=== PATIENT | female | born 1935 | race Caucasian/White ===

== ENCOUNTER 2019-03-27 15:37 | Emergency (ER) | payer MEDICARE, SELFPAY ==
[2019-03-27] VITALS (8 sets, daily range): BP systolic 116–141; BP diastolic 61–73; PULSE 96–127; RESP 20–22; TEMP 37.1; O2SAT 86–100
--- NOTE | ~2019-03-27 | CT_ITS ---
EXAMINATION: CTA chest PE protocol DATE: 03/27/2019 18:28 INDICATION: Shortness of breath and hypoxia TECHNIQUE: Computed tomography angiography (CTA) of the chest was performed with 100 mL Omnipaque-350 intravenous contrast timed to evaluate the pulmonary arteries. Coronal maximum intensity projection 3D-reconstructions were created by the technologist. The dose-length product (DLP) was 275.55 mGy-cm. Automated exposure control and iterative reconstruction technique were employed. COMPARISON: None. FINDINGS: The pulmonary arteries are well-opacified. There is a saddle pulmonary embolism as well as multiple emboli in the proximal pulmonary arterial branches of all lobes of the lungs. There is strai ghtening of the interventricular septum. There is mild atelectasis. No focal airspace opacity is iden tified. There is no pleural effusion or pneumothorax. Cardiomegaly is noted. There are surgical linder es of the left upper quadrant. There are healing bilateral rib fractures. There is moderate thoracic spondylosis. A triple lead cardiac pacemaker of the left chest wall ends with leads in expected loca tions. There are no pathologically enlarged thoracic lymph nodes. IMPRESSION: 1. Saddle embolism and bilateral central pulmonary emboli involving all lobes of the lungs. Associate d straightening of the interventricular septum could reflect right heart strain. These findings were discussed with Dr. Riley Lilly MD in the Emergency Department at 1840 hours on 03/27/2019. Reviewed, dictated and finalized at location A. [employer] IMPRESSION: 1. Saddle embolism and bilateral central pulmonary emboli involving all lobes o f the lungs. Associated straightening of the interventricular septum could refl ect right heart strain. These findings were discussed with Dr. Riley escoto MD in the Emergency Department at 1840 hours on 03/27/2019.
--- NOTE | ~2019-03-27 | XR_ITS ---
EXAMINATION: XR chest 2V DATE: 03/27/2019 16:49 INDICATION: Shortness of breath TECHNIQUE: AP and lateral views of the chest are obtained. COMPARISON: 12/25/2013 FINDINGS: The lungs are free of acute opacities. There is no pleural effusion or pneumothorax. The he art size is normal. A triple lead cardiac pacemaker of the left chest wall ends with leads in expecte d locations. Surgical changes are noted in the left upper quadrant. There is moderate thoracic spondy losis. IMPRESSION: 1. No acute cardiopulmonary abnormality. Reviewed, dictated and finalized at location A. [employer]
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
--- NOTE | 2019-03-27 16:27 | ECG_ITS ---
Measurements Intervals [place] Rate: 0 P: OR: 0 QRS: QRSD: 0 T: QT: 0 QTc: 0 Interpretive Statements ELECTRONIC VENTRICULAR PACEMAKER FUSION COMPLEX BASELINE ARTIFACT- I, II, III, AVR, AVL, AVF, V1-V6 NO FURTHER INTERPRETATION IS POSSIBLE ATYPICAL ECG Electronically Signed On 03-28-2019 8:25:30 [employer] by Ernie Albrecht D.O.
--- NOTE | 2019-03-27 16:41 | PC.NURSE ---
PT TO XRAY PER WHEELCHAIR.
[2019-03-27 17:15] LABS: Base Excess ABG -2.3 mmol/L (0-2); HCO3 ABG 20.5 mmol/L (23-29); Oxygen Content ABG 15.3 %vol (16.0-22.0); Oxygen Saturation ABG 90.8 % (95-97); Oxyhemoglobin 90.8 % (94-100); PCO2 ABG 29.4 mmHg (35-45); PO2 ABG 58.9 mmHg (75-85); pH ABG 7.46 (7.35-7.45)
[2019-03-27 17:19] LABS: Device NASAL CANNULA; Modified Allen's Test Pass; Site Drawn LEFT RADIAL
[2019-03-27 17:19] LABS: Basophils Absolute Auto 0.02 K/mm3 (0.00-0.10); Basophils Percent Auto 0.3 % (0.0-1.0); Eosinophils Absolute Auto 0.04 K/mm3 (0.02-0.50); Eosinophils Percent Auto 0.5 % (1.0-6.0); Hematocrit 34.5 % (35.0-42.0); Hemoglobin 11.4 g/dL (11.7-13.8); Immature Granulocyte Absolute 0.03 K/mm3 (0.00-0.00); Immature Granulocyte Percent A 0.4 % (0.0-0.0); Lymphocytes Absolute Auto 0.91 K/mm3 (1.10-4.50); Mean Corpuscular Hemoglobin 31.7 pg (27.0-31.0); Mean Corpuscular Volume 95.8 fL (78.0-102.0); Mean Platelet Volume 8.9 fl (9.2-11.8); Monocytes Absolute Auto 0.45 K/mm3 (0.10-0.90); Monocytes Percent Auto 5.9 % (2.0-11.0); Neutrophils Absolute Auto 6.1 K/mm3 (1.7-7.2); Neutrophils Percent Auto 80.9 % (50.0-70.0); Platelet Count Result 239 K/mm3 (150-420); Red Cell Distribution Width 13.2 % (11.6-14.4); White Blood Count 7.6 K/mm3 (4.8-10.8)
[2019-03-27 17:37] LABS: Alanine Aminotransferase 17 U/L (14-59); Albumin Level 3.3 g/dL (3.4-5.0); Alkaline Phosphatase 87 U/L (46-116); Anion Gap 14.3 mmol/L (7-16); Aspartate Amino Transferase 21 U/L (15-37); Bilirubin,Total 0.4 mg/dL (0.00-1.00); Blood Urea Nitrogen 31 mg/dL (7-18); Calcium 8.8 mg/dL (8.5-10.1); Carbon Dioxide 26 mmol/L (21-32); Chloride 104 mmol/L (98-108); Estimated CRCL calculation 31 ml/min; Estimated Glomerular Filt Rate 43; Glucose 119 mg/dL (70-99); Osmolality Calculated 299 mOsm/kg (285-295); Potassium 3.3 mmol/L (3.5-5.1); Sodium 141 mmol/L (136-145); Total Protein 7.8 g/dL (6.4-8.2)
[2019-03-27 17:40] LABS: Troponin I 0.12 ng/mL (0.00-0.056)
[2019-03-27] MEDS: IPRATROPIUM 0.5 MG/ALBUTEROL SULFATE 2.5 MG AMPUL.NEB 3 ML INHALATION (17:40)
[2019-03-27 17:41] LABS: Influenza Control Valid (Valid)
[2019-03-27 17:42] LABS: BNP 209 pg/mL (0-100); Partial Thromboplastin Time 26.8 SEC (22.3-31.6); Prothrombin Time 10.7 Seconds (9.64-11.0)
[2019-03-27 17:57] LABS: D Dimer 25.37 mg/L (0.19-0.50)
--- NOTE | 2019-03-27 18:15 | PC.NURSE ---
PT TO XRAY FOR CT
--- NOTE | 2019-03-27 18:24 | PC.NURSE ---
PT RETURNED TO ROOM
[2019-03-27 18:36] LABS: Appearance Urine Clear (Clear); Bilirubin Urine Negative (Negative); Color Urine Yellow (Yellow); Glucose Urine UA Negative (Negative); Ketones Urine Negative (Negative); Leukocyte Esterase Ur Trace LEU/UL (Negative); Nitrate Urine Negative (Negative); Protein Urine Negative (Negative); Urobilinogen Urine 0.2 mg/dL (0.2-1.0)
--- NOTE | 2019-03-27 18:38 | PC.NURSE ---
1810 INCREASED SHORTNESS OF BREATH WITH GETTING UP TO COMMODE. 1820 IMPROVED BREATHING PER PT. DRINK OF WATER GIVEN PER REQUEST.
[2019-03-27 18:41] LABS: Add Urine Microscopic? YES; Bacteria Urine 1+ /hpf; Blood Urine Trace-Intact (Negative); RBC Urine 0-2 /hpf (0-2); Squamous Epithelial Cell Urine Few /hpf (Few); WBC Urine 0-3 /hpf (0-3)
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
--- NOTE | 2019-03-27 18:48 | PC.NURSE ---
CALL TO [facility], SPOKE WITH TYLER. WILL CALL BACK.
[2019-03-27] MEDS: ENOXAPARIN 1 MG/KG 75 MG SUB-Q (20:00)
[2019-03-27 20:21] LABS: Troponin I 0.29 ng/mL (0.00-0.056)
--- NOTE | 2019-03-27 20:26 | PC.NURSE ---
PT TO TRANSFER TO [facility] ,
--- NOTE | 2019-03-27 20:42 | PC.NURSE ---
[facility] CALLED FOR TRANSFER, DAUGHTER NOTIFIED OF ROOM LOCATION AT [facility]. PT REQUEST TO GO TO [facility].
--- NOTE | 2019-03-27 21:03 | PC.NURSE ---
[facility] HERE REPORT TO MARTINE, PT LOADED TO COT. ALERT AND STABLE.
== END 2019-03-27 21:03 | disposition short-term general hospital (02) ==
PROVIDERS: Emergency Provider Emergency Medicine; PCP Family Medicine
DX: I26.99 Other pulmonary embolism without acute cor pulmonale (principal); R09.02 Hypoxemia; R79.9 Abnormal finding of blood chemistry, unspecified; I48.91 Unspecified atrial fibrillation; K21.9 Gastro-esophageal reflux disease without esophagitis; E78.5 Hyperlipidemia, unspecified; I10 Essential (primary) hypertension; E03.9 Hypothyroidism, unspecified; Z87.891 Personal history of nicotine dependence
CPT/HCPCS: 36415; 36600; 71046; 71275; 80053; 81001; 82805; 83880; 84484; 85025; 85380; 85610; 85730; 87040; 87804; 93005; 94640; 96372; 99285; J1650; Q9965

== ENCOUNTER 2019-04-18 09:55 | Outpatient (RCR) | payer MEDICARE, SELFPAY ==
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
--- NOTE | 2019-05-10 16:55 | PCPTNOTE ---
05/10/19-pt cancelled apt, stating she has to have surgery on her ankle.-HM
--- NOTE | 2019-06-21 10:33 | PCPTNOTE ---
patient had surgery on the ankle in May. she has been at the [facility] in [place], [place] since. she just got cast removed yesterday and is 50% wb. she sees her md on the and is hoping to get home. She will call us if she gets orders for therapy. JUVENAL
== END 2019-05-04 08:14 | disposition home or self-care (01) ==
LOC: CHSPT 09:55
DX: S82.841A Displaced bimalleolar fracture of right lower leg, initial encounter for closed fracture (principal); M19.071 Primary osteoarthritis, right ankle and foot; S92.521A Displaced fracture of middle phalanx of right lesser toe(s), initial encounter for closed fracture
CPT/HCPCS: 97016; 97110; 97161

== ENCOUNTER 2019-07-13 13:07 | Outpatient (RCR) | payer MEDICARE, SELFPAY ==
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
== END 2019-09-15 10:30 | disposition home or self-care (01) ==
LOC: CHSPT 13:07
DX: S82.51XD Displaced fracture of medial malleolus of right tibia, subsequent encounter for closed fracture with routine healing (principal)
CPT/HCPCS: 97110; 97112; 97140; 97161; 97530

== ENCOUNTER 2019-08-19 11:14 | Outpatient (CLI) | payer MEDICARE, SELFPAY ==
[2019-08-19 12:59] LABS: Thyroid Stimulating Hormone Reflex 4.04 u/IU/mL (0.36-3.74)
[2019-08-19 13:14] LABS: Free T4 Free Thyroxine Reflex 1.04 ng/dL (0.76-1.46)
== END 2019-08-19 11:15 | disposition home or self-care (01) ==
LOC: CHSLAB 11:16
PROVIDERS: PCP Family Medicine; Visit Provider Family Medicine
DX: I48.91 Unspecified atrial fibrillation (principal)
CPT/HCPCS: 36415; 84439; 84443

== ENCOUNTER 2019-11-14 01:15 | Outpatient (CLI) | payer MEDICARE, SELFPAY ==
[2019-11-14 18:12] LABS: SARS-CoV-2 RNA PCR Negative
== END 2019-11-14 01:16 | disposition home or self-care (01) ==
LOC: ANHCOVIDDT 01:15
PROVIDERS: PCP Family Medicine; Visit Provider Internal Medicine Gastroenterology
DX: Z20.828 Contact with and (suspected) exposure to other viral communicable diseases (principal)
CPT/HCPCS: 87635; C9803; U0003

== ENCOUNTER 2019-11-16 02:32 | Day surgery (SDC) | payer MEDICARE, SELFPAY ==
[2019-11-09 14:28] VITALS: BMI 29.6
--- NOTE | 2019-11-16 07:21 | WPDANESEPPF ---
Anes - Initial Pre Proc Eval Procedure: Operation Date: 11/16/19 10:15 Proposed Procedures p Esophagogastroduodenoscopy - Fredy Aamya MD Date/Time: 11/16/19 07:21 Surgeon: Fredy Amaya MD Pre Op Diagnosis: GERD, Nausea, Vomiting Patient Data Age: 84 Gender: F Height: 1.63 m Weight: 78.3 kg Allergies Allergy/AdvReac Type Severity Reaction Status Date / Time acetaminophen [Vicodin] Allergy Intermediate Unknown Verified 11/16/19 09:26 levofloxacin Allergy Intermediate Unknown Verified 11/16/19 09:26 oxycodone Allergy Intermediate Unknown Verified 11/16/19 09:26 Penicillins Allergy Intermediate Unknown Verified 11/16/19 09:26 hydrocodone AdvReac Severe NAUSEA AND Verified 11/16/19 09:26 VOMITING Home Medications Medication Instructions Recorded Confirmed Type Centrum Silver Women 1 cap PO DAILY 03/27/19 11/09/19 History aspirin [Aspirin Low Dose] 81 mg PO DAILY 03/27/19 11/09/19 History metoprolol succinate 50 mg PO DAILY 03/27/19 11/16/19 History rosuvastatin 40 mg PO DAILY 03/27/19 11/09/19 History triamterene-hydrochlorothiazid 1 cap PO DAILY 03/27/19 11/16/19 History apixaban 5 mg tablet 5 mg PO BID 08/19/19 11/16/19 History pantoprazole 40 mg tablet,delayed 40 mg PO QAM 42 Days #42 tablet 10/31/19 11/09/19 Rx release levothyroxine 100 mcg tablet See Rx Instructions .ROUTE 11/07/19 11/16/19 Rx .COMPLEX #90 tablet Patient hx anesthesia problems: none Family hx anesthesia problems: none PMFSH Social History Social History Smoking status: Former smoker Tobacco type: cigarettes Smoking end date: 02/10/72 Substance use: former Substance use type: does not use Other substance usage details: QUIT SMOKING IN 1972. Living arrangements: with family Gender identity (if verbalized by the patient): Female Sexual Orientation (if Verbalized by the Patient): Straight or Heterosexual Spiritual care concerns: No Anes - Eval Final PreProcedure Day of Procedure 11/16/19 07:21 Patient weight: overweight Heart: regular rate and rhythm Lungs: clear to auscultation and normal air movement Airway: Mallampati scale class III Neurological: alert and oriented Last oral intake: >/= 8 hours ASA classification: IV Emergent: no Anesthetic plan: proceed Anesthesia type and monitoring: general GIVS and standard monitoring Informed Consent: The patient's anesthetic plan and its attendant risks and benefits were discussed with the patient/family/POA. Questions were solicited and answers provided to the satisfaction of the patient/family/POA.
[2019-11-16 09:27] VITALS: BP 146/90; PULSE 72; RESP 16; TEMP 36.6; O2SAT 99; BMI 29.5
[2019-11-16] MEDS: LACTATED RINGERS 1,000 ML 150 ML IV CONT (09:44)
--- NOTE | 2019-11-16 10:44 | WPDHPUPDATE1 ---
History and Physical Update Update Date/Time: 11/16/19 10:44 History and Physical has been reviewed, including an updated exam of the patient. There are NO changes in the patient's condition. Risks, benefits, and alternatives have been discussed and questions answered. Patient agrees to proceed with procedure.
[2019-11-16 10:46] VITALS: BP 139/71; PULSE 69; RESP 27; O2SAT 99
[2019-11-16 10:56] VITALS: BP 130/76; PULSE 63; RESP 24; O2SAT 99
[2019-11-16 11:06] VITALS: BP 154/83; PULSE 64; RESP 20; O2SAT 99
== END 2019-11-16 11:20 | disposition home or self-care (01) ==
PROVIDERS: PCP Family Medicine; Visit Provider Internal Medicine Gastroenterology
PROC: 0DJ08ZZ Inspection of Upper Intestinal Tract, Via Natural or Artificial Opening Endoscopic (ICD-10-PCS; CPT 43235; principal; 2019-11-16 10:15)
DX: K21.00 Gastro-esophageal reflux disease with esophagitis, without bleeding (principal); K44.9 Diaphragmatic hernia without obstruction or gangrene; K29.50 Unspecified chronic gastritis without bleeding; K31.2 Hourglass stricture and stenosis of stomach; Z98.84 Bariatric surgery status; I48.91 Unspecified atrial fibrillation; I10 Essential (primary) hypertension; E78.5 Hyperlipidemia, unspecified; E03.9 Hypothyroidism, unspecified; Z86.73 Personal history of transient ischemic attack (TIA), and cerebral infarction without residual deficits; Z79.01 Long term (current) use of anticoagulants; Z79.82 Long term (current) use of aspirin; Z86.711 Personal history of pulmonary embolism; Z87.891 Personal history of nicotine dependence
CPT/HCPCS: 43245; 43239; 88305; C1726; J2704; J7120

== ENCOUNTER 2020-01-16 13:49 | Outpatient (CLI) | payer MEDICARE, SELFPAY ==
--- NOTE | ~2020-01-16 | XR_ITS ---
EXAMINATION: XR knee LT 3V DATE: 01/16/2020 14:05 INDICATION: Left knee pain. TECHNIQUE: 3 views of left knee were obtained. COMPARISON: Left knee radiograph 07/13/18 FINDINGS: There is a total left knee arthroplasty without patellar resurfacing in near-anatomic align ment. No fracture. No periprosthetic lucency to suggest loosening or infection. There is a small knee joint effusion. IMPRESSION: 1. Total left knee arthroplasty in near-anatomic alignment. 2. Small left knee joint effusion. Reviewed, dictated and finalized at location B. [employer]
== END 2020-01-16 13:50 | disposition home or self-care (01) ==
PROVIDERS: PCP Family Medicine; Visit Provider Family Medicine
DX: M25.562 Pain in left knee (principal)
CPT/HCPCS: 73562

== ENCOUNTER 2020-01-23 07:48 | Outpatient (RCR) | payer MEDICARE, SELFPAY ==
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
== END 2020-03-06 09:43 | disposition home or self-care (01) ==
LOC: CHSPT 07:48
PROVIDERS: PCP Family Medicine; Visit Provider Family Medicine
DX: M54.5 Low back pain (principal); G89.29 Other chronic pain; M79.671 Pain in right foot
CPT/HCPCS: 97110; 97112; 97140; 97162; 97530

== ENCOUNTER 2020-06-14 10:21 | Outpatient (NON) | payer MEDICARE, SELFPAY | END 2020-06-14 10:22 | disposition home or self-care (01) | PROVIDERS: PCP Family Medicine; Visit Provider Family Medicine | DX: N39.0 Urinary tract infection, site not specified (principal) | CPT/HCPCS: 87086; 87088; 87147; 87186 ==

== ENCOUNTER 2020-06-26 15:51 | Outpatient (CLI) | payer MEDICARE, SELFPAY ==
[2020-06-26 16:09] LABS: Hematocrit 39.3 % (35.0-42.0); Hemoglobin 12.3 g/dL (11.7-13.8); Mean Corpuscular HGB Conc 31.3 g/dL (32.0-36.0); Mean Corpuscular Volume 89.3 fL (78.0-102.0); Mean Platelet Volume 8.6 fl (9.2-11.8); Platelet Count Result 210 K/mm3 (150-420); Red Cell Distribution Width 16.7 % (11.6-14.4); White Blood Count 4.8 K/mm3 (4.8-10.8)
[2020-06-26 16:34] LABS: Hemoglobin A1C 5.9 % (<5.7)
[2020-06-26 17:22] LABS: Alanine Aminotransferase 19 U/L (14-59); Albumin Level 3.3 g/dL (3.4-5.0); Alkaline Phosphatase 95 U/L (46-116); Anion Gap 9 mmol/L (8-16); Aspartate Amino Transferase 21 U/L (15-37); Bilirubin,Total 0.4 mg/dL (0.00-1.00); Blood Urea Nitrogen 31 mg/dL (7-18); Carbon Dioxide 28 mmol/L (21-32); Chloride 103 mmol/L (98-108); Estimated Glomerular Filt Rate 45; Ferritin 24 ng/mL (8-252); Glucose 89 mg/dL (70-99); Osmolality Calculated 295 mOsm/kg (285-295); Potassium 4.2 mmol/L (3.5-5.1); Sodium 140 mmol/L (136-145); Total Protein 7.3 g/dL (6.4-8.2); Vitamin B12 708 pg/mL (193-986)
[2020-06-26 17:23] LABS: Folic Acid > 20.0 ng/mL (8.6->20); Thyroid Stimulating Hormone Reflex 0.88 u/IU/mL (0.36-3.74)
== END 2020-06-26 15:52 | disposition home or self-care (01) ==
LOC: CHSLAB 15:53
PROVIDERS: PCP Family Medicine; Visit Provider Family Medicine
DX: E53.8 Deficiency of other specified B group vitamins (principal); G62.9 Polyneuropathy, unspecified; E11.9 Type 2 diabetes mellitus without complications
CPT/HCPCS: 36415; 80053; 82607; 82728; 82746; 83036; 84207; 84443; 85027

== ENCOUNTER → 2020-11-26 11:40 | Outpatient (CLI) | payer MEDICARE, SELFPAY ==
--- NOTE | ~2020-11-26 | CT_ITS ---
EXAMINATION: CT lumbar spine wo con DATE: 11/26/2020 12:12 INDICATION: Lumbar radiculopathy. TECHNIQUE: Computed tomography (CT) of the lumbar spine was performed without intravenous contrast. A utomated exposure control and iterative reconstruction technique were employed. The dose-length produ ct was 751.09 mGy-cm. COMPARISON: CT lumbar spine 10/29/2018 FINDINGS: There is 5 degrees dextrocurvature of lumbar spine. There is 3 mm retrolisthesis of L1 on L 2 and L2 on L3 and 3 mm anterolisthesis of L4 on L5. Vertebral body heights are normal. There is mode rately decreased disc height at L1-L2 and mildly decreased disc height from L2-L3 through L5-S1. The following disc levels are specifically discussed: L1-L2: The disc is bulging. There is moderate bilateral facet joint osteoarthritis. There is mild rig ht and moderate left neural foraminal stenosis. There is mild central canal stenosis. L2-L3: The disc is bulging. There is mild bilateral facet joint osteoarthritis. There is mild bilater al neural foraminal stenosis. There is mild central canal stenosis. L3-L4: The disc is bulging. There is moderate bilateral facet joint osteoarthritis. There is mild rig ht and moderate left neural foraminal stenosis. There is mild central canal stenosis. L4-L5: The disc is bulging. There is severe bilateral facet joint osteoarthritis. There is mild bilat eral neural foraminal stenosis. There is moderate central canal stenosis. L5-S1: The disc is bulging. There is severe bilateral facet joint osteoarthritis. There is mild bilat eral neural foraminal stenosis. There is mild central canal stenosis. IMPRESSION: 1. Moderate lumbar spondylosis, stable from 10/29/2018. Reviewed, dictated and finalized at location A.
== END ==
PROVIDERS: PCP Family Medicine; Visit Provider Nurse Practitioner Adult Health
DX: M47.26 Other spondylosis with radiculopathy, lumbar region (principal)
CPT/HCPCS: 72131

== ENCOUNTER 2020-11-26 12:43 | Emergency (ER) | payer MEDICARE, SELFPAY ==
--- NOTE | ~2020-11-26 | CT_ITS ---
EXAMINATION: CT abdomen pelvis w con DATE: 11/26/2020 14:54 INDICATION: Abdominal pain, nausea, vomiting and reflux. TECHNIQUE: Computed tomography (CT) of the abdomen and pelvis was performed with 100 mL Omnipaque-350 intravenous contrast. Automated exposure control and iterative reconstruction technique were employe d. The dose-length product was 686.85 mGy-cm. COMPARISON: None FINDINGS: Mild dependent atelectasis in the posteromedial right lower lobe. Additional mild reticular opacities at the left lung base and favor atelectasis over pulmonary edema or pneumonia. Mild cardiomegaly. Th ree lead pacemaker/AICD seen with lead tips at the right atrial appendage, apex of the right ventricl e and in a coronary vein along the lateral wall of the left ventricle having traversed the coronary s inus. Aortic valve calcification. No pericardial or pleural effusion. Small sliding-type hiatal herni a with wall thickening in the fluid-filled distal esophagus consistent with reflux. Multiple surgical clips in the left upper quadrant surrounding the stomach calcified hepatic nodule consistent with ol d granulomatous disease. Multiple calcified gallstones at the neck of the normal-appearing gallbladde r. Spleen, pancreas and bilateral adrenal glands are normal. There are multiple small bilateral low-a ttenuation renal cysts. There is a larger 1.8 cm intermediate attenuation lesion in the left kidney e quivocal for resolution/hemorrhagic cyst versus solid neoplasm. There is mild to moderate colonic div erticulosis with a sigmoid predominance. There is no adjacent inflammatory change to suggest diverti culitis. No bowel obstruction. The appendix is not visualized. No pericecal inflammatory change to hartmann ggest acute appendicitis. Bladder is normal. The uterus is not identified and has likely been surgica lly resected. No free intraperitoneal gas or fluid. No pathologically enlarged abdominal or pelvic ly mphadenopathy. Moderate to severe thoracolumbar spondylosis. Chronic mild anterior wedging at T11 and T12. IMPRESSION: 1. Small sliding-type hiatal hernia with wall thickening and fluid in the distal esophagus consistent with provided history of reflux and likely secondary esophagitis. 2. 1.8 cm indeterminate left renal lesion which could represent a proteinaceous/hemorrhagic cyst or s olid enhancing renal cell carcinoma. If patient would be a [facility] would recommend further evaluation with pre and postcontrast MRI or CT . 3. Diverticulosis.. Reviewed, dictated and finalized at location A. IMPRESSION: 1. Small sliding-type hiatal hernia with wall thickening and fluid in the dista l esophagus consistent with provided history of reflux and likely secondary eso phagitis. 2. 1.8 cm indeterminate left renal lesion which could represent a proteinaceous /hemorrhagic cyst or solid enhancing renal cell carcinoma. If patient would be a surgical candidate in the setting of malignancy would recommend further evalu ation with pre and postcontrast MRI or CT . 3. Diverticulosis..
--- NOTE | 2020-11-26 13:18 | ECG_ITS ---
Measurements Intervals [place] Rate: 84 P: 47 HI: 177 QRS: 123 QRSD: 132 T: 77 QT: 422 QTc: 501 Interpretive Statements ATRIAL SENSE- ELECTRONIC VENTRICULAR PACEMAKER BASELINE ARTIFACT- I, II, AVR NO FURTHER INTERPRETATION IS POSSIBLE ATYPICAL ECG Electronically Signed On 11-26-2020 14:36:43 CDT by Ernie Albrecht D.O.
[2020-11-26 13:40] LABS: Basophils Absolute Auto 0.02 K/mm3 (0.00-0.10); Basophils Percent Auto 0.3 % (0.0-1.0); Hematocrit 37.6 % (35.0-42.0); Hemoglobin 12.1 g/dL (11.7-13.8); Immature Granulocyte Absolute 0.04 K/mm3 (0.00-0.00); Immature Granulocyte Percent A 0.5 % (0.0-0.0); Lymphocytes Absolute Auto 0.65 K/mm3 (1.10-4.50); Lymphocytes Percent Auto 8.1 % (18.0-42.0); Mean Corpuscular HGB Conc 32.2 g/dL (32.0-36.0); Mean Corpuscular Hemoglobin 30.6 pg (27.0-31.0); Mean Corpuscular Volume 95.2 fL (78.0-102.0); Mean Platelet Volume 8.3 fl (9.2-11.8); Monocytes Absolute Auto 0.35 K/mm3 (0.10-0.90); Monocytes Percent Auto 4.4 % (2.0-11.0); Neutrophils Absolute Auto 6.9 K/mm3 (1.7-7.2); Neutrophils Percent Auto 86.7 % (50.0-70.0); Platelet Count Result 183 K/mm3 (150-420); Red Blood Count 3.95 M/mm3 (4.20-5.40); Red Cell Distribution Width 14.2 % (11.6-14.4)
[2020-11-26 13:53] LABS: INR 1.1; Partial Thromboplastin Time 29.4 SEC (23.90-30.70); Prothrombin Time 11.8 Seconds (9.50-12.10)
[2020-11-26 13:57] LABS: Alanine Aminotransferase 21 U/L (14-59); Albumin Level 3.3 g/dL (3.4-5.0); Alkaline Phosphatase 101 U/L (46-116); Anion Gap 12 mmol/L (8-16); Aspartate Amino Transferase 18 U/L (15-37); Bilirubin,Total 0.7 mg/dL (0.00-1.00); Blood Urea Nitrogen 24 mg/dL (7-18); Carbon Dioxide 27 mmol/L (21-32); Chloride 102 mmol/L (98-108); Estimated Glomerular Filt Rate 46; Glucose 99 mg/dL (70-99); Lipase 71 U/L (73-393); Osmolality Calculated 296 mOsm/kg (285-295); Potassium 3.7 mmol/L (3.5-5.1); Sodium 141 mmol/L (136-145); Total Protein 7.6 g/dL (6.4-8.2); Troponin I 9.1 ng/L (0.00-60.4)
[2020-11-26 14:00] LABS: Lactic Acid Reflex 1.1 mmol/L (0.4-2.0)
[2020-11-26] MEDS: SODIUM CHLORIDE 0.9% IV 1,000 ML 999 ML IV CONT (14:08)
[2020-11-26] MEDS: PANTOPRAZOLE SODIUM IV 40 MG VIAL IV PUSH (14:08)
[2020-11-26 14:30] VITALS: BP 132/78; PULSE 77; RESP 17; O2SAT 93
[2020-11-26 14:48] VITALS: BP 122/82; PULSE 95; RESP 14; TEMP 36.4; O2SAT 97
--- NOTE | 2020-11-26 15:35 | ED.NAVMDI ---
HPI - Nausea/Vomiting/Diarrhea General Chief complaint: Nausea/Vomiting/Diarrhea Stated complaint: Stomach issues/Vomiting Source: patient Mode of arrival: ambulatory Limitations: no limitations History of Present Illness HPI Narrative: patient presents today with some history of nausea with episodes of vomiting last night, with some some epigastric pain currently the patient is asymptomatic no nausea vomiting has not been nauseated or had any episodes of vomiting since last night called her GI doctor that told her to come to the emergency department. The patient is afebrile with no shortness of breath no chest pain from currently no abdominal pain no diarrhea constipation no fever chills. MD elicited complaint: nausea, vomiting and abdominal pain Onset (ago): day(s) Description of diarrhea: semi-solid Related Data Home Medications Medication Instructions Recorded Confirmed aspirin [Aspirin Low Dose] 81 mg PO DAILY 03/27/19 11/09/19 metoprolol succinate 50 mg PO DAILY 03/27/19 11/16/19 rosuvastatin 40 mg PO DAILY 03/27/19 11/09/19 apixaban 2.5 mg tablet 2.5 mg PO BID 06/25/20 furosemide 20 mg tablet 20 mg PO QAM 06/25/20 spironolactone 25 mg tablet 12.5 mg PO DAILY tablet 06/25/20 amiodarone 200 mg PO DAILY 11/26/20 11/26/20 loteprednol etabonate 1 drp RIGHT EYE QID 11/26/20 11/26/20 sacubitril-valsartan [Entresto] 1 tablet PO BID 11/26/20 11/26/20 Allergies Allergy/AdvReac Type Severity Reaction Status Date / Time acetaminophen [Vicodin] Allergy Intermediate Unknown Verified 11/14/20 07:54 oxycodone Allergy Intermediate Unknown Verified 11/14/20 07:54 Penicillins Allergy Intermediate Unknown Verified 11/14/20 07:54 hydrocodone AdvReac Severe NAUSEA AND Verified 11/14/20 07:54 VOMITING Review of Systems Review of Systems: All systems reviewed & are unremarkable except as noted in HPI and below PMFSH Past Medical History Medical History Acute intra-cranial hemorrhage Atrial fibrillation Complications of gastric bypass surgery GERD (gastroesophageal reflux disease) History of pulmonary embolism Hyperlipidemia Hypertension Hypothyroidism TIA (transient ischemic attack) Surgical History Surgical History AICD present, double chamber H/O craniotomy History of left knee replacement S/P left atrial appendage ligation Status post biventricular pacemaker Family History Family History Father Acute myocardial infarction Mother Acute myocardial infarction Other Cerebrovascular accident Diabetes mellitus Family history of arthritis Family history of heart disease in male family member before age 55 Social History Social History Smoking status: Former smoker Tobacco type: cigarettes Smoking end date: 02/10/72 Substance use: never Other substance usage details: QUIT SMOKING IN 1972. Gender identity (if verbalized by the patient): Female Sexual Orientation (if Verbalized by the Patient): Straight or Heterosexual Spiritual care concerns: No Exam Const: General: no acute distress Orientation/consciousness: patient oriented x3 HENMT: Head: normal to inspection Eyes: Pupils: Equal, round and reactive pupils present EOM: EOMs intact bilaterally Neck: Neck: normal visual inspection, no lymphadenopathy and no meningeal signs Chest: Chest palpation & inspection: normal inspection of the chest Resp: Effort & Inspection: normal respiratory effort Cardio: Rate: regular rate Rhythm: regular rhythm : General: Yes no CVA tenderness Urinary Catheter: Urinary Catheter: patent and draining Skin: General skin exam: normal color Rashes: no rashes Neuro: General: patient oriented x3 and moves all extremities Extrem: General: normal to inspection and no pedal cyrus
[2020-11-26 16:04] VITALS: BP 142/80; PULSE 83; RESP 17; O2SAT 96
== END 2020-11-26 16:07 | disposition home or self-care (01) ==
PROVIDERS: Emergency Provider Emergency Medicine; PCP Family Medicine
DX: K21.00 Gastro-esophageal reflux disease with esophagitis, without bleeding (principal); I48.91 Unspecified atrial fibrillation; E78.5 Hyperlipidemia, unspecified; I10 Essential (primary) hypertension; E03.9 Hypothyroidism, unspecified; Z87.891 Personal history of nicotine dependence
CPT/HCPCS: 36415; 74177; 80053; 83605; 83690; 84484; 85025; 85610; 85730; 93005; 96361; 96374; 99283; 99284; C9113; J7030; Q9967

== ENCOUNTER 2020-11-27 14:00 | Outpatient (CLI) | payer MEDICARE, SELFPAY ==
--- NOTE | ~2020-11-27 | CT_ITS ---
EXAMINATION: CT thoracic spine wo con DATE: 11/27/2020 14:29 INDICATION: Chronic back pain. TECHNIQUE: Computed tomography (CT) of the thoracic spine was performed without intravenous contrast. Automated exposure control and iterative reconstruction technique were employed. The dose-length pro duct was 714.89 mGy-cm. COMPARISON: Chest CT 03/27/2019 FINDINGS: There is an 8 mm cyst in left kidney. There are surgical clips in left upper quadrant of th e abdomen. There is 4 degrees dextrocurvature of thoracic spine. There is mild chronic anterior wedgi ng of T7, T8, T9, T10, T11, and T12 vertebral bodies. There is severely decreased disc height at T7-T 8, T8-T9, T10-T11, and T11-T12. There is mildly decreased disc height at other levels. There is multi level facet joint osteoarthritis, severe at many levels. There is mild neural foraminal stenosis at m ultiple levels bilaterally. There is moderate neural foraminal stenosis bilaterally at T9-T10. At T7- T8, there is a large central extrusion with mild central canal stenosis. IMPRESSION: 1. Severe thoracic spondylosis. Reviewed, dictated and finalized at location A.
== END 2020-11-27 14:01 | disposition home or self-care (01) ==
LOC: CHSIMG 14:01
PROVIDERS: PCP Family Medicine; Visit Provider Nurse Practitioner Adult Health
DX: M54.6 Pain in thoracic spine (principal)
CPT/HCPCS: 72128

== ENCOUNTER 2021-01-30 08:22 | Outpatient (CLI) | payer MEDICARE, SELFPAY ==
--- NOTE | ~2021-01-30 | CT_ITS ---
EXAMINATION: CT abdomen pelvis wo/w con DATE: 01/30/2021 09:22 INDICATION: 1.8 cm indeterminate left renal lesion reported on 11/26/2020 CT abdomen pelvis examinati on TECHNIQUE: Computed tomography (CT) of the abdomen and pelvis was performed without and subsequently with 100 cc Omnipaque 350 intravenous contrast. Automated exposure control and iterative reconstructi on technique were employed. Exam dose: 1509.03 mGy-cm total exam DLP. COMPARISON: 11/26/2020 CT abdomen pelvis noncontrast examination 06/24/2014 CT abdomen pelvis with IV contrast material FINDINGS: Cardiomegaly. Right atrial and right ventricular and coronary sinus pacemaker leads. No per icardial or pleural effusion. There is patchy infiltrate and some scattered focal areas of consolidation in the left lung base and minimally at the right lung base. Status post cholecystectomy. No hepatic, splenic, pancreatic, and adrenal space-occupying mass lesion . No bile duct or pancreatic duct dilatation. There is atherosclerotic calcification but normal caliber of the abdominal aorta. There is calcificat ion at the origins of both renal arteries. No intraperitoneal or retroperitoneal or pelvic mass lesio n or adenopathy or ascites is noted. There is an approximately 1.6 x 1.7 cm partially exophytic mass at the posterolateral lower pole of t he left kidney, with attenuation of approximately 44 Hounsfield units on noncontrast examination and 47 Hounsfield units on the post 7 contrast examination. Hemorrhagic or proteinaceous cyst is suspecte d. Consider [address] follow-up examination without and with IV contrast material. There are multiple scattered bilateral renal probable cysts, more numerous on the left. No urinary tract calculus or hydroureteronephrosis. There is mild diffuse thickening of the urinary b ladder wall. No intraluminal bladder lesion is noted. Status post hysterectomy. Fluid containing hiatal hernia. There is fluid in the distal esophagus. Diverticulosis of left and ri ght colon; no CT evidence of diverticulitis. The appendix is not visualized and is likely resected. N o bowel obstruction, bowel wall thickening, pneumatosis or intraperitoneal free air is detected. Diffuse osteopenia. Degenerative changes of the thoracic and lumbar spine. IMPRESSION: Probable 1.7 cm hemorrhagic or proteinaceous cysts of the lower pole of the left kidney; consider [address] examination Multiple bilateral renal cysts Fluid in distal esophagus and hiatal hernia Status post cholecystectomy and appendectomy Diverticulosis of left and right colon; no CT evidence of diverticulitis Status post hysterectomy Cardiomegaly Patchy infiltrate and small focal areas of consolidation at the lung bases, left greater than right Reviewed, dictated and finalized at [facility]. Reviewed, dictated and finalized at location B. FINISHER IMPRESSION: Probable 1.7 cm hemorrhagic or proteinaceous cysts of the lower po le of the left kidney; consider [address] examination Multiple bilateral renal cysts Fluid in distal esophagus and hiatal hernia Status post cholecystectomy and appendectomy Diverticulosis of left and right colon; no CT evidence of diverticulitis Status post hysterectomy Cardiomegaly Patchy infiltrate and small focal areas of consolidation at the lung bases, lef t greater than right
[2021-01-30 08:45] LABS: Estimated Glomerular Filt Rate 42
== END 2021-01-30 08:23 | disposition home or self-care (01) ==
LOC: CHSIMG 08:24
PROVIDERS: PCP Family Medicine; Visit Provider Family Medicine
DX: R93.429 Abnormal radiologic findings on diagnostic imaging of unspecified kidney (principal)
CPT/HCPCS: 74178; Q9967

== ENCOUNTER 2021-05-03 00:26 | Day surgery (SDC) | payer MEDICARE, SELFPAY ==
[2021-04-23 13:49] VITALS: BMI 31.5
[2021-05-03 09:53] VITALS: BP 118/80; PULSE 74; RESP 16; TEMP 35.8; O2SAT 97; BMI 32.1
--- NOTE | 2021-05-03 10:09 | WPDANESEPPF ---
Anes - Initial Pre Proc Eval Procedure: Operation Date: 05/03/21 11:00 Proposed Procedures p Esophagogastroduodenoscopy - Fredy Amaya MD Date/Time: 05/03/21 10:09 Surgeon: Fredy Amaya MD Pre Op Diagnosis: vomiting Patient Data Age: 86 Gender: F Height: 1.61 m Weight: 82 kg Allergies Allergy/AdvReac Type Severity Reaction Status Date / Time oxycodone Allergy Severe Gastrointestinal Verified 05/03/21 10:06 Upset Penicillins Allergy Severe Anaphylactic Verified 05/03/21 10:06 Shock acetaminophen [Vicodin] AdvReac Severe Gastrointestinal Verified 05/03/21 10:06 Upset hydrocodone AdvReac Severe NAUSEA AND Verified 05/03/21 10:06 VOMITING Home Medications Medication Instructions Recorded Confirmed Type aspirin [Aspirin Low Dose] 81 mg PO DAILY 03/27/19 05/03/21 History metoprolol succinate 50 mg PO DAILY 03/27/19 05/03/21 History rosuvastatin 40 mg PO DAILY 03/27/19 05/03/21 History furosemide 20 mg tablet 20 mg PO QAM 06/25/20 05/03/21 History spironolactone 25 mg tablet 12.5 mg PO DAILY tablet 06/25/20 05/03/21 History pantoprazole 40 mg tablet,delayed 40 mg PO QAM #30 tablet 06/26/20 05/03/21 Rx release sacubitril-valsartan [Entresto] 1 tablet PO BID 11/26/20 05/03/21 History apixaban [Eliquis] 5 mg PO BID 04/23/21 05/03/21 History pregabalin 25 mg PO TID 04/23/21 05/03/21 History levothyroxine 100 mcg tablet See Rx Instructions .ROUTE 04/25/21 05/03/21 Rx .COMPLEX #90 tablet Patient hx anesthesia problems: none Family hx anesthesia problems: none Results Review: All pre-operative results and documents have been reviewed as part of the pre-operative evaluation. [facility] Past Medical History Medical History (Updated 05/03/21 @ 10:09 by Maco Oh DO) Acute intra-cranial hemorrhage Atrial fibrillation CHF (congestive heart failure) Complications of gastric bypass surgery DVT (deep venous thrombosis) GERD (gastroesophageal reflux disease) History of pulmonary embolism Hyperlipidemia Hypertension Hypothyroidism Pacemaker TIA (transient ischemic attack) Surgical History Surgical History AICD present, double chamber H/O craniotomy History of left knee replacement S/P left atrial appendage ligation Status post biventricular pacemaker Family History Family History Father Acute myocardial infarction Mother Acute myocardial infarction Other Cerebrovascular accident Diabetes mellitus Family history of arthritis Family history of heart disease in male family member before age 55 Social History Social History Smoking packs per day: 1 Smoking cigarettes per day: 20.0 Years smoked: 10 Smoking pack-years: 10.00 Smoking status: Former smoker Tobacco type: cigarettes Smoking end date: 02/10/72 Alcohol intake: former Substance use: never Substance use type: does not use Other substance usage details: QUIT SMOKING IN 1972. Living arrangements: alone Gender identity (if verbalized by the patient): Female Sexual Orientation (if Verbalized by the Patient): Straight or Heterosexual Spiritual care concerns: No Anes - Eval Final PreProcedure Day of Procedure 05/03/21 10:09 Patient weight: obese Heart: regular rate and rhythm Lungs: clear to auscultation and normal air movement Airway: Mallampati scale class II Neurological: alert and oriented Last oral intake: >/= 8 hours ASA classification: IV Emergent: no Anesthetic plan: proceed Anesthesia type and monitoring: general GIVS and standard monitoring Results Review: All pre-operative results and documents have been reviewed as part of the pre-operative evaluation. Informed Consent: The patient's anesthetic plan and its attendant risks and benefits were discussed with maryse
[2021-05-03] MEDS: LACTATED RINGERS 1,000 ML 150 ML IV CONT (10:20)
--- NOTE | 2021-05-03 10:43 | PM.HPGS ---
History of Present Illness History of Present Illness Consent: Risks, benefits, and alternatives have been discussed and questions answered. Patient agrees to proceed with procedure. Chief complaint: vomiting Narrative: Sera Shaffer is a 86 year old female with bariatric surgery, last EGD 2019 noted non-obstructive narrowing in proximal stomach with some retained food that was dilated up to 20 mm balloon, she says that helped some. Now again with fullness after eating, sometimes vomiting food that ate hours or even days prior. Still using pantoprazole. Review of Systems Constitutional: Constitutional: Denies headache(s) and Denies weakness Eyes: Eyes: Denies blurry vision ENT: Reports Normal hearing present, Denies headache(s) and Denies neck pain Cardiovascular: Cardiovascular: Denies chest pain and Denies dyspnea Respiratory: Respiratory: Denies dyspnea Gastrointestinal: Gastrointestinal: Reports no additional gastrointestinal complaints Genitourinary: Genitourinary: Denies dysuria Musculoskeletal: Musculoskeletal: Denies neck pain Integumentary/Breasts: Skin/Breast: Denies dry skin Neurologic: Reports Normal hearing present, Denies headache(s) and Denies weakness Psychiatric: Psychiatric: Denies anxiety Endocrine: Endocrine: Denies change in body appearance Hematologic/Lymphatic: Hematologic/Lymphatic: Denies easy bleeding Allergic/Immunologic: Allergic/Immunologic: Denies urticaria PMFSH Past Medical History Medical History (Updated 05/03/21 @ 10:45 by Fredy Amaya MD) Acute intra-cranial hemorrhage Anastomotic stricture of stomach Atrial fibrillation CHF (congestive heart failure) Complications of gastric bypass surgery DVT (deep venous thrombosis) GERD (gastroesophageal reflux disease) History of pulmonary embolism Hyperlipidemia Hypertension Hypothyroidism Pacemaker TIA (transient ischemic attack) Surgical History Surgical History AICD present, double chamber H/O craniotomy History of left knee replacement S/P left atrial appendage ligation Status post biventricular pacemaker Family History Family History Father Acute myocardial infarction Mother Acute myocardial infarction Other Cerebrovascular accident Diabetes mellitus Family history of arthritis Family history of heart disease in male family member before age 55 Social History Social History Smoking packs per day: 1 Smoking cigarettes per day: 20.0 Years smoked: 10 Smoking pack-years: 10.00 Smoking status: Former smoker Tobacco type: cigarettes Smoking end date: 02/10/72 Alcohol intake: former Substance use: never Substance use type: does not use Other substance usage details: QUIT SMOKING IN 1972. Living arrangements: alone Gender identity (if verbalized by the patient): Female Sexual Orientation (if Verbalized by the Patient): Straight or Heterosexual Spiritual care concerns: No Meds Home Medications and Allergies Home Medications Medication Instructions Recorded Confirmed Type aspirin [Aspirin Low Dose] 81 mg PO DAILY 03/27/19 05/03/21 History metoprolol succinate 50 mg PO DAILY 03/27/19 05/03/21 History rosuvastatin 40 mg PO DAILY 03/27/19 05/03/21 History furosemide 20 mg tablet 20 mg PO QAM 06/25/20 05/03/21 History spironolactone 25 mg tablet 12.5 mg PO DAILY tablet 06/25/20 05/03/21 History pantoprazole 40 mg tablet,delayed 40 mg PO QAM #30 tablet 06/26/20 05/03/21 Rx release sacubitril-valsartan [Entresto] 1 tablet PO BID 11/26/20 05/03/21 History apixaban [Eliquis] 5 mg PO BID 04/23/21 05/03/21 History pregabalin 25 mg PO TID 04/23/21 05/03/21 History levothyroxine 100 mcg tablet See Rx Instructions .ROUTE 04/25/21 05/03/21 Rx .COMPLEX #90 tablet Allergies Allerg
[2021-05-03 11:07] VITALS: BP 103/58; PULSE 69; RESP 16; O2SAT 99
[2021-05-03 11:17] VITALS: BP 108/64; PULSE 69; RESP 15; O2SAT 100
[2021-05-03 11:27] VITALS: BP 123/74; PULSE 69; RESP 23; O2SAT 100
== END 2021-05-03 11:37 | disposition home or self-care (01) ==
PROVIDERS: PCP Family Medicine; Visit Provider Internal Medicine Gastroenterology
PROC: 0DJ08ZZ Inspection of Upper Intestinal Tract, Via Natural or Artificial Opening Endoscopic (ICD-10-PCS; CPT 43235; principal; 2021-05-03 11:00)
DX: R11.2 Nausea with vomiting, unspecified (principal); K31.84 Gastroparesis; Z98.84 Bariatric surgery status; I11.0 Hypertensive heart disease with heart failure; I50.9 Heart failure, unspecified; I48.91 Unspecified atrial fibrillation; K21.9 Gastro-esophageal reflux disease without esophagitis; E78.5 Hyperlipidemia, unspecified; E03.9 Hypothyroidism, unspecified; Z86.73 Personal history of transient ischemic attack (TIA), and cerebral infarction without residual deficits; Z86.718 Personal history of other venous thrombosis and embolism; Z86.711 Personal history of pulmonary embolism; Z95.810 Presence of automatic (implantable) cardiac defibrillator; Z87.891 Personal history of nicotine dependence; E66.9 Obesity, unspecified; Z68.32 Body mass index [BMI] 32.0-32.9, adult; Z79.01 Long term (current) use of anticoagulants; Z79.82 Long term (current) use of aspirin
CPT/HCPCS: 43245; C1726; J2704; J7120

== ENCOUNTER 2021-07-29 13:31 | Emergency (ER) | payer MEDICARE, SELFPAY ==
[2021-07-29] VITALS (19 sets, daily range): BP systolic 117–129; BP diastolic 69–86; PULSE 60–70; RESP 18; TEMP 36.1–36.2; O2SAT 92–100
--- NOTE | 2021-07-29 14:41 | ED.GENADULT ---
HPI - General Adult General Chief complaint: Nausea/Vomiting/Diarrhea Stated complaint: Stomach pain/ cant eat or drink Time Seen by Provider: 07/29/21 14:42 Source: patient and RN notes reviewed Mode of arrival: ambulatory Limitations: no limitations History of Present Illness HPI narrative: Patient states that when she tries to eat or drink things get stuck in her lower esophagus behind her sternum. She says that she has had 1 boost sometimes take her all day just to drink the 1. She has been drinking water. She has a history of esophageal strictures and has not been dilated in a while. She has been trying to contact her auger machine offbearer but they have not returned her call. She was feeling weak and when this happened in the past she had an episode of atrial fibrillation. Subsequently she went to see her user experience developer this morning who said everything was normal and recommended that she go to emergency room to get blood work completed be sure there is no evidence of dehydration or electrolyte abnormality. She also states that she has been losing about a lb a day and is down 8 lb in last week. Onset (ago): week(s) (1) Severity: moderate Related Data Home Medications Medication Instructions Recorded Confirmed aspirin 81 mg tablet,delayed 81 mg PO DAILY 03/27/19 07/29/21 release (Mahnaz Low Dose Aspirin) metoprolol succinate 50 mg 50 mg PO DAILY 03/27/19 07/29/21 tablet,extended release 24 hr rosuvastatin 40 mg tablet 40 mg PO DAILY 03/27/19 07/29/21 furosemide 20 mg tablet 20 mg PO QAM 06/25/20 07/29/21 spironolactone 25 mg tablet 12.5 mg PO DAILY 06/25/20 07/29/21 sacubitril 24 mg-valsartan 26 mg 1 tablet PO BID 11/26/20 07/29/21 tablet (Entresto) apixaban 5 mg tablet (Eliquis) 5 mg PO BID 04/23/21 07/29/21 pregabalin 25 mg capsule 25 mg PO BID 04/23/21 07/29/21 amiodarone 200 mg tablet 100 mg DAILY 07/29/21 07/29/21 Allergies Allergy/AdvReac Type Severity Reaction Status Date / Time oxycodone Allergy Severe Gastrointestinal Verified 07/29/21 13:57 Upset Penicillins Allergy Severe Anaphylactic Verified 07/29/21 13:57 Shock hydrocodone AdvReac Severe NAUSEA AND Verified 07/29/21 13:57 VOMITING Review of Systems Review of Systems: All systems reviewed & are unremarkable except as noted in HPI and below PMFSH Past Medical History Medical History (Updated 07/29/21 @ 16:00 by Ehsan Torres MD) Acute intra-cranial hemorrhage Anastomotic stricture of stomach Atrial fibrillation CHF (congestive heart failure) Complications of gastric bypass surgery DVT (deep venous thrombosis) GERD (gastroesophageal reflux disease) History of pulmonary embolism Hyperlipidemia Hypertension Hypothyroidism Nondiabetic gastroparesis Pacemaker TIA (transient ischemic attack) Surgical History Surgical History AICD present, double chamber H/O craniotomy History of left knee replacement S/P left atrial appendage ligation Status post biventricular pacemaker Family History Family History Father Acute myocardial infarction Mother Acute myocardial infarction Other Cerebrovascular accident Diabetes mellitus Family history of arthritis Family history of heart disease in male family member before age 55 Social History Social History Smoking packs per day: 1 Smoking cigarettes per day: 20.0 Years smoked: 10 Smoking pack-years: 10.00 Smoking status: Former smoker Tobacco type: cigarettes Smoking end date: 02/10/72 Alcohol intake: former Substance use: never Substance use type: does not use Other substance usage details: QUIT SMOKING IN 1972. Gender identity (if verbalized by the patient): Female Sexual Orientation (if Verbalized by the Patient): Straight or Heterosexual Spiritual care concerns: No Exam Const: G
--- NOTE | 2021-07-29 15:11 | PC.NURSE ---
Lab at bedside.
[2021-07-29 15:16] LABS: Basophils Absolute Auto 0.02 K/mm3 (0.00-0.10); Basophils Percent Auto 0.4 % (0.0-1.0); Eosinophils Absolute Auto 0.06 K/mm3 (0.02-0.50); Eosinophils Percent Auto 1.3 % (1.0-6.0); Hematocrit 31.7 % (35.0-42.0); Hemoglobin 9.8 g/dL (11.7-13.8); Immature Granulocyte Absolute 0.01 K/mm3 (0.00-0.00); Immature Granulocyte Percent A 0.2 % (0.0-0.0); Lymphocytes Absolute Auto 1.17 K/mm3 (1.10-4.50); Lymphocytes Percent Auto 25.8 % (18.0-42.0); Mean Corpuscular HGB Conc 30.9 g/dL (32.0-36.0); Mean Corpuscular Hemoglobin 27.1 pg (27.0-31.0); Mean Corpuscular Volume 87.6 fL (78.0-102.0); Mean Platelet Volume 8.5 fl (9.2-11.8); Monocytes Absolute Auto 0.33 K/mm3 (0.10-0.90); Monocytes Percent Auto 7.3 % (2.0-11.0); Neutrophils Absolute Auto 2.9 K/mm3 (1.7-7.2); Platelet Count Result 173 K/mm3 (150-420); Red Blood Count 3.62 M/mm3 (4.20-5.40); Red Cell Distribution Width 16.4 % (11.6-14.4); White Blood Count 4.5 K/mm3 (4.8-10.8)
[2021-07-29 15:30] LABS: Alanine Aminotransferase 14 U/L (14-59); Alkaline Phosphatase 88 U/L (46-116); Anion Gap 9 mmol/L (8-16); Aspartate Amino Transferase 15 U/L (15-37); Bilirubin,Total 0.5 mg/dL (0.00-1.00); Blood Urea Nitrogen 23 mg/dL (7-18); CRP 2.3 mg/dL (0.0-0.9); Calcium 9.2 mg/dL (8.5-10.1); Carbon Dioxide 29 mmol/L (21-32); Chloride 100 mmol/L (98-108); Estimated CRCL calculation 31 ml/min; Estimated Glomerular Filt Rate 44; Glucose 78 mg/dL (70-99); Magnesium 1.9 mg/dL (1.8-2.4); Osmolality Calculated 288 mOsm/kg (285-295); Potassium 3.6 mmol/L (3.5-5.1); Sodium 138 mmol/L (136-145); Total Protein 7.1 g/dL (6.4-8.2)
--- NOTE | 2021-07-29 15:42 | PC.NURSE ---
Call out to the office of KANA Benton, left message requesting call back. [phone] -- nadir
--- NOTE | 2021-07-29 15:50 | PC.NURSE ---
Dr Torres in contact with Dr Amaya () via phone.
== END 2021-07-29 16:11 | disposition home or self-care (01) ==
PROVIDERS: Emergency Provider Emergency Medicine; PCP Family Medicine
DX: K22.2 Esophageal obstruction (principal); I48.91 Unspecified atrial fibrillation; I50.9 Heart failure, unspecified; Z86.718 Personal history of other venous thrombosis and embolism; K21.9 Gastro-esophageal reflux disease without esophagitis; E78.5 Hyperlipidemia, unspecified; I10 Essential (primary) hypertension; E03.9 Hypothyroidism, unspecified
CPT/HCPCS: 36415; 80053; 83735; 85025; 86140; 99283

== ENCOUNTER 2021-08-06 02:30 | Day surgery (SDC) | payer MEDICARE, SELFPAY ==
[2021-07-31 11:44] VITALS: BMI 30.4
[2021-08-06 07:25] VITALS: BP 97/63; PULSE 70; RESP 16; TEMP 36.3; O2SAT 98
[2021-08-06] MEDS: LACTATED RINGERS 1,000 ML 150 ML IV CONT (07:37)
--- NOTE | 2021-08-06 07:58 | WPDANESEPPF ---
Anes - Initial Pre Proc Eval Procedure: Operation Date: 08/06/21 08:30 Proposed Procedures p Esophagogastroduodenoscopy - Fredy Amaya MD Date/Time: 08/06/21 07:58 Surgeon: Fredy Amaya MD Pre Op Diagnosis: dysphagia Patient Data Age: 86 Gender: F Height: 1.63 m Weight: 78.8 kg Last Vital Signs Temp 97.4 F L 08/06/21 07:25 Pulse 70 08/06/21 07:25 Resp 16 08/06/21 07:25 BP 97/63 L 08/06/21 07:25 Pulse Ox 98 08/06/21 07:25 O2 Del Method Room Air 08/06/21 07:25 Allergies Allergy/AdvReac Type Severity Reaction Status Date / Time Penicillins Allergy Severe Anaphylactic Verified 08/06/21 07:23 Shock hydrocodone AdvReac Severe NAUSEA AND Verified 08/06/21 07:23 VOMITING oxycodone AdvReac Severe Gastrointestinal Verified 08/06/21 07:23 Upset Home Medications Medication Instructions Recorded Confirmed Type aspirin 81 mg tablet,delayed 81 mg PO DAILY 03/27/19 07/31/21 History release (Mahnaz Low Dose Aspirin) metoprolol succinate 50 mg 50 mg PO DAILY 03/27/19 07/31/21 History tablet,extended release 24 hr rosuvastatin 40 mg tablet 40 mg PO DAILY 03/27/19 07/31/21 History furosemide 20 mg tablet 20 mg PO QAM 06/25/20 07/31/21 History spironolactone 25 mg tablet 12.5 mg PO DAILY 06/25/20 07/31/21 History sacubitril 24 mg-valsartan 26 mg 1 tablet PO BID 11/26/20 07/31/21 History tablet (Entresto) apixaban 5 mg tablet (Eliquis) 5 mg PO BID 04/23/21 08/06/21 History pregabalin 25 mg capsule 25 mg PO BID 04/23/21 07/31/21 History levothyroxine 100 mcg tablet See Rx Instructions .Route 04/25/21 07/31/21 Rx .COMPLEX #90 tabs metoclopramide HCl 5 mg tablet 5 mg PO TIDWMEAL 1 month #90 tabs 05/03/21 07/31/21 Rx (Reglan) amiodarone 200 mg tablet 100 mg DAILY 07/29/21 07/31/21 History pantoprazole 40 mg tablet,delayed See Rx Instructions .Route 07/29/21 07/31/21 Rx release .COMPLEX #90 tabs Patient hx anesthesia problems: none Family hx anesthesia problems: none Results Review: All pre-operative results and documents have been reviewed as part of the pre-operative evaluation. [facility] Past Medical History Medical History (Updated 07/30/21 @ 00:00 by Navi Sanders) Acute intra-cranial hemorrhage Anastomotic stricture of stomach Atrial fibrillation CHF (congestive heart failure) Complications of gastric bypass surgery DVT (deep venous thrombosis) GERD (gastroesophageal reflux disease) History of pulmonary embolism Hyperlipidemia Hypertension Hypothyroidism Nondiabetic gastroparesis Pacemaker TIA (transient ischemic attack) Surgical History Surgical History AICD present, double chamber H/O craniotomy History of left knee replacement S/P left atrial appendage ligation Status post biventricular pacemaker Family History Family History Father Acute myocardial infarction Mother Acute myocardial infarction Other Cerebrovascular accident Diabetes mellitus Family history of arthritis Family history of heart disease in male family member before age 55 Social History Social History Smoking packs per day: 1 Smoking cigarettes per day: 20.0 Years smoked: 10 Smoking pack-years: 10.00 Smoking status: Former smoker Tobacco type: cigarettes Smoking end date: 02/10/72 Alcohol intake: never Substance use: never Substance use type: does not use Other substance usage details: QUIT SMOKING IN 1972. Living arrangements: alone Gender identity (if verbalized by the patient): Female Sexual Orientation (if Verbalized by the Patient): Straight or Heterosexual Spiritual care concerns: No Anes - Eval Final PreProcedure Day of Procedure 08/06/21 07:58 Patient weight: overweight Heart: irregular rhythm Lungs: clear to auscultation Air
--- NOTE | 2021-08-06 08:11 | PM.HPGS ---
History of Present Illness History of Present Illness Consent: Risks, benefits, and alternatives have been discussed and questions answered. Patient agrees to proceed with procedure. Chief complaint: dysphagia Narrative: Sera Shaffer is a 86 year old female here for another EGD because sensation of more difficulty swallowing. She had bariatric surgery in s and previous EGD 2019 and then 2021 noted non-obstructive narrowing in proximal stomach with some retained food that was dilated up to 20 mm balloon. This helped both times, last time prescribed reglan but unfortunately did not tolerate (started dropping things) but lately again symptomatic Review of Systems Constitutional: Constitutional: Denies headache(s) and Denies weakness Eyes: Eyes: Denies blurry vision ENT: Reports Normal hearing present, Denies headache(s) and Denies neck pain Cardiovascular: Cardiovascular: Denies chest pain and Denies dyspnea Respiratory: Respiratory: Denies dyspnea Gastrointestinal: Gastrointestinal: Reports no additional gastrointestinal complaints Genitourinary: Genitourinary: Denies dysuria Musculoskeletal: Musculoskeletal: Denies neck pain Integumentary/Breasts: Skin/Breast: Denies dry skin Neurologic: Reports Normal hearing present, Denies headache(s) and Denies weakness Psychiatric: Psychiatric: Denies anxiety Endocrine: Endocrine: Denies change in body appearance Hematologic/Lymphatic: Hematologic/Lymphatic: Denies easy bleeding Allergic/Immunologic: Allergic/Immunologic: Denies urticaria PMFSH Past Medical History Medical History (Updated 08/06/21 @ 08:12 by Fredy Amaya MD) Acute intra-cranial hemorrhage Anastomotic stricture of stomach Atrial fibrillation CHF (congestive heart failure) Complications of gastric bypass surgery DVT (deep venous thrombosis) Dysphagia GERD (gastroesophageal reflux disease) History of pulmonary embolism Hyperlipidemia Hypertension Hypothyroidism Nondiabetic gastroparesis Pacemaker TIA (transient ischemic attack) Surgical History Surgical History AICD present, double chamber H/O craniotomy History of left knee replacement S/P left atrial appendage ligation Status post biventricular pacemaker Family History Family History Father Acute myocardial infarction Mother Acute myocardial infarction Other Cerebrovascular accident Diabetes mellitus Family history of arthritis Family history of heart disease in male family member before age 55 Social History Social History Smoking packs per day: 1 Smoking cigarettes per day: 20.0 Years smoked: 10 Smoking pack-years: 10.00 Smoking status: Former smoker Tobacco type: cigarettes Smoking end date: 02/10/72 Alcohol intake: never Substance use: never Substance use type: does not use Other substance usage details: QUIT SMOKING IN 1972. Living arrangements: alone Gender identity (if verbalized by the patient): Female Sexual Orientation (if Verbalized by the Patient): Straight or Heterosexual Spiritual care concerns: No Meds Home Medications and Allergies Home Medications Medication Instructions Recorded Confirmed Type aspirin 81 mg tablet,delayed 81 mg PO DAILY 03/27/19 07/31/21 History release (Mahnaz Low Dose Aspirin) metoprolol succinate 50 mg 50 mg PO DAILY 03/27/19 07/31/21 History tablet,extended release 24 hr rosuvastatin 40 mg tablet 40 mg PO DAILY 03/27/19 07/31/21 History furosemide 20 mg tablet 20 mg PO QAM 06/25/20 07/31/21 History spironolactone 25 mg tablet 12.5 mg PO DAILY 06/25/20 07/31/21 History sacubitril 24 mg-valsartan 26 mg 1 tablet PO BID 11/26/20 07/31/21 History tablet (Entresto) apixaban 5 mg tablet (Eliquis) 5 mg PO BID 04/23/21 08/06/21 History pregabalin 25 mg capsule 25 mg PO
[2021-08-06 08:28] VITALS: BP 92/58; PULSE 60; RESP 20; O2SAT 100
[2021-08-06 08:38] VITALS: BP 114/67; PULSE 66; RESP 27; O2SAT 99
[2021-08-06 08:48] VITALS: BP 121/73; PULSE 60; RESP 16; O2SAT 99
== END 2021-08-06 09:00 | disposition home or self-care (01) ==
PROVIDERS: PCP Family Medicine; Visit Provider Internal Medicine Gastroenterology
PROC: 0DJ08ZZ Inspection of Upper Intestinal Tract, Via Natural or Artificial Opening Endoscopic (ICD-10-PCS; CPT 43235; principal; 2021-08-06 08:30)
DX: K31.2 Hourglass stricture and stenosis of stomach (principal); K31.84 Gastroparesis; K29.70 Gastritis, unspecified, without bleeding; I11.0 Hypertensive heart disease with heart failure; I50.9 Heart failure, unspecified; I48.91 Unspecified atrial fibrillation; E78.5 Hyperlipidemia, unspecified; E03.9 Hypothyroidism, unspecified; K21.9 Gastro-esophageal reflux disease without esophagitis; Z86.73 Personal history of transient ischemic attack (TIA), and cerebral infarction without residual deficits; Z86.718 Personal history of other venous thrombosis and embolism; Z79.82 Long term (current) use of aspirin; Z79.01 Long term (current) use of anticoagulants; Z86.711 Personal history of pulmonary embolism; Z95.810 Presence of automatic (implantable) cardiac defibrillator; Z87.891 Personal history of nicotine dependence
CPT/HCPCS: 43245; C1726; J2704; J7120

== ENCOUNTER 2021-08-22 10:38 | Outpatient (CLI) | payer MEDICARE, SELFPAY ==
[2021-08-22 10:50] LABS: Hemoglobin 10.3 g/dL (11.7-13.8); Mean Corpuscular HGB Conc 30.3 g/dL (32.0-36.0); Mean Corpuscular Hemoglobin 26.7 pg (27.0-31.0); Mean Corpuscular Volume 88.1 fL (78.0-102.0); Mean Platelet Volume 8.6 fl (9.2-11.8); Platelet Count Result 208 K/mm3 (150-420); Red Blood Count 3.86 M/mm3 (4.20-5.40); Red Cell Distribution Width 17.3 % (11.6-14.4); White Blood Count 5.7 K/mm3 (4.8-10.8)
[2021-08-22 11:44] LABS: Ferritin 18 ng/mL (8-252); Iron 35 ug/dL (50-170); Percent Iron Saturation 8 % (12-57)
== END 2021-08-22 10:39 | disposition home or self-care (01) ==
LOC: CHSLAB 10:39
PROVIDERS: PCP Family Medicine; Visit Provider Family Medicine
DX: D64.9 Anemia, unspecified (principal)
CPT/HCPCS: 36415; 82728; 83540; 83550; 85027

== ENCOUNTER 2021-08-30 08:03 | Outpatient (CLI) | payer MEDICARE, SELFPAY ==
--- NOTE | ~2021-08-30 | CT_ITS ---
EXAMINATION: CT abdomen pelvis wo/w con DATE: 08/30/2021 09:15 INDICATION: Kidney mass TECHNIQUE: Computed tomography (CT) of the abdomen and pelvis was performed without and subsequently with 100 CC Omnipaque 350 intravenous contrast. Automated exposure control and iterative reconstructi on technique were employed. Exam dose: 1142.44 mGy-cm total exam DLP. COMPARISON: 01/30/2021 CT abdomen pelvis 11/26/2020 CT abdomen pelvis FINDINGS: Chronic focal areas of discoid scarring and reticular change in the lung bases. No pulmonar y consolidation or pleural effusion. Cardiomegaly with triple lead pacemaker. Multiple stones are noted in the dependent aspect of the gallbladder. No gallbladder wall thickening or pericholecystic fluid or fat stranding. No bile duct dilatation. No hepatic space-occupying mass l esion. Normal splenic size. No pancreatic mass lesion, calcification or ductal dilatation. Normal morphology of the adrenal glands. Multiple bilateral renal cysts, stable since 11/26/2020. No urinary tract calculus or hydroureteronephrosis. There is extensive atherosclerotic calcification of the abdominal aorta and at the origin of the alicia ac and superior mesenteric and renal arteries. No abdominal aortic aneurysm. No intraperitoneal or re troperitoneal or pelvic mass lesion or adenopathy or ascites. Status post hysterectomy. The urinary bladder is unremarkable. No bowel obstruction, bowel wall thickening, pneumatosis or intraperitoneal free air. Small fat-containing umbilical hernia. No suspicious osteolytic or osteoblastic lesions. IMPRESSION: Bilateral renal cysts, stable since 11/26/2020 Cardiomegaly, triple lead pacemaker Cholelithiasis Status post hysterectomy Reviewed, dictated and finalized at [facility]. Reviewed, dictated and finalized at [facility].
[2021-08-30 08:36] LABS: Estimated Glomerular Filt Rate 45
== END 2021-08-30 08:04 | disposition home or self-care (01) ==
LOC: CHSIMG 08:04
PROVIDERS: PCP Family Medicine; Visit Provider Family Medicine
DX: N28.89 Other specified disorders of kidney and ureter (principal); R93.429 Abnormal radiologic findings on diagnostic imaging of unspecified kidney
CPT/HCPCS: 74178; Q9967

== ENCOUNTER 2021-11-29 09:23 | Outpatient (CLI) | payer MEDICARE, SELFPAY ==
[2021-11-29 09:33] LABS: Hematocrit 38.3 % (35.0-42.0); Hemoglobin 12.2 g/dL (11.7-13.8); Mean Corpuscular HGB Conc 31.9 g/dL (32.0-36.0); Mean Corpuscular Hemoglobin 31.5 pg (27.0-31.0); Mean Platelet Volume 8.2 fl (9.2-11.8); Platelet Count Result 160 K/mm3 (150-420); Red Blood Count 3.87 M/mm3 (4.20-5.40); Red Cell Distribution Width 16.3 % (11.6-14.4)
[2021-11-29 11:00] LABS: Ferritin 44 ng/mL (8-252); Iron 62 ug/dL (50-170)
== END 2021-11-29 09:24 | disposition home or self-care (01) ==
LOC: CHSLAB 09:24
PROVIDERS: PCP Family Medicine; Visit Provider Family Medicine
DX: D64.9 Anemia, unspecified (principal)
CPT/HCPCS: 36415; 82728; 83540; 85027

== ENCOUNTER 2022-01-06 09:56 | Emergency (ER) | payer MEDICARE, SELFPAY ==
--- NOTE | ~2022-01-06 | XR_ITS ---
XR foot RT min 3V 01/06/2022 10:51 Indication: Right ankle pain and swelling Procedure: 4 views right foot Comparison: 09/03/2006 Findings: There is a side plate and screws transfixing the distal tibia. There is moderate polyarticu lar osteoarthritis. There is an osteotomy of the medial margin of the distal aspect of the first meta tarsal consistent with hallux valgus repair. Osteopenia. Lisfranc joint intact. There is atherosclero sis. Impression: 1: No acute fracture. 2: Moderate polyarticular osteoarthritis. Reviewed, dictated and finalized at location [facility]. 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 2: Moderate polyarticular osteoarthritis.
--- NOTE | ~2022-01-06 | US_ITS ---
EXAMINATION:US venous doppler LE RT INDICATION:Right lower extremity swelling TECHNIQUE: Multiple grayscale, color flow and Doppler images of the right lower extremity deep venous systems were obtained and reviewed. COMPARISON:11/12/2006 FINDINGS: The common femoral, superficial femoral and popliteal veins demonstrate normal respiratory variation, augmentation and compressibility. Color flow is also seen within the posterior tibial, pe roneal, greater saphenous and profunda veins. IMPRESSION: 1: No lower extremity deep venous thrombosis. Reviewed, dictated and finalized at location [facility]. [employer]
--- NOTE | ~2022-01-06 | XR_ITS ---
XR ankle RT 2V 01/06/2022 10:50 Indication: Lateral ankle pain and swelling Procedure: 2 views right ankle Comparison: 01/06/2022 Findings: There is a minimally displaced distal fibular fracture at the level of the talar dome. Ther e is a side plate and 2 screws transfixing the distal tibia. Osteopenia. Talar dome is unremarkable. There is polyarticular osteoarthritis of the right ankle and foot. There are loose bodies distal to t he fibula. There is a small degenerative calcaneal enthesophyte. Impression: 1: Minimally displaced distal fibular fracture. Reviewed, dictated and finalized at location [facility]. REPAIRER Impression: 1: Minimally displaced distal fibular fracture.
[2022-01-06 10:05] VITALS: BP 133/87; PULSE 73; RESP 16; TEMP 36.3; O2SAT 97
[2022-01-06 10:54] LABS: Hemoglobin 11.8 g/dL (11.7-13.8); Mean Corpuscular HGB Conc 31.9 g/dL (32.0-36.0); Mean Corpuscular Hemoglobin 32.2 pg (27.0-31.0); Mean Corpuscular Volume 101.1 fL (78.0-102.0); Mean Platelet Volume 8.3 fl (9.2-11.8); Platelet Count Result 171 K/mm3 (150-420); Red Blood Count 3.66 M/mm3 (4.20-5.40); Red Cell Distribution Width 14.6 % (11.6-14.4); White Blood Count 3.2 K/mm3 (4.8-10.8)
[2022-01-06 11:23] LABS: Alanine Aminotransferase 20 U/L (14-59); Albumin Level 3.2 g/dL (3.4-5.0); Alkaline Phosphatase 81 U/L (46-116); Anion Gap 9 mmol/L (8-16); Aspartate Amino Transferase 23 U/L (15-37); Bilirubin,Total 0.4 mg/dL (0.00-1.00); Blood Urea Nitrogen 24 mg/dL (7-18); Calcium 8.9 mg/dL (8.5-10.1); Carbon Dioxide 28 mmol/L (21-32); Chloride 110 mmol/L (98-108); Estimated CRCL calculation 35 ml/min; Estimated Glomerular Filt Rate 49; Glucose 94 mg/dL (70-99); Osmolality Calculated 308 mOsm/kg (285-295); Sodium 147 mmol/L (136-145)
[2022-01-06 11:31] LABS: Band Neutrophils Percent 0 % (0-6); Basophils Absolute Manual 0.03 K/mm3 (0-0.1); Basophils Percent Manual 1 % (0-1); Eosinophils Absolute Manual 0.03 K/mm3 (0.02-0.5); Eosinophils Percent Manual 1 % (1-6); Lymphocytes Absolute Manual 1.15 K/mm3 (1.1-4.5); Lymphocytes Percent Manual 36 % (18-44); Monocytes Absolute Manual 0.28 K/mm3 (0.1-0.90); Monocytes Percent Manual 9 % (3-9); Neutrophils Absolute Manual 1.69 K/mm3 (1.7-7.2); Neutrophils Percent Manual 53 % (46-73); Platelet Estimate Adequate (Adequate); Total Cells Counted 100
[2022-01-06 11:55] VITALS: BP 136/74; PULSE 64; RESP 16; TEMP 36.5; O2SAT 98
--- NOTE | 2022-01-06 12:30 | ED.LOWEXIN ---
HPI - Extremity Injury (Lower) General Chief Complaint: Extremity Injury, Lower Stated Complaint: Right ankle and foot swelling and red starte 01/01 Time Seen by Provider: 01/06/22 09:58 Source: patient, family and RN notes reviewed Mode of arrival: wheelchair Limitations: no limitations History of Present Illness MD complaint: ankle injury Onset (ago): day(s) (5) Injury: Right: ankle Type of Injury: inversion Place: home Severity: moderate Severity scale (1-10): 5 Relieving factors: immobilization and rest Exacerbating factors: weight bearing and movement Associated symptoms: snap/pop sensation, swelling and tingling Related Data Home Medications Medication Instructions Recorded Confirmed aspirin 81 mg tablet,delayed 81 mg PO DAILY 03/27/19 01/06/22 release (Mahnaz Low Dose Aspirin) metoprolol succinate 50 mg 50 mg PO DAILY 03/27/19 01/06/22 tablet,extended release 24 hr rosuvastatin 40 mg tablet 40 mg PO DAILY 03/27/19 01/06/22 furosemide 20 mg tablet 20 mg PO QAM 06/25/20 01/06/22 spironolactone 25 mg tablet 12.5 mg PO DAILY 06/25/20 01/06/22 sacubitril 24 mg-valsartan 26 mg 1 tablet PO BID 11/26/20 01/06/22 tablet (Entresto) apixaban 5 mg tablet (Eliquis) 5 mg PO BID 04/23/21 01/06/22 amiodarone 200 mg tablet 100 mg DAILY 07/29/21 01/06/22 Allergies Allergy/AdvReac Type Severity Reaction Status Date / Time Penicillins Allergy Severe Anaphylactic Verified 01/07/22 07:01 Shock hydrocodone AdvReac Severe NAUSEA AND Verified 01/07/22 07:01 VOMITING oxycodone AdvReac Severe Gastrointestinal Verified 01/07/22 07:01 Upset Review of Systems Review of Systems: All systems reviewed & are unremarkable except as noted in HPI and below Constitutional: Constitutional: Reports no additional constitutional complaints Eyes: Eyes: Reports no additional eye complaints ENT: Reports system reviewed and no additional complaints, except as documented Cardiovascular: Cardiovascular: Reports no additional cardiovascular complaints Respiratory: Respiratory: Reports no additional respiratory complaints Gastrointestinal: Gastrointestinal: Reports no additional gastrointestinal complaints Genitourinary: Genitourinary: Reports no additional female genitourinary complaints Musculoskeletal: Musculoskeletal: Reports no additional musculoskeletal complaints Integumentary/Breasts: Skin/Breast: Reports system reviewed and no additional complaints, except as docu Neurologic: Reports system reviewed and no additional complaints, except as documented Psychiatric: Psychiatric: Reports no additional psychiatric complaints Endocrine: Endocrine: Reports no additional endocrine complaints Hematologic/Lymphatic: Hematologic/Lymphatic: Reports no additional hematologic/lymphatic complaints Allergic/Immunologic: Allergic/Immunologic: Reports no additional allergic/immunologic complaints PMFSH Past Medical History Medical History Acute intra-cranial hemorrhage Anastomotic stricture of stomach Atrial fibrillation CHF (congestive heart failure) Complications of gastric bypass surgery DVT (deep venous thrombosis) Dysphagia GERD (gastroesophageal reflux disease) History of pulmonary embolism Hyperlipidemia Hypertension Hypothyroidism Nondiabetic gastroparesis Pacemaker TIA (transient ischemic attack) Surgical History Surgical History AICD present, double chamber H/O craniotomy History of left knee replacement S/P left atrial appendage ligation Status post biventricular pacemaker Family History Family History Father Acute myocardial infarction Mother Acute myocardial infarction Other Cerebrovascular accident Diabetes mellitus Family history of arthritis Family history of heart disease in male family member before age 55 Social Hist
== END 2022-01-06 12:39 | disposition home or self-care (01) ==
PROVIDERS: Emergency Provider Emergency Medicine; PCP Family Medicine
DX: S82.401A Unspecified fracture of shaft of right fibula, initial encounter for closed fracture (principal); M79.89 Other specified soft tissue disorders; I50.9 Heart failure, unspecified; K21.9 Gastro-esophageal reflux disease without esophagitis; E78.5 Hyperlipidemia, unspecified; I10 Essential (primary) hypertension; E03.9 Hypothyroidism, unspecified; Z87.891 Personal history of nicotine dependence
CPT/HCPCS: 36415; 73600; 73630; 80053; 85025; 93971; 99284; L2112

== ENCOUNTER 2022-02-24 09:08 | Outpatient (CLI) | payer MEDICARE, SELFPAY ==
--- NOTE | ~2022-02-24 | XR_ITS ---
XR chest 2V 02/24/2022 09:50 Indication: Long-term use of antiarrhythmic. Procedure: PA and lateral views of the chest Comparison: Comparison to multiple prior studies sequentially, with oldest reviewed study dated 11/02. Findings: Cardiomegaly. No focal air space disease, pulmonary edema, pleural effusion or suspected pn eumothorax. Pacemaker leads in stable position. Impression: 1: No acute cardiopulmonary disease. Reviewed, dictated and finalized at location [facility]. 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
[2022-02-24 10:21] LABS: Alanine Aminotransferase 18 U/L (14-59); Albumin Level 3.1 g/dL (3.4-5.0); Alkaline Phosphatase 81 U/L (46-116); Aspartate Amino Transferase 19 U/L (15-37); Bilirubin Direct 0.1 mg/dL (0-0.2); Bilirubin,Total 0.5 mg/dL (0.00-1.00); Thyroid Stimulating Hormone 1.14 uIU/mL (0.36-3.74); Total Protein 6.6 g/dL (6.4-8.2)
== END 2022-02-24 09:09 | disposition home or self-care (01) ==
PROVIDERS: PCP Family Medicine
DX: I48.0 Paroxysmal atrial fibrillation (principal); Z79.899 Other long term (current) drug therapy
CPT/HCPCS: 36415; 71046; 80076; 84443

== ENCOUNTER 2022-04-04 11:09 | Outpatient (CLI) | payer MEDICARE, SELFPAY ==
[2022-04-04 11:22] LABS: Hematocrit 39.6 % (35.0-42.0); Hemoglobin 12.8 g/dL (11.7-13.8); Mean Corpuscular HGB Conc 32.3 g/dL (32.0-36.0); Mean Corpuscular Hemoglobin 32.9 pg (27.0-31.0); Mean Corpuscular Volume 101.8 fL (78.0-102.0); Mean Platelet Volume 8.7 fl (9.2-11.8); Platelet Count Result 174 K/mm3 (150-420); Red Blood Count 3.89 M/mm3 (4.20-5.40); Red Cell Distribution Width 13.4 % (11.6-14.4); White Blood Count 4.9 K/mm3 (4.8-10.8)
[2022-04-04 11:58] LABS: Thyroid Stimulating Hormone Reflex 1.87 u/IU/mL (0.36-3.74)
== END 2022-04-04 11:10 | disposition home or self-care (01) ==
LOC: CHSLAB 11:10
PROVIDERS: PCP Family Medicine; Visit Provider Family Medicine
DX: E11.9 Type 2 diabetes mellitus without complications (principal); E03.9 Hypothyroidism, unspecified; D64.9 Anemia, unspecified
CPT/HCPCS: 36415; 84443; 85027

== ENCOUNTER 2022-06-26 10:58 | Outpatient (CLI) | payer MEDICARE, SELFPAY ==
[2022-06-26 11:10] LABS: Occult Blood Negative (Negative)
== END 2022-06-26 10:59 | disposition home or self-care (01) ==
LOC: CHSLAB 10:59
PROVIDERS: PCP Family Medicine; Visit Provider Family Medicine
DX: K92.1 Melena (principal)
CPT/HCPCS: 82272

== ENCOUNTER 2022-07-13 12:27 | Emergency (ER) | payer MEDICARE, SELFPAY ==
[2022-07-13] VITALS (44 sets, daily range): BP systolic 76–106; BP diastolic 49–75; PULSE 60–81; RESP 13–20; TEMP 36.3–36.9; O2SAT 91–99
--- NOTE | ~2022-07-13 | XR_ITS ---
XR chest 1V portable DATE: 07/13/2022 13:33 INDICATION: Shortness of breath. Reflux and vomiting for 2 weeks. TECHNIQUE: Portable AP chest on 07/2022 at 1324 hours COMPARISON: 02/24/2022. Lateral chest FINDINGS: Left triple lead pacemaker device. Cardiomegaly. Aortic calcification. Surgical clips, left upper quadrant of abdomen. No pulmonary infiltrate or consolidation, pleural effusion or pulmonary vascular congestion or pneumo thorax. IMPRESSION: Cardiomegaly No active pulmonary disease Reviewed, dictated and finalized at location A.
--- NOTE | 2022-07-13 12:48 | ED.GENADULT ---
HPI - General Adult General Chief complaint: Nausea/Vomiting/Diarrhea Stated complaint: vomiting for 2 weeks Time Seen by Provider: 07/13/22 12:48 Source: patient Mode of arrival: ambulatory Limitations: no limitations History of Present Illness HPI narrative: 87-year-old complains of weakness and feeling exhausted. Had history of esophageal stenosis and had 4 other dilations. She feels like she needs to have another dilation. She has had reflux a hiatal herniaand she thhrew up 2 days ago hard for her to keep any food down. She is able to keep liquids down but when she leans over she get nauseated and tends to throw up. She gets lightheaded sitting but then it goes away quickly. Denies any diarrhea bleeding or bruising lumps or bumps she has had a cough with a little yellow sputum she had a little dyspnea on exertion. She thinks she is dehydrated and for the last 2 weeks she knows that she needs another esophageal dilatation. She called her GI doctor but does have appointment for several weeks. She says she came in to get hydrated so she could call her primary care provider Dr. Garcia. So he could get her in to see the GI doctor sooner for treatment. She denies any focal weakness chest pain. She has got chronic back pain from spinal stenosis allergies: Penicillin she can not take opiates past medical history she has had a hemorrhagic stroke that is on Eliquis for AFib Related Data Home Medications Medication Instructions Recorded Confirmed aspirin 81 mg tablet,delayed 81 mg PO DAILY 03/27/19 07/13/22 release (Mahnaz Low Dose Aspirin) metoprolol succinate 50 mg 50 mg PO DAILY 03/27/19 07/13/22 tablet,extended release 24 hr rosuvastatin 40 mg tablet 40 mg PO DAILY 03/27/19 07/13/22 spironolactone 25 mg tablet 12.5 mg PO DAILY 06/25/20 07/13/22 sacubitril 24 mg-valsartan 26 mg 1 tablet PO BID 11/26/20 07/13/22 tablet (Entresto) apixaban 5 mg tablet (Eliquis) 5 mg PO BID 04/23/21 07/13/22 amiodarone 200 mg tablet 100 mg DAILY 07/29/21 07/13/22 Allergies Allergy/AdvReac Type Severity Reaction Status Date / Time Penicillins Allergy Severe Anaphylactic Verified 06/24/22 07:48 Shock hydrocodone AdvReac Severe NAUSEA AND Verified 06/24/22 07:48 VOMITING oxycodone AdvReac Severe Gastrointestinal Verified 06/24/22 07:48 Upset PMFSH Past Medical History Medical History Acute intra-cranial hemorrhage Anastomotic stricture of stomach Atrial fibrillation CHF (congestive heart failure) Complications of gastric bypass surgery DVT (deep venous thrombosis) Dysphagia GERD (gastroesophageal reflux disease) History of pulmonary embolism Hyperlipidemia Hypertension Hypothyroidism Nondiabetic gastroparesis Pacemaker TIA (transient ischemic attack) Surgical History Surgical History AICD present, double chamber H/O craniotomy History of left knee replacement S/P left atrial appendage ligation Status post biventricular pacemaker Family History Family History Father Acute myocardial infarction Mother Acute myocardial infarction Other Cerebrovascular accident Diabetes mellitus Family history of arthritis Family history of heart disease in male family member before age 55 Social History Social History Smoking packs per day: 1 Smoking cigarettes per day: 20.0 Years smoked: 10 Smoking pack-years: 10.00 Smoking status: Former smoker Tobacco type: cigarettes Smoking end date: 02/10/72 Alcohol intake: never Substance use: never Substance use type: does not use Other substance usage details: QUIT SMOKING IN 1972. Lack of Transportation: No Lack of Food: Never True Current Housing: I Have Housing Concerned About Future Housing: No Difficul
--- NOTE | 2022-07-13 13:03 | ECG_ITS ---
Measurements Intervals [place] Rate: 70 P: 46 ND: 140 QRS: 127 QRSD: 143 T: -10 QT: 463 QTc: 501 Interpretive Statements SINUS RHYTHM WITH ELECTRONIC VENTRICULAR PACEMAKER ATYPICAL ECG COMPARED TO ECG 11/26/2020 13:45:31 NO SIGNIFICANT CHANGES Electronically Signed On 07-14-2022 9:29:16 CDT by Cuco Viera M.D.
[2022-07-13] MEDS: SODIUM CHLORIDE 0.9% IV 1,000 ML 100 ML IV CONT (13:33)
[2022-07-13 13:57] LABS: Hematocrit 39.8 % (35.0-42.0); Hemoglobin 12.8 g/dL (11.7-13.8); Mean Corpuscular HGB Conc 32.2 g/dL (32.0-36.0); Mean Corpuscular Hemoglobin 32.2 pg (27.0-31.0); Mean Corpuscular Volume 100.3 fL (78.0-102.0); Mean Platelet Volume 8.9 fl (9.2-11.8); Platelet Count Result 148 K/mm3 (150-420); Red Blood Count 3.97 M/mm3 (4.20-5.40); Red Cell Distribution Width 13.3 % (11.6-14.4); White Blood Count 5.6 K/mm3 (4.8-10.8)
[2022-07-13 14:09] LABS: Partial Thromboplastin Time 32.7 SEC (23.90-30.70); Prothrombin Time 11.3 Seconds (9.50-12.10)
[2022-07-13 14:12] LABS: Alanine Aminotransferase 28 U/L (14-59); Albumin Level 3.3 g/dL (3.4-5.0); Alkaline Phosphatase 87 U/L (46-116); Anion Gap 8 mmol/L (8-16); Aspartate Amino Transferase 27 U/L (15-37); Bilirubin,Total 0.5 mg/dL (0.00-1.00); Blood Urea Nitrogen 30 mg/dL (7-18); Calcium 9.1 mg/dL (8.5-10.1); Carbon Dioxide 28 mmol/L (21-32); Chloride 105 mmol/L (98-108); Estimated Glomerular Filt Rate 45; Glucose 93 mg/dL (70-99); Osmolality Calculated 298 mOsm/kg (285-295); Potassium 4.1 mmol/L (3.5-5.1); Sodium 141 mmol/L (136-145); Total Protein 7.4 g/dL (6.4-8.2)
[2022-07-13 15:00] LABS: NT Pro B Type Natriuretic Pept 309 pg/mL (0-450)
[2022-07-13 15:01] LABS: Lipase 28 U/L (16-77); Troponin I 8.1 ng/L (0.00-60.4)
--- NOTE | 2022-07-13 16:05 | PC.NURSE ---
pt drank half ensure bottle with no vomiting.
--- NOTE | 2022-07-13 16:18 | PC.NURSE ---
pt able to ambulate with personal cane with no assistance 100ft. denies dizziness or lightheadedness
== END 2022-07-13 19:20 | disposition short-term general hospital (02) ==
PROVIDERS: Emergency Provider Emergency Medicine; PCP Family Medicine
DX: E86.9 Volume depletion, unspecified (principal); E86.0 Dehydration; K22.2 Esophageal obstruction; I48.91 Unspecified atrial fibrillation; I11.0 Hypertensive heart disease with heart failure; I50.9 Heart failure, unspecified; Z86.73 Personal history of transient ischemic attack (TIA), and cerebral infarction without residual deficits; E78.5 Hyperlipidemia, unspecified; E03.9 Hypothyroidism, unspecified; Z79.82 Long term (current) use of aspirin; Z79.01 Long term (current) use of anticoagulants
CPT/HCPCS: 36415; 71045; 80053; 83605; 83690; 83880; 84484; 85027; 85610; 85730; 93005; 96360; 96361; 99285; J7030

== ENCOUNTER 2022-07-13 22:54 | Observation (INO) | payer MEDICARE, SELFPAY ==
--- NOTE | 2022-07-13 20:30 | ADMGEN ---
This patient, Sera Shaffer, was admitted to Medical Room 349-01. Patient/family oriented to hospital policies and general routines including ID bracelet, bed and alarms, visiting hours, pain management, procedures, bathroom and other care routines, personal items, smoking policy, room service/diet, and visiting hours. Information on how to activate the Rapid Response Team has been discussed. Patient/Family are encouraged to report perceived risks to care and to ask questions if they do not understand what they are told or what they should do.
[2022-07-13 20:40] VITALS: BMI 30.4
[2022-07-13 21:25] VITALS: BP 128/99; PULSE 65; RESP 16; TEMP 36.9; O2SAT 100
[2022-07-14] VITALS (14 sets, daily range): BP systolic 79–120; BP diastolic 57–69; PULSE 58–78; RESP 16–18; TEMP 36.2–36.7; O2SAT 96–97
[2022-07-14] MEDS: SODIUM CHLORIDE 0.9% IV 1,000 ML 100 ML IV CONT (00:08)
--- NOTE | 2022-07-14 01:12 | PM.IMHP ---
H&P: HPI History of Present Illness Date/Time: 07/13/22 23:45 Chief Complaint: Nausea, vomiting, and dysphagia. Narrative: This is an 87-year-old female with history of GERD, citric surgery in the 1980s with previous history of nonobstructive narrowing in the proximal stomach, hypertension, hyperlipidemia, hypothyroidism, history of DVT and PE, and other comorbidities who presented to the emergency department the [facility] earlier today with complaints of nausea, vomiting, and dysphagia for couple of weeks. It is not necessarily unusual for her to take several drinks of water while eating order to help food pass however over the past couple of weeks it has gotten much worse. It is now to the point where she is having nausea and occasional episodes of vomiting when trying to eat. She has been avoiding more solid foods and has been trying to drink protein shakes instead which she seems to tolerate. She has been feeling a bit lightheaded and dizzy with standing and she had positive orthostatic vital signs in the emergency department at [place]. Due to her history she is being transferred to [place] for GI consultation and probable EGD given her symptoms. At the time my evaluation she has no current complaints and she specifically denies epigastric and abdominal pain, current nausea, fever, chills, sweats, chest pain, shortness a breath, syncope, and near syncope. Review of Systems Review of Systems: Twelve systems were reviewed and are negative except for as per HPI. [facility] Past Medical History Medical History (Updated 07/14/22 @ 01:18 by Carla Rousseau PA-C) Acute intra-cranial hemorrhage Anastomotic stricture of stomach Atrial fibrillation CHF (congestive heart failure) Chronic kidney disease, stage 3 Complications of gastric bypass surgery DVT (deep venous thrombosis) Dysphagia GERD (gastroesophageal reflux disease) Heart failure with reduced ejection fraction Echocardiogram in February 2021 showed mild to moderately dilated left ventricle with mild concentric hypertrophy and moderately depressed global systolic function with an LVEF of 40 to 45% with a mild to moderately dilated right ventricle. History of pulmonary embolism Hyperlipidemia Hypertension Hypothyroidism Nondiabetic gastroparesis Pacemaker TIA (transient ischemic attack) Surgical History Surgical History (Updated 07/14/22 @ 01:14 by Carla Rousseau PA-C) AICD present, double chamber H/O craniotomy History of gastric bypass History of left knee replacement S/P left atrial appendage ligation Status post biventricular pacemaker Family History Family History Father Acute myocardial infarction Mother Acute myocardial infarction Other Cerebrovascular accident Diabetes mellitus Family history of arthritis Family history of heart disease in male family member before age 55 Social History Social History (Updated 07/14/22 @ 01:49 by Carla Rousseau PA-C) Social History: Surrogate medical decision maker: Erika Irby, daughter. Code status: Full code. Smoking packs per day: 1 Smoking cigarettes per day: 20.0 Years smoked: 10 Smoking pack-years: 10.00 Smoking status: Former smoker Tobacco type: cigarettes Smoking end date: 02/10/72 Alcohol intake: never Substance use: never Substance use type: does not use Lack of Transportation: No Lack of Food: Never True Current Housing: I Have Housing Concerned About Future Housing: No Difficulty Paying Gas/Electric Bills: No Difficulty Paying for Meds: No Currently Unemployed: No Education: High School Diploma/GED Difficulty w/ Childcare or Family Care: No Living arrangements: alone Additional living arrangements comments: . Spiritual care concerns: No Meds Home Medications and Allergies Home Medications Medication Instructions Recorded Confirmed
[2022-07-14] MEDS: LEVOTHYROXINE SODIUM 100 MCG TABLET PO (05:26)
[2022-07-14 06:00] LABS: Anion Gap 9 mmol/L (8-16); Blood Urea Nitrogen 24 mg/dL (7-17); Calcium 8.4 mg/dL (8.4-10.2); Carbon Dioxide 25 mmol/L (22-30); Chloride 107 mmol/L (98-107); Estimated CRCL calculation 48 ml/min; Estimated Glomerular Filt Rate > 60; Glucose 81 mg/dL (65-110); Magnesium 1.7 mg/dL (1.6-2.3); Potassium 3.7 mmol/L (3.4-5.0); Sodium 141 mmol/L (137-145)
[2022-07-14 09:18] LABS: Hematocrit 38.1 % (37.0-47.0); Hemoglobin 12.2 g/dL (12.0-15.0); Immature Granulocyte Percent A 0.2 % (0-0.5); Mean Corpuscular Hemoglobin 32.5 pg (26-34); Mean Corpuscular Volume 101.6 fl (80-100); Platelet Count Result 136 k/mm3 (150-375); Red Blood Count 3.75 M/mm3 (4.2-5.4); Red Cell Distribution Width 13.8 % (11.5-14.5); White Blood Count 4.4 K/mm3 (4.5-10.0)
[2022-07-14 09:19] LABS: Basophils Percent Auto 0.2 % (0.2-1.2); Eosinophils Absolute Auto 0.2 K/mm3 (0-0.3); Eosinophils Percent Auto 3.9 % (0-4.4); Immature Granulocyte Absolute 0.01 K/mm3 (0.00-0.031); Lymphocytes Absolute Auto 1.15 K/mm3 (0.9-3.2); Lymphocytes Percent Auto 26.2 % (18.3-44.2); Monocytes Absolute Auto 0.4 K/mm3 (0.1-0.6); Monocytes Percent Auto 8.7 % (2.6-8.5); Neutrophils Absolute Auto 2.7 K/mm3 (1.3-6.7); Neutrophils Percent Auto 60.8 % (45.5-73.1)
[2022-07-14] MEDS: METOPROLOL SUCCINATE EXT REL 50 MG TABCR PO (09:28)
[2022-07-14] MEDS: PANTOPRAZOLE 40 MG TABLET PO (09:28)
[2022-07-14] MEDS: AMIODARONE HCL 100 MG TABLET PO (12:47)
[2022-07-14] MEDS: SACUBITRIL/VALSARTAN 24-26 MG TABLET 1 TAB PO ×2 (12:48→19:56)
--- NOTE | 2022-07-14 16:22 | PM.IMPN ---
Progress Note: A&P Assessment and Plan (1) Dysphagia: Code(s): R13.10 - Dysphagia, unspecified Status: Acute Assessment and Plan: The patient presented to the emergency department at the outside facility for evaluation of nausea, vomiting, and dysphagia for the last couple of weeks. Transfer was initiated to [place] for consultation with Dr. Amaya for EGD GI consulted EGD scheduled for 07/15/2022 NPO after midnight Patient has long history of esophageal strictures and believes that this is her 3rd to 4th episode. (2) Orthostatic hypotension: Code(s): I95.1 - Orthostatic hypotension Status: Resolved Assessment and Plan: Blood pressures were soft and she had positive orthostatic vital signs at the outside facility. She was hydrated with crystalloid and her blood pressures have remained stable. 07/13 Continue with cautious IV fluid rehydration overnight given her history of heart failure IV fluids discontinued Orthostatic hypotension resolved. (3) Dehydration: Code(s): E86.0 - Dehydration Status: Resolved Assessment and Plan: Resolved These fluids discontinue (4) Chronic kidney disease, stage 3: Code(s): N18.30 - Chronic kidney disease, stage 3 unspecified Status: Chronic Assessment and Plan: Chronic Monitor BUN creatinine. (5) Heart failure with reduced ejection fraction: Code(s): I50.20 - Unspecified systolic (congestive) heart failure Status: Chronic Assessment and Plan: History of reduced ejection fraction. At this time she is clinically compensated. Her volume status will be monitored closely. Subjective Date/time seen: 07/14/22 16:22 Objective Data Vital Signs Vital Signs: Vital Signs - 24 hr 07/13/22 20:43 07/13/22 21:25 07/14/22 00:00 Temperature 98.4 F Pulse Rate 65 63 Respiratory Rate 16 Blood Pressure 128/99 H Pulse Oximetry 100 Oxygen Delivery Room Air 07/14/22 04:00 07/14/22 06:00 07/14/22 09:28 Temperature 97.1 F L Pulse Rate 60 64 68 Respiratory Rate 16 Blood Pressure 107/57 L Pulse Oximetry 97 Oxygen Delivery 07/14/22 10:35 07/14/22 10:36 07/14/22 10:36 Temperature Pulse Rate Respiratory Rate Blood Pressure 105/69 120/69 101/62 Pulse Oximetry Oxygen Delivery 07/14/22 12:47 07/14/22 14:00 Temperature 97.8 F Pulse Rate 62 58 L Respiratory Rate 18 Blood Pressure 104/68 Pulse Oximetry 96 Oxygen Delivery Intake/Output Intake/Output: Intake & Output 07/11/22 07/12/22 07/13/22 07/14/22 23:59 23:59 23:59 23:59 Intake Total 120 Balance 120 Meds/Results Medications: Active Medications Generic Name Dose Route Start Last Admin Trade Name Freq PRN Reason Stop Dose Admin Amiodarone HCl 100 mg 07/14/22 08:00 07/14/22 12:47 Amiodarone Hcl 100 Mg Tablet PO 100 mg DAILY@0800 [facility] Administration Levothyroxine Sodium 100 mcg 07/14/22 06:30 07/14/22 05:26 Levothyroxine Sodium 100 Mcg Tablet PO 100 mcg DAILY@0630 JUDITH Administration Metoprolol Succinate 50 mg 07/14/22 09:00 07/14/22 09:28 Metoprolol Succinate Ext Rel 50 Mg Tabcr PO 50 mg DAILY JUDITH Administration Ondansetron HCl 4 mg 07/14/22 01:52 Ondansetron Inj 4 Mg/2 Ml Vial IV PUSH Q6H PRN Nausea And Vomiting Pantoprazole Sodium 40 mg 07/14/22 09:00 07/14/22 09:28 Pantoprazole 40 Mg Tablet PO 40 mg DAILY JUDITH Administration Pregabalin 50 mg 07/14/22 21:00 Pregabalin (*Crx) 50 Mg Capsule PO Q12HR [facility] Sacubitril/Valsartan 1 tab 07/14/22 12:00 07/14/22 12:48 Sacubitril/Valsartan 24-26 Mg Tablet PO 1 tab Q12HR [facility] Administration Spironolactone 12.5 mg 07/15/22 09:00 Spironolactone 12.5 Mg Tablet PO DAILY [facility] Labs Labs: Laboratory Results - last 24 hr 07/14/22 05:38 WBC 4.4 L RBC 3.75 L Hgb 12.2 Hct 38.1 MCV 101.6 H MCH
--- NOTE | 2022-07-14 16:39 | WPDGICN ---
Assessment and Plan Assessment and plan (1) Nondiabetic gastroparesis: Code(s): K31.84 - Gastroparesis Status: Acute Assessment and Plan: this is related to remote gastric surgery, retained food and will have regurgitation and feeling sick she modified her diet but sometimes gets symptomatic will assess again tomorrow with another egd and consider dilation she did not tolerate reglan in the past (2) Anastomotic stricture of stomach: Code(s): K92.9 - Disease of digestive system, unspecified; K31.89 - Other diseases of stomach and duodenum Status: Acute (3) Orthostatic hypotension: Code(s): I95.1 - Orthostatic hypotension Status: Resolved Assessment and Plan: resolved (4) Dysphagia: Code(s): R13.10 - Dysphagia, unspecified Status: Acute GI Consult Note Consult date/time: 07/14/22 16:39 Reason for consult: dysphagia, regurgitation HPI: Sera Shaffer is a 87 year old female ?who is known to me from previous office visit and EGD. She had bariatric surgery in with previous EGD 2019, then 04/2021, repeat 07/2021 noted non-obstructive narrowing in proximal stomach with some retained food that was dilated up to 20 mm balloon. This helped both times, last time prescribed reglan but unfortunately did not tolerate (started dropping things). She is here with recurrent symptom of fullness after eating and sensation of food staying in upper chest then will cough up food, denies nausea. She has modified her diet but sometimes gets symptomatic, avoiding more solid foods and has been trying to drink protein shakes instead. Lately has been feeling lightheaded and dizzy with standing and she had positive orthostatic vital signs in the emergency department at [place].? Review of Systems Constitutional: Constitutional: Denies chills Eyes: Eyes: Denies blurry vision ENT: Reports Normal hearing present Cardiovascular: Cardiovascular: Denies chest pain Respiratory: Respiratory: Denies dyspnea Gastrointestinal: Gastrointestinal: Reports bloating Genitourinary: Genitourinary: Denies hematuria Musculoskeletal: Musculoskeletal: Denies arthralgias Integumentary/Breasts: Skin/Breast: Denies rash Neurologic: Denies Abnormal speech present Psychiatric: Psychiatric: Denies confusion [facility] Past Medical History Medical History (Updated 07/14/22 @ 16:31 by Angelica Bae PA-C) Acute intra-cranial hemorrhage Anastomotic stricture of stomach Atrial fibrillation CHF (congestive heart failure) Chronic kidney disease, stage 3 Complications of gastric bypass surgery DVT (deep venous thrombosis) Dysphagia GERD (gastroesophageal reflux disease) Heart failure with reduced ejection fraction Echocardiogram in February 2021 showed mild to moderately dilated left ventricle with mild concentric hypertrophy and moderately depressed global systolic function with an LVEF of 40 to 45% with a mild to moderately dilated right ventricle. History of pulmonary embolism Hyperlipidemia Hypertension Hypothyroidism Nondiabetic gastroparesis Pacemaker TIA (transient ischemic attack) Surgical History Surgical History (Updated 07/14/22 @ 01:14 by Carla Rousseau PA-C) AICD present, double chamber H/O craniotomy History of gastric bypass History of left knee replacement S/P left atrial appendage ligation Status post biventricular pacemaker Family History Family History Father Acute myocardial infarction Mother Acute myocardial infarction Other Cerebrovascular accident Diabetes mellitus Family history of arthritis Family history of heart disease in male family member before age 55 Social History Social History (Updated 07/14/22 @ 01:49 by Carla Rousseau PA-C) Social History: Surrogate medical decision maker: Erika Irby, daughter. Code status: Full code. Smoking packs per day: 1 Smoking c
[2022-07-14] MEDS: PREGABALIN (*CRX) 50 MG CAPSULE PO (19:56)
[2022-07-15] VITALS (10 sets, daily range): BP systolic 74–110; BP diastolic 36–69; PULSE 56–69; RESP 16–18; TEMP 36.6–37.3; O2SAT 94–97
[2022-07-15] MEDS: LEVOTHYROXINE SODIUM 100 MCG TABLET PO (05:17)
[2022-07-15 06:43] LABS: Basophils Percent Auto 0.6 % (0.2-1.2); Eosinophils Absolute Auto 0.3 K/mm3 (0-0.3); Eosinophils Percent Auto 4.8 % (0-4.4); Hematocrit 40.7 % (37.0-47.0); Immature Granulocyte Absolute 0.01 K/mm3 (0.00-0.031); Immature Granulocyte Percent A 0.2 % (0-0.5); Lymphocytes Absolute Auto 1.45 K/mm3 (0.9-3.2); Lymphocytes Percent Auto 27.9 % (18.3-44.2); Mean Corpuscular HGB Conc 31.9 g/dl (32-36); Mean Corpuscular Volume 100.2 fl (80-100); Mean Platelet Volume 9.6 fl (7.4-10.4); Monocytes Absolute Auto 0.4 K/mm3 (0.1-0.6); Monocytes Percent Auto 8.3 % (2.6-8.5); Neutrophils Percent Auto 58.2 % (45.5-73.1); Platelet Count Result 163 k/mm3 (150-375); Red Blood Count 4.06 M/mm3 (4.2-5.4); Red Cell Distribution Width 13.6 % (11.5-14.5); White Blood Count 5.2 K/mm3 (4.5-10.0)
[2022-07-15 06:59] LABS: Alanine Aminotransferase 25 U/L (6-35); Alkaline Phosphatase 75 U/L (38-126); Anion Gap 6 mmol/L (8-16); Aspartate Amino Transferase 35 U/L (14-36); Bilirubin,Total 0.6 mg/dL (0.2-1.3); Blood Urea Nitrogen 17 mg/dL (7-17); Calcium 9.3 mg/dL (8.4-10.2); Carbon Dioxide 32 mmol/L (22-30); Chloride 105 mmol/L (98-107); Estimated CRCL calculation 38 ml/min; Estimated Glomerular Filt Rate 59; Glucose 89 mg/dL (65-110); Potassium 3.7 mmol/L (3.4-5.0); Sodium 143 mmol/L (137-145)
[2022-07-15] MEDS: AMIODARONE HCL 100 MG TABLET PO (08:48)
[2022-07-15] MEDS: METOPROLOL SUCCINATE EXT REL 50 MG TABCR PO (08:49)
[2022-07-15] MEDS: SPIRONOLACTONE 12.5 MG TABLET PO (08:49)
[2022-07-15] MEDS: SACUBITRIL/VALSARTAN 24-26 MG TABLET 1 TAB PO (08:50)
[2022-07-15] MEDS: PANTOPRAZOLE 40 MG TABLET PO (08:50)
[2022-07-15] MEDS: PREGABALIN (*CRX) 50 MG CAPSULE PO (08:51)
--- NOTE | 2022-07-15 11:03 | WPDANESEPPF ---
Anes - Initial Pre Proc Eval Procedure: Operation Date: 07/15/22 15:45 Proposed Procedures p Esophagogastroduodenoscopy - Fredy Amaya MD Date/Time: 07/15/22 11:03 Surgeon: Barron Loving MD Pre Op Diagnosis: Orthostatic Hypotension,Dehydration,Dysphagia Patient Data Age: 87 Gender: F Height: 1.6 m Weight: 78.1 kg Last Vital Signs Temp 37.3 C 07/15/22 06:00 Pulse 56 L 07/15/22 08:49 Resp 16 07/15/22 06:00 BP 107/65 07/15/22 06:00 Pulse Ox 97 07/15/22 06:00 O2 Del Method Room Air 07/14/22 20:00 Allergies Allergy/AdvReac Type Severity Reaction Status Date / Time Penicillins Allergy Severe Anaphylactic Verified 07/15/22 13:25 Shock hydrocodone AdvReac Severe NAUSEA AND Verified 07/15/22 13:25 VOMITING oxycodone AdvReac Severe Gastrointestinal Verified 07/15/22 13:25 Upset Home Medications Medication Instructions Recorded Confirmed Type aspirin 81 mg tablet,delayed 81 mg PO DAILY 03/27/19 07/13/22 History release (Mahnaz Low Dose Aspirin) metoprolol succinate 50 mg 50 mg PO DAILY 03/27/19 07/13/22 History tablet,extended release 24 hr rosuvastatin 40 mg tablet 40 mg PO DAILY 03/27/19 07/13/22 History spironolactone 25 mg tablet 12.5 mg PO DAILY 06/25/20 07/13/22 History sacubitril 24 mg-valsartan 26 mg 1 tablet PO BID 11/26/20 07/13/22 History tablet (Entresto) apixaban 5 mg tablet (Eliquis) 5 mg PO BID 04/23/21 07/13/22 History amiodarone 200 mg tablet 100 mg PO DAILY 07/29/21 07/13/22 History acetaminophen 325 mg capsule 650 mg PO Q8H PRN pain #20 caps 01/06/22 07/13/22 Rx (Tylenol) pregabalin 50 mg capsule (Lyrica) 50 mg PO BID #60 caps 04/09/22 07/13/22 Rx levothyroxine 100 mcg tablet 100 mcg PO DAILY 07/13/22 07/13/22 History pantoprazole 40 mg tablet,delayed 40 mg PO DAILY 07/13/22 07/13/22 History release Laboratory Tests 07/15/22 06:29 WBC 5.2 K/mm3 (4.5-10.0) RBC 4.06 L M/mm3 (4.2-5.4) Hgb 13.0 g/dL (12.0-15.0) Hct 40.7 % (37.0-47.0) MCV 100.2 H fl (80-100) MCH 32.0 pg (26-34) MCHC 31.9 L g/dl (32-36) RDW 13.6 % (11.5-14.5) Plt Count 163 k/mm3 (150-375) MPV 9.6 fl (7.4-10.4) Immature Gran % (Auto) 0.2 % (0-0.5) Neut % (Auto) 58.2 % (45.5-73.1) Lymph % (Auto) 27.9 % (18.3-44.2) [place] % (Auto) 8.3 % (2.6-8.5) Eos % (Auto) 4.8 H % (0-4.4) Baso % (Auto) 0.6 % (0.2-1.2) Lymph # (Auto) 1.45 K/mm3 (0.9-3.2) [place] # (Auto) 0.4 K/mm3 (0.1-0.6) Eos # (Auto) 0.3 K/mm3 (0-0.3) Baso # (Auto) 0.0 K/mm3 (0.0-0.1) Abs Immat Gran (auto) 0.01 K/mm3 (0.00-0.031) Absolute Neuts (auto) 3.0 K/mm3 (1.3-6.7) Absolute Nucleated RBC 0.0 K/mm3 (0.0-0.012) Nucleated RBC % 0.0 % (0.0-0.2) Sodium 143 mmol/L (137-145) Potassium 3.7 mmol/L (3.4-5.0) Chloride 105 mmol/L (98-107) Carbon Dioxide 32 H mmol/L (22-30) Anion Gap 6 L mmol/L (8-16) BUN 17 mg/dL (7-17) Creatinine 0.90 mg/dL (0.7-1.0) Estim Creat Clear Calc 38 ml/min Estimated GFR 59 (59 - ) Glucose 89 mg/dL (65-110) Calcium 9.3 mg/dL (8.4-10.2) Total Bilirubin 0.6 mg/dL (0.2-1.3) AST 35 U/L (14-36) ALT 25 U/L (6-35) Alkaline Phosphatase 75 U/L (38-126) Total Protein 8.0 g/dL (6.3-8.2) Albumin 4.0 g/dL (3.5-5.1) Patient hx anesthesia problems: none Family hx anesthesia problems: none Results Review: All pre-operative results and documents have been reviewed as part of the pre-operative evaluation. [facility] Past Medical History Medical History (Updated 07/14/22 @ 16:31 by Angelica Bae PA-C) Acute intra-cranial hemorrhage Anastomotic stricture of stomach Atrial fibrillation CHF (congestive heart failure) Chronic kidney disease, stage 3 Complications of gastric bypass surgery DVT (deep venous thrombosis) Dysphagia GERD (gastroes
--- NOTE | 2022-07-15 13:06 | PM.IMPN ---
Progress Note: A&P Assessment and Plan (1) Dysphagia: Code(s): R13.10 - Dysphagia, unspecified Status: Acute Assessment and Plan: The patient presented to the emergency department at the outside facility for evaluation of nausea, vomiting, and dysphagia for the last couple of weeks. Transfer was initiated to [place] for consultation with Dr. Amaya for EGD GI consulted EGD scheduled for 07/15/2022 NPO after midnight Patient has long history of esophageal strictures and believes that this is her 3rd to 4th episode. (2) Orthostatic hypotension: Code(s): I95.1 - Orthostatic hypotension Status: Resolved Assessment and Plan: Blood pressures were soft and she had positive orthostatic vital signs at the outside facility. She was hydrated with crystalloid and her blood pressures have remained stable. 07/13 Continue with cautious IV fluid rehydration overnight given her history of heart failure IV fluids discontinued Orthostatic hypotension resolved. (3) Dehydration: Code(s): E86.0 - Dehydration Status: Resolved Assessment and Plan: Resolved These fluids discontinue (4) Chronic kidney disease, stage 3: Code(s): N18.30 - Chronic kidney disease, stage 3 unspecified Status: Chronic Assessment and Plan: Chronic Monitor BUN creatinine. (5) Heart failure with reduced ejection fraction: Code(s): I50.20 - Unspecified systolic (congestive) heart failure Status: Chronic Assessment and Plan: History of reduced ejection fraction. At this time she is clinically compensated. Her volume status will be monitored closely. Subjective Date/time seen: 07/15/22 13:06 Interval history: Patient doing well today with no new complaints at this time. She is scheduled for EGD later today. Patient will likely be able to discharge after procedure if she can tolerate diet. Will need clearance from GI before discharge. She has no new complaints at this time. Review of Systems Review of Systems: All systems reviewed & are unremarkable except as noted in HPI and below Exam Narrative: GENERAL: Comfortable, no acute distress HENMT: moist mucous membranes EYES: EOM intact b/l NECK: no lymphadenopathy RESPIRATORY: clear to auscultation CARDIO: RRR GI: soft, nontender, bowel sounds present SKIN: no rashes EXTREMITIES: no edema, redness or tenderness Objective Data Vital Signs Vital Signs: Vital Signs - 24 hr 07/14/22 14:00 07/14/22 20:00 07/14/22 20:00 Temperature 97.8 F Pulse Rate 58 L 73 Respiratory Rate 18 Blood Pressure 104/68 Pulse Oximetry 96 Oxygen Delivery Room Air 07/14/22 21:00 07/14/22 21:04 07/14/22 21:07 Temperature 98.1 F Pulse Rate 67 69 73 Respiratory Rate 18 Blood Pressure 99/64 L 83/58 L 79/64 L Pulse Oximetry 96 97 96 Oxygen Delivery 07/14/22 23:43 07/15/22 04:00 07/15/22 06:00 Temperature 99.2 F Pulse Rate 78 61 68 Respiratory Rate 16 Blood Pressure 107/65 Pulse Oximetry 97 Oxygen Delivery 07/15/22 08:48 07/15/22 08:49 07/15/22 11:12 Temperature Pulse Rate 56 L 56 L Respiratory Rate Blood Pressure 102/69 Pulse Oximetry Oxygen Delivery 07/15/22 11:12 07/15/22 11:12 Temperature Pulse Rate Respiratory Rate Blood Pressure 97/62 L 94/63 L Pulse Oximetry Oxygen Delivery Intake/Output Intake/Output: Intake & Output 07/12/22 07/13/22 07/14/22 07/15/22 23:59 23:59 23:59 23:59 Intake Total 600 50 Balance 600 50 Meds/Results Medications: Active Medications Generic Name Dose Route Start Last Admin Trade Name Janiya PRN Reason Stop Dose Admin Amiodarone HCl 100 mg 07/14/22 08:00 07/15/22 08:48 Amiodarone Hcl 100 Mg Tablet PO 100 mg DAILY@0800 JUDITH Administration Levothyroxine Sodium 100 mcg 07/14/22 06:30 07/15/22 05:17 Levothyroxine Sodium 100 Mcg Tablet PO 100 mcg
[2022-07-15] MEDS: LACTATED RINGERS 1,000 ML 150 ML IV CONT (13:35)
--- NOTE | 2022-07-15 15:53 | PM.DS ---
DS: Admitting Diagnosis Discharge Date 07/15/22 Admitting Diagnosis Esophageal stricture DS: Discharge Diagnosis Discharge Diagnosis (1) Dysphagia: Code(s): R13.10 - Dysphagia, unspecified Status: Acute Assessment and Plan: The patient presented to the emergency department at the outside facility for evaluation of nausea, vomiting, and dysphagia for the last couple of weeks. Transfer was initiated to [place] for consultation with Dr. Amaya for EGD GI consulted EGD scheduled for 07/15/2022 and esophageal dilation performed. Patient has long history of esophageal strictures and believes that this is her 3rd to 4th episode. Post EGD patient okay to discharge per GI. (2) Orthostatic hypotension: Code(s): I95.1 - Orthostatic hypotension Status: Resolved Assessment and Plan: Blood pressures were soft and she had positive orthostatic vital signs at the outside facility. She was hydrated with crystalloid and her blood pressures have remained stable. 07/13 Continue with cautious IV fluid rehydration overnight given her history of heart failure IV fluids discontinued Orthostatic hypotension resolved. (3) Dehydration: Code(s): E86.0 - Dehydration Status: Resolved Assessment and Plan: Resolved These fluids discontinue (4) Chronic kidney disease, stage 3: Code(s): N18.30 - Chronic kidney disease, stage 3 unspecified Status: Chronic Assessment and Plan: Chronic Monitor BUN creatinine. (5) Heart failure with reduced ejection fraction: Code(s): I50.20 - Unspecified systolic (congestive) heart failure Status: Chronic Assessment and Plan: History of reduced ejection fraction. At this time she is clinically compensated. Her volume status will be monitored closely. DS: Summary Hospital Course Hospital Course: This is a 87-year-old female with a history of GERD, nonobstructive narrowing of the proximal stomach, hypertension, hyperlipidemia, hypothyroidism, history UT and P presents to the ED on 07/14/2022 with complaints of nausea, vomiting and dysphagia for a couple weeks. Patient typically have 6 several drops of water to help food pass but is increased in intensity several weeks prior to presentation. GI was consulted and patient underwent EGD on 07/15/2022. Findings included gastric stricture and unspecified esophagitis. Patient underwent balloon dilation of the esophagus. After EGD patient was cleared for discharge and okay to resume home medications. Patient very eager for discharge to return home. Patient is stable and medically cleared for discharge. Time Spent with Patient Time attestation: Total time spent providing and/or coordinating discharge services: Exam Narrative: GENERAL: Comfortable, no acute distress HENMT: moist mucous membranes EYES: EOM intact b/l NECK: no lymphadenopathy RESPIRATORY: clear to auscultation CARDIO: RRR GI: soft, nontender, bowel sounds present SKIN: no rashes EXTREMITIES: no edema, redness or tenderness DS: Data Data Completed and Pending Labs on day of discharge: Labs from last 24 hours 07/15/22 06:29 WBC 5.2 RBC 4.06 L Hgb 13.0 Hct 40.7 MCV 100.2 H MCH 32.0 MCHC 31.9 L RDW 13.6 Plt Count 163 MPV 9.6 Immature Gran % (Auto) 0.2 Neut % (Auto) 58.2 Lymph % (Auto) 27.9 [place] % (Auto) 8.3 Eos % (Auto) 4.8 H Baso % (Auto) 0.6 Lymph # (Auto) 1.45 [place] # (Auto) 0.4 Eos # (Auto) 0.3 Baso # (Auto) 0.0 Abs Immat Gran (auto) 0.01 Absolute Neuts (auto) 3.0 Absolute Nucleated RBC 0.0 Nucleated RBC % 0.0 Sodium 143 Potassium 3.7 Chloride 105 Carbon Dioxide 32 H Anion Gap 6 L BUN 17 Creatinine 0.90 Estim Creat Clear Calc 38 Estimated GFR 59 Glucose 89 Calcium 9.3 Total Bilirubin 0.6 AST 35 ALT 25 Alkaline Phosphatase 75 Total Protein 8.0 Albumin 4.0 Discharge Plan Discharge Attending physic
== END 2022-07-15 16:50 | disposition home or self-care (01) ==
PROVIDERS: Internal Medicine Critical Care Medicine; Internal Medicine Gastroenterology; Physician Assistant; Admitting Provider Internal Medicine; PCP Family Medicine; Visit Provider Internal Medicine
PROC: 0DJ08ZZ Inspection of Upper Intestinal Tract, Via Natural or Artificial Opening Endoscopic (ICD-10-PCS; CPT 43235; principal; 2022-07-15 15:45)
DX: K20.90 Esophagitis, unspecified without bleeding (principal); K31.2 Hourglass stricture and stenosis of stomach; R13.10 Dysphagia, unspecified; I95.1 Orthostatic hypotension; E86.0 Dehydration; K31.84 Gastroparesis; I13.0 Hypertensive heart and chronic kidney disease with heart failure and stage 1 through stage 4 chronic kidney disease, or unspecified chronic kidney disease; N18.30 Chronic kidney disease, stage 3 unspecified; I50.20 Unspecified systolic (congestive) heart failure; K21.9 Gastro-esophageal reflux disease without esophagitis; Z98.84 Bariatric surgery status; E78.5 Hyperlipidemia, unspecified; E03.9 Hypothyroidism, unspecified; E66.9 Obesity, unspecified; Z68.30 Body mass index [BMI] 30.0-30.9, adult; Z95.810 Presence of automatic (implantable) cardiac defibrillator; Z86.711 Personal history of pulmonary embolism; Z86.73 Personal history of transient ischemic attack (TIA), and cerebral infarction without residual deficits; Z87.891 Personal history of nicotine dependence; Z79.82 Long term (current) use of aspirin; Z79.01 Long term (current) use of anticoagulants; Z79.1 Long term (current) use of non-steroidal anti-inflammatories (NSAID); Z79.899 Other long term (current) drug therapy
CPT/HCPCS: 43245; 36415; 80048; 80053; 83735; 85025; A9270; C1726; G0378; J2704; J7030; J7120

== ENCOUNTER 2022-07-18 12:17 | Outpatient (CLI) | payer MEDICARE, SELFPAY ==
[2022-07-18 12:31] LABS: Hematocrit 39.3 % (35.0-42.0); Hemoglobin 12.4 g/dL (11.7-13.8); Mean Corpuscular HGB Conc 31.6 g/dL (32.0-36.0); Mean Corpuscular Hemoglobin 32.4 pg (27.0-31.0); Mean Corpuscular Volume 102.6 fL (78.0-102.0); Mean Platelet Volume 9.2 fl (9.2-11.8); Platelet Count Result 169 K/mm3 (150-420); Red Blood Count 3.83 M/mm3 (4.20-5.40); Red Cell Distribution Width 13.6 % (11.6-14.4); White Blood Count 4.4 K/mm3 (4.8-10.8)
[2022-07-18 12:56] LABS: Alanine Aminotransferase 25 U/L (14-59); Albumin Level 3.3 g/dL (3.4-5.0); Alkaline Phosphatase 91 U/L (46-116); Anion Gap 10 mmol/L (8-16); Aspartate Amino Transferase 20 U/L (15-37); Bilirubin,Total 0.3 mg/dL (0.00-1.00); Blood Urea Nitrogen 35 mg/dL (7-18); Calcium 8.9 mg/dL (8.5-10.1); Carbon Dioxide 27 mmol/L (21-32); Chloride 106 mmol/L (98-108); Estimated Glomerular Filt Rate 50; Glucose 91 mg/dL (70-99); Osmolality Calculated 304 mOsm/kg (285-295); Potassium 4.1 mmol/L (3.5-5.1); Sodium 143 mmol/L (136-145); Total Protein 6.7 g/dL (6.4-8.2)
== END 2022-07-18 12:18 | disposition home or self-care (01) ==
LOC: CHSLAB 12:19
PROVIDERS: PCP Family Medicine; Visit Provider Family Medicine
DX: I50.20 Unspecified systolic (congestive) heart failure (principal)
CPT/HCPCS: 36415; 80053; 85027

== ENCOUNTER 2022-07-21 10:51 | Outpatient (CLI) | payer MEDICARE, SELFPAY ==
--- NOTE | ~2022-07-21 | XR_ITS ---
EXAMINATION: XR chest 2V 07/21/2022 11:21 INDICATION: Long-term use of antirhythmic product PROCEDURE: 2 view chest COMPARISON: Comparison to multiple prior studies sequentially, with oldest reviewed study dated 09/28 13. FINDINGS: The lungs are clear. The cardiomediastinal silhouette is within normal limits. There are no pleural effusions. There is no pneumothorax suspected. Pacemaker leads are stable. There is acce ntuated thoracic kyphosis. There is atherosclerosis of the aorta. IMPRESSION: 1: NO ACUTE CARDIOPULMONARY DISEASE. Reviewed, dictated and finalized at location []
[2022-07-21 11:53] LABS: Alanine Aminotransferase 24 U/L (14-59); Albumin Level 3.2 g/dL (3.4-5.0); Alkaline Phosphatase 83 U/L (46-116); Aspartate Amino Transferase 26 U/L (15-37); Bilirubin Direct 0.1 mg/dL (0-0.2); Bilirubin,Total 0.3 mg/dL (0.00-1.00); Thyroid Stimulating Hormone 1.55 uIU/mL (0.36-3.74); Total Protein 6.7 g/dL (6.4-8.2)
== END 2022-07-21 10:52 | disposition home or self-care (01) ==
LOC: CHSLAB 10:54
PROVIDERS: PCP Family Medicine
DX: I48.0 Paroxysmal atrial fibrillation (principal); Z79.899 Other long term (current) drug therapy
CPT/HCPCS: 36415; 71046; 80076; 84443

== ENCOUNTER 2022-10-01 08:45 | Outpatient (CLI) | payer MEDICARE, SELFPAY ==
--- NOTE | ~2022-10-01 | XR_ITS ---
XR chest 2V 10/01/2022 09:30 Indication: Long-term use of antirhythmic Procedure: 2 view chest Comparison: Comparison to multiple prior studies sequentially, with oldest reviewed study dated 03/27. Findings: Cardiomegaly. Pacemaker leads are stable. No focal air space disease, pulmonary edema, pleu ral effusion or suspected pneumothorax. Accentuated thoracic kyphosis. Stable surgical changes left u pper abdomen. Impression: 1: No acute cardiopulmonary disease. Reviewed, dictated and finalized at location B. Impression: 1: No acute cardiopulmonary disease.
[2022-10-01 09:48] LABS: Alanine Aminotransferase 26 U/L (14-59); Albumin Level 3.4 g/dL (3.4-5.0); Alkaline Phosphatase 76 U/L (46-116); Aspartate Amino Transferase 28 U/L (15-37); Bilirubin Direct 0.2 mg/dL (0-0.2); Bilirubin,Total 0.5 mg/dL (0.00-1.00); Thyroid Stimulating Hormone 4.82 uIU/mL (0.36-3.74)
== END 2022-10-01 08:46 | disposition home or self-care (01) ==
PROVIDERS: PCP Family Medicine
DX: I48.0 Paroxysmal atrial fibrillation (principal); Z79.899 Other long term (current) drug therapy
CPT/HCPCS: 36415; 71046; 80076; 84443

== ENCOUNTER 2022-12-23 12:28 | Emergency (ER) | payer MEDICARE, SELFPAY ==
--- NOTE | ~2022-12-23 | CT_ITS ---
EXAMINATION: CT brain wo con DATE: 12/23/2022 13:04 INDICATION: Head injury. Fall. TECHNIQUE: Computed tomography (CT) of the head was performed without intravenous contrast. The mA wa s adjusted according to patient size. Iterative reconstruction technique was employed. The dose-lengt h product was 302.38 mGy-cm. COMPARISON: Head CT 12/25/2013 FINDINGS: There is no intracranial hemorrhage, acute infarction, or abnormal intracranial mass lesion . There are scattered areas of low attenuation in the cerebral white matter, which is within normal l imits for the patient's age. The ventricles are normal in size. There is mucosal thickening in the p aranasal sinuses. There is sclerosis of the tomlin of the sphenoid sinuses, consistent with chronic si nusitis. There is a trace left mastoid effusion. There are old left-sided rodríguez holes. IMPRESSION: 1. Normal aging brain. Reviewed, dictated and finalized at location A. [employer]ATION TE[employer]NOLOGY ACCOUNT MANAGER IMPRESSION: 1. Normal aging brain.
--- NOTE | ~2022-12-23 | CT_ITS ---
EXAMINATION: CT facial bones wo con DATE: 12/23/2022 13:04 INDICATION: Head injury. TECHNIQUE: Computed tomography (CT) of the facial bones and maxillofacial region was performed withou t intravenous contrast. Automated exposure control and iterative reconstruction technique were employ ed. The dose-length product was 302.38 mGy-cm. COMPARISON: None. FINDINGS: There are likely changes of ocular lens replacement surgeries. There is left lateral face s oft tissue swelling. There is rightward deviation of the nasal septum. There is mucosal thickening in the paranasal sinuses. There is sclerosis of the tomlin of the sphenoid sinus, consistent with chroni c sinusitis. There is severe cervical spondylosis. IMPRESSION: 1. No fracture. 2. Chronic sinusitis. Reviewed, dictated and finalized at location A. EWATER PROJECT ENGINEER
[2022-12-23 12:29] VITALS: BP 129/81; PULSE 77; RESP 18; TEMP 36.8; O2SAT 94
[2022-12-23 12:36] VITALS: BP 129/81; PULSE 77; RESP 18; TEMP 36.8; O2SAT 94
--- NOTE | 2022-12-23 12:40 | ED.FALL ---
HPI - Fall General Chief Complaint: Fall Stated Complaint: Fall/face injury Time Seen by Provider: 12/23/22 12:39 History of Present Illness HPI Narrative: This is an 87-year-old female, with history heart disease and A-fib on Eliquis, who presents to the emergency department after a fall. The patient states she was stooped, pushing floor, when she lost her balance, striking the left side of her face for she denies loss of consciousness. She complains of 2/10 pain to the left face and swelling. She denies chest pain, shortness of breath, palpitations or lightheadedness. She has no other complaints at this time. She states her last tetanus vaccination was within the past 5 years. Related Data Home Medications Medication Instructions Recorded Confirmed aspirin 81 mg tablet,delayed 81 mg PO DAILY 03/27/19 12/23/22 release (Mahnaz Low Dose Aspirin) rosuvastatin 40 mg tablet 40 mg PO DAILY 03/27/19 12/23/22 spironolactone 25 mg tablet 12.5 mg PO DAILY 06/25/20 12/23/22 sacubitril 24 mg-valsartan 26 mg 1 tablet PO BID 11/26/20 12/23/22 tablet (Entresto) apixaban 5 mg tablet (Eliquis) 5 mg PO BID 04/23/21 12/23/22 amiodarone 200 mg tablet 100 mg PO DAILY 07/29/21 12/23/22 metoprolol succinate 50 mg See Rx Instructions PO DAILY 08/05/22 12/23/22 tablet,extended release 24 hr Allergies Allergy/AdvReac Type Severity Reaction Status Date / Time Penicillins Allergy Severe Anaphylactic Verified 12/23/22 12:32 Shock hydrocodone AdvReac Severe NAUSEA AND Verified 12/23/22 12:32 VOMITING oxycodone AdvReac Severe Gastrointestinal Verified 12/23/22 12:32 Upset Review of Systems Review of Systems: CONSTITUTIONAL: Denies fever, chills, or sweats. EYES: Denies visual changes, redness, or discharge. CARDIOVASCULAR: Denies chest pain, palpitations, or edema. RESPIRATORY: Denies cough or dyspnea. GASTROINTESTINAL: Denies abdominal pain, nausea, vomiting, or diarrhea. SKIN: Denies rash or itching. MUSCULOSKELETAL: Denies back pain, joint pain, or myalgia. NEUROLOGIC: Denies headache, numbness, dizziness, or weakness. PSYCHIATRIC: Denies anxiety or depression. [facility] [place] Past Medical History Medical History Acute intra-cranial hemorrhage Anastomotic stricture of stomach Atrial fibrillation CHF (congestive heart failure) Chronic kidney disease, stage 3 Complications of gastric bypass surgery DVT (deep venous thrombosis) Dysphagia GERD (gastroesophageal reflux disease) Heart failure with reduced ejection fraction Echocardiogram in February 2021 showed mild to moderately dilated left ventricle with mild concentric hypertrophy and moderately depressed global systolic function with an LVEF of 40 to 45% with a mild to moderately dilated right ventricle. History of pulmonary embolism Hyperlipidemia Hypertension Hypothyroidism Nondiabetic gastroparesis Pacemaker TIA (transient ischemic attack) Surgical History Surgical History AICD present, double chamber H/O craniotomy History of gastric bypass History of left knee replacement S/P left atrial appendage ligation Status post biventricular pacemaker Family History Family History Father Acute myocardial infarction Mother Acute myocardial infarction Other Cerebrovascular accident Diabetes mellitus Family history of arthritis Family history of heart disease in male family member before age 55 Social History Social History Social History: Surrogate medical decision maker: Erika Irby, daughter. Code status: Full code. Smoking packs per day: 1 Smoking cigarettes per day: 20.0 Years smoked: 10 Smoking pack-years: 10.00 Smoking status: Former smoker Tobacco type: cigarettes Smoking end date: 02/10/72 Alcohol intake:
== END 2022-12-23 13:25 | disposition home or self-care (01) ==
PROVIDERS: Emergency Provider Preventive Medicine Aerospace Medicine; PCP Family Medicine
DX: S01.81XA Laceration without foreign body of other part of head, initial encounter (principal); I48.91 Unspecified atrial fibrillation; I13.0 Hypertensive heart and chronic kidney disease with heart failure and stage 1 through stage 4 chronic kidney disease, or unspecified chronic kidney disease; I50.9 Heart failure, unspecified; N18.30 Chronic kidney disease, stage 3 unspecified; Z79.82 Long term (current) use of aspirin; Z79.01 Long term (current) use of anticoagulants; Z79.899 Other long term (current) drug therapy; Z86.718 Personal history of other venous thrombosis and embolism; Z87.891 Personal history of nicotine dependence; W19.XXXA Unspecified fall, initial encounter
CPT/HCPCS: 70450; 70486; 99284

== ENCOUNTER 2023-06-05 11:21 | Outpatient (CLI) | payer MEDICARE, SELFPAY ==
[2023-06-05 12:11] LABS: Troponin I 8.5 ng/L (0.00-60.4)
== END 2023-06-05 11:22 | disposition home or self-care (01) ==
LOC: CHSLAB 11:22
PROVIDERS: PCP Family Medicine; Visit Provider Family Medicine
DX: R07.9 Chest pain, unspecified (principal)
CPT/HCPCS: 36415; 84484

== ENCOUNTER 2023-07-03 11:52 | Outpatient (NON) | payer MEDICARE, SELFPAY | END 2023-07-03 11:53 | disposition home or self-care (01) | LOC: CHSLAB 11:53 | PROVIDERS: Visit Provider Family Medicine | DX: R39.9 Unspecified symptoms and signs involving the genitourinary system (principal) | CPT/HCPCS: 87077; 87086; 87088; 87181 ==

== ENCOUNTER 2023-07-27 02:06 | Day surgery (SDC) | payer MEDICARE, SELFPAY ==
[2023-07-13 15:20] VITALS: BMI 27.9
--- NOTE | 2023-07-23 11:03 | PC.NURSE ---
Spoke with _PATIENT regarding medication ELIQUIS. Pt. verbalizes understanding that the last dose of ELIQUIS is to be taken on 07/24/2023 and the Endoscopist will instruct them when to restart after the procedure.
--- NOTE | 2023-07-24 10:57 | PC.NURSE ---
Received CRMD form from device clinic for Dr. Barber. EP recommendation to have the rep. reprogram device prior to procedure and after. Rep. with [employer] called and I spoke with Kayden Montes- he states that reprogramming the device or magnet use is not necessary for the short burst cautery used for EGD/COLON'S. I spoke with Dr. Garcia and he is in agreement with the rep. and we will not need them to come out prior to the procedure, we will call the rep. on Thursday if they are needed after the procedure.
--- NOTE | 2023-07-27 12:27 | WPDANESEPPF ---
Anes - Initial Pre Proc Eval Procedure: Operation Date: 07/27/23 15:00 Proposed Procedures p Esophagogastroduodenoscopy - Fredy Amaya MD Date/Time: 07/27/23 12:27 Surgeon: Fredy Amaya MD Pre Op Diagnosis: Melena Patient Data Age: 88 Gender: F Height: 1.6 m Weight: 71.5 kg Allergies Allergy/AdvReac Type Severity Reaction Status Date / Time Penicillins Allergy Severe Anaphylactic Verified 07/27/23 13:54 Shock hydrocodone AdvReac Severe NAUSEA AND Verified 07/27/23 13:54 VOMITING oxycodone AdvReac Severe Gastrointestinal Verified 07/27/23 13:54 Upset opiods AdvReac Severe Gastrointestinal Uncoded 07/17/23 09:12 Upset Home Medications Medication Instructions Recorded Confirmed Type aspirin 81 mg tablet,delayed 81 mg PO DAILY 03/27/19 07/13/23 History release (Mahnaz Low Dose Aspirin) rosuvastatin 40 mg tablet 40 mg PO HS 03/27/19 07/13/23 History sacubitril 24 mg-valsartan 26 mg 1 tablet PO BID 11/26/20 07/13/23 History tablet (Entresto) apixaban 5 mg tablet (Eliquis) 5 mg PO BID 04/23/21 07/13/23 History acetaminophen 325 mg capsule 650 mg PO Q8H PRN pain #20 caps 01/06/22 07/13/23 Rx (Tylenol) levothyroxine 100 mcg tablet See Rx Instructions .Route 06/15/23 07/13/23 Rx .COMPLEX #90 tabs cyclosporine 0.05 % eye drops in a 1 drp EACH EYE BID 07/13/23 07/13/23 History dropperette (Restasis) [id number] 8 mg-folic 400 1 tablet PO DAILY 07/13/23 07/13/23 History mcg-K 50 mcg-lutein 300 mcg tablet (Centrum Silver Women) Patient hx anesthesia problems: none Family hx anesthesia problems: none Results Review: All pre-operative results and documents have been reviewed as part of the pre-operative evaluation. [facility] Past Medical History Medical History (Updated 06/05/23 @ 11:18 by Qasim Garrett DO) Acute intra-cranial hemorrhage Anastomotic stricture of stomach Atrial fibrillation CHF (congestive heart failure) Chronic kidney disease, stage 3 Complications of gastric bypass surgery DVT (deep venous thrombosis) Dysphagia GERD (gastroesophageal reflux disease) Heart failure with reduced ejection fraction Echocardiogram in February 2021 showed mild to moderately dilated left ventricle with mild concentric hypertrophy and moderately depressed global systolic function with an LVEF of 40 to 45% with a mild to moderately dilated right ventricle. History of pulmonary embolism Hyperlipidemia Hypertension Hypothyroidism Nondiabetic gastroparesis Pacemaker TIA (transient ischemic attack) Surgical History Surgical History (Updated 07/06/23 @ 14:56 by Fredy Amaya MD) AICD present, double chamber H/O craniotomy History of gastric bypass History of left knee replacement S/P left atrial appendage ligation Status post biventricular pacemaker Family History Family History Father Acute myocardial infarction Mother Acute myocardial infarction Other Cerebrovascular accident Diabetes mellitus Family history of arthritis Family history of heart disease in male family member before age 55 Social History Social History Social History: Surrogate medical decision maker: Erika Irby, daughter. Code status: Full code. Smoking packs per day: 1 Smoking cigarettes per day: 20.0 Years smoked: 10 Smoking pack-years: 10.00 Smoking status: Former smoker Tobacco type: cigarettes Smoking end date: 02/10/72 Alcohol intake: never Substance use: never Substance use type: does not use Lack of Transportation: No Lack of Food: Never True Current Housing: I Have Housing Concerned About Future Housing: No Difficulty Paying Gas/Electric Bills: No Difficulty Paying for Meds: No Currently Unemployed: No Education: High School Diploma/GED Difficulty w/ Childcare
[2023-07-27 13:55] VITALS: BP 140/96; PULSE 78; RESP 18; TEMP 36.2; O2SAT 99
[2023-07-27] MEDS: LACTATED RINGERS 1,000 ML 150 ML IV CONT (14:07)
--- NOTE | 2023-07-27 15:24 | PM.HPGS ---
History of Present Illness History of Present Illness Consent: Risks, benefits, and alternatives have been discussed and questions answered. Patient agrees to proceed with procedure. Chief complaint: gastroparesis, n/v Narrative: Sera Shaffer is a 88 year old female here for egd, had bariatric surgery in with multiple EGDs noted non-obstructive narrowing in proximal stomach with some retained food that was dilated up to 20 mm balloon as complication from surgery, here again with similar symptom Review of Systems Review of Systems: All systems reviewed & are unremarkable except as noted in HPI and below [facility] Past Medical History Medical History (Updated 06/05/23 @ 11:18 by Qasim Garrett DO) Acute intra-cranial hemorrhage Anastomotic stricture of stomach Atrial fibrillation CHF (congestive heart failure) Chronic kidney disease, stage 3 Complications of gastric bypass surgery DVT (deep venous thrombosis) Dysphagia GERD (gastroesophageal reflux disease) Heart failure with reduced ejection fraction Echocardiogram in February 2021 showed mild to moderately dilated left ventricle with mild concentric hypertrophy and moderately depressed global systolic function with an LVEF of 40 to 45% with a mild to moderately dilated right ventricle. History of pulmonary embolism Hyperlipidemia Hypertension Hypothyroidism Nondiabetic gastroparesis Pacemaker TIA (transient ischemic attack) Surgical History Surgical History (Updated 07/27/23 @ 15:26 by Fredy Amaya MD) AICD present, double chamber H/O craniotomy History of gastric bypass History of gastric surgery History of left knee replacement S/P left atrial appendage ligation Status post biventricular pacemaker Family History Family History Father Acute myocardial infarction Mother Acute myocardial infarction Other Cerebrovascular accident Diabetes mellitus Family history of arthritis Family history of heart disease in male family member before age 55 Social History Social History Social History: Surrogate medical decision maker: Erika Irby, daughter. Code status: Full code. Smoking packs per day: 1 Smoking cigarettes per day: 20.0 Years smoked: 10 Smoking pack-years: 10.00 Smoking status: Former smoker Tobacco type: cigarettes Smoking end date: 02/10/72 Alcohol intake: never Substance use: never Substance use type: does not use Lack of Transportation: No Lack of Food: Never True Current Housing: I Have Housing Concerned About Future Housing: No Difficulty Paying Gas/Electric Bills: No Difficulty Paying for Meds: No Currently Unemployed: No Education: High School Diploma/GED Difficulty w/ Childcare or Family Care: No Living arrangements: with family Additional living arrangements comments: . Spiritual care concerns: No Meds Home Medications and Allergies Home Medications Medication Instructions Recorded Confirmed Type aspirin 81 mg tablet,delayed 81 mg PO DAILY 03/27/19 07/13/23 History release (Mahnaz Low Dose Aspirin) rosuvastatin 40 mg tablet 40 mg PO HS 03/27/19 07/13/23 History sacubitril 24 mg-valsartan 26 mg 1 tablet PO BID 11/26/20 07/13/23 History tablet (Entresto) apixaban 5 mg tablet (Eliquis) 5 mg PO BID 04/23/21 07/13/23 History acetaminophen 325 mg capsule 650 mg PO Q8H PRN pain #20 caps 01/06/22 07/13/23 Rx (Tylenol) levothyroxine 100 mcg tablet See Rx Instructions .Route 06/15/23 07/13/23 Rx .COMPLEX #90 tabs cyclosporine 0.05 % eye drops in a 1 drp EACH EYE BID 07/13/23 07/13/23 History dropperette (Restasis) mrbtgmfl-[id number] 8 mg-folic 400 1 tablet PO DAILY 07/13/23 07/13/23 History mcg-K 50 mcg-lutein 300 mcg tablet (Centrum Silver Women) Allergies Allergy/AdvReac Type Severity Reaction Status Date /
[2023-07-27 15:31] VITALS: BP 124/67; PULSE 81; RESP 23; O2SAT 99
[2023-07-27 15:41] VITALS: BP 134/83; PULSE 82; RESP 24; O2SAT 99
[2023-07-27 15:51] VITALS: BP 138/79; PULSE 89; RESP 25; O2SAT 98
== END 2023-07-27 16:01 | disposition home or self-care (01) ==
PROVIDERS: Absent Provider Family Medicine; PCP Family Medicine; Visit Provider Internal Medicine Gastroenterology
PROC: 0DJ08ZZ Inspection of Upper Intestinal Tract, Via Natural or Artificial Opening Endoscopic (ICD-10-PCS; CPT 43235; principal; 2023-07-27 15:00)
DX: K21.00 Gastro-esophageal reflux disease with esophagitis, without bleeding (principal); K44.9 Diaphragmatic hernia without obstruction or gangrene; K31.2 Hourglass stricture and stenosis of stomach; K31.84 Gastroparesis; K95.89 Other complications of other bariatric procedure; Y83.8 Other surgical procedures as the cause of abnormal reaction of the patient, or of later complication, without mention of misadventure at the time of the procedure; I13.0 Hypertensive heart and chronic kidney disease with heart failure and stage 1 through stage 4 chronic kidney disease, or unspecified chronic kidney disease; I50.9 Heart failure, unspecified; N18.30 Chronic kidney disease, stage 3 unspecified; I48.91 Unspecified atrial fibrillation; E78.5 Hyperlipidemia, unspecified; Z95.0 Presence of cardiac pacemaker; Z86.73 Personal history of transient ischemic attack (TIA), and cerebral infarction without residual deficits; Z86.711 Personal history of pulmonary embolism; Z86.718 Personal history of other venous thrombosis and embolism; Z87.891 Personal history of nicotine dependence; Z79.82 Long term (current) use of aspirin
CPT/HCPCS: 43245; J2704; J7120

== ENCOUNTER 2023-08-04 13:17 | Outpatient (NON) | payer MEDICARE, SELFPAY ==
[2023-08-04 13:25] LABS: Appearance Urine Clear (Clear); Bilirubin Urine Negative (Negative); Blood Urine Negative (Negative); Color Urine Light Yellow (Yellow); Glucose Urine UA Negative (Negative); Ketones Urine Negative (Negative); Leukocyte Esterase Ur Negative LEU/UL (Negative); Nitrate Urine Negative (Negative); Protein Urine Trace (Negative); Urobilinogen Urine 0.2 mg/dL (0.2-1.0); pH Urine 5.5 (5.0-8.0)
[2023-08-04 13:34] LABS: Add Urine Microscopic? YES; Bacteria Urine None seen /hpf; RBC Urine None seen /hpf (0-2); Squamous Epithelial Cell Urine Few /hpf (Few); WBC Urine Rare /hpf (0-3)
[2023-08-04 13:35] LABS: Mucus Urine Moderate /lpf
== END 2023-08-04 13:18 | disposition home or self-care (01) ==
LOC: CHSLAB 13:19
PROVIDERS: Visit Provider Nurse Practitioner Family
DX: R39.15 Urgency of urination (principal)
CPT/HCPCS: 81001

== ENCOUNTER 2023-08-19 12:12 | Outpatient (CLI) | payer MEDICARE, SELFPAY ==
[2023-08-19 12:45] LABS: Basophils Absolute Auto 0.02 K/mm3 (0.00-0.10); Basophils Percent Auto 0.4 % (0.0-1.0); Eosinophils Absolute Auto 0.16 K/mm3 (0.02-0.50); Eosinophils Percent Auto 3.2 % (1.0-6.0); Hematocrit 39.1 % (35.0-42.0); Hemoglobin 12.4 g/dL (11.7-13.8); Immature Granulocyte Absolute 0.01 K/mm3 (0.00-0.00); Immature Granulocyte Percent A 0.2 % (0.0-0.0); Lymphocytes Absolute Auto 1.23 K/mm3 (1.10-4.50); Lymphocytes Percent Auto 24.6 % (18.0-42.0); Mean Corpuscular HGB Conc 31.7 g/dL (32-36); Mean Corpuscular Hemoglobin 30.8 pg (27.0-31.0); Mean Corpuscular Volume 97.3 fL (78.0-102.0); Mean Platelet Volume 8.5 fl (9.2-11.8); Monocytes Absolute Auto 0.41 K/mm3 (0.10-0.90); Monocytes Percent Auto 8.2 % (2.0-11.0); Neutrophils Absolute Auto 3.18 K/mm3 (1.70-7.20); Neutrophils Percent Auto 63.4 % (50.0-70.0); Platelet Count Result 161 K/mm3 (150-420); Red Blood Count 4.02 M/mm3 (4.20-5.40); Red Cell Distribution Width 18.1 % (11.6-14.4)
[2023-08-19 12:46] LABS: Appearance Urine Clear (Clear); Bilirubin Urine Negative (Negative); Blood Urine Trace-intact (Negative); Color Urine Light Yellow (Yellow); Glucose Urine UA Negative (Negative); Ketones Urine Negative (Negative); Leukocyte Esterase Ur Negative (Negative); Nitrate Urine Negative (Negative); Protein Urine Negative (Negative); Specific Grav Ur <= 1.005 (1.010-1.020); Urobilinogen Urine 0.2 mg/dL (0.2-1.0); pH Urine 5.5 (5.0-8.0)
[2023-08-19 12:52] LABS: Add Urine Microscopic? YES; RBC Urine None seen /hpf (0-2); Squamous Epithelial Cell Urine Rare /hpf (Few); WBC Urine None seen /hpf (0-3)
[2023-08-19 12:53] LABS: Bacteria Urine Rare /hpf
[2023-08-19 13:35] LABS: Alanine Aminotransferase 32 U/L (14-59); Albumin Level 3.4 g/dL (3.4-5.0); Alkaline Phosphatase 60 U/L (46-116); Anion Gap 8 mmol/L (4-12); Aspartate Amino Transferase 29 U/L (15-37); Bilirubin,Total 0.5 mg/dL (0.00-1.00); Blood Urea Nitrogen 26 mg/dL (7-18); Calcium 8.7 mg/dL (8.5-10.1); Carbon Dioxide 31 mmol/L (21-32); Chloride 104 mmol/L (98-108); Estimated Glomerular Filt Rate > 60; Ferritin 26 ng/mL (8-252); Glucose 89 mg/dL (70-99); Magnesium 1.8 mg/dL (1.8-2.4); Osmolality Calculated 299 mOsm/kg (285-295); Potassium 3.8 mmol/L (3.5-5.1); Sodium 143 mmol/L (136-145); Vitamin B12 619 pg/mL (193-986)
[2023-08-19 13:36] LABS: Folic Acid > 20.0 ng/mL (8.6->20)
[2023-08-19 13:37] LABS: Thyroid Stimulating Hormone Reflex 1.33 u/IU/mL (0.36-3.74)
== END 2023-08-19 12:13 | disposition home or self-care (01) ==
LOC: CHSLAB 12:15
PROVIDERS: Nurse Practitioner Family; PCP Family Medicine; Visit Provider Family Medicine
DX: R32 Unspecified urinary incontinence (principal); D50.9 Iron deficiency anemia, unspecified; E53.8 Deficiency of other specified B group vitamins; E03.9 Hypothyroidism, unspecified; R53.83 Other fatigue
CPT/HCPCS: 36415; 80053; 81001; 82607; 82728; 82746; 83735; 84443; 85025

== ENCOUNTER 2023-08-21 11:41 | Outpatient (CLI) | payer MEDICARE, SELFPAY ==
--- NOTE | ~2023-08-21 | US_ITS ---
EXAMINATION: US arterial ankle brachial ind DATE: 08/21/2023 12:24 INDICATION: Peripheral arterial disease. TECHNIQUE: Segmental pressures and plethysmographic and Doppler waveforms of the brachial and lower e xtremity arteries were obtained. COMPARISON: None. FINDINGS: Right and left brachial artery pressures of 121 mm Hg and 125 mm Hg, respectively, are concordant (no rmal difference <= 30 mmHg). The right ankle-brachial index (KAMLESH) could not be measured due to inability to cuff occlude the arter ies (normal >= 0.9-1.0). The right great toe-brachial index (TBI) is 1.10 (normal >= 0.65). Arterial Doppler waveforms are monophasic in dorsalis pedis and biphasic in posterior tibial artery. The left KAMLESH could not be measured due to inability to cuff occlude the arteries. The left TBI is 0.8 8. Arterial Doppler waveforms are biphasic in dorsalis pedis and triphasic in posterior tibial artery . IMPRESSION: 1. No significant arterial occlusive disease. Reviewed, dictated and finalized at location E.
== END 2023-08-21 11:42 | disposition home or self-care (01) ==
LOC: CHSIMG 11:44
PROVIDERS: PCP Family Medicine; Visit Provider Family Medicine
DX: I73.9 Peripheral vascular disease, unspecified (principal)
CPT/HCPCS: 93922

== ENCOUNTER 2023-08-26 15:12 | Outpatient (CLI) | payer MEDICARE, SELFPAY ==
[2023-08-26 16:07] LABS: SARS-CoV-2 RNA PCR Negative (Negative)
[2023-08-26 16:09] LABS: Influenza B QL RT-PCR Negative (Negative)
[2023-08-26 16:10] LABS: Influenza A QL RT-PCR Negative (Negative)
== END 2023-08-26 15:13 | disposition home or self-care (01) ==
PROVIDERS: PCP Family Medicine; Visit Provider Nurse Practitioner Family
DX: R06.02 Shortness of breath (principal)
CPT/HCPCS: 87636

== ENCOUNTER 2023-08-28 07:25 | Outpatient (CLI) | payer MEDICARE, SELFPAY ==
[2023-08-28 08:14] LABS: Cholesterol 103 mg/dL (0-200); HDL Direct 37 mg/dL (40-60); LDL Cholesterol Calculated 58 mg/dL (<130); Triglycerides 42 mg/dL (0-150)
== END 2023-08-28 07:26 | disposition home or self-care (01) ==
LOC: CHSLAB 07:30
PROVIDERS: PCP Family Medicine
DX: E78.00 Pure hypercholesterolemia, unspecified (principal)
CPT/HCPCS: 36415; 80061

== ENCOUNTER 2023-10-28 15:41 | Outpatient (CLI) | payer MEDICARE, SELFPAY ==
--- NOTE | ~2023-10-28 | CT_ITS ---
CT lumbar spine wo con Ordering provider: Qasim Garrett DO History: 88 years Female with . M54.9 - Dorsalgia, unspecified . Comparison: November 26, 2020 Technique: CT lumbar spine without contrast. Automated exposure control and iterative reconstruction technique were employed. The dose-length product was 1394.38 mGy-cm. FINDINGS: VERTEBRAE: Minimal anterolisthesis at the level of L4-L5. Minimal retrolisthesis at the level of L1-L 2. Mild dextroscoliosis. Otherwise, Normal height and alignment. No subluxation or visible acute frac ture. DISC SPACES: Narrowing of the disc L1-L2. Facet joint disease at the level of L4-L5 and L5-S1. T12-L1: No stenosis. L1-L2: No stenosis. Diffuse disc bulge with osteophyte slight narrowing of the left intervertebral f oramen. L2-L3: No stenosis. Diffuse disc bulge with osteophytes. L3-L4: No stenosis. Is diffuse disc bulge with osteophyte formation. L4-L5: Mild spinal canal stenosis secondary to broad based disc bulge, facet arthropathy, and ligame ntum flavum hypertrophy. Slight narrowing of the foramina with no definite root compression. L5-S1: Mild spinal canal stenosis secondary to broad based disc bulge, facet arthropathy, and ligame ntum flavum hypertrophy. osteophyte formation. Slight narrowing of the foramina with mild root compre ssion bilaterally. PARASPINOUS SOFT TISSUES: Mild atheromatous disease of the abdominal aorta. Postoperative changes in the left paraspinal area. Bilateral sacroiliitis. Soft tissue density in the left kidney most likely a cyst. Ultrasound evaluat ion advised. IMPRESSION: Multilevel degenerative disc disease, mild stenoses and neural impingement. No significant change from previous examination. Reviewed, dictated and finalized at location A.
== END 2023-10-28 15:42 | disposition home or self-care (01) ==
PROVIDERS: PCP Family Medicine; Visit Provider Family Medicine
DX: G89.29 Other chronic pain (principal); M54.9 Dorsalgia, unspecified; M51.36 Other intervertebral disc degeneration, lumbar region; M48.061 Spinal stenosis, lumbar region without neurogenic claudication
CPT/HCPCS: 72131

== ENCOUNTER 2023-12-27 08:30 | Emergency (ER) | payer MEDICARE, SELFPAY ==
[2023-12-27] VITALS (10 sets, daily range): BP systolic 159–171; BP diastolic 80–99; PULSE 62–75; RESP 16–18; TEMP 36.3; O2SAT 90–99
--- NOTE | ~2023-12-27 | XR_ITS ---
Right Shoulder Technique: AP and scapular Y views were obtained. Clinical History: Pain Findings: No fracture or dislocation is seen. Osseous alignment is anatomic. The glenohumeral and acr omioclavicular joint spaces are preserved. There is amorphous calcification over the topography of th e rotator cuff.. Impression: Amorphous calcification involving the rotator cuff region. Correlate for calcific tendinitis or other dystrophic change. No acute fracture or dislocation. Reviewed, dictated and finalized at location M. [employer]DW[employer]OR[employer] TECHNICIAN Impression: Amorphous calcification involving the rotator cuff region. Correlate for calcif ic tendinitis or other dystrophic change. No acute fracture or dislocation.
--- NOTE | 2023-12-27 08:43 | ED.GENADULT ---
HPI - General Adult General Chief complaint: Extremity Injury, Upper Stated complaint: right shoulder pain Time Seen by Provider: 12/27/23 08:34 Source: patient Mode of arrival: ambulatory Limitations: no limitations History of Present Illness HPI narrative: patient woke up 2 days ago with right shoulder pain after hanging drapes for several hours the day before. Hurts to move it. Took a Tylenol No. 3 this morning. she says it really did not help much. Ice and heat tried he helped a little bit. Patient has a chronic history of lower back pain and spinal stenosis she just saw a neurosurgeon last week and there is nothing they can do about it pus was not that significant according to the neurosurgeon. She is voiding and stooling fine without fever cough runny nose sore throat dizziness or lightheadedness chest palpitation chest pain shortness of breath cough rash or itching dizziness or lightheadedness or any other complaints MD complaint: Right shoulder pain Related Data Home Medications Medication Instructions Recorded Confirmed aspirin 81 mg tablet,delayed 81 mg PO DAILY 03/27/19 12/27/23 release (Mahnaz Low Dose Aspirin) rosuvastatin 40 mg tablet 40 mg PO HS 03/27/19 12/27/23 sacubitril 24 mg-valsartan 26 mg 1 tablet PO BID 11/26/20 12/27/23 tablet (Entresto) apixaban 5 mg tablet (Eliquis) 5 mg PO BID 04/23/21 12/27/23 cyclosporine 0.05 % eye drops in a 1 drp EACH EYE BID 07/13/23 12/27/23 dropperette (Restasis) greaxnhz-rjca-samx 8 mg-folic 400 1 tablet PO DAILY 07/13/23 12/27/23 mcg-K 50 mcg-lutein 300 mcg tablet (Centrum Silver Women) pantoprazole 40 mg tablet,delayed 40 mg PO Q12H PRN Acid Reflux 12/27/23 12/27/23 release vibegron 75 mg tablet (Gemtesa) 75 mg PO DAILY 12/27/23 12/27/23 Allergies Allergy/AdvReac Type Severity Reaction Status Date / Time Penicillins Allergy Severe Anaphylactic Verified 12/11/23 10:39 Shock hydrocodone AdvReac Severe NAUSEA AND Verified 12/11/23 10:39 VOMITING oxycodone AdvReac Severe Gastrointestinal Verified 12/11/23 10:39 Upset opiods AdvReac Severe Gastrointestinal Uncoded 12/11/23 10:39 Upset Review of Systems Review of Systems: All systems reviewed & are unremarkable except as noted in HPI and below [facility] Past Medical History Medical History Acute intra-cranial hemorrhage Anastomotic stricture of stomach Atrial fibrillation CHF (congestive heart failure) Chronic kidney disease, stage 3 Complications of gastric bypass surgery DVT (deep venous thrombosis) Dysphagia GERD (gastroesophageal reflux disease) Heart failure with reduced ejection fraction Echocardiogram in February 2021 showed mild to moderately dilated left ventricle with mild concentric hypertrophy and moderately depressed global systolic function with an LVEF of 40 to 45% with a mild to moderately dilated right ventricle. History of pulmonary embolism Hyperlipidemia Hypertension Hypothyroidism Nondiabetic gastroparesis Pacemaker TIA (transient ischemic attack) Surgical History Surgical History AICD present, double chamber H/O craniotomy History of gastric bypass History of gastric surgery History of left knee replacement S/P left atrial appendage ligation Status post biventricular pacemaker Family History Family History Father Acute myocardial infarction Mother Acute myocardial infarction Other Cerebrovascular accident Diabetes mellitus Family history of arthritis Family history of heart disease in male family member before age 55 Social History Social History Social History: Surrogate medical decision maker: Erika Irby, daughter. Code status: Full code. Smoking packs per day: 1 Smoking cigarettes per day: 20.0 Years smoked: 10 Smoking pack-years: 10.00 Smoking status: Former smoker Tobacco type: cigarettes Smoking end date: 02/10/72 Alcohol intake: never Substance use: never Substance use type: does not use Do You Feel Safe in your Home?: Yes Lack of Transportation: No Lack of Food: Never True Current Housing: I Have Housing Concerned About Future Housing: No Difficulty Paying Gas/Electric Bills: No Difficulty Paying for Meds: No Currently Unemployed: No Education: High School Diploma/GED Difficulty w/ Childcare or Family Care: No Living arrangements: with family Additional living arrangements comments: . Spiritual care concerns: No Exam Narrative: White female patient with moderate distress.? Head normocephalic, atraumatic.? Eyes conjunctiva pink sclera nonicteric.? Extraocular movements are intact.? Ears externally normal.? Oropharynx is clear with moist mucous membranes without exudates.? Neck is supple nontender no lymphadenopathy.? Back is nontender.? Lungs are clear.? Heart is regular rate and irregularly irregular rhythm without murmurs gallops or rubs.? Chest wall nontender. ? Extremities no cyanosis clubbing or edema. right shoulder slight decreased range of motion tenderness diffusely. Deltoid nerve testing normal. Right elbow full range of motion nontender. Right upper extremity neurovascular intact.? Skin is warm and dry without rashes or lesions.? Neurological patient is alert and oriented x4.? Motor and sensory grossly intact.? Gait is normal. Course Vital Signs Vital signs: Vital Signs Temperature 36.3 C L 12/27/23 08:30 Pulse Rate 71 12/27/23 08:30 Respiratory Rate 18 12/27/23 08:30 Blood Pressure 162/88 H 12/27/23 08:30 Pulse Oximetry 99 12/27/23 08:30 Oxygen Delivery Room Air 12/27/23 08:30 Temperature 36.3 C L 12/27/23 08:30 Pulse Rate 71 12/27/23 08:30 Respiratory Rate 18 12/27/23 08:30 Blood Pressure 162/88 H 12/27/23 08:30 Pulse Oximetry 99 12/27/23 08:30 Oxygen Delivery Room Air 12/27/23 08:30 Medical Decision Making MDM Narrative Medical decision making narrative: Impression: Amorphous calcification involving the rotator cuff region. Correlate for calcific tendinitis or other dystrophic change. No acute fracture or dislocation. ? Patient placed in room: One ? History and physical was performed. Novelty 5 given right shoulder x-ray per radiologist: Impression: Amorphous calcification involving the rotator cuff region. Correlate for calcific tendinitis or other dystrophic change. No acute fracture or dislocation. Independent Historian:Patient External Source Review: Differential Dx includes but not limited to: rotator cuff injury arthritis fracture Medications were Reviewed: home meds reviewed patient is on Eliquis for AFib Medications given: Novelty 5 patient says this usually makes her nauseated but she is willing to take it because of her pain is 10/10 Independently Interpreted by me: Shared decision Making: evaluation was discussed all questions were asked and answered patient agreed with plan. Social Situation Impacting Patients Care: Patient lives by herself she says her daughter from [place] coming to see her today. Discussed with Dr. VERDIN DIAGNOSIS: Acute right shoulder pain DISPOSITION : discharge home CONDITION AT DISCHARGE: stable Vital Signs Vital Signs: Vital Signs Temperature 36.3 C L 12/27/23 08:30 Pulse Rate 71 12/27/23 08:30 Respiratory Rate 18 12/27/23 08:30 Blood Pressure 162/88 H 12/27/23 08:30 Pulse Oximetry 99 12/27/23 08:30 Oxygen Delivery Room Air 12/27/23 08:30 Temperature 36.3 C L 12/27/23 08:30 Pulse Rate 71 12/27/23 08:30 Respiratory Rate 18 12/27/23 08:30 Blood Pressure 162/88 H 12/27/23 08:30 Pulse Oximetry 99 12/27/23 08:30 Oxygen Delivery Room Air 12/27/23 08:30 Discharge Plan Discharge Clinical Impression: Acute shoulder pain Qualifiers: Laterality: right Qualified Code(s): M25.511 - Pain in right shoulder Patient Disposition: Home, Self-Care Condition: Stable Instructions: Shoulder Pain (ED) Additional Instructions: Ice packs and or low heating pad for 20 minutes as needed for pain. He follow-up with your primary care provider or your orthopedist tomorrow further evaluation and treatment. Novelty 5 4 times a day as needed for pain. Zofran 4 mg oral dissolvable tablet every 4 hours as needed for nausea vomiting. Return if you get worse or develops any new symptoms. Prescriptions: New ondansetron 4 mg tablet,disintegrating 4 mg PO Q6H PRN (Reason: nausea and vomiting) Qty: 15 0RF hydrocodone-acetaminophen 5-325 mg tablet 1 tablet PO QID PRN (Reason: pain) Qty: 20 0RF No Action Entresto 24-26 mg Tablet 1 tablet PO BID acetaminophen [Tylenol] 325 mg capsule 650 mg PO Q8H PRN (Reason: pain) Qty: 20 0RF pantoprazole 40 mg tablet,delayed release (DR/EC) 40 mg PO Q12H PRN (Reason: Acid Reflux) Gemtesa 75 mg tablet 75 mg PO DAILY aspirin [Mahnaz Low Dose Aspirin] 81 mg tablet,delayed release (DR/EC) 81 mg PO DAILY rosuvastatin 40 mg tablet 40 mg PO HS Eliquis 5 mg tablet 5 mg PO BID cyclosporine [Restasis] 0.05 % dropperette 1 drp EACH EYE BID Centrum Silver Women 8 mg iron-400 mcg-50 mcg Tablet 1 tablet PO DAILY levothyroxine 100 mcg tablet See Rx Instructions .ROUTE .COMPLEX Qty: 90 2RF Dose Instruction: TAKE 1 TABLET BY MOUTH EVERY DAY Rx Instructions: TAKE 1 TABLET BY MOUTH EVERY DAY Follow-up/Referrals: Qasim Garrett DO [Primary Care Provider] - Time of Disposition: 09:32
--- NOTE | 2023-12-27 08:52 | PC.NURSE ---
0845 pt to xray via wheelchair. 0853 pt return to room . call del real in reach, family member in room with patient.
--- NOTE | 2023-12-27 08:58 | PC.NURSE ---
pt standing in room, uncomfortable to sit or lay down on cot. dr bedoya in with pt at this time
[2023-12-27] MEDS: HYDROcodone/acetaminophen (*CRX) 5-325 MG TABLET 1 TAB PO (09:22)
[2023-12-27] MEDS: ONDANSETRON HCL ODT 4 MG TABLET PO (09:24)
--- NOTE | 2023-12-27 09:50 | PC.NURSE ---
dr bedoya in room with pt and daughter . requesting more pain medications. explained allergies to dr bedoya regarding both norco and opiods.
[2023-12-27] MEDS: fentaNYL CITRATE INJ (*CRX) 100 MCG/2 ML VIAL 30 MCG IV PUSH ×2 (10:05→10:42)
--- NOTE | 2023-12-27 10:26 | PC.NURSE ---
no complaint of nausea or vomiting after norco/fentanyl given.
--- NOTE | 2023-12-27 11:00 | PC.NURSE ---
dr bedoya in room with pt and daughter. discussing discharge plan.
--- NOTE | 2023-12-27 11:19 | PC.NURSE ---
1112 pt ambulated steadily from cot to hallway into wheelchair, pt able to lower self with both arms on hand rail of wheelchair with no complaint of pain or facial grimacing noted. daughter states im just going to take her to [facility], i dont know why she cant be admitted for iv pain medications for pain management over night explained again with discharge instruction spoke with hospitalist regarding admission and felt admission was not needed at this time. discharge instructions reviewed with pt and daughter who is the POA. reviewed shoulder pain education, rx sent electronically to [facility] and they are open today 11-4pm. sent disk of xray with pt per dr bedoya request.
== END 2023-12-27 11:12 | disposition home or self-care (01) ==
PROVIDERS: Emergency Provider Emergency Medicine; PCP Family Medicine
DX: M25.511 Pain in right shoulder (principal); I13.0 Hypertensive heart and chronic kidney disease with heart failure and stage 1 through stage 4 chronic kidney disease, or unspecified chronic kidney disease; I50.9 Heart failure, unspecified; N18.30 Chronic kidney disease, stage 3 unspecified; E03.9 Hypothyroidism, unspecified; I48.91 Unspecified atrial fibrillation; Z79.01 Long term (current) use of anticoagulants; Z79.82 Long term (current) use of aspirin; Z79.899 Other long term (current) drug therapy; Z87.891 Personal history of nicotine dependence
CPT/HCPCS: 73030; 96374; 96376; 99284; A4565; A9270; J3010

== ENCOUNTER 2024-01-05 13:03 | Outpatient (CLI) | payer MEDICARE, SELFPAY ==
[2024-01-05 13:28] LABS: Add Urine Microscopic? YES; Bilirubin Urine Negative (Negative); Blood Urine Negative (Negative); Glucose Urine UA Negative (Negative); Ketones Urine Negative (Negative); Leukocyte Esterase Ur 1+ (Negative); Nitrate Urine Positive (Negative); Protein Urine 3+ (Negative); Specific Grav Ur <= 1.005 (1.010-1.020); Urobilinogen Urine 0.2 mg/dL (0.2-1.0); pH Urine 8.5 (5.0-8.0)
[2024-01-05 13:46] LABS: Appearance Urine Cloudy (Clear); Bacteria Urine 2+ /hpf; Color Urine Yellow (Yellow); RBC Urine None seen /hpf (0-2); Squamous Epithelial Cell Urine Few /hpf (Few); Triple Phosphate Crystal Urine Present /hpf
== END 2024-01-05 13:04 | disposition home or self-care (01) ==
PROVIDERS: PCP Family Medicine; Visit Provider Family Medicine
DX: R32 Unspecified urinary incontinence (principal)
CPT/HCPCS: 81001

== ENCOUNTER 2024-01-15 14:32 | Emergency (ER) | payer MEDICARE, SELFPAY ==
[2024-01-15 14:40] VITALS: BP 113/90; PULSE 71; RESP 18; TEMP 36.6; O2SAT 98
--- NOTE | 2024-01-15 14:44 | ED.GIBLEED ---
HPI - GI Bleed General Chief complaint: GI Bleed Stated complaint: vomiting blood Source: patient Mode of arrival: ambulatory Limitations: no limitations History of Present Illness HPI Narrative: Patient is an 88-year-old female with recent prednisone use and 1 time small to medium amount of hematemesis. She had a UTI and is on Cipro. She also has cervical neck problems and was on prednisone. patient takes Eliquis. complaint: blood streaked emesis and gross hematemesis Onset (ago): day(s) (1) Pain Consistency: intermittent and now resolved Severity: mild Relieving factors: none Exacerbating factors: none Context: other ( Patient had an event of hematemesis today x1 and was concerned and came to the ER) Associated symptoms: denies other symptoms Treatments Prior to Arrival: none Related Data Home Medications Medication Instructions Recorded Confirmed aspirin 81 mg tablet,delayed 81 mg PO DAILY 03/27/19 12/27/23 release (Mahnaz Low Dose Aspirin) rosuvastatin 40 mg tablet 40 mg PO HS 03/27/19 12/27/23 sacubitril 24 mg-valsartan 26 mg 1 tablet PO BID 11/26/20 12/27/23 tablet (Entresto) apixaban 5 mg tablet (Eliquis) 5 mg PO BID 04/23/21 12/27/23 cyclosporine 0.05 % eye drops in a 1 drp EACH EYE BID 07/13/23 12/27/23 dropperette (Restasis) yvoruzti-vlxb-eacc 8 mg-folic 400 1 tablet PO DAILY 07/13/23 12/27/23 mcg-K 50 mcg-lutein 300 mcg tablet (Centrum Silver Women) pantoprazole 40 mg tablet,delayed 40 mg PO Q12H PRN Acid Reflux 12/27/23 12/27/23 release vibegron 75 mg tablet (Gemtesa) 75 mg PO DAILY 12/27/23 12/27/23 Allergies Allergy/AdvReac Type Severity Reaction Status Date / Time Penicillins Allergy Severe Anaphylactic Verified 12/11/23 10:39 Shock hydrocodone AdvReac Severe NAUSEA AND Verified 12/11/23 10:39 VOMITING oxycodone AdvReac Severe Gastrointestinal Verified 12/11/23 10:39 Upset opiods AdvReac Severe Gastrointestinal Uncoded 12/11/23 10:39 Upset Review of Systems Review of Systems: All systems reviewed & are unremarkable except as noted in HPI and below Constitutional: Constitutional: Reports no additional constitutional complaints Eyes: Eyes: Reports no additional eye complaints ENT: Reports system reviewed and no additional complaints, except as documented Cardiovascular: Cardiovascular: Reports no additional cardiovascular complaints Respiratory: Respiratory: Reports no additional respiratory complaints Gastrointestinal: Gastrointestinal: Reports no additional gastrointestinal complaints Genitourinary: Genitourinary: Reports no additional female genitourinary complaints Musculoskeletal: Musculoskeletal: Reports no additional musculoskeletal complaints Integumentary/Breasts: Skin/Breast: Reports system reviewed and no additional complaints, except as docu Neurologic: Reports system reviewed and no additional complaints, except as documented Psychiatric: Psychiatric: Reports no additional psychiatric complaints Endocrine: Endocrine: Reports no additional endocrine complaints Hematologic/Lymphatic: Hematologic/Lymphatic: Reports no additional hematologic/lymphatic complaints Allergic/Immunologic: Allergic/Immunologic: Reports no additional allergic/immunologic complaints PMFSH Past Medical History Medical History Acute intra-cranial hemorrhage Anastomotic stricture of stomach Atrial fibrillation CHF (congestive heart failure) Chronic kidney disease, stage 3 Complications of gastric bypass surgery DVT (deep venous thrombosis) Dysphagia GERD (gastroesophageal reflux disease) Heart failure with reduced ejection fraction Echocardiogram in February 2021 showed mild to moderately dilated left ventricle with mild concentric hypertrophy and moderately depressed global systolic function with an LVEF of 40 to 45% with a mild to moderately dilated right ventricle. History of pulmonary embolism Hyperlipidemia Hypertension Hypothyroidism Nondiabetic gastroparesis Pacemaker TIA (transient ischemic attack) Surgical History Surgical History AICD present, double chamber H/O craniotomy History of gastric bypass History of gastric surgery History of left knee replacement S/P left atrial appendage ligation Status post biventricular pacemaker Family History Family History Father Acute myocardial infarction Mother Acute myocardial infarction Other Cerebrovascular accident Diabetes mellitus Family history of arthritis Family history of heart disease in male family member before age 55 Social History Social History Social History: Surrogate medical decision maker: Erika Irby, daughter. Code status: Full code. Smoking packs per day: 1 Smoking cigarettes per day: 20.0 Years smoked: 10 Smoking pack-years: 10.00 Smoking status: Former smoker Tobacco type: cigarettes Smoking end date: 02/10/72 Alcohol intake: never Substance use: never Substance use type: does not use Do You Feel Safe in your Home?: Yes Lack of Transportation: No Lack of Food: Never True Current Housing: I Have Housing Concerned About Future Housing: No Difficulty Paying Gas/Electric Bills: No Difficulty Paying for Meds: No Currently Unemployed: No Education: High School Diploma/GED Difficulty w/ Childcare or Family Care: No Living arrangements: with family Additional living arrangements comments: . Spiritual care concerns: No Exam Const: General: healthy appearing Nutritional Appearance: well nourished Orientation/consciousness: patient oriented x3 Limitations: no limitations Other: Patient is very anxious which appears to be chronic and she worries about all aspects of discussion and related topics HENMT: Head: normal to inspection Ears: external ears normal Face/Nose/Sinus: Normal external nose present Eyes: Conjunctivae: conjunctivae normal Pupils: Equal, round and reactive pupils present EOM: EOMs intact bilaterally Neck: Neck: normal visual inspection Chest: Chest palpation & inspection: normal inspection of the chest Resp: Effort & Inspection: normal respiratory effort and not labored Auscultation: clear to auscultation bilaterally and no crackles Cardio: Rate: regular rate Rhythm: regular rhythm Heart sounds: no murmurs GI: Inspection: non-distended GI Palp: Yes Soft to palpation and No Tenderness to palpation present (GI) Auscultation: normal bowel sounds : General: Yes bladder normal to palpation Back/Spine/Pelvis: Back: no CVA tenderness Neuro: General: patient oriented x3, moves all extremities, no meningeal signs, no focal motor deficits and CN's II-XI intact bilaterally Cranial nerves: Yes Nystagmus not present Speech: normal speech Gait exam (Neuro): Normal gait present Extrem: General: normal to inspection Psych: Mental Status: mental status grossly normal Affect: normal affect Attitude: cooperative Course Vital Signs Vital signs: Vital Signs Temperature 36.6 C 01/15/24 14:40 Pulse Rate 71 01/15/24 14:40 Respiratory Rate 18 01/15/24 14:40 Blood Pressure 113/90 01/15/24 14:40 Pulse Oximetry 98 01/15/24 14:40 Oxygen Delivery Room Air 01/15/24 14:40 Temperature 36.6 C 01/15/24 16:10 Pulse Rate 74 01/15/24 16:10 Respiratory Rate 18 01/15/24 16:10 Blood Pressure 116/77 01/15/24 16:10 Pulse Oximetry 98 01/15/24 16:10 Oxygen Delivery Room Air 01/15/24 16:10 MDM - GI Bleed MDM Narrative Medical decision making narrative: patient is an 88-year-old female with hematemesis x1 today. We will do a GI workup at this time. She will need upper endoscopy in the near future. No further GI bleeding or complaints. No nausea vomiting or diarrhea. Lab Data 01/15/24 15:55 01/15/24 15:55 Labs: Lab Results 01/15/24 Range/Units 15:55 WBC 7.0 (4.8-10.8) K/mm3 RBC 4.00 L (4.20-5.40) M/mm3 Hgb 13.0 (11.7-13.8) g/dL Hct 39.1 (35.0-42.0) % MCV 97.8 (78.0-102.0) fL MCH 32.5 H (27.0-31.0) pg MCHC 33.2 (32-36) g/dL RDW 15.0 H (11.6-14.4) % Plt Count 135 L (150-420) K/mm3 MPV 8.6 L (9.2-11.8) fl Immature Gran % (Auto) 0.4 H (0.0-0.0) % Neut % (Auto) 80.2 H (50.0-70.0) % Lymph % (Auto) 12.2 L (18.0-42.0) % [place] % (Auto) 6.2 (2.0-11.0) % Eos % (Auto) 0.9 L (1.0-6.0) % Baso % (Auto) 0.1 (0.0-1.0) % Lymph # (Auto) 0.85 L (1.10-4.50) K/mm3 [place] # (Auto) 0.43 (0.10-0.90) K/mm3 Eos # (Auto) 0.06 (0.02-0.50) K/mm3 Baso # (Auto) 0.01 (0.00-0.10) K/mm3 Abs Immat Gran (auto) 0.03 H (0.00-0.00) K/mm3 Absolute Neuts (auto) 5.57 (1.70-7.20) K/mm3 Absolute Nucleated RBC 0.00 (0.00-0.00) K/mm3 Nucleated RBC % 0.0 (0-0.0) % PT 11.7 (9.50-12.1) Seconds INR 1.1 APTT 31.3 H (23.9-30.70) Sec Sodium 140 (136-145) mmol/L Potassium 3.8 (3.5-5.1) mmol/L Chloride 103 (98-108) mmol/L Carbon Dioxide 28 (21-32) mmol/L Anion Gap 9 (4-12) mmol/L BUN 34 H (7-18) mg/dL Creatinine 1.22 H (0.55-1.02) mg/dL Estim Creat Clear Calc 27 ml/min Estimated GFR 42 L (59 - ) Glucose 108 H (70-99) mg/dL Calculated Osmolality 298 H (285-295) mOsm/kg Calcium 9.4 (8.5-10.1) mg/dL Total Bilirubin 0.8 (0.00-1.00) mg/dL AST 27 (15-37) U/L ALT 29 (14-59) U/L Alkaline Phosphatase 71 (46-116) U/L Total Protein 7.0 (6.4-8.2) g/dL Albumin 3.3 L (3.4-5.0) g/dL Discharge Plan Discharge Clinical Impression: Hematemesis of unknown cause Patient Disposition: Home, Self-Care Condition: Stable Instructions: Hematemesis (ED) Additional Instructions: Please follow-up with the primary doctor in the next week. I suggest seeing a armhole feller handstitching machine to using get upper endoscopy done as soon as possible. Come back to the emergency room with any further bleeding. Continue taking Protonix as prescribed daily. Do not take Protonix as needed but do take it daily. Prescriptions: No Action Entresto 24-26 mg Tablet 1 tablet PO BID acetaminophen [Tylenol] 325 mg capsule 650 mg PO Q8H PRN (Reason: pain) Qty: 20 0RF pantoprazole 40 mg tablet,delayed release (DR/EC) 40 mg PO Q12H PRN (Reason: Acid Reflux) Gemtesa 75 mg tablet 75 mg PO DAILY ondansetron 4 mg tablet,disintegrating 4 mg PO Q6H PRN (Reason: nausea and vomiting) Qty: 15 0RF hydrocodone-acetaminophen 5-325 mg tablet 1 tablet PO QID PRN (Reason: pain) Qty: 20 0RF aspirin [Mahnaz Low Dose Aspirin] 81 mg tablet,delayed release (DR/EC) 81 mg PO DAILY rosuvastatin 40 mg tablet 40 mg PO HS Eliquis 5 mg tablet 5 mg PO BID cyclosporine [Restasis] 0.05 % dropperette 1 drp EACH EYE BID Centrum Silver Women 8 mg iron-400 mcg-50 mcg Tablet 1 tablet PO DAILY levothyroxine 100 mcg tablet See Rx Instructions .ROUTE .COMPLEX Qty: 90 2RF Dose Instruction: TAKE 1 TABLET BY MOUTH EVERY DAY Rx Instructions: TAKE 1 TABLET BY MOUTH EVERY DAY ciprofloxacin HCl 250 mg tablet 250 mg PO Q12H Qty: 14 0RF Follow-up/Referrals: Qasim Garrett DO [Primary Care Provider] - Time of Disposition: 17:30
[2024-01-15 15:59] LABS: Basophils Absolute Auto 0.01 K/mm3 (0.00-0.10); Basophils Percent Auto 0.1 % (0.0-1.0); Eosinophils Absolute Auto 0.06 K/mm3 (0.02-0.50); Eosinophils Percent Auto 0.9 % (1.0-6.0); Hematocrit 39.1 % (35.0-42.0); Immature Granulocyte Absolute 0.03 K/mm3 (0.00-0.00); Immature Granulocyte Percent A 0.4 % (0.0-0.0); Lymphocytes Absolute Auto 0.85 K/mm3 (1.10-4.50); Lymphocytes Percent Auto 12.2 % (18.0-42.0); Mean Corpuscular HGB Conc 33.2 g/dL (32-36); Mean Corpuscular Hemoglobin 32.5 pg (27.0-31.0); Mean Corpuscular Volume 97.8 fL (78.0-102.0); Mean Platelet Volume 8.6 fl (9.2-11.8); Monocytes Absolute Auto 0.43 K/mm3 (0.10-0.90); Monocytes Percent Auto 6.2 % (2.0-11.0); Neutrophils Absolute Auto 5.57 K/mm3 (1.70-7.20); Neutrophils Percent Auto 80.2 % (50.0-70.0); Platelet Count Result 135 K/mm3 (150-420)
[2024-01-15 16:10] VITALS: BP 116/77; PULSE 74; RESP 18; TEMP 36.6; O2SAT 98
[2024-01-15 16:14] LABS: INR 1.1; Partial Thromboplastin Time 31.3 Sec (23.9-30.70); Prothrombin Time 11.7 Seconds (9.50-12.1)
[2024-01-15 16:24] LABS: Alanine Aminotransferase 29 U/L (14-59); Albumin Level 3.3 g/dL (3.4-5.0); Alkaline Phosphatase 71 U/L (46-116); Anion Gap 9 mmol/L (4-12); Aspartate Amino Transferase 27 U/L (15-37); Bilirubin,Total 0.8 mg/dL (0.00-1.00); Blood Urea Nitrogen 34 mg/dL (7-18); Calcium 9.4 mg/dL (8.5-10.1); Carbon Dioxide 28 mmol/L (21-32); Chloride 103 mmol/L (98-108); Estimated CRCL calculation 27 ml/min; Estimated Glomerular Filt Rate 42; Glucose 108 mg/dL (70-99); Osmolality Calculated 298 mOsm/kg (285-295); Potassium 3.8 mmol/L (3.5-5.1); Sodium 140 mmol/L (136-145)
[2024-01-15 17:31] VITALS: BP 124/74; PULSE 78; RESP 18; TEMP 36.7; O2SAT 98
== END 2024-01-15 17:32 | disposition home or self-care (01) ==
PROVIDERS: Emergency Provider Emergency Medicine; PCP Family Medicine
DX: K92.0 Hematemesis (principal); I13.0 Hypertensive heart and chronic kidney disease with heart failure and stage 1 through stage 4 chronic kidney disease, or unspecified chronic kidney disease; I50.9 Heart failure, unspecified; N18.30 Chronic kidney disease, stage 3 unspecified; I48.91 Unspecified atrial fibrillation; Z79.01 Long term (current) use of anticoagulants; Z87.891 Personal history of nicotine dependence
CPT/HCPCS: 36415; 80053; 85025; 85610; 85730; 99283

== ENCOUNTER 2024-01-22 10:15 | Outpatient (CLI) | payer MEDICARE, SELFPAY ==
--- NOTE | ~2024-01-22 | CT_ITS ---
Non-contrast CT scan of the Abdomen and Pelvis Clinical indication: Microhematuria Technique: 2.5 mm axial scans were obtained through the abdomen and pelvis without intravenous or or al contrast. Dose reduction technique was used on this scan by utilizing automated exposure control a nd iterative reconstruction technique. The dose-length product (DLP) was 234.13 mGy-cm. COMPARISON: 08/30/2021 Findings: Images through the lung bases reveal stable mild chronic interstitial changes at the left lung base.. There is no evidence of renal or ureteral calculi. The kidneys and the ureters are nondilated. Stable indeterminant density probable 2.2 cm left renal mass, likely hyperdense cyst. The liver, spleen, pancreas, and adrenals appear normal. Calcified gallstones are present. There are atherosclerotic calcifications of the aorta. . There is no evidence of bowel obstruction. Images through the pelvis were performed. There is no evidence of ascites or lymphadenopathy. Urinary bladder unremarkable. No pelvic mass seen. No ascites. Impression: 2.2 cm probable hyperdense left renal cysts given minimal change since 2021. Cholelithiasis. Reviewed, dictated and finalized at location . DRATOR TENDER Impression: 2.2 cm probable hyperdense left renal cysts given minimal change since 2021. Cholelithiasis.
== END 2024-01-22 10:16 | disposition home or self-care (01) ==
LOC: CHSIMG 10:17
PROVIDERS: PCP Family Medicine; Visit Provider Family Medicine
DX: R31.9 Hematuria, unspecified (principal); K80.20 Calculus of gallbladder without cholecystitis without obstruction
CPT/HCPCS: 74176

== ENCOUNTER 2024-01-23 11:04 | Outpatient (CLI) | payer MEDICARE, SELFPAY ==
[2024-01-23 11:10] VITALS: BP 128/77; PULSE 69; RESP 18; TEMP 36.1; O2SAT 99; BMI 27.8
[2024-01-23] MEDS: cefTRIAXone 1 GM, LIDOCAINE 1% LOCAL INJ 2.1 ML IM (11:24)
--- NOTE | 2024-01-23 11:30 | PC.NURSE ---
Patient tolerated IM antibiotic injection well. Denies any questions. Left floor ambulatory.
--- OUTSIDE RECORDS SUMMARY | 2024-01-27 07:11 | XMS_ITS | Encounter Summary ---
Author Organization [facility] Address [address] [place] [address] [place] [address] Care Team Providers Care Nurse Transitional Name Role Phone Mary Barber MD Unavailable Qasim Rolon DO Primary Care Provider [phone] Tiffany Badillo MD Unavailable [phone] Erick Abdi MD Unavailable [phone] Jim Tamez MD Unavailable Reason for Visit * Reason Comments Follow Up 2 month follow up - leg edema Encounter Details Date Type Department Care Team (Late st Contact Info) Description 11/17/2023 10:00 AM CDT Office Visit [facility] [address] [place] [phone] Jim Tamez MD [address] [place] [address] Follow Up (2 month follow up - leg edema) Social History Tobacco Use Types Packs/Day Years Used Date Smoking Tobacco: Former Cigarettes Q uit: 1972 Passive Smoke Exposure: Past Smokeless Tobacco: Never Tobacco Cessation:Counseling Given: Not Answered Alcohol Use Standard Drinks/Week Comments No 0 (1 standard drink = 0.6 oz pur e alcohol) Humiliation, Afraid, Rape, and Kick questionnair e Answer Date Recorded Fear of Current or Ex-Partner No Emotionally Abused No 03/27/2019 Physically Abused No 03/27/2019 Sexually Abused No 03/27/2019 Social Connection and Isolat ion Panel [NHANES] Answer Date Recorded Frequency of Communication w ith Friends and Family More than three times a week 03/27/2019 Frequency of Social Gatherin gs with Friends and Family More than three times a week 03/27/2019 Attends [facility] Not on file 03/27 Active Member of Clubs or Organizations Not on f ile 03/27/2019 Attends Club or Organization Meetings Never 03/27/2019 Marital Status 03/27/2019 [facility] - Occupational Stress Questionnaire Answer Date Recorded Feeling of Stress Rather much 03/27/2019 Exercise Vital Sign Answer Date Recorde d Days of Exercise per Week 2 days 2019 Minutes of Exercise per Session 20 min 03/27/2019 Hunger Vital Sign Answer Date Recorded Worried About Running Out of Food in the Last Ye ar Never true 03/27/2019 Ran Out of Food in the Last Year Never true 03/27/2019 PRAPARE - Transportation Answer Date Re corded Lack of Transportation (Medical) No 03/27/2019 Lack of Transportation (Non-Medical) No 03/27/2019 Comments No Sex and Gender Information Value Date Recorded Sex Assigned at Not on file Legal Sex Female 10:54 PM CDT Gender Identity Not on file Sexual Orientation Not on file Occupation Industry Job Start Date Job End Date Retired Not on file Not on file Not on file Not on file Not on file Not on file Not on file documented as of this encounter Last Filed Vital Signs Vital Sign Reading Time Taken Comments Blood Pressure 120/62 11/17/2023 10:25 AM CDT Pulse 72 11/17/2023 10:25 AM CDT Temperature - - Respiratory Rate 16 11/17/2023 10:25 AM CDT Oxygen Saturation 96% 11/17/2023 10:25 AM CDT Inhaled Oxygen Concentration - - Weight 75 kg (165 lb 6.4 oz) 11/17/2023 10:25 AM CDT Height 160 cm (5' 3 ) 11/17/2023 10:25 AM CDT Body Mass Index 29.3 11/17/2023 10:25 AM CDT documented in this encounter Functional Status * RETIRED Are you deaf or do you have serious difficulty hearing Answer Date of Assessment Author Status No 11/06/2020 3:38 PM CDT Activ e * RETIRED Are you blind or do you have serious difficulty seeing, even when wearing glasses? Answer Date of Assessment Author Status No 11/06/2020 3:38 PM CDT Activ e * Do you have serious difficulty walking or climbing stairs? Answer Date of Assessment Author Status No 11/06/2020 3:38 PM CDT Ericka Pop RN Active * Do you have difficulty dressing or bathing? Answer Date of Assessment Author Status No 11/06/2020 3:38 PM CDT Ericka Pop R N Active * Because of a physical, mental, or emotional condition, do you have difficulty doing errands alone such as visiting a doctor's office or shopping? Answer Date of Assessment Author Status No 11/06/2020 3:38 PM CDT Ericka Pop RN Active documented as of this encounter Mental Status * Because of a physical, mental, or emotional condition, do you have serious difficulty concentrating, remembering, or making decisions? Answer Entry Date Author Status No 11/06/2020 3:38 PM CDT Ericka Pop RN Active documented in this encounter Patient Instructions * Patient Instructions* Pamela Ram RN - 11/17/2023 10:00 AM CDT Please follow up with this office in 4 months. Thank you!! documented in this encounter Progress Notes * Jim Tamez MD - 11/17/2023 10:00 AM CDT Reason for Visit: Follow Up (2 month follow up - leg edema) History of Present Illness: 88-year-old female whose cardiovascular history consists of: 1. Bilateral lower extremity edema. 2. Chronic systolic congestive heart failure. 3. Atrial fibrillation - ICD. 4. History of provoked DVT and saddle PE in 2019. 5. Subdural hemorrhage. 6. Hypertension. 7. Hyperlipidemia. Patient is doing same but has not been wearing compression. She did get some 8- 15 mmHg compression but she does not like wearing them. The patient tells me that she has had swelling in both legs for some time with right more than left. She had ankle surgery and had right ankle many years ago, and subsequently had a DVT and saddle PE. She was on Coumadin and subsequently on Eliquis. After her subdural hematoma, she has chronic AFiband is managed through cardiology with Dr. Badillo and Dr. Villa. She tells me that she sleeps in a recliner. Has not been sleeping in a bed for some time. Her walking is limited. She walks with a cane. She has bought some compression stockings that have been very tight on her, so she subsequently bought something from [employer]. ASSESSMENT AND PLAN: 1. Bilateral lower extremity edema. I suspect this is multifactorial with calf pump issues being the main primary problem along with AFib and heart failure contributing. She had ankle surgery also, which also contributes. Continue toe pump and calf pump exercises, leg elevation and use of compression stockings. Recommended she continue with 10-15 mmHg compression stocking and if she does not recommend Tubigrip. ABIs noted noncompressible and arterial duplex did not notice any stenosis. I do notthink patient had accurate testing prior. 2. Provoked DVT and saddle PE after ankle surgery 2019, the patient is on chronic anticoagulation with Eliquis right now given her AFib 3. AFib - ICD, the patient is on chronic Eliquis. 4. Chronic systolic congestive heart failure. Deferred to cardiology. 5. Subdural hematoma. The patient developed a subdural hematoma at some point, she was switched from Coumadin to Eliquis at that point. 6. Hypertension and hyperlipidemia. Defer to you. Follow-up in 4 months. Medications: Current Outpatient Medications: amiodarone (PACERONE) 100 MG tablet, Take 1 tablet (100 mg total) by mouth daily., Disp: , Rfl: aspirin 81 MG tablet, Take 1 tablet (81 mg total) by mouth daily., Disp: , Rfl: Ciclopirox 0.77 % gel, APPLY 1 APPLICATION EXTERNALLY EVERY DAY FOR 90 DAYS, Disp: , Rfl: COMPRESSION STOCKINGS, DME,, Knee high compression stockings, 10-15 mmHg, open or closed toe, to beworn during waking hours, Disp: 1 Package, Rfl: 2 ELIQUIS 5 MG tablet, take 1 tablet by mouth twice a day, Disp: 60 tablet, Rfl: 5 hydrocortisone 2.5 % cream, Apply twice daily to rash under breasts x2 weeks on; 1 week off, Disp: , Rfl: ketoconazole (NIZORAL) 2 % cream, Apply twice daily under breasts x 2 weeks on; 1 week off, Disp: ,Rfl: levothyroxine 100 MCG tablet, Take 1 tablet (100 mcg total) by mouth daily., Disp: , Rfl: metoprolol succinate ER (TOPROL-XL) 25 MG 24 hr tablet, Take 1 tablet (25 mg total) by mouth daily.(Patient not taking: Reported on 11/17/2023), Disp: , Rfl: nitrofurantoin, macrocrystal-monohydrate, (MACROBID) 100 MG capsule, 100 MG ORALLY EVERY 12 HOURS FOR 5 DAYS MUST ADMINISTER WITH A MEAL/FOOD (Patient not taking: Reported on 11/17/2023), Disp: , Rfl: pantoprazole EC 40 MG tablet, Take 1 tablet (40 mg total) by mouth daily., Disp: , Rfl: pregabalin (LYRICA) 50 MG capsule, Take 1 capsule (50 mg total) by mouth 2 (two) times daily., Disp: , Rfl: RESTASIS 0.05 % ophthalmic emulsion, , Disp: , Rfl: rosuvastatin (CRESTOR) 40 MG tablet, take 1 tablet by mouth everyday at bedtime, Disp: 90 tablet, Rfl: 2 sacubitril-valsartan (ENTRESTO) 24-26 MG tablet, take 1 tablet by mouth twice a day, Disp: 180 tablet, Rfl: 3 spironolactone (ALDACTONE) 25 MG tablet, Take 0.5 tablets (12.5 mg total) by mouth daily. (Patient not taking: Reported on 11/17/2023), Disp: , Rfl: Review of patient's allergies indicates: Allergen Reactions Penicillins Anaphylaxis Oxycodone GI Upset Vicodin [Hydrocodone-Acetaminophen] GI Upset Past Medical History: Diagnosis Date Acute pulmonary embolism ([facility]) 03/27/2019 Arthritis Atrial fibrillation ([facility]) CAD (coronary artery disease) Hyperlipidemia Hypertension Hypothyroidism ICB (intracranial bleed) ([facility]) Non-ischemic cardiomyopathy ([facility]) TIA (transient ischemic attack) Came in for possible TIA today VT (ventricular tachycardia) ([facility]) Past Surgical History: Procedure Laterality Date ABDOMINAL SURGERY 1980 stomach staple ANKLE SURGERY Right 06/2019 APPENDECTOMY BRAIN SURGERY 2008 brain bleed, rodríguez hole EYE SURGERY cataract HC ICD BI VENTRICULAR GENERATOR 04/04/2013 s-p VT ablation HYSTERECTOMY JOINT REPLACEMENT PACEMAKER 04/28/2006 DDD s-p AVJ ablation XA LEFT ATRIAL APPENDAGE CLOSURE 10/19/2013 H/O ICB Social History Tobacco Use Smoking status: Former Current packs/day: 0.00 Types: Cigarettes Quit date: 1971 Years since quittin.8 Passive exposure: Past Smokeless tobacco: Never Vaping Use Vaping status: Never Used Substance Use Topics Alcohol use: No Drug use: No Family History Problem Relation Name Age of Onset [place] Mother [place] Father CABG Brother Stent Cardiac Brother Stroke Paternal Grandfather Heart Disease Other premature coronary heart disease Family Status Relation Name Status Mother at age 71 Father at age 55 Brother (Not Specified) MGM at age 60 MGF PGF at age 70 Other Other Family history is positive for premature coronary heart disease No partnership data on file Review of Systems Constitutional: Positive for fatigue and weakness. Negative for recent unintentional weight gain and recent unintentional weight loss. HENT: Negative for new or significant hearing loss and headaches. Eyes: Negative for blurred vision and double vision. Respiratory: Negative for cough and wheezing. Cardiovascular: Positive for leg swelling. Negative for chest pain and palpitations. Gastrointestinal: Negative for heartburn and nausea. Genitourinary: Negative for dysuria and hematuria. Musculoskeletal: Positive for myalgias and joint stiffness/pain. Skin: Negative for rash. Neurological: Positive for tingling/numbness. Negative for dizziness. Endo/Heme/Allergies: Negative for new or significant bruising/bleeding. Psychiatric/Behavioral: Negative for depression. Vitals: 11/17/23 1025 BP: 120/62 Patient Position: Sitting BP Location: Right arm Pulse: 72 Weight: 75 kg (165 lb 6.4 oz) Height: 1.6 m (5' 3 ) Body mass index is 29.3 kg/m??. Cardiac Exam Rate/Rhythm: Normal rate and regular rhythm. PMI: PMI is not displaced. Pulses: Normal pulses. Femoral pulses are 2+ on the right side and 2+ on the left side. Heart Sounds: Normal heart sounds. Normal S1 sounds. Normal S2 sounds. No gallop present. No S3. NoS4. Murmurs: Edema left: 1+. Edema Right: 1+. Physical Exam Constitutional: No distress. Healthy Appearance. HENT: Oropharynx clear. Eyes: Pupils equal, round, and reactive to light. Conjunctivae normal. Neck: Neck supple. No JVD. Abdomen: Abdomen soft. Bowel sounds normal. No tenderness. No mass. No hepatomegaly. No splenomegaly. Abdominal aorta not palpably enlarged. No abdominal bruit present. Pulmonary: Effort normal. Breath sounds normal. Skin: No rash. No cyanosis. No clubbing. No xanthoma. Musculoskeletal: No kyphosis. Normal ROM. Neurological: Alert. Oriented x 3. Appropriate mood and affect. Normal motor skills. Normal gait. Comments: Bilateral lower extremity pitting and nonpitting edema with no edema extended feet with negative Stemmer sign. Scar noted to right ankle from previous surgery. Diagnoses/Impression: 1. Leg edema Referring Provider: Jim Tamez MD PCP: QASIM ROLON DO documented in this encounter Plan of Treatment Upcoming Encounters Date Type Department Care Team (Late st Contact Info) Description 02/15/2024 1:30 PM ASSISTANT CASE MANAGER Office Visit [facility] [address] [place] [address] Tyrell Leiva PA-C [address] [place] [address] [phone] 02/15/2024 1:30 PM ASSISTANT CASE MANAGER Allied Health/Nurse Visit [facility] [address] [place] [address] Mary Barber MD [address] [place] [address] 03/15/2024 11:15 AM ASSISTANT CASE MANAGER Office Visit [facility] [place] [phone] Jim Tamez MD [address] [place], [place] [phone] 05/16/2024 1:15 AM CDT [facility] [address] [place] [phone] Mary Barber MD [address] [place] [phone] 09/07/2024 9:00 AM CDT [facility] [address] [place] [phone] Tiffany Badillo MD [address] [place], [place] [phone] documented as of this encounter Visit Diagnoses Diagnosis Leg edema- Primary Edema documented in this encounter Care Teams Nurse Transitional Relationship Specialty Start Date End Date Qasim Rolon DO [address] [place] [address] PCP - General FAMILY PRACTICE 04/13/19 Mary Barber MD [address] [place] [phone] EP Line Construction Superintendent CLINICAL CARDIAC ELECTROPHYSIOLOGY 09/15/16 Tiffany Badillo MD [address] [place] [id number] Consulting Physician INTERVENTIONAL CARDIOLOGY 12/23/19 Erick Abdi MD [address] [place] [address] Consulting Physician PAIN MANAGEMENT 09/06/20 Jim Tamez MD [address] [place] [address] Consulting Physician INTERNAL MEDICINE 09/10/23 documented as of this encounter
--- OUTSIDE RECORDS SUMMARY | 2024-01-27 07:11 | XMS_ITS | Encounter Summary ---
Author Organization [facility] Address [address] [place] [address] [place] [address] Care Team Providers Care Outpatient Phlebotomist Name Role Phone Mary Barber MD Unavailable Qasim Garrett DO Primary Care Provider [phone] Tiffany Badillo MD Unavailable [phone] Erick Abdi MD Unavailable [phone] Jim Tamez MD Unavailable Reason for Visit * Reason Onset Date Comments Information 12/29/2023 Encounter Details Date Type Department Care Team ([facility] st Contact Info) Description 12/29/2023 Telephone [facility] [address] [place] [address] Mary Barber MD [address] [place] [address] Information Social History Tobacco Use Types Packs/Day Years Used Date Smoking Tobacco: Former Cigarettes Q uit: 1972 Passive Smoke Exposure: Past Smokeless Tobacco: Never Alcohol Use Standard Drinks/Week Comments No 0 [...] than three times a week 03/27/2019 Attends [employer] Services Not on file 03/27 Active Member of Clubs or Organizations Not on f ile 03/27/2019 Attends Club or Organization Meetings Never 03/27/2019 Marital Status 03/27/2019 [facility] Occupat ional Health - Occupational [...] on file documented as of this encounter Functional Status * RETIRED Are [...] PM CDT Ericka Pop RN Active * Because of a physical, mental, [...] Pop RN Active documented in this encounter Progress Notes * Larissa Parekh - 12/29/2023 4:26 PM CST Angie, with Dr Heath's office, is calling in regards to having an MRI assessment ran on the pt'spacemaker. I gave Angie Barber's fax number and informed her to send a request asking to have an MRI assessment ran on the pt, with the pt's name, , and MRI appt or tentative appt, if scheduled.Angie v/u and stated that she would be send the fax over to the office. Nothing further needed at this time. OMER SERVICE ENGINEER documented in this encounter Plan of Treatment Upcoming Encounters Date Type Department Care Team (Late st Contact Info) Description 02/15/2024 1:30 PM CUSTOMER SERVICE ENGINEER Office Visit [facility] [address] [place] [phone] Tyrell Leiva PAHaylieC [address] [place] [phone] 02/15/2024 1:30 PM CUSTOMER SERVICE ENGINEER Allied Health/Nurse Visit [facility] [address] [place] [address] Mary Barber MD [address] [place] [phone] 03/15/2024 11:15 AM CUSTOMER SERVICE ENGINEER Office Visit [facility] [place] [phone] Jim Tamez MD [address] [place] [address] 05/16/2024 1:15 AM CDT [facility] [address] [place] [phone] Mary Barber MD [address] [place] [address] 09/07/2024 9:00 AM CDT Office Visit [facility] [place] [address] Tiffany Badillo MD [address] [place], [place] [phone] documented as of this encounter Visit Diagnoses Not on filedocumented in this encounter Care Teams Outpatient Phlebotomist Relationship Specialty Start Date End Date Qasim Garrett DO [address] [place] [address] PCP - General FAMILY PRACTICE 04/13/19 Mary Barber MD [address] [place] [phone] EP [employer] CLINICAL CARDIAC ELECTROPHYSIOLOGY 09/15/16 Tiffany Badillo MD [address] [place] [phone] Consulting Physician INTERVENTIONAL CARDIOLOGY 12/23/19 Erick Abdi MD [address] [place] [address] Consulting Physician PAIN MANAGEMENT 09/06/20 Jim Tamez MD [address] [place] [address] Consulting Physician INTERNAL MEDICINE 09/10/23 documented as of this encounter
--- OUTSIDE RECORDS SUMMARY | 2024-01-27 07:11 | XMS_ITS | Encounter Summary ---
Author Organization [facility] Address [facility] [place] [address] [place] [address] Care Team Providers Care Proofsheet Corrector Name Role Phone Mary Barber MD Unavailable Hi Rolon DO Primary Care Provider [phone] Tiffany Badillo MD Unavailable [phone] Erick Abdi MD Unavailable [phone] Jim Tamez MD Unavailable Reason for Referral * Imaging (Routine) - Closed Specialty Diagnoses / Procedures Referred By Contac t Referred To Contact RADIOLOGY Diagnoses Leg edema Hypercholesterolemia Essential hypertension Primary hypertension manager long term care current use of antiarrhythmic drug Pain and swelling of left lower leg Procedures USV ART DUPLEX LOW JASPAL Jim Tamez MD [address] [place] [address] Phone: tel: fax: Referral ID Status Reason Start Date Expiration Date Visits Re quested Visits Authorized [id number] Closed 09/16/2023 09/14/2024 1 1 Reason for Visit * Reason Onset Date Comments Schedule Test 09/15/2023 Testing and foll ow up appointments. Encounter Details Date Type Department Care Team (Late st Contact Info) Description 09/15/2023 Telephone [facility] [address] [place] [address] Jim Tamez MD [address] [place] [address] Schedule Test (Testing and follow up appointments.) Social History Tobacco Use Types Packs/Day Years Used Date Smoking Tobacco: Former Cigarettes Q uit: 1972 Smokeless Tobacco: Never Alcohol Use Standard Drinks/Week [...] than three times a week 03/27/2019 Attends [employer] Not on file 03/27 Active Member of Clubs or Organizations Not on f ile 03/27/2019 Attends Club or Organization Meetings Never 03/27/2019 Marital Status 03/27/2019 [facility] [place] of Occupat ional Health - Occupational Stress [...] documented in this encounter Progress Notes * Gracy Levi - 09/16/2023 5:09 PM CDT CALLER: pt REASON FOR CALL: I saw the doctor the other day and need to have some testing done and a follow up appointment REQUEST HANDLED AND HOW: REFERRAL/PCP: HI ROLON DO INS: medicare/medicare part a&b/[place] insurance medicare supp APPT PROV/DATE/TIME: TESTING NEEDED/SCHEDULED: Date: 11/17/2023 Time: 9:00 am - Arterial Duplex Time: 10:00 am - Dr. Tamez Location: [address], 5[address] Floor, [place], [place], Please check in at the [facility] registration desk on the 5th Floor. STAFF MSG SENT: yes COVID+TEST/EXPOSURE IN LAST 14 DAYS: n/a RECORDS NEEDED: no MYCHART OFFERED: active LETTER SENT: no CARE TEAM: notified Patient expresses understanding, questions answered. * Pamela Ram RN - 09/15/2023 4:17 PM CDT ASSESSMENT AND PLAN: 1. Bilateral lower extremity edema. I suspect this is multifactorial with calf pump issues being the main primary problem along with AFib and heart failure contributing. She had ankle surgery also, which also contributes, so I spoke to patient and her daughter at length. Strongly recommend sleepingin a bed rather than recliner, discussed with them regarding toe pump and calf pump exercises, leg elevation and use of compression stockings. We will try 10-15 mmHg compression stocking and see how patient does. 2. Concern for PAD. The patient ABIs done outside in [place], which noted noncompressible ABIs bilaterally with TBI of 1.1 on right and 0.88 on left, but comments made about monophasic waveforms in the right leg. We will get bilateral lower extremity arterial duplex. 3. 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 AFib - ICD, the patient is on chronic Eliquis. 5. Chronic systolic congestive heart failure. Deferred to cardiology. 6. Subdural hematoma. The patient developed a subdural hematoma at some point, she was switched from Coumadin to Eliquis at that point. 7. Hypertension, hyperlipidemia, defer to you. Thank you very much. Follow up in 2 months, see how patient does with 10-15 mmHg compression stocking. We will get bilateral lower extremity arterial duplex prior to next visit. Order for arterial duplex in pt will need to have this done either at [facility] or [facility]. Please follow up with stockings.order has been mailed to her home via address from her chart. Sent to scheduling to get on the calendar. documented in this encounter Plan of Treatment Upcoming Encounters Date Type Department Care Team (Late st Contact Info) Description 02/15/2024 1:30 PM AUTOMOTIVE SERVICE CASHIER Office Visit [facility] [address] [place] [phone] Tyrell Leiva PA-C [address] [place] [phone] 02/15/2024 1:30 PM AUTOMOTIVE SERVICE CASHIER Allied Health/Nurse Visit [facility] [address] [place] [phone] Mary Barber MD [address] [place] [phone] 03/15/2024 11:15 AM AUTOMOTIVE SERVICE CASHIER Office Visit [facility] [address] [place] [address] Jim Tamez MD [address], [place] [phone] 05/16/2024 1:15 AM CDT Allied Health/Nurse Visit [facility] [address] [place] [phone] Mary Barber MD [address] [place] [phone] 09/07/2024 9:00 AM CDT Office Visit [facility] [place] [address] [facility] [place] [address] Tiffany Badillo MD [address] [place], [place] [phone] documented as of this encounter Results * USV ART DUPLEX LOW JASPAL (11/17/2023 10:01 AM CDT) Anatomical Region Laterality Modality Extremity Ultrasound 11/17/2023 8:55 AM CDT Narrative 11/17/2023 11:31 AM CDT ?Vascular Report Pat.Name: ??RAKAN SHAW ?? Pat.ID: ?[id number] ? St.Date: ?? 11/17/2023 ? Refer.MD: ??JIM TAMEZ ? Exam Time: 8:55:00 AM ? Study Type:PVI ART DUPLEX SCAN BILATERAL LEG Height: ?160 cm ?Age: ??1935,88Y ? Sex: ? F ? Sonogrphr: Sarbjit Wesley, RVT ? Pat. Stat.:Outpatient ? ICD - 9: ?? I73.9 PVD (peripheral arterial/vascular disease) CPT - 4: ?91014 Arterial Duplex LE Reason for Study:PVD ? Race: ?W ? ++++++++++++++++++++++++++++++++++++ FINDINGS: ++++++++++++++++++++++++++++++++++++ Bilat: ?0-19% stenosis noted in all segments, normal bilateral lower ?extremities. KAMLESH Rt: ?? Unable to assess the KAMLESH due to circumferentially calcified ?blood vessels at the ankle. KAMLESH Lt: ?? Unable to assess the KAMLESH due to circumferentially calcified ?blood vessels at the ankle. ++++++++++++++++++++++++++++++++++++ MEASUREMENTS: ++++++++++++++++++++++++++++++++++++ ?DOPPLER Left DRYING TUMBLER OPERATOR ?? DRYING TUMBLER OPERATOR PSV ? 88 cm/s ? Left Prox Profunda ?? Prox Profunda P ??45.5 cm/s ? Left SFA Prox ?? Prox SFA PSV ?54.6 cm/s ? Left SFA Mid ?? Mid SFA PSV ? 56.2 cm/s ? Left SFA Dist ?? Dist SFA PSV ?49.9 cm/s ? Left Prox Pop A ?? Prox Pop A PSV ?54 cm/s ? Left Mid Pop A ?? Mid Pop A PSV ? 35 cm/s ? Left Dist Pop A ?? Dist Pop A PSV ?38 cm/s ? Left Prox MANAGER OPERATIONAL ?? Prox MANAGER OPERATIONAL PSV ?34.5 cm/s ? Left Mid MANAGER OPERATIONAL ?? Mid MANAGER OPERATIONAL PSV ? 33.9 cm/s ? Left Dist MANAGER OPERATIONAL ?? Dist MANAGER OPERATIONAL PSV ?49.5 cm/s ? Left Prox Darby A ?? Prox Darby A PSV ??74.6 cm/s ? Left Mid Darby A ?? Mid Darby A PSV ??61.1 cm/s ? Left Dist Darby A ?? Dist Darby A PSV ??78.2 cm/s ? Left Prox LUZ ELENA ?? Prox LUZ ELENA PSV ?47.9 cm/s ? Left Mid LUZ ELENA ?? Mid LUZ ELENA PSV ? 53.4 cm/s ? Left Dist LUZ ELENA ?? Dist LUZ ELENA PSV ?57 cm/s ? Left DPA ?? DPA PSV ? 36.9 cm/s ? Right DRYING TUMBLER OPERATOR ?? DRYING TUMBLER OPERATOR PSV ? 66.4 cm/s ? Right Prox Profunda ?? Prox Profunda P ??46.8 cm/s ? Right SFA Prox ?? Prox SFA PSV ?53 cm/s ? Right SFA Mid ?? Mid SFA PSV ? 50.7 cm/s ? Right SFA Dist ?? Dist SFA PSV ?47.1 cm/s ? Right Prox Pop A ?? Prox Pop A PSV ?41 cm/s ? Right Mid Pop A ?? Mid Pop A PSV ? 41 cm/s ? Right Dist Pop A ?? Dist Pop A PSV ?42 cm/s ? Right Prox MANAGER OPERATIONAL ?? Prox MANAGER OPERATIONAL PSV ?59.7 cm/s ? Right Mid MANAGER OPERATIONAL ?? Mid MANAGER OPERATIONAL PSV ? 56.2 cm/s ? Right Dist MANAGER OPERATIONAL ?? Dist MANAGER OPERATIONAL PSV ?56.6 cm/s ? Right Peroneal Prox ?? Prox Darby A PSV ?57 cm/s ? Right Mid Darby A ?? Mid Darby A PSV ??35.2 cm/s ? Right Peroneal Dist ?? Dist Darby A PSV ?43 cm/s ? Right Prox LUZ ELENA ?? Prox LUZ ELENA PSV ?83.8 cm/s ? Right Mid LUZ ELENA ?? Mid ULZ ELENA PSV ? 44.6 cm/s ? Right Dist LUZ ELENA ?? Dist LUZ ELENA PSV ?38.1 cm/s ? Right DPA ?? DPA PSV ? 55.1 cm/s ? AK Pop ?? Left AK Pop PSV ??53.8 cm/s ? Right AK Pop PS ??41.3 cm/s BK Pop ?? Left BK Pop PSV ??38.1 cm/s ? Right BK Pop PS ??42.4 cm/s ?PRESSURES Right Brachial ?? Brach P ?147 mmHg ? Right Ankle DP ?? AnkleDP P ?0 mmHg ? Right Ankle PT ?? AnklePT P ?0 mmHg ? Right KAMLESH PT ?? KAMLESH PT ? 0 ? Right KAMLESH DP ?? KAMLESH DP ? 0 ? Left Brachial ?? Brach P ?143 mmHg ? Left Ankle DP ?? AnkleDP P ?0 mmHg ? Left Ankle PT ?? AnklePT P ?0 mmHg ? Left KAMLESH PT ?? KAMLESH PT ? 0 ? Left KAMLESH DP ?? KAMLESH DP ? 0 ? <Electronic Signature> 11/17/2023 11:31 AM Jim Tamez M.D. Procedure Note Jim Tamez MD - 11/17/2023 Vascular Report Pat.Name: RAKAN SHAW LUIS EDUARDO Pat.ID: [id number] St.Date: 11/17/2023 Refer.MD: JIM ATMEZ Exam Time: 8:55:00 AM Study Type:PVI ART DUPLEX SCAN BILATERAL LEG Height: 160 cm Age: 1 1935,88Y Sex: F Sonogrphr: Sarbjit Wesley RVT Pat. Stat.:Outpatient ICD - 9: I73.9 PVD (peripheral arterial/vascular disease) CPT - 4: 44789 Arterial Duplex LE Reason for Study:PVD Race: W ++++++++++++++++++++++++++++++++++++ FINDINGS: ++++++++++++++++++++++++++++++++++++ Bilat: 0-19% stenosis noted in all segments, normal bilateral lower extremities. KAMLESH Rt: Unable to assess the KAMLESH due to circumferentially calcified blood vessels at the ankle. KAMLESH Lt: Unable to assess the KAMLESH due to circumferentially calcified blood vessels at the ankle. ++++++++++++++++++++++++++++++++++++ MEASUREMENTS: ++++++++++++++++++++++++++++++++++++ DOPPLER Left DRYING TUMBLER OPERATOR DRYING TUMBLER OPERATOR PSV 88 cm/s Left Prox Profunda Prox Profunda P 45.5 cm/s Left SFA Prox Prox SFA PSV 54.6 cm/s Left SFA Mid Mid SFA PSV 56.2 cm/s Left SFA Dist Dist SFA PSV 49.9 cm/s Left Prox Pop A Prox Pop A PSV 54 cm/s Left Mid Pop A Mid Pop A PSV 35 cm/s Left Dist Pop A Dist Pop A PSV 38 cm/s Left Prox MANAGER OPERATIONAL Prox MANAGER OPERATIONAL PSV 34.5 cm/s Left Mid MANAGER OPERATIONAL Mid MANAGER OPERATIONAL PSV 33.9 cm/s Left Dist MANAGER OPERATIONAL Dist MANAGER OPERATIONAL PSV 49.5 cm/s Left Prox Darby A Prox Darby A PSV 74.6 cm/s Left Mid Darby A Mid Darby A PSV 61.1 cm/s Left Dist Darby A Dist Darby A PSV 78.2 cm/s Left Prox LUZ ELENA Prox LUZ ELENA PSV 47.9 cm/s Left Mid LUZ ELENA Mid LUZ ELENA PSV 53.4 cm/s Left Dist LUZ ELENA Dist LUZ ELENA PSV 57 cm/s Left DPA DPA PSV 36.9 cm/s Right DRYING TUMBLER OPERATOR DRYING TUMBLER OPERATOR PSV 66.4 cm/s Right Prox Profunda Prox Profunda P 46.8 cm/s Right SFA Prox Prox SFA PSV 53 cm/s Right SFA Mid Mid SFA PSV 50.7 cm/s Right SFA Dist Dist SFA PSV 47.1 cm/s Right Prox Pop A Prox Pop A PSV 41 cm/s Right Mid Pop A Mid Pop A PSV 41 cm/s Right Dist Pop A Dist Pop A PSV 42 cm/s Right Prox MANAGER OPERATIONAL Prox MANAGER OPERATIONAL PSV 59.7 cm/s Right Mid MANAGER OPERATIONAL Mid MANAGER OPERATIONAL PSV 56.2 cm/s Right Dist MANAGER OPERATIONAL Dist MANAGER OPERATIONAL PSV 56.6 cm/s Right Peroneal Prox Prox Darby A PSV 57 cm/s Right Mid Darby A Mid Darby A PSV 35.2 cm/s Right Peroneal Dist Dist Darby A PSV 43 cm/s Right Prox LUZ ELENA Prox LUZ ELENA PSV 83.8 cm/s Right Mid LUZ ELENA Mid LUZ ELENA PSV 44.6 cm/s Right Dist LUZ ELENA Dist LUZ ELENA PSV 38.1 cm/s Right DPA DPA PSV 55.1 cm/s AK Pop Left AK Pop PSV 53.8 cm/s Right AK Pop PS 41.3 cm/s BK Pop Left BK Pop PSV 38.1 cm/s Right BK Pop PS 42.4 cm/s PRESSURES Right Brachial Brach P 147 mmHg Right Ankle DP AnkleDP P 0 mmHg Right Ankle PT AnklePT P 0 mmHg Right KAMLESH PT KAMLESH PT 0 Right KAMLESH DP KAMLESH DP 0 Left Brachial Brach P 143 mmHg Left Ankle DP AnkleDP P 0 mmHg Left Ankle PT AnklePT P 0 mmHg Left KAMLESH PT KAMLESH PT 0 Left KAMLESH DP KAMLESH DP 0 <Electronic Signature> 11/17/2023 11:31 LISA Tamez M.D. Jim Tamez MD VASC Final Result documented in this encounter Visit Diagnoses Diagnosis Leg edema- Primary Edema Hypercholesterolemia Pure hypercholesterolemia Essential hypertension Unspecified essential hypertension Primary hypertension Unspecified essential hypertension manager long term care current use of antiarrhythmic drug Pain and swelling of left lower leg Leg edema Edema Hypercholesterolemia Pure hypercholesterolemia Essential hypertension Unspecified essential hypertension Primary hypertension Unspecified essential hypertension [facility] current use of antiarrhythmic drug Pain and swelling of left lower leg documented in this encounter Care Teams Proofsheet Corrector Relationship Specialty Start Date End Date Hi Rolon DO [address] [place] [address] PCP - General FAMILY PRACTICE 04/13/19 Mary Barber MD [address] [place] [phone] EP Assembler For Puller Over Hand CLINICAL CARDIAC ELECTROPHYSIOLOGY 09/15/16 Tiffany Badillo MD [address] [place] [address] Consulting Physician INTERVENTIONAL CARDIOLOGY 12/23/19 Erick Abdi MD [address] [phone] Consulting Physician PAIN MANAGEMENT 09/06/20 Jim Tamez MD [address] [place] [address] Consulting Physician INTERNAL MEDICINE 09/10/23 documented as of this encounter
--- OUTSIDE RECORDS SUMMARY | 2024-01-27 07:11 | XMS_ITS | Encounter Summary ---
Author Organization [facility] Address [address] [facility] 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 current use of antiarrhythmic drug Pain and swelling of left lower leg Procedures USV ART DUPLEX LOW JASPAL Jim Tamez MD [address] [place] [address] Phone: tel: fax: Referral ID Status Reason Start Date Expiration Date Visits Re quested Visits Authorized [id number] Closed 09/16/2023 09/14/2024 1 1 Reason for Visit * Imaging (Routine) - Closed Specialty Diagnoses / Procedures Referred By Patrizia serra Referred To Contact RADIOLOGY Diagnoses Leg edema Hypercholesterolemia Essential hypertension Primary hypertension group home current use of antiarrhythmic drug Pain and swelling of left lower leg Procedures USV ART DUPLEX LOW JASPAL Jim Tamez MD [address] [place] [address] Phone: tel: fax: Referral ID Status Reason Start Date Expiration Date Visits Re quested Visits Authorized [id number] Closed 09/16/2023 09/14/2024 1 1 Encounter Details Date Type Department Care Team (Latest Contact Info) Description 11/17/2023 8:51 AM CDT - 11/17/2023 11:59 PM CDT Hospital Encounter [facility] Vascular Ultrasound - [facility] [address] [place] [address] Jim Tamez MD [address] [place] [address] Discharge Disposition: Home or Self Care (Routine Discharge) Social History Tobacco Use Types Packs/Day Years [...] than three times a week 03/27/2019 Attends [employer] Services Not on file 03/27 Active Member of Clubs or Organizations Not on f ile 03/27/2019 Attends Club or Organization Meetings Never 03/27/2019 Marital Status 03/27/2019 [facility] [place] [facility] Occupat ional Health - Occupational Stress [...] Assessment Author Status No 11/06/2020 3:38 PM SAMIRAT Ericka Pop RN Active * Do you have difficulty dressing or bathing? Answer Date of Assessment Author Status No 11/06/2020 3:38 PM CDT Ericka Pop RN Active * Because of a physical, mental, or emotional condition, do you have difficulty doing errands alone such as visiting a doctor's office or shopping? Answer Date of Assessment Author Status No 11/06/2020 3:38 PM Ericka Hayes RN Active documented as of this encounter Mental Status * Because of a physical, mental, or emotional condition, do you have serious difficulty concentrating, remembering, or making decisions? Answer Entry Date Author Status No 11/06/2020 3:38 PM Ericka Hayes RN Active documented in this encounter Medications at Time of Discharge amiodarone (PACERONE) 100 MG tablet Take 1 tablet (100 mg total) by mouth daily. aspirin 81 MG tablet Take 1 tablet (81 mg total) by mouth daily. 04/29/2006 Ciclopirox 0.77 % gel APPLY 1 APPLICATION EXTERNALLY EVERY DAY FOR 90 DAYS COMPRESSION STOCKINGS, DME,Indications:Leg edema,Hypercholeste rolemia,Essential hypertension,Primar y hypertension,termite control 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 current use of antiarrhythmic drug,Pain and swelling of left lower leg Knee high compression stockings, 10-15 mmHg, open or closed toe, to be worn during waking hours 1 Package 2 09/16/2023 ELIQUIS 5 MG tabletIndications:P aroxysmal atrial fibrillation (CMS/HCC HHS/HCC) take 1 tablet by mouth twice a day 60 tablet 5 10/22/2023 hydrocortisone 2.5 % cream Apply twice daily to rash under breasts x2 weeks on; 1 week off 07/08/2023 ketoconazole (NIZORAL) 2 % cream Apply twice daily under breasts x 2 weeks on; 1 week off 07/08/2023 levothyroxine 100 MCG tablet Take 1 tablet (100 mcg total) by mouth daily. 11/07/2019 metoprolol succinate ER (TOPROL-XL) 25 MG 24 hr tablet Take 1 tablet (25 mg total) by mouth daily. pantoprazole EC 40 MG tablet Take 1 tablet (40 mg total) by mouth daily. 12/13/2019 RESTASIS 0.05 % ophthalmic emulsion 10/03/2022 rosuvastatin (CRESTOR) 40 MG tablet take 1 tablet by mouth everyday at bedtime 90 tablet 2 10/07/2023 sacubitril-valsarta n (ENTRESTO) 24-26 MG tablet take 1 tablet by mouth twice a day 180 tablet 3 09/11/2023 spironolactone (ALDACTONE) 25 MG tablet Take 0.5 tablets (12.5 mg total) by mouth daily. documented as of this encounter Plan of Treatment Upcoming Encounters Date Type Department Care Team (Late st Contact Info) Description 02/15/2024 1:30 PM MORNING SHOW NEWSCAST PRODUCER [facility] [address] [place] [phone] Tyrell Leiva PA-C [address] [place] [phone] 02/15/2024 1:30 PM MORNING SHOW NEWSCAST PRODUCER [facility] [address] [place] [phone] Mary Barber MD [address] [place] [phone] 03/15/2024 11:15 AM MORNING SHOW NEWSCAST PRODUCER Office Visit [facility] [address] [place] [phone] Jim Tamez MD [address] [place], [place] [phone] 05/16/2024 1:15 AM CDT Allied Health/Nurse Visit [facility] [address] [place] [phone] Mary Barber MD [address] [place] [phone] 09/07/2024 9:00 AM CDT Office Visit [address] [place] [phone] Tiffany Badillo MD [address] [place], [place] [address] documented as of this encounter Procedures Procedure Name Priority Date/Time Associated Diagnosis Comments USV ART DUPLEX LOW JASPAL Routine 11/17/2023 10:01 AM CDT Leg edema Hypercholesterolemia Essential hypertension Primary hypertension group home current use of antiarrhythmic drug Pain and swelling of left lower leg documented in this encounter Results * USV ART DUPLEX LOW JASPAL (11/17/2023 10:01 AM CDT) Anatomical Region Laterality Modality Extremity Ultrasound 11/17/2023 8:55 AM CDT Narrative 11/17/2023 11:31 AM CDT ?Vascular Report Pat.Name: ??RAKAN SHAW ?? Pat.ID: ?[id number] ? St.Date: ?? 11/17/2023 ? Refer.MD: ??JIM TAMEZ ? Exam Time: 8:55:00 AM ? Study Type:PVI ART DUPLEX SCAN BILATERAL LEG Height: ?160 cm ?Age: ??1935,88Y ? Sex: ? F ? Sonogrphr: Sarbjit Wesley, RVT ? Pat. Stat.:Outpatient ? ICD - 9: ?? I73.9 PVD (peripheral arterial/vascular disease) CPT - 4: ?80154 Arterial Duplex LE Reason for Study:PVD ? Race: ?W ? ++++++++++++++++++++++++++++++++++++ FINDINGS: ++++++++++++++++++++++++++++++++++++ Bilat: ?0-19% stenosis noted in all segments, normal bilateral lower ?extremities. KAMLESH Rt: ?? Unable to assess the KAMLESH due to circumferentially calcified ?blood vessels at the ankle. KAMLESH Lt: ?? Unable to assess the KAMLESH due to circumferentially calcified ?blood vessels at the ankle. ++++++++++++++++++++++++++++++++++++ MEASUREMENTS: ++++++++++++++++++++++++++++++++++++ ?DOPPLER Left SENIOR CORPORATE RECRUITER ?? SENIOR CORPORATE RECRUITER PSV ? 88 cm/s ? Left Prox [...] A PSV ?38 cm/s ? Left Prox PROOF PLATE MAKER ?? Prox PROOF PLATE MAKER PSV ?34.5 cm/s ? Left Mid PROOF PLATE MAKER ?? Mid PROOF PLATE MAKER PSV ? 33.9 cm/s ? Left Dist PROOF PLATE MAKER ?? Dist PROOF PLATE MAKER PSV ?49.5 cm/s ? Left Prox Darby [...] DPA PSV ? 36.9 cm/s ? Right SENIOR CORPORATE RECRUITER ?? SENIOR CORPORATE RECRUITER PSV ? 66.4 cm/s ? Right Prox [...] A PSV ?42 cm/s ? Right Prox PROOF PLATE MAKER ?? Prox PROOF PLATE MAKER PSV ?59.7 cm/s ? Right Mid PROOF PLATE MAKER ?? Mid PROOF PLATE MAKER PSV ? 56.2 cm/s ? Right Dist PROOF PLATE MAKER ?? Dist PROOF PLATE MAKER PSV ?56.6 cm/s ? Right Peroneal Prox ?? Prox Darby A PSV ?57 cm/s ? Right Mid Darby A ?? Mid Darby A PSV ??35.2 cm/s ? Right Peroneal Dist ?? Dist Darby A PSV ?43 cm/s ? Right Prox LUZ ELENA ?? Prox LUZ ELENA PSV ?83.8 cm/s ? Right Mid LUZ ELENA ?? Mid LUZ ELENA PSV ? 44.6 cm/s ? Right [...] - 11/17/2023 Vascular Report Pat.Name: RAKAN SHAW Pat.ID: [id number] .Date: 11/17/2023 Refer.MD: JIM TAMEZ Exam Time: 8:55:00 AM Study Type:PVI ART DUPLEX SCAN BILATERAL LEG Height: 160 cm Age: 1 1935,88Y Sex: F Sonogrphr: Sarbjit Wesley RVT Pat. Stat.:Outpatient ICD - 9: I73.9 PVD (peripheral arterial/vascular disease) CPT - 4: 63521 Arterial Duplex LE Reason for Study:PVD Race: W ++++++++++++++++++++++++++++++++++++ FINDINGS: ++++++++++++++++++++++++++++++++++++ Bilat: 0-19% stenosis noted in all segments, normal bilateral lower extremities. KAMLESH Rt: Unable to assess the KAMLESH due to circumferentially calcified blood vessels at the ankle. KAMLESH Lt: Unable to assess the KAMLESH due to circumferentially calcified blood vessels at the ankle. ++++++++++++++++++++++++++++++++++++ MEASUREMENTS: ++++++++++++++++++++++++++++++++++++ DOPPLER Left SENIOR CORPORATE RECRUITER SENIOR CORPORATE RECRUITER PSV 88 cm/s Left Prox Profunda Prox [...] Pop A PSV 38 cm/s Left Prox PROOF PLATE MAKER Prox PROOF PLATE MAKER PSV 34.5 cm/s Left Mid PROOF PLATE MAKER Mid PROOF PLATE MAKER PSV 33.9 cm/s Left Dist PROOF PLATE MAKER Dist PROOF PLATE MAKER PSV 49.5 cm/s Left Prox Darby A [...] Left DPA DPA PSV 36.9 cm/s Right SENIOR CORPORATE RECRUITER SENIOR CORPORATE RECRUITER PSV 66.4 cm/s Right Prox Profunda Prox [...] Pop A PSV 42 cm/s Right Prox PROOF PLATE MAKER Prox PROOF PLATE MAKER PSV 59.7 cm/s Right Mid PROOF PLATE MAKER Mid PROOF PLATE MAKER PSV 56.2 cm/s Right Dist PROOF PLATE MAKER Dist PROOF PLATE MAKER PSV 56.6 cm/s Right Peroneal Prox Prox [...] in this encounter Visit Diagnoses Diagnosis Leg edema Edema Hypercholesterolemia Pure hypercholesterolemia Essential hypertension Unspecified essential hypertension Primary hypertension Unspecified essential hypertension termite control 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 current use of antiarrhythmic drug Pain and swelling of left lower leg documented in this encounter Care Teams Manager Programming Relationship Specialty Start Date End Date Qasim Garrett DO [address] [place] [address] PCP - General FAMILY PRACTICE 04/13/19 Mary Barber MD [address] [place] [phone] EP Milk Tester CLINICAL CARDIAC ELECTROPHYSIOLOGY 09/15/16 Tiffany Badillo MD [address] [place] [phone] Consulting Physician INTERVENTIONAL CARDIOLOGY 12/23/19 Erick Abdi MD [address] [place] [address] [phone] Consulting Physician PAIN MANAGEMENT 09/06/20 Jim Tamez MD [address] [place] [phone] Consulting Physician INTERNAL MEDICINE 09/10/23 documented as of this encounter
--- OUTSIDE RECORDS SUMMARY | 2024-01-27 07:11 | XMS_ITS | Encounter Summary ---
Author Organization [facility] Address [address] [facility] [place] [address] [place] [address] Care Team Providers Care Inventory Checker Name Role Phone Mary Barber MD Unavailable Qasim Garrett DO Primary Care Provider [phone] Tiffany Badillo MD Unavailable [phone] Erick Abdi MD Unavailable [phone] Jim Tamez MD Unavailable Encounter Details Date Type Department Care Team (Latest Contact Info) Description 09/15/2023 Travel Social History Tobacco Use Types Packs/Day Years [...] than three times a week 03/27/2019 Attends [employer] Services Not on file 03/27 Active Member of Clubs or Organizations Not on f ile 03/27/2019 Attends Club or Organization Meetings Never 03/27/2019 Marital Status 03/27/2019 [employer] [facility] Occupat ional Health - Occupational Stress [...] PM SAMIRAT Ericka Pop RN Active * Because of [...] Hayes RN Active documented in this encounter Plan of Treatment Upcoming Encounters Date Type Department Care Team (Late st Contact Info) Description 02/15/2024 1:30 PM FOREIGN TRADE TEACHER Office Visit [facility] [address] [place] [address] Tyrell Leiva PAHaylieC [address] [place] [address] 02/15/2024 1:30 PM FOREIGN TRADE TEACHER Allied Health/Nurse Visit [facility] [address] [place] [address] Mary Barber MD [address] [place] [address] 03/15/2024 11:15 AM FOREIGN TRADE TEACHER Office Visit [facility] [address] [place] [address] Jim Tamez MD [address], [place] [address] 05/16/2024 1:15 AM CDT Allied Health/Nurse Visit [facility] [address] [place] [address] Mary Barber MD [address] [place] [address] 09/07/2024 9:00 AM CDT Office Visit [facility] [place] [address] [place] [address] Tiffany Badillo MD [address] [place], [place] [address] documented as of this encounter Visit Diagnoses Not on filedocumented in this encounter Care Teams Inventory Checker Relationship Specialty Start Date End Date Qasim Garrett DO [address] [phone] PCP - General FAMILY PRACTICE 04/13/19 Mary Barber MD [address] [place] [phone] EP Motor Vehicle Assembler CLINICAL CARDIAC ELECTROPHYSIOLOGY 09/15/16 Tiffany Badillo MD [address] [place] [address] Consulting Physician INTERVENTIONAL CARDIOLOGY 12/23/19 Erick Abdi MD [address] [place] [address] Consulting Physician PAIN MANAGEMENT 09/06/20 Jim Tamez MD [address] [place] [address] Consulting Physician INTERNAL MEDICINE 09/10/23 documented as of this encounter
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
--- OUTSIDE RECORDS SUMMARY | 2024-01-27 07:11 | XMS_ITS | Encounter Summary ---
Author Organization [facility] Address [address] [facility] [place] [address] [place] [address] Care Team Providers Care Health And Wellness Coordinator Name Role Phone Mary Barber MD Unavailable Qasim Garrett DO Primary Care Provider [phone] Tiffany Badillo MD Unavailable [phone] Erick Abdi MD Unavailable [phone] Jim Tamez MD Unavailable Encounter Details Date Type Department Care Team (Latest Contact Info) Description 11/17/2023 Travel Social History Tobacco Use Types Packs/Day [...] than three times a week 03/27/2019 Attends Latter Day Services Not on file 03/27 Active Member of Clubs or Organizations Not on f ile 03/27/2019 Attends Club or Organization Meetings Never 03/27/2019 Marital Status 03/27/2019 [employer] [place] of Occupat ional Health - Occupational Stress [...] st Contact Info) Description 02/15/2024 1:30 PM EARRINGS FABRICATOR Office Visit [facility] [address] [place] [address] Tyrell Leiva, PAHaylieC [address] [place] [address] 02/15/2024 1:30 PM EARRINGS FABRICATOR Allied Health/Nurse Visit [facility] [address] [place] [address] Mary Barber MD [address] [place] [address] 03/15/2024 11:15 AM EARRINGS FABRICATOR Office Visit [facility] [address] [place] [address] Jim Tamez MD [address] [place], [place] [address] 05/16/2024 1:15 AM CDT Allied Health/Nurse Visit [facility] [address] [place] [address] [phone] Mary Barber MD [address] [place] [address] 09/07/2024 9:00 AM CDT Office Visit [facility] [address] [place] [address] Tiffany Badillo MD [address] [place], [place] [address] documented as of this encounter Visit Diagnoses Not on filedocumented in this encounter Care Teams Health And Wellness Coordinator Relationship Specialty Start Date End Date Qasim Garrett DO [address] [place] [address] PCP - General FAMILY PRACTICE 04/13/19 Mary Barber MD [address] [place] [phone] EP Indirect Fire Infantryman CLINICAL CARDIAC ELECTROPHYSIOLOGY 09/15/16 Tiffany Badillo MD [address] [place] [address] Consulting Physician INTERVENTIONAL CARDIOLOGY 12/23/19 Erick Abdi MD [address] [place] [address] [phone] Consulting Physician PAIN MANAGEMENT 09/06/20 Jim Tamez MD [address] [place] [phone] Consulting Physician INTERNAL MEDICINE 09/10/23 documented as of this encounter
--- OUTSIDE RECORDS SUMMARY | 2024-01-27 07:11 | XMS_ITS | Encounter Summary ---
Author Organization [facility] Address [address] [place] [address] [place] [address] Care Team Providers Care Supervisor Smoke Control Name Role Phone Mary Barber MD Unavailable Qasim Garrett DO Primary Care Provider [phone] Tiffany Badillo MD Unavailable [phone] Erick Abdi MD Unavailable [phone] Jim Tamez MD Unavailable Reason for Visit * Reason Onset Date Comments Cardiac Device Management 12/31/2023 Encounter Details Date Type Department Care Team (Late st Contact Info) Description 12/31/2023 [facility]phone [facility] [address] [place] [address] Mary Barber MD [address] [place] [address] Cardiac Device Management Social History Tobacco Use Types Packs/Day Years [...] Organization Meetings Never 03/27/2019 Marital Status 03/27/2019 [facility] - Occupational Stress [...] documented in this encounter Progress Notes * Triny Rader - 01/04/2024 9:25 AM CST Faxed the MRI signed worksheet to Angie with Dr Heath's office at [phone] today. TRONIC TEST TECHNICIAN * Coy Diop RN - 12/31/2023 4:00 PM CST Images from the original note were not included. MRI in Patients With Pacemakers/Defibrillators Patient Name: Sera Shaffer Date of : 1935 Device Specifications: Device: [] Pacemaker [] Single Chamber [] Dual Chamber [x] ICD [x] Biventricular Generator: Auto Body Mechanic Apprentice: VMob Model #: [id number] MRI conditional? [x] Yes [] No RA Lead: Auto Body Mechanic Apprentice: Chapin/St Lamin Model #: 1888tc MRI conditional? [] Yes [x] No [] RA Lead absent? RV Lead: Auto Body Mechanic Apprentice: Vantage [employer] Model #: 0295 MRI conditional? [x] Yes [] No [] RV Lead absent? LV Lead: Auto Body Mechanic Apprentice: [employer] Model #: 4592 MRI conditional? [x] Yes (1.5T only) [] No [] LV Lead absent? Fractured leads present? [] Yes [x] No [] MD to review CXR Abandoned/Fractured leads present? [] Yes [x] No [] MD to review CXR Epicardial leads present? [] Yes [x] No [] MD to review CXR EP Recommendations [] Fractured/abandoned/epicardial leads present [] MRI Not Allowed [] MRI conditional system: Every single component of the PPM/ICD system is MRI conditional. The combination of device and leads has been specifically approved. No fractured/abandoned/epicardial leads. [] MRI allowed if an institutional protocol in place. [x] MRI non-conditional system: One or more component of the PPM/ICD system is MRI non-conditional The combination of MRI conditional CIED and leads has not been specifically approved No fractured/abandoned/epicardial leads [x] MRI allowed if deemed to be the test for the patients without acceptable alternate modality and an institutional protocol in place. Comments: Mixed vendor system - MRI not allowed. Atrial lead is Chapin lead - not MRI compatible. LV lead only compatible for 1.5 T MRI only. Vb Net Programmer: Dr. Mary Barber Signature: MARY BARBER MD Date: 01/04/2024 TRONIC TEST TECHNICIAN TRONIC TEST TECHNICIAN * Coy Diop RN - 12/31/2023 11:27 AM CST MRI request received from Dr Kumar alvarez/[facility] Please fax MRI worksheet to [phone] Phone number is [phone] TRONIC TEST TECHNICIAN documented in this encounter Plan of Treatment Upcoming Encounters Date Type Department Care Team (Late st Contact Info) Description 02/15/2024 1:30 PM ELECTRONIC TEST TECHNICIAN Office [facility] ld [address] [place] [address] Tyrell Leiva PA-C [address] [place] [address] 02/15/2024 1:30 PM ELECTRONIC TEST TECHNICIAN Allied Health/Nurse Visit [facility] ld [address] [place] [address] Mary Barber MD [address] [place] [address] 03/15/2024 11:15 AM ELECTRONIC TEST TECHNICIAN [facility] [place] [address] Jim Tamez MD [address] [place], [place] [address] 05/16/2024 1:15 AM CDT [facility] [address] [place] [address] Mary Barber MD [address] [place] [address] 09/07/2024 9:00 AM CDT [facility] [address] [facility] [place] [address] Tiffany Badillo MD [address] [place], [place] [address] documented as of this encounter Visit Diagnoses Not on filedocumented in this encounter Care Teams Supervisor Smoke Control Relationship Specialty Start Date End Date Qasim Garrett DO [address] [place] [address] PCP - General FAMILY PRACTICE 04/13/19 Mary Barber MD [address] [place] [phone] EP Vb Net Programmer CLINICAL CARDIAC ELECTROPHYSIOLOGY 09/15/16 Tiffany Badillo MD [address] [place] [id number] Consulting Physician INTERVENTIONAL CARDIOLOGY 12/23/19 Erick Abdi MD [address] [place] [id number] Consulting Physician PAIN MANAGEMENT 09/06/20 Jim Tamez MD [address] [place] [address] Consulting Physician INTERNAL MEDICINE 09/10/23 documented as of this encounter
--- OUTSIDE RECORDS SUMMARY | 2024-01-27 07:11 | XMS_ITS | Encounter Summary ---
Author Organization [facility] Address [address] [place] [address] [place] [address] Care Team Providers Care Lime Plant Operator Name Role Phone Mary Barber MD Unavailable Qasim Garrett DO Primary Care Provider [phone] Tiffany Badillo MD Unavailable [phone] Erick Abdi MD Unavailable [phone] Jim Tamez MD Unavailable Encounter Details Date Type Department Care Team (Late st Contact Info) Description 11/30/2023 12:45 PM CDT Allied Health/Nurse Visit [facility] [address] [place] [address] Mary Barber MD [address] [place] [address] Social History Tobacco Use Types Packs/Day Years [...] than three times a week 03/27/2019 Attends Mandaen Services Not on file 03/27 Active Member of Clubs or Organizations Not on f ile 03/27/2019 Attends Club or Organization Meetings Never 03/27/2019 Marital Status 03/27/2019 [facility] - [...] 11/06/2020 3:38 PM Ericka Hayes RN Active * Because of a physical, [...] documented in this encounter Progress Notes * Tyra Enciso RN - 11/30/2023 12:45 PM CDT Images from the original note were not included. ICD REMOTE INTERROGATION NAME: Sera Shaffer : 1935 CSN: [id number] DATE OF INTERROGATION: 11/30/2023 DEVICE SPECIFICATIONS DEVICE GAS BOOSTER ENGINEER [place] [employer] DEVICE TYPE BIV ICD EST. BATTERY LIFE OR CURRENT VOLTAGE/ROSALIND VOLTAGE 9 years LEAD IMPEDENCE TRENDS STABLE ATRIAL PACING % 1 RV PACING % 92 LV PACING % 90 COMMENTS ATRIAL ARRHYTHMIAS AF BURDEN 75 % LONGEST EPISODE >48 hours ORAL ANTICOAGULATION Eliquis/Apixaban and ASA COMMENTS VENTRICULAR ARRHYTHMIAS NSVT EPISODE(S) 1 VT EPISODE(S) 1 - other untreated FVT EPISODE(S) 0 VF EPISODE(S) 0 COMMENTS ALERTS / NURSE COMMENTS Normal device function Presenting rhythm is AF/BP 1 NSVT - 13 beat run noted 1 other untreated VT1 - 27 seconds VT noted PHYSICIAN COMMENTS (IF ANY) Cosigned by Mary Barber MD at 12/01/2023 4:54 PM CDT documented in this encounter Plan of Treatment Upcoming Encounters Date Type Department Care Team (Late st Contact Info) Description 02/15/2024 1:30 PM SNOUT PULLER [facility] [address] [place] [phone] Tyrell Leiva PA-C [address] [place] [address] 02/15/2024 1:30 PM SNOUT PULLER Allied Health/Nurse Visit [facility] ld [address] [place] [address] Mary Barber MD [address] [place] [address] 03/15/2024 11:15 AM SNOUT PULLER Office Visit [facility] [place] [address] Jim Tamez MD [address] [place] [address] 05/16/2024 1:15 AM CDT Allied Health/Nurse Visit [facility] ld [address] [place] [address] Mary Barber MD [address] [place] [address] 09/07/2024 9:00 AM CDT Office Visit [address] [place] [address] Tiffany Badillo MD [address] [place] [address] documented as of this encounter Visit Diagnoses Diagnosis VT (ventricular tachycardia) ([facility])- Primary Paroxysmal ventricular tachycardia documented in this encounter Care Teams Lime Plant Operator Relationship Specialty Start Date End Date Qasim Garrett DO [address] [place] [address] PCP - General FAMILY PRACTICE 04/13/19 Mary Barber MD [address] [place] [address] EP Manager Front CLINICAL CARDIAC ELECTROPHYSIOLOGY 09/15/16 Tiffany Badillo MD [address] [place], [place] [phone] Consulting Physician INTERVENTIONAL CARDIOLOGY 12/23/19 Erick Abdi MD [address] [place] [address] Consulting Physician PAIN MANAGEMENT 09/06/20 Jim Tamez MD [address] [place], [place] [phone] Consulting Physician INTERNAL MEDICINE 09/10/23 documented as of this encounter
--- OUTSIDE RECORDS SUMMARY | 2024-01-27 07:11 | XMS_ITS | Encounter Summary ---
Author Organization [facility] Address [address] [facility] [place] [address] [place] [address] Care Team Providers Care New Car Sales Manager Name Role Phone Mary Barber MD Unavailable Qasim Rolon DO Primary Care Provider [phone] Tiffany Badillo MD Unavailable [phone] Erick Abdi MD Unavailable [phone] Jim Tamez MD Unavailable Reason for Visit * Reason Comments Edema Encounter Details Date Type Department Care Team (Late st Contact Info) Description 09/15/2023 9:30 AM CDT Office Visit [facility] [place] [address] Jim Tamez MD [address] [place] [address] Edema Social History Tobacco Use Types Packs/Day Years [...] than three times a week 03/27/2019 Attends Orthodoxy Services Not on file 03/27 Active Member of Clubs or Organizations Not on f ile 03/27/2019 Attends Club or Organization Meetings Never 03/27/2019 Marital Status 03/27/2019 [facility] Occupat ional Health - Occupational [...] Sign Reading Time Taken Comments Blood Pressure 124/62 09/15/2023 9:31 AM CDT recheck manual Pulse 76 09/15/2023 9:30 AM CDT Temperature - - Respiratory Rate 16 09/15/2023 9:30 AM CDT Oxygen Saturation 97% 09/15/2023 9:3 0 AM CDT Inhaled Oxygen Concentration - - Weight 75.1 kg (165 lb 8 oz) 09/15/2023 9:30 AM CDT Height 160 cm (5' 3 ) 09/15/2023 9:30 AM CDT Body Mass Index 29.32 09/15/2023 9:30 AM CDT documented in this encounter Functional [...] CDT Ericka Pop R N Active * Do you have difficulty dressing or bathing? Answer Date of Assessment Author Status No 11/06/2020 3:38 PM CDT Ericka Pop RN Active * Because of a physical, mental, or emotional condition, do you have difficulty doing errands alone such as visiting a doctor's office or shopping? Answer Date of Assessment Author Status No 11/06/2020 3:38 PM SAMIRAT Ericka Pop RN Active documented as of this encounter Mental Status * Because of a physical, mental, or emotional condition, do you have serious difficulty concentrating, remembering, or making decisions? Answer Entry Date Author Status No 11/06/2020 3:38 PM Ericka Hayes RN Active documented in this encounter Progress Notes * Jim Tamez MD - 09/15/2023 9:30 AM CDT Reason for Visit: No chief complaint on file. History of Present Illness: Patient Name: RAKAN SHAW Date of : 1935 Account: [id number] Facility: [facility] Location: [facility] Date of Service: 09/15/2023 Visit HISTORY OF PRESENT ILLNESS: This is an 88-year-old female who has been referred to me forlower extremity edema. Patient's cardiovascular history consists of: 1. Bilateral lower extremity edema with right more than left. 2. Chronic systolic congestive heart failure. 3. Atrial fibrillation - ICD. 4. History of provoked DVT and saddle PE in 2019. 5. Subdural hemorrhage. 6. Hypertension. 7. Hyperlipidemia. The patient tells me that she has [...] her, so she subsequently bought something from [employer]. ASSESSMENT AND PLAN: 1. Bilateral lower extremity [...] PAD. The patient ABIs done outside in [place], which noted noncompressible ABIs bilaterally with TBI [...] extremity arterial duplex prior to next visit. Signature/Date: JIM TAMEZ #[id number] /NIT Medications: Current Outpatient Medications: amiodarone (PACERONE) 100 MG tablet, Take 1 tablet (100 mg total) by mouth daily., Disp: , Rfl: aspirin 81 MG tablet, Take 1 tablet (81 mg total) by mouth daily., Disp: , Rfl: Ciclopirox 0.77 % gel, APPLY 1 APPLICATION EXTERNALLY EVERY DAY FOR 90 DAYS, Disp: , Rfl: ELIQUIS 5 MG tablet, take 1 tablet [...] 1 tablet (25 mg total) by mouth daily., Disp: , Rfl: nitrofurantoin, macrocrystal-monohydrate, (MACROBID) 100 MG capsule, 100 MG ORALLY EVERY 12 HOURS FOR 5 DAYS MUST ADMINISTER WITH A MEAL/FOOD, Disp: , Rfl: pantoprazole EC 40 MG [...] everyday at bedtime, Disp: 90 tablet, Rfl: 1 sacubitril-valsartan (ENTRESTO) 24-26 MG tablet, take 1 tablet by mouth twice a day, Disp: 180 tablet, Rfl: 3 spironolactone (ALDACTONE) 25 MG tablet, Take 0.5 tablets (12.5 mg total) by mouth daily., Disp: , Rfl: Review of patient's allergies indicates: Allergen Reactions Penicillins Anaphylaxis Oxycodone GI Upset Vicodin [Hydrocodone-Acetaminophen] GI Upset Past Medical History: Diagnosis Date Acute pulmonary embolism ([facility]) 03/27/2019 Arthritis Atrial fibrillation ([facility]) CAD (coronary artery disease) Hyperlipidemia Hypertension Hypothyroidism ICB (intracranial bleed) ([facility]) Non-ischemic cardiomyopathy ([facility]) TIA (transient ischemic attack) Came in for possible TIA today VT (ventricular tachycardia) ([facility]) Past Surgical History: Procedure Laterality Date ABDOMINAL [...] Current packs/day: 0.00 Types: Cigarettes Quit date: 1972 Years since quittin.6 Smokeless tobacco: Never Vaping Use Vaping status: Never Used Substance Use Topics Alcohol use: No Drug use: No Family History Problem Relation Name Age of Onset NC Mother NC Father CABG Brother Stent Brother Stroke Paternal Grandfather Heart Disease Other [...] significant bruising/bleeding. Psychiatric/Behavioral: Negative for depression. Vitals: 09/15/23 0930 09/15/23 0931 BP: 134/83 124/62 Patient Position: Sitting BP Location: Left arm Pulse: 76 Weight: 75.1 kg (165 lb 8 oz) Height: 1.6 m (5' 3 ) Body mass index is 29.32 kg/m??. Cardiac Exam Rate/Rhythm: Normal rate and [...] from previous surgery. Diagnoses/Impression: 1. Leg edema 2. Chronic systolic congestive heart failure (CMS/HCC HHS/HCC) Chronic 3. Paroxysmal atrial fibrillation ([facility] HHS/HCC) Chronic Referring Provider: Qasim Rooln DO PCP: QASIM ROLON DO documented in this encounter Plan of Treatment Upcoming Encounters Date Type Department Care Team (Late st Contact Info) Description 02/15/2024 1:30 PM CERTIFIED ENERGY MANAGER Office Visit [facility] ld [address] [place] [address] [phone] Tyrell Leiva PA-C [address] [place] [address] 02/15/2024 1:30 PM CERTIFIED ENERGY MANAGER [facility] [address] [place] [address] [phone] Mary Barber MD [address] [place] [address] 03/15/2024 11:15 AM CERTIFIED ENERGY MANAGER Office Visit [facility] [address] [place] [address] Jim Tamez MD [address] [place], [place] [address] 05/16/2024 1:15 AM CDT Allied Health/Nurse Visit [facility] [address] [place] [address] Mary Barber MD [address] [place] [address] 09/07/2024 9:00 AM CDT Office Visit [facility] [address] [place] [address] Tiffany Badillo MD [address] [place], [place] [address] documented as of this encounter Visit Diagnoses Diagnosis Leg edema- Primary Edema Chronic systolic congestive heart failure (CMS/HCC HHS/HCC) Chronic systolic heart failure Paroxysmal atrial fibrillation ([facility] HHS/HCC) Atrial fibrillation documented in this encounter Care Teams New Car Sales Manager Relationship Specialty Start Date End Date Qasim Rolon DO [address] [place] [address] PCP - General FAMILY PRACTICE 04/13/19 Mary Barber MD [address] [place] [phone] EP Production Boring Machine Operator CLINICAL CARDIAC ELECTROPHYSIOLOGY 09/15/16 Tiffany Badillo MD [address] [place], [place] [address] Consulting Physician INTERVENTIONAL CARDIOLOGY 12/23/19 Erick Abdi MD [address] [phone] Consulting Physician PAIN MANAGEMENT 09/06/20 Jim Tamez MD [address] [place] [address] Consulting Physician INTERNAL MEDICINE 09/10/23 documented as of this encounter
--- OUTSIDE RECORDS SUMMARY | 2024-01-27 07:12 | XMS_ITS | Encounter Summary ---
Author Organization [facility] Address [address] [facility] [place] [address] [place] [address] Care Team Providers Care Model Maker Plaster Name Role Phone Mary Barber MD Unavailable Qasim Garrett DO Primary Care Provider [phone] Tiffany Badillo MD Unavailable [phone] Erick Abdi MD Unavailable [phone] Reason for Visit * Reason Onset Date Comments Question 08/31/2023 Encounter Details Date Type Department Care Team (Late st Contact Info) Description 08/31/2023 Telephone [facility] [address] [place] [address] Tiffany Badillo MD [address] [place] [address] Question Social History Tobacco Use Types Packs/Day Years [...] than three times a week 03/27/2019 Attends Quaker Services Not on file 03/27 Active Member of Clubs or Organizations Not on f ile 03/27/2019 Attends Club or Organization Meetings Never 03/27/2019 Marital Status 03/27/2019 [facility]at ional [facility] [...] documented in this encounter Progress Notes * Diane Dawn - 08/31/2023 4:02 PM CDT Patient called and said she missed a call from this office? documented in this encounter Plan of Treatment Upcoming Encounters Date Type Department Care Team (Late st Contact Info) Description 02/15/2024 1:30 PM TERRITORY SALES PROFESSIONAL Office Visit [facility] ld [address] [place] [address] [phone] Tyrell Leiva PA-C [address] [place] [address] 02/15/2024 1:30 PM TERRITORY SALES PROFESSIONAL Allied Health/Nurse Visit [facility] ld [address] [place] [address] Mary Barbre MD [address] [place] [address] [phone] 03/15/2024 11:15 AM TERRITORY SALES PROFESSIONAL [facility] [place] [address] Jim Tamez MD [address] [place] [address] 05/16/2024 1:15 AM CDT Allied Health/Nurse Visit [facility] ld [address] [place] [address] Mary Barber MD [address] [place] [address] 09/07/2024 9:00 AM CDT Office Visit [facility] [place] [address] Tiffany Badillo MD [address] [place], [place] [address] documented as of this encounter Visit Diagnoses Not on filedocumented in this encounter Care Teams Model Maker Plaster Relationship Specialty Start Date End Date Qasim Garrett DO [address] [place] [address] PCP - General FAMILY PRACTICE 04/13/19 Mary Barber MD [address] [place] [phone] EP Rental Clerk Tool And Equipment CLINICAL CARDIAC ELECTROPHYSIOLOGY 09/15/16 Tiffany Badillo MD [address] [place], [place] [address] Consulting Physician INTERVENTIONAL CARDIOLOGY 12/23/19 Erick Abdi MD [address] [place] [address] Consulting Physician PAIN MANAGEMENT 09/06/20 documented as of this encounter
--- OUTSIDE RECORDS SUMMARY | 2024-01-27 07:12 | XMS_ITS | Encounter Summary ---
Author Organization [facility] Address [address] [facility]. [place], [place] [address] [place] [address] Care Team Providers Care Underwriting Internship Name Role Phone Mary Barber MD Unavailable Qasim Garrett DO Primary Care Provider [phone] Tiffany Badillo MD Unavailable [phone] Erick Abdi MD Unavailable [phone] Encounter Details Date Type Department Care Team (Late st Contact Info) Description 09/04/2023 Orders Only [facility] [address] [place] [address] Tiffany Badillo MD [address] [place] [address] Social History Tobacco Use Types Packs/Day Years [...] than three times a week 03/27/2019 Attends Mormon Services Not on file 03/27 Active Member of Clubs or Organizations Not on f ile 03/27/2019 Attends Club or Organization Meetings Never 03/27/2019 Marital Status 03/27/2019 [facility] Occupat ional Health - Occupational Stress [...] Pop RN Active documented in this encounter Plan of Treatment Upcoming Encounters Date Type Department Care Team (Late st Contact Info) Description 02/15/2024 1:30 PM CATTLE PRODUCERS Office Visit [facility] [address] [place] [address] Tyrell Leiva, PA-C [address] [place] [address] 02/15/2024 1:30 PM CATTLE PRODUCERS Allied Health/Nurse Visit [facility] [address] [place] [address] Mary Barber MD [address] [place] [address] 03/15/2024 11:15 AM CATTLE PRODUCERS Office Visit [facility] [place] [address] [place] [address] Jim Tamez MD [address] [place] [address] 05/16/2024 1:15 AM CDT Allied Health/Nurse Visit [facility] [address] [place] [address] Mary Barber MD [address] [place] [address] 09/07/2024 9:00 AM CDT Office Visit [facility] [place] [address] [place] [address] Tiffany Badillo MD [address] [place] [address] documented as of this encounter Procedures Procedure Name Priority Date/Time Associated Diagnosis Comments LIPID PANEL Routine 08/28/2023 Hypercholesterolemia documented in this encounter Results * LIPID PANEL (08/28/2023) CHOLESTEROL 103 HDL 37 TRIGLYCERIDES 42 NON HDL CHOLESTEROL na CHOL/HDL RATIO na LDL (CALCULATED) 37 VLDL CALCULATION na 08/28/2023 us Tiffany Badillo MD LABORATORY Final Result documented in this encounter Visit Diagnoses Diagnosis Hypercholesterolemia Pure hypercholesterolemia documented in this encounter Care Teams Underwriting Internship Relationship Specialty Start Date End Date Qasim Garrett DO [address] [place] [address] PCP - General FAMILY PRACTICE 04/13/19 Mary Barber MD [address] [place] [phone] EP Clothing Worker CLINICAL CARDIAC ELECTROPHYSIOLOGY 09/15/16 Tiffany Badillo MD [address] [place] [address] Consulting Physician INTERVENTIONAL CARDIOLOGY 12/23/19 Erick Abdi MD [address] [place] [address] Consulting Physician PAIN MANAGEMENT 09/06/20 documented as of this encounter
--- OUTSIDE RECORDS SUMMARY | 2024-01-27 07:12 | XMS_ITS | Encounter Summary ---
Author Organization [facility] Address [address] [place] [place] [address] [place] [address] Care Team Providers Care Machine Stitcher Name Role Phone Mary Barber MD Unavailable Qasim Garrett DO Primary Care Provider [phone] Tiffany Badillo MD Unavailable [phone] Erick Abdi MD Unavailable [phone] Reason for Visit * Imaging (Routine) - Closed Specialty Diagnoses / Procedures Referred By Patrizia serra Referred To Contact RADIOLOGY Diagnoses Essential hypertension Procedures USE ECHOCARDIOGRAM W CON USE ECHOCARDIOGRAM Tiffany Badillo MD [address] [place] [address] Phone: tel: fax: Referral ID Status Reason Start Date Expiration Date Visits Re quested Visits Authorized [id number] Closed 08/26/2023 09/25/2024 1 1 Encounter Details Date Type Department Care Team (Latest Contact Info) Description 09/09/2023 9:10 AM CDT - 09/09/2023 11:59 PM CDT Hospital Encounter [facility] [address] [place] [address] Tiffany Badillo MD [address] [place] [address] Discharge Disposition: Home or Self Care (Routine [...] than three times a week 03/27/2019 Attends [employer] Services Not on file 03/27 Active Member of Clubs or Organizations Not on f ile 03/27/2019 Attends Club or Organization Meetings Never 03/27/2019 Marital Status 03/27/2019 [facility] - Occupational [...] 3:38 PM Ericka Hayes RN Active * Do you have difficulty [...] APPLICATION EXTERNALLY EVERY DAY FOR 90 DAYS hydrocortisone 2.5 % cream Apply twice daily [...] 12/13/2019 RESTASIS 0.05 % ophthalmic emulsion 10/03/2022 spironolactone (ALDACTONE) 25 MG tablet Take 0.5 tablets (12.5 mg total) by mouth daily. ELIQUIS 5 MG tabletIndications: Paroxysmal atrial fibrillation (CMS/HCC [facility]/HCC) take 1 tablet by mouth twice a day 60 tablet 5 05/04/2023 4 nitrofurantoin, macrocrystal-monoh ydrate, (MACROBID) 100 MG capsule 100 MG ORALLY EVERY 12 HOURS FOR 5 DAYS MUST ADMINISTER WITH A MEAL/FOOD 4 pregabalin (LYRICA) 50 MG capsule Take 1 capsule (50 mg total) by mouth 2 (two) times daily. 02/11/2022 4 rosuvastatin (CRESTOR) 40 MG tablet take 1 tablet by mouth everyday at bedtime 90 tablet 1 2023 4 sacubitril-valsart an (ENTRESTO) 24-26 MG tablet Take 1 tablet by mouth 2 (two) times daily. 60 tablet 9 10/21/2022 4 documented as of this encounter Plan of Treatment Upcoming Encounters Date Type Department Care Team (Late st Contact Info) Description 02/15/2024 1:30 PM ENTERER Office Visit [facility] ld [address] [place] [address] Tyrell Leiva PA-C [address] [place] [address] 02/15/2024 1:30 PM ENTERER Allied Health/Nurse Visit [facility] [address] [place] [address] Mary Barber MD [address] [place] [address] 03/15/2024 11:15 AM ENTERER Office Visit [facility] [place] [address] Jim Tamez MD [address] [place] [address] 05/16/2024 1:15 AM CDT Allied Health/Nurse Visit [facility] ld [address] [place] [address] Mary Barber MD [address] [place] [address] 09/07/2024 9:00 AM CDT Office Visit [facility] [place] [address] Tiffany Badillo MD [address] [place], [place] [address] documented as of this encounter Procedures Procedure Name Priority Date/Time Associated Diagnosis Comments USE ECHOCARDIOGRAM W CON Routine 09/09/2023 10:40 AM CDT Essential hypertension documented in this encounter Results * USE ECHOCARDIOGRAM W CON (09/09/2023 10:40 AM CDT) Anatomical Region Laterality Modality NA Ultrasound 09/09/2023 9:31 AM CDT Narrative 09/09/2023 7:54 PM CDT ?Echocardiography Report Pat.Name: ??Sera Shaffer ?? Pat.ID: ?[id number] ? St.Date: ?? 09/09/2023 ? Refer.: ??Outreach, [facility] Exam Time: 9:31:00 AM ?Study Type:OUTREACH ? Height: ?63 in ? Weight: ?162 lb ? BSA: ? 1.77 m2 ?Age: ??1935,88Y ? Sex: ? F ? Sonogrphr: Sf ? Pat. Stat.:Outpatient ? Reason for Study:Essential hypertension Procedures: Study performed at [place], [place] and interpreted by [facility]. 2D, M-mode, Doppler, Color Flow ++++++++++++++++++++++++++++++++++++ SUMMARY: ++++++++++++++++++++++++++++++++++++ The left ventricular systolic function is moderately to severely depressed. Estimated left ventricular ejection fraction is 35-40%. A pacemaker wire is visualized in the right atrium and ventricle. Abnormal septal motion is noted. The left atrial size is severely enlarged. Right atrial size is moderately enlarged. Trace aortic regurgitation. Mild mitral regurgitation. ++++++++++++++++++++++++++++++++++++ FINDINGS: ++++++++++++++++++++++++++++++++++++ LV: ? The left ventricular size is normal. The left ventricular ?systolic function is moderately to severely depressed. ?Estimated left ventricular ejection fraction is 35-40%. RV: ? The right ventricular size is normal. A pacemaker wire is ?visualized in the right ventricle. IVS: ?Abnormal septal motion is noted. LA: ? The left atrial size is severely enlarged. RA: ? Right atrial size is moderately enlarged. A pacemaker wire ?is visualized in the right atrium. SHAGGY: ? No evidence of pericardial effusion. AO: ? Normal aortic root. Ascending aorta is mildly dilated. PA: ? The peak pulmonary artery systolic pressure is estimated to ?be approximately 34 mmHg. SVn: ?Inferior vena cava is not assessable. AV: ? The aortic valve is trileaflet. No evidence of aortic valve ?stenosis. Trace aortic regurgitation. MV: ? Structurally normal mitral valve. Mild mitral regurgitation. PV: ? Structurally normal pulmonic valve. TV: ? Structurally normal tricuspid valve. Doppler assessment ?inadequate to accurately assess the degree of tricuspid ?regurgitation. <Electronic Signature> 09/09/2023 07:54 PM Tiffany Badillo M.D. Procedure Note Tiffany Badillo MD - 09/09/2023 Echocardiography Report Pat.Name: Sera Shaffer ayo Pat.ID: [id number] .Date: 09/09/2023 Refer.MD: Milana, [facility] Exam Time: 9:31:00 AM Study Type:[place] Height: 63 in Weight: 162 lb BSA: 1.77 m2 Age: 1 1935,88Y Sex: F Sonogrphr: Gallo Pat. Stat.:Outpatient Reason for Study:Essential hypertension Procedures: Study performed at [facility], [place], [place] and interpreted by [facility]. 2D, M-mode, Doppler, Color Flow ++++++++++++++++++++++++++++++++++++ SUMMARY: ++++++++++++++++++++++++++++++++++++ The left ventricular systolic function is moderately to severely depressed. Estimated left ventricular ejection fraction is 35-40%. A pacemaker wire is visualized in the right atrium and ventricle. Abnormal septal motion is noted. The left atrial size is severely enlarged. Right atrial size is moderately enlarged. Trace aortic regurgitation. Mild mitral regurgitation. ++++++++++++++++++++++++++++++++++++ FINDINGS: ++++++++++++++++++++++++++++++++++++ LV: The left ventricular size is normal. The left ventricular systolic function is moderately to severely depressed. Estimated left ventricular ejection fraction is 35-40%. RV: The right ventricular size is normal. A pacemaker wire is visualized in the right ventricle. IVS: Abnormal septal motion is noted. LA: The left atrial size is severely enlarged. RA: Right atrial size is moderately enlarged. A pacemaker wire is visualized in the right atrium. SHAGGY: No evidence of pericardial effusion. AO: Normal aortic root. Ascending aorta is mildly dilated. PA: The peak pulmonary artery systolic pressure is estimated to be approximately 34 mmHg. SVn: Inferior vena cava is not assessable. AV: The aortic valve is trileaflet. No evidence of aortic valve stenosis. Trace aortic regurgitation. MV: Structurally normal mitral valve. Mild mitral regurgitation. PV: Structurally normal pulmonic valve. TV: Structurally normal tricuspid valve. Doppler assessment inadequate to accurately assess the degree of tricuspid regurgitation. <Electronic Signature> 09/09/2023 07:54 PM Tiffany Badillo M.D. Tiffany Badillo MD ECHO Final Result documented in this encounter Visit Diagnoses Diagnosis Essential hypertension Unspecified essential hypertension documented in this encounter Administered Medications Inactive Administered Medications - up to 3 most recent administrations Medication Order MAR Action Action Date Dose Rate Site perflutren lipid microsphere (DEFINITY) injection 2 mL 2 mL, Intravenous, IMG once as needed, Contrast, lot 1356 exsp 08/03, 1 dose, Starting on Thu09/09/23 at 1020, Until Thu09/09/23 at 1020, Administer over 30-60 seconds. Follow with 10 mL saline flush. Given 09/09/2023 10:20 AM CDT 2 mLs documented in this encounter Care Teams Machine Stitcher Relationship Specialty Start Date End Date Qasim Garrett DO [address] [place] [address] PCP - General FAMILY PRACTICE 04/13/19 Mary Barber MD [address] [place] [phone] EP Can Labeler CLINICAL CARDIAC ELECTROPHYSIOLOGY 09/15/16 Tiffany Badillo MD [address] [place] [phone] Consulting Physician INTERVENTIONAL CARDIOLOGY 12/23/19 Erick Abdi MD [address] [phone] Consulting Physician PAIN MANAGEMENT 09/06/20 documented as of this encounter
--- OUTSIDE RECORDS SUMMARY | 2024-01-27 07:12 | XMS_ITS | Encounter Summary ---
Author Organization [facility] Address [address] [facility] [place] [address] [place] [address] Care Team Providers Care Bun Machine Operator Name Role Phone Mary Barber MD Unavailable Qasim Garrett DO Primary Care Provider [phone] Tiffany Badillo MD Unavailable [phone] Erick Abdi MD Unavailable [phone] Jim Tamez MD Unavailable Reason for Visit * Reason Onset Date Comments Results 09/11/2023 Encounter Details Date Type Department Care Team (Late st Contact Info) Description 09/11/2023 Telephone [facility] [address] [place] [address] Tiffany Badillo MD [address] [place] [address] Results Social History Tobacco Use Types Packs/Day Years [...] than three times a week 03/27/2019 Attends [employer] Services Not on file 03/27 Active Member of Clubs or Organizations Not on f ile 03/27/2019 Attends Club or Organization Meetings Never 03/27/2019 Marital Status 03/27/2019 [facility] Occupat [facility] - Occupational [...] documented in this encounter Progress Notes * Elroy Hoffman RN - 09/11/2023 2:27 PM CDT Called and spoke with daughter. Went over results which remained the same as last time. * Elroy Hoffman RN - 09/11/2023 2:27 PM CDT ----- Message from Dr. Tiffany Badillo sent at 09/11/2023 12:34 PM CDT ----- Echocardiogram is unchanged compared to February 2021. Continue current medications, follow-up as scheduled. Follow-up with EP as scheduled. documented in this encounter Plan of Treatment Upcoming Encounters Date Type Department Care Team (Late st Contact Info) Description 02/15/2024 1:30 PM INFORMATION TECHNOLOGY ADVISOR Office Visit [facility] ld [address] [place] [address] Tyrell Leiva PA-C [address] [place] [address] 02/15/2024 1:30 PM INFORMATION TECHNOLOGY ADVISOR Allied Health/Nurse Visit [facility] ld [address] [place] [address] Mary Barber MD [address] [place] [address] 03/15/2024 11:15 AM INFORMATION TECHNOLOGY ADVISOR Office Visit [facility] [place] [address] Jim Tamez MD [address] [place], [place] [address] 05/16/2024 1:15 AM CDT [facility] [address] [place] [address] Mary Barber MD [address] [place] [address] 09/07/2024 9:00 AM CDT Office Visit [facility] [place] [address] Tiffany Badillo MD [address] [place], [place] [address] documented as of this encounter Visit Diagnoses Not on filedocumented in this encounter Care Teams Bun Machine Operator Relationship Specialty Start Date End Date Qasim Garrett DO [address] [place] [address] PCP - General FAMILY PRACTICE 04/13/19 Mary Barber MD [address] [place] [phone] EP Business Specialist CLINICAL CARDIAC ELECTROPHYSIOLOGY 09/15/16 Tiffany Badillo MD [address] [place], [place] [address] Consulting Physician INTERVENTIONAL CARDIOLOGY 12/23/19 Erick Abdi MD [address] [place] [phone] Consulting Physician PAIN MANAGEMENT 09/06/20 Jim Tamez MD [address] [place] [address] Consulting Physician INTERNAL MEDICINE 09/10/23 documented as of this encounter
--- OUTSIDE RECORDS SUMMARY | 2024-01-27 07:12 | XMS_ITS | Encounter Summary ---
Author Organization [facility] Address [address] [place] [address] [place] [address] Care Team Providers Care Battery Service Technician Name Role Phone Mary Barber MD Unavailable Qasim Garrett DO Primary Care Provider [phone] Tiffany Badillo MD Unavailable [phone] Erick Abdi MD Unavailable [phone] Encounter Details Date Type Department Care Team (Latest Contact Info) Description 09/09/2023 Travel Social History Tobacco Use Types Packs/Day [...] than three times a week 03/27/2019 Attends Church Services Not on file 03/27 Active Member of Clubs or Organizations Not on f ile 03/27/2019 Attends Club or Organization Meetings Never 03/27/2019 Marital Status 03/27/2019 [facility] Occupat ional Health - Occupational Stress [...] st Contact Info) Description 02/15/2024 1:30 PM SAGGER SOAK Office Visit [facility] ld [address] [place] [address] Tyrell Leiva, PAHaylieC [address] [place] [address] 02/15/2024 1:30 PM SAGGER SOAK Allied Health/Nurse Visit [facility] ld [address] [place] [address] Mary Barber MD [address] [place] [address] 03/15/2024 11:15 AM SAGGER SOAK Office Visit [facility] [address] [place] [address] Jim Tamez MD [address] [place], [place] [address] 05/16/2024 1:15 AM CDT Allied Health/Nurse Visit [facility] ld [address] [place] [address] Mary Barber MD [address] [place] [address] 09/07/2024 9:00 AM CDT Office Visit [facility] [address] [place] [address] Tiffany Badillo MD [address] [place] [address] documented as of this encounter Visit Diagnoses Not on filedocumented in this encounter Care Teams Battery Service Technician Relationship Specialty Start Date End Date Qasim Garrett DO [address] [place] [address] PCP - General FAMILY PRACTICE 04/13/19 Mary Barber MD [address] [place] [phone] EP Senior Front End Developer CLINICAL CARDIAC ELECTROPHYSIOLOGY 09/15/16 Tiffany Badillo MD [address] [place] [phone] Consulting Physician INTERVENTIONAL CARDIOLOGY 12/23/19 Erick Abdi MD [address] [place] [address] Consulting Physician PAIN MANAGEMENT 09/06/20 documented as of this encounter
--- OUTSIDE RECORDS SUMMARY | 2024-01-27 07:12 | XMS_ITS | Encounter Summary ---
Author Organization [facility] Address [address] [place] [address] [place] [address] Care Team Providers Care Industrial Hygienist Name Role Phone Mary Barber MD Unavailable Qasim Garrett DO Primary Care Provider [phone] Tiffany Badillo MD Unavailable [phone] Erick Abdi MD Unavailable [phone] Jim Tamez MD Unavailable Encounter Details Date Type Department Care Team (Late st Contact Info) Description 09/11/2023 Abstract [facility] [address] [place] [phone] Abstract, Doc Pccl Social History Tobacco Use Types Packs/Day Years [...] than three times a week 03/27/2019 Attends Taoism Services Not on file 03/27 Active Member of Clubs or Organizations Not on f ile 03/27/2019 Attends Club or Organization Meetings Never 03/27/2019 Marital Status 03/27/2019 [facility] [place] of Occupat ional Health - Occupational Stress [...] Status No 11/06/2020 3:38 PM CDT Ericka Pop, RN Active documented in this encounter Plan of Treatment Upcoming Encounters Date Type Department Care Team (Late st Contact Info) Description 02/15/2024 1:30 PM HEARING AID FITTER Office Visit [facility] ld [address] [place] [address] Tyrell Leiva PA-C [address] [place] [address] 02/15/2024 1:30 PM HEARING AID FITTER Allied Health/Nurse Visit [facility] [address] [place] [address] Mary Barber MD [address] [place] [address] 03/15/2024 11:15 AM HEARING AID FITTER Office Visit [facility] [place] [address] [address] [address] Jim Tamez MD [address] [place] [address] 05/16/2024 1:15 AM CDT Allied Health/Nurse Visit [facility] [address] [place] [address] Mary Barber MD [address] [place] [address] 09/07/2024 9:00 AM CDT Office Visit [facility] [place] [address] [place] [address] Tfifany Badillo MD [address] [place] [address] documented as of this encounter Procedures Procedure Name Priority Date/Time Associated Diagnosis Comments COMPREHENSIVE METABOLIC PANEL Routine 08/19/2023 CBC, MANUAL DIFF Routine 08/19/2023 THYROID STIM HORMONE TSH Routine 08/19/2023 MAGNESIUM Routine 08/19/2023 documented in this encounter Results * COMPREHENSIVE METABOLIC PANEL (08/19/2023) SODIUM S/P/B 143 GLUCOSE 89 mg/dL AST 29 BUN 26 CREATININE S/P/B 0.72 0.5 - 1.0 CALCIUM S/P/B 8.7 POTASSIUM S/P/B 3.8 CHLORIDE S/P/B 104 ALT 32 GFR ESTIMATE >60 Narrative Resulting Agency Comment [facility] Final Result * CBC, MANUAL DIFF (08/19/2023) Pathologist [facility] WBC 5.0 HGB 12.4 HCT 39.1 PLT 161 Narrative Resulting Agency Comment [facility] Qasim Buschling DO LABORATORY Final Result * THYROID STIM HORMONE TSH (08/19/2023) Pathologist [facility] TSH 1.33 Narrative Resulting Agency Comment [facility] LABORATORY Final Result * MAGNESIUM (08/19/2023) MAGNESIUM 1.8 Narrative Resulting Agency Comment [facility] Qasim Buschling DO LABORATORY Final Result documented in this encounter Visit Diagnoses Not on filedocumented in this encounter Care Teams Industrial Hygienist Relationship Specialty Start Date End Date Qasim Garrett DO [address] [place] [address] PCP - General FAMILY PRACTICE 04/13/19 Mary Barber MD [address] [place] [address] EP Bowling Ball Engraver CLINICAL CARDIAC ELECTROPHYSIOLOGY 09/15/16 Tiffany Badillo MD [address] [place] [phone] Consulting Physician INTERVENTIONAL CARDIOLOGY 12/23/19 Erick Abdi MD [address] [place] [address] Consulting Physician PAIN MANAGEMENT 09/06/20 Jim Tamez MD [address] [place] [address] Consulting Physician INTERNAL MEDICINE 09/10/23 documented as of this encounter
--- OUTSIDE RECORDS SUMMARY | 2024-01-27 07:13 | XMS_ITS | Encounter Summary ---
Author Organization [facility] Address [address] [facility] [place] [address] [place] [address] Care Team Providers Care Director Property Name Role Phone Mary Barber MD Unavailable Qasim Garrett DO Primary Care Provider [phone] Tiffany Badillo MD Unavailable [phone] Erick Abdi MD Unavailable [phone] Reason for Visit * Reason Onset Date Comments Lab Results 08/26/2023 Encounter Details Date Type Department Care Team (Late st Contact Info) Description 08/26/2023 Telephone [facility] [address] [place] [address] Tiffany Badillo MD [address] [place] [address] Lab Results Social History Tobacco Use Types Packs/Day [...] than three times a week 03/27/2019 Attends Muslim Services Not on file 03/27 Active Member of Clubs or Organizations Not on f ile 03/27/2019 Attends Club or Organization Meetings Never 03/27/2019 Marital Status 03/27/2019 [facility] of Occupat ional Health - Occupational [...] documented in this encounter Progress Notes * Donaldo Tovar RN - 09/02/2023 10:21 AM CDT Called patient with results, lipids are in goal range. Patient v/u no questions * Sowmya Alvarez - 08/28/2023 2:02 PM CDT Lab results received this date. Given to the nurse. * Diane Dawn - 08/26/2023 3:45 PM CDT Called [facility] and faxed the order to [phone]. He also gave me an alternative fax [phone]. I faxed to the 1st one and it went through. She plans to go Thursday to have done. Will send a staff msg reminder. * Donaldo Tovar RN - 08/26/2023 10:51 AM CDTAddended by: DONALDO TOVAR on: 08/26/2023 10:51 AM Modules accepted: Orders * Diane Dawn - 08/26/2023 10:48 AM CDT Called the patient. Put orders for lipid in and I will fax them to [facility]. She will go over this Thursday to have it drawn. Sent this back when orders are in please. * Sowmya Alvarez - 08/26/2023 9:29 AM CDT Malia from PCPs office called back stating pt has not had a recent lipid. * Sowmya Alvarez - 08/26/2023 9:13 AM CDT Left message with the medical records to request the lipid panel. Left the [facility] fax number. * Donaldo Tovar RN - 08/26/2023 9:04 AM CDT Can you get most recent lipid profile for this patient from PCP documented in this encounter Plan of Treatment Upcoming Encounters Date Type Department Care Team (Late st Contact Info) Description 02/15/2024 1:30 PM ZIPPER TRIMMER HAND Office Visit [facility] [address] [place] [address] Tyrell Leiva, PAHaylieC [address] [place] [address] 02/15/2024 1:30 PM ZIPPER TRIMMER HAND Allied Health/Nurse Visit [facility] [address] [place] [address] Mary Barber MD [address] [place] [address] 03/15/2024 11:15 AM ZIPPER TRIMMER HAND Office Visit [facility] [place] [address] Jim Tamez MD [address] [place] [address] 05/16/2024 1:15 AM CDT Allied [facility] [address] [place] [address] Mary Barber MD [address] [place] [address] 09/07/2024 9:00 AM CDT Office Visit [facility] [place] [address] Tiffany Badillo MD [address] [place] [address] documented as of this encounter Results * LIPID PANEL (08/28/2023) CHOLESTEROL 103 HDL 37 TRIGLYCERIDES 42 NON HDL CHOLESTEROL na CHOL/HDL RATIO na LDL (CALCULATED) 37 VLDL CALCULATION na 08/28/2023 Tiffany Badillo MD LABORATORY Final Result documented in this encounter Visit Diagnoses Diagnosis Hypercholesterolemia- Primary Pure hypercholesterolemia documented in this encounter Care Teams Director Property Relationship Specialty Start Date End Date Qasim Garrett DO [address] [place] [address] PCP - General FAMILY PRACTICE 04/13/19 Mary Barber MD [address] [place] [phone] EP Supervisor Kosher Dietary Service CLINICAL CARDIAC ELECTROPHYSIOLOGY 09/15/16 Tiffany Badillo MD [address] [place], [place] [address] Consulting Physician INTERVENTIONAL CARDIOLOGY 12/23/19 Erick Abdi MD [address] [address] Consulting Physician PAIN MANAGEMENT 09/06/20 documented as of this encounter
--- OUTSIDE RECORDS SUMMARY | 2024-01-27 07:13 | XMS_ITS | Encounter Summary ---
Author Organization [facility] Address [address] [place] [address] [place] [address] Care Team Providers Care Seaman Name Role Phone Mary Barber MD Unavailable Qasim Rolon DO Primary Care Provider [phone] Tiffany Badillo MD Unavailable [phone] Erick Abdi MD Unavailable [phone] Reason for Visit * Reason Comments Follow Up Encounter Details Date Type Department Care Team (Late st Contact Info) Description 08/26/2023 8:30 AM CDT Office Visit [facility] [place] [phone] Tiffany Badillo MD [address] [place] [address] Follow Up Social History Tobacco Use Types Packs/Day Years Used Date Smoking Tobacco: Former Cigarettes Q uit: 1972 Smokeless Tobacco: Never Tobacco Cessation:Counseling Given: Not [...] than three times a week 03/27/2019 Attends Bahai Services Not on file 03/27 Active Member of Clubs or Organizations Not on f ile 03/27/2019 Attends Club or Organization Meetings Never 03/27/2019 Marital Status 03/27/2019 [facility] - Occupational [...] Sign Reading Time Taken Comments Blood Pressure 122/69 08/26/2023 9:00 AM CDT Pulse 70 08/26/2023 9:00 AM CDT Temperature - - Respiratory Rate 12 08/26/2023 9:00 AM CDT Oxygen Saturation - - Inhaled Oxygen Concentration - - Weight 73.7 kg (162 lb 8 oz) 08/26/2023 9:00 AM CDT Height 157.5 cm (5' 2 ) 08/26/2023 9:00 AM CDT Body Mass Index 29.72 08/26/2023 9:00 AM CDT documented in this encounter Functional [...] documented in this encounter Progress Notes * Tiffany Badillo MD - 08/26/2023 8:30 AM CDT Chief Complaint: Follow Up HISTORY: Sera Shaffer is a 88-year-old female with past medical history of hypertension, hypercholesterolemia, atrial fibrillation post ablation and Lariat procedure, hemorrhagic stroke and hypothyroidism here for follow-up. There is no history of exertional chest pain, paroxysmal nocturnal dyspnea or orthopnea. She is able to take care of all her activities of daily living but as she is unable toexercise because of chronic back problems (she ambulates with a cane). Following her office visit in 2021, she underwent an upgrade of her pacemaker to a biventricular ICD. She also require one more cardioversion following the implant; she is chronically anticoagulated and has not experienced any bleeding complications other than the skin bruises. She is unable to tell when she is in atrial fibrillation. There is no history of new neurologic events. In relation to his chronic back pain, she hasalready been told that she cannot undergo any form of surgical procedure or epidural injections as they have not worked in the past. Her most significant complaint during this visit was the presence of swelling of her ankles, primarily the right one (previous ankle fracture). In the past she tried compression stockings but she had a hard time getting them on and off. She also feels her legs are weak, she attributes this to lack of activity/exercise. Blood pressure is well-controlled with her current medications. Patient is in the process of being evaluated for urinary incontinence and was wondering if surgery could be an option. Results of all available testing were reviewed. No problem with her current medications, and Entresto refill might be required in the following weeks. RECOMMENDATIONS AND PLAN: Continue current medications. Advised to start a chair exercise program to improve the strength of her lower extremities. Wear supportive stockings, knee-high. Will update her echocardiogram. Will obtain copies of most recent lipid profile from her primary care provider. Follow-up with the EP service as scheduled. Follow up in 1 year or sooner if any problems arise. PAST MEDICAL HISTORY: Past Medical History: Diagnosis Date Acute pulmonary embolism ([facility]) 03/27/2019 Arthritis Atrial fibrillation ([facility]) CAD (coronary artery disease) Hyperlipidemia Hypertension Hypothyroidism ICB (intracranial bleed) ([facility]) Non-ischemic cardiomyopathy ([facility]) TIA (transient ischemic attack) Came in for possible TIA today VT (ventricular tachycardia) ([facility]) Past Surgical History: Procedure Laterality Date ABDOMINAL SURGERY 1980 stomach staple ANKLE SURGERY Right 06/2019 APPENDECTOMY BRAIN SURGERY 2007 brain bleed, rodríguez hole EYE SURGERY cataract HC ICD BI VENTRICULAR GENERATOR 04/04/2013 s-p VT ablation HYSTERECTOMY JOINT REPLACEMENT PACEMAKER 04/28/2006 DDD s-p AVJ ablation XA LEFT ATRIAL APPENDAGE CLOSURE 10/19/2013 H/O ICB Allergies: Review of patient's allergies indicates: Allergen Reactions Penicillins Anaphylaxis Oxycodone GI Upset Vicodin [Hydrocodone-Acetaminophen] GI Upset MEDICATIONS: Prior to Admission medications Medication Sig Start Date End Date Taking? Authorizing Provider amiodarone (PACERONE) 100 MG tablet Take 1 tablet (100 mg total) by mouth daily. Yes Default History Genericprovider aspirin 81 MG tablet Take 1 tablet (81 mg total) by mouth daily. 04/29/06 Yes Doc [facility] Ciclopirox 0.77 % gel APPLY 1 APPLICATION EXTERNALLY EVERY DAY FOR 90 DAYS Yes Default History Genericprovider ELIQUIS 5 MG tablet take 1 tablet by mouth twice a day 05/04/23 Yes Mary Barber MD hydrocortisone 2.5 % cream Apply twice daily to rash under breasts x2 weeks on; 1 week off 07/08/23 Yes Default History Genericprovider ketoconazole (NIZORAL) 2 % cream Apply twice daily under breasts x 2 weeks on; 1 week off 07/08/23 Yes Default History Genericprovider levothyroxine 100 MCG tablet Take 1 tablet (100 mcg total) by mouth daily. 11/07/19 Yes Doc [facility] metoprolol succinate ER (TOPROL-XL) 25 MG 24 hr tablet Take 1 tablet (25 mg total) by mouth daily. Yes Default History Genericprovider nitrofurantoin, macrocrystal-monohydrate, (MACROBID) 100 MG capsule 100 MG ORALLY EVERY 12 HOURS FOR 5 DAYS MUST ADMINISTER WITH A MEAL/FOOD Yes Default History Genericprovider pantoprazole EC 40 MG tablet Take 1 tablet (40 mg total) by mouth daily. 12/13/19 Yes Doc [facility] pregabalin (LYRICA) 50 MG capsule Take 1 capsule (50 mg total) by mouth 2 (two) times daily. 02/11/22Yes Default History Genericprovider RESTASIS 0.05 % ophthalmic emulsion 10/03/22 Yes Default History Genericprovider rosuvastatin (CRESTOR) 40 MG tablet take 1 tablet by mouth everyday at bedtime 02/16/23 Yes Tiffany Badillo MD sacubitril-valsartan (ENTRESTO) 24-26 MG tablet Take 1 tablet by mouth 2 (two) times daily. 10/21/22Yes Tiffany Badillo MD spironolactone (ALDACTONE) 25 MG tablet Take 0.5 tablets (12.5 mg total) by mouth daily. Yes Default History Genericprovider SOCIAL HISTORY: Social History Tobacco Use Smoking status: Former Current packs/day: 0.00 Types: Cigarettes Quit date: 1971 Years since quittin.5 Smokeless tobacco: Never Vaping Use Vaping status: Never Used Substance Use Topics Alcohol use: No Drug use: No FAMILY HISTORY: Family History Problem Relation Name Age of Onset IA Mother IA Father CABG Brother Stent Brother Stroke Paternal Grandfather Heart Disease Other premature coronary heart disease REVIEW OF ORGANS AND SYSTEMS: Review of Systems Constitutional: Positive for weakness (lower extremities). Negative for recent unintentional weightgain, recent unintentional weight loss and new or significant fatigue. HENT: Negative for new or significant hearing loss. Eyes: Negative for blurred vision and double vision. Respiratory: Negative for cough, new or significant shortness of breath and snoring. Cardiovascular: See HPI. Positive for leg swelling. Gastrointestinal: Negative for blood in stool and melena. Genitourinary: Negative for dysuria. Musculoskeletal: Positive for joint stiffness/pain (low back). Negative for myalgias. Skin: Negative for rash. Neurological: Positive for imbalance (ambulates with a cane). Negative for tingling/numbness and focal weakness. Endo/Heme/Allergies: Negative for new or significant bruising/bleeding and polydipsia. Psychiatric/Behavioral: Negative for depression and new or significant memory loss. PHYSICAL EXAM: Filed Vitals: 08/26/23 0900 BP: 122/69 Pulse: 70 Resp: 12 Weight: 73.7 kg (162 lb 8 oz) Height: 1.575 m (5' 2 ) Body mass index is 29.72 kg/m??. Physical Exam Constitutional: No distress. HENT: Dentition normal. Eyes: Pupils equal, round, and reactive to light. Conjunctivae normal. Neck: Normal range of motion. Neck supple. Thyroid normal. No JVD. Pulmonary: Effort normal. Breath sounds normal. Abdomen: Abdomen soft. Bowel sounds normal. No tenderness. No mass. No hepatomegaly. No splenomegaly. Abdominal aorta not palpably enlarged. Neurological: Alert. Oriented x 3. Appropriate mood and affect. Normal motor skills. Normal gait. Skin: Dry. Warm. No cyanosis. No clubbing. Musculoskeletal: No kyphosis. Normal ROM. Cardiovascular: Rate: Regular rhythm and Normal rate. PMI: PMI not displaced Pulses: Right Carotid pulses 2+, Left Carotid pulses 2+, Right Radial pulses 2+, Left Radial pulses2+, Right Femoral pulses 2+, Left Femoral pulses 2+, Right Popliteal pulses 2+, Left Popliteal pulses 2+, Right DP pulses 2+, Left DP pulses 2+, Right PT pulses 2+, Left PT Pulses 2+, Edema left: 1+., Edema Right: 1+. Normal pulses. Heart Sounds: Normal heart sounds. Normal S1 and Normal S2. No gallop. No S3 sound. No S4 sound andNo murmur. Cardiovascular Comments: LABORATORY DATA: Lab Results Component Value Date NA 145 02/05/2023 K 3.6 02/05/2023 CL 112 (H) 02/05/2023 CO2 29.9 02/05/2023 AGAP 3.1 (L) 02/05/2023 BUN 26 (H) 02/05/2023 CR 0.98 02/05/2023 GFRNON 50 (L) 11/07/2020 GFR 57 (L) 11/07/2020 GLU 94 02/05/2023 CA 8.8 02/05/2023 Lab Results Component Value Date WBC 6.04 10/31/2022 HGB 12.2 10/31/2022 PLT 182 10/31/2022 Lab Results Component Value Date CHOL 120 02/07/2014 TRI 54 02/07/2014 HDL 51 02/07/2014 LDL 58 02/07/2014 AGAP 3.1 (L) 02/05/2023 TP 7.8 10/31/2020 ALB 3.2 (L) 10/31/2020 ALT 21 10/31/2020 TSH 1.66 10/13/2014 No results for input(s): TROP , TROPIWB in the last 168 hours. Lab Results Component Value Date CPK 43 03/29/2019 CPK 55 03/28/2019 CPK 56 03/28/2019 MB <1.0 03/29/2019 MB 1.1 03/28/2019 MB 1.3 03/28/2019 Lab Results Component Value Date PROTIME 16.3 (H) 11/07/2020 PROTIME 17.3 (H) 03/31/2019 PROTIME 13.9 03/30/2019 INR 1.4 (H) 11/07/2020 INR 1.5 (H) 03/31/2019 INR 1.1 03/30/2019 Duplex venous ultrasound March 2019 Rt Lower Ext: Partial occlusion of the proximal popliteal and peroneal veins suggestive of acute deep venous thrombosis. Total occlusion of the distal popliteal and posterior tibial veins suggestive of acute deep venous thrombosis. Lt Lower Ext: No evidence of acute or chronic thrombosis noted in the deep or superficial veins in the left lower extremity. Electrocardiogram March 2019: Ventricular pacemaker Echocardiogram March 2019 The left ventricular size is normal. The left ventricular systolic function is mildly depressed. Estimated left ventricular ejection fraction is 45%. Left ventricular relaxation is impaired. The right ventricular size is moderately enlarged. Right ventricular systolic function is moderately depressed. The left atrial volume is moderately increased (42-48 ml/M2). The peak pulmonary artery systolic pressure is estimated to be 36 mmHg. Trace aortic regurgitation. Trace mitral regurgitation. Calcified posterior mitral annulus. Mild tricuspid regurgitation. Nuclear stress test May 2019 Negative electrocardiographic portion of regadenoson stress test. Abnormal Perfusion Study. There is evidence of a small to medium area of moderate intensity fixed defect consistent with infarction in the apex and apical inferior wall. No myocardial ischemia. Left ventricular EF is 46 %. Echocardiogram August 11, 2019 The left ventricular systolic function is mildly depressed. Estimated left ventricular ejection fraction is 45-50%. Mild concentric left ventricular hypertrophy. Wall motion is difficult to assess. The right ventricular size is mildly enlarged. A pacemaker wire is visualized in the right ventricle. The left atrial size is severely enlarged. Right atrial size is mildly enlarged. A pacemaker wire is visualized in the right atrium. Trace aortic regurgitation. Mild aortic valve sclerosis. Trace to mild mitral regurgitation. Heavily calcified posterior mitral annulus. Trace pulmonic regurgitation. Mild tricuspid regurgitation. LE Venous August 11, 2019 Rt Lower Ext: The external iliac, common femoral, sapheno-femoral junction, superficial epigastric,femoral, and popliteal veins show no evidence of venous thrombosis. Lt Lower Ext: The external iliac, common femoral, sapheno-femoral junction, superficial epigastric,femoral, and popliteal veins show no evidence of venous thrombosis. Echocardiogram May 22, 2020 The left ventricular size is mildly enlarged. The left ventricular systolic function is moderately depressed. Estimated left ventricular ejection fraction is 35-40%. Left ventricular diastolic function is abnormal (grade 3 - restrictive filling). The right ventricular size is moderately enlarged. Right ventricular systolic function is at the lower limit of normal. A pacemaker wire is visualized. The left atrial size is severely enlarged. Right atrial size is severely enlarged. The pulmonary vein doppler wave form is blunted suggestive of elevated left atrial pressures. The aortic valve is trileaflet does appear to be functionally bicuspid. Mild aortic regurgitation. Mild mitral regurgitation. Myxomatous degeneration of mitral valve. Mild pulmonic regurgitation. Mild tricuspid regurgitation. VQ scan May 2020 Perfusion only study reveals near uniform distribution of activity bilaterally with no segmental defects. This is consistent with low probability for acute pulmonary embolism. Venous duplex ultrasound May 2020 Normal right lower extremity venous Doppler study. No DVT seen. Echocardiogram September 03, 2020 The left ventricular size is mildly enlarged. The left ventricular systolic function is depressed. The calculated ejection fraction is 35%. Mild concentric left ventricular hypertrophy. Left ventricular diastolic function is abnormal. ??Severe global hypokinesis is noted. Right ventricular systolic function is depressed. A pacemaker wire is visualized in the right and ventricle. The left atrial volume is severely increased (>48 ml/M2). Right atrial size is mildly enlarged. Ascending aorta is mildly dilated. The proximal ascending aorta measures 3.8cm. Trace aortic regurgitation. Trace mitral regurgitation. Mild to moderately calcified anterior and posterior mitral annulus. Myxomatous degeneration of mitral valve. Trace pulmonic regurgitation. Mild tricuspid regurgitation. Atrial fibrillation October 2020 Echocardiogram February 2021 -Technically difficult exam; suboptimal imaging quality. -The left ventricle is not adequately visualized. -Wall motion is difficult to assess. Suggest repeat study with myocardial contrast agent (Definity or Optison) -LV size is mild to moderately dilated with mild concentric hypertrophy and moderately depressed global systolic function. LVEF 40-45%. -indeterminate diastolic filling pressure. -Poor image quality limits wall motion assessment. -RV size is mild to moderately dilated with normal systolic function. -No significant valve lesions. Electrocardiogram February 2021 ELECTRONIC VENTRICULAR PACEMAKER ABNORMAL RHYTHM ECG ICD generator exchange October 2022 Cardioversion January 2023 Electrocardiogram May 2023 ELECTRONIC VENTRICULAR PACEMAKER ABNORMAL RHYTHM ECG DIAGNOSIS: 1. Essential hypertension USE ECHOCARDIOGRAM CANCELED: USE ECHOCARDIOGRAM 2. Hypercholesterolemia 3. Nonischemic cardiomyopathy (CMS/HCC HHS/HCC) 4. Biventricular cardiac pacemaker in situ 5. Paroxysmal atrial fibrillation (CMS/HCC HHS/HCC) 6. S/P ablation of atrial fibrillation 7. Cerebrovascular disease 8. Personal history of thromboembolic disease Tiffany Badillo MD, [facility], [facility] 49:44 AM Referring Provider: No ref. provider found PCP: QASIM ROLON DO documented in this encounter Plan of Treatment Upcoming Encounters Date Type Department Care Team (Late st Contact Info) Description 02/15/2024 1:30 PM SITE INSPECTOR [facility] [address] [place] [address] Tyrell Leiva, PA-C [address] [place] [address] 02/15/2024 1:30 PM SITE INSPECTOR Allied Health/Nurse Visit [facility] [address] [place] [address] Mary Barber MD [address] [place] [address] 03/15/2024 11:15 AM SITE INSPECTOR Office Visit [facility] [address] [place] [address] Jim Tamez MD [address] [place] [address] 05/16/2024 1:15 AM CDT Allied Health/Nurse Visit [facility] [address] [place] [address] Mary Barber MD [address] [place] [address] 09/07/2024 9:00 AM CDT Office Visit [address] [place] [address] Tiffany Badillo MD [address] [place] [address] documented as of this encounter Visit Diagnoses Diagnosis Essential hypertension- Primary Unspecified essential hypertension Hypercholesterolemia Pure hypercholesterolemia Nonischemic cardiomyopathy (CMS/HCC HHS/HCC) Other primary cardiomyopathies Biventricular cardiac pacemaker in situ Cardiac pacemaker in situ Paroxysmal atrial fibrillation (CMS/HCC HHS/HCC) Atrial fibrillation S/P ablation of atrial fibrillation Other postprocedural status Cerebrovascular disease Cerebrovascular disease, unspecified Personal history of thromboembolic disease Personal history of venous thrombosis and embolism documented in this encounter Care Teams Seaman Relationship Specialty Start Date End Date Qasim Rolon DO [address] [place] [address] PCP - General FAMILY PRACTICE 04/13/19 Mary Barber MD [address] [place] [phone] EP Air Defense Specialist CLINICAL CARDIAC ELECTROPHYSIOLOGY 09/15/16 Tiffany Badillo MD [address] [place] [address] Consulting Physician INTERVENTIONAL CARDIOLOGY 12/23/19 Erick Abdi MD [address] [id number] Consulting Physician PAIN MANAGEMENT 09/06/20 documented as of this encounter
--- OUTSIDE RECORDS SUMMARY | 2024-01-27 07:13 | XMS_ITS | Encounter Summary ---
Author Organization [facility] Address [facility] [facility] 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 Dashawn Landeros - 09/15/2023 at 0830 TESTING NEEDED/SCHEDULED: na STAFF MSG SENT: no COVID+TEST/EXPOSURE IN LAST 14 DAYS: n/a RECORDS NEEDED: no MYCHART OFFERED: active LETTER SENT: no CARE TEAM: notified Patient expresses understanding, questions answered. * Robles Ram RN - 08/31/2023 3:57 PM CDT Placed call to pt to schedule consult. There was no answer. Left VM with request to return call to this office and ask for robles. documented in this encounter Plan of Treatment Upcoming Encounters Date Type Department Care Team (Late st Contact Info) Description 02/15/2024 1:30 PM TRANSPORTATION MAINTENANCE WORKER [facility] [address] [place] [phone] Tyrell Leiva, PA-C [address] [place] [address] 02/15/2024 1:30 PM TRANSPORTATION MAINTENANCE WORKER Allied Health/Nurse Visit [facility] [address] [place] [phone] Mary Barber MD [address] [place] [address] 03/15/2024 11:15 AM TRANSPORTATION MAINTENANCE WORKER Office Visit [facility] [address] [place] [address] Jim Tamez MD [address] [place] [address] 05/16/2024 1:15 AM CDT Allied Health/Nurse Visit [facility] [address] [place] [address] Mary Barber MD [address] [place] [address] 09/07/2024 9:00 AM CDT Office Visit [facility] [address] [place] [address] Tiffany Badillo MD [address] [place] [address] documented as of this encounter Visit Diagnoses Not on filedocumented in this encounter Care Teams Cemetery Keeper Relationship Specialty Start Date End Date Qasim Rolon DO [address] [place] [address] PCP - General FAMILY PRACTICE 04/13/19 Mary Barber MD [address] [place] [address] EP Mis Director CLINICAL CARDIAC ELECTROPHYSIOLOGY 09/15/16 Tiffany Badillo MD [address] [place] [address] Consulting Physician INTERVENTIONAL CARDIOLOGY 12/23/19 Erick Abdi MD [address] [address] Consulting Physician PAIN MANAGEMENT 09/06/20 documented as of this encounter
--- OUTSIDE RECORDS SUMMARY | 2024-01-27 07:13 | XMS_ITS | Encounter Summary ---
Author Organization [facility] Address [address] [facility] [place] [address] [place] [address] Care Team Providers Care Mattress Filling Machine Tender Name Role Phone Mary Barber MD Unavailable Qasim Garrett DO Primary Care Provider [phone] Tiffany Badillo MD Unavailable [phone] Erick Abdi MD Unavailable [phone] Encounter Details Date Type Department Care Team (Late st Contact Info) Description 08/31/2023 9:45 AM CDT Allied Health/Nurse Visit [facility] [address] [place] [address] Mary Barber MD [address] [place] [address] Social History Tobacco Use Types Packs/Day Years [...] than three times a week 03/27/2019 Attends Confucianist Services Not on file 03/27 Active Member of Clubs or Organizations Not on f ile 03/27/2019 Attends Club or Organization Meetings Never 03/27/2019 Marital Status 03/27/2019 [facility] - Occupational Stress Questionnaire Answer [...] documented in this encounter Progress Notes * Coy Diop RN - 08/31/2023 9:45 AM CDT Images from the original note were not included. 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 BATTERY LIFE OR CURRENT VOLTAGE/ROSALIND VOLTAGE 10 y LEAD IMPEDENCE TRENDS STABLE ATRIAL PACING % 1 RV PACING % 94 BIV/LVP PACING % 93 COMMENTS ATRIAL ARRHYTHMIAS AF BURDEN 68 % LONGEST EPISODE 100% since 08/26/23 ORAL ANTICOAGULATION Eliquis/Apixaban COMMENTS VENTRICULAR ARRHYTHMIAS NSVT EPISODE(S) 0 VT EPISODE(S) 0 FVT EPISODE(S) 0 VF EPISODE(S) 0 COMMENTS ALERTS / NURSE COMMENTS Normal device function PHYSICIAN COMMENTS (IF ANY) Cosigned by Mary Barber MD at 09/02/2023 10:48 AM CDT documented in this encounter Plan of Treatment Upcoming Encounters Date Type Department Care Team (Late st Contact Info) Description 02/15/2024 1:30 PM LEAD CASE MANAGER [facility] [address] [place] [address] Tyrell Leiva PA-C [address] [place] [address] 02/15/2024 1:30 PM LEAD CASE MANAGER Allied Health/Nurse Visit [facility] [address] [place] [address] Mary Barber MD [address] [place] [address] 03/15/2024 11:15 AM LEAD CASE MANAGER Office Visit [facility] [address] [place] [address] Jim Tamez MD [address] [place], [place] [address] 05/16/2024 1:15 AM CDT Allied Health/Nurse Visit [facility] [address] [place] [address] Mary Barber MD [address] [place] [address] 09/07/2024 9:00 AM CDT Office Visit [address] [place] [address] Tiffany Badillo MD [address] [place], [place] [address] documented as of this encounter Visit Diagnoses Diagnosis VT (ventricular tachycardia) ([facility])- Primary Paroxysmal ventricular tachycardia documented in this encounter Care Teams Mattress Filling Machine Tender Relationship Specialty Start Date End Date Qasim Garrett DO [address] [place] [address] PCP - General FAMILY PRACTICE 04/13/19 Mary Barebr MD [address] [place] [phone] EP Aerospace Project Manager CLINICAL CARDIAC ELECTROPHYSIOLOGY 09/15/16 Tiffany Badillo MD [address] [place], [place] [address] Consulting Physician INTERVENTIONAL CARDIOLOGY 12/23/19 Erick Abdi MD [address] [address] Consulting Physician PAIN MANAGEMENT 09/06/20 documented as of this encounter
--- OUTSIDE RECORDS SUMMARY | 2024-01-27 07:13 | XMS_ITS | Encounter Summary ---
Author Organization [facility] Address [address] [facility] [place] [address] [place] [address] Care Team Providers Care Mainspring Barrel Assembly Cleaner Name Role Phone Mary Barber MD Unavailable Qasim Garrett DO Primary Care Provider [phone] Tiffany Badillo MD Unavailable [phone] Erick Abdi MD Unavailable [phone] Encounter Details Date Type Department Care Team (Latest Contact Info) Description 08/26/2023 Travel Social History Tobacco Use Types Packs/Day [...] than three times a week 03/27/2019 Attends Christian Services Not on file 03/27 Active Member of Clubs or Organizations Not on f ile 03/27/2019 Attends Club or Organization Meetings Never 03/27/2019 Marital Status 03/27/2019 [facility] Occupat ional Health - Occupational Stress [...] st Contact Info) Description 02/15/2024 1:30 PM TITLE INSURANCE SALES REPRESENTATIVE Office Visit [facility] [address] [place] [address] Tyrell Leiva, PAHaylieC [address] [place] [address] 02/15/2024 1:30 PM TITLE INSURANCE SALES REPRESENTATIVE Allied Health/Nurse Visit [facility] [address] [place] [address] Mary Barber MD [address] [place] [address] 03/15/2024 11:15 AM TITLE INSURANCE SALES REPRESENTATIVE Office Visit [facility] [address] [place] [address] Jim Tamez MD [address] [place], [place] [address] 05/16/2024 1:15 AM CDT Allied Health/Nurse Visit [facility] [address] [place] [address] Mary Barber MD [address] [place] [address] 09/07/2024 9:00 AM CDT Office Visit [facility] [address] [place] [address] Tiffany Badillo MD [address] [place] [address] documented as of this encounter Visit Diagnoses Not on filedocumented in this encounter Care Teams Mainspring Barrel Assembly Cleaner Relationship Specialty Start Date End Date Qasim Garrett DO [address] [place] [address] PCP - General FAMILY PRACTICE 04/13/19 Mary Barber MD [address] [place] [phone] EP Neurological Physiotherapist CLINICAL CARDIAC ELECTROPHYSIOLOGY 09/15/16 Tiffany Badillo MD [address] [place] [phone] Consulting Physician INTERVENTIONAL CARDIOLOGY 12/23/19 Erick Abdi MD [address] [place] [address] Consulting Physician PAIN MANAGEMENT 09/06/20 documented as of this encounter
--- OUTSIDE RECORDS SUMMARY | 2024-01-27 07:14 | XMS_ITS | Encounter Summary ---
Author Organization [facility] Address [address] [facility] [place] [address] [place] [address] Care Team Providers Care Solids Control Technician Name Role Phone Mary Barber MD Unavailable Qasim Garrett DO Primary Care Provider [phone] Tiffany Badillo MD Unavailable [phone] Erick Abdi MD Unavailable [phone] Reason for Visit * Reason Onset Date Comments Concerns 08/24/2023 Encounter Details Date Type Department Care Team (Late st Contact Info) Description 08/24/2023 Telephone [facility] [address] [place] [address] Radha Hamilton, [facility]- [address] [place] [address] Concerns Social History Tobacco Use Types Packs/Day Years [...] Organization Meetings Never 03/27/2019 Marital Status 03/27/2019 [facility] - Occupational [...] documented in this encounter Progress Notes * ROSEMARIE Campos - 08/25/2023 1:32 PM CDT Called patient to discuss swelling symptoms. She reports that she has had swelling for approximately 1-1/2 months in both ankles. She typically has some swelling in the ankle with all the hardware but this was new. She denies any shortness of breath orthopnea. She reports that her legs will not carry denies any pain. Swelling does go to just above the ankle and is concerned. She does not currently take any diuretics. She also discussed that she wants to be a DNR. She was encouraged to discuss this with Dr. Barber andhis staff to disable the defibrillator mode on her ICD. Patient then states that she has an appointment with Dr. Badillo tomorrow morning at 8:30 AM. Will defer to Dr. Badillo's judgment tomorrow.. * Johnna Ambrocio RN - 08/25/2023 1:08 PM CDT [place] 0830 [place] and placed this pt in that place to be seen. Called thept to inform her of this, she agreed with U/V. Called and left message at pt's pcp office requesting recent labs and testing (KAMLESH) to be faxed to [phone] in lieu of apt tomorrow. * Johnna Ambrocio RN - 08/24/2023 4:20 PM CDT Returned call to pt and informed her I dont see where I can get her scheduled at this time but willhope for a cancellation for wed apts in [place] - either way I will call her regarding whether or not she will have an apt and if anything, [place] will get her scheduled when he returns 08/25. Pt v/u and had no further questions at this time - * Johnna Ambrocio RN - 08/24/2023 4:05 PM CDT Returned call to pt and she states she has never had swelling in her ankles until recently. She states her PCP did a workup including a normal KAMLESH on Thursday. She then states she wants to know what isgoing on with her heart rather than just get a diuretic. I informed the pt she will most likely receive a diuretic and an apt for an echo so there is an updated one. She v/u - told pt I will have to return call regarding her being scheduled. She v/u - * Diane Dawn - 08/24/2023 9:26 AM CDT Patient called, she is having swelling in her ankles. She went to her primary and has had testing. Her PCP told her to reach out to her heart doctor? documented in this encounter Plan of Treatment Upcoming Encounters Date Type Department Care Team (Late st Contact Info) Description 02/15/2024 1:30 PM MEDICAL PHYSICS PROFESSOR [facility] [address] [place] [address] Tyrell Leiva PA-C [address] [place] [address] 02/15/2024 1:30 PM MEDICAL PHYSICS PROFESSOR Allied Health[facility] [address] [place] [address] Mary Barber MD [address] [place] [address] 03/15/2024 11:15 AM MEDICAL PHYSICS PROFESSOR Office Visit [facility] [address] [place] [address] Jim Tamez MD [address] [place], [place] [address] 05/16/2024 1:15 AM CDT Allied Health/Nurse Visit [facility] [address] [place] [address] Mary Barber MD [address] [place] [address] 09/07/2024 9:00 AM CDT Office Visit [facility] [address] [place] [address] Tiffany Badillo MD [address] [place], [place] [address] documented as of this encounter Visit Diagnoses Not on filedocumented in this encounter Care Teams Solids Control Technician Relationship Specialty Start Date End Date Qasim Garrett DO [address] [place] [address] PCP - General FAMILY PRACTICE 04/13/19 Mary Barber MD [address] [place] [phone] EP Entertainment Usher CLINICAL CARDIAC ELECTROPHYSIOLOGY 09/15/16 Tiffany Badillo MD [address] [place], [place] [address] Consulting Physician INTERVENTIONAL CARDIOLOGY 12/23/19 Erick Abdi MD [address] [place] [address] Consulting Physician PAIN MANAGEMENT 09/06/20 documented as of this encounter
--- OUTSIDE RECORDS SUMMARY | 2024-01-27 07:14 | XMS_ITS | Encounter Summary ---
Author Organization [facility] Address [address] [facility] [place] [address] [place] [address] Care Team Providers Care [employer]ancials Name Role Phone Mary Barber MD Unavailable Qasim Garrett DO Primary Care Provider [phone] Tiffany Badillo MD Unavailable [phone] Erick Abdi MD Unavailable [phone] Encounter Details Date Type Department Care Team (Late st Contact Info) Description 02/05/2023 [facility] [address] [place] [address] Scanned, Doc Pccl Social History Tobacco Use Types [...] Organization Meetings Never 03/27/2019 Marital Status 03/27/2019 [facility] ional Health - Occupational [...] Author Status No 11/06/2020 3:38 PM CDT Kiesha, Ericka E, RN Active documented in this encounter Plan of Treatment Upcoming Encounters Date Type Department Care Team (Late st Contact Info) Description 02/15/2024 1:30 PM HEATER ENGINEER HELPER [facility] [address] [place] [address] Tyrell Leiva PA-C [address] [place] [address] 02/15/2024 1:30 PM HEATER ENGINEER HELPER Allied Health/Nurse Visit [facility] [address] [place] [address] Mary Barber MD [address] [place] [address] 03/15/2024 11:15 AM HEATER ENGINEER HELPER Office Visit [facility] [place] [address] [place] [address] Jim Tamez MD [address] [place], [place] [address] [phone] 05/16/2024 1:15 AM CDT Allied Health/Nurse Visit [facility] [address] [place] [address] Mary Barber MD [address] [place] [address] 09/07/2024 9:00 AM CDT Office Visit [facility] [place] [address] [place] [address] Tiffany Badillo MD [address] [place], [place] [address] [phone] documented as of this encounter Visit Diagnoses Not on filedocumented in this encounter Care Teams Peoples[employer] Financials Relationship Specialty Start Date End Date Qasim Garrett DO [address] [place] [address] PCP - General FAMILY PRACTICE 04/13/19 Mary Barber MD [address] [place] [phone] EP Perforating Machine Operator CLINICAL CARDIAC ELECTROPHYSIOLOGY 09/15/16 Tiffany Badillo MD [address] [place], [place] [address] Consulting Physician INTERVENTIONAL CARDIOLOGY 12/23/19 Erick Abdi MD [address] [place] [address] Consulting Physician PAIN MANAGEMENT 09/06/20 documented as of this encounter
--- OUTSIDE RECORDS SUMMARY | 2024-01-27 07:14 | XMS_ITS | Encounter Summary ---
Author Organization [facility] Address [address] [facility] [place] [address] [place] [address] Care Team Providers Care Chief Librarian Music Department Name Role Phone Mary Barber MD Unavailable Qasim Garrett DO Primary Care Provider [phone] Tiffany Badillo MD Unavailable [phone] Erick Abdi MD Unavailable [phone] Encounter Details Date Type Department Care Team (Late st Contact Info) Description 05/19/2023 9:00 AM CDT Allied Health/Nurse Visit [facility] [address] [place] [address] Tyrell Leiva, PA-C [address] [place] [address] Social History Tobacco Use Types Packs/Day Years [...] Organization Meetings Never 03/27/2019 Marital Status 03/27/2019 [facility]at ional Health - Occupational [...] encounter Progress Notes * Triny Rader - 05/19/2023 9:00 AM CDT In office device check performed by [employer] on 05/19/2023 See media for pdf Cosigned by Mary Barber MD at 05/20/2023 5:28 PM CDT documented in this encounter Plan of Treatment Upcoming Encounters Date Type Department Care Team (Late st Contact Info) Description 02/15/2024 1:30 PM VICE PRESIDENT INVESTOR RELATIONS Office Visit [facility] [address] [place] [address] [phone] Tyrell Leiva, PA-C [address] [place] [address] 02/15/2024 1:30 PM VICE PRESIDENT INVESTOR RELATIONS Allied Health/Nurse Visit [facility] [address] [place] [address] Mary Barber MD [address] [place] [address] [phone] 03/15/2024 11:15 AM VICE PRESIDENT INVESTOR RELATIONS Office Visit [facility] [place] [address] Jim Tamez MD [address] [place] [address] 05/16/2024 1:15 AM CDT Allied Health/Nurse Visit [facility] [address] [place] [address] Mary Barber MD [address] [place] [address] 09/07/2024 9:00 AM CDT Office Visit [facility] [place] [address] Tiffany Badillo MD [address] [place], [place] [address] documented as of this encounter Visit Diagnoses Diagnosis Biventricular ICD (implantable cardioverter-defibrillator) in place- Primary VT (ventricular tachycardia) ([facility]) Paroxysmal ventricular tachycardia documented in this encounter Care Teams Chief Librarian Music Department Relationship Specialty Start Date End Date Qasim Garrett DO [address] [place] [address] PCP - General FAMILY PRACTICE 04/13/19 Mary Barber MD [address] [place] [address] EP Supervisor Laundry CLINICAL CARDIAC ELECTROPHYSIOLOGY 09/15/16 Tiffany Badillo MD [address] [place], [place] [address] Consulting Physician INTERVENTIONAL CARDIOLOGY 12/23/19 Erick Abdi MD [address] [place] [phone] Consulting Physician PAIN MANAGEMENT 09/06/20 documented as of this encounter
--- OUTSIDE RECORDS SUMMARY | 2024-01-27 07:14 | XMS_ITS | Encounter Summary ---
Author Organization [facility] Address [facility] [place] [address] [place] [address] Care Team Providers Care Staff Physician Name Role Phone Mary Barber MD Unavailable Qasim Rolon DO Primary Care Provider [phone] Tiffany Badillo MD Unavailable [phone] Erick Abdi MD Unavailable [phone] Reason for Visit * Reason Comments Follow Up htn Encounter Details Date Type Department Care Team (Late st Contact Info) Description 03/23/2023 10:00 AM PAPERBOARD BOXES ESTIMATOR Office Visit [facility] [place] [address] Radha Hamilton, ANP- [address] [place] [address] Follow Up (htn) Social History Tobacco Use Types Packs/Day Years [...] Organization Meetings Never 03/27/2019 Marital Status 03/27/2019 [facility] of Occupat ional Health - Occupational Stress [...] Sign Reading Time Taken Comments Blood Pressure 139/79 03/23/2023 10:48 AM PAPERBOARD BOXES ESTIMATOR Pulse 70 03/23/2023 10:04 AM PAPERBOARD BOXES ESTIMATOR Temperature - - Respiratory Rate 12 03/23/2023 10:04 AM PAPERBOARD BOXES ESTIMATOR Oxygen Saturation 97% 03/23/2023 10:04 AM PAPERBOARD BOXES ESTIMATOR Inhaled Oxygen Concentration - - Weight - - Height 157.5 cm (5' 2 ) 03/23/2023 10:04 AM PAPERBOARD BOXES ESTIMATOR Body Mass Index - - documented in this encounter Functional Status * [...] documented in this encounter Progress Notes * Radha Hamilton, ANP-BC - 03/23/2023 10:00 AM CST Chief Complaint: Follow Up (htn) HISTORY: Sera Shaffer is a 88-year-old female with past medical history of hypertension, hypercholesterolemia, atrial fibrillation post ablation and Lariat procedure, hemorrhagic stroke, saddle 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 She is accompanied by her daughter today. She tells me she is apparently doing awful and is back in atrial fibrillation. She is not having any symptoms of palpitations, dizziness, lightheadedness, shortness of breath, or any chest pain. She wanted to discuss the benefit of having another cardioversion versus remaining in atrial fibrillation use rate control. She continues to be focused on her weight and refused to have her weight done today at the office because she was embarrassed of the number. She had her generator replaced in November [address] Barber. RECOMMENDATIONS AND PLAN: Blood pressure and heart rate are controlled today but on the lower end of normal. She is not currently taking any diuretics and her blood pressure has been stable. Her last echocardiogram was in February 2021 with a EF of 40-45%. Do not see any reason to repeat this today. Continue Entresto Will defer amiodarone to EP. She continues to follow-up with her annual chest x- rays, eye exams, and semiannual TSH and liver enzymes. She has a concern if the amiodarone is stopped that she will have more PVCs. Last labs on file from October 2020. Defer to PCP for lipids I encouraged her to remain active not focused on her weight and to continue to have an emphasis on remaining healthy and taking in good nutrients. Follow up in 6 month(s) or sooner if any problems arise. PAST MEDICAL HISTORY: Past Medical History: Diagnosis Date Acute pulmonary embolism (HHS/HCC) ([facility]) 03/27/2019 Arthritis Atrial fibrillation (HHS/HCC) ([facility]) CAD (coronary artery disease) Hyperlipidemia Hypertension Hypothyroidism ICB (intracranial bleed) ([facility]/HCC) ([facility]) Non-ischemic cardiomyopathy (HHS/HCC) ([facility]) TIA (transient ischemic attack) Came in for possible TIA today VT (ventricular tachycardia) ([facility]) ([facility]) Past Surgical History: Procedure Laterality Date ABDOMINAL [...] tablet (100 mg total) by mouth daily. 10/31/22 Monique Iverson NP apixaban (ELIQUIS) 5 MG tablet TAKE 1 TABLET BY MOUTH TWICE A DAY 11/07/22 Mary Barber MD aspirin 81 MG tablet Take 1 tablet (81 mg total) by mouth daily. 04/29/06 [facility] levothyroxine 100 MCG tablet Take 1 tablet (100 mcg total) by mouth daily. 11/07/19 [facility] pantoprazole EC 40 MG tablet Take 1 tablet (40 mg total) by mouth daily. 12/13/19 [facility] pregabalin (LYRICA) 50 MG capsule Take 1 capsule (50 mg total) by mouth 2 (two) times daily. 02/11/22Default History Genericprovider RESTASIS 0.05 % ophthalmic emulsion 10/03/22 Default History Genericprovider rosuvastatin (CRESTOR) 40 MG tablet take 1 tablet by mouth everyday at bedtime 02/16/23 Tiffany Badillo MD sacubitril-valsartan (ENTRESTO) 24-26 MG tablet Take 1 tablet by mouth 2 (two) times daily. 10/21/22Tiffany Badillo MD SOCIAL HISTORY: Social History Tobacco Use Smoking status: Former Types: Cigarettes Quit date: 1971 Years since quittin.1 Smokeless tobacco: Never Vaping Use Vaping Use: Never used Substance Use Topics Alcohol use: No Drug use: No FAMILY HISTORY: Family History Problem Relation Name Age of Onset ME Mother ME Father CABG Brother Stent Brother Stroke Paternal Grandfather Heart Disease Other premature coronary heart disease REVIEW OF ORGANS AND SYSTEMS: Review of Systems Constitutional: Positive for fatigue and weakness. Negative for recent unintentional weight gain and recent unintentional weight loss. HENT: Negative for new or significant hearing loss. Eyes: Negative for blurred vision and double vision. Respiratory: Negative for cough, new or significant shortness of breath and snoring. Cardiovascular: See HPI. Gastrointestinal: Positive for heartburn and nausea. Negative for blood in stool and melena. Genitourinary: Negative for dysuria. Musculoskeletal: Positive for myalgias. Skin: Negative for rash. Neurological: Negative for tingling/numbness and focal weakness. Endo/Heme/Allergies: Positive for easy bruising/bleeding. Negative for polydipsia. Psychiatric/Behavioral: Negative for depression and new or significant memory loss. PHYSICAL EXAM: Filed Vitals: 03/23/23 1004 03/23/23 1005 03/23/23 1048 BP: (!) 149/74 (!) 142/80 139/79 Pulse: 70 Resp: 12 SpO2: 97% Height: 1.575 m (5' 2 ) Body mass index is 31.28 kg/m??. Physical Exam Constitutional: No distress. HENT: [...] PT pulses 2+, Left PT Pulses 2+, Negative for edema. Normal pulses. Heart Sounds: Normal heart sounds. [...] 10/31/2020 ALT 21 10/31/2020 TSH 1.66 10/13/2014 Duplex venous ultrasound March 2019 Rt Lower [...] 2021 ELECTRONIC VENTRICULAR PACEMAKER ABNORMAL RHYTHM ECG Device replacement 11/03/2022 - Successful generator replacement of a [place] biventricular ICD. DIAGNOSIS: 1. Primary hypertension Chronic 2. Mixed hyperlipidemia Chronic 3. NICM (nonischemic cardiomyopathy) (HHS/HCC) (CMS/HCC) Chronic ROSEMARIE ARECHIGA 0:51 AM Referring Provider: No ref. provider found PCP: QASIM ROLON DO RBOARD BOXES ESTIMATOR documented in this encounter Plan of Treatment Upcoming Encounters Date Type Department Care Team (Late st Contact Info) Description 02/15/2024 1:30 PM PAPERBOARD BOXES ESTIMATOR Office Visit [facility] [address] [place] [address] Tyrell Leiva, PAHaylieC [address] [place] [address] 02/15/2024 1:30 PM PAPERBOARD BOXES ESTIMATOR Allied Health/Nurse Visit [facility] [address] [place] [address] Mary Barber MD [address] [place] [address] 03/15/2024 11:15 AM PAPERBOARD BOXES ESTIMATOR Office Visit [facility] [address] [place] [address] Jim Tamez MD [address] [place], [place] [address] 05/16/2024 1:15 AM CDT Allied Health/Nurse Visit [facility] [address] [place] [address] Mary Barber MD [address] [place] [address] 09/07/2024 9:00 AM CDT Office Visit [address] [place] [address] Tiffany Badillo MD [address] [place], [place] [address] documented as of this encounter Visit Diagnoses Diagnosis Primary hypertension- Primary Unspecified essential hypertension Mixed hyperlipidemia NICM (nonischemic cardiomyopathy) (CMS/HCC HHS/HCC) Other primary cardiomyopathies documented in this encounter Care Teams Staff Physician Relationship Specialty Start Date End Date Qasim Rolon DO [address] [place] [address] PCP - General FAMILY PRACTICE 04/13/19 Mary Barber MD [address] [place] [address] EP Green Jobs Trainer CLINICAL CARDIAC ELECTROPHYSIOLOGY 09/15/16 Tiffany Badillo MD [address] [place] [address] Consulting Physician INTERVENTIONAL CARDIOLOGY 12/23/19 Erick Abdi MD [address] [place] [id number] Consulting Physician PAIN MANAGEMENT 09/06/20 documented as of this encounter
--- OUTSIDE RECORDS SUMMARY | 2024-01-27 07:14 | XMS_ITS | Encounter Summary ---
Author Organization [facility] Address [address] [facility] [place] [address] [place] [address] Care Team Providers Care Retail Operations Specialist Name Role Phone Mary Barber MD Unavailable Qasim Garrett DO Primary Care Provider Tiffany Badillo MD Unavailable [phone] Erick Abdi MD Unavailable [phone] Reason for Visit * Reason Onset Date Comments Problem 03/20/2023 Encounter Details Date Type Department Care Team (Late st Contact Info) Description 03/20/2023 [facility] [address] [place] [address] Mary Barber MD [address] [place] [address] Problem Social History Tobacco Use Types Packs/Day Years [...] Organization Meetings Never 03/27/2019 Marital Status 03/27/2019 [facility] of Occupat ional Health - [...] documented in this encounter Progress Notes * Tyrell Leiva PA-C - 03/20/2023 2:30 PM CST I had a detailed conversation regarding atrial fibrillation over the phone with patient. I would not recommend DCCV (recent recurrence of persistent atrial fibrillation after recent cardioversion). Her rates have not been fast. She has history of AV node ablation. With her age, I would not recommend catheter ablation of atrial fibrillation. I would recommend continue rate control strategy with her. I would recommend continuing amiodarone for PVCs and, in the event patient does request to restore sinus rhythm, possible cardioversion. She may have her daughter contact me via [employer] / [employer]. I will reiterate recommendations to patient's daughter. STRIAL TECHNOLOGY TEACHER * Claudia Cobb RN - 03/20/2023 9:17 AM CST Spoke with Sera regarding remote transmission received. She states that she does not feel any symptoms when she is in afib, states she's tired sometimes but she just keeps going . She states she will call back if she has any symptoms or problems. She would like someone to call her back if they have any recommendations or suggestions on what is next. I confirmed we would call back STRIAL TECHNOLOGY TEACHER * Coy Diop RN - 03/20/2023 8:46 AM CST Remote alert transmission received for return of AF after DCCV on 02/05/23 100% AF since 03/17/23 Per device clinic protocol, AT/AF alerts will be turned off in website until otherwise notified. Please notify device clinic if patient has an afib ablation or cardioversion in the future, so we can turn alerts back on. STRIAL TECHNOLOGY TEACHER documented in this encounter Plan of Treatment Upcoming Encounters Date Type Department Care Team (Late st Contact Info) Description 02/15/2024 1:30 PM INDUSTRIAL TECHNOLOGY TEACHER Office Visit [facility] ld [address] [place] [address] Tyrell Leiva, PA-C [address] [place] [address] 02/15/2024 1:30 PM INDUSTRIAL TECHNOLOGY TEACHER Allied Health/Nurse Visit [facility] [address] [place] [address] Mary Barber MD [address] [place] [address] 03/15/2024 11:15 AM INDUSTRIAL TECHNOLOGY TEACHER Office Visit [facility] [place] [address] [place] [address] Jim Tamez MD [address] [place], [place] [address] [phone] 05/16/2024 1:15 AM CDT Allied Health/Nurse Visit [facility] ld [address] [place] [address] [phone] Mary Barber MD [address] [place] [address] 09/07/2024 9:00 AM CDT Office Visit [facility] [place] [address] [place] [address] Tiffany Badillo MD [address] [place] [address] documented as of this encounter Visit Diagnoses Not on filedocumented in this encounter Care Teams Retail Operations Specialist Relationship Specialty Start Date End Date Qasim Garrett DO [address] [place] [address] PCP - General FAMILY PRACTICE 04/13/19 Mary Barber MD [address] [place] [address] EP Fibreglass Laminator CLINICAL CARDIAC ELECTROPHYSIOLOGY 09/15/16 Tiffany Badillo MD [address] [place], [place] [address] Consulting Physician INTERVENTIONAL CARDIOLOGY 12/23/19 Eirck Abdi MD [address] [phone] Consulting Physician PAIN MANAGEMENT 09/06/20 documented as of this encounter
--- OUTSIDE RECORDS SUMMARY | 2024-01-27 07:14 | XMS_ITS | Encounter Summary ---
Author Organization [facility] Address [address] [facility] [place] [address] [place] [address] Care Team Providers Care Housekeeper Nanny Name Role Phone Mary Barber MD Unavailable Qasim Garrett DO Primary Care Provider [phone] Tiffany Badillo MD Unavailable [phone] Erick Abdi MD Unavailable [phone] Jim Tamez MD Unavailable Reason for Visit * Reason Comments Vascular Lab Study (SCAN) Encounter Details Date Type Department Care Team (Late st Contact Info) Description 08/21/2023 Scan [facility] ld [address] [place] [address] Scanned, Doc Pccl Vascular Lab Study (SCAN) Social History Tobacco Use Types Packs/Day Years [...] Organization Meetings Never 03/27/2019 Marital Status 03/27/2019 [facility] [place] of Occupat ional Health - Occupational Stress [...] Author Status No 11/06/2020 3:38 PM CDT Erikca Pop RN Active documented in this encounter Plan of Treatment Upcoming Encounters Date Type Department Care Team (Late st Contact Info) Description 02/15/2024 1:30 PM SHANK FAKER Office Visit [facility] [address] [place] [address] Tyrell Leiva PAHaylieC [address] [place] [address] 02/15/2024 1:30 PM SHANK FAKER Allied Health/Nurse Visit [facility] [address] [place] [address] Mary Barber MD [address] [place] [address] 03/15/2024 11:15 AM SHANK FAKER Office Visit [facility] [place] [address] [place] [address] Jim Tamez MD [address] [place] [address] 05/16/2024 1:15 AM CDT Allied Health/Nurse Visit [facility] [address] [place] [address] Mary Barber MD [address] [place] [address] [phone] 09/07/2024 9:00 AM CDT Office Visit [facility] [place] [address] [place] [address] Tiffany Badillo MD [address] [place] [address] documented as of this encounter Procedures Procedure Name Priority Date/Time Associated Diagnosis Comments VASCULAR LAB GENERIC (SCAN ORDER) Routine 08/21/2023 documented in this encounter Results * VASCULAR LAB (08/21/2023) us Doc Pccl Scanned SCANNING Final Result [facility] ONBASE documented in this encounter Visit Diagnoses Not on filedocumented in this encounter Care Teams Housekeeper Nanny Relationship Specialty Start Date End Date Qasim Garrett DO [address] [place] [address] PCP - General FAMILY PRACTICE 04/13/19 Mary Barber MD [address] [place] [address] EP Band Shover CLINICAL CARDIAC ELECTROPHYSIOLOGY 09/15/16 Tiffany Badillo MD [address] [place], [place] [address] Consulting Physician INTERVENTIONAL CARDIOLOGY 12/23/19 Erick Abdi MD [address] [place] [address] Consulting Physician PAIN MANAGEMENT 09/06/20 Jim Tamez MD [address] [place] [address] Consulting Physician INTERNAL MEDICINE 09/10/23 documented as of this encounter
--- OUTSIDE RECORDS SUMMARY | 2024-01-27 07:14 | XMS_ITS | Encounter Summary ---
Author Organization [facility] Address [address] [place] [address] [place] [address] Care Team Providers Care Oracle Analyst Name Role Phone Mary Barber MD Unavailable Qasim Garrett DO Primary Care Provider [phone] Tiffany Badillo MD Unavailable [phone] Erick Abdi MD Unavailable [phone] Encounter Details Date Type Department Care Team (Late st Contact Info) Description 05/18/2023 Orders Only [facility] [address] [place] [address] Mary Barber MD [address] [place] [address] Social History Tobacco Use Types Packs/Day Years [...] than three times a week 03/27/2019 Attends Mormonism Services Not on file 03/27 Active Member of Clubs or Organizations Not on f ile 03/27/2019 Attends Club or Organization Meetings Never 03/27/2019 Marital Status 03/27/2019 [facility] of Occupat ional Health - Occupational [...] Date Type Department Care Team (Late st [facility] Info) Description 02/15/2024 1:30 PM RIVET TESTER Office Visit [facility] [address] [place] [address] Tyrell Leiva PAHaylieC [address] [place] [address] 02/15/2024 1:30 PM RIVET TESTER Allied Health/Nurse Visit [facility] [address] [place] [address] Mary Barber MD [address] [place] [address] 03/15/2024 11:15 AM RIVET TESTER Office Visit [facility] [place] [address] [place] [address] Jim Tamez MD [address] [place] [address] 05/16/2024 1:15 AM CDT Allied Health/Nurse Visit [facility] [address] [place] [address] Mary Barber MD [address] [place] [address] 09/07/2024 9:00 AM CDT Office Visit [facility] [place] [address] [place] [address] Tiffany Badillo MD [address] [place] [address] documented as of this encounter Results * ELECTROCARDIOGRAM (05/19/2023 9:05 AM CDT) 05/19/2023 9:05 AM CDT Narrative [facility] - 05/25/2023 4:53 PM CDT ? [facility], [facility] ?[address] [place], [place] ??[address] ? Test Date: ?2023-05-19 Pat Name: ? RAKAN SHAW ?Department: ?? 105 ? Room: ? Gender: ? Female ? Terrazzo Tile Maker: ?? ssb : ?1935 ? Requested By: MARY BARBER Order Number: [id number] ?Reading MD: ?? Maldonado Mcgee ? Measurements Intervals ?[place] ? Rate: ? 71 ? P: ? TN: ? 0 ?QRS: ?119 QRSD: ? 127 ?T: ?19 QT: ? 438 ? QTc: ?479 ? Interpretive Statements ELECTRONIC VENTRICULAR PACEMAKER ABNORMAL RHYTHM ECG Procedure Note Maldonado Mcgee MD - 05/25/2023 [facility], [facility] [address] [place] [address] Test Date: 2023-05-19 Pat Name: RAKAN SHAW Department: 105 Room: Gender: Female Terrazzo Tile Maker: everardo : 1935 Requested By: MARY BARBER Order Number: [id number] Reading MD: Maldonado Mcgee Measurements Intervals [place] Rate: 71 P: TN: 0 QRS: 119 QRSD: 127 T: 19 QT: 438 QTc: 479 Interpretive Statements ELECTRONIC VENTRICULAR PACEMAKER ABNORMAL RHYTHM ECG us Mary Braber MD PROCEDURES-ORDERABLE NO CHARGE F inal Result [facility] documented in this encounter Visit Diagnoses Diagnosis Paroxysmal atrial fibrillation (CMS/HCC HHS/HCC)- Primary Atrial fibrillation Paroxysmal atrial fibrillation (CMS/HCC HHS/HCC) Atrial fibrillation documented in this encounter Care Teams Oracle Analyst Relationship Specialty Start Date End Date Qasim Garrett DO [address] [place] [address] PCP - General FAMILY PRACTICE 04/13/19 Mary Barber MD [address] [place] [address] EP Prototype Deicer Assembler CLINICAL CARDIAC ELECTROPHYSIOLOGY 09/15/16 Tiffany Badillo MD [address] [place], [place] [address] Consulting Physician INTERVENTIONAL CARDIOLOGY 12/23/19 Erick Abdi MD [address] [address] Consulting Physician PAIN MANAGEMENT 09/06/20 documented as of this encounter
--- OUTSIDE RECORDS SUMMARY | 2024-01-27 07:14 | XMS_ITS | Encounter Summary ---
Author Organization [facility] Address [address] [facility] [place] [address] [place] [address] Care Team Providers Care Skin Specialist Name Role Phone Mary Barber MD Unavailable Qasim Garrett DO Primary Care Provider [phone] Tiffany Badillo MD Unavailable [phone] Erick Abdi MD Unavailable [phone] Reason for Visit * Reason Onset Date Comments Appointment Reminder 03/19/2023 Encounter Details Date Type Department Care Team (Late st Contact Info) Description 03/19/2023 Telephone [facility] [address] [place] [address] Radha Hamilton, ANP- [address] [place] [address] Appointment Reminder Social History Tobacco Use Types Packs/Day Years [...] than three times a week 03/27/2019 Attends Sikhism Services Not on file 03/27 Active Member of Clubs or Organizations Not on f ile 03/27/2019 Attends Club or Organization Meetings Never 03/27/2019 Marital Status 03/27/2019 [facility] of Occupat ional Health - [...] encounter Progress Notes * Diane Dawn - 03/19/2023 3:24 PM CST Patient called and confirmed her appointment on 03/23/23 at 10:00 am with Radha in [place]. END CAREGIVER documented in this encounter Plan of Treatment Upcoming Encounters Date Type Department Care Team (Late st Contact Info) Description 02/15/2024 1:30 PM WEEKEND CAREGIVER Office Visit [facility] ld [address] [place] [address] Tyrell Leiva PA-C [address] [place] [address] 02/15/2024 1:30 PM WEEKEND CAREGIVER Allied Health/Nurse Visit [facility] [address] [place] [address] Mary Barber MD [address] [place] [address] 03/15/2024 11:15 AM WEEKEND CAREGIVER Office Visit [facility] [place] [address] Jim Tamez MD [address] [place] [address] 05/16/2024 1:15 AM CDT Allied Health/Nurse Visit [facility] [address] [place] [address] Mary Barber MD [address] [place] [address] 09/07/2024 9:00 AM CDT Office Visit [facility] [place] [address] Tiffany Badillo MD [address] [place], [place] [address] documented as of this encounter Visit Diagnoses Not on filedocumented in this encounter Care Teams Skin Specialist Relationship Specialty Start Date End Date Qasim Garrett DO [address] [place] [address] PCP - General FAMILY PRACTICE 04/13/19 Mary Barber MD [address] [place] [address] EP Air Pollution Compliance Inspector CLINICAL CARDIAC ELECTROPHYSIOLOGY 09/15/16 Tiffany Badillo MD [address] [place], [place] [address] Consulting Physician INTERVENTIONAL CARDIOLOGY 12/23/19 Erick Abdi MD [address] [place] [address] Consulting Physician PAIN MANAGEMENT 09/06/20 documented as of this encounter
--- OUTSIDE RECORDS SUMMARY | 2024-01-27 07:14 | XMS_ITS | Encounter Summary ---
Author Organization [facility] Address [address] [facility] [place] [address] [place] [address] Care Team Providers Care Civil Engineer In Training Name Role Phone Mary Barber MD Unavailable Hi Rolon DO Primary Care Provider [phone] Tiffany Badillo MD Unavailable [phone] Erick Abdi MD Unavailable [phone] Reason for Visit * Reason Comments Atrial Fibrillation Bradycardia Cardiomyopathy Follow Up Other ICD management Encounter Details Date Type Department Care Team (Late st Contact Info) Description 05/19/2023 9:00 AM CDT Office Visit [facility] [address] [place] [address] Tyrell Leiva, PA-C [address] [place] [address] Atrial Fibrillation; Bradycardia; Cardiomyopathy; Follow Up; Other (ICD management) Social History Tobacco Use Types Packs/Day Years [...] than three times a week 03/27/2019 Attends Buddhist Services Not on file 03/27 Active Member of Clubs or Organizations Not on f ile 03/27/2019 Attends Club or Organization Meetings Never 03/27/2019 Marital Status 03/27/2019 [facility] Occupat ional [facility] - [...] Sign Reading Time Taken Comments Blood Pressure 122/80 05/19/2023 8:55 AM CDT Pulse 65 05/19/2023 8:55 AM CDT Temperature - - Respiratory Rate 16 05/19/2023 8:55 AM CDT Oxygen Saturation 99% 05/19/2023 8:55 AM CDT Inhaled Oxygen Concentration - - Weight 79.8 kg (176 lb) 05/19/2023 8:55 AM CDT Height 157.5 cm (5' 2 ) 05/19/2023 8:55 AM CDT Body Mass Index 32.19 05/19/2023 8:55 AM CDT documented in this encounter Functional [...] Progress Notes * Tyrell Leiva PA-C - 05/19/2023 9:00 AM CDTAddended by: TYRELL LEIVA on: 05/21/2023 03:07 PM Modules accepted: Level of Service * Tyrell Leiva PA-C - 05/19/2023 9:00 AM CDT Images from the original note were not included. Cardiac Electrophysiology Clinic Note PATIENT NAME: Rakan Shaw : 1935 REFERRING PROVIDER: No ref. provider found PCP: HI ROLON DO Reason for Visit AF, PPM History of Present Illness Mrs. Shaw is a very pleasant 88-year-old female with past medical history of atrial fibrillationrefractory to amiodarone post catheter ablation in of atrial fibrillation in 2020, history of AV node ablation and dual-chamber pacemaker implantation 2006 with upgrade to [employer] biventricular ICD 2013. 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 She presents clinic today for follow-up. She is not symptomatic with her atrial fibrillation. No chest pain, palpitations, shortness of breath, dizziness, lightheadedness, presyncope or syncope. No heart failure symptoms of lower extremity edema, weight gain or cough. She has a very good functionalstatus for 88 years old. She remains on amiodarone and Eliquis with no bleeding issues. ECG Sinus rhythm with atrial tracking ventricular pacing rate 71 bpm. Device Interrogation We interrogated the device today and that showed a [employer] biventricular ICD with good battery voltage and satisfactory pacing and sensing thresholds. Underlying rhythm was atrial fibrillation. [place] of atrial fibrillation around 60% of the time. Atrial paced 3% of the time biventricular paced 1%. Around 9.5 years remaining on estimated battery status. Diagnosis Persistent now permanent atrial fibrillation refractory to amiodarone post catheter ablation in 2020 and amiodarone continued. She had recurrence and has burden around 60% on device interrogation today. AV node ablation and pacemaker dependence 7. History of [employer] dual-chamber pacemaker 2006 with upgrade to [employer] biventricular ICD in 2013. 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 Intolerant to Coumadin due to subdural hematomarequiring evacuation in 2007. History of percutaneous ligation of left atrial appendage using a lariat device in 2013. Severe nonischemic cardiomyopathy with chronic systolic dysfunction LVEF 30% in 2012 and LVEF most recently 40-45% in 2021 with NYHA class II symptoms. PVCs with low burden on device interrogation today. 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 Family history of coronary artery disease, stroke, diabetes. Recommendations Medication list reviewed with patient. As rates are controlled with AV node ablation and patient is not symptomatic with atrial fibrillation, discontinue amiodarone and pursue rate control strategy. Continue chronic oral anticoagulation on Eliquis 5 mg p.o. twice daily for DVT/PE. Continue remote device interrogations as scheduled. No device programming changes made in clinic today. Follow-up in clinic with device interrogation in 8 months or sooner if needed. Management of hyperlipidemia and hypertension as per Dr. Eleanor Badillo. I personally spent a total of 40 minutes on the day of the encounter. This includes fwnw-tx-ripa and irb-lqua-eg-face time I provided on the day of the encounter & excludes time spent performing separately reportable services. Medications Current Outpatient Medications: aspirin 81 MG tablet, Take 1 tablet (81 mg total) by mouth daily., Disp: , Rfl: ELIQUIS 5 MG tablet, take 1 tablet by mouth twice a day, Disp: 60 tablet, Rfl: 5 levothyroxine 100 MCG tablet, Take 1 tablet (100 mcg total) by mouth daily., Disp: , Rfl: pantoprazole EC 40 MG [...] Rfl: 1 sacubitril-valsartan (ENTRESTO) 24-26 MG tablet, Take 1 tablet by mouth 2 (two) times daily., Disp:60 tablet, Rfl: 9 Allergies Allergies Allergen Reactions Penicillins Anaphylaxis Oxycodone GI Upset Vicodin [Hydrocodone-Acetaminophen] GI Upset Past History Past Medical History: Diagnosis Date Acute pulmonary embolism ([facility]) 03/27/2019 Arthritis Atrial fibrillation ([facility]) CAD (coronary artery disease) Hyperlipidemia Hypertension Hypothyroidism ICB (intracranial bleed) ([facility]) Non-ischemic cardiomyopathy ([facility]) TIA (transient ischemic attack) Came in for possible TIA today VT (ventricular tachycardia) ([facility]) Past Surgical History: Procedure Laterality Date ABDOMINAL [...] Types: Cigarettes Quit date: 1971 Years since quittin.3 Smokeless tobacco: Never Vaping Use Vaping status: Never Used Substance Use Topics Alcohol use: No Drug use: No Family History Problem Relation Name Age of Onset SC Mother SC Father CABG Brother Stent Brother Stroke Paternal Grandfather Heart Disease Other premature coronary heart disease Review of Systems Review of Systems Constitutional: Negative for chills, fever and malaise/fatigue. HENT: Negative for hearing loss and nosebleeds. Eyes: Negative for blurred vision and double vision. Respiratory: Negative for cough, hemoptysis and shortness of breath. Cardiovascular: Negative for chest pain, palpitations and leg swelling. Gastrointestinal: Negative for blood in stool, heartburn, melena and nausea. Genitourinary: Negative for dysuria and hematuria. Musculoskeletal: Negative for falls and myalgias. Skin: Negative for itching and rash. Neurological: Negative for dizziness, focal weakness and loss of consciousness. Endo/Heme/Allergies: Does not bruise/bleed easily. Psychiatric/Behavioral: Negative for depression. The patient is not nervous/anxious. Physical Examination Vitals: 05/19/23 0855 BP: 122/80 Pulse: 65 Resp: 16 SpO2: 99% Physical Exam Constitutional: General: She is not in acute distress. Appearance: She is well-developed. HENT: Nose: No mucosal edema. Mouth/Throat: Pharynx: No oropharyngeal exudate. Neck: Vascular: No carotid bruit or JVD. Cardiovascular: Rate and Rhythm: Normal rate and regular rhythm. No extrasystoles are present. Heart sounds: S1 normal and S2 normal. No murmur heard. No gallop. Pulmonary: Effort: Pulmonary effort is normal. No respiratory distress. Breath sounds: Normal breath sounds. Abdominal: Palpations: There is no mass. Tenderness: There is no abdominal tenderness. Musculoskeletal: General: No deformity. Cervical back: Neck supple. Skin: General: Skin is warm and dry. Findings: No erythema. Neurological: Mental Status: She is alert and oriented to person, place, and time. Psychiatric: Behavior: Behavior normal. Thought Content: Thought content normal. Signed TYRELL LEIVA PA-C 05/19/2023 documented in this encounter Plan of Treatment Upcoming Encounters Date Type Department Care Team (Late st Contact Info) Description 02/15/2024 1:30 PM MEDICAL NUMERICAL CONTROL OPERATOR Office Visit [facility] [address] [place] [address] Tyrell Leiva PA-C [address] [place] [address] 02/15/2024 1:30 PM MEDICAL NUMERICAL CONTROL OPERATOR Allied Health/Nurse Visit [facility] [address] [place] [address] Mary Barber MD [address] [place] [address] 03/15/2024 11:15 AM MEDICAL NUMERICAL CONTROL OPERATOR Office Visit [facility] [address] [place] [address] Jim Tamez MD [address] [place], [place] [phone]- 05/16/2024 1:15 AM CDT Allied Health/Nurse Visit [facility] [address] [place] [address] Mary Barber MD [address] [place] [address] 676- 09/07/2024 9:00 AM CDT Office Visit [place] [address] [place] [address] [phone] Tiffany Badillo MD [address] [place], [place] [phone] documented as of this encounter Procedures Procedure Name Priority Date/Time Associated Diagnosis Comments ELECTROCARDIOGRAM (NON MIDMARK ACQUIRED) Routine 05/19/2023 9:05 AM CDT Paroxysmal atrial fibrillation ([facility]) documented in this encounter Results * ELECTROCARDIOGRAM (05/19/2023 9:05 AM CDT) 05/19/2023 9:05 AM CDT Narrative [facility] - 05/25/2023 4:53 PM CDT ? [facility] ?[address], [place] ??[address] ? Test Date: ?2023-05-19 Pat Name: ? RAKAN SHAW ?Department: ?? 105 ? Room: ? Gender: ? Female ? Medicaid Collection Specialist: ?? ssb : ?1935 ? Requested By: ZIAD BANG Order Number: [id number] ?Reading MD: ?? Maldonado Mcgee ? Measurements Intervals ?[place] ? Rate: ? 71 ? P: ? MS: ? 0 ?QRS: ?119 QRSD: ? 127 ?T: ?19 QT: ? 438 ? QTc: ?479 ? Interpretive Statements ELECTRONIC VENTRICULAR PACEMAKER ABNORMAL RHYTHM ECG Procedure Note Maldonado Mcgee MD - 05/25/2023 [facility], [place] [address] [place] [address] Test Date: 2023-05-19 Pat Name: RAKAN SHAW Department: 105 Room: Gender: Female Medicaid Collection Specialist: everardo : 1935 Requested By: MARY BARBER Order Number: [id number] Reading MD: Maldonado Mcgee Measurements Intervals [place] Rate: 71 P: MS: 0 QRS: 119 QRSD: 127 T: 19 QT: 438 QTc: 479 Interpretive Statements ELECTRONIC VENTRICULAR PACEMAKER ABNORMAL RHYTHM ECG us Mary Barber MD PROCEDURES-ORDERABLE NO CHARGE F inal Result [facility] documented in this encounter Visit Diagnoses Diagnosis Paroxysmal atrial fibrillation ([facility]) Atrial fibrillation documented in this encounter Care Teams Civil Engineer In Training Relationship Specialty Start Date End Date Hi Rolon DO [address] [place] [address] PCP - General FAMILY PRACTICE 04/13/19 Mary Barber MD [address] [place] [address] EP Advanced Manufacturing Technician CLINICAL CARDIAC ELECTROPHYSIOLOGY 09/15/16 Tiffany Badillo MD [address] [place] [address] Consulting Physician INTERVENTIONAL CARDIOLOGY 12/23/19 Erick Abdi MD [address] [place] [phone] Consulting Physician PAIN MANAGEMENT 09/06/20 documented as of this encounter
--- OUTSIDE RECORDS SUMMARY | 2024-01-27 07:14 | XMS_ITS | Encounter Summary ---
Author Organization [facility] Address [address] [facility] [place] [address] [place] [address] Care Team Providers Care Magnetic Doctor Name Role Phone Mary Barber MD Unavailable Qasim Garrett DO Primary Care Provider [phone] Tiffany Badillo MD Unavailable [phone] Erick Abdi MD Unavailable [phone] Reason for Visit * Reason Onset Date Comments Medication Problem 03/03/2023 Encounter Details Date Type Department Care Team (Late st Contact Info) Description 03/03/2023 Telephone [facility] [address] [place] [address] Tiffany Badillo MD [address] [place] [address] Medication Problem Social History Tobacco Use Types Packs/Day [...] Organization Meetings Never 03/27/2019 Marital Status 03/27/2019 [facility] Occupat ional Health - Occupational [...] documented in this encounter Progress Notes * Melia Robbins RN - 03/03/2023 2:22 PM CST Spoke with pt. She thinks she may have accidentally taken her Eliquis and Entresto twice. She is not sure. I suggested that we should error on the side of caution and just skip dose tonight and restart tomorrow morning. She v/u. IT INTERVIEWER * Lynne Brewster - 03/03/2023 2:16 PM CST Patient thinks she took her Eliquis and Entresto twice today. Transferred call to Melia STOVALL. IT INTERVIEWER documented in this encounter Plan of Treatment Upcoming Encounters Date Type Department Care Team (Late st Contact Info) Description 02/15/2024 1:30 PM CREDIT INTERVIEWER Office Visit [facility] [address] [place] [address] Tyrell Leiva, PA-C [address] [place] [address] 02/15/2024 1:30 PM CREDIT INTERVIEWER Allied Health/Nurse Visit [facility] [address] [place] [address] Mary Barber MD [address] [place] [address] 03/15/2024 11:15 AM CREDIT INTERVIEWER Office Visit [facility] [place] [address] Jim Tamez MD [address] [place] [address] 05/16/2024 1:15 AM CDT [facility] [address] [place] [address] Mary Barber MD [address] [place] [address] 09/07/2024 9:00 AM CDT Office Visit [facility] [place] [address] Tiffany Badillo MD [address] [place] [address] documented as of this encounter Visit Diagnoses Not on filedocumented in this encounter Care Teams Magnetic Doctor Relationship Specialty Start Date End Date Qasim Garrett DO [address] [place] [address] PCP - General FAMILY PRACTICE 04/13/19 Mary Barber MD [address] [place] [address] EP Assistant Drafter CLINICAL CARDIAC ELECTROPHYSIOLOGY 09/15/16 Tiffany Badillo MD [address] [place], [place] [address] Consulting Physician INTERVENTIONAL CARDIOLOGY 12/23/19 Erick Abdi MD [address] [address] Consulting Physician PAIN MANAGEMENT 09/06/20 documented as of this encounter
--- OUTSIDE RECORDS SUMMARY | 2024-01-27 07:14 | XMS_ITS | Encounter Summary ---
Author Organization [facility] Address [address] [place] [address] [place] [address] Care Team Providers Care Helper Driver Name Role Phone Mary Barber MD Unavailable Qasim Garrett DO Primary Care Provider [phone] Tiffany Badillo MD Unavailable [phone] Erick Abdi MD Unavailable [phone] Encounter Details Date Type Department Care Team (Latest Contact Info) Description 05/19/2023 Travel Social History Tobacco Use Types Packs/Day [...] than three times a week 03/27/2019 Attends Hindu Services Not on file 03/27 Active Member of Clubs or Organizations Not on f ile 03/27/2019 Attends Club or Organization Meetings Never 03/27/2019 Marital Status 03/27/2019 [facility] of Occupat ional Health - Occupational Stress [...] st Contact Info) Description 02/15/2024 1:30 PM WIRER HELPER Office Visit [facility] [address] [place] [address] Tyrell Leiva, PAHaylieC [address] [place] [address] 02/15/2024 1:30 PM WIRER HELPER Allied Health/Nurse Visit [facility] [address] [place] [address] Mary Barber MD [address] [place] [address] 03/15/2024 11:15 AM WIRER HELPER Office Visit [facility] [address] [place] [address] Jim Tamez MD [address] [place], [place] [address] 05/16/2024 1:15 AM CDT Allied Health/Nurse Visit [facility] [address] [place] [address] Mary Barber MD [address] [place] [address] 09/07/2024 9:00 AM CDT Office Visit [facility] [address] [place] [address] Tiffany Badillo MD [address] [place] [address] documented as of this encounter Visit Diagnoses Not on filedocumented in this encounter Care Teams Helper Driver Relationship Specialty Start Date End Date Qasim Garrett DO [address] [place] [address] PCP - General FAMILY PRACTICE 04/13/19 Mary Barber MD [address] [place] [address] EP It Systems Analyst Consultant CLINICAL CARDIAC ELECTROPHYSIOLOGY 09/15/16 Tiffany Badillo MD [address] [place] [phone] Consulting Physician INTERVENTIONAL CARDIOLOGY 12/23/19 Erick Abdi MD [address] [place] [address] Consulting Physician PAIN MANAGEMENT 09/06/20 documented as of this encounter
--- OUTSIDE RECORDS SUMMARY | 2024-01-27 07:14 | XMS_ITS | Encounter Summary ---
Author Organization [facility] Address [address] [facility] [place] [address] [place] [address] Care Team Providers Care Tumbler Dyeing Machine Operator Name Role Phone Mary Barber MD Unavailable Qasim Garrett DO Primary Care Provider [phone] Tiffany Badillo MD Unavailable [phone] Erick Abdi MD Unavailable [phone] Reason for Visit * Reason Onset Date Comments Cardiac Device Management 07/22/2023 Encounter Details Date Type Department Care Team (Late st Contact Info) Description 07/22/2023 Telephone [facility] [address] [place] [address] Mary Barber MD [address] [place] [address] Cardiac Device Management Social History [...] than three times a week 03/27/2019 Attends Anabaptism Services Not on file 03/27 Active Member of Clubs or Organizations Not on f ile 03/27/2019 Attends Club or Organization Meetings Never 03/27/2019 Marital Status 03/27/2019 [facility] of Occupat ional Health - [...] Progress Notes * Coy Diop RN - 07/23/2023 2:10 PM CDT Worksheet faxed to number provided * Coy Diop RN - 07/22/2023 2:34 PM CDT Images from the original note were not included. Perioperative Management of Pacemakers/Defibrillators Patient Name: Sera Shaffer Date of : 1935 Surgery Specifications: Type of Surgery: E.G.D Location of Surgery: [facility] (Electrocautery, Lithotripsy) expected? [x] Yes (possible) [] No Device Specifications: Device Type: [] Pacemaker [] Single Chamber [] Medtronic [] Dual Chamber [x] [employer] [x] ICD [x] Biventricular [] [place]in/[employer] Lamin [] Biotronik [] Usman Device Programming: Pacing Mode: DDDR -BIV Minimum pacing rate: 60 Maximum pacing rate: 120 ICD VT therapy: 180 / 210 bpm Effect of magnet on device: Effect on pacing function: None Effect on ICD VT therapy: Temporarily suspends tachy therapies until magnet removed Device function normal? [x] Yes [] No [] Unknown Is patient pacing-dependent? [x] Yes [] No [] Unknown EP Recommendations Pre-operative device management: [] No action required [] Device interrogation at [facility] before surgery [] Device interrogation on the day of surgery (Call device company to schedule) [x] Reprogram device before surgery as follows: [x] Program pacing to asynchronous pacing mode [x] Turn off ICD arrhythmia detection Intra-operative device management: [x] No action required [] Apply magnet over the device [] Cardiac monitoring [] Have defibrillator pads immediately available [] Apply defibrillator pads on patient [] Use arterial line so pulse wave and blood pressure can be monitored during short applications of electrocautery. 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 Mary Barber Signature: MARY BARBER MD Date: 07/23/2023 * Coy Diop RN - 07/22/2023 2:31 PM CDT Device clinic received fax request for periop worksheet. Pt to have EGD on 07/27/23 Please fax worksheet to [facility] - Endoscopy Pre Admission testing [phone] documented in this encounter Plan of Treatment Upcoming Encounters Date Type Department Care Team (Late st Contact Info) Description 02/15/2024 1:30 PM MOBILE APPLICATION ENGINEER Office Visit [facility] [address] [place] [phone] Tyrell Leiva PA-C [address] [place] [address] 02/15/2024 1:30 PM MOBILE APPLICATION ENGINEER Allied Health/Nurse Visit [facility] [address] [place] [address] Mary Barber MD [address] [place] [address] [phone] 03/15/2024 11:15 AM MOBILE APPLICATION ENGINEER Office Visit [facility] [place] [address] Jim Tamez MD [address] [place] [address] 05/16/2024 1:15 AM CDT [facility] [address] [place] [address] Mary Barber MD [address] [place] [address] 09/07/2024 9:00 AM CDT Office Visit [facility] [place] [address] Tiffany Badillo MD [address] [place], [place] [address] documented as of this encounter Visit Diagnoses Not on filedocumented in this encounter Care Teams Tumbler Dyeing Machine Operator Relationship Specialty Start Date End Date Qasim Garrett DO [address] [place] [address] PCP - General FAMILY PRACTICE 04/13/19 Mary Barber MD [address] [place] [address] EP Pretzel Cooker CLINICAL CARDIAC ELECTROPHYSIOLOGY 09/15/16 Tiffany Badillo MD [address] [place] [address] Consulting Physician INTERVENTIONAL CARDIOLOGY 12/23/19 Erick Abdi MD [address] [place] [address] Consulting Physician PAIN MANAGEMENT 09/06/20 documented as of this encounter
--- OUTSIDE RECORDS SUMMARY | 2024-01-27 07:14 | XMS_ITS | Encounter Summary ---
Author Organization [facility] Address [address] [place] [address] [place] [address] Care Team Providers Care Breakfast Hostess Name Role Phone Mary Barber MD Unavailable Qasim Garrett DO Primary Care Provider [phone] Tiffany Badillo MD Unavailable [phone] Erick Abdi MD Unavailable [phone] Encounter Details Date Type Department Care Team (Latest Contact Info) Description 03/23/2023 Travel Social History Tobacco Use Types Packs/Day [...] than three times a week 03/27/2019 Attends Rastafari Services Not on file 03/27 Active Member of Clubs or Organizations Not on f ile 03/27/2019 Attends Club or Organization Meetings Never 03/27/2019 Marital Status 03/27/2019 [facility] of Occupat ional Health - Occupational Stress [...] st Contact Info) Description 02/15/2024 1:30 PM TECHNICAL ASSOCIATE Office Visit [facility] [address] [place] [phone] Tyrell Leiva, PAHaylieC [address] [place] [address] 02/15/2024 1:30 PM TECHNICAL ASSOCIATE Allied Health/Nurse Visit [facility] [address] [place] [phone] Mary Barber MD [address] [place] [address] 03/15/2024 11:15 AM TECHNICAL ASSOCIATE Office Visit [facility] [address] [place] [address] Jim Tamez MD [address] [place], [place] [address] 05/16/2024 1:15 AM CDT Allied Health/Nurse Visit [facility] [address] [place] [phone] Mary Barber MD [address] [place] [address] 09/07/2024 9:00 AM CDT Office Visit [facility] [address] [place] [address] Tiffany Badillo MD [address] [place] [address] documented as of this encounter Visit Diagnoses Not on filedocumented in this encounter Care Teams Breakfast Hostess Relationship Specialty Start Date End Date Qasim Garrett DO [address] [place] [address] PCP - General FAMILY PRACTICE 04/13/19 Mary Barber MD [address] [place] [phone] EP Shovel Operator CLINICAL CARDIAC ELECTROPHYSIOLOGY 09/15/16 Tiffany Badillo MD [address] [place] [phone] Consulting Physician INTERVENTIONAL CARDIOLOGY 12/23/19 Erick Abdi MD [address] [place] [phone] Consulting Physician PAIN MANAGEMENT 09/06/20 documented as of this encounter
--- OUTSIDE RECORDS SUMMARY | 2024-01-27 07:15 | XMS_ITS | Encounter Summary ---
Author Organization [facility] Address [address] [facility] [place] [address] [place] [address] Care Team Providers Care Inside Sales Director Name Role Phone Mary Barber MD Unavailable Qasim Garrett DO Primary Care Provider [phone] Tiffany Badillo MD Unavailable [phone] Erick Abdi MD Unavailable [phone] Encounter Details Date Type Department Care Team (Latest Contact Info) Description 02/05/2023 Travel Social History Tobacco Use Types Packs/Day [...] than three times a week 03/27/2019 Attends Gnosticist Services Not on file 03/27 Active Member of Clubs or Organizations Not on f ile 03/27/2019 Attends Club or Organization Meetings Never 03/27/2019 Marital Status 03/27/2019 [facility] of Occupat ional Health - Occupational Stress [...] st Contact Info) Description 02/15/2024 1:30 PM GRINDING ROOM INSPECTOR [facility] [address] [place] [phone] Tyrell Leiva, PAHaylieC [address] [place] [address] 02/15/2024 1:30 PM GRINDING ROOM INSPECTOR Allied Health[facility] [address] [place] [address] Mary Barber MD [address] [place] [address] 03/15/2024 11:15 AM GRINDING ROOM INSPECTOR Office Visit [facility] [address] [place] [address] Jim Tamez MD [address] [place], [place] [phone] 05/16/2024 1:15 AM CDT Allied [facility] [address] [place] [phone] Mary Barber MD [address] [place] [address] 09/07/2024 9:00 AM CDT Office Visit [facility] [address] [place] [phone] Tiffany Badillo MD [address] [place] [address] documented as of this encounter Visit Diagnoses Not on filedocumented in this encounter Care Teams Inside Sales Director Relationship Specialty Start Date End Date Qasim Garrett DO [address] [place] [address] PCP - General FAMILY PRACTICE 04/13/19 Mary Barber MD [address] [place] [phone] EP Professor Of Chemical Engineering CLINICAL CARDIAC ELECTROPHYSIOLOGY 09/15/16 Tiffany Badillo MD [address] [place] [phone] Consulting Physician INTERVENTIONAL CARDIOLOGY 12/23/19 Erick Abdi MD [address] [place] [phone] Consulting Physician PAIN MANAGEMENT 09/06/20 documented as of this encounter
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
--- OUTSIDE RECORDS SUMMARY | 2024-01-27 07:16 | XMS_ITS | Encounter Summary ---
Author Organization [facility] Address [address] [facility] [address] [place] [address] Care Team Providers Care Grazing Aide Name Role Phone Mary Barber MD Unavailable Qasim Garrett DO Primary Care Provider [phone] Tiffany Badillo MD Unavailable [phone] Erick Abdi MD Unavailable [phone] Reason for Referral * Procedure (Routine) - Authorized Specialty Diagnoses / Procedures Referred By Contac t Referred To Contact Diagnoses Paroxysmal atrial fibrillation ([facility]) Procedures Cardioversion external Mary Barber MD [address] [place] [address] Phone: tel: fax: Referral ID Status Reason Start Date Expiration Date V isits Requested Visits Authorized [id number] Authorized 02/03/2023 02/04/2024 1 99 EGE DIRECTOR Reason for Visit * Reason Onset Date Comments Information 02/03/2023 AF alerts Encounter Details Date Type Department Care Team ([facility] st Contact Info) Description 02/03/2023 Telephone [facility] [address] [place] [address] Mary Barber MD [address] [place] [address] Information (AF alerts) Social History Tobacco Use Types Packs/Day Years [...] than three times a week 03/27/2019 Attends [employer] Services Not on file 03/27 Active Member of Clubs or Organizations Not on f ile 03/27/2019 Attends Club or Organization Meetings Never 03/27/2019 Marital Status 03/27/2019 [facility] - Occupational [...] documented in this encounter Progress Notes * Claudia Cobb RN - 02/03/2023 2:42 PM CSTAddended by: Claudia COBB on: 02/03/2023 02:42 PM Modules accepted: Orders EGE DIRECTOR * Claudia Cobb RN - 02/03/2023 2:41 PM CST Spoke with Erika and reviewed following details for cardioversion. She vu and had no further questions. Pre Procedure Appt Date: in procedure Procedure Date: February 05 at 1200 pm Arrival: 1030 am NPO: 8am Meds: take all medications prior to procedure Labs: in procedure EGE DIRECTOR * Claudia Cobb RN - 02/03/2023 2:14 PM CST Spoke with Erika regarding Sera, informed her that Monique Iverson NP recommended a cardioversion. She said that her and her mother were agreeable to that and would like it luís. I told her I would call back as soon as I got it scheduled EGE DIRECTOR * Kerry Bravo - 02/03/2023 2:08 PM CST Erika calling to follow up. [phone] or [phone] EGE DIRECTOR * Monique Iverson NP - 02/03/2023 11:40 AM CST Please schedule cardioversion. EGE DIRECTOR * Claudia Cobb RN - 02/03/2023 10:31 AM CST Spoke with Sera, she states she can definitely feel that she has been in afib all weekend. She states that she is short of breath and very weak, doesn't feel like she can get anything done at all . Advised her that I would speak with Monique Iverson NP and let her know any updates that I get. She vu and had no further questions. EGE DIRECTOR * Dianna Marshall RN - 02/03/2023 10:06 AM CST Remote transmission received 02/01/23 shows afib event in progress for > 24 hours. Known afib onEliquis Per device clinic protocol, AT/AF alerts will be turned off in website until otherwise notified. Please notify device clinic if patient has an afib ablation or cardioversion in the future, so we can turn alerts back on. Transmission scanned into media EGE DIRECTOR documented in this encounter Plan of Treatment Upcoming Encounters Date Type Department Care Team (Late st Contact Info) Description 02/15/2024 1:30 PM COLLEGE DIRECTOR [facility] [address] [place] [address] Tyrlel Leiva PA-C [address] [place] [address] 02/15/2024 1:30 PM COLLEGE DIRECTOR Allied Health/Nurse Visit [facility] [address] [place] [address] Mary Barber MD [address] [place] [address] 03/15/2024 11:15 AM COLLEGE DIRECTOR Office Visit [facility] [address] [place] [address] Jim Tamez MD [address] [place] [address] 05/16/2024 1:15 AM CDT Allied Health/Nurse Visit [facility] [address] [place] [address] Mary Barber MD [address] [place] [address] 09/07/2024 9:00 AM CDT Office Visit [facility] [address] [place] [address] Tiffany Badillo MD [address] [place] [address] documented as of this encounter Visit Diagnoses Diagnosis Paroxysmal atrial fibrillation (CMS/HCC HHS/HCC)- Primary Atrial fibrillation documented in this encounter Care Teams Grazing Aide Relationship Specialty Start Date End Date Qasim Garrett DO [address] [place] [address] PCP - General FAMILY PRACTICE 04/13/19 Mary Barber MD [address] [place] [address] EP Perforator Typist CLINICAL CARDIAC ELECTROPHYSIOLOGY 09/15/16 Tiffany Badillo MD [address] [place] [address] Consulting Physician INTERVENTIONAL CARDIOLOGY 12/23/19 Erick Abdi MD [address] [place] [address] Consulting Physician PAIN MANAGEMENT 09/06/20 documented as of this encounter
--- OUTSIDE RECORDS SUMMARY | 2024-01-27 07:16 | XMS_ITS | Encounter Summary ---
Author Organization [facility] Address [address] [facility] [place] [address] [place] [address] Care Team Providers Care Meat Grinder Name Role Phone Mary Barber MD Unavailable Qasim Garrett DO Primary Care Provider [phone] Tiffany Badillo MD Unavailable [phone] Erick Abdi MD Unavailable [phone] Encounter Details Date Type Department Care Team (Latest Contact Info) Description 11/26/2022 Travel Social History Tobacco Use Types Packs/Day [...] Organization Meetings Never 03/27/2019 Marital Status 03/27/2019 [facility] [place] of Occupat ional Health - Occupational Stress [...] st Contact Info) Description 02/15/2024 1:30 PM RESTAURANT MAINTENANCE TECHNICIAN Office Visit [facility] [address] [place] [address] Tyrell Leiva, PAHaylieC [address] [place] [address] 02/15/2024 1:30 PM RESTAURANT MAINTENANCE TECHNICIAN Allied Health/Nurse Visit [facility] [address] [place] [address] Mary Barber MD [address] [place] [address] 03/15/2024 11:15 AM RESTAURANT MAINTENANCE TECHNICIAN Office Visit [facility] [address] [place] [address] Jim Tamez MD [address] [place], [place] [address] 05/16/2024 1:15 AM CDT Allied Health/Nurse Visit [facility] [address] [place] [address] aMry Barber MD [address] [place] [address] 09/07/2024 9:00 AM CDT Office Visit [facility] [address] [place] [address] Tiffany Badillo MD [address] [place] [address] documented as of this encounter Visit Diagnoses Not on filedocumented in this encounter Care Teams Meat Grinder Relationship Specialty Start Date End Date Qasim Garrett DO [address] [place] [address] PCP - General FAMILY PRACTICE 04/13/19 Mary Barber MD [address] [place] [address] EP Charge Loader CLINICAL CARDIAC ELECTROPHYSIOLOGY 09/15/16 Tiffany Badillo MD [address] [place] [phone] Consulting Physician INTERVENTIONAL CARDIOLOGY 12/23/19 Erick Abdi MD [address] [place] [address] Consulting Physician PAIN MANAGEMENT 09/06/20 documented as of this encounter
--- OUTSIDE RECORDS SUMMARY | 2024-01-27 07:16 | XMS_ITS | Encounter Summary ---
Author Organization [facility] Address [address] [facility] [place] [address] [place] [address] Care Team Providers Care Second Time Worker Name Role Phone Mary Barber MD Unavailable Qasim Garrett DO Primary Care Provider [phone] Tiffany Badillo MD Unavailable [phone] Erick Abdi MD Unavailable [phone] Encounter Details Date Type Department Care Team (Late st Contact Info) Description 11/26/2022 10:30 AM CDT Allied Health/Nurse Visit [facility] [address] [place] [address] Mary Barber MD [address] [place] [address] Social History Tobacco Use Types Packs/Day Years [...] than three times a week 03/27/2019 Attends [employer] Not on file 03/27 Active Member of Clubs or Organizations Not on f ile 03/27/2019 Attends Club or Organization Meetings Never 03/27/2019 Marital Status 03/27/2019 [facility] - Occupational Stress Questionnaire [...] Progress Notes * Coy Diop RN - 11/26/2022 10:30 AM CDT In office device check. See media 11/26/2022 Performed by Hansel Diop RN Cosigned by Mary Barber MD at 11/28/2022 8:55 AM CDT documented in this encounter Plan of Treatment Upcoming Encounters Date Type Department Care Team (Late st Contact Info) Description 02/15/2024 1:30 PM TOLL TEST WORKER [facility] [address] [place] [address] Tyrell Leiva PA-C [address] [place] [address] 02/15/2024 1:30 PM TOLL TEST WORKER [facility] [address] [place] [address] Mary Barber MD [address] [place] [address] 03/15/2024 11:15 AM TOLL TEST WORKER Office Visit [facility] [place] [address] Jim Tamez MD [address] [place] [address] 05/16/2024 1:15 AM CDT [facility] [address] [place] [address] Mary Barber MD [address] [place] [address] 09/07/2024 9:00 AM CDT Office Visit [facility] [place] [address] Tiffany Badillo MD [address] [place] [address] documented as of this encounter Visit Diagnoses Diagnosis NICM (nonischemic cardiomyopathy) (CMS/HCC [facility]/HCC)- Primary Other primary cardiomyopathies documented in this encounter Care Teams Second Time Worker Relationship Specialty Start Date End Date Qasim Garrett DO [address] [place] [address] PCP - General FAMILY PRACTICE 04/13/19 Mary Barber MD [address] [place] [address] EP Latex Caster CLINICAL CARDIAC ELECTROPHYSIOLOGY 09/15/16 Tiffany Badillo MD [address] [place] [address] Consulting Physician INTERVENTIONAL CARDIOLOGY 12/23/19 Erick Abdi MD [address] [place] [phone] Consulting Physician PAIN MANAGEMENT 09/06/20 documented as of this encounter
--- OUTSIDE RECORDS SUMMARY | 2024-01-27 07:17 | XMS_ITS | Encounter Summary ---
Author Organization [facility] Address [address] [facility] [place] [address] [place] [address] Care Team Providers Care Float Tender Name Role Phone Mary Barber MD Unavailable Qasim Garrett DO Primary Care Provider [phone] Tiffany Badillo MD Unavailable [phone] Erick Abdi MD Unavailable [phone] Encounter Details Date Type Department Care Team (Latest Contact Info) Description 11/03/2022 Travel Social History Tobacco Use Types Packs/Day [...] than three times a week 03/27/2019 Attends [employer]ondenominational Services Not on file 03/27 Active Member of Clubs or Organizations Not on f ile 03/27/2019 Attends Club or Organization Meetings Never 03/27/2019 Marital Status 03/27/2019 [facility] of Occupat ional Health - Occupational [...] st Contact Info) Description 02/15/2024 1:30 PM NAPPER TENDER Office Visit [facility] [address] [place] [address] Tyrell Leiva, PAHaylieC [address] [place] [address] 02/15/2024 1:30 PM NAPPER TENDER Allied Health/Nurse Visit [facility] [address] [place] [address] Mary Barber MD [address] [place] [address] 03/15/2024 11:15 AM NAPPER TENDER Office Visit [facility] [address] [place] [address] Jim Tamez MD [address] [place], [place] [address] 05/16/2024 1:15 AM CDT Allied Health/Nurse Visit [facility] [address] [place] [address] Mary Barber MD [address] [place] [address] 09/07/2024 9:00 AM CDT Office Visit [facility] [address] [place] [address] Tiffany Badillo MD [address] [place] [address] documented as of this encounter Visit Diagnoses Not on filedocumented in this encounter Care Teams Float Tender Relationship Specialty Start Date End Date Qasim Garrett DO [address] [place] [address] PCP - General FAMILY PRACTICE 04/13/19 Mary Barber MD [address] [place] [address] EP Early Learning Teacher CLINICAL CARDIAC ELECTROPHYSIOLOGY 09/15/16 Tiffany Badillo MD [address] [place] [phone] Consulting Physician INTERVENTIONAL CARDIOLOGY 12/23/19 Erick Abdi MD [address] [place] [address] Consulting Physician PAIN MANAGEMENT 09/06/20 documented as of this encounter
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
--- OUTSIDE RECORDS SUMMARY | 2024-01-27 07:23 | XMS_ITS | Encounter Summary ---
Author Organization [facility] Address [address] [place] [address] [place] [address] Care Team Providers Care Bushel Girl Name Role Phone Mary Barber MD Unavailable Qasim Rolon DO Primary Care Provider [phone] Tiffany Badillo MD Unavailable [phone] Erick Abdi MD Unavailable [phone] Reason for Visit * Reason Comments Pre-Op Exam Cardiac Device Management Atrial Fibrillation Encounter Details Date Type Department Care Team (Late st Contact Info) Description 10/31/2022 11:00 AM CDT Office Visit [facility] [address] [place] [address] Jerry Iverson NP [address] [facility]. [address] [place] [address] Pre-Op Exam; Cardiac Device Management; Atrial Fibrillation Social History Tobacco Use Types Packs/Day Years [...] than three times a week 03/27/2019 Attends Mandaeism Services Not on file 03/27 Active Member of Clubs or Organizations Not on f ile 03/27/2019 Attends Club or Organization Meetings Never 03/27/2019 Marital Status 03/27/2019 [facility] of Occupat ional Health - [...] Sign Reading Time Taken Comments Blood Pressure 116/72 10/31/2022 10:59 AM CDT Pulse 60 10/31/2022 10:59 AM CDT ekg Temperature - - Respiratory Rate 18 10/31/2022 10:59 AM CDT Oxygen Saturation - - Inhaled Oxygen Concentration - - Weight 77.3 kg (170 lb 6.4 oz) 10/31/2022 10:59 AM CDT Height 160 cm (5' 3 ) 10/31/2022 10:59 AM CDT Body Mass Index 30.19 10/31/2022 10:59 AM CDT documented in this encounter Functional [...] documented in this encounter Progress Notes * Jerry Iverson NP - 10/31/2022 11:00 AM CDT Images from the original note were not included. Cardiac Electrophysiology Clinic Note PATIENT NAME: Sera Shaw : 1935 REFERRING PROVIDER: No ref. provider found PCP: QASIM ROLON DO Reason for Visit Atrial fibrillation and pacemaker History of Present Illness Ms. Shaw is a very pleasant, 87-year-old female with a history of recurrent persistent atrial fibrillation-refractory to amiodarone-status post catheter ablation 11/06/20, status post ablation of AV node, status post implantation of [employer] dual-chamber pacemaker April 2006-status post upgrade to [employer] biventricular ICD March 2013, status post [...] the device today and that showed a [employer] biventricular ICD with satisfactory pacing and sensing thresholds. Underlying rhythm was NSR/CHB. No sustained atrial or ventricular arrhythmias have been observed. AP 32%. LVP 99%. RVP 99%. DEVICE IS ROSALIND. Diagnosis Recurrent persistent atrial fibrillation. Refractory to Amiodarone. S/P Catheter ablation 11/06/20. On amiodarone. Minimal recurrence. S/P Ablation of the AV node. The patient is pacemaker dependent. S/P implantation of a [employer] dual-chamber pacemaker April 2006. S/P upgrade to a [employer] biventricular ICD March 2013. Chronic anticoagulation [...] disease, diabetes, or stroke. Recommendations Proceed with [employer] biventricular ICD generator change. We have [...] by mouth daily., Disp: 90 tablet,Rfl: 3 mufjtwit-mawmnuaqo-ldqcgjqtlfyxt (MAXITROL) 3.5-09439-7.1 Suspension, INSTILL 1 DROP INTO EACH EYE [...] History: Diagnosis Date Acute pulmonary embolism (HHS/HCC) ([facility]) 03/27/2019 Arthritis Atrial fibrillation (HHS/HCC) ([facility]) CAD (coronary artery disease) Hyperlipidemia Hypertension Hypothyroidism ICB (intracranial bleed) ([facility]/HCC) ([facility]) Non-ischemic cardiomyopathy (HHS/HCC) ([facility]) TIA (transient ischemic attack) Came in for possible TIA today VT (ventricular tachycardia) ([facility]) ([facility]) Past Surgical History: Procedure Laterality [...] History Problem Relation Name Age of Onset FL Mother FL Father CABG Brother Stent Brother Stroke Paternal [...] Thought Content: Thought content normal. Signed JERRY IVERSON NP 10/31/2022 documented in this encounter Plan of Treatment Upcoming Encounters Date Type Department Care Team (Late st Contact Info) Description 02/15/2024 1:30 PM GRIEVANCE AND APPEALS SPECIALIST [facility] [address] [place] [address] Tyrell Leiva PA-C [address] [place] [address] 02/15/2024 1:30 PM GRIEVANCE AND APPEALS SPECIALIST Allied Health/Nurse Visit [facility] ld [address] [place] [address] Mary Barber MD [address] [place] [address] 490- 03/15/2024 11:15 AM GRIEVANCE AND APPEALS SPECIALIST Office Visit [facility] [address] [place] [address] Jim Tamez MD [address] [place] [address] 05/16/2024 1:15 AM CDT Allied Health/Nurse Visit [facility] ld [address] [place] [address] Mary Barber MD [address] [place] [address] 474- 09/07/2024 9:00 AM CDT Office Visit [place] [address] [address] Tiffany Badillo MD [address] [place], [place] [address] documented as of this encounter Procedures Procedure Name Priority Date/Time Associated Diagnosis Comments ELECTROCARDIOGRAM (NON MIDMARK ACQUIRED) Routine 10/31/2022 11:09 AM CDT Paroxysmal atrial fibrillation ([facility]/HCC [facility]) documented in this encounter Results * ELECTROCARDIOGRAM (NON MIDMARK ACQUIRED) (10/31/2022 11:09 AM CDT) 10/31/2022 11:0 9 AM CDT Narrative [facility] - 11/03/2022 11:55 AM CDT ? [facility] ?[address] [place], [place] ??[address] ? Test Date: ?2022-10-31 Pat Name: ? SERA SHAW ?Department: ?? 105 ? Room: ? Gender: ? Female ? Teacher'S Aide: ?? : ?1935 ? Requested By: ZIAD SUNIL Order Number: [id number] ?Reading MD: ?? Ziad Sunil ? Measurements Intervals ?[place] ? Rate: ? 60 ? P: ?139 [place]: ? 173 ?QRS: ?125 QRSD: ? 139 ?T: ?-12 QT: ? 478 ? QTc: ?478 ? Interpretive Statements ELECTRONIC ATRIAL PACEMAKER ELECTRONIC VENTRICULAR PACEMAKER ABNORMAL RHYTHM ECG Procedure Note Mary Barber MD - 11/03/2022 [facility], [facility] [address] [place] [address] Test Date: 2022-10-31 Pat Name: SERA SHAW Department: 105 Room: Gender: Female Teacher'S Aide: : 1935 Requested By: MARY BARBER Order Number: [id number] Cee MD: Mary Barber Measurements Intervals [place] Rate: 60 P: 139 [place]: 173 QRS: 125 QRSD: 139 T: -12 QT: 478 QTc: 478 Interpretive Statements ELECTRONIC ATRIAL PACEMAKER ELECTRONIC VENTRICULAR PACEMAKER ABNORMAL RHYTHM ECG us Mary Barber MD PROCEDURES-ORDERABLE NO CHARGE F inal Result [facility] documented in this encounter Visit Diagnoses Diagnosis Pacemaker at end of battery life- Primary Fitting and adjustment of cardiac pacemaker Paroxysmal atrial fibrillation (CMS/HCC HHS/HCC) Atrial fibrillation documented in this encounter Care Teams Bushel Girl Relationship Specialty Start Date End Date Qasim Rolon DO [address] [place] [address] PCP - General FAMILY PRACTICE 04/13/19 Mary Barber MD [address] [place] [phone] EP Seater Assembler CLINICAL CARDIAC ELECTROPHYSIOLOGY 09/15/16 Tiffany Badillo MD [address] [place] [address] [phone] Consulting Physician INTERVENTIONAL CARDIOLOGY 12/23/19 Erick Abdi MD [address] [place] [address] Consulting Physician PAIN MANAGEMENT 09/06/20 documented as of this encounter
--- OUTSIDE RECORDS SUMMARY | 2024-01-27 07:23 | XMS_ITS | Encounter Summary ---
Author Organization [facility] Address [address] [facility] [place] [address] [place] [address] Care Team Providers Care Early Childhood Specialist Name Role Phone Mary Barber MD Unavailable Qasim Garrett DO Primary Care Provider [phone] Tiffany Badillo MD Unavailable [phone] Erick Abdi MD Unavailable [phone] Encounter Details Date Type Department Care Team (Late st Contact Info) Description 10/30/2022 Orders Only [facility] [address] [place] [address] Mary Barber MD [address] [place] [address] Social History Tobacco Use Types Packs/Day Years [...] than three times a week 03/27/2019 Attends Religion Services Not on file 03/27 Active Member of Clubs or Organizations Not on f ile 03/27/2019 Attends Club or Organization Meetings Never 03/27/2019 Marital Status 03/27/2019 [facility] of Occupat ional Health - Occupational Stress [...] st Contact Info) Description 02/15/2024 1:30 PM IRONER MACHINE [facility] Visit [facility] [address] [place] [address] Tyrell Leiva PAHaylieC [address] [place] [address] 02/15/2024 1:30 PM IRONER MACHINE Allied Health/Nurse [facility] [address] [place] [address] Mary Barber MD [address] [place] [address] 03/15/2024 11:15 AM IRONER MACHINE Office Visit [facility] [place] [address] [place] [address] Jim Tamez MD [address] [place] [address] 05/16/2024 1:15 AM CDT Allied Health/N[facility] Visit [facility] [address] [place] [address] Mary Barber MD [address] [place] [address] 09/07/2024 9:00 AM CDT Office Visit [facility] [place] [address] [place] [address] Tiffany Badillo MD [address] [place] [address] documented as of this encounter Results * ELECTROCARDIOGRAM (NON MIDMARK ACQUIRED) (10/31/2022 11:09 AM CDT) 10/31/2022 11:0 9 AM CDT Narrative [facility] - 11/03/2022 11:55 AM CDT ? [facility] ?[address] [place], [place] ??[address] ? Test Date: ?2022-10-31 Pat Name: ? RAKAN SHAW ?Department: ?? 105 ? Room: ? Gender: ? Female ? Pain Management Nurse: ?? : ?1935 ? Requested By: MRAY AMAYAA Order Number: [id number] ?Reading MD: ?? Ziad Bang ? Measurements Intervals ?[place] ? Rate: ? 60 ? P: ?139 CT: ? 173 ?QRS: ?125 QRSD: ? 139 ?T: ?-12 QT: ? 478 ? QTc: ?478 ? Interpretive Statements ELECTRONIC ATRIAL PACEMAKER ELECTRONIC VENTRICULAR PACEMAKER ABNORMAL RHYTHM ECG Procedure Note Mary Barber MD - 11/03/2022 [facility] [place] [address] [place] [address] Test Date: 2022-10-31 Pat Name: RAKAN SHAW Department: 105 Room: Gender: Female Pain Management Nurse: : 1935 Requested By: MARY BARBER Order Number: [id number] Reading MD: Mary Barber Measurements Intervals [place] Rate: 60 P: 139 CT: 173 QRS: 125 QRSD: 139 T: -12 QT: 478 QTc: 478 Interpretive Statements ELECTRONIC ATRIAL PACEMAKER ELECTRONIC VENTRICULAR PACEMAKER ABNORMAL RHYTHM ECG us Mary Barber MD PROCEDURES-ORDERABLE NO CHARGE F inal Result [facility] documented in this encounter Visit Diagnoses Diagnosis Paroxysmal atrial fibrillation (CMS/HCC HHS/HCC)- Primary Atrial fibrillation Pacemaker at end of battery life- Primary Fitting and adjustment of cardiac pacemaker Paroxysmal atrial fibrillation (CMS/HCC [facility]) Atrial fibrillation documented in this encounter Care Teams Early Childhood Specialist Relationship Specialty Start Date End Date Qasim Garrett DO [address] [place] [address] PCP - General FAMILY PRACTICE 04/13/19 Mary Barber MD [address] [place] [address] EP Validation Technician CLINICAL CARDIAC ELECTROPHYSIOLOGY 09/15/16 Tiffany Badillo MD [address] [place] [address] Consulting Physician INTERVENTIONAL CARDIOLOGY 12/23/19 Erick Abdi MD [address] [place] [address] Consulting Physician PAIN MANAGEMENT 09/06/20 documented as of this encounter
--- OUTSIDE RECORDS SUMMARY | 2024-01-27 07:25 | XMS_ITS | Encounter Summary ---
Author Organization [facility] Address [address] [facility] [place] [address] [place] [address] Care Team Providers Care Operations Dispatcher Name Role Phone Mary Barber MD Unavailable Qasim Garrett DO Primary Care Provider [phone] Tiffany Badillo MD Unavailable [phone] Erick Abdi MD Unavailable [phone] Reason for Visit * Reason Onset Date Comments Medication Request 10/09/2022 DOWNTIME PHON E ENCOUNTER Encounter Details Date Type Department Care Team ([facility] st Contact Info) Description 10/09/2022 Telephone [facility] [address] [place] [address] Mary Barber MD [address] [place] [address] Medication Request (DOWNTIME PHONE ENCOUNTER) Social History Tobacco Use Types Packs/Day Years [...] Organization Meetings Never 03/27/2019 Marital Status 03/27/2019 [facility] - Occupational Stress Questionnaire Answer [...] documented in this encounter Progress Notes * Love Luque - 12/16/2022 2:32 PM CST PLEASE SEE SCANNED DOCUMENT(S) FOR ENCOUNTER INFORMATION AGE MAKER documented in this encounter Plan of Treatment Upcoming Encounters Date Type Department Care Team (Late st Contact Info) Description 02/15/2024 1:30 PM SAUSAGE MAKER Office Visit [facility] [address] [place] [address] Tyrell Leiva, PAHaylieC [address] [place] [address] 02/15/2024 1:30 PM SAUSAGE MAKER Allied Health/Nurse Visit [facility] [address] [place] [address] Mary Barber MD [address] [place] [address] 03/15/2024 11:15 AM SAUSAGE MAKER Office Visit [facility] [place] [address] Jim Tamez MD [address] [place] [address] 05/16/2024 1:15 AM CDT Allied Health/Nurse Visit [facility] [address] [place] [address] Mary Barber MD [address] [place] [address] 09/07/2024 9:00 AM CDT Office Visit [facility] [place] [address] Tiffany Badillo MD [address] [place] [address] documented as of this encounter Visit Diagnoses Not on filedocumented in this encounter Care Teams Operations Dispatcher Relationship Specialty Start Date End Date Qasim Garrett DO [address] [place] [address] PCP - General FAMILY PRACTICE 04/13/19 Mary Barber MD [address] [place] [address] EP Baseball Inspector CLINICAL CARDIAC ELECTROPHYSIOLOGY 09/15/16 Tiffany Badillo MD [address] [place], [place] [address] Consulting Physician INTERVENTIONAL CARDIOLOGY 12/23/19 Erick Abdi MD [address] [place] [address] Consulting Physician PAIN MANAGEMENT 09/06/20 documented as of this encounter
--- OUTSIDE RECORDS SUMMARY | 2024-01-27 07:26 | XMS_ITS | Encounter Summary ---
Author Organization [facility] Address [address] [facility] [place] [address] [place] [address] Care Team Providers Care Family Services Manager Name Role Phone Mary Barber MD Unavailable Qasim Garrett DO Primary Care Provider [phone] Tiffany Badillo MD Unavailable [phone] Erick Abdi MD Unavailable [phone] Encounter Details Date Type Department Care Team (Latest Contact Info) Description 08/27/2022 Travel Social History Tobacco Use Types Packs/Day [...] than three times a week 03/27/2019 Attends Scientology Services Not on file 03/27 Active Member of Clubs or Organizations Not on f ile 03/27/2019 Attends Club or Organization Meetings Never 03/27/2019 Marital Status 03/27/2019 [facility] [place] of Occupat ional Health - Occupational Stress [...] st Contact Info) Description 02/15/2024 1:30 PM DISTRICT GAUGER Office Visit [facility] ld [address] [place] [address] Tyrell Leiva, PAHaylieC [address] [place] [address] 02/15/2024 1:30 PM DISTRICT GAUGER Allied Health/Nurse Visit [facility] [address] [place] [address] Mary Barber MD [address] [place] [address] 03/15/2024 11:15 AM DISTRICT GAUGER Office Visit [facility] [address] [place] [address] Jim Tamez MD [address] [place], [place] [address] 05/16/2024 1:15 AM CDT Allied Health/Nurse Visit [facility] [address] [place] [address] Mary Barber MD [address] [place] [address] 09/07/2024 9:00 AM CDT Office Visit [facility] [address] [place] [address] Tiffany Badillo MD [address] [place] [address] documented as of this encounter Visit Diagnoses Not on filedocumented in this encounter Care Teams Family Services Manager Relationship Specialty Start Date End Date Qasim Garrett DO [address] [place] [address] PCP - General FAMILY PRACTICE 04/13/19 Mary Barber MD [address] [place] [phone] EP Clinical Practice Consultant CLINICAL CARDIAC ELECTROPHYSIOLOGY 09/15/16 Tiffany Badillo MD [address] [place] [address] [phone] Consulting Physician INTERVENTIONAL CARDIOLOGY 12/23/19 Erick Abdi MD [address] [place] [address] Consulting Physician PAIN MANAGEMENT 09/06/20 documented as of this encounter
--- OUTSIDE RECORDS SUMMARY | 2024-01-27 07:26 | XMS_ITS | Encounter Summary ---
Author Organization [facility] Address [address] [facility] [place] [address] [place] [address] Care Team Providers Care Airset Molder Name Role Phone Mary Barber MD Unavailable Qasim Garrett DO Primary Care Provider [phone] Tiffany Badillo MD Unavailable [phone] Erick Abdi MD Unavailable [phone] Encounter Details Date Type Department Care Team (Late st Contact Info) Description 09/01/2022 1:30 PM CDT Allied Health/Nurse Visit [facility] [address] [place] [address] Mary Barber MD [address] [place] [address] Social History Tobacco Use Types Packs/Day Years [...] than three times a week 03/27/2019 Attends Jain Services Not on file 03/27 Active Member of Clubs or Organizations Not on f ile 03/27/2019 Attends Club or Organization Meetings Never 03/27/2019 Marital Status 03/27/2019 [facility] - Occupational Stress Questionnaire [...] documented in this encounter Progress Notes * Dianna Marshall RN - 09/01/2022 1:30 PM CDT Images from the original note were not included. ICD REMOTE INTERROGATION NAME: Sera Shaffer : 1935 CSN: [id number] DATE OF INTERROGATION: 09/01/2022 DEVICE SPECIFICATIONS DEVICE ONLINE MARKETING MANAGER [place] [employer] DEVICE TYPE BIV ICD EST. BATTERY LIFE OR CURRENT VOLTAGE/ROSALIND VOLTAGE 11 months LEAD IMPEDENCE TRENDS OK ATRIAL PACING % 33% RV PACING % 99% BIV/LVP PACING % 99% COMMENTS ATRIAL ARRHYTHMIAS AF BURDEN 40 min/ yr LONGEST EPISODE 1 min - 1 hr ORAL ANTICOAGULATION Eliquis/Apixaban and ASA COMMENTS No new events this transmission VENTRICULAR ARRHYTHMIAS NSVT EPISODE(S) 0 VT EPISODE(S) 0 FVT EPISODE(S) 0 VF EPISODE(S) 0 COMMENTS ALERTS / NURSE COMMENTS Normal device function PHYSICIAN COMMENTS (IF ANY) Cosigned by Mary Barber MD at 09/05/2022 7:36 AM CDT documented in this encounter Plan of Treatment Upcoming Encounters Date Type Department Care Team (Late st Contact Info) Description 02/15/2024 1:30 PM ASH KIER BOILER [facility] [address] [place] [address] Tyrell Leiva PA-C [address] [place] [address] 02/15/2024 1:30 PM ASH KIER BOILER Allied Health/Nurse Visit [facility] [address] [place] [address] Mary Barber MD [address] [place] [address] 03/15/2024 11:15 AM ASH KIER BOILER [facility] Visit [facility] [address] [place] [address] Jim Tamez MD [address] [place] [address] 05/16/2024 1:15 AM CDT Allied Health/Nurse Visit [facility] [address] [place] [address] Mary Barber MD [address] [place] [address] 09/07/2024 9:00 AM CDT Office Visit [address] [place] [address] Tiffany Badillo MD [address] [place] [address] documented as of this encounter Visit Diagnoses Diagnosis NICM (nonischemic cardiomyopathy) (CMS/HCC HHS/HCC)- Primary Other primary cardiomyopathies documented in this encounter Care Teams Airset Molder Relationship Specialty Start Date End Date Qasim Garrett DO [address] [place] [address] PCP - General FAMILY PRACTICE 04/13/19 Mary Barber MD [address] [place] [address] EP Printing Estimator CLINICAL CARDIAC ELECTROPHYSIOLOGY 09/15/16 Tiffany Badillo MD [address] [place] [address] Consulting Physician INTERVENTIONAL CARDIOLOGY 12/23/19 Erick Abdi MD [address] [phone] Consulting Physician PAIN MANAGEMENT 09/06/20 documented as of this encounter
--- OUTSIDE RECORDS SUMMARY | 2024-01-27 07:27 | XMS_ITS | Encounter Summary ---
Author Organization [facility] Address [address] [facility] [place] [address] [place] [address] Care Team Providers Care Inspector Motor Vehicles Name Role Phone Mary Barber MD Unavailable Qasim Garrett DO Primary Care Provider [phone] Tiffany Badillo MD Unavailable Erick Abdi MD Unavailable [phone] Encounter Details Date Type Department Care Team (Late st Contact Info) Description 07/21/2022 Orders Only [facility] [address] [place] [address] Ericka Pop, RN Social History Tobacco Use Types Packs/Day Years [...] Organization Meetings Never 03/27/2019 Marital Status 03/27/2019 [facility] of Occupat ional Health [...] st Contact Info) Description 02/15/2024 1:30 PM DIGITAL STRATEGY DIRECTOR [facility] [address] [place] [address] Tyrell Leiva PAHaylieC [address] [place] [address] 02/15/2024 1:30 PM DIGITAL STRATEGY DIRECTOR [facility] [address] [place] [address] Mary Barber MD [address] [place] [address] 03/15/2024 11:15 AM DIGITAL STRATEGY DIRECTOR [facility] Visit [facility] [place] [address] [place] [address] Jim Tamez MD [address] [place], [place] [address] 05/16/2024 1:15 AM CDT [facility] [address] [place] [address] Mary Barber MD [address] [place] [address] 09/07/2024 9:00 AM CDT Office Visit [facility] [place] [address] [place] [address] Tiffany Badillo MD [address] [place] [address] documented as of this encounter Visit Diagnoses Not on filedocumented in this encounter Care Teams Inspector Motor Vehicles Relationship Specialty Start Date End Date Qasim Garrett DO [address] [place] [address] PCP - General FAMILY PRACTICE 04/13/19 Mary Barber MD [address] [place] [address] EP Lpn Rn Hospice CLINICAL CARDIAC ELECTROPHYSIOLOGY 09/15/16 Tiffany Badillo MD [address] [place], [place] [address] Consulting Physician INTERVENTIONAL CARDIOLOGY 12/23/19 Erick Abdi MD [address] [address] Consulting Physician PAIN MANAGEMENT 09/06/20 documented as of this encounter
--- OUTSIDE RECORDS SUMMARY | 2024-01-27 07:27 | XMS_ITS | Encounter Summary ---
Author Organization [facility] - [facility] Address [address] [facility] [place] [address] [place] [address] Care Team Providers Care Insulation And Flooring Assembler Name Role Phone Mary Barber MD Unavailable Qasim Garrett DO Primary Care Provider [phone] Tiffany Badillo MD Unavailable [phone] Erick Abdi MD Unavailable [phone] Encounter Details Date Type Department Care Team (Late st Contact Info) Description 08/04/2022 Orders Only [facility] [address] [place] [address] Ericka Pop, RN Social History [...] than three times a week 03/27/2019 Attends Ten[employer] Services Not on file 03/27 Active Member of Clubs or Organizations Not on f ile 03/27/2019 Attends Club or Organization Meetings Never 03/27/2019 Marital Status 03/27/2019 [facility] of Occupat ional Health - [...] st Contact Info) Description 02/15/2024 1:30 PM REGISTERED NURSE TEACHER [facility] [address] [place] [address] Tyrell Leiva PAHaylieC [address] [place] [address] 02/15/2024 1:30 PM REGISTERED NURSE TEACHER Allied Health/Nurse Visit [facility] [address] [place] [address] Mary Barber MD [address] [place] [address] 03/15/2024 11:15 AM REGISTERED NURSE TEACHER Office Visit [facility] [place] [address] [place] [address] Jim Tamez MD [address] [place], [place] [address] 05/16/2024 1:15 AM CDT Allied Health/Nurse Visit [facility] [address] [place] [address] Mary Barber MD [address] [place] [address] 09/07/2024 9:00 AM CDT Office Visit [facility] [place] [address] [place] [address] Tiffany Badillo MD [address] [place] [address] documented as of this encounter Visit Diagnoses Not on filedocumented in this encounter Care Teams Insulation And Flooring Assembler Relationship Specialty Start Date End Date Qasim Garrett DO [address] [place] [address] PCP - General FAMILY PRACTICE 04/13/19 Mary Barber MD [address] [place] [address] EP Catia Designer CLINICAL CARDIAC ELECTROPHYSIOLOGY 09/15/16 Tiffany Badillo MD [address] [place], [place] [address] Consulting Physician INTERVENTIONAL CARDIOLOGY 12/23/19 Erick Abdi MD [address] [address] Consulting Physician PAIN MANAGEMENT 09/06/20 documented as of this encounter
--- OUTSIDE RECORDS SUMMARY | 2024-01-27 07:28 | XMS_ITS | Encounter Summary ---
Author Organization [facility] Address [address] [place] [address] [place] [address] Care Team Providers Care Surveyor Helper Rod Name Role Phone Mary Barber MD Unavailable Qasim Garrett DO Primary Care Provider [phone] Tiffany Badillo MD Unavailable [phone] Erick Abdi MD Unavailable [phone] Reason for Visit * Reason Onset Date Comments Medication Problem 07/21/2022 Blood Pressure 07/21/2022 Encounter Details Date Type Department Care Team (Late st Contact Info) Description 07/21/2022 Telephone [facility] [address] [place] [address] Tiffany Badillo MD [address] [place] [address] Medication Problem; Blood Pressure Social History Tobacco Use Types Packs/Day Years [...] Organization Meetings Never 03/27/2019 Marital Status 03/27/2019 [facility] of Occupat ional Health - Occupational Stress [...] documented in this encounter Progress Notes * Ericka Pop RN - 08/04/2022 12:12 PM CDT Called Sera and let her know Radha Alfonso would like to decrease her metoprolol to 12.5 mg daily. Aware she can just cut the tablets in half since she just filled her prescription for 25 mg tablets. She v/u and had no further questions. * ROSEMARIE aCmpos - 08/01/2022 3:28 PM CDT Please have patient decrease metoprolol to 12.5mg daily. They should be able to cut the tablet in half based the prescription sent in prior. * Ericka Pop RN - 08/01/2022 10:39 AM CDT Called Sera to see how her BP is doing. She said it has come up. 103/56 and 102/?. She said she still feels weak and does not have energy. Informed her I will send a message to Radha Hamilton and if she has further recommendations I will call her back to discuss. If she does not hear from me Charles will discuss further with her during her f/u appt on 08/27. She v/u and had no further questions. * ROSEMARIE Campos - 07/24/2022 12:59 PM CDT Called Leo with Dr. Garrett's office. She reported that SIA Barnett had returned call to patientand decrease metoprolol 25mg daily as instructed by provider (me). Will follow up this week to assess BP * Ericka Pop RN - 07/21/2022 12:58 PM CDT Called Sera and let her know Dr. Garrett's office contacted us saying she has been having low BP's and has been feeling fatigued. I reviewed with Radha Hamilton and she would like to reduce her metoprolol to 25 mg daily. Med escribed to her pharmacy. She is aware to call our office in 1 week with her BP log. She v/u and had no further questions. * Ericka Pop RN - 07/21/2022 11:19 AM CDT Called Leo back. She said Dr. Garrett would like Radha to be aware that Sera's BP has been in the low 90's and she has been feeling more fatigued lately. Wanted to see if we could lower one ofher BP medications. Informed Leo I will review with Radha Hamilton and then call patient to discuss. She v/u. * Diane Dawn - 07/21/2022 10:58 AM CDT Leo called nurse back. Please give her a call. [phone] * Ericka Pop RN - 07/21/2022 10:54 AM CDT Left VM for Leo to call our office back. * Lynne Brewster - 07/21/2022 8:18 AM CDT PCP wants to know if he can decrease one of her blood pressure medications, blood pressure has beenrunning in the 90s/60s and she has been very tired. Call Leo with Dr. Garrett back at [phone]. documented in this encounter Plan of Treatment Upcoming Encounters Date Type Department Care Team (Late st Contact Info) Description 02/15/2024 1:30 PM PAPER MAKING MACHINE OPERATOR Office Visit [facility] ld [address] [place] [address] Tyrell Leiva, PA-C [address] [place] [address] 02/15/2024 1:30 PM PAPER MAKING MACHINE OPERATOR Allied Health/Nurse Visit [facility] [address] [place] [address] Mary Barber MD [address] [place] [address] 03/15/2024 11:15 AM PAPER MAKING MACHINE OPERATOR Office Visit [facility] [place] [address] Jim Tamez MD [address] [place] [address] 05/16/2024 1:15 AM CDT Allied Health/Nurse Visit [facility] [address] [place] [address] Mary Barebr MD [address] [place] [address] 09/07/2024 9:00 AM CDT Office Visit [facility] [place] [address] Tiffany Badillo MD [address] [place] [address] documented as of this encounter Visit Diagnoses Not on filedocumented in this encounter Care Teams Surveyor Helper Rod Relationship Specialty Start Date End Date Qasim Garrett DO [address] [place] [address] PCP - General FAMILY PRACTICE 04/13/19 Mary Barber MD [address] [place] [phone] EP Lockstitch Binder CLINICAL CARDIAC ELECTROPHYSIOLOGY 09/15/16 Tiffany Badillo MD [address] [place] [address] Consulting Physician INTERVENTIONAL CARDIOLOGY 12/23/19 Erick Abdi MD [address] [address] Consulting Physician PAIN MANAGEMENT 09/06/20 documented as of this encounter
--- OUTSIDE RECORDS SUMMARY | 2024-01-27 07:29 | XMS_ITS | Encounter Summary ---
Author Organization [facility] - [facility] Address [address] [facility] [address] [place] [address] Care Team Providers Care Repairer Helper Name Role Phone Mary Barber MD Unavailable Qasim Garrett DO Primary Care Provider [phone] Tiffany Badillo MD Unavailable [phone] Erick Abdi MD Unavailable [phone] Encounter Details Date Type Department Care Team (Late st Contact Info) Description 03/10/2022 Orders Only [facility] [address] [place] [address] Ericka Pop, RN Social History [...] than three times a week 03/27/2019 Attends Islam Services Not on file 03/27 Active Member of Clubs or Organizations Not on f ile 03/27/2019 Attends Club or Organization Meetings Never 03/27/2019 Marital Status 03/27/2019 [facility] [place] of Occupat ional Health - Occupational Stress [...] file Not on file Not on file COVID-19 Exposure Response Date Recorded In the last 10 days, have andreina u been in contact with someone who was confirmed or suspected to have Coronavirus/COVID-19? No / Unsure 02/26/2022 9:25 AM COMMISSION BROKER documented as of this encounter Functional Status [...] st Contact Info) Description 02/15/2024 1:30 PM COMMISSION BROKER Office Visit [facility] [address] [place] [address] Tyrell Leiva, PAHaylieC [address] [place] [address] 02/15/2024 1:30 PM COMMISSION BROKER Allied Health/Nurse Visit [facility] [address] [place] [address] Mary Barber MD [address] [place] [address] 03/15/2024 11:15 AM COMMISSION BROKER Office Visit [facility] [place] [address] [place] [address] Jim Tamez MD [address] [place] [address] 05/16/2024 1:15 AM CDT Allied Health/Nurse Visit [facility] ld [address] [place] [address] Mary Barber MD [address] [place] [address] 09/07/2024 9:00 AM CDT Office Visit [facility] [place] [address] [place] [address] Tiffany Badillo MD [address] [place] [address] documented as of this encounter Visit Diagnoses Not on filedocumented in this encounter Care Teams Repairer Helper Relationship Specialty Start Date End Date Qasim Garrett DO [address] [place] [address] PCP - General FAMILY PRACTICE 04/13/19 Mary Barber MD [address] [place] [address] EP Stitch Bonding Machine Tender CLINICAL CARDIAC ELECTROPHYSIOLOGY 09/15/16 Tiffany Badillo MD [address] [place] [address] Consulting Physician INTERVENTIONAL CARDIOLOGY 12/23/19 Erick Abdi MD [address] [place] [address] Consulting Physician PAIN MANAGEMENT 09/06/20 documented as of this encounter
--- OUTSIDE RECORDS SUMMARY | 2024-01-27 07:30 | XMS_ITS | Encounter Summary ---
Author Organization [facility] Address [address] [facility] [place] [address] [place] [address] Care Team Providers Care Filter Plant Operator Name Role Phone Mary Barber MD Unavailable Qasim Garrett DO Primary Care Provider [phone] Tiffany Badillo MD Unavailable [phone] Erick Abdi MD Unavailable [phone] Encounter Details Date Type Department Care Team (Latest Contact Info) Description 02/26/2022 Travel Social History Tobacco Use Types Packs/Day [...] Organization Meetings Never 03/27/2019 Marital Status 03/27/2019 [facility] of Occupat ional Health - Occupational Stress [...] Recorded In the last 10 days, have yo u been in contact with someone who was confirmed or suspected to have Coronavirus/COVID-19? No / Unsure 02/26/2022 9:25 AM LAB DIRECTOR documented as of this encounter Functional Status [...] Date Type Department Care Team (Late st [facility]) Description 02/15/2024 1:30 PM LAB DIRECTOR Office Visit [facility] ld [address] [place] [address] Tyrell Leiva PA-C [address] [place] [address] 02/15/2024 1:30 PM LAB DIRECTOR Allied Health/Nurse Visit [facility] [address] [place] [address] Mary Barber MD [address] [place] [address] 03/15/2024 11:15 AM LAB DIRECTOR Office Visit [facility] [place] [address] [place] [address] Jim Tamez MD [address] [place] [address] 05/16/2024 1:15 AM CDT Allied Health/Nurse Visit [facility] [address] [place] [address] Mary Barber MD [address] [place] [address] [phone] 09/07/2024 9:00 AM CDT Office Visit [facility] [place] [address] [place] [address] Tiffany Badillo MD [address] [place] [address] documented as of this encounter Visit Diagnoses Not on filedocumented in this encounter Care Teams Filter Plant Operator Relationship Specialty Start Date End Date Qasim Garrett DO [address] [place] [address] PCP - General FAMILY PRACTICE 04/13/19 Mary Barber MD [address] [place] [address] EP Engagement Engineer CLINICAL CARDIAC ELECTROPHYSIOLOGY 09/15/16 Tiffany Badillo MD [address] [place], [place] [address] Consulting Physician INTERVENTIONAL CARDIOLOGY 12/23/19 Erick Abdi MD [address] [place] [phone] Consulting Physician PAIN MANAGEMENT 09/06/20 documented as of this encounter
--- OUTSIDE RECORDS SUMMARY | 2024-01-27 07:30 | XMS_ITS | Encounter Summary ---
Author Organization [facility] Address [address] [facility] [place] [address] [place] [address] Care Team Providers Care Furnace Setter Name Role Phone Mary Barber MD Unavailable Qasim Garrett DO Primary Care Provider [phone] Tiffany Badillo MD Unavailable [phone] Erick Abdi MD Unavailable [phone] Encounter Details Date Type Department Care Team (Latest Contact Info) Description 02/20/2022 Travel Social History Tobacco Use Types Packs/Day [...] Organization Meetings Never 03/27/2019 Marital Status 03/27/2019 [facility] of Occupat ional Health - Occupational Stress [...] suspected to have Coronavirus/COVID-19? No / Unsure 02/20/2022 1:47 PM GAMING TABLE OPERATOR documented as of this encounter Functional Status [...] Date Type Department Care Team (Late st [facility]) Description 02/15/2024 1:30 PM GAMING TABLE OPERATOR Office Visit [facility] [address] [place] [address] Tyrell Leiva PA-C [address] [place] [address] 02/15/2024 1:30 PM GAMING TABLE OPERATOR Allied Health/Nurse Visit [facility] [address] [place] [address] Mary Barber MD [address] [place] [address] 03/15/2024 11:15 AM GAMING TABLE OPERATOR Office Visit [facility] [place] [address] [place] [address] Jim Tamez MD [address] [place] [address] 05/16/2024 1:15 AM CDT Allied Health/Nurse Visit [facility] [address] [place] [address] Mary Barber MD [address] [place] [address] [phone] 09/07/2024 9:00 AM CDT Office Visit [facility] [place] [address] [place] [address] Tiffany Badillo MD [address] [place] [address] documented as of this encounter Visit Diagnoses Not on filedocumented in this encounter Care Teams Furnace Setter Relationship Specialty Start Date End Date Qasim Garrett DO [address] [place] [address] PCP - General FAMILY PRACTICE 04/13/19 Mary Barber MD [address] [place] [address] EP Inspector Timers CLINICAL CARDIAC ELECTROPHYSIOLOGY 09/15/16 Tiffany Badillo MD [address] [place], [place] [address] Consulting Physician INTERVENTIONAL CARDIOLOGY 12/23/19 Erick Abdi MD [address] [place] [phone] Consulting Physician PAIN MANAGEMENT 09/06/20 documented as of this encounter
--- OUTSIDE RECORDS SUMMARY | 2024-01-27 07:30 | XMS_ITS | Encounter Summary ---
Author Organization [facility] Address [facility] [place] [address] [place] [address] Care Team Providers Care Digital Printer Operator Name Role Phone Mary Barber MD Unavailable Qasim Rolon DO Primary Care Provider [phone] Tiffany Badillo MD Unavailable [phone] Erick Abdi MD Unavailable [phone] Reason for Visit * Reason Comments Follow Up hypertension Encounter Details Date Type Department Care Team (Late st Contact Info) Description 02/26/2022 9:30 AM STAND GRINDER Office Visit [facility] [place] [id number] Radha [place], [facility]- [address] [place] [address] Follow Up (hypertension) Social History Tobacco Use Types Packs/Day Years [...] than three times a week 03/27/2019 Attends [employer] Services Not on file 03/27 Active Member of Clubs or Organizations Not on f ile 03/27/2019 Attends Club or Organization Meetings Never 03/27/2019 Marital Status 03/27/2019 [facility] Occupat ional Health - Occupational Stress [...] Coronavirus/COVID-19? No / Unsure 02/26/2022 9:25 AM STAND GRINDER documented as of this encounter Last Filed Vital Signs Vital Sign Reading Time Taken Comments Blood Pressure 119/68 02/26/2022 9:40 AM STAND GRINDER Pulse - - Temperature - - Respiratory Rate - - Oxygen Saturation - - Inhaled Oxygen Concentration - - Weight 82.2 kg (181 lb 3.2 oz) 02/26/2022 9:40 A M STAND GRINDER Height 160 cm (5' 3 ) 02/26/2022 9:40 AM STAND GRINDER Body Mass Index 32.1 02/26/2022 9:40 AM STAND GRINDER documented in this encounter Functional Status * [...] this encounter Progress Notes * Radha [place], ELISHA-BC - 02/26/2022 9:30 AM CST Chief Complaint: Follow Up (hypertension) HISTORY: Sera Shaffer is a 87-year-old female with past medical history of hypertension, hypercholesterolemia, atrial fibrillation post ablation and??Lariat??procedure, hemorrhagic stroke, saddle 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 She denies any new chest pain or shortness of breath issues. She does admit after mopping floors all day long in her home she did have some increased fatigue and was very tired the next day but again no shortness of breath or chest pain. Continuesto follow with Dr. Barber and recently underwent a device interrogation that showed she was sinus rhythm and no sustained atrial or ventricular arrhythmias and atrial paced 19% with BiV pacing at 99% of time. No further bleeding issues. RECOMMENDATIONS AND PLAN: Blood pressure and heart rate are controlled today Last labs on file from October 2020. Defer to PCP for lipids As previously stated follows Dr. Barber for atrial fibrillation and no atrial fibrillation noted on most recent device interrogation. On Eliquis per Dr. Barber's recommendations Follow up in 6 month(s) or sooner if any problems arise. PAST MEDICAL HISTORY: Past Medical History: Diagnosis Date ??? Arthritis ??? Atrial fibrillation (CMS/HCC) ??? CAD (coronary artery disease) ??? Hyperlipidemia ??? Hypertension ??? Hypothyroidism ??? ICB (intracranial bleed) (CMS/HCC) ??? Non-ischemic cardiomyopathy (CMS/HCC) ??? TIA (transient ischemic attack) Came in for possible TIA today ??? VT (ventricular tachycardia) Past Surgical History: Procedure Laterality Date ??? ABDOMINAL SURGERY 1981 stomach staple ??? ANKLE SURGERY Right 06/2019 ??? APPENDECTOMY ??? BRAIN SURGERY 2007 brain bleed, rodríguez hole ??? EYE SURGERY cataract ??? HC ICD BI VENTRICULAR GENERATOR 04/04/2013 s-p VT ablation ??? HYSTERECTOMY ??? JOINT REPLACEMENT ??? PACEMAKER 04/28/2006 DDD s-p AVJ ablation ??? XA LEFT ATRIAL APPENDAGE CLOSURE 10/19/2013 H/O ICB Allergies: Allergies Allergen Reactions ??? Penicillins Anaphylaxis ??? Oxycodone GI Upset ??? Vicodin [Hydrocodone-Acetaminophen] GI Upset MEDICATIONS: Prior to Admission medications Medication Sig Start Date End Date Taking? Authorizing Provider amiodarone 200 MG tablet Take 0.5 tablets (100 mg total) by mouth daily. 07/29/21 Mary Barber MD aspirin 81 MG tablet Take 81 mg by mouth daily. 04/29/06 [facility] ELIQUIS 5 MG tablet TAKE 1 TABLET BY MOUTH TWICE A DAY 01/27/22 Mary Barber MD ENTRESTO 24-26 MG tablet TAKE 1 TABLET BY MOUTH TWICE A DAY 10/23/21 Tiffany Badillo MD ferrous sulfate, 65 mg elemental, 325 (65 FE) MG tablet Take 325 mg by mouth daily with breakfast. [facility] furosemide (LASIX) 20 MG tablet Take 1 tablet (20 mg total) by mouth daily. 09/02/21 Tiffany Badillo MD levothyroxine 100 MCG tablet Take 100 mcg by mouth daily. 11/07/19 [facility] METOPROLOL SUCCINATE ER 50 MG 24 hr tablet TAKE 1 TABLET BY MOUTH EVERY DAY 06/03/21 Tiffany Badillo MD pantoprazole EC 40 MG tablet Take 40 mg by mouth daily. 12/13/19 [facility] pregabalin (LYRICA) 50 MG capsule Take 50 mg by mouth 2 (two) times daily. 02/11/22 GENERICPROVIDER, DEFAULT HISTORY probiotic Cap capsule Take 1 capsule by mouth daily. [facility] rosuvastatin (CRESTOR) 40 MG tablet Take 1 tablet (40 mg total) by mouth nightly at bedtime. 09/19/21 Tiffany Badillo MD spironolactone (ALDACTONE) 25 MG tablet TAKE 1/2 TABLET BY MOUTH EVERY DAY 01/10/22 Tiffany Badilol MD SOCIAL HISTORY: Social History Tobacco Use ??? Smoking status: Former Types: Cigarettes Quit date: 1972 Years since quittin.0 ??? Smokeless tobacco: Never Vaping Use ??? Vaping Use: Never used Substance Use Topics ??? Alcohol use: No ??? Drug use: No FAMILY HISTORY: Family History Problem Relation Name Age of Onset ??? NH Mother ??? NH Father ??? CABG Brother ??? Stent Brother ??? Stroke Paternal Grandfather ??? Heart Disease Other premature coronary heart disease [...] breath and snoring. Cardiovascular: See HPI. Gastrointestinal: Negative for blood in stool and melena. Genitourinary: Negative for dysuria. Musculoskeletal: Negative for myalgias and new or worsening joint stiffness/pain. Skin: Negative for rash. Neurological: Negative for tingling/numbness and focal weakness. Endo/Heme/Allergies: Negative for new or significant bruising/bleeding and polydipsia. Psychiatric/Behavioral: Negative for depression and new or significant memory loss. PHYSICAL EXAM: Filed Vitals: 02/26/22 0940 BP: 119/68 Weight: 82.2 kg (181 lb 3.2 oz) Height: 5' 3 (1.6 m) Body mass index is 32.1 kg/m??. Physical Exam Constitutional: No distress. HENT: [...] DATA: Lab Results Component Value Date NA 140 11/07/2020 K 3.9 11/07/2020 CL 108 (H) 11/07/2020 CO2 30.1 11/07/2020 AGAP 1.9 (L) 11/07/2020 BUN 20 (H) 11/07/2020 CR 1.03 (H) 11/07/2020 GFRNON 50 (L) 11/07/2020 GFR 57 (L) 11/07/2020 GLU 96 11/07/2020 CA 8.4 (L) 11/07/2020 Lab Results Component Value Date WBC 4.2 11/07/2020 HGB 10.0 (L) 11/07/2020 PLT 146 (L) 11/07/2020 Lab Results Component Value Date CHOL 120 02/07/2014 TRI 54 02/07/2014 HDL 51 02/07/2014 LDL 58 02/07/2014 TP 7.8 10/31/2020 ALB 3.2 (L) 10/31/2020 ALT 21 10/31/2020 TSH 1.66 10/13/2014 ?? Duplex venous ultrasound March 2019 Rt Lower Ext: Partial occlusion of the proximal popliteal and peroneal ?veins ??suggestive of acute deep venous thrombosis. Total ?occlusion ??of the distal popliteal and posterior tibial ?veins ??suggestive of acute deep venous thrombosis. Lt Lower Ext: No evidence of acute or chronic thrombosis noted in the ?deep ??or superficial veins in the left lower extremity. ?? Electrocardiogram March 2019: Ventricular pacemaker ?? Echocardiogram March 2019 The left ventricular size is normal. The left ventricular systolic function is mildly depressed. ??Estimated left ventricular ejection fraction is 45%. Left ventricular relaxation is impaired. The right ventricular size is moderately enlarged. ??Right ventricular systolic function is moderately depressed. The left atrial volume is moderately increased (42-48 ml/M2). The peak pulmonary artery systolic pressure is estimated to be 36 mmHg. Trace aortic regurgitation. Trace mitral regurgitation. ??Calcified posterior mitral annulus. Mild tricuspid regurgitation. ?? Nuclear stress test May 2019 Negative electrocardiographic portion of regadenoson stress test. Abnormal Perfusion Study. There is evidence of a small to medium area of moderate intensity fixed defect consistent with infarction in the apex and apical inferior wall. No myocardial ischemia. Left ventricular EF is 46 %. ?? Echocardiogram August 11, 2019 The left ventricular [...] annulus. Trace pulmonic regurgitation. Mild tricuspid regurgitation. ?? LE Venous??August 11, 2019 Rt Lower Ext: The external iliac, common femoral, sapheno-femoral junction, superficial epigastric,femoral, and popliteal veins show no evidence of venous thrombosis. Lt Lower Ext: The external iliac, common femoral, sapheno-femoral junction, superficial epigastric,femoral, and popliteal veins show no evidence of venous thrombosis. ?? Echocardiogram May 22, 2020 The left ventricular [...] valve. Mild pulmonic regurgitation. Mild tricuspid regurgitation. ?? VQ scan May 2020 Perfusion only study reveals near uniform distribution of activity bilaterally with no segmental defects. ??This is consistent with low probability for acute pulmonary embolism. Venous duplex ultrasound May 2020 Normal right lower extremity venous Doppler study. No DVT seen. ?? Echocardiogram September 03, 2020 The left ventricular [...] valve. Trace pulmonic regurgitation. Mild tricuspid regurgitation. ?? Atrial fibrillation October 2020 Echocardiogram February 2021 [...] 2021 ELECTRONIC VENTRICULAR PACEMAKER ABNORMAL RHYTHM ECG ?? DIAGNOSIS: 1. Primary hypertension Chronic 2. Paroxysmal atrial fibrillation (CMS/HCC) Chronic 3. Biventricular ICD (implantable cardioverter-defibrillator) in place Chronic 4. NICM (nonischemic cardiomyopathy) (CMS/HCC) Chronic ROSEMARIE ARECHIGA 34:27 PM Referring Provider: Qasim Rolon DO PCP: QASIM ROLON DO D GRINDER documented in this encounter Plan of Treatment Upcoming Encounters Date Type Department Care Team (Late st Contact Info) Description 02/15/2024 1:30 PM STAND GRINDER Office Visit [facility] [address] [place] [address] Tyrell Leiva PAHaylieC [address] [place] [phone] 02/15/2024 1:30 PM STAND GRINDER Allied Health/Nurse Visit [facility] [address] [place] [address] Mary Barber MD [address] [place] [address] 03/15/2024 11:15 AM STAND GRINDER Office Visit [facility] [address] [place] [address] Jim Tamez MD [address] [place] [address] 05/16/2024 1:15 AM CDT Allied Health/Nurse Visit [facility] [address] [place] [address] Mary Barber MD [address] [place] [address] 09/07/2024 9:00 AM CDT Office Visit [facility] [address] [place] [phone] Tiffany Badillo MD [address] [place] [address] documented as of this encounter Visit Diagnoses Diagnosis Primary hypertension- Primary Unspecified essential hypertension Paroxysmal atrial fibrillation (CMS/HCC HHS/HCC) Atrial fibrillation Biventricular ICD (implantable cardioverter-defibrillator) in place NICM (nonischemic cardiomyopathy) (CMS/HCC HHS/HCC) Other primary cardiomyopathies documented in this encounter Care Teams Digital Printer Operator Relationship Specialty Start Date End Date Qasim Rolon DO [address] [place] [address] PCP - General FAMILY PRACTICE 04/13/19 Mary Barber MD [address] [place] [address] EP Or Assistant CLINICAL CARDIAC ELECTROPHYSIOLOGY 09/15/16 Tiffany Badillo MD [address] [place] [address] Consulting Physician INTERVENTIONAL CARDIOLOGY 12/23/19 Erick Abdi MD [address] [address] Consulting Physician PAIN MANAGEMENT 09/06/20 documented as of this encounter
--- OUTSIDE RECORDS SUMMARY | 2024-01-27 07:31 | XMS_ITS | Encounter Summary ---
Author Organization [facility] Address [address] [facility] [place] [address] [place] [address] Care Team Providers Care Psych Nurse Name Role Phone Mary Barber MD Unavailable Hi Rolon DO Primary Care Provider Tiffany Badillo MD Unavailable [phone] Erick Abdi MD Unavailable [phone] Reason for Visit * Reason Comments Arrhythmia Atrial Flutter Encounter Details Date Type Department Care Team (Late st Contact Info) Description 02/20/2022 2:00 PM INDUSTRIAL MECHANIC Office Visit [facility] [address] [place] [address] Tyrell Leiva, PA-C [address] [place] [address] Arrhythmia; Atrial Flutter Social History Tobacco Use Types Packs/Day Years [...] Organization Meetings Never 03/27/2019 Marital Status 03/27/2019 [facility] - Occupational [...] Coronavirus/COVID-19? No / Unsure 02/20/2022 1:47 PM INDUSTRIAL MECHANIC documented as of this encounter Last Filed Vital Signs Vital Sign Reading Time Taken Comments Blood Pressure 90/70 02/20/2022 2:25 PM INDUSTRIAL MECHANIC Pulse 61 02/20/2022 2:25 PM INDUSTRIAL MECHANIC Temperature - - Respiratory Rate 18 02/20/2022 2:25 PM INDUSTRIAL MECHANIC Oxygen Saturation - - Inhaled Oxygen Concentration - - Weight 79.4 kg (175 lb) 02/20/2022 2:25 PM INDUSTRIAL MECHANIC Height 162.6 cm (5' 4 ) 02/20/2022 2:25 PM INDUSTRIAL MECHANIC Body Mass Index 30.04 02/20/2022 2:25 PM INDUSTRIAL MECHANIC documented in this encounter Functional Status * [...] Hayes RN Active documented in this encounter Patient Instructions * Patient Instructions* Tyrell Leiva PA-C - 02/20/2022 2:00 PM INDUSTRIAL MECHANIC Continue amiodarone. Check your labs and x-ray. I will let you know these results. Continue your blood thinner. Call me if you have any questions. We will give you a call to see us again in 1 year. STRIAL MECHANIC documented in this encounter Progress Notes * Tyrell Leiva PA-C - 02/20/2022 2:00 PM CST Images from the original note were not included. Cardiac Electrophysiology Clinic Note PATIENT NAME: Rakan Shaw : 1935 REFERRING PROVIDER: No ref. provider found PCP: HI ROLON DO Reason for Visit A. fib History of Present Illness Ms. Shaw is a very pleasant,??87-year-old??female??with a history of paroxysmal atrial fibrillation with rapid ventricular response, refractory??to??medical therapy.??She??underwent ablation of the AV node and implantation of a dual-chamber [employer] pacemaker in April 2006. She used to be on Coumadin for stroke prevention; however, this was stopped in 2007 due to a subdural hematoma requiring evacuation. The patient developed severe nonischemic cardiomyopathy, likely induced by right ventricular pacing, prompting upgrade of the pacemaker to a biventricular [employer] ICD in March 2013. ?? Due to??intolerance to Coumadin therapy secondary to??intracranial bleeding, the patient underwent percutaneous ligation of the left atrial appendage using a Lariat device on 10/19/2013.? In January 2019, she fell and injured her ankle requiring surgery. Several days after surgery, shedeveloped DVT and saddle pulmonary embolism. She was started on Eliquis. Dose of Eliquis was later reduced to 2.5 mg PO BID. ?? Atrial fibrillation recurred in Aprilnd became persistent and symptomatic despite adequate rate control. Electrical cardioversion was??performed and the patient was started on Amiodarone therapy. ??However,??atrial fibrillation recurred??and persisted. Therefore, on 11/06/2020, the patient underwent catheter??ablation of atrial fibrillation.??The patient remained free of atrial arrhythmias since then, and Amiodarone was stopped in February 2021. However, infrequent episodes of atrial fibrillation were recently observed, prompting reinitiation of Amiodarone. She presents clinic today for follow-up. Her daughter is present with her. She has been doing well since we saw her last. She remains active and independent for an 87-year-old. No complaints of chestpain, palpitations, shortness of breath, dizziness, lightheadedness, presyncope or syncope. She is very compliant with all of her medicines including her amiodarone 100 mg p.o. daily and Eliquis 5 mgp.o. twice daily. ECG Sinus rhythm biventricular pacing rate 62 bpm. Device Interrogation We interrogated the device today and that showed a [employer] biventricular ICD with good battery voltage and satisfactory pacing and sensing thresholds. Underlying rhythm was sinus rhythm. No sustained atrial or ventricular arrhythmias have been observed. Atrial paced 19% of the time biventricular paced 99% of the time. Diagnosis 1.??Recurrent??persistent,??atrial fibrillation, refractory to Amiodarone. S/P Catheter ablation on11/06/2020. Infrequent short episodes of paroxysmal atrial fibrillation have been observed, and the patient is currently on Amiodarone 100 mg daily. 2. S/P Ablation of the AV node and implantation of a dual-chamber [employer] pacemaker in April 2006.??S/P Upgrade to a [employer] biventricular ICD in March 2013. Normal device function in clinic today. 3. Chronic anticoagulation with Eliquis for DVT/PE. Intolerance to Coumadin due to subdural hematoma, requiring evacuation in June 2007. 4. S/P Percutaneous ligation of left atrial appendage using LARIAT device on 10/19/2013. 5. Severe nonischemic cardiomyopathy with ejection fraction of 34%??in the past, likely induced by right ventricular pacing.?Ejection fraction was??35%??with repeat LVEF 40-45% February 2021. 6. Premature ventricular contractions.?Holter monitor in the past revealed rare PVCs. 7. 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 8. Hypothyroidism. 9. Hypertension.?? 10. No known history of coronary artery disease, diabetes, or stroke. Recommendations 1. Continue remote device interrogations as scheduled. 2. Continue amiodarone 100 mg p.o. daily for suppression of atrial fibrillation. The patient wishesto continue amiodarone for suppression of atrial tachycardia. 3. Continue Eliquis 5 mg p.o. twice daily for stroke prevention. 4. Follow-up in clinic with device interrogation with amiodarone surveillance in 1 year or sooner if needed. I spent 35 minutes today reviewing the patient's medical record, obtaining history, performing an exam, documenting in the medical record, referring and/or communicating with other health care providers, counseling and educating the patient and family , reviewing and communicating test results and coordinating care. Medications Current Outpatient Medications: ??? amiodarone 200 MG tablet, Take 0.5 tablets (100 mg total) by mouth daily., Disp: 45 tablet, Rfl: 1 ??? aspirin 81 MG tablet, Take 81 mg by mouth daily. , Disp: , Rfl: ??? ELIQUIS 5 MG tablet, TAKE 1 TABLET BY MOUTH TWICE A DAY, Disp: 60 tablet, Rfl: 3 ??? ENTRESTO 24-26 MG tablet, TAKE 1 TABLET BY MOUTH TWICE A DAY, Disp: 60 tablet, Rfl: 9 ??? ferrous sulfate, 65 mg elemental, 325 (65 FE) MG tablet, Take 325 mg by mouth daily with breakfast., Disp: , Rfl: ??? furosemide (LASIX) 20 MG tablet, Take 1 tablet (20 mg total) by mouth daily., Disp: 90 tablet, Rfl: 2 ??? levothyroxine 100 MCG tablet, Take 100 mcg by mouth daily., Disp: , Rfl: ??? METOPROLOL SUCCINATE ER 50 MG 24 hr tablet, TAKE 1 TABLET BY MOUTH EVERY DAY, Disp: 90 tablet, Rfl: 3 ??? pantoprazole EC 40 MG tablet, Take 40 mg by mouth daily. , Disp: , Rfl: ??? pregabalin 25 MG capsule, Take 1 capsule by mouth 2 (two) times a day., Disp: , Rfl: ??? probiotic Cap capsule, Take 1 capsule by mouth daily., Disp: , Rfl: ??? rosuvastatin (CRESTOR) 40 MG tablet, Take 1 tablet (40 mg total) by mouth nightly at bedtime., Disp: 90 tablet, Rfl: 1 ??? spironolactone (ALDACTONE) 25 MG tablet, TAKE 1/2 TABLET BY MOUTH EVERY DAY, Disp: 45 tablet, Rfl: 1 Allergies Allergies Allergen Reactions ??? Penicillins Anaphylaxis ??? Oxycodone GI Upset ??? Vicodin [Hydrocodone-Acetaminophen] GI Upset Past History Past Medical History: Diagnosis Date ??? Arthritis ??? Atrial fibrillation (CMS/HCC) ??? CAD (coronary artery disease) ??? Hyperlipidemia ??? Hypertension ??? Hypothyroidism ??? ICB (intracranial bleed) (CMS/HCC) ??? Non-ischemic cardiomyopathy (CMS/HCC) ??? TIA (transient ischemic attack) Came in for possible TIA today ??? VT (ventricular tachycardia) (CMS/HCC) Past Surgical History: Procedure Laterality Date ??? [...] 10/19/2013 H/O ICB Social History Tobacco Use ??? Smoking status: Former Types: Cigarettes Quit date: 1972 Years since quittin.0 ??? Smokeless tobacco: Never Vaping Use ??? Vaping Use: Never used Substance Use Topics ??? Alcohol use: No ??? Drug use: No Family History Problem Relation Name Age of Onset ??? [place] Mother ??? [place] Father ??? CABG Brother ??? Stent Brother [...] The patient is not nervous/anxious. Physical Examination There were no vitals filed for this visit. Physical Exam Constitutional: General: She is not [...] Behavior normal. Thought Content: Thought content normal. IMARY MD, performed a Consultation and History & Physical examination of the patient and discussed the management with the Advanced Practice Provider (BONNIE). I reviewed the BONNIE's note and agree with the findings and plan of care, except as I have documented. Plan of care developed under my direct supervision. Signed TYRELL LEIVA PA-C 02/20/2022 STRIAL MECHANIC documented in this encounter Plan of Treatment Upcoming Encounters Date Type Department Care Team (Late st Contact Info) Description 02/15/2024 1:30 PM INDUSTRIAL MECHANIC Office Visit [facility] [address] [place] [address] Tyrell Leiva PA-C [address] [place] [address] 02/15/2024 1:30 PM INDUSTRIAL MECHANIC Allied Health/Nurse Visit [facility] [address] [place] [address] Mary Barber MD [address] [place] [address] 03/15/2024 11:15 AM INDUSTRIAL MECHANIC Office Visit [facility] [place] [address] Jim Tamez MD [address] [place] [address] 05/16/2024 1:15 AM CDT Allied Health/Nurse Visit [facility] [address] [place] [address] Mary Barber MD [address] [place] [address] 09/07/2024 9:00 AM CDT Office Visit [facility] [place] [address] Tiffany Badillo MD [address] [place] [address] documented as of this encounter Procedures Procedure Name Priority Date/Time Associated Diagnosis Comments ELECTROCARDIOGRAM (NON MIDMARK ACQUIRED) Routine 02/20/2022 2:30 PM INDUSTRIAL MECHANIC Paroxysmal atrial fibrillation (CMS/HCC HHS/HCC) documented in this encounter Results * ELECTROCARDIOGRAM (02/20/2022 2:30 PM INDUSTRIAL MECHANIC) 02/20/2022 2:30 PM INDUSTRIAL MECHANIC Narrative [facility] - 02/26/2022 1:31 PM INDUSTRIAL MECHANIC ? [facility] ?[address] [place], [place] ??[address] ? Test Date: ?2022-02-20 Pat Name: ? RAKAN SHAW ?Department: ?? 105 ? Room: ? Gender: ? Female ? Licensed Marine Engineer: ?? avril BAUTISTAB: ?1935 ? Requested By: TYRELL LEIVA Order Number: [id number] ?Cee CORDERO: ?? Micheal Carrera ? Measurements Intervals ?[place] ? Rate: ? 62 ? P: ?78 AL: ? 163 ?QRS: ?124 QRSD: ? 133 ?T: ?9 QT: ? 466 ? QTc: ?474 ? Interpretive Statements ELECTRONIC VENTRICULAR PACEMAKER ABNORMAL RHYTHM ECG STRIAL MECHANIC Procedure Note Micheal Carrera MD - 02/26/2022 [facility] [address] [place] [address] Test Date: 2022-02-20 Pat Name: RAKAN SHAW Department: 105 Room: Gender: Female Licensed Marine Engineer: avril : 1935 Requested By: TYRELL LEIVA Order Number: [id number] Reading MD: Micheal Carrera Measurements Intervals [place] Rate: 62 P: 78 AL: 163 QRS: 124 QRSD: 133 T: 9 QT: 466 QTc: 474 Interpretive Statements ELECTRONIC VENTRICULAR PACEMAKER ABNORMAL RHYTHM ECG STRIAL MECHANIC Tyrell Leiva PA-C PROCEDURES-ORDERABLE NO CH ARGE Final Result [facility] documented in this encounter Visit Diagnoses Diagnosis Paroxysmal atrial fibrillation (CMS/HCC HHS/HCC)- 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
--- OUTSIDE RECORDS SUMMARY | 2024-01-27 07:32 | XMS_ITS | Encounter Summary ---
Author Organization [facility] Address [address] [facility] [place] [address] [place] [address] Care Team Providers Care Restoration Officer Name Role Phone Mary Barber MD Unavailable Qasim Garrett DO Primary Care Provider [phone] Tiffany Badillo MD Unavailable [phone] Erick Abdi MD Unavailable [phone] Reason for Visit * Reason Onset Date Comments Anticoagulation 12/04/2021 Encounter Details Date Type Department Care Team (Late st Contact Info) Description 12/04/2021 Telephone [facility] [address] [place] [address] Mary Barber MD [address] [place] [address] Anticoagulation Social History Tobacco Use Types Packs/Day Years [...] than three times a week 03/27/2019 Attends [employer] Services Not on file 03/27 Active Member of Clubs or Organizations Not on f ile 03/27/2019 Attends Club or Organization Meetings Never 03/27/2019 Marital Status 03/27/2019 [facility] [...] documented in this encounter Progress Notes * Rosa Medel LPN - 12/04/2021 6:56 AM CDT Fax received from [facility] (Ralph Zepeda DDS) asking if patient is needing to hold Eliquis prior to a mini denture implant. OAC holding guideline letter faxed to [phone]. documented in this encounter Plan of Treatment Upcoming Encounters Date Type Department Care Team (Late st Contact Info) Description 02/15/2024 1:30 PM MUD PLANT OPERATOR Office Visit [facility] [address] [place] [address] Tyrell Leiva, PA-C [address] [place] [address] 02/15/2024 1:30 PM MUD PLANT OPERATOR Allied Health/Nurse Visit [facility] [address] [place] [address] [phone] Mary Barber MD [address] [place] [address] [phone] 03/15/2024 11:15 AM MUD PLANT OPERATOR Office Visit [facility] [place] [address] Jim Tamez MD [address] [place] [address] 05/16/2024 1:15 AM CDT Allied Health/Nurse Visit [facility] [address] [place] [address] Mary Barber MD [address] [place] [address] 09/07/2024 9:00 AM CDT Office Visit [facility] [place] [address] Tiffany Badillo MD [address] [place] [address] documented as of this encounter Visit Diagnoses Not on filedocumented in this encounter Care Teams Restoration Officer Relationship Specialty Start Date End Date Qasim Garrett DO [address] [place] [address] PCP - General FAMILY PRACTICE 04/13/19 Mary Barber MD [address] [place] [address] EP Turret Lathe Set Up Operator CLINICAL CARDIAC ELECTROPHYSIOLOGY 09/15/16 Tiffany Badillo MD [address] [place] [address] Consulting Physician INTERVENTIONAL CARDIOLOGY 12/23/19 Erick Abdi MD [address] [place] [address] Consulting Physician PAIN MANAGEMENT 09/06/20 documented as of this encounter
--- OUTSIDE RECORDS SUMMARY | 2024-01-27 07:32 | XMS_ITS | Encounter Summary ---
Author Organization [facility] Address [address] [facility] [place] [address] [place] [address] Care Team Providers Care Farm Machine Operator Name Role Phone Mary Barber MD Unavailable Qasim Garrett DO Primary Care Provider [phone] Tiffany Badillo MD Unavailable [phone] Erick Abdi MD Unavailable [phone] Encounter Details Date Type Department Care Team (Latest Contact Info) Description 08/28/2021 Travel Social History Tobacco Use Types Packs/Day [...] Organization Meetings Never 03/27/2019 Marital Status 03/27/2019 [facility] Occup[facility] ional Health - Occupational Stress [...] suspected to have Coronavirus/COVID-19? No / Unsure 08/28/2021 8:21 AM CDT documented as of this encounter Functional Status [...] Upcoming Encounters Date Type Department Care Team ([facility]) Description 02/15/2024 1:30 PM ASSOCIATE BROKER Office Visit [facility] [address] [place] [address] Tyrell Leiva PAHaylieC [address] [place] [address] 02/15/2024 1:30 PM ASSOCIATE BROKER Allied Health/Nurse Visit [facility] [address] [place] [address] Mary Barber MD [address] [place] [address] 03/15/2024 11:15 AM ASSOCIATE BROKER Office Visit [facility] [place] [address] [place] [address] Jim Tamez MD [address] [place] [address] 05/16/2024 1:15 AM CDT Allied Health/Nurse Visit [facility] [address] [place] [address] Mary Barber MD [address] [place] [address] 09/07/2024 9:00 AM CDT Office Visit [facility] [place] [address] [place] [address] Tiffany Badillo MD [address] [place] [address] documented as of this encounter Visit Diagnoses Not on filedocumented in this encounter Care Teams Farm Machine Operator Relationship Specialty Start Date End Date Qasim Garrett DO [address] [place] [address] PCP - General FAMILY PRACTICE 04/13/19 Mary Barber MD [address] [place] [phone] EP Shuttle Fixer CLINICAL CARDIAC ELECTROPHYSIOLOGY 09/15/16 Tiffany Badillo MD [address] [place], [place] [address] Consulting Physician INTERVENTIONAL CARDIOLOGY 12/23/19 Erick Abdi MD [address] [place] [phone] Consulting Physician PAIN MANAGEMENT 09/06/20 documented as of this encounter
--- OUTSIDE RECORDS SUMMARY | 2024-01-27 07:32 | XMS_ITS | Encounter Summary ---
Author Organization [facility] Address Pending sale to [facility] [place] [address] [place] [address] Care Team Providers Care Conveyor Monitor Name Role Phone Mary Barber MD Unavailable Qasim Rolon DO Primary Care Provider [phone] Tiffany Badillo MD Unavailable [phone] Erick Abdi MD Unavailable [phone] Reason for Visit * Reason Comments Follow Up cardiomyopathy Encounter Details Date Type Department Care Team (Late st Contact Info) Description 08/28/2021 8:30 AM CDT Office Visit [facility] [place] [phone] Radha Hamilton, [facility] [address] [employer] [place] [address] Follow Up (cardiomyopathy) Social History Tobacco Use Types Packs/Day Years [...] Organization Meetings Never 03/27/2019 Marital Status 03/27/2019 [facility] [place] of Occupat ional Health - Occupational Stress [...] AM CDT documented as of this encounter Last Filed Vital Signs Vital Sign Reading Time Taken Comments Blood Pressure 104/75 08/28/2021 8:39 AM CDT Pulse 73 08/28/2021 8:39 AM CDT Temperature - - Respiratory Rate 20 08/28/2021 8:39 AM CDT Oxygen Saturation 97% 08/28/2021 8:39 AM CDT room air Inhaled Oxygen Concentration - - Weight 80.6 kg (177 lb 9.6 oz) 08/28/2021 8:39 A M CDT Height 160 cm (5' 3 ) 08/28/2021 8:39 AM CDT Body Mass Index 31.46 08/28/2021 8:39 AM CDT documented in this encounter Functional [...] Progress Notes * Radha Hamilton, ANP-BC - 08/28/2021 8:30 AM CDT Chief Complaint: Follow Up (cardiomyopathy) HISTORY: Sera Shaffer is a 86-year-old female with past medical history of hypertension, hypercholesterolemia, atrial fibrillation post ablation and??Lariat??procedure, hemorrhagic stroke, saddle 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 She is accompanied by her daughter today. She reports not feeling well and losing approximately 1 pound per day. She follows Dr. Barber for her atrial fibrillation and device. Underlying rhythm was NSR with AV block. AFL and AF were observed, with max duration of 49 minutes and total burden of <1%. No sustained ventricular arrhythmias have beenobserved from Dr. Villa last month. She did go to the ER in [place] and was told her hemoglobin was 9. Has any obvious bleeding. She followed up with Dr. Cort[facility] who did an esophageal dilation on her and then saw her PCP. She had a repeat hemoglobin and stated was 10.3 mg/dL and was placed on iron supplementation. She continues to be quite fatigued easily and had to stop 3 times while walking in from the parking lot here at the hospital. She denies any associated shortness of breath or chest pain, swelling or weight gain, or any palpitations. She remains on Eliquis per Dr. Barber's recommendations. RECOMMENDATIONS AND PLAN: Would continue with current medications. Per EP recommendations she is to remain on Eliquis. She isnot had any further GI bleeding since this was resumed. Her weight has been stable. Would continue to follow-up with her PCP regarding anemia. Blood pressure and heart rate are controlled today Weight is stable Follow up in 6 month(s) or sooner [...] (100 mg total) by mouth daily. 07/29/21 Yes Mary Barber MD aspirin 81 MG tablet Take 81 mg by mouth daily. 04/29/06 Yes Doc Abstract ELIQUIS 5 MG tablet TAKE 1 TABLET BY MOUTH TWICE A DAY 05/07/21 Yes Mary Barber MD ferrous sulfate, 65 mg elemental, 325 (65 FE) MG tablet Take 325 mg by mouth daily with breakfast. Yes Doc Abstract FUROSEMIDE 20 MG tablet TAKE 1 TABLET BY MOUTH EVERY DAY Patient taking differently: Take 20 mg by mouth daily. 08/14/20 Yes Tiffany Badillo MD levothyroxine 100 MCG tablet Take 100 mcg by mouth daily. 11/07/19 Yes Doc Abstract METOPROLOL SUCCINATE ER 50 MG 24 hr tablet TAKE 1 TABLET BY MOUTH EVERY DAY 06/03/21 Yes Tiffany Badillo MD pantoprazole EC 40 MG tablet Take 40 mg by mouth daily. 12/13/19 Yes Doc Abstract pregabalin 25 MG capsule Take 1 capsule by mouth 2 (two) times a day. 07/03/21 Yes Doc Abstract probiotic Cap capsule Take 1 capsule by mouth daily. Yes Doc Abstract ROSUVASTATIN 40 MG tablet TAKE 1 TABLET AT BEDTIME Patient taking differently: Take 40 mg by mouth nightly at bedtime. 10/01/20 Yes Tiffany Badillo MD sacubitril-valsartan (ENTRESTO) 24-26 MG tablet Take 1 tablet by mouth 2 (two) times daily. 11/20/20 Yes Tiffany Badillo MD spironolactone 25 MG tablet Take 0.5 tablets (12.5 mg total) by mouth daily. 07/29/21 Yes Tiffany Badillo MD SOCIAL HISTORY: Social History Tobacco Use ??? Smoking status: Former Smoker Types: Cigarettes Quit date: 1972 Years since quittin.5 ??? Smokeless tobacco: Never Used Vaping Use ??? Vaping Use: Never used Substance Use Topics ??? Alcohol use: No ??? Drug use: No FAMILY HISTORY: Family History Problem Relation Name Age of Onset ??? AL Mother ??? AL Father ??? CABG Brother ??? Stent Brother [...] significant memory loss. PHYSICAL EXAM: Filed Vitals: 08/28/21 0839 BP: 104/75 Pulse: 73 Resp: 20 SpO2: 97% Weight: 80.6 kg (177 lb 9.6 oz) Height: 5' 3 (1.6 m) Body mass index is 31.46 kg/m??. Physical Exam Constitutional: No distress. HENT: [...] Oriented x 3. Appropriate mood and affect. Intact cranial nerves. Normal motorskills. Normal gait. Skin: Dry. Warm. No cyanosis. [...] Normal heart sounds. Normal S1 and Normal S2 No gallop. No S3 sound. No S4 sound and No murmur. Cardiovascular Comments: LABORATORY DATA: Lab Results [...] ?? DIAGNOSIS: 1. Primary hypertension Chronic 2. Mixed hyperlipidemia Chronic 3. Paroxysmal atrial fibrillation (CMS/HCC) Chronic 4. NICM (nonischemic cardiomyopathy) (CMS/HCC) Chronic 5. Chronic right-sided congestive heart failure (CMS/HCC) Chronic ROSEMARIE ARECHIGA 2:25 PM Referring Provider: Qasim Rolon DO PCP: QASIM ROLON DO documented in this encounter Plan of Treatment Upcoming Encounters Date Type Department Care Team (Late st Contact Info) Description 02/15/2024 1:30 PM LOCK MAINTENANCE SUPERVISOR Office Visit [facility] [address] [place] [address] Tyrell Leiva PA-C [address] [place] [address] 02/15/2024 1:30 PM LOCK MAINTENANCE SUPERVISOR Allied Health/Nurse Visit [facility] [address] [place] [address] Mary Barber MD [address] [place] [address] 03/15/2024 11:15 AM LOCK MAINTENANCE SUPERVISOR Office Visit [facility] [place] [address] Jim Tamez MD [address] [place], [place] [address] 05/16/2024 1:15 AM CDT [facility] [address] [place] [address] Mary Barber MD [address] [place] [address] 09/07/2024 9:00 AM CDT Office Visit [facility] [place] [address] Tiffany Badillo MD [address] [place], [place] [address] documented as of this encounter Visit Diagnoses Diagnosis Primary hypertension- Primary Unspecified essential hypertension Mixed hyperlipidemia Paroxysmal atrial fibrillation (CMS/HCC HHS/HCC) Atrial fibrillation NICM (nonischemic cardiomyopathy) ([facility] HHS/HCC) Other primary cardiomyopathies Chronic right-sided congestive heart failure ([facility] HHS/HCC) Congestive heart failure, unspecified documented in this encounter Care Teams Conveyor Monitor Relationship Specialty Start Date End Date Qasim Rolon DO [address] [place] [address] PCP - General FAMILY PRACTICE 04/13/19 Mary Barber MD [address] [place] [address] EP Drone Software Development Engineer CLINICAL CARDIAC ELECTROPHYSIOLOGY 09/15/16 Tiffany Badillo MD [address] [place], [place] [address] Consulting Physician INTERVENTIONAL CARDIOLOGY 12/23/19 Erick Abdi MD [address] [address] Consulting Physician PAIN MANAGEMENT 09/06/20 documented as of this encounter
--- OUTSIDE RECORDS SUMMARY | 2024-01-27 07:32 | XMS_ITS | Encounter Summary ---
Author Organization [facility] Address [address] [place] [address] [place] [address] Care Team Providers Care Acute Care Registered Nurse Name Role Phone Mary Barber MD Unavailable Qasim Garrett DO Primary Care Provider [phone] Tiffany Badillo MD Unavailable [phone] Erick Abdi MD Unavailable [phone] Encounter Details Date Type Department Care Team (Late st Contact Info) Description 11/04/2021 8:30 AM CDT Allied Health/Nurse Visit [facility] [address] [place] [address] Mary Barber MD [address] [place] [address] Social History Tobacco Use Types Packs/Day Years [...] than three times a week 03/27/2019 Attends Sabianist Services Not on file 03/27 Active Member of Clubs or Organizations Not on f ile 03/27/2019 Attends Club or Organization Meetings Never 03/27/2019 Marital Status 03/27/2019 [facility] - Occupational Stress Questionnaire [...] Progress Notes * Dianna Marshall RN - 11/04/2021 8:30 AM CDT Images from the original note were not included. ICD REMOTE INTERROGATION NAME: Sera Shaffer : 1935 CSN: [id number] DATE OF INTERROGATION: 11/04/2021 FOLLOW UP E.P PHYSICIAN: Dr Mary Barber DEVICE SPECIFICATIONS DEVICE SENIOR C SOFTWARE ENGINEER [place] DEVICE TYPE BIV ICD EST. BATTERY LIFE OR CURRENT VOLTAGE/ROSALIND VOLTAGE 1.5 y LEAD IMPEDENCE TRENDS OK ATRIAL PACING % 17% RV PACING % 99% BIV/LVP PACING % 99% COMMENTS ATRIAL ARRHYTHMIAS AF BURDEN <0.1 % LONGEST EPISODE < 1 min ORAL ANTICOAGULATION Eliquis/Apixaban and ASA COMMENTS VENTRICULAR ARRHYTHMIAS NSVT EPISODE(S) 1 VT EPISODE(S) 0 FVT EPISODE(S) 0 VF EPISODE(S) 0 COMMENTS ALERTS / NURSE COMMENTS ??? SEE ATTACHED PDF FOR VENDOR PRINTOUTS (PRESENTING, HISTOGRAMS, EGM???S) ??? Normal device function ??? PHYSICIAN COMMENTS (IF ANY) ??? Cosigned by Mary Barber MD at 11/13/2021 9:18 AM CDT documented in this encounter Plan of Treatment Upcoming Encounters Date Type Department Care Team (Late st Contact Info) Description 02/15/2024 1:30 PM GAME ENGINEER Office Visit [facility] [address] [place] [phone] Tyrell Leiva PA-C [address] [place] [address] 02/15/2024 1:30 PM GAME ENGINEER Allied Health/Nurse Visit [facility] [address] [place] [address] Mary Barber MD [address] [place] [address] 03/15/2024 11:15 AM GAME ENGINEER Office Visit [facility] [address] [place] [address] Jim Tamez MD [address] [place] [address] 05/16/2024 1:15 AM CDT Allied Health/Nurse Visit [facility] [address] [place] [address] Mary Barber MD [address] [place] [address] [phone] 09/07/2024 9:00 AM CDT Office Visit [address] [place] [address] Tiffany Badillo MD [address] [place] [address] documented as of this encounter Visit Diagnoses Diagnosis VT (ventricular tachycardia) Paroxysmal ventricular tachycardia documented in this encounter Care Teams Acute Care Registered Nurse Relationship Specialty Start Date End Date Qasim Garrett DO [address] [place] [address] PCP - General FAMILY PRACTICE 04/13/19 Mary Barber MD [address] [place] [address] EP Supervisor Blood CLINICAL CARDIAC ELECTROPHYSIOLOGY 09/15/16 Tiffany Badillo MD [address] [place] [address] Consulting Physician INTERVENTIONAL CARDIOLOGY 12/23/19 Erick Abdi MD [address] [phone] Consulting Physician PAIN MANAGEMENT 09/06/20 documented as of this encounter
--- OUTSIDE RECORDS SUMMARY | 2024-01-27 07:32 | XMS_ITS | Encounter Summary ---
Author Organization [facility] Address [address] [place] [address] [place] [address] Care Team Providers Care Joinery Setter Out Name Role Phone Mary Barber MD Unavailable Qasim Garrett DO Primary Care Provider [phone] Tiffany Badillo MD Unavailable [phone] Erick Abdi MD Unavailable [phone] Reason for Visit * Reason Onset Date Comments Appointment Reminder 02/18/2022 Encounter Details Date Type Department Care Team ([facility] st Contact Info) Description 02/18/2022 [facility] [address] [place] [address] Mary Barber MD [address] [place] [address] Appointment Reminder Social History Tobacco Use Types [...] Organization Meetings Never 03/27/2019 Marital Status 03/27/2019 [facility] of Occupat ional Health - Occupational [...] Pop, RN Active documented in this encounter Progress Notes * Ez Roe MA - 02/18/2022 10:20 AM CST Pt called in due to confusion on arrival time for 02/20/22 appt with Edgardo Leiva PA-C and [facility] Device. Appt notes state scheduled 1:30 PM [facility] but was in [facility] for this time. Appt changed to 2:00 PM in [facility] to correspond appropriately. Pt instructed to arrive at 1:45 PM on 02/20/22 at [facility] 5th floor. Notes for both appts updated. Pt v/u and had no further questions. RIALS MGMT TECH documented in this encounter Plan of Treatment Upcoming Encounters Date Type Department Care Team (Late st Contact Info) Description 02/15/2024 1:30 PM MATERIALS MGMT TECH Office Visit [facility] ld [address] [place] [address] Tyrell Leiav PA-C [address] [place] [address] 02/15/2024 1:30 PM MATERIALS MGMT TECH Allied Health/Nurse Visit [facility] ld [address] [place] [address] Mary Barber MD [address] [place] [address] 03/15/2024 11:15 AM MATERIALS MGMT TECH Office Visit [facility] [place] [address] Jim Tamez MD [address] [place], [place] [address] 05/16/2024 1:15 AM CDT [facility] [address] [place] [address] Mary Barber MD [address] [place] [address] 09/07/2024 9:00 AM CDT Office Visit [facility] [place] [address] Tiffany Badillo MD [address] [place], [place] [phone] documented as of this encounter Visit Diagnoses Not on filedocumented in this encounter Care Teams Joinery Setter Out Relationship Specialty Start Date End Date Qasim Garrett DO [address] [place] [address] PCP - General FAMILY PRACTICE 04/13/19 Mary Barber MD [address] [place] [phone] EP Manager Packaging CLINICAL CARDIAC ELECTROPHYSIOLOGY 09/15/16 Tiffany Badillo MD [address] [place] [address] Consulting Physician INTERVENTIONAL CARDIOLOGY 12/23/19 Erick Abdi MD [address] [place] [address] Consulting Physician PAIN MANAGEMENT 09/06/20 documented as of this encounter
--- OUTSIDE RECORDS SUMMARY | 2024-01-27 07:33 | XMS_ITS | Encounter Summary ---
Author Organization [facility] Address [address] [facility] [place] [address] [place] [address] Care Team Providers Care Membership Coordinator Name Role Phone Mary Barber MD Unavailable Qasim Garrett DO Primary Care Provider [phone] Tiffany Badillo MD Unavailable [phone] Erick Abdi MD Unavailable [phone] Reason for Visit * Reason Onset Date Comments Anticoagulation 07/31/2021 EGD scheduled fo r 08/06/2021 Encounter Details Date Type Department Care Team (Late st Contact Info) Description 07/31/2021 Telephone [facility] [address] [place] [address] Mary Barber MD [address] [place] [address] Anticoagulation (EGD scheduled for 08/06/2021) Social History Tobacco Use Types Packs/Day Years [...] than three times a week 03/27/2019 Attends Adventism Services Not on file 03/27 Active Member [...] suspected to have Coronavirus/COVID-19? No / Unsure 07/29/2021 9:34 AM CDT documented as of this encounter [...] encounter Progress Notes * Triny Rader - 08/01/2021 11:23 AM CDT Perioperative Management worksheet signed by Dr Barber and scanned into the patients chart. Perioperative Management worksheet faxed to [facility] at #[phone]. * Dianna Marshall RN - 08/01/2021 8:57 AM CDT periop worksheet initiated by device clinic and taken to Dr Barber's office for completion Fax completed worksheet to * Rosa Medel LPN - 07/31/2021 3:31 PM CDT Fax received from [facility] requested holding guideline for Eliquis prior to urgent EGD that is scheduled for 08/06/2021. Letter with OAC guideline faxed with last office note, EKG and echo. documented in this encounter Plan of Treatment Upcoming Encounters Date Type Department Care Team (Late st Contact Info) Description 02/15/2024 1:30 PM ADVANCED MANAGER [facility] [address] [place] [address] Tyrell Leiva PA-C [address] [place] [address] 02/15/2024 1:30 PM ADVANCED MANAGER Allied Health/Nurse Visit [facility] ld [address] [place] [address] [phone] Mary Barber MD [address] [place] [address] 03/15/2024 11:15 AM ADVANCED MANAGER [facility] [place] [address] [place] [address] Jim Tamez MD [address] [place] [address] 05/16/2024 1:15 AM CDT Allied Health/Nurse Visit [facility] ld [address] [place] [address] Mary Barber MD [address] [place] [address] 09/07/2024 9:00 AM CDT [facility] [place] [address] [place] [address] Tiffany Badillo MD [address] [place] [address] documented as of this encounter Visit Diagnoses Not on filedocumented in this encounter Care Teams Membership Coordinator Relationship Specialty Start Date End Date Qasim Garrett DO [address] [place] [address] PCP - General FAMILY PRACTICE 04/13/19 Mayr Barber MD [address] [place] [address] EP Lube Technician CLINICAL CARDIAC ELECTROPHYSIOLOGY 09/15/16 Tiffany Badillo MD [address] [place] [address] Consulting Physician INTERVENTIONAL CARDIOLOGY 12/23/19 Erick Abdi MD [address] [place] [address] Consulting Physician PAIN MANAGEMENT 09/06/20 documented as of this encounter
--- OUTSIDE RECORDS SUMMARY | 2024-01-27 07:33 | XMS_ITS | Encounter Summary ---
Author Organization [facility] Address [address] [facility] [place] [address] [place] [address] Care Team Providers Care Director Of Integrated Marketing Name Role Phone Mary Christianson MD Unavailable Qasim Garrett DO Primary Care Provider [phone] Tiffany Badillo MD Unavailable [phone] Erick Abdi MD Unavailable [phone] Reason for Visit * Reason Onset Date Comments Atrial Fibrillation 07/23/2021 Encounter Details Date Type Department Care Team (Late st Contact Info) Description 07/23/2021 Telephone [facility] [address] [place] [address] Tyrell Leiva, PA-C [address] [place] [address] Atrial Fibrillation Social History Tobacco Use Types [...] than three times a week 03/27/2019 Attends Shinto Services Not on file 03/27 Active Member of Clubs or Organizations Not on f ile 03/27/2019 Attends Club or Organization Meetings Never 03/27/2019 Marital Status 03/27/2019 [facility] [place] of Occupat ional Health - Occupational Stress [...] in this encounter Progress Notes * Rosa Balderas LPN - 07/24/2021 3:35 PM CDTAddended by: ROSA BALDERAS on: 07/24/2021 03:35 PM Modules accepted: Orders * Rosa Balderas LPN - 07/24/2021 3:18 PM CDT Returned call to patient. Informed patient that the prescription was sent to the pharmacy. Asked patient if she would contact her daughter to provide update. V/u and had no further questions. * Smita Weiss - 07/24/2021 3:03 PM CDT Pt daughter called to check on the status of the refill she thought Edgardo wanted it sooner than later. She can be reached at [phone] * Smita Weiss - 07/24/2021 2:04 PM CDT [facility] dated 07/[address] christianson office was supposed to call in a script for albuterol to [facility] in [facility] as of now it has not been sent yet. Please call it in. My call back number is [phone] * Tyrell Leiva PA-C - 07/23/2021 11:20 AM CDT I called to discuss her symptoms with her. I spoke with him and she said she has been feeling dizzyand weak. She has fatigue throughout the day. No chest pain, palpitations, lightheadedness. Recommend restarting amiodarone 200 mg p.o. daily. Schedule appointment for 07/29/2021. 9:45 AM. She is aware. She had no further questions . documented in this encounter Plan of Treatment Upcoming Encounters Date Type Department Care Team (Late st Contact Info) Description 02/15/2024 1:30 PM COMPANY DOCTOR Office Visit [facility] [address] [place] [address] Tyrell Leiva PA-C [address] [place] [address] 02/15/2024 1:30 PM COMPANY DOCTOR Allied Health/Nurse Visit [facility] [address] [place] [address] Mary Christianson MD [address] [place] [address] 03/15/2024 11:15 AM COMPANY DOCTOR [facility] Visit [facility] [place] [address] [place] [address] Jim Tamez MD [address] [place] [address] 05/16/2024 1:15 AM CDT Allied Health/Nurse Visit [facility] [address] [place] [address] Mary Christianson MD [address] [place] [address] 09/07/2024 9:00 AM CDT Office Visit [facility] [place] [address] [place] [address] Tiffany Badillo MD [address] [place], [place] [address] documented as of this encounter Visit Diagnoses Not on filedocumented in this encounter Care Teams Director Of Integrated Marketing Relationship Specialty Start Date End Date Qasim Garrett DO [address] [place] [address] PCP - General FAMILY PRACTICE 04/13/19 Mary Christianson MD [address] [place] [phone] EP Dry Cure Worker CLINICAL CARDIAC ELECTROPHYSIOLOGY 09/15/16 Tiffany Badillo MD [address] [place] [address] Consulting Physician INTERVENTIONAL CARDIOLOGY 12/23/19 Erick Abdi MD [address] [place] [address] Consulting Physician PAIN MANAGEMENT 09/06/20 documented as of this encounter
--- OUTSIDE RECORDS SUMMARY | 2024-01-27 07:33 | XMS_ITS | Encounter Summary ---
Author Organization [facility] Address [address] [place] [address] [place] [address] Care Team Providers Care Logistics Center Manager Name Role Phone Mary Barber MD Unavailable Qasim Garrett DO Primary Care Provider [phone] Tiffany Badillo MD Unavailable [phone] Erick Abdi MD Unavailable [phone] Encounter Details Date Type Department Care Team (Latest Contact Info) Description 07/29/2021 Travel Social History Tobacco Use Types Packs/Day [...] than three times a week 03/27/2019 Attends Mosque Services Not on file 03/27 Active Member of Clubs or Organizations Not on f ile 03/27/2019 Attends Club or Organization Meetings Never 03/27/2019 Marital Status 03/27/2019 [facility] [place] of Occupat ional Health - Occupational Stress [...] Upcoming Encounters Date Type Department Care Team ([facility]) Description 02/15/2024 1:30 PM CLINICAL LABORATORY SCIENCE PROFESSOR Office Visit [facility] ld [address] [place] [address] Tyrell Leiva PAHaylieC [address] [place] [address] 02/15/2024 1:30 PM CLINICAL LABORATORY SCIENCE PROFESSOR Allied Health/Nurse Visit [facility] [address] [place] [address] Mary Barber MD [address] [place] [address] 03/15/2024 11:15 AM CLINICAL LABORATORY SCIENCE PROFESSOR Office Visit [facility] [place] [address] [place] [address] Jim Tamez MD [address] [place] [address] 05/16/2024 1:15 AM CDT Allied Health/Nurse Visit [facility] [address] [place] [address] Mary Barber MD [address] [place] [address] 09/07/2024 9:00 AM CDT Office Visit [facility] [place] [address] [place] [address] Tiffany Badillo MD [address] [place] [address] documented as of this encounter Visit Diagnoses Not on filedocumented in this encounter Care Teams Logistics Center Manager Relationship Specialty Start Date End Date Qasim Garrett DO [address] [place] [address] PCP - General FAMILY PRACTICE 04/13/19 Mary Barber MD [address] [place] [phone] EP Manager Event CLINICAL CARDIAC ELECTROPHYSIOLOGY 09/15/16 Tiffany Badillo MD [address] [place], [place] [address] Consulting Physician INTERVENTIONAL CARDIOLOGY 12/23/19 Erick Abdi MD [address] [place] [address] [phone] Consulting Physician PAIN MANAGEMENT 09/06/20 documented as of this encounter
--- OUTSIDE RECORDS SUMMARY | 2024-01-27 07:33 | XMS_ITS | Encounter Summary ---
Author Organization [facility] Address [address] [facility] [place] [address] [place] [address] Care Team Providers Care Hardware Developer Name Role Phone Mary Barber MD Unavailable Hi Rolon DO Primary Care Provider [phone] Tiffany Badillo MD Unavailable [phone] Erick Abdi MD Unavailable [phone] Reason for Visit * Reason Comments Follow Up Encounter Details Date Type Department Care Team (Late st Contact Info) Description 07/29/2021 9:45 AM CDT [facility] [address] [place] [address] Mary Barber MD [address] [place] [address] Follow Up Social History Tobacco Use Types [...] than three times a week 03/27/2019 Attends Yarsanism Services Not on file 03/27 Active Member of Clubs or Organizations Not on f ile 03/27/2019 Attends Club or Organization Meetings Never 03/27/2019 Marital Status 03/27/2019 [facility] [place] of Occupat ional Health - Occupational Stress [...] Sign Reading Time Taken Comments Blood Pressure 108/70 07/29/2021 9:35 AM CDT Pulse 67 07/29/2021 9:35 AM CDT Temperature - - Respiratory Rate 12 07/29/2021 9:35 AM CDT Oxygen Saturation - - Inhaled Oxygen Concentration - - Weight 80.4 kg (177 lb 3.2 oz) 07/29/2021 9:35 A M CDT Height 160 cm (5' 3 ) 07/29/2021 9:35 AM CDT Body Mass Index 31.39 07/29/2021 9:35 AM CDT documented in this encounter Functional [...] documented in this encounter Progress Notes * Mary Barber MD - 07/29/2021 9:45 AM CDT Images from the original note were not included. Cardiac Electrophysiology Clinic Note PATIENT NAME: Rakan Shaw : 1935 REFERRING PROVIDER: Hi Rolon DO PCP: HI ROLON DO Reason for Visit Atrial fibrillation. History of Present Illness Ms. Shaw is a very pleasant,??86-year-old??female??with a history of paroxysmal atrial fibrillation with rapid ventricular response, refractory??to??medical therapy.??She??underwent ablation of the AV node and implantation of a dual-chamber [employer] pacemaker in April 2006. She used to be on Coumadin for stroke prevention; however, this was stopped in 2007 due to a subdural hematoma requiring evacuation. The patient developed severe nonischemic cardiomyopathy, likely induced by right ventricular pacing, prompting upgrade of the pacemaker to a biventricular [employer] ICD in March 2013. LVEF improved from 35% to 40-45% more recently. Due to??intolerance to Coumadin therapy secondary to??intracranial [...] and the patient was started on Amiodarone thearpy. ??However,??atrial fibrillation recurred??and persisted. Therefore, on 11/06/2020, the patient underwent catheter??ablation of atrial fibrillation.??The patient remained free of atrial arrhythmias since then, and Amiodarone was stopped in February 2021. However, infrequent episodes of atrial fibrillation were recently observed, prompting reinitiation of Amiodarone. ?? About 1-2 weeks ago, the patient felt tired, dizzy, and more dyspneic on minimal activity. She denies syncope, palpitations, and chest pain. She also having been having problems with swallowing, causing decrease in oral intake. No symptoms of GI bleeding. ECG NSR with biventricular pacing. ?? Device Interrogation ?? We interrogated the device today and that showeda [employer] biventricular ICD with good battery voltage and satisfactory pacing and sensing thresholds. ?? Underlying rhythm was NSR with AV block. AFL and AF were observed, with max duration of 49 minutes and total burden of <1%. No sustained ventricular arrhythmias have been observed. Diagnosis 1.??Recurrent??persistent,??atrial fibrillation, refractory to Amiodarone. S/P Catheter ablation on11/06/2020.?Infrequent short episodes of paroxysmal atrial fibrillation have been observed, andthe patient is currently on Amiodarone 200 mg daily. 2. S/P Ablation of the AV node and implantation of a dual-chamber [employer] pacemaker in April 2006.??S/P Upgrade to a [employer] biventricular ICD in March 2013. 3. Chronic anticoagulation with Eliquis for DVT/PE.??H/O??Intolerance to Coumadin due to subdural hematoma, requiring evacuation in June 2007. 4. S/P Percutaneous ligation of left atrial appendage using LARIAT device on 10/19/2013. 5. Severe nonischemic cardiomyopathy with ejection fraction of 34%??in the past, likely induced by right ventricular pacing.?Ejection fraction was??35% with repeat LVEF 40-45% more recently. 6. Premature ventricular contractions.?Holter monitor in the past revealed rare PVCs. 7. 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 8. Hypothyroidism. 9. Hypertension.?? 10.??Esophageal stenosis, requiring multiple dilatation in the past. 11. No known history of coronary artery disease, diabetes, or stroke. Recommendations 1. Reassured the patient that there is no evidence of arrhythmic causes of her symptoms. Poor oral intake related to dysphagia. 2. Will reduce Amiodarone dose to 100 mg daily. 3. Instructed the patient to see her GI physician, and if that is not feasible, to go to ED. 4. May stop Eliquis for 2-3 days prior to EGD if needed. 5. Will follow in clinic in 6 months and earlier as needed. Medications Current Outpatient Medications: ??? amiodarone 200 MG tablet, Take 1 tablet (200 mg total) by mouth daily., Disp: 60 tablet, Rfl: 5 ??? aspirin 81 MG tablet, Take 81 mg by mouth daily. , Disp: , Rfl: ??? ELIQUIS 5 MG tablet, TAKE 1 TABLET BY MOUTH TWICE A DAY, Disp: 60 tablet, Rfl: 3 ??? FUROSEMIDE 20 MG tablet, TAKE 1 TABLET BY MOUTH EVERY DAY (Patient taking differently: Take 20 mg by mouth daily.), Disp: 90 tablet, Rfl: 3 ??? levothyroxine 100 MCG tablet, Take 100 [...] by mouth daily., Disp: , Rfl: ??? ROSUVASTATIN 40 MG tablet, TAKE 1 TABLET AT BEDTIME (Patient taking differently: Take 40 mg by mouth nightly at bedtime.), Disp: 90 tablet, Rfl: 3 ??? sacubitril-valsartan (ENTRESTO) 24-26 MG tablet, Take 1 tablet by mouth 2 (two) times daily., Disp: 60 tablet, Rfl: 11 ??? spironolactone 25 MG tablet, Take 0.5 tablets (12.5 mg total) by mouth daily., Disp: 30 tablet,Rfl: 3 Allergies Allergies Allergen Reactions ??? Penicillins Anaphylaxis [...] Problem Relation Name Age of Onset ??? CO Mother ??? CO Father ??? CABG Brother ??? Stent Brother ??? Stroke Paternal Grandfather ??? Heart Disease Other premature coronary heart disease Review of Systems Review of Systems Constitutional: Negative for chills and fever. Respiratory: Negative for cough, hemoptysis and wheezing. Cardiovascular: Negative for orthopnea, claudication and PND. Gastrointestinal: Negative for blood in stool and melena. Genitourinary: Negative for hematuria. Skin: Negative for rash. Neurological: Negative for focal weakness. Physical Examination Vitals: 07/29/21 0935 BP: 108/70 Pulse: 67 Resp: 12 Physical Exam Vitals reviewed. Constitutional: General: She is not in acute distress. Appearance: Normal appearance. She is well-developed. She is not diaphoretic. HENT: Nose: No mucosal edema. Neck: Vascular: Normal [...] sounds, S1 normal and S2 normal. No murmur heard. No friction rub. No gallop. Pulmonary: Effort: Pulmonary effort is normal. No respiratory distress. Breath sounds: Normal breath sounds. No wheezing or rales. Abdominal: General: There is no abdominal bruit. Musculoskeletal: General: No swelling. Skin: Nails: There is no clubbing. Neurological: Mental Status: She is alert and oriented to person, place, and time. Coordination: Coordination normal. Signed MARY BARBER MD 07/29/2021 documented in this encounter Plan of Treatment Upcoming Encounters Date Type Department Care Team (Late st Contact Info) Description 02/15/2024 1:30 PM PROVIDER RELATIONS ADVOCATE [facility] [address] [place] [phone] Tyrell Leiva PA-C [address] [place] [address] 02/15/2024 1:30 PM PROVIDER RELATIONS ADVOCATE Allied Health/N[facility] [address] [place] [address] Mary Barber MD [address] [place] [address] 03/15/2024 11:15 AM PROVIDER RELATIONS ADVOCATE Office Visit [facility] [place] [address] Jim Tamez MD [address] [place], [place] [address] 05/16/2024 1:15 AM CDT Allied Health/Nurse Visit [facility] [address] [place] [address] Mary Barber MD [address] [place] [address] 09/07/2024 9:00 AM CDT Office Visit [facility] [place] [address] Tiffany Badillo MD [address] [place], [place] [address] documented as of this encounter Procedures Procedure Name Priority Date/Time Associated Diagnosis Comments ELECTROCARDIOGRAM (NON MIDMARK ACQUIRED) Routine 07/29/2021 9:45 AM CDT Paroxysmal atrial fibrillation ([facility]) documented in this encounter Results * ELECTROCARDIOGRAM (07/29/2021 9:45 AM CDT) 07/29/2021 9:45 AM CDT Narrative [facility] - 08/05/2021 6:09 PM CDT ? [facility], [facility] ?[address] [place], [place] ??[address] ? Test Date: ?2021-07-29 Pat Name: ? RAKAN SHAW ?Department: ?? 105 ? Room: ? Gender: ? Female ? Tube Draw Helper: ?? krj : ?1935 ? Requested By: MARY BANG Order Number: [id number] ?Reading MD: ?? Micheal Carrera ? Measurements Intervals ?Wrens ? Rate: ? 67 ? P: ?40 SC: ? 152 ?QRS: ?118 QRSD: ? 137 ?T: ?21 QT: ? 434 ? QTc: ?461 ? Interpretive Statements ELECTRONIC VENTRICULAR PACEMAKER ABNORMAL RHYTHM ECG Procedure Note Micheal Carrera MD - 08/05/2021 [facility], [facility] [address] [place] [address] Test Date: 2021-07-29 Pat Name: RAKAN SHAW Department: [facility] Room: Gender: Female Tube Draw Helper: prasanth : 1935 Requested By: MARY BARBER Order Number: [id number] Reading MD: Micheal Carrera Measurements Intervals Wrens Rate: 67 P: 40 SC: 152 QRS: 118 QRSD: 137 T: 21 QT: 434 QTc: 461 Interpretive Statements ELECTRONIC VENTRICULAR PACEMAKER ABNORMAL RHYTHM ECG us Mary Barber MD PROCEDURES-ORDERABLE NO CHARGE F inal Result [facility] documented in this encounter Visit Diagnoses Diagnosis Paroxysmal atrial fibrillation ([facility] H[facility]/HCC)- Primary Atrial fibrillation documented in this encounter Care Teams Hardware Developer Relationship Specialty Start Date End Date Hi Rolon DO [address] [place] [address] PCP - General FAMILY PRACTICE 04/13/19 Mary Barber MD [address] [place] [phone] EP Cavalry Officer CLINICAL CARDIAC ELECTROPHYSIOLOGY 09/15/16 Tiffany Badillo MD [address] [place] [address] Consulting Physician INTERVENTIONAL CARDIOLOGY 12/23/19 Erick Abdi MD [address] [place] [address] Consulting Physician PAIN MANAGEMENT 09/06/20 documented as of this encounter
--- OUTSIDE RECORDS SUMMARY | 2024-01-27 07:34 | XMS_ITS | Encounter Summary ---
Author Organization [facility] Address [address] [place] [address] [place] [address] Care Team Providers Care Green Chainer Name Role Phone Mary Barber MD Unavailable Qasim Garrett DO Primary Care Provider Tiffany Badillo MD Unavailable [phone] Erick Abdi MD Unavailable [phone] Reason for Visit * Reason Onset Date Comments Anticoagulation 06/10/2021 Hold Eliquis-spi nal procedure Encounter Details Date Type Department Care Team (Late st Contact Info) Description 06/10/2021 Telephone [facility] [address] [place] [address] Mary Barber MD [address] [place] [address] Anticoagulation (Hold Eliquis-spinal procedure) Social History Tobacco Use Types Packs/Day Years [...] Status No 11/06/2020 3:38 PM Ericka Hayes E, RN Active documented as of this encounter Mental Status * Because of a physical, mental, or emotional condition, do you have serious difficulty concentrating, remembering, or making decisions? Answer Entry Date Author Status No 11/06/2020 3:38 PM CDT Ericka Pop RN Active documented in this encounter Progress Notes * Rosa Medel LPN - 06/10/2021 3:46 PM CDT Fax received from [facility] requesting patient hold Eliquis for 3 days for anupcoming procedure: Rightward L4-5 ILESI. Faxed [facility] letter approving three days to [phone]. documented in this encounter Plan of Treatment Upcoming Encounters Date Type Department Care Team (Late st Contact Info) Description 02/15/2024 1:30 PM SOLAR SALES REPRESENTATIVE Office Visit [facility] ld [address] [place] [address] Tyrell Leiva, PA-C [address] [place] [address] 02/15/2024 1:30 PM SOLAR SALES REPRESENTATIVE Allied Health/Nurse Visit [facility] ld [address] [place] [address] Mary Barber MD [address] [place] [address] 03/15/2024 11:15 AM SOLAR SALES REPRESENTATIVE [facility] [place] [address] Jim Tamez MD [address] [place] [address] 05/16/2024 1:15 AM CDT Allied Health/Nurse Visit [facility] ld [address] [place] [address] Mary Barber MD [address] [place] [address] 09/07/2024 9:00 AM CDT [facility] [place] [address] Tiffany Badillo MD [address] [place] [address] documented as of this encounter Visit Diagnoses Not on filedocumented in this encounter Care Teams Green Chainer Relationship Specialty Start Date End Date Qasim Garrett DO [address] [place] [address] PCP - General FAMILY PRACTICE 04/13/19 Mary Barber MD [address] [place] [phone] EP Bull Rider CLINICAL CARDIAC ELECTROPHYSIOLOGY 09/15/16 Tiffany Badillo MD [address] [place], [place] [address] Consulting Physician INTERVENTIONAL CARDIOLOGY 12/23/19 Erick Abdi MD [address] [place] [address] Consulting Physician PAIN MANAGEMENT 09/06/20 documented as of this encounter
--- OUTSIDE RECORDS SUMMARY | 2024-01-27 07:34 | XMS_ITS | Encounter Summary ---
Author Organization [facility] Address [facility] [facility] [place] [address] [place] [address] Care Team Providers Care Machine Greaser Name Role Phone Mary Barber MD Unavailable Qasim Garrett DO Primary Care Provider [phone] Tiffany Badillo MD Unavailable [phone] Erick Abdi MD Unavailable [phone] Reason for Visit * Reason Onset Date Comments Concerns 07/22/2021 Rhythm Strips (SCAN) 07/22/2021 Encounter Details Date Type Department Care Team ([facility] st Contact Info) Description 07/22/2021 [facility] [address] [place] [address] Mary Barber MD [address] [place] [address] Concerns; Rhythm Strips (SCAN) Social History Tobacco Use Types Packs/Day [...] Progress Notes * Rosa Medel LPN - 07/23/2021 3:23 PM CDT See phone note dated 07/23/2021 with Edgardo Smyth. * Dianna Marshall RN - 07/22/2021 9:23 AM CDT Transmission received 07/22/21 shows PMT marked events which show AT 120. No significant afib eventsover 1 min Full transmission scanned into media * Kj Solis RN - 07/22/2021 8:48 AM CDT Patient called and states she would like to speak with Edgardo because she is not feeling well. She says she is light headed and weak. She further says I can't hardly walk a half a block without feelingextremely weak and tired. The patient is wondering if she is back in Afib? I informed the patient we would like her to send a transmission at this time so we can review it. Her device is a [employer] and she has a bedside monitor. I gave the patient the number to [employer] so they could assist her with sending a manual transmission. I informed the patient she should seek care in the nearest ER for persistent or worsening symptoms including CP, SOB, feeling light headed or dizzy,feeling that her heart is continuously racing, or feeling that she might pass out or does pass out.I told the patient I would send a message to Dr. Barber's office regarding this. Someone would then reach back out to her with further recommendations after the transmission had been reviewed. She would like a return call on her land line at [phone]. Patient v/u and had no further questions. documented in this encounter Plan of Treatment Upcoming Encounters Date Type Department Care Team (Late st Contact Info) Description 02/15/2024 1:30 PM TRAFFIC CONTROL OPERATOR Office Visit [facility] [address] [place] [address] Tyrell Leiva PAHaylieC [address] [place] [address] 02/15/2024 1:30 PM TRAFFIC CONTROL OPERATOR Allied Health/Nurse Visit [facility] [address] [place] [address] Mary Barber MD [address] [place] [address] 03/15/2024 11:15 AM TRAFFIC CONTROL OPERATOR Office Visit [facility] [place] [address] [place] [address] Jim Tamez MD [address] [place] [address] 05/16/2024 1:15 AM CDT Allied Health/Nurse Visit [facility] [address] [place] [address] Mary Barber MD [address] [place] [address] 09/07/2024 9:00 AM CDT Office Visit [facility] [place] [address] [place] [address] Tiffany Badillo MD [address] [place] [address] documented as of this encounter Visit Diagnoses Not on filedocumented in this encounter Care Teams Machine Greaser Relationship Specialty Start Date End Date Qasim Garrett DO [address] [place] [address] PCP - General FAMILY PRACTICE 04/13/19 Mary Barber MD [address] [place] [phone] EP Computer Hardware Technician CLINICAL CARDIAC ELECTROPHYSIOLOGY 09/15/16 Tiffany Badillo MD [address] [place] [phone] Consulting Physician INTERVENTIONAL CARDIOLOGY 12/23/19 Erick Abdi MD [address] [place] [address] Consulting Physician PAIN MANAGEMENT 09/06/20 documented as of this encounter
--- OUTSIDE RECORDS SUMMARY | 2024-01-27 07:35 | XMS_ITS | Encounter Summary ---
Author Organization [facility] Address [address] [place] [address] [place] [address] Care Team Providers Care Tack Cleaner Name Role Phone Mary Barber MD Unavailable Qasim Rolon DO Primary Care Provider [phone] Tiffany Badillo MD Unavailable [phone] Erick Abdi MD Unavailable [phone] Reason for Visit * Reason Comments Follow Up Encounter Details Date Type Department Care Team (Late st Contact Info) Description 03/20/2021 11:30 AM ICING MACHINE OPERATOR Office Visit [facility] [place] [address] Tiffany Badillo MD [address] [place] [address] Follow Up Social History Tobacco [...] than three times a week 03/27/2019 Attends Je[employer]'S Witness Services Not on file 03/27 Active Member of Clubs or Organizations Not on f ile 03/27/2019 Attends Club or Organization Meetings Never 03/27/2019 Marital Status 03/27/2019 [facility] [place] of Occupat ional Health - Occupational Stress [...] suspected to have Coronavirus/COVID-19? No / Unsure 03/20/2021 11:22 AM ICING MACHINE OPERATOR documented as of this encounter Last Filed Vital Signs Vital Sign Reading Time Taken Comments Blood Pressure 95/67 03/20/2021 11:41 AM ICING MACHINE OPERATOR Pulse 82 03/20/2021 11:40 AM ICING MACHINE OPERATOR Temperature - - Respiratory Rate 20 03/20/2021 11:40 AM ICING MACHINE OPERATOR Oxygen Saturation 97% 03/20/2021 11:40 AM ICING MACHINE OPERATOR Inhaled Oxygen Concentration - - Weight 84.4 kg (186 lb) 03/20/2021 11:40 AM ICING MACHINE OPERATOR Height 160 cm (5' 3 ) 03/20/2021 11:40 AM ICING MACHINE OPERATOR Body Mass Index 32.95 03/20/2021 11:40 AM ICING MACHINE OPERATOR documented in this encounter Functional [...] Progress Notes * Tiffany Badillo MD - 03/20/2021 11:30 AM CST Chief Complaint: Follow Up HISTORY: Sera Shaffer is a 86-year-old female with past medical history of hypertension, hypercholesterolemia, atrial fibrillation post ablation and??Lariat??procedure, hemorrhagic stroke and hypothyroidism here for follow- up. She is doing well from the cardiac point of view, there is no reported his tory of exertional chest pain, paroxysmal nocturnal dyspnea or orthopnea. Following her most recentoffice visit, she underwent an atrial fibrillation ablation after she was found to be in atrial fibrillation all the time when her device was interrogated. According to her, her most recent EP visit showed that she was not in atrial fibrillation since the procedure. Her major complaints are relatedto her chronic back pain; she has been told by pain management that they could not offer her any procedures (injections or surgery) to relieve her symptoms because of her age. 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 She has not experienced any recent neurologic event (she has a known history of a hemorrhagic stroke). Results of available cardiovascular tests were reviewed with patient, all questions were answered to her satisfaction. No problems with her medications, no refills are required. RECOMMENDATIONS AND PLAN: Continue current medications. Patient was advised to follow with the EP service in relation to her underlying atrial fibrillation. Patient is currently on anticoagulation after she developed a saddle pulmonary embolism in 2019 in the setting of an ankle fracture (provoked pulmonary embolism). She has been on chronic anticoagulation since then. The possibility of stopping all anticoagulation, based on her history of a previous hemorrhagic stroke and a Lariat procedure was discussed with the patient. She was advised to double check with the EP service before any changes are made on her medications. Follow up in 6 month(s) or sooner [...] Start Date End Date Taking? Authorizing Provider apixaban 5 MG tablet Take 1 tablet (5 mg total) by mouth 2 (two) times daily. 01/09/21 Yes Mary Barber MD aspirin 81 MG tablet Take 81 mg by mouth daily. 04/29/06 Yes Doc Abstract FUROSEMIDE 20 MG tablet TAKE 1 TABLET BY MOUTH EVERY DAY Patient taking differently: Take 20 mg by mouth daily. 08/14/20 Yes Tiffany Badillo MD levothyroxine 100 MCG tablet Take 100 mcg by mouth daily. 11/07/19 Yes Doc Abstract metoprolol succinate ER 50 MG 24 hr tablet Take 1 tablet (50 mg total) by mouth daily. 02/23/20 Yes Tiffany Badillo MD pantoprazole EC 40 MG tablet Take 40 mg by mouth daily. 12/13/19 Yes Doc Abstract probiotic Cap capsule Take 1 capsule by mouth daily. Yes Doc Abstract ROSUVASTATIN 40 MG tablet TAKE 1 TABLET AT BEDTIME Patient taking differently: Take 40 mg by mouth nightly at bedtime. 10/01/20 Yes Tiffany Badillo MD sacubitril-valsartan (ENTRESTO) 24-26 MG tablet Take 1 tablet by mouth 2 (two) times daily. 11/20/20 Yes Tiffany Badillo MD SPIRONOLACTONE 25 MG tablet TAKE 1/2 TABLET BY MOUTH EVERY DAY Patient taking differently: Take 12.5 mg by mouth daily. 08/06/20 Yes Tiffany Badillo MD SOCIAL HISTORY: Social History Tobacco Use ??? Smoking status: Former Smoker Types: Cigarettes Quit date: 1972 Years since quittin.1 ??? Smokeless tobacco: Never Used Vaping Use ??? Vaping Use: Never used Substance Use Topics ??? Alcohol use: No ??? Drug use: No FAMILY HISTORY: Family History Problem Relation Name Age of Onset ??? VA Mother ??? VA Father ??? CABG Brother ??? Stent Brother ??? Stroke Paternal Grandfather ??? Heart Disease Other premature coronary heart disease REVIEW OF ORGANS AND SYSTEMS: Review of Systems Constitutional: Negative for recent unintentional weight gain, recent unintentional weight loss andnew or significant fatigue. HENT: Negative for new or significant hearing loss. Eyes: Negative for blurred vision and double vision. Respiratory: Negative for cough, new or significant shortness of breath (low back) and snoring. Cardiovascular: See HPI. Gastrointestinal: Negative for blood in stool and melena. Genitourinary: Negative for dysuria. Musculoskeletal: Positive for joint stiffness/pain. Negative for myalgias. Skin: Negative for rash. Neurological: Positive for tingling/numbness (both feet). Negative for focal weakness. Endo/Heme/Allergies: Negative for new or significant bruising/bleeding and polydipsia. Psychiatric/Behavioral: Negative for depression and new or significant memory loss. PHYSICAL EXAM: Filed Vitals: 03/20/21 1140 03/20/21 1141 BP: 104/67 95/67 Pulse: 82 Resp: 20 SpO2: 97% Weight: 84.4 kg (186 lb) Height: 5' 3 (1.6 m) Body mass index is 32.95 kg/m??. Physical Exam Constitutional: No distress. HENT: [...] PACEMAKER ABNORMAL RHYTHM ECG ?? DIAGNOSIS: 1. Essential hypertension 2. Hypercholesterolemia 3. Biventricular cardiac pacemaker in situ 4. Paroxysmal atrial fibrillation (CMS/HCC) 5. Status post ablation of atrial fibrillation 6. History of hemorrhagic cerebrovascular accident (CVA) with residual deficit 7. Personal history of thromboembolic disease Tiffany Badillo MD, [facility], RPVI 2:50 PM Referring Provider: Qasim Rolon DO PCP: QASIM ROLON DO G MACHINE OPERATOR documented in this encounter Plan of Treatment Upcoming Encounters Date Type Department Care Team (Late st Contact Info) Description 02/15/2024 1:30 PM ICING MACHINE OPERATOR Office Visit [facility] [address] [place] [address] Tyrell Leiva PAHaylieC [address] [place] [address] 02/15/2024 1:30 PM ICING MACHINE OPERATOR Allied Health/Nurse Visit [facility] [address] [place] [address] Mary Barber MD [address] [place] [address] 03/15/2024 11:15 AM ICING MACHINE OPERATOR Office Visit [facility] [place] [address] Jim Tamez MD [address] [place] [address] 05/16/2024 1:15 AM CDT Allied Health/Nurse Visit [facility] [address] [place] [address] Mary Barber MD [address] [place] [address] 09/07/2024 9:00 AM CDT Office Visit [facility] [place] [address] Tiffany Badillo MD [address] [place], [place] [address] documented as of this encounter Visit Diagnoses Diagnosis Essential hypertension- Primary Unspecified essential hypertension Hypercholesterolemia Pure hypercholesterolemia Biventricular cardiac pacemaker in situ Cardiac pacemaker in situ Paroxysmal atrial fibrillation ([facility]/HCC HHS/HCC) Atrial fibrillation Status post ablation of atrial fibrillation Other postprocedural status History of hemorrhagic cerebrovascular accident (CVA) with residual deficit Personal history of thromboembolic disease Personal history of venous thrombosis and embolism documented in this encounter Care Teams Tack Cleaner Relationship Specialty Start Date End Date Qasim Rolon DO [address] [place] [address] PCP - General FAMILY PRACTICE 04/13/19 Mary Barber MD [address] [place] [address] EP Gate Keeper CLINICAL CARDIAC ELECTROPHYSIOLOGY 09/15/16 Tiffany Badillo MD [address] [place] [address] [id number] Consulting Physician INTERVENTIONAL CARDIOLOGY 12/23/19 Erick Abdi MD [address] [place] [address] [id number] Consulting Physician PAIN MANAGEMENT 09/06/20 documented as of this encounter
--- OUTSIDE RECORDS SUMMARY | 2024-01-27 07:35 | XMS_ITS | Encounter Summary ---
Author Organization [facility] Address [address] [facility] [place] [address] [place] [address] Care Team Providers Care Racebook Writer Name Role Phone Mary Barber MD Unavailable Qasim Garrett DO Primary Care Provider [phone] Tiffany Badillo MD Unavailable [phone] Erick Abdi MD Unavailable [phone] Encounter Details Date Type Department Care Team (Latest Contact Info) Description 02/20/2021 Travel Social History Tobacco Use Types Packs/Day [...] Organization Meetings Never 03/27/2019 Marital Status 03/27/2019 [facility] [place] of Occupat ional Health - Occupational Stress [...] Exposure Response Date Recorded In the last month, have you been in contact with someone who was confirmed or suspected to have Coronavirus / COVID-19? No / Unsure 02/20/2021 8:41 AM RECYCLER FORKLIFT DRIVER TRUCK DRIVER documented as of this encounter Functional Status [...] st Contact Info) Description 02/15/2024 1:30 PM RECYCLER FORKLIFT DRIVER TRUCK DRIVER Office Visit [facility] [address] [place] [address] Tyrell Leiva, PA-C [address] [place] [address] 02/15/2024 1:30 PM RECYCLER FORKLIFT DRIVER TRUCK DRIVER Allied Health/Nurse Visit [facility] [address] [place] [address] Mary Barber MD [address] [place] [address] 03/15/2024 11:15 AM RECYCLER FORKLIFT DRIVER TRUCK DRIVER Office Visit [facility] [place] [address] [place] [address] Jim Tamez MD [address] [place] [address] 05/16/2024 1:15 AM CDT Allied Health/Nurse Visit [facility] [address] [place] [address] Mary Barber MD [address] [place] [address] 09/07/2024 9:00 AM CDT Office Visit [facility] [place] [address] [place] [address] Tiffany Badillo MD [address] [place] [address] documented as of this encounter Visit Diagnoses Not on filedocumented in this encounter Care Teams Racebook Writer Relationship Specialty Start Date End Date Qasim Garrett DO [address] [place] [address] PCP - General FAMILY PRACTICE 04/13/19 Mary Barber MD [address] [place] [address] EP Management Accounts Manager CLINICAL CARDIAC ELECTROPHYSIOLOGY 09/15/16 Tiffany Badillo MD [address] [place], [place] [address] Consulting Physician INTERVENTIONAL CARDIOLOGY 12/23/19 Erick Abdi MD [address] [phone] Consulting Physician PAIN MANAGEMENT 09/06/20 documented as of this encounter
--- OUTSIDE RECORDS SUMMARY | 2024-01-27 07:35 | XMS_ITS | Encounter Summary ---
Author Organization [facility] Address [address] [facility] [place] [address] [place] [address] Care Team Providers Care Recruiting Team Lead Name Role Phone Mary Barber MD Unavailable Qasim Garrett DO Primary Care Provider [phone] Tiffany Badillo MD Unavailable [phone] Erick Abdi MD Unavailable [phone] Reason for Visit * Reason Onset Date Comments Information 04/29/2021 Perioperative wo rksheet Encounter Details Date Type Department Care Team (Late st Contact Info) Description 04/29/2021 Telephone [facility] [address] [place] [address] Mary Barber MD [address] [place] [address] Information (Perioperative worksheet) Social History Tobacco Use Types Packs/Day Years [...] than three times a week 03/27/2019 Attends [employer] Services Not on file 03/27 Active Member of Clubs or Organizations Not on f ile 03/27/2019 Attends Club or Organization Meetings Never 03/27/2019 Marital Status 03/27/2019 [employer] of Occupat ional Health - Occupational Stress [...] encounter Progress Notes * Triny Rader - 05/02/2021 10:45 AM CDT Refaxed Perioperative Management worksheet to [facility] at #[phone] * Triny Rader - 04/29/2021 1:12 PM CDT Perioperative Worksheet signed by Dr Barber and scanned into the patients chart. Faxed Perioperative Worksheet to [facility] at #[phone]. * Coy Diop RN - 04/29/2021 1:00 PM CDT Received perioperative worksheet from [facility]. Taken to Dr Barber office for review. Fax back to [phone] documented in this encounter Plan of Treatment Upcoming Encounters Date Type Department Care Team (Late st Contact Info) Description 02/15/2024 1:30 PM JEWELRY REPAIRER Office Visit [facility] [address] [place] [address] Tyrell Leiva PAHaylieC [address] [place] [address] 02/15/2024 1:30 PM JEWELRY REPAIRER Allied Health/Nurse Visit [facility] [address] [place] [address] Mary Barber MD [address] [place] [address] 03/15/2024 11:15 AM JEWELRY REPAIRER Office Visit [facility] [address] [place] [address] Jim Tamez MD [address] [place], [place] [address] 05/16/2024 1:15 AM CDT Allied Health/Nurse Visit [facility] [address] [place] [address] Mary Barber MD [address] [place] [address] 09/07/2024 9:00 AM CDT Office Visit [address] [place] [address] Tiffany Badillo MD [address] [place], [place] [address] documented as of this encounter Visit Diagnoses Not on filedocumented in this encounter Care Teams Recruiting Team Lead Relationship Specialty Start Date End Date Qasim Garrett DO [address] [place] [address] PCP - General FAMILY PRACTICE 04/13/19 Mary Barber MD [address] [place] [address] EP Burring Wheel Operator CLINICAL CARDIAC ELECTROPHYSIOLOGY 09/15/16 Tiffany Badillo MD [address] [place], [place] [address] Consulting Physician INTERVENTIONAL CARDIOLOGY 12/23/19 Erick Abdi MD [address] [address] Consulting Physician PAIN MANAGEMENT 09/06/20 documented as of this encounter
--- OUTSIDE RECORDS SUMMARY | 2024-01-27 07:35 | XMS_ITS | Encounter Summary ---
Author Organization [facility] Address [address] [place] [address] [place] [address] Care Team Providers Care Fiber Optics Technician Name Role Phone Mary Barber MD Unavailable Qasim Garrett DO Primary Care Provider [phone] Tiffany Badillo MD Unavailable [phone] Erick Abdi MD Unavailable [phone] Encounter Details Date Type Department Care Team (Latest Contact Info) Description 03/20/2021 Travel Social History Tobacco Use Types Packs/Day [...] than three times a week 03/27/2019 Attends Orthodox Services Not on file 03/27 Active Member of Clubs or Organizations Not on f ile 03/27/2019 Attends Club or Organization Meetings Never 03/27/2019 Marital Status 03/27/2019 [facility] [place] of Occupat ional Health - Occupational [...] Coronavirus/COVID-19? No / Unsure 03/20/2021 11:22 AM COMMERCIAL INSTALLER documented as of this encounter Functional Status [...] Care Team (Late st [facility]) Description 02/15/2024 1:30 PM COMMERCIAL INSTALLER Office Visit [facility] [address] [place] [address] Tyrell Leiva PA-C [address] [place] [address] 02/15/2024 1:30 PM COMMERCIAL INSTALLER Allied Health/Nurse Visit [facility] [address] [place] [address] Mary Barber MD [address] [place] [address] 03/15/2024 11:15 AM COMMERCIAL INSTALLER Office Visit [facility] [place] [address] [place] [address] Jim Tamez MD [address] [place] [address] 05/16/2024 1:15 AM CDT Allied Health/Nurse Visit [facility] [address] [place] [address] Mary Barber MD [address] [place] [address] [phone] 09/07/2024 9:00 AM CDT Office Visit [facility] [place] [address] [place] [address] Tiffany Badillo MD [address] [place] [address] documented as of this encounter Visit Diagnoses Not on filedocumented in this encounter Care Teams Fiber Optics Technician Relationship Specialty Start Date End Date Qasim Garrett DO [address] [place] [address] PCP - General FAMILY PRACTICE 04/13/19 Mary Barber MD [address] [place] [address] EP Asbestos Siding Mechanic CLINICAL CARDIAC ELECTROPHYSIOLOGY 09/15/16 Tiffany Badillo MD [address] [place], [place] [address] Consulting Physician INTERVENTIONAL CARDIOLOGY 12/23/19 Erick Abdi MD [address] [place] [address] [phone] Consulting Physician PAIN MANAGEMENT 09/06/20 documented as of this encounter
--- OUTSIDE RECORDS SUMMARY | 2024-01-27 07:35 | XMS_ITS | Encounter Summary ---
Author Organization [facility] Address [address] [facility] [place] [address] [place] [address] Care Team Providers Care Wheel Of Fortune Dealer Name Role Phone Mary Barber MD Unavailable Qasim Garrett DO Primary Care Provider [phone] Tiffany Badillo MD Unavailable [phone] Erick Abdi MD Unavailable [phone] Reason for Visit * Reason Onset Date Comments Surgical Clearance 04/29/2021 Encounter Details Date Type Department Care Team (Late st Contact Info) Description 04/29/2021 Telephone [facility] [address] [place] [address] Tiffany Badillo MD [address] [place] [address] Surgical Clearance Social History Tobacco Use Types Packs/Day Years [...] PM CDT Ericka Pop R N Active documented in this encounter Progress Notes * Ericka Sharma RN - 04/29/2021 1:07 PM CDT Received form in fax about holding Eliquis for a colonoscopy on 05/03. Dr. Badillo reviewed and saidjarrett can hold it two days before procedure. Faxed form and last clinic note to [phone]. * Ericka Sharma RN - 04/29/2021 11:25 AM CDT Left VM for Chanell to call back to figure out what the procedure is that they are doing. * Lynne Brewster - 04/29/2021 11:19 AM CDT Chanell with [facility] in [place] is faxing request to Dr. Tiffany Badillo' office asking OKfor patient to hold Eliquis starting tomorrow for upcoming procedure. Her call back # is [phone]. documented in this encounter Plan of Treatment Upcoming Encounters Date Type Department Care Team (Late st Contact Info) Description 02/15/2024 1:30 PM SINGLE END SEWER [facility] [address] [place] [address] Tyrell Leiva PA-C [address] [place] [address] 02/15/2024 1:30 PM SINGLE END SEWER Allied Health/Nurse Visit [facility] [address] [place] [address] Mary Barber MD [address] [place] [address] 03/15/2024 11:15 AM SINGLE END SEWER Office Visit [address] [place] [address] Jim Tamez MD [address] [place] [address] 05/16/2024 1:15 AM CDT Allied Health/Nurse Visit [facility] ld [address] [place] [address] [phone] Mary Barber MD [address] [place] [address] 09/07/2024 9:00 AM CDT Office Visit [address] [place] [address] Tiffany Badillo MD [address] [place] [address] documented as of this encounter Visit Diagnoses Not on filedocumented in this encounter Care Teams Wheel Of Fortune Dealer Relationship Specialty Start Date End Date Qasim Garrett DO [address] [place] [address] PCP - General FAMILY PRACTICE 04/13/19 Mary Barber MD [address] [place] [address] EP Functional Consultant CLINICAL CARDIAC ELECTROPHYSIOLOGY 09/15/16 Tiffany Badillo MD [address] [place] [address] Consulting Physician INTERVENTIONAL CARDIOLOGY 12/23/19 Erick Abdi MD [address] [address] Consulting Physician PAIN MANAGEMENT 09/06/20 documented as of this encounter
--- OUTSIDE RECORDS SUMMARY | 2024-01-27 07:35 | XMS_ITS | Encounter Summary ---
Author Organization [facility] Address [address] [facility] [place] [address] [place] [address] Care Team Providers Care Bait Maker Name Role Phone Mary Barber MD Unavailable Qasim Garrett DO Primary Care Provider [phone] Tiffany Badillo MD Unavailable [phone] Erick Abdi MD Unavailable [phone] Reason for Visit * Reason Onset Date Comments Information 04/24/2021 Periop worksheet Encounter Details Date Type Department Care Team ([facility] st Contact Info) Description 04/24/2021 Telephone [facility] [address] [place] [address] Mary Barber MD [address] [place] [address] Information (Periop worksheet) Social History Tobacco Use Types Packs/Day [...] documented in this encounter Progress Notes * Chanell Johnson - 04/30/2021 10:28 AM CDT See 04/29/21 Sunil phone encounter. Periop worksheet scanned and faxed as requested on 04/29/21. * Rosa Medel LPN - 04/25/2021 12:12 PM CDT Fax received from [facility] for clearance for upcoming colonoscopy. Dr. Cortez request this patient to hold his/her Eliquis for 2 days rior to procedure. OAC letter faxed to [phone]. * Dianna Marshall RN - 04/24/2021 12:43 PM CDT Fax requested from [facility]. Patient having an EGD 05/03/21. Periop worksheet initiated by device clinic and taken to Dr Mcgee's office for completion Fax completed worksheet to documented in this encounter Plan of Treatment Upcoming Encounters Date Type Department Care Team (Late st Contact Info) Description 02/15/2024 1:30 PM ATHLETIC GEAR CUSTODIAN [facility] Visit [facility] [address] [place] [address] Tyrell Leiva, ABDI [address] [place] [address] 02/15/2024 1:30 PM ATHLETIC GEAR CUSTODIAN Allied Health/Nurse Visit [facility] ld [address] [place] [address] Mary Barber MD [address] [place] [address] 03/15/2024 11:15 AM ATHLETIC GEAR CUSTODIAN Office Visit [facility] [address] [place] [address] Jim Tamez MD [address] [place] [address] 05/16/2024 1:15 AM CDT Allied Health/Nurse Visit [facility] [address] [place] [address] Mary Barber MD [address] [place] [address] 09/07/2024 9:00 AM CDT Office Visit [address] [place] [address] Tiffany Badillo MD [address] [place] [address] documented as of this encounter Visit Diagnoses Not on filedocumented in this encounter Care Teams Bait Maker Relationship Specialty Start Date End Date Qasim Garrett DO [address] [place] [address] PCP - General FAMILY PRACTICE 04/13/19 Mary Barber MD [address] [place] [address] EP Cyber Intelligence Analyst CLINICAL CARDIAC ELECTROPHYSIOLOGY 09/15/16 Tiffany Badillo MD [address] [place] [address] Consulting Physician INTERVENTIONAL CARDIOLOGY 12/23/19 Erick Abdi MD [address] [phone] Consulting Physician PAIN MANAGEMENT 09/06/20 documented as of this encounter
--- OUTSIDE RECORDS SUMMARY | 2024-01-27 07:35 | XMS_ITS | Encounter Summary ---
Author Organization [facility] Address [address] [facility] [place] [address] [place] [address] Care Team Providers Care Station Chief Name Role Phone Mary Barber MD Unavailable Qasim Garrett DO Primary Care Provider [phone] Tiffany Badillo MD Unavailable [phone] Erick Abdi MD Unavailable [phone] Reason for Visit * Reason Onset Date Comments Appointment Reminder 03/19/2021 Encounter Details Date Type Department Care Team (Late st Contact Info) Description 03/19/2021 [facility]phone [facility] [address] [place] [address] Tiffany Badillo MD [address] [place] [address] Appointment Reminder Social History Tobacco Use Types [...] Organization Meetings Never 03/27/2019 Marital Status 03/27/2019 [facility] ional [facility] - [...] COVID-19? No / Unsure 02/20/2021 8:41 AM TOLL MECHANIC documented as of this encounter Functional Status [...] Progress Notes * Ericka Sharma RN - 03/19/2021 3:24 PM CST Confirmed appt with Sera to see Dr. Badillo 03/20 in [place] at 11:30 am. MECHANIC documented in this encounter Plan of Treatment Upcoming Encounters Date Type Department Care Team (Late st Contact Info) Description 02/15/2024 1:30 PM TOLL MECHANIC Office Visit [facility] [address] [place] [address] Tyrell Leiva, PA-C [address] [place] [address] 02/15/2024 1:30 PM TOLL MECHANIC Allied Health/Nurse Visit [facility] [address] [place] [address] Mary Barber MD [address] [place] [address] 03/15/2024 11:15 AM TOLL MECHANIC Office Visit [facility] [place] [address] Jim Tamez MD [address] [place] [address] 05/16/2024 1:15 AM CDT Allied Health/Nurse Visit [facility] [address] [place] [address] Mary Barber MD [address] [place] [address] 09/07/2024 9:00 AM CDT Office [facility] [place] [address] Tiffany Badillo MD [address] [place] [address] documented as of this encounter Visit Diagnoses Not on filedocumented in this encounter Care Teams Station Chief Relationship Specialty Start Date End Date Qasim Garrett DO [address] [place] [address] PCP - General FAMILY PRACTICE 04/13/19 Mary Barber MD [address] [place] [address] EP Tmh Teacher CLINICAL CARDIAC ELECTROPHYSIOLOGY 09/15/16 Tiffany Badillo MD [address] [place] [address] Consulting Physician INTERVENTIONAL CARDIOLOGY 12/23/19 Erick Abdi MD [address] [place] [id number] Consulting Physician PAIN MANAGEMENT 09/06/20 documented as of this encounter
--- OUTSIDE RECORDS SUMMARY | 2024-01-27 07:35 | XMS_ITS | Encounter Summary ---
Author Organization [facility] Address [address] [facility] [place] [address] [place] [address] Care Team Providers Care Inside Sales Assistant Name Role Phone Mary Barber MD Unavailable Qasim Garrett DO Primary Care Provider [phone] Tiffany Badillo MD Unavailable [phone] Erick Abdi MD Unavailable [phone] Encounter Details Date Type Department Care Team (Late st Contact Info) Description 05/28/2021 8:45 AM CDT Allied Health/Nurse [facility] [address] [place] [address] Mary Barber MD [address] [place] [address] Social History Tobacco Use Types Packs/Day Years [...] 03/27/2019 Marital Status 03/27/2019 [facility] - Occupational [...] Progress Notes * Coy Diop RN - 05/28/2021 8:45 AM CDT Images from the original note were not included. ICD REMOTE INTERROGATION NAME: Sera Shaffer : 1935 CSN: [id number] DATE OF INTERROGATION: 05/28/2021 FOLLOW UP E.P PHYSICIAN: Dr Mary Barber DEVICE SPECIFICATIONS DEVICE ARTIST CONSULTANT [employer] SCIENTIFIC DEVICE TYPE BIV ICD EST. BATTERY LIFE OR CURRENT VOLTAGE/ROSALIND VOLTAGE 2 y LEAD IMPEDENCE TRENDS OK ATRIAL PACING % 4 RV PACING % 99 BIV/LVP PACING % 99 COMMENTS ATRIAL ARRHYTHMIAS AF BURDEN <0.1 % LONGEST EPISODE 3 events all less than 1 minute ORAL ANTICOAGULATION Eliquis/Apixaban and ASA COMMENTS VENTRICULAR ARRHYTHMIAS NSVT EPISODE(S) 0 VT EPISODE(S) 0 FVT EPISODE(S) 0 VF EPISODE(S) 0 COMMENTS ALERTS / NURSE COMMENTS ??? SEE ATTACHED PDF FOR VENDOR PRINTOUTS (PRESENTING, HISTOGRAMS, EGM???S) ??? Normal device function. PHYSICIAN COMMENTS (IF ANY) ??? Cosigned by Mary Barber MD at 06/11/2021 3:39 PM CDT * Coy Diop RN - 05/28/2021 8:45 AM CDT error documented in this encounter Plan of Treatment Upcoming Encounters Date Type Department Care Team (Late st Contact Info) Description 02/15/2024 1:30 PM BUSINESS ASSOCIATE Office Visit [facility] [address] [place] [address] Tyrell Leiva PA-C [address] [place] [address] 02/15/2024 1:30 PM BUSINESS ASSOCIATE Allied Health/Nurse Visit [facility] ld [address] [place] [address] [phone] Mary Barber MD [address] [place] [address] 03/15/2024 11:15 AM BUSINESS ASSOCIATE [facility] Visit [facility] [address] [place] [address] Jim Tamez MD [address] [place], [place] [address] [phone] 05/16/2024 1:15 AM CDT Allied Health/Nurse Visit [facility] ld [address] [place] [address] Mary Barber MD [address] [place] [address] 09/07/2024 9:00 AM CDT Office Visit [place] [address] [place] [address] Tiffany Badillo MD [address] [place] [address] documented as of this encounter Visit Diagnoses Diagnosis VT (ventricular tachycardia) ([facility]) Paroxysmal ventricular tachycardia documented in this encounter Care Teams Inside Sales Assistant Relationship Specialty Start Date End Date Qasim Garrett DO [address] [place] [address] PCP - General FAMILY PRACTICE 04/13/19 Mary Barber MD [address] [place] [address] EP Business Machines Teacher CLINICAL CARDIAC ELECTROPHYSIOLOGY 09/15/16 Tiffany Badillo MD [address] [place], [place] [address] Consulting Physician INTERVENTIONAL CARDIOLOGY 12/23/19 Erick Abdi MD [address] [place] [address] Consulting Physician PAIN MANAGEMENT 09/06/20 documented as of this encounter
--- OUTSIDE RECORDS SUMMARY | 2024-01-27 07:36 | XMS_ITS | Encounter Summary ---
Author Organization [facility] Address [address] [facility] [place] [address] [place] [address] Care Team Providers Care Artificial Flowers Starcher Name Role Phone Mary Barber MD Unavailable Qasim Garrett DO Primary Care Provider [phone] Tiffany Badillo MD Unavailable [phone] Erick Abdi MD Unavailable [phone] Reason for Visit * Reason Onset Date Comments Echo 02/15/2021 Encounter Details Date Type Department Care Team (Late st Contact Info) Description 02/15/2021 [facility]phone [facility] [address] [place] [address] Tyrell Leiva, PA-C [address] [place] [address] Echo Social History Tobacco Use Types Packs/Day Years [...] than three times a week 03/27/2019 Attends [employer] Services Not on file 03/27 Active Member of Clubs or Organizations Not on f ile 03/27/2019 Attends Club or Organization Meetings Never 03/27/2019 Marital Status 03/27/2019 [facility] [place] of Occupat ional Health - Occupational Stress [...] have Coronavirus / COVID-19? No / Unsure 02/13/2021 1:13 PM FLIGHT FOLLOWER documented as of this encounter Functional Status [...] Progress Notes * Tyrell Leiva PA-C - 02/15/2021 4:36 PM CST I called to give patient the results of her echocardiogram. There has been a great improvement in her LVEF 40-45% compared to 35% in August 2020. She is happy about these results. We will see her in clinic in follow-up next week. She had no further questions. HT FOLLOWER documented in this encounter Plan of Treatment Upcoming Encounters Date Type Department Care Team (Late st Contact Info) Description 02/15/2024 1:30 PM FLIGHT FOLLOWER Office Visit [facility] ld [address] [place] [address] Tyrell Leiva PA-C [address] [place] [address] 02/15/2024 1:30 PM FLIGHT FOLLOWER Allied Health/Nurse Visit [facility] [address] [place] [address] Mary Barber MD [address] [place] [address] 03/15/2024 11:15 AM FLIGHT FOLLOWER Office Visit [facility] [place] [address] Jim Tamez MD [address] [place] [address] 05/16/2024 1:15 AM CDT Allied Health/Nurse Visit [facility] [address] [place] [address] Mary Barber MD [address] [place] [address] 09/07/2024 9:00 AM CDT [facility] [place] [address] Tiffany Badillo MD [address] [place] [address] documented as of this encounter Visit Diagnoses Not on filedocumented in this encounter Care Teams Artificial Flowers Starcher Relationship Specialty Start Date End Date Qasim Garrett DO [address] [place] [address] PCP - General FAMILY PRACTICE 04/13/19 Mary Barber MD [address] [place] [address] EP Prune Washer CLINICAL CARDIAC ELECTROPHYSIOLOGY 09/15/16 Tiffany Badillo MD [address] [place] [address] Consulting Physician INTERVENTIONAL CARDIOLOGY 12/23/19 Erick Abdi MD [address] [place] [address] Consulting Physician PAIN MANAGEMENT 09/06/20 documented as of this encounter
--- OUTSIDE RECORDS SUMMARY | 2024-01-27 07:36 | XMS_ITS | Encounter Summary ---
Author Organization [facility] Address [address] [place] [address] [place] [address] Care Team Providers Care Sheet Rock Applier Name Role Phone Mary Barber MD Unavailable Qasim Rolon DO Primary Care Provider [phone] Tiffany Badillo MD Unavailable [phone] Erick Abdi MD Unavailable [phone] Reason for Visit * Reason Comments Follow Up Arrhythmia Atrial Fibrillation CHF Encounter Details Date Type Department Care Team (Late st Contact Info) Description 02/20/2021 9:00 AM INDUSTRIAL CHEMIST Office Visit [facility] [address] [place] [address] Shae Leiva, PA-C [address] [place] [address] Follow Up; Arrhythmia; Atrial Fibrillation; CHF Social History Tobacco Use Types Packs/Day Years [...] than three times a week 03/27/2019 Attends [employer] Services Not on file 03/27 Active Member [...] Coronavirus/COVID-19? No / Unsure 03/20/2021 11:22 AM INDUSTRIAL CHEMIST documented as of this encounter Last Filed Vital Signs Vital Sign Reading Time Taken Comments Blood Pressure 110/58 02/20/2021 8:57 AM INDUSTRIAL CHEMIST Pulse 79 02/20/2021 8:57 AM INDUSTRIAL CHEMIST EKG Temperature - - Respiratory Rate 20 02/20/2021 8:57 AM INDUSTRIAL CHEMIST Oxygen Saturation - - Inhaled Oxygen Concentration - - Weight 82.6 kg (182 lb) 02/20/2021 8:57 AM INDUSTRIAL CHEMIST Height 162.6 cm (5' 4 ) 02/20/2021 8:57 AM INDUSTRIAL CHEMIST Body Mass Index 31.24 02/20/2021 8:57 AM INDUSTRIAL CHEMIST documented in this encounter Functional Status * [...] this encounter Patient Instructions * Patient Instructions* Shae Leiva PA-C - 02/20/2021 9:00 AM INDUSTRIAL CHEMIST No changes in medications. Stop amiodarone. Continue Eliquis. Follow up next with Dr. Barber. STRIAL CHEMIST STRIAL CHEMIST documented in this encounter Progress Notes * Shae Leiva PA-C - 02/20/2021 9:00 AM CST Images from the original note were not included. Cardiac Electrophysiology Clinic Note PATIENT NAME: Rakan Shaw : 1935 REFERRING PROVIDER: No ref. provider found PCP: QASIM ROLNO, Reason for Visit Atrial fibrillation, post catheter ablation of atrial fibrillation History of Present Illness Ms. Shaw is a very pleasant,??86-year-old??female??with a history of paroxysmal atrial fibrillation with rapid ventricular response, refractory??to??medical therapy.??She??underwent ablation of the AV node and implantation of a dual-chamber [employer] pacemaker in April 2006. She used to be on Coumadin for stroke prevention; however, this was stopped in 2007 due to a subdural hematoma requiring evacuation. The patient developed severe nonischemic cardiomyopathy, likely induced by right ventricular pacing, prompting upgrade of the pacemaker to a biventricular [employer] ICD in March 2013. Due to??intolerance to Coumadin therapy secondary to??intracranial [...] patient underwent catheter??ablation of atrial fibrillation.??The patient tolerated the procedure well without complications. Last clinic visit 12/13/2020. She was doing well. We ordered an echo to evaluate ventricular function as she had systolic dysfunction in the past and she was RV pacing 100% of the time. LVEF improved from 35% to 40-45% more recently. She presents to clinic today for follow-up. She has been feeling well. No chest pain, shortness of breath, palpitations, fatigue, presyncope, dizziness. ECG SR With Vpacing 79BPM. Device Interrogation We interrogated the device today and that showed a [employer] biventricular ICD with good battery voltage and satisfactory pacing and sensing thresholds. Underlying rhythm was SR, CHB. No sustained atrial or ventricular arrhythmias have been observed. Apacing 7%of the time, BiV pacing 100% of the time. Diagnosis 1.??Recurrent??persistent,??atrial fibrillation, refractory to Amiodarone. S/P Catheter ablation on11/06/2020.?? No evidence of recurrence since that time. 2. S/P Ablation of the AV node and implantation of a dual-chamber [employer] pacemaker in April 2006.??S/P Upgrade to a [employer] biventricular ICD in March 2013. 3. Chronic anticoagulation with Eliquis for DVT/PE.??H/O??Intolerance to Coumadin due to subdural hematoma, requiring evacuation in June 2007. 4. S/P Percutaneous ligation of left atrial appendage using LARIAT device on 10/19/2013. 5. Severe nonischemic cardiomyopathy with ejection fraction of 34%??in the past, likely induced by right ventricular pacing.?Ejection fraction was 35% with repeat LVEF 40-45% more recently. 6. Premature ventricular contractions.?Holter monitor in the past revealed rare PVCs. 7. 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 8. Hypothyroidism. 9. Hypertension.?? 10.??No known history of coronary artery disease, diabetes, or stroke. Recommendations 1. Stop amiodarone today. No atrial fibrillation on today's ICD interrogation. 2. Continue Eliquis for DVT/PE. 3. Continue remote device interrogations as scheduled. 4. Follow up in clinic with device check with Dr. Barber in 09/2021. Medications Current Outpatient Medications: ??? amiodarone 200 MG tablet, Take 1 tablet (200 mg total) by mouth daily., Disp: 90 tablet, Rfl: 3 ??? apixaban 5 MG tablet, Take 1 tablet (5 mg total) by mouth 2 (two) times daily., Disp: 60 tablet, Rfl: 3 ??? aspirin 81 MG tablet, Take 81 mg by mouth daily. , Disp: , Rfl: ??? FUROSEMIDE 20 MG tablet, TAKE 1 TABLET BY MOUTH EVERY DAY (Patient taking differently: Take 20 mg by mouth daily. ), Disp: 90 tablet, Rfl: 3 ??? levothyroxine 100 MCG tablet, Take 100 mcg by mouth daily., Disp: , Rfl: ??? loteprednol 0.5 % ophthalmic suspension, Place 1 drop into the right eye 4 (four) times daily. , Disp: , Rfl: ??? metoprolol succinate ER 50 MG 24 hr tablet, Take 1 tablet (50 mg total) by mouth daily., Disp: 90 tablet, Rfl: 3 ??? pantoprazole EC 40 MG tablet, Take 40 mg by mouth daily. , Disp: , Rfl: ??? ROSUVASTATIN 40 MG tablet, TAKE 1 TABLET AT BEDTIME (Patient taking differently: Take 40 mg by mouth nightly at bedtime. ), Disp: 90 tablet, Rfl: 3 ??? sacubitril-valsartan (ENTRESTO) 24-26 MG tablet, Take 1 tablet by mouth 2 (two) times daily., Disp: 60 tablet, Rfl: 11 ??? SPIRONOLACTONE 25 MG tablet, TAKE 1/2 TABLET BY MOUTH EVERY DAY (Patient taking differently: Take 12.5 mg by mouth daily. ), Disp: 45 tablet, Rfl: 3 Allergies Allergies Allergen Reactions ??? Penicillins Anaphylaxis ??? Levofloxacin Other (see comment) Loss of appetite ??? Oxycodone GI Upset ??? Vicodin [Hydrocodone-Acetaminophen] [...] Right 06/2019 ??? APPENDECTOMY ??? BRAIN SURGERY 2008 brain bleed, rodríguez hole ??? EYE SURGERY cataract ??? HC ICD BI VENTRICULAR GENERATOR 04/04/2013 s-p VT ablation ??? HYSTERECTOMY ??? JOINT REPLACEMENT ??? PACEMAKER 04/28/2006 DDD s-p AVJ ablation ??? XA LEFT ATRIAL APPENDAGE CLOSURE 10/19/2013 H/O ICB Social History Tobacco Use ??? Smoking status: Former Smoker Types: Cigarettes Quit date: 1972 Years since quittin.0 ??? Smokeless tobacco: Never Used Vaping Use ??? Vaping Use: Never used Substance Use Topics ??? Alcohol use: No ??? Drug use: No Family History Problem Relation Name Age of Onset ??? MO Mother ??? MO Father ??? CABG Brother ??? Stent Brother ??? Stroke Paternal Grandfather ??? Heart Disease Other premature coronary heart disease Review of Systems Review of Systems Constitutional: Negative for fever and malaise/fatigue. HENT: Negative for hearing [...] normal. Thought Content: Thought content normal. Signed SHAE LEIVA PA-C 02/20/2021 STRIAL CHEMIST documented in this encounter Plan of Treatment Upcoming Encounters Date Type Department Care Team (Late st Contact Info) Description 02/15/2024 1:30 PM INDUSTRIAL CHEMIST Office Visit [facility] [address] [place] [address] Shae Leiva PA-C [address] [place] [address] 02/15/2024 1:30 PM INDUSTRIAL CHEMIST Allied Health/Nurse Visit [facility] [address] [place] [address] Mary Barber MD [address] [place] [address] 03/15/2024 11:15 AM INDUSTRIAL CHEMIST Office Visit [facility] [address] [place] [address] Jim Tamez MD [address] [place], [place] [address] 05/16/2024 1:15 AM CDT Allied Health/Nurse Visit [facility] [address] [place] [address] Mary Barber MD [address] [place] [address] 09/07/2024 9:00 AM CDT Office Visit [facility] [address] [place] [address] Tiffany Badillo MD [address] [place], [place] [address] documented as of this encounter Procedures Procedure Name Priority Date/Time Associated Diagnosis Comments ELECTROCARDIOGRAM (NON MIDMARK ACQUIRED) Routine 02/20/2021 8:54 AM INDUSTRIAL CHEMIST Paroxysmal atrial fibrillation ([facility]/HCC) documented in this encounter Results * ELECTROCARDIOGRAM (02/20/2021 8:54 AM INDUSTRIAL CHEMIST) 02/20/2021 8:54 AM INDUSTRIAL CHEMIST Narrative [facility] - 02/25/2021 4:25 PM INDUSTRIAL CHEMIST ? [facility] ?[address] [place], [place] ??[address] ? Test Date: ?2021-02-20 Pat Name: ? RAKAN SHAW ?Department: ? Room: ? Gender: ? Female ? Transit Coach Operator: ?? : ?1935 ? Requested By: SHAE LEIVA Order Number: [id number] ?Reading MD: ?? Micheal Carrera ? Measurements Intervals ?[place] ? Rate: ? 79 ? P: ?65 SC: ? 168 ?QRS: ?120 QRSD: ? 135 ?T: ?64 QT: ? 455 ? QTc: ?523 ? Interpretive Statements ELECTRONIC VENTRICULAR PACEMAKER ABNORMAL RHYTHM ECG STRIAL CHEMIST Procedure Note Micheal Carrera MD - 02/25/2021 [facility], [facility] [address] [place] [address] Test Date: 2021-02-20 Pat Name: RAKAN SHAW Department: Room: Gender: Female Transit Coach Operator: : 1935 Requested By: SHAE LEIVA Order Number: [id number] Cee MD: Micheal Carrera Measurements Intervals [place] Rate: 79 P: 65 SC: 168 QRS: 120 QRSD: 135 T: 64 QT: 455 QTc: 523 Interpretive Statements ELECTRONIC VENTRICULAR PACEMAKER ABNORMAL RHYTHM ECG STRIAL CHEMIST us Shae Leiva PA-C PROCEDURES-ORDERABLE NO CH ARGE Final Result [facility] documented in this encounter Visit Diagnoses Diagnosis Paroxysmal atrial fibrillation ([facility]CC [facility]/HCC)- Primary Atrial fibrillation documented in this encounter Care Teams Sheet Rock Applier Relationship Specialty Start Date End Date Qasim Rolon DO [address] [place] [address] PCP - General FAMILY PRACTICE 3/4/20 Mary Barber MD [address] [place] [address] EP Sharepoint Architect CLINICAL CARDIAC ELECTROPHYSIOLOGY 09/15/16 Tiffany Badillo MD [address] [place] [address] Consulting Physician INTERVENTIONAL CARDIOLOGY 12/23/19 Erick Abdi MD [address] [address] Consulting Physician PAIN MANAGEMENT 09/06/20 documented as of this encounter
--- OUTSIDE RECORDS SUMMARY | 2024-01-27 07:36 | XMS_ITS | Encounter Summary ---
Author Organization [facility] Address [address] [facility] [place] [address] [place] [address] Care Team Providers Care Water Plant Operator Name Role Phone Mary Barber MD Unavailable Qasim Garrett DO Primary Care Provider [phone] Tiffany Badillo MD Unavailable [phone] Erick Abdi MD Unavailable [phone] Encounter Details Date Type Department Care Team (Latest Contact Info) Description 02/13/2021 Travel Social History Tobacco Use Types Packs/Day [...] than three times a week 03/27/2019 Attends [employer] Services Not on file 03/27 Active Member of Clubs or Organizations Not on f ile 03/27/2019 Attends Club or Organization Meetings Never 03/27/2019 Marital Status 03/27/2019 [facility] [place] of Occupat ional Health - Occupational Stress [...] COVID-19? No / Unsure 02/13/2021 1:13 PM THEOLOGY PROFESSOR documented as of this encounter Functional Status [...] st Contact Info) Description 02/15/2024 1:30 PM THEOLOGY PROFESSOR Office Visit [facility] [address] [place] [address] Tyrell Leiva, PA-C [address] [place] [address] 02/15/2024 1:30 PM THEOLOGY PROFESSOR Allied Health/Nurse Visit [facility] [address] [place] [address] Mary Barber MD [address] [place] [address] 03/15/2024 11:15 AM THEOLOGY PROFESSOR [facility] Visit [facility] [place] [address] [place] [address] Jim Tamez MD [address] [place] [address] 05/16/2024 1:15 AM CDT Allied Health/Nurse Visit [facility] [address] [place] [address] Mary Barber MD [address] [place] [address] 09/07/2024 9:00 AM CDT Office Visit [facility] [place] [address] [place] [address] Tiffany Badillo MD [address] [place] [address] documented as of this encounter Visit Diagnoses Not on filedocumented in this encounter Care Teams Water Plant Operator Relationship Specialty Start Date End Date Qasim Garrett DO [address] [place] [address] PCP - General FAMILY PRACTICE 04/13/19 Mary Barber MD [address] [place] [address] EP Pocketed Spring Assembler CLINICAL CARDIAC ELECTROPHYSIOLOGY 09/15/16 Tiffany Badillo MD [address] [place], [place] [address] Consulting Physician INTERVENTIONAL CARDIOLOGY 12/23/19 Erick Abdi MD [address] [id number] Consulting Physician PAIN MANAGEMENT 09/06/20 documented as of this encounter
--- OUTSIDE RECORDS SUMMARY | 2024-01-27 07:37 | XMS_ITS | Encounter Summary ---
Author Organization [facility] Address [address] [place] [address] [place] [address] Care Team Providers Care Funeral Arrangement Director Name Role Phone Mary Barber MD Unavailable Qasim Garrett DO Primary Care Provider [phone] Tiffany Badillo MD Unavailable [phone] Erick Abdi MD Unavailable [phone] Reason for Visit * Reason Onset Date Comments Echo 12/19/2020 echo scheduled a t [facility] Encounter Details Date Type Department Care Team (Late st Contact Info) Description 12/19/2020 Telephone [facility] ield [address] [place] [address] Mary Barber MD [address] [place] [address] Echo (echo scheduled at [facility] ) Social History Tobacco Use Types Packs/Day [...] than three times a week 03/27/2019 Attends Denominational Services Not on file 03/27 Active Member of Clubs or Organizations Not on f ile 03/27/2019 Attends Club or Organization Meetings Never 03/27/2019 Marital Status 03/27/2019 [facility] of Occupat ional Health - Occupational Stress [...] have Coronavirus / COVID-19? No / Unsure 12/13/2020 2:19 PM CDT documented as of this encounter Functional [...] documented in this encounter Progress Notes * Catalina Magaña - 12/19/2020 1:40 PM CST Called pts daughter/RENZO Erika Juan scheduled on 02/13/21 at 1:30 at [facility] She v/u and no letter is needed She is aware to arrive 15 mins prior EXECUTIVE documented in this encounter Plan of Treatment Upcoming Encounters Date Type Department Care Team (Late st Contact Info) Description 02/15/2024 1:30 PM SEO EXECUTIVE Office Visit [facility] ld [address] [place] [address] Tyrell Leiva, PA-C [address] [place] [address] 02/15/2024 1:30 PM SEO EXECUTIVE Allied Health/Nurse Visit [facility] ld [address] [place] [address] Mary Barber MD [address] [place] [address] 03/15/2024 11:15 AM SEO EXECUTIVE Office Visit [facility] [place] [address] Jim Tamez MD [address] [place] [address] 05/16/2024 1:15 AM CDT Allied Health/Nurse Visit [facility] [address] [place] [address] Mary Barber MD [address] [place] [address] 09/07/2024 9:00 AM CDT Office Visit [facility] [place] [address] Tiffany Badillo MD [address] [place], [place] [address] documented as of this encounter Visit Diagnoses Not on filedocumented in this encounter Care Teams Funeral Arrangement Director Relationship Specialty Start Date End Date Qasim Garrett DO [address] [place] [address] PCP - General FAMILY PRACTICE 04/13/19 Mary Barber MD [address] [place] [address] EP Braddisher CLINICAL CARDIAC ELECTROPHYSIOLOGY 09/15/16 Tiffany Badillo MD [address] [place], [place] [address] Consulting Physician INTERVENTIONAL CARDIOLOGY 12/23/19 Erick Abdi MD [address] [place] [address] Consulting Physician PAIN MANAGEMENT 09/06/20 documented as of this encounter
--- OUTSIDE RECORDS SUMMARY | 2024-01-27 07:37 | XMS_ITS | Encounter Summary ---
Author Organization [facility] Address [address] [facility]. [place], [place] [address] [place] [address] Care Team Providers Care Pharmacy Aide Name Role Phone Mary Barber MD Unavailable Qasim Garrett DO Primary Care Provider [phone] Tiffany Badillo MD Unavailable [phone] Erick Abdi MD Unavailable [phone] Reason for Referral * Imaging (Routine) - Closed Specialty Diagnoses / Procedures Referred By Contac t Referred To Contact RADIOLOGY Diagnoses Paroxysmal atrial fibrillation ([facility] HHS/HCC) Procedures USE ECHOCARDIOGRAM Tyrell Leiva PA-C [address] [place] [address] Phone: tel: fax: Referral ID Status Reason Start Date Expiration Date Visits Re quested Visits Authorized [id number] Closed 12/13/2020 01/13/2022 1 1 MECHANICS TEACHER Reason for Visit * Imaging (Routine) - Closed Specialty Diagnoses / Procedures Referred By Contac t Referred To Contact RADIOLOGY Diagnoses Paroxysmal atrial fibrillation ([facility] HHS/HCC) Procedures USE ECHOCARDIOGRAM Tyrell Leiva PA-C [address] [place] [address] Phone: tel: fax: Referral ID Status Reason Start Date Expiration Date Visits Re quested Visits Authorized [id number] Closed 12/13/2020 01/13/2022 1 1 Encounter Details Date Type Department Care Team (Latest Contact Info) Description 02/13/2021 1:14 PM AUTO MECHANICS TEACHER - 02/13/2021 11:59 PM AUTO MECHANICS TEACHER Hospital Encounter [facility] [address] [place] [address] Tyrell Leiva, GREYC [address] [place] [address] Discharge Disposition: Home or Self Care (Routine [...] Organization Meetings Never 03/27/2019 Marital Status 03/27/2019 [facility] of Occupat ional Health - Occupational Stress [...] COVID-19? No / Unsure 02/13/2021 1:13 PM AUTO MECHANICS TEACHER documented as of this encounter Functional Status [...] Pop RN Active documented in this encounter Medications at Time of Discharge aspirin 81 MG tablet Take 1 tablet (81 mg total) by mouth daily. 04/29/2006 levothyroxine 100 MCG tablet Take 1 tablet (100 mcg total) by mouth daily. 11/07/2019 pantoprazole EC 40 MG tablet Take 1 tablet (40 mg total) by mouth daily. 12/13/2019 amiodarone 200 MG tablet Take 1 tablet (200 mg total) by mouth daily. 90 tablet 3 10/01/2020 03/20/2021 apixaban 5 MG tablet Take 1 tablet (5 mg total) by mouth 2 (two) times daily. 60 tablet 3 01/09/2021 05/07/2021 FUROSEMIDE 20 MG tablet TAKE 1 TABLET BY MOUTH EVERY DAY 90 tablet 3 08/14/2020 09/02/2021 gabapentin 300 MG capsule 01/08/2021 03/20/2021 loteprednol 0.5 % ophthalmic suspension Place 1 drop into the right eye 4 (four) times daily. 10/10/2020 03/20/2021 metoprolol succinate ER 50 MG 24 hr tablet Take 1 tablet (50 mg total) by mouth daily. 90 tablet 3 02/23/2020 06/03/2021 ROSUVASTATIN 40 MG tablet TAKE 1 TABLET AT BEDTIME 90 tablet 3 10/01/2020 09/19/2021 sacubitril-valsar lundberg (ENTRESTO) 24-26 MG tablet Take 1 tablet by mouth 2 (two) times daily. 60 tablet 11 11/20/2020 10/23/2021 SPIRONOLACTONE 25 MG tablet TAKE 1/2 TABLET BY MOUTH EVERY DAY 45 tablet 3 08/06/2020 07/29/2021 documented as of this encounter Plan of Treatment Upcoming Encounters Date Type Department Care Team (Late st Contact Info) Description 02/15/2024 1:30 PM AUTO MECHANICS TEACHER Office Visit [facility] ld [address] [place] [address] Tyrell Leiva, PA-C [address] [place] [address] 02/15/2024 1:30 PM AUTO MECHANICS TEACHER Allied Health/Nurse Visit [facility] ld [address] [place] [address] Mary Barber MD [address] [place] [address] 03/15/2024 11:15 AM AUTO MECHANICS TEACHER Office Visit [facility] [place] [address] Jim Tamez MD [address] [place], [place] [address] 05/16/2024 1:15 AM CDT Allied Health/Nurse Visit [facility] [address] [place] [address] Mary Barber MD [address] [place] [address] 09/07/2024 9:00 AM CDT Office Visit [facility] [place] [address] Tiffany Badillo MD [address] [place], [place] [address] documented as of this encounter Procedures Procedure Name Priority Date/Time Associated Diagnosis Comments USE ECHOCARDIOGRAM Routine 02/13/2021 2:19 PM AUTO MECHANICS TEACHER Paroxysmal atrial fibrillation ([facility]/HCC HHS/HCC) documented in this encounter Results * USE ECHOCARDIOGRAM (02/13/2021 2:19 PM AUTO MECHANICS TEACHER) Anatomical Region Laterality Modality Cardiac Ultrasound us Tyrell Leiva PA-C ECHO Final Resu lt documented in this encounter Visit Diagnoses Diagnosis Paroxysmal atrial fibrillation (CMS/HCC HHS/HCC) Atrial fibrillation documented in this encounter Care Teams Pharmacy Aide Relationship Specialty Start Date End Date Qasim Garrett DO [address] [place] [address] PCP - General FAMILY PRACTICE 04/13/19 Mary Barber MD [address] [place] [address] EP Plant Attendant CLINICAL CARDIAC ELECTROPHYSIOLOGY 09/15/16 Tiffany Badillo MD [address] [place], [place] [address] Consulting Physician INTERVENTIONAL CARDIOLOGY 12/23/19 Erick Abdi MD [address] [place] [address] Consulting Physician PAIN MANAGEMENT 09/06/20 documented as of this encounter
--- OUTSIDE RECORDS SUMMARY | 2024-01-27 07:37 | XMS_ITS | Encounter Summary ---
Author Organization [facility] Address [address] [place] [address] [place] [address] Care Team Providers Care Hand Baseball Sewer Name Role Phone Mary Barber MD Unavailable Qasim Garrett DO Primary Care Provider Tiffany Badillo MD Unavailable [phone] Erick Abdi MD Unavailable [phone] Reason for Visit * Reason Onset Date Comments Medication Request 01/09/2021 Eliquis Encounter Details Date Type Department Care Team ([facility] Contact Info) Description 01/09[facility]2021 [facility] [address] [place] [address] Mary Barber MD [address] [place] [address] Medication Request (Eliquis) Social History Tobacco Use Types Packs/Day Years [...] encounter Progress Notes * Chanell Johnson - 01/09/2021 4:24 PM CST Called Sera at [phone]. EP HERMAN Pat sent Rx in as requested for 30-day supply w/ 3 refills since [place] [facility]. E RIGGER * Chanell Johnson - 01/09/2021 4:18 PM CST Voicemail Received Sera called from [phone] to [facility] E RIGGER documented in this encounter Plan of Treatment Upcoming Encounters Date Type Department Care Team (Late st Contact Info) Description 02/15/2024 1:30 PM STONE RIGGER Office Visit [facility] ld [address] [place] [address] Tyrell Leiva, PAHaylieC [address] [place] [address] 02/15/2024 1:30 PM STONE RIGGER Allied Health/Nurse Visit [facility] [address] [place] [address] Mary Barber MD [address] [place] [address] 03/15/2024 11:15 AM STONE RIGGER Office Visit [facility] [address] [place] [address] Jim Tamez MD [address] [place], [place] [address] 05/16/2024 1:15 AM CDT Allied Health/Nurse Visit [facility] [address] [place] [address] Mary Barber MD [address] [place] [address] 09/07/2024 9:00 AM CDT Office Visit [facility] [address] [place] [address] Tiffany Badillo MD [address] [place], [place] [address] documented as of this encounter Visit Diagnoses Not on filedocumented in this encounter Care Teams Hand Baseball Sewer Relationship Specialty Start Date End Date Qasim Garrett DO [address] [place] [address] PCP - General FAMILY PRACTICE 04/13/19 Mary Barber MD [address] [place] [address] EP Stain Wiper CLINICAL CARDIAC ELECTROPHYSIOLOGY 09/15/16 Tiffany Badillo MD [address] [place] [address] Consulting Physician INTERVENTIONAL CARDIOLOGY 12/23/19 Erick Abdi MD [address] [place] [address] Consulting Physician PAIN MANAGEMENT 09/06/20 documented as of this encounter
--- OUTSIDE RECORDS SUMMARY | 2024-01-27 07:37 | XMS_ITS | Encounter Summary ---
Author Organization [facility] Address [address] [facility] [place] [address] [place] [address] Care Team Providers Care Needle Maker Name Role Phone Mary Barber MD Unavailable Qasim Garrett DO Primary Care Provider [phone] Tiffany Badillo MD Unavailable [phone] Erick Abdi MD Unavailable [phone] Encounter Details Date Type Department Care Team (Latest Contact Info) Description 12/13/2020 Travel Social History Tobacco Use Types Packs/Day [...] than three times a week 03/27/2019 Attends [employer] Not on file 03/27 Active Member of Clubs or Organizations Not on f ile 03/27/2019 Attends Club or Organization Meetings Never 03/27/2019 Marital Status 03/27/2019 [facility] of Occupat ional Health - Occupational Stress [...] st Contact Info) Description 02/15/2024 1:30 PM ANALYTICS ARCHITECT Office Visit [facility] ld [address] [place] [address] Tyrell Leiva PAHaylieC [address] [place] [address] 02/15/2024 1:30 PM ANALYTICS ARCHITECT Allied Health/Nurse Visit [facility] [address] [place] [address] Mary Barber MD [address] [place] [address] 03/15/2024 11:15 AM ANALYTICS ARCHITECT Office Visit [facility] [place] [address] [place] [address] Jim Tamez MD [address] [place] [address] 05/16/2024 1:15 AM CDT Allied Health/Nurse Visit [facility] ld [address] [place] [address] Mary Barber MD [address] [place] [address] 09/07/2024 9:00 AM CDT Office Visit [facility] [place] [address] [place] [address] Tiffany Badillo MD [address] [place] [address] documented as of this encounter Visit Diagnoses Not on filedocumented in this encounter Care Teams Needle Maker Relationship Specialty Start Date End Date Qasim Garrett DO [address] [place] [address] PCP - General FAMILY PRACTICE 04/13/19 Mary Barber MD [address] [place] [address] EP Fruit Ii Farmworker CLINICAL CARDIAC ELECTROPHYSIOLOGY 09/15/16 Tiffany Badillo MD [address] [place], [place] [address] Consulting Physician INTERVENTIONAL CARDIOLOGY 12/23/19 Erick Abdi MD [address] [place] [address] Consulting Physician PAIN MANAGEMENT 09/06/20 documented as of this encounter
--- OUTSIDE RECORDS SUMMARY | 2024-01-27 07:38 | XMS_ITS | Encounter Summary ---
Author Organization [facility] Address [address] [facility] [place] [address] [place] [address] Care Team Providers Care Cellar Pumper Name Role Phone Mary Barber MD Unavailable Hi Rolon DO Primary Care Provider [phone] Tiffany Badillo MD Unavailable [phone] Erick Abdi MD Unavailable [phone] Reason for Referral * Imaging (Routine) - Closed Specialty Diagnoses / Procedures Referred By Contac t Referred To Contact RADIOLOGY Diagnoses Paroxysmal atrial fibrillation ([facility]/HCC [facility]) Procedures USE ECHOCARDIOGRAM Tyrell Leiva PA-C [address] [place] [address] Phone: tel: fax: Referral ID Status Reason Start Date Expiration Date Visits Re quested Visits Authorized [id number] Closed 12/13/2020 01/13/2022 1 1 Reason for Visit * Reason Comments Follow Up Encounter Details Date Type Department Care Team (Late st Contact Info) Description 12/13/2020 2:30 PM CDT Office Visit [facility] [address] [place] [address] Tyrell Leiva PA-C [address] [place] [address] Follow Up Social History Tobacco Use Types [...] Marital Status 03/27/2019 [facility] of Occupat ional Health - Occupational [...] PM CDT documented as of this encounter Last Filed Vital Signs Vital Sign Reading Time Taken Comments Blood Pressure 108/68 12/13/2020 2:21 PM CDT Pulse 79 12/13/2020 2:21 PM CDT ekg Temperature - - Respiratory Rate 17 12/13/2020 2:21 PM CDT Oxygen Saturation - - Inhaled Oxygen Concentration - - Weight 82.6 kg (182 lb) 12/13/2020 2:21 PM CDT Height 162.6 cm (5' 4 ) 12/13/2020 2:21 PM CDT Body Mass Index 31.24 12/13/2020 2:21 PM CDT documented in this encounter Functional Status [...] Status No 11/06/2020 3:38 PM CDT Ericka Ppo RN Active documented in this encounter Patient Instructions * Patient Instructions* Tyrell Leiva PA-C - 12/13/2020 2:30 PM CDT We will order an echo before next visit in [place] the day I see you or in [place] in the previous weeks. Continue all medications. documented in this encounter Progress Notes * Tyrell Leiva PA-C - 12/13/2020 2:30 PM CDT Images from the original note were not included. Cardiac Electrophysiology Clinic Note PATIENT NAME: Rakan Shaw : 1935 REFERRING PROVIDER: Hi Rolon DO PCP: HI ROLON DO Reason for Visit Atrial fibrillation, post catheter ablation of atrial fibrillation History of Present Illness Ms. Shaw is a very pleasant,??85-year-old??female??with a history of paroxysmal atrial fibrillation with rapid ventricular response, refractory??to??medical therapy.??She??underwent ablation of the AV node and implantation of a dual-chamber [employer] pacemaker in April 2006. She used to be on Coumadin for stroke prevention; however, this was stopped in 2007 due to a subdural hematoma requiring evacuation. The patient developed severe nonischemic cardiomyopathy, likely induced by right ventricular pacing, prompting upgrade of the pacemaker to a biventricular [employer] ICD in March 2013. Due to??intolerance [...] symptomatic despite adequate rate control. Electrical cardioversion was performed and the patient was started on Amiodarone thearpy. ??However,??atrial fibrillation recurred and persisted. Therefore, on 11/06/2020, the patient underwent catheter ablation of atrial fibrillation. The patient tolerated the procedure well without complications. Recommendations after ablation were for 1 month follow-up and, if remains free of atrial fibrillation, discontinue amiodarone. She presents to clinic today with her daughter. She has not had any palpitations, chest pain, dizziness or lightheadedness, presyncope or syncope. She has been compliant with all of her medications and has no bleeding issues. No heart failure symptoms of lower extremity edema, orthopnea, weight gain or cough. ECG Sinus rhythm, V pacing, 79 bpm. Device Interrogation We interrogated the device today and that showed a [employer] biventricular ICD with good battery voltage and satisfactory pacing and sensing thresholds. Underlying rhythm was sinus rhythm complete heart block. No sustained atrial or ventricular arrhythmias have been observed. A paced 3% of the time and biventricular paced 100% of the time. Last episode of atrial fibrillation 11/06/2020. Diagnosis 1. Recurrent persistent,??atrial fibrillation, refractory to Amiodarone. S/P Catheter ablation on 11/06/2020. No evidence of recurrence since that time. 2. S/P Ablation of the AV node and implantation of a dual-chamber [employer] pacemaker in April 2006. S/P Upgrade to a [employer] biventricular ICD in March 2013. 3. Chronic anticoagulation with Eliquis for DVT/PE. H/O Intolerance to Coumadin due to subdural hematoma, requiring evacuation in June 2007. 4. S/P Percutaneous ligation of left atrial appendage using LARIAT device on 10/19/2013. 5. Severe nonischemic cardiomyopathy with ejection fraction of 34%??in the past, likely induced by right ventricular pacing.?Ejection fraction was 35% on most recent echocardiogram. 6. Premature ventricular contractions.?Holter monitor in the past revealed rare PVCs. ??Device interrogation today??suggest??<1% burden. 7. 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 8. Hypothyroidism. 9. Hypertension.?? 10. No known history of coronary artery disease, diabetes, or stroke. Recommendations 1. No medications changed in clinic today. 2. Echo in [place] late February. 3. Continue remote device interrogations as scheduled. As discussed with the patient and her daughter, if she is feeling fatigued over the course of hours and atrial fibrillation is suspected, we canarrange a remote device interrogation to ensure no recurrence of atrial fibrillation as source of her fatigue. 4. Follow up in March or sooner if needed. If no atrial fibrillation is found on device interrogation, consider stopping amiodarone at that time. Medications Current Outpatient Medications: ??? amiodarone 200 [...] Types: Cigarettes Quit date: 1972 Years since quittin.8 ??? Smokeless tobacco: Never Used Substance Use Topics ??? Alcohol use: No ??? Drug use: No Family History Problem Relation Name Age of Onset ??? MT Mother ??? MT Father ??? CABG Brother ??? Stent Brother [...] Neurological: Negative for dizziness, focal weakness and weakness. Endo/Heme/Allergies: Negative for polydipsia. Does not bruise/bleed easily. Psychiatric/Behavioral: Negative for depression. The patient is not nervous/anxious. Physical Examination Vitals: 12/13/20 1421 BP: 108/68 Pulse: 79 Resp: 17 Physical Exam Constitutional: She is oriented to person, place, and time. She appears well- developed and well-nourished. No distress. HENT: Nose: No mucosal edema. Mouth/Throat: Oropharynx is clear and moist and mucous membranes are normal. No oropharyngeal exudate. Neck: No JVD present. Carotid bruit is not present. Cardiovascular: Normal rate, regular rhythm, S1 normal, S2 normal and intact distal pulses. No extrasystoles are present. Exam reveals no gallop. No murmur heard. Pulmonary/Chest: Effort normal and breath sounds normal. No respiratory distress. Abdominal: She exhibits no mass. There is no hepatosplenomegaly. There is no abdominal tenderness. Musculoskeletal: General: No deformity. Cervical back: Neck supple. Neurological: She is alert and oriented to person, place, and time. Skin: Skin is warm and dry. No erythema. Psychiatric: She has a normal mood and affect. Her behavior is normal. Thought content normal. Signed TYRELL LEIVA PA-C 12/13/2020 * Catalina Magaña - 12/13/2020 2:30 PM CDT Echo scheduled on 02/13/21 at [facility] at 1:30 TECHNOLOGY INSTRUCTOR documented in this encounter Plan of Treatment Upcoming Encounters Date Type Department Care Team (Late st Contact Info) Description 02/15/2024 1:30 PM FIRE TECHNOLOGY INSTRUCTOR Office Visit [facility] [address] [place] [address] Tyrell Leiva PA-C [address] [place] [address] 02/15/2024 1:30 PM FIRE TECHNOLOGY INSTRUCTOR Allied Health/Nurse Visit [facility] [address] [place] [address] Mary Barber MD [address] [place] [address] 03/15/2024 11:15 AM FIRE TECHNOLOGY INSTRUCTOR Office Visit [facility] [place] [address] Jim Tamez MD [address] [place] [address] 05/16/2024 1:15 AM CDT Allied Health/Nurse Visit [facility] [address] [place] [address] Mary Barber MD [address] [place] [address] 09/07/2024 9:00 AM CDT Office Visit [facility] [place] [address] Tiffany Badillo MD [address] [place], [place] [phone] documented as of this encounter Procedures Procedure Name Priority Date/Time Associated Diagnosis Comments ELECTROCARDIOGRAM (NON MIDMARK ACQUIRED) Routine 12/13/2020 2:29 PM CDT Paroxysmal atrial fibrillation ([facility]) documented in this encounter Results * USE ECHOCARDIOGRAM (02/13/2021 2:19 PM FIRE TECHNOLOGY INSTRUCTOR) Anatomical Region Laterality Modality Cardiac Ultrasound us Tyrell Leiva PA-C ECHO Final Resu lt * ELECTROCARDIOGRAM (12/13/2020 2:29 PM CDT) 12/13/2020 2:29 PM CDT Narrative [facility] - 12/19/2020 8:20 AM FIRE TECHNOLOGY INSTRUCTOR ? [facility] ?[address], [place] ??[address] ? Test Date: ?2020-12-13 Pat Name: ? RAKAN SHAW ?Department: ? Room: ? Gender: ? Female ? Sports Manager: ?? JLB/ : ?1935 ? Requested By: TYRELL LEIVA Order Number: [id number] ?Reading MD: ?? Maldonado Mcgee ? Measurements Intervals ?Sigurd ? Rate: ? 79 ? P: ?70 IL: ? 165 ?QRS: ?128 QRSD: ? 140 ?T: ?52 QT: ? 458 ? QTc: ?526 ? Interpretive Statements ELECTRONIC PACEMAKER with nsr, atrial tracking and vent pacing ABNORMAL RHYTHM ECG TECHNOLOGY INSTRUCTOR Procedure Note Maldonado Mcgee MD - 12/19/2020 [facility] [address] [place] [address] Test Date: 2020-12-13 Pat Name: RAKAN SHAW Department: Room: Gender: Female Sports Manager: HOLLY/ : 1935 Requested By: TYRELL LEIVA Order Number: [id number] Reading MD: Maldonado Mcgee Measurements Intervals Sigurd Rate: 79 P: 70 [place]: 165 QRS: 128 QRSD: 140 T: 52 QT: 458 QTc: 526 Interpretive Statements ELECTRONIC PACEMAKER with nsr, atrial tracking and vent pacing ABNORMAL RHYTHM ECG TECHNOLOGY INSTRUCTOR us Tyrell Leiva PA-C PROCEDURES-ORDERABLE NO CH ARGE Final Result Performing Organization Address City/State/[facility] Co de Phone Number [facility] documented in this encounter Visit Diagnoses Diagnosis Paroxysmal atrial fibrillation (CMS/HCC HHS/HCC)- Primary Atrial fibrillation documented in this encounter Care Teams Cellar Pumper Relationship Specialty Start Date End Date Hi Rolon DO [address] [place] [address] PCP - General FAMILY PRACTICE 04/13/19 Mary Barber MD [address] [place] [phone] EP Erp Developer CLINICAL CARDIAC ELECTROPHYSIOLOGY 09/15/16 Tiffany Badillo MD [address] [place] [address] 959781 Consulting Physician INTERVENTIONAL CARDIOLOGY 12/23/19 Erick Abdi MD [address] [place] [address] [id number] Consulting Physician PAIN MANAGEMENT 09/06/20 documented as of this encounter
--- OUTSIDE RECORDS SUMMARY | 2024-01-27 07:38 | XMS_ITS | Encounter Summary ---
Author Organization [facility] Address [address] [place] [address] [place] [address] Care Team Providers Care Cigar Tobacco Rehandler Name Role Phone Mary Barber MD Unavailable Qasim Garrett DO Primary Care Provider [phone] Tiffany Badillo MD Unavailable [phone] Erick Abdi MD Unavailable [phone] Encounter Details Date Type Department Care Team (Late st Contact Info) Description 11/20/2020 Orders Only [facility] [address] [place] [address] Cony Wolf, RN Social History Tobacco Use Types Packs/Day [...] than three times a week 03/27/2019 Attends Yazidism Services Not on file 03/27 Active Member of Clubs or Organizations Not on f ile 03/27/2019 Attends Club or Organization Meetings Never 03/27/2019 Marital Status 03/27/2019 [facility] of Occupat ional Health - Occupational Stress [...] have Coronavirus / COVID-19? No / Unsure 11/06/2020 8:04 AM CDT documented as of this encounter [...] st Contact Info) Description 02/15/2024 1:30 PM TORCH SHEARER Office Visit [facility] [address] [place] [address] Tyrell Leiva, PAHaylieC [address] [place] [address] 02/15/2024 1:30 PM TORCH SHEARER Allied Health/Nurse Visit [facility] [address] [place] [address] Mary Barber MD [address] [place] [address] 03/15/2024 11:15 AM TORCH SHEARER Office Visit [facility] [place] [address] [place] [address] Jim Tamez MD [address] [place] [address] 05/16/2024 1:15 AM CDT Allied Health/Nurse Visit [facility] [address] [place] [address] Mary Barber MD [address] [place] [address] 09/07/2024 9:00 AM CDT Office Visit [facility] [place] [address] [place] [address] Tiffany Badillo MD [address] [place] [address] documented as of this encounter Visit Diagnoses Not on filedocumented in this encounter Care Teams Cigar Tobacco Rehandler Relationship Specialty Start Date End Date Qasim Garrett DO [address] [place] [address] PCP - General FAMILY PRACTICE 04/13/19 Mary Barber MD [address] [place] [address] EP Funeral Assistant CLINICAL CARDIAC ELECTROPHYSIOLOGY 09/15/16 Tiffany Badillo MD [address] [place] [address] Consulting Physician INTERVENTIONAL CARDIOLOGY 12/23/19 Erick Abdi MD [address] [address] Consulting Physician PAIN MANAGEMENT 09/06/20 documented as of this encounter
--- OUTSIDE RECORDS SUMMARY | 2024-01-27 07:39 | XMS_ITS | Encounter Summary ---
Author Organization [facility] Address [address] [facility] [place] [address] [place] [address] Care Team Providers Care Staffing Program Manager Name Role Phone Mary Barber MD Unavailable Qasim Garrett DO Primary Care Provider [phone] Tiffany Badillo MD Unavailable [phone] Erick Abdi MD Unavailable [phone] Reason for Visit * Reason Onset Date Comments Problem 11/20/2020 Encounter Details Date Type Department Care Team (Late st Contact Info) Description 11/20/2020 Telephone [facility] [address] [place] [address] Tiffany Badillo MD [address] [place] [address] Problem Social History Tobacco Use Types Packs/Day [...] Organization Meetings Never 03/27/2019 Marital Status 03/27/2019 [facility] of Occupat ional Health - Occupational [...] documented in this encounter Progress Notes * Cony Claudia Wolf - 11/20/2020 1:45 PM CDT Sera aware Entresto is to be continued and I escribed it to [facility]. * Gmóez Guevara RN - 11/20/2020 1:29 PM CDT Pt called, sts she tried to get Entresto refill and pharmacy told her it was cancelled. Reviewed EMR. Pt was discharged from [facility] on 11/07, had afib ablation by Dr. Barber. Discharge summary does not list Entresto as a medication to continue. Should pt still be on Entresto? If so, she needs new script sent to [facility] in [place]. Please call her to let her know documented in this encounter Plan of Treatment Upcoming Encounters Date Type Department Care Team (Late st Contact Info) Description 02/15/2024 1:30 PM EXTRAS CASTING DIRECTOR Office Visit [facility] [address] [place] [address] Tyrell Leiva PA-C [address] [place] [address] 02/15/2024 1:30 PM EXTRAS CASTING DIRECTOR Allied Health[facility]Nurse [facility] [address] [place] [address] Mary Barber MD [address] [place] [address] 03/15/2024 11:15 AM EXTRAS CASTING DIRECTOR Office Visit [facility] [address] [place] [address] Jim Tamez MD [address] [place], [place] [address] 05/16/2024 1:15 AM CDT Allied Health/Nurse Visit [facility] [address] [place] [address] Mary Barber MD [address] [place] [address] 09/07/2024 9:00 AM CDT Office Visit [address] [place] [address] Tiffany Badillo MD [address] [place], [place] [address] documented as of this encounter Visit Diagnoses Not on filedocumented in this encounter Care Teams Staffing Program Manager Relationship Specialty Start Date End Date Qasim Garrett DO [address] [place] [address] PCP - General FAMILY PRACTICE 04/13/19 Mary Barber MD [address] [place] [phone] EP Data Specialist CLINICAL CARDIAC ELECTROPHYSIOLOGY 09/15/16 Tiffany Badillo MD [address] [place], [place] [address] Consulting Physician INTERVENTIONAL CARDIOLOGY 12/23/19 Erick Abdi MD [address] [address] Consulting Physician PAIN MANAGEMENT 09/06/20 documented as of this encounter
--- OUTSIDE RECORDS SUMMARY | 2024-01-27 07:40 | XMS_ITS | Encounter Summary ---
Author Organization [facility] Address [address] [facility] [place] [address] [place] [address] Care Team Providers Care Manager Consumer Name Role Phone Mary Barber MD Unavailable Qasim Garrett DO Primary Care Provider [phone] Tiffany Badillo MD Unavailable [phone] Erick Abdi MD Unavailable [phone] Reason for Visit * Reason Onset Date Comments Reschedule 11/15/2020 due to change in provider schedule Encounter Details Date Type Department Care Team (Late st Contact Info) Description 11/15/2020 [facility] [address] [place] [address] Mary Barber MD [address] [place] [address] Reschedule (due to change in provider schedule) Social History Tobacco Use Types Packs/Day Years [...] encounter Progress Notes * Catalina Magaña - 11/15/2020 1:57 PM CDT Called pt, pt rescheduled to 12/13/20 with Edgardo Leiva at 2:30 Pt v/u and no letter is needed BS reps notified documented in this encounter Plan of Treatment Upcoming Encounters Date Type Department Care Team (Late st Contact Info) Description 02/15/2024 1:30 PM BATCH ANALYST Office Visit [facility] [address] [place] [address] Tyrell Leiva, PA-C [address] [place] [address] 02/15/2024 1:30 PM BATCH ANALYST Allied Health/Nurse Visit [facility] [address] [place] [address] Mary Barber MD [address] [place] [address] 03/15/2024 11:15 AM BATCH ANALYST Office Visit [facility] [place] [address] Jim Tamez MD [address] [place] [address] 05/16/2024 1:15 AM CDT Allied Health/Nurse Visit [facility] [address] [place] [phone] Mary Barber MD [address] [place] [address] 09/07/2024 9:00 AM CDT Office Visit [facility] [place] [address] Tiffany Badillo MD [address] [place], [place] [address] documented as of this encounter Visit Diagnoses Not on filedocumented in this encounter Care Teams Manager Consumer Relationship Specialty Start Date End Date Qasim Garrett DO [address] [place] [address] PCP - General FAMILY PRACTICE 04/13/19 Mary Barber MD [address] [place] [phone] EP Turret Punch Press Operator CLINICAL CARDIAC ELECTROPHYSIOLOGY 09/15/16 Tiffany Badillo MD [address] [place] [address] Consulting Physician INTERVENTIONAL CARDIOLOGY 12/23/19 Erick Abdi MD [address] [place] [address] Consulting Physician PAIN MANAGEMENT 09/06/20 documented as of this encounter
--- OUTSIDE RECORDS SUMMARY | 2024-01-27 07:41 | XMS_ITS | Encounter Summary ---
Author Organization [facility] Address [address] [place] [address] [place] [address] Care Team Providers Care Director Global Intelligence Name Role Phone Mary Barber MD Unavailable Hi Rolon DO Primary Care Provider [phone] Tiffany Badillo MD Unavailable [phone] Erick Abdi MD Unavailable [phone] Reason for Referral * Imaging (Routine) - Closed Specialty Diagnoses / Procedures Referred By Patrizia serra Referred To Contact RADIOLOGY Diagnoses Paroxysmal atrial fibrillation (CMS/HCC HHS/HCC) Procedures XA A-FIB ABLATION Mary Barber MD [address] [place] [address] Phone: tel: fax: Referral ID Status Reason Start Date Expiration Date Visits Re quested Visits Authorized [id number] Closed 10/16/2020 11/16/2021 1 1 Reason for Visit * Auth/Cert Specialty Diagnoses / Procedures Referred By Patrizia serra Referred To Contact Diagnoses Paroxysmal atrial fibrillation (CMS/HCC HHS/HCC) A-fib Procedures XA A-FIB ABLATION Referral ID Status Reason Start Date Expiration Date Visits Re quested Visits Authorized [id number] 1 1 Encounter Details Date Type Department Care Team (Latest Contact Info) Description 11/06/2020 8:06 AM CDT - 11/07/2020 12:15 PM CDT Hospital Encounter [facility] [address] [place] [address] Mary Barber MD [address] [place] [address] Dahiana Mary MD,PHD [address] [facility] [address] [place] [address] Discharge Disposition: Home or Self Care (Routine [...] than three times a week 03/27/2019 Attends [employer] Services Not on file 03/27 Active Member of Clubs or Organizations Not on f ile 03/27/2019 Attends Club or Organization Meetings Never 03/27/2019 Marital Status 03/27/2019 [facility] - Occupational Stress [...] Sign Reading Time Taken Comments Blood Pressure 103/64 11/07/2020 7:48 AM CDT Pulse 77 11/07/2020 7:48 AM CDT Temperature 37 ??C (98.6 ??F) 11/07/2020 7:48 AM CDT Respiratory Rate 20 11/07/2020 7:48 AM CDT Oxygen Saturation 92% 11/07/2020 7:48 AM CDT Inhaled Oxygen Concentration - - Weight 85.3 kg (188 lb 0.8 oz) 11/07/2020 7:48 A M CDT Height 162.6 cm (5' 4 ) 11/06/2020 8:51 AM CDT Body Mass Index 32.28 11/06/2020 8:51 AM CDT documented in this encounter Functional Status * Question Answer Date of Assessment Author Status Do you have serious difficulty walking or climbing stairs? No 11/06/2020 3:38 PM CDT Ericka Pop, RN Activ e * Question Answer Date of Assessment Author Status Do you have difficulty dressing or bathing? No 11/06/2020 3:38 PM CDT Ericka Pop RN A ctive Because of a physical, mental, or emotional condition, do you have difficulty doing errands alone such as visiting a doctor's office or shopping? No 11/06/2020 3:38 PM CDT Ericka Pop RN Active * RETIRED Are you deaf or do [...] as of this encounter Mental Status * Question Answer Entry Date Author Status Because of a physical, mental, or emotional condition, do you have serious difficulty concentrating, remembering, or making decisions? No 11/06/2020 3:38 PM Ericka Hayes RN A ctive * Because of a physical, mental, or emotional condition, do you have serious difficulty concentrating, remembering, or making decisions? Answer Entry Date Author Status No 11/06/2020 3:38 PM Ericka Hayes RN Active documented in this encounter Discharge Summaries * Mary Barber MD - 11/07/2020 7:10 AM CDT Images from the original note were not included. Discharge Summary PATIENT NAME: Sera Shaffer : 1935 REFERRING PROVIDER: Mary Barber MD PCP: HI ROLON DO Admit Date: 11/06/2020 8:06 AM Discharge Date: 11/07/2020 Discharge Physician: MARY BARBER MD Discharge Diagnosis 1. Recurrent persistent,??atrial fibrillation, refractory to Amiodarone. S/P Catheter ablation on 11/06/2020. 2. S/P Ablation of the AV node and implantation of a dual-chamber [employer] pacemaker in April 2006. S/P Upgrade to a [employer] biventricular ICD in March 2013. 3. Chronic anticoagulation with Eliquis for DVT/PE. H/O Intolerance to Coumadin due to subdural hematoma, requiring evacuation in June 2007. 4. S/P Percutaneous ligation of left atrial appendage using LARIAT device on 10/19/2013. 5. Severe nonischemic cardiomyopathy with ejection fraction of 34%??in the past, likely induced by right ventricular pacing.?Ejection fraction was 45% on most recent echocardiogram. 6. Premature ventricular contractions.?Holter monitor in the past revealed rare PVCs. ??Device interrogation today??suggest??8%??burden of PVCs. 7. 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 8. Hypothyroidism 9. Hypertension.?? 10. No known history of coronary artery disease, diabetes, or stroke. Hospital Course Ms. Shaffer is a very pleasant,??85-year-old??female??with a history of paroxysmal atrial fibrillation with rapid ventricular response, refractory??to??medical therapy.??She??underwent ablation of the AV node and implantation of a dual-chamber [employer] pacemaker in April 2006. She used to be on Coumadin for stroke prevention; however, this was stopped in 2007 due to a subdural hematoma requiring evacuation. The patient developed severe nonischemic cardiomyopathy, likely induced by right ventricular pacing, prompting upgrade of the pacemaker to a biventricular [employer] ICD in March 2013. Due to??intolerance [...] patient tolerated the procedure well without complications. The patient is being discharged today on her same home medications, and will be followed in clinic in 1 month and earlier as needed. If the patient remains free of atrial arrhythmias over the next 3 months, then will stop Amiodarone. Discharge Medications Medication List ASK your doctor about these medications amiodarone 200 MG tablet Commonly known as: PACERONE Take 1 tablet (200 mg total) by mouth daily. apixaban 5 MG tablet Commonly known as: ELIQUIS Take 1 tablet (5 mg total) by mouth 2 (two) times daily. aspirin 81 MG tablet furosemide 20 MG tablet Commonly known as: LASIX TAKE 1 TABLET BY MOUTH EVERY DAY levothyroxine 100 MCG tablet Commonly known as: SYNTHROID loteprednol 0.5 % ophthalmic suspension Commonly known as: LOTEMAX metoprolol succinate ER 50 MG 24 hr tablet Commonly known as: TOPROL-XL Take 1 tablet (50 mg total) by mouth daily. pantoprazole EC 40 MG tablet Commonly known as: PROTONIX rosuvastatin 40 MG tablet Commonly known as: CRESTOR TAKE 1 TABLET AT BEDTIME spironolactone 25 MG tablet Commonly known as: ALDACTONE TAKE 1/2 TABLET BY MOUTH EVERY DAY Signed MARY BARBER MD documented in this encounter Discharge Instructions * Discharge Instructions* Azeb Hines RN - 11/07/2020 8:31 AM CDT POST ABLATION DISCHARGE INSTRUCTIONS What to Expect After the Procedure? You may feel tired, slightly uncoordinated, and need additional sleep as a result of the medications you received during the procedure. ??? It???s common to have soreness, mild swelling, and bruising at the puncture sites in the groins. You may use cold packs and may take Tylenol if needed for discomfort. However, persistent pain (for more than a few days) or increasing swelling or bleeding are causes for concern, and if they do occur please your EP physician. ??? Some people experience palpitations while the heart is healing from ablation. This may feel like the heart is racing or skipping beats. If these symptoms do not resolve after a few days or if they become intolerable or persistent call your EP physician. ??? You may have some mild chest discomfort for the next few days. Most often, it hurts to take a deep breath or cough. This is due to inflammation from your ablation and will generally resolve within 48 hours. You may take Tylenol if needed for discomfort. If the pain persists beyond the first couple of days or becomes severe, please call your EP physician. ??? Fluid retention can occur due to the fluids you were given during your ablation. Symptoms of fluid retention would be swelling of the lower legs and feet, trouble breathing when walking or layingdown, or weight gain over 3 pounds in a day. If you develop these symptoms, please call your EP physician. Your physician may choose to prescribe a water pill for a few days if needed. Activity Restrictions ??? You may resume non-strenuous activities including work as soon as you feel completely alert, usually by the next day or so. ??? Take it easy for a few days after your procedure. 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 ??? You should be able to resume all normal activities (gradually, as tolerated) and exercise afterthe first week. ??? Avoid heavy lifting (greater than 15-20 pounds), straining, heavy housework, strenuous activity, and exercise for 7 days after the procedure. ??? You may shower the following day after your procedure. Wash groin puncture sites daily with soap and water then tap dry. Do not soak in a bathtub, hot tub or swim for 7 days. ??? If you were driving prior to your procedure, you can usually resume driving in 1 to 2 days or once you feel back to normal. If you have a history of passing out, there may be restrictions unrelated to your procedure. ??? You may participate in sexual activity unless otherwise instructed. ??? Ask your physician when you can return to work. Groin Wound Care ??? You will have puncture sites in one or both of your groins. During the procedure, thin flexibletubes (called catheters ) were inserted into blood vessels in one or both of your groins and threaded through the vein into the heart. ??? Some soreness and slight swelling are expected. You may use cold packs and may take Tylenol if needed for discomfort. Severe pain is not expected and if it occurs, please call your EP physician. ??? Puncture sites in the groins will heal naturally within a week. You may also notice a small knot at the site, which is a normal part of the healing process. ??? No stitches are used. A small sterile dressing (bandage) will cover the insertion site. You canremove the bandage after you go home. ??? You may shower the day after the procedure. Wash gently with soap and water each day. Do not scrub the area. Pat dry with a clean towel to prevent infection. Do not take a tub bath, swim or use ahot tub for at least 1 week or until the groin site is completely healed. ??? Do not apply lotions or powders to the incision area until the groin site is completely healed. ??? Check your incision for signs of bleeding or infection every day for a week. ??? Check for Bleeding: o Bruising is also common, and bruising will follow gravity, so it???s common for [id number] alvares to move down the leg. It is not uncommon for an occasional small bump or knot to develop in the groin area. You can experience some soreness in the groin area for several days. o Active bleeding or worsening swelling in the groin region is not expected and if it occurs, please call your EP physician. o Small amounts of oozing may be controlled by applying direct pressure to the site for 5-10 minutes with a piece of gauze or Band-Aid. o If any bleeding at the insertion site occurs, immediately lie down and apply continuous pressure over the insertion site for at least 10 minutes. If bleeding cannot be controlled, call 911 or your local emergency number for assistance. ??? Check for Infection: o Increased pain, swelling, redness, drainage, or fever can be a sign of infection. If you develop any of these problems, call your EP physician or seek immediate medical attention. Call Immediately for the Following ??? Increasing pain, bleeding, or swelling at the groin wound area. ??? Increasing chest pain or shortness of breath. ??? Dizziness or fainting. ??? Fever above 100.4??F (38??C). Medications ??? There may be changes to your medications as a result of the ablation procedure, so be sure to go over the medication instructions before you are discharged. ??? Take your medications exactly as directed. Don't skip doses (unless instructed by your physician to do so). ??? If you take blood thinning medicines (Coumadin/Warfarin, Eliquis, Pradaxa, Xarelto, Aspirin, Plavix), it is important to continue taking the medicines as scheduled, unless instructed otherwise. ??? If you take blood thinning medicines, do NOT take ibuprofen (brand name Motrin or Advil) or NSAID medicines, such as Aleve, unless instructed otherwise. Future Appointments Your EP doctor's office will mail a letter for any future follow up appointments. It is important that we see you in follow up. If you have any questions, please call our office. documented in this encounter Medications at Time [...] 2 (two) times daily. 60 tablet 3 09/03/2020 01/09/2021 FUROSEMIDE 20 MG tablet TAKE 1 TABLET BY MOUTH EVERY DAY 90 tablet 3 08/14/2020 09/02/2021 loteprednol 0.5 % ophthalmic suspension Place 1 drop into the right eye 4 (four) times daily. 10/10/2020 03/20/2021 metoprolol succinate ER 50 MG 24 hr tablet Take 1 tablet (50 mg total) by mouth daily. 90 tablet 3 02/23/2020 06/03/2021 ROSUVASTATIN 40 MG tablet TAKE 1 TABLET AT BEDTIME 90 tablet 3 10/01/2020 09/19/2021 SPIRONOLACTONE 25 MG tablet TAKE 1/2 TABLET BY MOUTH EVERY DAY 45 tablet 3 08/06/2020 07/29/2021 documented as of this encounter H&P Notes * Mary Barber MD - 11/06/2020 10:35 AM CDT HISTORY AND PHYSICAL INTERVAL NOTE: [...] during recuperation were discussed with the patient/family/personal shared services 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. Reasonable alternatives to the patient's proposed procedure/surgery including benefits, risks, and side effects related to the alternatives and the risks related to not receiving the proposed care were also discussed with the patient/family/personal shared services 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. Questions were answered and the patient /family/personal shared services 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 verbalized understanding and desires to proceed. Source Note - Tyrell Leiva PA-C - 10/31/2020 9:00 AM CDT Images from the original note were not included. Cardiac Electrophysiology Clinic Note PATIENT NAME: Sera Shaffer : 1935 REFERRING PROVIDER: Hi Rolon DO PCP: HI ROLON DO Reason for Visit Atrial fibrillation with failed cardioversion, pre-catheter ablation of atrial fibrillation History of Present Illness Ms. Shaffer is a very pleasant,??85-year-old female with a history of paroxysmal atrial fibrillation with rapid ventricular response, refractory??to??medical therapy.??She??underwent ablation of the AV node and implantation of a dual- chamber [employer] pacemaker in April 2006. She used to beon Coumadin for stroke prevention; however, this was stopped in 2007 due to a subdural hematoma requiring evacuation. The patient developed severe nonischemic cardiomyopathy, likely induced by right ventricular pacing, prompting upgrade of the pacemaker to a biventricular [employer] ICD in March 2013. ?? Due to intolerance to Coumadin therapy secondary to intracranial bleeding, the patient underwent percutaneous ligation of the left atrial appendage using a Lariat device on 10/19/2013.??She??tolerated the procedure well without complications. ?? In January 2019, she fell and injured her ankle requiring surgery. Several days after surgery, shedeveloped DVT and saddle pulmonary embolism. She was started on Eliquis. Dose of Eliquis was later reduced to 2.5 mg PO BID. ?? On 10/04/20, electrical cardioversion was attempted. A 200 J biphasic synchronized shock was delivered and successfully restored normal sinus rhythm at 80 bpm. However, atrial fibrillation recurred within a few seconds. A second similar shock was followed by the same outcome. The patient tolerated the procedure well without complications. Catheter ablation of atrial fibrillation was recommended. ECG Atrial fibrillation with Vpacing 72 BPM. Diagnosis 1. Paroxysmal, and now persistent, atrial fibrillation with rapid ventricular response, refractory to medical therapy. Status post ablation of the AV node and implantation of a dual-chamber [employer] pacemaker in April 2006. Atrial fibrillation has been persistent since April 2020. 2. Status post upgrade of pacemaker to a [employer] biventricular ICD in March 2013. Device is of normal function in clinic today. 3. Intolerance to Coumadin due to subdural hematoma, requiring evacuation in June 2007. 4. Status post percutaneous ligation of left atrial appendage using LARIAT device on 10/19/2013. 5. Severe nonischemic cardiomyopathy with ejection fraction of 34%??in the past, likely induced by right ventricular pacing.?Ejection fraction was 45% on most recent echocardiogram. 6. Premature ventricular contractions.?Holter monitor in the past revealed rare PVCs. ??Device interrogation today??suggest 8% burden of PVCs. 7. 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 8. Chronic anticoagulation with Eliquis for DVT/PE. 9. Hypertension. 10??Hypothyroidism. 11. No known history of coronary artery disease, diabetes, or stroke. Recommendations 1. Continue Eliquis for stroke prevention. 2. Continue amiodarone and consider discontiuing amiodarone at follow-up post catheter ablation. 3. Proceed with catheter ablation of atrial fibrillation. Rationale for procedure, risks and benefits described to the patient. She wishes to proceed. Medications Current Outpatient Medications: ??? amiodarone 200 MG tablet, Take 1 tablet (200 mg total) by mouth daily., Disp: 90 tablet, Rfl: 3 ??? apixaban 5 MG tablet, Take 1 tablet (5 mg total) by mouth 2 (two) times daily., Disp: 60 tablet, Rfl: 3 ??? aspirin 81 MG tablet, Take by mouth daily., Disp: , Rfl: ??? FUROSEMIDE 20 MG tablet, TAKE 1 TABLET BY MOUTH EVERY DAY, Disp: 90 tablet, Rfl: 3 ??? levothyroxine 100 MCG tablet, Take 100 mcg by mouth daily., Disp: , Rfl: ??? metoprolol succinate ER 50 MG 24 hr tablet, Take 1 tablet (50 mg total) by mouth daily., Disp: 90 tablet, Rfl: 3 ??? Multiple Vitamins-Minerals (CENTRUM ADULTS OR), Take 1 tablet by mouth daily., Disp: , Rfl: ??? pantoprazole EC 40 MG tablet, Take 1 tablet by mouth daily., Disp: , Rfl: ??? ROSUVASTATIN 40 MG tablet, TAKE 1 TABLET AT BEDTIME, Disp: 90 tablet, Rfl: 3 ??? sacubitril-valsartan (ENTRESTO) 24-26 MG tablet, Take 1 tablet by mouth 2 (two) times daily., Disp: 60 tablet, Rfl: 11 ??? SPIRONOLACTONE 25 MG tablet, TAKE 1/2 TABLET BY MOUTH EVERY DAY, Disp: 45 tablet, Rfl: 3 Allergies Allergies [...] Cigarettes Quit date: 1972 Years since quittin.7 ??? Smokeless tobacco: Never Used Substance Use Topics ??? Alcohol use: No ??? Drug use: No Family History Problem Relation Name Age of Onset ??? VT Mother ??? VT Father ??? CABG Brother ??? Stent Brother ??? Stroke Paternal Grandfather ??? Heart Disease Other premature coronary heart disease Review of Systems Review of Systems Constitutional: Positive for malaise/fatigue. Negative for fever. HENT: Negative for hearing loss and nosebleeds. Eyes: Negative for blurred vision and double vision. Respiratory: Negative for hemoptysis and shortness of breath. Cardiovascular: Negative for chest pain, palpitations and leg swelling. Gastrointestinal: Negative for blood in stool, heartburn, melena and nausea. Genitourinary: Negative for dysuria and hematuria. Musculoskeletal: Negative for falls and myalgias. Neurological: Negative for dizziness and loss of consciousness. Endo/Heme/Allergies: Does not bruise/bleed easily. Psychiatric/Behavioral: Negative for depression. The patient is not nervous/anxious. Physical Examination There were no vitals filed for this visit. Physical Exam Constitutional: She is oriented to person, place, and time. She appears well- developed and well-nourished. HENT: Head: Normocephalic and atraumatic. Eyes: Pupils are equal, round, and reactive to light. EOM are normal. Neck: No JVD present. Cardiovascular: Normal rate, normal heart sounds and intact distal pulses. No murmur heard. Pulmonary/Chest: Effort normal and breath sounds normal. No respiratory distress. She exhibits no tenderness. Abdominal: Soft. Bowel sounds are normal. She exhibits no distension. There is no abdominal tenderness. Musculoskeletal: General: No tenderness or edema. Normal range of motion. Cervical back: Normal range of motion and neck supple. Neurological: She is alert and oriented to person, place, and time. Skin: Skin is warm and dry. Psychiatric: She has a normal mood and affect. Her behavior is normal. Judgment and thought contentnormal. Signed TYRELL LEIVA PA-C 10/31/2020 documented in this encounter Procedure Notes * Mary Barber MD - 11/06/2020 2:47 PM CDT Images from the original note were not included. Cardiac Electrophysiology Procedure Note Date of Procedure: 11/06/2020 Admissions Consultant: Mary Barber MD Pre-Procedure Diagnosis: 1. Atrial fibrillation. Procedures performed: ??? Comprehensive electrophysiologic evaluation including transseptal catheterizations, insertion and repositioning of multiple electrode catheters with induction or attempted induction of an arrhythmia including left or right atrial pacing/recording when necessary, right ventricular pacing/recording when necessary, and His bundle recording when necessary with intracardiac catheter ablation of atrial fibrillation by pulmonary vein isolation [[id number]] ??? Additional linear or focal intracardiac catheter ablation of the left or right atrium for treatment of atrial fibrillation remaining after completion of pulmonary vein isolation [+ [id number]] ??? Intracardiac echocardiography during therapeutic/diagnostic intervention, including imaging supervision and interpretation [+ [id number]] ??? Left atrial pacing and recording from coronary sinus or left atrium [+ [id number]] ??? Programmed stimulation and pacing after intravenous drug infusion [+ [id number]] Post-Procedure Diagnosis: 1. Atrial fibrillation. 2. S/P catheter ablation for atrial fibrillation. Catheters/Sheaths Used: 1. Decapolar 6-Fr decapolar catheter was introduced through a 7.5-Fr sheath under fluoroscopic guidance via the left femoral vein into the coronary sinus. 2. AcuNav ICE catheter was introduced through a 9-Fr sheath under fluoroscopic guidance via the left femoral vein into the right atrium. 3. Mini-basket catheter was introduced through a long deflectable sheath from right femoral vein into the left atrium through a transseptal puncture. 4. A 3.5-mm irrigated-tip mapping/ablation catheter was introduced through a long deflectable sheath from the right femoral vein into the left atrium through a transseptal puncture. Medications Administered: Epinephrine 2 mcg/min IV infusion. Heparin IV to maintain ACT >300seconds. Protamine IV. Baseline Intervals: Rhythm: Atrial fibrillation with ventricular pacing. A-A: 202 ms. V-V: 1000 ms. Arrhythmias Induced: Atrial fibrillation was present at baseline, and was electrically cardioverted at the conclusion ofthe procedure. Mapping: Prior to the procedure, the presence of intra-atrial clots was excluded by transesophageal echo and/or cardiac CT angiogram. The sheaths were introduced in the right and left femoral veins. Catheters were introduced to record the right atrium, coronary sinus, HIS bundle, and pulmonary veins, in addition to the mapping/ablation catheter. Left atrial access was achieved via two transseptal punctures using a Brockenbrough needle and longdeflectable sheath under ICE and fluoroscopy guidance and continuous pressure monitoring. Subsequently, mapping catheters were introduced into the left atrium. Anticoagulation was started with IV-hepa rin bolus before transseptal puncture and ACT was monitored throughout the procedure. Atrial fibrillation was present at baseline, and was electrically cardioverted at the conclusion ofthe procedure. A deflectable-tip mapping/ablation catheter was maneuvered into position along the perimeter of each of the pulmonary vein after accessing the left atrium (see above). 3-D electroanatomic mapping wasperformed using [employer] electroanatomical mapping system to build a 3-D model of the left atrium, and used to facilitate mapping, and guide RF ablation and repositioning of catheters. Pulmonary veinpotentials were mapped using a mini-basket catheter. Radiofrequency Catheter Ablation: RF lesions were delivered circumferentially around the antrum of each of the 4 pulmonary veins. Complete electrical isolation was achieved in all of the pulmonary veins, as confirmed by absence/dissociation of pulmonary vein potentials during atrial fibrillation using a circular catheter. Atrial fibrillation persisted even after electrical isolation of all PVs. Therefore, additional linear ablation was performed across the left atrial roof and posteroinferior wall (left atrial posterior wall isolation/box lesion). Bidirectional conduction block across the ablation lines was verifiedwith activation mapping. Each application was set to power of 30-50 W, targeting 40-45 ??C, was continued for 3-10 sec. Remapping after 20 minutes reconfirmed electrical isolation of all PVs. Intracardiac Echo (ICE) Interpretation Report: 1. Transseptal atrial puncture was performed under ICE guidance. 2. Two transseptal sheaths/catheters were visualized in the left atrium and monitored during the ablation procedure with ICE. 3. No pericardial effusion was observed before or after the procedure. Post -operative Diagnosis Summary: 1. Atrial fibrillation was present at baseline, and was electrically cardioverted at the conclusionof the procedure. 2. Catheter ablation of atrial fibrillation was performed with circumferential antral pulmonary vein electrical isolation. Additionally, linear ablation was performed across the left atrial roof and posteroinferior wall (left atrial posterior wall isolation/box lesion). Estimated Blood Loss: Minimal. Specimens Removed: None. Complications: None. Mary Barber M.D. 11/06/2020 documented in this encounter Nursing Notes * Valeria Kolb RN - 11/06/2020 2:40 PM CDT Report called to [facility]iey[facility]. * Valeria Kolb RN - 11/06/2020 2:25 PM CDT Gag reflex intact. documented in this encounter Plan of Treatment Upcoming Encounters Date Type Department Care Team (Late st Contact Info) Description 02/15/2024 1:30 PM DIRECT CARE STAFFER Office Visit [facility] [address] [place] [address] Tyrell Leiva, PAHaylieC [address] [place] [address] 02/15/2024 1:30 PM DIRECT CARE STAFFER Allied Health/Nurse Visit [facility] [address] [place] [address] Mary Barber MD [address] [place] [address] 03/15/2024 11:15 AM DIRECT CARE STAFFER Office Visit [facility] [place] [address] Jim Tamez MD [address] [place] [address] 05/16/2024 1:15 AM CDT [facility] [address] [place] [address] Mary Barber MD [address] [place] [address] 09/07/2024 9:00 AM CDT Office Visit [facility] [place] [address] Tiffany Badillo MD [address] [place] [address] Pending Results Name Type Priority Associated Diagnoses Date /Time XA A-FIB ABLATION Cardiac Cath Routine Paroxysmal atrial fibrillation ([facility]) 11/06/2020 1:25 PM CDT Scheduled Orders Name Type Priority Associated Diagnoses Orde r Schedule XA A-FIB ABLATION Cardiac Cath Routine Paroxysmal atrial fibrillation ([facility]) Once for 1 Occurrences starting 11/06/2020 until 11/06/2020 documented as of this encounter Procedures Procedure Name Priority Date/Time Associated Diagnosis Comments XR CHEST PA+LAT Routine 11/07/2020 8:56 AM CDT ECG 12-LEAD Routine 11/07/2020 6:23 AM CDT PROTHROMBIN TIME, VENOUS Routine 11/07/2020 3:34 AM CDT BASIC METABOLIC PANEL Routine 11/07/2020 3:34 AM CDT CBC W/DIFF AUTOMATED Routine 11/07/2020 3:34 AM CDT MAGNESIUM Routine 11/07/2020 3:34 AM CDT ECG 12-LEAD Routine 11/06/2020 2:21 PM CDT HC ACTIVATED CLOTTING TIME Routine 11/06/2020 12:48 PM CDT HC ACTIVATED CLOTTING TIME Routine 11/06/2020 12:20 PM CDT HC ACTIVATED CLOTTING TIME Routine 11/06/2020 11:51 AM CDT HC ACTIVATED CLOTTING TIME Routine 11/06/2020 11:24 AM CDT ECG 12-LEAD STAT 11/06/2020 9:54 AM CDT ORDER FRESH FROZEN PLASMA Routine 11/06/2020 8:20 AM CDT documented in this encounter Results * XR CHEST PA+LAT (11/07/2020 8:56 AM CDT) Anatomical Region Laterality Modality Chest Radiographic Angelina ging 11/07/2020 8:58 AM CDT Impressions 11/07/2020 12:56 PM CDT IMPRESSION: Small bilateral pleural effusions (left greater than right) with associated atelectasis. Cannot rule out component of left lower lung pneumonia. The attending radiologist has reviewed the image(s) and agrees with the content of this report. Referred By: MARY BARBER Interpreted By: Drew Tim MD, 11/07/2020 8:58 AM Narrative 11/07/2020 12:56 PM CDT EXAMINATION: XR CHEST PA+LAT EXAM TIME: 11/07/2020 8:48 AM CLINICAL HISTORY: 85 years of age Female ??who is status post cardiac ablation. COMPARISON: Chest x-rays on 05/28/2020, 03/28/2019, and 01/31/2019. TECHNIQUE: PA and lateral views of the chest. FINDINGS: A left sided multilead ICD device is in place. Leads are intact without significant kinking, and are in appropriate position. Abdominal surgical clips are redemonstrated. Stable mild enlargement of the cardiomediastinal silhouette. The pulmonary vasculature is within normal limits. Atherosclerosis and tortuosity of the thoracic aorta. There is no pulmonary consolidation. Small bilateral pleural effusions (left greater than right) with associated atelectasis. Left lower lung opacification may represents atelectasis versus pneumonia. No pneumothorax. No acute osseous findings. Subtle old fracture deformities redemonstrated. Mild thoracic spondylosis. Procedure Note Norman Roche MD - 11/07/2020 EXAMINATION: XR CHEST PA+LAT EXAM TIME: 11/07/2020 8:48 AM CLINICAL HISTORY: 85 years of age Female who is status post cardiacablation. COMPARISON: Chest x-rays on 05/28/2020, 03/28/2019, and 01/31/2019. TECHNIQUE: PA and lateral views of the chest. FINDINGS: A left sided multilead ICD device is in place. Leads are intact withoutsignificant kinking, and are in appropriate position. Abdominal surgicalclips are redemonstrated. Stable mild enlargement of the cardiomediastinalsilhouette. The pulmonary vasculature is within normal limits.Atherosclerosis and tortuosity of the thoracic aorta. There is nopulmonary consolidation. Small bilateral pleural effusions (left greaterthan right) with associated atelectasis. Left lower lung opacification mayrepresents atelectasis versus pneumonia. No pneumothorax. No acute osseousfindings. Subtle old fracture deformities redemonstrated. Mild thoracicspondylosis. IMPRESSION: Small bilateral pleural effusions (left greater than right) withassociated atelectasis. Cannot rule out component of left lower lungpneumonia. The attending radiologist has reviewed the image(s) and agrees with thecontent of this report. Referred By: MARY BARBER Interpreted By: Drew Tim MD, 11/07/2020 8:58 AM Stone Odell NP GENERAL IMAGING Final Result * ECG 12 lead - in AM (11/07/2020 6:23 AM CDT) 11/07/2020 6:23 AM CDT Narrative [facility] - 11/07/2020 12:43 PM CDT ? [facility] ?[address] [place], [place] ??[address] ? Test Date: ?2020-11-07 Pat Name: ? SERA LYNDSEYDLER ?Department: ? Room: ? 506AA Gender: ? Female ? Wire Bound Box Machine Operator: ?? Bh : ?1935 ? Requested By: STONE ODELL Order Number: [id number] ? Reading MD: ?? Magdi John ? Measurements Intervals ?[place] ? Rate: ? 71 ? P: ? AR: ? 0 ?QRS: ?123 QRSD: ? 135 ?T: ?91 QT: ? 467 ? QTc: ?509 ? Interpretive Statements ELECTRONIC VENTRICULAR PACEMAKER ABNORMAL RHYTHM ECG Procedure Note Magdi John MD - 11/07/2020 [place] [address] [place] [address] Test Date: 2020-11-07 Pat Name: SERA SHAFFER Department: Room: [facility] Gender: Female Wire Bound Box Machine Operator: : 1935 Requested By: STONE ODELL Order Number: [id number] Reading MD: Magdi John Measurements Intervals [place] Rate: 71 P: AR: 0 QRS: 123 QRSD: 135 T: 91 QT: 467 QTc: 509 Interpretive Statements ELECTRONIC VENTRICULAR PACEMAKER ABNORMAL RHYTHM ECG us Stone Odell COURT CLERK ECG ORDERABLES Final Result Performing Organization Address [facility] Co de Phone Number [facility] * MAGNESIUM (11/07/2020 3:34 AM CDT) MAGNESIUM 1.9 1.6 - 2.6 MG/DL 11/07/2020 4:[address] [facility] 11/07/2020 3:34 AM CDT us Stone Odell NP LABORATORY Final Result Performing Organization Address [facility] Co de Phone Number [facility] [address] [place] [address], [phone] * (ABNORMAL) BASIC METABOLIC PANEL (11/07/2020 3:34 AM CDT) SODIUM S/P/B 140 136 - 145 MMOL/L 11/07/2020 4:[address] [facility] POTASSIUM S/P/B 3.9 3.5 - 5.1 MMOL/L 11/07/2020 4:[address] [facility] CHLORIDE S/P/B 108(H) 98 - 107 MMOL/L 11/07/2020 4:[address] [facility] CO2 30.1 21.0 - 32.0 MMOL/L 11/07/2020 4:[address] [facility] GLUCOSE 96 74 - 106 MG/DL 11/07/2020 4:[address] [facility] BUN 20(H) 7 - 18 MG/DL 11/07/2020 4:[address] [facility] CREATININE S/P/B 1.03(H) 0.55 - 1.02 MG/DL 11/07/2020 4:[address] [facility] CALCIUM S/P/B 8.4(L) 8.5 - 10.1 MG/DL 11/07/2020 4:[address] [facility] ANION GAP 1.9(L) 5.0 - 15.0 MMOL/L 11/07/2020 4:[address] [facility] OSMOLALITY (CALC) 292 MOSM/KG 021 4:[address] [facility] Comment:REFERENCE RANGE NOT ESTABLISHED EGFR NON-AFR. AMER. 50(L) >90 ML/MIN/1. 73 M2 11/07/2020 4:[address] [facility] EGFR AFR. AMER. 57(L) >90 ML/MIN/1. 73 M2 11/07/2020 4:[address] [facility] GFR NOTES GFR REFERENCE S: 11/07/2020 4:[address] [facility] Comment: THE ESTIMATED GFR IS CALCULATED USING THE 2009 CKD-EPI EQUATION. THE FOLLOWING CATEGORIES FOR GRADING RENAL FUNCTION ARE RECOMMENDED BY THE INTERNATIONAL SOCIETY OF NEPHROLOGY (KDIGO 2012 CLINICAL PRACTICE GUIDELINE). G1,NORMAL OR HIGH: >89 ml/min/1.73 m2 G2,MILDLY DECREASED: 60-89 ml/min/1.73 m2 G3A,MILDLY TO MODERATELY DECREASED: 45-59 ml/min/1.73 m2 G3B,MODERATELY TO SEVERELY DECREASED: 30-44 ml/min/1.73 m2 G4,SEVERELY DECREASED: 15-29 ml/min/1.73 m2 G5,KIDNEY FAILURE: <15 ml/min/1.73 m2 11/07/2020 3:34 AM CDT us Stone Odell NP LABORATORY Final Result Performing Organization Address [facility] Co de Phone Number [facility] [address] [place] [address], [place] [phone] * (ABNORMAL) PROTIME/INR, VENOUS (11/07/2020 3:34 AM CDT) PROTIME 16.3(H) 10.2 - 12.9 SEC 11/07/2020 4:[address] [facility] INR 1.4(H) 0.9 - 1.1 11/07/2020 4:[address] [facility] 11/07/2020 3:34 AM CDT us Stone Odell NP LABORATORY Final Result Performing Organization Address [facility] Co de Phone Number [facility] [address] [place] [address], [place] [phone] * (ABNORMAL) CBC W/DIFF AUTOMATED (11/07/2020 3:34 AM CDT) [facility] WBC 4.2 4.0 - 10.8 x10'3/uL 11/07/2020 3:[address] [facility] RBC 3.32(L) 4.10 - 5.40 x10'6/uL 11/07/2020 3:[address] [facility] HGB 10.0(L) 12.0 - 16.0 G/DL 11/07/2020 3:[address] [facility] HCT 31.7(L) 36.0 - 47.0 % 11/07/2020 3:[address] [facility] MCV 95.5 78.0 - 100.0 FL 11/07/2020 3:[address] [facility] MCH 30.1 27.0 - 31.0 PG 11/07/2020 3:[address] [facility] MCHC 31.5(L) 33.0 - 36.0 G/DL 11/07/2020 3:[address] [facility] RDW 14.6(H) 11.5 - 14.5 % 11/07/2020 3:[address] [facility] PLT 146(L) 150 - 350 x10'3/uL 11/07/2020 3:[address] [facility] MPV 8.9 7.4 - 10.4 FL 11/07/2020 3:[address] [facility] ABS. NEUTROPHILS 2.77 1.60 - 8.30 x10'3/uL 11/07/2020 3:[address] [facility] ABS. LYMPHOCYTES 0.90 0.80 - 4.70 x10'3/uL 11/07/2020 3:[address] [facility] ABS. MONOCYTES 0.37 0.00 - 1.50 x10'3/uL 11/07/2020 3:53 AM CDT [facility] ABS. EOSINOPHILS 0.15 0.00 - 0.40 x10'3/uL 11/07/2020 3:[address] [facility] ABS. BASOPHILS 0.01 0.00 - 0.20 x10'3/uL 11/07/2020 3:[address] [facility] ABS. IMMATURE GRANULOCYTES 0.01 0.00 - 0.03 x10'3/uL 11/07/2020 3:[address] [facility] ABS. NUCLEATED RBC'S 0.00 0.0 x10'3/uL 11/07/2020 3:[address] [facility] 11/07/2020 3:34 AM CDT Stone Odell NP LABORATORY Final Result [facility] [address] [place] [address], [phone] * ECG 12 lead - Today (11/06/2020 2:21 PM CDT) 11/06/2020 2:21 PM CDT Narrative [facility] - 11/06/2020 5:28 PM CDT ? [facility] ?[address] [place], [place] ??[address] ? Test Date: ?2020-11-06 Pat Name: ? SERA SHAFFER ?Department: ? Room: ? 506 Gender: ? Female ? Wire Bound Box Machine Operator: ?? SB : ?1935 ? Requested By: STONE ODELL Order Number: [id number] ? Reading : ?? Magdi John ? Measurements Intervals ?[place] ? Rate: ? 80 ? P: ?67 AR: ? 159 ?QRS: ?121 QRSD: ? 146 ?T: ?79 QT: ? 475 ? QTc: ?550 ? Interpretive Statements ELECTRONIC VENTRICULAR PACEMAKER ABNORMAL RHYTHM ECG Procedure Note Magdi John MD - 11/06/2020 [facility] [address] [place] [address] Test Date: 2020-11-06 Pat Name: SERA SHAFFER Department: Room: 506 Gender: Female Wire Bound Box Machine Operator: PREETHI : 1935 Requested By: STONE ODELL Order Number: [id number] Reading MD: Magdi John Measurements Intervals [place] Rate: 80 P: 67 AR: 159 QRS: 121 QRSD: 146 T: 79 QT: 475 QTc: 550 Interpretive Statements ELECTRONIC VENTRICULAR PACEMAKER ABNORMAL RHYTHM ECG us Stone Odell COURT CLERK ECG ORDERABLES Final Result Performing Organization Address [facility] Co de Phone Number [facility] * (ABNORMAL) ACT (HMT OR LHMT) (11/06/2020 12:48 PM CDT) ACTIVATED CLOTTING TIME (ACT HMT OR LMT) 290(H) 74 - 137 SEC 11/06/2020 12:[address] [facility] 11/06/2020 12:4 8 PM CDT Mary Barber MD LAB BLOOD ORDERABLES Final Resul t Performing Organization Address [facility] de Phone Number [facility] [address] [place] [address], [place] [phone] * (ABNORMAL) ACT (HMT OR LHMT) (11/06/2020 12:20 PM CDT) ACTIVATED CLOTTING TIME (ACT HMT OR LMT) 318(H) 74 - 137 SEC 11/06/2020 12:[address] [facility] 11/06/2020 12:2 0 PM CDT us Mary Barber MD LAB BLOOD ORDERABLES Final Resul t Performing Organization Address [facility] de Phone Number [facility] [address] [place] [address], [phone] * (ABNORMAL) ACT (HMT OR LHMT) (11/06/2020 11:51 AM CDT) ACTIVATED CLOTTING TIME (ACT HMT OR LMT) 340(H) 74 - 137 SEC 11/06/2020 11:[address] [facility] 11/06/2020 11:5 1 AM CDT us Mary Barber MD LAB BLOOD ORDERABLES Final Resul t Performing Organization Address [facility] de Phone Number [facility] [address] [place] [address], [place] [phone] * (ABNORMAL) ACT (HMT OR LHMT) (11/06/2020 11:24 AM CDT) ACTIVATED CLOTTING TIME (ACT HMT OR LMT) 307(H) 74 - 137 SEC 11/06/2020 11:[address] [facility] 11/06/2020 11:2 4 AM CDT us Mary Barber MD LAB BLOOD ORDERABLES Final Resul t Performing Organization Address [facility] de Phone Number [facility] [address] [place] [address], [place] [phone] * ECG 12 lead (11/06/2020 9:54 AM CDT) 11/06/2020 9:54 AM CDT Narrative [facility] - 11/06/2020 5:20 PM CDT ? [facility] ?[address] [place], [place] ??[address] ? Test Date: ?2020-11-06 Pat Name: ? SERA WEIDLER ?Department: ? Room: ? 506 Gender: ? Female ? Wire Bound Box Machine Operator: ?? BH : ?1935 ? Requested By: ZIAD BANG Order Number: [id number] ? Reading MD: ?? Magdi John ? Measurements Intervals ?[place] ? Rate: ? 70 ? P: ? AR: ? 0 ?QRS: ?128 QRSD: ? 137 ?T: ?36 QT: ? 448 ? QTc: ?484 ? Interpretive Statements ELECTRONIC VENTRICULAR PACEMAKER ABNORMAL RHYTHM ECG Procedure Note Magdi John MD - 11/06/[address] [address] Test Date: 2020-11-06 Pat Name: SERA SHAFFER Department: Room: [facility] Gender: Female Wire Bound Box Machine Operator: : 1935 Requested By: MARY BARBER Order Number: [id number] Cee MD: Magdi John Measurements Intervals [place] Rate: 70 P: AR: 0 QRS: 128 QRSD: 137 T: 36 QT: 448 QTc: 484 Interpretive Statements ELECTRONIC VENTRICULAR PACEMAKER ABNORMAL RHYTHM ECG Mary Barber MD ECG ORDERABLES Final Result Performing Organization Address [facility] de Phone Number [facility] * ORDER FRESH FROZEN PLASMA, 4 Units (11/06/2020 8:20 AM CDT) UNITS ORDERED 4 11/06/2020 8:[address] [facility] 11/06/2020 8:20 AM CDT Mary Barber MD BLOOD BANK PRODUCT ORDERABLES Fi nal Result Performing Organization Address [facility] de Phone Number [facility] [address] [place] [address], [phone] documented in this encounter Visit Diagnoses Diagnosis Paroxysmal atrial fibrillation ([facility]) Atrial fibrillation documented in this encounter Administered Medications Inactive Administered Medications - up to 3 most recent administrations Medication Order MAR Action Action Date Dose Rate Site acetaminophen (TYLENOL) tablet 650 mg 650 mg, Oral, Every 6 hours PRN, Mild pain (Scale 1 - 3), Starting on Thu11/06/20 at 1412, Until Thu11/07/20 at 1507, Maximum dose of acetaminophen is 4000 mg from all sources in 24 hours., Post-Op Given 11/07/2020 2:07 AM CDT 650 mg Given 11/06/2020 2:25 PM CDT 650 mg amiodarone (PACERONE) tablet 200 mg 200 mg, Oral, Daily, First dose on Thu11/07/20 at 0900, Until Discontinued Given 11/07/2020 8:16 AM CDT 200 mg apixaban (ELIQUIS) tablet 5 mg 5 mg, Oral, 2 times daily, First dose on Thu11/06/20 at 2100, Until Discontinued Given 11/07/2020 8:16 AM CDT 5 mg Given 11/06/2020 9:11 PM CDT 5 mg aspirin EC (ECOTRIN) tablet 81 mg 81 mg, Oral, Daily, First dose on Thu11/07/20 at 0900, Until Discontinued, Do not break, chew, or crush. Given 11/07/2020 8:16 AM CDT 81 mg atorvastatin (LIPITOR) tablet 80 mg 80 mg, Oral, Nightly at bedtime, First dose on Thu11/06/20 at 2100, Until Discontinued, Therapeutic interchange for rosuvastatin 40 mg Given 11/06/2020 9:11 PM CDT 80 mg chlorhexidine (PERIDEX) 0.12 % solution 15 mL 15 mL, Mouth/Throat, PRN, Prior to surgery, 1 dose, Starting on Thu11/06/20 at 0819, Until Thu11/07/20 at 1507, Patient to perform oral care first. Swish/Gargle in mouth for 30 seconds, and then discard, prior to going to surgery/ If ventilated use saturated swab to clean oral cavity., Pre-Op furosemide (LASIX) injection 40 mg 40 mg, Intravenous, Once, 1 dose, On Thu11/06/20 at 1700, Administer IV push 20-40mg/min. Given 11/06/2020 5:30 PM CDT 40 mg furosemide (LASIX) tablet 20 mg 20 mg, Oral, Daily, First dose on Thu11/07/20 at 0900, Until Discontinued Given 11/07/2020 8:16 AM CDT 20 mg levothyroxine (SYNTHROID) tablet 100 mcg 100 mcg, Oral, Every morning, First dose on Thu11/07/20 at 0700, Until Discontinued, Avoid iron, calcium, and antacids within 4 hours of administration. Given 11/07/2020 6:09 AM CDT 100 mcg metoprolol succinate ER (TOPROL-XL) 24 hr tablet 50 mg 50 mg, Oral, Daily, First dose on Thu11/07/20 at 0900, Until Discontinued, May be split in half along the tablet score line; do not chew or crush. Given 11/07/2020 8:16 AM CDT 50 mg ondansetron (ZOFRAN) injection 4 mg 4 mg, Intravenous, Every 8 hours PRN, Nausea, Vomiting, Starting on Thu11/06/20 at 1412, Until Thu11/07/20 at 1507, IV push over 2-5 minutes., Post-Op pantoprazole EC (PROTONIX) tablet 40 mg 40 mg, Oral, Daily, First dose on Thu11/07/20 at 0900, Until Discontinued, Do not break, chew, or crush. Given 11/07/2020 8:16 AM CDT 40 mg potassium chloride CR (KLOR-CON M) tablet 40 mEq 40 mEq, Oral, Once, 1 dose, On Thu11/06/20 at 1700, Do not chew, crush, or suck on tablet. May break in half. May dissolve whole tablet in 120 mL of water and drink immediately. Given 11/06/2020 5:30 PM CDT 40 mEq spironolactone (ALDACTONE) Split tab 12.5 mg 12.5 mg, Oral, Daily, First dose on Thu11/07/20 at 0900, Until Discontinued Given 11/07/2020 8:16 AM CDT 12.5 mg traMADol (ULTRAM) tablet 50 mg 50 mg, Oral, Every 6 hours PRN, Moderate pain (Scale 4 - 7), Starting on Thu11/06/20 at 1412, Until Thu11/07/20 at 1507, Post-Op Given 11/06/2020 3:53 PM CDT 50 mg documented in this encounter Active and Recently Administered Medications Times are shown in CDT. Scheduled Medication Order 11/05/2020 11/06/2020 11/07/2020 amiodarone (PACERONE) tablet 200 mg 200 mg, Oral, Daily, First dose on Thu11/07/20 at 0900, Until Discontinued 815 (Given - Provid er: Ericka Sharma RN) apixaban (ELIQUIS) tablet 5 mg 5 mg, Oral, 2 times daily, First dose on Thu11/06/20 at 2100, Until Discontinued 2110 (Given - Provider: Diana Joyner RN) 815 (Given - Provider: Ericka Sharma RN) aspirin EC (ECOTRIN) tablet 81 mg 81 mg, Oral, Daily, First dose on Thu11/07/20 at 0900, Until Discontinued, Do not break, chew, or crush. 815 (Given - Provid er: Ericka Sharma RN) atorvastatin (LIPITOR) tablet 80 mg 80 mg, Oral, Nightly at bedtime, First dose on Thu11/06/20 at 2100, Until Discontinued, Therapeutic interchange for rosuvastatin 40 mg 2110 (Given - Provider: Diana Joyner RN) furosemide (LASIX) injection 40 mg (COMPLETED) 40 mg, Intravenous, Once, 1 dose, On Thu11/06/20 at 1700, Administer IV push 20-40mg/min. 1730 (Given - Provider: Ericka Sharma RN) furosemide (LASIX) tablet 20 mg 20 mg, Oral, Daily, First dose on Thu11/07/20 at 0900, Until Discontinued 815 (Given - Provid er: Ericka Sharma RN) levothyroxine (SYNTHROID) tablet 100 mcg 100 mcg, Oral, Every morning, First dose on Thu11/07/20 at 0700, Until Discontinued, Avoid iron, calcium, and antacids within 4 hours of administration. 608 (Given - Provid er: Diana Joyner RN) metoprolol succinate ER (TOPROL-XL) 24 hr tablet 50 mg 50 mg, Oral, Daily, First dose on Thu11/07/20 at 0900, Until Discontinued, May be split in half along the tablet score line; do not chew or crush. 0816 (Given - Provid er: Ericka Sharma RN) pantoprazole EC (PROTONIX) tablet 40 mg 40 mg, Oral, Daily, First dose on Thu11/07/20 at 0900, Until Discontinued, Do not break, chew, or crush. 0816 (Given - Provid er: Ericka Sharma RN) potassium chloride CR (KLOR-CON M) tablet 40 mEq (COMPLETED) 40 mEq, Oral, Once, 1 dose, On Thu11/06/20 at 1700, Do not chew, crush, or suck on tablet. May break in half. May dissolve whole tablet in 120 mL of water and drink immediately. 1730 (Given - Provider: Ericka Sharma RN) prednisoLONE acetate (PRED FORTE) 1 % ophthalmic suspension 1 drop 1 drop, Right Eye, 4 times daily, First dose on Thu11/06/20 at 1700, Until Discontinued, Shake Well Therapeutic interchange for LOTEPREDNOL ETABONATE 0.5 % OP SUSP 1733 (Not Given - Provider: Ericka Sharma RN - Reason: Patient/family declined)1735 (Not Given - Provider: Ericka Sharma RN - Reason: Patient/family declined) 0754 (Not Given - Provider: Ericka Sharma RN - Reason: Patient/family declined)1300 (Canceled Entry - Provider: Automatic Discharge Provider - Comment: Automatically canceled at discontinue of medication order) spironolactone (ALDACTONE) Split tab 12.5 mg 12.5 mg, Oral, Daily, First dose on Thu11/07/20 at 0900, Until Discontinued 0816 (Given - Provid er: Ericka Sharma RN) PRN Medication Order 11/05/2020 11/06/2020 11/07/2020 acetaminophen (TYLENOL) tablet 650 mg 650 mg, Oral, Every 6 hours PRN, Mild pain (Scale 1 - 3), Starting on Thu11/06/20 at 1412, Until Thu11/07/20 at 1507, Maximum dose of acetaminophen is 4000 mg from all sources in 24 hours., Post-Op 1425 (Given - Provider: Valeria Kolb, SIA) 0207 (Given - Provider: Diana Joyner, SIA) chlorhexidine (PERIDEX) 0.12 % solution 15 mL 15 mL, Mouth/Throat, PRN, Prior to surgery, 1 dose, Starting on Thu11/06/20 at 0819, Until Thu11/07/20 at 1507, Patient to perform oral care first. Swish/Gargle in mouth for 30 seconds, and then discard, prior to going to surgery/ If ventilated use saturated swab to clean oral cavity., Pre-Op ondansetron (ZOFRAN) injection 4 mg 4 mg, Intravenous, Every 8 hours PRN, Nausea, Vomiting, Starting on Thu11/06/20 at 1412, Until Thu11/07/20 at 1507, IV push over 2-5 minutes., Post-Op traMADol (ULTRAM) tablet 50 mg 50 mg, Oral, Every 6 hours PRN, Moderate pain (Scale 4 - 7), Starting on Thu11/06/20 at 1412, Until Thu11/07/20 at 1507, Post-Op 1553 (Given - Provider: Ericka Sharma, SIA) documented in this encounter Care Teams Director Global Intelligence Relationship Specialty Start Date End Date Hi Rolon DO [address] [place] [address] PCP - General FAMILY PRACTICE 04/13/19 Mary Barber MD [address] [place] [phone] EP Lead Portfolio Manager CLINICAL CARDIAC ELECTROPHYSIOLOGY 09/15/16 Tiffany Badillo MD [address] [place] [address] [phone] Consulting Physician INTERVENTIONAL CARDIOLOGY 12/23/19 Erick Abdi MD [address] [place] [phone] Consulting Physician PAIN MANAGEMENT 09/06/20 documented as of this encounter
--- OUTSIDE RECORDS SUMMARY | 2024-01-27 07:41 | XMS_ITS | Encounter Summary ---
Author Organization [facility] Address [address] [place] [address] [place] [address] Care Team Providers Care Maintenance Engineer Name Role Phone Mary Barber MD Unavailable Qasim Garrett DO Primary Care Provider [phone] Tiffany Badillo MD Unavailable [phone] Erick Abdi MD Unavailable [phone] Reason for Visit * Auth/Cert Specialty Diagnoses / Procedures Referred By Contac t Referred To Contact Diagnoses Paroxysmal atrial fibrillation ([facility]) A-fib Procedures XA A-FIB ABLATION Referral ID Status Reason Start Date Expiration Date Visits Re quested Visits Authorized [id number] 1 1 Encounter Details Date Type Department Care Team (Late st Contact Info) Description 11/06/2020 10:18 AM CDT Anesthesia Event [facility] Managed Care Manager Pre/Post [address] [place] [address] Dahiana Lagunas MD,PHD [address] [place] [address] Anesthesia Record Procedure Summary Procedure Name Responsible Anesthesiologist Anesthesia Start Time Anesthesia Stop Time XA A-FIB ABLATION Dahiana Lagunas MD,PHD 11/06/20 1018 10/11 09/29 1329 Events Date Time Event Comment 11/06/2020 0930 0930 AN Anesthesia Prepped 1018 An Start Patient ID and consent checked and patient reassessed. 1022 An Start Data 1024 Preoxygenation 1029 An Induction The patient was reevaluated immediately before moderate or deep sedation use and before anesthesia induction. 1033 An Intubation 1041 Anesthesia Ready 1110 Quick Note start 1128 Quick Note ACT 307 1156 Quick Note ACT 340 1224 Quick Note ACT 318 1252 Quick Note ACT = 290 1315 An Extubation 1326 an stop data 1329 Post Anesthetic Care Handoff I completed my handoff to the receiving nurse during which we: 1. Identified the patient 2. Identified the responsible provider 3. Reviewed the pertinent medical history 4. Discussed the surgical course 5. Reviewed intra-op anesthesia management and issues during anesthesia 6. Set expectations for post-procedure period 7. Allowed opportunity for questions and acknowledgement of understanding. 1329 An Stop Meds Name Total fentaNYL (SUBLIMAZE) 100 mcg/2 mL inject ion 50 mcg lidocaine (PF) (XYLOCAINE) 1% injection 100 mg propofol (DIPRIVAN) 200 mg/20 mL injecti on 150 mg rocuronium (ZEMURON) 50 mg/5 mL injectio n 70 mg phenylephrine (ELVIRA-SYNEPHRINE) 1 mg/10 m L IV premix syringe 80 mcg phenylephrine (ELVIRA-SYNEPHRIN E) 10 mg in sodium chloride 0.9 % 250 mL infusion 3,040 mcg ondansetron (ZOFRAN) injection 4 mg sugammadex (BRIDION) 200 mg/2 mL injecti on 200 mg clindamycin (CLEOCIN) 900 mg in D5W 50 m L IVPB 900 mg heparin 5,000 units/mL injection 16,000 Units protamine 10 mg/mL injection 50 mg lactated ringers infusion 500 mL sodium chloride 0.9% infusion 600 mL * Agents Name O2 Air Inspired Sevoflurane Inspired Isoflurane Sevoflurane Isoflurane * Blood No blood administrations on file. Lines, Drains, and Airways Type Details Placement Removal Wound 03/28/19; 0030; Heel ; Right; Pressure ulcer/injury 03/28/19 0030 by Jonas Garcia RN Supraglottic Airway Placement Date: 08/26; Placement Time: 1346; Airway Device: Nasal prong; Removal Date: 11/06/20; Removal Time: 1310 (removed prior to this hospital admission) 01/15/18 1346 by Ruth Myers, PHONE BANKER 11/06/20 1310 by Ericka Pop RN ETT Placement Date: 10/11 09/29; Placement Time: 1033; Placed Outside of This Facility?:No; Mask Ventilate: Prior to intubation; Size (mm) : 7 (secured at 21cm at front gum line); Endotracheal: Oral; Blade Type: MAC 3; Placement Method: Direct Laryngoscopy (blade type in comment); View Grade: 1; Viewable Anatomy: Epiglottis, Arytenoid, Vocal cords; Insertion Attempts: 1; Placement Verified By: Capnography, Auscultation, Chest Rise; Placed By: PERFECTO; Removal Date: 11/06/20; Removal Time: 13111/06/20 1033 by Elissa Beckham CRNA 11/06/20 1315 by Elissa Beckham CRNA Peripheral IV Placement Date: 10/11 09/29; Placement Time: 1033; Placed Outside of This Facility?: No; Size: 18 G; Orientation: Right; Location: Forearm; Site Prep: Chlorhexidine; Local Anesthetic: None; Inserted By: DR. LAGUNAS; Insertion attempts: 1; Ultrasound-guided Placement?: No; Patient Tolerance: Other (Comment); Removal Date: 11/07/20; Removal Time: 93411/06/20 1033 by Elissa Beckham CRNA 11/07/20 0935 by Ericka Pop RN Arterial Line Placement Date: 10/11 09/29; Placement Time: 104 (created via procedure documentation); Placed Outside of This Facility?: No; Size: 20; Orientation: Right; Location: Radial; Site Prep: Chlorhexidine; Local Anesthetic: None; Insertion Attempts: 1; Patient Tolerance: Other (Comment) (GENERAL ANESTHESIA); Removal Date: 11/06/20; Removal Time: 145; Removal Reason: Therapy Completed 11/06/20 1041 by Elissa Beckham CRNA 11/06/20 145 by Valeria Kolb RN documented in this encounter Social History Tobacco Use Types Packs/Day Years [...] Never 03/27/2019 Marital Status 03/27/2019 [facility] Occupat ional Health - Occupational [...] Answer Date of Assessment Author Status No 03/28/2019 12:00 AM INSURANCE DEFENSE ATTORNEY 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 Answer Date of Assessment Author Status No 03/28/2019 12:00 AM INSURANCE DEFENSE ATTORNEY Acti ve * Do you have serious difficulty walking or climbing stairs? Answer Date of Assessment Author Status Yes 03/28/2019 12:00 AM INSURANCE DEFENSE ATTORNEY Jonas Garcia RN Active * Do you have difficulty dressing or bathing? Answer Date of Assessment Author Status No 03/28/2019 12:00 AM Jonas Collins RN Active * Because of a physical, mental, or emotional condition, do you have difficulty doing errands alone such as visiting a doctor's office or shopping? Answer Date of Assessment Author Status No 03/28/2019 12:00 AM Jonas Collins RN Active documented as of this encounter Mental Status * Because of a physical, mental, or emotional condition, do you have serious difficulty concentrating, remembering, or making decisions? Answer Entry Date Author Status No 11/06/2020 3:38 PM CDT Ericka Pop RN Active documented in this encounter OR Notes * Anesthesia Postprocedure Evaluation - Dahiana Lagunas MD,PHD - 11/06/2020 2:42 PM CDT Anesthesia Post-op Note Sera Shaffer Procedure(s): XA A-FIB ABLATION Anesthesia type: general Vitals: 11/06/20 1432 BP: 109/58 Vitals: 11/06/20 1432 Pulse: 81 Vitals: 11/06/20 1432 Resp: 15 Vitals: 11/06/20 1332 Temp: 36.2 ??C Vitals: 11/06/20 1432 SpO2: 96% Patient Location: PACU Level of Consciousness: awake, alert and oriented Pain Management: adequate analgesia Airway Patency: patent Respiratory Status: acceptable Cardiovascular Status: acceptable Post-Op Nausea: none Postoperative Hydration: euvolemic Comments: Pt evaluated, denies pain/n/v/recall, breathing comfortable, continue to lie flat for recovery Pt's dentures, which were removed for the procedure, have been placed back in, pt reports adequate fitting There were no known complications for this encounter. * Anesthesia Procedure Notes - Elissa Beckham CRNA - 11/06/2020 11:31 AM CDT Associated Order(s): Art Line Art Line Placement: Date/Time: 11/06/2020 10:41 AM Patient Location: Managed Care Manager Placed Outside of This Facility?: No Size: 20 Orientation: Right Location: Radial Site Prep: Chlorhexadine Local Anesthetic: None Insertion Attempts: 1 Ultrasound-guided Placement: Yes Secure Method: Taped Patient Tolerance: Other (comment) (GENERAL ANESTHESIA) Additional Notes: Placed by Dr. Lagunas * Anesthesia Preprocedure Evaluation - Dahiana Lagunas MD,PHD - 11/02/2020 11:15 AM CDT Anesthesia ROS/MED History Reviewed: Patient summary , Nursing notes , ECG, Family history anesthesia, Anesthesia history , Medications , Labs , Images/Studies Pre-Anesthetic State: alert, awake and responds appropriately no history of anesthetic complications Pulmonary (+) smoker (quit 1971) Cardiovascular Exercise tolerance:poor (frail) (+) pacemaker (2013), hypertension, CAD, CHF (Non-ischemic cardiomyopathy ), arrhythmia (s/p ablation of the AV node and implantation of a dual-chamber [employer] pacemaker in April 2006), (A-fib), (PVC's), Peripheral vascular disease (DVT PE), hyperlipidemia ROS comment: 09/03/20 ECHO::: The left ventricular size is mildly enlarged. The left ventricular systolic function is depressed. The calculated ejection fraction is 35%. Mild concentric left ventricular hypertrophy. Left ventricular diastolic function is abnormal. ??Severe global hypokinesis is noted. Right ventricular systolic function is depressed. A pacemakerwire is visualized in the right and ventricle. The left atrial volume is severely increased (>48ml/M2). Right atrial size is mildly enlarged. Ascending aorta is mildly dilated. The proximal ascending aorta measures 3.8cm. Trace aortic regurgitation. Trace mitral regurgitation. Mild to moderately calcified anterior and posterior mitral annulus. Myxomatous degeneration of mitral valve. Trace pulmonic regurgitation. Mild tricuspid regurgitation Neuro/Psych (+) TIA Comments: 2007 due to a subdural hematoma requiring evacuation-- GI/Hepatic/Renal neg GI/hepatic/renal ROS Endo/Other (+) hypothyroidism, arthritis, blood dyscrasia (eliquis), (Anticoagulation) GENERAL COMMENTS H&P NOTED ON -10/31/20 85F here for A fib ablation COVID vaccinated Physical Evaluation Airway Mallampati: III TM Distance: >3 FB Neck ROM: normal Dental (lower dentures), (upper dentures), (edentulous) Pulmonary Pulmonary exam normal Breath sounds clear to auscultation (-) wheezing Cardiovascular Rhythm: regular Rate: normal Cardiovascular exam normal (-) murmur Other findings: PM in L upper chest Anesthesia Plan ASA 4 Intravenous Induction Anesthesia type: general Plan for Airway: ETT and mask management Plan for Vascular: arterial line and second IV Plan for Monitors: arterial blood pressure Plan for Post-op Pain Plan: oral pain medication, IV analgesics and as per surgeon Informed Consent Anesthetic plan and risks discussed with patient of whom consent was obtained. Use of blood products discussed with patient of whom consent was obtained. . documented in this encounter Plan of Treatment Upcoming Encounters Date Type Department Care Team (Late st Contact Info) Description 02/15/2024 1:30 PM INSURANCE DEFENSE ATTORNEY Office Visit [facility] [address] [place] [address] Tyrell Leiva, PA-C [address] [place] [address] [phone] 02/15/2024 1:30 PM INSURANCE DEFENSE ATTORNEY Allied Health/Nurse Visit [facility] [address] [place] [address] Mary Barber MD [address] [place] [address] 03/15/2024 11:15 AM INSURANCE DEFENSE ATTORNEY Office Visit [facility] [place] [address] Jim Taemz MD [address] [place] [address] 05/16/2024 1:15 AM CDT Allied Health/Nurse Visit [facility] ld [address] [place] [address] Mary Barber MD [address] [place] [address] 09/07/2024 9:00 AM CDT Office Visit [facility] [place] [address] Tiffany Badillo MD [address] [place] [address] documented as of this encounter Procedures Procedure Name Priority Date/Time Associated Diagnosis Comments ART LINE PLACEMENT Routine 11/06/2020 11 :31 AM CDT documented in this encounter Results * ART LINE PLACEMENT (11/06/2020 11:31 AM CDT) Elissa Mcqueen CRNA - 11/06/2020 11:31 AM CDT Elissa Beckham CRNA ? 11/06/2020 11:32 AM Art Line Placement: Date/Time: ??11/06/2020 10:41 AM Patient Location: ??Managed Care Manager Placed Outside of This Facility?: ??No Size: ??20 Orientation: ??Right Location: ??Radial Site Prep: ??Chlorhexadine Local Anesthetic: ??None Insertion Attempts: ??1 Ultrasound-guided Placement: ??Yes Secure Method: ??Taped Patient Tolerance: ??Other (comment) (GENERAL ANESTHESIA) Additional Notes: ??Placed by Dr. Lagunas us Dahiana Lagunas MD,PHD [place] ANESTHESIA Final Result documented in this encounter Visit Diagnoses Not on filedocumented in this encounter Administered Medications Inactive Administered Medications - up to 3 most recent administrations Medication Order MAR Action Action Date Dose Rate Site clindamycin (CLEOCIN) IVPB Intravenous, Administer over 30 Minutes, PRN, Starting on Thu11/06/20 at 1053, Until Thu11/06/20 at 1335, Anesthesia Intra-Op Given 11/06/2020 10:53 AM CDT 900 mg fentaNYL (SUBLIMAZE) injection Intravenous, PRN, Starting on Thu11/06/20 at 1029, Until Thu11/06/20 at 1335, Anesthesia Intra-Op Given 11/06/2020 10:29 AM CDT 50 mcg heparin (porcine) injection Intravenous, PRN, Starting on Thu11/06/20 at 1111, Until Thu11/06/20 at 1335, Anesthesia Intra-Op Given 11/06/2020 11:29 AM CDT 3,000 Units Given 11/06/2020 11:11 AM CDT 13,000 Units lactated ringers infusion Intravenous, Continuous PRN, Starting on Thu11/06/20 at 1024, Until Thu11/06/20 at 1335, Anesthesia Intra-Op New Bag 11/06/2020 10:24 AM CDT lidocaine (PF) (XYLOCAINE) 1 % injection Intravenous, PRN, Starting on Thu11/06/20 at 1029, Until Thu11/06/20 at 1335, Anesthesia Intra-Op Given 11/06/2020 10:29 AM CDT 100 mg ondansetron (ZOFRAN) injection Intravenous, PRN, Starting on Thu11/06/20 at 1311, Until Thu11/06/20 at 1335, Anesthesia Intra-Op Given 11/06/2020 1:11 PM CDT 4 mg phenylephrine (ELVIRA-SYNEPHRINE) 10 mg in sodium chloride 0.9 % 250 mL infusion Intravenous, Continuous PRN, Starting on Thu11/06/20 at 1057, Until Thu11/06/20 at 1335, Anesthesia Intra-Op New Bag 11/06/2020 10:57 AM CDT 20 mcg/min 30 m L/hr phenylephrine (ELVIRA-SYNEPHRINE) injection Intravenous, PRN, Starting on Thu11/06/20 at 1029, Until Thu11/06/20 at 1335, Anesthesia Intra-Op Given 11/06/2020 10:29 AM CDT 80 mcg propofol (DIPRIVAN) IV bolus Intravenous, PRN, Starting on Thu11/06/20 at 1029, Until Thu11/06/20 at 1335, Anesthesia Intra-Op Given 11/06/2020 10:29 AM CDT 150 mg protamine injection Intravenous, PRN, Starting on Thu11/06/20 at 1308, Until Thu11/06/20 at 1335, Anesthesia Intra-Op Given 11/06/2020 1:08 PM CDT 50 mg rocuronium (ZEMURON) injection Intravenous, PRN, Starting on Thu11/06/20 at 1029, Until Thu11/06/20 at 1335, Anesthesia Intra-Op Given 11/06/2020 11:22 AM CDT 20 mg Given 11/06/2020 10:29 AM CDT 50 mg sodium chloride 0.9% infusion Intravenous, Continuous PRN, Starting on Thu11/06/20 at 1033, Until Thu11/06/20 at 1335, Anesthesia Intra-Op New Bag 11/06/2020 10:33 AM CDT sugammadex (BRIDION) injection Intravenous, PRN, Starting on Thu11/06/20 at 1311, Until Thu11/06/20 at 1335, Anesthesia Intra-Op Given 11/06/2020 1:11 PM CDT 200 mg documented in this encounter Care Teams Maintenance Engineer Relationship Specialty Start Date End Date Qasim Garrett DO [address] [place] [address] PCP - General FAMILY PRACTICE 04/13/19 Mary Barber MD [address] [place] [phone] EP Slotter Operator Helper CLINICAL CARDIAC ELECTROPHYSIOLOGY 09/15/16 Tiffany Badillo MD [address] [place] [address] [phone] Consulting Physician INTERVENTIONAL CARDIOLOGY 12/23/19 Erick Abdi MD [address] [place] [address] [phone] Consulting Physician PAIN MANAGEMENT 09/06/20 documented as of this encounter
--- OUTSIDE RECORDS SUMMARY | 2024-01-27 07:41 | XMS_ITS | Encounter Summary ---
Author Organization [facility] Address [address] [facility] [place] [address] [place] [address] Care Team Providers Care Regional Intermodal Truck Driver Name Role Phone Mary Barber MD Unavailable Qasim Garrett DO Primary Care Provider [phone] Tiffany Badillo MD Unavailable [phone] Erick Abdi MD Unavailable [phone] Jim Tamez MD Unavailable Encounter Details Date Type Department Care Team (Late st Contact Info) Description 11/02/2020 Hospital Orders Only [facility] Anesthesia [address] [place] [address] Melia Buenrostro Anesthesia Record Procedure Summary Procedure Name Responsible Anesthesiologist Anesthesia Start Time Anesthesia Stop Time XA A-FIB ABLATION Dahiana Mary MD,PHD 11/06/20 1018 10/11 09/29 1329 Events [...] acknowledgement of understanding. 1329 An Stop Meds * Agents No agents on file. * Blood No blood administrations on file. Lines, Drains, and Airways Type Details Placement Removal Wound 03/28/19; 0030; Heel ; Right; Pressure ulcer/injury 03/28/19 0030 by Jonas Garcia RN Supraglottic Airway Placement Date: 08/26; Placement Time: 1346; Airway Device: Nasal prong; Removal Date: 11/06/20; Removal Time: 1310 (removed prior to this hospital admission) 01/15/18 1346 by Ruth Myers CRNA 11/06/20 1310 by Ericka Pop RN ETT [...] By: PERFECTO; Removal Date: 11/06/20; Removal Time: 1315 11/06/20 1033 by Elissa Beckham CRNA 11/06/20 1315 by Elissa Beckham CRNA Peripheral IV Placement Date: 10/11 09/29; Placement Time: 1033; Placed Outside of This Facility?: No; Size: 18 G; Orientation: Right; Location: Forearm; Site Prep: Chlorhexidine; Local Anesthetic: None; Inserted By: DR. MARY; Insertion attempts: 1; Ultrasound-guided Placement?: No; Patient Tolerance: Other (Comment); Removal Date: 11/07/20; Removal Time: 0935 11/06/20 1033 by Elissa Beckham CRNA 11/07/20 0935 by Ericka Pop RN Arterial Line Placement Date: 10/11 09/29; Placement Time: 1041 (created via procedure documentation); Placed Outside of This Facility?: No; Size: 20; Orientation: Right; Location: Radial; Site Prep: Chlorhexidine; Local Anesthetic: None; Insertion Attempts: 1; Patient Tolerance: Other (Comment) (GENERAL ANESTHESIA); Removal Date: 11/06/20; Removal Time: 1456; Removal Reason: Therapy Completed 11/06/20 1041 by Elissa Beckham CRNA 11/06/20 1457 by Valeria Kolb RN documented in this encounter Social History Tobacco Use Types Packs/Day Years Used Date Smoking Tobacco: Former Cigarettes Q uit: 1971 Smokeless Tobacco: Never Alcohol Use Standard Drinks/Week [...] Organization Meetings Never 03/27/2019 Marital Status 03/27/2019 [facility] of Occupat ional Health - Occupational Stress [...] have Coronavirus / COVID-19? No / Unsure 10/31/2020 8:37 AM CDT documented as of this encounter Functional Status * RETIRED Are you deaf or do you have serious difficulty hearing Answer Date of Assessment Author Status No 03/28/2019 12:00 AM BELLHOP SERVICE CAPTAIN 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 Answer Date of Assessment Author Status No 03/28/2019 12:00 AM BELLHOP SERVICE CAPTAIN Acti ve * Do you have serious difficulty walking or climbing stairs? Answer Date of Assessment Author Status Yes 03/28/2019 12:00 AM Jonas Collins RN Active * Do you have difficulty [...] decisions? Answer Entry Date Author Status No 03/28/2019 12:00 AM Jonas Collins RN Active documented in this encounter Plan of Treatment Upcoming Encounters Date Type Department Care Team (Late st Contact Info) Description 02/15/2024 1:30 PM BELLHOP SERVICE CAPTAIN [facility] [address] [place] [phone] Tyrell Leiva PA-C [address] [place] [address] 02/15/2024 1:30 PM BELLHOP SERVICE CAPTAIN [facility] [address] [place] [phone] Mary Barber MD [address] [place] [phone] 03/15/2024 11:15 AM BELLHOP SERVICE CAPTAIN Office Visit [facility] [address] [facility] [place] [address] Jim Tamez MD [address] [place], [place] [phone] 05/16/2024 1:15 AM CDT Allied Health/Nurse Visit [facility] [address] [place] [phone] Mary Barber MD [address] [place] [address] 09/07/2024 9:00 AM CDT Office Visit [facility] [address] [facility] [place] [phone] Tiffany Badillo MD [address] [place], [place] [phone] documented as of this encounter Visit Diagnoses Not on filedocumented in this encounter Care Teams Regional Intermodal Truck Driver Relationship Specialty Start Date End Date Qasim Garrett DO [address] [place] [address] PCP - General FAMILY PRACTICE 04/13/19 Mary Barber MD [address] [place] [phone] EP Food Porter CLINICAL CARDIAC ELECTROPHYSIOLOGY 09/15/16 Tiffany Badillo MD [address] [place] [address] Consulting Physician INTERVENTIONAL CARDIOLOGY 12/23/19 Erick Abdi MD [address] [place] [phone] Consulting Physician PAIN MANAGEMENT 09/06/20 Jim Tamez MD [address] [place] [address] Consulting Physician INTERNAL MEDICINE 09/10/23 documented as of this encounter
--- OUTSIDE RECORDS SUMMARY | 2024-01-27 07:41 | XMS_ITS | Encounter Summary ---
Author Organization [facility] Address [address] [facility] [place] [address] [place] [address] Care Team Providers Care Medical Office Clerk Name Role Phone Mary Barber MD Unavailable Qasim Garrett DO Primary Care Provider [phone] Tiffany Badillo MD Unavailable [phone] Erick Abdi MD Unavailable [phone] Encounter Details Date Type Department Care Team (Latest Contact Info) Description 10/31/2020 9:25 AM CDT - 10/31/2020 10:00 AM T Hospital Encounter [facility] [address] [place] [address] Mary Barber MD [address] [place] [address] Discharge Disposition: Home or Self [...] Organization Meetings Never 03/27/2019 Marital Status 03/27/2019 [facility] of Occupat ional Health - [...] Assessment Author Status No 03/28/2019 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 Answer Date of Assessment Author Status No 03/28/2019 12:00 AM RACK PRODUCTION WORKER Acti ve * Do you have serious [...] Collins RN Active documented in this encounter Medications [...] mouth daily. 90 tablet 3 02/23/2020 06/03/2021 Multiple Vitamins-Minerals (CENTRUM ADULTS OR) Take 1 tablet by mouth daily. 11/06/2020 ROSUVASTATIN 40 MG tablet TAKE 1 TABLET AT BEDTIME 90 tablet 3 10/01/2020 09/19/2021 sacubitril-valsar lundberg (ENTRESTO) 24-26 MG tablet Take 1 tablet by mouth 2 (two) times daily. 60 tablet 11 05/22/2020 11/06/2020 SPIRONOLACTONE 25 MG tablet TAKE 1/2 TABLET BY MOUTH EVERY DAY 45 tablet 3 08/06/2020 07/29/2021 documented as of this encounter Plan of Treatment Upcoming Encounters Date Type Department Care Team (Late st Contact Info) Description 02/15/2024 1:30 PM RACK PRODUCTION WORKER [facility] [address] [place] [phone] Tyrell Leiva PA-C [address] [place] [address] 02/15/2024 1:30 PM RACK PRODUCTION WORKER Allied Health/Nurse Visit [facility] [address] [place] [phone] Mary Barber MD [address] [place] [phone] 03/15/2024 11:15 AM RACK PRODUCTION WORKER [facility] [place] [address] [place] [address] Jim Tamez MD [address], [place] [phone] 05/16/2024 1:15 AM CDT Allied Health/Nurse Visit [facility] [address] [place] [address] Mary Barber MD [address] [place] [phone] 09/07/2024 9:00 AM CDT Office [facility] [place] [address] [place] [address] Tiffany Badillo MD [address] [place] [address] documented as of this encounter Procedures Procedure Name Priority Date/Time Associated Diagnosis Comments TYPE & SCREEN Routine 10/31/2020 9:39 AM CDT Current use of terminal manager anticoagulation Pre-op testing COMPREHENSIVE METABOLIC PANEL Routine 10/31/2020 9:39 AM CDT Current use of care home anticoagulation Pre-op testing CBC W/DIFF AUTOMATED Routine 10/31/2020 9:30 AM CDT Current use of terminal manager anticoagulation Pre-op testing documented in this encounter Results * (ABNORMAL) COMPREHENSIVE METABOLIC PANEL (10/31/2020 9:39 AM CDT) [facility] SODIUM S/P/B 137 136 - 145 MMOL/L 10/31/2020 10:44 AM CDT [facility] POTASSIUM S/P/B 3.9 3.5 - 5.1 MMOL/L 10/31/2020 10:44 AM CDT [facility] CHLORIDE S/P/B 107 98 - 107 MMOL/L 10/31/2020 10:44 AM CDT [facility] CO2 28.5 21.0 - 32.0 MMOL/L 10/31/2020 10:44 AM CDT [facility] GLUCOSE 98 74 - 106 MG/DL 10/31/2020 10:44 AM CDT [facility] BUN 31(H) 7 - 18 MG/DL 10/31/2020 10:44 AM CDT [facility] CREATININE S/P/B 1.06(H) 0.55 - 1.02 MG/DL 10/31/2020 10:44 AM CDT [facility] CALCIUM S/P/B 8.9 8.5 - 10.1 MG/DL 10/31/2020 10:44 AM CDT [facility] BILIRUBIN TOTAL S/P/B 0.4 0.2 - 1.0 MG/DL 10/31/2020 10:44 AM CDT [facility] ALKALINE PHOSPHATASE S/P/B 101 55 - 142 U/L 10/31/2020 10:44 AM CDT [facility] AST 21 15 - 37 U/L 10/31/2020 10:44 AM CDT [facility] ALT 21 13 - 56 U/L 10/31/2020 10:44 AM CDT [facility] TOTAL PROTEIN S/P/B 7.8 6.4 - 8.2 G/DL 10/31/2020 10:44 AM CDT [facility] ALBUMIN S/P/B 3.2(L) 3.4 - 5.0 G/DL 10/31/2020 10:44 AM CDT [facility] ANION GAP 1.5(L) 5.0 - 15.0 MMOL/L 10/31/2020 10:44 AM T [facility] OSMOLALITY (CALC) 291 MOSM/KG 021 10:44 AM T [facility] Comment:REFERENCE RANGE NOT ESTABLISHED EGFR NON-AFR. AMER. 48(L) >90 ML/MIN/1. 73 M2 10/31/2020 10:44 AM CDT [facility] EGFR AFR. AMER. 55(L) >90 ML/MIN/1. 73 M2 10/31/2020 10:44 AM T [facility] GFR NOTES GFR REFERENCE S: 10/31/2020 10:44 AM T [facility] Comment: THE ESTIMATED GFR IS CALCULATED [...] ml/min/1.73 m2 G5,KIDNEY FAILURE: <15 ml/min/1.73 m2 10/31/2020 9:39 AM CDT us Mary Barber MD LABORATORY Final Result Performing Organization Address [facility] Co de Phone Number [facility] [address] [place] [address], [phone] * Type & Screen ([facility] Epic Use Only) (10/31/2020 9:39 AM CDT) ABO/RH O POSITIVE 10/31/2020 11:05 AM CDT [facility] ANTIBODY SCREEN NEGATIVE 10/31/2020 11:05 AM CDT [facility] SAMPLE EXPIRATION 11/09/2020,2 359 10/31/2020 10:16 AM CDT [facility] 10/31/2020 9:39 AM CDT us Mary Barber MD BLOOD BANK TEST ORDERABLES Final Result Performing Organization Address [facility] de Phone Number [facility] [address] [place] [address], [phone] * (ABNORMAL) CBC W/DIFF AUTOMATED (10/31/2020 9:30 AM CDT) WBC 6.6 4.0 - 10.8 x10'3/uL 10/31/2020 9:55 AM CDT [facility] RBC 4.06(L) 4.10 - 5.40 x10'6/uL 10/31/2020 9:55 AM CDT [facility] HGB 12.2 12.0 - 16.0 G/DL 10/31/2020 9:55 AM CDT [facility] HCT 38.5 36.0 - 47.0 % 10/31/2020 9:55 AM CDT [facility] MCV 94.8 78.0 - 100.0 FL 10/31/2020 9:55 AM CDT [facility] MCH 30.0 27.0 - 31.0 PG 10/31/2020 9:55 AM CDT [facility] MCHC 31.7(L) 33.0 - 36.0 G/DL 10/31/2020 9:55 AM CDT [facility] RDW 14.6(H) 11.5 - 14.5 % 10/31/2020 9:55 AM CDT [facility] PLT 193 150 - 350 x10'3/uL 10/31/2020 9:55 AM CDT [facility] MPV 8.7 7.4 - 10.4 FL 10/31/2020 9:55 AM CDT [facility] ABS. NEUTROPHILS 4.73 1.60 - 8.30 x10'3/uL 10/31/2020 9:55 AM CDT [facility] ABS. LYMPHOCYTES 1.10 0.80 - 4.70 x10'3/uL 10/31/2020 9:55 AM CDT [facility] ABS. MONOCYTES 0.50 0.00 - 1.50 x10'3/uL 10/31/2020 9:55 AM CDT [facility] ABS. EOSINOPHILS 0.19 0.00 - 0.40 x10'3/uL 10/31/2020 9:55 AM CDT [facility] ABS. BASOPHILS 0.02 0.00 - 0.20 x10'3/uL 10/31/2020 9:55 AM CDT [facility] ABS. IMMATURE GRANULOCYTES 0.01 0.00 - 0.03 x10'3/uL 10/31/2020 9:55 AM CDT [facility] ABS. NUCLEATED RBC'S 0.00 0.0 x10'3/uL 10/31/2020 9:55 AM CDT [facility] 10/31/2020 9:30 AM CDT us Mary Barber MD LABORATORY Final Result [facility] [address] [place] [address], [phone] documented in this encounter Visit Diagnoses Diagnosis Current use of terminal manager anticoagulation Encounter for long-term (current) use of anticoagulants Pre-op testing Preoperative examination, unspecified documented in this encounter Care Teams Medical Office Clerk Relationship Specialty Start Date End Date Qasim Garrett DO [address] [place] [address] PCP - General FAMILY PRACTICE 04/13/19 Mary Barber MD [address] [place] [phone] EP Neon Pumper CLINICAL CARDIAC ELECTROPHYSIOLOGY 09/15/16 Tiffany Badillo MD [address] [place] [phone] Consulting Physician INTERVENTIONAL CARDIOLOGY 12/23/19 Erick Abdi MD [address] [place] [address] Consulting Physician PAIN MANAGEMENT 09/06/20 documented as of this encounter
--- OUTSIDE RECORDS SUMMARY | 2024-01-27 07:41 | XMS_ITS | Encounter Summary ---
Author Organization [facility] Address [address] [facility] [place] [address] [place] [address] Care Team Providers Care Civil Preparedness Training Officer Name Role Phone Mary Barber MD Unavailable Qasim Garrett DO Primary Care Provider [phone] Tiffany Badillo MD Unavailable [phone] Erick Abdi MD Unavailable [phone] Encounter Details Date Type Department Care Team (Latest Contact Info) Description 11/06/2020 Travel Social History Tobacco Use Types Packs/Day [...] Organization Meetings Never 03/27/2019 Marital Status 03/27/2019 [facility] [place] of Occupat ional Health - Occupational Stress [...] as of this encounter Functional Status * Question Answer Date of Assessment Author Status Do you have serious difficulty walking or climbing stairs? No 11/06/2020 3:38 PM CDT Ericka Pop RN Activ e * Question Answer Date of Assessment Author Status Do you have difficulty dressing or bathing? No 11/06/2020 3:38 PM Ericka Hayes RN A ctive Because of a physical, mental, or emotional condition, do you have difficulty doing errands alone such as visiting a doctor's office or shopping? No 11/06/2020 3:38 PM Ericka Hayes RN Active * RETIRED Are you deaf [...] Date Type Department Care Team (Late st [facility]) Description 02/15/2024 1:30 PM ROD WELDER Office Visit [facility] ld [address] [place] [address] Tyrell Leiva, PA-C [address] [place] [address] 02/15/2024 1:30 PM ROD WELDER Allied Health/Nurse Visit [facility] ld [address] [place] [address] Mary Barber MD [address] [place] [address] 03/15/2024 11:15 AM ROD WELDER Office Visit [facility] [place] [address] Jim Tamez MD [address] [place] [address] 05/16/2024 1:15 AM CDT Allied Health/Nurse Visit [facility] [address] [place] [address] Mary Barber MD [address] [place] [address] 09/07/2024 9:00 AM CDT Office Visit [facility] [place] [address] Tiffany Badillo MD [address] [place], [place] [address] documented as of this encounter Visit Diagnoses Not on filedocumented in this encounter Care Teams Civil Preparedness Training Officer Relationship Specialty Start Date End Date Qasim Garrett DO [address] [place] [address] PCP - General FAMILY PRACTICE 04/13/19 Mary Barber MD [address] [place] [phone] Interpreter CLINICAL CARDIAC ELECTROPHYSIOLOGY 09/15/16 Tiffany Badillo MD [address] [place] [phone] Consulting Physician INTERVENTIONAL CARDIOLOGY 12/23/19 Erick Abdi MD [address] [place] [phone] Consulting Physician PAIN MANAGEMENT 09/06/20 documented as of this encounter
--- OUTSIDE RECORDS SUMMARY | 2024-01-27 07:41 | XMS_ITS | Encounter Summary ---
Author Organization [facility] Address [address] [facility] [place] [address] [place] [address] Care Team Providers Care Director Of Early Childhood Name Role Phone Mary Barber MD Unavailable Qasim Garrett DO Primary Care Provider [phone] Tiffany Badillo MD Unavailable [phone] Erick Abdi MD Unavailable [phone] Encounter Details Date Type Department Care Team (Latest Contact Info) Description 10/31/2020 Travel Social History Tobacco Use Types Packs/Day [...] than three times a week 03/27/2019 Attends Congregation Services Not on file 03/27 Active Member of Clubs or Organizations Not on f ile 03/27/2019 Attends Club or Organization Meetings Never 03/27/2019 Marital Status 03/27/2019 [facility] [place] of Occupat ional Health - Occupational Stress [...] Assessment Author Status No 03/28/2019 12:00 AM PRODUCTION 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 Answer Date of Assessment Author Status No 03/28/2019 12:00 AM PRODUCTION SUPPLY EQUIPMENT TENDER Acti ve * Do you have serious [...] Contact Info) Description 02/15/2024 1:30 PM PRODUCTION SUPPLY EQUIPMENT TENDER [facility] [address] [place] [address] Tyrell Leiva, PA-C [address] [place] [address] 02/15/2024 1:30 PM PRODUCTION SUPPLY EQUIPMENT TENDER Allied Health/Nurse Visit [facility] [address] [place] [address] Mary Barber MD [address] [place] [address] 03/15/2024 11:15 AM PRODUCTION SUPPLY EQUIPMENT TENDER Office Visit [facility] [place] [address] [place] [address] Jim Tamez MD [address] [place] [address] 05/16/2024 1:15 AM CDT Allied Health/Nurse Visit [facility] ld [address] [place] [address] Mary Barber MD [address] [place] [address] 09/07/2024 9:00 AM CDT Office Visit [facility] [place] [address] [place] [address] Tiffany Badillo MD [address] [place] [address] documented as of this encounter Visit Diagnoses Not on filedocumented in this encounter Care Teams Director Of Early Childhood Relationship Specialty Start Date End Date Qasim Garrett DO [address] [place] [address] PCP - General FAMILY PRACTICE 04/13/19 Mary Barber MD [address] [place] [phone] EP Beamster CLINICAL CARDIAC ELECTROPHYSIOLOGY 09/15/16 Tiffany Badillo MD [address] [place], [place] [address] Consulting Physician INTERVENTIONAL CARDIOLOGY 12/23/19 Erick Abdi MD [address] [address] Consulting Physician PAIN MANAGEMENT 09/06/20 documented as of this encounter
--- OUTSIDE RECORDS SUMMARY | 2024-01-27 07:42 | XMS_ITS | Encounter Summary ---
Author Organization [facility] Address [address] [facility] [place] [address] [place] [address] Care Team Providers Care Oriental Rug Repairer Name Role Phone Mary Barber MD Unavailable Qasim Garrett DO Primary Care Provider [phone] Tiffany Badillo MD Unavailable [phone] Erick Abdi MD Unavailable [phone] Reason for Referral * Imaging (Routine) - Closed Specialty Diagnoses / Procedures Referred By Contac t Referred To Contact RADIOLOGY Diagnoses Paroxysmal atrial fibrillation ([facility]/HCC HHS/HCC) Procedures CTA HEART W 3D IMAGING Mary Barber MD [address] [place] [address] Phone: tel: fax: Referral ID Status Reason Start Date Expiration Date Visits Re quested Visits Authorized [id number] Closed 10/12/2020 11/12/2021 1 1 Reason for Visit * Imaging (Routine) - Closed Specialty Diagnoses / Procedures Referred By Contac t Referred To Contact RADIOLOGY Diagnoses Paroxysmal atrial fibrillation ([facility]/HCC HHS/HCC) Procedures CTA HEART W 3D IMAGING Mary Barber MD [address] [place] [address] Phone: tel: fax: Referral ID Status Reason Start Date Expiration Date Visits Re quested Visits Authorized [id number] Closed 10/12/2020 11/12/2021 1 1 Encounter Details Date Type Department Care Team (Latest Contact Info) Description 10/31/2020 10:01 AM CDT - 10/31/2020 11:59 PM CDT Hospital Encounter 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 Answer Date of Assessment Author Status No 03/28/2019 12:00 AM VAMP MAKER Acti ve * Do you have serious [...] st Contact Info) Description 02/15/2024 1:30 PM VAMP MAKER [facility] [address] [place] [address] Tyrell Leiva, PA-C [address] [place] [address] 02/15/2024 1:30 PM VAMP MAKER Allied Health/Nurse Visit [facility] [address] [place] [phone] Mary Barber MD [address] [place] [address] 03/15/2024 11:15 AM VAMP MAKER Office Visit [facility] [address] [place] [address] Jim Tamez MD [address] [place], [place] [address] 05/16/2024 1:15 AM CDT Allied Health/Nurse Visit [facility] [address] [place] [address] Mary Barber MD [address] [place] [address] 09/07/2024 9:00 AM CDT Office Visit [address] [place] [address] Tiffany Badillo MD [address] [place], [place] [address] documented as of this encounter Procedures Procedure Name Priority Date/Time Associated Diagnosis Comments CTA HEART W 3D IMAGING Routine 10/31/2020 10:36 AM CDT Paroxysmal atrial fibrillation ([facility]) documented in this encounter Results * CTA HEART W 3D IMAGING (10/31/2020 10:36 AM CDT) Anatomical Region Laterality Modality Cardiac Computed Tomogra phy 10/31/2020 11:5 8 AM CDT Impressions 10/31/2020 12:12 PM CDT IMPRESSION: 1. Normal pulmonary venous anatomy. 2. No evidence for pulmonary vein stenosis. 3. No left atrial or appendageal thrombus. 4. Severe left atrial chamber enlargement. 5. Coronary artery calcifications. 6. Diffuse esophageal wall thickening. Indeterminate etiology. Referred By: MARY BARBER Interpreted By: Goyo Veronica MD, 10/31/2020 11:58 AM Narrative 10/31/2020 12:12 PM CDT EXAMINATION: CARDIAC COMPUTED TOMOGRAPHY ANGIOGRAM, CTA PULMONARY VEINS DATE: 10/31/2020 HISTORY: ??85 years-year old Female for pre-radiofrequency ablation of pulmonary vein ostia assessment. Atrial fibrillation. COMPARISON: None. TECHNIQUE: Multidetector computerized tomography coronary angiogram was obtained using no ECG gating after the administration of 80 mL of Isovue-370 intravenous contrast at 5 mL/sec with 50 mL saline push according to CTA pulmonary vein ablation protocol. In order to provide better evaluation of the anatomy and disease process, advanced off-line 3-D post processing techniques, including 3-D volume rendered images were performed at separate dedicated independent 3-D workstation. A dose lowering technique was used for this procedure, which may include, but is not limited to, dose reduction technique, automated exposure control, the use of iterative reconstruction, and ALARA (As Low As Reasonably Achievable) / Image Gently techniques. Procedure Complications/Allergic Reactions: None. Examination Quality: The overall quality of the examination is fair, limited by cardiac motion. FINDINGS: PULMONARY VEINS: Pulmonary vein anatomy: A total of 4 pulmonary veins entering the left atrium; 2 right pulmonary veins and 2 left pulmonary veins. No evidence for pulmonary vein stenosis. Bidirectional measurements of the pulmonary veins are as follows: 1. ??Right superior: 23 x 18 mm 2. ??Right inferior: 20 x 19 mm 3. ??Left superior: 22 x 12 mm 4. ??Left inferior: 18 x 16 mm ESOPHAGUS: Abuts ostia of left inferior pulmonary vein. LEFT ATRIUM: The left atrium is severely enlarged and is normally opacified. The left atrial appendage is normally opacified. OTHER CARDIAC FINDINGS: Coronary origins are normal. Coronary artery calcifications. Beyond this, coronary assessment was not possible. No large defect in the septum of atrium or ventricle. Normal pericardium. No significant pericardial effusion. Implantable cardiac device. EXTRACARDIAC FINDINGS: The visible lungs contain no suspicious lung nodule, mass, consolidation. Approximately 8 mm lobular nodule, lingula, unchanged. Sub-6 mm lung nodule, left lower lobe, unchanged. The visualized thoracic aorta is normal. Visualized pulmonary artery appears normal. Elevation of left hemidiaphragm with concomitant atelectasis. Diffuse esophageal wall thickening especially in the visualized lower aspect. Clips in the stomach. Old rib fracture. Procedure Note Goyo Veronica MD - 10/31/2020 EXAMINATION: CARDIAC COMPUTED TOMOGRAPHY ANGIOGRAM, CTA PULMONARY VEINS DATE: 10/31/2020 HISTORY: 85 years-year old Female for pre-radiofrequency ablation ofpulmonary vein ostia assessment. Atrial fibrillation. COMPARISON: None. TECHNIQUE: Multidetector computerized tomography coronary angiogram wasobtained using no ECG gating after the administration of 80 mL ofIsovue-370 intravenous contrast at 5 mL/sec with 50 mL saline pushaccording to CTA pulmonary vein ablation protocol. In order to providebetter evaluation of the anatomy and disease process, advanced off-line3-D post processing techniques, including 3-D volume rendered images wereperformed at separate dedicated independent 3-D workstation. A doselowering technique was used for this procedure, which may include, but isnot limited to, dose reduction technique, automated exposure control, theuse of iterative reconstruction, and ALARA (As Low As ReasonablyAchievable) / Image Gently techniques. Procedure Complications/Allergic Reactions: None. Examination Quality: The overall quality of the examination is fair,limited by cardiac motion. FINDINGS: PULMONARY VEINS: Pulmonary vein anatomy: A total of 4 pulmonary veins entering the leftatrium; 2 right pulmonary veins and 2 left pulmonary veins. No evidence for pulmonary vein stenosis. Bidirectional measurements of the pulmonary veins are as follows: 1. Right superior: 23 x 18 mm 2. Right inferior: 20 x 19 mm 3. Left superior: 22 x 12 mm 4. Left inferior: 18 x 16 mm ESOPHAGUS: Abuts ostia of left inferior pulmonary vein. LEFT ATRIUM: The left atrium is severely enlarged and is normally opacified. The leftatrial appendage is normally opacified. OTHER CARDIAC FINDINGS: Coronary origins are normal. Coronary arterycalcifications. Beyond this, coronary assessment was not possible. Nolarge defect in the septum of atrium or ventricle. Normal pericardium. Nosignificant pericardial effusion. Implantable cardiac device. EXTRACARDIAC FINDINGS: The visible lungs contain no suspicious lungnodule, mass, consolidation. Approximately 8 mm lobular nodule, lingula,unchanged. Sub-6 mm lung nodule, left lower lobe, unchanged. Thevisualized thoracic aorta is normal. Visualized pulmonary artery appearsnormal. Elevation of left hemidiaphragm with concomitant atelectasis.Diffuse esophageal wall thickening especially in the visualized loweraspect. Clips in the stomach. Old rib fracture. IMPRESSION: 1. Normal pulmonary venous anatomy. 2. No evidence for pulmonary vein stenosis. 3. No left atrial or appendageal thrombus. 4. Severe left atrial chamber enlargement. 5. Coronary artery calcifications. 6. Diffuse esophageal wall thickening. Indeterminate etiology. Referred By: MARY BARBER Interpreted By: Goyo Veronica MD, 10/31/2020 11:58 AM Mary Barber MD CT Final Result documented in this encounter Visit Diagnoses Diagnosis Paroxysmal atrial fibrillation ([facility] HHS/HCC) Atrial fibrillation documented in this encounter Administered Medications Inactive Administered Medications - up to 3 most recent administrations Medication Order MAR Action Action Date Dose Rate Site iopamidol (ISOVUE-370) 76 % injection 80 mL 80 mL, Intravenous, IMG once as needed, Contrast, 1 dose, Starting on Thu10/31/20 at 1036, Until Thu10/31/20 at 1036 Given 10/31/2020 10:36 AM CDT 80 mLs documented in this encounter Care Teams Oriental Rug Repairer Relationship Specialty Start Date End Date Qasim Garrett DO [address] [place] [address] PCP - General FAMILY PRACTICE 04/13/19 Mary Barber MD [address] [place] [phone] EP Progress Man CLINICAL CARDIAC ELECTROPHYSIOLOGY 09/15/16 Tiffany Badillo MD [address] [place] [address] Consulting Physician INTERVENTIONAL CARDIOLOGY 12/23/19 Erick Abdi MD [address] [place] [address] Consulting Physician PAIN MANAGEMENT 09/06/20 documented as of this encounter
--- OUTSIDE RECORDS SUMMARY | 2024-01-27 07:42 | XMS_ITS | Encounter Summary ---
Author Organization [facility] Address [address] [place] [address] [place] [address] Care Team Providers Care Project Administrative Assistant Name Role Phone Mary Barber MD Unavailable Qasim Rolon DO Primary Care Provider [phone] Tiffany Badillo MD Unavailable [phone] Erick Abdi MD Unavailable [phone] Reason for Visit * Reason Comments Atrial Fibrillation Encounter Details Date Type Department Care Team (Late st Contact Info) Description 10/31/2020 9:00 AM CDT Office Visit [facility] [address] [place] [phone] Shae Leiva, PA-C [address] [place] [address] Atrial Fibrillation Social History Tobacco Use Types [...] Organization Meetings Never 03/27/2019 Marital Status 03/27/2019 [facility] [place] of Occupat ional Health - Occupational Stress [...] Reading Time Taken Comments Blood Pressure 120/62 10/31/2020 8:49 AM CDT Pulse 72 10/31/2020 8:49 AM CDT EKG Temperature - - Respiratory Rate 18 10/31/2020 8:49 AM CDT Oxygen Saturation - - Inhaled Oxygen Concentration - - Weight 85.4 kg (188 lb 3.2 oz) 10/31/2020 8:49 A M CDT Height 160 cm (5' 3 ) 10/31/2020 8:49 AM CDT Body Mass Index 33.34 10/31/2020 8:49 AM CDT documented in this encounter Functional Status * RETIRED Are you deaf or do you have serious difficulty hearing Answer Date of Assessment Author Status No 03/28/2019 12:00 AM SIZE MIXER 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 Answer Date of Assessment Author Status No 03/28/2019 12:00 AM SIZE MIXER Acti ve * Do you have serious [...] Collins RN Active documented in this encounter Patient Instructions * Patient Instructions* Shae Leiva PA-C - 10/31/2020 9:00 AM CDT Proceed with catheter ablation of atrial fibrillation. documented in this encounter Progress Notes * Shae Leiva PA-C - 10/31/2020 9:00 AM CDT Images from the original note were not included. Cardiac Electrophysiology Clinic Note PATIENT NAME: Rakan Shaw : 1935 REFERRING PROVIDER: Qasim Rolon DO PCP: QASIM ROLON DO Reason for Visit Atrial fibrillation with failed cardioversion, pre-catheter ablation of atrial fibrillation History of Present Illness Ms. Shaw is a very pleasant,??85-year-old female with a history of paroxysmal atrial fibrillation with rapid ventricular response, refractory??to??medical therapy.??She??underwent ablation of the AV node and implantation of a dual- chamber [employer] pacemaker in April 2006. She used to beon Coumadin for stroke prevention; however, this was stopped in 2007 due to a subdural hematoma requiring evacuation. The patient developed severe nonischemic cardiomyopathy, likely induced by right ventricular pacing, prompting upgrade of the pacemaker to a biventricular [employer] ICD in March 2013. ?? Due [...] AV node and implantation of a dual-chamber [employer] pacemaker in April 2006. Atrial fibrillation has been persistent since April 2020. 2. Status post upgrade of pacemaker to a [employer] biventricular ICD in March 2013. Device [...] Problem Relation Name Age of Onset ??? HI Mother ??? HI Father ??? CABG Brother ??? Stent Brother [...] is normal. Judgment and thought contentnormal. Signed SHAE LEIVA PA-C 10/31/2020 documented in this encounter Plan of Treatment Upcoming Encounters Date Type Department Care Team (Late st Contact Info) Description 02/15/2024 1:30 PM SIZE MIXER Office Visit [facility] [address] [place] [address] Shae Leiva PA-C [address] [place] [address] 02/15/2024 1:30 PM SIZE MIXER Allied Health/Nurse Visit [facility] [address] [place] [address] Mary Barber MD [address] [place] [address] 03/15/2024 11:15 AM SIZE MIXER Office Visit [facility] [place] [address] Jim Tamez MD [address] [place] [address] 05/16/2024 1:15 AM CDT Allied Health/Nurse Visit [facility] [address] [place] [address] Mary Barber MD [address] [place] [address] 09/07/2024 9:00 AM CDT Office Visit [facility] [place] [address] Tiffany Badillo MD [address] [place], [place] [address] documented as of this encounter Procedures Procedure Name Priority Date/Time Associated Diagnosis Comments ELECTROCARDIOGRAM (NON MIDMARK ACQUIRED) Routine 10/31/2020 8:46 AM CDT Paroxysmal atrial fibrillation ([facility]/HCC [facility]) documented in this encounter Results * ELECTROCARDIOGRAM (10/31/2020 8:46 AM CDT) 10/31/2020 8:46 AM CDT Narrative [facility] - 11/06/2020 8:57 AM CDT ? [facility] ?[address] [place], [place] ??[address] ? Test Date: ?2020-10-31 Pat Name: ? RAKAN SHAW ?Department: ? Room: ? Gender: ? Female ? Hiv Prevention Specialist: ?? : ?1935 ? Requested By: MARY BARBER Order Number: [id number] ?Reading : ?? Magid John ? Measurements Intervals ?[place] ? Rate: ? 72 ? P: ? [place]: ? 0 ?QRS: ?116 QRSD: ? 129 ?T: ?79 QT: ? 454 ? QTc: ?498 ? Interpretive Statements ELECTRONIC VENTRICULAR PACEMAKER ABNORMAL RHYTHM ECG Procedure Note Magdi John MD - 11/06/2020 [facility] [address] [place] [address] Test Date: 2020-10-31 Pat Name: RAKAN SHAW Department: Room: Gender: Female Hiv Prevention Specialist: : 1935 Requested By: MARY BARBER Order Number: [id number] Reading MD: Magdi John Measurements Intervals [place] Rate: 72 P: [place]: 0 QRS: 116 QRSD: 129 T: 79 QT: 454 QTc: 498 Interpretive Statements ELECTRONIC VENTRICULAR PACEMAKER ABNORMAL RHYTHM ECG Mary Barber MD PROCEDURES-ORDERABLE NO CHARGE F inal Result [facility] documented in this encounter Visit Diagnoses Diagnosis Paroxysmal atrial fibrillation ([facility]/HCC HHS/HCC)- Primary Atrial fibrillation documented in this encounter Care Teams Project Administrative Assistant Relationship Specialty Start Date End Date Qasim Rolon DO [address] [place] [address] PCP - General FAMILY PRACTICE 04/13/19 Mary Barber MD [address] [place] [phone] EP Cupola Operator Insulation CLINICAL CARDIAC ELECTROPHYSIOLOGY 09/15/16 Tiffany Badillo MD [address] [place] [address] Consulting Physician INTERVENTIONAL CARDIOLOGY 12/23/19 Erick Abdi MD [address] [place] [address] Consulting Physician PAIN MANAGEMENT 09/06/20 documented as of this encounter
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
--- OUTSIDE RECORDS SUMMARY | 2024-01-27 07:43 | XMS_ITS | Encounter Summary ---
Author Organization [facility] Address [address] [place] [address] [place] [address] Care Team Providers Care Invasive Physician Name Role Phone Mary Barber MD Unavailable Qasim Garrett DO Primary Care Provider [phone] Tiffany Badillo MD Unavailable [phone] Erick Abdi MD Unavailable [phone] Encounter Details Date Type Department Care Team (Latest Contact Info) Description 10/04/2020 Travel Social History Tobacco Use Types Packs/Day [...] than three times a week 03/27/2019 Attends Sabianism Services Not on file 03/27 Active Member of Clubs or Organizations Not on f ile 03/27/2019 Attends Club or Organization Meetings Never 03/27/2019 Marital Status 03/27/2019 [facility] [place] of Occupat ional Health - Occupational Stress [...] Assessment Author Status No 03/28/2019 12:00 AM CARPENTER SHIP 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 Answer Date of Assessment Author Status No 03/28/2019 12:00 AM CARPENTER SHIP Acti ve * Do you have serious [...] st Contact Info) Description 02/15/2024 1:30 PM CARPENTER SHIP [facility] [address] [place] [address] Tyrell Leiva, PA-C [address] [place] [address] 02/15/2024 1:30 PM CARPENTER SHIP Allied Health/Nurse Visit [facility] [address] [place] [address] Mary Barber MD [address] [place] [address] 03/15/2024 11:15 AM CARPENTER SHIP Office Visit [facility] [place] [address] [place] [address] Jim Tamez MD [address] [place] [address] 05/16/2024 1:15 AM CDT Allied Health/Nurse Visit [facility] ld [address] [place] [phone] Mary Barber MD [address] [place] [address] 09/07/2024 9:00 AM CDT Office Visit [facility] [place] [address] [place] [address] Tiffany Badillo MD [address] [place] [address] documented as of this encounter Visit Diagnoses Not on filedocumented in this encounter Care Teams Invasive Physician Relationship Specialty Start Date End Date Qasim Garrett DO [address] [place] [address] PCP - General FAMILY PRACTICE 04/13/19 Mary Barber MD [address] [place] [phone] EP Financial Aid Administrator CLINICAL CARDIAC ELECTROPHYSIOLOGY 09/15/16 Tiffany Badillo MD [address] [place], [place] [address] Consulting Physician INTERVENTIONAL CARDIOLOGY 12/23/19 Erick Abdi MD [address] [address] Consulting Physician PAIN MANAGEMENT 09/06/20 documented as of this encounter
--- OUTSIDE RECORDS SUMMARY | 2024-01-27 07:43 | XMS_ITS | Encounter Summary ---
Author Organization [facility] Address [address] [facility]. [place], [place] [address] [place] [address] Care Team Providers Care Captain Room Service Name Role Phone Mary Barber MD Unavailable Qasim Garrett DO Primary Care Provider [phone] Tiffany Badillo MD Unavailable [phone] Erick Abdi MD Unavailable [phone] Reason for Referral * Imaging (Routine) - Closed Specialty Diagnoses / Procedures Referred By Contac t Referred To Contact RADIOLOGY Diagnoses Paroxysmal atrial fibrillation ([facility] HHS/HCC) Procedures XA A-FIB ABLATION Mary Barber MD [address] [place] [address] Phone: tel: fax: Referral ID Status Reason Start Date Expiration Date Visits Re quested Visits Authorized [id number] Closed 10/16/2020 11/16/2021 1 1 * Imaging (Routine) - Closed Specialty Diagnoses / Procedures Referred By Contac t Referred To Contact RADIOLOGY Diagnoses Paroxysmal atrial fibrillation ([facility] HHS/HCC) Procedures CTA HEART W 3D IMAGING Mary Barber MD [address] [place] [address] Phone: tel: fax: Referral ID Status Reason Start Date Expiration Date Visits Re quested Visits Authorized [id number] Closed 10/12/2020 11/12/2021 1 1 Reason for Visit * Reason Onset Date Comments Schedule Procedure 10/09/2020 Encounter Details Date Type Department Care Team ([facility] st Contact Info) Description 10/09/2020 Telephone [place] [facility] [address] [place] [address] Mary Barber MD [address] [place] [address] Schedule Procedure Social History Tobacco Use Types Packs/Day Years [...] than three times a week 03/27/2019 Attends [employer]oration Services Not on file 03/27 Active Member of Clubs or Organizations Not on f ile 03/27/2019 Attends Club or Organization Meetings Never 03/27/2019 Marital Status 03/27/2019 [facility] of Occupat ional Health - Occupational Stress [...] Assessment Author Status No 03/28/2019 12:00 AM FITTING ROOM ATTENDANT 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 Answer Date of Assessment Author Status No 03/28/2019 12:00 AM FITTING ROOM ATTENDANT Acti ve * Do you have serious [...] Collins RN Active documented in this encounter Progress Notes * Niharika Kelly RN - 10/16/2020 11:02 AM CDTAddended by: NIHARIKA KELLY on: 10/16/2020 11:02 AM Modules accepted: Orders * Niharika Kelly RN - 10/12/2020 9:51 AM CDTAddended by: NIHARIKA KELLY on: 10/12/2020 09:51 AM Modules accepted: Orders * Niharika Kelly RN - 10/12/2020 9:46 AM CDT Called Erika in regards Afib ablation being scheduled for patient. Procedure will be 11/06, start at 1030am, arrive at 730am. H&P scheduled with Edgardo on 10/31 at 9am, followed by labs and CTA. Erika verbalized understanding. Will mail letters with this information. * April Astudillo RN - 10/10/2020 12:28 PM CDT Patient's daughter called. She was following up to see when patient's procedure is scheduled. She thought it was to be GWENDOLYN per Dr. Barber in clinic. Informed her that the procedure nurse was made aware of the procedure needing scheduled. Dr. Barber'sschedule would probably be November. Daughter stated that was unacceptable and requested sign writer letterer or painter to speak with Dr. Barber. Spoke with Dr. Barber and Ananya Odell ROLLOFF TRUCK DRIVER. They are aware of situation. Informed daughter that they were aware that procedure would most likely be in November. Informed her that the procedure nurse will be calling her, Erika, at [phone]. She v/u and hadno further questions. * Ananya Guzman - 10/09/2020 10:47 AM CDT Patient's RENZO Erika called to get ablation scheduled for patient. Patient had a failed cardioversion last week 10/04. They would like to get this scheduled as soon as possible. Please call Erika at [phone] documented in this encounter Plan of Treatment Upcoming Encounters Date Type Department Care Team (Late st Contact Info) Description 02/15/2024 1:30 PM FITTING ROOM ATTENDANT Office Visit [facility] ld [address] [place] [address] Tyrell Leiva PA-C [address] [place] [address] 02/15/2024 1:30 PM FITTING ROOM ATTENDANT Allied Health/Nurse Visit [facility] [address] [place] [address] Mary Barber MD [address] [place] [address] 03/15/2024 11:15 AM FITTING ROOM ATTENDANT Office Visit [address] [place] [address] Jim Tamez MD [address] [place] [address] 05/16/2024 1:15 AM CDT Allied Health/Nurse Visit [facility] [address] [place] [address] Mary Barber MD [address] [place] [address] 09/07/2024 9:00 AM CDT Office Visit [address] [place] [address] Tiffany Badillo MD [address] [place] [address] Pending Results Name Type Priority Associated Diagnoses Date /Time XA A-FIB ABLATION Cardiac Cath Routine Paroxysmal atrial fibrillation ([facility]) 11/06/2020 1:25 PM CDT Scheduled Orders Name Type Priority Associated Diagnoses Orde r Schedule XA A-FIB ABLATION Cardiac Cath Routine Paroxysmal atrial fibrillation ([facility]) Expected: 11/06/2020, Expires: 10/16/2021 documented as of this encounter Results * CTA HEART W [...] AM Mary Barber MD CT Final Result * Type & Screen ([facility] Epic Use Only) (10/31/2020 9:39 AM CDT) ABO/RH O POSITIVE 10/31/2020 11:05 AM CDT [facility] ANTIBODY SCREEN NEGATIVE 10/31/2020 11:05 AM CDT [facility] SAMPLE EXPIRATION 11/09/2020,2 359 10/31/2020 10:16 AM CDT [facility] 10/31/2020 9:39 AM CDT Mary Barber MD BLOOD BANK TEST ORDERABLES Final Result [facility] [address] [place] [address], [id number] * (ABNORMAL) COMPREHENSIVE METABOLIC PANEL (10/31/2020 9:39 AM CDT) SODIUM S/P/B 137 136 - 145 MMOL/L 10/31/2020 10:44 AM CDT [facility] POTASSIUM S/P/B 3.9 3.5 - 5.1 MMOL/L 10/31/2020 10:44 AM CDT [facility] CHLORIDE S/P/B 107 98 - 107 MMOL/L 10/31/2020 10:44 AM CDT [facility] CO2 28.5 21.0 - 32.0 MMOL/L 10/31/2020 10:44 AM CDT [facility] GLUCOSE 98 74 - 106 MG/DL 10/31/2020 10:44 AM CDT [facility] BUN 31(H) 7 - 18 MG/DL 10/31/2020 10:44 AM CDT [facility] CREATININE S/P/B 1.06(H) 0.55 - 1.02 MG/DL 10/31/2020 10:44 AM CDT [facility] CALCIUM S/P/B 8.9 8.5 - 10.1 MG/DL 10/31/2020 10:44 AM CDT [facility] BILIRUBIN TOTAL S/P/B 0.4 0.2 - 1.0 MG/DL 10/31/2020 10:44 AM CDT [facility] ALKALINE PHOSPHATASE S/P/B 101 55 - 142 U/L 10/31/2020 10:44 AM CDT [facility] AST 21 15 - 37 U/L 10/31/2020 10:44 AM CDT [facility] ALT 21 13 - 56 U/L 10/31/2020 10:44 AM CDT [facility] TOTAL PROTEIN S/P/B 7.8 6.4 - 8.2 G/DL 10/31/2020 10:44 AM CDT [facility] ALBUMIN S/P/B 3.2(L) 3.4 - 5.0 G/DL 10/31/2020 10:44 AM CDT [facility] ANION GAP 1.5(L) 5.0 - 15.0 MMOL/L 10/31/2020 10:44 AM CDT [facility] OSMOLALITY (CALC) 291 MOSM/KG 021 10:44 AM CDT [facility] Comment:REFERENCE RANGE NOT ESTABLISHED EGFR NON-AFR. AMER. 48(L) >90 ML/MIN/1. 73 M2 10/31/2020 10:44 AM CDT [facility] EGFR AFR. AMER. 55(L) >90 ML/MIN/1. 73 M2 10/31/2020 10:44 AM CDT [facility] GFR NOTES GFR REFERENCE S: 10/31/2020 10:44 AM T [facility] Comment: THE ESTIMATED GFR IS CALCULATED [...] us Mary Barber MD LABORATORY Final Result [facility] [address] [place] [address], [id number] * (ABNORMAL) CBC W/DIFF AUTOMATED (10/31/2020 9:30 AM CDT) [facility] WBC 6.6 4.0 - 10.8 x10'3/uL 10/31/2020 9:55 AM CDT [facility] RBC 4.06(L) 4.10 - 5.40 x10'6/uL 10/31/2020 9:55 AM CDT [facility] HGB 12.2 12.0 - 16.0 G/DL 10/31/2020 9:55 AM CDT [facility] HCT 38.5 36.0 - 47.0 % 10/31/2020 9:55 AM CDT [facility] MCV 94.8 78.0 - 100.0 FL 10/31/2020 9:55 AM CDT [facility] MCH 30.0 27.0 - 31.0 PG 10/31/2020 9:55 AM CDT [facility] MCHC 31.7(L) 33.0 - 36.0 G/DL 10/31/2020 9:55 AM CDT [facility] RDW 14.6(H) 11.5 - 14.5 % 10/31/2020 9:55 AM CDT [facility] PLT 193 150 - 350 x10'3/uL 10/31/2020 9:55 AM CDT [facility] MPV 8.7 7.4 - 10.4 FL 10/31/2020 9:55 AM CDT [facility] ABS. NEUTROPHILS 4.73 1.60 - 8.30 x10'3/uL 10/31/2020 9:55 AM CDT [facility] ABS. LYMPHOCYTES 1.10 0.80 - 4.70 x10'3/uL 10/31/2020 9:55 AM CDT [facility] ABS. MONOCYTES 0.50 0.00 - 1.50 x10'3/uL 10/31/2020 9:55 AM CDT [facility] ABS. EOSINOPHILS 0.19 0.00 - 0.40 x10'3/uL 10/31/2020 9:55 AM CDT [facility] ABS. BASOPHILS 0.02 0.00 - 0.20 x10'3/uL 10/31/2020 9:55 AM CDT [facility] ABS. IMMATURE GRANULOCYTES 0.01 0.00 - 0.03 x10'3/uL 10/31/2020 9:55 AM CDT [facility] ABS. NUCLEATED RBC'S 0.00 0.0 x10'3/uL 10/31/2020 9:55 AM CDT [facility] 10/31/2020 9:30 AM CDT Mary Barber MD LABORATORY Final Result [facility] [address] [place] [address], [id number] documented in this encounter Visit Diagnoses Diagnosis Paroxysmal atrial fibrillation (CMS/HCC HHS/HCC)- Primary Atrial fibrillation Current use of exterminator helper anticoagulation Encounter for long-term (current) use of anticoagulants Pre-op testing Preoperative examination, unspecified Paroxysmal atrial fibrillation (CMS/HCC HHS/HCC) Atrial fibrillation documented in this encounter Care Teams Captain Room Service Relationship Specialty Start Date End Date Qasim Garrett DO [address] [place] [address] PCP - General FAMILY PRACTICE 04/13/19 Mary Barber MD [address] [place] [phone] EP Herb Counselor CLINICAL CARDIAC ELECTROPHYSIOLOGY 09/15/16 Tiffany Badillo MD [address] [place] [address] Consulting Physician INTERVENTIONAL CARDIOLOGY 12/23/19 Erick Abdi MD [address] [address] Consulting Physician PAIN MANAGEMENT 09/06/20 documented as of this encounter
--- OUTSIDE RECORDS SUMMARY | 2024-01-27 07:43 | XMS_ITS | Encounter Summary ---
Author Organization [facility] Address [address] [facility] [place] [address] [place] [address] Care Team Providers Care Mirror Installer Name Role Phone Mary Barber MD Unavailable Qasim Garrett DO Primary Care Provider [phone] Tiffany Badillo MD Unavailable [phone] Erick Abdi MD Unavailable [phone] Reason for Visit * Reason Onset Date Comments Information 10/08/2020 AT/AF alerts Encounter Details Date Type Department Care Team ([facility] st Contact Info) Description 10/08/2020 [facility] [address] [place] [address] Mary Barber MD [address] [place] [address] Information (AT/AF alerts) Social History Tobacco Use Types Packs/Day [...] than three times a week 03/27/2019 Attends [employer] Services Not on file 03/27 Active Member [...] Assessment Author Status No 03/28/2019 12:00 AM HARBOR ENGINEER 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 Answer Date of Assessment Author Status No 03/28/2019 12:00 AM HARBOR ENGINEER Acti ve * Do you have serious [...] Progress Notes * Dianna Marshall RN - 10/08/2020 8:51 AM CDT Remote transmission shows > 24 hrs afib. Unsuccessful DCCV 10/04/20. Known afib on Eliquis Per device clinic protocol, AT/AF alerts will be turned off in website until otherwise notified. Please notify device clinic if patient has an afib ablation or cardioversion in the future, so we can turn alerts back on. See allied health nurse visit for transmission documented in this encounter Plan of Treatment Upcoming Encounters Date Type Department Care Team (Late st Contact Info) Description 02/15/2024 1:30 PM HARBOR ENGINEER Office Visit [facility] ld [address] [place] [address] Tyrell Leiva PA-C [address] [place] [address] 02/15/2024 1:30 PM HARBOR ENGINEER Allied Health/Nurse Visit [facility] ld [address] [place] [address] [phone] Mary Barber MD [address] [place] [address] 03/15/2024 11:15 AM HARBOR ENGINEER Office Visit [facility] [place] [address] Jim Tamez MD [address] [place], [place] [address] 05/16/2024 1:15 AM CDT [facility] [address] [place] [address] Mary Barber MD [address] [place] [address] 09/07/2024 9:00 AM CDT Office Visit [facility] [place] [address] Tiffany Badillo MD [address] [place], [place] [address] documented as of this encounter Visit Diagnoses Not on filedocumented in this encounter Care Teams Mirror Installer Relationship Specialty Start Date End Date Qasim Garrett DO [address] [place] [address] PCP - General FAMILY PRACTICE 04/13/19 Mary Barber MD [address] [place] [address] EP Help Desk Operator CLINICAL CARDIAC ELECTROPHYSIOLOGY 09/15/16 Tiffany Badillo MD [address] [place], [place] [address] Consulting Physician INTERVENTIONAL CARDIOLOGY 12/23/19 Erick Abdi MD [address] [place] [phone] Consulting Physician PAIN MANAGEMENT 09/06/20 documented as of this encounter
--- OUTSIDE RECORDS SUMMARY | 2024-01-27 07:43 | XMS_ITS | Encounter Summary ---
Author Organization [facility] Address [address] [facility] [address] [place] [address] Care Team Providers Care Route Rider Supervisor Name Role Phone Mary Barber MD Unavailable Qasim Garrett DO Primary Care Provider [phone] Tiffany Badillo MD Unavailable [phone] Erick Abdi MD Unavailable [phone] Encounter Details Date Type Department Care Team (Late st Contact Info) Description 10/08/2020 10:15 AM CDT Allied Health/Nurse Visit [place] [facility] [address] [place] [address] Mary Barber MD [address] [place] [address] Social History Tobacco Use Types Packs/Day Years [...] Never 03/27/2019 Marital Status 03/27/2019 [facility] of Occupat ional Health - Occupational [...] Assessment Author Status No 03/28/2019 12:00 AM CAR RUNNER 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 Answer Date of Assessment Author Status No 03/28/2019 12:00 AM CAR RUNNER Acti ve * Do you have serious [...] Assessment Author Status No 03/28/2019 12:00 AM CAR RUNNER Jonas Garcia RN Active documented as of this encounter Mental Status * Because of a physical, mental, or emotional condition, do you have serious difficulty concentrating, remembering, or making decisions? Answer Entry Date Author Status No 03/28/2019 12:00 AM CAR RUNNER Jonas Garcia RN Active documented in this encounter Progress Notes * Dianna Marshall RN - 10/08/2020 10:15 AM CDT Images from the original note were not included. ICD REMOTE INTERROGATION NAME: Sera Shaffer : 1935 CSN: [id number] DATE OF INTERROGATION: 10/08/2020 FOLLOW UP E.P PHYSICIAN: Dr Mary Barber DEVICE SPECIFICATIONS DEVICE COURT USHER [place] SCIENTIFIC DEVICE TYPE BIV ICD EST. BATTERY LIFE OR CURRENT VOLTAGE/ROSALIND VOLTAGE 1.5 y LEAD IMPEDENCE TRENDS OK ATRIAL PACING % 0% RV PACING % 99% BIV/LVP PACING % 99% COMMENTS ATRIAL ARRHYTHMIAS AF BURDEN 100 % LONGEST EPISODE ORAL ANTICOAGULATION Eliquis/Apixaban and ASA COMMENTS VENTRICULAR ARRHYTHMIAS NSVT EPISODE(S) 0 VT EPISODE(S) 0 FVT EPISODE(S) 0 VF EPISODE(S) 0 COMMENTS ALERTS / NURSE COMMENTS ??? SEE ATTACHED PDF FOR VENDOR PRINTOUTS (PRESENTING, HISTOGRAMS, EGM???S) Per device clinic protocol, AT/AF alerts will be turned off in website until otherwise notified. Please notify device clinic if patient has an afib ablation or cardioversion in the future, so we can turn alerts back on. ??? Patient had an unsuccessful cardioversion 10/04/20 PHYSICIAN COMMENTS (IF ANY) ??? Cosigned by Mary Barber MD at 10/16/2020 9:26 AM CDT documented in this encounter Plan of Treatment Upcoming Encounters Date Type Department Care Team (Late st Contact Info) Description 02/15/2024 1:30 PM CAR RUNNER Office Visit [facility] ld [address] [place] [address] Tyrell Leiva PA-C [address] [place] [address] 02/15/2024 1:30 PM CAR RUNNER Allied Health/Nurse Visit [facility] ld [address] [place] [address] Mary Barber MD [address] [place] [address] 03/15/2024 11:15 AM CAR RUNNER Office Visit [place] [facility] [address] [place] [address] Jim Tamez MD [address] [place] [address] 05/16/2024 1:15 AM CDT Allied Health/Nurse Visit [facility] [address] [place] [address] Mary Barber MD [address] [place] [address] 09/07/2024 9:00 AM CDT Office Visit [place] [facility] [address] [place] [address] Tiffany Badillo MD [address] [place] [address] documented as of this encounter Visit Diagnoses Diagnosis VT (ventricular tachycardia) ([facility]/HCC HHS/HCC) Paroxysmal ventricular tachycardia documented in this encounter Care Teams Route Rider Supervisor Relationship Specialty Start Date End Date Qasim Garrett DO [address] [place] [address] PCP - General FAMILY PRACTICE 04/13/19 Mary Barber MD [address] [place] [phone] EP Production Superintendent Hydro CLINICAL CARDIAC ELECTROPHYSIOLOGY 09/15/16 Tiffany Badillo MD [address] [place] [address] Consulting Physician INTERVENTIONAL CARDIOLOGY 12/23/19 Erick Abdi MD [address] [place] [phone] Consulting Physician PAIN MANAGEMENT 09/06/20 documented as of this encounter
--- OUTSIDE RECORDS SUMMARY | 2024-01-27 07:43 | XMS_ITS | Encounter Summary ---
Author Organization [facility] Address [address] [facility] [place] [address] [place] [address] Care Team Providers Care Interior Design Principal Name Role Phone Mary Barber MD Unavailable Qasim Garrett DO Primary Care Provider [phone] Tiffany Badillo MD Unavailable [phone] Erick Abdi MD Unavailable [phone] Encounter Details Date Type Department Care Team (Late st Contact Info) Description 10/16/[address] [facility] [address] [place] [address] Mary Barber MD [address] [place] [address] Social History Tobacco Use Types Packs/Day Years [...] than three times a week 03/27/2019 Attends Jewish Services Not on file 03/27 Active Member [...] Assessment Author Status No 03/28/2019 12:00 AM TARGET DEVELOPER 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 Answer Date of Assessment Author Status No 03/28/2019 12:00 AM TARGET DEVELOPER Acti ve * Do you have serious [...] Assessment Author Status No 03/28/2019 12:00 AM TARGET DEVELOPER Jonas Garcia , RN Active documented as of this encounter Mental Status * Because of a physical, mental, or emotional condition, do you have serious difficulty concentrating, remembering, or making decisions? Answer Entry Date Author Status No 03/28/2019 12:00 AM TARGET DEVELOPER Jonas Garcia RN Active documented in this encounter Plan of Treatment Upcoming Encounters Date Type Department Care Team (Late st Contact Info) Description 02/15/2024 1:30 PM TARGET DEVELOPER Office Visit [facility] [address] [place] [address] Tyrell Leiva, PA-C [address] [place] [address] 02/15/2024 1:30 PM TARGET DEVELOPER Allied Health/Nurse Visit [facility] [address] [place] [address] Mary Barber MD [address] [place] [address] 03/15/2024 11:15 AM TARGET DEVELOPER Office Visit [facility] [place] [address] [place] [address] Jim Tamez MD [address] [place] [address] 05/16/2024 1:15 AM CDT Allied Health/Nurse Visit [facility] ld [address] [place] [address] Mary Barber MD [address] [place] [address] 09/07/2024 9:00 AM CDT Office Visit [facility] [place] [address] [place] [address] Tiffany Badillo MD [address] [place], [place] [address] documented as of this encounter Visit Diagnoses Not on filedocumented in this encounter Care Teams Interior Design Principal Relationship Specialty Start Date End Date Qasim Garrett DO [address] [place] [address] PCP - General FAMILY PRACTICE 04/13/19 Mary Barber MD [address] [place] [phone] EP Community Organizer CLINICAL CARDIAC ELECTROPHYSIOLOGY 09/15/16 Tiffany Badillo MD [address] [place] [phone] Consulting Physician INTERVENTIONAL CARDIOLOGY 12/23/19 Erick Abdi MD [address] [place] [phone] Consulting Physician PAIN MANAGEMENT 09/06/20 documented as of this encounter
--- OUTSIDE RECORDS SUMMARY | 2024-01-27 07:43 | XMS_ITS | Encounter Summary ---
Author Organization [facility] Address [address] [facility] [place] [address] [place] [address] Care Team Providers Care Tire Fabric Inspector Name Role Phone Mary Barber MD Unavailable Qasim Garrett DO Primary Care Provider [phone] Tiffany Badillo MD Unavailable [phone] Erick Abdi MD Unavailable [phone] Reason for Visit * Reason Onset Date Comments Information 10/29/2020 Encounter Details Date Type Department Care Team (Late st Contact Info) Description 10/29/2020 [facility]phone [facility] [address] [place] [address] Mary Barber MD [address] [place] [address] Information Social History Tobacco Use [...] Organization Meetings Never 03/27/2019 Marital Status 03/27/2019 [facility] - [...] Assessment Author Status No 03/28/2019 12:00 AM FRUIT OR NUT FARMER 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 Answer Date of Assessment Author Status No 03/28/2019 12:00 AM FRUIT OR NUT FARMER Acti ve * Do you have serious [...] Assessment Author Status No 03/28/2019 12:00 AM FRUIT OR NUT FARMER Jonas Garcia RN Active documented as of this encounter Mental Status * Because of a physical, mental, or emotional condition, do you have serious difficulty concentrating, remembering, or making decisions? Answer Entry Date Author Status No 03/28/2019 12:00 AM Jonas Collins RN Active documented in this encounter Progress Notes * Juany Mcdonald RN - 10/29/2020 11:03 AM CDT Pt called for Voucher for [employer], she is having ablation on 11-06 Pt aware hTuy is no longer doing vouchers for [employer], she v/u documented in this encounter Plan of Treatment Upcoming Encounters Date Type Department Care Team (Late st Contact Info) Description 02/15/2024 1:30 PM FRUIT OR NUT FARMER Office Visit [facility] ld [address] [place] [address] Tyrell Leiva, PA-C [address] [place] [address] 02/15/2024 1:30 PM FRUIT OR NUT FARMER Allied Health/Nurse Visit [facility] ld [address] [place] [address] Mary Barber MD [address] [place] [address] 03/15/2024 11:15 AM FRUIT OR NUT FARMER Office Visit [facility] [place] [address] Jim Tamez MD [address] [place] [address] 05/16/2024 1:15 AM CDT Allied Health/Nurse Visit [facility] [address] [place] [address] Mary Braber MD [address] [place] [address] 09/07/2024 9:00 AM CDT Office Visit [facility] [place] [address] Tiffany Badillo MD [address] [place], [place] [address] documented as of this encounter Visit Diagnoses Not on filedocumented in this encounter Care Teams Tire Fabric Inspector Relationship Specialty Start Date End Date Qasim Garrett DO [address] [place] [address] PCP - General FAMILY PRACTICE 04/13/19 Mary Barber MD [address] [place] [address] EP Inspector Precision CLINICAL CARDIAC ELECTROPHYSIOLOGY 09/15/16 Tiffany Badillo MD [address] [place] [address] [phone] Consulting Physician INTERVENTIONAL CARDIOLOGY 12/23/19 Erick Abdi MD [address] [place] [address] Consulting Physician PAIN MANAGEMENT 09/06/20 documented as of this encounter
--- OUTSIDE RECORDS SUMMARY | 2024-01-27 07:44 | XMS_ITS | Encounter Summary ---
Author Organization [facility] Address [address] [facility] [place] [address] [place] [address] Care Team Providers Care Gravel Inspector Name Role Phone Mary Barber MD Unavailable Qasim Garrett DO Primary Care Provider [phone] Tiffany Badillo MD Unavailable [phone] Erick Abdi MD Unavailable [phone] Encounter Details Date Type Department Care Team (Late st Contact Info) Description 09/11/2020 Orders Only [facility] [address] [place] [address] Ananya Odell, MECHANICAL PROJECT MANAGER [address] [place] [address] Social History Tobacco Use Types Packs/Day Years [...] than three times a week 03/27/2019 Attends Synagogue Services Not on file 03/27 Active Member of Clubs or Organizations Not on f ile 03/27/2019 Attends Club or Organization Meetings Never 03/27/2019 Marital Status 03/27/2019 [facility] - Occupational [...] have Coronavirus / COVID-19? No / Unsure 09/03/2020 1:19 PM CDT documented as of this encounter Functional Status * RETIRED Are you deaf or do you have serious difficulty hearing Answer Date of Assessment Author Status No 03/28/2019 12:00 AM WARP TESTER 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 Answer Date of Assessment Author Status No 03/28/2019 12:00 AM WARP TESTER Acti ve * Do you have serious [...] Assessment Author Status No 03/28/2019 12:00 AM WARP TESTER Jonas Garcia , RN Active documented as of this encounter Mental Status * Because of a physical, mental, or emotional condition, do you have serious difficulty concentrating, remembering, or making decisions? Answer Entry Date Author Status No 03/28/2019 12:00 AM WARP TESTER Jonas Garcia RN Active documented in this encounter Plan of Treatment Upcoming Encounters Date Type Department Care Team (Late st Contact Info) Description 02/15/2024 1:30 PM WARP TESTER Office Visit [facility] ld [address] [place] [address] Tyrell Leiva, PA-C [address] [place] [address] 02/15/2024 1:30 PM WARP TESTER Allied Health/Nurse Visit [facility] ld [address] [place] [address] Mary Barber MD [address] [place] [address] 03/15/2024 11:15 AM WARP TESTER [facility] Visit [facility] [place] [address] [place] [address] Jim Tamez MD [address] [place] [address] 05/16/2024 1:15 AM CDT Allied Health/Nurse Visit [facility] ld [address] [place] [address] Mary Barber MD [address] [place] [address] 09/07/2024 9:00 AM CDT Office Visit [facility] [place] [address] [address] Tiffany Badillo MD [address] [place], [place] [address] documented as of this encounter Visit Diagnoses Not on filedocumented in this encounter Care Teams Gravel Inspector Relationship Specialty Start Date End Date Qasim Garrett DO [address] [place] [address] PCP - General FAMILY PRACTICE 04/13/19 Mary Barber MD [address] [place] [phone] EP Hydrological Technical Officer CLINICAL CARDIAC ELECTROPHYSIOLOGY 09/15/16 Tiffany Badillo MD [address] [place] [address] [phone] Consulting Physician INTERVENTIONAL CARDIOLOGY 12/23/19 Erick Abdi MD [address] [place] [address] Consulting Physician PAIN MANAGEMENT 09/06/20 documented as of this encounter
--- OUTSIDE RECORDS SUMMARY | 2024-01-27 07:44 | XMS_ITS | Encounter Summary ---
Author Organization [facility] Address [address] [place] [place] [address] [place] [address] Care Team Providers Care Insulation Nozzleman Name Role Phone Mary Barber MD Unavailable Qasim Garrett DO Primary Care Provider [phone] Tiffany Badillo MD Unavailable [phone] Erick Abdi MD Unavailable [phone] Reason for Referral * Procedure (Routine) - Closed Specialty Diagnoses / Procedures Referred By Contac t Referred To Contact [facility] Cardiology Diagnoses Paroxysmal atrial fibrillation ([facility]) Procedures Cardioversion external Mary Barber MD [address] [place] [address] Phone: tel: fax: [facility] [address] [place] [address] Phone: tel: Referral ID Status Reason Start Date Expiration Date Visits Re quested Visits Authorized [id number] Closed 09/12/2020 10/13/2021 1 1 Reason for Visit * Reason Onset Date Comments Question 09/11/2020 Wanting to know next step for AFib Schedule Procedure 09/12/2020 Encounter Details Date Type Department Care Team (Late st Contact Info) Description 09/11/2020 Telephone [facility] [address] [place] [address] Mary Barber MD [address] [place] [address] Question (Wanting to know next step for AFib); Schedule Procedure Social History Tobacco Use Types [...] Status 03/27/2019 [facility] of Occupat ional Health - Occupational Stress [...] Assessment Author Status No 03/28/2019 12:00 AM COMPENSATION AND BENEFITS ANALYST 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 Answer Date of Assessment Author Status No 03/28/2019 12:00 AM COMPENSATION AND BENEFITS ANALYST Acti ve * Do you have serious [...] documented in this encounter Progress Notes * Mercedes Bansal RN - 09/12/2020 8:59 AM CDT Called pt's daughter Erika to schedule DCCV as follows: 10/04 arrive 10:30 for 12:00 procedure Instructions reviewed, letter mailed, patient voiced understanding and had no questions. * Ananya Odell NP - 09/11/2020 4:15 PM CDT Spoke with Erika. Dr. Barber recommends DCCV in 4-5 weeks. Start amio 1 week prior. She v/u and had no further questions. * Kelsey Evans - 09/11/2020 10:51 AM CDT Pt daughter, RENZO James, called to follow up on Pt next step, as she saw NONI Hare, last week for Dr. Barber and was to discuss w/him upon his return this week. Erika calling to follow up, please call her back at [phone]. documented in this encounter Plan of Treatment Upcoming Encounters Date Type Department Care Team (Late st Contact Info) Description 02/15/2024 1:30 PM COMPENSATION AND BENEFITS ANALYST Office Visit [facility] [address] [place] [address] Tyrell Leiva PA-C [address] [place] [address] 02/15/2024 1:30 PM COMPENSATION AND BENEFITS ANALYST Allied Health/Nurse Visit [facility] [address] [place] [address] Mary Barber MD [address] [place] [address] 03/15/2024 11:15 AM COMPENSATION AND BENEFITS ANALYST Office Visit [facility] [place] [address] Jim Tamez MD [address] [place] [address] 05/16/2024 1:15 AM CDT Allied Health/Nurse Visit [facility] [address] [place] [address] Mary Barber MD [address] [place] [address] 09/07/2024 9:00 AM CDT Office Visit [facility] [place] [address] Tiffany Badillo MD [address] [place] [address] documented as of this encounter Visit Diagnoses Diagnosis Paroxysmal atrial fibrillation (CMS/HCC HHS/HCC)- Primary Atrial fibrillation documented in this encounter Care Teams Insulation Nozzleman Relationship Specialty Start Date End Date Qasim Garrett DO [address] [place] [address] PCP - General FAMILY PRACTICE 04/13/19 Mary Barber MD [address] [place] [phone] EP Ops Manager CLINICAL CARDIAC ELECTROPHYSIOLOGY 09/15/16 Tiffany Badillo MD [address] [place] [phone] Consulting Physician INTERVENTIONAL CARDIOLOGY 12/23/19 Erick Abdi MD [address] [place] [address] [phone] Consulting Physician PAIN MANAGEMENT 09/06/20 documented as of this encounter
--- OUTSIDE RECORDS SUMMARY | 2024-01-27 07:44 | XMS_ITS | Encounter Summary ---
Author Organization [facility] Address [address] [facility] [place] [address] [place] [address] Care Team Providers Care Supervisor Brine Name Role Phone Mary Barber MD Unavailable Qasim Garrett DO Primary Care Provider [phone] Tiffany Badillo MD Unavailable [phone] Erick Abdi MD Unavailable [phone] Reason for Visit * Reason Onset Date Comments Surgical Clearance 09/06/2020 Encounter Details Date Type Department Care Team (Late st Contact Info) Description 09/06/2020 Telephone [facility] ld [address] [place] [address] Tiffany Badillo MD [address] [place] [address] Surgical Clearance Social History Tobacco [...] than three times a week 03/27/2019 Attends [employer]ish Services Not on file 03/27 Active Member of Clubs or Organizations Not on f ile 03/27/2019 Attends Club or Organization Meetings Never 03/27/2019 Marital Status 03/27/2019 [facility]at ional Health - [...] Assessment Author Status No 03/28/2019 12:00 AM ELEMENT BURNER 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 Answer Date of Assessment Author Status No 03/28/2019 12:00 AM ELEMENT BURNER Acti ve * Do you have serious [...] in this encounter Progress Notes * Cony Wolf - 09/13/2020 2:17 PM CDT Letter faxed to . * Cony Wolf - 09/07/2020 11:08 AM CDT Please advise. * Cony Wolf - 09/06/2020 2:14 PM CDT called for preop risk assessment for Sera to have lumbar medial branch block and RF ablation on her AC. She is aware I will discuss with and call her back. documented in this encounter Plan of Treatment Upcoming Encounters Date Type Department Care Team (Late st Contact Info) Description 02/15/2024 1:30 PM ELEMENT BURNER [facility] [address] [place] [address] Tyrell Leiva PAHaylieC [address] [place] [address] 02/15/2024 1:30 PM ELEMENT BURNER Allied Health/Nurse Visit [facility] [address] [place] [address] Mary Barber MD [address] [place] [address] 03/15/2024 11:15 AM ELEMENT BURNER Office Visit [facility] [address] [place] [address] Jim Tamez MD [address] [place], [place] [address] 05/16/2024 1:15 AM CDT Allied Health/Nurse Visit [facility] [address] [place] [address] Mary Barber MD [address] [place] [address] 09/07/2024 9:00 AM CDT Office Visit [address] [place] [address] Tiffany Badillo MD [address] [place], [place] [address] documented as of this encounter Visit Diagnoses Not on filedocumented in this encounter Care Teams Supervisor Brine Relationship Specialty Start Date End Date Qasim Garrett DO [address] [place] [address] PCP - General FAMILY PRACTICE 04/13/19 Mary Barber MD [address] [place] [address] EP Folded Towel Machine Operator CLINICAL CARDIAC ELECTROPHYSIOLOGY 09/15/16 Tiffany Badillo MD [address] [place], [place] [address] Consulting Physician INTERVENTIONAL CARDIOLOGY 12/23/19 Erick Abdi MD [address] [place] [address] Consulting Physician PAIN MANAGEMENT 09/06/20 documented as of this encounter
--- OUTSIDE RECORDS SUMMARY | 2024-01-27 07:44 | XMS_ITS | Encounter Summary ---
Author Organization [facility] Address [address] [facility] [place] [address] [place] [address] Care Team Providers Care Plate Developer Name Role Phone Mary Barber MD Unavailable Qasim Garrett DO Primary Care Provider [phone] Tiffany Badillo MD Unavailable [phone] Erick Abdi MD Unavailable [phone] Reason for Visit * Reason Onset Date Comments Medication Question 09/17/2020 Encounter Details Date Type Department Care Team (Late st Contact Info) Description 09/17/2020 [facility] [address] [place] [address] Mary Barber MD [address] [place] [address] Medication Question Social History Tobacco Use Types Packs/Day [...] than three times a week 03/27/2019 Attends Christianity Services Not on file 03/27 Active Member of Clubs or Organizations Not on f ile 03/27/2019 Attends Club or Organization Meetings Never 03/27/2019 Marital Status 03/27/2019 [facility] ional Health - Occupational Stress [...] Coronavirus/COVID-19? No / Unsure 03/20/2021 11:22 AM AUTO TECH documented as of this encounter Functional Status * Question Answer Date of Assessment Author Status Do you have serious difficulty walking or climbing stairs? No 11/06/2020 3:38 PM SAMIRAT Ericka Pop RN Activ e * Question Answer Date of Assessment Author Status Do you have difficulty dressing or bathing? No 11/06/2020 3:38 PM Ericka Hayes RN A ctive Because of a physical, mental, or emotional condition, do you have difficulty doing errands alone such as visiting a doctor's office or shopping? No 11/06/2020 3:38 PM SAMIRAT Ericka Pop RN Active * RETIRED Are you deaf or do you have serious difficulty hearing Answer Date of Assessment Author Status No 03/28/2019 12:00 AM AUTO TECH 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 Answer Date of Assessment Author Status No 03/28/2019 12:00 AM AUTO TECH Acti ve * Do you have serious [...] or making decisions? No 11/06/2020 3:38 PM CDT Ericka Pop RN A ctive * Because of a physical, mental, or emotional condition, do you have serious difficulty concentrating, remembering, or making decisions? Answer Entry Date Author Status No 03/28/2019 12:00 AM Jonas Collins RN Active documented in this encounter Progress Notes * Adenike Mcgrath RN - 09/17/2020 11:16 AM CDT Called Sera and instructed her to skip her Entresto the morning of procedure. Sera v/u and had no further questions. * Ananya Guzman - 09/17/2020 9:38 AM CDT Patient called to ask whether she should take her Entestro prior to her procedure - patient has several appointments today and will be in and out - can leave her a message should she take or not take the medication documented in this encounter Plan of Treatment Upcoming Encounters Date Type Department Care Team (Late st Contact Info) Description 02/15/2024 1:30 PM AUTO TECH Office Visit [facility] ld [address] [place] [address] Tyrell Leiva, PAHaylieC [address] [place] [address] 02/15/2024 1:30 PM AUTO TECH Allied Health/Nurse Visit [facility] ld [address] [place] [address] Mary Barber MD [address] [place] [address] 03/15/2024 11:15 AM AUTO TECH [facility] Visit [facility] [place] [address] [place] [address] Jim Tamez MD [address] [place], [place] [address] 05/16/2024 1:15 AM CDT Allied Health/Nurse Visit [facility] ld [address] [place] [address] [phone] Mary Barber MD [address] [place] [address] 09/07/2024 9:00 AM CDT Office Visit [facility] [place] [address] [place] [address] Tiffany Badillo MD [address] [place], [place] [address] documented as of this encounter Visit Diagnoses Not on filedocumented in this encounter Care Teams Plate Developer Relationship Specialty Start Date End Date Qasim Garrett DO [address] [place] [address] PCP - General FAMILY PRACTICE 04/13/19 Mary Barber MD [address] [place] [phone] EP It Web Development Consultant CLINICAL CARDIAC ELECTROPHYSIOLOGY 09/15/16 Tiffany Badillo MD [address] [place] [address] [phone] Consulting Physician INTERVENTIONAL CARDIOLOGY 12/23/19 Erick Abdi MD [address] [place] [address] [phone] Consulting Physician PAIN MANAGEMENT 09/06/20 documented as of this encounter
--- OUTSIDE RECORDS SUMMARY | 2024-01-27 07:45 | XMS_ITS | Encounter Summary ---
Author Organization [facility] Address [facility] [place] [address] [place] [address] Care Team Providers Care Proc Tech Name Role Phone Mary Barber MD Unavailable Hi Rolon DO Primary Care Provider [phone] Tiffany Badillo MD Unavailable [phone] Erick Abdi MD Unavailable [phone] Reason for Visit * Reason Comments Follow Up Encounter Details Date Type Department Care Team (Late st Contact Info) Description 09/03/2020 1:30 PM CDT Office Visit [facility] eld [address] [place] [phone] Stone Odell, TUBER MACHINE OPERATOR [address] [place] [address] Follow Up Social History Tobacco Use Types [...] Organization Meetings Never 03/27/2019 Marital Status 03/27/2019 [facility] [place] of Occupat ional Health - Occupational Stress [...] Sign Reading Time Taken Comments Blood Pressure 104/72 09/03/2020 1:36 PM CDT Pulse 75 09/03/2020 1:36 PM CDT EKG Temperature - - Respiratory Rate 14 09/03/2020 1:36 PM CDT Oxygen Saturation - - Inhaled Oxygen Concentration - - Weight 83.3 kg (183 lb 9.6 oz) 09/03/2020 1:36 P M CDT Height 160 cm (5' 3 ) 09/03/2020 1:36 PM CDT Body Mass Index 32.52 09/03/2020 1:36 PM CDT documented in this encounter Functional Status * RETIRED Are you deaf or do you have serious difficulty hearing Answer Date of Assessment Author Status No 03/28/2019 12:00 AM ASSEMBLY ROOM SUPERVISOR 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 Answer Date of Assessment Author Status No 03/28/2019 12:00 AM ASSEMBLY ROOM SUPERVISOR Acti ve * Do you have serious [...] documented in this encounter Progress Notes * Stone Odell NP - 09/03/2020 1:30 PM CDT Images from the original note were not included. Cardiac Electrophysiology Clinic Note PATIENT NAME: Rakan Shaw : 1935 REFERRING PROVIDER: Hi Rolon DO PCP: HI ROLON DO Reason for Visit Atrial fibrillation, PVCs, and pacemaker History of Present Illness Ms. Shaw is a very pleasant,??85-year-old female with a history of paroxysmal atrial fibrillation with rapid ventricular response, refractory??to??medical therapy.??She??underwent ablation of the AV node and implantation of a dual- chamber [employer] pacemaker in April 2006. She used to beon Coumadin for stroke prevention; however, this was stopped in 2007 due to a subdural hematoma requiring evacuation. The patient developed severe nonischemic cardiomyopathy, likely induced by right ventricular pacing, prompting upgrade of the pacemaker to a biventricular [employer] ICD in March 2013. ?? Due to intolerance to Coumadin therapy secondary to intracranial bleeding, the patient underwent percutaneous ligation of the left atrial appendage using a Lariat device on 10/19/2013.??She??tolerated the procedure well without complications. In January 2019, she fell and injured her ankle requiring surgery. Several days after surgery, shedeveloped DVT and saddle pulmonary embolism. She was started on Eliquis. Dose of Eliquis was later reduced to 2.5 mg PO BID. Ms. Shaw is seen in clinic for follow-up today and reports she has been feeling fair. She remains active around her home and denies anginal chest pain. She reports dyspnea with moderate exertion as well as easy fatigability. Her activity is limited by her back pain. She denies palpitations, dizziness, syncope, orthopnea, and leg edema. She continues on low-dose Eliquis without bleeding issues. ECG EKG today showed atrial fibrillation with v-pacing. ?? Device Interrogation ?? We interrogated the device today and that showed a [employer] biventricular ICD with good battery voltage and satisfactory pacing and sensing thresholds. ?? Underlying rhythm was atrial fibrillation with complete AV block. There is a 51% burden of atrial fibrillation (appears to be 100% since April 09, 2020). No sustained ventricular arrhythmias have been observed. Diagnosis 1. Paroxysmal, and now persistent, atrial fibrillation with rapid ventricular response, refractory to medical therapy. Status post ablation of the AV node and implantation of a dual-chamber [employer] pacemaker in April 2006. Atrial fibrillation has been persistent since April 2020. 2. Status post upgrade of pacemaker to a [employer] biventricular ICD in March 2013. Device is of normal function in clinic today. 3. Intolerance to Coumadin due to subdural hematoma, requiring evacuation in June 2007. 4. Status post percutaneous ligation of left atrial appendage using LARIAT device on 10/19/2013. 5. Severe nonischemic cardiomyopathy with ejection fraction of 34%??in the past, likely induced by right ventricular pacing. Ejection fraction was 45% on most recent echocardiogram. 6. Premature ventricular contractions. Holter monitor in the past revealed rare PVCs. Device interrogation today suggest 8% burden of PVCs. 7. 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 8. Chronic anticoagulation with Eliquis for DVT/PE. 9. Hypertension. 10??Hypothyroidism. 11. No known history of coronary artery disease, diabetes, or stroke. Recommendations 1. I will increase Eliquis to 5 mg PO BID in preparation for catheter ablation vs electrical cardioversion of atrial fibrillation. She will need to be on full- dose Eliquis for at least 1 month prior to latter day of sinus rhythm despite history of Lariat. 2. Will discuss electrical cardioversion and antiarrhythmic medications vs catheter ablation with Dr. Barber upon his return next week. ADDENDUM: Dr. Barber recommends electrical cardioversion in 4-5 weeks, and starting amiodarone 200 mg PO daily 1 week prior. Medications Current Outpatient Medications: ??? apixaban 5 MG tablet, Take 1 tablet (5 mg total) by mouth 2 (two) times daily., Disp: 60 tablet, Rfl: 3 ??? [START ON 10/01/2020] amiodarone 200 MG tablet, Take 1 tablet (200 mg total) by mouth daily., Disp: 90 tablet, Rfl: 3 ??? aspirin 81 MG [...] mouth daily., Disp: , Rfl: ??? rosuvastatin 40 MG tablet, Take 1 tablet (40 mg total) by mouth nightly at bedtime., Disp: 90 tablet, Rfl: 3 ??? sacubitril-valsartan [...] quittin.6 ??? Smokeless tobacco: Never Used Substance Use Topics ??? Alcohol use: No ??? Drug use: No Family History Problem Relation Name Age of Onset ??? [place] Mother ??? [place] Father ??? CABG Brother ??? Stent Brother ??? Stroke Paternal Grandfather ??? Heart Disease Other premature coronary heart disease Review of Systems Review of Systems Constitutional: Positive for malaise/fatigue. Negative for chills and fever. HENT: Negative for nosebleeds. Eyes: Negative for blurred vision and double vision. Respiratory: Positive for shortness of breath. Negative for cough. Cardiovascular: Negative for chest pain, palpitations, orthopnea and leg swelling. Gastrointestinal: Negative for blood in stool, melena, nausea and vomiting. Genitourinary: Negative for hematuria. Musculoskeletal: Negative for falls. Skin: Negative for rash. Neurological: Negative for dizziness, focal weakness, loss of consciousness and weakness. Endo/Heme/Allergies: Does not bruise/bleed easily. Psychiatric/Behavioral: Negative for depression. Physical Examination Vitals: 09/03/20 1336 BP: 104/72 Pulse: 75 Resp: 14 Physical Exam Constitutional: She is oriented to person, place, and time. She appears well- developed and well-nourished. No distress. HENT: Nose: No mucosal edema. Mouth/Throat: Mucous membranes are normal. Cardiovascular: Normal rate, S1 normal and S2 normal. An irregular rhythm present. PMI is not displaced. Exam reveals no gallop and no friction rub. Pulses: Radial pulses are 2+ on the right side and 2+ on the left side. Pulmonary/Chest: Effort normal and breath sounds normal. No respiratory distress. She has no wheezes. She has no rales. Abdominal: Normal appearance. She exhibits no abdominal bruit. There is no hepatosplenomegaly. Musculoskeletal: General: No deformity or edema. Normal range of motion. Neurological: She is alert and oriented to person, place, and time. Skin: Skin is warm and dry. No erythema. Psychiatric: She has a normal mood and affect. Her behavior is normal. Thought content normal. Signed STONE ODELL NP 09/13/2020 documented in this encounter Plan of Treatment Upcoming Encounters Date Type Department Care Team (Late st Contact Info) Description 02/15/2024 1:30 PM ASSEMBLY ROOM SUPERVISOR [facility] [address] [place] [address] Tyrell Leiva PA-C [address] [place] [address] 02/15/2024 1:30 PM ASSEMBLY ROOM SUPERVISOR [facility] [address] [place] [address] Mary Barber MD [address] [place] [address] 03/15/2024 11:15 AM ASSEMBLY ROOM SUPERVISOR [facility] [place] [address] Jim Tamez MD [address] [place] [address] 05/16/2024 1:15 AM CDT [facility] [address] [place] [address] Mary Barber MD [address] [place] [address] 09/07/2024 9:00 AM CDT Office Visit [facility] [place] [address] Tiffany Badillo MD [address] [place] [address] documented as of this encounter Procedures Procedure Name Priority Date/Time Associated Diagnosis Comments ELECTROCARDIOGRAM (NON MIDMARK ACQUIRED) Routine 09/03/2020 1:32 PM CDT Paroxysmal atrial fibrillation ([facility]/HCC [facility]) Biventricular ICD (implantable cardioverter-defibr illator) in place documented in this encounter Results * ELECTROCARDIOGRAM (09/03/2020 1:32 PM CDT) 09/03/2020 1:32 PM CDT Narrative [facility] - 09/12/2020 9:59 PM CDT ? [facility] ?[address] [place], [place] ??[address] ? Test Date: ?2020-09-03 Pat Name: ? RAKAN SAHW ?Department: ? Room: ? Gender: ? Female ? Corn Sheller: ?? : ?1935 ? Requested By: STONE ODELL Order Number: [id number] ?Reading : ?? Pema Granger ? Measurements Intervals ?[place] ? Rate: ? 75 ? P: ? NH: ? 0 ?QRS: ?109 QRSD: ? 123 ?T: ?7 QT: ? 428 ? QTc: ?481 ? Interpretive Statements ELECTRONIC VENTRICULAR PACEMAKER ABNORMAL RHYTHM ECG Procedure Note Pema Granger MD - 09/12/2020 [facility] [address] [place] [address] Test Date: 2020-09-03 Pat Name: RAKAN SHAW Department: Room: Gender: Female Corn Sheller: : 1935 Requested By: STONE ODELL Order Number: [id number] Reading MD: Catarino Measurements Intervals [place] Rate: 75 P: NH: 0 QRS: 109 QRSD: 123 T: 7 QT: 428 QTc: 481 Interpretive Statements ELECTRONIC VENTRICULAR PACEMAKER ABNORMAL RHYTHM ECG us Stone Odell TUBER MACHINE OPERATOR PROCEDURES-ORDERABLE NO CHARGE Final Result [facility] documented in this encounter Visit Diagnoses Diagnosis Paroxysmal atrial fibrillation ([facility])- Primary Atrial fibrillation Biventricular ICD (implantable cardioverter-defibrillator) in place documented in this encounter Care Teams Proc Tech Relationship Specialty Start Date End Date Hi Rolon DO [address] [place] [address] PCP - General FAMILY PRACTICE 04/13/19 Mary Barber MD [address] [place] [phone] EP Gas Appliance Installer CLINICAL CARDIAC ELECTROPHYSIOLOGY 09/15/16 Tiffany Badillo MD [address] [place] [address] Consulting Physician INTERVENTIONAL CARDIOLOGY 12/23/19 Erick Abdi MD [address] [place] [id number] Consulting Physician PAIN MANAGEMENT 09/06/20 documented as of this encounter
--- OUTSIDE RECORDS SUMMARY | 2024-01-27 07:45 | XMS_ITS | Encounter Summary ---
Author Organization [facility] Address [address] [facility] [place] [address] [place] [address] Care Team Providers Care Circulating Process Inspector Name Role Phone Mary Barber MD Unavailable Qasim Garrett DO Primary Care Provider [phone] Tiffany Badillo MD Unavailable [phone] Encounter Details Date Type Department Care Team (Latest Contact Info) Description 09/03/2020 Travel Social History Tobacco Use Types Packs/Day [...] than three times a week 03/27/2019 Attends Buddhism Services Not on file 03/27 Active Member of Clubs or Organizations Not on f ile 03/27/2019 Attends Club or Organization Meetings Never 03/27/2019 Marital Status 03/27/2019 [facility] of Occupat ional Health - Occupational Stress [...] Assessment Author Status No 03/28/2019 12:00 AM BEAM RACKER 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 Answer Date of Assessment Author Status No 03/28/2019 12:00 AM BEAM RACKER Acti ve * Do you have serious [...] st Contact Info) Description 02/15/2024 1:30 PM BEAM RACKER [facility] [address] [place] [phone] Tyrell Leiva, PAHaylieC [address] [place] [address] 02/15/2024 1:30 PM BEAM RACKER Allied Health/Nurse Visit [facility] ld [address] [place] [address] Mary Barber MD [address] [place] [address] 03/15/2024 11:15 AM BEAM RACKER Office Visit [facility] [place] [address] [address] Jim Tamez MD [address] [place] [place], [place] [address] [phone] 05/16/2024 1:15 AM CDT Allied Health/Nurse Visit [facility] ld [address] [place] [address] Mary Barber MD [address] [place] [address] 09/07/2024 9:00 AM CDT Office Visit [facility] [place] [address] [place] [address] Tiffany Badillo MD [address] [place] [address] documented as of this encounter Visit Diagnoses Not on filedocumented in this encounter Care Teams Circulating Process Inspector Relationship Specialty Start Date End Date Qasim Garrett DO [address] [place] [address] PCP - General FAMILY PRACTICE 04/13/19 Mary Barber MD [address] [place] [address] EP Race Board Attendant CLINICAL CARDIAC ELECTROPHYSIOLOGY 09/15/16 Tiffany Badillo MD [address] [place] [address] Consulting Physician INTERVENTIONAL CARDIOLOGY 12/23/19 documented as of this encounter
--- OUTSIDE RECORDS SUMMARY | 2024-01-27 07:45 | XMS_ITS | Encounter Summary ---
Author Organization [facility] Address [address] [facility]. [place], [place] [address] [place] [address] Care Team Providers Care Associate Partner Name Role Phone Mary Barber MD Unavailable Qasim Rolon DO Primary Care Provider [phone] Tiffany Badillo MD Unavailable [phone] Reason for Visit * Reason Comments Follow Up Encounter Details Date Type Department Care Team (Late st Contact Info) Description 09/03/2020 2:30 PM CDT [facility] [address] [place] [address] Tiffany Badillo MD [address] [place] [address] Follow Up Social History Tobacco [...] than three times a week 03/27/2019 Attends Zoroastrianism Services Not on file 03/27 Active Member of Clubs or Organizations Not on f ile 03/27/2019 Attends Club or Organization Meetings Never 03/27/2019 Marital Status 03/27/2019 [facility] of Occupat ional Health - Occupational Stress [...] Time Taken Comments Blood Pressure 104/72 09/03/2020 2:51 PM CDT Pulse 75 09/03/2020 2:51 PM CDT Temperature - - Respiratory Rate - - Oxygen Saturation 98% 09/03/2020 2:51 PM CDT Inhaled Oxygen Concentration - - Weight 83 kg (183 lb) 09/03/2020 2:51 PM CDT Height 160 cm (5' 3 ) 09/03/2020 2:51 PM CDT Body Mass Index 32.42 09/03/2020 2:51 PM CDT documented in this encounter Functional Status * RETIRED Are you deaf or do you have serious difficulty hearing Answer Date of Assessment Author Status No 03/28/2019 12:00 AM PREPPER 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 Answer Date of Assessment Author Status No 03/28/2019 12:00 AM MIGUE Acti ve * Do you have serious [...] Progress Notes * Tiffany Badillo MD - 09/03/2020 2:30 PM CDT Chief Complaint: Follow Up HISTORY: Sera Shaffer is a 85-year-old female with past medical history of hypertension, hypercholesterolemia, atrial fibrillation post ablation and??Lariat??procedure, hemorrhagic stroke and hypothyroidism here for follow- up. Since the last time she was seen, she underwent a venous duplex ultrasound of her lower extremities that showed no evidence of residual thrombus, a decision was made to reduce her dose of Eliquis to 2.5 mg twice a day based on her known history of cerebral bleed and the fact that she had a LARIAT procedure done to avoid anticoagulation. After her last visit, she was started on Aldactone, Entresto and furosemide, she feels her shortness of breath had improved. A recent EP visit showed that she was 100% in atrial fibrillation since April 2020, her dose of Eliquis was increased again to 5 mg. Her shortness of breath is still present but is slightly improved, most of her complaints are related to her chronic back pain and numbness of her lower extremities most likelyrelated to her spinal stenosis. Patient stated the physician taking care of her spinal stenosis would not like to perform any injections in her back based on the fact that she is anticoagulated.. There is no history of exertional chest pain, paroxysmal nocturnal dyspnea or orthopnea; patient still sleeps with 2 pillows primarily to relieve the pain in her back. Results of available cardiovasculartests were reviewed. No problems with her medications, no refills are required. RECOMMENDATIONS AND PLAN: Continue current medications. Follow-up with Dr. Barber as a scheduled. We will let the EP service handle anticoagulation for now to avoid conflicts in dosing anticoagulation. From the cardiology point of view patient can undergo epidural injections if required. Anticoagulation could be stopped 3 days before the procedure and resume the day after. Follow up in 6 months or sooner if any problems arise. PAST [...] GI Upset ??? Vicodin [Hydrocodone-Acetaminophen] GI Upset I MEDICATIONS: Prior to Admission medications Medication Sig Start Date End Date Taking? Authorizing Provider apixaban 5 MG tablet Take 1 tablet (5 mg total) by mouth 2 (two) times daily. 09/03/20 Yes Ananya Odell NP aspirin 81 MG tablet Take by mouth daily. 04/29/06 Yes Doc Abstract FUROSEMIDE 20 MG tablet TAKE 1 TABLET BY MOUTH EVERY DAY 08/14/20 Yes Tiffany Badillo MD levothyroxine 100 MCG tablet Take 100 mcg by mouth daily. 9/28/20 Yes Doc Abstract metoprolol succinate ER 50 MG 24 hr tablet Take 1 tablet (50 mg total) by mouth daily. 02/23/20 Yes Tiffany Badillo MD Multiple Vitamins-Minerals (CENTRUM ADULTS OR) Take 1 tablet by mouth daily. Yes Doc Abstract pantoprazole EC 40 MG tablet Take 1 tablet by mouth daily. 12/13/19 Yes Doc Abstract rosuvastatin 40 MG tablet Take 1 tablet (40 mg total) by mouth nightly at bedtime. 09/23/19 Yes Tiffany Badillo MD sacubitril-valsartan (ENTRESTO) 24-26 MG tablet Take 1 tablet by mouth 2 (two) times daily. 05/22/20Yes Tiffany Badillo MD SPIRONOLACTONE 25 MG tablet TAKE 1/2 TABLET BY MOUTH EVERY DAY 08/06/20 Yes Tiffany Badillo MD SOCIAL HISTORY: Social History Tobacco Use ??? Smoking status: Former Smoker Types: Cigarettes Quit date: 1972 Years since quittin.6 ??? Smokeless tobacco: Never Used Substance Use Topics ??? Alcohol use: No ??? Drug use: No FAMILY HISTORY: Family History Problem Relation Name Age of Onset ??? ID Mother ??? ID Father ??? CABG Brother ??? Stent Brother [...] Positive for shortness of breath. Negative for cough and snoring. Cardiovascular: See HPI. Gastrointestinal: Negative for blood in stool and melena. Genitourinary: Negative for dysuria. Musculoskeletal: Positive for joint stiffness/pain. Negative for myalgias. Skin: Negative for rash. Neurological: Positive for tingling/numbness. Negative for focal weakness. Endo/Heme/Allergies: Negative for new or significant bruising/bleeding and polydipsia. Psychiatric/Behavioral: Negative for depression and new or significant memory loss. PHYSICAL EXAM: Filed Vitals: 09/03/20 1451 BP: 104/72 Pulse: 75 SpO2: 98% Weight: 83 kg (183 lb) Height: 5' 3 (1.6 m) Body mass index is 32.42 kg/m??. Physical Exam Constitutional: No distress. HENT: [...] Lab Results Component Value Date NA 145 05/28/2020 K 3.9 05/28/2020 CL 106 05/28/2020 CO2 31.7 05/28/2020 AGAP 7.3 05/28/2020 BUN 27 (H) 05/28/2020 CR 0.98 05/28/2020 GFRNON 53 (L) 05/28/2020 GFR 61 (L) 05/28/2020 GLU 100 (H) 05/28/2020 CA 8.7 05/28/2020 Lab Results Component Value Date WBC 5.7 04/02/2019 HGB 10.3 (L) 04/02/2019 PLT 222 04/02/2019 Lab Results Component Value Date CHOL 120 02/07/2014 TRI 54 02/07/2014 HDL 51 02/07/2014 LDL 58 02/07/2014 TP 7.5 05/28/2020 ALB 3.1 (L) 05/28/2020 ALT 17 05/28/2020 TSH 1.66 10/13/2014 Duplex venous ultrasound March [...] valve. Trace pulmonic regurgitation. Mild tricuspid regurgitation. DIAGNOSIS: 1. Personal history of thromboembolic disease 2. Essential hypertension 3. Hypercholesterolemia 4. Paroxysmal atrial fibrillation (CMS/HCC) 5. Biventricular ICD (implantable cardioverter-defibrillator) in place 6. History of hemorrhagic stroke with residual hemiparesis (CMS/HCC) Tiffany Badillo MD, [facility] 13:59 PM Referring Provider: Qasim Rolon DO PCP: QASIM ROLON DO documented in this encounter Plan of Treatment Upcoming Encounters Date Type Department Care Team (Late st Contact Info) Description 02/15/2024 1:30 PM PREPPER Office Visit [facility] ld [address] [place] [address] Tyrell Leiva PA-C [address] [place] [address] 02/15/2024 1:30 PM PREPPER Allied Health/Nurse Visit [facility] ld [address] [place] [address] Mary Barber MD [address] [place] [address] 03/15/2024 11:15 AM PREPPER Office Visit [facility] [place] [address] [place] [address] Jim Tamez MD [address] [place], [place] [address] 05/16/2024 1:15 AM CDT Allied Health/Nurse Visit [facility] ld [address] [place] [address] Mary Barber MD [address] [place] [address] 09/07/2024 9:00 AM CDT Office Visit [facility] [place] [address] [place] [address] Tiffany Badillo MD [address] [place] [address] documented as of this encounter Visit Diagnoses Diagnosis Personal history of thromboembolic disease- Primary Personal history of venous thrombosis and embolism Essential hypertension Unspecified essential hypertension Hypercholesterolemia Pure hypercholesterolemia Paroxysmal atrial fibrillation (CMS/HCC HHS/HCC) Atrial fibrillation 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 (CMS/HCC HHS/HCC) Transient ischemic attack (TIA), and cerebral infarction without residual deficits documented in this encounter Care Teams Associate Partner Relationship Specialty Start Date End Date Qasim Rolon DO [address] [place] [address] PCP - General FAMILY PRACTICE 04/13/19 Mary Barber MD [address] [place] [address] EP Adult Basic Education Instructor CLINICAL CARDIAC ELECTROPHYSIOLOGY 09/15/16 Tiffany Badillo MD [address] [place], [place] [address] Consulting Physician INTERVENTIONAL CARDIOLOGY 12/23/19 documented as of this encounter
--- OUTSIDE RECORDS SUMMARY | 2024-01-27 07:45 | XMS_ITS | Encounter Summary ---
Author Organization [facility] Address [address] [place] [address] [place] [address] Care Team Providers Care Manager Urgent Care Name Role Phone Mary Barber MD Unavailable Qasim Garrett DO Primary Care Provider [phone] Tiffany Badillo MD Unavailable [phone] Erick Abdi MD Unavailable [phone] Reason for Visit * Reason Onset Date Comments Results 09/04/2020 Encounter Details Date Type Department Care Team (Late st Contact Info) Description 09/04/2020 Telephone [facility] [address] [place] [address] Tiffany Badillo MD [address] [place] [address] Results Social History Tobacco Use [...] Organization Meetings Never 03/27/2019 Marital Status 03/27/2019 [facility] Occupat ional [facility] - Occupational [...] Assessment Author Status No 03/28/2019 12:00 AM CORRECTIONAL TREATMENT SPECIALIST 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 Answer Date of Assessment Author Status No 03/28/2019 12:00 AM CORRECTIONAL TREATMENT SPECIALIST Acti ve * Do you have serious [...] Cony Wolf - 09/13/2020 2:17 PM CDT She is aware we will wait for 's input before making any medication changes. * Cony Wolf - 09/04/2020 3:02 PM CDT Sera called back to ask if echo will be repeated in 90 days or not. She also wants to know if medications will be changed since EF is the same. Please advise. * Cony Wolf - 09/04/2020 10:12 AM CDT Erika notified echo unchanged from last with EF at 35%. She is aware 's office will be calling when he returns to address A FIb. documented in this encounter Plan of Treatment Upcoming Encounters Date Type Department Care Team (Late st Contact Info) Description 02/15/2024 1:30 PM CORRECTIONAL TREATMENT SPECIALIST Office Visit [facility] [address] [place] [address] Tyrell Leiva PA-C [address] [place] [address] 02/15/2024 1:30 PM CORRECTIONAL TREATMENT SPECIALIST [facility] Health[facility] [address] [place] [address] Mary Barber MD [address] [place] [address] 03/15/2024 11:15 AM CORRECTIONAL TREATMENT SPECIALIST Office Visit [facility] [address] [place] [address] Jim Tamez MD [address] [place], [place] [address] 05/16/2024 1:15 AM CDT Allied Health/Nurse Visit [facility] [address] [place] [address] Mary Barber MD [address] [place] [address] 09/07/2024 9:00 AM CDT Office Visit [facility] [address] [place] [address] Tiffany Badillo MD [address] [place], [place] [address] documented as of this encounter Visit Diagnoses Not on filedocumented in this encounter Care Teams Manager Urgent Care Relationship Specialty Start Date End Date Qasim Garrett DO [address] [place] [address] PCP - General FAMILY PRACTICE 04/13/19 Mary Barber MD [address] [place] [address] EP Amortization Clerk CLINICAL CARDIAC ELECTROPHYSIOLOGY 09/15/16 Tiffany Badillo MD [address] [place] [address] Consulting Physician INTERVENTIONAL CARDIOLOGY 12/23/19 Erick Abdi MD [address] [address] Consulting Physician PAIN MANAGEMENT 09/06/20 documented as of this encounter
--- OUTSIDE RECORDS SUMMARY | 2024-01-27 07:45 | XMS_ITS | Encounter Summary ---
Author Organization [facility] Address [address] [place] [address] [place] [address] Care Team Providers Care Dairy Manufacturing Technologist Name Role Phone Mary Barber MD Unavailable Qasim Garrett DO Primary Care Provider [phone] Ez Badillo MD Unavailable [phone] Reason for Referral * Imaging (Routine) - Closed Specialty Diagnoses / Procedures Referred By Contac t Referred To Contact RADIOLOGY Diagnoses NICM (nonischemic cardiomyopathy) ([facility]) Procedures USE ECHOCARDIOGRAM [facility] [address] [place] [address] Phone: tel: fax: Referral ID Status Reason Start Date Expiration Date Visits Re quested Visits Authorized [id number] Closed 05/31/2020 07/01/2021 1 1 Reason for Visit * Imaging (Routine) - Closed Specialty Diagnoses / Procedures Referred By Contac t Referred To Contact RADIOLOGY Diagnoses NICM (nonischemic cardiomyopathy) ([facility]) Procedures USE ECHOCARDIOGRAM [facility] [address] [place] [address] Phone: tel: fax: Referral ID Status Reason Start Date Expiration Date Visits Re quested Visits Authorized [id number] Closed 05/31/2020 07/01/2021 1 1 Encounter Details Date Type Department Care Team (Latest Contact Info) Description 09/03/2020 2:00 PM CDT - 09/03/2020 11:59 PM CDT Hospital Encounter [facility] Non Invasive Cardiology - [facility] [address] [place] [address] Ez Badillo MD [address] [place] [address] Discharge Disposition: Home or Self Care (Routine [...] than three times a week 03/27/2019 Attends Taoist Services Not on file 03/27 Active Member of Clubs or Organizations Not on f ile 03/27/2019 Attends Club or Organization Meetings Never 03/27/2019 Marital Status 03/27/2019 [facility] of Occupat ional Health - Occupational Stress [...] Assessment Author Status No 03/28/2019 12:00 AM FRONT END DRIVER 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 Answer Date of Assessment Author Status No 03/28/2019 12:00 AM FRONT END DRIVER Acti ve * Do you have serious difficulty walking or climbing stairs? Answer Date of Assessment Author Status Yes 03/28/2019 12:00 AM Jonas Collins RN Active * Do you have difficulty dressing or bathing? Answer Date of Assessment Author Status No 03/28/2019 12:00 AM Joans Collisn RN Active * Because of a physical, [...] (40 mg total) by mouth daily. 12/13/2019 apixaban 5 MG tablet Take 1 tablet [...] Take 1 tablet by mouth daily. 11/06/2020 rosuvastatin 40 MG tablet Take 1 tablet (40 mg total) by mouth nightly at bedtime. 90 tablet 3 09/23/2019 10/01/2020 sacubitril-valsar lundberg (ENTRESTO) 24-26 MG tablet Take 1 tablet by mouth 2 (two) times daily. 60 tablet 11 05/22/2020 11/06/2020 SPIRONOLACTONE 25 MG tablet TAKE 1/2 TABLET BY MOUTH EVERY DAY 45 tablet 3 08/06/2020 07/29/2021 documented as of this encounter Plan of Treatment Upcoming Encounters Date Type Department Care Team (Late st Contact Info) Description 02/15/2024 1:30 PM FRONT END DRIVER Office Visit [facility] [address] [place] [address] Tyrell Leiva, PA-C [address] [place] [address] 02/15/2024 1:30 PM FRONT END DRIVER Allied Health/Nurse Visit [facility] [address] [place] [address] Mary Barber MD [address] [place] [address] 03/15/2024 11:15 AM FRONT END DRIVER Office Visit [facility] [place] [address] Jim Tamez MD [address] [place] [address] 05/16/2024 1:15 AM CDT [facility] [address] [place] [address] Mary Barber MD [address] [place] [address] 09/07/2024 9:00 AM CDT Office Visit [facility] [place] [address] Ez Badillo MD [address] [place], [place] [address] documented as of this encounter Procedures Procedure Name Priority Date/Time Associated Diagnosis Comments USE ECHOCARDIOGRAM Routine 09/03/2020 3: 07 PM CDT NICM (nonischemic cardiomyopathy) ([facility]) documented in this encounter Results * USE ECHOCARDIOGRAM (09/03/2020 3:07 PM CDT) Anatomical Region Laterality Modality Cardiac Echocardiogram 09/03/2020 2:09 PM CDT Narrative 09/03/2020 3:55 PM CDT ?Echocardiography Report Pat.Name: ??RAKAN SHAW ?? Pat.ID: ?[id number] ? St.Date: ?? 09/03/2020 ? Refer.MD: ??EZ BADILLO ? Exam Time: 2:09:00 PM ? Study Type:ECHO WITH CARDIAC DOPPLER COMP Height: ?160.02cm ?Weight: ?83.01kg ? BSA: ? 1.86 m2 ?Age: ??1935,85Y ? Sex: ? FEMALE ?Sonogrphr: Dago Rutledge RD ? Pat. Stat.:Outpatient ?CPT - 4: ?37200 ? Reason for Study:Non-Ischemic Cardiomyopathy Procedures: 2D, M-mode, Doppler, Color Flow Race: ?W ? ++++++++++++++++++++++++++++++++++++ SUMMARY: ++++++++++++++++++++++++++++++++++++ The left ventricular size is mildly enlarged. The left ventricular systolic function is depressed. The calculated ejection fraction is 35%. Mild concentric left ventricular hypertrophy. Left ventricular diastolic function is abnormal. ? ? ?Severe global hypokinesis is noted. Right ventricular systolic [...] valve. Trace pulmonic regurgitation. Mild tricuspid regurgitation. ++++++++++++++++++++++++++++++++++++ FINDINGS: ++++++++++++++++++++++++++++++++++++ LV: ? The left ventricular size is mildly enlarged. The left ?ventricular systolic function is depressed. The calculated ?ejection fraction is 35%. Mild concentric left ventricular ?hypertrophy. The septal E/e' is elevated at >15. The lateral ?E/e' is indeterminate at 9-11. The average E/e' is ?indeterminate at 8-15 and EF < 50. Left ventricular ?diastolic function is abnormal. Left ventricular filling ?pressure is indeterminate. WM: ? Severe global hypokinesis is noted. LVOT: ? The left ventricular outflow tract size is normal. RV: ? The right ventricular size is normal. Right ventricular ?systolic function is depressed. Right ventricular systolic ?pressure is 21 mmHg. A pacemaker wire is visualized in the ?right ventricle. TAPSE = 11mm (<16 mm indicates systolic RV ?dysfunction). LA: ? The left atrial volume is severely increased (>48 ml/M2). RA: ? Right atrial size is mildly enlarged. A pacemaker wire is ?visualized in the right atrium. SHAGGY: ? No evidence of pericardial effusion. Prominent pericardial ?fat pad visualized. AO: ? Aortic root is not dilated. Ascending aorta is mildly ?dilated. The aortic root measures 3.5 cm. The proximal ?ascending aorta measures 3.8cm. PA: ? Estimated right atrial pressure of 3 mmHg. PVn: ?Pulmonary veins are not assessable. SVn: ?Inferior vena cava is normal. Inferior vena cava shows >50% ?collapse with respiration consistent with normal right ?atrial pressure. AV: ? The aortic valve is trileaflet. No evidence of aortic valve ?stenosis. Trace aortic regurgitation. Dimensionless index of ?0.4. The LVOT stroke volume index is 22ml/m2. This patient ?has a low stroke volume and thus the severity of aortic ?stenosis maybe underestimated. MV: ? Trace mitral regurgitation. No evidence of mitral stenosis. ?Mild to moderately calcified anterior and posterior mitral ?annulus. Moderate thickening of mitral valve leaflets. ?Myxomatous degeneration of mitral valve. The mean gradient ?across the mitral valve is 1mmHg. PV: ? Trace pulmonic regurgitation. No evidence of pulmonic valve ?stenosis. TV: ? Mild tricuspid regurgitation. No evidence of tricuspid valve ?stenosis. ++++++++++++++++++++++++++++++++++++ MEASUREMENTS: ++++++++++++++++++++++++++++++++++++ ?DOPPLER LVOT ?? LVOTpkPG ? 1 mmHg ?LVOTmnPG ? 1 mmHg LVOTpkVel ? 50.4 cm/s (70-110)+* LVOT SV ? 41 ml ?? LVOT TVI ?9.87 cm ?LVOT CO ? 98.3 ml/s AV Forward Flow AV TVI ?23.4 cm ?AV pkPG ?5 mmHg AV pkVel ? 117 cm/s (100-170) Area (TVI) ?1.75 cm2 ??(3-5)* AV mnVel ?79.4 cm/s ?Area (Rufino) ?1.79 cm2 ??(3-5)* AV mnPG ?3 mmHg ? MV Forward Flow MV DeTm ?264 ms ?MV E/A ?3.45 ? MV mnPG ?1 mmHg ?MV pkE ?67.2 cm/s (60-130) MV pkPG ?2 mmHg ?MV pkA ?19.5 cm/s TV Regurg Flow TV pkPG ? 18 mmHg ? TV pkVel ? 214 cm/s (30-70)+* Lat E' ?? Lat e ? 7.02 cm/s ? Med Em ?? Med Em ?4.68 cm/s ? Lat E/E' ?? Lat E/e ?5.1 ? AV DI ?? Value ?0.4 ? ALISE (VTI) Index ?? Value ? 0.94 ? LV Mass 2D ?? Value ?229 g ? LV Mass Index 2D ?? Value ?123 g/m2 ? SVI ?? Value ? 14 ml/m2 ?2D Left Ventricle ?? LVIDd ? 5.34 cm ?? (3.6-5.2)* LV EF(Bi-Plane) ?35 % ?(55-75)* LVIDs ? 4.43 cm ?? (2.3-3.9)* LVPW ?? LVPWd ?0.972 cm ? Ventricular Septum ?? IVSd ?1.22 cm ? Aorta ?? Ao Rtd ? 3.5 cm ?? (zsc 2.3)* Ao Asc ? 3.8 cm ?? (zsc 4.8)* LVOT ?? LVOT ? 2.3 cm ? Ratios ?? IVS LA Biplane LAVol I BP ?68.8 ml/m2 ? Signed 09/03/2020 3:56:54 PM Ez Badillo M.D. Revised Procedure Note Ez Badillo MD - 09/03/2020 Echocardiography Report Pat.Name: RAKAN SHAW Pat.ID: [id number] St.Date: 09/03/2020 Refer.MD: EZ BADILLO Exam Time: 2:09:00 PM Study Type:ECHO WITH CARDIAC DOPPLER COMP Height: 160.02cm Weight: 83.01kg BSA: 1.86 m2 Age: 1 1935,85Y Sex: FEMALE Sonogrphr: Dago Rutledge RUST Pat. Stat.:Outpatient CPT - 4: 66908 Reason for Study:Non-Ischemic Cardiomyopathy Procedures: 2D, M-mode, Doppler, Color Flow Race: W ++++++++++++++++++++++++++++++++++++ SUMMARY: ++++++++++++++++++++++++++++++++++++ The left ventricular size is mildly enlarged. The left ventricular systolic function is depressed. The calculated ejection fraction is 35%. Mild concentric left ventricular hypertrophy. Left ventricular diastolic function is abnormal. ? ? ?Severe global hypokinesis is noted. Right ventricular systolic [...] valve. Trace pulmonic regurgitation. Mild tricuspid regurgitation. ++++++++++++++++++++++++++++++++++++ FINDINGS: ++++++++++++++++++++++++++++++++++++ LV: The left ventricular size is mildly enlarged. The left ventricular systolic function is depressed. The calculated ejection fraction is 35%. Mild concentric left ventricular hypertrophy. The septal E/e' is elevated at >15. The lateral E/e' is indeterminate at 9-11. The average E/e' is indeterminate at 8-15 and EF < 50. Left ventricular diastolic function is abnormal. Left ventricular filling pressure is indeterminate. WM: Severe global hypokinesis is noted. LVOT: The left ventricular outflow tract size is normal. RV: The right ventricular size is normal. Right ventricular systolic function is depressed. Right ventricular systolic pressure is 21 mmHg. A pacemaker wire is visualized in the right ventricle. TAPSE = 11mm (<16 mm indicates systolic RV dysfunction). LA: The left atrial volume is severely increased (>48 ml/M2). RA: Right atrial size is mildly enlarged. A pacemaker wire is visualized in the right atrium. SHAGGY: No evidence of pericardial effusion. Prominent pericardial fat pad visualized. AO: Aortic root is not dilated. Ascending aorta is mildly dilated. The aortic root measures 3.5 cm. The proximal ascending aorta measures 3.8cm. PA: Estimated right atrial pressure of 3 mmHg. PVn: Pulmonary veins are not assessable. SVn: Inferior vena cava is normal. Inferior vena cava shows >50% collapse with respiration consistent with normal right atrial pressure. AV: The aortic valve is trileaflet. No evidence of aortic valve stenosis. Trace aortic regurgitation. Dimensionless index of 0.4. The LVOT stroke volume index is 22ml/m2. This patient has a low stroke volume and thus the severity of aortic stenosis maybe underestimated. MV: Trace mitral regurgitation. No evidence of mitral stenosis. Mild to moderately calcified anterior and posterior mitral annulus. Moderate thickening of mitral valve leaflets. Myxomatous degeneration of mitral valve. The mean gradient across the mitral valve is 1mmHg. PV: Trace pulmonic regurgitation. No evidence of pulmonic valve stenosis. TV: Mild tricuspid regurgitation. No evidence of tricuspid valve stenosis. ++++++++++++++++++++++++++++++++++++ MEASUREMENTS: ++++++++++++++++++++++++++++++++++++ DOPPLER LVOT LVOTpkPG 1 mmHg LVOTmnPG 1 mmHg LVOTpkVel 50.4 cm/s (70-110)+* LVOT SV 41 ml LVOT TVI 9.87 cm LVOT CO 98.3 ml/s AV Forward Flow AV TVI 23.4 cm AV pkPG 5 mmHg AV pkVel 117 cm/s (100-170) Area (TVI) 1.75 cm2 (3-5)* AV mnVel 79.4 cm/s Area (Rufino) 1.79 cm2 (3-5)* AV mnPG 3 mmHg MV Forward Flow MV DeTm 264 ms MV E/A 3.45 MV mnPG 1 mmHg MV pkE 67.2 cm/s (60-130) MV pkPG 2 mmHg MV pkA 19.5 cm/s TV Regurg Flow TV pkPG 18 mmHg TV pkVel 214 cm/s (30-70)+* Lat E' Lat e 7.02 cm/s Med Em Med Em 4.68 cm/s Lat E/E' Lat E/e 5.1 AV DI Value 0.4 ALISE (VTI) Index Value 0.94 LV Mass 2D Value 229 g LV Mass Index 2D Value 123 g/m2 SVI Value 14 ml/m2 2D Left Ventricle LVIDd 5.34 cm (3.6-5.2)* LV EF(Bi-Plane) 35 % (55-75)* LVIDs 4.43 cm (2.3-3.9)* LVPW LVPWd 0.972 cm Ventricular Septum IVSd 1.22 cm Aorta Ao Rtd 3.5 cm (zsc 2.3)* Ao Asc 3.8 cm (zsc 4.8)* LVOT LVOT 2.3 cm Ratios IVS LA Biplane LAVol I BP 68.8 ml/m2 Signed 09/03/2020 3:56:54 PM Ez Badillo M.D. Revised Ez Badillo MD ECHO Edited Result - Final documented in this encounter Visit Diagnoses Diagnosis NICM (nonischemic cardiomyopathy) (CMS/HCC HHS/HCC) Other primary cardiomyopathies documented in this encounter Care Teams Dairy Manufacturing Technologist Relationship Specialty Start Date End Date Qasim Garrett DO [address] [place] [address] PCP - General FAMILY PRACTICE 04/13/19 Mary Barber MD [address] [place] [address] EP Audit Practice Intern CLINICAL CARDIAC ELECTROPHYSIOLOGY 09/15/16 Ez Badillo MD [address] [place], [place] [address] Consulting Physician INTERVENTIONAL CARDIOLOGY 12/23/19 documented as of this encounter
--- OUTSIDE RECORDS SUMMARY | 2024-01-27 07:46 | XMS_ITS | Encounter Summary ---
Author Organization [facility] Address [facility] [facility] [place] [address] [place] [address] Care Team Providers Care Program Officer Name Role Phone Mary Barber MD Unavailable Qasim Garrett DO Primary Care Provider Tiffany Badillo MD Unavailable [phone] Reason for Visit * Reason Onset Date Comments Surgery Questions 08/29/2020 Encounter Details Date Type Department Care Team (Late st Contact Info) Description 08/29/2020 Telephone [facility] [address] [place] [address] Mary Barber MD [address] [place] [address] Surgery Questions Social History Tobacco Use Types Packs/Day Years [...] Assessment Author Status No 03/28/2019 12:00 AM MULTIPLE KNIFE EDGE TRIMMER OPERATOR 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 Answer Date of Assessment Author Status No 03/28/2019 12:00 AM MULTIPLE KNIFE EDGE TRIMMER OPERATOR Acti ve * Do you have serious [...] Date Author Status No 03/28/2019 12:00 AM MULTIPLE KNIFE EDGE TRIMMER OPERATOR Jonas Garcia RN Active documented in this encounter Progress Notes * Rosa Monsivais RN - 08/29/2020 1:15 PM CDT LVM with Dr. Erick Abdi office re: what kind of radiofrequency ablation is she having with them? Dr. Barber needs this info to determine perioperative management of her ICD. Office called back- this will be a lumbar spine RF ablation. Will update Dr. Barber. documented in this encounter Plan of Treatment Upcoming Encounters Date Type Department Care Team (Late st Contact Info) Description 02/15/2024 1:30 PM MULTIPLE KNIFE EDGE TRIMMER OPERATOR Office Visit [facility] [address] [place] [address] Tyrell Leiva, PA-C [address] [place] [address] 02/15/2024 1:30 PM MULTIPLE KNIFE EDGE TRIMMER OPERATOR Allied Health/Nurse Visit [facility] [address] [place] [address] Mary Barber MD [address] [place] [address] 03/15/2024 11:15 AM MULTIPLE KNIFE EDGE TRIMMER OPERATOR Office Visit [facility] [place] [address] Jim Tamez MD [address] [place] [address] 05/16/2024 1:15 AM CDT Allied Health/Nurse Visit [facility] [address] [place] [address] Mary Barber MD [address] [place] [address] 09/07/2024 9:00 AM CDT Office Visit [facility] [place] [address] Tiffany Badillo MD [address] [place], [place] [address] documented as of this encounter Visit Diagnoses Not on filedocumented in this encounter Care Teams Program Officer Relationship Specialty Start Date End Date Qasim Garrett DO [address] [place] [address] PCP - General FAMILY PRACTICE 04/13/19 Mary Barber MD [address] [place] [address] EP Program Therapist CLINICAL CARDIAC ELECTROPHYSIOLOGY 09/15/16 Tifafny Badillo MD [address] [place], [place] [address] Consulting Physician INTERVENTIONAL CARDIOLOGY 12/23/19 documented as of this encounter
--- OUTSIDE RECORDS SUMMARY | 2024-01-27 07:47 | XMS_ITS | Encounter Summary ---
Author Organization [facility] Address [address] [facility] [place] [address] [place] [address] Care Team Providers Care Compliance Mgr Name Role Phone Mary Barber MD Unavailable Qasim Garrett DO Primary Care Provider [phone] Tiffany Badillo MD Unavailable [phone] Reason for Visit * Reason Onset Date Comments Information 08/29/2020 Periop worksheet Encounter Details Date Type Department Care Team ([facility] st Contact Info) Description 08/29/2020 Telephone [facility] [address] [place] [address] Mary Barber MD [address] [place] [address] Information (Periop worksheet) Social History [...] than three times a week 03/27/2019 Attends Faith Services Not on file 03/27 Active Member of Clubs or Organizations Not on f ile 03/27/2019 Attends Club or Organization Meetings Never 03/27/2019 Marital Status 03/27/2019 [facility] of Occupat ional Health - Occupational [...] Assessment Author Status No 03/28/2019 12:00 AM INSTITUTIONAL COOK 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 Answer Date of Assessment Author Status No 03/28/2019 12:00 AM INSTITUTIONAL COOK Acti ve * Do you have serious [...] Date Author Status No 03/28/2019 12:00 AM INSTITUTIONAL COOK Jonas Garcia RN Active documented in this encounter Progress Notes * Triny Rader - 08/29/2020 1:36 PM CDT Perioperative Management worksheet scanned into the patients chart. Faxed Perioperative Management worksheet to Dr Erick Abdi with [facility] @ #[phone].. * Dianna Marshall RN - 08/29/2020 11:02 AM CDT Faxed request received from Dr Erick Abdi with [facility]. Patient scheduled for a radiofrequency ablation. Periop worksheet initiated by device clinic and taken to Dr Barber's office for completion Please fax completed form to documented in this encounter Plan of Treatment Upcoming Encounters Date Type Department Care Team (Late st Contact Info) Description 02/15/2024 1:30 PM INSTITUTIONAL COOK Office Visit [facility] [address] [place] [address] Tyrell Leiva PA-C [address] [place] [address] 02/15/2024 1:30 PM INSTITUTIONAL COOK Allied Health/Nurse Visit [facility] [address] [place] [address] Mary Barber MD [address] [place] [address] 03/15/2024 11:15 AM INSTITUTIONAL COOK Office Visit [facility] [place] [address] Jim Tamez MD [address] [place], [place] [address] 05/16/2024 1:15 AM CDT [facility] [address] [place] [address] Mary Barber MD [address] [place] [address] 09/07/2024 9:00 AM CDT Office Visit [facility] [place] [address] Tiffany Badillo MD [address] [place], [place] [phone] documented as of this encounter Visit Diagnoses Not on filedocumented in this encounter Care Teams Compliance Mgr Relationship Specialty Start Date End Date Qasim Garrett DO [address] [place] [address] PCP - General FAMILY PRACTICE 04/13/19 Mary Barber MD [address] [place] [address] EP Director Education CLINICAL CARDIAC ELECTROPHYSIOLOGY 09/15/16 Tiffany Badillo MD [address] [place], [place] [address] Consulting Physician INTERVENTIONAL CARDIOLOGY 12/23/19 documented as of this encounter
--- OUTSIDE RECORDS SUMMARY | 2024-01-27 07:48 | XMS_ITS | Encounter Summary ---
Author Organization [facility] Address [address] [facility] [address] [place] [address] [place] [address] Care Team Providers Care Usability Strategist Name Role Phone Mary Barber MD Unavailable Qasim Garrett DO Primary Care Provider [phone] Tiffany Badillo MD Unavailable Encounter Details Date Type Department Care Team (Latest Contact Info) Description 05/28/2020 Travel Social History Tobacco Use Types Packs/Day [...] Meetings Never 03/27/2019 Marital Status 03/27/2019 [facility] of Occupat ional Health - Occupational Stress [...] have Coronavirus / COVID-19? No / Unsure 05/28/2020 8:19 AM CDT documented as of this encounter Functional Status * RETIRED Are you deaf or do you have serious difficulty hearing Answer Date of Assessment Author Status No 03/28/2019 12:00 AM DENTAL COORDINATOR 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 Answer Date of Assessment Author Status No 03/28/2019 12:00 AM DENTAL COORDINATOR Acti ve * Do you have serious [...] st Contact Info) Description 02/15/2024 1:30 PM DENTAL COORDINATOR [facility] [address] [place] [address] Tyrell Leiva, PAHaylieC [address] [place] [address] 02/15/2024 1:30 PM DENTAL COORDINATOR [facility] [address] [place] [address] Mary Barber MD [address] [place] [address] 03/15/2024 11:15 AM DENTAL COORDINATOR [facility] Visit [facility] [place] [address] [place] [address] Jim Tamez MD [address] [place], [place] [address] [phone] 05/16/2024 1:15 AM CDT [facility] [address] [place] [address] Mary Barber MD [address] [place] [address] 09/07/2024 9:00 AM CDT Office Visit [facility] [place] [address] [place] [address] Tiffany Badillo MD [address] [place] [address] documented as of this encounter Visit Diagnoses Not on filedocumented in this encounter Care Teams Usability Strategist Relationship Specialty Start Date End Date Qasim Garrett DO [address] [place] [address] PCP - General FAMILY PRACTICE 04/13/19 Mary Barber MD [address] [place] [address] EP Head Of Loss Prevention CLINICAL CARDIAC ELECTROPHYSIOLOGY 09/15/16 Tiffany Badillo MD [address] [place] [address] Consulting Physician INTERVENTIONAL CARDIOLOGY 12/23/19 documented as of this encounter
--- OUTSIDE RECORDS SUMMARY | 2024-01-27 07:48 | XMS_ITS | Encounter Summary ---
Author Organization [facility] Address [address] [place] [address] [place] [address] Care Team Providers Care Radiology Clerk Name Role Phone Mary Barber MD Unavailable Qasim Garrett DO Primary Care Provider [phone] Ez Badillo MD Unavailable [phone] Encounter Details Date Type Department Care Team (Latest Contact Info) Description 05/28/2020 8:23 AM CDT - 05/28/2020 11:59 PM CDT Hospital Encounter [facility] [address] [place] [address] Ez Badillo MD [address] [place] [address] Discharge Disposition: Home or Self Care [...] Assessment Author Status No 03/28/2019 12:00 AM SUPPLIER RELATIONSHIP DIRECTOR 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 Answer Date of Assessment Author Status No 03/28/2019 12:00 AM SUPPLIER RELATIONSHIP DIRECTOR Acti ve * Do you have serious [...] Assessment Author Status No 03/28/2019 12:00 AM SUPPLIER RELATIONSHIP DIRECTOR Jonas Garcia RN Active documented as of [...] (40 mg total) by mouth daily. 12/13/2019 ELIQUIS 5 MG tablet TAKE 1 TABLET BY MOUTH TWICE A DAY 180 tablet 3 03/28/2020 05/31/2020 furosemide 20 MG tablet Take 1 tablet (20 mg total) by mouth daily. 30 tablet 2 05/22/2020 08/14/2020 metoprolol succinate ER 50 MG 24 hr [...] times daily. 60 tablet 11 05/22/2020 11/06/2020 spironolactone 25 MG tablet Take 0.5 tablets (12.5 mg total) by mouth daily. 15 tablet 2 05/22/2020 08/06/2020 documented as of this encounter Plan of Treatment Upcoming Encounters Date Type Department Care Team (Late st Contact Info) Description 02/15/2024 1:30 PM SUPPLIER RELATIONSHIP DIRECTOR Office Visit [facility] [address] [place] [address] Tyrell Leiva, PA-C [address] [place] [address] 02/15/2024 1:30 PM SUPPLIER RELATIONSHIP DIRECTOR Allied Health/Nurse Visit [facility] ld [address] [place] [address] Mary Barber MD [address] [place] [address] 03/15/2024 11:15 AM SUPPLIER RELATIONSHIP DIRECTOR Office Visit [address] [place] [address] Jim Tamez MD [address] [place], [place] [address] 766- 05/16/2024 1:15 AM CDT Allied Health/Nurse Visit [facility] ld [address] [place] [address] Mary Barber MD [address] [place] [address] 09/07/2024 9:00 AM CDT Office Visit [address] [place] [address] Ez Badillo MD [address] [place] [address] documented as of this encounter Procedures Procedure Name Priority Date/Time Associated Diagnosis Comments XR CHEST PA+LAT Routine 05/28/2020 8:52 AM CDT Personal history of PE (pulmonary embolism) SOB (shortness of breath) documented in this encounter Results * XR CHEST PA+LAT (05/28/2020 8:52 AM CDT) Anatomical Region Laterality Modality Chest Radiographic Angelina ging 05/28/2020 8:51 AM CDT Impressions 05/28/2020 8:51 AM CDT IMPRESSION: No acute findings Referred By: EZ BADILLO Interpreted By: Clive Holland MD, 05/28/2020 8:51 AM Narrative 05/28/2020 8:51 AM CDT 2 VIEWS OF THE CHEST Clinical history: Shortness of breath Comparison: None 2 views of the chest demonstrate the cardiac silhouette to be within normal limits for size. A multilead ICD is evident from a left-sided approach. The pulmonary vessels are normally distributed. The Lungs are clear. No consolidations or effusions are seen. Procedure Note Clive Holland MD - 05/28/2020 2 VIEWS OF THE CHEST Clinical history: Shortness of breath Comparison: None 2 views of the chest demonstrate the cardiac silhouette to be withinnormal limits for size. A multilead ICD is evident from a left-sided approach.The pulmonary vessels are normally distributed. The Lungs are clear. No consolidations or effusions are seen. IMPRESSION: No acute findings Referred By: EZ BADILLO Interpreted By: Clive Holland MD, 05/28/2020 8:51 AM Ez Badillo MD GENERAL IMAGING Final Result documented in this encounter Visit Diagnoses Diagnosis Personal history of PE (pulmonary embolism) Personal history of pulmonary embolism SOB (shortness of breath) Shortness of breath documented in this encounter Care Teams Radiology Clerk Relationship Specialty Start Date End Date Qasim Garrett DO [address] [place] [address] PCP - General FAMILY PRACTICE 04/13/19 Mary Barber MD [address] [place] [address] EP Making Department Preparer CLINICAL CARDIAC ELECTROPHYSIOLOGY 09/15/16 Ez Badillo MD [address] [place] [address] Consulting Physician INTERVENTIONAL CARDIOLOGY 12/23/19 documented as of this encounter
--- OUTSIDE RECORDS SUMMARY | 2024-01-27 07:48 | XMS_ITS | Encounter Summary ---
Author Organization [facility] Address [address] [facility] [place] [address] [place] [address] Care Team Providers Care Braille Teacher Name Role Phone Mary Barber MD Unavailable Qasim Garrett DO Primary Care Provider [phone] Tiffany Badillo MD Unavailable [phone] Encounter Details Date Type Department Care Team (Late st Contact Info) Description 07/02/2020 1:00 PM CDT Allied Health/Nurse Visit [facility] [address] [place] [address] Mary Barber MD [address] [place] [address] Social History Tobacco Use Types Packs/Day Years [...] Organization Meetings Never 03/27/2019 Marital Status 03/27/2019 [facility] of Occupat ional Health - [...] Assessment Author Status No 03/28/2019 12:00 AM GORING CUTTER 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 Answer Date of Assessment Author Status No 03/28/2019 12:00 AM GORING CUTTER Acti ve * Do you have serious [...] Date Author Status No 03/28/2019 12:00 AM GORING CUTTER Jonas Garcia RN Active documented in this encounter Progress Notes * Dianna Marshall RN - 07/02/2020 1:00 PM CDT Images from the original note were not included. ICD REMOTE INTERROGATION NAME: Sera Shaffer : 1935 CSN: [id number] DATE OF INTERROGATION: 07/02/2020 FOLLOW UP E.P PHYSICIAN: Dr Mary Barber DEVICE SPECIFICATIONS DEVICE BOOKY [employer] SCIENTIFIC DEVICE TYPE BIV ICD EST. BATTERY LIFE OR CURRENT VOLTAGE/ROSALIND VOLTAGE 2 y LEAD IMPEDENCE TRENDS OK ATRIAL PACING % 10% RV PACING % 92% BIV/LVP PACING % 96% COMMENTS ATRIAL ARRHYTHMIAS AF BURDEN 128.7 days LONGEST EPISODE > 48 hrs ORAL ANTICOAGULATION Eliquis/Apixaban and ASA COMMENTS VENTRICULAR ARRHYTHMIAS NSVT EPISODE(S) 45 VT EPISODE(S) 0 FVT EPISODE(S) 0 VF EPISODE(S) 0 COMMENTS ALERTS / NURSE COMMENTS ??? SEE ATTACHED PDF FOR VENDOR PRINTOUTS (PRESENTING, HISTOGRAMS, EGM???S) ??? Normal device function ??? PHYSICIAN COMMENTS (IF ANY) ??? Cosigned by Mary Barber MD at 07/11/2020 4:26 PM CDT documented in this encounter Plan of Treatment Upcoming Encounters Date Type Department Care Team (Late st Contact Info) Description 02/15/2024 1:30 PM GORING CUTTER [facility] [address] [place] [address] Tyrell Leiva PA-C [address] [place] [address] 02/15/2024 1:30 PM GORING CUTTER Allied Health/Nurse Visit [facility] ld [address] [place] [address] Mary Barber MD [address] [place] [address] 03/15/2024 11:15 AM GORING CUTTER Office Visit [facility] [address] [facility] [place] [address] Jim Tamez MD [address] [place], [place] [address] 05/16/2024 1:15 AM CDT Allied Health/Nurse Visit [facility] [address] [place] [address] Mary Barber MD [address] [place] [address] 09/07/2024 9:00 AM CDT Office Visit [facility] [address] [facility] [place] [address] Tiffany Badillo MD [address] [place], [place] [address] documented as of this encounter Visit Diagnoses Not on filedocumented in this encounter Care Teams Braille Teacher Relationship Specialty Start Date End Date Qasim Garrett DO [address] [place] [address] PCP - General FAMILY PRACTICE 04/13/19 Mary Barber MD [address] [place] [address] EP Finish Filer CLINICAL CARDIAC ELECTROPHYSIOLOGY 09/15/16 Tiffany Badillo MD [address] [place] [address] Consulting Physician INTERVENTIONAL CARDIOLOGY 12/23/19 documented as of this encounter
--- OUTSIDE RECORDS SUMMARY | 2024-01-27 07:48 | XMS_ITS | Encounter Summary ---
Author Organization [facility] Address [address] [facility] [place] [address] [place] [address] Care Team Providers Care Resident Care Associate Name Role Phone Mary Barber MD Unavailable Qasim Garrett DO Primary Care Provider [phone] Tiffany Badillo MD Unavailable [phone] Reason for Visit * Reason Onset Date Comments Appointment Request 07/31/2020 pt due for mariana gutierrezmonica Encounter Details Date Type Department Care Team (Late st Contact Info) Description 07/31/2020 [facility]phone [facility] [address] [place] [address] Mary Barber MD [address] [place] [address] Appointment Request (pt due for recall ) Social History Tobacco Use Types Packs/Day [...] Assessment Author Status No 03/28/2019 12:00 AM SMOKING TOBACCO CUTTER OPERATOR 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 Answer Date of Assessment Author Status No 03/28/2019 12:00 AM SMOKING TOBACCO CUTTER OPERATOR Acti ve * Do you have [...] Date Author Status No 03/28/2019 12:00 AM SMOKING TOBACCO CUTTER OPERATOR Jonas Garcia RN Active documented in this encounter Progress Notes * Catalina Magaña - 07/31/2020 8:14 AM CDT Called pt, pt scheduled with Ananya Odell on 09/03/20 at 1:30, pt already scheduled for echo & Dr Badillo appt at 2:00 & 2:30 Pt states this will work great Pt v/u and letter is mailed BS rep notified documented in this encounter Plan of Treatment Upcoming Encounters Date Type Department Care Team (Late st Contact Info) Description 02/15/2024 1:30 PM SMOKING TOBACCO CUTTER OPERATOR Office Visit [facility] ld [address] [place] [address] Tyrell Leiva, PA-C [address] [place] [address] [phone] 02/15/2024 1:30 PM SMOKING TOBACCO CUTTER OPERATOR Allied Health/Nurse Visit [facility] ld [address] [place] [address] [phone] Mary Barber MD [address] [place] [address] [phone] 03/15/2024 11:15 AM SMOKING TOBACCO CUTTER OPERATOR [facility] [place] [address] Jim Tamez MD [address] [place] [address] 05/16/2024 1:15 AM CDT Allied Health/Nurse Visit [facility] ld [address] [place] [address] Mary Barber MD [address] [place] [address] 09/07/2024 9:00 AM CDT [facility] Visit [facility] [place] [address] Tiffany Badillo MD [address] [place], [place] [address] documented as of this encounter Visit Diagnoses Not on filedocumented in this encounter Care Teams Resident Care Associate Relationship Specialty Start Date End Date Qasim Garrett DO [address] [place] [address] PCP - General FAMILY PRACTICE 04/13/19 Mary Barber MD [address] [place] [address] EP Director Of Research CLINICAL CARDIAC ELECTROPHYSIOLOGY 09/15/16 Tiffany Badillo MD [address] [place] [address] Consulting Physician INTERVENTIONAL CARDIOLOGY 12/23/19 documented as of this encounter
--- OUTSIDE RECORDS SUMMARY | 2024-01-27 07:48 | XMS_ITS | Encounter Summary ---
Author Organization [facility] Address [address] [facility] [place] [address] [place] [address] Care Team Providers Care Cloth Stock Sorter Name Role Phone Mary Barber MD Unavailable Qasim Garrett DO Primary Care Provider Tiffany Badillo MD Unavailable [phone] Reason for Visit * Reason Onset Date Comments Clarification 05/23/2020 imaging Encounter Details Date Type Department Care Team (Late st Contact Info) Description 05/23/2020 Telephone [facility] [address] [place] [address] Tiffany Badillo MD [address] [place] [address] Clarification (imaging) Social History Tobacco Use Types Packs/Day Years [...] Assessment Author Status No 03/28/2019 12:00 AM FUEL BUYER 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 Answer Date of Assessment Author Status No 03/28/2019 12:00 AM FUEL BUYER Acti ve * Do you have serious [...] encounter Progress Notes * Cony Wolf - 05/31/2020 11:30 AM CDT Sera notified of test results. She is aware to decrease Eliquis to 2.5mg BID, follow Up 08/27/20 2pm for echo and see after at [facility]. Reminder mailed. She reports she is less SOB since starting the Entresto. She will call back with BP readings. * Cony Wolf - 05/31/2020 10:39 AM CDT Additional VM left for Sera to call me back. * Cony Wolf - 05/30/2020 10:36 AM CDT VM left for Sera to call back for stable CT and CXR results. * Cony Wolf - 05/24/2020 8:54 AM CDT Sera will have CXR on 05/28 at [facility], VQ scan and venous duplex are on 05/29 at 12:30pm and 1:30pm SFL. She is aware and apologizes for the confusion by scheduling the tests herself. * Julisa Carr - 05/23/2020 5:02 PM CDT TELENURSE VOICE MAIL DATE/TIME: 05/23/2020 at 9:20 AM CALLER: pt PT NAME/: Sera Shaffer 1935 PH #: [phone] (home) PROVIDER/NEW PT: Dr. Badillo REASON FOR CALL: Pt called. She is completely confused regarding her imaging. ENCOUNTER NOTE SENT TO: Aby pod documented in this encounter Plan of Treatment Upcoming Encounters Date Type Department Care Team (Late st Contact Info) Description 02/15/2024 1:30 PM FUEL BUYER [facility] [address] [place] [address] Tyrell Leiva, PA-C [address] [place] [address] 02/15/2024 1:30 PM FUEL BUYER Allied Health/Nurse Visit [facility] ld [address] [place] [address] Mary Barber MD [address] [place] [address] 03/15/2024 11:15 AM FUEL BUYER Office Visit [facility] [place] [address] [place] [address] Jim Tamez MD [address] [place] [address] 05/16/2024 1:15 AM CDT Allied Health/Nurse Visit [facility] ld [address] [place] [address] Mary Barber MD [address] [place] [address] 09/07/2024 9:00 AM CDT Office Visit [facility] [place] [address] [place] [address] Tiffany Badillo MD [address] [place] [address] documented as of this encounter Visit Diagnoses Not on filedocumented in this encounter Care Teams Cloth Stock Sorter Relationship Specialty Start Date End Date Qasim Garrett DO [address] [place] [address] PCP - General FAMILY PRACTICE 04/13/19 Mary Barber MD [address] [place] [address] EP Net Software Architect CLINICAL CARDIAC ELECTROPHYSIOLOGY 09/15/16 Tiffany Badillo MD [address] [place] [address] Consulting Physician INTERVENTIONAL CARDIOLOGY 12/23/19 documented as of this encounter
--- OUTSIDE RECORDS SUMMARY | 2024-01-27 07:48 | XMS_ITS | Encounter Summary ---
Author Organization [facility] Address Critical access hospital[address] [place] [address] [place] [address] Care Team Providers Care Bakery Deliverer Name Role Phone Mary Barber MD Unavailable Qasim Garrett DO Primary Care Provider [phone] Ez Badillo MD Unavailable [phone] Reason for Referral * Imaging (Routine) - Closed Specialty Diagnoses / Procedures Referred By Contac t Referred To Contact RADIOLOGY Diagnoses NICM (nonischemic cardiomyopathy) ([facility]) Procedures USE ECHOCARDIOGRAM [facility] ld [address] [place] [address] Phone: tel: fax: Referral ID Status Reason Start Date Expiration Date Visits Re quested Visits Authorized [id number] Closed 05/31/2020 07/01/2021 1 1 Encounter Details Date Type Department Care Team (Late st Contact Info) Description 05/31/2020 Orders Only [facility] [address] [place] [address] Cony Wolf, RN Social History [...] Organization Meetings Never 03/27/2019 Marital Status 03/27/2019 [facility] [place] of Occupat ional Health - Occupational Stress [...] have Coronavirus / COVID-19? No / Unsure 05/29/2020 12:04 PM CDT documented as of this encounter Functional Status * RETIRED Are you deaf or do you have serious difficulty hearing Answer Date of Assessment Author Status No 03/28/2019 12:00 AM WINDSHIELD REPAIR TECHNICIAN 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 Answer Date of Assessment Author Status No 03/28/2019 12:00 AM WINDSHIELD REPAIR TECHNICIAN Acti ve * Do you have serious [...] st Contact Info) Description 02/15/2024 1:30 PM WINDSHIELD REPAIR TECHNICIAN Office Visit [facility] ld [address] [place] [address] Tyrell Leiva PAHaylieC [address] [place] [address] 02/15/2024 1:30 PM WINDSHIELD REPAIR TECHNICIAN Allied Health/Nurse Visit [facility] ld [address] [place] [address] Mary Barber MD [address] [place] [address] 03/15/2024 11:15 AM WINDSHIELD REPAIR TECHNICIAN [facility] [place] [address] Jim Tamez MD [address] [place] [address] 05/16/2024 1:15 AM CDT Allied Health/Nurse Visit [facility] ld [address] [place] [address] Mary Barber MD [address] [place] [address] 09/07/2024 9:00 AM CDT Office Visit [facility] [address] [place] [address] Ez Badillo MD [address] [place] [address] documented as of this encounter Results * USE ECHOCARDIOGRAM (09/03/2020 3:07 PM CDT) Anatomical Region Laterality Modality Cardiac Echocardiogram 09/03/2020 2:09 PM CDT Narrative 09/03/2020 3:55 PM CDT ?Echocardiography Report Pat.Name: ??RAKAN SHAW ?? Pat.ID: ?[id number] ? St.Date: ?? 09/03/2020 ? Refer.: ??EZ BADILLO ? Exam Time: 2:09:00 PM ? Study Type:ECHO WITH CARDIAC DOPPLER COMP Height: ?160.02cm ?Weight: ?83.01kg ? BSA: ? 1.86 m2 ?Age: ??1935,85Y ? Sex: ? FEMALE ?Sonogrphr: Dago Rutledge RDCS ? Pat. Stat.:Outpatient ?CPT - 4: ?14943 ? Reason for Study:Non-Ischemic Cardiomyopathy Procedures: 2D, [...] 09/03/2020 Echocardiography Report Pat.Name: RAKAN SHAW Pat.ID: [id number] .Date: 09/03/2020 Refer.MD: EZ BADILLO Exam Time: 2:09:00 PM Study Type:ECHO WITH CARDIAC DOPPLER COMP Height: 160.02cm Weight: 83.01kg BSA: 1.86 m2 Age: 1 1935,85Y Sex: FEMALE Sonogrphr: Dago Rutledge [facility] Pat. Stat.:Outpatient CPT - 4: 83359 Reason for Study:Non-Ischemic Cardiomyopathy Procedures: 2D, M-mode, [...] 09/03/2020 3:56:54 PM Ez Badillo M.D. Revised us Ez Badillo MD ECHO Edited Result - Final documented in this encounter Visit Diagnoses Diagnosis NICM (nonischemic cardiomyopathy) (CMS/HCC HHS/HCC)- Primary Other primary cardiomyopathies NICM (nonischemic cardiomyopathy) (CMS/HCC HHS/HCC) Other primary cardiomyopathies documented in this encounter Care Teams Bakery Deliverer Relationship Specialty Start Date End Date Qasim Garrett DO [address] [place] [address] PCP - General FAMILY PRACTICE 04/13/19 Mary Barber MD [address] [place] [phone] EP Power Lineworker CLINICAL CARDIAC ELECTROPHYSIOLOGY 09/15/16 Ez Badillo MD [address] [place], [place] [address] Consulting Physician INTERVENTIONAL CARDIOLOGY 12/23/19 documented as of this encounter
--- OUTSIDE RECORDS SUMMARY | 2024-01-27 07:48 | XMS_ITS | Encounter Summary ---
Author Organization [facility] Address [address] [facility]. [place], [place] [address] [place] [address] Care Team Providers Care Flash Designer Name Role Phone Mary Barber MD Unavailable Qasim Garrett DO Primary Care Provider [phone] Ez Badillo MD Unavailable [phone] Reason for Referral * Imaging (Routine) - Closed Specialty Diagnoses / Procedures Referred By Contac t Referred To Contact RADIOLOGY Diagnoses Personal history of PE (pulmonary embolism) Procedures USV JUANJOSE DUPLEX LOW EXT RT Ez Badillo MD [address] [place] [address] Phone: tel: fax: Referral ID Status Reason Start Date Expiration Date Visits Re quested Visits Authorized [id number] Closed 05/22/2020 06/22/2021 1 1 * Imaging (Routine) - Closed Specialty Diagnoses / Procedures Referred By Contac t Referred To Contact RADIOLOGY Diagnoses Personal history of PE (pulmonary embolism) SOB (shortness of breath) Procedures NM LUNG PERFUSION NM LUNG SCAN VENT+PERF Ez Badillo MD [address] [place] [address] Phone: tel: fax: Referral ID Status Reason Start Date Expiration Date Visits Re quested Visits Authorized [id number] Closed 05/22/2020 06/22/2021 1 1 Reason for Visit * Imaging (Routine) - Closed Specialty Diagnoses / Procedures Referred By Contac t Referred To Contact RADIOLOGY Diagnoses Personal history of PE (pulmonary embolism) SOB (shortness of breath) Procedures NM LUNG PERFUSION NM LUNG SCAN VENT+PERF Ez Badillo MD [address] [place] [address] Phone: tel: fax: Referral ID Status Reason Start Date Expiration Date Visits Re quested Visits Authorized [id number] Closed 05/22/2020 06/22/2021 1 1 Encounter Details Date Type Department Care Team (Latest Contact Info) Description 05/29/2020 12:06 PM CDT - 05/29/2020 11:59 PM CDT Hospital Encounter [facility] [address] [place] [address] [place] [address] Ez Badillo MD [address] [place] [address] Discharge Disposition: Home or Self [...] Marital Status 03/27/2019 [facility] [place] of Occupat ional Health - Occupational Stress [...] Assessment Author Status No 03/28/2019 12:00 AM ELECTRONICS ENGINEER 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 Answer Date of Assessment Author Status No 03/28/2019 12:00 AM ELECTRONICS ENGINEER Acti ve * Do you have [...] Date Author Status No 03/28/2019 12:00 AM ELECTRONICS ENGINEER Jonas Garcia RN Active documented in this encounter Medications [...] st Contact Info) Description 02/15/2024 1:30 PM ELECTRONICS ENGINEER [facility] [address] [place] [address] Tyrell Leiva, PA-C [address] [place] [address] 02/15/2024 1:30 PM ELECTRONICS ENGINEER Allied Health[facility] [address] [place] [address] Mary Barber MD [address] [place] [address] 03/15/2024 11:15 AM ELECTRONICS ENGINEER Office Visit [address] [place] [address] Jim Tamez MD [address] [place], [place] [address] 05/16/2024 1:15 AM CDT Allied Health/Nurse Visit [facility] [address] [place] [address] Mary Barber MD [address] [place] [address] 403- 09/07/2024 9:00 AM CDT Office Visit [address] [place] [address] Ez Badillo MD [address] [place], [place] [address] documented as of this encounter Procedures Procedure Name Priority Date/Time Associated Diagnosis Comments NM LUNG PERFUSION Routine 05/29/2020 1:0 1 PM CDT Personal history of PE (pulmonary embolism) SOB (shortness of breath) USV JUANJOSE DUPLEX LOW EXT RT Routine 05/29/2020 12:15 PM CDT Personal history of PE (pulmonary embolism) documented in this encounter Results * NM LUNG PERFUSION (05/29/2020 1:01 PM CDT) Anatomical Region Laterality Modality Chest Nuclear Medicine 05/29/2020 1:37 PM CDT Impressions 05/29/2020 1:40 PM CDT IMPRESSION: Perfusion only study reveals near uniform distribution of activity bilaterally with no segmental defects. ??This is consistent with low probability for acute pulmonary embolism. Referred By: EZ BADILLO Interpreted By: David Ortiz MD, 05/29/2020 1:37 PM Narrative 05/29/2020 1:40 PM CDT Perfusion Scintigraphy (Perfusion Only Study due to the current Covid-19 Pandemic.) Exam date: 05/29/2020. Indications: 85-year-old female with elevated d-dimer. ??Evaluate for evidence of acute pulmonary embolism. Radiopharmaceutical: 4.1 mCi Tc-99m MAA IV. Comparison: -PA and lateral chest films dated 05/28/2020 at 0845 hours. Findings: The perfusion images demonstrate near uniform distribution of activity bilaterally with no segmental defects. Procedure Note David Ortiz MD - 05/29/2020 Perfusion Scintigraphy (Perfusion Only Study due to the current Covid-19 Pandemic.) Exam date: 05/29/2020. Indications: 85-year-old female with elevated d-dimer. Evaluate for evidence of acutepulmonary embolism. Radiopharmaceutical: 4.1 mCi Tc-99m MAA IV. Comparison: -PA and lateral chest films dated 05/28/2020 at 0845 hours. Findings: The perfusion images demonstrate near uniform distribution of activitybilaterally with no segmental defects. IMPRESSION: Perfusion only study reveals near uniform distribution of activitybilaterally with no segmental defects. This is consistent with lowprobability for acute pulmonary embolism. Referred By: EZ BADILLO Interpreted By: David Ortiz MD, 05/29/2020 1:37 PM us Ez Badillo MD NUC MED Final Result * USV JUANJOSE DUPLEX LOW EXT RT (05/29/2020 12:15 PM CDT) Anatomical Region Laterality Modality Extremity Ultrasound 05/29/2020 1:34 PM CDT Impressions 05/29/2020 1:37 PM CDT IMPRESSION: Normal right lower extremity venous Doppler study. No DVT seen. Referred By: EZ BADILLO Interpreted By: Broderick Andrea MD, 05/29/2020 1:34 PM Narrative 05/29/2020 1:37 PM CDT RIGHT LOWER EXTREMITY VENOUS DOPPLER STUDY Indication: Right lower extremity swelling. History of PE. Comparison study: 08/11/2019. Technique: Right lower extremity venous Doppler study was performed with gamino scale, duplex and color-flow images obtained. Findings: The common femoral, superficial femoral, popliteal, peroneal and posterior tibial veins were all visualized to be patent and compressible with normal flow augmentation. No evidence of DVT. Contralateral left common femoral vein was interrogated by the technologist. Procedure Note Broderick Andrea MD - 05/29/2020 RIGHT LOWER EXTREMITY VENOUS DOPPLER STUDY Indication: Right lower extremity swelling. History of PE. Comparison study: 08/11/2019. Technique: Right lower extremity venous Doppler study was performed with gamino scale, duplex and color-flow images obtained. Findings: The common femoral, superficial femoral, popliteal, peroneal andposterior tibial veins were all visualized to be patent and compressible withnormal flow augmentation. No evidence of DVT. Contralateral left common femoral vein was interrogated by the technologist. IMPRESSION: Normal right lower extremity venous Doppler study. No DVT seen. Referred By: EZ BADILLO Interpreted By: Broderick Andrea MD, 05/29/2020 1:34 PM Ez Badillo MD VAS Final Result documented in this encounter Visit Diagnoses Diagnosis Personal history of PE (pulmonary embolism) Personal history of pulmonary embolism SOB (shortness of breath) Shortness of breath documented in this encounter Administered Medications Inactive Administered Medications - up to 3 most recent administrations Medication Order MAR Action Action Date Dose Rate Site Generic Radiopharmaceutical 4.2 millicurie 4.2 millicurie, Intravenous, Once, 1 dose, On 05/29/20 at 1245 Given 05/29/2020 12:45 PM CDT 4.2 millicuries documented in this encounter Care Teams Flash Designer Relationship Specialty Start Date End Date Qasim Garrett DO [address] [place] [address] PCP - General FAMILY PRACTICE 04/13/19 Mary Barber MD [address] [place] [address] EP Head Of Acquisitions CLINICAL CARDIAC ELECTROPHYSIOLOGY 09/15/16 Ez Badillo MD [address] [place], [place] [address] Consulting Physician INTERVENTIONAL CARDIOLOGY 12/23/19 documented as of this encounter
--- OUTSIDE RECORDS SUMMARY | 2024-01-27 07:48 | XMS_ITS | Encounter Summary ---
Author Organization [facility] Address [address] [facility]. [place], [place] [address] [place] [address] Care Team Providers Care Histology Teacher Name Role Phone Mary Barber MD Unavailable Qasim Garrett DO Primary Care Provider [phone] Tiffany Badillo MD Unavailable [phone] Reason for Visit * Reason Onset Date Comments Reschedule 05/31/2020 Encounter Details Date Type Department Care Team (Late st Contact Info) Description 05/31/2020 Telephone [facility] [address] [place] [address] Tiffany Badillo MD [address] [place] [address] Reschedule Social History Tobacco Use Types Packs/Day Years [...] Organization Meetings Never 03/27/2019 Marital Status 03/27/2019 [facility] [place] of Occupat ional Health - Occupational Stress [...] Assessment Author Status No 03/28/2019 12:00 AM OIL LEASE BROKER 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 Answer Date of Assessment Author Status No 03/28/2019 12:00 AM OIL LEASE BROKER Acti ve * Do you have serious [...] Assessment Author Status No 03/28/2019 12:00 AM OIL LEASE BROKER Jonas Garcia , RN Active documented as of this encounter Mental Status * Because of a physical, mental, or emotional condition, do you have serious difficulty concentrating, remembering, or making decisions? Answer Entry Date Author Status No 03/28/2019 12:00 AM Jonas Collins RN Active documented in this encounter Progress Notes * Cony Wolf - 06/01/2020 3:54 PM CDT Erika requests appt with echo be moved to following week. Confirmed for 09/03 2pm echo and see after. Reminder mailed. * Julisa Carr - 05/31/2020 11:21 AM CDT TELENURSE VOICE MAIL VM DATE/TIME: 05/30/2020 at 3:20 CALLER: pt PT NAME/: Sera Clive Antonymacho 1935 PH #: [phone] (home) PROVIDER/NEW PT: Dr. Badillo REASON FOR CALL: Pt called for testing results. ENCOUNTER NOTE SENT TO: Aby steen documented in this encounter Plan of Treatment Upcoming Encounters Date Type Department Care Team (Late st Contact Info) Description 02/15/2024 1:30 PM OIL LEASE BROKER Office Visit [facility] [address] [place] [address] Tyrell Leiva PA-C [address] [place] [address] 02/15/2024 1:30 PM OIL LEASE BROKER Allied Health/Nurse Visit [facility] [address] [place] [address] Mary Barber MD [address] [place] [address] 03/15/2024 11:15 AM OIL LEASE BROKER Office Visit [facility] [address] [place] [address] Jim Tamez MD [address] [place], [place] [address] 05/16/2024 1:15 AM CDT Allied Health/Nurse Visit [facility] [address] [place] [address] Mary Barber MD [address] [place] [address] 09/07/2024 9:00 AM CDT Office Visit [facility] [address] [place] [address] Tiffany Badillo MD [address] [place], [place] [address] documented as of this encounter Visit Diagnoses Not on filedocumented in this encounter Care Teams Histology Teacher Relationship Specialty Start Date End Date Qasim Garrett DO [address] [place] [address] PCP - General FAMILY PRACTICE 04/13/19 Mary Barber MD [address] [place] [address] EP Panel Cutter CLINICAL CARDIAC ELECTROPHYSIOLOGY 09/15/16 Tiffany Badillo MD [address] [place], [place] [address] Consulting Physician INTERVENTIONAL CARDIOLOGY 12/23/19 documented as of this encounter
--- OUTSIDE RECORDS SUMMARY | 2024-01-27 07:48 | XMS_ITS | Encounter Summary ---
Author Organization [facility] Address [address] [facility] [place] [address] [place] [address] Care Team Providers Care Business Consult Name Role Phone Mary Barber MD Unavailable Qasim Garrett DO Primary Care Provider [phone] Tiffany Badillo MD Unavailable [phone] Encounter Details Date Type Department Care Team (Latest Contact Info) Description 05/28/2020 8:19 AM CDT - 05/28/2020 8:22 AM CDT Hospital Encounter [facility] [address] [place] [address] Tiffany Badillo MD [address] [place] [address] Discharge Disposition: Home or Self Care [...] Organization Meetings Never 03/27/2019 Marital Status 03/27/2019 [facility] of Occupat ional Health - [...] Assessment Author Status No 03/28/2019 12:00 AM HUMAN RESOURCE INTERN 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 Answer Date of Assessment Author Status No 03/28/2019 12:00 AM HUMAN RESOURCE INTERN Acti ve * Do you have serious [...] Assessment Author Status No 03/28/2019 12:00 AM HUMAN RESOURCE INTERN Jonas Garcia RN Active documented as of this encounter Mental Status * Because of a physical, mental, or emotional condition, do you have serious difficulty concentrating, remembering, or making decisions? Answer Entry Date Author Status No 03/28/2019 12:00 AM Jnoas Collins RN Active documented in this encounter [...] st Contact Info) Description 02/15/2024 1:30 PM HUMAN RESOURCE INTERN Office Visit [facility] [address] [place] [address] Tyrell Leiva, PA-C [address] [place] [address] 02/15/2024 1:30 PM HUMAN RESOURCE INTERN Allied Health/Nurse Visit [facility] [address] [place] [address] Mary Barber MD [address] [place] [address] 03/15/2024 11:15 AM HUMAN RESOURCE INTERN Office Visit [facility] [address] [place] [address] Jim Tamez MD [address] [place] [address] 05/16/2024 1:15 AM CDT Allied Health/Nurse Visit [facility] [address] [place] [address] Mary Barber MD [address] [place] [address] 09/07/2024 9:00 AM CDT Office Visit [address] [place] [address] Tiffany Badillo MD [address] [place] [address] documented as of this encounter Procedures Procedure Name Priority Date/Time Associated Diagnosis Comments COMPREHENSIVE METABOLIC PANEL Routine 05/28/2020 8:40 AM CDT Essential hypertension documented in this encounter Results * (ABNORMAL) COMPREHENSIVE METABOLIC PANEL (05/28/2020 8:40 AM CDT) SODIUM S/P/B 145 136 - 145 MMOL/L 05/28/2020 9:24 AM CDT [facility] POTASSIUM S/P/B 3.9 3.5 - 5.1 MMOL/L 05/28/2020 9:24 AM CDT [facility] CHLORIDE S/P/B 106 98 - 107 MMOL/L 05/28/2020 9:24 AM T [facility] CO2 31.7 21.0 - 32.0 MMOL/L 05/28/2020 9:24 AM T [facility] GLUCOSE 100(H) 70 - 99 MG/DL 05/28/2020 9:24 AM T [facility] Comment: FASTING GLUCOSE 100 TO 125 MG/DL IS CONSISTENT WITH IMPAIRED FASTING GLUCOSE. FASTING GLUCOSE >125 MG/DL IS CONSISTENT WITH DIABETES. RANDOM GLUCOSE >200 MG/DL WITH HYPERGLYCEMIC SYMPTOMS IS CONSISTENT WITH DIABETES. PER ADA GUIDELINES BUN 27(H) 6 - 24 MG/DL 05/28/2020 9:24 AM T [facility] CREATININE S/P/B 0.98 0.55 - 1.02 MG/DL 05/28/2020 9:24 AM CDT [facility] CALCIUM S/P/B 8.7 8.4 - 10.5 MG/DL 05/28/2020 9:24 AM [facility] BILIRUBIN TOTAL S/P/B 0.5 0.2 - 1.0 MG/DL 05/28/2020 9:24 AM [facility] Comment: THIS ASSAY IS NOT RECOMMENDED FOR PATIENTS UNDERGOING TREATMENT WITH ELTROMBOPAG DUE TO THE POTENTIAL FOR FALSELY ELEVATED RESULTS. ALKALINE PHOSPHATASE S/P/B 83 55 - 142 U/L 05/28/2020 9:24 AM CDT [facility] AST 24 15 - 37 U/L 05/28/2020 9:24 AM T [facility] ALT 17 14 - 59 U/L 05/28/2020 9:24 AM T [facility] TOTAL PROTEIN S/P/B 7.5 6.4 - 8.2 G/DL 05/28/2020 9:24 AM T [facility] ALBUMIN S/P/B 3.1(L) 3.4 - 5.0 G/DL 05/28/2020 9:24 AM CDT [facility] ANION GAP 7.3 5.0 - 15.0 MMOL/L 05/28/2020 9:24 AM CDT [facility] OSMOLALITY (CALC) 305 MOSM/KG 021 9:24 AM CDT [facility] Comment:REFERENCE RANGE NOT ESTABLISHED EGFR NON-AFR. AMER. 53(L) >89 ML/MIN/1. 73 M2 05/28/2020 9:24 AM CDT [facility] EGFR AFR. AMER. 61(L) >89 ML/MIN/1. 73 M2 05/28/2020 9:24 AM CDT [facility] GFR NOTES GFR REFERENCE S: 05/28/2020 9:24 AM CDT [facility] Comment: THE ESTIMATED GFR IS [...] ml/min/1.73 m2 G5,KIDNEY FAILURE: <15 ml/min/1.73 m2 05/28/2020 8:40 AM CDT us Tiffany Badillo MD LABORATORY Final Result [facility] [address] [place] [address], documented in this encounter Visit Diagnoses Diagnosis Essential hypertension Unspecified essential hypertension documented in this encounter Care Teams Business Consult Relationship Specialty Start Date End Date Qasim Garrett DO [address] [place] [address] PCP - General FAMILY PRACTICE 04/13/19 Mary Barber MD [address] [place] [address] EP Plumbing Assembler Installer CLINICAL CARDIAC ELECTROPHYSIOLOGY 09/15/16 Tiffany Badillo MD [address] [place] [address] Consulting Physician INTERVENTIONAL CARDIOLOGY 12/23/19 documented as of this encounter
--- OUTSIDE RECORDS SUMMARY | 2024-01-27 07:48 | XMS_ITS | Encounter Summary ---
Author Organization [facility] Address [address] [facility] [place] [address] [place] [address] Care Team Providers Care Mannequin Wig Maker Name Role Phone Mary Barber MD Unavailable Qasim Garrett DO Primary Care Provider [phone] Tiffany Badillo MD Unavailable [phone] Encounter Details Date Type Department Care Team (Latest Contact Info) Description 05/29/2020 Travel Social History Tobacco Use Types Packs/Day [...] Organization Meetings Never 03/27/2019 Marital Status 03/27/2019 [facility] of Occupat ional Health - Occupational Stress [...] Assessment Author Status No 03/28/2019 12:00 AM ART HANDLER 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 Answer Date of Assessment Author Status No 03/28/2019 12:00 AM ART HANDLER Acti ve * Do you have serious [...] st Contact Info) Description 02/15/2024 1:30 PM ART HANDLER [facility] [address] [place] [address] Tyrell Leiva, PAHaylieC [address] [place] [address] 02/15/2024 1:30 PM ART HANDLER Allied Health/Nurse Visit [facility] [address] [place] [address] Mary Barber MD [address] [place] [address] 03/15/2024 11:15 AM ART HANDLER Office Visit [facility] [place] [address] [place] [address] Jim Tamez MD [address] [place], [place] [address] [phone] 05/16/2024 1:15 AM CDT Allied Health/Nurse Visit [facility] [address] [place] [address] Mary Barber MD [address] [place] [address] 09/07/2024 9:00 AM CDT Office Visit [facility] [place] [address] [place] [address] Tiffany Badillo MD [address] [place] [address] documented as of this encounter Visit Diagnoses Not on filedocumented in this encounter Care Teams Mannequin Wig Maker Relationship Specialty Start Date End Date Qasim Garrett DO [address] [place] [address] PCP - General FAMILY PRACTICE 04/13/19 Mary Barber MD [address] [place] [address] EP Extension Associate CLINICAL CARDIAC ELECTROPHYSIOLOGY 09/15/16 Tiffany Badillo MD [address] [place] [address] Consulting Physician INTERVENTIONAL CARDIOLOGY 12/23/19 documented as of this encounter
--- OUTSIDE RECORDS SUMMARY | 2024-01-27 07:49 | XMS_ITS | Encounter Summary ---
Author Organization [facility] Address [address] [facility] [place] [address] [place] [address] Care Team Providers Care Camera Supervisor Name Role Phone Mary Barber MD Unavailable Qasim Garrett DO Primary Care Provider [phone] Tiffany Badillo MD Unavailable Encounter Details Date Type Department Care Team (Latest Contact Info) Description 05/22/2020 Travel Social History Tobacco Use Types Packs/Day [...] Organization Meetings Never 03/27/2019 Marital Status 03/27/2019 [facility] [place] of Occupat ional Health - Occupational Stress [...] have Coronavirus / COVID-19? No / Unsure 05/22/2020 12:53 PM CDT documented as of this encounter Functional Status * RETIRED Are you deaf or do you have serious difficulty hearing Answer Date of Assessment Author Status No 03/28/2019 12:00 AM RIGGING WORKER 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 Answer Date of Assessment Author Status No 03/28/2019 12:00 AM RIGGING WORKER Acti ve * Do you have [...] st Contact Info) Description 02/15/2024 1:30 PM RIGGING WORKER [facility] [address] [place] [address] Tyrell Leiva, PAHaylieC [address] [place] [address] 02/15/2024 1:30 PM RIGGING WORKER Allied Health/Nurse Visit [facility] [address] [place] [address] Mary Barber MD [address] [place] [address] 03/15/2024 11:15 AM RIGGING WORKER Office Visit [facility] [place] [address] [place] [address] Jim Tamez MD [address] [place], [place] [address] [phone] 05/16/2024 1:15 AM CDT Allied Health/Nurse Visit [facility] [address] [place] [address] Mary Barber MD [address] [place] [address] 09/07/2024 9:00 AM CDT Office Visit [facility] [place] [address] [place] [address] Tiffany Badillo MD [address] [place] [address] documented as of this encounter Visit Diagnoses Not on filedocumented in this encounter Care Teams Camera Supervisor Relationship Specialty Start Date End Date Qasim Garrett DO [address] [place] [address] PCP - General FAMILY PRACTICE 04/13/19 Mary Barber MD [address] [place] [address] EP Chair Inspector And Leveler CLINICAL CARDIAC ELECTROPHYSIOLOGY 09/15/16 Tiffany Badillo MD [address] [place] [address] Consulting Physician INTERVENTIONAL CARDIOLOGY 12/23/19 documented as of this encounter
--- OUTSIDE RECORDS SUMMARY | 2024-01-27 07:49 | XMS_ITS | Encounter Summary ---
Author Organization [facility] Address [address] [facility]. [place], [place] [address] [place] [address] Care Team Providers Care Towel Distributor Name Role Phone Mary Barber MD Unavailable Qasim Garrett DO Primary Care Provider [phone] Ez Badillo MD Unavailable [phone] Reason for Referral * Imaging (Routine) - Closed Specialty Diagnoses / Procedures Referred By Contac t Referred To Contact RADIOLOGY Diagnoses SOB (shortness of breath) Procedures USE ECHOCARDIOGRAM Ez Badillo MD [address] [place] [address] Phone: tel: fax: Referral ID Status Reason Start Date Expiration Date Visits Re quested Visits Authorized [id number] Closed 05/16/2020 06/16/2021 1 1 Reason for Visit * Imaging (Routine) - Closed Specialty Diagnoses / Procedures Referred By Contevangelina serra Referred To Contact RADIOLOGY Diagnoses SOB (shortness of breath) Procedures USE ECHOCARDIOGRAM Ez Badillo MD [address] [place] [address] Phone: tel: fax: Referral ID Status Reason Start Date Expiration Date Visits Re quested Visits Authorized [id number] Closed 05/16/2020 06/16/2021 1 1 Encounter Details Date Type Department Care Team (Latest Contact Info) Description 05/22/2020 12:56 PM CDT - 05/22/2020 11:59 PM CDT Hospital Encounter [facility] Non Invasive Cardiology - [facility] [address] [place] [address] Ez Badillo MD [address] [place] [address] Discharge Disposition: Home or Self Care (Routine [...] Organization Meetings Never 03/27/2019 Marital Status 03/27/2019 [facility] of Occupat ional Health - Occupational Stress [...] Assessment Author Status No 03/28/2019 12:00 AM LEGAL MEDIATOR 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 Answer Date of Assessment Author Status No 03/28/2019 12:00 AM LEGAL MEDIATOR Acti ve * Do you have serious [...] st Contact Info) Description 02/15/2024 1:30 PM LEGAL MEDIATOR Office Visit [facility] [address] [place] [address] Tyrell Leiva PAHaylieC [address] [place] [address] 02/15/2024 1:30 PM LEGAL MEDIATOR Allied Health/Nurse Visit [facility] [address] [place] [address] Mary Barber MD [address] [place] [address] 03/15/2024 11:15 AM LEGAL MEDIATOR Office Visit [facility] [place] [address] Jim Tamez MD [address] [place] [address] 05/16/2024 1:15 AM CDT Allied Health/Nurse Visit [facility] [address] [place] [address] Mary Barber MD [address] [place] [address] 09/07/2024 9:00 AM CDT Office Visit [facility] [address] [place] [address] Ez Badillo MD [address] [place] [address] documented as of this encounter Procedures Procedure Name Priority Date/Time Associated Diagnosis Comments USE ECHOCARDIOGRAM Routine 05/22/2020 1: 37 PM CDT SOB (shortness of breath) documented in this encounter Results * USE ECHOCARDIOGRAM (05/22/2020 1:37 PM CDT) Anatomical Region Laterality Modality Cardiac Echocardiogram 05/22/2020 1:04 PM CDT Narrative 05/22/2020 1:56 PM CDT ?Echocardiography Report Pat.Name: ??RAKAN SHAW ?? Pat.ID: ?[id number] ? St.Date: ?? 05/22/2020 ? Refer.: ??[id number], EZ BADILLO Exam Time: 1:04:00 PM ?Study Type:ECHO W/CONTRAST COMPLETE Height: ?62.99in ? Weight: ?171.73lb ? BSA: ? 1.81 m2 ?Age: ??1935,85Y ? Sex: ? FEMALE ?BP: ?136/80 ? HR: ?70 bpm ? Sonogrphr: Jonas Moore [facility], [place] Pat. Stat.:Outpatient ?CPT - 4: ?C8929 ? Reason for Study:Dyspnea/shortness of breath Procedures: 2D, M-mode, Doppler, Color Flow, Definity was used to enhance endocardial definition., The study quality is technically difficult. Race: ?W ? ++++++++++++++++++++++++++++++++++++ SUMMARY: ++++++++++++++++++++++++++++++++++++ The [...] valve. Mild pulmonic regurgitation. Mild tricuspid regurgitation. ++++++++++++++++++++++++++++++++++++ FINDINGS: ++++++++++++++++++++++++++++++++++++ LV: ? The left ventricular size is mildly enlarged. The left ?ventricular systolic function is moderately depressed. ?Estimated left ventricular ejection fraction is 35-40%. The ?septal E/e' is indeterminate at 8-15. The lateral E/e' is ?elevated at >11. Left ventricular diastolic function is ?abnormal (grade 3 - restrictive filling). RV: ? The right ventricular size is moderately enlarged. Right ?ventricular systolic function is at the lower limit of ?normal. A pacemaker wire is visualized in the right ?ventricle. LA: ? The left atrial size is severely enlarged. The left atrial ?volume is severely increased (>48 ml/M2). RA: ? Right atrial size is severely enlarged. SHAGGY: ? No evidence of pericardial effusion. AO: ? Normal aortic root. The proximal ascending aorta measures ?3.7cm. PA: ? Unable to reliably quantitate pulmonary systolic pressure. PVn: ?The pulmonary vein doppler wave form is blunted suggestive ?of elevated left atrial pressures. SVn: ?Systemic veins not well visualized. AV: ? 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 No evidence of aortic valve stenosis. ?Mild aortic regurgitation. Moderate aortic valve sclerosis. MV: ? Mild mitral regurgitation. 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 PV: ? Structurally normal pulmonic valve. Mild pulmonic ?regurgitation. TV: ? Structurally normal tricuspid valve. Mild tricuspid ?regurgitation. ++++++++++++++++++++++++++++++++++++ MEASUREMENTS: ++++++++++++++++++++++++++++++++++++ ?DOPPLER LVOT ?? LVOTpkPG ? 1 mmHg ?LVOTmnPG ? 1 mmHg LVOTpkVel ? 55.9 cm/s (70-110)* LVOT SV ? 60 ml ?? LVOT TVI ?13.3 cm ? AV Forward Flow AV TVI ?25.9 cm ?AV pkPG ?5 mmHg AV pkVel ? 117 cm/s (100-170) Area (TVI) ?2.32 cm2 ??(3-5)* AV mnVel ?83.7 cm/s ?Area (Rufino) ?2.16 cm2 ??(3-5)* AV mnPG ?3 mmHg ? MV Forward Flow MV DeTm ?165 ms ?MV pkE ?97.7 cm/s (60-130) MV E/A ? 3.5 ? MV pkA ?27.6 cm/s PV Forward Flow PV pkVel ?86.9 cm/s (60-90) ??PV pkPG ?3 mmHg TV Regurg Flow TV pkPG ? 22 mmHg ? TV pkVel ? 236 cm/s (30-70)+* Lat E' ?? Lat e ?7.7 cm/s ? Lat E/E' ?? Lat E/e ? 12.7 ? Med E' ?? Med e ? 6.73 cm/s ? Med E/E' ?? Med E/e ? 14.5 ? AV DI ?? Value ?0.5 ? ALISE (VTI) Index ?? Value ? 1.28 ? LV Mass 2D ?? Value ?234 g ? LV Mass Index 2D ?? Value ?129 g/m2 ?2D Left Ventricle ?? LVIDd ?5 cm ?? (3.6-5.2) LV CI ? 2.17 l/min/m2 LVIDs ?3.8 cm ?? (2.3-3.9) LVPW ?? LVPWd ?1 cm ?LVPWth ?30 % ?? LVPWs ?1.3 cm ? Ventricular Septum ?? IVSd ? 1.4 cm ?IVSs ? 1.8 cm ?? Left Atrium ?? LA a-p ? 4.6 cm ?? (2.8-3.4)+* Aorta ?? Ao Asc ? 3.7 cm ?? (zsc 4.7)* LVOT ?? LVOT ? 2.4 cm ? Ratios ?? IVS LA Biplane LAVol I BP ?53.6 ml/m2 ?MMODE Left Atrium ?? LAID ? 5.7 cm ?? (1.9-4)* Ratios ?? LA/Ao ? 1.78 ?(0.87-1.1)* Aorta ?? Ao Rt ?3.2 cm ?? (2-3.7) ?? Signed 05/22/2020 01:56 PM Ez Badillo M.D. Procedure Note Ez Badillo MD - 05/22/2020 Echocardiography Report Pat.Name: RAKAN SHAW Pat.ID: [id number] .Date: 05/22/2020 Refer.: [id number], EZ BADILLO Exam Time: 1:04:00 PM Study Type:ECHO W/CONTRAST COMPLETE Height: 62.99in Weight: 171.73lb BSA: 1.81 m2 Age: 1 1935,85Y Sex: FEMALE BP: 136/80 HR: 70 bpm Sonogrphr: Jonas Moore RDCS, FASE Pat. Stat.:Outpatient CPT - 4: C8929 Reason for Study:Dyspnea/shortness of breath Procedures: 2D, M-mode, Doppler, Color Flow, Definity was used to enhance endocardial definition., The study quality is technically difficult. Race: W ++++++++++++++++++++++++++++++++++++ SUMMARY: ++++++++++++++++++++++++++++++++++++ The left [...] valve. Mild pulmonic regurgitation. Mild tricuspid regurgitation. ++++++++++++++++++++++++++++++++++++ FINDINGS: ++++++++++++++++++++++++++++++++++++ LV: The left ventricular size is mildly enlarged. The left ventricular systolic function is moderately depressed. Estimated left ventricular ejection fraction is 35-40%. The septal E/e' is indeterminate at 8-15. The lateral E/e' is elevated at >11. Left ventricular diastolic function is abnormal (grade 3 - restrictive filling). RV: The right ventricular size is moderately enlarged. Right ventricular systolic function is at the lower limit of normal. A pacemaker wire is visualized in the right ventricle. LA: The left atrial size is severely enlarged. The left atrial volume is severely increased (>48 ml/M2). RA: Right atrial size is severely enlarged. SHAGGY: No evidence of pericardial effusion. AO: Normal aortic root. The proximal ascending aorta measures 3.7cm. PA: Unable to reliably quantitate pulmonary systolic pressure. PVn: The pulmonary vein doppler wave form is blunted suggestive of elevated left atrial pressures. SVn: Systemic veins not well visualized. AV: The aortic valve is trileaflet does appear to be functionally bicuspid. No evidence of aortic valve stenosis. Mild aortic regurgitation. Moderate aortic valve sclerosis. MV: Mild mitral regurgitation. Myxomatous degeneration of mitral valve. PV: Structurally normal pulmonic valve. Mild pulmonic regurgitation. TV: Structurally normal tricuspid valve. Mild tricuspid regurgitation. ++++++++++++++++++++++++++++++++++++ MEASUREMENTS: ++++++++++++++++++++++++++++++++++++ DOPPLER LVOT LVOTpkPG 1 mmHg LVOTmnPG 1 mmHg LVOTpkVel 55.9 cm/s (70-110)* LVOT SV 60 ml LVOT TVI 13.3 cm AV Forward Flow AV TVI 25.9 cm AV pkPG 5 mmHg AV pkVel 117 cm/s (100-170) Area (TVI) 2.32 cm2 (3-5)* AV mnVel 83.7 cm/s Area (Rufino) 2.16 cm2 (3-5)* AV mnPG 3 mmHg MV Forward Flow MV DeTm 165 ms MV pkE 97.7 cm/s (60-130) MV E/A 3.5 MV pkA 27.6 cm/s PV Forward Flow PV pkVel 86.9 cm/s (60-90) PV pkPG 3 mmHg TV Regurg Flow TV pkPG 22 mmHg TV pkVel 236 cm/s (30-70)+* Lat E' Lat e 7.7 cm/s Lat E/E' Lat E/e 12.7 Med E' Med e 6.73 cm/s Med E/E' Med E/e 14.5 AV DI Value 0.5 ALISE (VTI) Index Value 1.28 LV Mass 2D Value 234 g LV Mass Index 2D Value 129 g/m2 2D Left Ventricle LVIDd 5 cm (3.6-5.2) LV CI 2.17 l/min/m2 LVIDs 3.8 cm (2.3-3.9) LVPW LVPWd 1 cm LVPWth 30 % LVPWs 1.3 cm Ventricular Septum IVSd 1.4 cm IVSs 1.8 cm Left Atrium LA a-p 4.6 cm (2.8-3.4)+* Aorta Ao Asc 3.7 cm (zsc 4.7)* LVOT LVOT 2.4 cm Ratios IVS LA Biplane LAVol I BP 53.6 ml/m2 MMODE Left Atrium LAID 5.7 cm (1.9-4)* Ratios LA/Ao 1.78 (0.87-1.1)* Aorta Ao Rt 3.2 cm (2-3.7) Signed 05/22/2020 01:56 PM Ez Badillo M.D. Ez Badillo MD ECHO Final Result documented in this encounter Visit Diagnoses Diagnosis SOB (shortness of breath) Shortness of breath documented in this encounter Administered Medications Inactive Administered Medications - up to 3 most recent administrations Medication Order MAR Action Action Date Dose Rate Site perflutren lipid microsphere (DEFINITY) injection 1 mL 1 mL, Intravenous, IMG once as needed, Contrast, 1 dose, Starting on Thu05/22/20 at 1338, Until Thu05/22/20 at 1338, Administer over 30-60 seconds. Follow with 10 mL saline flush. Given 05/22/2020 1:38 PM CDT 1 mL documented in this encounter Care Teams Towel Distributor Relationship Specialty Start Date End Date Qasim Garrett DO [address] [place] [address] PCP - General FAMILY PRACTICE 04/13/19 Mary Barber MD [address] [place] [phone] EP Hairspring I Inspector CLINICAL CARDIAC ELECTROPHYSIOLOGY 09/15/16 Ez Badillo MD [address] [place] [address] Consulting Physician INTERVENTIONAL CARDIOLOGY 12/23/19 documented as of this encounter
--- OUTSIDE RECORDS SUMMARY | 2024-01-27 07:49 | XMS_ITS | Encounter Summary ---
Author Organization [facility] Address [address] [facility] [place] [address] [place] [address] Care Team Providers Care Check Out Clerk Name Role Phone Mary Barber MD Unavailable Qasim Garrett DO Primary Care Provider [phone] Tiffany Badillo MD Unavailable [phone] Reason for Visit * Reason Onset Date Comments Appointment Request 05/15/2020 Encounter Details Date Type Department Care Team (Late st Contact Info) Description 05/15/2020 Telephone [facility] [address] [place] [address] Tiffany Badillo MD [address] [place] [address] Appointment Request Social History Tobacco Use Types Packs/Day Years [...] Meetings Never 03/27/2019 Marital Status 03/27/2019 [facility] of Occupat ional [...] Assessment Author Status No 03/28/2019 12:00 AM MAP COMPILER 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 Answer Date of Assessment Author Status No 03/28/2019 12:00 AM MAP COMPILER Acti ve * Do you have serious [...] Date Author Status No 03/28/2019 12:00 AM MAP COMPILER Jonas Garcia RN Active documented in this encounter Progress Notes * Cony Taylor Luciano - 05/17/2020 9:06 AM CDT Appt with echo confirmed for 05/22 1pm echo and see afterwards. * Yadira Chung Shaq - 05/15/2020 9:47 AM CDT Patient called requesting an appt for shortness of breath with walking, such as going to [employer], and generally not feeling well. Her daughter is pushing her to see her shirt trimmer. Patient is willing to come to [place] to be seen. Advised her I will need to check with Dr. Badillo' nurse, and we will get back to her later today. Patient may be reached at [phone], may leave voice mail. documented in this encounter Plan of Treatment Upcoming Encounters Date Type Department Care Team (Late st Contact Info) Description 02/15/2024 1:30 PM MAP COMPILER Office Visit [facility] [address] [place] [address] Tyrell Leiva PA-C [address] [place] [address] 02/15/2024 1:30 PM MAP COMPILER Allied Health/Nurse Visit [facility] [address] [place] [address] Mary Barber MD [address] [place] [address] 03/15/2024 11:15 AM MAP COMPILER Office Visit [facility] [place] [address] Jim Tamez MD [address] [place] [place], [place] [address] 05/16/2024 1:15 AM CDT [facility] [address] [place] [address] Mary Barber MD [address] [place] [address] 09/07/2024 9:00 AM CDT Office Visit [facility] [place] [address] Tiffany Badillo MD [address], [place] [address] documented as of this encounter Visit Diagnoses Not on filedocumented in this encounter Care Teams Check Out Clerk Relationship Specialty Start Date End Date Qasim Garrett DO [address] [place] [address] PCP - General FAMILY PRACTICE 04/13/19 Mary Barber MD [address] [place] [address] EP [place] CLINICAL CARDIAC ELECTROPHYSIOLOGY 09/15/16 Tiffany Badillo MD [address] [place], [place] [address] Consulting Physician INTERVENTIONAL CARDIOLOGY 12/23/19 documented as of this encounter
--- OUTSIDE RECORDS SUMMARY | 2024-01-27 07:49 | XMS_ITS | Encounter Summary ---
Author Organization [facility] Address [facility] [facility] [place] [address] [place] [address] Care Team Providers Care Concrete Pourer Name Role Phone Mary Barber MD Unavailable Qasim Garrett DO Primary Care Provider [phone] Ez Badillo MD Unavailable [phone] Reason for Referral * Imaging (Routine) - Closed Specialty Diagnoses / Procedures Referred By Contac t Referred To Contact RADIOLOGY Diagnoses SOB (shortness of breath) Procedures USE ECHOCARDIOGRAM Ez Badillo MD [address] [place] [address] Phone: tel: fax: Referral ID Status Reason Start Date Expiration Date Visits Re quested Visits Authorized [id number] Closed 05/16/2020 06/16/2021 1 1 Encounter Details Date Type Department Care Team (Late st Contact Info) Description 05/16/2020 Orders Only [facility] [address] [place] [address] Ez Badillo MD [address] [place] [address] Social History Tobacco Use Types [...] than three times a week 03/27/2019 Attends [employer] Not on file 03/27 Active Member [...] Assessment Author Status No 03/28/2019 12:00 AM CASINO SHIFT MANAGER 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 Answer Date of Assessment Author Status No 03/28/2019 12:00 AM CASINO SHIFT MANAGER Acti ve * Do you have serious difficulty walking or climbing stairs? Answer Date of Assessment Author Status Yes 03/28/2019 12:00 AM CASINO SHIFT MANAGER Jonas Garcia RN Active * Do you [...] st Contact Info) Description 02/15/2024 1:30 PM CASINO SHIFT MANAGER Office Visit [facility] [address] [place] [address] Tyrell Leiva, PA-C [address] [place] [address] 02/15/2024 1:30 PM CASINO SHIFT MANAGER Allied Health/Nurse Visit [facility] [address] [place] [address] Mayr Barber MD [address] [place] [address] 03/15/2024 11:15 AM CASINO SHIFT MANAGER Office Visit [facility] [place] [address] Jim Tamez MD [address] [place] [address] 05/16/2024 1:15 AM CDT Allied Health/Nurse Visit [facility] [address] [place] [address] Mary Barber MD [address] [place] [address] 09/07/2024 9:00 AM CDT Office Visit [facility] [address] [place] [address] Ez Badillo MD [address] [place] [address] documented as of this encounter Results * USE ECHOCARDIOGRAM (05/22/2020 1:37 PM CDT) Anatomical Region Laterality Modality Cardiac Echocardiogram 05/22/2020 1:04 PM CDT Narrative 05/22/2020 1:56 PM CDT ?Echocardiography Report Pat.Name: ??RAKAN SHAW ?? Pat.ID: ?[id number] ? St.Date: ?? 05/22/2020 ? Refer.: ??[id number] ERBERT Exam Time: 1:04:00 PM ?Study Type:ECHO W/CONTRAST COMPLETE Height: ?62.99in ? Weight: ?171.73lb ? BSA: ? 1.81 m2 ?Age: ??1935,85Y ? Sex: ? FEMALE ?BP: ?136/80 ? HR: ?70 bpm ? Sonogrphr: Jonas Moore [facility], [place] Pat. Stat.:Outpatient ?CPT - 4: ?C8929 [...] MD - 05/22/2020 Echocardiography Report Pat.Name: RAKAN SHAWN Pat.ID: [id number] .Date: 05/22/2020 Refer.: [id number], EZ BADILLO Exam Time: 1:04:00 PM Study Type:ECHO W/CONTRAST COMPLETE Height: 62.99in Weight: 171.73lb BSA: 1.81 m2 Age: 1 1935,85Y Sex: FEMALE BP: 136/80 HR: 70 bpm Sonogrphr: Jonas Moore RDCS, [place] Pat. Stat.:Outpatient CPT - 4: C8929 Reason [...] encounter Visit Diagnoses Diagnosis SOB (shortness of breath)- Primary Shortness of breath SOB (shortness of breath) Shortness of breath documented in this encounter Care Teams Concrete Pourer Relationship Specialty Start Date End Date Qasim Garrett DO [address] [place] [address] PCP - General FAMILY PRACTICE 04/13/19 Mary Barber MD [address] [place] [address] EP Network Support Technician CLINICAL CARDIAC ELECTROPHYSIOLOGY 09/15/16 Ez Badillo MD [address] [place] [address] Consulting Physician INTERVENTIONAL CARDIOLOGY 12/23/19 documented as of this encounter
--- OUTSIDE RECORDS SUMMARY | 2024-01-27 07:49 | XMS_ITS | Encounter Summary ---
Author Organization [facility] Address [address] [place] [address] [place] [address] Care Team Providers Care Auto Design Checker Name Role Phone Mary Barber MD Unavailable Qasim Rolon DO Primary Care Provider [phone] Ez Badillo MD Unavailable [phone] Erick Abdi MD Unavailable [phone] Reason for Referral * Imaging (Routine) - Closed Specialty Diagnoses / Procedures Referred By Patrizia serra Referred To Contact RADIOLOGY Diagnoses Personal history of PE (pulmonary embolism) SOB (shortness of breath) Procedures NM LUNG PERFUSION NM LUNG SCAN VENT+PERF Ez Badillo MD [address] [place] [address] Phone: tel: fax: Referral ID Status Reason Start Date Expiration Date Visits Re quested Visits Authorized [id number] Closed 05/22/2020 06/22/2021 1 1 * Imaging (Routine) - Closed Specialty Diagnoses / Procedures Referred By Patrizia serra Referred To Contact RADIOLOGY Diagnoses Personal history of PE (pulmonary embolism) Procedures USV JUANJOSE DUPLEX LOW EXT RT Ez Badillo MD [address] [place] [address] Phone: tel: fax: Referral ID Status Reason Start Date Expiration Date Visits Re quested Visits Authorized [id number] Closed 05/22/2020 06/22/2021 1 1 Reason for Visit * Reason Comments Follow Up Encounter Details Date Type Department Care Team (Late st Contact Info) Description 05/22/2020 2:00 PM CDT Office Visit [facility] [address] [place] [address] Ez Badillo MD [address] [place] [address] Follow Up Social History Tobacco Use Types [...] Organization Meetings Never 03/27/2019 Marital Status 03/27/2019 [facility] [place] of Occupat ional Health - Occupational Stress [...] Sign Reading Time Taken Comments Blood Pressure 126/78 05/22/2020 1:46 PM CDT Pulse 70 05/22/2020 1:46 PM CDT Temperature - - Respiratory Rate 20 05/22/2020 1:46 PM CDT Oxygen Saturation 98% 05/22/2020 1:46 PM CDT Inhaled Oxygen Concentration - - Weight 82.1 kg (181 lb) 05/22/2020 1:46 PM CDT Height 160 cm (5' 3 ) 05/22/2020 1:46 PM CDT Body Mass Index 32.06 05/22/2020 1:46 PM CDT documented in this encounter Functional Status * RETIRED Are you deaf or do you have serious difficulty hearing Answer Date of Assessment Author Status No 03/28/2019 12:00 AM CHURCH COMMUNICATIONS ADMINISTRATOR 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 Answer Date of Assessment Author Status No 03/28/2019 12:00 AM CHURCH COMMUNICATIONS ADMINISTRATOR Acti ve * Do you have serious [...] in this encounter Progress Notes * Ez Badillo MD - 05/22/2020 2:00 PM CDT Chief Complaint: Follow Up HISTORY: Sera Shaffer is a 85-year-old female with past medical history of hypertension, hypercholesterolemia, atrial fibrillation post ablation and Lariat procedure, hemorrhagic stroke and hypothyroidism here for follow-up. Her major complaint is increasing shortness of breath with activity, even walking to the mailbox will make her feel short of breath. She is tired all the time. She has describes some intermittent left arm pain which is completely unrelated to her level of activity. There is no history of paroxysmal nocturnal dyspnea or orthopnea; she is sleeps with 2 pillows primarily to relieve the pain in her lower back. There is no history of swelling or any recent neurologic event. Re sults of the echocardiogram obtained today were reviewed with the patient including primarily a subtle drop in her ejection fraction. No recent bleeding complications related to the use of anticoagulation. RECOMMENDATIONS AND PLAN: Continue current medications. We will discontinue Dyazide We will start furosemide 20 mg a day and Aldactone 12.5 mg a day. Patient will be started on Entresto 24/26 mg twice a day, the dose of this medication will be titrated based on her response. CMP in 7 to 10 days Because of her history of a previous saddle embolism and the presence of increasing shortness of breath, patient will be scheduled to undergo a VQ scan A venous duplex ultrasound will also be obtained. If the VQ scan and the venous ultrasound are negative/normal the possibility of discontinuing Eliquis or reducing the dose to long-term maintenance dose will be considered. Patient underwent replacement of the LARIAT device in the past to prevent her from having anticoagulation because of her history of a previous cerebral bleed. Advised to start a regular walking exercise program. Follow up in 3 months or sooner if any problems arise. [...] Start Date End Date Taking? Authorizing Provider aspirin 81 MG tablet Take by mouth daily. 04/29/06 Yes Doc Abstract ELIQUIS 5 MG tablet TAKE 1 TABLET BY MOUTH TWICE A DAY 03/28/20 Yes Ez Badillo MD furosemide 20 MG tablet Take 1 tablet (20 mg total) by mouth daily. 05/22/20 Yes Ez Badillo MD levothyroxine 100 MCG tablet Take 100 mcg by mouth daily. 11/07/19 Yes Doc Abstract metoprolol succinate ER 50 MG 24 hr tablet Take 1 tablet (50 mg total) by mouth daily. 02/23/20 Yes Ez Badillo MD Multiple Vitamins-Minerals (CENTRUM ADULTS OR) Take 1 tablet by mouth daily. Yes Doc Abstract pantoprazole EC 40 MG tablet Take 1 tablet by mouth daily. 12/13/19 Yes Doc Abstract rosuvastatin 40 MG tablet Take 1 tablet (40 mg total) by mouth nightly at bedtime. 09/23/19 Yes Ez Badillo MD sacubitril-valsartan (ENTRESTO) 24-26 MG tablet Take 1 tablet by mouth 2 (two) times daily. 05/22/20Yes Ez Badillo MD spironolactone 25 MG tablet Take 0.5 tablets (12.5 mg total) by mouth daily. 05/22/20 Yes Ez Badillo MD SOCIAL HISTORY: Social History Tobacco Use ??? Smoking status: Former Smoker Types: Cigarettes Quit date: 1972 Years since quittin.3 ??? Smokeless tobacco: Never Used Substance Use Topics ??? Alcohol use: No ??? Drug use: No FAMILY HISTORY: Family History Problem Relation Name Age of Onset ??? DC Mother ??? DC Father ??? CABG Brother ??? Stent Brother ??? Stroke Paternal Grandfather ??? Heart Disease Other premature coronary heart disease REVIEW OF ORGANS AND SYSTEMS: Review of Systems Constitutional: Positive for fatigue. Negative for recent unintentional weight gain and [...] significant memory loss. PHYSICAL EXAM: Filed Vitals: 05/22/20 1346 BP: 126/78 Pulse: 70 Resp: 20 SpO2: 98% Weight: 82.1 kg (181 lb) Height: 5' 3 (1.6 m) Body mass index is 32.06 kg/m??. Physical Exam Constitutional: No distress. HENT: [...] Musculoskeletal: No kyphosis. Normal ROM. Cardiovascular: Rate: Normal rate. Irregularly irregular rhythm. PMI: PMI not displaced Pulses: Right Carotid [...] DATA: Lab Results Component Value Date NA 137 03/31/2019 K 3.6 03/31/2019 CL 106 03/31/2019 CO2 23.1 03/31/2019 AGAP 7.9 03/31/2019 BUN 16 03/31/2019 CR 0.94 03/31/2019 GFRNON 56 (L) 03/31/2019 GFR 65 (L) 03/31/2019 GLU 113 (H) 03/31/2019 CA 8.9 03/31/2019 Lab Results Component Value Date WBC 5.7 04/02/2019 HGB 10.3 (L) 04/02/2019 PLT 222 04/02/2019 Lab Results Component Value Date CHOL 120 02/07/2014 TRI 54 02/07/2014 HDL 51 02/07/2014 LDL 58 02/07/2014 TP 6.7 03/30/2019 ALB 2.5 (L) 03/30/2019 ALT 15 03/30/2019 TSH 1.66 10/13/2014 Duplex venous ultrasound March [...] Mild pulmonic regurgitation. Mild tricuspid regurgitation. ?? DIAGNOSIS: 1. Personal history of PE (pulmonary embolism) USV JUANJOSE DUPLEX LOW EXT RT XR CHEST PA+LAT NM LUNG PERFUSION CANCELED: NM LUNG SCAN VENT+PERF 2. Essential hypertension COMPREHENSIVE METABOLIC PANEL 3. Hypercholesterolemia 4. Paroxysmal atrial fibrillation (CMS/HCC) 5. Biventricular ICD (implantable cardioverter-defibrillator) in place 6. History of hemorrhagic stroke with residual hemiparesis (CMS/HCC) 7. SOB (shortness of breath) XR CHEST PA+LAT NM LUNG PERFUSION CANCELED: NM LUNG SCAN VENT+PERF PINNACLE Documentation Completed: Atrial Fibrillation Ez Badillo MD, [facility] 112:20 PM Referring Provider: Qasim Rolon DO PCP: QASIM ROLON DO documented in this encounter Plan of Treatment Upcoming Encounters Date Type Department Care Team (Late st Contact Info) Description 02/15/2024 1:30 PM CHURCH COMMUNICATIONS ADMINISTRATOR Office Visit [facility] ld [address] [place] [address] [phone] Tyrell Leiva, PA-C [address] [place] [address] 02/15/2024 1:30 PM CHURCH COMMUNICATIONS ADMINISTRATOR Allied Health/Nurse Visit [facility] [address] [place] [address] [phone] Mary Barber MD [address] [place] [address] 03/15/2024 11:15 AM CHURCH COMMUNICATIONS ADMINISTRATOR Office Visit [facility] [place] [address] Jim Tamez MD [address] [place] [address] 05/16/2024 1:15 AM CDT Allied Health/Nurse Visit [facility] [address] [place] [phone] Mary Barber MD [address] [place] [address] 09/07/2024 9:00 AM CDT Office Visit [facility] [address] [place] [phone] Ez Badillo MD [address] [place] [address] documented as of this encounter Results * NM LUNG PERFUSION [...] By: Broderick Andrea MD, 05/29/2020 1:34 PM us Ez Badillo MD US VASC Final Result * XR CHEST PA+LAT (05/28/2020 8:52 AM [...] By: Clive [place] MD, 05/28/2020 8:51 AM us Ez Badillo MD GENERAL IMAGING Final Result * (ABNORMAL) COMPREHENSIVE METABOLIC PANEL (05/28/2020 8:40 AM CDT) SODIUM S/P/B 145 136 - 145 MMOL/L 05/28/2020 9:24 AM CDT [facility] POTASSIUM S/P/B 3.9 3.5 - 5.1 MMOL/L 05/28/2020 9:24 AM CDT [facility] CHLORIDE S/P/B 106 98 - 107 MMOL/L 05/28/2020 9:24 AM CDT [facility] CO2 31.7 21.0 - 32.0 MMOL/L 05/28/2020 9:24 AM CDT [facility] GLUCOSE 100(H) 70 - 99 MG/DL 05/28/2020 9:24 AM CDT [facility] Comment: FASTING GLUCOSE 100 TO 125 MG/DL IS CONSISTENT WITH IMPAIRED FASTING GLUCOSE. FASTING GLUCOSE >125 MG/DL IS CONSISTENT WITH DIABETES. RANDOM GLUCOSE >200 MG/DL WITH HYPERGLYCEMIC SYMPTOMS IS CONSISTENT WITH DIABETES. PER ADA GUIDELINES BUN 27(H) 6 - 24 MG/DL 05/28/2020 9:24 AM CDT [facility] CREATININE S/P/B 0.98 0.55 - 1.02 MG/DL 05/28/2020 9:24 AM CDT [facility] CALCIUM S/P/B 8.7 8.4 - 10.5 MG/DL 05/28/2020 9:24 AM CDT [facility] BILIRUBIN TOTAL S/P/B 0.5 0.2 - 1.0 MG/DL 05/28/2020 9:24 AM CDT [facility] Comment: THIS ASSAY IS NOT RECOMMENDED FOR PATIENTS UNDERGOING TREATMENT WITH ELTROMBOPAG DUE TO THE POTENTIAL FOR FALSELY ELEVATED RESULTS. ALKALINE PHOSPHATASE S/P/B 83 55 - 142 U/L 05/28/2020 9:24 AM CDT [facility] AST 24 15 - 37 U/L 05/28/2020 9:24 AM CDT [facility] ALT 17 14 - 59 U/L 05/28/2020 9:24 AM CDT [facility] TOTAL PROTEIN S/P/B 7.5 6.4 - 8.2 G/DL 05/28/2020 9:24 AM CDT [facility] ALBUMIN S/P/B 3.1(L) 3.4 - 5.0 G/DL 05/28/2020 9:24 AM CDT [facility] ANION GAP 7.3 5.0 - 15.0 MMOL/L 05/28/2020 9:24 AM CDT [facility] OSMOLALITY (CALC) 305 MOSM/KG 021 9:24 AM CDT [facility] Comment:REFERENCE RANGE NOT ESTABLISHED EGFR NON-AFR. AMER. 53(L) >89 ML/MIN/1. 73 M2 05/28/2020 9:24 AM CDT [facility] EGFR AFR. AMER. 61(L) >89 ML/MIN/1. 73 M2 05/28/2020 9:24 AM CDT [facility] GFR NOTES GFR REFERENCE S: 05/28/2020 9:24 AM CDT [facility] Comment: THE ESTIMATED GFR IS [...] <15 ml/min/1.73 m2 05/28/2020 8:40 AM CDT Ez Badillo MD LABORATORY Final Result [facility] [address] [place] [address], documented in this encounter Visit Diagnoses Diagnosis Personal history of PE (pulmonary embolism)- Primary Personal history of pulmonary embolism Essential hypertension Unspecified essential hypertension Hypercholesterolemia Pure hypercholesterolemia Paroxysmal atrial fibrillation ([facility]/HCC) Atrial fibrillation 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 ([facility] HHS/HCC) Transient ischemic attack (TIA), and cerebral infarction without residual deficits SOB (shortness of breath) Shortness of breath Personal history of PE (pulmonary embolism) Personal history of pulmonary embolism SOB (shortness of breath) Shortness of breath Personal history of PE (pulmonary embolism) Personal history of pulmonary embolism SOB (shortness of breath) Shortness of breath documented in this encounter Care Teams Auto Design Checker Relationship Specialty Start Date End Date Qasim Rolon DO [address] [place] [address] PCP - General FAMILY PRACTICE 04/13/19 Mary Barber MD [address] [place] [phone] EP Industrial Locomotive Operator CLINICAL CARDIAC ELECTROPHYSIOLOGY 09/15/16 Ez Badillo MD [address] [place] [phone] Consulting Physician INTERVENTIONAL CARDIOLOGY 12/23/19 Erick Abdi MD [address] [place] [phone] Consulting Physician PAIN MANAGEMENT 09/06/20 documented as of this encounter
--- OUTSIDE RECORDS SUMMARY | 2024-01-27 07:50 | XMS_ITS | Encounter Summary ---
Author Organization [facility] Address [address] [place] [address] [place] [address] Care Team Providers Care Mortgage Broker Name Role Phone Mary Barber MD Unavailable Qasim Garrett DO Primary Care Provider [phone] Tiffany Badillo MD Unavailable [phone] Encounter Details Date Type Department Care Team (Late st Contact Info) Description 02/23/2020 Orders Only [facility] [address] [place] [address] Cony Wolf RN Social History Tobacco Use Types Packs/Day [...] Organization Meetings Never 03/27/2019 Marital Status 03/27/2019 [place] of Occupat ional Health - Occupational Stress [...] Assessment Author Status No 03/28/2019 12:00 AM URBAN REDEVELOPMENT SPECIALIST 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 Answer Date of Assessment Author Status No 03/28/2019 12:00 AM URBAN REDEVELOPMENT SPECIALIST Acti ve * Do you have [...] st Contact Info) Description 02/15/2024 1:30 PM URBAN REDEVELOPMENT SPECIALIST Office Visit [facility] ld [address] [place] [phone] Tyrell Leiva PA-C [address] [place] [address] 02/15/2024 1:30 PM URBAN REDEVELOPMENT SPECIALIST Allied Health/Nurse Visit [facility] ld [address] [place] [phone] Mary Barber MD [address] [place] [address] 03/15/2024 11:15 AM URBAN REDEVELOPMENT SPECIALIST Office Visit [facility] [address] [place] [address] Jim Tamez MD [address] [place], [place] [address] 05/16/2024 1:15 AM CDT Allied Health/Nurse Visit [facility] ld [address] [place] [address] Mary Barber MD [address] [place] [phone] 09/07/2024 9:00 AM CDT Office Visit [facility] [address] [place] [address] Tiffany Badillo MD [address] [place], [place] [address] documented as of this encounter Visit Diagnoses Not on filedocumented in this encounter Care Teams Mortgage Broker Relationship Specialty Start Date End Date Qasim Garrett DO [address] [place] [address] PCP - General FAMILY PRACTICE 04/13/19 Mary Barber MD [address] [place] [phone] EP Environmental Science Technician CLINICAL CARDIAC ELECTROPHYSIOLOGY 09/15/16 Tiffany Badillo MD [address] [place] [address] Consulting Physician INTERVENTIONAL CARDIOLOGY 12/23/19 documented as of this encounter
--- OUTSIDE RECORDS SUMMARY | 2024-01-27 07:50 | XMS_ITS | Encounter Summary ---
Author Organization [facility] Address [address] [place] [address] [place] [address] Care Team Providers Care Roadside Mechanic Name Role Phone Mary Barber MD Unavailable Qasim Garrett DO Primary Care Provider [phone] Tiffany Badillo MD Unavailable [phone] Encounter Details Date Type Department Care Team (Late st Contact Info) Description 03/19/2020 11:15 AM SET UP OPERATOR TOOL Allied Health/Nurse Visit [facility] [address] [place] [address] Mary Barber MD [address] [place] [address] Social History Tobacco Use Types [...] Organization Meetings Never 03/27/2019 Marital Status 03/27/2019 [facility] of Occupat ional Health - Occupational Stress [...] Assessment Author Status No 03/28/2019 12:00 AM SET UP OPERATOR TOOL 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 Answer Date of Assessment Author Status No 03/28/2019 12:00 AM SET UP OPERATOR TOOL Acti ve * Do you have serious [...] Date Author Status No 03/28/2019 12:00 AM SET UP OPERATOR TOOL Jonas Garcia RN Active documented in this encounter Progress Notes * Dianna Marshall RN - 03/19/2020 11:15 AM CST Images from the original note were not included. ICD REMOTE INTERROGATION NAME: Sera Shaffer : 1935 CSN: [id number] DATE OF INTERROGATION: 03/19/2020 FOLLOW UP E.P PHYSICIAN: Dr Mary Barber DEVICE SPECIFICATIONS DEVICE HEALTH/SAFETY JOB TITLES Proximiant DEVICE TYPE BIV ICD EST. BATTERY LIFE OR CURRENT VOLTAGE/ROSALIND VOLTAGE 2.5 y LEAD IMPEDENCE TRENDS OK ATRIAL PACING % 15% RV PACING % 91% BIV/LVP PACING % 96% COMMENTS ATRIAL ARRHYTHMIAS AF BURDEN 40.5 days LONGEST EPISODE > 48 hrs ORAL ANTICOAGULATION Eliquis/Apixaban and ASA COMMENTS VENTRICULAR ARRHYTHMIAS NSVT EPISODE(S) 31 VT EPISODE(S) 0 FVT EPISODE(S) 0 VF EPISODE(S) 0 COMMENTS ALERTS / NURSE COMMENTS ??? SEE ATTACHED PDF FOR VENDOR PRINTOUTS (PRESENTING, HISTOGRAMS, EGM???S) ??? Normal device function PHYSICIAN COMMENTS (IF ANY) ??? Cosigned by Mary Barber MD at 03/28/2020 11:18 AM SET UP OPERATOR TOOL UP OPERATOR TOOL UP OPERATOR TOOL documented in this encounter Plan of Treatment Upcoming Encounters Date Type Department Care Team (Late st Contact Info) Description 02/15/2024 1:30 PM SET UP OPERATOR TOOL [facility] [address] [place] [phone] Tyrell Leiva, PAHaylieC [address] [place] [address] 02/15/2024 1:30 PM SET UP OPERATOR TOOL [facility] [address] [place] [phone] Mary Barber MD [address] [place] [address] 03/15/2024 11:15 AM SET UP OPERATOR TOOL Office Visit [facility] [address] [place] [address] Jim Tamez MD [address] [place] [address] 05/16/2024 1:15 AM CDT Allied Health/Nurse Visit [facility] [address] [place] [address] Mary Barber MD [address] [place] [address] 09/07/2024 9:00 AM CDT Office Visit [facility] [address] [place] [phone] Tiffany Badillo MD [address] [place] [address] documented as of this encounter Visit Diagnoses Not on filedocumented in this encounter Care Teams Roadside Mechanic Relationship Specialty Start Date End Date Qasim Garrett DO [address] [place] [address] PCP - General FAMILY PRACTICE 04/13/19 Mary Barber MD [address] [place] [phone] EP Life Enrichment Specialist CLINICAL CARDIAC ELECTROPHYSIOLOGY 09/15/16 Tiffany Badillo MD [address] [place] [address] Consulting Physician INTERVENTIONAL CARDIOLOGY 12/23/19 documented as of this encounter
--- OUTSIDE RECORDS SUMMARY | 2024-01-27 07:50 | XMS_ITS | Encounter Summary ---
Author Organization [facility] Address [address] [place] [address] [place] [address] Care Team Providers Care Lamination Assembler Name Role Phone Mary Barber MD Unavailable Qasim Garrett DO Primary Care Provider [phone] Tiffany Badillo MD Unavailable [phone] Encounter Details Date Type Department Care Team (Late st Contact Info) Description 02/23/2020 Orders Only [facility] [address] [place] [address] Cony Wolf RN Social History [...] than three times a week 03/27/2019 Attends Hoahaoism Services Not on file 03/27 Active Member of Clubs or Organizations Not on f ile 03/27/2019 Attends Club or Organization Meetings Never 03/27/2019 Marital Status 03/27/2019 [place] of Occupat ional Health - Occupational [...] Assessment Author Status No 03/28/2019 12:00 AM CHANNEL ROUGHER 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 Answer Date of Assessment Author Status No 03/28/2019 12:00 AM CHANNEL ROUGHER Acti ve * Do you have serious [...] st Contact Info) Description 02/15/2024 1:30 PM CHANNEL ROUGHER Office Visit [facility] ld [address] [place] [phone] Tyrell Leiva PA-C [address] [place] [address] 02/15/2024 1:30 PM CHANNEL ROUGHER Allied Health/Nurse Visit [facility] ld [address] [place] [phone] Mary Barber MD [address] [place] [address] 03/15/2024 11:15 AM CHANNEL ROUGHER Office Visit [facility] [address] [place] [address] Jim Tamez MD [address] [place], [place] [address] 05/16/2024 1:15 AM CDT Allied Health/Nurse Visit [facility] ld [address] [place] [address] Mary Barber MD [address] [place] [phone] 09/07/2024 9:00 AM CDT Office Visit [facility] [address] [place] [phone] Tiffany Badillo MD [address] [place], [place] [address] documented as of this encounter Visit Diagnoses Not on filedocumented in this encounter Care Teams Lamination Assembler Relationship Specialty Start Date End Date Qasim Garrett DO [address] [place] [address] PCP - General FAMILY PRACTICE 04/13/19 Mary Barber MD [address] [place] [phone] EP Fitness Trainer CLINICAL CARDIAC ELECTROPHYSIOLOGY 09/15/16 Tiffany Badillo MD [address] [place] [address] Consulting Physician INTERVENTIONAL CARDIOLOGY 12/23/19 documented as of this encounter
--- OUTSIDE RECORDS SUMMARY | 2024-01-27 07:50 | XMS_ITS | Encounter Summary ---
Author Organization [facility] Address [address] [facility]. [place], [place] [address] [place] [address] Care Team Providers Care Poleyard Supervisor Name Role Phone Mary Barber MD Unavailable Qasim Garrett DO Primary Care Provider [phone] Tiffany Badillo MD Unavailable [phone] Reason for Visit * Reason Onset Date Comments Refill Request 02/23/2020 Encounter Details Date Type Department Care Team (Late st Contact Info) Description 02/23/2020 Telephone [facility] [address] [place] [address] Tiffany Badillo MD [address] [place] [address] Refill Request Social History Tobacco Use Types Packs/Day [...] than three times a week 03/27/2019 Attends Jew Services Not on file 03/27 Active Member of Clubs or Organizations Not on f ile 03/27/2019 Attends Club or Organization Meetings Never 03/27/2019 Marital Status 03/27/2019 [facility] of Occupat ional Health - Occupational [...] Assessment Author Status No 03/28/2019 12:00 AM DAYCARE MANAGER 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 Answer Date of Assessment Author Status No 03/28/2019 12:00 AM DAYCARE MANAGER Acti ve * Do you have [...] Date Author Status No 03/28/2019 12:00 AM DAYCARE MANAGER Jonas Garcia RN Active documented in this encounter Progress Notes * Mercedes Fonseca RN - 02/23/2020 11:52 AM CST Called pharmacy to discuss metoprolol dose. Pharmacy states they already spoke with nurse Cony and have no further questions. No action needed. ARE MANAGER * Kelly Coker - 02/23/2020 11:10 AM CST TELE-NURSE VOICEMAIL 02/22/20 at 11:41 [facility] pharmacy called re: patient's Metoprolol script. It has 2 sets of directions and they need to know which one they should use. [phone] ARE MANAGER documented in this encounter Plan of Treatment Upcoming Encounters Date Type Department Care Team (Late st Contact Info) Description 02/15/2024 1:30 PM DAYCARE MANAGER Office Visit [facility] [address] [place] [address] Tyrell Leiva, PA-C [address] [place] [address] 02/15/2024 1:30 PM DAYCARE MANAGER Allied Health/Nurse Visit [facility] [address] [place] [address] Mary Barber MD [address] [place] [address] 03/15/2024 11:15 AM DAYCARE MANAGER Office Visit [facility] [place] [address] Jim Tamez MD [address] [place], [place] [address] 05/16/2024 1:15 AM CDT [facility] [address] [place] [address] Mary Barber MD [address] [place] [address] 09/07/2024 9:00 AM CDT Office Visit [facility] [place] [address] Tiffany Badillo MD [address] [place], [place] [phone] documented as of this encounter Visit Diagnoses Not on filedocumented in this encounter Care Teams Poleyard Supervisor Relationship Specialty Start Date End Date Qasim Garrett DO [address] [place] [address] PCP - General FAMILY PRACTICE 04/13/19 Mary Barber MD [address] [place] [address] EP Brim Molder CLINICAL CARDIAC ELECTROPHYSIOLOGY 09/15/16 Tiffany Badillo MD [address] [place], [place] [address] Consulting Physician INTERVENTIONAL CARDIOLOGY 12/23/19 documented as of this encounter
--- OUTSIDE RECORDS SUMMARY | 2024-01-27 07:51 | XMS_ITS | Encounter Summary ---
Author Organization [facility] Address [facility]. [place], [place] [address] [place] [address] Care Team Providers Care Squeegeer And Former Name Role Phone Mary Barber MD Unavailable Josey Schwartz AGACNP- Unavailable [phone] Qasim Garrett DO Primary Care Provider [phone] Reason for Visit * Reason Onset Date Comments Refill Request 09/23/2019 Encounter Details Date Type Department Care Team (Late st Contact Info) Description 09/23/2019 Telephone [facility] [address] [place] [address] Tiffany Badillo MD [address] [place] [address] Refill Request Social History Tobacco [...] Organization Meetings Never 03/27/2019 Marital Status 03/27/2019 [facility] of Occupat ional Health - Occupational Stress [...] Assessment Author Status No 03/28/2019 12:00 AM WIRER PASSENGER CAR 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 Answer Date of Assessment Author Status No 03/28/2019 12:00 AM WIRER PASSENGER CAR Acti ve * Do you have serious [...] Date Author Status No 03/28/2019 12:00 AM WIRER PASSENGER CAR Jonas Garcia RN Active documented in this encounter Progress Notes * Nina Harmon LPN - 09/23/2019 3:38 PM CDT Refill Rosuvastatin Ordered under new provider. Was Dr. Brian. documented in this encounter Plan of Treatment Upcoming Encounters Date Type Department Care Team (Late st Contact Info) Description 02/15/2024 1:30 PM WIRER PASSENGER CAR Office Visit [facility] [address] [place] [address] Tyrell Leiva, PA-C [address] [place] [address] 02/15/2024 1:30 PM WIRER PASSENGER CAR Allied Health/Nurse Visit [facility] ld [address] [place] [address] Mary Barber MD [address] [place] [address] 03/15/2024 11:15 AM WIRER PASSENGER CAR Office Visit [facility] [place] [address] Jim Tamez MD [address] [place] [address] 05/16/2024 1:15 AM CDT Allied Health/Nurse Visit [facility] [address] [place] [address] Mary Barber MD [address] [place] [address] 09/07/2024 9:00 AM CDT Office Visit [facility] [place] [address] Tiffany Badillo MD [address] [place] [address] documented as of this encounter Visit Diagnoses Not on filedocumented in this encounter Care Teams Squeegeer And Former Relationship Specialty Start Date End Date Qasim Garrett DO [address] [place] [address] PCP - General FAMILY PRACTICE 04/13/19 Mary Barber MD [address] [place] [address] EP Acid Condenser CLINICAL CARDIAC ELECTROPHYSIOLOGY 09/15/16 Josey Schwartz [facility] [address] [employer] [address] [place] [id number] Nurse Practitioner Electrophysiology 09/18/16 12/22/19 documented as of this encounter
--- OUTSIDE RECORDS SUMMARY | 2024-01-27 07:51 | XMS_ITS | Encounter Summary ---
Author Organization [facility] Address [address] [facility]. [place], [place] [address] [place] [address] Care Team Providers Care Quality Assurance Test Program Manager Name Role Phone Mary Barber MD Unavailable Qasim Garrett DO Primary Care Provider [phone] Tiffany Badillo MD Unavailable [phone] Reason for Visit * Reason Onset Date Comments Refill Request 02/22/2020 metoprolol Encounter Details Date Type Department Care Team (Late st Contact Info) Description 02/22/2020 Telephone [facility] [address] [place] [address] Tiffany Badillo MD [address] [place] [address] Refill Request (metoprolol) Social History Tobacco Use Types Packs/Day Years [...] Assessment Author Status No 03/28/2019 12:00 AM MASK INSPECTOR 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 Answer Date of Assessment Author Status No 03/28/2019 12:00 AM MASK INSPECTOR Acti ve * Do you have serious [...] Date Author Status No 03/28/2019 12:00 AM MASK INSPECTOR Jonas Garcia RN Active documented in this encounter Progress Notes * Juany Kincaid RN - 02/22/2020 3:53 PM CST I called pt to make her aware refills had been sent per Cony Wolf RN INSPECTOR * Misty Esquivel - 02/22/2020 1:25 PM CST VM DATE/TIME:02/21/20 at 1:33 pm CALLER: pt PT NAME/:pt #: [phone] PROVIDER/NEW PT: Aby REASON FOR CALL: VM Left: Patient was told by pharmacy that her metoprolol was discontinued by Dr. Badillo in Dec 2019. She is upset and would like a phone call back but more importantly, she needs metoprolol script sent to [facility] in [place]. ENCOUNTER NOTE SENT TO: [facility] INSPECTOR documented in this encounter Plan of Treatment Upcoming Encounters Date Type Department Care Team (Late st Contact Info) Description 02/15/2024 1:30 PM MASK INSPECTOR [facility] [address] [place] [address] [phone] Tyrell Leiva PA-C [address] [place] [address] 02/15/2024 1:30 PM MASK INSPECTOR Allied Health/Nurse Visit [facility] [address] [place] [address] Mary Barber MD [address] [place] [address] 03/15/2024 11:15 AM MASK INSPECTOR Office Visit [facility] [address] [place] [address] Jim Tamez MD [address] [place], [place] [address] 05/16/2024 1:15 AM CDT Allied Health/Nurse Visit [facility] [address] [place] [address] Mary Barber MD [address] [place] [address] 09/07/2024 9:00 AM CDT Office Visit [facility] [address] [place] [address] Tiffany Badillo MD [address] [place], [place] [address] documented as of this encounter Visit Diagnoses Not on filedocumented in this encounter Care Teams Quality Assurance Test Program Manager Relationship Specialty Start Date End Date Qasim Garrett DO [address] [place] [address] PCP - General FAMILY PRACTICE 04/13/19 Mary Barbre MD [address] [place] [address] EP Animal Control Officer CLINICAL CARDIAC ELECTROPHYSIOLOGY 09/15/16 Tiffany Badillo MD [address] [place], [place] [address] Consulting Physician INTERVENTIONAL CARDIOLOGY 12/23/19 documented as of this encounter
--- OUTSIDE RECORDS SUMMARY | 2024-01-27 07:51 | XMS_ITS | Encounter Summary ---
Author Organization [facility] Address [address] [facility] [place] [address] [place] [address] Care Team Providers Care Clinical Cytogeneticist Name Role Phone Mary Barber MD Unavailable [facility] Unavailable [phone] Qasim Garrett DO Primary Care Provider [phone] Encounter Details Date Type Department Care Team (Late st Contact Info) Description 11/28/2019 9:30 AM CDT [facility] [address] [place] [address] Mary Barber MD [address] [place] [address] Social History Tobacco Use Types [...] 03/27/2019 Marital Status 03/27/2019 [facility] of Occupat ional Health - Occupational [...] Assessment Author Status No 03/28/2019 12:00 AM RECORDS ASSOCIATE 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 Answer Date of Assessment Author Status No 03/28/2019 12:00 AM RECORDS ASSOCIATE Acti ve * Do you have serious [...] Date Author Status No 03/28/2019 12:00 AM RECORDS ASSOCIATE Jonas Garcia RN Active documented in this encounter Progress Notes * Dianna Marshall RN - 11/28/2019 9:30 AM CDT Images from the original note were not included. ICD REMOTE INTERROGATION NAME: Sera Shaffer : 1935 CSN: [id number] DATE OF INTERROGATION: 11/21/19 FOLLOW UP E.P PHYSICIAN: Dr Mary Barber DEVICE SPECIFICATIONS DEVICE FOOD SAFETY FIELD SPECIALIST Nevigo SCIENTIFIC DEVICE TYPE BIV ICD EST. BATTERY LIFE OR CURRENT VOLTAGE/ROSALIND VOLTAGE 3.5 y LEAD IMPEDENCE TRENDS OK ATRIAL PACING % 17% RV PACING % 93% BIV/LVP PACING % 96% COMMENTS ATRIAL ARRHYTHMIAS AF BURDEN 34.2 days LONGEST EPISODE > 48 hrs ORAL ANTICOAGULATION Eliquis/Apixaban and ASA COMMENTS VENTRICULAR ARRHYTHMIAS NSVT EPISODE(S) 19 VT EPISODE(S) 0 FVT EPISODE(S) 0 VF EPISODE(S) 0 COMMENTS ALERTS / NURSE COMMENTS ??? SEE ATTACHED PDF FOR VENDOR PRINTOUTS (PRESENTING, HISTOGRAMS, EGM???S) ??? Normal device function PHYSICIAN COMMENTS (IF ANY) ??? Cosigned by Mary Barber MD at 11/30/2019 4:11 PM CDT documented in this encounter Plan of Treatment Upcoming Encounters Date Type Department Care Team (Late st Contact Info) Description 02/15/2024 1:30 PM RECORDS ASSOCIATE [facility] [address] [place] [address] Tyrell Leiva PA-C [address] [place] [address] 02/15/2024 1:30 PM RECORDS ASSOCIATE Allied Health/Nurse Visit [facility] [address] [place] [address] aMry Barber MD [address] [place] [address] 03/15/2024 11:15 AM RECORDS ASSOCIATE Office Visit [facility] [address] [facility] [place] [address] Jim Tamez MD [address] [place], [place] [address] 05/16/2024 1:15 AM CDT Allied Health/Nurse Visit [facility] [address] [place] [address] Mary Barber MD [address] [place] [address] 09/07/2024 9:00 AM CDT Office Visit [facility] [address] [facility] [place] [address] Tiffany Badillo MD [address] [place], [place] [address] documented as of this encounter Visit Diagnoses Not on filedocumented in this encounter Care Teams Clinical Cytogeneticist Relationship Specialty Start Date End Date Qasim Garrett DO [address] [place] [address] PCP - General FAMILY PRACTICE 04/13/19 Mary Barber MD [address] [place] [address] EP Hemp Fiber Taker Off CLINICAL CARDIAC ELECTROPHYSIOLOGY 09/15/16 Josey Schwartz AGACNP- [address] [place] [address] [place] [id number] Nurse Practitioner Electrophysiology 09/18/16 12/22/19 documented as of this encounter
--- OUTSIDE RECORDS SUMMARY | 2024-01-27 07:51 | XMS_ITS | Encounter Summary ---
Author Organization [facility] Address [address] [place] [address] [place] [address] Care Team Providers Care Food Taster Name Role Phone Mary Barber MD Unavailable Qasim Garrett DO Primary Care Provider [phone] Tiffany Badillo MD Unavailable [phone] Encounter Details Date Type Department Care Team (Late st Contact Info) Description 02/21/2020 Orders Only [facility] [address] [place] [address] Cony Wolf RN Social History [...] Organization Meetings Never 03/27/2019 Marital Status 03/27/2019 [facility] of Occupat ional Health - Occupational Stress [...] Assessment Author Status No 03/28/2019 12:00 AM LASTING MACHINE OPERATOR 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 Answer Date of Assessment Author Status No 03/28/2019 12:00 AM LASTING MACHINE OPERATOR Acti ve * Do you have [...] st Contact Info) Description 02/15/2024 1:30 PM LASTING MACHINE OPERATOR Office Visit [facility] ld [address] [place] [address] Tyrell Leiva PA-C [address] [place] [address] 02/15/2024 1:30 PM LASTING MACHINE OPERATOR Allied Health/Nurse Visit [facility] ld [address] [place] [address] Mary Barber MD [address] [place] [address] 03/15/2024 11:15 AM LASTING MACHINE OPERATOR Office Visit [facility] [address] [place] [address] Jim Tamez MD [address] [place], [place] [address] 05/16/2024 1:15 AM CDT Allied Health/Nurse Visit [facility] ld [address] [place] [address] Mary Barber MD [address] [place] [address] 09/07/2024 9:00 AM CDT Office Visit [facility] [address] [place] [address] Tiffany Badillo MD [address] [place], [place] [address] documented as of this encounter Visit Diagnoses Not on filedocumented in this encounter Care Teams Food Taster Relationship Specialty Start Date End Date Qasim Garrett DO [address] [place] [address] PCP - General FAMILY PRACTICE 04/13/19 Mary Barber MD [address] [place] [address] EP Caseworker Intake CLINICAL CARDIAC ELECTROPHYSIOLOGY 09/15/16 Tiffany Badillo MD [address] [place] [address] Consulting Physician INTERVENTIONAL CARDIOLOGY 12/23/19 documented as of this encounter
--- OUTSIDE RECORDS SUMMARY | 2024-01-27 07:51 | XMS_ITS | Encounter Summary ---
Author Organization [facility] Address [address] [facility] [place] [address] [place] [address] Care Team Providers Care Gravity Prospecting Supervisor Name Role Phone Mary Barber MD Unavailable Qasim Garrett DO Primary Care Provider [phone] Tiffany Badillo MD Unavailable [phone] Encounter Details Date Type Department Care Team (Late st Contact Info) Description 12/23/2019 Orders Only [facility] [address] [place] [address] Cony Wolf RN Social History [...] Organization Meetings Never 03/27/2019 Marital Status 03/27/2019 [place] of Occupat ional Health - Occupational Stress [...] have Coronavirus / COVID-19? No / Unsure 12/28/2019 8:01 AM BEEF CATTLE FARMER documented as of this encounter Functional Status * RETIRED Are you deaf or do you have serious difficulty hearing Answer Date of Assessment Author Status No 03/28/2019 12:00 AM BEEF CATTLE FARMER 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 Answer Date of Assessment Author Status No 03/28/2019 12:00 AM BEEF CATTLE FARMER Acti ve * Do you have serious difficulty walking or climbing stairs? Answer Date of Assessment Author Status Yes 03/28/2019 12:00 AM BEEF CATTLE FARMER Jonas Garcia RN Active * Do you [...] Date Author Status No 03/28/2019 12:00 AM BEEF CATTLE FARMER Jonas Garcia RN Active documented in this encounter Plan of Treatment Upcoming Encounters Date Type Department Care Team (Late st Contact Info) Description 02/15/2024 1:30 PM BEEF CATTLE FARMER Office Visit [facility] ld [address] [place] [address] [phone] Tyrell Leiva, PA-C [address] [place] [address] 02/15/2024 1:30 PM BEEF CATTLE FARMER Allied Health/Nurse Visit [facility] [address] [place] [address] Mary Barber MD [address] [place] [address] 03/15/2024 11:15 AM BEEF CATTLE FARMER Office Visit [facility] [place] [address] [place] [address] Jim Tamez MD [address] [place], [place] [address] [phone] 05/16/2024 1:15 AM CDT Allied Health/Nurse Visit [facility] [address] [place] [address] [phone] Mary Barber MD [address] [place] [address] 09/07/2024 9:00 AM CDT Office Visit [facility] [place] [address] [place] [address] Tiffany Badillo MD [address] [place] [address] documented as of this encounter Visit Diagnoses Not on filedocumented in this encounter Care Teams Gravity Prospecting Supervisor Relationship Specialty Start Date End Date Qasim Garrett DO [address] [place] [address] PCP - General FAMILY PRACTICE 04/13/19 Mary Barber MD [address] [place] [address] EP Ham Clerk CLINICAL CARDIAC ELECTROPHYSIOLOGY 09/15/16 Tiffany Badillo MD [address] [place], [place] [address] Consulting Physician INTERVENTIONAL CARDIOLOGY 12/23/19 documented as of this encounter
--- OUTSIDE RECORDS SUMMARY | 2024-01-27 07:51 | XMS_ITS | Encounter Summary ---
Author Organization [facility] Address [facility] [place] [address] [place] [address] Care Team Providers Care Surgical Product Sales Consultant Name Role Phone Mary Barber MD Unavailable Josey Schwartz AGACNP- Unavailable [phone] Qasim Garrett DO Primary Care Provider [phone] Reason for Visit * Reason Onset Date Comments Appointment Request 11/11/2019 Encounter Details Date Type Department Care Team (Late st Contact Info) Description 11/11/2019 Telephone [facility] [address] [place] [address] Tiffany Badillo MD [address] [place] [address] Appointment Request Social History Tobacco [...] than three times a week 03/27/2019 Attends Worship Services Not on file 03/27 Active Member of Clubs or Organizations Not on f ile 03/27/2019 Attends Club or Organization Meetings Never 03/27/2019 Marital Status 03/27/2019 [facility] of Occupat ional Health - Occupational [...] Assessment Author Status No 03/28/2019 12:00 AM WATER POLLUTION CONTROL INSPECTOR 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 Answer Date of Assessment Author Status No 03/28/2019 12:00 AM WATER POLLUTION CONTROL INSPECTOR Acti ve * Do you have [...] Date Author Status No 03/28/2019 12:00 AM WATER POLLUTION CONTROL INSPECTOR Jonas Garcia RN Active documented in this encounter Progress Notes * Sheila Montaño Maricruz - 11/11/2019 10:09 AM CDT Pt called to schedule a f/u appt with Dr. Badillo in [place]. Pt states she is having issues withher blood pressure. appt scheduled for 12/27. Letter mailed. I asked if pt would like to have b/p addressed with a phone call, pt denied. Advised to call back if she feels b/p issues are getting worse. Pt vu . documented in this encounter Plan of Treatment Upcoming Encounters Date Type Department Care Team (Late st Contact Info) Description 02/15/2024 1:30 PM WATER POLLUTION CONTROL INSPECTOR Office Visit [facility] [address] [place] [address] Tyrell Leiva, PA-C [address] [place] [address] 02/15/2024 1:30 PM WATER POLLUTION CONTROL INSPECTOR Allied Health/Nurse Visit [facility] [address] [place] [address] Mary Barber MD [address] [place] [address] [phone] 03/15/2024 11:15 AM WATER POLLUTION CONTROL INSPECTOR Office Visit [facility] [place] [address] Jim Tamez MD [address] [place] [address] 05/16/2024 1:15 AM CDT Allied Health/Nurse Visit [facility] [address] [place] [address] Mary Barber MD [address] [place] [address] 09/07/2024 9:00 AM CDT Office [facility] [place] [address] Tiffany Badillo MD [address] [place] [address] documented as of this encounter Visit Diagnoses Not on filedocumented in this encounter Care Teams Surgical Product Sales Consultant Relationship Specialty Start Date End Date Qasim Garrett DO [address] [place] [address] PCP - General FAMILY PRACTICE 04/13/19 Mary Barber MD [address] [place] [address] EP Respiratory Medicine Physician CLINICAL CARDIAC ELECTROPHYSIOLOGY 09/15/16 Josey Schwartz [facility] [address] [facility] [address] [place] [address] Nurse Practitioner Electrophysiology 09/18/16 12/22/19 documented as of this encounter
--- OUTSIDE RECORDS SUMMARY | 2024-01-27 07:51 | XMS_ITS | Encounter Summary ---
Author Organization [facility] Address [facility] [place] [address] [place] [address] Care Team Providers Care Certified Coder Name Role Phone Mary Barber MD Unavailable Josey Schwartz AGACNP- Unavailable [phone] Qasim Garrett DO Primary Care Provider [phone] Reason for Visit * Reason Onset Date Comments Information 11/16/2019 perioperative wo rksheet Encounter Details Date Type Department Care Team ([facility] st Contact Info) Description 11/16/2019 Telephone [facility] [address] [place] [address] Mary Barber MD [address] [place] [address] Information (perioperative worksheet) Social History Tobacco Use Types Packs/Day [...] Organization Meetings Never 03/27/2019 Marital Status 03/27/2019 [facility] of Occupat ional Health - [...] Assessment Author Status No 03/28/2019 12:00 AM DESK TOP PUBLISHER 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 Answer Date of Assessment Author Status No 03/28/2019 12:00 AM DESK TOP PUBLISHER Acti ve * Do you have serious [...] Date Author Status No 03/28/2019 12:00 AM DESK TOP PUBLISHER Jonas Garcia RN Active documented in this encounter Progress Notes * Coy Diop RN - 11/16/2019 10:49 AM CDT Perioperative worksheet signed, scanned, and faxed * Erika Meeks RN - 11/16/2019 10:02 AM CDT Thank you for faxing for me. * Coy Diop RN - 11/16/2019 9:52 AM CDT Received call from [facility]. He is requesting perioperative worksheet. Pt is to have an EGD today. Perioperative worksheet initiated and taken to Dr Barber office for review and signing. Please fax back to [facility] after signing and scan into EMR documented in this encounter Plan of Treatment Upcoming Encounters Date Type Department Care Team (Late st Contact Info) Description 02/15/2024 1:30 PM DESK TOP PUBLISHER [facility] [address] [place] [address] Tyrell Leiva PAHaylieC [address] [place] [address] 02/15/2024 1:30 PM DESK TOP PUBLISHER Allied Health/Nurse Visit [facility] [address] [place] [address] Mary Barber MD [address] [place] [address] 03/15/2024 11:15 AM DESK TOP PUBLISHER Office Visit [facility] [address] [place] [address] Jim Tamez MD [address] [place], [place] [address] 05/16/2024 1:15 AM CDT Allied Health/Nurse Visit [facility] [address] [place] [address] Mary Barber MD [address] [place] [address] 09/07/2024 9:00 AM CDT Office Visit [address] [place] [address] Tiffany Badillo MD [address] [place], [place] [address] documented as of this encounter Visit Diagnoses Not on filedocumented in this encounter Care Teams Certified Coder Relationship Specialty Start Date End Date Qasim Garrett DO [address] [place] [address] PCP - General FAMILY PRACTICE 04/13/19 Mary Barber MD [address] [place] [address] EP Cotton Farmworker CLINICAL CARDIAC ELECTROPHYSIOLOGY 09/15/16 Josey Schwartz [facility] [address] [facility] [address] [address] Nurse Practitioner Electrophysiology 09/18/16 12/22/19 documented as of this encounter
--- OUTSIDE RECORDS SUMMARY | 2024-01-27 07:51 | XMS_ITS | Encounter Summary ---
Author Organization [facility] Address [address] [place] [address] [place] [address] Care Team Providers Care Milking Machine Mechanic Name Role Phone Mary Barber MD Unavailable Qasim Garrett DO Primary Care Provider [phone] Tiffany Badillo MD Unavailable [phone] Encounter Details Date Type Department Care Team (Latest Contact Info) Description 12/28/2019 Travel Social History Tobacco Use Types Packs/Day [...] Organization Meetings Never 03/27/2019 Marital Status 03/27/2019 [facility] of Occupat ional Health - Occupational Stress [...] COVID-19? No / Unsure 12/28/2019 8:01 AM BARREL ASSEMBLER documented as of this encounter Functional Status * RETIRED Are you deaf or do you have serious difficulty hearing Answer Date of Assessment Author Status No 03/28/2019 12:00 AM BARREL ASSEMBLER 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 Answer Date of Assessment Author Status No 03/28/2019 12:00 AM BARREL ASSEMBLER Acti ve * Do you have serious [...] st Contact Info) Description 02/15/2024 1:30 PM BARREL ASSEMBLER [facility] [address] [place] [address] Tyrell Leiva, PAHaylieC [address] [place] [address] 02/15/2024 1:30 PM BARREL ASSEMBLER Allied Health/Nurse Visit [facility] [address] [place] [address] Mary Barber MD [address] [place] [address] 03/15/2024 11:15 AM BARREL ASSEMBLER Office Visit [facility] [place] [address] [place] [address] Jim Tamez MD [address] [place], [place] [address] 05/16/2024 1:15 AM CDT Allied Health/Nurse Visit [facility] [address] [place] [address] Mary Barber MD [address] [place] [address] 09/07/2024 9:00 AM CDT Office Visit [facility] [place] [address] [place] [address] Tiffany Badillo MD [address] [place] [address] documented as of this encounter Visit Diagnoses Not on filedocumented in this encounter Care Teams Milking Machine Mechanic Relationship Specialty Start Date End Date Qasim Garrett DO [address] [place] [address] PCP - General FAMILY PRACTICE 04/13/19 Mary Barber MD [address] [place] [address] EP Credit Control Assistant CLINICAL CARDIAC ELECTROPHYSIOLOGY 09/15/16 Tiffany Badillo MD [address] [place] [address] Consulting Physician INTERVENTIONAL CARDIOLOGY 12/23/19 documented as of this encounter
--- OUTSIDE RECORDS SUMMARY | 2024-01-27 07:51 | XMS_ITS | Encounter Summary ---
Author Organization [facility] Address [address] [facility]. [place], [place] [address] [place] [address] Care Team Providers Care Musical String Maker Name Role Phone Mary Barber MD Unavailable Qasim Rolon DO Primary Care Provider [phone] Tiffany Badillo MD Unavailable [phone] Reason for Visit * Reason Comments Follow Up Encounter Details Date Type Department Care Team (Late st Contact Info) Description 12/28/2019 10:00 AM DIRECTOR PAID MEDIA Office Visit [facility] [place] [address] [place] [address] Tiffany Badillo MD [address] [place] [address] Follow Up Social History Tobacco [...] 03/27/2019 Marital Status 03/27/2019 [facility] [place] of Occupat ional Health - Occupational Stress [...] COVID-19? No / Unsure 12/28/2019 8:01 AM DIRECTOR PAID MEDIA documented as of this encounter Last Filed Vital Signs Vital Sign Reading Time Taken Comments Blood Pressure 132/78 12/28/2019 10:39 AM DIRECTOR PAID MEDIA Pulse 59 12/28/2019 10:39 AM DIRECTOR PAID MEDIA Temperature - - Respiratory Rate 20 12/28/2019 10:39 AM DIRECTOR PAID MEDIA Oxygen Saturation 97% 12/28/2019 10:39 AM DIRECTOR PAID MEDIA Inhaled Oxygen Concentration - - Weight 78.6 kg (173 lb 3.2 oz) 12/28/2019 10:39 AM DIRECTOR PAID MEDIA Height 160 cm (5' 3 ) 12/28/2019 10:39 AM DIRECTOR PAID MEDIA Body Mass Index 30.68 12/28/2019 10:39 AM DIRECTOR PAID MEDIA documented in this encounter Functional Status * RETIRED Are you deaf or do you have serious difficulty hearing Answer Date of Assessment Author Status No 03/28/2019 12:00 AM DIRECTOR PAID MEDIA 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 Answer Date of Assessment Author Status No 03/28/2019 12:00 AM DIRECTOR PAID MEDIA Acti ve * Do you have serious [...] Progress Notes * Tiffany Badillo MD - 12/28/2019 10:00 AM CST Chief Complaint: Follow Up HISTORY: Sera Shaffer is a 84-year-old female with past medical history of hypertension, hypercholesterolemia, atrial fibrillation post ablation and Lariat procedure, hemorrhagic stroke and hypothyroidism here for follow-up. She does not have any problems from the cardiovascular point of view, thereis no history of exertional chest pain, paroxysmal nocturnal dyspnea or orthopnea. Her blood pressure at home is running in the 120-130 range consistently. Results of most recent echocardiogram were reviewed with the patient. The swelling of her lower extremities is pretty much resolved. Her most important complaints are related to orthopedic problems including her history of chronic back pain secondary to spinal stenosis, knee pain and right ankle pain. She tried to wear compression stockings but she advanced on their use because they were hard to get on or off. She is not very active but hestill takes care of her who has advanced dementia. Results of available tests were reviewed. She has not experienced any bleeding complications related to the use of anticoagulants. No problems with her medications no refills are required. RECOMMENDATIONS AND PLAN: Continue current medications. Depending on how she is doing clinically, we might update her echocardiogram in 2020 Follow up in 12 months or sooner if any problems arise. [...] 1 TABLET BY MOUTH TWICE A DAY 09/12/19 Yes Tiffany Badillo MD furosemide 20 MG tablet Take 20 mg by mouth 4 (four) times daily. 08/10/19 Yes Doc Abstract levothyroxine 100 MCG tablet Take 100 mcg by mouth daily. 11/07/19 Yes Doc Abstract LISINOPRIL 5 MG tablet TAKE ONE TABLET BY MOUTH ONCE DAILY 09/28/17 Yes Thomas Brian MD metoprolol succinate ER 50 MG 24 hr tablet Take 1 tablet (50 mg total) by mouth daily. Take 1 and 1/2 tabs daily (150mg total) 08/19/19 Yes Tiffany Badillo MD Multiple Vitamins-Minerals (CENTRUM ADULTS OR) Take 1 tablet by mouth daily. Yes Doc Abstract omeprazole 20 MG capsule Take 20 mg by mouth daily as needed. 04/14/18 Yes Doc Abstract pantoprazole EC 40 MG tablet Take 1 tablet by mouth daily. 12/13/19 Yes Doc Abstract rosuvastatin 40 MG tablet Take 1 tablet (40 mg total) by mouth nightly at bedtime. 09/23/19 Yes Tiffany Badillo MD TRIAMTERENE-HYDROCHLOROTHIAZIDE 37.5-25 MG tablet TAKE 1 TABLET BY MOUTH EVERY DAY 11/07/19 Yes Tiffany Badillo MD SOCIAL HISTORY: Social History Tobacco Use ??? Smoking status: Former Smoker Types: Cigarettes Quit date: 1972 Years since quittin.9 ??? Smokeless tobacco: Never Used Substance Use [...] Negative for rash. Neurological: Positive for tingling/numbness (toes). Negative for focal weakness. Endo/Heme/Allergies: Negative for new or significant bruising/bleeding and polydipsia. Psychiatric/Behavioral: Negative for depression and new or significant memory loss. PHYSICAL EXAM: Filed Vitals: 12/28/19 1039 BP: 132/78 Pulse: 59 Resp: 20 SpO2: 97% Weight: 78.6 kg (173 lb 3.2 oz) Height: 5' 3 (1.6 m) Body mass index is 30.68 kg/m??. Physical Exam Constitutional: No distress. HENT: [...] pulmonic regurgitation. Mild tricuspid regurgitation. ?? LE Venous August 11, 2019 Rt Lower Ext: The external iliac, common femoral, sapheno-femoral junction, superficial epigastric,femoral, and popliteal veins show no evidence of venous thrombosis. Lt Lower Ext: The external iliac, common femoral, sapheno-femoral junction, superficial epigastric,femoral, and popliteal veins show no evidence of venous thrombosis. ?? DIAGNOSIS: 1. History of pulmonary embolism 2. Essential hypertension 3. Hypercholesterolemia 4. Paroxysmal atrial fibrillation (CMS/HCC) 5. Biventricular ICD (implantable cardioverter-defibrillator) in place 6. Hemorrhagic stroke (CMS/HCC) PINNACLE Documentation Completed: Atrial Fibrillation Tiffany Badillo MD, [facility], [facility] 12/28/201912:27 PM Referring Provider: Qasim Rolon DO PCP: QASIM ROLON DO CTOR PAID MEDIA documented in this encounter Plan of Treatment Upcoming Encounters Date Type Department Care Team (Late st Contact Info) Description 02/15/2024 1:30 PM DIRECTOR PAID MEDIA Office Visit [facility] [address] [place] [address] yTrell Leiva PA-C [address] [place] [address] 02/15/2024 1:30 PM DIRECTOR PAID MEDIA Allied Health/Nurse Visit [facility] [address] [place] [address] Mary Barber MD [address] [place] [address] 03/15/2024 11:15 AM DIRECTOR PAID MEDIA Office Visit [facility] [place] [address] [place] [address] Jim Tamez MD [address] [place] [address] 05/16/2024 1:15 AM CDT Allied Health/Nurse Visit [facility] [address] [place] [address] Mary Barber MD [address] [place] [address] 09/07/2024 9:00 AM CDT Office Visit [facility] [place] [address] [place] [address] Tiffany Badillo MD [address] [place] [address] documented as of this encounter Visit Diagnoses Diagnosis History of pulmonary embolism- Primary Personal history of pulmonary embolism Essential hypertension Unspecified essential hypertension Hypercholesterolemia Pure hypercholesterolemia Paroxysmal atrial fibrillation ([facility]) Atrial fibrillation Biventricular ICD (implantable cardioverter-defibrillator) in place Hemorrhagic stroke ([facility]) Intracerebral hemorrhage documented in this encounter Care Teams Musical String Maker Relationship Specialty Start Date End Date Qasim Rolon DO [address] [place] [address] PCP - General FAMILY PRACTICE 04/13/19 Mary Barber MD [address] [place] [address] EP Peer Health Promoter CLINICAL CARDIAC ELECTROPHYSIOLOGY 09/15/16 Tiffany Badillo MD [address] [place] [address] Consulting Physician INTERVENTIONAL CARDIOLOGY 12/23/19 documented as of this encounter
--- OUTSIDE RECORDS SUMMARY | 2024-01-27 07:52 | XMS_ITS | Encounter Summary ---
Author Organization [facility] Address [facility] [facility] [place]. [place], [place] [address] [place] [address] Care Team Providers Care Counter Waitress/Waiter Name Role Phone Mary Barber MD Unavailable Josey Schwartz AGACNP- Unavailable [phone] Qasim Garrett DO Primary Care Provider [phone] Reason for Visit * Reason Onset Date Comments Medication 08/19/2019 Encounter Details Date Type Department Care Team (Late st Contact Info) Description 08/19/2019 Telephone [facility] [address] [place] [address] Tiffany Badillo MD [address] [place] [address] Medication Social History Tobacco Use Types Packs/Day Years [...] 03/27/2019 Marital Status 03/27/2019 [facility] of Occupat ional Health - Occupational Stress [...] have Coronavirus / COVID-19? No / Unsure 08/16/2019 11:23 AM CDT documented as of this encounter Functional Status * RETIRED Are you deaf or do you have serious difficulty hearing Answer Date of Assessment Author Status No 03/28/2019 12:00 AM FRONT END ALIGNMENT SPECIALIST 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 Answer Date of Assessment Author Status No 03/28/2019 12:00 AM FRONT END ALIGNMENT SPECIALIST Acti ve * Do you have [...] Status No 03/28/2019 12:00 AM FRONT END ALIGNMENT SPECIALIST Jonas Garcia RN Active documented as of this encounter Mental Status * Because of a physical, mental, or emotional condition, do you have serious difficulty concentrating, remembering, or making decisions? Answer Entry Date Author Status No 03/28/2019 12:00 AM Jonas Collins RN Active documented in this encounter Progress Notes * Nina Harmon LPN - 08/19/2019 11:57 AM CDT Refill request. Metoprolol Succ. ER 50. 1 1.5 tabs qd. Completed. documented in this encounter Plan of Treatment Upcoming Encounters Date Type Department Care Team (Late st Contact Info) Description 02/15/2024 1:30 PM FRONT END ALIGNMENT SPECIALIST Office Visit [facility] [address] [place] [address] Tyrell Leiva, PA-C [address] [place] [address] [phone] 02/15/2024 1:30 PM FRONT END ALIGNMENT SPECIALIST Allied Health/Nurse Visit [facility] ld [address] [place] [address] Mary Barber MD [address] [place] [address] [phone] 03/15/2024 11:15 AM FRONT END ALIGNMENT SPECIALIST Office Visit [facility] [place] [address] Jim Tamez MD [address] [place] [address] 05/16/2024 1:15 AM CDT Allied Health/Nurse Visit [facility] [address] [place] [address] Mary Barber MD [address] [place] [address] 09/07/2024 9:00 AM CDT Office Visit [facility] [place] [address] Tiffany Badillo MD [address] [place] [address] documented as of this encounter Visit Diagnoses Not on filedocumented in this encounter Care Teams Counter Waitress/Waiter Relationship Specialty Start Date End Date Qasim Garrett DO [address] [place] [address] PCP - General FAMILY PRACTICE 04/13/19 Mary Barber MD [address] [place] [address] EP Dedicated Local Truck Driver CLINICAL CARDIAC ELECTROPHYSIOLOGY 09/15/16 Josey [facility] [address] [facility] [address] [place] [address] Nurse Practitioner Electrophysiology 09/18/16 12/22/19 documented as of this encounter
--- OUTSIDE RECORDS SUMMARY | 2024-01-27 07:52 | XMS_ITS | Encounter Summary ---
Author Organization [facility] Address [address] [facility] [place] [address] [place] [address] Care Team Providers Care Miniature Train Driver Name Role Phone Mary Barber MD Unavailable Josey Schwartz AGACNP- Unavailable [phone] Qasim Garrett DO Primary Care Provider [phone] Encounter Details Date Type Department Care Team (Late st Contact Info) Description 08/19/2019 Orders Only [facility] [address] [place] [address] Tiffany Badillo MD [address] [place] [address] Social History Tobacco Use Types Packs/Day [...] Organization Meetings Never 03/27/2019 Marital Status 03/27/2019 [facility] [place] of Occupat ional Health - Occupational Stress [...] Assessment Author Status No 03/28/2019 12:00 AM CREDENTIALING ANALYST 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 Answer Date of Assessment Author Status No 03/28/2019 12:00 AM CREDENTIALING ANALYST Acti ve * Do you have [...] Assessment Author Status No 03/28/2019 12:00 AM CREDENTIALING ANALYST Kinyua, Jonas M , RN Active documented as of this encounter Mental Status * Because of a physical, mental, or emotional condition, do you have serious difficulty concentrating, remembering, or making decisions? Answer Entry Date Author Status No 03/28/2019 12:00 AM CREDENTIALING ANALYST Jonas Garcia RN Active documented in this encounter Plan of Treatment Upcoming Encounters Date Type Department Care Team (Late st Contact Info) Description 02/15/2024 1:30 PM CREDENTIALING ANALYST Office Visit [facility] ld [address] [place] [address] Tyrell Leiva, PA-C [address] [place] [address] 02/15/2024 1:30 PM CREDENTIALING ANALYST Allied Health/Nurse Visit [facility] [address] [place] [address] Mary Barber MD [address] [place] [address] 03/15/2024 11:15 AM CREDENTIALING ANALYST Office Visit [facility] [place] [address] [place] [address] Jim Tamez MD [address] [place] [address] 05/16/2024 1:15 AM CDT Allied Health/Nurse Visit [facility] [address] [place] [address] Mary Barber MD [address] [place] [address] 09/07/2024 9:00 AM CDT Office Visit [facility] [place] [address] [place] [address] Tiffany Badillo MD [address] [place] [address] documented as of this encounter Visit Diagnoses Not on filedocumented in this encounter Care Teams Miniature Train Driver Relationship Specialty Start Date End Date Qasim Garrett DO [address] [place] [address] PCP - General FAMILY PRACTICE 04/13/19 Mary Barber MD [address] [place] [address] EP Roofing Technician CLINICAL CARDIAC ELECTROPHYSIOLOGY 09/15/16 Josey [facility] [address] [address] Nurse Practitioner Electrophysiology 09/18/16 12/22/19 documented as of this encounter
--- OUTSIDE RECORDS SUMMARY | 2024-01-27 07:52 | XMS_ITS | Encounter Summary ---
Author Organization [facility] Address [address] [facility] [place] [address] [place] [address] Care Team Providers Care Field Staff Manager Name Role Phone Mary Barber MD Unavailable Josey Schwartz AGACNP- Unavailable [phone] Qasim Garrett DO Primary Care Provider [phone] Encounter Details Date Type Department Care Team (Latest Contact Info) Description 08/16/2019 Travel Social History Tobacco Use Types Packs/Day [...] Organization Meetings Never 03/27/2019 Marital Status 03/27/2019 [facility] [place] of Occupat ional Health - Occupational Stress [...] Assessment Author Status No 03/28/2019 12:00 AM ROCK BREAKER 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 Answer Date of Assessment Author Status No 03/28/2019 12:00 AM ROCK BREAKER Acti ve * Do you have serious [...] st Contact Info) Description 02/15/2024 1:30 PM ROCK BREAKER Office Visit [facility] [address] [place] [address] Tyrell Leiva PA-C [address] [place] [address] 02/15/2024 1:30 PM ROCK BREAKER Allied Health/Nurse Visit [facility] [address] [place] [address] Mary Barber MD [address] [place] [address] 03/15/2024 11:15 AM ROCK BREAKER Office Visit [facility] [place] [address] [address] [address] Jim Tamez MD [address] [place], [place] [phone] 05/16/2024 1:15 AM CDT Allied Health/Nurse Visit [facility] [address] [place] [address] Mary Barber MD [address] [place] [address] 09/07/2024 9:00 AM CDT Office Visit [facility] [place] [address] [place] [address] Tiffany Badillo MD [address] [place] [address] documented as of this encounter Visit Diagnoses Not on filedocumented in this encounter Care Teams Field Staff Manager Relationship Specialty Start Date End Date Qasim Garrett DO [address] [place] [address] PCP - General FAMILY PRACTICE 04/13/19 Mary Barber MD [address] [place] [address] EP Cafe Helper CLINICAL CARDIAC ELECTROPHYSIOLOGY 09/15/16 Josey Schwartz [facility] [address] [address] Nurse Practitioner Electrophysiology 09/18/16 12/22/19 documented as of this encounter
--- OUTSIDE RECORDS SUMMARY | 2024-01-27 07:53 | XMS_ITS | Encounter Summary ---
Author Organization [facility] Address [address] [facility] [place] [address] [place] [address] Care Team Providers Care Group Cio Name Role Phone Mary Barber MD Unavailable Josey Schwartz AGACN- Unavailable [phone] Qasim Garrett DO Primary Care Provider [phone] Encounter Details Date Type Department Care Team (Late st Contact Info) Description 08/16/2019 Orders Only [facility] [address] [place] [address] Cony Wolf RN Social History [...] than three times a week 03/27/2019 Attends Gnosticism Services Not on file 03/27 Active Member of Clubs or Organizations Not on f ile 03/27/2019 Attends Club or Organization Meetings Never 03/27/2019 Marital Status 03/27/2019 [facility] of Occupat ional Health - [...] Assessment Author Status No 03/28/2019 12:00 AM SNOWMOBILE MECHANIC 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 Answer Date of Assessment Author Status No 03/28/2019 12:00 AM SNOWMOBILE MECHANIC Acti ve * Do you have serious [...] Date Author Status No 03/28/2019 12:00 AM SNOWMOBILE MECHANIC Jonas Garcia RN Active documented in this encounter Plan of Treatment Upcoming Encounters Date Type Department Care Team (Late st Contact Info) Description 02/15/2024 1:30 PM SNOWMOBILE MECHANIC Office Visit [facility] [address] [place] [address] Tyrell Leiva, PA-C [address] [place] [address] 02/15/2024 1:30 PM SNOWMOBILE MECHANIC Allied Health/Nurse Visit [facility] [address] [place] [address] Mary Barber MD [address] [place] [address] 03/15/2024 11:15 AM SNOWMOBILE MECHANIC Office Visit [facility] [place] [address] [place] [address] Jim Tamez MD [address] [place] [address] 05/16/2024 1:15 AM CDT Allied Health/Nurse Visit [facility] [address] [place] [address] Mary Barber MD [address] [place] [address] 09/07/2024 9:00 AM CDT Office Visit [facility] [place] [address] [place] [address] Tiffany Badillo MD [address] [place] [address] documented as of this encounter Visit Diagnoses Not on filedocumented in this encounter Care Teams Group Cio Relationship Specialty Start Date End Date Qasim Garrett DO [address] [place] [address] PCP - General FAMILY PRACTICE 04/13/19 Mary Barber MD [address] [place] [address] EP Insurance Claims Representative CLINICAL CARDIAC ELECTROPHYSIOLOGY 09/15/16 [facility] [address] [address] Nurse Practitioner Electrophysiology 09/18/16 12/22/19 documented as of this encounter
--- OUTSIDE RECORDS SUMMARY | 2024-01-27 07:53 | XMS_ITS | Encounter Summary ---
Author Organization [facility] Address [address] [facility] [place] [address] [place] [address] Care Team Providers Care Turret Lathe Set Up Operator Name Role Phone Mary Barber MD Unavailable Josey Schwartz AGACNP- Unavailable [phone] Qasim Garrett DO Primary Care Provider [phone] Encounter Details Date Type Department Care Team (Late st Contact Info) Description 08/15/2019 8:45 AM CDT Allied Health/Nurse Visit [facility] [address] [place] [address] Mary Barber MD [address] [place] [address] Social History Tobacco Use Types [...] Organization Meetings Never 03/27/2019 Marital Status 03/27/2019 [facility] [place] of Occupat ional Health - Occupational Stress [...] Assessment Author Status No 03/28/2019 12:00 AM MOUSE BREEDER 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 Answer Date of Assessment Author Status No 03/28/2019 12:00 AM MOUSE BREEDER Acti ve * Do you have serious [...] Progress Notes * Coy Diop RN - 08/15/2019 8:45 AM CDT Images from the original note were not included. ICD REMOTE INTERROGATION NAME: Sera Shaffer : 1935 CSN: [id number] DATE OF INTERROGATION: 08/15/19 FOLLOW UP E.P PHYSICIAN: Dr Mary Barber DEVICE SPECIFICATIONS DEVICE COLLECTIONS OFFICER NiteTables DEVICE TYPE BIV ICD EST. BATTERY LIFE OR CURRENT VOLTAGE/ROSALIND VOLTAGE 3.5 yrs LEAD IMPEDENCE TRENDS OK ATRIAL PACING % 18 RV PACING % 94 BIV/LVP PACING % 96 COMMENTS ATRIAL ARRHYTHMIAS AF BURDEN 34.1 total days LONGEST EPISODE >48 hours ORAL ANTICOAGULATION Eliquis/Apixaban COMMENTS VENTRICULAR ARRHYTHMIAS NSVT EPISODE(S) 15 VT EPISODE(S) 0 FVT EPISODE(S) 0 VF EPISODE(S) 0 COMMENTS ALERTS / NURSE COMMENTS ??? SEE ATTACHED PDF FOR VENDOR PRINTOUTS (PRESENTING, HISTOGRAMS, EGM???S) ??? Normal device function PHYSICIAN COMMENTS (IF ANY) ??? Cosigned by Mary Barber MD at 08/19/2019 11:32 AM CDT documented in this encounter Plan of Treatment Upcoming Encounters Date Type Department Care Team (Late st Contact Info) Description 02/15/2024 1:30 PM MOUSE BREEDER [facility] [address] [place] [address] Tyrell Leiva, PAHaylieC [address] [place] [address] 02/15/2024 1:30 PM MOUSE BREEDER Allied Health/Nurse Visit [facility] ld [address] [place] [address] Mary Barber MD [address] [place] [address] 03/15/2024 11:15 AM MOUSE BREEDER Office Visit [facility] [address] [place] [address] Jim Tamez MD [address] [place], [place] [phone] 05/16/2024 1:15 AM CDT Allied Health/Nurse Visit [facility] [address] [place] [address] Mary Barber MD [address] [place] [address] 09/07/2024 9:00 AM CDT Office Visit [address] [place] [address] Tiffany Badillo MD [address] [place], [place] [address] documented as of this encounter Visit Diagnoses Not on filedocumented in this encounter Care Teams Turret Lathe Set Up Operator Relationship Specialty Start Date End Date Qasim Garrett DO [address] [place] [address] PCP - General FAMILY PRACTICE 04/13/19 Mary Barber MD [address] [place] [phone] EP Sugarcane Planter CLINICAL CARDIAC ELECTROPHYSIOLOGY 09/15/16 Josey Schwartz AGACNP-BC [address] [facility] [address] [place] [address] Nurse Practitioner Electrophysiology 09/18/16 12/22/19 documented as of this encounter
--- OUTSIDE RECORDS SUMMARY | 2024-01-27 07:53 | XMS_ITS | Encounter Summary ---
Author Organization [facility] Address [address] [facility]. [place], [place] [address] [place] [address] Care Team Providers Care Assistant Oceanographer Name Role Phone Mary Barber MD Unavailable Josey Schwartz AGACNP- Unavailable [phone] Qasim Garrett DO Primary Care Provider [phone] Reason for Visit * Reason Onset Date Comments Medication Information 08/11/2019 lasix Encounter Details Date Type Department Care Team (Late st Contact Info) Description 08/11/2019 Telephone [facility] [address] [place] [address] Tiffany Badillo MD [address] [place] [address] Medication Information (lasix) Social History Tobacco Use Types Packs/Day Years [...] Organization Meetings Never 03/27/2019 Marital Status 03/27/2019 [facility] of Occupat ional Health - Occupational Stress [...] have Coronavirus / COVID-19? No / Unsure 08/11/2019 10:45 AM CDT documented as of this encounter Functional Status * RETIRED Are you deaf or do you have serious difficulty hearing Answer Date of Assessment Author Status No 03/28/2019 12:00 AM HANDY MAN 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 Answer Date of Assessment Author Status No 03/28/2019 12:00 AM HANDY MAN Acti ve * Do you have serious [...] Progress Notes * Cony Claudia Wolf - 08/11/2019 1:36 PM CDT Sera aware to take Lasix as prescribed. Verbal report called to me from [facility] that venous duplex is negative for DVT. I let them know she is free to go and we will see her as planned next week. * Kelsey Evans - 08/11/2019 8:10 AM CDT Pt called to report her Ortho surgeon put her on lasix for horribly swollen legs as she is being weaned off of the boot post ankle fracture. Pt is concerned about taking the lasix without speaking to Dr. Badillo office. Please call her back at [phone] and if cannot reach her [phone]. Ptreports she has testing @ 11am this morning and probably won't be back until 2:30pm, so as not to call during that time frame. documented in this encounter Plan of Treatment Upcoming Encounters Date Type Department Care Team (Late st Contact Info) Description 02/15/2024 1:30 PM HANDY MAN [facility] [address] [place] [address] Tyrell Leiva PA-C [address] [place] [address] 02/15/2024 1:30 PM HANDY MAN Allied Health/Nurse Visit [facility] [address] [place] [address] Mary Barber MD [address] [place] [address] 03/15/2024 11:15 AM HANDY MAN Office Visit [facility] [address] [place] [address] Jim Tamez MD [address] [place], [place] [address] 05/16/2024 1:15 AM CDT Allied Health/Nurse Visit [facility] [address] [place] [address] Mary Barber MD [address] [place] [address] 09/07/2024 9:00 AM CDT Office Visit [facility] [address] [place] [address] Tiffany Badillo MD [address] [place], [place] [phone] documented as of this encounter Visit Diagnoses Not on filedocumented in this encounter Care Teams Assistant Oceanographer Relationship Specialty Start Date End Date Qasim Garrett DO [address] [place] [address] PCP - General FAMILY PRACTICE 04/13/19 Mary Barber MD [address] [place] [address] EP Refinery Operator Alkylation CLINICAL CARDIAC ELECTROPHYSIOLOGY 09/15/16 Josey Schwartz AGACNP- [address] [place] [address] [place] [id number] Nurse Practitioner Electrophysiology 09/18/16 12/22/19 documented as of this encounter
--- OUTSIDE RECORDS SUMMARY | 2024-01-27 07:53 | XMS_ITS | Encounter Summary ---
Author Organization [facility] Address [address] [facility] [place] [address] [place] [address] Care Team Providers Care Activity Therapist Name Role Phone Mary Barber MD Unavailable Josey Schwartz AGACNP- Unavailable [phone] Qasim Garrett DO Primary Care Provider [phone] Encounter Details Date Type Department Care Team (Latest Contact Info) Description 08/11/2019 Travel Social History Tobacco Use Types Packs/Day [...] Organization Meetings Never 03/27/2019 Marital Status 03/27/2019 [facility] [place] of Occupat ional Health - Occupational Stress [...] Assessment Author Status No 03/28/2019 12:00 AM BILLING AND ACCOUNTING STAFF ASSISTANT 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 Answer Date of Assessment Author Status No 03/28/2019 12:00 AM BILLING AND ACCOUNTING STAFF ASSISTANT Acti ve * Do you have serious [...] st Contact Info) Description 02/15/2024 1:30 PM BILLING AND ACCOUNTING STAFF ASSISTANT Office Visit [facility] [address] [place] [address] Tyrell Leiva PA-C [address] [place] [address] 02/15/2024 1:30 PM BILLING AND ACCOUNTING STAFF ASSISTANT Allied Health/Nurse Visit [facility] [address] [place] [address] Mary Barber MD [address] [place] [address] 03/15/2024 11:15 AM BILLING AND ACCOUNTING STAFF ASSISTANT Office Visit [facility] [place] [address] [place] [address] Jim Tamez MD [address] [place] [phone] 05/16/2024 1:15 AM CDT Allied Health/Nurse Visit [facility] [address] [place] [address] Mary Barber MD [address] [place] [address] 09/07/2024 9:00 AM CDT Office Visit [facility] [place] [address] [place] [address] Tiffany Badillo MD [address] [place] [address] documented as of this encounter Visit Diagnoses Not on filedocumented in this encounter Care Teams Activity Therapist Relationship Specialty Start Date End Date Qasim Garrett DO [address] [place] [address] PCP - General FAMILY PRACTICE 04/13/19 Mary Barber MD [address] [place] [address] EP Mastic Sprayer CLINICAL CARDIAC ELECTROPHYSIOLOGY 09/15/16 [facility] [address] [address] Nurse Practitioner Electrophysiology 09/18/16 12/22/19 documented as of this encounter
--- OUTSIDE RECORDS SUMMARY | 2024-01-27 07:53 | XMS_ITS | Encounter Summary ---
Author Organization [facility] Address Critical access hospital[address] [facility]. [place], [place] [address] [place] [address] Care Team Providers Care Commercial Artist Name Role Phone Mary Barber MD Unavailable Josey Schwartz AGACNP- Unavailable [phone] Qaism Rolon DO Primary Care Provider [phone] Reason for Visit * Reason Comments Follow Up Encounter Details Date Type Department Care Team (Late st Contact Info) Description 08/16/2019 11:30 AM CDT Office Visit [facility] [address] [place] [address] Ez Badillo MD [address] [place] [address] Follow Up Social History Tobacco [...] Organization Meetings Never 03/27/2019 Marital Status 03/27/2019 [facility] of Occupat ional Health - Occupational Stress [...] Sign Reading Time Taken Comments Blood Pressure 136/80 08/16/2019 11:42 AM CDT Pulse 56 08/16/2019 11:42 AM CDT Temperature - - Respiratory Rate 16 08/16/2019 11:42 AM CDT Oxygen Saturation 97% 08/16/2019 11:42 AM CDT Inhaled Oxygen Concentration - - Weight 85.4 kg (188 lb 3.2 oz) 08/16/2019 11:42 AM CDT Height 160 cm (5' 3 ) 08/16/2019 11:42 AM CDT Body Mass Index 33.34 08/16/2019 11:42 AM CDT documented in this encounter Functional Status * RETIRED Are you deaf or do you have serious difficulty hearing Answer Date of Assessment Author Status No 03/28/2019 12:00 AM MANAGER BUSINESS INTELLIGENCE 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 Answer Date of Assessment Author Status No 03/28/2019 12:00 AM MANAGER BUSINESS INTELLIGENCE Acti ve * Do you have serious [...] Progress Notes * Ez Badillo MD - 08/16/2019 11:30 AM CDTAddended by: EZ BADILLO on: 08/16/2019 12:15 PM Modules accepted: Level of Service * Ez Badillo MD - 08/16/2019 11:30 AM CDT Chief Complaint: Follow Up HISTORY: Sera Shaffer is a 84-year-old female with past medical history of hypertension, hypercholesterolemia, atrial fibrillation status post ablation and Lariat procedure implant, hemorrhagic strokeand hypothyroidism here for follow- up. Overall, she is doing well and does not have any ongoing cardiovascular complaints. Patient denies exertional chest pain, paroxysmal nocturnal dyspnea or orthopnea. Her most significant complaint is related to swelling of her lower extremities. Multiple changes were made on her medications after her most recent surgery. Her blood pressure at home has been running in the 130-140 range consistently; HR is well controlled. Results of most recent venous US and echocardiogram were reviewed with patient. No problems with her medications, no refills are required. RECOMMENDATIONS AND PLAN: Continue current medications. Will resume Dyazide 37.5/25 one tablet daily Call us in 10 days with BP readings. If needed, will add furosemide to reduce swelling of lower extremities Follow up in 6 months or sooner [...] History: Procedure Laterality Date ??? ABDOMINAL SURGERY 1980 stomach staple ??? ANKLE SURGERY Right 06/2019 ??? APPENDECTOMY ??? BRAIN SURGERY 2007 brain bleed, rodríguez hole ??? EYE SURGERY cataract ??? FRACTURE SURGERY ??? HC ICD BI VENTRICULAR GENERATOR 04/04/2013 [...] total) by mouth 2 (two) times daily. 05/03/19 Yes Ez Badillo MD aspirin 81 MG tablet Take by mouth daily. 04/29/06 Yes Doc Abstract furosemide 20 MG tablet Take 20 mg by mouth 4 (four) times daily. 08/10/19 Yes Doc Abstract levothyroxine 75 MCG tablet Take 75 mcg by mouth daily. Yes Doc Abstract LISINOPRIL 5 MG tablet TAKE ONE TABLET BY MOUTH ONCE DAILY 09/28/17 Yes Thomas Brian MD methocarbamol 750 MG Tab Take 1 tablet (750 mg total) by mouth 4 (four) times daily as needed (muscle pain and/or spasms). 02/04/19 Yes JAS Pereira METOPROLOL SUCCINATE ER 50 MG 24 hr tablet TAKE 1 AND 1/2 TABLETS BY MOUTH DAILY Patient taking differently: Take 50 mg by mouth daily. 11/05/18 Yes Thomas Brian MD Multiple Vitamins-Minerals (CENTRUM ADULTS OR) Take 1 tablet by mouth daily. Yes Doc Abstract omeprazole 20 MG capsule Take 20 mg by mouth daily as needed. 04/14/18 Yes Doc Abstract ROSUVASTATIN 40 MG tablet TAKE 1 TABLET BY MOUTH EVERY DAY 08/13/18 Yes Thomas Brian MD triamterene-hydroCHLOROthiazide 37.5-25 MG tablet Take 1 tablet by mouth daily. 08/16/19 Yes Ez Badillo MD SOCIAL HISTORY: Social History Tobacco Use ??? Smoking status: Former Smoker Types: Cigarettes Last attempt to quit: 1972 Years since quittin.5 ??? Smokeless tobacco: Never Used Substance Use Topics ??? Alcohol use: No ??? Drug use: No FAMILY HISTORY: Family History Problem Relation Name Age of Onset ??? NV Mother ??? NV Father ??? CABG Brother ??? Stent Brother [...] shortness of breath and snoring. Cardiovascular: See HPI Positive for leg swelling. Gastrointestinal: Negative for blood in stool and melena. Genitourinary: Negative for dysuria. Musculoskeletal: Negative for myalgias and new or worsening joint stiffness/pain. Skin: Negative for rash. Neurological: Negative for tingling/numbness and focal weakness. Endo/Heme/Allergies: Negative for new or significant bruising/bleeding and polydipsia. Psychiatric/Behavioral: Negative for depression and new or significant memory loss. PHYSICAL EXAM: Filed Vitals: 08/16/19 1142 BP: 136/80 Pulse: 56 Resp: 16 SpO2: 97% Weight: 85.4 kg (188 lb 3.2 oz) Height: 5' 3 (1.6 m) Body mass index is 33.34 kg/m??. Physical Exam Rate/Rhythm: normal rate irregularly irregular rhythm. . Heart Sounds: normal heart sounds, normal S1 and normal S2 no gallop, no S3 sound, no S4 sound and no murmur. . PMI: PMI not displaced. Pulses: normal pulses Right Carotid pulses 2+, Left Carotid pulses 2+, Right Radial pulses 2+, LeftRadial pulses 2+, Right Femoral pulses 2+, Left Femoral pulses 2+, Right Popliteal pulses 2+, Left Popliteal pulses 2+, Right DP pulses 2+, Left DP pulses 2+, Right PT pulses 2+Left PT Pulses 2+, Edema left: 2+. , Edema Right: 2+. , negative for edema Constitutional: healthy appearance not distressed. . Neck: normal range of motion, neck supple and thyroid normal no JVD. . Pulmonary/Chest Wall: effort normal and breath sounds normal . HEENT: teeth/gums normal and oropharynx clear and moist. . Abdomen: abdomen soft and bowel sounds normal No tenderness. no mass. no hepatomegaly. No splenomegaly. Abdominal aorta not palpably enlarged. No abdominal aortic bruit. . Eyes: pupils equal, round, and reactive to light and conjunctivae normal. Neurological: alert, oriented x 3, appropriate for situation, intact cranial nerves and normal motor skillsnormal gait, . Skin: dry and warm no cyanosis and no clubbing. Musculoskeletal: no kyphosis normal ROM Cardiovascular Comments: LABORATORY DATA: Lab Results Component [...] veins show no evidence of venous thrombosis. DIAGNOSIS: 1. History of pulmonary embolism Right DVT 2. Essential hypertension 3. Hypercholesterolemia 4. Paroxysmal atrial fibrillation (CMS/HCC) 5. Cardiac pacemaker in situ 6. Hemorrhagic stroke (CMS/HCC) [place] Documentation Completed: Atrial Fibrillation Ez Badillo MD, [facility] 08/16/201912:08 PM Referring Provider: Qasim Rolon PCP: QASIM ROLON DO documented in this encounter Plan of Treatment Upcoming Encounters Date Type Department Care Team (Late st Contact Info) Description 02/15/2024 1:30 PM MANAGER BUSINESS INTELLIGENCE Office Visit [facility] ld [address] [place] [address] Tyrell Leiva PA-C [address] [place] [address] 02/15/2024 1:30 PM MANAGER BUSINESS INTELLIGENCE Allied Health/Nurse Visit [facility] [address] [place] [address] Mary Barber MD [address] [place] [address] 03/15/2024 11:15 AM MANAGER BUSINESS INTELLIGENCE Office Visit [facility] [place] [address] Jim Tamez MD [address] [place] [address] 05/16/2024 1:15 AM CDT Allied Health/Nurse Visit [facility] [address] [place] [address] Mary Barber MD [address] [place] [address] 09/07/2024 9:00 AM CDT Office Visit [facility] [place] [address] Ez Badillo MD [address] [place] [address] documented as of this encounter Visit Diagnoses Diagnosis History of pulmonary embolism- Primary Personal history of pulmonary embolism Essential hypertension Unspecified essential hypertension Hypercholesterolemia Pure hypercholesterolemia Paroxysmal atrial fibrillation ([facility]/HCC) Atrial fibrillation Cardiac pacemaker in situ Hemorrhagic stroke ([facility]) Intracerebral hemorrhage documented in this encounter Care Teams Commercial Artist Relationship Specialty Start Date End Date Qasim Rolon DO [address] [place] [address] PCP - General FAMILY PRACTICE 04/13/19 Mary Barber MD [address] [place] [address] EP Materials Management Clerk CLINICAL CARDIAC ELECTROPHYSIOLOGY 09/15/16 Josey Schwartz [facility] [address] [facility] [address] [place] [address] Nurse Practitioner Electrophysiology 09/18/16 12/22/19 documented as of this encounter
--- OUTSIDE RECORDS SUMMARY | 2024-01-27 07:54 | XMS_ITS | Encounter Summary ---
Author Organization [facility] Address [facility]. [place], [place] [address] [place] [address] Care Team Providers Care Military Technology Specialist Name Role Phone Mary Barber MD Unavailable Josey Schwartz AGACNP- Unavailable [phone] Qasim Garrett DO Primary Care Provider [phone] Reason for Visit * Reason Onset Date Comments Results 05/13/2019 Encounter Details Date Type Department Care Team (Late st Contact Info) Description 05/13/2019 Telephone [employer] [facility] [address] [place] [address] Tiffany Badillo MD [address] [place] [address] Results Social History Tobacco Use [...] Organization Meetings Never 03/27/2019 Marital Status 03/27/2019 [facility] [place] of Occupat ional Health - Occupational Stress [...] have Coronavirus / COVID-19? No / Unsure 05/11/2019 7:06 AM CDT documented as of this encounter Functional Status * RETIRED Are you deaf or do you have serious difficulty hearing Answer Date of Assessment Author Status No 03/28/2019 12:00 AM WEB PRESS ROLL TENDER 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 Answer Date of Assessment Author Status No 03/28/2019 12:00 AM WEB PRESS ROLL TENDER Acti ve * Do you have [...] Assessment Author Status No 03/28/2019 12:00 AM WEB PRESS ROLL TENDER Jonas Garcia RN Active documented as of this encounter Mental Status * Because of a physical, mental, or emotional condition, do you have serious difficulty concentrating, remembering, or making decisions? Answer Entry Date Author Status No 03/28/2019 12:00 AM Jonas Collins RN Active documented in this encounter Progress Notes * Cony Wolf - 05/13/2019 10:14 AM CDT Sera notified Nuc ok may proceed with ankle surgery. She is to hold her Eliquis for 2 days priorto surgery. documented in this encounter Plan of Treatment Upcoming Encounters Date Type Department Care Team (Late st Contact Info) Description 02/15/2024 1:30 PM WEB PRESS ROLL TENDER Office Visit [facility] [address] [place] [address] Tyrell Leiva, PA-C [address] [place] [address] 02/15/2024 1:30 PM WEB PRESS ROLL TENDER Allied Health/Nurse Visit [facility] ld [address] [place] [address] Mary Barber MD [address] [place] [address] 03/15/2024 11:15 AM WEB PRESS ROLL TENDER Office Visit [facility] [place] [address] Jim Tamez MD [address] [place] [address] 05/16/2024 1:15 AM CDT Allied Health/Nurse Visit [facility] [address] [place] [address] Mary Barber MD [address] [place] [address] 09/07/2024 9:00 AM CDT Office Visit [facility] [place] [address] Tiffany Badillo MD [address] [place] [address] documented as of this encounter Visit Diagnoses Not on filedocumented in this encounter Care Teams Military Technology Specialist Relationship Specialty Start Date End Date Qasim Garrett DO [address] [place] [address] PCP - General FAMILY PRACTICE 04/13/19 Mary Barber MD [address] [place] [address] EP Nanotechnology Engineering Technologist CLINICAL CARDIAC ELECTROPHYSIOLOGY 09/15/16 [facility] [address] [facility] [address] [place] [address] Nurse Practitioner Electrophysiology 09/18/16 12/22/19 documented as of this encounter
--- OUTSIDE RECORDS SUMMARY | 2024-01-27 07:54 | XMS_ITS | Encounter Summary ---
Author Organization [facility] Address [address] [facility] [place] [address] [place] [address] Care Team Providers Care Video Software Engineer Name Role Phone Mary Barber MD Unavailable Josey Schwartz AGACNP- Unavailable [phone] Qasim Garrett DO Primary Care Provider [phone] Encounter Details Date Type Department Care Team (Latest Contact Info) Description 05/11/2019 Travel Social History Tobacco Use Types Packs/Day [...] Meetings Never 03/27/2019 Marital Status 03/27/2019 [facility] [place] of Occupat ional Health - Occupational Stress [...] Assessment Author Status No 03/28/2019 12:00 AM SERVICES ENGINEER 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 Answer Date of Assessment Author Status No 03/28/2019 12:00 AM SERVICES ENGINEER Acti ve * Do you have [...] st Contact Info) Description 02/15/2024 1:30 PM SERVICES ENGINEER Office Visit [facility] [address] [place] [address] Tyrell Leiva PA-C [address] [place] [address] 02/15/2024 1:30 PM SERVICES ENGINEER Allied Health/Nurse Visit [facility] [address] [place] [address] Mary Barber MD [address] [place] [address] 03/15/2024 11:15 AM SERVICES ENGINEER Office Visit [facility] [place] [address] [place] [address] Jim Tamez MD [address] [place] [phone] 05/16/2024 1:15 AM CDT Allied Health/Nurse Visit [facility] [address] [place] [address] Mary Barber MD [address] [place] [address] 09/07/2024 9:00 AM CDT Office Visit [facility] [place] [address] [place] [address] Tiffany Badillo MD [address] [place] [address] documented as of this encounter Visit Diagnoses Not on filedocumented in this encounter Care Teams Video Software Engineer Relationship Specialty Start Date End Date Qasim Garrett DO [address] [place] [address] PCP - General FAMILY PRACTICE 04/13/19 Mary Barber MD [address] [place] [address] EP Reproduction Technician CLINICAL CARDIAC ELECTROPHYSIOLOGY 09/15/16 [facility]sey [facility] [address] [address] Nurse Practitioner Electrophysiology 09/18/16 12/22/19 documented as of this encounter
--- OUTSIDE RECORDS SUMMARY | 2024-01-27 07:54 | XMS_ITS | Encounter Summary ---
Author Organization [facility] Address [address] [facility] [place] [address] [place] [address] Care Team Providers Care Commercial Lawn Specialist Name Role Phone Mary Barber MD Unavailable Josey Schwartz AGACNP- Unavailable [phone] Qasim Garrett DO Primary Care Provider [phone] Reason for Referral * Imaging (Routine) - Closed Specialty Diagnoses / Procedures Referred By Contac t Referred To Contact RADIOLOGY Diagnoses Acute deep vein thrombosis (DVT) of popliteal vein of right lower extremity (CMS/HCC HHS/HCC) Procedures USV JUANJOSE DUPLEX LOW EXT JASPAL Tiffany Badillo MD [address] [place] [address] Phone: tel: fax: Referral ID Status Reason Start Date Expiration Date Visits Re quested Visits Authorized [id number] Closed 04/27/2019 05/27/2020 1 1 * Imaging (Routine) - Closed Specialty Diagnoses / Procedures Referred By Contac t Referred To Contact RADIOLOGY Diagnoses 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/HCC HHS/HCC) Procedures USE ECHOCARDIOGRAM Tiffany Badillo MD [address] [place] [address] Phone: tel: fax: Referral ID Status Reason Start Date Expiration Date Visits Re quested Visits Authorized [id number] Closed 04/27/2019 05/27/2020 1 1 Reason for Visit * Imaging (Routine) - Closed Specialty Diagnoses / Procedures Referred By Patrizia t Referred To Contact RADIOLOGY Diagnoses Acute saddle pulmonary embolism without acute cor pulmonale (CMS/HCC HHS/HCC) Procedures USE ECHOCARDIOGRAM Tiffany Badillo MD [address] [place] [address] Phone: tel: fax: Referral ID Status Reason Start Date Expiration Date Visits Re quested Visits Authorized [id number] Closed 04/27/2019 05/27/2020 1 1 Encounter Details Date Type Department Care Team (Latest Contact Info) Description 08/11/2019 10:48 AM CDT - 08/11/2019 11:59 PM CDT Hospital Encounter [facility] [address] [place] [address] Tiffany Badillo MD [address] [place] [address] Discharge Disposition: Home or Self [...] Meetings Never 03/27/2019 Marital Status 03/27/2019 [facility] [place] of Occupat ional Health - Occupational Stress [...] Assessment Author Status No 03/28/2019 12:00 AM CENTRAL PROCESSING TECHNICIAN 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 Answer Date of Assessment Author Status No 03/28/2019 12:00 AM CENTRAL PROCESSING TECHNICIAN Acti ve * Do you have [...] Date Author Status No 03/28/2019 12:00 AM CENTRAL PROCESSING TECHNICIAN Jonas Garcia RN Active documented in this encounter Medications at Time of Discharge aspirin 81 MG tablet Take 1 tablet (81 mg total) by mouth daily. 04/29/2006 apixaban 5 MG tablet Take 1 tablet (5 mg total) by mouth 2 (two) times daily. 60 tablet 1 05/03/2019 09/12/2019 furosemide 20 MG tablet Take 20 mg by mouth 4 (four) times daily. 08/10/2019 05/22/2020 levothyroxine 75 MCG tablet Take 75 mcg by mouth daily. 12/23/2019 LISINOPRIL 5 MG tablet TAKE ONE TABLET BY MOUTH ONCE DAILY 90 tablet 3 09/28/2017 05/22/2020 methocarbamol 750 MG Tab Take 1 tablet (750 mg total) by mouth 4 (four) times daily as needed (muscle pain and/or spasms). 30 tablet 02/04/2019 12/28/2019 METOPROLOL SUCCINATE ER 50 MG 24 hr tablet TAKE 1 AND 1/2 TABLETS BY MOUTH DAILY 135 tablet 3 11/05/2018 08/19/2019 Multiple Vitamins-Minerals ([facility]ENTRUM ADULTS OR) Take 1 tablet by mouth daily. 11/06/2020 omeprazole 20 MG capsule Take 20 mg by mouth daily as needed. 2 04/14/2018 05/22/2020 ROSUVASTATIN 40 MG tablet TAKE 1 TABLET BY MOUTH EVERY DAY 90 tablet 3 08/13/2018 09/23/2019 triamterene-hydro chlorothiazide 37.5-25 MG tablet Take 1 tablet by mouth daily. 12/22/2013 08/16/2019 documented as of this encounter Plan of Treatment Upcoming Encounters Date Type Department Care Team (Late st Contact Info) Description 02/15/2024 1:30 PM CENTRAL PROCESSING TECHNICIAN [facility] [address] [place] [address] Tyrell Leiva PAHaylieC [address] [place] [address] 02/15/2024 1:30 PM CENTRAL PROCESSING TECHNICIAN Allied Health/Nurse [facility] [address] [place] [address] Mary Barber MD [address] [place] [address] 03/15/2024 11:15 AM CENTRAL PROCESSING TECHNICIAN Office Visit [address] [place] [address] Jim Tamez MD [address] [place] [address]41- 05/16/2024 1:15 AM CDT Allied Health/Nurse Visit [facility] [address] [place] [address] Mary Barber MD [address] [place] [address] 902- 09/07/2024 9:00 AM CDT Office Visit [address] [place] [address] Tiffany Badillo MD [address] [place] [address] documented as of this encounter Procedures Procedure Name Priority Date/Time Associated Diagnosis Comments USE ECHOCARDIOGRAM Routine 08/11/2019 12 :04 PM CDT 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) USV JUANJOSE DUPLEX LOW EXT JASPAL Routine 08/11/2019 11:31 AM CDT Acute deep vein thrombosis (DVT) of popliteal vein of right lower extremity (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 HHS/HCC) Acute deep vein thrombosis (DVT) of popliteal vein of right lower extremity ([facility] HHS/[facility]) documented in this encounter Care Teams Commercial Lawn Specialist Relationship Specialty Start Date End Date Qasim Garrett DO [address] [place] [address] PCP - General FAMILY PRACTICE 04/13/19 Mary Barber MD [address] [place] [address] EP Barrel Rifler Broach CLINICAL CARDIAC ELECTROPHYSIOLOGY 09/15/16 Josey Schwartz AGACNPW. [facility]. [facility] [address] [place] [id number] Nurse Practitioner Electrophysiology 09/18/16 12/22/19 documented as of this encounter
--- OUTSIDE RECORDS SUMMARY | 2024-01-27 07:54 | XMS_ITS | Encounter Summary ---
Author Organization [facility] Address [address] [place] [address] [place] [address] Care Team Providers Care Supervisor Fish Bait Processing Name Role Phone Mary Barber MD Unavailable Josey Schwartz AGACNP- Unavailable [phone] Qasim Garrett DO Primary Care Provider [phone] Encounter Details Date Type Department Care Team (Late st Contact Info) Description 05/24/2019 [facility] [address] [place] [address] Scanned, Documents Social History Tobacco Use Types Packs/Day Years [...] Organization Meetings Never 03/27/2019 Marital Status 03/27/2019 [employer] [place] of Occupat ional Health - Occupational Stress [...] Assessment Author Status No 03/28/2019 12:00 AM AVIATION ENGINEER 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 Answer Date of Assessment Author Status No 03/28/2019 12:00 AM AVIATION ENGINEER Acti ve * Do you have [...] Date Author Status No 03/28/2019 12:00 AM AVIATION ENGINEER Jonas Garcia RN Active documented in this encounter Plan of Treatment Upcoming Encounters Date Type Department Care Team (Late st Contact Info) Description 02/15/2024 1:30 PM AVIATION ENGINEER Office Visit [facility] [address] [place] [address] Tyrell Leiva, PA-C [address] [place] [address] 02/15/2024 1:30 PM AVIATION ENGINEER Allied Health/N[facility] [address] [place] [address] Mary Barber MD [address] [place] [address] 03/15/2024 11:15 AM AVIATION ENGINEER Office Visit [facility] [place] [address] [place] [address] Jim Tamez MD [address] [place] [address] 05/16/2024 1:15 AM CDT Allied Health/Nurse Visit [facility] [address] [place] [address] Mary Barber MD [address] [place] [address] 09/07/2024 9:00 AM CDT Office Visit [facility] [place] [address] [place] [address] Tiffany Badillo MD [address] [place] [address] documented as of this encounter Visit Diagnoses Not on filedocumented in this encounter Care Teams Supervisor Fish Bait Processing Relationship Specialty Start Date End Date Qasim Garrett DO [address] [place] [address] PCP - General FAMILY PRACTICE 04/13/19 Mary Barber MD [address] [place] [address] EP Cleaning Porter CLINICAL CARDIAC ELECTROPHYSIOLOGY 09/15/16 Josey Schwartz [facility] [address] [place] [address]327[address] Nurse Practitioner Electrophysiology 09/18/16 12/22/19 documented as of this encounter
--- OUTSIDE RECORDS SUMMARY | 2024-01-27 07:54 | XMS_ITS | Encounter Summary ---
Author Organization [facility] Address [address] [facility]. [place], [place] [address] [place] [address] Care Team Providers Care Cutter V Groove Name Role Phone Mary Barber MD Unavailable Josey Schwartz AGACNP- Unavailable [phone] Qasim Garrett DO Primary Care Provider [phone] Reason for Visit * Reason Onset Date Comments Other 05/25/2019 Encounter Details Date Type Department Care Team (Late st Contact Info) Description 05/25/2019 Telephone [employer] [facility] [address] [place] [address] Tiffany Badillo MD [address] [place] [address] Other Social History Tobacco Use Types Packs/Day Years [...] 03/27/2019 Marital Status 03/27/2019 [facility] [place] of Occupat ional Health - Occupational [...] Assessment Author Status No 03/28/2019 12:00 AM SMOKEHOUSE OPERATOR 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 Answer Date of Assessment Author Status No 03/28/2019 12:00 AM SMOKEHOUSE OPERATOR Acti ve * Do you have [...] Progress Notes * Cony Claudia Wolf - 05/27/2019 9:37 AM CDT Ronna at [facility], [phone], reports Sera's BP 108/70 HR 82 this morning. She is on Toprol 50mg daily. Ronna will let us know if BP starts going up. Erika notified of communication with Ronna. * Ramona Deal - 05/26/2019 2:50 PM CDT Discharge summary received and given to nurse for review * Ramona Deal - 05/26/2019 8:19 AM CDT Return fax indicated d/c summary not yet in patient's chart. * Ramona Deal - 05/25/2019 3:56 PM CDT Discharge summary requested * Melia Robbins RN - 05/25/2019 3:52 PM CDT Please request d/c summary from [facility]. Called and left message for daughter that we will request records and call back tomorrow once reviewed. * Ramona Deal - 05/25/2019 12:30 PM CDT Patient at [facility] recovering from ankle surgery. Daughter states patient was taken off all her BP medications after the surgery that was performed on her ankle at [facility] in the last couple week. She states that is what her mother is telling her as she is not allowed to go int facility and has not seen her discharge papers. She stated her mom's BP yesterday was 145/110 and in the 130s this morning. Her mother further stated that the discharge papers said to follow up with cardiology because they had discontinued her BP medication. She asked how that was going to happen. I offered her a video visit but daughter states although mom has smart phone, she has no e-mail.She then asked if nurse could review patient's discharge instructions from [facility] I let her know I would forward her message to the nurse and someone would get back to her. She left call back number of documented in this encounter Plan of Treatment Upcoming Encounters Date Type Department Care Team (Late st Contact Info) Description 02/15/2024 1:30 PM SMOKEHOUSE OPERATOR [facility] [address] [place] [address] Tyrell Leiva PAHaylieC [address] [place] [address] 02/15/2024 1:30 PM SMOKEHOUSE OPERATOR Allied Health/Nurse Visit [facility] [address] [place] [address] Mary Barber MD [address] [place] [address] 03/15/2024 11:15 AM SMOKEHOUSE OPERATOR Office Visit [facility] [place] [address] Jim Tamez MD [address] [place] [address] 05/16/2024 1:15 AM CDT Allied Health/Nurse Visit [facility] [address] [place] [address] Mary Barber MD [address] [place] [address] 09/07/2024 9:00 AM CDT Office Visit [facility] [place] [address] Tiffany Badillo MD [address] [place], [place] [address] documented as of this encounter Visit Diagnoses Not on filedocumented in this encounter Care Teams Cutter V Groove Relationship Specialty Start Date End Date Qasim Garrett DO [address] [place] [address] PCP - General FAMILY PRACTICE 04/13/19 Mary Barber MD [address] [place] [address] EP Blocker And Cutter Contact Lens CLINICAL CARDIAC ELECTROPHYSIOLOGY 09/15/16 Josey Schwartz AGACNP- [address] [place] [address] [place] [address] Nurse Practitioner Electrophysiology 09/18/16 12/22/19 documented as of this encounter
--- OUTSIDE RECORDS SUMMARY | 2024-01-27 07:54 | XMS_ITS | Encounter Summary ---
Author Organization [facility] Address [address] [facility] [place] [address] [place] [address] Care Team Providers Care Dietitian Therapeutic Name Role Phone Mary Barber MD Unavailable Josey Schwartz AGACN- Unavailable [phone] Qasim Garrett DO Primary Care Provider [phone] Reason for Referral * (Routine) - Closed Specialty Diagnoses / Procedures Referred By Contac t Referred To Contact Diagnoses Abnormal ECG Procedures Stress Test (Nuclear) [facility] [address] [place] [address] Phone: tel: Referral ID Status Reason Start Date Expiration Date Visits Re quested Visits Authorized [id number] Closed 05/11/2019 06/09/2020 1 1 Encounter Details Date Type Department Care Team (Latest Contact Info) Description 05/11/2019 7:09 AM CDT - 05/11/2019 11:59 PM CDT Hospital Encounter [facility] [address] [place] [address] Tiffany Badillo MD [address] [place], [place] [address] [place] [address] [place], [place] [address] Discharge Disposition: Home or Self Care (Routine [...] Never 03/27/2019 Marital Status 03/27/2019 [facility] of Occupat ional Health - Occupational [...] Assessment Author Status No 03/28/2019 12:00 AM BATCH TESTER 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 Answer Date of Assessment Author Status No 03/28/2019 12:00 AM BATCH TESTER Acti ve * Do you have [...] times daily. 60 tablet 1 05/03/2019 09/12/2019 levothyroxine 75 MCG tablet Take 75 mcg [...] Contact Info) Description 02/15/2024 1:30 PM BATCH TESTER Office Visit [facility] [address] [place] [address] Tyrell Leiva PAHaylieC [address] [place] [address] 02/15/2024 1:30 PM BATCH TESTER Allied Health/Nurse Visit [facility] [address] [place] [address] Mary Barber MD [address] [place] [address] 03/15/2024 11:15 AM BATCH TESTER Office Visit [facility] [place] [address] [place] [address] Jim Tamez MD [address] [place] [address] 05/16/2024 1:15 AM CDT Allied Health/Nurse Visit [facility] [address] [place] [address] Mray Barber MD [address] [place] [address] 09/07/2024 9:00 AM CDT Office Visit [facility] [place] [address] [place] [address] Tiffany Badillo MD [address] [place] [address] documented as of this encounter Procedures Procedure Name Priority Date/Time Associated Diagnosis Comments CARDIOLOGY STRESS TEST ONLY, EXERCISE Routine 05/11/2019 10:53 AM CDT Abnormal ECG documented in this encounter Visit Diagnoses Diagnosis Abnormal ECG- Primary Nonspecific abnormal electrocardiogram (ECG) (EKG) documented in this encounter Administered Medications Inactive Administered Medications - up to 3 most recent administrations Medication Order MAR Action Action Date Dose Rate Site regadenoson (LEXISCAN) injection 0.4 mg 0.4 mg, Intravenous, Once, 1 dose, On Thu05/11/19 at 0815, Administer over 10 seconds Given 05/11/2019 9:24 AM CDT 0.4 mg documented in this encounter Care Teams Dietitian Therapeutic Relationship Specialty Start Date End Date Qasim Garrett DO [address] [place] [address] PCP - General FAMILY PRACTICE 04/13/19 Mary Barber MD [address] [place] [address] EP Rn Emergency CLINICAL CARDIAC ELECTROPHYSIOLOGY 09/15/16 Josey Schwartz [facility] [address] [facility] [address] [place] [address] Nurse Practitioner Electrophysiology 09/18/16 12/22/19 documented as of this encounter
--- OUTSIDE RECORDS SUMMARY | 2024-01-27 07:54 | XMS_ITS | Encounter Summary ---
Author Organization [facility] Address [facility] [place] [address] [place] [address] Care Team Providers Care Stave Jointer Name Role Phone Mary Barber MD Unavailable Josey Schwartz AGACNP- Unavailable [phone] Qasim Garrett DO Primary Care Provider [phone] Reason for Visit * Reason Onset Date Comments Medication Information 07/29/2019 hydrochlo rothiazide Appointment Request 07/29/2019 f/u appt Encounter Details Date Type Department Care Team (Late st Contact Info) Description 07/29/2019 Telephone [facility] [address] [place] [address] Tiffany Badillo MD [address] [place] [address] Medication Information (hydrochlorothiazide) ; Appointment Request (f/u appt) Social History Tobacco Use Types Packs/Day Years [...] Marital Status 03/27/2019 [facility] - Occupational Stress [...] Assessment Author Status No 03/28/2019 12:00 AM LEAD ADVISOR 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 Answer Date of Assessment Author Status No 03/28/2019 12:00 AM LEAD ADVISOR Acti ve * Do you have serious [...] Assessment Author Status No 03/28/2019 12:00 AM LEAD ADVISOR Kinyua, Jonas M , RN Active documented as of this encounter Mental Status * Because of a physical, mental, or emotional condition, do you have serious difficulty concentrating, remembering, or making decisions? Answer Entry Date Author Status No 03/28/2019 12:00 AM LEAD ADVISOR Jonas Garcia RN Active documented in this encounter Progress Notes * Kelsey Evans - 07/29/2019 12:57 PM CDT Pt called to schedule her f/u appt. Pt reports she is having testing on 08/11/19 in [place] and iswilling to come to [place] to be seen sooner than 08/30 in [place]. Schedule Pt for f/u on 08/16/19 @ 11:30am. Letter mailed. Pt also needs refill of her hydrochlorothiazide; she reports it was changed at her last hospitlization when she was at [facility]. She reports she is now on 12.5 mg once a day and takes it in the morning. Pt reports she needs a new script sent into [facility] in [place] and would like the nurse to returnher call at [phone]. documented in this encounter Plan of Treatment Upcoming Encounters Date Type Department Care Team (Late st Contact Info) Description 02/15/2024 1:30 PM LEAD ADVISOR [facility] [address] [place] [address] Tyrell Leiva PA-C [address] [place] [address] 02/15/2024 1:30 PM LEAD ADVISOR Allied Health/Nurse Visit [facility] [address] [place] [address] Mary Barber MD [address] [place] [address] 03/15/2024 11:15 AM LEAD ADVISOR Office Visit [facility] [address] [place] [address] Jim Tamez MD [address] [place], [place] [address] 05/16/2024 1:15 AM CDT Allied Health/Nurse Visit [facility] [address] [place] [address] Mary Barber MD [address] [place] [address] 09/07/2024 9:00 AM CDT Office Visit [facility] [address] [place] [address] Tiffany Badillo MD [address] [place], [place] [address] documented as of this encounter Visit Diagnoses Not on filedocumented in this encounter Care Teams Stave Jointer Relationship Specialty Start Date End Date Qasim Garrett DO [address] [place] [address] PCP - General FAMILY PRACTICE 04/13/19 Mary Barber MD [address] [place] [address] EP Shingle Bolt Cutter CLINICAL CARDIAC ELECTROPHYSIOLOGY 09/15/16 Josey Schwartz AGACNP- [address] [place] [address] [place] [address] [id number] Nurse Practitioner Electrophysiology 09/18/16 12/22/19 documented as of this encounter
--- OUTSIDE RECORDS SUMMARY | 2024-01-27 07:54 | XMS_ITS | Encounter Summary ---
Author Organization [facility] Address [address] [place], [place] [address] [place] [address] Care Team Providers Care Golf Ball Inspector Name Role Phone Mary Barber MD Unavailable Josey Schwartz AGACNP- Unavailable [phone] Qasim Garrett DO Primary Care Provider [phone] Reason for Visit * Reason Onset Date Comments Question 05/11/2019 Encounter Details Date Type Department Care Team (Late st Contact Info) Description 05/11/2019 Telephone [email or web address] [address] [place] [address] Tiffany Badillo MD [address] [place] [address] Question Social History Tobacco Use [...] 03/27/2019 [facility] [place] of Occupat ional Health - Occupational Stress [...] Assessment Author Status No 03/28/2019 12:00 AM COAL WEIGHER 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 Answer Date of Assessment Author Status No 03/28/2019 12:00 AM COAL WEIGHER Acti ve * Do you have serious [...] Assessment Author Status No 03/28/2019 12:00 AM COAL WEIGHER Jonas Garcia , RN Active documented as of this encounter Mental Status * Because of a physical, mental, or emotional condition, do you have serious difficulty concentrating, remembering, or making decisions? Answer Entry Date Author Status No 03/28/2019 12:00 AM Jonas Collins RN Active documented in this encounter Progress Notes * Ramona J Say - 05/11/2019 3:57 PM CDT Patient's daughter Erika has a couple non-urgent questions for the nurse. Erika can be reached [phone] (home) or [phone] (cell). documented in this encounter Plan of Treatment Upcoming Encounters Date Type Department Care Team (Late st Contact Info) Description 02/15/2024 1:30 PM COAL WEIGHER Office Visit [facility] ld [address] [place] [address] Tyrell Leiva PAHaylieC [address] [place] [address] 02/15/2024 1:30 PM COAL WEIGHER Allied Health/Nurse Visit [facility] ld [address] [place] [address] Mary Barber MD [address] [place] [address] 03/15/2024 11:15 AM COAL WEIGHER Office Visit [facility] [place] [address] Jim Tamez MD [address] [place] [address] 05/16/2024 1:15 AM CDT Allied Health/Nurse Visit [facility] ld [address] [place] [address] Mary Barber MD [address] [place] [address] 09/07/2024 9:00 AM CDT Office Visit [facility] [address] [place] [address] Tiffany Badillo MD [address] [place] [address] documented as of this encounter Visit Diagnoses Not on filedocumented in this encounter Care Teams Golf Ball Inspector Relationship Specialty Start Date End Date Qasim Garrett DO [address] [place] [address] PCP - General FAMILY PRACTICE 04/13/19 Mary Barber MD [address] [place] [address] EP Market Research Interviewer CLINICAL CARDIAC ELECTROPHYSIOLOGY 09/15/16 Josey Schwartz AGACNP[facility] [address] [facility] [address] [place] [address] Nurse Practitioner Electrophysiology 09/18/16 12/22/19 documented as of this encounter
--- OUTSIDE RECORDS SUMMARY | 2024-01-27 07:55 | XMS_ITS | Encounter Summary ---
Author Organization [facility] Address [address] [facility] [place] [address] [place] [address] Care Team Providers Care Crime Scene Specialist Name Role Phone Mary Barber MD Unavailable Josey Schwartz [facility] Unavailable Qasim Garrett DO Primary Care Provider [phone] Reason for Referral * Imaging (Routine) - Closed Specialty Diagnoses / Procedures Referred By Contac t Referred To Contact RADIOLOGY Diagnoses Preop cardiovascular exam Procedures NM PHARM NUC STRESS TEST 1DAY Tiffany Badillo MD [address] [place] [address] Phone: tel: fax: [facility] [address] [place] [address] Phone: tel: fax: Referral ID Status Reason Start Date Expiration Date Visits Re quested Visits Authorized [id number] Closed 05/10/2019 06/09/2020 1 1 Reason for Visit * Imaging (Routine) - Closed Specialty Diagnoses / Procedures Referred By Patrizia serra Referred To Contact RADIOLOGY Diagnoses Preop cardiovascular exam Procedures NM PHARM NUC STRESS TEST Tiffany Vaughn MD [address] [place] [address] Phone: tel: fax: [facility] [address] [place] [address] Phone: tel: fax: Referral ID Status Reason Start Date Expiration Date Visits Re quested Visits Authorized [id number] Closed 05/10/2019 06/09/2020 1 1 Encounter Details Date Type Department Care Team (Latest Contact Info) Description 05/11/2019 7:08 AM CDT Hospital Encounter [facility] [address] [facility] [place] [place] [address] Tiffany Badillo MD [address] [place], [place] [address] Discharge Disposition: Home or Self Care (Routine [...] than three times a week 03/27/2019 Attends [employer] Services Not on file 03/27 Active Member of Clubs or Organizations Not on f ile 03/27/2019 Attends Club or Organization Meetings Never 03/27/2019 Marital Status 03/27/2019 [facility] of Occupat ional Health - Occupational Stress [...] Assessment Author Status No 03/28/2019 12:00 AM COVERING MACHINE OPERATOR HELPER 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 Answer Date of Assessment Author Status No 03/28/2019 12:00 AM COVERING MACHINE OPERATOR HELPER Acti ve * Do you have serious [...] st Contact Info) Description 02/15/2024 1:30 PM COVERING MACHINE OPERATOR HELPER Office Visit [facility] ld [address] [place] [address] Tyrell Leiva, PAHaylieC [address] [place] [address] [phone] 02/15/2024 1:30 PM COVERING MACHINE OPERATOR HELPER Allied Health/Nurse Visit [facility] ld [address] [place] [address] [phone] Mary Barber MD [address] [place] [address] 03/15/2024 11:15 AM COVERING MACHINE OPERATOR HELPER Office Visit [facility] [place] [address] Jim Tamez MD [address] [place] [address] 05/16/2024 1:15 AM CDT [facility] [address] [place] [address] Mary Barber MD [address] [place] [address] 09/07/2024 9:00 AM CDT Office Visit [facility] [place] [address] Tiffany Badillo MD [address] [place], [place] [address] documented as of this encounter Procedures Procedure Name Priority Date/Time Associated Diagnosis Comments NM PHARM NUC STRESS TEST 1DAY Routine 05/11/2019 10:53 AM CDT Preop cardiovascular exam documented in this encounter Results * NM PHARM NUC STRESS TEST 1DAY (05/11/2019 10:53 AM CDT) Anatomical Region Laterality Modality Cardiac Nuclear Medicine Tiffany Badillo MD NUC MED Final Result documented in this encounter Visit Diagnoses Diagnosis Preop cardiovascular exam Pre-operative cardiovascular examination documented in this encounter Administered Medications Inactive Administered Medications - up to 3 most recent administrations Medication Order MAR Action Action Date Dose Rate Site Generic Radiopharmaceutical 26.8 millicurie 26.8 millicurie, Intravenous, Bolus (Once), 1 dose, On Thu05/11/19 at 0915 Given 05/11/2019 9:13 AM CDT 26.8 millicuries Generic Radiopharmaceutical 8.7 millicurie 8.7 millicurie, Intravenous, Bolus (Once), 1 dose, On Thu05/11/19 at 0715 Given 05/11/2019 7:11 AM CDT 8.7 millicuries documented in this encounter Care Teams Crime Scene Specialist Relationship Specialty Start Date End Date Qasim Garrett DO [address] [place] [address] PCP - General FAMILY PRACTICE 04/13/19 Mary Barber MD [address] [place] [address] EP Certified Driver Examiner CLINICAL CARDIAC ELECTROPHYSIOLOGY 09/15/16 Josey Schwartz AGACNP- [address] [address] Nurse Practitioner Electrophysiology 09/18/16 12/22/19 documented as of this encounter
--- OUTSIDE RECORDS SUMMARY | 2024-01-27 07:55 | XMS_ITS | Encounter Summary ---
Author Organization [facility] Address [address] [facility] [address] [place] [address] Care Team Providers Care Training Lead Name Role Phone Mary Barber MD Unavailable [facility] Unavailable [phone] Qasim Garrett DO Primary Care Provider [phone] Reason for Referral * Imaging (Routine) - Closed Specialty Diagnoses / Procedures Referred By Contac t Referred To Contact RADIOLOGY Diagnoses Preop cardiovascular exam Procedures NM PHARM NUC STRESS TEST 1DAY Tiffany Badillo MD [address] [place] [address] Phone: tel: fax: [facility] [address] [place] [address] Phone: tel: fax: Referral ID Status Reason Start Date Expiration Date Visits Re quested Visits Authorized [id number] Closed 05/10/2019 06/09/2020 1 1 Encounter Details Date Type Department Care Team (Late st Contact Info) Description 05/10/2019 Orders Only [facility] [address] [place] [address] Tiffany Badillo MD [address] [place] [address] Social History Tobacco Use Types [...] Never 03/27/2019 Marital Status 03/27/2019 [facility] of Occupat ional Health - Occupational [...] Assessment Author Status No 03/28/2019 12:00 AM PHOTOGRAPH ENLARGER 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 Answer Date of Assessment Author Status No 03/28/2019 12:00 AM PHOTOGRAPH ENLARGER Acti ve * Do you have serious [...] Date Type Department Care Team (Late st [facility]) Description 02/15/2024 1:30 PM PHOTOGRAPH ENLARGER Office Visit [facility] ld [address] [place] [address] Tyrell Leiva, PA-C [address] [place] [address] 02/15/2024 1:30 PM PHOTOGRAPH ENLARGER Allied Health/Nurse Visit [facility] [address] [place] [address] Mary Barber MD [address] [place] [address] 03/15/2024 11:15 AM PHOTOGRAPH ENLARGER Office Visit [facility] [place] [address] Jim Tamez MD [address] [place] [address] 05/16/2024 1:15 AM CDT Allied Health/Nurse Visit [facility] [address] [place] [address] Mary Barber MD [address] [place] [address] 09/07/2024 9:00 AM CDT Office Visit [facility] [place] [address] Tiffany Badillo MD [address] [place], [place] [address] documented as of this encounter Results * NM PHARM NUC STRESS TEST 1DAY (05/11/2019 10:53 AM CDT) Anatomical Region Laterality Modality Cardiac Nuclear Medicine us Tiffany Badillo MD NUC MED Final Result documented in this encounter Visit Diagnoses Diagnosis Preop cardiovascular exam- Primary Pre-operative cardiovascular examination documented in this encounter Care Teams Training Lead Relationship Specialty Start Date End Date Qasim Garrett DO [address] [place] [address] PCP - General FAMILY PRACTICE 04/13/19 Mary Barber MD [address] [place] [address] EP Underwater Roboticist CLINICAL CARDIAC ELECTROPHYSIOLOGY 09/15/16 Josey Schwartz [facility] [address] [facility] [address] [place] [id number] Nurse Practitioner Electrophysiology 09/18/16 12/22/19 documented as of this encounter
--- OUTSIDE RECORDS SUMMARY | 2024-01-27 07:55 | XMS_ITS | Encounter Summary ---
Author Organization [facility] Address [facility] [place] [address] [place] [address] Care Team Providers Care Java Front End Web Developer Name Role Phone Mary Barber MD Unavailable Josey Schwartz AGACNP- Unavailable [phone] Qasim Garrett DO Primary Care Provider [phone] Reason for Visit * Reason Onset Date Comments Appointment Request 05/03/2019 Encounter Details Date Type Department Care Team ([facility] st Contact Info) Description 05/03/2019 Telephone [employer] [facility] [address] [place] [address] Mary Barber MD [address] [place] [address] Appointment Request Social History Tobacco Use Types [...] Meetings Never 03/27/2019 Marital Status 03/27/2019 [facility] [place] of Occupat ional Health - Occupational Stress [...] Assessment Author Status No 03/28/2019 12:00 AM BUSINESS SYSTEMS DEVELOPER 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 Answer Date of Assessment Author Status No 03/28/2019 12:00 AM BUSINESS SYSTEMS DEVELOPER Acti ve * Do you have [...] Date Author Status No 03/28/2019 12:00 AM BUSINESS SYSTEMS DEVELOPER Jonas Garcia RN Active documented in this encounter Progress Notes * Catalina Magaña - 05/17/2019 2:31 PM CDT LVM for pt to return my call to schedule appt * Erika Meeks RN - 05/03/2019 9:13 AM CDT Pt will be due f/u appt when available. * Julienne Mcnair RN - 05/03/2019 9:04 AM CDT Patient calling for appt with Dr. Barber, per instruction of Dr. Holguin. Phone: [phone]. documented in this encounter Plan of Treatment Upcoming Encounters Date Type Department Care Team (Late st Contact Info) Description 02/15/2024 1:30 PM BUSINESS SYSTEMS DEVELOPER Office Visit [facility] ld [address] [place] [address] Tyrell Leiva PA-C [address] [place] [address] 02/15/2024 1:30 PM BUSINESS SYSTEMS DEVELOPER Allied Health/Nurse Visit [facility] ld [address] [place] [address] Mary Barber MD [address] [place] [address] 03/15/2024 11:15 AM BUSINESS SYSTEMS DEVELOPER Office Visit [facility] [place] [address] Jim Tamez MD [address] [place], [place] [address] 05/16/2024 1:15 AM CDT Allied Health/Nurse Visit [facility] [address] [place] [address] Mary Barber MD [address] [place] [address] 09/07/2024 9:00 AM CDT Office Visit [facility] [place] [address] Tiffany Badillo MD [address] [place], [place] [address] documented as of this encounter Visit Diagnoses Not on filedocumented in this encounter Care Teams Java Front End Web Developer Relationship Specialty Start Date End Date Qasim Garrett DO [address] [place] [address] PCP - General FAMILY PRACTICE 04/13/19 Mary Barber MD [address] [place] [address] EP Mortgage Advisor CLINICAL CARDIAC ELECTROPHYSIOLOGY 09/15/16 Josey [facility] [address] [facility] [address] [place] [address] Nurse Practitioner Electrophysiology 09/18/16 12/22/19 documented as of this encounter
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
--- OUTSIDE RECORDS SUMMARY | 2024-01-27 07:55 | XMS_ITS | Encounter Summary ---
Author Organization [facility] Address [facility] [facility] [place] [address] [place] [address] Care Team Providers Care Pheresis Specialist Name Role Phone Mary Barber MD Unavailable Thomas Brian MD Unavailable Unavailable [facility] Unavailable [phone] Reason for Visit * Reason Onset Date Comments Information 04/08/2019 remote transmiss ion question Encounter Details Date Type Department Care Team ([facility] st Contact Info) Description 04/08/2019 Telephone [facility] [address] [place] [address] Mary Barber MD [address] [place] [address] Information (remote transmission question) Social History Tobacco Use Types Packs/Day Years Used Date Smoking Tobacco: Former Cigarettes Q uit: 09/23/1971 Smokeless Tobacco: Never Alcohol Use Standard Drinks/Week [...] than three times a week 03/27/2019 Attends Sikh Services Not on file 03/27 Active Member of Clubs or Organizations Not on f ile 03/27/2019 Attends Club or Organization Meetings Never 03/27/2019 Marital Status 03/27/2019 [facility] [place] of Occupat ional Health - Occupational Stress [...] Assessment Author Status No 03/28/2019 12:00 AM OPTICIAN APPRENTICE DISPENSING 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 Answer Date of Assessment Author Status No 03/28/2019 12:00 AM OPTICIAN APPRENTICE DISPENSING Acti ve * Do you have serious [...] Date Author Status No 03/28/2019 12:00 AM OPTICIAN APPRENTICE DISPENSING Jnoas Garcia RN Active documented in this encounter Progress Notes * Coy Diop RN - 04/08/2019 8:45 AM CST Pt daughter called to inquire about the remote monitor. Pt is in rehab right now but should be homeby 04/22/19 remote appt. Daughter will call us if pt will not be out of rehab by then. We can reschedule the remote if that is the case. Daughter verbalized understanding and had no questions CIAN APPRENTICE DISPENSING documented in this encounter Plan of Treatment Upcoming Encounters Date Type Department Care Team (Late st Contact Info) Description 02/15/2024 1:30 PM OPTICIAN APPRENTICE DISPENSING Office Visit [facility] [address] [place] [address] Tyrell Leiva, PA-C [address] [place] [address] 02/15/2024 1:30 PM OPTICIAN APPRENTICE DISPENSING Allied Health/Nurse Visit [facility] [address] [place] [address] Mary Barber MD [address] [place] [address] 03/15/2024 11:15 AM OPTICIAN APPRENTICE DISPENSING Office Visit [facility] [place] [address] Jim Tamez MD [address] [place] [address] 05/16/2024 1:15 AM CDT Allied Health/Nurse Visit [facility] [address] [place] [address] Mary Barber MD [address] [place] [address] 09/07/2024 9:00 AM CDT Office Visit [facility] [place] [address] Tiffany Badillo MD [address] [place] [address] documented as of this encounter Visit Diagnoses Not on filedocumented in this encounter Care Teams Pheresis Specialist Relationship Specialty Start Date End Date Mary Barber MD [address] [place] [address] EP Fig Washer CLINICAL CARDIAC ELECTROPHYSIOLOGY 09/15/16 Thomas Brian MD [address] [place] [address] CARDIOVASCULAR DISEASE 09/16/16 04/12/19 Josey Schwartz [facility] [address] [place] [address] [place] [address] [phone] Nurse Practitioner Electrophysiology 09/18/16 12/22/19 documented as of this encounter
--- OUTSIDE RECORDS SUMMARY | 2024-01-27 07:55 | XMS_ITS | Encounter Summary ---
Author Organization [facility] Address [address] [facility] [address] [place] [address] Care Team Providers Care Pediatric Nurse Practitioner Name Role Phone Mary Barber MD Unavailable Josey Schwartz AGACNP- Unavailable [phone] Qasim Garrett DO Primary Care Provider [phone] Encounter Details Date Type Department Care Team (Latest Contact Info) Description 04/27/2019 Travel Social History Tobacco Use Types Packs/Day [...] Organization Meetings Never 03/27/2019 Marital Status 03/27/2019 [facility] [place] of Occupat ional Health - Occupational Stress [...] Assessment Author Status No 03/28/2019 12:00 AM LAW PROFESSOR 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 Answer Date of Assessment Author Status No 03/28/2019 12:00 AM LAW PROFESSOR Acti ve * Do you have serious [...] st Contact Info) Description 02/15/2024 1:30 PM LAW PROFESSOR Office Visit [facility] [address] [place] [address] Tyrell Leiva PAHaylieC [address] [place] [address] 02/15/2024 1:30 PM LAW PROFESSOR Allied Health/Nurse Visit [facility] [address] [place] [address] [phone] Mary Barber MD [address] [place] [address] [phone] 03/15/2024 11:15 AM LAW PROFESSOR Office Visit [facility] [address] [place] [address] Jim Tamez MD [address] [place], [place] [address] 05/16/2024 1:15 AM CDT Allied Health/Nurse Visit [facility] [address] [place] [address] Mary Barber MD [address] [place] [address] 09/07/2024 9:00 AM CDT Office Visit [facility] [address] [place] [address] Tiffany Badillo MD [address] [place] [address] documented as of this encounter Visit Diagnoses Not on filedocumented in this encounter Care Teams Pediatric Nurse Practitioner Relationship Specialty Start Date End Date Qasim Garrett DO [address] [place] [address] PCP - General FAMILY PRACTICE 04/13/19 Mary Barber MD [address] [place] [address] EP Display Specialist CLINICAL CARDIAC ELECTROPHYSIOLOGY 09/15/16 Josey Schwartz AGACNP-BC [address] [place] [address] [phone] Nurse Practitioner Electrophysiology 09/18/16 12/22/19 documented as of this encounter
--- OUTSIDE RECORDS SUMMARY | 2024-01-27 07:55 | XMS_ITS | Encounter Summary ---
Author Organization [facility] Address [facility] [facility] [place] [address] [place] [address] Care Team Providers Care Health Promotion Specialist Name Role Phone Mary Barber MD Unavailable Thomas Brian MD Unavailable Unavailable Efren Jose[facility] Unavailable [phone] Reason for Visit * Reason Onset Date Comments Post-hospital Follow-up 04/04/2019 Encounter Details Date Type Department Care Team (Late st Contact Info) Description 04/04/2019 Telephone [facility] [address] [place] [address] Ottoniel Chauhan MD [address] [place] [address] Post-hospital Follow-up Social History Tobacco Use Types Packs/Day Years [...] Organization Meetings Never 03/27/2019 Marital Status 03/27/2019 [facility] of Occupat ional Health - Occupational [...] Assessment Author Status No 03/28/2019 12:00 AM MEDICAL SERVICE REPRESENTATIVE 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 Answer Date of Assessment Author Status No 03/28/2019 12:00 AM MEDICAL SERVICE REPRESENTATIVE Acti ve * Do you have serious [...] Date Author Status No 03/28/2019 12:00 AM MEDICAL SERVICE REPRESENTATIVE Jonas Garcia RN Active documented in this encounter Progress Notes * Cony Taylor Luciano - 04/13/2019 12:16 PM CST Appt confirmed with Sera for 04/27/19 12:30pm PDC. Reminder mailed. She reports Dr.Joshua Garrett is her new PCP since left. CAL SERVICE REPRESENTATIVE * Leo Wells RN - 04/04/2019 4:[address] Chauhan consulted on pt during recent admission at [facility], pt was discharged on 04/02/2019. Pt will need follow up with primary hospice superintendent, Dr Badillo, message to Dr. Badillo office. Pt is a former [facility] pt, at last clinic visit on 11/17/2018 Dr. Brian indicated care reassignment to Dr. Badilol, which pt wants to proceed with as she wants follow [facility] whereshe had previously followed with Dr. Brian. CAL SERVICE REPRESENTATIVE documented in this encounter Plan of Treatment Upcoming Encounters Date Type Department Care Team (Late st Contact Info) Description 02/15/2024 1:30 PM MEDICAL SERVICE REPRESENTATIVE [facility] [address] [place] [address] Tyrell Leiva, PAHaylieC [address] [place] [address] 02/15/2024 1:30 PM MEDICAL SERVICE REPRESENTATIVE Allied Health/Nurse Visit [facility] ld [address] [place] [address] Mary Barber MD [address] [place] [address] 03/15/2024 11:15 AM MEDICAL SERVICE REPRESENTATIVE Office Visit [facility] [address] [place] [address] Jim Tamez MD [address] [place] [address] 05/16/2024 1:15 AM CDT Allied Health/Nurse Visit [facility] [address] [place] [address] Mary Barber MD [address] [place] [address] 09/07/2024 9:00 AM CDT Office Visit [facility] [address] [place] [address] Tiffany Badillo MD [address] [place] [address] documented as of this encounter Visit Diagnoses Not on filedocumented in this encounter Care Teams Health Promotion Specialist Relationship Specialty Start Date End Date Mary Barber MD [address] [place] [address] EP Visual Merchandiser CLINICAL CARDIAC ELECTROPHYSIOLOGY 09/15/16 Thomas Brian MD [address] [place] [address] CARDIOVASCULAR DISEASE 09/16/16 04/12/19 [facility] [address] [place] [phone] Nurse Practitioner Electrophysiology 09/18/16 12/22/19 documented as of this encounter
--- OUTSIDE RECORDS SUMMARY | 2024-01-27 07:55 | XMS_ITS | Encounter Summary ---
Author Organization [facility] Address [address] [facility] [place] [address] [place] [address] Care Team Providers Care Raw Mill Operator Name Role Phone Mary Barber MD Unavailable Josey Schwartz AGACN- Unavailable [phone] Qasim Garrett DO Primary Care Provider [phone] Encounter Details Date Type Department Care Team (Late st Contact Info) Description 05/03/2019 Orders Only [facility] [address] [place] [address] Cony Wolf RN Social History [...] Organization Meetings Never 03/27/2019 Marital Status 03/27/2019 [facility] [place] of Occupat ional Health [...] Assessment Author Status No 03/28/2019 12:00 AM WELDER APPRENTICE 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 Answer Date of Assessment Author Status No 03/28/2019 12:00 AM WELDER APPRENTICE Acti ve * Do you have serious [...] st Contact Info) Description 02/15/2024 1:30 PM WELDER APPRENTICE [facility] [address] [place] [address] Tyrell Leiva PAHaylieC [address] [place] [address] 02/15/2024 1:30 PM WELDER APPRENTICE [facility] [address] [place] [address] Mary Barber MD [address] [place] [address] 03/15/2024 11:15 AM WELDER APPRENTICE Office Visit [facility] [address] [place] [address] Jim Tamez MD [address] [place] [address] [phone] 05/16/2024 1:15 AM CDT [facility] [address] [place] [address] Mary Barber MD [address] [place] [address] 09/07/2024 9:00 AM CDT Office Visit [facility] [place] [address] [place] [address] Tiffany Badillo MD [address] [place], [place] [address] [phone] documented as of this encounter Visit Diagnoses Not on filedocumented in this encounter Care Teams Raw Mill Operator Relationship Specialty Start Date End Date Qasim Garrett DO [address] [place] [address] PCP - General FAMILY PRACTICE 04/13/19 Mary Barber MD [address] [place] [address] EP Foundation Drill Operator Helper CLINICAL CARDIAC ELECTROPHYSIOLOGY 09/15/16 Josey Schwartz [facility] [address] [place] [address] [place] [phone] Nurse Practitioner Electrophysiology 09/18/16 12/22/19 documented as of this encounter
--- OUTSIDE RECORDS SUMMARY | 2024-01-27 07:55 | XMS_ITS | Encounter Summary ---
Author Organization [facility] Address [facility]. [place], [place] [address] [place] [address] Care Team Providers Care Pump Oiler Name Role Phone Mary Barber MD Unavailable Josey Schwartz AGACNP- Unavailable [phone] Qasim Garrett DO Primary Care Provider [phone] Reason for Visit * Reason Onset Date Comments Surgical Clearance 05/09/2019 Encounter Details Date Type Department Care Team (Late st Contact Info) Description 05/09/2019 Telephone [facility] [address] [place] [address] Tiffany Badillo MD [address] [place] [address] Surgical Clearance Social History Tobacco [...] Meetings Never 03/27/2019 Marital Status 03/27/2019 [facility] - Occupational [...] Assessment Author Status No 03/28/2019 12:00 AM ICING MIXER 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 Answer Date of Assessment Author Status No 03/28/2019 12:00 AM ICING MIXER Acti ve * Do you have [...] Progress Notes * Tiffany Badillo MD - 05/16/2019 12:19 PM CDT Did we took care of this? * Cony Wolf - 05/10/2019 12:56 PM CDT Sera notified she will need Nuc prior to ORIF of her ankle. Confirmed for tomorrow 7;15am SFL. Instructions given, questions answered. * Cony Wolf - 05/10/2019 12:32 PM CDT VM left for Sven to call me back. * Cony Wolf - 05/10/2019 12:22 PM CDT Please advise * Juany Mcdonald RN - 05/09/2019 2:00 PM CDT Sven with Dr Juarez at [facility] calling for surgical clearance, pt was to have Right foot surgery with bone graft on May 09 but now has been cancelled Please call Sven back at [phone] documented in this encounter Plan of Treatment Upcoming Encounters Date Type Department Care Team (Late st Contact Info) Description 02/15/2024 1:30 PM ICING MIXER Office Visit [facility] [address] [place] [address] Tyrell Leiva PA-C [address] [place] [address] 02/15/2024 1:30 PM ICING MIXER Allied Health/Nurse Visit [facility] [address] [place] [address] Mary Barber MD [address] [place] [address] 03/15/2024 11:15 AM ICING MIXER Office Visit [facility] [address] [place] [address] Jim Tamez MD [address] [place], [place] [address] 05/16/2024 1:15 AM CDT Allied Health/Nurse Visit [facility] [address] [place] [address] Mary Barber MD [address] [place] [address] 09/07/2024 9:00 AM CDT Office Visit [facility] [address] [place] [address] Tiffany Badillo MD [address] [place], [place] [address] documented as of this encounter Visit Diagnoses Not on filedocumented in this encounter Care Teams Pump Oiler Relationship Specialty Start Date End Date Qasim Garrett DO [address] [place] [address] PCP - General FAMILY PRACTICE 04/13/19 Mary Barber MD [address] [place] [address] EP Double Spindle Shaper Operator CLINICAL CARDIAC ELECTROPHYSIOLOGY 09/15/16 [facility] [address] [place] [address] Nurse Practitioner Electrophysiology 09/18/16 12/22/19 documented as of this encounter
--- OUTSIDE RECORDS SUMMARY | 2024-01-27 07:56 | XMS_ITS | Encounter Summary ---
Author Organization [facility] Address [address] [facility] [place] [address] [place] [address] Care Team Providers Care Computer Graphics Illustrator Name Role Phone Mary Barber MD Unavailable Thomas Brian MD Unavailable Unavailable [facility] Jose[facility] Unavailable [phone] Encounter Details Date Type Department Care Team (Latest Contact Info) Description 03/27/2019 Travel Social History Tobacco Use Types Packs/Day [...] Organization Meetings Never 03/27/2019 Marital Status 03/27/2019 [facility] [place] of Occupat ional Health - Occupational Stress [...] Answer Date of Assessment Author Status No 01/29/2019 6:02 AM BUSINESS ANALYST Activ e * RETIRED Are you blind or do you have serious difficulty seeing, even when wearing glasses? Answer Date of Assessment Author Status No 01/29/2019 6:02 AM BUSINESS ANALYST Activ e * Do you have serious difficulty walking or climbing stairs? Answer Date of Assessment Author Status No 01/29/2019 6:02 AM Brook Schultz RN Active * Do you have difficulty dressing or bathing? Answer Date of Assessment Author Status No 01/29/2019 6:02 AM Brook Schultz RN Active * Because of a physical, mental, or emotional condition, do you have difficulty doing errands alone such as visiting a doctor's office or shopping? Answer Date of Assessment Author Status No 01/29/2019 6:02 AM Brook Schultz RN Active documented as of this encounter Mental Status * Because of a physical, mental, or emotional condition, do you have serious difficulty concentrating, remembering, or making decisions? Answer Entry Date Author Status No 01/29/2019 6:02 AM Brook Schultz RN Active documented in this encounter Plan of Treatment Upcoming Encounters Date Type Department Care Team (Late st Contact Info) Description 02/15/2024 1:30 PM BUSINESS ANALYST Office Visit [facility] [address] [place] [address] Tyrell Leiva PA-C [address] [place] [address] 02/15/2024 1:30 PM BUSINESS ANALYST Allied Health/Nurse Visit [facility] ld [address] [place] [address] Mary Barber MD [address] [place] [address] 03/15/2024 11:15 AM BUSINESS ANALYST Office Visit [facility] [address] [place] [address] Jim Tamez MD [address] [place] [address] 05/16/2024 1:15 AM CDT Allied Health/Nurse Visit [facility] ld [address] [place] [address] Mary Barber MD [address] [place] [address] 09/07/2024 9:00 AM CDT Office Visit [facility] [address] [place] [address] Tiffany Badillo MD [address] [place] [address] documented as of this encounter Visit Diagnoses Not on filedocumented in this encounter Care Teams Computer Graphics Illustrator Relationship Specialty Start Date End Date Mary Barber MD [address] [place] [address] EP Tool Engineer CLINICAL CARDIAC ELECTROPHYSIOLOGY 09/15/16 Thomas Brian MD [address] [place] [address] CARDIOVASCULAR DISEASE 09/16/16 04/12/19 Josey Schwartz [facility] [address] [facility] [address] [place] [phone] Nurse Practitioner Electrophysiology 09/18/16 12/22/19 documented as of this encounter
--- OUTSIDE RECORDS SUMMARY | 2024-01-27 07:56 | XMS_ITS | Encounter Summary ---
Author Organization [facility] Address Counts include 234 beds at the [facility] [facility] [place] [address] [place] [address] Care Team Providers Care Surgical Endoscopist Name Role Phone Mary Barber MD Unavailable Thomas Brian MD Unavailable Unavailable Efren Josey AGACN- Unavailable Reason for Visit * Reason Comments ECG (SCAN) Encounter Details Date Type Department Care Team (Late st Contact Info) Description 03/27/2019 Scan [facility] [address] [place] [address] Scanned, Documents ECG (SCAN) Social History Tobacco Use Types Packs/Day [...] than three times a week 03/27/2019 Attends Spiritism Services Not on file 03/27 Active Member of Clubs or Organizations Not on f ile 03/27/2019 Attends Club or Organization Meetings Never 03/27/2019 Marital Status 03/27/2019 [facility] - Occupational Stress [...] have serious difficulty walking or climbing stairs? Yes 03/28/2019 12:00 AM Jonas Collins RN A ctive * Question Answer Date of Assessment Author Status Do you have difficulty dressing or bathing? No 03/28/2019 12:00 AM Jonas Collins RN Active Because of a physical, mental, or emotional condition, do you have difficulty doing errands alone such as visiting a doctor's office or shopping? No 03/28/2019 12:00 AM Jonas Collins RN Ac tive * RETIRED Are you deaf or do you have serious difficulty hearing Answer Date of Assessment Author Status No 01/29/2019 6:02 AM RACK CARRIER Activ e * RETIRED Are you blind or do you have serious difficulty seeing, even when wearing glasses? Answer Date of Assessment Author Status No 01/29/2019 6:02 AM RACK CARRIER Activ e * Do you have serious [...] difficulty concentrating, remembering, or making decisions? No 03/28/2019 12:00 AM Jonas Collins RN Active * Because of a physical, mental, or emotional condition, do you have serious difficulty concentrating, remembering, or making decisions? Answer Entry Date Author Status No 01/29/2019 6:02 AM Brook Schultz RN Active documented in this encounter Plan of Treatment Upcoming Encounters Date Type Department Care Team (Late st Contact Info) Description 02/15/2024 1:30 PM RACK CARRIER Office Visit [facility] [address] [place] [address] Tyrlel Leiva, PA-C [address] [place] [address] 02/15/2024 1:30 PM RACK CARRIER Allied Health/Nurse Visit [facility] [address] [place] [address] Mary Barber MD [address] [place] [address] 03/15/2024 11:15 AM RACK CARRIER Office Visit [facility] [place] [address] Jim Tamez MD [address] [place] [address] 05/16/2024 1:15 AM CDT Allied Health/Nurse Visit [facility] [address] [place] [address] Mary Barber MD [address] [place] [address] 09/07/2024 9:00 AM CDT Office Visit [facility] [address] [place] [address] Tiffany Badillo MD [address] [place] [address] documented as of this encounter Procedures Procedure Name Priority Date/Time Associated Diagnosis Comments CT GENERIC Routine 03/27/2019 ECG GENERIC (SCAN ORDER) Routine 03/27/2019 OUTSIDE LAB (SCAN ORDER) Routine 03/27/2019 documented in this encounter Results * OUTSIDE LAB (03/27/2019) 03/27/2019 us Documents Scanned SCANNING Final Result Performing Organization Address [facility] de Phone Number [facility] * CT (03/27/2019) Anatomical Region Laterality Modality Other us Documents Scanned SCANNING Final Result * ECG (03/27/2019) us Documents Scanned SCANNING Final Result Performing Organization Address [facility] Co de Phone Number [facility] documented in this encounter Visit Diagnoses Not on filedocumented in this encounter Care Teams Surgical Endoscopist Relationship Specialty Start Date End Date Mary Barber MD [address] [place] [address] EP Senior Trainer CLINICAL CARDIAC ELECTROPHYSIOLOGY 09/15/16 Thomas Brian MD [address] [place] [address] CARDIOVASCULAR DISEASE 09/16/16 04/12/19 Josey Schwartz [facility] [address] [facility] [address] [place] [phone] Nurse Practitioner Electrophysiology 09/18/16 12/22/19 documented as of this encounter
--- OUTSIDE RECORDS SUMMARY | 2024-01-27 07:56 | XMS_ITS | Encounter Summary ---
Author Organization [facility] Address [facility] [place] [address] [place] [address] Care Team Providers Care Full Stack Engineer Name Role Phone Mary Barber MD Unavailable Thomas Brian MD Unavailable Unavailable [facility] Unavailable [phone] Reason for Visit * Reason Comments Hospital H&P (SCAN) Encounter Details Date Type Department Care Team (Late st Contact Info) Description 03/22/2019 Scan [facility] [address] [place] [address] Scanned, Documents Hospital H&P (SCAN) Social History Tobacco Use Types Packs/Day [...] 03/27/2019 Marital Status 03/27/2019 [facility] Occupat ional Health - Occupational Stress [...] Assessment Author Status No 01/29/2019 6:02 AM MANPOWER DEVELOPMENT ADVISOR Activ e * RETIRED Are you blind or do you have serious difficulty seeing, even when wearing glasses? Answer Date of Assessment Author Status No 01/29/2019 6:02 AM MANPOWER DEVELOPMENT ADVISOR Activ e * Do you have serious [...] Author Status No 01/29/2019 6:02 AM Brook Schlutz RN Active documented in this encounter Plan of Treatment Upcoming Encounters Date Type Department Care Team (Late st Contact Info) Description 02/15/2024 1:30 PM MANPOWER DEVELOPMENT ADVISOR Office Visit [facility] ld [address] [place] [address] Tyrell Leiva PAHaylieC [address] [place] [address] 02/15/2024 1:30 PM MANPOWER DEVELOPMENT ADVISOR Allied Health/Nurse Visit [facility] ld [address] [place] [address] Mary Barber MD [address] [place] [address] 03/15/2024 11:15 AM MANPOWER DEVELOPMENT ADVISOR Office Visit [facility] [place] [address] Jim Tamez MD [address] [place] [address] 05/16/2024 1:15 AM CDT Allied Health/Nurse Visit [facility] ld [address] [place] [address] Mary Barber MD [address] [place] [address] 09/07/2024 9:00 AM CDT Office Visit [facility] [place] [address] Tiffany Badillo MD [address] [place] [address] documented as of this encounter Visit Diagnoses Not on filedocumented in this encounter Care Teams Full Stack Engineer Relationship Specialty Start Date End Date Mary Barber MD [address] [place] [address] EP Turret Lathe Operator CLINICAL CARDIAC ELECTROPHYSIOLOGY 09/15/16 Thomas Brian MD [address] [place] [address] CARDIOVASCULAR DISEASE 09/16/16 04/12/19 Josey Schwartz [facility] [address] [place] [address] [place] [phone] Nurse Practitioner Electrophysiology 09/18/16 12/22/19 documented as of this encounter
--- OUTSIDE RECORDS SUMMARY | 2024-01-27 07:56 | XMS_ITS | Encounter Summary ---
Author Organization [facility] Address [address] [place] [address] [place] [address] Care Team Providers Care [employer] Name Role Phone Mary Barber MD Unavailable Thomas Brian MD Unavailable Unavailable Nkechi Schwartz [facility] Unavailable [phone] Reason for Visit * Reason Comments Follow Up AFib, CMP, PVC's & B S Bi-V ICD Encounter Details Date Type Department Care Team (Latest Contact Info) Description 05/21/2018 11:30 AM CDT Office Visit [facility] [address] [place] [address] Nkechi Schwartz [facility] [address] [facility] [address] [place] [address] Follow Up (AFib, CMP, PVC's & BS Bi-V ICD) Social History Tobacco Use Types Packs/Day Years Used Date Smoking Tobacco: Former Cigarettes Q uit: 09/23/1971 Smokeless Tobacco: Never Alcohol Use Standard Drinks/Week Comments No 0 (1 standard drink = 0.6 oz pur e alcohol) Comments Unknown Sex and Gender Information Value Date Recorded [...] Sign Reading Time Taken Comments Blood Pressure 126/70 05/21/2018 11:26 AM CDT Pulse 101 05/21/2018 11:26 AM CDT EKG Temperature - - Respiratory Rate 17 05/21/2018 11:26 AM CDT Oxygen Saturation - - Inhaled Oxygen Concentration - - Weight 81.2 kg (179 lb) 05/21/2018 11:26 AM CDT Height 162.6 cm (5' 4 ) 05/21/2018 11:26 AM CDT Body Mass Index 30.73 05/21/2018 11:26 AM CDT documented in this encounter Progress Notes * Nkechi Schwartz, EMERGENCY MEDICAL TECH - 05/21/2018 11:30 AM CDT Cardiac Electrophysiology Clinic Note PATIENT NAME: Sera Shaffer : 1935 REFERRING PROVIDER: Donita Mack PCP: BEE BEVERLY MD Reason for Visit ?? Atrial fibrillation, ICD History of Present Illness ?? Ms. Shaffer is a very pleasant, 83-year-old lady with a history of paroxysmal atrial fibrillation with rapid ventricular response, refractory to medical therapy. She underwent ablation of the AV nodeand implantation of a dual-chamber [employer] pacemaker in April 2006. She used to be on Coumadin for stroke prevention; however, this was stopped in 2007 due to a subdural hematoma requiring evacuation. The patient developed severe nonischemic cardiomyopathy, likely induced by right ventricular pacing, prompting upgrade of the pacemaker to a biventricular [employer] ICD in March 2013. ?? Because of intolerance to Coumadin therapy due to intracranial bleeding, the patient underwent percutaneous ligation of the left atrial appendage using a Lariat device on 10/19/2013. She tolerated the procedure well without complications. ?? Ms. Shaffer returns to clinic for followup today and reports she has been feeling fairly well over the last several months. She had quite a bit of difficulty after a knee replacement surgery in February. She is able to walk short distances and denies exertional chest pain or shortness of breath. Shealso denies any palpitations, dizziness, syncope, orthopnea or leg edema. Her primary complaint isthat she has no energy and gets tired easily. She has no pain or swelling at the ICD pocket and hashad no ICD shock. ECG ?? EKG done today was reviewed that showed atrial fibrillation with ventricular pacing. ?? Device Interrogation ?? We interrogated the device today and that showed a [employer] biventricular ICD with good battery voltage and satisfactory pacing and sensing thresholds. ?? Underlying rhythm was atrial fibrillation with complete AV block. There is a 7% burden of atrial fibrillation. No sustained ventricular arrhythmias are noted. Diagnosis ?? 1. Paroxysmal atrial fibrillation with rapid ventricular response, refractory to medical therapy. Status post ablation of the AV node and implantation of a dual- chamber [employer] pacemaker inApril 2006. The patient continues to have low burden of paroxysmal atrial fibrillation which has not been symptomatic. [place] of atrial arrhythmias with 7% over the last 1.5 years. 2. Status post upgrade of pacemaker to a [employer] biventricular ICD in March 2013. Device is of normal function in clinic today. 3. Intolerance to Coumadin due to subdural hematoma, requiring evacuation in June 2007. 4. Status post percutaneous ligation of left atrial appendage using LARIAT device on 10/19/2013. 5. Severe nonischemic cardiomyopathy with ejection fraction of 34% in the past, likely induced by right ventricular pacing. Ejection fraction improved later on, and was 40-45% on most recent echocardiogram from 2018. 6. Premature ventricular contractions. Holter monitor in the past revealed rare PVCs. Device interrogation today suggest low burden of PVCs. 7. Hypertension. Blood pressure is well controlled in clinic today. 8 Hypothyroidism. 9. No known history of coronary artery disease, diabetes, or stroke. ?? Recommendations ?? 1. We will make no changes to the patient's medications at this time. 2. If atrial fibrillation recurs more frequently or becomes persistent and symptomatic in the future, would consider antiarrhythmic medications. 3. We will plan to follow patient our clinic in 1 year, earlier as needed. She is to continue with remote device interrogations as scheduled. Medications ?? Current Outpatient Medications: ??? aspirin 81 MG tablet, Take by mouth daily., Disp: , Rfl: ??? levothyroxine 75 MCG tablet, Take 75 mcg by mouth daily., Disp: , Rfl: ??? LISINOPRIL 5 MG tablet, TAKE ONE TABLET BY MOUTH ONCE DAILY, Disp: 90 tablet, Rfl: 3 ??? METOPROLOL SUCCINATE 50 MG 24 hr tablet, TAKE 1 AND 1/2 TABLETS (75 MG TOTAL) BY MOUTH DAILY., Disp: 135 tablet, Rfl: 3 ??? Multiple Vitamins-Minerals (CENTRUM ADULTS OR), Take 1 tablet by mouth daily., Disp: , Rfl: ??? omeprazole 20 MG capsule, Take 20 mg by mouth daily as needed., Disp: , Rfl: 2 ??? ROSUVASTATIN 40 MG tablet, TAKE 1 TABLET BY MOUTH EVERY DAY, Disp: 90 tablet, Rfl: 0 ??? triamterene-hydrochlorothiazide 37.5-25 MG tablet, Take 1 tablet by mouth daily., Disp: , Rfl: Allergies Allergies Allergen Reactions ??? Hydrocodone-Acetaminophen Unknown ??? Levofloxacin Unknown ??? Oxycodone Unknown ??? Penicillins Unknown Past History ?? Past Medical History: Diagnosis Date ??? Atrial fibrillation (HCC) ??? Hyperlipidemia ??? Hypertension ??? Hypothyroidism ??? TIA (transient ischemic attack) Came in for possible TIA today Past Surgical History: Procedure Laterality Date ??? ELECTROPHYSIOLOGY EVALUATION 10/19/2013 left atrial appendage percutaneous ligation ??? HC ICD BI VENTRICULAR GENERATOR 04/04/2013 ??? OTHER PROCEDURE AVJ ablation dc ppm Social History Tobacco Use ??? Smoking status: Former Smoker Types: Cigarettes Last attempt to quit: 09/23/1971 Years since quittin.6 ??? Smokeless tobacco: Never Used Substance Use Topics ??? Alcohol use: No ??? Drug use: No Family History Problem Relation Name Age of Onset ??? [place] Mother ??? [place] Father ??? CABG Brother ??? Stent Brother ??? Stroke Paternal Grandfather ??? Heart Disease Other premature coronary heart disease Review of Systems Review of Systems Constitutional: Positive for malaise/fatigue. Negative for diaphoresis and weight loss. HENT: Negative for hearing loss and nosebleeds. Eyes: Negative for blurred vision and double vision. Respiratory: Negative for cough, shortness of breath and wheezing. Cardiovascular: See HPI Gastrointestinal: Negative for abdominal pain, blood in stool, constipation, heartburn, melena, nausea and vomiting. Genitourinary: Negative for dysuria and hematuria. Musculoskeletal: Positive for joint pain. Negative for myalgias. Skin: Negative for rash. Neurological: Negative for dizziness, tingling, focal weakness, loss of consciousness, weakness andheadaches. Endo/Heme/Allergies: Negative for polydipsia. Does not bruise/bleed easily. Psychiatric/Behavioral: Negative for depression and memory loss. The patient is not nervous/anxious. Physical Examination Vitals: 05/21/18 1126 BP: 126/70 Pulse: 101 Resp: 17 Physical Exam Constitutional: She is oriented to person, place, and time. She appears well- developed and well-nourished. No distress. HENT: Mouth/Throat: Oropharynx is clear and moist. Eyes: Conjunctivae are normal. Neck: Neck supple. Normal carotid pulses and no JVD present. Carotid bruit is not present. Cardiovascular: Normal rate, regular rhythm, normal heart sounds and normal pulses. PMI is not displaced. No murmur heard. Pulses: Dorsalis pedis pulses are 2+ on the right side, and 2+ on the left side. Pulmonary/Chest: Effort normal and breath sounds normal. Abdominal: Soft. Normal aorta and bowel sounds are normal. She exhibits no abdominal bruit and no mass. There is no hepatosplenomegaly. There is no tenderness. Musculoskeletal: She exhibits no edema. Neurological: She is alert and oriented to person, place, and time. Neuro exam grossly normal. Skin: Skin is warm and dry. No rash noted. No cyanosis. Nails show no clubbing. Psychiatric: She has a normal mood and affect. Vitals reviewed. PINNACLE Documentation Completed: Atrial Fibrillation and Atrial Flutter Assessment ??? The patient has paroxysmal atrial fibrillation ??? The patient's CHADS2-VASc score is 5 ??? A [id number] score of 2 or more is considered a high risk for a thromboembolic event ??? S/p CHANNING closure with Lariat Plan ??? Continue in atrial fibrillation with rate control ??? Continue beta rodolfo for rate control Signed NKECHI SCHWARTZ APRN 05/21/2018 documented in this encounter Plan of Treatment Upcoming Encounters Date Type Department Care Team (Late st Contact Info) Description 02/15/2024 1:30 PM NUDE MODEL Office Visit [facility] [address] [place] [address] Tyrell Leiva, [facility] [address] [place] [phone] 02/15/2024 1:30 PM NUDE MODEL Allied Health/Nurse Visit [facility] [address] [place] [phone] Mary Barber MD [address] [place] [phone] 03/15/2024 11:15 AM NUDE MODEL Office Visit [facility] [address] [place] [address] Jim Tamez MD [address] [place], [place] [address] 05/16/2024 1:15 AM CDT Allied Health/Nurse Visit [facility] [address] [place] [address] [phone] Mary Barber MD [address] [place] [phone] 09/07/2024 9:00 AM CDT Office Visit [address] [place] [phone] Tiffany Badillo MD [address] [place] [address] documented as of this encounter Visit Diagnoses Diagnosis Paroxysmal atrial fibrillation (CMS/HCC HHS/HCC)- Primary Atrial fibrillation NICM (nonischemic cardiomyopathy) (CMS/HCC HHS/HCC) Other primary cardiomyopathies Premature ventricular contractions Other premature beats Biventricular ICD (implantable cardioverter-defibrillator) in place documented in this encounter Care Teams [employer] Relationship Specialty Start Date End Date Mary Barber MD [address] [place] [phone] EP [employer] CLINICAL CARDIAC ELECTROPHYSIOLOGY 09/15/16 Thomas Brian MD [address] [place] [address] CARDIOVASCULAR DISEASE 09/16/16 04/12/19 [facility] [address] [place] [id number] Nurse Practitioner Electrophysiology 09/18/16 12/22/19 documented as of this encounter
--- OUTSIDE RECORDS SUMMARY | 2024-01-27 07:56 | XMS_ITS | Encounter Summary ---
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 Phone Number [facility] [address] [place] [address], [place] [phone] * PHOSPHORUS, INORGANIC PHOSPHATE (03/31/2019 4:46 AM [facility]) PHOSPHORUS 3.3 2.5 - 4.9 MG/DL 03/31/2019 5:32 AM [facility] 03/31/2019 4:46 AM [facility] Manoj Moore MD LABORATORY Gale l Result Performing Organization Address [facility]/ZIP Co de Phone Number [facility] [address] [place] [address], [place] [phone] * MAGNESIUM (03/31/2019 4:46 AM [facility]) MAGNESIUM 1.9 1.6 - 2.6 MG/DL 03/31/2019 5:32 AM [facility] 03/31/2019 4:46 AM [facility] Manoj Moore MD LABORATORY Gale l Result Performing Organization Address [facility]/ZIP Co de Phone Number [facility] [address] [place] [address], [place] [phone] * (ABNORMAL) BASIC METABOLIC PANEL (03/31/2019 4:46 AM [facility]) SODIUM S/P/B 137 136 - 145 MMOL/L 03/31/2019 5:32 AM [facility] POTASSIUM S/P/B 3.6 3.5 - 5.1 MMOL/L 03/31/2019 5:32 AM [facility] CHLORIDE S/P/B 106 98 - 107 MMOL/L 03/31/2019 5:32 AM [facility] CO2 23.1 21.0 - 32.0 MMOL/L 03/31/2019 5:32 AM [facility] GLUCOSE 113(H) 74 - 106 MG/DL 03/31/2019 5:32 AM [facility] BUN 16 7 - 18 MG/DL 03/31/2019 5:32 AM [facility] CREATININE S/P/B 0.94 0.55 - 1.02 MG/DL 03/31/2019 5:32 AM [facility] CALCIUM S/P/B 8.9 8.5 - 10.1 MG/DL 03/31/2019 5:32 AM [facility] ANION GAP 7.9 5.0 - 15.0 MMOL/L 03/31/2019 5:32 AM [facility] Comment:REFERENCE RANGE NOT ESTABLISHED OSMOLALITY (CALC) 286 MOSM/KG 020 5:32 AM [facility] Comment:REFERENCE RANGE NOT ESTABLISHED EGFR NON-AFR. AMER. 56(L) >90 ML/MIN/1. 73 M2 03/31/2019 5:32 AM [facility] EGFR AFR. AMER. 65(L) >90 ML/MIN/1. 73 M2 03/31/2019 5:32 AM [facility] GFR NOTES GFR REFERENCE S: 03/31/2019 5:32 AM [facility] Comment: THE ESTIMATED GFR IS CALCULATED [...] ml/min/1.73 m2 G5,KIDNEY FAILURE: <15 ml/min/1.73 m2 03/31/2019 4:46 AM [facility] us Manoj Moore MD LABORATORY Gale l Result [facility] [address] [place] [address], [phone] * (ABNORMAL) CBC W/DIFF AUTOMATED (03/31/2019 4:46 AM [facility]) WBC 9.1 4.0 - 10.8 x10'3/uL 03/31/2019 5:02 AM [facility] RBC 3.34(L) 4.10 - 5.40 x10'6/uL 03/31/2019 5:02 AM [facility] HGB 10.4(L) 12.0 - 16.0 G/DL 03/31/2019 5:02 AM [facility] HCT 31.9(L) 36.0 - 47.0 % 03/31/2019 5:02 AM [facility] MCV 95.5 78.0 - 100.0 FL 03/31/2019 5:02 AM [facility] MCH 31.1(H) 27.0 - 31.0 PG 03/31/2019 5:02 AM [facility] MCHC 32.6(L) 33.0 - 36.0 G/DL 03/31/2019 5:02 AM [facility] RDW 13.7 11.5 - 14.5 % 03/31/2019 5:02 AM [facility] PLT 199 150 - 350 x10'3/uL 03/31/2019 5:02 AM [facility] MPV 8.9 7.4 - 10.4 FL 03/31/2019 5:02 AM [facility] ABS. NEUTROPHILS TOTAL 7.15 1.60 - 8.30 x10'3/uL 03/31/2019 5:02 AM [facility] ABS. LYMPHOCYTES 1.08 0.80 - 4.70 x10'3/uL 03/31/2019 5:02 AM [facility] ABS. MONOCYTES 0.70 0.00 - 1.50 x10'3/uL 03/31/2019 5:02 AM [facility] ABS. EOSINOPHILS 0.06 0.00 - 0.40 x10'3/uL 03/31/2019 5:02 AM [facility] ABS. BASOPHILS 0.02 0.00 - 0.20 x10'3/uL 03/31/2019 5:02 AM [facility] ABS. IMMATURE GRANULOCYTES 0.05(H) 0.00 - 0.03 x10'3/uL 03/31/2019 5:02 AM [facility] ABS. NUCLEATED RBC'S 0.00 0.0 x10'3/uL 03/31/2019 5:02 AM [facility] 03/31/2019 4:46 AM [facility] Manoj Moore MD LABORATORY Gale l Result Performing Organization Address City/[facility]/ZIP Co de Phone Number [facility] [address] [place] [address], [phone] * PROTIME/INR, VENOUS (03/30/2019 4:25 AM [facility]) PROTIME 13.9 11.6 - 14.3 SEC 03/30/2019 4:54 AM [facility] INR 1.1 0.9 - 1.1 03/30/2019 4:54 AM [facility] 03/30/2019 4:25 AM [facility] Manoj Moore MD LABORATORY Gale l Result Performing Organization Address [facility]/ZIP Co de Phone Number [facility] [address] [place] [address], [place] [phone] * PHOSPHORUS, INORGANIC PHOSPHATE (03/30/2019 4:25 AM [facility]) PHOSPHORUS 3.0 2.5 - 4.9 MG/DL 03/30/2019 5:12 AM [facility] 03/30/2019 4:25 AM [facility] Manoj Moore MD LABORATORY Gale l Result Performing Organization Address [facility] Co de Phone Number [facility] [address] [place] [address], [place] [phone] * (ABNORMAL) PARTIAL THROMBOPLASTIN TIME,PTT (03/30/2019 4:25 AM [facility]) PTT 78.5(H) 22.0 - 35.0 SEC 03/30/2019 4:56 AM [facility] 03/30/2019 4:25 AM [facility] Manoj Moore MD LABORATORY Gale l Result Performing Organization Address [facility] Co de Phone Number [facility] [address] [place] [address], [place] [phone] * MAGNESIUM (03/30/2019 4:25 AM [facility]) MAGNESIUM 1.9 1.6 - 2.6 MG/DL 03/30/2019 5:12 AM [facility] Comment:RESULT QUESTIONABLE DUE TO HEMOLYSIS, RECOMMEND RECOLLECTION. 03/30/2019 4:25 AM [facility] Manoj Moore MD LABORATORY Gale l Result Performing Organization Address [facility] Co de Phone Number [facility] [address] [place] [address], [place] [phone] * (ABNORMAL) COMPREHENSIVE METABOLIC PANEL (03/30/2019 4:25 AM [facility]) SODIUM S/P/B 139 136 - 145 MMOL/L 03/30/2019 5:12 AM [facility] POTASSIUM S/P/B 4.3 3.5 - 5.1 MMOL/L 03/30/2019 5:12 AM [facility] Comment:MILD HEMOLYSIS, RESU LT MAY BE AFFECTED. CHLORIDE S/P/B 108(H) 98 - 107 MMOL/L 03/30/2019 5:12 AM [facility] CO2 25.1 21.0 - 32.0 MMOL/L 03/30/2019 5:12 AM [facility] GLUCOSE 110(H) 74 - 106 MG/DL 03/30/2019 5:12 AM [facility] BUN 15 7 - 18 MG/DL 03/30/2019 5:12 AM [facility] CREATININE S/P/B 0.90 0.55 - 1.02 MG/DL 03/30/2019 5:12 AM [facility] CALCIUM S/P/B 8.3(L) 8.5 - 10.1 MG/DL 03/30/2019 5:12 AM [facility] BILIRUBIN TOTAL S/P/B 1.1(H) 0.2 - 1.0 MG/DL 03/30/2019 5:12 AM [facility] ALKALINE PHOSPHATASE S/P/B 76 55 - 142 U/L 03/30/2019 5:12 AM [facility] AST 33 15 - 37 U/L 03/30/2019 5:12 AM [facility] Comment:RESULT QUESTIONABLE DUE TO HEMOLYSIS, CONSIDER RECOLLECTION. ALT 15 13 - 56 U/L 03/30/2019 5:12 AM [facility] TOTAL PROTEIN S/P/B 6.7 6.4 - 8.2 G/DL 03/30/2019 5:12 AM [facility] ALBUMIN S/P/B 2.5(L) 3.4 - 5.0 G/DL 03/30/2019 5:12 AM [facility] ANION GAP 5.9 5.0 - 15.0 MMOL/L 03/30/2019 5:12 AM [facility] Comment:REFERENCE RANGE NOT ESTABLISHED OSMOLALITY (CALC) 289 MOSM/KG 020 5:12 AM [facility] Comment:REFERENCE RANGE NOT ESTABLISHED EGFR NON-AFR. AMER. 59(L) >90 ML/MIN/1. 73 M2 03/30/2019 5:12 AM [facility] EGFR AFR. AMER. 68(L) >90 ML/MIN/1. 73 M2 03/30/2019 5:12 AM [facility] GFR NOTES GFR REFERENCE S: 03/30/2019 5:12 AM [facility] Comment: THE ESTIMATED GFR IS CALCULATED [...] ml/min/1.73 m2 G5,KIDNEY FAILURE: <15 ml/min/1.73 m2 03/30/2019 4:25 AM [facility] us Manoj Moore MD LABORATORY Gale das Result [facility] [address] [place] [address], [phone] * (ABNORMAL) CBC W/DIFF AUTOMATED (03/30/2019 4:25 AM [facility]) WBC 8.9 4.0 - 10.8 x10'3/uL 03/30/2019 4:41 AM [facility] RBC 3.47(L) 4.10 - 5.40 x10'6/uL 03/30/2019 4:41 AM [facility] HGB 10.9(L) 12.0 - 16.0 G/DL 03/30/2019 4:41 AM [facility] HCT 33.4(L) 36.0 - 47.0 % 03/30/2019 4:41 AM [facility] MCV 96.3 78.0 - 100.0 FL 03/30/2019 4:41 AM [facility] MCH 31.4(H) 27.0 - 31.0 PG 03/30/2019 4:41 AM [facility] MCHC 32.6(L) 33.0 - 36.0 G/DL 03/30/2019 4:41 AM [facility] RDW 13.7 11.5 - 14.5 % 03/30/2019 4:41 AM [facility] PLT 227 150 - 350 x10'3/uL 03/30/2019 4:41 AM [facility] MPV 9.3 7.4 - 10.4 FL 03/30/2019 4:41 AM [facility] ABS. NEUTROPHILS TOTAL 7.31 1.60 - 8.30 x10'3/uL 03/30/2019 4:41 AM [facility] ABS. LYMPHOCYTES 0.88 0.80 - 4.70 x10'3/uL 03/30/2019 4:41 AM [facility] ABS. MONOCYTES 0.55 0.00 - 1.50 x10'3/uL 03/30/2019 4:41 AM [facility] ABS. EOSINOPHILS 0.10 0.00 - 0.40 x10'3/uL 03/30/2019 4:41 AM [facility] ABS. BASOPHILS 0.03 0.00 - 0.20 x10'3/uL 03/30/2019 4:41 AM [facility] ABS. IMMATURE GRANULOCYTES 0.03 0.00 - 0.03 x10'3/uL 03/30/2019 4:41 AM [facility] ABS. NUCLEATED RBC'S 0.00 0.0 x10'3/uL 03/30/2019 4:41 AM [facility] 03/30/2019 4:25 AM [facility] Manoj Moore MD LABORATORY Gale l Result [facility] [address] [place] [address], [phone] * ECG 12 lead (03/29/2019 5:34 AM [facility]) 03/29/2019 5:34 AM [facility] Narrative [facility] - 03/29/2019 6:37 AM GR[facility]LINEMAN ? [facility] ?[address] [place], [place] ??[address] ? Test Date: ?2019-03-29 Pat Name: ? RAKAN SHAFFER ?Department: ? Room: ? [id number] Gender: ? Female ? Information Systems Auditor: ?? [place] : ?[id number] ? Requested By: MANOJ MOORE Order Number: [id number] ? Reading MD: ?? Nolan Ortez ? Measurements Intervals ?[place] ? Rate: ? 79 ? P: ? UT: ? 0 ?QRS: ?134 QRSD: ? 139 ?T: ?3 QT: ? 452 ? QTc: ?521 ? Interpretive Statements ELECTRONIC VENTRICULAR PACEMAKER NDMAN/LINEMAN Procedure Note Nolan Ortez MD - 03/29/2019 [place] [address] [place] [address] Test Date: 2019-03-29 Pat Name: RAKAN SHAFFER Department: Room: [place] [address] Gender: Female Information Systems Auditor: ELISSA : [id number] Requested By: ELIJAH Order Number: [id number] Reading MD: Nolan Ortez Measurements Intervals [place] Rate: 79 P: UT: 0 QRS: 134 QRSD: 139 T: 3 QT: 452 QTc: 521 Interpretive Statements ELECTRONIC VENTRICULAR PACEMAKER NDMAN/LINEMAN us Manoj Moore MD ECG ORDERABLES Gale l Result Performing Organization Address City/[facility] Co de Phone Number [facility] * PROTIME/INR, VENOUS (03/29/2019 3:23 AM [facility]) PROTIME 13.9 11.6 - 14.3 SEC 03/29/2019 4:01 AM [facility] INR 1.1 0.9 - 1.1 03/29/2019 4:01 AM [facility] 03/29/2019 3:23 AM [facility] us Manoj Moore MD LABORATORY Gale l Result Performing Organization Address [facility] Co de Phone Number [facility] [address] [place] [address], [phone] * PHOSPHORUS, INORGANIC PHOSPHATE (03/29/2019 3:23 AM [facility]) PHOSPHORUS 3.3 2.5 - 4.9 MG/DL 03/29/2019 4:17 AM [facility] 03/29/2019 3:23 AM [facility] us Manoj Moore MD LABORATORY Gale l Result Performing Organization Address [facility] Co de Phone Number [facility] [address] [place] [address], [phone] * (ABNORMAL) PARTIAL THROMBOPLASTIN TIME,PTT (03/29/2019 3:23 AM [facility]) PTT 86.4(H) 22.0 - 35.0 SEC 03/29/2019 4:03 AM [facility] 03/29/2019 3:23 AM [facility] Manoj Moore MD LABORATORY Gael l Result Performing Organization Address City/[facility]/ZIP Co de Phone Number [facility] [address] [place] [address], [phone] * MAGNESIUM (03/29/2019 3:23 AM GR[facility]EMAN) Pathologist [facility] MAGNESIUM 2.1 1.6 - 2.6 MG/DL 03/29/2019 4:17 AM [facility] 03/29/2019 3:23 AM [facility] Manoj Moore MD LABORATORY Gale l Result Performing Organization Address [facility] Co de Phone Number [facility] [address] [place] [address], [place] [phone] * LACTIC ACID (03/29/2019 3:23 AM [facility]) LACTIC ACID VENOUS 1.1 0.4 - 2.0 MMOL/L 03/29/2019 4:29 AM [facility] 03/29/2019 3:23 AM [facility] us Manoj Moore MD LABORATORY Gale l Result Performing Organization Address City/[facility]/ZIP Co de Phone Number [facility] [address] [place] [address], [place] [phone] * (ABNORMAL) COMPREHENSIVE METABOLIC PANEL (03/29/2019 3:23 AM [facility]) SODIUM S/P/B 142 136 - 145 MMOL/L 03/29/2019 4:17 AM [facility] POTASSIUM S/P/B 4.0 3.5 - 5.1 MMOL/L 03/29/2019 4:17 AM [facility] CHLORIDE S/P/B 111(H) 98 - 107 MMOL/L 03/29/2019 4:17 AM [facility] CO2 24.5 21.0 - 32.0 MMOL/L 03/29/2019 4:17 AM [facility] GLUCOSE 95 74 - 106 MG/DL 03/29/2019 4:17 AM [facility] BUN 17 7 - 18 MG/DL 03/29/2019 4:17 AM [facility] CREATININE S/P/B 0.97 0.55 - 1.02 MG/DL 03/29/2019 4:17 AM [facility] CALCIUM S/P/B 8.3(L) 8.5 - 10.1 MG/DL 03/29/2019 4:17 AM [facility] BILIRUBIN TOTAL S/P/B 0.5 0.2 - 1.0 MG/DL 03/29/2019 4:17 AM [facility] ALKALINE PHOSPHATASE S/P/B 74 55 - 142 U/L 03/29/2019 4:17 AM [facility] AST 20 15 - 37 U/L 03/29/2019 4:17 AM [facility] ALT 14 13 - 56 U/L 03/29/2019 4:17 AM [facility] TOTAL PROTEIN S/P/B 6.4 6.4 - 8.2 G/DL 03/29/2019 4:17 AM [facility] ALBUMIN S/P/B 2.5(L) 3.4 - 5.0 G/DL 03/29/2019 4:17 AM [facility] ANION GAP 6.5 5.0 - 15.0 MMOL/L 03/29/2019 4:17 AM [facility] Comment:REFERENCE RANGE NOT ESTABLISHED OSMOLALITY (CALC) 295 MOSM/KG 020 4:17 AM [facility] Comment:REFERENCE RANGE NOT ESTABLISHED EGFR NON-AFR. AMER. 54(L) >90 ML/MIN/1. 73 M2 03/29/2019 4:17 AM [facility] EGFR AFR. AMER. 62(L) >90 ML/MIN/1. 73 M2 03/29/2019 4:17 AM [facility] GFR NOTES GFR REFERENCE S: 03/29/2019 4:17 AM [facility] Comment: THE ESTIMATED GFR IS CALCULATED [...] ml/min/1.73 m2 G5,KIDNEY FAILURE: <15 ml/min/1.73 m2 03/29/2019 3:23 AM [facility] Manoj Moore MD LABORATORY Gale l Result [facility] [address] [place] [address], [place] [phone] * (ABNORMAL) CBC W/DIFF AUTOMATED (03/29/2019 3:23 AM [facility]) WBC 7.0 4.0 - 10.8 x10'3/uL 03/29/2019 3:39 AM [facility] RBC 3.37(L) 4.10 - 5.40 x10'6/uL 03/29/2019 3:39 AM [facility] HGB 10.7(L) 12.0 - 16.0 G/DL 03/29/2019 3:39 AM [facility] HCT 32.5(L) 36.0 - 47.0 % 03/29/2019 3:39 AM [facility] MCV 96.4 78.0 - 100.0 FL 03/29/2019 3:39 AM [facility] MCH 31.8(H) 27.0 - 31.0 PG 03/29/2019 3:39 AM [facility] MCHC 32.9(L) 33.0 - 36.0 G/DL 03/29/2019 3:39 AM [facility] RDW 13.5 11.5 - 14.5 % 03/29/2019 3:39 AM [facility] PLT 203 150 - 350 x10'3/uL 03/29/2019 3:39 AM [facility] MPV 8.8 7.4 - 10.4 FL 03/29/2019 3:39 AM [facility] ABS. NEUTROPHILS TOTAL 4.90 1.60 - 8.30 x10'3/uL 03/29/2019 3:39 AM [facility] ABS. LYMPHOCYTES 1.36 0.80 - 4.70 x10'3/uL 03/29/2019 3:39 AM [facility] ABS. MONOCYTES 0.49 0.00 - 1.50 x10'3/uL 03/29/2019 3:39 AM [facility] ABS. EOSINOPHILS 0.17 0.00 - 0.40 x10'3/uL 03/29/2019 3:39 AM [facility] ABS. BASOPHILS 0.02 0.00 - 0.20 x10'3/uL 03/29/2019 3:39 AM [facility] ABS. IMMATURE GRANULOCYTES 0.02 0.00 - 0.03 x10'3/uL 03/29/2019 3:39 AM [facility] ABS. NUCLEATED RBC'S 0.00 0.0 x10'3/uL 03/29/2019 3:39 AM [facility] 03/29/2019 3:2 3 AM [facility] Manoj Moore MD LABORATORY Gale l Result Performing Organization Address [facility] de Phone Number [facility] [address] [place] [address], [phone] * (ABNORMAL) CARDIAC PROFILE (CK,CKMB,TROP) (03/29/2019 3:23 AM [facility]) CPK 43 26 - 192 U/L 03/29/2019 4:17 AM [facility] CK-MB <1.0 0.5 - 3.6 NG/ML 03/29/2019 4:17 AM [facility] TROPONIN I 0.071(H) <0.045 ng/mL. 03/29/2019 4:17 AM [facility] 03/29/2019 3:23 AM [facility] Manoj Moore MD LABORATORY Gale l Result Performing Organization Address [facility] Co de Phone Number [facility] [address] [place] [address], [place] [phone] * (ABNORMAL) PARTIAL THROMBOPLASTIN TIME,PTT (03/28/2019 10:15 PM [facility]) PTT 75.1(H) 22.0 - 35.0 SEC 03/28/2019 11:33 PM [facility] 03/28/2019 10:1 5 PM [facility] Manoj Moore MD LABORATORY Gale l Result Performing Organization Address [facility]/ZIP Co de Phone Number [facility] [address] [place] [address], [place] [phone] * (ABNORMAL) PARTIAL THROMBOPLASTIN TIME,PTT (03/28/2019 3:15 PM GR[facility]LINEM[facility]) PTT 126.7(HH) 22.0 - 35.0 SEC 03/28/2019 3:48 PM [facility] Comment: CRITICAL RESULT, SPECIMEN DATE, TIME WERE READ BACK BY MISAEL/RN @1548 03/28/2019 TO TGY 03/28/2019 3:15 PM [facility] Manoj Moore MD LABORATORY Gale l Result Performing Organization Address [facility] Co de Phone Number [facility] [address] [place] [address], [place] [phone] * (ABNORMAL) CARDIAC PROFILE (CK,CKMB,TROP) (03/28/2019 3:15 PM [facility]EM[facility]) CPK 55 26 - 192 U/L 03/28/2019 3:55 PM [facility] CK-MB 1.1 0.5 - 3.6 NG/ML 03/28/2019 3:55 PM [facility] TROPONIN I 0.132(H) <0.045 ng/mL. 03/28/2019 3:55 PM [facility] 03/28/2019 3:15 PM [facility] Manoj Moore MD LABORATORY Gale l Result Performing Organization Address [facility]/ZIP Co de Phone Number [facility] [address] [place] [address], [phone] * POCT glucose (03/28/2019 11:37 AM [facility]EM[facility]) GLUCOSE POC 97 70 - 109 03/28/2019 11:55 AM [facility] ORDERS INTERFACE 03/28/2019 11:3 7 AM [facility] Monty Ram MD POCT ORDERABLES - DEVICE Gale l Result [facility] ORDERS INTERFACE US * USV JUANJOSE DUPLEX LOW EXT JASPAL (03/28/2019 10:48 AM [facility]EM[facility]) Anatomical Region Laterality Modality Extremity Ultrasound 03/28/2019 10:5 1 AM [facility] Narrative 03/29/2019 3:32 PM [facility]AN ?Vascular Report Pat.Name: ??RAKAN SHAFFER ?? Pat.ID: ?[id number] ? St.Date: ?? 03/28/2019 ? Refer.: ??FLORIAN SINGER ? Exam Time: 10:51:00 AM ? Study Type:PVI VENOUS DUPLEX SCAN-LEGS BILAT Height: ?64in ?Age: ??1935,84Y ? Sex: ? FEMALE ?Sonogrphr: Toro Sood, RVT ? Pat. Stat.:Inpatient ? Room: ?ICUA03 ? ICD - 9: ?? 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 ++++++++++++++++++++++++++++++++++++ FINDINGS: ++++++++++++++++++++++++++++++++++++ Rt Lower Ext: Partial occlusion of the proximal popliteal and peroneal ?veins ??suggestive of acute deep venous thrombosis. Total ?occlusion ??of the distal popliteal and posterior tibial ?veins ??suggestive of acute deep venous thrombosis. Lt Lower Ext: No evidence of acute or chronic thrombosis noted in the ?deep ??or superficial veins in the left lower extremity. Comments: Results were given to Teresa at 10:45 hrs. Signed 03/29/2019 03:32 PM Zoë Schultz M.D. Procedure Note Zoë Schultz MD - 03/29/2019 Vascular Report Pat.Name: RAKAN SHAFFER LUIS EDUARDO Pat.ID: [id number] St.Date: 03/28/2019 Refer.MD: FLORIAN SINGER Exam Time: 10:51:00 AM Study Type:PVI VENOUS DUPLEX SCAN-LEGS BILAT Height: 64in Age: 1 1935,84Y Sex: FEMALE Sonogrphr: Toro Sood RVT Pat. Stat.:Inpatient Room: ICUA03 ICD - 9: I26.99 PE (pulmonary embolism) w/o acute cor pulmonale CPT - 4: 02929 Venous Duplex LE/UE Race: W ++++++++++++++++++++++++++++++++++++ FINDINGS: ++++++++++++++++++++++++++++++++++++ Rt Lower Ext: Partial occlusion of the proximal popliteal and peroneal veins suggestive of acute deep venous thrombosis. Total occlusion of the distal popliteal and posterior tibial veins suggestive of acute deep venous thrombosis. Lt Lower Ext: No evidence of acute or chronic thrombosis noted in the deep or superficial veins in the left lower extremity. Comments: Results were given to Teresa at 10:45 hrs. Signed 03/29/2019 03:32 PM Zoë Schultz M.D. Florian Singer MD VAS Final Result * USE ECHOCARDIOGRAM (03/28/2019 10:23 AM GROUNDMAN/LINEMAN) Anatomical Region Laterality Modality Cardiac Echocardiogram 03/28/2019 8:21 AM GROUNDMAN/LINEMAN Narrative 03/28/2019 5:09 PM GROUNDMAN/LINEMAN ?Echocardiography Report Pat.Name: ??RAKAN SHAFFER ?? Pat.ID: ?[id number] ? St.Date: ?? 03/28/2019 ? Refer.MD: ??FLORIAN SINGER ? Exam Time: 8:21:00 AM ? Study Type:ECHO WITH CARDIAC DOPPLER COMP Height: ?64in ?Weight: ?177.63lb ? BSA: ? 1.86 m2 ?Age: ??1935,84Y ? Sex: ? FEMALE ?BP: ?98/53 ? HR: ?66 bpm ?Sonogrphr: Renee Rueda RDCS, RVT Pat. Stat.:Inpatient ? Room: ?ICUA-3 ? CPT - 4: ?45534 ? Reason for Study: Post saddle PE ?? Procedures: ??2D, M-mode, Doppler, Color Flow, Portable Race: ?W ? ++++++++++++++++++++++++++++++++++++ SUMMARY: ++++++++++++++++++++++++++++++++++++ The left ventricular size is normal. The [...] ??Calcified posterior mitral annulus. Mild tricuspid regurgitation. ++++++++++++++++++++++++++++++++++++ FINDINGS: ++++++++++++++++++++++++++++++++++++ LV: ? The left ventricular size is normal. The left ventricular ?systolic ??function is mildly depressed. Estimated left ?ventricular ??ejection fraction is 45%. The septal E/e' is ?normal ??at < 8. The lateral E/e' is normal at <8. Left ?ventricular ??relaxation is impaired. LVOT: ? The left ventricular outflow tract size is normal. RV: ? The right ventricular size is moderately enlarged. Right ?ventricular ??systolic function is moderately depressed. A ?pacemaker ??wire is visualized in the right ventricle. TAPSE ?= ??16mm (<16 mm indicates systolic RV dysfunction). LA: ? The left atrial volume is moderately increased (42-48 ?ml/M2). RA: ? Right atrial size is moderately enlarged. IAS: ?Atrial septum appears intact. SHAGGY: ? No evidence of pericardial effusion. AO: ? Normal aortic root caliber. ??Calcified aortic root. PA: ? The peak pulmonary artery systolic pressure is estimated to ?be ??approximately 36 mmHg. Estimated right atrial pressure ?of ??3 mmHg. SVn: ?Inferior vena cava is normal. Inferior vena cava shows >50% ?collapse ??with respiration consistent with normal right ?atrial ??pressure. AV: ? The aortic valve is trileaflet. No evidence of aortic valve ?stenosis. ??Trace aortic regurgitation. Mild aortic valve ?sclerosis. MV: ? Trace mitral regurgitation. No evidence of mitral stenosis. ?Calcified ??posterior mitral annulus. 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 PV: ? The pulmonic valve is normal There is trace pulmonic ?regurgitation TV: ? Structurally normal tricuspid valve. Mild tricuspid ?regurgitation. ++++++++++++++++++++++++++++++++++++ MEASUREMENTS: ++++++++++++++++++++++++++++++++++++ ?DOPPLER LVOT ?? LVOTpkPG ? 1 mmHg ?LVOTmnPG ? 1 mmHg LVOTpkVel ? 56.1 cm/s (70-110) LVOT SV ? 40 ml ?? Index ?21.5 ml/m2 LVOT TVI ?11.6 cm ? AV Forward Flow AV TVI ?34.1 cm ?AV pkPG ?9 mmHg AV pkVel ? 151 cm/s (100-170) Area (TVI) ?1.18 cm2 ??(3-5) Index ?0.634 cm2/m2 AV mnVel ? 101 cm/s ?Area (Rufino) ?1.29 cm2 ??(3-5) AV mnPG ?5 mmHg ? AV Regurg Flow AV pkVel ? 285 cm/s ?AV P1/2t ? 536 ms ?? AV pkPG ? 32 mmHg ? MV Forward Flow MV DeTm ?246 ms ?MV E/A ? 0.5 ? MV mnPG ?1 mmHg ?MV pkE ?37.2 cm/s (60-130) MV pkPG ?2 mmHg ?MV pkA ?69.4 cm/s PV Forward Flow PV pkVel ?56.9 cm/s (60-90) ??PV pkPG ?1 mmHg TV Regurg Flow TV pkPG ? 30 mmHg ?TV pkVel ? 276 cm/s (30- 70) Lat E' ?? Lat e ? 6.75 cm/s ? Lat E/E' ?? Lat E/e ?5.5 ? Med E' ?? Med e ? 4.91 cm/s ? Med E/E' ?? Med E/e ?7.6 ? Aortic Valve ?? Aortic Valve Ar ??0.63 ?Aortic Valve Ve ??0.37 ? AV DI ?? Value ?0.3 ? ALISE (VTI) Index ?? Value ? 0.63 ? LV Mass 2D ?? Value ?178 g ? LV Mass [id number] ?? Value ? 95.7 g/m2 ? RA Volume ?? Atrial Hawkins ?? 5.27 cm ? Atrial Hawkins ?? 20.6 cm2 Atrial Hawkins ?? 69.4 ml ? Right Ventricle ?? Right Ventricle ??10.2 cm/s ?2D Left Ventricle ?? LVIDd ? 4.56 cm ?? (3.6-5.2) LV EF(Bi-Plane) ??41.1 % ?(55-75) LVIDs ? 3.72 cm ?? (2.3-3.9) LVPW ?? LVPWd ?0.936 cm ? Ventricular Septum ?? IVSd ?1.26 cm ? Left Atrium ?? LA a-p ? 4.7 cm ?? (2.8-3.4) Aorta ?? Ao Rtd ? 3.2 cm ?? (zsc 1.4) Ao Asc ? 3.8 cm ?? (zsc 4.8) Index ?2.04 cm/m2 LVOT ?? LVOT ? 2.1 cm ? Ratios ?? IVS LA Biplane LAVol I BP ?44.4 ml/m2 ? Right Ventricle ?? Right Ventricle ??5.44 cm ? Right Ventricle ??4.54 cm ?? Major [place] ?7.52 cm ?MMODE TA ?? Tricuspid Annul ??1.66 cm ? Signed 03/28/2019 05:09 PM Berto Valencia M.D. Procedure Note Milagro Guan MD - 03/28/2019 Echocardiography Report Pat.Name: RAKAN SHAFFER Pat.ID: [id number] .Date: 03/28/2019 Refer.MD: FLORIAN SINGER Exam Time: 8:21:00 AM Study Type:ECHO WITH CARDIAC DOPPLER COMP Height: 64in Weight: 177.63lb BSA: 1.86 m2 Age: 1 1935,84Y Sex: FEMALE BP: 98/53 HR: 66 bpm Sonogrphr: Renee Rueda RDCS, RVT Pat. Stat.:Inpatient Room: [facility] CPT - 4: 07876 Reason for Study: Post saddle PE Procedures: 2D, M-mode, Doppler, Color Flow, Portable Race: W ++++++++++++++++++++++++++++++++++++ SUMMARY: ++++++++++++++++++++++++++++++++++++ The left ventricular size is normal. The [...] Calcified posterior mitral annulus. Mild tricuspid regurgitation. ++++++++++++++++++++++++++++++++++++ FINDINGS: ++++++++++++++++++++++++++++++++++++ LV: The left ventricular size is normal. The left ventricular systolic function is mildly depressed. Estimated left ventricular ejection fraction is 45%. The septal E/e' is normal at < 8. The lateral E/e' is normal at <8. Left ventricular relaxation is impaired. LVOT: The left ventricular outflow tract size is normal. RV: The right ventricular size is moderately enlarged. Right ventricular systolic function is moderately depressed. A pacemaker wire is visualized in the right ventricle. TAPSE = 16mm (<16 mm indicates systolic RV dysfunction). LA: The left atrial volume is moderately increased (42-48 ml/M2). RA: Right atrial size is moderately enlarged. IAS: Atrial septum appears intact. SHAGGY: No evidence of pericardial effusion. AO: Normal aortic root caliber. Calcified aortic root. PA: The peak pulmonary artery systolic pressure is estimated to be approximately 36 mmHg. Estimated right atrial pressure of 3 mmHg. SVn: Inferior vena cava is normal. Inferior vena cava shows >50% collapse with respiration consistent with normal right atrial pressure. AV: The aortic valve is trileaflet. No evidence of aortic valve stenosis. Trace aortic regurgitation. Mild aortic valve sclerosis. MV: Trace mitral regurgitation. No evidence of mitral stenosis. Calcified posterior mitral annulus. Myxomatous degeneration of mitral valve. PV: The pulmonic valve is normal There is trace pulmonic regurgitation TV: Structurally normal tricuspid valve. Mild tricuspid regurgitation. ++++++++++++++++++++++++++++++++++++ MEASUREMENTS: ++++++++++++++++++++++++++++++++++++ DOPPLER LVOT LVOTpkPG 1 mmHg LVOTmnPG 1 mmHg LVOTpkVel 56.1 cm/s (70-110) LVOT SV 40 ml Index 21.5 ml/m2 LVOT TVI 11.6 cm AV Forward Flow AV TVI 34.1 cm AV pkPG 9 mmHg AV pkVel 151 cm/s (100-170) Area (TVI) 1.18 cm2 (3-5) Index 0.634 cm2/m2 AV mnVel 101 cm/s Area (Rufino) 1.29 cm2 (3-5) AV mnPG 5 mmHg AV Regurg Flow AV pkVel 285 cm/s AV P1/2t 536 ms AV pkPG 32 mmHg MV Forward Flow MV DeTm 246 ms MV E/A 0.5 MV mnPG 1 mmHg MV pkE 37.2 cm/s (60-130) MV pkPG 2 mmHg MV pkA 69.4 cm/s PV Forward Flow PV pkVel 56.9 cm/s (60-90) PV pkPG 1 mmHg TV Regurg Flow TV pkPG 30 mmHg TV pkVel 276 cm/s (30-70) Lat E' Lat e 6.75 cm/s Lat E/E' Lat E/e 5.5 Med E' Med e 4.91 cm/s Med E/E' Med E/e 7.6 Aortic Valve Aortic Valve Ar 0.63 Aortic Valve Ve 0.37 AV DI Value 0.3 ALISE (VTI) Index Value 0.63 LV Mass 2D Value 178 g LV Mass [id number] Value 95.7 g/m2 RA Volume Atrial Hawkins 5.27 cm Atrial Hawkins 20.6 cm2 Atrial Hawkins 69.4 ml Right Ventricle Right Ventricle 10.2 cm/s 2D Left Ventricle LVIDd 4.56 cm (3.6-5.2) LV EF(Bi-Plane) 41.1 % (55-75) LVIDs 3.72 cm (2.3-3.9) LVPW LVPWd 0.936 cm Ventricular Septum IVSd 1.26 cm Left Atrium LA a-p 4.7 cm (2.8-3.4) Aorta Ao Rtd 3.2 cm (zsc 1.4) Ao Asc 3.8 cm (zsc 4.8) Index 2.04 cm/m2 LVOT LVOT 2.1 cm Ratios IVS LA Biplane LAVol I BP 44.4 ml/m2 Right Ventricle Right Ventricle 5.44 cm Right Ventricle 4.54 cm Major [place] 7.52 cm MMODE TA Tricuspid Annul 1.66 cm Signed 03/28/2019 05:09 PM Berto Valencia M.D. Florian Singer MD ECHO Final Result * ECG 12 lead (03/28/2019 9:43 AM GROUNDMAN/LINEMAN) 03/28/2019 9:43 AM GROUNDMAN/LINEMAN Narrative [facility] - 03/28/2019 12:35 PM GROUNDMAN/LINEMAN ? [facility] ?[address] [place], [place] ??[address] ? Test Date: ?2019-03-28 Pat Name: ? RAKAN SHAFFER ?Department: ? Room: ? [id number] Gender: ? Female ? Information Systems Auditor: ?? Psp : ?[id number] ? Requested By: MANOJ MOORE Order Number: [id number] ? Reading MD: ?? Nolan Ortez ? Measurements Intervals ?[place] ? Rate: ? 82 ? P: ?63 UT: ? 152 ?QRS: ?125 QRSD: ? 153 ?T: ?3 QT: ? 464 ? QTc: ?543 ? Interpretive Statements ELECTRONIC VENTRICULAR PACEMAKER WITH OCCASIONAL FUSION COMPLEXES NDMAN/LINEMAN Procedure Note Nolan Ortez MD - 03/28/2019 [facility] [address] [place] [address] Test Date: 2019-03-28 Pat Name: RAKAN SHAFFER Department: Room: [id number] Gender: Female Information Systems Auditor: Alexander : 1935 Requested By: ELIJAH Order Number: [id number] Reading MD: Nolan Ortez Measurements Intervals [place] Rate: 82 P: 63 UT: 152 QRS: 125 QRSD: 153 T: 3 QT: 464 QTc: 543 Interpretive Statements ELECTRONIC VENTRICULAR PACEMAKER WITH OCCASIONAL FUSION COMPLEXES NDMAN/LINEMAN us Manoj Moore MD ECG ORDERABLES Gale l Result Performing Organization Address [facility] Co de Phone Number [phone] * (ABNORMAL) CARDIAC PROFILE (CK,CKMB,TROP) (03/28/2019 8:25 AM GROUNDMAN/LINEMAN) CPK 56 26 - 192 U/L 03/28/2019 9:09 AM GROUNDMAN/LINEMAN [facility] CK-MB 1.3 0.5 - 3.6 NG/ML 03/28/2019 9:09 AM GROUNDMAN/LINEMAN [facility] TROPONIN I 0.170(H) <0.045 ng/mL. 03/28/2019 9:09 AM GROUNDMAN/LINEMAN [facility] 03/28/2019 8:25 AM GROUNDMAN/LINEMAN us Manoj Moore MD LABORATORY Gale l Result Performing Organization Address City/[facility]/ZIP Co de Phone Number [facility] [address] [place] [address], [place] [phone] * (ABNORMAL) PARTIAL THROMBOPLASTIN TIME,PTT (03/28/2019 8:10 AM GROUNDMAN/LINEMAN) PTT 134.2(HH) 22.0 - 35.0 SEC 03/28/2019 8:52 AM GROUNDMAN/LINEMAN [facility] Comment: CRITICAL RESULT, SPECIMEN DATE, TIME WERE READ BACK BY VICTOR M/SIA 03/28/19 @ 0850 TO AFSANEHP. 03/28/2019 8:10 AM GROUNDMAN/LINEMAN Florian Singer MD LABORATORY Final Result Performing Organization Address [facility] de Phone Number [facility] [address] [place] [address], [phone] * POCT glucose (03/28/2019 6:16 AM GROUNDMAN/LINEMAN) GLUCOSE POC 101 70 - 109 03/28/2019 6:20 AM GROUNDMAN/LINEMAN [facility] ORDERS INTERFACE 03/28/2019 6:16 AM GROUNDMAN/LINEMAN Monty Ram MD POCT ORDERABLES - DEVICE Gale l Result Performing Organization Address [facility] de Phone Number [facility] ORDERS INTERFACE US * (ABNORMAL) PRO-BRAIN NATRIURETIC PEPTIDE (03/28/2019 6:09 AM GROUNDMAN/LINEMAN) PRO-B TYPE NATRIURETIC PEPTIDE 7,058(H) <450 PG/ML 03/28/2019 7:02 AM GROUNDMAN/LINEMAN [facility] Comment: AGE INDEPENDENT: <300 PG/ML HAS A 99% NEGATIVE PREDICTIVE VALUE FOR EXCLUDING ACUTE CHF <50 YEARS: >450 PG/ML IS CONSISTENT WITH ACUTE CHF 50-75 YEARS: >900 PG/ML IS CONSISTENT WITH ACUTE CHF >75 YEARS: >1800 PG/ML IS CONSISTENT WITH ACUTE CHF IN PATIENTS WITH RENAL INSUFFICIENCY (GFR <60), >1200 PG/ML YIELDS A DIAGNOSTIC SENSITIVITY AND SPECIFICITY OF 89% AND 72% FOR ACUTE CHF. 03/28/2019 6:09 AM GROUNDMAN/LINEMAN Florian Singer MD LABORATORY Final Result Performing Organization Address [facility] Co de Phone Number [facility] [address] [place] [address], [phone] * PHOSPHORUS, INORGANIC PHOSPHATE (03/28/2019 6:09 AM GROUNDMAN/LINEMAN) PHOSPHORUS 3.1 2.5 - 4.9 MG/DL 03/28/2019 7:02 AM [facility] 03/28/2019 6:09 AM GROUNDMAN/LINEMAN us Florian Singer MD LABORATORY Final Result Performing Organization Address [facility] Co de Phone Number [facility] [address] [place] [address], [place] [phone] * MAGNESIUM (03/28/2019 6:09 AM GROUNDMAN/LINEMAN) Pathologist [facility] MAGNESIUM 1.9 1.6 - 2.6 MG/DL 03/28/2019 7:02 AM [facility] 03/28/2019 6:09 AM GROUNDMAN/LINEMAN us Florian Singer MD LABORATORY Final Result Performing Organization Address [facility] de Phone Number [facility] [address] [place] [address], [phone] * (ABNORMAL) BASIC METABOLIC PANEL (03/28/2019 6:09 AM GROUNDMAN/LINEMAN) Pathologist [facility] SODIUM S/P/B 140 136 - 145 MMOL/L 03/28/2019 7:02 AM [facility] POTASSIUM S/P/B 3.3(L) 3.5 - 5.1 MMOL/L 03/28/2019 7:02 AM [facility] CHLORIDE S/P/B 109(H) 98 - 107 MMOL/L 03/28/2019 7:02 AM [facility] CO2 24.6 21.0 - 32.0 MMOL/L 03/28/2019 7:02 AM [facility] GLUCOSE 93 74 - 106 MG/DL 03/28/2019 7:02 AM [facility] BUN 22(H) 7 - 18 MG/DL 03/28/2019 7:02 AM [facility] CREATININE S/P/B 0.93 0.55 - 1.02 MG/DL 03/28/2019 7:02 AM [facility] CALCIUM S/P/B 8.5 8.5 - 10.1 MG/DL 03/28/2019 7:02 AM [facility] ANION GAP 6.4 5.0 - 15.0 MMOL/L 03/28/2019 7:02 AM [facility] Comment:REFERENCE RANGE NOT ESTABLISHED OSMOLALITY (CALC) 293 MOSM/KG 020 7:02 AM [facility] Comment:REFERENCE RANGE NOT ESTABLISHED EGFR NON-AFR. AMER. 56(L) >90 ML/MIN/1. 73 M2 03/28/2019 7:02 AM [facility] EGFR AFR. AMER. 65(L) >90 ML/MIN/1. 73 M2 03/28/2019 7:02 AM [facility] GFR NOTES GFR REFERENCE S: 03/28/2019 7:02 AM [facility] Comment: THE ESTIMATED GFR IS CALCULATED [...] ml/min/1.73 m2 G5,KIDNEY FAILURE: <15 ml/min/1.73 m2 03/28/2019 6:09 AM GROUNDMAN/LINEMAN us Florian Singer MD LABORATORY Final Result [facility] [address] [place] [address], [place] [phone] * (ABNORMAL) CBC W/DIFF AUTOMATED (03/28/2019 6:09 AM GROUNDMAN/LINEMAN) WBC 5.8 4.0 - 10.8 x10'3/uL 03/28/2019 6:23 AM [facility] RBC 3.24(L) 4.10 - 5.40 x10'6/uL 03/28/2019 6:23 AM [facility] HGB 10.2(L) 12.0 - 16.0 G/DL 03/28/2019 6:23 AM [facility] HCT 30.9(L) 36.0 - 47.0 % 03/28/2019 6:23 AM [facility] MCV 95.4 78.0 - 100.0 FL 03/28/2019 6:23 AM [facility] MCH 31.5(H) 27.0 - 31.0 PG 03/28/2019 6:23 AM [facility] MCHC 33.0 33.0 - 36.0 G/DL 03/28/2019 6:23 AM [facility] RDW 13.3 11.5 - 14.5 % 03/28/2019 6:23 AM [facility] PLT 206 150 - 350 x10'3/uL 03/28/2019 6:23 AM [facility] MPV 8.9 7.4 - 10.4 FL 03/28/2019 6:23 AM [facility] ABS. NEUTROPHILS TOTAL 3.89 1.60 - 8.30 x10'3/uL 03/28/2019 6:23 AM [facility] ABS. LYMPHOCYTES 1.30 0.80 - 4.70 x10'3/uL 03/28/2019 6:23 AM [facility] ABS. MONOCYTES 0.45 0.00 - 1.50 x10'3/uL 03/28/2019 6:23 AM [facility] ABS. EOSINOPHILS 0.09 0.00 - 0.40 x10'3/uL 03/28/2019 6:23 AM GROUNDMAN/LINEMAN [facility] ABS. BASOPHILS 0.02 0.00 - 0.20 x10'3/uL 03/28/2019 6:23 AM GROUNDMAN/LINEMAN [facility] ABS. IMMATURE GRANULOCYTES 0.03 0.00 - 0.03 x10'3/uL 03/28/2019 6:23 AM GROUNDMAN/LINEMAN [facility] ABS. NUCLEATED RBC'S 0.00 0.0 x10'3/uL 03/28/2019 6:23 AM GROUNDMAN/LINEMAN [facility] 03/28/2019 6:09 AM GROUNDMAN/LINEMAN us Florian Singer MD LABORATORY Final Result Performing Organization Address [facility] Co de Phone Number [facility] [address] [place] [address], [phone] * (ABNORMAL) PARTIAL THROMBOPLASTIN TIME,PTT (03/28/2019 1:00 AM GROUNDMAN/LINEMAN) PTT 37.1(H) 22.0 - 35.0 SEC 03/28/2019 1:59 AM GROUNDMAN/LINEMAN [facility] 03/28/2019 1:00 AM GROUNDMAN/LINEMAN us Florian Singer MD LABORATORY Final Result Performing Organization Address [facility] Co de Phone Number [facility] [address] [place] [phone], [phone] * PROTHROMBIN TIME, VENOUS (03/28/2019 1:00 AM GROUNDMAN/LINEMAN) PROTIME 14.1 11.6 - 14.3 SEC 03/28/2019 2:03 AM GR[facility]LINEMAN [facility] INR 1.1 0.9 - 1.1 03/28/2019 2:03 AM GR[facility]LINEMAN [facility] 03/28/2019 1:00 AM GROUNDMAN/LINEMAN Florian Singer MD LABORATORY Final Result [facility] [address] [place] [address], [phone] * (ABNORMAL) CBC W/DIFF AUTOMATED (03/28/2019 1:00 AM GROUNDMAN/LINEMAN) WBC 6.8 4.0 - 10.8 x10'3/uL 03/28/2019 1:36 AM [facility] RBC 3.40(L) 4.10 - 5.40 x10'6/uL 03/28/2019 1:36 AM [facility] HGB 10.6(L) 12.0 - 16.0 G/DL 03/28/2019 1:36 AM [facility] HCT 32.1(L) 36.0 - 47.0 % 03/28/2019 1:36 AM [facility] MCV 94.4 78.0 - 100.0 FL 03/28/2019 1:36 AM [facility] MCH 31.2(H) 27.0 - 31.0 PG 03/28/2019 1:36 AM [facility] MCHC 33.0 33.0 - 36.0 G/DL 03/28/2019 1:36 AM [facility] RDW 13.4 11.5 - 14.5 % 03/28/2019 1:36 AM [facility] PLT 211 150 - 350 x10'3/uL 03/28/2019 1:36 AM [facility] MPV 9.1 7.4 - 10.4 FL 03/28/2019 1:36 AM [facility] ABS. NEUTROPHILS TOTAL 4.89 1.60 - 8.30 x10'3/uL 03/28/2019 1:36 AM GR[facility]LINEMAN [facility] ABS. LYMPHOCYTES 1.38 0.80 - 4.70 x10'3/uL 03/28/2019 1:36 AM GR[facility]MAN[facility]LINEMAN [facility] ABS. MONOCYTES 0.50 0.00 - 1.50 x10'3/uL 03/28/2019 1:36 AM GR[facility]MAN/LINEMAN [facility] ABS. EOSINOPHILS 0.03 0.00 - 0.40 x10'3/uL 03/28/2019 1:36 AM GR[facility]MAN/LINEMAN [facility] ABS. BASOPHILS 0.02 0.00 - 0.20 x10'3/uL 03/28/2019 1:36 AM GR[facility]MAN/LINEMAN [facility] ABS. IMMATURE GRANULOCYTES 0.02 0.00 - 0.03 x10'3/uL 03/28/2019 1:36 AM GR[facility]MAN/LINEMAN [facility] ABS. NUCLEATED RBC'S 0.00 0.0 x10'3/uL 03/28/2019 1:36 AM GR[facility]MAN[facility]LINEMAN [facility] 03/28/2019 1:00 AM GROUNDMAN/LINEMAN us Florian Singer MD LABORATORY Final Result Performing Organization Address [facility]/ZIP Co de Phone Number [facility] [address] [place] [address], [phone] * CALCIUM, IONIZED (03/28/2019 1:00 AM GROUNDMAN/LINEMAN) CALCIUM IONIZED 1.19 1.15 - 1.33 MMOL/L 03/28/2019 1:20 AM GR[facility]MAN/LINEMAN [facility] 03/28/2019 1:00 AM GROUNDMAN/LINEMAN us Florian Singer MD LABORATORY Final Result Performing Organization Address City/[facility]/ZIP Co de Phone Number [facility] [address] [place] [address], [phone] * PHOSPHORUS, INORGANIC PHOSPHATE (03/28/2019 1:00 AM GROUNDMAN/LINEMAN) PHOSPHORUS 3.0 2.5 - 4.9 MG/DL 03/28/2019 1:50 AM GR[facility]MAN/LINEMAN [facility] 03/28/2019 1:00 AM GROUNDMAN/LINEMAN us Florian Singer MD LABORATORY Final Result Performing Organization Address [facility] Co de Phone Number [facility] [address] [place] [address], [phone] * LACTIC ACID (03/28/2019 1:00 AM GROUNDMAN/LINEMAN) LACTIC ACID VENOUS 1.6 0.4 - 2.0 MMOL/L 03/28/2019 1:48 AM GR[facility]LINEMAN [facility] 03/28/2019 1:00 AM GROUNDMAN/LINEMAN us Florian Singer MD LABORATORY Final Result Performing Organization Address [facility] de Phone Number [facility] [address] [place] [address], [phone] * (ABNORMAL) TROPONIN, QUANT (03/28/2019 1:00 AM GROUNDMAN/LINEMAN) TROPONIN I 0.334(H) <0.045 ng/mL. 03/28/2019 1:50 AM GR[facility]MAN/LINEMAN [facility] 03/28/2019 1:00 AM GROUNDMAN/LINEMAN us Florian Singer MD LABORATORY Final Result Performing Organization Address [facility] Co de Phone Number [facility] [address] [place] [address], [phone] * MAGNESIUM (03/28/2019 1:00 AM GROUNDMAN/LINEMAN) MAGNESIUM 1.8 1.6 - 2.6 MG/DL 03/28/2019 1:50 AM GR[facility]LINEMAN [facility] 03/28/2019 1:00 AM GROUNDMAN/LINEMAN Florian Singer MD LABORATORY Final Result [facility] [address] [place] [address], [phone] * (ABNORMAL) COMPREHENSIVE METABOLIC PANEL (03/28/2019 1:00 AM GROUNDMAN/LINEMAN) SODIUM S/P/B 139 136 - 145 MMOL/L 03/28/2019 1:50 AM [facility] POTASSIUM S/P/B 3.4(L) 3.5 - 5.1 MMOL/L 03/28/2019 1:50 AM [facility] CHLORIDE S/P/B 108(H) 98 - 107 MMOL/L 03/28/2019 1:50 AM [facility] CO2 22.8 21.0 - 32.0 MMOL/L 03/28/2019 1:50 AM [facility] GLUCOSE 102 74 - 106 MG/DL 03/28/2019 1:50 AM [facility] BUN 24(H) 7 - 18 MG/DL 03/28/2019 1:50 AM [facility] CREATININE S/P/B 1.01 0.55 - 1.02 MG/DL 03/28/2019 1:50 AM [facility] CALCIUM S/P/B 8.5 8.5 - 10.1 MG/DL 03/28/2019 1:50 AM [facility] BILIRUBIN TOTAL S/P/B 0.5 0.2 - 1.0 MG/DL 03/28/2019 1:50 AM [facility] ALKALINE PHOSPHATASE S/P/B 77 55 - 142 U/L 03/28/2019 1:50 AM [facility] AST 20 15 - 37 U/L 03/28/2019 1:50 AM [facility] ALT 15 13 - 56 U/L 03/28/2019 1:50 AM [facility] TOTAL PROTEIN S/P/B 6.7 6.4 - 8.2 G/DL 03/28/2019 1:50 AM [facility] ALBUMIN S/P/B 2.7(L) 3.4 - 5.0 G/DL 03/28/2019 1:50 AM [facility] ANION GAP 8.2 5.0 - 15.0 MMOL/L 03/28/2019 1:50 AM [facility] Comment:REFERENCE RANGE NOT ESTABLISHED OSMOLALITY (CALC) 292 MOSM/KG 020 1:50 AM [facility] Comment:REFERENCE RANGE NOT ESTABLISHED EGFR NON-AFR. AMER. 51(L) >90 ML/MIN/1. 73 M2 03/28/2019 1:50 AM [facility] EGFR AFR. AMER. 59(L) >90 ML/MIN/1. 73 M2 03/28/2019 1:50 AM [facility] GFR NOTES GFR REFERENCE S: 03/28/2019 1:50 AM [facility] Comment: THE ESTIMATED GFR IS CALCULATED [...] ml/min/1.73 m2 G5,KIDNEY FAILURE: <15 ml/min/1.73 m2 03/28/2019 1:00 AM [facility] Florian Singer MD LABORATORY Final Result [facility] [address] [place] [address], [id number] * (ABNORMAL) POCT ARTERIAL BLOOD GAS (03/28/2019 12:55 AM [facility]) POC PH ARTERIAL 7.464(H) 7.35 - 7.45 03/28/2019 12:58 AM [facility] POC PCO2 ARTERIAL 33.7(L) 35.0 - 45.0 MMHG 03/28/2019 12:58 AM [facility] POC PO2 ARTERIAL 82 80 - 105 MMHG 03/28/2019 12:58 AM [facility] POC HCO3 ARTERIAL 24.2 22 - 26 MMOL/L 03/28/2019 12:58 AM [facility] POC TCO2 ARTERIAL 25 23 - 27 MMOL/L 03/28/2019 12:58 AM [facility] POC BASE EXCESS ARTERIAL 0 0 - 3 MMOL/L 03/28/2019 12:58 AM [facility] TIME TEST WAS PERFORMED: 55 03/28/2019 12:58 AM [facility] 03/28/2019 12:5 5 AM [facility] Monty Ram MD POINT OF CARE TEST ORDERABLES Final Result Performing Organization Address City/State/[facility] Co de Phone Number [facility] [address] [place] [address], [id number] * XR CHEST PORTABLE (03/28/2019 12:54 AM [facility]) Anatomical Region Laterality Modality Chest Radiographic Angelina ging 03/28/2019 12:5 7 AM [facility] Impressions 03/28/2019 12:58 AM [facility] IMPRESSION: ======== ?? 1. ??No acute cardiopulmonary abnormalities. Interpreted By: Mikel White MD, 03/28/2019 12:57 AM Narrative 03/28/2019 12:58 AM [facility] Examination: Chest Radiograph, 1 view Exam Date/Time: 03/28/2019 12:45 AM Reason For Exam: ??hypoxia ?? Hypoxia, pulmonary embolus Comparison: 01/31/2019 chest radiographs Technique: Single AP view of the chest. Findings: ??Left-sided generator with multiple cardiac leads for AICD device again seen. ??Multiple surgical clips project over the left upper abdomen. ??Heart size prominent but stable from the prior study. ??No large pleural effusion or pneumothorax. ??No consolidations. ??Pulmonary vasculature upper limits normal. ======== Procedure Note Mikel White MD - 03/28/2019 Examination: Chest Radiograph, 1 view Exam Date/Time: 03/28/2019 12:45 AM Reason For Exam: hypoxia Hypoxia, pulmonary embolus Comparison: 01/31/2019 chest radiographs Technique: Single AP view of the chest. Findings: Left-sided generator with multiple cardiac leads for AICDdevice again seen. Multiple surgical clips project over the left upperabdomen. Heart size prominent but stable from the prior study. No largepleural effusion or pneumothorax. No consolidations. Pulmonaryvasculature upper limits normal. ======== IMPRESSION: ======== 1. No acute cardiopulmonary abnormalities. Interpreted By: Mikel White MD, 03/28/2019 12:57 AM Florian Singer MD GENERAL IMAGING Final Result * MRSA PCR nares Screening (03/27/2019 10:45 PM [facility]) SPECIMEN SOURCE RESPIRATORY, NOSE 03/27/2019 11:21 PM [facility] MRSA BY PCR NASAL METHICILLIN RESISTANT STAPH AUREUS NOT DETECTED 03/28/2019 2:33 PM [facility] NASAL STRUCTURE / Unknown 03/27/2019 10:45 PM [facility] us Florian Singer MD MICROBIOLOGY - GENERAL ORDERABLE S Final Result [facility] [address] [place] [address], [id number] * POCT glucose (03/27/2019 10:21 PM [facility]) GLUCOSE POC 108 70 - 109 03/27/2019 10:22 PM [facility] ORDERS INTERFACE 03/27/2019 10:2 1 PM [facility] Monty Ram MD POCT ORDERABLES - DEVICE Gale l Result [facility] ORDERS INTERFACE US documented in this encounter Visit Diagnoses Diagnosis Acute pulmonary embolism ([facility])- Primary Other pulmonary embolism and infarction Acute saddle pulmonary embolism, unspecified whether acute cor pulmonale present ([facility]) documented in this encounter Administered Medications Inactive Administered Medications - up to 3 most recent administrations Medication Order MAR Action Action Date Dose Rate Site acetaminophen (TYLENOL) tablet 650 mg 650 mg, Oral, Every 4 hours PRN, Mild pain (Scale 1 - 3), Moderate pain (Scale 4 - 7), Starting on Thu03/30/19 at 0339, Until 04/02/19 at 1359, Maximum dose of acetaminophen is 4000 mg from all sources in 24 hours. Given 03/31/2019 9:19 PM [facility] 650 mg Given 03/30/2019 5:59 PM [facility] 650 mg Given 03/30/2019 9:04 AM [facility] 650 mg acetaminophen-codeine (TYLENOL #3) 300-30 MG tablet 1 tablet 1 tablet, Oral, DAILY PRN, Moderate pain (Scale 4 - 7), Starting on Thu03/30/19 at 1808, Until 04/02/19 at 1359, Maximum dose of acetaminophen is 4000 mg from all sources in 24 hours. apixaban (ELIQUIS) tablet 10 mg 10 mg, Oral, 2 times daily, 14 doses, First dose on Thu03/30/19 at 1000, Last dose on Thu04/05/19 at 2100 Given 04/02/2019 8:27 AM [facility] 10 mg Given 04/01/2019 9:15 PM [facility] 10 mg Given 04/01/2019 7:56 AM [facility] 10 mg aspirin chewable tablet 81 mg 81 mg, Oral, Daily, First dose (after last modification) on Thu03/28/19 at 0945, Until Discontinued Given 04/02/2019 8:27 AM [facility] 81 mg Given 04/01/2019 7:56 AM [facility] 81 mg Given 03/31/2019 8:59 AM [facility] 81 mg atorvastatin (LIPITOR) tablet 80 mg 80 mg, Oral, Nightly at bedtime, First dose on Thu03/28/19 at 2100, Until Discontinued Given 04/01/2019 9:15 PM [facility] 80 m g Given 03/31/2019 9:20 PM [facility] 80 mg Given 03/30/2019 9:11 PM [facility] 80 mg chlorhexidine (PERIDEX) 0.12 % solution 15 mL 15 mL, Mouth/Throat, Once, 1 dose, On Tu03/29/19 at 0600, Patient to perform oral care first. Swish/gargle in mouth for 30 seconds, and then discard prior to going to surgery. If ventilated use saturated swab to clean oral cavity., Pre-Op Given 03/29/2019 6:33 AM [facility] 15 mLs heparin 25,000 units/250 mL infusion 0-20 Units/kg/hr ? 80.9 kg (0-16.18 mL/hr, rounded to 0-16.2 mL/hr), Intravenous, Continuous, Starting on Thu03/28/19 at 0045, Until Thu03/30/19 at 0741, Medical Heparin Management for PTT Nomogram (Calculator). MAX Initial Infusion 2,000 units/hr. Use the Protocol button Yes to calculate initial infusion rate of 18 units/kg/hr. New Bag 03/30/2019 4:25 AM [facility] 12 Units/kg/hr 9.7 mL/hr Rate/Dose Verify 03/29/2019 7:42 AM [facility] 12 Units/kg/hr 9.7 mL/hr Rate/Dose Verify 03/29/2019 6:21 AM [facility] 12 Units/kg/hr 9.7 mL/hr levothyroxine (SYNTHROID) tablet 75 mcg 75 mcg, Oral, Daily (levothyroxine), First dose on Thu03/28/19 at 0945, Until Discontinued, Avoid iron, calcium, and antacids within 4 hours of administration. Given 04/02/2019 6:48 AM [facility] 7 5 mcg Given 04/01/2019 6:21 AM [facility] 75 mcg Given 03/31/2019 5:55 AM [facility] 75 mcg magnesium sulfate IVPB 2 g 2 g, Intravenous, at 25 mL/hr, Once, 1 dose, On Thu03/28/19 at 0930 New Bag 03/28/2019 9:48 AM [facility] 2 g 25 mL/hr methocarbamol (ROBAXIN) tablet 500 mg 500 mg, Oral, 4 times daily PRN, Muscle Spasms, Starting on Thu03/30/19 at 0736, Until 04/02/19 at 1359 metoprolol succinate ER (TOPROL-XL) 24 hr tablet 25 mg 25 mg, Oral, Daily, First dose on Thu03/30/19 at 0900, Until Discontinued, May be split in half along the tablet score line; do not chew or crush. Given 04/01/2019 7:56 AM [facility] 25 mg Given 03/31/2019 8:59 AM [facility] 25 mg Given 03/30/2019 9:02 AM [facility] 25 mg metoprolol succinate ER (TOPROL-XL) 24 hr tablet 50 mg 50 mg, Oral, Daily, First dose (after last modification) on 04/02/19 at 0900, Until Discontinued, May be split in half along the tablet score line; do not chew or crush. Given 04/02/2019 8:27 AM [facility] 50 mg pantoprazole EC (PROTONIX) tablet 40 mg 40 mg, Oral, Daily, First dose on Thu03/28/19 at 0945, Until Discontinued, Do not break, chew, or crush. Given 04/02/2019 8:27 AM [facility] 40 mg Given 04/01/2019 7:56 AM [facility] 40 mg Given 03/31/2019 8:59 AM [facility] 40 mg potassium chloride CR (KLOR-CON M) tablet 40 mEq 40 mEq, Oral, Once, 1 dose, On Thu03/28/19 at 0930, Do not chew, crush, or suck on tablet. May break in half. May dissolve whole tablet in 120 mL of water and drink immediately. Given 03/28/2019 9:48 AM [facility] 40 mEq documented in this encounter Active and Recently Administered Medications Times are shown in [facility]. Scheduled Medication Order 03/31/2019 04/01/2019 04/02/2019 apixaban (ELIQUIS) tablet 10 mg 10 mg, Oral, 2 times daily, 14 doses, First dose on Thu03/30/19 at 1000, Last dose on Thu04/05/19 at 2100 0859 (Given - Provider: Carmen Rodney RN)2119 (Given - Provider: Colleen Abarca RN-BAR) 075 (Given - Provider: Carmen Rodney RN)2114 (Given - Provider: Angie Lr RN) 826 (Given - Provider: KAVYA Ulloa) aspirin chewable tablet 81 mg 81 mg, Oral, Daily, First dose (after last modification) on Thu03/28/19 at 0945, Until Discontinued 858 (Given - Provider: Carmen Rodney RN) 075 (Given - Provider: Carmen Rodney RN) 826 (Given - Provider: KAVYA Ulloa) atorvastatin (LIPITOR) tablet 80 mg 80 mg, Oral, Nightly at bedtime, First dose on Thu03/28/19 at 2100, Until Discontinued 2119 (Given - Provider: KAVYA Trujillo) 2114 (Given - Provider: Angie Lr RN) levothyroxine (SYNTHROID) tablet 75 mcg 75 mcg, Oral, Daily (levothyroxine), First dose on Thu03/28/19 at 0945, Until Discontinued, Avoid iron, calcium, and antacids within 4 hours of administration. 0555 (Given - Provider: KAVYA Trujillo) 0621 (Given - Provider: Colleen Abarca RN-BAR) 0648 (Given - Provider: Amirah Nunez RN) metoprolol succinate ER (TOPROL-XL) 24 hr tablet 25 mg (CANCELED) 25 mg, Oral, Daily, First dose on Thu03/30/19 at 0900, Until Discontinued, May be split in half along the tablet score line; do not chew or crush. 0859 (Given - Provider: Carmen Rodney RN) 075 (Given - Provider: Carmen Rodney RN) metoprolol succinate ER (TOPROL-XL) 24 hr tablet 50 mg 50 mg, Oral, Daily, First dose (after last modification) on 04/02/19 at 0900, Until Discontinued, May be split in half along the tablet score line; do not chew or crush. 0827 (Given - Provider: Rakel Lopez RN-LP) pantoprazole EC (PROTONIX) tablet 40 mg 40 mg, Oral, Daily, First dose on 03/28/19 at 0945, Until Discontinued, Do not break, chew, or crush. 0859 (Given - Provider: Carmen Rodney RN) 0756 (Given - Provider: Carmen Rodney RN) 0827 (Given - Provider: Rakel Lopez RN-LP) PRN Medication Order 03/31/2019 04/01/2019 04/02/2019 acetaminophen (TYLENOL) tablet 650 mg 650 mg, Oral, Every 4 hours PRN, Mild pain (Scale 1 - 3), Moderate pain (Scale 4 - 7), Starting on Thu03/30/19 at 0339, Until 04/02/19 at 1359, Maximum dose of acetaminophen is 4000 mg from all sources in 24 hours. 2118 (Given - Provider: Colleen Abarca RN-LP) acetaminophen-codeine (TYLENOL #3) 300-30 MG tablet 1 tablet 1 tablet, Oral, DAILY PRN, Moderate pain (Scale 4 - 7), Starting on Thu03/30/19 at 1808, Until 04/02/19 at 1359, Maximum dose of acetaminophen is 4000 mg from all sources in 24 hours. methocarbamol (ROBAXIN) tablet 500 mg 500 mg, Oral, 4 times daily PRN, Muscle Spasms, Starting on Thu03/30/19 at 0736, Until 04/02/19 at 1359 documented in this encounter Care Teams Mechanical Systems Engineer Relationship Specialty Start Date End Date Mary Barber MD [address] [place] [id number] EP Die Maker CLINICAL CARDIAC ELECTROPHYSIOLOGY 09/15/16 Thomas Brian MD [address] [place] [address] CARDIOVASCULAR DISEASE 09/16/16 04/12/19 Josey Schwartz, AGACNP-BC [address] [facility] [address] [place] [id number] Nurse Practitioner Electrophysiology 09/18/16 12/22/19 documented as of this encounter
--- OUTSIDE RECORDS SUMMARY | 2024-01-27 07:56 | XMS_ITS | Encounter Summary ---
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 Oral, Daily, First dose on 01/29/19 at 0900, Until Discontinued, Do not break, chew, or crush. Given 02/04/2019 8:56 AM [employer] SUPERVISOR 81 mg Given 02/03/2019 8:55 AM [employer] SUPERVISOR 81 mg Given 02/02/2019 10:28 AM [employer] SUPERVISOR 81 mg atorvastatin (LIPITOR) tablet 80 mg 80 mg, Oral, Daily, First dose on 01/29/19 at 0900, Until Discontinued Given 02/04/2019 8:56 AM [employer] SUPERVISOR 80 mg Given 02/03/2019 8:56 AM [employer] SUPERVISOR 80 mg Given 02/02/2019 10:27 AM [employer] SUPERVISOR 80 mg docusate sodium (COLACE) capsule 100 mg 100 mg, Oral, 2 times daily, First dose on Thu01/28/19 at 2330, Until Discontinued Given 02/04/2019 8:56 AM [employer] SUPERVISOR 100 mg Given 02/03/2019 7:57 PM [employer] SUPERVISOR 100 mg Given 02/03/2019 8:56 AM GR[employer] SUPERVISOR 100 mg fentaNYL (SUBLIMAZE) injection 25 mcg 25 mcg, Intravenous, Every 2 hours PRN, Severe pain (Scale 8 - 10), Starting on Thu01/28/19 at 2256, Until 01/30/19 at 1412, If intravenous (IV) route has been ordered, give over 1-2 minutes. Given 01/29/2019 4:26 PM [employer] SUPERVISOR 25 mcg Given 01/29/2019 8:48 AM [employer] SUPERVISOR 25 mcg Given 01/29/2019 12:04 AM [employer] SUPERVISOR 25 mcg heparin (porcine) injection 5,000 Units 5,000 Units, Subcutaneous, Every 12 hours scheduled (2 times per day), First dose on 01/29/19 at 0900, Until Discontinued Given 02/04/2019 8:56 AM GR[employer] SUPERVISOR 5,000 Units Left Lower Abdomen Given 02/03/2019 7:58 PM [employer] SUPERVISOR 5,000 Units R ight Lower Abdomen Given 02/03/2019 8:55 AM GR[employer] SUPERVISOR 5,000 Units R ight Lower Abdomen hydrALAZINE (APRESOLINE) injection 5 mg 5 mg, Intravenous, Every 6 hours PRN, Other, for systolic > 160, Starting on Thu01/29/19 at 0036, Until Thu02/04/19 at 1449, Monitor HR and BP before dose and 15 min after IV dose. For IV push give over 1-2 minutes=5mg/min. hydrocodone-acetaminophen (NORCO) 5-325 MG tablet 1 tablet 1 tablet, Oral, Every 6 hours PRN, Moderate pain (Scale 4 - 7), Starting on Thu01/29/19 at 0852, Until Thu01/31/19 at 1842, Do not give on an empty stomach. Maximum dose of acetaminophen is 4000 mg from all sources in 24 hours. Given 01/31/2019 10:48 AM [employer] SUPERVISOR 1 tablet Given 01/31/2019 5:17 AM [employer] SUPERVISOR 1 tablet Given 01/30/2019 11:24 PM [employer] SUPERVISOR 1 tablet hydrocodone-acetaminophen (NORCO) 5-325 MG tablet 1 tablet 1 tablet, Oral, Every 4 hours PRN, Moderate pain (Scale 4 - 7), Starting on Thu01/31/19 at 1845, Until Thu02/04/19 at 1449, Do not give on an empty stomach. Maximum dose of acetaminophen is 4000 mg from all sources in 24 hours. ibuprofen (MOTRIN) tablet 400 mg 400 mg, Oral, Every 6 hours, First dose on Thu01/31/19 at 1900, Until Discontinued Given 02/04/2019 10:03 AM [employer] SUPERVISOR 40 0 mg Given 02/04/2019 3:41 AM GR[employer] SUPERVISOR 400 mg Given 02/03/2019 10:28 PM [employer] SUPERVISOR 400 mg ipratropium-albuterol (DUONEB) 0.5-2.5 (3) MG/3ML nebulizer solution 3 mL 3 mL, Nebulization, Every 6 hours, First dose on Thu01/29/19 at 0100, Until Discontinued Given 02/02/2019 6:44 AM [employer] SUPERVISOR 3 mLs Given 02/02/2019 12:21 AM [employer] SUPERVISOR 3 mLs Given 02/01/2019 7:57 PM [employer] SUPERVISOR 3 mLs ipratropium-albuterol (DUONEB) 0.5-2.5 (3) MG/3ML nebulizer solution 3 mL 3 mL, Nebulization, 2 times daily, First dose (after last modification) on Thu02/02/19 at 1900, Until Discontinued Given 02/04/2019 7:05 AM [employer] SUPERVISOR 3 mLs Given 02/03/2019 6:55 PM [employer] SUPERVISOR 3 mLs Given 02/03/2019 7:12 AM [employer] SUPERVISOR 3 mLs ipratropium-albuterol (DUONEB) 0.5-2.5 (3) MG/3ML nebulizer solution 3 mL 3 mL, Nebulization, Every 4 hours PRN, Wheezing, Starting on Thu02/02/19 at 0651, Until Thu02/04/19 at 1449 levothyroxine (SYNTHROID) tablet 75 mcg 75 mcg, Oral, Daily (levothyroxine), First dose on Thu01/29/19 at 0600, Until Discontinued, Avoid iron, calcium, and antacids within 4 hours of administration. Given 02/04/2019 5:30 AM [employer] SUPERVISOR 7 5 mcg Given 02/03/2019 6:25 AM [employer] SUPERVISOR 75 mcg Given 02/02/2019 6:15 AM [employer] SUPERVISOR 75 mcg lidocaine 4 % patch 1 patch 1 patch, Transdermal, Administer over 12 Hours, Every 24 hours, First dose on Thu01/28/19 at 2315, Until Discontinued Patch Applied 01/30/2019 11:24 PM [employer] SUPERVISOR 1 patch Other Patch Applied 01/30/2019 12:06 AM [employer] SUPERVISOR 1 patch Other Patch Applied 01/29/2019 12:05 AM GR[employer] SUPERVISOR 1 patch Other lidocaine 4 % patch 2 patch 2 patch, Transdermal, Administer over 12 Hours, Every 24 hours, First dose (after last modification) on Thu01/31/19 at 2315, Until Discontinued Patch Applied 02/03/2019 10:29 PM [employer] SUPERVISOR 2 patches Chest Patch Applied 02/02/2019 11:55 PM GR[employer] SUPERVISOR 2 patches Chest Patch Applied 02/01/2019 11:03 PM GR[employer] SUPERVISOR 2 patches Chest magnesium hydroxide (MILK OF MAGNESIA) 400 MG/5ML suspension 30 mL 30 mL, Oral, Daily as needed, Constipation, Starting on Thu02/02/19 at 1531, Until Thu02/04/19 at 1449, Shake Well magnesium sulfate 4 GM/100ML infusion 4 g 4 g, Intravenous, Once, 1 dose, On 01/30/19 at 0945 New Bag 01/30/2019 10:43 AM [employer] SUPERVISOR 4 g 25 mL/hr methocarbamol (ROBAXIN) tablet 500 mg 500 mg, Oral, 2 times daily, First dose on 01/29/19 at 0000, Until Discontinued Given 01/29/2019 8:48 AM [employer] SUPERVISOR 500 mg Given 01/29/2019 12:46 AM GR[employer] SUPERVISOR 500 mg methocarbamol (ROBAXIN) tablet 500 mg 500 mg, Oral, Every 6 hours, First dose (after last modification) on 01/29/19 at 1500, Until Discontinued Given 01/31/2019 3:48 PM GR[employer] SUPERVISOR 500 mg Given 01/31/2019 10:47 AM GR[employer] SUPERVISOR 500 mg Given 01/31/2019 3:24 AM GR[employer] SUPERVISOR 500 mg methocarbamol (ROBAXIN) tablet 750 mg 750 mg, Oral, Every 6 hours, First dose (after last modification) on 01/31/19 at 2100, Until Discontinued Given 02/04/2019 8:56 AM GR[employer] SUPERVISOR 750 mg Given 02/04/2019 3:40 AM GROUN[employer] SUPERVISOR 750 mg Given 02/03/2019 10:28 PM GR[employer] SUPERVISOR 750 mg metoprolol succinate ER (TOPROL-XL) 24 hr tablet 75 mg 75 mg, Oral, Daily, First dose on 01/29/19 at 0900, Until Discontinued, May be split in half along the tablet score line; do not chew or crush. Given 02/04/2019 8:56 AM GR[employer] SUPERVISOR 75 mg Given 02/03/2019 8:55 AM GROUN[employer] SUPERVISOR 75 mg Given 02/02/2019 10:28 AM GROUN[employer] SUPERVISOR 75 mg ondansetron (ZOFRAN-ODT) disintegrating tablet 4 mg 4 mg, Oral, Every 6 hours PRN, Nausea, Vomiting, Starting on 01/30/19 at 1132, Until Thu02/04/19 at 1449 Given 02/03/2019 11:55 PM [employer] SUPERVISOR 4 mg Given 02/01/2019 6:04 PM GR[employer] SUPERVISOR 4 mg Given 02/01/2019 10:05 AM GR[employer] SUPERVISOR 4 mg pantoprazole EC (PROTONIX) tablet 40 mg 40 mg, Oral, Daily, First dose on 01/29/19 at 0900, Until Discontinued, Do not break, chew, or crush. Given 02/04/2019 8:56 AM GR[employer] SUPERVISOR 40 mg Given 02/03/2019 8:56 AM GR[employer] SUPERVISOR 40 mg Given 02/02/2019 10:28 AM GROUN[employer] SUPERVISOR 40 mg potassium chloride CR (KLOR-CON M) tablet 40 mEq 40 mEq, Oral, Once, 1 dose, On 01/30/19 at 0945, Do not chew, crush, or suck on tablet. May break in half. May dissolve whole tablet in 120 mL of water and drink immediately. Given 01/30/2019 10:22 AM [employer] SUPERVISOR 40 mEq Senna (SENOKOT) 8.6 MG tablet 8.6 mg 8.6 mg, Oral, Nightly at bedtime, First dose on Thu01/31/19 at 2100, Until Discontinued Given 02/01/2019 11:02 PM GR[employer] SUPERVISOR 8.6 mg Given 01/31/2019 9:55 PM GR[employer] SUPERVISOR 8.6 mg Senna (SENOKOT) 8.6 MG tablet 8.6 mg 8.6 mg, Oral, 2 times daily, First dose (after last modification) on Thu02/02/19 at 2100, Until Discontinued Given 02/04/2019 8:56 AM GROUN[employer] SUPERVISOR 8.6 mg Given 02/03/2019 7:57 PM GROUN[employer] SUPERVISOR 8.6 mg Given 02/03/2019 8:56 AM GR[employer] SUPERVISOR 8.6 mg senna-docusate (SENOKOT-S) 8.6-50 MG tablet 1 tablet 1 tablet, Oral, Nightly at bedtime, First dose on Thu01/28/19 at 2330, Until Discontinued Given 01/30/2019 8:19 PM [employer] SUPERVISOR 1 tablet Given 01/29/2019 8:41 PM GR[employer] SUPERVISOR 1 tablet Given 01/29/2019 12:46 AM GROUN[employer] SUPERVISOR 1 tablet documented in this encounter Active and Recently Administered Medications Times are shown in GR[employer] SUPERVISOR. Scheduled Medication Order 02/02/2019 02/03/2019 02/04/2019 aspirin EC (ECOTRIN) tablet 81 mg 81 mg, Oral, Daily, First dose on 01/29/19 at 0900, Until Discontinued, Do not break, chew, or crush. 1028 (Given - Provider: Melia Santana RN) 0855 (Given - Provider: Cynthia Joseph RN) 0856 (Given - Provider: Rosa Puente RN) atorvastatin (LIPITOR) tablet 80 mg 80 mg, Oral, Daily, First dose on 01/29/19 at 0900, Until Discontinued 1027 (Given - Provider: Melia Santana RN) 0856 (Given - Provider: Cynthia Joseph RN) 0856 (Given - Provider: Rosa Puente RN) docusate sodium (COLACE) capsule 100 mg 100 mg, Oral, 2 times daily, First dose on Thu01/28/19 at 2330, Until Discontinued 1000 (Given - Provider: Melia Santana RN)2134 (Given - Provider: Ivette Johnson RN) 0856 (Given - Provider: Cynthia Joseph RN)195 (Given - Provider: Ivette Johnson RN) 0856 (Given - Provider: Rosa Puente RN) heparin (porcine) injection 5,000 Units 5,000 Units, Subcutaneous, Every 12 hours scheduled (2 times per day), First dose on Thu01/29/19 at 0900, Until Discontinued 1029 (Given - Provider: Melia Santana RN)2134 (Given - Provider: Ivette Johnson RN) 0855 (Given - Provider: Cynthia Joseph RN)195 (Given - Provider: Ivette Johnson RN) 0856 (Given - Provider: Rosa Puente RN) ibuprofen (MOTRIN) tablet 400 mg 400 mg, Oral, Every 6 hours, First dose on Thu01/31/19 at 1900, Until Discontinued 0432 (Given - Provider: Abdoulaye De La Cruz RN)1027 (Given - Provider: Melia Santana RN)1908 (Given - Provider: Melia Santana RN) 0148 (Given - Provider: Ivette Johnson RN)0855 (Given - Provider: Cynthia Joseph RN)0856 (Canceled Entry - Provider: Cynthia Joseph RN)1614 (Given - Provider: Cynthia Joseph RN)2228 (Given - Provider: Ivette Johnson RN) 0341 (Given - Provider: Ivette Johnson RN)1003 (Given - Provider: Rosa Puente RN) ipratropium-albuterol (DUONEB) 0.5-2.5 (3) MG/3ML nebulizer solution 3 mL (CANCELED) 3 mL, Nebulization, Every 6 hours, First dose on Thu01/29/19 at 0100, Until Discontinued 002 (Given - Provider: Shari Allred, TON)0644 (Given - Provider: Chance Geronimo, TON) ipratropium-albuterol (DUONEB) 0.5-2.5 (3) MG/3ML nebulizer solution 3 mL 3 mL, Nebulization, 2 times daily, First dose (after last modification) on Thu02/02/19 at 1900, Until Discontinued 2014 (Given - Provider: Vasu Bernabe, UNIX ENGINEER) 07 (Given - Provider: Kathryn Smallwood, TON)185 (Given - Provider: Vasu Bernabe, TON) 07 (Given - Provider: Ralph Patterson, TON) levothyroxine (SYNTHROID) tablet 75 mcg 75 mcg, Oral, Daily (levothyroxine), First dose on Thu01/29/19 at 0600, Until Discontinued, Avoid iron, calcium, and antacids within 4 hours of administration. 0615 (Given - Provider: Abdoulaye De La Cruz RN) 0625 (Given - Provider: Ivette Johnson, SIA) 0530 (Given - Provider: Ivette Johnson RN) lidocaine 4 % patch 2 patch 2 patch, Transdermal, Administer over 12 Hours, Every 24 hours, First dose (after last modification) on Thu01/31/19 at 2315, Until Discontinued 1524 (Patch Removed - Provider: Melia Santana RN)2355 (Patch Applied - Provider: Ivette Johnson RN) 1155 (Patch Removed - Provider: Cynthia Joseph RN)2229 (Patch Applied - Provider: Ivette Johnson RN) 1003 (Patch Removed - Provider: Rosa Puente RN) methocarbamol (ROBAXIN) tablet 750 mg 750 mg, Oral, Every 6 hours, First dose (after last modification) on Thu01/31/19 at 2100, Until Discontinued 0432 (Given - Provider: Abdoulaye De La Cruz RN)1028 (Given - Provider: Melia Santana RN)1524 (Given - Provider: Melia Santana RN)2134 (Given - Provider: Ivette Johnson RN) 0351 (Given - Provider: Ivette Johnson RN)0856 (Given - Provider: Cynthia Joseph, SIA)1614 (Given - Provider: Cynthia Joseph RN)1957 (Not Given - Provider: Ivette Johnson RN - Reason: Patient already took)8 (Given - Provider: Ivette Johnson RN) 0340 (Given - Provider: Ivette Johnson RN)0856 (Given - Provider: Rosa Puente RN) metoprolol succinate ER (TOPROL-XL) 24 hr tablet 75 mg 75 mg, Oral, Daily, First dose on 01/29/19 at 0900, Until Discontinued, May be split in half along the tablet score line; do not chew or crush. 1028 (Given - Provider: Melia Santana RN) 0855 (Given - Provider: Cynthia Joseph RN) 0856 (Given - Provider: Rosa Puente RN) pantoprazole EC (PROTONIX) tablet 40 mg 40 mg, Oral, Daily, First dose on 01/29/19 at 0900, Until Discontinued, Do not break, chew, or crush. 1028 (Given - Provider: Melia Santana RN) 0856 (Given - Provider: Cynthia Joseph RN) 0856 (Given - Provider: Rosa Puente RN) Senna (SENOKOT) 8.6 MG tablet 8.6 mg 8.6 mg, Oral, 2 times daily, First dose (after last modification) on Thu02/02/19 at 2100, Until Discontinued 2133 (Given - Provider: Ivette Johnson RN) 0856 (Given - Provider: Cynthia Joseph, SIA)195 (Given - Provider: Ivette Johnson RN) 0856 (Given - Provider: Rosa Puente RN) PRN Medication Order 02/02/2019 02/03/2019 02/04/2019 hydrALAZINE (APRESOLINE) injection 5 mg 5 mg, Intravenous, Every 6 hours PRN, Other, for systolic > 160, Starting on 01/29/19 at 0036, Until Thu02/04/19 at 1449, Monitor HR and BP before dose and 15 min after IV dose. For IV push give over 1-2 minutes=5mg/min. hydrocodone-acetaminophen (NORCO) 5-325 MG tablet 1 tablet 1 tablet, Oral, Every 4 hours PRN, Moderate pain (Scale 4 - 7), Starting on 01/31/19 at 1845, Until Thu02/04/19 at 1449, Do not give on an empty stomach. Maximum dose of acetaminophen is 4000 mg from all sources in 24 hours. ipratropium-albuterol (DUONEB) 0.5-2.5 (3) MG/3ML nebulizer solution 3 mL 3 mL, Nebulization, Every 4 hours PRN, Wheezing, Starting on Thu02/02/19 at 0651, Until Thu02/04/19 at 1449 magnesium hydroxide (MILK OF MAGNESIA) 400 MG/5ML suspension 30 mL 30 mL, Oral, Daily as needed, Constipation, Starting on Thu02/02/19 at 1531, Until Thu02/04/19 at 1449, Shake Well ondansetron (ZOFRAN-ODT) disintegrating tablet 4 mg 4 mg, Oral, Every 6 hours PRN, Nausea, Vomiting, Starting on 01/30/19 at 1132, Until 02/04/19 at 1449 2355 (Given - Provider: Ivette Johnson RN) documented in this encounter Care Teams Evening Sitter Relationship Specialty Start Date End Date Mary Barber MD [address] [place] [phone] EP Sex Offender Treatment Professional CLINICAL CARDIAC ELECTROPHYSIOLOGY 09/15/16 Thomas Brian MD [address] [place] [phone] CARDIOVASCULAR DISEASE 09/16/16 04/12/19 Jose[facility] [address] [place] [address] [place] [phone] Nurse Practitioner Electrophysiology 09/18/16 12/22/19 documented as of this encounter
--- OUTSIDE RECORDS SUMMARY | 2024-01-27 07:56 | XMS_ITS | Encounter Summary ---
Author Organization [facility] Address [address] [place] [address] [place] [address] Care Team Providers Care Grassland Conservationist Name Role Phone Mary Barber MD Unavailable Thomas Brian MD Unavailable Unavailable Josey Schwartz [facility] Unavailable [phone] Encounter Details Date Type Department Care Team (Late Contact Info) Description 05/21/2018 Orders Only [facility] [address] [place] [address] Mary Barber MD [address] [place] [address] Social History Tobacco Use Types [...] on file documented as of this encounter Plan of Treatment Upcoming Encounters Date Type Department Care Team (Late Contact Info) Description 02/15/2024 1:30 PM MIDDLE SCHOOL PROFESSIONAL Office Visit [facility] [address] [place] [phone] Tyrell Leiva PA-C [address] [place] [phone] 02/15/2024 1:30 PM MIDDLE SCHOOL PROFESSIONAL Allied Health/Nurse Visit [facility] [address] [place] [phone] Mary Barber MD [address] [place] [phone] 03/15/2024 11:15 AM MIDDLE SCHOOL PROFESSIONAL Office Visit [facility] [address] [place] [phone] Jim Tamez MD [address] [place], [place] [phone] 05/16/2024 1:15 AM CDT Allied Health/Nurse Visit [facility] [address] [place] [phone] Mary Barber MD [address] [place] [phone] 09/07/2024 9:00 AM CDT Office Visit [address] [place] [phone] Tiffany Badillo MD [address] [place], [place] [phone] documented as of this encounter Procedures Procedure Name Priority Date/Time Associated Diagnosis Comments ELECTROCARDIOGRAM (NON MIDMARK ACQUIRED) Routine 05/21/2018 11:33 AM CDT Paroxysmal atrial fibrillation (CMS/HCC HHS/HCC) NICM (nonischemic cardiomyopathy) (CMS/HCC HHS/HCC) Biventricular ICD (implantable cardioverter-defibr illator) in place Premature ventricular contractions documented in this encounter Results * ELECTROCARDIOGRAM (05/21/2018 11:33 AM CDT) 05/21/2018 11:3 3 AM CDT Narrative [facility] - 05/24/2018 7:20 AM CDT ? [facility], [facility] ?[address], [place] ??[address] ? Test Date: ?2018-05-21 Pat Name: ? RAKAN SHAW ?Department: ? Room: ? Gender: ? Female ? Shift Manager: ?? JBri : ?1935 ? Requested By: ZIAD BANG Order Number: [id number] ?Reading MD: ?? Ziad Bang ? Measurements Intervals ?Altha ? Rate: ? 101 ?P: ? IA: ? 0 ?QRS: ?107 QRSD: ? 125 ?T: ?26 QT: ? 378 ? QTc: ?490 ? Interpretive Statements NORMAL SINUS RHYTHM WITH ATRIAL-TRACKING VENTRICULAR PACING ABNORMAL RHYTHM ECG Procedure Note Mary Barber MD - 05/24/2018 [facility] [address] [place] [address] Test Date: 2018-05-21 Pat Name: RAKAN SHAW Department: Room: Gender: Female Shift Manager: Comfort : 1935 Requested By: MARY BARBER Order Number: [id number] Reading MD: Mayr Barber Measurements Intervals Altha Rate: 101 P: IA: 0 QRS: 107 QRSD: 125 T: 26 QT: 378 QTc: 490 Interpretive Statements NORMAL SINUS RHYTHM WITH ATRIAL-TRACKING VENTRICULAR PACING ABNORMAL RHYTHM ECG us Mary Barber MD PROCEDURES-ORDERABLE NO CHARGE F inal Result [facility] [address] [place] [address] documented in this encounter Visit Diagnoses Diagnosis Paroxysmal atrial fibrillation (CMS/HCC HHS/HCC)- Primary Atrial fibrillation NICM (nonischemic cardiomyopathy) (CMS/HCC HHS/HCC) Other primary cardiomyopathies Biventricular ICD (implantable cardioverter-defibrillator) in place Premature ventricular contractions Other premature beats documented in this encounter Care Teams Grassland Conservationist Relationship Specialty Start Date End Date Mary Barber MD [address] [place] [phone] EP Manager Traffic CLINICAL CARDIAC ELECTROPHYSIOLOGY 09/15/16 Thomas Brian MD [address] [place] [phone] CARDIOVASCULAR DISEASE 09/16/16 04/12/19 Jose[facility] Schwartz [facility] [address] [place] [address] [place] [phone] Nurse Practitioner Electrophysiology 09/18/16 12/22/19 documented as of this encounter
--- OUTSIDE RECORDS SUMMARY | 2024-01-27 07:56 | XMS_ITS | Encounter Summary ---
Author Organization [facility] Address [address] [place] [address] [place] [address] Care Team Providers Care Civil Engineering Intern Name Role Phone Mary Barber MD Unavailable Thomas Brian MD Unavailable Unavailable Josey Schwartz [facility] Unavailable [phone] Reason for Visit * Reason Comments Follow Up Encounter Details Date Type Department Care Team (Late st Contact Info) Description 11/17/2018 9:30 AM CDT Office Visit [facility] AT [address] [phone] Thomas Brian MD Follow Up Social History Tobacco Use Types [...] Sign Reading Time Taken Comments Blood Pressure 122/76 11/18/2018 8:44 AM CDT Pulse 60 11/18/2018 8:44 AM CDT Temperature - - Respiratory Rate 16 11/18/2018 8:44 AM CDT Oxygen Saturation - - Inhaled Oxygen Concentration - - Weight - - Height - - Body Mass Index - - documented in this encounter Progress Notes * Thomas Brian MD - 11/17/2018 9:30 AM CDT Reason for Visit: Follow Up History of Present Illness: Recommendations and Plan: Medications: Current Outpatient Medications: ??? aspirin 81 MG tablet, Take by mouth daily., Disp: , Rfl: ??? levothyroxine 75 MCG tablet, Take 75 mcg by mouth daily., Disp: , Rfl: ??? LISINOPRIL 5 MG tablet, TAKE ONE TABLET BY MOUTH ONCE DAILY, Disp: 90 tablet, Rfl: 3 ??? METOPROLOL SUCCINATE ER 50 MG 24 hr tablet, TAKE 1 AND 1/2 TABLETS BY MOUTH DAILY, Disp: 135 tablet, Rfl: 3 ??? Multiple Vitamins-Minerals (CENTRUM ADULTS OR), Take 1 tablet by mouth daily., Disp: , Rfl: ??? omeprazole 20 MG capsule, Take 20 mg by mouth daily as needed., Disp: , Rfl: 2 ??? ROSUVASTATIN 40 MG tablet, TAKE 1 TABLET BY MOUTH EVERY DAY, Disp: 90 tablet, Rfl: 3 ??? triamterene-hydrochlorothiazide 37.5-25 MG tablet, Take 1 tablet by mouth daily., Disp: , Rfl: Allergies Allergen Reactions ??? Hydrocodone-Acetaminophen Unknown ??? Levofloxacin Unknown ??? Oxycodone Unknown ??? Penicillins Unknown Past Medical History: Diagnosis Date ??? Atrial [...] Last attempt to quit: 09/23/1971 Years since quittin.1 ??? Smokeless tobacco: Never Used Substance Use Topics ??? Alcohol use: No ??? Drug use: No Family History Problem Relation Name Age of Onset ??? NV Mother ??? NV Father ??? CABG Brother ??? Stent Brother ??? Stroke Paternal Grandfather ??? Heart Disease Other premature coronary heart disease Family Status Relation Name Status ??? Mother at age 71 ??? Father at age 55 ??? Brother (Not Specified) ??? MGM at age 60 ??? MGF ??? PGF at age 70 ??? Other Other Family history is positive for premature coronary heart disease Review of Systems Constitutional: Negative for recent [...] depression and new or significant memory loss. Vitals: 11/18/18 0844 BP: 122/76 Pulse: 60 There is no height or weight on file to calculate BMI. Physical Exam Rate/Rhythm: regular rhythm and normal rate . Heart Sounds: normal heart sounds, normal S1 and normal S2 no gallop, no S3 sound, no S4 sound and no murmur. . PMI: PMI not displaced. Pulses: normal pulses Right Carotid pulses 2+, Left Carotid pulses 2+, Right Femoral pulses 2+, Left Femoral pulses 2+, Right DP pulses 2+, Left DP pulses 2+, negative for edema Constitutional: healthy appearance not distressed. . Neck: neck supple no JVD. . Pulmonary/Chest Wall: effort normal and breath sounds normal . HEENT: teeth/gums normal and oropharynx clear and moist. . Abdomen: no tenderness, no mass, no hepatomegaly, no splenomegaly, abdominal aorta not palpably enlarged and no abdominal aortic bruit. . Eyes: conjunctivae normal. Neurological: alert, oriented x 3 and appropriate for situation, . Skin: dry and warm no cyanosis and no clubbing. Musculoskeletal: no kyphosis Cardiovascular Comments: Diagnoses/Impression: No diagnosis found. [place] Documentation Completed: Atrial Fibrillation Referring Provider: No ref. provider found PCP: BEE EVANGELISTA MD T LICENSING CLERK * Thomas Brian MD - 11/17/2018 9:[address] Evangelista: I saw Ms. Shaffer for followup. This is a very pleasant 83-year-old lady with history of paroxysmalatrial fibrillation, refractory to medical therapy in the past for which she had AV trell ablation and implantation of dual-chamber pacemaker in 2006, followed by upgrade to a biventricular ICD in 2014 due to development of severe nonischemic cardiomyopathy, possibly related from right ventricular pacing. She developed intracranial hemorrhage on Warfarin therapy and underwent ligation of the leftatrial appendage using Lariat procedure by Dr. Barber, and has not been on anticoagulation since. Patient has been doing reasonably okay from heart failure standpoint. She has had no heart failure hospitalizations since I last saw her. Her last echo about a year ago showed stable mild LV dysfunction with EF of 40% to 45% with mild ascending aortic dilatation and mild aortic regurgitation. She denies any chest pain or chest tightness. She denies shortness of breath, orthopnea, PND, dizziness, or syncope. She has had some fatigue. She was seen by Dr. Barber's nurse practitioner this spring and continued medical management was recommended. Patient has had some spine problems for which she is undergoing therapy. IMPRESSION AND RECOMMENDATIONS: 1. History of nonischemic cardiomyopathy, LVEF 40% to 45%. She is on beta- rodolfo and MAXINE inhibitortherapy. I recommend continuing medical management. 2. History of paroxysmal AFib, status post AV trell ablation and pacemaker, which was eventually upgraded to an ICD for nonischemic cardiomyopathy. Patient is doing well from heart failure standpoint. She appears euvolemic on examination today. 3. Paroxysmal AFib. She is not on Coumadin due to history of intracranial bleeding for which she subsequently had a Lariat procedure. She is only on Aspirin. Overall, Ms. Shaffer is doing well. I would recommend followup in [address] Badillo with an echocardiogram to monitor her LV function and aortic valve. Thank you very much for allowing me to participate in her care. T LICENSING CLERK documented in this encounter Plan of Treatment Upcoming Encounters Date Type Department Care Team (Late st Contact Info) Description 02/15/2024 1:30 PM AGENT LICENSING CLERK Office Visit [facility] [address] [place] [phone] Tyrell Leiva, PA-C [address] [place] [phone] 02/15/2024 1:30 PM AGENT LICENSING CLERK Allied Health/Nurse Visit [facility] [address] [place] [phone] Mary Barber MD [address] [place] [phone] 03/15/2024 11:15 AM AGENT LICENSING CLERK Office Visit [facility] [address] [place] [phone] Jim Tamez MD [address] [place], [place] [phone] 05/16/2024 1:15 AM CDT Allied Health/Nurse Visit [facility] [address] [place] [phone] Mary Barber MD [address] [place] [address] 09/07/2024 9:00 AM CDT Office Visit [facility] [address] [place] [phone] Tiffany Badillo MD [address] [place] [address] documented as of this encounter Visit Diagnoses Diagnosis Paroxysmal atrial fibrillation ([facility]/HCC)- Primary Atrial fibrillation NICM (nonischemic cardiomyopathy) (CMS/HCC HHS/HCC) Other primary cardiomyopathies documented in this encounter Care Teams Civil Engineering Intern Relationship Specialty Start Date End Date Mary Barber MD [address] [place] [phone] EP Balance Engineer CLINICAL CARDIAC ELECTROPHYSIOLOGY 09/15/16 Thomas Brian MD [address] [place] [phone] CARDIOVASCULAR DISEASE 09/16/16 04/12/19 [facility] [address] [place] [phone] Nurse Practitioner Electrophysiology 09/18/16 12/22/19 documented as of this encounter
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
--- OUTSIDE RECORDS SUMMARY | 2024-01-27 07:57 | XMS_ITS | Encounter Summary ---
Author Organization [facility] Address [facility] [place] [address] [place] [address] Care Team Providers Care Medical Claims Processor Name Role Phone Mary Barber MD Unavailable Thomas Brian MD Unavailable Unavailable Josey Schwartz [facility] Unavailable [phone] Reason for Visit * Auth/Cert Specialty Diagnoses / Procedures Referred By Patrizia serra Referred To Contact Diagnoses Weight loss Dysphagia Weight loss [R63.4] Dysphagia [R13.10] Procedures EGD WITH BIOPSY Referral ID Status Reason Start Date Expiration Date Visits Re quested Visits Authorized [id number] 1 1 Encounter Details Date Type Department Care Team (Late st Contact Info) Description 01/15/2018 1:45 PM KENO ATTENDANT Anesthesia Event [facility] Endo/GI [address] [place] [address] Marquise Quijano MD [address] [place] [address] Carmen Mendoza, RN Anesthesia Record Procedure Summary Procedure Name Responsible Anesthesiologist Anesthesia Start Time Anesthesia Stop Time EGD WITH BIOPSY Marquise Quijano MD 01/15/18 1345 01/15 1413 Events Date Time Event Comment 01/15/2018 1256 1256 AN Anesthesia Prepped 1345 An Start Patient ID and consent checked and patient reassessed. 1345 An Start Data 1346 Face Mask Applied 1349 Anesthesia Ready 1410 an stop data 1413 Post Anesthetic Care Handoff I completed my handoff to the receiving nurse during which we: 1. Identified the patient 2. Identified the responsible provider 3. Reviewed the pertinent medical history 4. Discussed the surgical course 5. Reviewed intra-op anesthesia management and issues during anesthesia 6. Set expectations for post-procedure period 7. Allowed opportunity for questions and acknowledgement of understanding. 1413 An Stop 01/22/2018 1217 PB Charge This event is f or Chart Correction to drop the Anesthesia Placeholder [[id number]] Charge on anesthesia records per Incident #[id number]. Meds Name Total lidocaine (PF) (XYLOCAINE) 1% injection 100 mg propofol (DIPRIVAN) 500 mg/50 mL injecti on 259.84 mg propofol (DIPRIVAN) 500 mg/50 mL IV bolu s from infusion 60 mg lactated ringers infusion 500 mL * Agents Name O2 N2O Air Ancillary O2 * Blood No blood administrations on file. Lines, Drains, and Airways Type Details Placement Removal Peripheral IV Placement Date: 01/15/18; Placement Time: 1238; Size: 20 G; Orientation: Right; Location: Forearm; Site Prep: Chlorhexidine; Inserted By: Darrin STOVALL; Insertion attempts: 1; Patient Tolerance: Tolerated well; Removal Date: 01/15/18; Removal Time: 1445 01/15/18 1238 by Candace Clifford RN 01/15/18 1445 by Esther Nelson RN Supraglottic Airway Placement Date: 01/15/18; Placement Time: 1346; Airway Device: Nasal prong; Removal Date: 11/06/20; Removal Time: 1310 (removed prior to this hospital admission) 01/15/18 1346 by Ruth Myers CRNA 11/06/20 1310 by Ericka Pop RN documented in this encounter Social History [...] on file documented as of this encounter Progress Notes * Traci Gan - 01/22/2018 12:17 PM CST Addendum created 01/22/18 1217 by Traci Gan Intraprocedure Event edited ATTENDANT documented in this encounter OR Notes * Anesthesia Postprocedure Evaluation - Marquise Quijano MD - 01/15/2018 2:33 PM CST Anesthesia Post-op Note Sera Shaffer Procedure(s): EGD WITH BIOPSY (N/A ) Anesthesia type: MAC Vitals: 01/15/18 1228 BP: 137/74 Vitals: 01/15/18 1228 Pulse: 71 Vitals: 01/15/18 1228 Resp: 12 Vitals: 01/15/18 1228 Temp: 37.1 ??C Vitals: 01/15/18 1228 SpO2: 97% Patient Location: PACU Level of Consciousness: awake Pain Management: adequate analgesia Airway Patency: patent Respiratory Status: acceptable and spontaneous ventilation Cardiovascular Status: acceptable and hemodynamically stable Post-Op Nausea: none Postoperative Hydration: euvolemic Complications: no anesthesia complication ATTENDANT * Anesthesia Preprocedure Evaluation - Marquise Quijano MD - 01/14/2018 12:18 PM CST Anesthesia ROS/MED History Reviewed: Patient summary , Nursing notes , ECG, Family history anesthesia, Anesthesia history , Medications , Labs , Images/Studies Pre-Anesthetic State: alert, awake and responds appropriately Pulmonary Cardiovascular (+) pacemaker, hypertension, CAD, CHF, (Chronic), arrhythmia, (A-fib) ROS comment: ECHO 10/29/2017 EF 40-45% Neuro/Psych (+) TIA, depression, psychiatric problem, (anxiety) GI/Hepatic/Renal Comments: Dysphagia Nausea S/p gastric bypass in 1979' Endo/Other (+) obese (BMI 30), hypothyroidism GENERAL COMMENTS Procedure: EGD WITH BIOPSY (N/A ) Diagnosis: ?Weight loss (R63.4) ?Dysphagia (R13.10) EKG to be ordered on admission due to pacemaker placement Physical Evaluation Airway Mallampati: I TM Distance: >3 FB Neck ROM: normal Dental (upper dentures) Pulmonary Pulmonary exam normal Cardiovascular Cardiovascular exam normal Anesthesia Plan ASA 4 Intravenous Induction Anesthesia type: MAC Informed Consent Anesthetic plan and risks discussed with patient of whom consent was obtained. . ATTENDANT ATTENDANT ATTENDANT documented in this encounter Plan of Treatment Upcoming Encounters Date Type Department Care Team (Late st Contact Info) Description 02/15/2024 1:30 PM KENO ATTENDANT Office Visit [facility] ld [address] [place] [address] Tyrell Leiva PAHaylieC [address] [place] [address] 02/15/2024 1:30 PM KENO ATTENDANT Allied Health/Nurse Visit [facility] ld [address] [place] [address] Mary Barber MD [address] [place] [address] 03/15/2024 11:15 AM KENO ATTENDANT Office Visit [facility] [place] [address] Jim Tamez MD [address] [place] [address] 05/16/2024 1:15 AM CDT Allied Health/Nurse Visit [facility] [address] [place] [address] Mary Barber MD [address] [place] [address] 09/07/2024 9:00 AM CDT Office Visit [facility] [place] [address] Tiffany Badillo MD [address] [place] [address] documented as of this encounter Visit Diagnoses Not on filedocumented in this encounter Administered Medications Inactive Administered Medications - up to 3 most recent administrations Medication Order MAR Action Action Date Dose Rate Site lidocaine (PF) (XYLOCAINE) 1 % injection Intravenous, PRN, Starting on Thu01/15/18 at 1347, Until Thu01/15/18 at 1413, Anesthesia Intra-Op Given 01/15/2018 1:47 PM KENO ATTENDANT 100 mg propofol (DIPRIVAN) 500 mg/50 mL bolus PRN, Starting on Thu01/15/18 at 1348, Until 01/15/18 at 1413, Anesthesia Intra-Op Given 01/15/2018 1:48 PM KENO ATTENDANT 60 mg propofol (DIPRIVAN) IV bolus Intravenous, Continuous PRN, Starting on Thu01/15/18 at 1349, Until Thu01/15/18 at 1413, Anesthesia Intra-Op New Bag 01/15/2018 1:49 PM KENO ATTENDANT 200 mcg/kg/min 97.4 mL/hr documented in this encounter Care Teams Medical Claims Processor Relationship Specialty Start Date End Date Mary Barber MD [address] [place] [address] EP Management Manager CLINICAL CARDIAC ELECTROPHYSIOLOGY 09/15/16 Thomas Brian MD [address] [place] [address] CARDIOVASCULAR DISEASE 09/16/16 04/12/19 Josey Schwartz [facility] [address] [facility] [address] [place] [id number] Nurse Practitioner Electrophysiology 09/18/16 12/22/19 documented as of this encounter
--- OUTSIDE RECORDS SUMMARY | 2024-01-27 07:57 | XMS_ITS | Encounter Summary ---
Author Organization [facility] Address [facility] [place] [address] [place] [address] Care Team Providers Care Pipe Organ Technician Name Role Phone Mary Barber MD Unavailable Thomas Brian MD Unavailable Unavailable Josey Schwartz [facility] Unavailable [phone] Reason for Visit * Reason Onset Date Comments Results 11/09/2017 Encounter Details Date Type Department Care Team (Late st Contact Info) Description 11/09/2017 Telephone [employer] CARDIOVASCULAR [place] [employer] [address] [place] [address] Thomas Brian MD Results Social History Tobacco Use Types Packs/Day [...] as of this encounter Progress Notes * Gladis Grady, RN - 11/09/2017 1:02 PM CDT Spoke with pt on phone and informed of echo results and per Dr Brian to continue meds as prescribed and verified metop succinate dose.Stressed good BP control with aneurysm. Attempted to call pt -- left message to call office * Mercedes Fonseca RN - 11/09/2017 12:13 PM CDT Pt called for Gladis with Dr. Brian. Chart reviewed. Asked pt is she is taking metoprolol succ. Pt states she is taking metoprolol ER 50mg, taking 1.5 tabs for dose of 75mg daily. Pt requesting call back to [phone] * Gladis Grady RN - 11/09/2017 11:55 AM CDT Attempted to call pt -- left message to call office RE: Echo shows a better EF - per Dr Brian to continue meds as prescribed. Office received refill request For metop succ 50mg and office did not have on list. Needs verified documented in this encounter Plan of Treatment Upcoming Encounters Date Type Department Care Team (Late st Contact Info) Description 02/15/2024 1:30 PM LINE CLEANER Office Visit [facility] ld [address] [place] [phone] Tyrell Leiva, PAHaylieC [address] [place] [phone] 02/15/2024 1:30 PM LINE CLEANER Allied Health/Nurse Visit [facility] [address] [place] [phone] Mary Barber MD [address] [place] [phone] 03/15/2024 11:15 AM LINE CLEANER Office Visit [facility] [address] [place] [phone] Jim Tamez MD [address] [place] [address] 05/16/2024 1:15 AM CDT Allied Health/Nurse Visit [facility] [address] [place] [address] Mary Barber MD [address] [place] [phone] 09/07/2024 9:00 AM CDT Office Visit [facility] [address] [place] [phone] Tiffany Badillo MD [address] [place] [address] documented as of this encounter Visit Diagnoses Not on filedocumented in this encounter Care Teams Pipe Organ Technician Relationship Specialty Start Date End Date Mary Barber MD [address] [place] [phone] EP Community Health Specialist CLINICAL CARDIAC ELECTROPHYSIOLOGY 09/15/16 Thomas Brian MD [address] [place] [address] CARDIOVASCULAR DISEASE 09/16/16 04/12/19 Josey Schwartz [facility] [address] [facility] MAILBOX [address] [place] [address] Nurse Practitioner Electrophysiology 09/18/16 12/22/19 documented as of this encounter
--- OUTSIDE RECORDS SUMMARY | 2024-01-27 07:57 | XMS_ITS | Encounter Summary ---
Author Organization [facility] Address [address] [facility] [place] [address] [place] [address] Care Team Providers Care Industrial Gas Production Operator Name Role Phone Mary Barber MD Unavailable Thomas Brian MD Unavailable Unavailable Efren Josey [facility] Unavailable [phone] Encounter Details Date Type Department Care Team (Late Contact Info) Description 10/29/2017 Scan [facility] [address] [place] [phone] Scanned, Documents Social History Tobacco Use Types [...] (Late Contact Info) Description 02/15/2024 1:30 PM PROGRAM TECHNICIAN Office Visit [facility] ld [address] [place] [address] Tyrell Leiva, PA-C [address] [place] [phone] 02/15/2024 1:30 PM PROGRAM TECHNICIAN Allied Health/Nurse Visit [facility] [address] [place] [address] Mary Barber MD [address] [place] [address] 03/15/2024 11:15 AM PROGRAM TECHNICIAN Office Visit [facility] [address] [place] [address] Jim Tamez MD [address] [place] [address] 05/16/2024 1:15 AM CDT Allied Health/Nurse Visit [facility] [address] [place] [address] Mary Barber MD [address] [place] [address] 09/07/2024 9:00 AM CDT Office Visit [address] [place] [address] Tiffany Badillo MD [address] [place] [address] documented as of this encounter Procedures Procedure Name Priority Date/Time Associated Diagnosis Comments USE ECHOCARDIOGRAM Routine 10/29/2017 NICM (nonischemic cardiomyopathy) ([facility]) documented in this encounter Results * USE ECHOCARDIOGRAM (10/29/2017) Anatomical Region Laterality Modality Cardiac Echocardiogram us Thomas Brian MD ECHO Final Result documented in this encounter Visit Diagnoses Diagnosis NICM (nonischemic cardiomyopathy) ([facility]) Other primary cardiomyopathies documented in this encounter Care Teams Industrial Gas Production Operator Relationship Specialty Start Date End Date Mary Barber MD [address] [place] [address] EP Hospice Registered Nurse CLINICAL CARDIAC ELECTROPHYSIOLOGY 09/15/16 Thomas Brian MD [address] [place] [address] CARDIOVASCULAR DISEASE 09/16/16 04/12/[address] [facility] [address] [place] [address] [place] [address] Nurse Practitioner Electrophysiology 09/18/16 12/22/19 documented as of this encounter
--- OUTSIDE RECORDS SUMMARY | 2024-01-27 07:57 | XMS_ITS | Encounter Summary ---
Author Organization [facility] Address [facility] [place] [address] [place] [address] Care Team Providers Care Motion Picture Set Worker Name Role Phone Mary Barber MD Unavailable Thomas Brian MD Unavailable Unavailable Josey Schwartz [facility] Unavailable [phone] Reason for Visit * Auth/Cert Specialty Diagnoses / Procedures Referred By Patrizia serra Referred To Contact Diagnoses Weight loss Dysphagia Weight loss [R63.4] Dysphagia [R13.10] Procedures EGD WITH BIOPSY Referral ID Status Reason Start Date Expiration Date Visits Re quested Visits Authorized [id number] 1 1 Encounter Details Date Type Department Care Team (Late st Contact Info) Description 01/15/2018 1:30 PM BASKET HAND BRAIDER - 01/15/2018 2:03 PM BASKET HAND BRAIDER Surgery [facility] Endo/GI [address] [place] [address] Meena Erickson MD EGD WITH BIOPSY Surgery Details Date/Time Status Location OR Service Patient Class Case Class Case Type Trauma Case? 01/15/2018 1:30 PM Posted [facility] Endo 3 General Short Stay/Outpat ient Surgery E - Elective No Panel 1 Procedure LRB Anes Op Region Wound Class Comments EGD WITH BIOPSY N/A Monitor Anesthesia Care N/A Surgeon Surgeon Role Service Panel Fabio Chatterjee MD Resident - Assisting Plastics 1 Meena Erickson MD Primary General 1 Case Notes EKG before procedure documented in this encounter Social History Tobacco [...] Sign Reading Time Taken Comments Blood Pressure 137/74 01/15/2018 12:28 PM BASKET HAND BRAIDER Pulse 71 01/15/2018 12:28 PM BASKET HAND BRAIDER Temperature 37.1 ??C (98.8 ??F) 01/15/2018 12:[address] Respiratory Rate 12 01/15/2018 12:28 PM BASKET HAND BRAIDER Oxygen Saturation 97% 01/15/2018 12:28 PM BASKET HAND BRAIDER Inhaled Oxygen Concentration - - Weight 81.2 kg (179 lb) 01/15/2018 12:28 PM BASKET HAND BRAIDER Height 162.6 cm (5' 4 ) 01/15/2018 12:28 PM BASKET HAND BRAIDER Body Mass Index 30.73 01/15/2018 12:28 PM BASKET HAND BRAIDER documented in this encounter Discharge Instructions * Discharge Instructions* Fabio Chatterjee MD - 01/15/2018 2:45 PM BASKET HAND BRAIDER You may feel some bloating and discomfort after your procedure, this is normal. If you experience increasing abdominal pain or fevers >101.5 please call clinic at the number below. You are being prescribed esomeprazole (Nexium). Please take it as prescribed. You will take 40mg (TTabs) daily for two weeks, and then continue to take 20mg (1 Tab) every day afterwards. Please follow up with your primary care physician to continue this prescription. Please follow up with your Primary care physician within 2 weeks to discuss your recent procedure. Please follow up with Dr. Erickson at the [facility] in 4 weeks. You must call [phone] to schedule this appointment. ET HAND BRAIDER documented in this encounter Medications at Time of Discharge aspirin 81 MG tablet Take 1 tablet (81 mg total) by mouth daily. 04/29/2006 esomeprazole (NEXIUM) 20 MG capsule Take 2 capsules (40 mg total) by mouth daily for 14 days, THEN 1 capsule (20 mg total) daily for 30 days. 58 capsule 01/15/2018 02/28/2018 levothyroxine 75 MCG tablet Take 75 mcg by mouth daily. 12/23/2019 LISINOPRIL 5 MG tablet TAKE ONE TABLET BY MOUTH ONCE DAILY 90 tablet 3 09/28/2017 05/22/2020 METOPROLOL SUCCINATE 50 MG 24 hr tablet TAKE 1 AND 1/2 TABLETS (75 MG TOTAL) BY MOUTH DAILY. 135 tablet 3 11/09/2017 11/05/2018 Multiple Vitamins-Mineral s (CENTRUM ADULTS OR) Take 1 tablet by mouth daily. 11/06/2020 ROSUVASTATIN 40 MG tablet TAKE ONE TABLET BY MOUTH DAILY 90 tablet 3 05/12/2017 05/17/2018 triamterene-hydr ochlorothiazide 37.5-25 MG tablet Take 1 tablet by mouth daily. 12/22/2013 08/16/2019 documented as of this encounter H&P Notes * Fabio Chatterjee MD - 01/15/2018 1:37 PM CST HISTORY AND PHYSICAL INTERVAL NOTE: I have reviewed Rakan Shaffer History & Physical which was performed within the past 30 days. After examining Rakan Shaffer, no change has occurred in the patient's condition since the H&P was completed. Informed Consent Discussion: Risks, benefits, alternatives as well as the consequences of not performing the surgery/procedure were discussed with the patient and/or family/personal outbound call center 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. Questions were answered and the patient/family/personal outbound call center 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 verbalized understanding and desires to proceed. Cosigned by Meena Erickson MD at 01/15/2018 3:12 PM BASKET HAND BRAIDER ET HAND BRAIDER ET HAND BRAIDER documented in this encounter Plan of Treatment Upcoming Encounters Date Type Department Care Team (Late st Contact Info) Description 02/15/2024 1:30 PM BASKET HAND BRAIDER Office Visit [facility] [address] [place] [address] Tyrell Leiva, PA-C [address] [place] [address] 02/15/2024 1:30 PM BASKET HAND BRAIDER Allied Health/Nurse Visit [facility] ld [address] [place] [address] Mary Barber MD [address] [place] [phone] 147- 03/15/2024 11:15 AM BASKET HAND BRAIDER Office Visit [facility] [address] [address] Jim Tamez MD [address] [place], [place] [address] 612- 05/16/2024 1:15 AM CDT Allied Health/Nurse Visit [facility] [address] [place] [address] Mary Barber MD [address] [place] [address] 672- 09/07/2024 9:00 AM CDT Office Visit [facility] [address] [address] Tiffany Badillo MD [address] [place], [place] [address] [phone] documented as of this encounter Procedures Procedure Name Priority Date/Time Associated Diagnosis Comments PROCEDURE GENERIC 01/15/2018 2:0 8 PM BASKET HAND BRAIDER EGD WITH BIOPSY 01/15/2018 1:36 PM BASKET HAND BRAIDER Weight loss Dysphagia Case Notes EKG before procedure ECG 12-LEAD STAT 01/15/2018 12:17 PM BASKET HAND BRAIDER PATHOLOGY Routine 01/15/2018 12:00 AM BASKET HAND BRAIDER documented in this encounter Results * PROCEDURE GENERIC (01/15/2018 2:08 PM BASKET HAND BRAIDER) us Meena Erickson MD [facility] Final Resu lt * ECG 12 lead (01/15/2018 12:17 PM BASKET HAND BRAIDER) 01/15/2018 12:1 7 PM BASKET HAND BRAIDER Narrative [facility] - 01/15/2018 12:19 PM BASKET HAND BRAIDER ? [facility] ?[address] [place], [place] ??[address] ? Test Date: ?2018-01-15 Pat Name: ? RAKAN SHAFFER ?Department: ?? 1 ? Room: ? ENDOPOOL Gender: ? Female ? Director Craft Center: ?? : ?1935 ? Requested By: MEENA ERICKSON Order Number: [id number] ? Cee CORDERO: ?? Ramón Chilel ? Measurements Intervals ?[place] ? Rate: ? 71 ? P: ?8 WI: ? 117 ?QRS: ?114 QRSD: ? 134 ?T: ?19 QT: ? 466 ? QTc: ?508 ? Interpretive Statements ELECTRONIC ATRIAL PACEMAKER ELECTRONIC VENTRICULAR PACEMAKER ABNORMAL RHYTHM ECG ET HAND BRAIDER Procedure Note Ramón Chilel MD - 01/15/[address] [address] Test Date: 2018-01-15 Pat Name: [facility] Department: 1 Room: [facility] Gender: Female Director Craft Center: : 1935 Requested By: MEENA ERICKSON Order Number: [id number] Cee CORDERO: Ramón Chilel Measurements Intervals [place] Rate: 71 P: 8 WI: 117 QRS: 114 QRSD: 134 T: 19 QT: 466 QTc: 508 Interpretive Statements ELECTRONIC ATRIAL PACEMAKER ELECTRONIC VENTRICULAR PACEMAKER ABNORMAL RHYTHM ECG ET HAND BRAIDER Meena Erickson MD ECG ORDERABLES Final Result [facility] * Pathology (01/15/2018 12:00 AM BASKET HAND BRAIDER) PATHOLOGY [facility] ? Department of Laboratory Medicine ?[address] [facility] ?[place] [address] ? , extension [phone] ? Pathology Report ? Surgical Pathology Report Name: RAKAN SHAFFER LUIS EDUARDO ? Specimen #: [id number] Age: 1 1935 (Age: 82) ? Location: [facility] Sex: F ?Procedure Date: 01/15/2018 Hospital #: [id number] ?Date Received: 01/15/2018 Date Reported: 01/18/2018 Provider: MEENA ERICKSON ?FABIO CHATTERJEE Source: Esophagus, fistula, biopsy Preoperative Diagnosis: Weight loss, dysphagia. Gross Description: Received in formalin, labeled with a patient label and as fistula esophageal biopsies are four pieces of lundberg tissue ranging from 0.2 to 0.5 cm. ??The specimen is entirely submitted in one cassette. FINAL DIAGNOSIS: ESOPHAGUS, BIOPSY: ? - TISSUE FROM ESOPHAGUS AND GASTROESOPHAGEAL JUNCTION WITHOUT HISTOLOGIC ?ABNORMALITY. Electronically Signed Out ? Maco Slade M.D. [facility] Tissue specimen (specimen) ESOPHAGEAL STRUCTURE / Unknown 01/15/2018 2:03 PM BASKET HAND BRAIDER Meena Erickson MD PATHOLOGY/CYTOLOGY ORDERABLE S Final Result [facility] [address] [place] [address], [phone] documented in this encounter Visit Diagnoses Diagnosis Weight loss Loss of weight Dysphagia Dysphagia, unspecified documented in this encounter Administered Medications Inactive Administered Medications - up to 3 most recent administrations Medication Order MAR Action Action Date Dose Rate Site albuterol (PROVENTIL) (2.5 MG/3ML) 0.083% nebulizer solution 2.5 mg 2.5 mg, Nebulization, Once as needed, Wheezing, Shortness of breath, 1 dose, Starting on Thu01/15/18 at 1446, Until Thu01/19/18 at 1609, PACU labetalol (TRANDATE) injection 5 mg 5 mg, Intravenous, Every 5 min PRN, High blood pressure, 4 doses, Starting on Thu01/15/18 at 1446, Until Thu01/19/18 at 1609, For SBP greater than 170 mmHg. HOLD for HR less than 70 bpm., PACU lactated ringers bolus infusion 500 mL 500 mL, Intravenous, Administer over 15 Minutes, Once as needed, SBP less than 90 mmHg or DBP less than 40 mmHg, 1 dose, Starting on Thu01/15/18 at 1446, Until Thu01/19/18 at 1609, PACU lactated ringers infusion at 10 mL/hr, Intravenous, Continuous, Starting on Thu01/15/18 at 1300, Until Thu01/19/18 at 1609, Pre-Op New Bag 01/15/2018 12:39 PM BASKET HAND BRAIDER 1,000 mLs 10 mL/hr lactated ringers infusion at 10 mL/hr, Intravenous, Continuous, Starting on Thu01/15/18 at 1515, Until Thu01/19/18 at 1609, Infuse at TKO rate, Pre-Op morphine (PF) injection 2 mg 2 mg, Intravenous, Every 5 min PRN, Moderate pain (Scale 4 - 7), 5 doses, Starting on Thu01/15/18 at 1446, Until Thu01/19/18 at 1609, Maximum cumulative dose 10 mg. Do not administer if patient is overly sedated, SpO2 less than 90%, or Respiratory Rate less than 12. If more than one IV analgesic is ordered per pain level, use in this order: fentaNYL, morphine, HYDROmorphone. If desired pain control is not reached, move to next ordered medication at next dosing interval., PACU ondansetron (ZOFRAN) injection 4 mg 4 mg, Intravenous, Once as needed, Nausea, Vomiting, 1 dose, Starting on Thu01/15/18 at 1446, Until Thu01/19/18 at 1609, Administer slowly over 3-4 minutes. If more than one antiemetic is ordered, use in this order: ondansetron, diphenhydramine, metoclopramide, haloperidol, promethazine. If nausea / vomiting still not controlled, move to next ordered medication., PACU documented in this encounter Active and Recently Administered Medications Times are shown in BASKET HAND BRAIDER. Continuous Medication Order 01/13/2018 01/14/2018 01/15/2018 lactated ringers infusion at 10 mL/hr, Intravenous, Continuous, Starting on Thu01/15/18 at 1300, Until Thu01/19/18 at 1609, Pre-Op 1239 (New Bag - Prov ider: Candace Clifford RN)1409 (Anesthesia Volume Adjustment - Provider: Ruth Myers CRNA) lactated ringers infusion at 10 mL/hr, Intravenous, Continuous, Starting on Thu01/15/18 at 1515, Until Thu01/19/18 at 1609, Infuse at TKO rate, Pre-Op 1515 (Canceled Entry - Provider: Automatic Discharge Provider - Comment: Automatically canceled at discontinue of medication order) PRN Medication Order 01/13/2018 01/14/2018 01/15/2018 albuterol (PROVENTIL) (2.5 MG/3ML) 0.083% nebulizer solution 2.5 mg 2.5 mg, Nebulization, Once as needed, Wheezing, Shortness of breath, 1 dose, Starting on Thu01/15/18 at 1446, Until Thu01/19/18 at 1609, PACU labetalol (TRANDATE) injection 5 mg 5 mg, Intravenous, Every 5 min PRN, High blood pressure, 4 doses, Starting on Thu01/15/18 at 1446, Until Thu01/19/18 at 1609, For SBP greater than 170 mmHg. HOLD for HR less than 70 bpm., PACU lactated ringers bolus infusion 500 mL 500 mL, Intravenous, Administer over 15 Minutes, Once as needed, SBP less than 90 mmHg or DBP less than 40 mmHg, 1 dose, Starting on Thu01/15/18 at 1446, Until Thu01/19/18 at 1609, PACU morphine (PF) injection 2 mg 2 mg, Intravenous, Every 5 min PRN, Moderate pain (Scale 4 - 7), 5 doses, Starting on Thu01/15/18 at 1446, Until Thu01/19/18 at 1609, Maximum cumulative dose 10 mg. Do not administer if patient is overly sedated, SpO2 less than 90%, or Respiratory Rate less than 12. If more than one IV analgesic is ordered per pain level, use in this order: fentaNYL, morphine, HYDROmorphone. If desired pain control is not reached, move to next ordered medication at next dosing interval., PACU ondansetron (ZOFRAN) injection 4 mg 4 mg, Intravenous, Once as needed, Nausea, Vomiting, 1 dose, Starting on Thu01/15/18 at 1446, Until Thu01/19/18 at 1609, Administer slowly over 3-4 minutes. If more than one antiemetic is ordered, use in this order: ondansetron, diphenhydramine, metoclopramide, haloperidol, promethazine. If nausea / vomiting still not controlled, move to next ordered medication., PACU documented in this encounter Care Teams Motion Picture Set Worker Relationship Specialty Start Date End Date Mary Barber MD [address] [place] [address] EP [employer] CLINICAL CARDIAC ELECTROPHYSIOLOGY 09/15/16 Thomas Brian MD [address] [place] [phone] CARDIOVASCULAR DISEASE 09/16/16 04/12/19 [facility] [address] [place] [address] [place] [id number] Nurse Practitioner Electrophysiology 09/18/16 12/22/19 documented as of this encounter
--- OUTSIDE RECORDS SUMMARY | 2024-01-27 07:57 | XMS_ITS | Encounter Summary ---
Author Organization [facility] Address [facility] [place] [address] [place] [address] Care Team Providers Care Acds Block 1 Operator Name Role Phone Mary Barber MD Unavailable Thomas Brian MD Unavailable Unavailable Josey Schwartz [facility] Unavailable [phone] Reason for Visit * Reason Onset Date Comments Appointment Request 04/29/2018 Due for reca ll, appt scheduled, letter sent Encounter Details Date Type Department Care Team ([facility] st Contact Info) Description 04/29/2018 Telephone [employer] [facility] [address] [place] [address] Mary Barber MD [address] [place] [address] Appointment Request (Due for recall, appt scheduled, letter sent ) Social History Tobacco Use Types Packs/Day [...] as of this encounter Progress Notes * Chanell Johnson - 04/29/2018 4:24 PM CDT Due for recall, appt scheduled, letter sent for 05/21/18 at 11:00am with device/Josey Schwartz NP. documented in this encounter Plan of Treatment Upcoming Encounters Date Type Department Care Team (Late st Contact Info) Description 02/15/2024 1:30 PM CREDIT CHARGE AUTHORIZER Office Visit [facility] ld [address] [place] [address] Tyrell Leiva PA-C [address] [place] [address] 02/15/2024 1:30 PM CREDIT CHARGE AUTHORIZER Allied Health/Nurse Visit [facility] [address] [place] [address] Mary Barber MD [address] [place] [address] 03/15/2024 11:15 AM CREDIT CHARGE AUTHORIZER Office Visit [facility] [address] [place] [address] Jim Tamez MD [address] [place] [address] 05/16/2024 1:15 AM CDT Allied Health/Nurse Visit [facility] [address] [place] [address] Mary Barber MD [address] [place] [address] 09/07/2024 9:00 AM CDT Office Visit [facility] [place] [address] [place] [address] Tiffany Badillo MD [address] [place] [address] documented as of this encounter Visit Diagnoses Not on filedocumented in this encounter Care Teams Acds Block 1 Operator Relationship Specialty Start Date End Date Mary Barber MD [address] [place] [phone] EP [employer] CLINICAL CARDIAC ELECTROPHYSIOLOGY 09/15/16 Thomas Brian MD [address] [place] [phone] CARDIOVASCULAR DISEASE 09/16/16 04/12/19 [facility] [address] [facility] [address] [place] [phone] Nurse Practitioner Electrophysiology 09/18/16 12/22/19 documented as of this encounter
--- OUTSIDE RECORDS SUMMARY | 2024-01-27 07:57 | XMS_ITS | Encounter Summary ---
Author Organization [facility] Address [address] [facility] [place] [address] [place] [address] Care Team Providers Care Shaper Hand Name Role Phone Mary Barber MD Unavailable Thomas Brian MD Unavailable Unavailable Josey Schwartz [facility] Unavailable [phone] Encounter Details Date Type Department Care Team (Late Contact Info) Description 10/29/2017 Abstract [facility] [address] [place] [address] Thomas Brian MD Social History Tobacco Use Types Packs/Day Years [...] (Late Contact Info) Description 02/15/2024 1:30 PM SIX SIGMA BLACK BELT ENGINEER Office Visit [facility] [address] [place] [address] [phone] Tyrell Leiva, PA-C [address] [place] [address] 02/15/2024 1:30 PM SIX SIGMA BLACK BELT ENGINEER Allied Health/Nurse Visit [facility] [address] [place] [address] Mary Barber MD [address] [place] [address] 03/15/2024 11:15 AM SIX SIGMA BLACK BELT ENGINEER Office Visit [facility] [address] [place] [address] Jim Tamez MD [address] [place], [place] [address] 05/16/2024 1:15 AM CDT Allied Health/Nurse Visit [facility] [address] [place] [address] Mary Barber MD [address] [place] [address] 09/07/2024 9:00 AM CDT Office Visit [address] [place] [address] Tiffany Badillo MD [address] [place] [address] documented as of this encounter Visit Diagnoses Diagnosis Chronic atrial fibrillation ([facility]/HCC [facility]/HCC) Atrial fibrillation documented in this encounter Care Teams Shaper Hand Relationship Specialty Start Date End Date Mary Barber MD [address] [place] [phone] Log Preparer CLINICAL CARDIAC ELECTROPHYSIOLOGY 09/15/16 Thomas Brian MD [address] [place] [phone] CARDIOVASCULAR DISEASE 09/16/16 04/12/19 Josey Schwartz, AGACNP-BC [address] [facility] [address] [place], [place] [address] Nurse Practitioner Electrophysiology 09/18/16 12/22/19 documented as of this encounter
--- OUTSIDE RECORDS SUMMARY | 2024-01-27 07:57 | XMS_ITS | Encounter Summary ---
Author Organization [facility] Address [address] [place] [address] [place] [address] Care Team Providers Care Electronic Warfare Officer Name Role Phone Mary Barber MD Unavailable Thomas Brian MD Unavailable Unavailable Efren Josey [facility] Unavailable [phone] Encounter Details Date Type Department Care Team (Late Contact Info) Description 10/30/2017 Scan [employer] [facility] [address] [place] [address] Scanned, Documents Social History Tobacco Use Types [...] (Late Contact Info) Description 02/15/2024 1:30 PM IOS DEVELOPER Office Visit [facility] ld [address] [place] [address] Tyrell Leiva, PA-C [address] [place] [address] 02/15/2024 1:30 PM IOS DEVELOPER Allied Health/Nurse Visit [facility] [address] [place] [address] Mary Barber MD [address] [place] [address] 03/15/2024 11:15 AM IOS DEVELOPER Office Visit [facility] [address] [place] [address] Jim Tamez MD [address] [place], [place] [address] 05/16/2024 1:15 AM CDT Allied Health/Nurse Visit [facility] ld [address] [place] [address] [phone] Mary Barber MD [address] [place] [address] 09/07/2024 9:00 AM CDT Office Visit [facility] [address] [place] [address] Tiffany Badillo MD [address] [place] [address] documented as of this encounter Visit Diagnoses Not on filedocumented in this encounter Care Teams Electronic Warfare Officer Relationship Specialty Start Date End Date Mary Barber MD [address] [place] [address] EP Bridge Instructor CLINICAL CARDIAC ELECTROPHYSIOLOGY 09/15/16 Thomas Brian MD [address] [place] [address] CARDIOVASCULAR DISEASE 09/16/16 04/12/19 Josey Schwartz, AGACNP-BC [address] [facility] [address] [place] [address] Nurse Practitioner Electrophysiology 09/18/16 12/22/19 documented as of this encounter
--- OUTSIDE RECORDS SUMMARY | 2024-01-27 07:57 | XMS_ITS | Encounter Summary ---
Author Organization [facility] Address [address] [facility] [place] [address] [place] [address] Care Team Providers Care Plumbing Drafter Name Role Phone Mary Barber MD Unavailable Thomas Brian MD Unavailable Unavailable Efren Josey [facility] Unavailable [phone] Encounter Details Date Type Department Care Team (Late Contact Info) Description 12/23/2017 Abstract [facility] [address] [facility] [place] [address] , Milagro Gage MD Social History Tobacco Use Types Packs/Day [...] (Late Contact Info) Description 02/15/2024 1:30 PM BLACK OFF WORKER Office Visit [facility] [address] [place] [address] Tyrell Leiva PA-C [address] [place] [address] 02/15/2024 1:30 PM BLACK OFF WORKER Allied Health/Nurse Visit [facility] [address] [place] [address] Mary Barber MD [address] [place] [address] 03/15/2024 11:15 AM BLACK OFF WORKER Office Visit [facility] [address] [place] [address] Jim Tamez MD [address] [place] [address] 05/16/2024 1:15 AM CDT Allied Health/Nurse Visit [facility] [address] [place] [address] Mary Barber MD [address] [place] [address] 09/07/2024 9:00 AM CDT Office Visit [facility] [address] [place] [address] Tiffany Badillo MD [address] [place] [address] documented as of this encounter Visit Diagnoses Diagnosis Gastro-esophageal reflux disease without esophagitis Esophageal reflux documented in this encounter Care Teams Plumbing Drafter Relationship Specialty Start Date End Date Mary Barber MD [address] [place] [phone] EP Beauty Sales Consultant CLINICAL CARDIAC ELECTROPHYSIOLOGY 09/15/16 Thomas Brian MD [address] [place] [address] CARDIOVASCULAR DISEASE 09/16/16 04/12/19 Josey Schwartz, AGACNP-BC [address] [facility] [address] [place] [address] Nurse Practitioner Electrophysiology 09/18/16 12/22/19 documented as of this encounter
--- OUTSIDE RECORDS SUMMARY | 2024-01-27 07:57 | XMS_ITS | Encounter Summary ---
Author Organization [facility] Address On license of [facility] [facility] [address] [place] [address] Care Team Providers Care Circus Laborer Name Role Phone Mary Barber MD Unavailable hTomas Brian MD Unavailable Unavailable Josey Schwartz [facility] Unavailable [phone] Reason for Visit * Auth/Cert Specialty Diagnoses / Procedures Referred By Patrizia serra Referred To Contact Diagnoses Weight loss Dysphagia Weight loss [R63.4] Dysphagia [R13.10] Procedures EGD WITH BIOPSY Referral ID Status Reason Start Date Expiration Date Visits Re quested Visits Authorized [id number] 1 1 Encounter Details Date Type Department Care Team (Latest Contact Info) Description 01/15/2018 11:58 AM SOA ENGINEER - 01/15/2018 5:00 PM [facility] Hospital Encounter [facility] Endo/GI [address] [place] [address] Meena Erickson MD Discharge Disposition: Home or Self Care [...] Sign Reading Time Taken Comments Blood Pressure 142/74 01/15/2018 2:45 PM SOA ENGINEER Pulse 69 01/15/2018 2:45 PM SOA ENGINEER Temperature 37.1 ??C (98.8 ??F) 01/15/2018 12:[address] Respiratory Rate 18 01/15/2018 2:45 PM SOA ENGINEER Oxygen Saturation 99% 01/15/2018 2:45 PM SOA ENGINEER Inhaled Oxygen Concentration - - Weight 81.2 kg (179 lb) 01/15/2018 12:28 PM SOA ENGINEER Height 162.6 cm (5' 4 ) 01/15/2018 12:28 PM SOA ENGINEER Body Mass Index 30.73 01/15/2018 12:28 PM SOA ENGINEER documented in this encounter Discharge Instructions * Discharge Instructions* Fabio Chatterjee MD - 01/15/2018 2:45 PM SOA ENGINEER You may feel some bloating and discomfort [...] follow up with Dr. Erickson at the [facility] in 4 weeks. You must call [phone] to schedule this appointment. ENGINEER documented in this encounter Medications at Time [...] were discussed with the patient and/or family/personal rental 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. Questions were answered and the patient/family/personal rental 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 verbalized understanding and desires to proceed. Cosigned by Meena Erickson MD at 01/15/2018 3:12 PM SOA ENGINEER ENGINEER ENGINEER documented in this encounter Plan of Treatment Upcoming Encounters Date Type Department Care Team (Late st Contact Info) Description 02/15/2024 1:30 PM SOA ENGINEER Office Visit [facility] ld [address] [place] [address] Tyrell Leiva PA-C [address] [place] [address] 02/15/2024 1:30 PM SOA ENGINEER Allied Health/Nurse Visit [facility] ld [address] [place] [address] Mary Barber MD [address] [place] [address] 03/15/2024 11:15 AM SOA ENGINEER Office Visit [address] [place] [address] Jim Tamez MD [address] [place] [address] 05/16/2024 1:15 AM CDT Allied Health/Nurse Visit [facility] [address] [place] [address] Mary Barber MD [address] [place] [address] 09/07/2024 9:00 AM CDT Office Visit [address] [place] [address] Tiffany Badillo MD [address] [place] [address] documented as of this encounter Procedures Procedure Name Priority Date/Time Associated Diagnosis Comments PROCEDURE GENERIC 01/15/2018 2:0 8 PM SOA ENGINEER EGD WITH BIOPSY 01/15/2018 1:36 PM SOA ENGINEER Weight loss Dysphagia Case Notes EKG before procedure ECG 12-LEAD STAT 01/15/2018 12:17 PM SOA ENGINEER PATHOLOGY Routine 01/15/2018 12:00 AM SOA ENGINEER documented in this encounter Results * PROCEDURE GENERIC (01/15/2018 2:08 PM SOA ENGINEER) us Meena Erickson MD [facility] Final Resu lt * ECG 12 lead (01/15/2018 12:17 PM SOA ENGINEER) 01/15/2018 12:1 7 PM SOA ENGINEER Narrative [facility] - 01/15/2018 12:19 PM SOA ENGINEER ? [facility] ?[address] [place], [place] ??[address] ? Test Date: ?2018-01-15 Pat Name: ? RAKAN SHAFFER ?Department: ?? 1 ? Room: ? ENDOPOOL Gender: ? Female ? Senior System Operator: ?? : ?1935 ? Requested By: MEENA ERICKSON Order Number: [id number] ? Reading MD: ?? Ramón Chilel ? Measurements Intervals ?[place] ? Rate: ? 71 ? P: ?8 MA: ? 117 ?QRS: ?114 QRSD: ? 134 ?T: ?19 QT: ? 466 ? QTc: ?508 ? Interpretive Statements ELECTRONIC ATRIAL PACEMAKER ELECTRONIC VENTRICULAR PACEMAKER ABNORMAL RHYTHM ECG ENGINEER Procedure Note Ramón Chilel MD - 01/15/[address] [address] Test Date: 2018-01-15 Pat Name: RAKAN SHAFFER Department: 1 Room: [facility] Gender: Female Senior System Operator: : 1935 Requested By: MEENA ERICKSON Order Number: [id number] Cee MD: Ramón Chilel Measurements Intervals [place] Rate: 71 P: 8 MA: 117 QRS: 114 QRSD: 134 T: 19 QT: 466 QTc: 508 Interpretive Statements ELECTRONIC ATRIAL PACEMAKER ELECTRONIC VENTRICULAR PACEMAKER ABNORMAL RHYTHM ECG ENGINEER us Meena Erickson MD ECG ORDERABLES Final Result [facility] * Pathology (01/15/2018 12:00 AM SOA ENGINEER) PATHOLOGY [facility] ? Department of Laboratory Medicine ?[address] [facility] ?[place] [address] ? , extension [phone] ? Pathology Report ? Surgical Pathology Report Name: RAKAN SHAFFER ? Specimen #: [id number] Age: 1 1935 (Age: 82) ? Location: [facility] Sex: F ?Procedure Date: 01/15/2018 Hospital #: [id number] ?Date Received: 01/15/2018 Date Reported: 01/18/2018 Provider: [...] Electronically Signed Out ? Maco Slade M.D. [facility] Tissue specimen (specimen) ESOPHAGEAL STRUCTURE / Unknown 01/15/2018 2:03 PM SOA ENGINEER Meena Erickson MD PATHOLOGY/CYTOLOGY ORDERABLE S Final Result [facility] [address] [place] [address], [id number] documented in this encounter Visit Diagnoses Not [...] 1609, Pre-Op New Bag 01/15/2018 12:39 PM SOA ENGINEER 1,000 mLs 10 mL/hr lactated ringers infusion [...] Recently Administered Medications Times are shown in SOA ENGINEER. Continuous Medication Order 01/13/2018 01/14/2018 01/15/2018 lactated [...] PACU documented in this encounter Care Teams Circus Laborer Relationship Specialty Start Date End Date Mary Barber MD [address] [place] [address] EP Floor Supervisor CLINICAL CARDIAC ELECTROPHYSIOLOGY 09/15/16 Thomas Brian MD [address] [place] [address] CARDIOVASCULAR DISEASE 09/16/16 04/12/19 Josey Schwartz, AGACNP-BC [address] [facility] [address] [place], [place] [address] Nurse Practitioner Electrophysiology 09/18/16 12/22/19 documented as of this encounter
--- OUTSIDE RECORDS SUMMARY | 2024-01-27 07:57 | XMS_ITS | Encounter Summary ---
Author Organization [facility] Address [facility] [place] [address] [place] [address] Care Team Providers Care Coil Winder Strap Name Role Phone Mray Barber MD Unavailable Thomas Brian MD Unavailable Unavailable Efren Josey [facility] Unavailable [phone] Reason for Visit * Reason Comments Lab (SCAN) Encounter Details Date Type Department Care Team (Late Contact Info) Description 11/02/2017 Scan [facility] [address] [place] [address] Scanned, Documents Lab (SCAN) Social History Tobacco Use Types Packs/Day [...] (Late Contact Info) Description 02/15/2024 1:30 PM BUSH HOG OPERATOR Office Visit [facility] ld [address] [place] [address] Tyrell Leiva, GREYC [address] [place] [address] 02/15/2024 1:30 PM BUSH HOG OPERATOR Allied Health/Nurse Visit [facility] ld [address] [place] [address] Mary Barber MD [address] [place] [address] 03/15/2024 11:15 AM BUSH HOG OPERATOR Office Visit [facility] [address] [place] [address] Jim Tamez MD [address] [place] [address] 05/16/2024 1:15 AM CDT Allied Health/Nurse Visit [facility] [address] [place] [address] Mary Barber MD [address] [place] [address] 09/07/2024 9:00 AM CDT Office Visit [address] [place] [address] Tiffany Badillo MD [address] [place] [address] Scheduled Orders Name Type Priority Associated Diagnoses Orde r Schedule OUTSIDE LAB Lab Routine Ordered: 10/11 documented as of this encounter Visit Diagnoses Not on filedocumented in this encounter Care Teams Coil Winder Strap Relationship Specialty Start Date End Date Mary Barber MD [address] [place] [address] EP Assembly Line Machine Operator CLINICAL CARDIAC ELECTROPHYSIOLOGY 09/15/16 Thomas Brian MD [address] [place] [address] CARDIOVASCULAR DISEASE 09/16/16 04/12/19 Josey Schwartz, [facility] [address] [address] Nurse Practitioner Electrophysiology 09/18/16 12/22/19 documented as of this encounter
--- OUTSIDE RECORDS SUMMARY | 2024-01-27 07:58 | XMS_ITS | Encounter Summary ---
Author Organization [facility] Address [address] [facility] [place] [address] [place] [address] Care Team Providers Care Green Chainer Name Role Phone Mary Barber MD Unavailable Thomas Brian MD Unavailable Unavailable Efren Josey [facility] Unavailable [phone] Qasim Garrett DO Primary Care Provider [phone] Tiffany Badillo MD Unavailable [phone] Erick Abdi MD Unavailable [phone] Jim Tamez MD Unavailable Encounter Details Date Type Department Care Team (Late st Contact Info) Description 04/25/2017 Abstract [facility] [address] [place], [place] [id number] , Generic Conversion, Social History Tobacco Use Types Packs/Day Years [...] st Contact Info) Description 02/15/2024 1:30 PM EXAMINATION GRADER Office Visit [facility] [address] [place] [address] Tyrell Leiva PA-C [address] [place] [address] 02/15/2024 1:30 PM EXAMINATION GRADER Allied Health/Nurse Visit [facility] ld [address] [place] [address] Mary Barber MD [address] [place] [address] 03/15/2024 11:15 AM EXAMINATION GRADER Office Visit [facility] [address] [place] [address] Jim Tamez MD [address] [place] [address] 05/16/2024 1:15 AM CDT Allied Health/Nurse Visit [facility] ld [address] [place] [address] Mary Barber MD [address] [place] [address] 09/07/2024 9:00 AM CDT Office Visit [facility] [address] [place] [address] Tiffany Badillo MD [address] [place] [address] documented as of this encounter Visit Diagnoses Not on filedocumented in this encounter Care Teams Green Chainer Relationship Specialty Start Date End Date Qasim Garrett DO [address] [place] [address] PCP - General FAMILY PRACTICE 04/13/19 Mary Barber MD [address] [place] [phone] EP Chore Worker CLINICAL CARDIAC ELECTROPHYSIOLOGY 09/15/16 Thomas Brian MD [address] [place] [address] CARDIOVASCULAR DISEASE 09/16/16 04/12/19 Josey Schwartz [facility] [address] [place] [address] Nurse Practitioner Electrophysiology 09/18/16 12/22/19 Tiffany Badillo MD [address] [place] [address] Consulting Physician INTERVENTIONAL CARDIOLOGY 12/23/19 Erick Abdi MD [address] [place] [address] Consulting Physician PAIN MANAGEMENT 09/06/20 Jim Tamez MD [address] [place] [address] Consulting Physician INTERNAL MEDICINE 09/10/23 documented as of this encounter
--- OUTSIDE RECORDS SUMMARY | 2024-01-27 07:58 | XMS_ITS | Encounter Summary ---
Author Organization [facility] Address [address] [facility] [place] [address] [place] [address] Care Team Providers Care Manager Of Compensation Name Role Phone Mary Barber MD Unavailable Thomas Brian MD Unavailable Unavailable Josey Schwartz [facility] Unavailable [phone] Reason for Visit * Reason Onset Date Comments Blood Pressure 12/29/2016 Encounter Details Date Type Department Care Team (Late st Contact Info) Description 12/29/2016 Telephone [employer] [facility] [address] [place] [address] Thomas Brian MD Blood Pressure Social History Tobacco Use Types [...] Progress Notes * Gladis Grady, RN - 12/29/2016 8:56 AM CST Daughter called and states pt had knee replacement surgery 12/17 and is getting PT and home health and pt was cocnerenc BP are too low Pt had one BP 80/52 but have been 102-120-/60. Daughter denies that pt is dizzy or light headed. Informed daughter that BP are wnl and office will speak with Dr Brian and call her if any changes need to be made. Advised daughter to call office if pt gets dizzy or light headed. Pt verbalizes understanding and has no further questions. IC DESIGNER documented in this encounter Plan of Treatment Upcoming Encounters Date Type Department Care Team (Late st Contact Info) Description 02/15/2024 1:30 PM SCENIC DESIGNER Office Visit [facility] ld [address] [place] [address] Tyrell Leiva PA-C [address] [place] [address] 02/15/2024 1:30 PM SCENIC DESIGNER Allied Health/Nurse Visit [facility] ld [address] [place] [address] Mary Barber MD [address] [place] [address] 03/15/2024 11:15 AM SCENIC DESIGNER Office Visit [facility] [place] [address] Jim Tamez MD [address] [place] [address] 05/16/2024 1:15 AM CDT Allied Health/Nurse Visit [facility] ld [address] [place] [address] Mary Barber MD [address] [place] [address] 09/07/2024 9:00 AM CDT Office Visit [facility] [place] [address] Tiffany Badillo MD [address] [place] [address] documented as of this encounter Visit Diagnoses Not on filedocumented in this encounter Care Teams Manager Of Compensation Relationship Specialty Start Date End Date Mary Barber MD [address] [place] [phone] EP Dynamite Packing Machine Operator CLINICAL CARDIAC ELECTROPHYSIOLOGY 09/15/16 Thomas Brian MD [address] [place] [phone] CARDIOVASCULAR DISEASE 09/16/16 04/12/19 Josey Schwartz [facility] [address] [place] [address] [place] [address] Nurse Practitioner Electrophysiology 09/18/16 12/22/19 documented as of this encounter
--- OUTSIDE RECORDS SUMMARY | 2024-01-27 07:58 | XMS_ITS | Encounter Summary ---
Author Organization [facility] Address [address] [facility]. [place], [place] [address] [place] [address] Care Team Providers Care Fraud Prevention Analyst Name Role Phone Mary Barber MD Unavailable Thomas Brian MD Unavailable Unavailable Efren Josey [facility] Unavailable [phone] Reason for Referral * Imaging (Routine) - Closed Specialty Diagnoses / Procedures Referred By Contac t Referred To Contact CARDIOLOGY Diagnoses NICM (nonischemic cardiomyopathy) ([facility]/HCC [facility]) Procedures USE ECHOCARDIOGRAM Thomas Brian MD [address] [place] [address] [facility] [address] [place] [address] [place] [address] Phone: tel: Referral ID Status Reason Start Date Expiration Date Visits Re quested Visits Authorized [id number] Closed 10/22/2017 11/22/2018 1 1 Reason for Visit * Reason Comments Follow Up NICM Encounter Details Date Type Department Care Team (Late Contact Info) Description 10/21/2017 11:45 AM CDT Office Visit [facility] AT [address] [phone] Thomas Brian MD Follow Up (NICM) Social History Tobacco Use Types Packs/Day Years [...] Sign Reading Time Taken Comments Blood Pressure 131/83 10/21/2017 3:35 PM CDT Pulse 58 10/21/2017 3:35 PM CDT Temperature - - Respiratory Rate - - Oxygen Saturation - - Inhaled Oxygen Concentration - - Weight 81.6 kg (180 lb) 10/21/2017 3:35 PM CDT Height 157.5 cm (5' 2 ) 10/21/2017 3:35 PM CDT Body Mass Index 32.92 10/21/2017 3:35 PM CDT documented in this encounter Progress Notes * Thomas Brian MD - 10/21/2017 11:[address] Mack: I saw Ms. Shaffer for a followup. This is a very pleasant 82-year-old lady with a history of paroxysmal atrial fibrillation, refractory to medical therapy in the past, for which she initially underwent AV trell ablation and implantation of dual-chamber pacemaker in 2006, followed by upgrade to a biventricular ICD in March 2014 due to development of severe nonischemic cardiomyopathy, probably from right ventricular pacing. She then developed intracranial bleeding on Coumadin and underwent ligation of the left atrial appendage using LARIAT device by Dr. Barber. She has not been on anticoagulation since then. Patient has been doing reasonably well from heart failure standpoint. She has not had any heart failure hospitalizations or ER visits for the same in the last 1 year. She had knee replacement surgery in December. She now needs the left knee done since it is extremely painful. She had a cortisone shot a couple of weeks ago, which has not helped. Patient is stable from a heart failure standpoint. She does get tired with exertion, but does not have much in the way of edema. She denies any orthopnea, PND, chest pain, palpitations or dizziness. Her blood pressure and heart rate arewell controlled. Her ejection fraction last year was around 30- 35%. She also has some PVCs, although she is not complaining of much in the way of palpitations. IMPRESSION AND RECOMMENDATIONS: 1. Preop clearance for left knee surgery. This letter can serve as preop clearance for left knee surgery. She is not in heart failure. She does not have angina. We will just check an echocardiogram. Assuming the EF is about the same and no worse, I think her risk of having cardiac decompensation would be low to moderate. 2. Nonischemic cardiomyopathy. Her EF is around 30-35% last year. She is on appropriate medicationsat this point. She appears euvolemic clinically. 3. Paroxysmal AFib, status post AV junction ablation followed by biventricular device. She is not on Coumadin due to history of intracranial bleeding. She has had a LARIAT procedure in the past by Dr. Barber. She is on Aspirin alone. 4. We will check an echocardiogram to ensure her EF is stable. If her EF is stable, then I will be happy to see her for a followup in 1 year. Thank you very much for allowing me to participate in her care. CC: Orthopedic surgeon, Dr. Zuniga. * Thomas Brian MD - 10/21/2017 11:45 AM CDT Reason for Visit: Follow Up (NICM) History of Present Illness: Recommendations and Plan: Medications: Current Outpatient Prescriptions: ??? aspirin 81 MG tablet, Take by mouth daily., Disp: , Rfl: ??? doxycycline monohydrate 50 MG capsule, Take 50 mg by mouth daily. , Disp: , Rfl: ??? esomeprazole (NEXIUM) 20 MG capsule, Take 1 tablet by mouth daily., Disp: , Rfl: ??? levothyroxine 75 MCG tablet, Take 75 mcg by mouth daily., Disp: , Rfl: ??? LISINOPRIL 5 MG tablet, TAKE ONE TABLET BY MOUTH ONCE DAILY, Disp: 90 tablet, Rfl: 3 ??? LYRICA 50 MG capsule, , Disp: , Rfl: 0 ??? Multiple Vitamins-Minerals (CENTRUM ADULTS OR), Take 1 tablet by mouth daily., Disp: , Rfl: ??? multivitamin tablet, Take 1 tablet by mouth daily., Disp: , Rfl: ??? ROSUVASTATIN 40 MG tablet, TAKE ONE TABLET BY MOUTH DAILY, Disp: 90 tablet, Rfl: 3 ??? triamterene-hydrochlorothiazide 37.5-25 MG tablet, Take 1 tablet by mouth daily., Disp: , Rfl: Allergies Allergen Reactions ??? Hydrocodone-Acetaminophen Unknown ??? Levofloxacin Unknown ??? Oxycodone Unknown ??? Penicillins Unknown Past Medical History: Diagnosis Date ??? Atrial fibrillation ??? Hyperlipidemia ??? Hypertension ??? Hypothyroidism ??? TIA (transient ischemic attack) Came in for possible TIA today Past Surgical History: Procedure Laterality Date ??? ELECTROPHYSIOLOGY EVALUATION 10/19/2013 left atrial appendage percutaneous ligation ??? HC ICD BI VENTRICULAR GENERATOR 04/04/2013 ??? OTHER PROCEDURE AVJ ablation dc ppm Social History Social History ??? Marital status: Spouse name: N/A ??? Number of children: 1 ??? Years of education: N/A Occupational History ??? Retired ??? Retired Social History Main Topics ??? Smoking status: Former Smoker Types: Cigarettes Quit date: 09/23/1971 ??? Smokeless tobacco: Never Used ??? Alcohol use No ??? Drug use: No ??? Sexual activity: Not Asked Other Topics Concern ??? Exercise Yes Active ??? Special Diet No ??? Caffeine Concern No Social History Narrative Family History Problem Relation Age of Onset ??? ME Mother ??? ME Father ??? CABG Brother ??? Stent Brother ??? Stroke Paternal Grandfather ??? Heart Disease Other premature coronary heart disease Family Status Relation Status ??? Mother at age 71 ??? Father at age 55 ??? Brother ??? Maternal Grandmother at age 60 ??? Maternal Grandfather ??? Paternal Grandfather at age 70 ??? Other Other Family [...] depression and new or significant memory loss. Filed Vitals: 10/21/17 1535 BP: 131/83 Pulse: 58 Weight: 81.6 kg (180 lb) Height: 5' 2 (1.575 m) Body mass index is 32.92 kg/(m^2). Physical Exam Constitutional: She is oriented to [...] Her behavior is normal. Thought content normal. Diagnoses/Impression: 1. Paroxysmal atrial fibrillation 2. H/O intracranial hemorrhage 3. NICM (nonischemic cardiomyopathy) 4. Chronic congestive heart failure, unspecified congestive heart failure type 5. Pre-op examination 6. Premature ventricular contractions PINNACLE Documentation Completed: Atrial Fibrillation Referring Provider: Otf Mack PCP: OTF MACK MD documented in this encounter Plan of Treatment Upcoming Encounters Date Type Department Care Team (Late st Contact Info) Description 02/15/2024 1:30 PM CORN CUTTER [facility] [address] [place] [address] Tyrell Leiva PA-C [address] [place] [address] 02/15/2024 1:30 PM CORN CUTTER Allied Health/Nurse Visit [facility] [address] [place] [address] Mary Barber MD [address] [place] [address] 03/15/2024 11:15 AM CORN CUTTER [facility] Visit [facility] [address] [place] [address] Jim Tamez MD [address] [place], [place] [address] 05/16/2024 1:15 AM CDT Allied Health/Nurse Visit [facility] [address] [place] [address] Mary Barber MD [address] [place] [address] 09/07/2024 9:00 AM CDT Office Visit [facility] [address] [place] [address] Tiffany Badillo MD [address] [place], [place] [address] documented as of this encounter Results * USE ECHOCARDIOGRAM (10/29/2017) Anatomical Region Laterality Modality Cardiac Echocardiogram us Thomas Brian MD ECHO Final Result documented in this encounter Visit Diagnoses Diagnosis Paroxysmal atrial fibrillation ([facility]/HCC HHS/HCC)- Primary Atrial fibrillation H/O intracranial hemorrhage Personal history of other diseases of circulatory system NICM (nonischemic cardiomyopathy) (CMS/HCC HHS/HCC) Other primary cardiomyopathies Chronic congestive heart failure, unspecified congestive heart failure type (CMS/HCC HHS/HCC) Pre-op examination Preoperative examination, unspecified Premature ventricular contractions Other premature beats documented in this encounter Care Teams Fraud Prevention Analyst Relationship Specialty Start Date End Date Mary Barber MD [address] [place] [address] EP News Commentator CLINICAL CARDIAC ELECTROPHYSIOLOGY 09/15/16 Thomas Brian MD [address] [place] [address] CARDIOVASCULAR DISEASE 09/16/16 04/12/19 Josey Schwartz [facility] [address] [place] [address] [place] [address] Nurse Practitioner Electrophysiology 09/18/16 12/22/19 documented as of this encounter
--- OUTSIDE RECORDS SUMMARY | 2024-01-27 07:58 | XMS_ITS | Encounter Summary ---
Author Organization [facility] Address [address] [facility] [place] [address] [place] [address] Care Team Providers Care Wraparound Facilitator Name Role Phone Mary Barber MD Unavailable Thomas Brian MD Unavailable Unavailable Efren Josey [facility] Unavailable Encounter Details Date Type Department Care Team (Late Contact Info) Description 01/08/2017 Scan [facility] [address] [place] [address] Scanned, Documents Social History Tobacco Use Types [...] (Late Contact Info) Description 02/15/2024 1:30 PM GOLF COURSE MANAGER Office Visit [facility] [address] [place] [address] Tyrell Leiva, PA-C [address] [place] [address] 02/15/2024 1:30 PM GOLF COURSE MANAGER Allied Health/Nurse Visit [facility] [address] [place] [address] Mary Barber MD [address] [place] [address] 03/15/2024 11:15 AM GOLF COURSE MANAGER [facility] [address] [place] [address] Jim Tamez MD [address] [place] [address] 05/16/2024 1:15 AM CDT Allied Health/Nurse Visit [facility] ld [address] [place] [address] [phone] Mary Barber MD [address] [place] [address] 09/07/2024 9:00 AM CDT [facility] Visit [facility] [address] [place] [address] Tiffany Badillo MD [address] [place] [address] documented as of this encounter Visit Diagnoses Not on filedocumented in this encounter Care Teams Wraparound Facilitator Relationship Specialty Start Date End Date Mary Barber MD [address] [place] [address] EP Autistic Teacher CLINICAL CARDIAC ELECTROPHYSIOLOGY 09/15/16 Thomas Brian MD [address] [place] [address] CARDIOVASCULAR DISEASE 09/16/16 04/12/19 Josey Schwartz, AGACNP-BC [address] [facility] [address] [place] [address] Nurse Practitioner Electrophysiology 09/18/16 12/22/19 documented as of this encounter
--- OUTSIDE RECORDS SUMMARY | 2024-01-27 07:58 | XMS_ITS | Encounter Summary ---
Author Organization [facility] Address [address] [facility] [place] [address] [place] [address] Care Team Providers Care Score Caller Name Role Phone Mary Barber MD Unavailable Thomas Brian MD Unavailable Unavailable Josey Schwartz [facility] Unavailable [phone] Encounter Details Date Type Department Care Team (Late Contact Info) Description 12/11/2016 Orders Only [facility] [address] [place] [address] Mary Barber MD [address] [place] [address] Social History Tobacco Use Types [...] (Late Contact Info) Description 02/15/2024 1:30 PM LABOR AND EMPLOYMENT PARALEGAL Office Visit [facility] [address] [place] [address] Tyrell Leiva PA-C [address] [place] [address] 02/15/2024 1:30 PM LABOR AND EMPLOYMENT PARALEGAL [facility] [address] [place] [address] Mary Barber MD [address] [place] [address] 03/15/2024 11:15 AM LABOR AND EMPLOYMENT PARALEGAL [facility] Visit [facility] [address] [place] [address] Jim Tamez MD [address] [place] [address] 05/16/2024 1:15 AM CDT Allied Health[facility] [address] [place] [address] Mary Barber MD [address] [place] [phone] 09/07/2024 9:00 AM CDT Office Visit [address] [place] [address] Tiffany Badillo MD [address] [place] [address] documented as of this encounter Visit Diagnoses Not on filedocumented in this encounter Care Teams Score Caller Relationship Specialty Start Date End Date Mary Barber MD [address] [place] [address] EP Solderer Assembler CLINICAL CARDIAC ELECTROPHYSIOLOGY 8/7/17 Thomas Brian MD [address] [place] [address] CARDIOVASCULAR DISEASE 09/16/16 04/12/19 Jose[facility] [address] [phone] Nurse Practitioner Electrophysiology 09/18/16 12/22/19 documented as of this encounter
--- OUTSIDE RECORDS SUMMARY | 2024-01-27 07:58 | XMS_ITS | Encounter Summary ---
Author Organization [facility] Address [address] [facility] [place] [address] [place] [address] Care Team Providers Care Terminal Makeup Operator Name Role Phone Mary Barber MD Unavailable Thomas Brian MD Unavailable Unavailable Efren Josey [facility] Unavailable [phone] Encounter Details Date Type Department Care Team (Late Contact Info) Description 12/30/2016 Scan [facility] [address] [place] [address] Scanned, Documents Social History Tobacco Use Types [...] (Late Contact Info) Description 02/15/2024 1:30 PM RIVET FLUNKY Office Visit [facility] [address] [place] [address] Tyrell Leiva, PA-C [address] [place] [address] 02/15/2024 1:30 PM RIVET FLUNKY Allied Health/Nurse Visit [facility] [address] [place] [address] Mary Barber MD [address] [place] [address] 03/15/2024 11:15 AM RIVET FLUNKY Office Visit [facility] [address] [place] [address] Jim Tamez MD [address] [place], [place] [address] 05/16/2024 1:15 AM CDT Allied Health/Nurse Visit [facility] [address] [place] [address] [phone] Mary Barber MD [address] [place] [address] 09/07/2024 9:00 AM CDT Office Visit [facility] [address] [place] [address] Tiffany Badillo MD [address] [place] [address] documented as of this encounter Visit Diagnoses Not on filedocumented in this encounter Care Teams Terminal Makeup Operator Relationship Specialty Start Date End Date Mary Barber MD [address] [place] [address] EP Internet Sourcer CLINICAL CARDIAC ELECTROPHYSIOLOGY 09/15/16 Thomas Brian MD [address] [place] [address] CARDIOVASCULAR DISEASE 09/16/16 04/12/19 Josey Schwartz, AGACNP-BC [address] [facility] [address] [place] [address] Nurse Practitioner Electrophysiology 09/18/16 12/22/19 documented as of this encounter
--- OUTSIDE RECORDS SUMMARY | 2024-01-27 07:58 | XMS_ITS | Encounter Summary ---
Author Organization [facility] Address [address] [facility] [place] [address] [place] [address] Care Team Providers Care Procurement Manager Name Role Phone Mary Barber MD Unavailable Thomas Brian MD Unavailable Unavailable Efren Josey [facility] Unavailable [phone] Encounter Details Date Type Department Care Team (Late Contact Info) Description 04/20/2017 Scan [facility] [address] [place] [address] Scanned, Documents Social History Tobacco Use Types [...] (Late Contact Info) Description 02/15/2024 1:30 PM MAT WORKER Office Visit [facility] [address] [place] [address] Tyrell Leiva, PA-C [address] [place] [address] 02/15/2024 1:30 PM MAT WORKER Allied Health/Nurse Visit [facility] [address] [place] [address] Mary Barber MD [address] [place] [address] 03/15/2024 11:15 AM MAT WORKER Office Visit [facility] [address] [place] [address] Jim Tamez MD [address] [place], [place] [address] 05/16/2024 1:15 AM CDT Allied Health/Nurse Visit [facility] [address] [place] [address] [phone] Mary Barber MD [address] [place] [address] 09/07/2024 9:00 AM CDT Office Visit [facility] [address] [place] [address] Tiffany Badillo MD [address] [place] [address] documented as of this encounter Visit Diagnoses Not on filedocumented in this encounter Care Teams Procurement Manager Relationship Specialty Start Date End Date Mary Barber MD [address] [place] [address] EP Cook Roast CLINICAL CARDIAC ELECTROPHYSIOLOGY 09/15/16 Thomas Brian MD [address] [place] [address] CARDIOVASCULAR DISEASE 09/16/16 04/12/19 Josey Schwartz, AGACNP-BC [address] [facility] [address] [place] [address] Nurse Practitioner Electrophysiology 09/18/16 12/22/19 documented as of this encounter
--- OUTSIDE RECORDS SUMMARY | 2024-01-27 07:59 | XMS_ITS | Encounter Summary ---
Author Organization [facility] Address [address] [facility] [place] [address] [place] [address] Care Team Providers Care Clothes Drier Repairer Name Role Phone Unavailable Primary Care Provider Unavailabl e Encounter Details Date Type Department Care Team (Late Contact Info) Description 09/08/2016 Orders Only [facility] [address] [place] [address] Gladis Grady RN Social History Tobacco Use Types Packs/Day Years Used Date Smoking Tobacco: Never Smokeless Tobacco: Never Alcohol Use Standard Drinks/Week [...] (Late Contact Info) Description 02/15/2024 1:30 PM ENTERTAINMENT PRODUCTION PROFESSIONAL Office Visit [facility] [address] [place] [address] Tyrell Leiva, PAHaylieC [address] [place] [address] 02/15/2024 1:30 PM ENTERTAINMENT PRODUCTION PROFESSIONAL Allied Health/Nurse Visit [facility] [address] [place] [address] Mary Barber MD [address] [place] [address] 03/15/2024 11:15 AM ENTERTAINMENT PRODUCTION PROFESSIONAL [facility] Visit [facility] [place] [address] [facility] [place] [address] Jim Tamez MD [address] [place] [address] 05/16/2024 1:15 AM CDT Allied Health/Nurse Visit [facility] [address] [place] [address] Mary Barber MD [address] [place] [address] 09/07/2024 9:00 AM CDT Office Visit [facility] [address] [place] [address] [place] [address] Tiffany Badillo MD [address] [place] [address] documented as of this encounter Visit Diagnoses Not on filedocumented in this encounter
--- OUTSIDE RECORDS SUMMARY | 2024-01-27 07:59 | XMS_ITS | Encounter Summary ---
Author Organization [facility] Address [address] [facility] [place] [address] [place] [address] Care Team Providers Care Parachute Panel Joiner Name Role Phone Unavailable Primary Care Provider Unavailabl e Reason for Visit * Reason Comments Follow Up NICM Encounter Details Date Type Department Care Team (Late st Contact Info) Description 12/19/2015 1:15 PM BINDERY TECHNICIAN Office Visit [facility] AT [address] [place] [address] Thomas Brian MD Follow Up (NICM) Social History Tobacco Use Types Packs/Day Years Used Date Smoking Tobacco: Never Alcohol Use Standard Drinks/Week Comments [...] Sign Reading Time Taken Comments Blood Pressure 123/73 12/19/2015 1:55 PM BINDERY TECHNICIAN Pulse 59 12/19/2015 1:54 PM BINDERY TECHNICIAN Temperature - - Respiratory Rate 20 12/19/2015 1:54 PM BINDERY TECHNICIAN Oxygen Saturation 97% 12/19/2015 1:54 PM BINDERY TECHNICIAN Inhaled Oxygen Concentration - - Weight 85.3 kg (188 lb) 12/19/2015 1:54 PM BINDERY TECHNICIAN Height 162.6 cm (5' 4 ) 12/19/2015 1:54 PM BINDERY TECHNICIAN Body Mass Index 32.27 12/19/2015 1:54 PM BINDERY TECHNICIAN documented in this encounter Progress Notes * Thomas Brian MD - 12/19/2015 1:[address] Mack: I saw Mrs. Shaffer today for followup. As you know, this is a very pleasant 80-year-old lady with history of paroxysmal AFib, which was refractory to medical therapy, for which she initially underwent AVJ ablation and implantation of dual-chamber device in 2006 followed by upgrade to biventricular device in March 2013 since she developed severe nonischemic cardiomyopathy. She underwent ligation of the left atrial appendage using lariat device. Given history of intracranial bleeding, she is not on Coumadin. Her EF subsequently improved to 50%. She feels well from cardiac standpoint. She does not have any chest pain or chest tightness. She has some shortness of breath with more than moderate activity. Her main problems sound orthopedic in nature with spine problems and also knee pain and leg pain. This does not sound like claudication as these occur even at rest and also when lying inbed. She sees an orthopedic surgeon. She does not have any ulceration in the feet. She does not smoke and there is no history of former smoking. Her blood pressure and heart rate is well controlled. Overall, she feels okay from a cardiac standpoint. IMPRESSION AND RECOMMENDATIONS: 1. Nonischemic cardiomyopathy. Her cardiomyopathy seems to have improved based on last echocardiogram; her EF was 50%. She appears euvolemic on exam today. She is on Metoprolol but not on MAXINE inhibitor. 2. AFib, history of AVJ ablation and pacemaker. She is not on Coumadin. She has had left atrial appendage ligation using lariat device in the past. She is on Baby Aspirin 81 mg daily. 3. Hypertension. Blood pressure appears to be well controlled. Overall, from a cardiac standpoint, she appears to be stable. We will see her for followup in a year. ERY TECHNICIAN * Thomas Brian MD - 12/19/2015 1:15 PM CST Chief Complaint: Follow Up (NICM) Recommendations/Plan: History of Present Illness: Medications: Current Outpatient Prescriptions: ??? levothyroxine 75 MCG tablet, Take 75 mcg by mouth daily., Disp: , Rfl: ??? multivitamin tablet, Take 1 tablet by mouth daily., Disp: , Rfl: ??? traMADol 50 MG tablet, Take 50 mg by mouth every 6 (six) hours as needed for Pain., Disp: , Rfl: ??? aspirin 81 MG tablet, Take by mouth daily., Disp: , Rfl: ??? CRESTOR 40 MG tablet, Take 1 tablet (40 mg total) by mouth daily., Disp: 30 tablet, Rfl: 3 ??? esomeprazole (NEXIUM) 20 MG capsule, Take 1 tablet by mouth daily., Disp: , Rfl: ??? metoprolol tartrate 25 MG tablet, Take 1 tablet by mouth 2 (two) times daily., Disp: , Rfl: ??? triamterene-hydrochlorothiazide 37.5-25 MG tablet, Take 1 tablet by mouth daily., Disp: , Rfl: Allergies Allergen Reactions ??? Hydrocodone-Acetaminophen Unknown ??? Levofloxacin Unknown ??? Oxycodone Unknown ??? Penicillins Unknown Past Medical History Diagnosis Date ??? Atrial fibrillation ??? Hyperlipidemia ??? Hypertension ??? Hypothyroidism ??? TIA (transient ischemic attack) Came in for possible TIA today Past Surgical History Procedure Laterality Date ??? Electrophysiology evaluation 10/19/2013 left atrial appendage percutaneous ligation ??? icd bi ventricular generator 04/04/2013 ??? Other procedure AVJ ablation dc ppm Social History Social History ??? Marital status: Spouse name: N/A ??? Number of children: 1 ??? Years of education: N/A Occupational History ??? Retired Social History Main Topics ??? Smoking status: Never Smoker ??? Smokeless tobacco: None ??? Alcohol use No ??? Drug use: No ??? Sexual activity: Not Asked Other Topics Concern ??? None Social History Narrative Family History Problem Relation Age of Onset ??? ND Mother ??? ND Father ??? CABG Brother ??? Stent Brother [...] coronary heart disease Review of Systems Constitutional: Positive for malaise/fatigue. Negative for weight loss. HENT: Negative for hearing loss. Eyes: Negative for blurred vision and double vision. Respiratory: Negative for cough, hemoptysis and wheezing. Cardiovascular: Negative for chest pain and palpitations. Gastrointestinal: Positive for heartburn. Negative for blood in stool and melena. Genitourinary: Negative for dysuria. Musculoskeletal: Positive for joint pain. Negative for myalgias. Skin: Negative for rash. Neurological: Negative for tingling, sensory change, focal weakness and headaches. Endo/Heme/Allergies: Negative for polydipsia. Bruises/bleeds easily. Filed Vitals: 12/19/15 1354 12/19/15 1355 BP: 125/70 123/73 Pulse: 59 Resp: 20 SpO2: 97% Weight: 85.3 kg (188 lb) Height: 5' 4 (1.626 m) Physical Exam Constitutional: She is oriented to [...] Her behavior is normal. Thought content normal. No results found for this visit on 12/19/15. Diagnoses/Impression: 1. NICM (nonischemic cardiomyopathy) 2. Atrial fibrillation, unspecified type 3. Essential hypertension 4. Mixed hyperlipidemia ERY TECHNICIAN documented in this encounter Plan of Treatment Upcoming Encounters Date Type Department Care Team (Late st Contact Info) Description 02/15/2024 1:30 PM BINDERY TECHNICIAN Office Visit [facility] ld [address] [place] [phone] Tyrell Leiva PAHaylieC [address] [place] [address] 02/15/2024 1:30 PM BINDERY TECHNICIAN Allied Health/Nurse Visit [facility] ld [address] [place] [address] [phone] Mary Barber MD [address] [place] [address] 03/15/2024 11:15 AM BINDERY TECHNICIAN Office Visit [facility] [place] [address] [place] [address] Jim Tamez MD [address] [place], [place] [address] [phone] 05/16/2024 1:15 AM CDT Allied Health/Nurse Visit [facility] ld [address] [place] [address] Mary Barber MD [address] [place] [address] 09/07/2024 9:00 AM CDT Office Visit [facility] [address] [place] [address] Tiffany Badillo MD [address] [place] [address] documented as of this encounter Visit Diagnoses Diagnosis NICM (nonischemic cardiomyopathy) (CMS/HCC HHS/HCC)- Primary Other primary cardiomyopathies Atrial fibrillation, unspecified type (CMS/HCC HHS/HCC) Essential hypertension Unspecified essential hypertension Mixed hyperlipidemia documented in this encounter
--- OUTSIDE RECORDS SUMMARY | 2024-01-27 07:59 | XMS_ITS | Encounter Summary ---
Author Organization [facility] Address [address] [facility] [place] [address] [place] [address] Care Team Providers Care Cheese Tester Name Role Phone Mary Barber MD Unavailable Thomas Brian MD Unavailable Unavailable Josey Schwartz [facility] Unavailable [phone] Encounter Details Date Type Department Care Team (Late Contact Info) Description 09/15/2016 Orders Only [facility] [address] [place] [address] Thomas Brian MD Social History Tobacco Use [...] st Contact Info) Description 02/15/2024 1:30 PM MAIL PROCESSING ASSOCIATE Office Visit [facility] [address] [place] [phone] Tyrell Leiva, PA-C [address] [place] [address] 02/15/2024 1:30 PM MAIL PROCESSING ASSOCIATE Allied Health/Nurse Visit [facility] ld [address] [place] [address] Mary Barber MD [address] [place] [address] 03/15/2024 11:15 AM MAIL PROCESSING ASSOCIATE Office Visit [facility] [address] [place] [address] Jim Tamez MD [address] [place], [place] [phone] 05/16/2024 1:15 AM CDT Allied Health/Nurse Visit [facility] ld [address] [place] [address] Mary Barber MD [address] [place] [address] 09/07/2024 9:00 AM CDT Office Visit [address] [place] [address] Tiffany Badillo MD [address] [place], [place] [address] [phone] documented as of this encounter Procedures Procedure Name Priority Date/Time Associated Diagnosis Comments BASIC METABOLIC PANEL Routine 09/18/2016 Essential hypertension documented in this encounter Results * (ABNORMAL) BASIC METABOLIC PANEL (09/18/2016) SODIUM S/P/B 143 POTASSIUM S/P/B 4.0 BUN 24 CREATININE S/P/B 1.09(A) 0.5 - 1.0 09/18/2016 us Thomas Brian MD LABORATORY Final Result documented in this encounter Visit Diagnoses Diagnosis Essential hypertension- Primary Unspecified essential hypertension documented in this encounter Care Teams Cheese Tester Relationship Specialty Start Date End Date Mary Barber MD [address] [place] [phone] EP Electronic Warfare Officer CLINICAL CARDIAC ELECTROPHYSIOLOGY 09/15/16 Thomas Brian MD [address] [place] [phone] CARDIOVASCULAR DISEASE 09/16/16 04/12/19 Jose[facility] [address] [place] [address] [place] [address] Nurse Practitioner Electrophysiology 09/18/16 12/22/19 documented as of this encounter
--- OUTSIDE RECORDS SUMMARY | 2024-01-27 07:59 | XMS_ITS | Encounter Summary ---
Author Organization [facility] Address [address] [facility] [place] [address] [place] [address] Care Team Providers Care Director Of Sports Performance Name Role Phone Mary Barber MD Unavailable Thomas Brian MD Unavailable Unavailable Josey Schwartz [facility] Unavailable [phone] Reason for Referral * Imaging (Routine) - Closed Specialty Diagnoses / Procedures Referred By Contac t Referred To Contact CARDIOLOGY Diagnoses Atrial fibrillation, unspecified type ([facility]/HCC [facility]) Procedures USE ECHOCARDIOGRAM (47152) Thomas Brian MD [address] [place] [phone] [facility] [address] [place] [address] [place] [address] Phone: tel: Referral ID Status Reason Start Date Expiration Date Visits Re quested Visits Authorized [id number] Closed 09/08/2016 10/09/2017 1 1 Reason for Visit * Reason Comments Follow Up Encounter Details Date Type Department Care Team (Late Contact Info) Description 09/08/2016 10:45 AM CDT [facility] [address] [place] [address] Thomas Brian MD Follow Up Social History [...] Sign Reading Time Taken Comments Blood Pressure 148/80 09/08/2016 10:45 AM CDT Pulse 66 09/08/2016 10:45 AM CDT Temperature - - Respiratory Rate 16 09/08/2016 10:45 AM CDT Oxygen Saturation - - Inhaled Oxygen Concentration - - Weight 84.4 kg (186 lb) 09/08/2016 10:45 AM CDT Height 157.5 cm (5' 2 ) 09/08/2016 10:45 AM CDT Body Mass Index 34.02 09/08/2016 10:45 AM CDT documented in this encounter Progress Notes * Thomas Brian MD - 09/08/2016 11:[address] Otf Mack: I saw Ms. Shaffer today for cardiovascular followup. As you know, this is a very pleasant 81-year-old lady with history of paroxysmal atrial fibrillation which was refractory to medical therapy, for which she initially underwent AV trell ablation and implantation of dual-chamber pacemaker in 2006, followed by upgrade to biventricular device in March 2014 due to development of severe nonischemic cardiomyopathy, presumably from right ventricular pacing. She then had intracranial bleeding on Coumadin and underwent ligation of the left atrial appendage using LARIAT device by Dr. Mary Barber. Shehas not been on anticoagulation since. She was recently seen by you and it was felt that she had anirregular heartbeat. The patient does not have any symptoms of palpitations, skipping heart, or dizziness or syncope. She has no chest pain with exertion. Her main problems now appear to stem from right knee osteoarthritis with severe pain even at rest. She is contemplating right knee replacement surgery. She has also had a history of gastric bypass surgery in the remote past and has had some heartburn issues and also some vomiting. She is also planning a followup visit with Dr. Elam who is her retail office manager. Her EKG in the office shows atrial and ventricular paced rhythm with some premature atrial and ventricular complexes. IMPRESSION AND RECOMMENDATIONS: 1. Irregular heartbeat. Irregular heartbeat was noticed in your office. She likely has some premature atrial and ventricular complexes. I will interrogate her pacemaker defibrillator today to ensure normal functioning device. 2. Nonischemic cardiomyopathy. Her cardiomyopathy improved from the past to an ejection fraction ofabout 50%. This was likely related to right ventricular pacing from her dual-chamber device which was subsequently successfully upgraded to a biventricular device by Dr. Barber. Her most recent echocardiogram was back in 2014. I will check an echocardiogram now to ensure that she has preserved ejection fraction. 3. Paroxysmal atrial fibrillation status post AV junction ablation and pacemaker followed biventricular device as above. She is also not on Coumadin because of history of intracranial bleed. She has had a LARIAT procedure in the past. She is on Aspirin alone. She also has a followup with Dr. Barber, her functional support analyst. If the echocardiogram is stable, I will plan to see her for followup in 1 year. Thank you very much for allowing me to participate in her care. cc: Mary Barber * Thomas Brian MD - 09/08/2016 10:45 AM CDT Reason for Visit: Follow Up History of Present Illness: Recommendations and Plan: Medications: Current Outpatient Prescriptions: ??? doxycycline monohydrate 50 MG capsule, Take 50 mg by mouth 2 (two) times daily., Disp: , Rfl: ??? aspirin 81 MG tablet, Take by mouth daily., Disp: , Rfl: ??? CRESTOR 40 MG tablet, Take 1 tablet (40 mg total) by mouth daily., Disp: 90 tablet, Rfl: 3 ??? esomeprazole (NEXIUM) 20 MG capsule, Take 1 tablet by mouth daily., Disp: , Rfl: ??? levothyroxine 75 MCG tablet, Take 75 mcg by mouth daily., Disp: , Rfl: ??? metoprolol tartrate 25 MG tablet, Take 1 tablet by mouth 2 (two) times daily., Disp: , Rfl: ??? multivitamin tablet, Take 1 tablet by mouth daily., Disp: , Rfl: ??? triamterene-hydrochlorothiazide 37.5-25 [...] Smoking status: Never Smoker ??? Smokeless tobacco: Never Used ??? Alcohol use No ??? Drug use: No ??? Sexual activity: Not Asked Other Topics Concern ??? None Social History Narrative Family History Problem Relation Age of Onset ??? DE Mother ??? DE Father ??? CABG Brother ??? Stent Brother [...] disease Review of Systems Constitutional: Positive for fatigue and weakness. Negative for recent unintentional weight gain and recent unintentional weight loss. HENT: Negative for new or significant hearing loss. Eyes: Negative for blurred vision and double vision. Respiratory: Negative for cough, new or significant shortness of breath and snoring. Cardiovascular: See HPI Gastrointestinal: Positive for heartburn and vomiting. Negative for blood in stool and melena. Genitourinary: Negative for dysuria. Musculoskeletal: Positive for myalgias and joint stiffness/pain. Skin: Negative for rash. Neurological: Negative for tingling/numbness and focal weakness. Endo/Heme/Allergies: Positive for easy bruising/bleeding. Negative for polydipsia. Psychiatric/Behavioral: Negative for depression and new or significant memory loss. Filed Vitals: 09/08/16 1045 BP: 148/80 Pulse: 66 Resp: 16 Weight: 84.4 kg (186 lb) Height: 5' 2 (1.575 m) Physical Exam Constitutional: She is oriented [...] behavior is normal. Thought content normal. Diagnoses/Impression: No diagnosis found. [place] Documentation Completed: Atrial Fibrillation Referring Provider: No ref. provider found PCP: OTF MACK documented in this encounter Plan of Treatment Upcoming Encounters Date Type Department Care Team (Late st Contact Info) Description 02/15/2024 1:30 PM ABSTRACT WRITER Office Visit [facility] ld [address] [place] [address] Tyrell Leiva PAHaylieC [address] [place] [address] 02/15/2024 1:30 PM ABSTRACT WRITER Allied Health/Nurse Visit [facility] ld [address] [place] [address] Mary Barber MD [address] [place] [address] 03/15/2024 11:15 AM ABSTRACT WRITER Office Visit [address] [place] [address] Jim Tamez MD [address] [place], [place] [address] 05/16/2024 1:15 AM CDT Allied Health/Nurse Visit [facility] [address] [place] [address] Mary Barber MD [address] [place] [address] 09/07/2024 9:00 AM CDT Office Visit [address] [place] [address] Tiffany Badillo MD [address] [place], [place] [address] documented as of this encounter Procedures Procedure Name Priority Date/Time Associated Diagnosis Comments USE ECHOCARDIOGRAM Routine 09/11/2016 Atrial fibrillation, unspecified type ([facility]) documented in this encounter Results * USE ECHOCARDIOGRAM (35759) (09/11/2016) Anatomical Region Laterality Modality Cardiac Echocardiogram Thomas Brian MD ECHO Final Result documented in this encounter Visit Diagnoses Diagnosis NICM (nonischemic cardiomyopathy) ([facility] HHS/HCC)- Primary Other primary cardiomyopathies Atrial fibrillation, unspecified type ([facility]/HCC) S/P AV trell ablation Other postprocedural status S/P biventricular cardiac pacemaker procedure Cardiac pacemaker in situ H/O intracranial hemorrhage Personal history of other diseases of circulatory system Essential hypertension Unspecified essential hypertension documented in this encounter Care Teams Director Of Sports Performance Relationship Specialty Start Date End Date Mary Barber MD [address] [place] [address] EP Varnish Maker Helper CLINICAL CARDIAC ELECTROPHYSIOLOGY 09/15/16 Thomas Brian MD [address] [place] [address] CARDIOVASCULAR DISEASE 09/16/16 04/12/19 Josey Schwartz [facility] [address] [place] [address] [place] [phone] Nurse Practitioner Electrophysiology 09/18/16 12/22/19 documented as of this encounter
--- OUTSIDE RECORDS SUMMARY | 2024-01-27 07:59 | XMS_ITS | Encounter Summary ---
Author Organization [facility] Address [address] [facility] [address] [place] [address] Care Team Providers Care Registration Representative Name Role Phone Mary Barber MD [facility] Encounter Details Date Type Department Care Team ([facility] Contact Info) Description 09/09/2016 Orders Only [facility] [address] [place] [address] Gladis Grady RN Social History Tobacco Use [...] Upcoming Encounters Date Type Department Care Team ([facility] Contact Info) Description 02/15/2024 1:30 PM WATER PURIFICATION CHEMIST Office Visit [facility] [address] [place] [address] Tyrell Leiva PAHaylieC [address] [place] [address] 02/15/2024 1:30 PM WATER PURIFICATION CHEMIST Allied Health/Nurse Visit [facility] [address] [place] [address] Mary Barber MD [address] [place] [address] 03/15/2024 11:15 AM WATER PURIFICATION CHEMIST Office Visit [facility] [address] [place] [address] Jim Tamez MD [address] [place] [address] 05/16/2024 1:15 AM CDT Allied Health/Nurse Visit [facility] ld [address] [place] [address] Mary Barber MD [address] [place] [address] 09/07/2024 9:00 AM CDT Office Visit [facility] [address] [place] [address] Tiffany Badillo MD [address] [place] [address] documented as of this encounter Visit Diagnoses Not on filedocumented in this encounter Care Teams Registration Representative Relationship Specialty Start Date End Date Mary Barber MD [address] [place] [address] [phone] EP Information Developer CLINICAL CARDIAC ELECTROPHYSIOLOGY 09/15/16 documented as of this encounter
--- OUTSIDE RECORDS SUMMARY | 2024-01-27 07:59 | XMS_ITS | Encounter Summary ---
Author Organization [facility] Address [address] [place] [address] [place] [address] Care Team Providers Care Rod Cup Filler Name Role Phone Unavailable Primary Care Provider Unavailabl e Encounter Details Date Type Department Care Team (Late Contact Info) Description 02/01/2016 2:15 PM ACTIVITY COORDINATOR Office Visit [facility] [address] [place] [address] Social History Tobacco Use Types Packs/Day Years [...] (Late Contact Info) Description 02/15/2024 1:30 PM ACTIVITY COORDINATOR Office Visit [facility] [address] [place] [address] Tyrell Leiva, PA-C [address] [place] [address] 02/15/2024 1:30 PM ACTIVITY COORDINATOR Allied Health/Nurse Visit [facility] [address] [place] [address] Mary Barber MD [address] [place] [address] 03/15/2024 11:15 AM ACTIVITY COORDINATOR Office Visit [facility] [address] [place] [address] Jim Tamez MD [address] [place], [place] [address] 05/16/2024 1:15 AM CDT Allied Health/Nurse Visit [facility] [address] [place] [address] Mary Barber MD [address] [place] [address] 09/07/2024 9:00 AM CDT Office Visit [facility] [address] [place] [address] Tiffany Badillo MD [address] [place], [place] [address] documented as of this encounter Visit Diagnoses Not on filedocumented in this encounter
--- OUTSIDE RECORDS SUMMARY | 2024-01-27 07:59 | XMS_ITS | Encounter Summary ---
Author Organization [facility] Address [facility] [place] [address] [place] [address] Care Team Providers Care Medical Records Auditor Name Role Phone Unavailable Primary Care Provider Unavailabl e Encounter Details Date Type Department Care Team (Late st Contact Info) Description 05/19/2016 Scan [facility] BUSINESS OFFICE [address] [place] [phone] Scanned, Documents Social History Tobacco Use Types [...] st Contact Info) Description 02/15/2024 1:30 PM STOCK BROKER SUPERVISOR [facility] [address] [place] [address] Tyrell Leiva PA-C [address] [place] [address] 02/15/2024 1:30 PM STOCK BROKER SUPERVISOR Allied Health/Nurse [facility] [address] [place] [address] Mary Barber MD [address] [place] [address] 03/15/2024 11:15 AM STOCK BROKER SUPERVISOR Office Visit [facility] [address] [place] [address] Jim Tamez MD [address] [place], [place] [address] 05/16/2024 1:15 AM CDT Allied Health/Nurse Visit [facility] [address] [place] [address] Mary Barber MD [address] [place] [address] 09/07/2024 9:00 AM CDT Office Visit [facility] [address] [place] [address] Tiffany Badillo MD [address] [place], [place] [address] documented as of this encounter Visit Diagnoses Not on filedocumented in this encounter
--- OUTSIDE RECORDS SUMMARY | 2024-01-27 07:59 | XMS_ITS | Encounter Summary ---
Author Organization [facility] Address [address] [place] [address] [place] [address] Care Team Providers Care Residence Life Director Name Role Phone Mary Barber MD Unavailable Thomas Brian MD Unavailable Unavailable Efren Josey [facility] Unavailable [phone] Encounter Details Date Type Department Care Team (Late Contact Info) Description 09/22/2016 12:45 PM CDT Procedure Only [facility] [address] [place] [address] Social History Tobacco Use Types [...] (Late Contact Info) Description 02/15/2024 1:30 PM INFORMATION SYSTEMS PLANNER Office Visit [facility] [address] [place] [address] Tyrell Leiva, PA-C [address] [place] [address] 02/15/2024 1:30 PM INFORMATION SYSTEMS PLANNER Allied Health/Nurse Visit [facility] ld [address] [place] [address] Mary Barber MD [address] [place] [address] 03/15/2024 11:15 AM INFORMATION SYSTEMS PLANNER Office Visit [facility] [address] [place] [address] Jim Tamez MD [address] [place] [address] 05/16/2024 1:15 AM CDT Allied Health/Nurse Visit [facility] ld [address] [place] [address] Mary Barber MD [address] [place] [address] 09/07/2024 9:00 AM CDT Office Visit [address] [place] [address] Tiffany Badillo MD [address] [place] [address] documented as of this encounter Visit Diagnoses Not on filedocumented in this encounter Care Teams Residence Life Director Relationship Specialty Start Date End Date Mary Barber MD [address] [place] [address] EP Franchise Business Consultant CLINICAL CARDIAC ELECTROPHYSIOLOGY 09/15/16 Thomas Brian MD [address] [place] [address] CARDIOVASCULAR DISEASE 09/16/16 04/12/19 Josey Schwartz, AGACNP-BC [address] [facility] MA[address] [place] [address] Nurse Practitioner Electrophysiology 09/18/16 12/22/19 documented as of this encounter
--- OUTSIDE RECORDS SUMMARY | 2024-01-27 07:59 | XMS_ITS | Encounter Summary ---
Author Organization [facility] Address [facility] [place] [address] [place] [address] Care Team Providers Care Landscape Crew Member Name Role Phone Unavailable Primary Care Provider Unavailabl e Encounter Details Date Type Department Care Team (Late st Contact Info) Description 08/27/2016 Scan [facility] BUSINESS OFFICE [address] [place] [phone] Scanned, Documents Social History Tobacco Use [...] st Contact Info) Description 02/15/2024 1:30 PM PROFESSOR OF VISUAL ARTS [facility] [address] [place] [address] Tyrell Leiva PA-C [address] [place] [address] 02/15/2024 1:30 PM PROFESSOR OF VISUAL ARTS Allied Health/Nurse [facility] [address] [place] [address] Mary Barber MD [address] [place] [address] 03/15/2024 11:15 AM PROFESSOR OF VISUAL ARTS Office Visit [facility] [address] [place] [address] Jim Tamze MD [address] [place], [place] [address] 05/16/2024 1:15 AM CDT Allied Health/Nurse Visit [facility] [address] [place] [address] Mary Barber MD [address] [place] [address] 09/07/2024 9:00 AM CDT Office Visit [facility] [address] [place] [address] Tiffany Badillo MD [address] [place], [place] [address] documented as of this encounter Visit Diagnoses Not on filedocumented in this encounter
--- OUTSIDE RECORDS SUMMARY | 2024-01-27 07:59 | XMS_ITS | Encounter Summary ---
Author Organization [facility] Address [facility] [place] [address] [place] [address] Care Team Providers Care Marine Diesel Technician Name Role Phone Mary Barber MD [facility] Reason for Visit * Reason Onset Date Comments Results 09/15/2016 Encounter Details Date Type Department Care Team (Late st Contact Info) Description 09/15/2016 Telephone [facility] [address] [place] [address] Thomas Brian MD Results Social [...] of this encounter Progress Notes * Gladis Grady RN - 09/15/2016 4:17 PM CDT Spoke with pt on phone, informed of echo results, per Dr Pfeiffer' recommendation pt to have a BMP andif stable Dr Brian wants to put her on an ACEI. Pt requests order be mailed to her and she will get drawn at [facility]. Pt verbalizes understanding and has no further questions. Mailed order for lab documented in this encounter Plan of Treatment Upcoming Encounters Date Type Department Care Team (Late st Contact Info) Description 02/15/2024 1:30 PM DIGITAL MUSIC INSTRUCTOR [facility] [address] [place] [address] Tyrell Leiva PA-C [address] [place] [address] 02/15/2024 1:30 PM DIGITAL MUSIC INSTRUCTOR Allied Health/Nurse Visit [facility] ld [address] [place] [address] Mary Barber MD [address] [place] [address] 03/15/2024 11:15 AM DIGITAL MUSIC INSTRUCTOR Office Visit [facility] [place] [address] [place] [address] Jim Tamez MD [address] [place], [place] [address] [phone] 05/16/2024 1:15 AM CDT Allied Health/Nurse Visit [facility] ld [address] [place] [address] [phone] Mary Barber MD [address] [place] [address] 09/07/2024 9:00 AM CDT Office Visit [facility] [place] [address] [place] [address] Tiffany Badillo MD [address] [place] [address] documented as of this encounter Visit Diagnoses Not on filedocumented in this encounter Care Teams Marine Diesel Technician Relationship Specialty Start Date End Date Mary Barber MD [address] [place] [address] EP Label Printing Machinist CLINICAL CARDIAC ELECTROPHYSIOLOGY 09/15/16 documented as of this encounter
--- OUTSIDE RECORDS SUMMARY | 2024-01-27 07:59 | XMS_ITS | Encounter Summary ---
Author Organization [facility] Address [address] [place] [address] [place] [address] Care Team Providers Care Stereotyper Apprentice Name Role Phone Mary Barber MD Unavailable Thomas Brian MD Unavailable Unavailable Efren Josey [facility] Unavailable [phone] Encounter Details Date Type Department Care Team ([facility] Contact Info) Description 10/02/2016 Orders Only [facility] [address] [place] [address] Gladis Grady, RN Social History Tobacco Use Types Packs/Day [...] (Late Contact Info) Description 02/15/2024 1:30 PM TUTORING CLINICIAN Office Visit [facility] ld [address] [place] [address] Tyrell Leiva, PA-C [address] [place] [address] [phone] 02/15/2024 1:30 PM TUTORING CLINICIAN Allied Health/Nurse Visit [facility] [address] [place] [address] [phone] Mary Barber MD [address] [place] [address] 03/15/2024 11:15 AM TUTORING CLINICIAN Office Visit [facility] [address] [place] [address] Jim Tamez MD [address] [place] [address] 05/16/2024 1:15 AM CDT Allied Health/Nurse Visit [facility] ld [address] [place] [address] [phone] Mary Barber MD [address] [place] [address] 09/07/2024 9:00 AM CDT Office Visit [address] [place] [address] Tiffany Badillo MD [address] [place] [address] documented as of this encounter Visit Diagnoses Not on filedocumented in this encounter Care Teams Stereotyper Apprentice Relationship Specialty Start Date End Date Mary Barber MD [address] [place] [address] EP Medicine Technologist CLINICAL CARDIAC ELECTROPHYSIOLOGY 09/15/16 Thomas Brian MD [address] [place] [address] CARDIOVASCULAR DISEASE 09/16/16 04/12/19 Josey Schwartz, AGACNP- [address] [facility] MA[address] [place] [id number] Nurse Practitioner Electrophysiology 09/18/16 12/22/19 documented as of this encounter
--- OUTSIDE RECORDS SUMMARY | 2024-01-27 07:59 | XMS_ITS | Encounter Summary ---
Author Organization [facility] Address [address] [facility] [place] [address] [place] [address] Care Team Providers Care Line Walker Name Role Phone Unavailable Primary Care Provider Unavailabl e Reason for Visit * Reason Onset Date Comments Medication Problem 09/09/2016 Encounter Details Date Type Department Care Team (Late st Contact Info) Description 09/09/2016 Telephone [facility] [address] [place] [address] Thomas Brian MD Medication Problem Social History Tobacco Use Types [...] Progress Notes * Gladis Grady RN - 09/09/2016 3:43 PM CDT Spoke with pt on phone, per Dr Brian's recommendation pt to take metoprolol ER 75 mg daily. Pt verbalizes understanding and has no further questions. * Gladis Grady RN - 09/09/2016 10:26 AM CDT Spoke with pt on phone, pt looked at her medicine bottle and states it says Metoprolol ER 25 mg and pt is to take twice per what Dr Orozco told her. PT states this what she has been doing. Advised ptthat office will speak wit Dr Brian and call her back. Pt verbalizes understanding and has no further questions. * Roberta Johnson - 09/09/2016 8:44 AM CDT Patient called, said that the medication Metoprolol was called in yesterday but with the wrong dosage. Said Dr. Brian increased her dosage and what was called in is the same she was taking. .Advised them I will relay message to the nurse and she will return their call. Verbally understood [phone], please call her before 11:00 to let her know . documented in this encounter Plan of Treatment Upcoming Encounters Date Type Department Care Team (Late st Contact Info) Description 02/15/2024 1:30 PM FUR TRIMMING MACHINE OPERATOR Office Visit [facility] ld [address] [place] [address] Tyrell Leiva, PA-C [address] [place] [address] 02/15/2024 1:30 PM FUR TRIMMING MACHINE OPERATOR Allied Health/Nurse Visit [facility] ld [address] [place] [address] Mary Barber MD [address] [place] [address] 03/15/2024 11:15 AM FUR TRIMMING MACHINE OPERATOR Office Visit [facility] [place] [address] Jim Tamez MD [address] [place] [address] 05/16/2024 1:15 AM CDT [facility] [address] [place] [address] Mary Barber MD [address] [place] [address] 09/07/2024 9:00 AM CDT Office Visit [facility] [place] [address] Tiffany Badillo MD [address] [place], [place] [address] documented as of this encounter Visit Diagnoses Not on filedocumented in this encounter
--- OUTSIDE RECORDS SUMMARY | 2024-01-27 07:59 | XMS_ITS | Encounter Summary ---
Author Organization [facility] Address [facility] [place] [address] [place] [address] Care Team Providers Care Warehouse Unloader Name Role Phone Mary Barber MD Unavailable Thomas Brian MD Unavailable Unavailable Josey Schwartz Unavailable [phone] Reason for Referral * (Routine) - Closed Specialty Diagnoses / Procedures Referred By Patrizia serra Referred To Contact Diagnoses PVC (premature ventricular contraction) Procedures HOLTER MONITOR 24 HR REC (13321) Josey Schwartz AGACNP-BC Phone: tel: fax: Referral ID Status Reason Start Date Expiration Date Visits Re quested Visits Authorized [id number] Closed 09/22/2016 10/23/2017 1 1 Reason for Visit * Reason Comments Follow Up atrial fibrillation and ICD Encounter Details Date Type Department Care Team (Latest Contact Info) Description 09/22/2016 1:30 PM CDT Office Visit [facility] [address] [place] [address] Josey Schwartz AGACNP-BC [address] [facility] [address] [place] [address] Follow Up (atrial fibrillation and ICD) Social History Tobacco Use Types Packs/Day [...] Sign Reading Time Taken Comments Blood Pressure 124/78 09/22/2016 1:04 PM CDT Pulse 60 09/22/2016 1:04 PM CDT Temperature - - Respiratory Rate 20 09/22/2016 1:04 PM CDT Oxygen Saturation 95% 09/22/2016 1:04 PM CDT Inhaled Oxygen Concentration - - Weight 84.4 kg (186 lb) 09/22/2016 1:04 PM CDT Height 157.5 cm (5' 2 ) 09/22/2016 1:04 PM CDT Body Mass Index 34.02 09/22/2016 1:04 PM CDT documented in this encounter Progress Notes * Josey Schwartz, AGACNP-BC - 09/22/2016 1:30 PM CDT Reason for Visit: Follow Up (atrial fibrillation and ICD) History of Present Illness: Ms. Shaffer is a very pleasant, 81-year-old lady with a history of paroxysmal atrial fibrillation with rapid ventricular response, refractory to medical therapy. She underwent ablation of the AV nodeand implantation of a dual-chamber [employer] pacemaker in April 2006. She used to be on Coumadin for stroke prevention; however, this was stopped in 2007 due to a subdural hematoma requiring evacuation. The patient developed severe nonischemic cardiomyopathy, likely induced by right ventricular pacing, prompting upgrade of the pacemaker to a biventricular [employer] ICD in March 2013. Because of intolerance to Coumadin therapy due to intracranial bleeding, the patient underwent percutaneous ligation of the left atrial appendage using a Lariat device on 10/19/2013. She tolerated the procedure well without complications. Ms. Shaffer returns to clinic for followup today and reports she has been feeling fairly well. 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 She has been getting fatigued more easily over the last several months. She denies any chest pain, palpitations, dizziness, syncope, orthopnea, or leg edema. She has no pain or swelling at the ICD pocket and has had no ICD shocks. EKG: EKG done today was reviewed and that showed sinus rhythm with ventricular pacing and PVCs. DEVICE INTERROGATION: Device was interrogated today and that showed a [employer] biventricular ICD with good battery voltage and satisfactory pacing and sensing thresholds. Underlying rhythm is sinus rhythm with complete heart block. The patient has been in atrial paced rhythm 27% of the time and biventricular paced rhythm 91% of the time. There are is a 4% burden of atrial fibrillation. No ventricular arrhythmias noted. DIAGNOSES AND IMPRESSION: 1. Paroxysmal atrial fibrillation with rapid ventricular response, refractory to medical therapy. Status post ablation of the AV node and implantation of a dual- chamber [employer] pacemaker inApril 2006. The patient continues to have paroxysmal atrial fibrillation of minimal burden which has not been symptomatic. 2. Status post upgrade of pacemaker to a [employer] biventricular ICD in March 2013. Device is of normal function in clinic today. 3. Intolerance to Coumadin due to subdural hematoma, requiring evacuation in June 2007. 4. Status post percutaneous ligation of left atrial appendage using LARIAT device on 10/19/2013. 5. Severe nonischemic cardiomyopathy with ejection fraction of 34% in the past, likely induced by right ventricular pacing. Ejection fraction improved after implant of biventricular device, but was back down to 30-35% on most recent echocardiogram. 6. Premature ventricular contractions. Patient has PVCs on EKG and exam today. 7. Hypertension. Blood pressure is well controlled in clinic today. 8 Hypothyroidism. 9. No known history of coronary artery disease, diabetes, or stroke. Recommendations and Plan: 1. Will obtain 24 hour holter to evaluate burden of PVCs. If large amount, would consider catheter ablation. 2. Will make no changes to the patient's medications at this time. 3. Will plan to follow patient in our clinic in 1 year, earlier as needed. Medications: Current Outpatient Prescriptions: ??? aspirin 81 MG tablet, Take by mouth daily., Disp: , Rfl: ??? CRESTOR 40 MG tablet, Take 1 tablet (40 mg total) by mouth daily., Disp: 90 tablet, Rfl: 3 ??? doxycycline monohydrate 50 MG capsule, Take 50 mg by mouth daily. , Disp: , Rfl: ??? esomeprazole (NEXIUM) 20 MG capsule, Take 1 tablet by mouth daily., Disp: , Rfl: ??? levothyroxine 75 MCG tablet, Take 75 mcg by mouth daily., Disp: , Rfl: ??? metoprolol succinate 50 MG 24 hr tablet, Take 1.5 tablets (75 mg total) by mouth daily., Disp: 135 tablet, Rfl: 3 ??? Multiple [...] History Problem Relation Age of Onset ??? [place] Mother ??? [place] Father ??? CABG Brother ??? Stent Brother [...] Cardiovascular: See HPI Gastrointestinal: Positive for heartburn ( Severe Reflux History Stomach bypass surgery). Negative for blood in stool and melena. Genitourinary: Negative for dysuria. Musculoskeletal: Positive for myalgias and joint stiffness/pain. Arthritis Skin: Negative for rash. Neurological: Negative for tingling/numbness and focal weakness. Endo/Heme/Allergies: Negative for new or significant bruising/bleeding and polydipsia. Psychiatric/Behavioral: Negative for depression and new or significant memory loss. Filed Vitals: 09/22/16 1304 BP: 124/78 Pulse: 60 Resp: 20 SpO2: 95% Weight: 84.4 kg (186 lb) Height: 5' 2 (1.575 m) Physical Exam Constitutional: She is oriented to person, place, and time. She appears well- developed and well-nourished. No distress. HENT: Mouth/Throat: Oropharynx is clear and moist. Eyes: Conjunctivae are normal. Neck: Neck supple. Normal carotid pulses and no JVD present. Carotid bruit is not present. Cardiovascular: Normal rate, normal heart sounds and normal pulses. An irregular rhythm present. PMI is not displaced. No murmur heard. [...] a normal mood and affect. Vitals reviewed. Diagnoses/Impression: 1. Paroxysmal atrial fibrillation 2. PVC (premature ventricular contraction) HOLTER MONITOR 24 HR REC 3. Biventricular ICD (implantable cardioverter-defibrillator) in place 4. NICM (nonischemic cardiomyopathy) 5. S/P AV trell ablation 6. Atrial fibrillation, unspecified type ELECTROCARDIOGRAM (NON MIDMARK ACQUIRED) Atrial Fibrillation documented in this encounter Plan of Treatment Upcoming Encounters Date Type Department Care Team (Late st Contact Info) Description 02/15/2024 1:30 PM SKID MAN Office Visit [facility] ld [address] [place] [address] Tyrell Leiva, PA-C [address] [place] [address] 02/15/2024 1:30 PM SKID MAN Allied Health/Nurse Visit [facility] ld [address] [place] [address] Mary Barber MD [address] [place] [address] 03/15/2024 11:15 AM SKID MAN Office Visit [facility] [address] [place] [address] Jim Tamez MD [address] [place] [address] 05/16/2024 1:15 AM CDT Allied Health/Nurse Visit [facility] ld [address] [place] [address] Mary Barber MD [address] [place] [address] 09/07/2024 9:00 AM CDT Office Visit [facility] [place] [address] Tiffany Badillo MD [address] [place], [place] [address] documented as of this encounter Procedures Procedure Name Priority Date/Time Associated Diagnosis Comments ELECTROCARDIOGRAM (NON MIDMARK ACQUIRED) Routine 09/22/2016 Atrial fibrillation, unspecified type ([facility] HHS/HCC) HOLTER MONITOR 24 HR REC Routine 09/22/2016 PVC (premature ventricular contraction) documented in this encounter Results * ELECTROCARDIOGRAM (09/22/2016) Narrative Tess Montemayor LPN - 09/22/2016 See results in cardio perfect us Josey JONESP-BC PROCEDURES-ORDERABLE NO CHARGE Final Result * HOLTER MONITOR 24 HR REC (66710) (09/22/2016) us Josey JONESP-BC HOLTER Final Re sult documented in this encounter Visit Diagnoses Diagnosis Paroxysmal atrial fibrillation (CMS/HCC HHS/HCC)- Primary Atrial fibrillation PVC (premature ventricular contraction) Other premature beats Biventricular ICD (implantable cardioverter-defibrillator) in place NICM (nonischemic cardiomyopathy) ([facility] HHS/HCC) Other primary cardiomyopathies S/P AV trell ablation Other postprocedural status Atrial fibrillation, unspecified type (CMS/HCC HHS/HCC) documented in this encounter Care Teams Warehouse Unloader Relationship Specialty Start Date End Date Mary Barber MD [address] [place] [address] EP Plastic Die Maker Apprentice CLINICAL CARDIAC ELECTROPHYSIOLOGY 09/15/16 Thomas Brian MD [address] [place] [address] CARDIOVASCULAR DISEASE 09/16/16 04/12/19 Josey Schwartz AGACNP-BC [address] [facility] [address] [place] [address] Nurse Practitioner Electrophysiology 09/18/16 12/22/19 documented as of this encounter
--- OUTSIDE RECORDS SUMMARY | 2024-01-27 07:59 | XMS_ITS | Encounter Summary ---
Author Organization [facility] Address [address] [place] [address] [place] [address] Care Team Providers Care Marine Pipefitter Helper Name Role Phone Mary Barber MD Unavailable Thomas Brian MD Unavailable Unavailable Efren Josey [facility] Unavailable Reason for Visit * Reason Onset Date Comments Results 10/02/2016 Encounter Details Date Type Department Care Team ([facility] st Contact Info) Description 10/02/2016 Telephone [employer] [facility] [address] [place] [address] Mary Barber MD [address] [place] [address] Results Social History Tobacco Use Types Packs/Day [...] Progress Notes * Gladis Grady RN - 10/02/2016 10:16 AM CDT Spoke with pt on phone informed of lab results, per Dr Brian's recommendation to start lisinopril 5 mg. Verified pharmacy. Pt verbalizes understanding and has no further questions. * JENNY Hines - 10/02/2016 9:03 AM CDT Called pt with result of holter showing rare PVCs. She asked again about the decline in her EF and what can be done. She reports she has not heard back from Dr. Brian's office yet about ACEI. I told her I will message them and ask that they prescribe it for her, and she will follow up with Dr. Brian at his discretion. She verbalized understanding and had no further questions. * Chanell Johnson - 10/02/2016 8:46 AM CDT Pt called to get results of 24-hr HM from Josey. Wants to know how much her heart function has gone down and what Dr. Sunil perez like to do about it. Pls return call to [phone]. documented in this encounter Plan of Treatment Upcoming Encounters Date Type Department Care Team (Late st Contact Info) Description 02/15/2024 1:30 PM FILM CLEANER Office Visit [facility] ld [address] [place] [address] Tyrell Leiva, PAHaylieC [address] [place] [address] 02/15/2024 1:30 PM FILM CLEANER Allied Health/Nurse Visit [facility] [address] [place] [address] Mary Barber MD [address] [place] [address] 03/15/2024 11:15 AM FILM CLEANER Office Visit [facility] [address] [place] [address] Jim Tamez MD [address] [place] [address] 05/16/2024 1:15 AM CDT Allied Health/Nurse Visit [facility] [address] [place] [address] Mary Barber MD [address] [place] [address] [phone] 09/07/2024 9:00 AM CDT Office Visit [address] [place] [address] Tiffany Badillo MD [address] [place] [address] documented as of this encounter Visit Diagnoses Not on filedocumented in this encounter Care Teams Marine Pipefitter Helper Relationship Specialty Start Date End Date Mary Barber MD [address] [place] [address] EP Commercial Loan Officer CLINICAL CARDIAC ELECTROPHYSIOLOGY 09/15/16 Thomas Brian MD [address] [place] [address] CARDIOVASCULAR DISEASE 09/16/16 04/12/19 Josey Schwartz AGACNP- [address] [facility] [address] [place] [address] Nurse Practitioner Electrophysiology 09/18/16 12/22/19 documented as of this encounter
--- OUTSIDE RECORDS SUMMARY | 2024-01-27 07:59 | XMS_ITS | Encounter Summary ---
Author Organization [facility] Address [address] [facility] [place] [address] [place] [address] Care Team Providers Care Instrument Tester Name Role Phone Unavailable Primary Care Provider Unavailabl e Reason for Visit * Reason Onset Date Comments Medication Problem 03/07/2016 Encounter Details Date Type Department Care Team (Late st Contact Info) Description 03/07/2016 Telephone [employer] [facility] [address] [place] [address] Thomas Brian MD Medication Problem [...] as of this encounter Progress Notes * Juany Alvarenga LPN - 03/07/2016 3:24 PM CST New script sent to pharmacy for generic crestor LESOFT HCM DEVELOPER * Roberta Johnson - 03/07/2016 2:41 PM CST [facility] pharmacy in [place] called, said that pt is wanting Crestor, this is needing prior authorization said it has . Call , with Khloe, her ID is [id number] .Advised them I will relay message to the nurse and she will return their call. Verbally understood LESOFT HCM DEVELOPER documented in this encounter Plan of Treatment Upcoming Encounters Date Type Department Care Team (Late st Contact Info) Description 02/15/2024 1:30 PM PEOPLESOFT HCM DEVELOPER Office Visit [facility] [address] [place] [address] Tyrell Leiva PAHaylieC [address] [place] [address] 02/15/2024 1:30 PM PEOPLESOFT HCM DEVELOPER Allied Health/Nurse Visit [facility] [address] [place] [address] Mary Barber MD [address] [place] [address] 03/15/2024 11:15 AM PEOPLESOFT HCM DEVELOPER Office Visit [facility] [place] [address] [place] [address] Jim Tamez MD [address] [place] [address] 05/16/2024 1:15 AM CDT Allied Health/Nurse Visit [facility] [address] [place] [address] Mary Barber MD [address] [place] [address] 09/07/2024 9:00 AM CDT Office Visit [facility] [place] [address] [address] [place] [address] Tiffany Badillo MD [address] [place] [address] documented as of this encounter Visit Diagnoses Not on filedocumented in this encounter
--- OUTSIDE RECORDS SUMMARY | 2024-01-27 07:59 | XMS_ITS | Encounter Summary ---
Author Organization [facility] Address [facility] [facility] [place] [address] [place] [address] Care Team Providers Care Ladle Repairer Name Role Phone Unavailable Primary Care Provider Unavailabl e Reason for Visit * Reason Onset Date Comments Appointment Reminder 08/26/2016 Encounter Details Date Type Department Care Team (Late st Contact Info) Description 08/26/2016 Telephone [facility] [address] [place] [address] Mary Barber MD [address] [place] [address] Appointment Reminder Social History Tobacco [...] encounter Progress Notes * Chanell Johnson - 08/26/2016 9:00 AM CDT Pt w/ device needing f/u. Appt scheduled 09-22-16 @ 12:45. Letter sent. documented in this encounter Plan of Treatment Upcoming Encounters Date Type Department Care Team (Late st Contact Info) Description 02/15/2024 1:30 PM BATCH DUMPER Office Visit [facility] ld [address] [place] [address] Tyrell Leiva PA-C [address] [place] [address] 02/15/2024 1:30 PM BATCH DUMPER Allied Health/Nurse Visit [facility] ld [address] [place] [address] [phone] Mary Barber MD [address] [place] [address] 03/15/2024 11:15 AM BATCH DUMPER Office Visit [facility] [address] [place] [address] Jim Tamez MD [address] [place] [address] 05/16/2024 1:15 AM CDT Allied Health/Nurse Visit [facility] ld [address] [place] [address] Mary Barber MD [address] [place] [address] 09/07/2024 9:00 AM CDT Office Visit [facility] [address] [place] [address] Tiffany Badillo MD [address] [place] [address] documented as of this encounter Visit Diagnoses Not on filedocumented in this encounter
--- OUTSIDE RECORDS SUMMARY | 2024-01-27 07:59 | XMS_ITS | Encounter Summary ---
Author Organization [facility] Address [address] [facility] [place] [address] [place] [address] Care Team Providers Care Biometrician Name Role Phone Unavailable Primary Care Provider Unavailabl e Encounter Details Date Type Department Care Team (Late Contact Info) Description 03/07/2016 Orders Only [employer] [facility] [address] [place] [address] Juany Alvarenga LPN Social History Tobacco Use Types Packs/Day Years [...] (Late Contact Info) Description 02/15/2024 1:30 PM SCREENING SPECIALIST Office Visit [facility] [address] [place] [address] Tyrell Leiva, PA-C [address] [place] [address] 02/15/2024 1:30 PM SCREENING SPECIALIST Allied Health/Nurse Visit [facility] [address] [place] [address] Mary Barber MD [address] [place] [address] 03/15/2024 11:15 AM SCREENING SPECIALIST Office Visit [facility] [address] [place] [address] Jim Tamez MD [address] [place], [place] [address] 05/16/2024 1:15 AM CDT Allied Health/Nurse Visit [facility] [address] [place] [address] Mary Barber MD [address] [place] [address] 09/07/2024 9:00 AM CDT Office Visit [facility] [address] [place] [address] Tiffany Badillo MD [address] [place] [address] documented as of this encounter Visit Diagnoses Not on filedocumented in this encounter
--- OUTSIDE RECORDS SUMMARY | 2024-01-27 07:59 | XMS_ITS | Encounter Summary ---
Author Organization [facility] Address [address] [facility] [place] [address] [place] [address] Care Team Providers Care Health And Human Performance Professor Name Role Phone Unavailable Primary Care Provider Unavailabl e Reason for Visit * Reason Onset Date Comments Medication Information 09/08/2016 Encounter Details Date Type Department Care Team (Late st Contact Info) Description 09/08/2016 Telephone [employer] [facility] [address] [place] [address] Thomas Brian MD Medication Information Social History Tobacco Use Types Packs/Day [...] Progress Notes * Gladis Grady RN - 09/08/2016 3:46 PM CDT Spoke with Pharmacist and states pt is taking the extended release and not the tartrate. Per Dr Brian's recommendations to keep on succinate. New script sent. * Roberta Johnson - 09/08/2016 12:[address] [facility] called with question on patients Metoprolol. .Advised them I will relay message tot nurse and she will return their call. Verbally understood [phone] documented in this encounter Plan of Treatment Upcoming Encounters Date Type Department Care Team (Late st Contact Info) Description 02/15/2024 1:30 PM PLYWOOD AND VENEER REPAIRER Office Visit [facility] [address] [place] [address] Tyrell Leiva PAHaylieC [address] [place] [address] 02/15/2024 1:30 PM PLYWOOD AND VENEER REPAIRER Allied Health/Nurse Visit [facility] [address] [place] [address] Mary Barber MD [address] [place] [address] 03/15/2024 11:15 AM PLYWOOD AND VENEER REPAIRER Office Visit [facility] [place] [address] [address] Jim Tamez MD [address] [place] [address] 05/16/2024 1:15 AM CDT Allied Health/Nurse Visit [facility] [address] [place] [address] Mary Barber MD [address] [place] [address] 09/07/2024 9:00 AM CDT Office Visit [facility] [place] [address] [address] Tiffany Badillo MD [address] [place] [address] documented as of this encounter Visit Diagnoses Not on filedocumented in this encounter
--- OUTSIDE RECORDS SUMMARY | 2024-01-27 07:59 | XMS_ITS | Encounter Summary ---
Author Organization [facility] Address [address] [place] [address] [place] [address] Care Team Providers Care Sack Sewer Name Role Phone Mary Barber MD Unavailable Thomas Brian MD Unavailable Unavailable Efren Josey [facility] Unavailable [phone] Reason for Visit * Reason Onset Date Comments Surgical Clearance 11/17/2016 Encounter Details Date Type Department Care Team ([facility] st Contact Info) Description 11/17/2016 Telephone [employer] [facility] [address] [place] [address] Mary Barber MD [address] [place] [address] Surgical Clearance Social History Tobacco Use Types [...] encounter Progress Notes * Chanell Johnson - 11/19/2016 6:30 AM CDT I have faxed a request to Dr. Zuniga's office and am watching for its arrival. * Erika Meeks RN - 11/17/2016 9:19 AM CDT Have them fax us a form for Josey to sign, please. * Chanell Johnson - 11/17/2016 9:05 AM CDT Pt called to say that Dr. Zuniga has not heard from Dr. Barber's office w/ regard to cardiac clearance prior to TKR surgery. Per chart notes, Gladis RN to Dr. Brian, faxed paperwork to Dr. Zuniga on 11/13. Pt says Dr. Zuniga wants clearance from EP office also. I told her Dr. Barber does not give pre-op cardiac clearance. [place] states Dr. Zuniga's office understands this, but would like this in writing from our office to be faxed to [phone]; [facility] phone [phone]. documented in this encounter Plan of Treatment Upcoming Encounters Date Type Department Care Team (Late st Contact Info) Description 02/15/2024 1:30 PM HUMAN RESOURCES OFFICER [facility] [address] [place] [address] Tyrell Leiva PA-C [address] [place] [address] 02/15/2024 1:30 PM HUMAN RESOURCES OFFICER Allied Health/Nurse [facility] [address] [place] [address] Mary Barber MD [address] [place] [address] 03/15/2024 11:15 AM HUMAN RESOURCES OFFICER Office Visit [facility] [address] [place] [address] Jim Tamez MD [address] [place] [address] 05/16/2024 1:15 AM CDT Allied Health/Nurse Visit [facility] [address] [place] [address] Mary Barber MD [address] [place] [address] 09/07/2024 9:00 AM CDT Office Visit [facility] [address] [place] [address] Tiffany Badillo MD [address] [place] [address] documented as of this encounter Visit Diagnoses Not on filedocumented in this encounter Care Teams Sack Sewer Relationship Specialty Start Date End Date Mary Barber MD [address] [place] [address] EP Jacquard Plate Maker CLINICAL CARDIAC ELECTROPHYSIOLOGY 09/15/16 Thomas Brian MD [address] [place] [address] CARDIOVASCULAR DISEASE 09/16/16 04/12/19 Josey [facility] [address] [facility] [address] [place] [address] Nurse Practitioner Electrophysiology 09/18/16 12/22/19 documented as of this encounter
--- OUTSIDE RECORDS SUMMARY | 2024-01-27 07:59 | XMS_ITS | Encounter Summary ---
Author Organization [facility] Address [address] [facility] [place] [address] [place] [address] Care Team Providers Care Digital Account Supervisor Name Role Phone Mary Barber MD Unavailable Thomas Brian MD Unavailable Unavailable Josey Schwartz Unavailable [phone] Reason for Visit * Reason Onset Date Comments Medication 09/22/2016 Encounter Details Date Type Department Care Team (Late st Contact Info) Description 09/22/2016 Telephone [employer] [facility] [address] [place] [address] Josey Schwartz AGACNP-BC [address] [facility] [address] [place] [address] Medication Social History Tobacco Use Types Packs/Day [...] as of this encounter Progress Notes * JENNY Hines - 09/22/2016 3:38 PM CDT I saw pt today in follow up. I reviewed chart and it looks like Dr. Brian suggested ACEI if BMP stable. Results are scanned in. Please review and order if appropriate. Thank you! documented in this encounter Plan of Treatment Upcoming Encounters Date Type Department Care Team (Late st Contact Info) Description 02/15/2024 1:30 PM ADMINISTRATIVE ASSISTANT RECEPTIONIST Office [facility] ld [address] [place] [address] Tyrell Leiva, PA-C [address] [place] [address] 02/15/2024 1:30 PM ADMINISTRATIVE ASSISTANT RECEPTIONIST Allied Health/Nurse [facility] [address] [place] [address] Mary Barber MD [address] [place] [address] 03/15/2024 11:15 AM ADMINISTRATIVE ASSISTANT RECEPTIONIST Office Visit [facility] [place] [address] [place] [address] Jim Tamez MD [address] [place] [address] 05/16/2024 1:15 AM CDT Allied Health/Nurse [facility] [address] [place] [address] Mary Barber MD [address] [place] [address] 09/07/2024 9:00 AM CDT Office Visit [facility] [place] [address] [place] [address] Tiffany Badillo MD [address] [place], [place] [address] documented as of this encounter Visit Diagnoses Not on filedocumented in this encounter Care Teams Digital Account Supervisor Relationship Specialty Start Date End Date Mary Barber MD [address] [place] [address] EP Process Supervisor CLINICAL CARDIAC ELECTROPHYSIOLOGY 09/15/16 Thomas Brian MD [address] [place] [address] CARDIOVASCULAR DISEASE 09/16/16 04/12/19 Josey Schwartz AGACNP- [address] [address] Nurse Practitioner Electrophysiology 09/18/16 12/22/19 documented as of this encounter
--- OUTSIDE RECORDS SUMMARY | 2024-01-27 07:59 | XMS_ITS | Encounter Summary ---
Author Organization [facility] Address [address] [facility] [place] [address] [place] [address] Care Team Providers Care Vamp Marker Name Role Phone Unavailable Primary Care Provider Unavailabl e Reason for Visit * Reason Onset Date Comments Medication Request 03/07/2016 Encounter Details Date Type Department Care Team (Late st Contact Info) Description 03/07/2016 Telephone [employer] [facility] [address] [place] [address] Thomas Brian MD Medication Request Social History Tobacco Use Types Packs/Day [...] Notes * Juany Alvarenga LPN - 03/07/2016 1:32 PM CST Refill sent to pharmacy MOTIVE ACCESSORY INSTALLER * Roberta Johnson - 03/07/2016 10:09 AM CST Patient called said that [facility] in [place] called she is needing her Crestor refilled. She is former pt of Dr. Orozco, saw Dr. Brian in Nov. .Advised them I will relay message to the nurse and she will return their call with any questions or concerns. Verbally understood [phone] ([facility] in [place]) MOTIVE ACCESSORY INSTALLER documented in this encounter Plan of Treatment Upcoming Encounters Date Type Department Care Team (Late st Contact Info) Description 02/15/2024 1:30 PM AUTOMOTIVE ACCESSORY INSTALLER Office Visit [facility] [address] [place] [address] Tyrell Leiva PAHaylieC [address] [place] [address] 02/15/2024 1:30 PM AUTOMOTIVE ACCESSORY INSTALLER Allied Health/Nurse Visit [facility] [address] [place] [address] Mary Barber MD [address] [place] [address] 03/15/2024 11:15 AM AUTOMOTIVE ACCESSORY INSTALLER Office Visit [facility] [place] [address] [place] [address] Jim Tamez MD [address] [place] [address] 05/16/2024 1:15 AM CDT Allied Health/Nurse Visit [facility] [address] [place] [address] Mary Barber MD [address] [place] [address] 09/07/2024 9:00 AM CDT Office Visit [facility] [place] [address] [place] [address] Tiffany Badillo MD [address] [place] [address] documented as of this encounter Visit Diagnoses Not on filedocumented in this encounter
--- OUTSIDE RECORDS SUMMARY | 2024-01-27 07:59 | XMS_ITS | Encounter Summary ---
Author Organization [facility] Address [address] [facility] [place] [address] [place] [address] Care Team Providers Care Sample Grader Name Role Phone Mary Barber MD Unavailable Thomas Brian MD Unavailable Unavailable Josey Schwartz [facility] Unavailable [phone] Reason for Visit * Reason Onset Date Comments Surgical Clearance 11/13/2016 Encounter Details Date Type Department Care Team (Late st Contact Info) Description 11/13/2016 Telephone [employer] [facility] [address] [place] [address] Thomas Brian MD Surgical Clearance Social History Tobacco Use Types [...] Progress Notes * Gladis Grady RN - 11/13/2016 5:27 PM CDT Paperwork completed and faxed to [phone] * Lynne Brewster - 11/13/2016 9:15 AM CDT Patient saw ortho Dr. Zuniga on 10/30, says they faxed over request for cardiac clearance for patient's right TKR surgery not scheduled yet. I told her we did not receive this form. She asked that I call them to get it again. I called their office and left a message for them to fax again to the fax# in our computer. Dr. Zuniga in [place] ph # [phone], fax # [phone] documented in this encounter Plan of Treatment Upcoming Encounters Date Type Department Care Team (Late st Contact Info) Description 02/15/2024 1:30 PM BACTERIOLOGY TEACHER [facility] [address] [place] [address] Tyrell Leiva, PA-C [address] [place] [address] 02/15/2024 1:30 PM BACTERIOLOGY TEACHER Allied Health/Nurse Visit [facility] [address] [place] [address] Mary Barber MD [address] [place] [address] 03/15/2024 11:15 AM BACTERIOLOGY TEACHER Office Visit [facility] [place] [address] Jim Tamez MD [address] [place] [address] 05/16/2024 1:15 AM CDT Allied Health/Nurse Visit [facility] [address] [place] [address] Mary Barber MD [address] [place] [address] 09/07/2024 9:00 AM CDT [facility] [place] [address] Tiffany Badillo MD [address] [place] [address] documented as of this encounter Visit Diagnoses Not on filedocumented in this encounter Care Teams Sample Grader Relationship Specialty Start Date End Date Mary Barber MD [address] [place] [address] EP Router Operator CLINICAL CARDIAC ELECTROPHYSIOLOGY 09/15/16 Thomas Brian MD [address] [place] [address] CARDIOVASCULAR DISEASE 09/16/16 04/12/19 Josey Schwartz [facility] [address] [place] [address] [place] [address] Nurse Practitioner Electrophysiology 09/18/16 12/22/19 documented as of this encounter
--- OUTSIDE RECORDS SUMMARY | 2024-01-27 07:59 | XMS_ITS | Encounter Summary ---
Author Organization [facility] Address [address] [place] [address] [place] [address] Care Team Providers Care Systems Software Engineer Name Role Phone Mary Barber MD Unavailable Thomas Brian MD Unavailable Unavailable Josey Schwartz [facility] Unavailable [phone] Encounter Details Date Type Department Care Team (Late Contact Info) Description 09/11/2016 Abstract [facility] Ul[facility]ound [address] [place] [address] Thomas Brian MD Social History Tobacco Use [...] (Late Contact Info) Description 02/15/2024 1:30 PM DESTINATION IMAGINATION COORDINATOR Office Visit [facility] ld [address] [place] [address] Tyrell Leiva PA-C [address] [place] [address] 02/15/2024 1:30 PM DESTINATION IMAGINATION COORDINATOR Allied Health/Nurse Visit [facility] [address] [place] [address] Mary Barber MD [address] [place] [address] 03/15/2024 11:15 AM DESTINATION IMAGINATION COORDINATOR Office Visit [address] [place] [address] Jim Tamez MD [address] [place] [address] 05/16/2024 1:15 AM CDT Allied Health/Nurse Visit [facility] ld [address] [place] [address] Mary Barber MD [address] [place] [address] 09/07/2024 9:00 AM CDT Office Visit [address] [place] [address] Tiffany Badillo MD [address] [place] [address] documented as of this encounter Visit Diagnoses Diagnosis Atrial fibrillation ([facility]) Atrial fibrillation documented in this encounter Care Teams Systems Software Engineer Relationship Specialty Start Date End Date Mary Barber MD [address] [place] [phone] EP Life Advisor CLINICAL CARDIAC ELECTROPHYSIOLOGY 09/15/16 Thomas Brian MD [address] [place] [address] CARDIOVASCULAR DISEASE 09/16/16 04/12/19 Josey Schwartz, [facility] [address] [facility] [address] [place] [address] Nurse Practitioner Electrophysiology 09/18/16 12/22/19 documented as of this encounter
--- OUTSIDE RECORDS SUMMARY | 2024-01-27 08:00 | XMS_ITS | Encounter Summary ---
Author Organization [facility] Address [address] [facility] [place] [address] [place] [address] Care Team Providers Care Oyster Harvester Name Role Phone Unavailable Primary Care Provider Unavailabl e Encounter Details Date Type Department Care Team ([facility] Contact Info) Description 12/18/2015 Orders Only [facility] [address] [place] [address] Gladis Grady RN Social History Tobacco Use [...] (Late Contact Info) Description 02/15/2024 1:30 PM JAVA JSF DEVELOPER Office Visit [facility] [address] [place] [address] Tyrell Leiva, PA-C [address] [place] [address] 02/15/2024 1:30 PM JAVA JSF DEVELOPER Allied Health/Nurse Visit [facility] [address] [place] [address] Mary Barber MD [address] [place] [address] 03/15/2024 11:15 AM JAVA JSF DEVELOPER Office Visit [facility] [address] [place] [address] Jim Tamez MD [address] [place], [place] [address] 05/16/2024 1:15 AM CDT Allied Health/Nurse Visit [facility] [address] [place] [address] Mary Barber MD [address] [place] [address] 09/07/2024 9:00 AM CDT Office Visit [facility] [address] [place] [address] Tiffany Badillo MD [address] [place] [address] documented as of this encounter Visit Diagnoses Not on filedocumented in this encounter
--- OUTSIDE RECORDS SUMMARY | 2024-01-27 08:00 | XMS_ITS | Encounter Summary ---
Author Organization [facility] Address [address] [facility] [place] [address] [place] [address] Care Team Providers Care Hedis Registered Nurse Rn Name Role Phone Unavailable Primary Care Provider Unavailabl e Encounter Details Date Type Department Care Team (Late Contact Info) Description 11/22/2014 Scan [facility] [address] [place] [address] Milagro Guan MD Social History Tobacco Use Types Packs/Day Years Used Date Smoking Tobacco: Never Comments Unknown Sex and Gender Information Value Date Recorded Sex Assigned at Not on file Legal Sex Female 10:54 PM CDT Gender Identity Not on file Sexual Orientation Not on file documented as of this encounter Plan of Treatment Upcoming Encounters Date Type Department Care Team (Late Contact Info) Description 02/15/2024 1:30 PM VENEER SAMPLE MAKER Office Visit [facility] ld [address] [place] [address] Tyrell Leiva, PA-C [address] [place] [address] 02/15/2024 1:30 PM VENEER SAMPLE MAKER Allied Health/Nurse [facility] [address] [place] [address] Mary Barber MD [address] [place] [address] 03/15/2024 11:15 AM VENEER SAMPLE MAKER Office Visit [facility] [address] [place] [address] Jim Tamez MD [address] [place], [place] [address] 05/16/2024 1:15 AM CDT Allied Health/Nurse Visit [facility] [address] [place] [address] Mary Barber MD [address] [place] [address] 09/07/2024 9:00 AM CDT Office Visit [facility] [address] [place] [address] Tiffany Badillo MD [address] [place], [place] [address] documented as of this encounter Visit Diagnoses Not on filedocumented in this encounter
--- OUTSIDE RECORDS SUMMARY | 2024-01-27 08:00 | XMS_ITS | Encounter Summary ---
Author Organization [facility] Address [address] [facility] [place] [address] [place] [address] Care Team Providers Care Patient Care Nursing Assistant Name Role Phone Mary Barber MD Unavailable Thomas Brian MD Unavailable Unavailable Efren Josey [facility] Unavailable [phone] Qasim Garrett DO Primary Care Provider [phone] Tiffany Badillo MD Unavailable [phone] Erick Abdi MD Unavailable [phone] Jim Tamez MD Unavailable Encounter Details Date Type Department Care Team (Late st Contact Info) Description 01/24/2015 Abstract [facility] [address] [place] [address] Mary Barber MD [address] [place] [address] Social History Tobacco Use Types Packs/Day Years [...] st Contact Info) Description 02/15/2024 1:30 PM DRILL SERGEANT [facility] [address] [place] [address] Tyrell Leiva PA-C [address] [place] [address] 02/15/2024 1:30 PM DRILL SERGEANT Allied Health/Nurse Visit [facility] [address] [place] [address] Mary Barber MD [address] [place] [address] 03/15/2024 11:15 AM DRILL SERGEANT Office Visit [facility] [place] [address] [place] [address] Jim Tamez MD [address] [place], [place] [address] [phone] 05/16/2024 1:15 AM CDT Allied Health/Nurse Visit [facility] [address] [place] [address] Mary Barber MD [address] [place] [address] 09/07/2024 9:00 AM CDT Office Visit [facility] [place] [address] [place] [address] Tiffany Badillo MD [address] [place] [address] documented as of this encounter Visit Diagnoses Not on filedocumented in this encounter Care Teams Patient Care Nursing Assistant Relationship Specialty Start Date End Date Qasim Garrett DO [address] [place] [address] PCP - General FAMILY PRACTICE 04/13/19 Mary Barber MD [address] [place] [address] EP Paint Mixer CLINICAL CARDIAC ELECTROPHYSIOLOGY 09/15/16 Thomas Brian MD [address] [place] [address] CARDIOVASCULAR DISEASE 09/16/16 04/12/19 Josey Schwartz [facility] [address] [place] [address] Nurse Practitioner Electrophysiology 09/18/16 12/22/19 Tiffany Badillo MD [address] [place] [address] Consulting Physician INTERVENTIONAL CARDIOLOGY 12/23/19 Erick Abdi MD [address] [place] [address] Consulting Physician PAIN MANAGEMENT 09/06/20 Jim Tamez MD [address] [place] [address] Consulting Physician INTERNAL MEDICINE 09/10/23 documented as of this encounter
--- OUTSIDE RECORDS SUMMARY | 2024-01-27 08:00 | XMS_ITS | Encounter Summary ---
Author Organization [facility] Address [address] [facility] [place] [address] [place] [address] Care Team Providers Care Hygiene Coordinator Name Role Phone Unavailable Primary Care Provider Unavailabl e Encounter Details Date Type Department Care Team (Late st Contact Info) Description 10/29/2015 11:30 AM CDT Office Visit [facility] [address] [place] [address] Social History Tobacco Use Types [...] st Contact Info) Description 02/15/2024 1:30 PM ADVERTISING INTERNSHIP Office [facility] [address] [place] [address] Tyrell Leiva PAHaylieC [address] [place] [address] 02/15/2024 1:30 PM ADVERTISING INTERNSHIP Allied Health/Nurse [facility] [address] [place] [address] Mary Barber MD [address] [place] [address] 03/15/2024 11:15 AM ADVERTISING INTERNSHIP Office Visit [facility] [address] [place] [address] Jim Tamez MD [address] [place], [place] [address] 05/16/2024 1:15 AM CDT Allied Health/Nurse Visit [facility] [address] [place] [address] Mary Barber MD [address] [place] [address] 09/07/2024 9:00 AM CDT Office Visit [facility] [address] [place] [address] Tiffany Badillo MD [address] [place], [place] [address] documented as of this encounter Visit Diagnoses Not on filedocumented in this encounter
--- OUTSIDE RECORDS SUMMARY | 2024-01-27 08:00 | XMS_ITS | Encounter Summary ---
Author Organization [facility] Address [address] [facility] [address] [place] [address] Care Team Providers Care Bench Machine Operator Name Role Phone Unavailable Primary Care Provider Unavailabl e Reason for Visit * Reason Onset Date Comments Advise 10/03/2015 Encounter Details Date Type Department Care Team (Late Contact Info) Description 10/03/2015 Telephone [facility] [address] [place] [address] Jarrett Orozco MD Advise Social History Tobacco Use Types Packs/Day Years Used Date Smoking Tobacco: Never Comments Unknown Sex and Gender Information Value Date Recorded Sex Assigned at Not on file Legal Sex Female 10:54 PM CDT Gender Identity Not on file Sexual Orientation Not on file documented as of this encounter Progress Notes * Kristie Gorman RN - 10/03/2015 10:39 AM CDT Returned call to pt--discussed what she should be telling her other physicians when they ask about her cardiac disease. She VU with no further questions. Her care will be transferred to Dr Brian's office. documented in this encounter Plan of Treatment Upcoming Encounters Date Type Department Care Team (Late Contact Info) Description 02/15/2024 1:30 PM SKETCH ARTIST Office Visit [facility] [address] [place] [address] Tyrell Leiva, PAHaylieC [address] [place] [address] 02/15/2024 1:30 PM SKETCH ARTIST Allied Health/Nurse Visit [facility] [address] [place] [address] Mary Barber MD [address] [place] [address] 03/15/2024 11:15 AM SKETCH ARTIST Office Visit [facility] [address] [place] [address] Jim Tamez MD [address] [place], [place] [address] [phone] 05/16/2024 1:15 AM CDT Allied Health/Nurse Visit [facility] [address] [place] [address] [phone] Mary Barber MD [address] [place] [address] 09/07/2024 9:00 AM CDT Office Visit [facility] [place] [address] [place] [address] Tiffany Badillo MD [address] [place] [address] documented as of this encounter Visit Diagnoses Not on filedocumented in this encounter
--- OUTSIDE RECORDS SUMMARY | 2024-01-27 08:00 | XMS_ITS | Encounter Summary ---
Author Organization [facility] Address [address] [facility] [place] [address] [place] [address] Care Team Providers Care Chemical Dependency Counselor Name Role Phone Unavailable Primary Care Provider Unavailabl e Encounter Details Date Type Department Care Team (Late st Contact Info) Description 10/19/2015 Orders Only [facility] [address] [place] [address] Gómez Guevara, RN Social History Tobacco Use Types Packs/Day [...] st Contact Info) Description 02/15/2024 1:30 PM BURIAL VAULT DELIVERER AND INSTALLER [facility] [address] [place] [address] Tyrell Leiva, PAHaylieC [address] [place] [address] 02/15/2024 1:30 PM BURIAL VAULT DELIVERER AND INSTALLER Allied Health/Nurse [facility] [address] [place] [address] Mary Barber MD [address] [place] [address] 03/15/2024 11:15 AM BURIAL VAULT DELIVERER AND INSTALLER Office Visit [facility] [address] [place] [address] Jim Tamez MD [address] [place], [place] [address] 05/16/2024 1:15 AM CDT Allied Health/Nurse Visit [facility] [address] [place] [address] Mary Barber MD [address] [place] [address] 09/07/2024 9:00 AM CDT Office Visit [facility] [address] [place] [address] Tiffany Badillo MD [address] [place], [place] [address] documented as of this encounter Visit Diagnoses Not on filedocumented in this encounter
--- OUTSIDE RECORDS SUMMARY | 2024-01-27 08:00 | XMS_ITS | Encounter Summary ---
Author Organization [facility] Address Critical access hospital[address] [facility] [place] [address] [place] [address] Care Team Providers Care Tube Builder Name Role Phone Unavailable Primary Care Provider Unavailabl e Reason for Visit * Reason Onset Date Comments Follow Up Call 10/03/2015 Put patient on r ecall with Dr. Brian for December for 3mo, transfer from Dr. Orozco Encounter Details Date Type Department Care Team (Late st Contact Info) Description 10/03/2015 Telephone [employer] [facility] [address] [place] [address] Thomas Brian MD Follow Up Call (Put patient on recall with Dr. Brian for December for 3mo, transfer from Dr. Orozco) Social History Tobacco Use Types Packs/Day Years Used Date Smoking Tobacco: Never Comments Unknown Sex and Gender Information Value Date Recorded Sex Assigned at Not on file Legal Sex Female 10:54 PM CDT Gender Identity Not on file Sexual Orientation Not on file documented as of this encounter Progress Notes * Roberta Johnson - 10/03/2015 2:03 PM CDT ----- Message from Kristie Gorman RN sent at 10/03/2015 10:44 AM CDT ----- Transfer of pt care. Follow up 3 months in [place]. Pt aware. Thanks Patient is on Recall for 3mo (Dec) to see Dr. Brian documented in this encounter Plan of Treatment Upcoming Encounters Date Type Department Care Team (Late st Contact Info) Description 02/15/2024 1:30 PM PRINTING SIGN MACHINE OPERATOR Office Visit [facility] ld [address] [place] [address] Tyrell Leiva PA-C [address] [place] [address] 02/15/2024 1:30 PM PRINTING SIGN MACHINE OPERATOR Allied Health/Nurse Visit [facility] [address] [place] [address] Mary Barber MD [address] [place] [address] 03/15/2024 11:15 AM PRINTING SIGN MACHINE OPERATOR Office Visit [facility] [place] [address] [place] [address] Jim Tamez MD [address] [place] [address] 05/16/2024 1:15 AM CDT Allied Health/Nurse Visit [facility] [address] [place] [address] [phone] Mary Barber MD [address] [place] [address] [phone] 09/07/2024 9:00 AM CDT Office Visit [facility] [place] [address] [place] [address] Tiffany Badillo MD [address] [place] [address] documented as of this encounter Visit Diagnoses Not on filedocumented in this encounter
--- OUTSIDE RECORDS SUMMARY | 2024-01-27 08:00 | XMS_ITS | Encounter Summary ---
Author Organization [facility] Address [address] [facility] [place] [address] [place] [address] Care Team Providers Care Body Component Engineer Name Role Phone Unavailable Primary Care Provider Unavailabl e Encounter Details Date Type Department Care Team (Late Contact Info) Description 08/17/2015 Scan [facility] [address] [place] [address] Scanned, Documents Social History Tobacco Use Types [...] (Late Contact Info) Description 02/15/2024 1:30 PM SYNTHETIC STAPLE EXTRUDER Office Visit [facility] ld [address] [place] [address] Tyrell Leiva, PAHaylieC [address] [place] [address] 02/15/2024 1:30 PM SYNTHETIC STAPLE EXTRUDER Allied Health/Nurse Visit [facility] [address] [place] [address] Mary Barber MD [address] [place] [address] 03/15/2024 11:15 AM SYNTHETIC STAPLE EXTRUDER Office Visit [facility] [address] [place] [address] Jim Tamez MD [address] [place] [address] 05/16/2024 1:15 AM CDT Allied Health/Nurse Visit [facility] [address] [place] [address] Mary Barber MD [address] [place] [address] 09/07/2024 9:00 AM CDT Office Visit [facility] [address] [place] [address] Tiffany Badillo MD [address] [place] [address] documented as of this encounter Visit Diagnoses Not on filedocumented in this encounter
--- OUTSIDE RECORDS SUMMARY | 2024-01-27 08:00 | XMS_ITS | Encounter Summary ---
Author Organization [facility] Address [address] [facility] [place] [address] [place] [address] Care Team Providers Care Property Appraiser Name Role Phone Unavailable Primary Care Provider Unavailabl e Reason for Visit * Reason Onset Date Comments Question 10/02/2015 requesting sumar y of heart status Encounter Details Date Type Department Care Team ([facility] st Contact Info) Description 10/02/2015 Telephone [employer] [facility] [address] [place] [address] Jarrett Orozco MD Question (requesting sumary of heart status) Social History Tobacco Use Types Packs/Day Years Used Date Smoking Tobacco: Never Comments Unknown Sex and Gender Information Value Date Recorded Sex Assigned at Not on file Legal Sex Female 10:54 PM CDT Gender Identity Not on file Sexual Orientation Not on file documented as of this encounter Progress Notes * Sabine Sandy RN - 10/02/2015 1:49 PM CDT Patient would like Kristie to call her back. [phone] She states in the future she may require a knee replacement. She states anytime she is at a medicalappt they ask her for details about her heart disease and she struggles with giving them information. She wonders if someone can write her a summary of her heart history that she can use. 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 documented in this encounter Plan of Treatment Upcoming Encounters Date Type Department Care Team (Late st Contact Info) Description 02/15/2024 1:30 PM LIFTER/DRIVER Office Visit [facility] ld [address] [place] [address] Tyrell Leiva PA-C [address] [place] [address] 02/15/2024 1:30 PM LIFTER/DRIVER Allied Health/Nurse Visit [facility] ld [address] [place] [address] Mary Barber MD [address] [place] [address] 03/15/2024 11:15 AM LIFTER/DRIVER Office Visit [facility] [place] [address] [place] [address] Jim Tamez MD [address] [place], [place] [address] [phone] 05/16/2024 1:15 AM CDT Allied Health/Nurse Visit [facility] [address] [place] [address] Mary Barber MD [address] [place] [address] 09/07/2024 9:00 AM CDT Office Visit [facility] [place] [address] [place] [address] Tiffany Badillo MD [address] [place] [address] documented as of this encounter Visit Diagnoses Not on filedocumented in this encounter
--- OUTSIDE RECORDS SUMMARY | 2024-01-27 08:00 | XMS_ITS | Encounter Summary ---
Author Organization [facility] Address [address] [facility] [place] [address] [place] [address] Care Team Providers Care Steelworker Name Role Phone Unavailable Primary Care Provider Unavailabl e Encounter Details Date Type Department Care Team (Late Contact Info) Description 01/24/2015 Scan [facility] [address] [place] [address] Milagro Guan MD Social History [...] (Late Contact Info) Description 02/15/2024 1:30 PM SUPERVISORY CBP OFFICER Office Visit [facility] ld [address] [place] [address] Tyrell Leiva, PA-C [address] [place] [address] 02/15/2024 1:30 PM SUPERVISORY CBP OFFICER Allied Health/Nurse [facility] [address] [place] [address] Mary Barber MD [address] [place] [address] 03/15/2024 11:15 AM SUPERVISORY CBP OFFICER Office Visit [facility] [address] [place] [address] Jim Tamez MD [address] [place], [place] [address] 05/16/2024 1:15 AM CDT Allied Health/Nurse Visit [facility] [address] [place] [address] Mary Barber MD [address] [place] [address] 09/07/2024 9:00 AM CDT Office Visit [facility] [address] [place] [address] Tiffany Badillo MD [address] [place], [place] [address] documented as of this encounter Visit Diagnoses Not on filedocumented in this encounter
--- OUTSIDE RECORDS SUMMARY | 2024-01-27 08:00 | XMS_ITS | Encounter Summary ---
Author Organization [facility] Address [address] [facility] [place] [address] [place] [address] Care Team Providers Care Harm Reduction Worker Name Role Phone Unavailable Primary Care Provider Unavailabl e Encounter Details Date Type Department Care Team (Late st Contact Info) Description 01/24/2015 Abstract [facility] [address] [place] [phone] , Milagro Gage MD Social History Tobacco [...] Sign Reading Time Taken Comments Blood Pressure 120/60 01/24/2015 1:39 PM COMPENSATION COORDINATOR Pulse 64 01/24/2015 1:39 PM COMPENSATION COORDINATOR Temperature - - Respiratory Rate 16 01/24/2015 1:39 PM COMPENSATION COORDINATOR Oxygen Saturation - - Inhaled Oxygen Concentration - - Weight 128.8 kg (284 lb) 01/24/2015 1:39 PM COMPENSATION COORDINATOR Height 180.3 cm (5' 11 ) 01/24/2015 1:39 PM COMPENSATION COORDINATOR Body Mass Index 39.61 01/24/2015 1:39 PM COMPENSATION COORDINATOR documented in this encounter Plan of Treatment Upcoming Encounters Date Type Department Care Team (Late st Contact Info) Description 02/15/2024 1:30 PM COMPENSATION COORDINATOR Office Visit [facility] [address] [place] [address] Tyrell Leiva, PA-C [address] [place] [address] 02/15/2024 1:30 PM COMPENSATION COORDINATOR Allied Health/Nurse [facility] [address] [place] [address] Mary Barber MD [address] [place] [address] 03/15/2024 11:15 AM COMPENSATION COORDINATOR Office Visit [facility] [address] [place] [address] Jim Tamez MD [address] [place], [place] [address] [phone] 05/16/2024 1:15 AM CDT Allied Health/Nurse [facility] [address] [place] [address] Mary Barber MD [address] [place] [address] 09/07/2024 9:00 AM CDT Office Visit [facility] [address] [place] [address] Tiffany Badillo MD [address] [place] [address] documented as of this encounter Visit Diagnoses Not on filedocumented in this encounter
--- OUTSIDE RECORDS SUMMARY | 2024-01-27 08:00 | XMS_ITS | Encounter Summary ---
Author Organization [facility] Address [address] [facility] [place] [address] [place] [address] Care Team Providers Care Rock Room Worker Name Role Phone Unavailable Primary Care Provider Unavailabl e Encounter Details Date Type Department Care Team (Late Contact Info) Description 11/22/2014 [facility] [address] [phone] , Milagro Gage MD Social History Tobacco [...] st Contact Info) Description 02/15/2024 1:30 PM SPICE MIXER [facility] [address] [place] [address] Tyrell eLiva, PAHaylieC [address] [place] [address] 02/15/2024 1:30 PM SPICE MIXER Allied Health/Nurse [facility] [address] [place] [address] Mary Barber MD [address] [place] [address] 03/15/2024 11:15 AM SPICE MIXER Office Visit [facility] [address] [place] [address] Jim Tamez MD [address] [place], [place] [address] 05/16/2024 1:15 AM CDT Allied Health/[facility] Visit [facility] [address] [place] [address] Mary Barber MD [address] [place] [address] 09/07/2024 9:00 AM CDT Office Visit [facility] [address] [place] [address] Tiffany Badillo MD [address] [place], [place] [phone] documented as of this encounter Visit Diagnoses Not on filedocumented in this encounter
--- OUTSIDE RECORDS SUMMARY | 2024-01-27 08:01 | XMS_ITS | Encounter Summary ---
Author Organization [facility] Address [address] [place] [address] [place] [address] Care Team Providers Care Route Service Representative Name Role Phone Unavailable Primary Care Provider Unavailabl e Encounter Details Date Type Department Care Team (Late Contact Info) Description 10/11/2014 Scan [facility] [address] [place] [address] Milagro Guan MD Social History [...] (Late Contact Info) Description 02/15/2024 1:30 PM CELL PHONE REPAIR TECHNICIAN Office Visit [facility] [address] [place] [address] Tyrell Leiva, PA-C [address] [place] [address] 02/15/2024 1:30 PM CELL PHONE REPAIR TECHNICIAN Allied Health/Nurse [facility] [address] [place] [address] Mary Barber MD [address] [place] [address] 03/15/2024 11:15 AM CELL PHONE REPAIR TECHNICIAN Office Visit [facility] [address] [place] [address] Jim Tamez MD [address] [place], [place] [address] 05/16/2024 1:15 AM CDT Allied Health/Nurse Visit [facility] [address] [place] [address] Mary Barber MD [address] [place] [address] 09/07/2024 9:00 AM CDT Office Visit [facility] [address] [place] [address] Tiffany Badillo MD [address] [place], [place] [address] documented as of this encounter Visit Diagnoses Not on filedocumented in this encounter
--- OUTSIDE RECORDS SUMMARY | 2024-01-27 08:01 | XMS_ITS | Encounter Summary ---
Author Organization [facility] Address [address] [facility] [place] [address] [place] [address] Care Team Providers Care Reimbursement Rep Name Role Phone Unavailable Primary Care Provider Unavailabl e Encounter Details Date Type Department Care Team (Late Contact Info) Description 10/13/2014 Abstract [facility] [address] [place] [address] Milagro Cordero MD Social History Tobacco Use Types Packs/Day [...] (Late Contact Info) Description 02/15/2024 1:30 PM EAP CLINICIAN [facility] [address] [place] [address] Tyrell Leiva, PA-C [address] [place] [address] 02/15/2024 1:30 PM EAP CLINICIAN Allied Health/Nurse [facility] [address] [place] [address] Mary Barber MD [address] [place] [address] 03/15/2024 11:15 AM EAP CLINICIAN Office Visit [facility] [place] [address] Jim Tamez MD [address] [place] [address] 05/16/2024 1:15 AM CDT Allied Health/Nurse Visit [facility] [address] [place] [address] Mary Barber MD [address] [place] [address] 09/07/2024 9:00 AM CDT Office Visit [address] [place] [address] Tiffany Badillo MD [address] [place], [place] [address] [phone] documented as of this encounter Procedures Procedure Name Priority Date/Time Associated Diagnosis Comments CBC,CONVERSION Routine 10/13/2014 12:00 AM CDT BNP Routine 10/13/2014 12:00 AM CDT THYROID PANEL Routine 10/13/2014 12:00 AM CDT COMPREHENSIVE METABOLIC PANEL Routine 10/13/2014 12:00 AM CDT documented in this encounter Results * B-TYPE NATRIURETIC PEPTIDE (10/13/2014 12:00 AM CDT) B TYPE NATRIURETIC PEPTIDE 155 MEDINFORMATIX T O EPIC CONVERSION 10/13/2014 10/13/2014 Narrative MEDINFORMATIX TO EPIC CONVERSION - 10/13/2014 12:12 PM CDT Reviewed by ONI Mendez ??4 2014 12:14:57:000PM us Generic Conversion Md [facility] Final R esult MEDINFORMATIX TO EPIC CONVERSION * COMPREHENSIVE METABOLIC PANEL (10/13/2014 12:00 AM CDT) SODIUM S/P/B 145 135 - 146 meq/l MEDINFORMATIX TO EPIC CONVERSION POTASSIUM S/P/B 3.7 3.5 - 5.3 meq/l MEDINFORMATIX TO EPIC CONVERSION CHLORIDE S/P/B 105 95 - 108 meq/l MEDINFORMATIX TO EPIC CONVERSION CO2 29 17 - 31 meq/l MEDINFORMATIX TO EPIC CONVERSION GLUCOSE 102 70 - 125 mg/dl MEDINFORMATIX TO EPIC CONVERSION BUN 24 7 - 25 mg/dl MEDINFORMATIX TO EPIC CONVERSION CREATININE S/P/B 1.12 0.5 - 1.4 mg/dl MEDINFORMATIX TO EPIC CONVERSION CALCIUM S/P/B 8.9 8.5 - 10.3 mg/dl MEDINFORMATIX TO EPIC CONVERSION BILIRUBIN TOTAL S/P/B 0.63 0.0 - 1.3 mg/dl MEDINFORMATIX TO EPIC CONVERSION ALK PHOS 80 20 - 125 u/l MEDINFORMATIX TO EPIC CONVERSION AST 24 0 - 42 u/l MEDINFORM ATIX TO EPIC CONVERSION ALT 20 0 - 48 u/l MEDINFORM ATIX TO EPIC CONVERSION TOTAL PROTEIN S/P/B 7.2 6.0 - 8.5 g/dl MEDINFORMATIX TO EPIC CONVERSION EGFR NON-AFR. AMER. 50 >60 ml/min/1.7 3 sq.m MEDINFORMATIX TO EPIC CONVERSION 10/13/2014 10/13/2014 Narrative MEDINFORMATIX TO EPIC CONVERSION - 10/13/2014 12:12 PM CDT Reviewed by ONI Mendez ??4 2014 12:14:57:000PM us Generic Conversion Md [facility] Final R esult MEDINFORMATIX TO EPIC CONVERSION * CBC,CONVERSION (10/13/2014 12:00 AM CDT) WBC 4.8 3.8 - 10.8 thous/mcl MEDINFORMATIX TO EPIC CONVERSION RBC 4.27 3.90 - 5.20 mill/mcl MEDINFORMATIX TO EPIC CONVERSION HGB 12.9 12.0 - 15.6 g/dl MEDINFORMATIX TO EPIC CONVERSION HCT 39.0 35.0 - 46.0 % MEDINFORMATIX TO EPIC CONVERSION MCV 91 80.0 - 100.0 FL MEDINFORMATIX TO EPIC CONVERSION MCH 30.2 27.0 - 33.0 PG MEDINFORMATIX TO EPIC CONVERSION MCHC 33.1 32.0 - 36.0 % MEDINFORMATIX TO EPIC CONVERSION RDW 13.7 9.0 - 15.0 % MEDINFORMATIX TO EPIC CONVERSION PLATELET COUNT 185 130 - 400 thous/mcl MEDINFORMATIX TO EPIC CONVERSION 10/13/2014 10/13/2014 Narrative MEDINFORMATIX TO EPIC CONVERSION - 10/13/2014 10:32 AM CDT Reviewed by KATIEPayoffTE Sep ??4 2014 10:32:15:000AM us Generic Conversion Md [facility] Final R esult MEDINFORMATIX TO EPIC CONVERSION * THYROID PANEL (10/13/2014 12:00 AM CDT) TSH 1.66 0.4 - 5.5 micro IU/ml MEDINFORMATIX TO EPIC CONVERSION 10/13/2014 10/13/2014 Narrative MEDINFORMATIX TO EPIC CONVERSION - 10/13/2014 12:12 PM CDT Reviewed by [email or web address] Sep ??4 2014 12:14:57:000PM us Generic Conversion Md [facility] Final R esult MEDINFORMATIX TO EPIC CONVERSION documented in this encounter Visit Diagnoses Not on filedocumented in this encounter
--- OUTSIDE RECORDS SUMMARY | 2024-01-27 08:01 | XMS_ITS | Encounter Summary ---
Author Organization [facility] Address [address] [place] [address] [place] [address] Care Team Providers Care Curriculum Coordinator Name Role Phone Unavailable Primary Care Provider Unavailabl e Encounter Details Date Type Department Care Team (Late Contact Info) Description 11/14/2014 Scan [facility] [address] [place] [address] Milagro Guan MD Social History [...] (Late Contact Info) Description 02/15/2024 1:30 PM GREEN LUMBER GRADER Office Visit [facility] ld [address] [place] [address] Tyrell Leiva, PA-C [address] [place] [address] 02/15/2024 1:30 PM GREEN LUMBER GRADER Allied Health/Nurse [facility] [address] [place] [address] Mary Barber MD [address] [place] [address] 03/15/2024 11:15 AM GREEN LUMBER GRADER Office Visit [facility] [address] [place] [address] Jim Tamez MD [address] [place], [place] [address] 05/16/2024 1:15 AM CDT Allied Health/Nurse Visit [facility] [address] [place] [address] aMry Barber MD [address] [place] [address] 09/07/2024 9:00 AM CDT Office Visit [facility] [address] [place] [address] Tiffany Badillo MD [address] [place], [place] [address] documented as of this encounter Visit Diagnoses Not on filedocumented in this encounter
--- OUTSIDE RECORDS SUMMARY | 2024-01-27 08:01 | XMS_ITS | Encounter Summary ---
Author Organization [facility] Address [address] [facility] [place] [address] [place] [address] Care Team Providers Care Psychology Instructor Name Role Phone Unavailable Primary Care Provider Unavailabl e Encounter Details Date Type Department Care Team (Late Contact Info) Description 02/07/2014 Scan [facility] [address] [place] [address] Milagro Guan MD Social History [...] (Late Contact Info) Description 02/15/2024 1:30 PM THREAD WINDER Office Visit [facility] [address] [place] [address] Tyrell Leiva, PA-C [address] [place] [address] 02/15/2024 1:30 PM THREAD WINDER Allied Health/N[facility] [address] [place] [address] Mary Barber MD [address] [place] [address] 03/15/2024 11:15 AM THREAD WINDER Office Visit [facility] [address] [place] [address] Jim Tamez MD [address] [place], [place] [address] 05/16/2024 1:15 AM CDT Allied Health/Nurse Visit [facility] [address] [place] [address] Mary Barber MD [address] [place] [address] 09/07/2024 9:00 AM CDT Office Visit [facility] [address] [place] [address] Tiffany Badillo MD [address] [place], [place] [address] documented as of this encounter Visit Diagnoses Not on filedocumented in this encounter
--- OUTSIDE RECORDS SUMMARY | 2024-01-27 08:01 | XMS_ITS | Encounter Summary ---
Author Organization [facility] Address [address] [place] [address] [place] [address] Care Team Providers Care Paper Finisher Name Role Phone Mary Barber MD Unavailable Thomas Brian MD Unavailable Unavailable Josey Schwartz [facility] Unavailable [phone] Encounter Details Date Type Department Care Team (Late st Contact Info) Description 06/24/2014 Abstract [facility] [address] [place] [address] Jeremy Sim MD [address] [facility] [address] [place] [address] Social History Tobacco Use Types Packs/Day Years [...] st Contact Info) Description 02/15/2024 1:30 PM CIVILIAN TECHNICIAN Office Visit [facility] [address] [place] [address] Tyrell Leiva PA-C [address] [place] [address] 02/15/2024 1:30 PM CIVILIAN TECHNICIAN Allied [facility] [address] [place] [address] Mary Barber MD [address] [place] [address] 03/15/2024 11:15 AM CIVILIAN TECHNICIAN Office Visit [facility] [address] [place] [address] Jim Tamez MD [address] [place] [address] 05/16/2024 1:15 AM CDT Allied Health/Nurse Visit [facility] [address] [place] [address] Mary Barber MD [address] [place] [address] 09/07/2024 9:00 AM CDT Office Visit [address] [place] [address] Tiffany Badillo MD [address] [place] [address] documented as of this encounter Visit Diagnoses Diagnosis Other complications of other bariatric procedure documented in this encounter Care Teams Paper Finisher Relationship Specialty Start Date End Date Mary Barber MD [address] [place] [address] EP New Account Interviewer CLINICAL CARDIAC ELECTROPHYSIOLOGY 09/15/16 Thomas Brian MD [address] [place] [address] CARDIOVASCULAR DISEASE 09/16/16 04/12/19 Josey Schwartz [facility] [address] [facility] [address] [place] [address] Nurse Practitioner Electrophysiology 09/18/16 12/22/19 documented as of this encounter
--- OUTSIDE RECORDS SUMMARY | 2024-01-27 08:01 | XMS_ITS | Encounter Summary ---
Author Organization [facility] Address [address] [place] [address] [place] [address] Care Team Providers Care Lamps Tester And Inspector Name Role Phone Unavailable Primary Care Provider Unavailabl e Encounter Details Date Type Department Care Team (Late Contact Info) Description 11/14/2014 Abstract [facility] [address] [place] [address] Milagro Cordero MD Social History [...] (Late Contact Info) Description 02/15/2024 1:30 PM GEAR TOOTH GRINDING MACHINE OPERATOR [facility] [address] [place] [address] Tyrell Leiva, PA-C [address] [place] [address] 02/15/2024 1:30 PM GEAR TOOTH GRINDING MACHINE OPERATOR Allied Health/Nurse Visit [facility] [address] [place] [address] Mary Barber MD [address] [place] [address] 03/15/2024 11:15 AM GEAR TOOTH GRINDING MACHINE OPERATOR Office Visit [facility] [address] [place] [address] Jim Tamez MD [address] [place] [address] 05/16/2024 1:15 AM CDT Allied Health/Nurse Visit [facility] [address] [place] [address] Mary Barber MD [address] [place] [address] 09/07/2024 9:00 AM CDT Office Visit [address] [place] [address] Tiffany Badillo MD [address] [place], [place] [address] [phone] documented as of this encounter Procedures Procedure Name Priority Date/Time Associated Diagnosis Comments EXTERNAL EJECTION FRACTION Routine 11/14/2014 12:00 AM CDT documented in this encounter Results * EXTERNAL EJECTION FRACTION (11/14/2014 12:00 AM CDT) EJECTION FRACTION 53 [address] [place] INTERFACE Comment:LV size is normal. L V ejection fraction 53%. Mild septal hypokinesis noted. Normal RV systolic function. Anatomical Region Laterality Modality Other 11/14/2014 11/14/2014 Narrative 11/14/2014 12:00 AM CDT MUGA, us Generic Conversion Md [facility] OTHER Final R esult documented in this encounter Visit Diagnoses Not on filedocumented in this encounter
--- OUTSIDE RECORDS SUMMARY | 2024-01-27 08:01 | XMS_ITS | Encounter Summary ---
Author Organization [facility] Address [address] [place] [address] [place] [address] Care Team Providers Care Slot Key Person Name Role Phone Unavailable Primary Care Provider Unavailabl e Encounter Details Date Type Department Care Team (Late Contact Info) Description 10/17/2014 Abstract [facility] [address] [place] [address] Milagro Guan MD Social History [...] (Late Contact Info) Description 02/15/2024 1:30 PM CORPORATE AFFAIRS MANAGER [facility] [address] [place] [address] Tyrell Leiva, PA-C [address] [place] [address] 02/15/2024 1:30 PM CORPORATE AFFAIRS MANAGER Allied Health/Nurse Visit [facility] [address] [place] [address] Mary Barber MD [address] [place] [address] 03/15/2024 11:15 AM CORPORATE AFFAIRS MANAGER Office Visit [facility] [address] [place] [address] Jim Tamez MD [address] [place], [place] [address] 05/16/2024 1:15 AM CDT Allied Health/Nurse Visit [facility] [address] [place] [address] Mary Barber MD [address] [place] [address] 09/07/2024 9:00 AM CDT Office Visit [facility] [address] [place] [address] Tiffany Badillo MD [address] [place], [place] [address] documented as of this encounter Visit Diagnoses Not on filedocumented in this encounter
--- OUTSIDE RECORDS SUMMARY | 2024-01-27 08:01 | XMS_ITS | Encounter Summary ---
Author Organization [facility] Address [address] [facility] [place] [address] [place] [address] Care Team Providers Care Desktop Analyst Name Role Phone Mary Barber MD Unavailable Thomas Brian MD Unavailable Unavailable [facility] Schwartz [facility] Unavailable [phone] Encounter Details Date Type Department Care Team (Late st Contact Info) Description 11/14/2014 Abstract [facility] - [facility] [address] [place] [address] Jarrett Orozco MD Social History Tobacco Use Types Packs/Day [...] st Contact Info) Description 02/15/2024 1:30 PM CODING QUALITY ANALYST Office Visit [facility] [address] [place] [address] Tyrell Leiva PA-C [address] [place] [address] 02/15/2024 1:30 PM CODING QUALITY ANALYST Allied Health/Nurse Visit [facility] [address] [place] [address] Mary Barber MD [address] [place] [address] 03/15/2024 11:15 AM CODING QUALITY ANALYST Office Visit [facility] [address] [place] [address] Jmi Tamez MD [address] [place], [place] [address] 05/16/2024 1:15 AM CDT Allied Health/Nurse Visit [facility] [address] [place] [address] Mary Barber MD [address] [place] [address] 09/07/2024 9:00 AM CDT Office Visit [address] [place] [address] Tiffany Badillo MD [address] [place], [place] [address] documented as of this encounter Visit Diagnoses Diagnosis Other cardiomyopathies (CODE) ([facility]) documented in this encounter Care Teams Desktop Analyst Relationship Specialty Start Date End Date Mary Barber MD [address] [place] [phone] EP Pressure Tester Operator CLINICAL CARDIAC ELECTROPHYSIOLOGY 09/15/16 Thomas Brian MD [address] [place] [address] CARDIOVASCULAR DISEASE 09/16/16 04/12/19 Josey Schwartz AGACNP- [address] [place] [address] [place] [address] Nurse Practitioner Electrophysiology 09/18/16 12/22/19 documented as of this encounter
--- OUTSIDE RECORDS SUMMARY | 2024-01-27 08:01 | XMS_ITS | Encounter Summary ---
Author Organization [facility] Address [address] [facility] [place] [address] [place] [address] Care Team Providers Care Branch Service Leader Name Role Phone Unavailable Primary Care Provider Unavailabl e Encounter Details Date Type Department Care Team (Late Contact Info) Description 10/11/2014 [facility] [address] [phone] Milagro Guan MD Social History Tobacco Use [...] st Contact Info) Description 02/15/2024 1:30 PM SCHEDULING SPECIALIST [facility] [address] [place] [address] Tyrell Leiva, PAHaylieC [address] [place] [address] 02/15/2024 1:30 PM SCHEDULING SPECIALIST Allied Health/Nurse [facility] [address] [place] [address] Mary Barber MD [address] [place] [address] 03/15/2024 11:15 AM SCHEDULING SPECIALIST Office Visit [facility] [address] [place] [address] Jim Tamez MD [address] [place], [place] [address] 05/16/2024 1:15 AM CDT Allied Health/Nurse Visit [facility] [address] [place] [address] Mary Barber MD [address] [place] [address] 09/07/2024 9:00 AM CDT Office Visit [facility] [address] [place] [address] Tiffany Badillo MD [address] [place], [place] [address] documented as of this encounter Visit Diagnoses Not on filedocumented in this encounter
--- OUTSIDE RECORDS SUMMARY | 2024-01-27 08:01 | XMS_ITS | Encounter Summary ---
Author Organization [facility] Address [address] [facility] [place] [address] [place] [address] Care Team Providers Care Sports Psychologist Name Role Phone Unavailable Primary Care Provider Unavailabl e Encounter Details Date Type Department Care Team (Late Contact Info) Description 10/18/2014 Scan [facility] [address] [place] [address] Milagro Guan MD Social History [...] (Late Contact Info) Description 02/15/2024 1:30 PM DETENTION SERGEANT Office Visit [facility] ld [address] [place] [address] Tyrell Leiva, PA-C [address] [place] [address] 02/15/2024 1:30 PM DETENTION SERGEANT Allied Health/Nurse [facility] [address] [place] [address] Mary Barber MD [address] [place] [address] 03/15/2024 11:15 AM DETENTION SERGEANT Office Visit [facility] [address] [place] [address] Jim Tamez MD [address] [place], [place] [address] 05/16/2024 1:15 AM CDT Allied Health/Nurse Visit [facility] [address] [place] [address] Mary Barber MD [address] [place] [address] 09/07/2024 9:00 AM CDT Office Visit [facility] [address] [place] [address] Tiffany Badillo MD [address] [place], [place] [address] documented as of this encounter Visit Diagnoses Not on filedocumented in this encounter
--- OUTSIDE RECORDS SUMMARY | 2024-01-27 08:02 | XMS_ITS | Encounter Summary ---
Author Organization [facility] Address [address] [facility] [place] [address] [place] [address] Care Team Providers Care Residential Interior Designer Name Role Phone Unavailable Primary Care Provider Unavailabl e Encounter Details Date Type Department Care Team (Late Contact Info) Description 02/07/2014 Abstract [facility] [address] [place] [address] Milagro Cordero MD Social History [...] (Late Contact Info) Description 02/15/2024 1:30 PM EVENT DECORATOR Office Visit [facility] [address] [place] [address] Tyrell Leiva, PA-C [address] [place] [address] 02/15/2024 1:30 PM EVENT DECORATOR Allied Health/Nurse Visit [facility] [address] [place] [address] Mary Barber MD [address] [place] [address] 03/15/2024 11:15 AM EVENT DECORATOR Office Visit [facility] [place] [address] Jim Tamez MD [address] [place] [address] 05/16/2024 1:15 AM CDT Allied Health/Nurse Visit [facility] [address] [place] [address] Mary Barber MD [address] [place] [address] 09/07/2024 9:00 AM CDT Office Visit [address] [place] [address] Tiffany Badillo MD [address] [place], [place] [address] [phone] documented as of this encounter Procedures Procedure Name Priority Date/Time Associated Diagnosis Comments LIPID PANEL Routine 02/07/2014 12:00 AM EVENT DECORATOR documented in this encounter Results * LIPID PANEL (02/07/2014 12:00 AM EVENT DECORATOR) TRIGLYCERIDES 54 0 - 150 mg/dl MEDINFORMAT[facility] TO EPIC CONVERSION CHOLESTEROL 120 0 - 200 mg/dl MEDIN[facility] TO EPIC CONVERSION HDL 51 40 - 59 mg/dl MEDIN[facility] TO EPIC CONVERSION LDL CONVERSION 58 0 - 100 mg/dl MED[facility] TO EPIC CONVERSION DIRECT LDL 58 0 - 100 mg/dL [facility] TO EPIC CONVERSION 02/07/2014 02/07/2014 Narrative MEDIN[facility] TO EPIC CONVERSION - 02/07/2014 3:54 PM EVENT DECORATOR Reviewed by MYNOR Feb 07 2014 ??3:54:23:000PM us Generic Conversion Md [facility] Final R esult [facility] CONVERSION documented in this encounter Visit Diagnoses Not on filedocumented in this encounter
--- OUTSIDE RECORDS SUMMARY | 2024-01-27 08:02 | XMS_ITS | Encounter Summary ---
Author Organization [facility] Address [address] [facility] [place] [address] [place] [address] Care Team Providers Care E Commerce Web Developer Name Role Phone Mary Barber MD Unavailable Thomas Brian MD Unavailable Unavailable Josey Schwartz [facility] Unavailable [phone] Encounter Details Date Type Department Care Team (Late Contact Info) Description 01/03/2014 Abstract [facility]ascular Ultras[facility] [address] [place] [address] Jarrett Orozco MD Social History Tobacco Use [...] st Contact Info) Description 02/15/2024 1:30 PM ELECTRIC ARC FURNACE OPERATOR [facility] [address] [place] [address] Tyrell Leiva PA-C [address] [place] [address] 02/15/2024 1:30 PM ELECTRIC ARC FURNACE OPERATOR Allied Health/Nurse Visit [facility] [address] [place] [address] Mary Barber MD [address] [place] [address] 03/15/2024 11:15 AM ELECTRIC ARC FURNACE OPERATOR Office Visit [facility] [address] [place] [address] Jim Tamez MD [address] [place], [place] [address] 05/16/2024 1:15 AM CDT Allied Health/Nurse Visit [facility] [address] [place] [address] Mary Barber MD [address] [place] [address] 09/07/2024 9:00 AM CDT Office Visit [address] [place] [address] Tiffany Badillo MD [address] [place], [place] [address] documented as of this encounter Visit Diagnoses Diagnosis Transient cerebral ischemia Unspecified transient cerebral ischemia documented in this encounter Care Teams E Commerce Web Developer Relationship Specialty Start Date End Date Mary Barber MD [address] [place] [phone] EP Experimental Technician CLINICAL CARDIAC ELECTROPHYSIOLOGY 09/15/16 Thomas Brian MD [address] [place] [phone] CARDIOVASCULAR DISEASE 09/16/16 04/12/19 Josey Schwartz [facility] [address] [facility] MAILBOX [address] [place] [id number] Nurse Practitioner Electrophysiology 09/18/16 12/22/19 documented as of this encounter
--- OUTSIDE RECORDS SUMMARY | 2024-01-27 08:02 | XMS_ITS | Encounter Summary ---
Author Organization [facility] Address [address] [facility] [place] [address] [place] [address] Care Team Providers Care Candles Pourer Name Role Phone Unavailable Primary Care Provider Unavailabl e Encounter Details Date Type Department Care Team (Late Contact Info) Description 12/29/2013 Scan [facility] [address] [place] [address] Milagro Guan MD Social History [...] (Late Contact Info) Description 02/15/2024 1:30 PM YARD HAND Office Visit [facility] ld [address] [place] [address] Tyrell Leiva, PA-C [address] [place] [address] 02/15/2024 1:30 PM YARD HAND Allied Health/Nurse Visit [facility] [address] [place] [address] Mary Barber MD [address] [place] [address] 03/15/2024 11:15 AM YARD HAND Office Visit [facility] [address] [place] [address] Jim Tamez MD [address] [place], [place] [address] 05/16/2024 1:15 AM CDT Allied Health/Nurse Visit [facility] [address] [place] [address] Mary Barber MD [address] [place] [address] 09/07/2024 9:00 AM CDT Office Visit [facility] [address] [place] [address] Tiffany Badillo MD [address] [place], [place] [address] documented as of this encounter Visit Diagnoses Not on filedocumented in this encounter
--- OUTSIDE RECORDS SUMMARY | 2024-01-27 08:02 | XMS_ITS | Encounter Summary ---
Author Organization [facility] Address [address] [facility] [place] [address] [place] [address] Care Team Providers Care Acct Exec Name Role Phone Unavailable Primary Care Provider Unavailabl e Encounter Details Date Type Department Care Team (Late Contact Info) Description 02/06/2014 Abstract [facility] [address] [place] [address] Milagro Guan MD Social History Tobacco Use [...] (Late Contact Info) Description 02/15/2024 1:30 PM CHIEF AIRLINE RADIO OPERATOR [facility] [address] [place] [address] Tyrell Leiva, PA-C [address] [place] [address] 02/15/2024 1:30 PM CHIEF AIRLINE RADIO OPERATOR Allied Health/Nurse Visit [facility] [address] [place] [address] Mary Barber MD [address] [place] [address] 03/15/2024 11:15 AM CHIEF AIRLINE RADIO OPERATOR Office Visit [facility] [address] [place] [address] Jim Tamez MD [address] [place], [place] [address] 05/16/2024 1:15 AM CDT Allied Health/Nurse Visit [facility] [address] [place] [address] Mary Barber MD [address] [place] [address] 09/07/2024 9:00 AM CDT Office Visit [facility] [address] [place] [address] Tiffany Badillo MD [address] [place], [place] [address]508[address] documented as of this encounter Visit Diagnoses Not on filedocumented in this encounter
--- OUTSIDE RECORDS SUMMARY | 2024-01-27 08:02 | XMS_ITS | Encounter Summary ---
Author Organization [facility] Address [address] [facility] [place] [address] [place] [address] Care Team Providers Care Senior Product Analyst Name Role Phone Unavailable Primary Care Provider Unavailabl e Encounter Details Date Type Department Care Team (Late Contact Info) Description 01/03/2014 Scan [facility] [address] [place] [address] Milagro Guan MD Social History [...] (Late Contact Info) Description 02/15/2024 1:30 PM FAITH HEALER Office Visit [facility] ld [address] [place] [address] Tyrell Leiva, PA-C [address] [place] [address] 02/15/2024 1:30 PM FAITH HEALER Allied Health/Nurse [facility] [address] [place] [address] Mary Barber MD [address] [place] [address] 03/15/2024 11:15 AM FAITH HEALER Office Visit [facility] [address] [place] [address] Jim Tamez MD [address] [place], [place] [address] 05/16/2024 1:15 AM CDT Allied Health/Nurse Visit [facility] [address] [place] [address] Mary Barber MD [address] [place] [address] 09/07/2024 9:00 AM CDT Office Visit [facility] [address] [place] [address] Tiffany Badillo MD [address] [place], [place] [address] documented as of this encounter Visit Diagnoses Not on filedocumented in this encounter
--- OUTSIDE RECORDS SUMMARY | 2024-01-27 08:02 | XMS_ITS | Encounter Summary ---
Author Organization [facility] Address [address] [facility] [place] [address] [place] [address] Care Team Providers Care Commercial Pest Control Representative Name Role Phone Mary Barber MD Unavailable Thomas Brian MD Unavailable Unavailable Josey Schwartz [facility] Unavailable [phone] Encounter Details Date Type Department Care Team (Late Contact Info) Description 01/03/2014 Abstract [facility] - [facility] [address] [place] [address] Thomas Brian MD Social History Tobacco Use [...] st Contact Info) Description 02/15/2024 1:30 PM LATIN PROFESSOR Office Visit [facility] [address] [place] [address] Tyrell Leiva, PA-C [address] [place] [address] 02/15/2024 1:30 PM LATIN PROFESSOR Allied Health/Nurse Visit [facility] ld [address] [place] [address] Mary Barber MD [address] [place] [address] 03/15/2024 11:15 AM LATIN PROFESSOR Office Visit [facility] [address] [facility] [place] [address] iJm Tamez MD [address] [place], [place] [address] 05/16/2024 1:15 AM CDT Allied Health/Nurse Visit [facility] [address] [place] [address] Mary Barber MD [address] [place] [address] 09/07/2024 9:00 AM CDT Office Visit [facility] [address] [place] [address] Tiffany Badillo MD [address] [place], [place] 39[address] documented as of this encounter Visit Diagnoses Diagnosis Personal history of transient ischemic attack (TIA) and cerebral infarction without residual deficit Transient ischemic attack (TIA), and cerebral infarction without residual deficits documented in this encounter Care Teams Commercial Pest Control Representative Relationship Specialty Start Date End Date Mary Barber MD [address] [place] [address] EP Book Retailer CLINICAL CARDIAC ELECTROPHYSIOLOGY 09/15/16 Thomas Brian MD [address] [place] [address] CARDIOVASCULAR DISEASE 09/16/16 04/12/19 Josey Schwartz [facility] [address] [place] [address] [place] [id number] Nurse Practitioner Electrophysiology 09/18/16 12/22/19 documented as of this encounter
--- OUTSIDE RECORDS SUMMARY | 2024-01-27 08:02 | XMS_ITS | Encounter Summary ---
Author Organization [facility] Address [address] [facility] [place] [address] [place] [address] Care Team Providers Care Hospital Aide Name Role Phone Unavailable Primary Care Provider Unavailabl e Encounter Details Date Type Department Care Team (Late Contact Info) Description 01/03/2014 Abstract [facility] [address] [place] [address] Milagro oCrdero MD Social History Tobacco Use Types Packs/Day [...] (Late Contact Info) Description 02/15/2024 1:30 PM RESPITE CARE PROVIDER [facility] [address] [place] [address] Tyrell Leiva, PA-C [address] [place] [address] 02/15/2024 1:30 PM RESPITE CARE PROVIDER Allied Health/Nurse Visit [facility] [address] [place] [address] Mary Barber MD [address] [place] [address] 03/15/2024 11:15 AM RESPITE CARE PROVIDER [facility] [place] [address] Jim Tamez MD [address] [place] [address] 05/16/2024 1:15 AM CDT Allied Health/Nurse Visit [facility] [address] [place] [address] Mary Barber MD [address] [place] [address] 09/07/2024 9:00 AM CDT Office Visit [address] [place] [address] Tiffany Badillo MD [address] [place], [place] 615[address] [phone] documented as of this encounter Procedures Procedure Name Priority Date/Time Associated Diagnosis Comments EXTERNAL EJECTION FRACTION Routine 01/03/2014 12:00 AM RESPITE CARE PROVIDER documented in this encounter Results * EXTERNAL EJECTION FRACTION (01/03/2014 12:00 AM RESPITE CARE PROVIDER) [facility] Signature EJECTION FRACTION 35-40 [facility] Comment: The left ventricular size is normal. The left ventricular systolic function is mild to moderatelydepressed. Estimated left ventricular ejection fraction is 35-40%. The right ventricular size is normal. Right ventricular systolic function is moderately depressed. The left atrial size is moderately to severely enlarged. Left atrial appendage has been ligated with lariat device. Nothrombus visualized in the LA, RA, IAS. ??Right atrial size is moderately enlarged. The agitated saline injection showed evidence of shunting into theleft atrium, consistent with a very small patent foramen ovale. The aorta is atherosclerotic with prominent atheroma in the aorticarch (Clip 39) Mild mitral regurgitation. Anatomical Region Laterality Modality Other 01/03/2014 01/03/2014 Narrative 01/03/2014 12:00 AM RESPITE CARE PROVIDER TRACI, us Generic Conversion Md [facility] OTHER Final R esult documented in this encounter Visit Diagnoses Not on filedocumented in this encounter
--- OUTSIDE RECORDS SUMMARY | 2024-01-27 08:03 | XMS_ITS | Encounter Summary ---
Author Organization [facility] Address [address] [facility] [place] [address] [place] [address] Care Team Providers Care Flight Service Specialist Name Role Phone Unavailable Primary Care Provider Unavailabl e Encounter Details Date Type Department Care Team (Late Contact Info) Description 09/14/2013 Abstract [facility] [address] [phone] Milagro Guan MD Social History Tobacco Use [...] st Contact Info) Description 02/15/2024 1:30 PM STRATEGIC ACCOUNTS MANAGER Office Visit [facility] [address] [place] [address] Tyrell Leiva, PAHaylieC [address] [place] [address] 02/15/2024 1:30 PM STRATEGIC ACCOUNTS MANAGER Allied Health/Nurse Visit [facility] [address] [place] [address] Mary Barber MD [address] [place] [address] 03/15/2024 11:15 AM STRATEGIC ACCOUNTS MANAGER Office Visit [facility] [address] [place] [address] Jim Tamez MD [address] [place], [place] [address] 05/16/2024 1:15 AM CDT Allied Health/Nurse Visit [facility] [address] [place] [address] Mary Barber MD [address] [place] [address] 09/07/2024 9:00 AM CDT Office Visit [facility] [address] [place] [address] Tiffany Badillo MD [address] [place], [place] [address] documented as of this encounter Visit Diagnoses Not on filedocumented in this encounter
--- OUTSIDE RECORDS SUMMARY | 2024-01-27 08:03 | XMS_ITS | Encounter Summary ---
Author Organization [facility] Address [address] [facility] [place] [address] [place] [address] Care Team Providers Care Acid Treater Name Role Phone Unavailable Primary Care Provider Unavailabl e Encounter Details Date Type Department Care Team (Late Contact Info) Description 09/14/2013 Scan [facility] [address] [place] [address] Milagro Guan MD Social History [...] (Late Contact Info) Description 02/15/2024 1:30 PM ESCORT PATIENTS Office Visit [facility] ld [address] [place] [address] Tyrell Leiva, PA-C [address] [place] [address] 02/15/2024 1:30 PM ESCORT PATIENTS Allied Health/Nurse Visit [facility] [address] [place] [address] Mary Barber MD [address] [place] [address] 03/15/2024 11:15 AM ESCORT PATIENTS Office Visit [facility] [address] [place] [address] Jim Tamez MD [address] [place], [place] [address] 05/16/2024 1:15 AM CDT Allied Health/Nurse Visit [facility] [address] [place] [address] Mary Barber MD [address] [place] [address] 09/07/2024 9:00 AM CDT Office Visit [facility] [address] [place] [address] Tiffany Badillo MD [address] [place], [place] [address] documented as of this encounter Visit Diagnoses Not on filedocumented in this encounter
--- OUTSIDE RECORDS SUMMARY | 2024-01-27 08:03 | XMS_ITS | Encounter Summary ---
Author Organization [facility] Address [address] [facility] [place] [address] [place] [address] Care Team Providers Care Amusement Or Recreation Card Checker Name Role Phone Unavailable Primary Care Provider Unavailabl e Encounter Details Date Type Department Care Team (Late Contact Info) Description 10/21/2013 Abstract [facility] [address] [place] [address] Milagro Guan MD Social History [...] (Late Contact Info) Description 02/15/2024 1:30 PM FORM CARPENTER [facility] [address] [place] [address] Tyrell Leiva, PA-C [address] [place] [address] 02/15/2024 1:30 PM FORM CARPENTER Allied Health/Nurse [facility] [address] [place] [address] Mary Barber MD [address] [place] [address] 03/15/2024 11:15 AM FORM CARPENTER Office Visit [facility] [address] [place] [address] Jim Tamez MD [address] [place], [place] [address] 05/16/2024 1:15 AM CDT Allied Health/Nurse Visit [facility] [address] [place] [address] Mary Barber MD [address] [place] [address] 09/07/2024 9:00 AM CDT Office Visit [facility] [address] [place] [address] Tiffany Badillo MD [address] [place], [place] [address] documented as of this encounter Visit Diagnoses Not on filedocumented in this encounter
--- OUTSIDE RECORDS SUMMARY | 2024-01-27 08:03 | XMS_ITS | Encounter Summary ---
Author Organization [facility] Address [address] [facility] [place] [address] [place] [address] Care Team Providers Care Correction Officer Head Name Role Phone Unavailable Primary Care Provider Unavailabl e Encounter Details Date Type Department Care Team (Late Contact Info) Description 10/27/2013 Scan [facility] [address] [place] [address] Milagro Guan MD Social History [...] (Late Contact Info) Description 02/15/2024 1:30 PM HOSPITALIST PROGRAM DIRECTOR Office Visit [facility] ld [address] [place] [address] Tyrell Leiva, PA-C [address] [place] [address] 02/15/2024 1:30 PM HOSPITALIST PROGRAM DIRECTOR Allied Health/Nurse Visit [facility] [address] [place] [address] Mary Barber MD [address] [place] [address] 03/15/2024 11:15 AM HOSPITALIST PROGRAM DIRECTOR Office Visit [facility] [address] [place] [address] Jim Tamez MD [address] [place], [place] [address] 05/16/2024 1:15 AM CDT Allied Health/Nurse Visit [facility] [address] [place] [address] Mary Barber MD [address] [place] [address] 09/07/2024 9:00 AM CDT Office Visit [facility] [address] [place] [address] Tiffany Badillo MD [address] [place], [place] [address] documented as of this encounter Visit Diagnoses Not on filedocumented in this encounter
--- OUTSIDE RECORDS SUMMARY | 2024-01-27 08:03 | XMS_ITS | Encounter Summary ---
Author Organization [facility] Address [address] [facility] [place] [address] [place] [address] Care Team Providers Care Commercial Parts Professional Name Role Phone Unavailable Primary Care Provider Unavailabl e Encounter Details Date Type Department Care Team (Late Contact Info) Description 10/27/2013 Abstract [facility] [address] [place] [address] Milagro Guan MD Social History [...] (Late Contact Info) Description 02/15/2024 1:30 PM PUMP SERVICE SUPERVISOR [facility] [address] [place] [address] Tyrell Leiva, PA-C [address] [place] [address] 02/15/2024 1:30 PM PUMP SERVICE SUPERVISOR Allied Health/Nurse [facility] [address] [place] [address] Mary Barber MD [address] [place] [address] 03/15/2024 11:15 AM PUMP SERVICE SUPERVISOR Office Visit [facility] [address] [place] [address] Jim Tamez MD [address] [place], [place] [address]251 05/16/2024 1:15 AM CDT Allied Health/Nurse Visit [facility] [address] [place] [address] Mary Barber MD [address] [place] [address] 09/07/2024 9:00 AM CDT Office Visit [facility] [address] [place] [address] Tiffany Badillo MD [address] [place], [place] [address] documented as of this encounter Visit Diagnoses Not on filedocumented in this encounter
--- OUTSIDE RECORDS SUMMARY | 2024-01-27 08:03 | XMS_ITS | Encounter Summary ---
Author Organization [facility] Address [address] [facility] [place] [address] [place] [address] Care Team Providers Care Gravel Roofer Name Role Phone Unavailable Primary Care Provider Unavailabl e Encounter Details Date Type Department Care Team (Late Contact Info) Description 10/17/2013 Abstract [facility] [address] [place] [address] Milagro Cordero MD Social History [...] (Late Contact Info) Description 02/15/2024 1:30 PM OVERLOCK WAISTLINE JOINER Office Visit [facility] [address] [place] [address] Tyrell Leiva, PA-C [address] [place] [address] 02/15/2024 1:30 PM OVERLOCK WAISTLINE JOINER Allied Health/Nurse Visit [facility] [address] [place] [address] Mary Barber MD [address] [place] [address] 03/15/2024 11:15 AM OVERLOCK WAISTLINE JOINER Office Visit [facility] [address] [place] [address] Jim Tamez MD [address] [place] [address] 05/16/2024 1:15 AM CDT Allied Health/Nurse Visit [facility] [address] [place] [address] Mary Barber MD [address] [place] [address] 09/07/2024 9:00 AM CDT Office Visit [address] [place] [address] Tiffany Badillo MD [address] [place], [place] 299141 [phone] documented as of this encounter Procedures Procedure Name Priority Date/Time Associated Diagnosis Comments PARTIAL THROMBOPLASTIN TIME,PTT Routine 10/17/2013 11:46 AM CDT PROTIME / PROTHROMBIN TIME Routine 10/17/2013 11:46 AM CDT MAGNESIUM Routine 10/17/2013 11:46 AM CDT documented in this encounter Results * PARTIAL THROMBOPLASTIN TIME,PTT (10/17/2013 11:46 AM CDT) PTT 30 22 - 35 sec MEDINFOR MATIX TO EPIC CONVERSION 10/17/2013 11:4 6 AM CDT 10/17/2013 11:46 AM CDT Narrative MEDINFORMATIX TO EPIC CONVERSION - 10/17/2013 12:45 PM CDT Reviewed by NATE Mendez ??8 2013 ??2:11:22:000PM us Generic Conversion Md [facility] Final R esult MEDINFORMATIX TO EPIC CONVERSION * PROTIME / PROTHROMBIN TIME (10/17/2013 11:46 AM CDT) PROTIME 12.6 11.6 - 14.3 sec MEDINFORMATIX TO EPIC CONVERSION INR 0.9 0.9 - 1.1 MEDINFORMA TIX TO EPIC CONVERSION 10/17/2013 11:4 6 AM CDT 10/17/2013 11:46 AM CDT Narrative MEDINFORMATIX TO EPIC CONVERSION - 10/17/2013 1:56 PM CDT Reviewed by NATE Sep ??8 2013 ??2:11:14:000PM us Generic Conversion Md [facility] Final R esult MEDINFORMATIX TO EPIC CONVERSION * MAGNESIUM (10/17/2013 11:46 AM CDT) MAGNESIUM 1.6 1.6 - 2.6 mg/dL MEDINFORMATIX TO EPIC CONVERSION 10/17/2013 11:4 6 AM CDT 10/17/2013 11:46 AM CDT Narrative MEDINFORMATIX TO EPIC CONVERSION - 10/17/2013 12:51 PM CDT Reviewed by NATE Sep ??8 2013 ??2:11:19:000PM us Generic Conversion Md [facility] Final R esult MEDINFORMATIX TO EPIC CONVERSION documented in this encounter Visit Diagnoses Not on filedocumented in this encounter
--- OUTSIDE RECORDS SUMMARY | 2024-01-27 08:03 | XMS_ITS | Encounter Summary ---
Author Organization [facility] Address [address] [facility] [place] [address] [place] [address] Care Team Providers Care Casting Machine Operator Name Role Phone Unavailable Primary Care Provider Unavailabl e Encounter Details Date Type Department Care Team (Late Contact Info) Description 11/24/2013 Scan [facility] [address] [place] [address] Milagro Guan MD Social History [...] (Late Contact Info) Description 02/15/2024 1:30 PM ADJUNCT FACULTY INSTRUCTOR Office Visit [facility] [address] [place] [address] Tyrell Leiva, PA-C [address] [place] [address] 02/15/2024 1:30 PM ADJUNCT FACULTY INSTRUCTOR Allied Health/Nurse [facility] [address] [place] [address] Mary Barber MD [address] [place] [address] 03/15/2024 11:15 AM ADJUNCT FACULTY INSTRUCTOR Office Visit [facility] [address] [place] [address] Jim Tamez MD [address] [place], [place] [address] 05/16/2024 1:15 AM CDT Allied Health/Nurse Visit [facility] [address] [place] [address] Mary Barber MD [address] [place] [address] 09/07/2024 9:00 AM CDT Office Visit [facility] [address] [place] [address] Tiffany Badillo MD [address] [place], [place] [address] documented as of this encounter Visit Diagnoses Not on filedocumented in this encounter
--- OUTSIDE RECORDS SUMMARY | 2024-01-27 08:03 | XMS_ITS | Encounter Summary ---
Author Organization [facility] Address [address] [facility] [place] [address] [place] [address] Care Team Providers Care Carbon Cutter Name Role Phone Unavailable Primary Care Provider Unavailabl e Encounter Details Date Type Department Care Team (Late Contact Info) Description 12/22/2013 Scan [facility] [address] [place] [address] Milagro Guan MD Social History [...] (Late Contact Info) Description 02/15/2024 1:30 PM HOME VISITS NURSE Office Visit [facility] [address] [place] [address] Tyrell Leiva, PA-C [address] [place] [address] 02/15/2024 1:30 PM HOME VISITS NURSE Allied Health/Nurse [facility] [address] [place] [address] Mary Barber MD [address] [place] [address] 03/15/2024 11:15 AM HOME VISITS NURSE Office Visit [facility] [address] [place] [address] Jim Tamez MD [address] [place], [place] [address]161 05/16/2024 1:15 AM CDT Allied Health/Nurse Visit [facility] [address] [place] [address] Mary Barber MD [address] [place] [address] 09/07/2024 9:00 AM CDT Office Visit [facility] [address] [place] [address] Tiffany Badillo MD [address] [place], [place] [address] documented as of this encounter Visit Diagnoses Not on filedocumented in this encounter
--- OUTSIDE RECORDS SUMMARY | 2024-01-27 08:03 | XMS_ITS | Encounter Summary ---
Author Organization [facility] Address [address] [facility] [place] [address] [place] [address] Care Team Providers Care Assistant Center Director Name Role Phone Unavailable Primary Care Provider Unavailabl e Encounter Details Date Type Department Care Team (Late Contact Info) Description 10/20/2013 Scan [facility] [address] [place] [address] Milagro Guan MD Social History [...] (Late Contact Info) Description 02/15/2024 1:30 PM EXPLOSIVES OPERATOR Office Visit [facility] [address] [place] [address] Tyrell Leiva, PA-C [address] [place] [address] 02/15/2024 1:30 PM EXPLOSIVES OPERATOR Allied Health/Nurse [facility] [address] [place] [address] Mary Barber MD [address] [place] [address] 03/15/2024 11:15 AM EXPLOSIVES OPERATOR Office Visit [facility] [address] [place] [address] Jim Tamez MD [address] [place], [place] [address] 05/16/2024 1:15 AM CDT Allied Health/Nurse Visit [facility] [address] [place] [address] Mary Barber MD [address] [place] [address] 09/07/2024 9:00 AM CDT Office Visit [facility] [address] [place] [address] Tiffany Badillo MD [address] [place], [place] [address] documented as of this encounter Visit Diagnoses Not on filedocumented in this encounter
--- OUTSIDE RECORDS SUMMARY | 2024-01-27 08:03 | XMS_ITS | Encounter Summary ---
Author Organization [facility] Address [address] [facility] [place] [address] [place] [address] Care Team Providers Care Electrical And Instrumentation Mechanic Name Role Phone Unavailable Primary Care Provider Unavailabl e Encounter Details Date Type Department Care Team (Late Contact Info) Description 10/17/2013 Scan [facility] [address] [place] [address] Milagro Guan MD Social History [...] (Late Contact Info) Description 02/15/2024 1:30 PM VASCULAR SONOGRAPHER Office Visit [facility] ld [address] [place] [address] Tyrell Leiva, PA-C [address] [place] [address] 02/15/2024 1:30 PM VASCULAR SONOGRAPHER Allied Health/Nurse Visit [facility] [address] [place] [address] Mary Barber MD [address] [place] [address] 03/15/2024 11:15 AM VASCULAR SONOGRAPHER Office Visit [facility] [address] [place] [address] Jim Tamez MD [address] [place], [place] [address] 05/16/2024 1:15 AM CDT Allied Health/Nurse Visit [facility] [address] [place] [address] Mary Barber MD [address] [place] [address] 09/07/2024 9:00 AM CDT Office Visit [facility] [address] [place] [address] Tiffany Badillo MD [address] [place], [place] [address] documented as of this encounter Visit Diagnoses Not on filedocumented in this encounter
--- OUTSIDE RECORDS SUMMARY | 2024-01-27 08:03 | XMS_ITS | Encounter Summary ---
Author Organization [facility] Address [address] [place] [address] [place] [address] Care Team Providers Care Salvager Name Role Phone Mary Barber MD Unavailable Thomas Brian MD Unavailable Unavailable [facility] Un[facility] [phone] Encounter Details Date Type Department Care Team (Late Contact Info) Description 11/12/2013 Abstract [facility] [address] [place] [address] Ilia Murrieta MD [address] [place] [address] Social History Tobacco Use Types Packs/Day Years [...] (Late Contact Info) Description 02/15/2024 1:30 PM VEHICLE UPHOLSTERER Office Visit [facility] [address] [place] [address] Tyrell Leiva PA-C [address] [place] [address] 02/15/2024 1:30 PM VEHICLE UPHOLSTERER Allied Health/Nurse Visit [facility] ld [address] [place] [address] Mary Barber MD [address] [place] [address] 03/15/2024 11:15 AM VEHICLE UPHOLSTERER Office Visit [address] [place] [address] Jim Tamez MD [address] [place] [address] 05/16/2024 1:15 AM CDT Allied Health/Nurse Visit [facility] ld [address] [place] [address] Mary Barber MD [address] [place] [address] 09/07/2024 9:00 AM CDT Office Visit [address] [place] [address] Tiffany Badillo MD [address] [place] [address] documented as of this encounter Visit Diagnoses Diagnosis Painful respiration documented in this encounter Care Teams Salvager Relationship Specialty Start Date End Date Mary Barber MD [address] [place] [phone] EP Lan Engineer CLINICAL CARDIAC ELECTROPHYSIOLOGY 09/15/16 Thomas Brian MD [address] [place] [address] CARDIOVASCULAR DISEASE 09/16/16 04/12/19 Josey Schwartz [facility] [address] [facility] MAILBOX [address] [place] [address] Nurse Practitioner Electrophysiology 09/18/16 12/22/19 documented as of this encounter
--- OUTSIDE RECORDS SUMMARY | 2024-01-27 08:03 | XMS_ITS | Encounter Summary ---
Author Organization [facility] Address [address] [facility] [place] [address] [place] [address] Care Team Providers Care Ballast Cleaning Machine Operator Name Role Phone Mary Barber MD Unavailable Thomas Brian MD Unavailable Unavailable Josey Schwartz [facility] Unavailable [phone] Encounter Details Date Type Department Care Team (Late st Contact Info) Description 10/17/2013 Abstract [facility] [address] [place] [address] Mary Barber MD [address] [place] [address] Social History Tobacco Use Types [...] st Contact Info) Description 02/15/2024 1:30 PM PYTHON DEVELOPER Office Visit [facility] [address] [place] [address] Tyrell Leiva PAHaylieC [address] [place] [address] 02/15/2024 1:30 PM PYTHON DEVELOPER Allied Health/Nurse Visit [facility] [address] [place] [address] Mary Barber MD [address] [place] [address] 03/15/2024 11:15 AM PYTHON DEVELOPER Office Visit [facility] [place] [address] Jim Tamez MD [address] [place] [address] 05/16/2024 1:15 AM CDT Allied Health/Nurse Visit [facility] [address] [place] [address] Mary Barber MD [address] [place] [address] 09/07/2024 9:00 AM CDT Office Visit [address] [place] [address] Tiffany Badillo MD [address] [place] [address] documented as of this encounter Visit Diagnoses Diagnosis Atrial fibrillation ([facility]) Atrial fibrillation documented in this encounter Care Teams Ballast Cleaning Machine Operator Relationship Specialty Start Date End Date Mary Barber MD [address] [place] [address] EP Human Resources Training Manager CLINICAL CARDIAC ELECTROPHYSIOLOGY 09/15/16 Thomas Brian MD [address] [place] [address] CARDIOVASCULAR DISEASE 09/16/16 04/12/19 Josey Schwartz AGACNP[facility]. [facility]. [facility] [address] [facility] MAILBOX [address] [place] [address] Nurse Practitioner Electrophysiology 09/18/16 12/22/19 documented as of this encounter
--- OUTSIDE RECORDS SUMMARY | 2024-01-27 08:03 | XMS_ITS | Encounter Summary ---
Author Organization [facility] Address [address] [facility] [place] [place] [address] [place] [address] Care Team Providers Care Ornamental Metal Erector Name Role Phone Mary Barber MD Unavailable Thomas Brian MD Unavailable Unavailable Josey Schwartz [facility] Unavailable [phone] Encounter Details Date Type Department Care Team (Late st Contact Info) Description 10/29/2013 Abstract [facility] [address] [place] [address] , Generic ConversionMD Social History Tobacco Use Types Packs/Day Years [...] Contact Info) Description 02/15/2024 1:30 PM CAR BLOCKER Office Visit [facility] ld [address] [place] [address] Tyrell Leiva PA-C [address] [place] [address] 02/15/2024 1:30 PM CAR BLOCKER Allied Health/Nurse Visit [facility] ld [address] [place] [address] Mary Barber MD [address] [place] [address] 03/15/2024 11:15 AM CAR BLOCKER Office Visit [facility] [address] [place] [address] Jim Tamez MD [address] [place], [place] [address] 05/16/2024 1:15 AM CDT Allied Health/Nurse Visit [facility] [address] [place] [address] Mary Barber MD [address] [place] [address] 09/07/2024 9:00 AM CDT Office Visit [facility] [address] [place] [address] Tiffany Badillo MD [address] [place], [place] [address] documented as of this encounter Procedures Procedure Name Priority Date/Time Associated Diagnosis Comments ECG 12-LEAD Routine 10/29/2013 5:47 AM CDT documented in this encounter Results * ECG 12 lead (10/29/2013 5:47 AM CDT) 10/29/2013 5:47 AM CDT Narrative [facility] RAD - 10/29/2013 6:31 AM CDT ? [facility] ? [address] [place], [place] ??[address] ? Test Date: ?2013-10-29 Pat Name: ? RAKAN SHAW ?Department: ?? 1 ? Room: ? 0504A Gender: ? F ?Race Engine Builder: ?? sb : ?1935 ? Requested By: TREVON CHEN Order Number: [id number] ? Reading MD: ?? Ramón Chilel ? Measurements Intervals ?[place] ? Rate: ? 95 ? P: ?62 MS: ? 153 ?QRS: ?106 QRSD: ? 138 ?T: ?-4 QT: ? 435 ? QTc: ?549 ? Interpretive Statements ELECTRONIC VENTRICULAR PACEMAKER ABNORMAL RHYTHM ECG Procedure Note , Milagro Gage MD - 10/06/2018 [facility] [address] [place] [address] Test Date: 2013-10-29 Pat Name: RAKAN SHAW Department: 1 Room: [facility] Gender: F Race Engine Builder: sb : 1935 Requested By: TREVON CHEN Order Number: [id number] Reading MD: Ramón Chilel Measurements Intervals [place] Rate: 95 P: 62 MS: 153 QRS: 106 QRSD: 138 T: -4 QT: 435 QTc: 549 Interpretive Statements ELECTRONIC VENTRICULAR PACEMAKER ABNORMAL RHYTHM ECG us Generic Conversion Md [facility] ECG ORDERABLES Final R esult [facility] documented in this encounter Visit Diagnoses Not on filedocumented in this encounter Care Teams Ornamental Metal Erector Relationship Specialty Start Date End Date Mary Barber MD [address] [place] [address] EP Helicopter Repairer CLINICAL CARDIAC ELECTROPHYSIOLOGY 09/15/16 Thomas Brian MD [address] [place] [address] CARDIOVASCULAR DISEASE 09/16/16 04/12/19 Josey Schwartz AGACNP-BC [address] [facility] MAILBOX [address] [place] [address] Nurse Practitioner Electrophysiology 09/18/16 12/22/19 documented as of this encounter
--- OUTSIDE RECORDS SUMMARY | 2024-01-27 08:03 | XMS_ITS | Encounter Summary ---
Author Organization [facility] Address [address] [facility] [place] [address] [place] [address] Care Team Providers Care Preparole Counseling Aide Name Role Phone Mary Barber MD Unavailable Thomas Brian MD Unavailable Unavailable Efren Josey [facility] Unavailable [phone] Encounter Details Date Type Department Care Team (Late Contact Info) Description 07/14/2013 Abstract [facility] Non Invasive Cardiology [facility] [address] [place] [address] Mary Barber MD [address] [place] [address] Social History Tobacco Use Types Packs/Day Years Used Date Smoking Tobacco: Never Assessed Comments Unknown Sex and Gender Information Value Date Recorded Sex Assigned at Not on file Legal Sex Female 10:54 PM CDT Gender Identity Not on file Sexual Orientation Not on file documented as of this encounter Plan of Treatment Upcoming Encounters Date Type Department Care Team (Late Contact Info) Description 02/15/2024 1:30 PM DIRECTOR CHECK [facility] [address] [place] [address] Tyrell Leiva PA-C [address] [place] [address] 02/15/2024 1:30 PM DIRECTOR CHECK Allied Health/Nurse Visit [facility] [address] [place] [address] Mary Barber MD [address] [place] [address] 03/15/2024 11:15 AM DIRECTOR CHECK Office Visit [facility] [address] [place] [address] Jim Tamez MD [address] [place] [address] 05/16/2024 1:15 AM CDT Allied Health/Nurse Visit [facility] [address] [place] [address] Mary Barber MD [address] [place] [address] 09/07/2024 9:00 AM CDT Office Visit [address] [place] [address] Tiffany Badillo MD [address] [place] [address] documented as of this encounter Visit Diagnoses Diagnosis Atrial fibrillation ([facility]) Atrial fibrillation documented in this encounter Care Teams Preparole Counseling Aide Relationship Specialty Start Date End Date Mary Barber MD [address] [place] [phone] EP Petroleum Products Sales Representative CLINICAL CARDIAC ELECTROPHYSIOLOGY 09/15/16 Thomas Brian MD [address] [place] [address] CARDIOVASCULAR DISEASE 09/16/16 04/12/19 Josey Schwartz AGACNP-BC [address] [facility] [address] [place] [address] Nurse Practitioner Electrophysiology 09/18/16 12/22/19 documented as of this encounter
--- OUTSIDE RECORDS SUMMARY | 2024-01-27 08:03 | XMS_ITS | Encounter Summary ---
Author Organization [facility] Address [address] [facility] [place] [address] [place] [address] Care Team Providers Care Physical Sciences Instructor Name Role Phone Unavailable Primary Care Provider Unavailabl e Encounter Details Date Type Department Care Team (Late Contact Info) Description 10/20/2013 Abstract [facility] [address] [place] [address] Milagro Cordero MD Social History [...] (Late Contact Info) Description 02/15/2024 1:30 PM MACHINE SHOP WORKER [facility] [address] [place] [address] Tyrell Leiva, PA-C [address] [place] [address] 02/15/2024 1:30 PM MACHINE SHOP WORKER Allied Health/N[facility] [address] [place] [address] Mary Barber MD [address] [place] [address] 03/15/2024 11:15 AM MACHINE SHOP WORKER Office Visit [facility] [address] [place] [address] Jim Tamez MD [address] [place] [address] 05/16/2024 1:15 AM CDT Allied Health/Nurse Visit [facility] [address] [place] [address] Mary Barber MD [address] [place] [address] 09/07/2024 9:00 AM CDT Office Visit [facility] [address] [place] [address] Tiffany Badillo MD [address] [place], [place] [address] documented as of this encounter Procedures Procedure Name Priority Date/Time Associated Diagnosis Comments ECG 12-LEAD Routine 10/20/2013 7:08 AM CDT EXTERNAL EJECTION FRACTION Routine 10/20/2013 12:00 AM CDT documented in this encounter Results * ECG 12 lead (10/20/2013 7:08 AM CDT) 10/20/2013 7:08 AM CDT Narrative [facility] - 10/21/2013 7:12 AM CDT ? [facility] ? [address] [place], [place] ??[address] ? Test Date: ?2013-10-20 Pat Name: ? RAKAN WEIDLER ?Department: ?? 1 ? Room: ? 0514 Gender: ? F ?Vocational Technical Education Teacher: ?? dms : ?1935 ? Requested By: MARY BANG Order Number: [id number] ? Reading MD: ?? Magdi John ? Measurements Intervals ?[place] ? Rate: ? 70 ? P: ? MD: ? 0 ?QRS: ?117 QRSD: ? 133 ?T: ?54 QT: ? 484 ? QTc: ?523 ? Interpretive Statements ELECTRONIC VENTRICULAR PACEMAKER ABNORMAL RHYTHM ECG Procedure Note Milagro Cordero, - 10/06/2018 [facility] [address] [place] [address] Test Date: 2013-10-20 Pat Name: RAKAN SHAW Department: 1 Room: [facility] Gender: F Vocational Technical Education Teacher: julio : 1935 Requested By: MARY BARBER Order Number: [id number] Reading MD: Magdi John Measurements Intervals [place] Rate: 70 P: MD: 0 QRS: 117 QRSD: 133 T: 54 QT: 484 QTc: 523 Interpretive Statements ELECTRONIC VENTRICULAR PACEMAKER ABNORMAL RHYTHM ECG us Generic Conversion Md CORDERO ECG ORDERABLES Final R esult [facility] * EXTERNAL EJECTION FRACTION (10/20/2013 12:00 AM CDT) EJECTION FRACTION 57 [facility] Comment: The left ventricular size is normal. The left ventricular systolic function is lower limits of normal. The calculated ejection fraction is 57%. Moderate to severe asymmetrical left ventricular hypertrophy. Right ventricular systolic function is normal. A pacemaker wire is visualized in the right ventricle. The left atrial size is normal. Trivial pericardial effusion, without tamponade physiology. Normal aortic root. The proximal ascending aorta measures 3.6cm. The aortic valve is trileaflet. Structurally normal tricuspid valve. Structurally normal mitral valve. Anatomical Region Laterality Modality Other 10/20/2013 10/20/2013 Narrative 10/20/2013 12:00 AM CDT Echo With Doppler, us Generic Conversion Md CORDERO OTHER Final R esult documented in this encounter Visit Diagnoses Not on filedocumented in this encounter
--- OUTSIDE RECORDS SUMMARY | 2024-01-27 08:03 | XMS_ITS | Encounter Summary ---
Author Organization [facility] Address [address] [facility] [place] [address] [place] [address] Care Team Providers Care Respiratory Services Manager Name Role Phone Unavailable Primary Care Provider Unavailabl e Encounter Details Date Type Department Care Team (Late Contact Info) Description 12/22/2013 Abstract [facility] [address] [place] [address] Milagro Guan MD Social History Tobacco Use [...] (Late Contact Info) Description 02/15/2024 1:30 PM FAMILY ENGAGEMENT SPECIALIST [facility] [address] [place] [address] Tyrell Leiva, PA-C [address] [place] [address] 02/15/2024 1:30 PM FAMILY ENGAGEMENT SPECIALIST Allied Health/Nurse [facility] [address] [place] [address] Mary Barber MD [address] [place] [address] 03/15/2024 11:15 AM FAMILY ENGAGEMENT SPECIALIST Office Visit [facility] [address] [place] [address] Jim Tamez MD [address] [place], [place] [address] 05/16/2024 1:15 AM CDT Allied Health/Nurse Visit [facility] [address] [place] [address] Mary Barber MD [address] [place] [address] 09/07/2024 9:00 AM CDT Office Visit [facility] [address] [place] [address] Tiffany Badillo MD [address] [place], [place] [address] documented as of this encounter Visit Diagnoses Not on filedocumented in this encounter
--- OUTSIDE RECORDS SUMMARY | 2024-01-27 08:03 | XMS_ITS | Encounter Summary ---
Author Organization [facility] Address [address] [facility] [place] [address] [place] [address] Care Team Providers Care Service Desk Associate Name Role Phone Unavailable Primary Care Provider Unavailabl e Encounter Details Date Type Department Care Team (Late Contact Info) Description 12/29/2013 Abstract [facility] [address] [place] [address] Milagro Guan MD Social History Tobacco Use [...] (Late Contact Info) Description 02/15/2024 1:[address] LIGHT MECHANIC [facility] [address] [place] [address] Tyrell Leiva, PA-C [address] [place] [address] 02/15/2024 1:[address] LIGHT MECHANIC Allied Health/Nurse [facility] [address] [place] [address] Mary Barber MD [address] [place] [address] 03/15/2024 11:[address] LIGHT MECHANIC Office Visit [facility] [address] [place] [address] Jim Tamez MD [address] [place], [place] [address] 05/16/2024 1:15 AM CDT Allied Health/Nurse Visit [facility] [address] [place] [address] Mary Barber MD [address] [place] [address] 09/07/2024 9:00 AM CDT Office Visit [facility] [address] [place] [address] Tiffany Badillo MD [address] [place], [place] [address] documented as of this encounter Visit Diagnoses Not on filedocumented in this encounter
--- OUTSIDE RECORDS SUMMARY | 2024-01-27 08:03 | XMS_ITS | Encounter Summary ---
Author Organization [facility] Address [address] [facility] [place] [address] [place] [address] Care Team Providers Care Recycling Program Manager Name Role Phone Unavailable Primary Care Provider Unavailabl e Encounter Details Date Type Department Care Team (Late Contact Info) Description 10/19/2013 Abstract [facility] [address] [place] [address] Milagro Cordero MD Social History [...] (Late Contact Info) Description 02/15/2024 1:30 PM ENTRY LEVEL ACCOUNTING CLERK [facility] [address] [place] [address] Tyrell Leiva, PA-C [address] [place] [address] 02/15/2024 1:30 PM ENTRY LEVEL ACCOUNTING CLERK Allied Health/Nurse [facility] [address] [place] [address] Mary Barber MD [address] [place] [address] 03/15/2024 11:15 AM ENTRY LEVEL ACCOUNTING CLERK Office Visit [address] [place] [address] Jim Tamez MD [address] [place] [address] 05/16/2024 1:15 AM CDT Allied Health/Nurse Visit [facility] [address] [place] [address] Mary Barber MD [address] [place] [address] 09/07/2024 9:00 AM CDT Office Visit [address] [place] [address] Tiffany Badillo MD [address] [place], [place] [address] documented as of this encounter Procedures Procedure Name Priority Date/Time Associated Diagnosis Comments EXTERNAL EJECTION FRACTION Routine 10/19/2013 12:00 AM CDT documented in this encounter Results * EXTERNAL EJECTION FRACTION (10/19/2013 12:00 AM CDT) [facility] Signature EJECTION FRACTION 35-40 [facility] Comment: TRACI-guided LARIAT Procedure ??The patient was counseled and an informed consent was obtained. ??Theesophagus was intubated without difficulty while the patient was undergeneral anaesthesia. ??The probe was passed to the gastric fundus andall standard TRACI views were obtained. ?1. Normal biventricular size; moderately decreased LV contractilitywith estimated LVEF 35-40%, global hypokinesis; normal RVcontractility. 2. Severe left atrial enlargement. Significant degree of spontaneousechocontrast was noted in the LA and CHANNING, but there was no thrombusvisualized. Small PFO. 3. Left atrial appendage was well seen with no thrombus. 4. Guided pericardial access with LARIAT sheath, wires and device. 5. Guided trans-atrial septal puncture. 6. Guided CHANNING access with magnet wires and balloon. 7. Guided CHANNING closure at the os with no residual flow. 8. Confirmed no post-procedure pericardial effusion. Anatomical Region Laterality Modality Other 10/19/2013 10/19/2013 Narrative 10/19/2013 12:00 AM CDT TRACI, us Generic Conversion Md CORDERO OTHER Final R esult documented in this encounter Visit Diagnoses Not on filedocumented in this encounter
--- OUTSIDE RECORDS SUMMARY | 2024-01-27 08:03 | XMS_ITS | Encounter Summary ---
Author Organization [facility] Address [address] [facility] [address] [place] [address] Care Team Providers Care Special Equipment Technician Name Role Phone Unavailable Primary Care Provider Unavailabl e Encounter Details Date Type Department Care Team (Late Contact Info) Description 11/24/2013 Abstract [facility] [address] [place] [address] Milagro Guan MD Social History [...] (Late Contact Info) Description 02/15/2024 1:30 PM MANGANESE BREAKER [facility] [address] [place] [address] Tyrell Leiva, PA-C [address] [place] [address] 02/15/2024 1:30 PM MANGANESE BREAKER Allied Health/Nurse [facility] [address] [place] [address] Mary Barber MD [address] [place] [address] 03/15/2024 11:15 AM MANGANESE BREAKER Office Visit [facility] [address] [place] [address] Jim Tamez MD [address] [place], [place] [address] 05/16/2024 1:15 AM CDT Allied Health/Nurse Visit [facility] [address] [place] [address] Mary Barber MD [address] [place] [address] 09/07/2024 9:00 AM CDT Office Visit [facility] [address] [place] [address] Tiffany Badillo MD [address] [place], [place] [address] documented as of this encounter Visit Diagnoses Not on filedocumented in this encounter
--- OUTSIDE RECORDS SUMMARY | 2024-01-27 08:03 | XMS_ITS | Encounter Summary ---
Author Organization [facility] Address [address] [facility] [place] [address] [place] [address] Care Team Providers Care Acute Care Clinical Nurse Specialist Name Role Phone Unavailable Primary Care Provider Unavailabl e Encounter Details Date Type Department Care Team (Late Contact Info) Description 11/13/2013 Abstract [facility] [address] [place] [address] Milagro Guan MD Social History [...] (Late Contact Info) Description 02/15/2024 1:30 PM CODING SPECIALIST HOME HEALTH [facility] [address] [place] [address] Tyrell Leiva, PA-C [address] [place] [address] 02/15/2024 1:30 PM CODING SPECIALIST HOME HEALTH Allied Health/Nurse [facility] [address] [place] [address] Mary Barber MD [address] [place] [address] 03/15/2024 11:15 AM CODING SPECIALIST HOME HEALTH Office Visit [facility] [address] [place] [address] Jim Tamez MD [address] [place], [place] [address] 05/16/2024 1:15 AM CDT Allied Health/Nurse Visit [facility] [address] [place] [address] Mary Barber MD [address] [place] [address] 09/07/2024 9:00 AM CDT Office Visit [facility] [address] [place] [address] Tiffany Badillo MD [address] [place], [place] [address] documented as of this encounter Visit Diagnoses Not on filedocumented in this encounter
--- OUTSIDE RECORDS SUMMARY | 2024-01-27 08:03 | XMS_ITS | Encounter Summary ---
Author Organization [facility] Address [address] [facility] [place] [address] [place] [address] Care Team Providers Care Family Psychologist Name Role Phone Mary Barber MD Unavailable Thomas Brian MD Unavailable Unavailable Efren Josey [facility] Unavailable [phone] Encounter Details Date Type Department Care Team (Late Contact Info) Description 10/28/2013 Abstract [facility] [address] [place] [address] Ilia Murrieta MD [address] [place] [address] Jeffrey Flores MD [address] [address] Social History Tobacco Use Types Packs/Day Years [...] (Late Contact Info) Description 02/15/2024 1:30 PM PRIMARY HEALTH CARE NURSE [facility] [address] [place] [address] Tyrell Leiva, PAHaylieC [address] [place] [address] [phone] 02/15/2024 1:30 PM PRIMARY HEALTH CARE NURSE Allied Health/Nurse Visit [facility] [address] [place] [address] Mary Barber MD [address] [place] [address] 03/15/2024 11:15 AM PRIMARY HEALTH CARE NURSE Office Visit [facility] [address] [place] [address] Jim Tamez MD [address] [place] [address] 05/16/2024 1:15 AM CDT Allied Health/Nurse Visit [facility] ld [address] [place] [address] Mary Barber MD [address] [place] [address] 09/07/2024 9:00 AM CDT Office Visit [address] [place] [address] Tiffany Badillo MD [address] [place] [address] documented as of this encounter Visit Diagnoses Diagnosis Acute on chronic combined systolic and diastolic heart failure (CMS/HCC HHS/HCC) Acute on chronic combined systolic and diastolic heart failure documented in this encounter Care Teams Family Psychologist Relationship Specialty Start Date End Date Mary Barber MD [address] [place] [address] EP Cheese Production Supervisor CLINICAL CARDIAC ELECTROPHYSIOLOGY 09/15/16 Thomas Brian MD [address] [place] [address] CARDIOVASCULAR DISEASE 09/16/16 04/12/19 Josey Schwartz, [facility] [address] [address] Nurse Practitioner Electrophysiology 09/18/16 12/22/19 documented as of this encounter
--- OUTSIDE RECORDS SUMMARY | 2024-01-27 08:03 | XMS_ITS | Encounter Summary ---
Author Organization [facility] Address [address] [facility] [place] [address] [place] [address] Care Team Providers Care Rn Travel Name Role Phone Mary Barber MD Unavailable Thomas Brian MD Unavailable Unavailable Josey Schwartz [employer] Unavailable [phone] Encounter Details Date Type Department Care Team (Late st Contact Info) Description 10/19/2013 Abstract [facility] Storage Garage Attendant [address] [place] [address] Mary Barber MD [address] [place] [address] Social History Tobacco Use Types [...] Contact Info) Description 02/15/2024 1:30 PM MEDICAL RECORDS SECRETARY Office Visit [facility] [address] [place] [address] Tyrell Leiva PAHaylieC [address] [place] [address] 02/15/2024 1:30 PM MEDICAL RECORDS SECRETARY Allied Health/Nurse Visit [facility] ld [address] [place] [address] Mary Barber MD [address] [place] [address] 03/15/2024 11:15 AM MEDICAL RECORDS SECRETARY Office Visit [facility] [place] [address] [place] [address] Jim Tamez MD [address] [place] [address] 05/16/2024 1:15 AM CDT Allied Health/Nurse Visit [facility] ld [address] [place] [address] Mary Barber MD [address] [place] [address] 09/07/2024 9:00 AM CDT Office Visit [place] [address] [facility] [place] [address] Tiffany Badillo MD [address] [place] [address] documented as of this encounter Procedures Procedure Name Priority Date/Time Associated Diagnosis Comments ECG 12-LEAD Routine 10/19/2013 10:53 AM CDT documented in this encounter Results * ECG 12 lead (10/19/2013 10:53 AM CDT) 10/19/2013 10:5 3 AM CDT Narrative [facility] - 10/21/2013 7:20 AM CDT ? [facility] ? [address] [place], [place] ??[address] ? Test Date: ?2013-10-19 Pat Name: ? RAKAN CHARLESYadi ?Department: ?? 1 ? Room: ? 0514 Gender: ? F ?Farm Planner: ?? TJ : ?1935 ? Requested By: MARY BANG Order Number: [id number] ? Reading MD: ?? Magdi John ? Measurements Intervals ?[place] ? Rate: ? 80 ? P: ? SC: ? 0 ?QRS: ?116 QRSD: ? 144 ?T: ?34 QT: ? 474 ? QTc: ?550 ? Interpretive Statements ELECTRONIC VENTRICULAR PACEMAKER ABNORMAL RHYTHM ECG Procedure Note Milagro Guan MD - 10/06/2018 [facility] [address] [place] [address] Test Date: 2013-10-19 Pat Name: RAKAN SHAW Department: 1 Room: [facility] Gender: F Farm Planner: TJ : 1935 Requested By: MARY BARBER Order Number: [id number] Reading MD: Magdi John Measurements Intervals [place] Rate: 80 P: SC: 0 QRS: 116 QRSD: 144 T: 34 QT: 474 QTc: 550 Interpretive Statements ELECTRONIC VENTRICULAR PACEMAKER ABNORMAL RHYTHM ECG us Milagro Gage Md, MD ECG ORDERABLES Final R esult [facility] documented in this encounter Visit Diagnoses Diagnosis Atrial fibrillation ([facility]) Atrial fibrillation documented in this encounter Care Teams Rn Travel Relationship Specialty Start Date End Date Mary Barber MD [address] [place] [address] EP Collar Worker CLINICAL CARDIAC ELECTROPHYSIOLOGY 09/15/16 Thomas Brian MD [address] [place] [address] CARDIOVASCULAR DISEASE 09/16/16 04/12/19 Josey Schwartz AGACNP- [address] [place] [address] [place] [address] Nurse Practitioner Electrophysiology 09/18/16 12/22/19 documented as of this encounter
--- OUTSIDE RECORDS SUMMARY | 2024-01-27 08:04 | XMS_ITS | Encounter Summary ---
Author Organization [facility] Address [address] [facility] [place] [place] [address] [place] [address] Care Team Providers Care Aviation Tactical Readiness Officer Name Role Phone Mary Barber MD Unavailable Thomas Brian MD Unavailable Unavailable Efren Josey [facility] Unavailable [phone] Encounter Details Date Type Department Care Team (Late Contact Info) Description 09/06/2012 Abstract [facility] Vascular Ultrasound - [facility] [address] [place] [address] Mary Barber MD [address] [place] [address] Social History Tobacco Use Types [...] (Late Contact Info) Description 02/15/2024 1:30 PM GRINDING WHEEL INSPECTOR Office Visit [facility] ld [address] [place] [address] Tyrell Leiva PA-C [address] [place] [address] 02/15/2024 1:30 PM GRINDING WHEEL INSPECTOR Allied Health/Nurse Visit [facility] ld [address] [place] [address] Mary Barber MD [address] [place] [address] 03/15/2024 11:15 AM GRINDING WHEEL INSPECTOR Office Visit [address] [place] [address] Jim Tamez MD [address] [place] [address] 05/16/2024 1:15 AM CDT Allied Health/Nurse Visit [facility] ld [address] [place] [address] Mary Barber MD [address] [place] [address] 09/07/2024 9:00 AM CDT Office Visit [address] [place] [address] Tiffany Badillo MD [address] [place] [address] documented as of this encounter Visit Diagnoses Diagnosis Atrial fibrillation ([facility]HCC [facility]) Atrial fibrillation documented in this encounter Care Teams Aviation Tactical Readiness Officer Relationship Specialty Start Date End Date Mary Barber MD [address] [place] [address] EP Journeyman Meat Cutter CLINICAL CARDIAC ELECTROPHYSIOLOGY 09/15/16 Thomas Brian MD [address] [place] [address] CARDIOVASCULAR DISEASE 09/16/16 04/12/19 Josey Schwartz, [facility] [address] [facility] [address] [place] [address] Nurse Practitioner Electrophysiology 09/18/16 12/22/19 documented as of this encounter
--- OUTSIDE RECORDS SUMMARY | 2024-01-27 08:04 | XMS_ITS | Encounter Summary ---
Author Organization [facility] Address [address] [place] [address] [place] [address] Care Team Providers Care Fiction And Nonfiction Author Name Role Phone Unavailable Primary Care Provider Unavailabl e Encounter Details Date Type Department Care Team (Late st Contact Info) Description 04/04/2013 Abstract [facility] [address] [place] [address] Milagro Guan MD Social History [...] st Contact Info) Description 02/15/2024 1:30 PM ALLIED HEALTH TEACHER [facility] [address] [place] [address] Tyrell Leiva PA-C [address] [place] [address] 02/15/2024 1:30 PM ALLIED HEALTH TEACHER Allied Health/Nurse [facility] [address] [place] [address] Mary Barber MD [address] [place] [address] 03/15/2024 11:15 AM ALLIED HEALTH TEACHER Office Visit [facility] [address] [place] [address] Jim Tamez MD [address] [place], [place] [address] 05/16/2024 1:15 AM CDT Allied Health/Nurse Visit [facility] [address] [place] [address] Mary Barber MD [address] [place] [address] 09/07/2024 9:00 AM CDT Office Visit [facility] [address] [place] [address] Tiffany Badillo MD [address] [place], [place] [address] documented as of this encounter Visit Diagnoses Not on filedocumented in this encounter
--- OUTSIDE RECORDS SUMMARY | 2024-01-27 08:04 | XMS_ITS | Encounter Summary ---
Author Organization [facility] Address [address] [facility] [address] [place] [address] Care Team Providers Care Radiologic Therapist Name Role Phone Unavailable Primary Care Provider Unavailabl e Encounter Details Date Type Department Care Team (Late Contact Info) Description 07/05/2013 Scan [facility] [address] [place] [address] Milagro Guan MD Social History [...] st Contact Info) Description 02/15/2024 1:30 PM DE ALCHOLIZER Office Visit [facility] [address] [place] [address] Tyrell Leiva PA-C [address] [place] [address] 02/15/2024 1:30 PM DE ALCHOLIZER Allied Health/Nurse Visit [facility] [address] [place] [address] Mary Barber MD [address] [place] [address] 03/15/2024 11:15 AM DE ALCHOLIZER Office Visit [facility] [address] [place] [address] Jim Tamez MD [address] [place], [place] [address] 05/16/2024 1:15 AM CDT Allied Health/Nurse Visit [facility] [address] [place] [address] Mary Barber MD [address] [place] [address] 09/07/2024 9:00 AM CDT Office Visit [facility] [address] [place] [address] Tiffany Badillo MD [address] [place], [place] [address] documented as of this encounter Visit Diagnoses Not on filedocumented in this encounter
--- OUTSIDE RECORDS SUMMARY | 2024-01-27 08:04 | XMS_ITS | Encounter Summary ---
Author Organization [facility] Address [address] [facility] [place] [address] [place] [address] Care Team Providers Care Turbine Engineer Name Role Phone Unavailable Primary Care Provider Unavailabl e Encounter Details Date Type Department Care Team (Late st Contact Info) Description 03/22/2013 Scan [facility] [address] [place] [address] Milagro Guan MD Social History [...] st Contact Info) Description 02/15/2024 1:30 PM CORRUGATED SHEET MATERIAL SHEETER Office Visit [facility] ld [address] [place] [address] Tyrell Leiva PA-C [address] [place] [address] 02/15/2024 1:30 PM CORRUGATED SHEET MATERIAL SHEETER Allied Health/Nurse Visit [facility] ld [address] [place] [address] Mary Barber MD [address] [place] [address] 03/15/2024 11:15 AM CORRUGATED SHEET MATERIAL SHEETER Office Visit [facility] [address] [place] [address] Jim Tamez MD [address] [place], [place] [address] 05/16/2024 1:15 AM CDT Allied Health/Nurse Visit [facility] [address] [place] [address] Mary Barber MD [address] [place] [address] 09/07/2024 9:00 AM CDT Office Visit [facility] [address] [place] [address] Tiffany Badillo MD [address] [place], [place] 8[address]881 documented as of this encounter Visit Diagnoses Not on filedocumented in this encounter
--- OUTSIDE RECORDS SUMMARY | 2024-01-27 08:04 | XMS_ITS | Encounter Summary ---
Author Organization [facility] Address [address] [facility] [place] [address] [place] [address] Care Team Providers Care Market Development Executive Name Role Phone Unavailable Primary Care Provider Unavailabl e Encounter Details Date Type Department Care Team (Late Contact Info) Description 07/05/2013 Abstract [facility] [address] [place] [address] Milagro Guan MD Social History [...] Contact Info) Description 02/15/2024 1:30 PM DIRECTOR OF GRADUATE ADMISSIONS [facility] [address] [place] [address] Tyrell Leiva PA-C [address] [place] [address] 02/15/2024 1:30 PM DIRECTOR OF GRADUATE ADMISSIONS Allied Health/Nurse Visit [facility] [address] [place] [address] Mary Barber MD [address] [place] [address] 03/15/2024 11:15 AM DIRECTOR OF GRADUATE ADMISSIONS Office Visit [facility] [address] [place] [address] Jim Tamez MD [address] [place], [place] 9767[address] 05/16/2024 1:15 AM CDT Allied Health/Nurse Visit [facility] [address] [place] [address] Mary Barber MD [address] [place] [address] 09/07/2024 9:00 AM CDT Office Visit [facility] [address] [place] [address] Tiffany Badillo MD [address] [place], [place] 8[address]171 documented as of this encounter Visit Diagnoses Not on filedocumented in this encounter
--- OUTSIDE RECORDS SUMMARY | 2024-01-27 08:04 | XMS_ITS | Encounter Summary ---
Author Organization [facility] Address [address] [facility] [address] [place] [address] Care Team Providers Care Director Money Name Role Phone Unavailable Primary Care Provider Unavailabl e Encounter Details Date Type Department Care Team (Late st Contact Info) Description 10/13/2012 Scan [facility] [address] [place] [address] Milagro Guan MD Social History [...] Contact Info) Description 02/15/2024 1:30 PM SMOKING PIPE REPAIRER Office Visit [facility] ld [address] [place] [address] Tyrell Leiva PA-C [address] [place] [address] 02/15/2024 1:30 PM SMOKING PIPE REPAIRER Allied Health/Nurse Visit [facility] ld [address] [place] [address] Mary Barber MD [address] [place] [address] 03/15/2024 11:15 AM SMOKING PIPE REPAIRER Office Visit [facility] [address] [place] [address] Jim Tamez MD [address] [place], [place] [address] 05/16/2024 1:15 AM CDT Allied Health/Nurse Visit [facility] [address] [place] [address] Mary Barber MD [address] [place] [address] 09/07/2024 9:00 AM CDT Office Visit [facility] [address] [place] [address] Tiffany Badillo MD [address] [place], [place] 0[address] documented as of this encounter Visit Diagnoses Not on filedocumented in this encounter
--- OUTSIDE RECORDS SUMMARY | 2024-01-27 08:04 | XMS_ITS | Encounter Summary ---
Author Organization [facility] Address [address] [facility] [place] [address] [place] [address] Care Team Providers Care Property Officer Name Role Phone Unavailable Primary Care Provider Unavailabl e Encounter Details Date Type Department Care Team (Late Contact Info) Description 07/14/2013 Abstract [facility] [address] [place] [address] Milagro Cordero MD Social History Tobacco Use [...] (Late Contact Info) Description 02/15/2024 1:30 PM MACHINIST WOOD [facility] [address] [place] [address] Tyrell Leiva PA-C [address] [place] [address] 02/15/2024 1:30 PM MACHINIST WOOD Allied Health/Nurse Visit [facility] [address] [place] [address] Mary Barber MD [address] [place] [address] 03/15/2024 11:15 AM MACHINIST WOOD Office Visit [facility] [address] [place] [address] Jim Tamez MD [address] [place] [address] 05/16/2024 1:15 AM CDT Allied Health/Nurse Visit [facility] [address] [place] [address] Mary Barber MD [address] [place] [address] 09/07/2024 9:00 AM CDT Office Visit [address] [place] [address] Tiffany Badillo MD [address] [place], [place] [address] documented as of this encounter Procedures Procedure Name Priority Date/Time Associated Diagnosis Comments EXTERNAL EJECTION FRACTION Routine 07/14/2013 12:00 AM CDT documented in this encounter Results * EXTERNAL EJECTION FRACTION (07/14/2013 12:00 AM CDT) [facility] Signature EJECTION FRACTION 30-35 [facility] Comment: The left ventricular size is normal. The left ventricular systolic function is moderately to severelydepressed. Estimated left ventricular ejection fraction is 30-35%. Right ventricular function is normal. A pacemaker wire is visualized in the right ventricle. The left atrial volume is severely increased (>40 ml/M2). Normal aortic root. The peak pulmonary artery systolic pressure is estimated to beapprox.37 mmHg. The aortic valve is trileaflet. No evidence of aortic valve stenosis. Structurally normal mitral valve. Mild mitral regurgitation. Structurally normal tricuspid valve. Mild tricuspid regurgitation. Anatomical Region Laterality Modality Other 07/14/2013 07/14/2013 Narrative 07/14/2013 12:00 AM CDT Echo with Cardiac Doppler, us Generic Conversion Md CORDERO OTHER Final R esult documented in this encounter Visit Diagnoses Not on filedocumented in this encounter
--- OUTSIDE RECORDS SUMMARY | 2024-01-27 08:04 | XMS_ITS | Encounter Summary ---
Author Organization [facility] Address [address] [facility] [place] [address] [place] [address] Care Team Providers Care Chair Upholsterer Name Role Phone Unavailable Primary Care Provider Unavailabl e Encounter Details Date Type Department Care Team (Late st Contact Info) Description 03/22/2013 Abstract [facility] [address] [place] [address] Milagro Guan MD Social History [...] st Contact Info) Description 02/15/2024 1:30 PM S3B MULTI SENSOR OPERATOR [facility] [address] [place] [address] Tyrell Leiva PA-C [address] [place] [address] 02/15/2024 1:30 PM S3B MULTI SENSOR OPERATOR Allied Health/Nurse [facility] [address] [place] [address] Mary Barber MD [address] [place] [address] 03/15/2024 11:15 AM S3B MULTI SENSOR OPERATOR Office Visit [facility] [address] [place] [address] Jim Tamez MD [address] [place], [place] [address] 05/16/2024 1:15 AM CDT Allied Health/Nurse Visit [facility] [address] [place] [address] Mary Barber MD [address] [place] [address] 09/07/2024 9:00 AM CDT Office Visit [facility] [address] [place] [address] Tiffany Badillo MD [address] [place], [place] [address] documented as of this encounter Visit Diagnoses Not on filedocumented in this encounter
--- OUTSIDE RECORDS SUMMARY | 2024-01-27 08:04 | XMS_ITS | Encounter Summary ---
Author Organization [facility] Address [address] [facility] [place] [address] [place] [address] Care Team Providers Care Machining Manager Name Role Phone Unavailable Primary Care Provider Unavailabl e Encounter Details Date Type Department Care Team (Late Contact Info) Description 08/06/2012 Abstract [facility] [address] [place] [address] Milagro Guan MD Social History [...] st Contact Info) Description 02/15/2024 1:30 PM FEATHER STITCHER [facility] [address] [place] [address] Tyrell Leiva PA-C [address] [place] [address] 02/15/2024 1:30 PM FEATHER STITCHER Allied Health/Nurse [facility] [address] [place] [address] Mary Barber MD [address] [place] [address] 03/15/2024 11:15 AM FEATHER STITCHER Office Visit [facility] [address] [place] [address] Jim Tamez MD [address] [place], [place] [address] 05/16/2024 1:15 AM CDT Allied Health/Nurse Visit [facility] [address] [place] [address] Mary Barber MD [address] [place] [address] 09/07/2024 9:00 AM CDT Office Visit [facility] [address] [place] [address] Tiffany Badillo MD [address] [place], [place] [address] documented as of this encounter Visit Diagnoses Not on filedocumented in this encounter
--- OUTSIDE RECORDS SUMMARY | 2024-01-27 08:04 | XMS_ITS | Encounter Summary ---
Author Organization [facility] Address [address] [place] [address] [place] [address] Care Team Providers Care Glass Worker Name Role Phone Unavailable Primary Care Provider Unavailabl e Encounter Details Date Type Department Care Team (Late st Contact Info) Description 04/05/2013 Abstract [facility] [address] [place] [address] Milagro Cordero MD Social History [...] st Contact Info) Description 02/15/2024 1:30 PM SIMPLEX OPERATOR [facility] [address] [place] [address] Tyrell Leiva PA-C [address] [place] [address] 02/15/2024 1:30 PM SIMPLEX OPERATOR Allied Health/Nurse [facility] [address] [place] [address] Mary Barber MD [address] [place] [address] 03/15/2024 11:15 AM SIMPLEX OPERATOR Office Visit [facility] [place] [address] [facility] [place] [address] Jim Tamez MD [address] [place] [address] 05/16/2024 1:15 AM CDT Allied Health/Nurse Visit [facility] [address] [place] [address] Mary Barber MD [address] [place] [address] 09/07/2024 9:00 AM CDT Office Visit [facility] [place] [address] [facility] [place] [address] Tiffany Badillo MD [address] [place], [place] [address] documented as of this encounter Procedures Procedure Name Priority Date/Time Associated Diagnosis Comments ECG 12-LEAD Routine 04/05/2013 5:25 AM SIMPLEX OPERATOR documented in this encounter Results * ECG 12 lead (04/05/2013 5:25 AM SIMPLEX OPERATOR) 04/05/2013 5:25 AM SIMPLEX OPERATOR Narrative [facility] - 04/07/2013 5:54 AM SIMPLEX OPERATOR ? [facility] ? [address] [place], [place] ??[address] ? Test Date: ?2013-04-05 Pat Name: ? RAKAN WEIDLER ?Department: ?? 1 ? Room: ? 0455A Gender: ? F ?Nursing Home Social Worker: ?? sg : ?1935 ? Requested By: ZIAD BANG Order Number: [id number] ? Reading MD: ?? Ramón De Jesus ? Measurements Intervals ?[place] ? Rate: ? 71 ? P: ?58 ID: ? [id number] ?QRS: ?112 QRSD: ? 143 ?T: ?67 QT: ? 453 ? QTc: ?475 ? Interpretive Statements ELECTRONIC VENTRICULAR PACEMAKER BASELINE RHYTHM IS SINUS LEX OPERATOR Procedure Note , Milagro Gage MD - 10/06/2018 [facility] [address] [place] [address] Test Date: 2013-04-05 [facility] 1 Room: [facility] Gender: F Nursing Home Social Worker: sb : 1935 Requested By: MARY BARBER Order Number: [id number] Reading MD: Ramón De Jesus Measurements Intervals [place] Rate: 71 P: 58 ID: 152 QRS: 112 QRSD: 143 T: 67 QT: 453 QTc: 475 Interpretive Statements ELECTRONIC VENTRICULAR PACEMAKER BASELINE RHYTHM IS SINUS LEX OPERATOR us Generic Conversion Md CORDERO ECG ORDERABLES Final R esult [facility] documented in this encounter Visit Diagnoses Not on filedocumented in this encounter
--- OUTSIDE RECORDS SUMMARY | 2024-01-27 08:04 | XMS_ITS | Encounter Summary ---
Author Organization [facility] Address [address] [place] [address] [place] [address] Care Team Providers Care Computer Service Technician Name Role Phone Unavailable Primary Care Provider Unavailabl e Encounter Details Date Type Department Care Team (Late st Contact Info) Description 04/04/2013 Scan [facility] [address] [place] [address] Milagro Guan MD Social History [...] st Contact Info) Description 02/15/2024 1:30 PM TELEPHONE INSTRUMENT SUPERVISOR Office Visit [facility] ld [address] [place] [address] Tyrell Leiva PA-C [address] [place] [address] 02/15/2024 1:30 PM TELEPHONE INSTRUMENT SUPERVISOR Allied Health/Nurse Visit [facility] [address] [place] [address] Mary Barber MD [address] [place] [address] 03/15/2024 11:15 AM TELEPHONE INSTRUMENT SUPERVISOR Office Visit [facility] [address] [place] [address] Jim Tamez MD [address] [place], [place] [address] 05/16/2024 1:15 AM CDT Allied Health/Nurse Visit [facility] [address] [place] [address] Mary Barber MD [address] [place] [address] 09/07/2024 9:00 AM CDT Office Visit [facility] [address] [place] [address] Tiffany Badillo MD [address] [place], [place] [address] documented as of this encounter Visit Diagnoses Not on filedocumented in this encounter
--- OUTSIDE RECORDS SUMMARY | 2024-01-27 08:04 | XMS_ITS | Encounter Summary ---
Author Organization [facility] Address [address] [facility] [place] [address] [place] [address] Care Team Providers Care Weight Loss Centre Manager Name Role Phone Mary Barber MD Unavailable Thomas Brian MD Unavailable Unavailable Efren Josey [facility] Unavailable [phone] Encounter Details Date Type Department Care Team (Late Contact Info) Description 06/08/2012 Abstract [facility] [address] [place] [address] Mary Barber MD [address] [place] [address] Social History Tobacco Use Types Packs/Day Years [...] (Late Contact Info) Description 02/15/2024 1:30 PM SPINE SURGEON [facility] [address] [place] [address] Tyrell Leiva PAHaylieC [address] [place] [address] 02/15/2024 1:30 PM SPINE SURGEON Allied Health/Nurse [facility] [address] [place] [address] Mary Barber MD [address] [place] [address] 03/15/2024 11:15 AM SPINE SURGEON Office Visit [facility] [address] [place] [address] Jim Tamez MD [address] [place] [address] 05/16/2024 1:15 AM CDT Allied Health/Nurse [facility] [address] [place] [address] Mary Barber MD [address] [place] [address] 09/07/2024 9:00 AM CDT Office Visit [address] [place] [address] Tiffany Badillo MD [address] [place] [address] documented as of this encounter Visit Diagnoses Diagnosis Fitting and adjustment of cardiac pacemaker documented in this encounter Care Teams Weight Loss Centre Manager Relationship Specialty Start Date End Date Mary Barber MD [address] [place] [phone] EP Double Cut [place]yer CLINICAL CARDIAC ELECTROPHYSIOLOGY 09/15/16 Thomas Brian MD [address] [place] [address] CARDIOVASCULAR DISEASE 09/16/16 04/12/19 [facility] [address] [facility] [address] [place] [address] Nurse Practitioner Electrophysiology 09/18/16 12/22/19 documented as of this encounter
--- OUTSIDE RECORDS SUMMARY | 2024-01-27 08:04 | XMS_ITS | Encounter Summary ---
Author Organization [facility] Address [address] [facility] [place] [address] [place] [address] Care Team Providers Care Financial Recruiter Name Role Phone Unavailable Primary Care Provider Unavailabl e Encounter Details Date Type Department Care Team (Late Contact Info) Description 07/14/2013 Scan [facility] [address] [place] [address] Milagro Guan MD Social History [...] Contact Info) Description 02/15/2024 1:30 PM CUSTOMER ENERGY SPECIALIST Office Visit [facility] [address] [place] [address] Tyrell Leiva PA-C [address] [place] [address] 02/15/2024 1:30 PM CUSTOMER ENERGY SPECIALIST Allied Health/Nurse Visit [facility] [address] [place] [address] Mary Barber MD [address] [place] [address] 03/15/2024 11:15 AM CUSTOMER ENERGY SPECIALIST Office Visit [facility] [address] [place] [address] Jim Tamez MD [address] [place], [place] [address] 05/16/2024 1:15 AM CDT Allied Health/Nurse Visit [facility] [address] [place] [address] Mary Barber MD [address] [place] [address] 09/07/2024 9:00 AM CDT Office Visit [facility] [address] [place] [address] Tiffany Badillo MD [address] [place], [place] [address] documented as of this encounter Visit Diagnoses Not on filedocumented in this encounter
--- OUTSIDE RECORDS SUMMARY | 2024-01-27 08:04 | XMS_ITS | Encounter Summary ---
Author Organization [facility] Address [address] [place] [address] [place] [address] Care Team Providers Care Annealing Torch Operator Name Role Phone Unavailable Primary Care Provider Unavailabl e Encounter Details Date Type Department Care Team (Late Contact Info) Description 10/13/2012 Abstract [facility] [address] [place] [address] Milagro Cordero MD Social History [...] Contact Info) Description 02/15/2024 1:30 PM CAR REPAIRMAN [facility] [address] [place] [address] Tyrell Leiva PA-C [address] [place] [address] 02/15/2024 1:30 PM CAR REPAIRMAN Allied Health/Nurse [facility] [address] [place] [address] Mary Barber MD [address] [place] [address] 03/15/2024 11:15 AM CAR REPAIRMAN Office Visit [address] [place] [address] Jim Tamez MD [address] [place] [address] 05/16/2024 1:15 AM CDT Allied Health/Nurse Visit [facility] [address] [place] [address] Mary Barber MD [address] [place] [address] 09/07/2024 9:00 AM CDT Office Visit [address] [place] [address] Tiffany Badillo MD [address] [place], [place] [address] documented as of this encounter Procedures Procedure Name Priority Date/Time Associated Diagnosis Comments EXTERNAL EJECTION FRACTION Routine 10/13/2012 12:00 AM CDT documented in this encounter Results * EXTERNAL EJECTION FRACTION (10/13/2012 12:00 AM CDT) [facility] Signature EJECTION FRACTION 30-35 [facility] Comment: LV: The left ventricular systolic function is moderately to severelydepressed. LV: Estimated left ventricular ejection fraction is 30-35%.Calculated LVEF 34%. Global LV hypokinesis. LV: The left ventricular size is moderately enlarged. LA: The left atrial size is severely enlarged. LA: Left atrial appendage shows no evidence of thrombus. IAS: Atrial septum shows evidence of a small patent foramen ovale. MV: Mild mitral regurgitation. Anatomical Region Laterality Modality Other 10/13/2012 10/13/2012 Narrative 10/13/2012 12:00 AM CDT TRAC[facility], us Generic Conversion Md CORDERO OTHER Final R esult documented in this encounter Visit Diagnoses Not on filedocumented in this encounter
--- OUTSIDE RECORDS SUMMARY | 2024-01-27 08:04 | XMS_ITS | Encounter Summary ---
Author Organization [facility] Address [address] [facility] [place] [address] [place] [address] Care Team Providers Care Director Of Retail Analytics Name Role Phone Mary Barber MD Unavailable Thomas Brian MD Unavailable Unavailable Josey Schwartz [facility] Unavailable [phone] Encounter Details Date Type Department Care Team (Late st Contact Info) Description 04/04/2013 Abstract [facility] Design Printing Machine Set Up Operator [address] [place] [address] Mary Barber MD [address] [place] [phone] Social History Tobacco Use Types Packs/Day Years [...] (Late Contact Info) Description 02/15/2024 1:30 PM COMPUTER SUPPORT ANALYST Office Visit [facility] [address] [place] [phone] Tyrell Leiva PAHaylieC [address] [place] [address] 02/15/2024 1:30 PM COMPUTER SUPPORT ANALYST Allied Health/Nurse Visit [facility] [address] [place] [address] Mary Barber MD [address] [place] [address] 03/15/2024 11:15 AM COMPUTER SUPPORT ANALYST Office Visit [facility] [place] [address] [place] [address] Jim Tamez MD [address] [place] [address] 05/16/2024 1:15 AM CDT Allied Health/Nurse Visit [facility] [address] [place] [address] Mary Barber MD [address] [place] [address] 09/07/2024 9:00 AM CDT Office Visit [place] [address] [facility] [place] [address] Tiffany Badillo MD [address] [place] [address] documented as of this encounter Procedures Procedure Name Priority Date/Time Associated Diagnosis Comments ECG 12-LEAD Routine 04/04/2013 4:27 PM COMPUTER SUPPORT ANALYST ECG 12-LEAD Routine 04/04/2013 10:44 AM COMPUTER SUPPORT ANALYST documented in this encounter Results * ECG 12 lead (04/04/2013 4:27 PM COMPUTER SUPPORT ANALYST) 04/04/2013 4:27 PM COMPUTER SUPPORT ANALYST Narrative [facility] - 04/05/2013 3:09 AM COMPUTER SUPPORT ANALYST ? [facility] [address], [place] ??[address] ? Test Date: ?2013-04-04 Pat Name: ? RAKAN LYNDSEYCHRISTOPHER ?Department: ?? 1 ? Room: ? Gender: ? F ?Manager Msw: ?? KRISS MICHAEL : ?1935 ? Requested By: MARY BANG Order Number: [id number] ? Reading MD: ?? Ramón De Jesus ? Measurements Intervals ?Laverne ? Rate: ? 62 ? P: ? SC: ? 0 ?QRS: ?137 QRSD: ? 209 ?T: ?0 QT: ? 314 ? QTc: ?319 ? Interpretive Statements NORMAL SINUS RHYTHM WITH 100% VENTRICULAR PACING UTER SUPPORT ANALYST Procedure Note , Milagro Conversion, - 10/06/2018 [facility] [address] [place] [address] Test Date: 2013-04-04 Pat Name: RAKAN SHAW Department: 1 Room: Gender: F Manager Msw: KRISS MICHAEL : 1935 Requested By: MARY BARBER Order Number: [id number] Reading MD: Ramón De Jesus Measurements Intervals Laverne Rate: 62 P: SC: 0 QRS: 137 QRSD: 209 T: 0 QT: 314 QTc: 319 Interpretive Statements NORMAL SINUS RHYTHM WITH 100% VENTRICULAR PACING UTER SUPPORT ANALYST us Generic Too Guan MD ECG ORDERABLES Final R esult [facility] * ECG 12 lead (04/04/2013 10:44 AM COMPUTER SUPPORT ANALYST) 04/04/2013 10:4 4 AM COMPUTER SUPPORT ANALYST Narrative [facility] - 04/05/2013 3:30 AM COMPUTER SUPPORT ANALYST ? [facility] ? [address], [place] ??[address] ? Test Date: ?2013-04-04 Pat Name: ? RAKAN WEIDLER ?Department: ?? 1 ? Room: ? Gender: ? F ?Manager Msw: ?? gs : ?1935 ? Requested By: MARY BANG Order Number: [id number] ? Reading MD: ?? Ramón De Jesus ? Measurements Intervals ?Laverne ? Rate: ? 72 ? P: ?151 SC: ? 200 ?QRS: ?70 QRSD: ? 160 ?T: ?-26 QT: ? 445 ? QTc: ?469 ? Interpretive Statements ELECTRONIC DUAL CHAMBER PACEMAKER UTER SUPPORT ANALYST Procedure Note Milagro Guan MD - 10/06/2018 [facility] [address] [place] [address] Test Date: 2013-04-04 Pat Name: RAKAN SHAW Department: 1 Room: Gender: F Manager Msw: : 1935 Requested By: MARY BARBER Order Number: [id number] Reading MD: Ramón De Jesus Measurements Intervals Laverne Rate: 72 P: 151 SC: 200 QRS: 70 QRSD: 160 T: -26 QT: 445 QTc: 469 Interpretive Statements ELECTRONIC DUAL CHAMBER PACEMAKER UTER SUPPORT ANALYST us Generic Too Guan MD ECG ORDERABLES Final R esult [facility] documented in this encounter Visit Diagnoses Diagnosis Other premature beats documented in this encounter Care Teams Director Of Retail Analytics Relationship Specialty Start Date End Date Mary Barber MD [address] [place] [address] EP Goat Herder CLINICAL CARDIAC ELECTROPHYSIOLOGY 09/15/16 Thomas Brian MD [address] [place] [address] CARDIOVASCULAR DISEASE 09/16/16 04/12/19 Josey Schwartz AGACNP- [address] [facility] [address] [address] Nurse Practitioner Electrophysiology 09/18/16 12/22/19 documented as of this encounter
--- OUTSIDE RECORDS SUMMARY | 2024-01-27 08:04 | XMS_ITS | Encounter Summary ---
Author Organization [facility] Address [address] [facility] [place] [address] [place] [address] Care Team Providers Care Social Economist Name Role Phone Mary Barber MD Unavailable Thomas Brian MD Unavailable Unavailable Efren Josey [facility] Unavailable [phone] Encounter Details Date Type Department Care Team (Late Contact Info) Description 09/28/2012 Abstract [facility] [place] [facility] [place] [address] [place] [address] Mary Barber MD [address] [place] [phone] Social History Tobacco Use Types Packs/Day Years [...] (Late Contact Info) Description 02/15/2024 1:30 PM CLIENT SUPPORT REPRESENTATIVE [facility] [address] [place] [address] Tyrell Leiva PAHaylieC [address] [place] [address] 02/15/2024 1:30 PM CLIENT SUPPORT REPRESENTATIVE Allied Health/Nurse Visit [facility] ld [address] [place] [address] Mary Barber MD [address] [place] [address] 03/15/2024 11:15 AM CLIENT SUPPORT REPRESENTATIVE Office Visit [facility] [address] [place] [address] Jim Tamez MD [address] [place] [address] 05/16/2024 1:15 AM CDT Allied Health/Nurse Visit [facility] ld [address] [place] [address] Mary Barber MD [address] [place] [address] 09/07/2024 9:00 AM CDT Office Visit [address] [place] [address] Tiffany Badillo MD [address] [place] [address] documented as of this encounter Visit Diagnoses Diagnosis Fitting and adjustment of cardiac pacemaker documented in this encounter Care Teams Social Economist Relationship Specialty Start Date End Date Mary Barber MD [address] [place] [address] EP Plant Production Worker CLINICAL CARDIAC ELECTROPHYSIOLOGY 09/15/16 Thomas Brian MD [address] [place] [phone] CARDIOVASCULAR DISEASE 09/16/16 04/12/19 [facility] [address] [facility] [address] [place] [address] Nurse Practitioner Electrophysiology 09/18/16 12/22/19 documented as of this encounter
--- OUTSIDE RECORDS SUMMARY | 2024-01-27 08:04 | XMS_ITS | Encounter Summary ---
Author Organization [facility] Address [address] [facility] [place] [address] [place] [address] Care Team Providers Care Cosmetics Machine Operator Name Role Phone Mary Barber MD Unavailable Thomas Brian MD Unavailable [facility]available [facility] Unavailable [phone] Encounter Details Date Type Department Care Team (Late Contact Info) Description 10/13/2012 Abstract [facility] [address] [place] [address] Goyo Garzon MD Social History Tobacco Use Types Packs/Day [...] st Contact Info) Description 02/15/2024 1:30 PM SUBSTANCE ABUSE CLINICIAN [facility] [address] [place] [address] Tyrell Leiva PA-C [address] [place] [address] 02/15/2024 1:30 PM SUBSTANCE ABUSE CLINICIAN Allied Health/Nurse Visit [facility] [address] [place] [phone] Mary Barber MD [address] [place] [address] 03/15/2024 11:15 AM SUBSTANCE ABUSE CLINICIAN Office Visit [facility] [address] [place] [address] Jim Tamez MD [address] [place], [place] [address] 05/16/2024 1:15 AM CDT Allied Health/Nurse Visit [facility] [address] [place] [address] Mary Barber MD [address] [place] [address] 09/07/2024 9:00 AM CDT Office Visit [address] [place] [address] Tiffany Badillo MD [address] [place], [place] [address] documented as of this encounter Visit Diagnoses Diagnosis Atrial fibrillation ([facility]/HCC [facility]/HCC) Atrial fibrillation documented in this encounter Care Teams Cosmetics Machine Operator Relationship Specialty Start Date End Date Mary Barber MD [address] [place] [phone] EP Bobbin Stripper CLINICAL CARDIAC ELECTROPHYSIOLOGY 09/15/16 Thomas Brian MD [address] [place] [address] CARDIOVASCULAR DISEASE 09/16/16 04/12/19 Josey Schwartz AGACNP- [address] [place] [address] [place] [phone] Nurse Practitioner Electrophysiology 09/18/16 12/22/19 documented as of this encounter
--- OUTSIDE RECORDS SUMMARY | 2024-01-27 08:04 | XMS_ITS | Encounter Summary ---
Author Organization [facility] Address [address] [place] [address] [place] [address] Care Team Providers Care Fall Internship Name Role Phone Mary Barber MD Unavailable Thomas Brian MD Unavailable Unavailable Efren Josey [facility] Unavailable [phone] Encounter Details Date Type Department Care Team (Late Contact Info) Description 01/18/2013 Abstract [facility] - [place] [facility] [place] [address] [place] [address] Mary Barber MD [address] [place] [phone] Social History Tobacco Use Types Packs/Day Years [...] (Late Contact Info) Description 02/15/2024 1:30 PM SUMMER ANALYST [facility] [address] [place] [address] Tyrell Leiva PAHaylieC [address] [place] [address] 02/15/2024 1:30 PM SUMMER ANALYST Allied Health/Nurse Visit [facility] ld [address] [place] [address] Mary Barber MD [address] [place] [address] 03/15/2024 11:15 AM SUMMER ANALYST Office Visit [facility] [address] [place] [address] Jim Tamez MD [address] [place] [address] 05/16/2024 1:15 AM CDT Allied Health/Nurse Visit [facility] ld [address] [place] [address] Mary Barber MD [address] [place] [address] 09/07/2024 9:00 AM CDT Office Visit [address] [place] [address] Tiffany Badillo MD [address] [place] [address] documented as of this encounter Visit Diagnoses Diagnosis Fitting and adjustment of cardiac pacemaker documented in this encounter Care Teams Fall Internship Relationship Specialty Start Date End Date Mary Barber MD [address] [place] [phone] EP Parking Officer CLINICAL CARDIAC ELECTROPHYSIOLOGY 09/15/16 Thomas Brian MD [address] [place] [address] CARDIOVASCULAR DISEASE 09/16/16 04/12/19 Josey Schwartz [facility] [address] [facility] [address] [place] [address] Nurse Practitioner Electrophysiology 09/18/16 12/22/19 documented as of this encounter
--- OUTSIDE RECORDS SUMMARY | 2024-01-27 08:05 | XMS_ITS | Encounter Summary ---
Author Organization [facility] Address [address] [facility] [place] [address] [place] [address] Care Team Providers Care Commercial Energy Auditor Name Role Phone Unavailable Primary Care Provider Unavailabl e Encounter Details Date Type Department Care Team (Late Contact Info) Description 07/03/2007 Abstract [facility] [address] [place] [address] Milagro Cordero MD Social History [...] st Contact Info) Description 02/15/2024 1:30 PM CUPOLA PATCHER [facility] [address] [place] [address] Tyrell Leiva PA-C [address] [place] [address] 02/15/2024 1:30 PM CUPOLA PATCHER Allied Health/Nurse [facility] [address] [place] [address] Mary Barber MD [address] [place] [address] 03/15/2024 11:15 AM CUPOLA PATCHER Office Visit [facility] [address] [place] [address] Jim Tamez MD [address] [place], [place] [address] 05/16/2024 1:15 AM CDT Allied Health/Nurse Visit [facility] [address] [place] [address] Mary Barber MD [address] [place] [address] 09/07/2024 9:00 AM CDT Office Visit [address] [place] [address] Tiffany Badillo MD [address] [place], [place] [address] documented as of this encounter Procedures Procedure Name Priority Date/Time Associated Diagnosis Comments BASIC METABOLIC PANEL Routine 07/03/2007 5:30 AM CDT documented in this encounter Results * (ABNORMAL) BASIC METABOLIC PANEL (07/03/2007 5:30 AM CDT) SODIUM S/P/B 139 133 - 142 MMOL/L MEDINFORMATIX TO EPIC CONVERSION POTASSIUM S/P/B 3.6 3.6 - 5.1 MMOL/L MEDINFORMATIX TO EPIC CONVERSION CHLORIDE S/P/B 104 96 - 110 MMOL/L MEDINFORMATIX TO EPIC CONVERSION CO2 23(L) 24 - 32 MMOL/L MEDINFORMATIX TO EPIC CONVERSION BUN 15 6 - 22 MG/DL MEDINFORMATIX TO EPIC CONVERSION CREATININE S/P/B 0.9 0.7 - 1.4 MG/DL MEDINFORMATIX TO EPIC CONVERSION GLUCOSE 105 70 - 105 MG/DL MEDINFORMATIX TO EPIC CONVERSION CALCIUM S/P/B 8.7 8.5 - 10.5 MG/DL MEDINFORMATIX TO EPIC CONVERSION 07/03/2007 5:30 AM CDT 07/03/2007 5:30 AM CDT us Generic Conversion Md [facility] Final R esult MEDINFORMATIX TO EPIC CONVERSION documented in this encounter Visit Diagnoses Not on filedocumented in this encounter
--- OUTSIDE RECORDS SUMMARY | 2024-01-27 08:05 | XMS_ITS | Encounter Summary ---
Author Organization [facility] Address [address] [facility] [place] [address] [place] [address] Care Team Providers Care Employment Appeals Examiner Name Role Phone Mary Barber MD Unavailable Thomas Brian MD Unavailable Unavailable Josey Schwartz [facility] Unavailable [phone] Encounter Details Date Type Department Care Team (Late Contact Info) Description 08/16/2007 Abstract [facility] [address] [place] [address] Milagro Guan MD Social History Tobacco Use [...] (Late Contact Info) Description 02/15/2024 1:30 PM COMPANY MARKER Office Visit [facility] [address] [place] [address] Tyrell Leiva PA-C [address] [place] [address] 02/15/2024 1:30 PM COMPANY MARKER Allied Health/Nurse Visit [facility] [address] [place] [address] Mary Barber MD [address] [place] [address] [phone] 03/15/2024 11:15 AM COMPANY MARKER Office Visit [facility] [address] [place] [address] Jim Tamez MD [address] [place] [address] 05/16/2024 1:15 AM CDT Allied Health/Nurse Visit [facility] [address] [place] [address] Mary Barber MD [address] [place] [address] 09/07/2024 9:00 AM CDT Office Visit [facility] [address] [place] [address] Tiffany Badillo MD [address] [place], [place] [address] documented as of this encounter Visit Diagnoses Not on filedocumented in this encounter Care Teams Employment Appeals Examiner Relationship Specialty Start Date End Date Mary Barber MD [address] [place] [phone] EP Vacuum Bottle Assembler CLINICAL CARDIAC ELECTROPHYSIOLOGY 09/15/16 Thomas Brian MD [address] [place] [phone] CARDIOVASCULAR DISEASE 09/16/16 04/12/19 Josey Schwartz AGACNP- [address] [facility] [address] [place] [address] Nurse Practitioner Electrophysiology 09/18/16 12/22/19 documented as of this encounter
--- OUTSIDE RECORDS SUMMARY | 2024-01-27 08:05 | XMS_ITS | Encounter Summary ---
Author Organization [facility] Address [address] [facility] [place] [address] [place] [address] Care Team Providers Care Seed Cutter Name Role Phone Unavailable Primary Care Provider Unavailabl e Encounter Details Date Type Department Care Team (Late Contact Info) Description 11/15/2009 Abstract [facility] [address] [address] Milagro Cordero MD Social History Tobacco Use [...] st Contact Info) Description 02/15/2024 1:30 PM SUPERVISOR PRINTING SHOP [facility] [address] [place] [address] Tyrell Leiva PA-C [address] [place] [address] 02/15/2024 1:30 PM SUPERVISOR PRINTING SHOP Allied Health/Nurse Visit [facility] [address] [place] [address] Mary Barber MD [address] [place] [address] 03/15/2024 11:15 AM SUPERVISOR PRINTING SHOP Office Visit [facility] [address] [place] [address] Jim Tamez MD [address] [place], [place] [address] 05/16/2024 1:15 AM CDT Allied Health/Nurse Visit [facility] [address] [place] [address] Mary Barber MD [address] [place] [address] 09/07/2024 9:00 AM CDT Office Visit [facility] [address] [place] [address] Tiffany Badillo MD [address] [place], [place] [address] documented as of this encounter Procedures Procedure Name Priority Date/Time Associated Diagnosis Comments LIVER PROFILE Routine 11/15/2009 12:00 AM CDT documented in this encounter Results * LIVER PROFILE (11/15/2009 12:00 AM CDT) ALT 31 0 - 48 u/l MEDINFORM ATIX TO EPIC CONVERSION AST 20 0 - 42 u/l MEDINFORM ATIX TO EPIC CONVERSION 11/15/2009 11/15/2009 us Generic Conversion Md [facility] Final R esult MEDINFORMATIX TO EPIC CONVERSION documented in this encounter Visit Diagnoses Not on filedocumented in this encounter
--- OUTSIDE RECORDS SUMMARY | 2024-01-27 08:05 | XMS_ITS | Encounter Summary ---
Author Organization [facility] Address [address] [facility] [place] [address] [place] [address] Care Team Providers Care Business Services Assistant Name Role Phone Unavailable Primary Care Provider Unavailabl e Encounter Details Date Type Department Care Team (Late st Contact Info) Description 11/21/2009 Abstract [facility] [address] [place] [address] Milagro Cordero MD Social History [...] st Contact Info) Description 02/15/2024 1:30 PM FISHER WEIR [facility] [address] [place] [address] Tyrell Leiva PA-C [address] [place] [address] 02/15/2024 1:30 PM FISHER WEIR Allied Health/Nurse [facility] [address] [place] [address] Mary Barber MD [address] [place] [address] 03/15/2024 11:15 AM FISHER WEIR Office Visit [address] [place] [address] Jim Tamez MD [address] [place] [address] 05/16/2024 1:15 AM CDT Allied Health/Nurse Visit [facility] [address] [place] [address] Mary Barber MD [address] [place] [address] 09/07/2024 9:00 AM CDT Office Visit [address] [place] [address] Tiffany Badillo MD [address] [place], [place] [address] documented as of this encounter Procedures Procedure Name Priority Date/Time Associated Diagnosis Comments EXTERNAL EJECTION FRACTION Routine 11/21/2009 12:00 AM CDT documented in this encounter Results * EXTERNAL EJECTION FRACTION (11/21/2009 12:00 AM CDT) [facility] Signature EJECTION FRACTION 55 [facility] Comment: The aortic valve is trileaflet.There is no valvular aortic stenosis.No aortic regurgitation is present.The mitral valve leaflets appear thickened, but open well.There is posterior mitral annular calcification.There is mild mitral regurgitation.There is mild tricuspid regurgitation.The left atrium is dilated.The right ventricle size is normal.there is a pacing lead in the right heart.There is no evidence of pulmonary hypertension.The left ventricle is normal in size.Global left ventricle systolic function is normal.The left ventricualr ejection fraction is greater than 55%. Anatomical Region Laterality Modality Other 11/21/2009 11/21/2009 Narrative 11/21/2009 12:00 AM CDT transthoracic echo, ordered by Gerson Foreman M.D. us Generic Conversion Md [facility] Final R esult documented in this encounter Visit Diagnoses Not on filedocumented in this encounter
--- OUTSIDE RECORDS SUMMARY | 2024-01-27 08:05 | XMS_ITS | Encounter Summary ---
Author Organization [facility] Address [address] [facility] [place] [address] [place] [address] Care Team Providers Care Building Construction Estimator Name Role Phone Unavailable Primary Care Provider Unavailabl e Encounter Details Date Type Department Care Team (Late st Contact Info) Description 04/27/2006 Abstract [facility] [address] [place] [address] Milagro Cordero MD Social History [...] st Contact Info) Description 02/15/2024 1:30 PM SPRAY BLENDER [facility] [address] [place] [address] Tyrell Leiva PA-C [address] [place] [address] 02/15/2024 1:30 PM SPRAY BLENDER Allied Health/Nurse Visit [facility] [address] [place] [address] Mary Barber MD [address] [place] [address] 03/15/2024 11:15 AM SPRAY BLENDER Office Visit [facility] [address] [place] [address] Jim Tamez MD [address] [place] [address] 05/16/2024 1:15 AM CDT Allied Health/Nurse Visit [facility] [address] [place] [address] Mary Barber MD [address] [place] [address] 09/07/2024 9:00 AM CDT Office Visit [address] [place] [address] Tiffany Badillo MD [address] [place], [place] [address] documented as of this encounter Procedures Procedure Name Priority Date/Time Associated Diagnosis Comments EXTERNAL EJECTION FRACTION Routine 04/27/2006 12:00 AM CDT documented in this encounter Results * EXTERNAL EJECTION FRACTION (04/27/2006 12:00 AM CDT) [facility] Signature EJECTION FRACTION 60 to [facility] Comment:1. The left ventricu lar chamber size is moderately increased.2. Mildly dilated left atrium.3. LV Ejection Fraction normal at 67.4 %.4. LV ejection fraction is estimated to be 60 to 65%.5. Moderately elevated pulmonary artery systolic pressure. Anatomical Region Laterality Modality Other 04/27/2006 04/27/2006 Narrative 04/27/2006 12:00 AM CDT Transthoracic Echocardiogram, Mary Barber M.D. us Generic Conversion Md [facility] OTHER Final R esult documented in this encounter Visit Diagnoses Not on filedocumented in this encounter
--- OUTSIDE RECORDS SUMMARY | 2024-01-27 08:05 | XMS_ITS | Encounter Summary ---
Author Organization [facility] Address [address] [place] [address] [place] [address] Care Team Providers Care Reduction Furnace Operator Helper Name Role Phone Mary Barber MD Unavailable Thomas Brian MD Unavailable Unavailable Efren Josey [facility] Unavailable [phone] Encounter Details Date Type Department Care Team (Late Contact Info) Description 02/17/2012 Abstract [facility] Cardiology - [facility] [place] [address] [place] [address] Mary Barber MD [address] [place] [phone] Social History Tobacco Use Types Packs/Day Years [...] (Late Contact Info) Description 02/15/2024 1:30 PM NUTRITION INTERNSHIP [facility] [address] [place] [phone] Tyrell Leiva PAHaylieC [address] [place] [phone] 02/15/2024 1:30 PM NUTRITION INTERNSHIP Allied Health/Nurse [facility] [address] [place] [address] Mary Barber MD [address] [place] [address] 03/15/2024 11:15 AM NUTRITION INTERNSHIP Office Visit [facility] [address] [place] [address] Jim Tamez MD [address] [place] [address] 05/16/2024 1:15 AM CDT Allied Health/Nurse Visit [facility] [address] [place] [address] Mary Barber MD [address] [place] [address] 09/07/2024 9:00 AM CDT Office Visit [address] [place] [address] Tiffany Badillo MD [address] [place] [address] documented as of this encounter Visit Diagnoses Diagnosis Fitting and adjustment of cardiac pacemaker documented in this encounter Care Teams Reduction Furnace Operator Helper Relationship Specialty Start Date End Date Mary Barber MD [address] [place] [phone] EP Cooker Chip CLINICAL CARDIAC ELECTROPHYSIOLOGY 09/15/16 Thomas Brian MD [address] [place] [phone] CARDIOVASCULAR DISEASE 09/16/16 04/12/19 Josey Schwartz [facility] [address] [facility] MA[address] [place] [phone] Nurse Practitioner Electrophysiology 09/18/16 12/22/19 documented as of this encounter
--- OUTSIDE RECORDS SUMMARY | 2024-01-27 08:05 | XMS_ITS | Encounter Summary ---
Author Organization [facility] Address [address] [place] [address] [place] [address] Care Team Providers Care Labor Delivery Specialist Name Role Phone Mary Barber MD Unavailable Thomas Brian MD Unavailable Unavailable Efren Josey [facility] Unavailable [phone] Encounter Details Date Type Department Care Team (Late Contact Info) Description 10/21/2011 Abstract [facility] Cardiology - [place] [facility] [place] [address] [place] [address] Mary Barber MD [address] [place] [phone] Social History Tobacco Use Types Packs/Day Years [...] (Late Contact Info) Description 02/15/2024 1:30 PM MONEY ROOM SUPERVISOR [facility] [address] [place] [phone] Tyrell Leiva PAHaylieC [address] [place] [phone] 02/15/2024 1:30 PM MONEY ROOM SUPERVISOR Allied Health/Nurse Visit [facility] [address] [place] [address] Mray Barber MD [address] [place] [address] 03/15/2024 11:15 AM MONEY ROOM SUPERVISOR Office Visit [facility] [address] [place] [address] Jim Tamez MD [address] [place] [address] 05/16/2024 1:15 AM CDT Allied Health/Nurse Visit [facility] [address] [place] [address] Mary Barber MD [address] [place] [address] 09/07/2024 9:00 AM CDT Office Visit [address] [place] [address] Tiffany Badillo MD [address] [place] [address] documented as of this encounter Visit Diagnoses Diagnosis Fitting and adjustment of cardiac pacemaker documented in this encounter Care Teams Labor Delivery Specialist Relationship Specialty Start Date End Date Mary Barber MD [address] [place] [phone] EP Legal Administrator CLINICAL CARDIAC ELECTROPHYSIOLOGY 09/15/16 Thomas Brian MD [address] [place] [phone] CARDIOVASCULAR DISEASE 09/16/16 04/12/19 Josey Schwartz [facility] [address] [facility] MAIL[address] [place] [phone] Nurse Practitioner Electrophysiology 09/18/16 12/22/19 documented as of this encounter
--- OUTSIDE RECORDS SUMMARY | 2024-01-27 08:05 | XMS_ITS | Encounter Summary ---
Author Organization [facility] Address [address] [place] [address] [place] [address] Care Team Providers Care Intermediate Frame Tender Name Role Phone Mary Barber MD Unavailable Thomas Brian MD Unavailable Unavailable Efren Josey [facility] Unavailable [phone] Encounter Details Date Type Department Care Team (Late Contact Info) Description 07/01/2011 Abstract [facility] Cardiology - [place] [facility] [address] [place] [address] Mary Barber MD [address] [place] [phone] Social History Tobacco Use Types Packs/Day Years [...] (Late Contact Info) Description 02/15/2024 1:30 PM PERSONAL LINES SALES EXECUTIVE [facility] [address] [place] [phone] Tyrell Leiva PAHaylieC [address] [place] [phone] 02/15/2024 1:30 PM PERSONAL LINES SALES EXECUTIVE Allied Health/Nurse Visit [facility] [address] [place] [address] Mary Barber MD [address] [place] [address] 03/15/2024 11:15 AM PERSONAL LINES SALES EXECUTIVE Office Visit [facility] [address] [place] [address] Jim Tamez MD [address] [place] [address] 05/16/2024 1:15 AM CDT Allied Health/Nurse Visit [facility] [address] [place] [address] Mary Barber MD [address] [place] [address] 09/07/2024 9:00 AM CDT Office Visit [address] [place] [address] Tiffany Badillo MD [address] [place] [address] documented as of this encounter Visit Diagnoses Diagnosis Fitting and adjustment of cardiac pacemaker documented in this encounter Care Teams Intermediate Frame Tender Relationship Specialty Start Date End Date Mary Barber MD [address] [place] [phone] EP Insurance Claim Representative CLINICAL CARDIAC ELECTROPHYSIOLOGY 09/15/16 Thomas Brian MD [address] [place] [phone] CARDIOVASCULAR DISEASE 09/16/16 04/12/19 Josey Schwartz [facility] [address] [facility] MA[address] [place] [phone] Nurse Practitioner Electrophysiology 09/18/16 12/22/19 documented as of this encounter
--- OUTSIDE RECORDS SUMMARY | 2024-01-27 09:06 | XMS_ITS | Data Portability ---
Author Organization [facility], [address] [place] [address] ([place]) Address [address] [place] [address] Care Team Providers Care Delivery Driver/Supervisor Name Role Phone HI ROLON Primary Care Provider Assessment Encounter Date Assessment Date Assessment LastModified by Organization Details LastModified Time 07/15/2023 07/15/2023 1. The following diagnosis is categorized as a CHRONIC ILLNESS : History of non-melanoma skin cancer per pt hx only. We discussed the importance of regular skin examinations by a physician as well as monthly self-skin examinations. No evidence of recurrence in previously treated areas. We discussed the worrisome changes to watch for in skin lesions. We discussed the importance of watching for new and/or changing lesions. We discussed the importance of photoprotection using protective clothing and sunscreen with SPF 30 or higher. Pt was instructed to call the office if develops a lesion which grows or changed rapidly. 2. The following diagnosis is categorized as a SELF LIMITED OR MINOR PROBLEM: acrochorda: We discussed the fact that these are benign lesions requiring no treatment. We discussed the fact that removal would be considered a cosmetic procedure and would not be covered by insurance. The patient was advised that more such lesions may develop. The patient is not bothered by the lesions and does not wish to have them treated. We will observe. Lesion on neck were treated with liquid nitrogen. No charge for this procedure. The patient tolerated the procedure well. Post-treatment instructions were discussed. 3. The following diagnosis is categorized as a CHRONIC ILLNESS: Rosacea: Discussed diagnosis and treatment options. Female patients advised to stop all medication if planning or gets and to let us know. Explained potential aggravators include sunlight, spicy foods, alcohol, and chocolate. Recommend broad spectrum SPF 30 non-comedogenic daily. Recommend avoiding other known triggers. Recommend bland moisturizer such as CeraVe/Eucerin/Argelia cream daily. Pt given information on laser removal of telangiectasias Advised on triggers for flush response to avoid 4. The following diagnosis is categorized as a SELF LIMITED OR MINOR PROBLEM: Milia: We discussed the benign nature of the lesions. None of these lesions are clinically inflamed. We discussed the fact that insurance will not cover removal of these lesions as this is considered a cosmetic procedure. The patient understands and wishes to proceed with treatment. The risks and benefits of the procedure, the risks and benefits of alternative procedures, as well as the possible consequences of not undergoing the procedure were discussed. The potential for recurrence and development of further lesions was discussed. The potential pigmentary changes was discussed. The patient verbalizes understanding and gives consent to proceed with treatment. Lesions were removed using a 11 blade. No charge for this procedure. The patient tolerated the procedure well. Post-treatment instructions were discussed. 5. The following diagnosis is categorized as a CHRONIC ILLNESS : History of actinic keratoses. No lesions currently requiring treatment. The patient was advised that these are pre-skin cancers: they have a small risk of developing into skin cancers and their presence signifies an increased risk for developing skin cancer. Thus the patient was advised to use a sunscreen of at least SPF 30 and wear protective clothing. I asked pt to return PRN. Pt will call with any questions or concerns in the meantime. [email or web address] Not available 07/15/2023 12:54:51 12/28/2023 12/28/2023 SUBJECTIVE: 88-year-old here for walk-in evaluation of what is described as right shoulder pain. Sera comes in today with her daughter. This problem has been going on for 3 days. They assumed it was her shoulder. She states that on the she was putting up some drapes on a ladder. She was stretched out trying to hold the curtain len or something along those lines. She did not fall, but since that time she has had sharp, stabbing pain in her right upper extremity. It starts in the upper trap area, goes all the way down her wrist. She has numbness in the 3rd digit of her right hand. She went to [facility] over the weekend. They diagnosed her with rotator cuff tendinitis. X-rays were done of her shoulder and they put those on a disc for us to download. She was placed on hydrocodone and they gave her a couple of IV doses of Fentanyl which have not helped her at all. The only injury was that she did fall a few years ago, landed on her same shoulder, never had an evaluation after that. She is pretty miserable and she is a pretty tough lady. REVIEW OF SYSTEMS: CONST:-Denies fevers or chills. Denies significant weight changes. EYES:-Denies vision changes. ENT:-Denies pain or swollen gland in the neck. RESP:-Denies shortness of breath. CV:-Denies palpitations. GI:-Denies nausea, vomiting, diarrhea, constipation. :-Denies urinary symptoms or frequency. MSK:-Denies joint pain or joint swelling. SKIN:-Denies rashes or skin lesions. NEURO:-Denies neuropathic pain or weakness. Reviewed past medical history, family history, surgical history, social history. No changes except as noted. She does have a pacemaker. It is a [employer] that is MRI compatible. However, one of the leads is not a [employer] lead and so they do not know for sure if it is or not, so it has been recommended she talk with Dr. Barber, about compatibility with MRI. OBJECTIVE: CONST:-On examination appeared in good health and spirits. Alert and oriented. Vital signs as documented. EYES:-No icterus. RESP:-Breathing appears normal, unlabored. GI:-Abdomen nondistended. RIGHT SHOULDER:-Increased pain with end-range of internal rotation on the right that does radiate down the arm. There is no tenderness to palpation over the acromioclavicular joint, long head of the biceps tendon or shoulder girdle. There is 5/5 strength with abduction, external and internal rotation bilaterally. There is a negative [place], Neer? s and Speed? s impingement test. No instability is appreciated with anterior posterior glide test or sulcus maneuver. There is no effusion, redness or increased warmth to touch in the shoulder. O? B rien? s maneuver is negative. Loading and rotating the shoulder does not reproduce any painful clicks or pops. Cross body flexion of the shoulder is negative for any reproduction of AC joint pain. I cannot reproduce any pain in the acromioclavicular joint with resisted extension of that shoulder into the frontal plane while holding it in a 90-degree forward flexed position. There is intact sensation and pulses in the upper extremities bilaterally. SKIN:-No cyanosis. Skin warm and dry. PSYCH:-Stable mood and affect. NEURO:-No speech difficulty. NECK:-Decreased range of motion side bending right and rotating right is most significant. Both fo those maneuvers cause radiating pain down the right arm. There is no tenderness to palpation in the paracervical muscles or other spinous processes. There is no swelling, bruising, redness or increased warmth to touch in the cervical spine. No obvious active trigger points palpable. Positive Spurling? s maneuver, right and left. Pulses are palpable +2 in the radial arteries bilaterally. NEURO:-Speech is audible and unlabored and easy to understand. There is decreased sensation to light touch in the 3rd digit of ther right hand. There is 5/5 strength with finger flexion and abduction, wrist flexion and extension, elbow flexion and extension and shoulder abduction bilaterally. DIAGNOSTIC STUDIES: X-rays cervical spine done today and reviewed with them on the PACS system. I also reviewed x-rays of her shoulder that were done as [facility]. She does have evidence of calcific tendinitis and some abnormality at the greater tuberosity but no fracture. Cervical spine x-rays show significant degenerative disc disease at C3-4, 4-5, and 5-6 with end-plate spurring and disc space narrowing. ASSESSMENT: Right upper extremity pain appears to be most consistent with cervical radiculitis/radicul opathy but certainly cannot completely rule out a rotator cuff tendinitis/calcific tendinitis as a source of complaint. PLAN: I think overall the exam and history evidence point towards her neck as the source of her pain. We are going to give her prednisone taper. I talked about gabapentin but apparently she does not tolerate that medication. In the evening before bed we will try cyclobenzaprine 10 mg but during the day she will use the prednisone taper, 30 mg tapered over 12 days. She was given a physical therapy order for gentle traction, range of motion, modalities for pain relief. Then we will call Dr. Barber's office to see if we can get approval for MRI. [email or web address] Not available 12/28/2023 23:59:16 Plan of Treatment Reminders Order Date Submit Date Provider Last Modified By Organization Details Last Modified Time Details Appointments None recorded. Lab None recorded. Referral physical therapist referral - Evaluate and Treat Cervical radiculopat hy/Right shoulder painModalit ies/Range of Motion/Trac tion 2023 ALAINA Not available 21:05:16 Procedures None recorded. Surgeries None recorded. Imaging XR, cervical spine, 2 or 3 view 2023 [facility], [address] [place] [address], [id number], 15:01:24 Medication Orders prednisone 10 mg tablet 2023 [id number], [address] [place], [phone], 15:01:24 cyclobenzap rine 10 mg tablet 2023 [id number], [address], [place], [phone], 15:01:24 Patient TargetsNo targets recorded. Patient InstructionsNo instructions recorded. Reason for Referral Physical Therapist Referral for Cervical radiculopathy Evaluate and Treat Cervical radiculopathy/Right shoulder painModalities/Range of Motion/Traction Referring Physician: Shubham Heath, Orthopedics, Encounter Date: 12/28/2023 Results Created Date Observation Date Name Description Value Unit Range Abnormal Flag Note LastModifiedBy Organization Detail LastModifiedTime 12/28/19 24 12/28/2023 XR, cervi cholo spine , 2 or [address] [address] Teleph one Name: Boris Mcmullen 1922Ex am Date: 2023 Age: 88Phys ician: Raudel escoto MD, Shubham : 1935Ex aminat ion: XR CERVIC AL 2 OR 3 VIEWS EXAM: Three- view cervic al spine HISTOR Y: Right should er pain after hangin g curtai ns 4 days ago COMPAR NIELS: None FINDIN GS: No prever tebral soft tissue swelli ng. There is slight retrol isthes is of C3 on C4. There is slight retrol isthes is of C4 on C5. There is modera te multil evel degene rative spondy losis at C3-4, C4-5, and C5-6 with interv ertebr al disc space narrow ing, endpla te sclero sis, margin al osteop hyte format ion. There is facet arthro iliana throug hout the cervic al spine. No acute osseou s abnorm ality identi fied. Cardia c pacer device partia lly includ ed within the field- of-vie w. IMPRES VIDA: Modera te degene rative spondy losis of the cervic al spine as above. Electr onical ly signed in [place]zier cribe by: CHAPO ALVAREZ MD on: 11:24 AM cc: Page PAGE 1 of [facility] - [facility] [address] [place] [address], [id number], 12/28/2023 15:02:15 Result Notes None recorded. Problems Name Problem SNOMED Code Status Onset Date Resolution Date Notes Provider Name and Address Organization Details Recorded Time Pain of right shoulder joint 768263368540 15697 [facility] Pain of right shoulder region Active 2023 [facility] 4 11:51:28 Cervical radiculop athy 16678316 Active 2023 [facility] 4 12:38:50 Calcific tendiniti s of left shoulder 749155875687 108 Active 2023 Marcel[facility] 4 19:16:05 Calcific tendiniti s of right shoulder 248815054220 107 Active 2023 Marcelina [place] null, [facility] 4 19:16:10 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 49403661 Active 2023 Marcelina [place] null, [facility] 4 19:16:38 Actinic keratosis 392747544 Active 2023 Radhika Adorno null, [facility] 4 11:11:22 Dry skin dermatiti s 545657000 [facility] 11:13:35 Rosacea 385149650 [facility] 11:13:42 Multiple benign melanocyt ic nevi 331369179 Active 2023 Left & Right upper [facility] 4 11:14:03 Seborrhei c keratosis 013692774 Active 20[facility] 11:14:10 Solar lentigo 52374934 [facility] 11:14:16 Intertrig o 91020965 [facility] 11:14:24 Severe dry skin 234529371 Active 2023 [facility] 4 11:52:57 Melanocyt ic nevus of right upper limb 402432050 Active 2023 [facility] 4 11:53:14 Melanocyt ic nevus of right lower limb 062278640407 108 Active 2023 [facility] 4 11:53:18 Lentigo - freckle 442425876 Active 2023 Renee Scottie [facility], [facility] 11:54:27 Problem Notes None recorded. Procedures Surgical History Date Name Laterality Status Provider Name and Address Organization Details Recorded Time excision of malignant neoplasm completed Selenemauricio Osorioter [facility] 07/15/2023 10:01:24 Imaging Results Imaging Date Name Status LastModified by Organiz ation Details LastModified Time 12/28/2023 XR, cervical spine, 2 or 3 view completed [facility] - [facility] [address] [place] [address], [id number], 12/28/2023 15:02:15 Procedure Notes None recorded. Medical Equipment None Reported. Allergies Allergen ID Allergen Name Allergen Category Reaction Reaction Severity Criticality Documentation Date Start Date Code Code System Note Provider Name and Address Organization Details Recorded Time [id number] 243519164 1413218c9 2824e Levaquin medicatio n Not available Not available Not available 03/11/20232017 22714 2 RxNorm Not Available Not Available Not Available [id number] 2808040g7 2824e oxycodone medicatio n Not available Not available Not available 03/11/20232017 7804 RxNorm Not Available Not Available Not Available [id number] 285768572 9542880y2 2824e Medicinal product containin g penicilli n and acting as antibacte rial agent (product) medicatio n Not available Not available Not available 03/11/20232017 82956 05 SNOMED Not Available Not Available Not Available [id number] [id number] 2824e acetamino phen / hydrocodo ne medicatio n Not available Not available Not available 03/11/20232017 71362 2 RxNorm Not Available Not Available Not Available Medications Name Sig Start Date Stop Date Status Note LastModified by Organization Details LastModified Time cyclobenzapr ine 10 mg tablet 1/2--1 tablet at bedtime as needed 2023 active Not Available Not Available Not Avai lable prednisone 10 mg tablet Take 3 tablets daily for 5 days, thenTake 2 tablets daily for 4 days, thenTake 1 tablet daily for 3 days 2023 active Not Available Not Available Not Avai lable amiodarone 200 mg tablet TAKE 1/2 TABLET BY MOUTH DAILY active Not Available Not Available Not Available spironolacto ne 25 mg tablet TAKE 1/2 TABLET BY MOUTH DAILY active Not Available Not Available Not Available levothyroxin e 100 mcg tablet TAKE 1 TABLET BY MOUTH EVERY DAY active Not Available Not Available No t Available pantoprazole 40 mg tablet,delay ed release TAKE 1 TABLET BY MOUTH EVERY MORNING active Not Available Not Available No t Available neomycin-racquel ymyxin-dexam eth 3.5 mg/mL-10,000 unit/mL-0.1% eye drops INSTILL 1 DROP INTO EACH EYE EVERY 6 HOURS active Not Available Not Available No t Available hydrocortiso ne 2.5 % topical cream Apply twice daily to rash under breasts x2 weeks on; 1 week off 2023 active last rx 05.31 .23 Not Available Not Available Not Available metoprolol succinate ER 25 mg tablet,exten ded release 24 hr TAKE 1 TABLET (25 MG TOTAL) BY MOUTH DAILY. active Not Available Not Available No t Available ketoconazole 2 % topical cream Apply twice daily under breasts x 2 weeks on; 1 week off 2023 active last rx 05.31 .23 Not Available Not Available Not Available ciclopirox 0.77 % topical gel APPLY 1 APPLICATION EXTERNALLY EVERY DAY FOR 90 DAYS active Not Available Not Available Not Available Restasis 0.05 % eye drops in a dropperette INSTILL 1 DROP INTO BOTH EYES TWICE A DAY active Not Available Not Available Not Available rosuvastatin 40 mg tablet TAKE 1 TABLET BY MOUTH EVERYDAY AT BEDTIME active Not Available Not Available No t Available amiodarone 100 mg tablet TAKE 1 TABLET BY MOUTH EVERY DAY active Not Available Not Available No t Available nitrofuranto in monohydrate/ macrocrystal s 100 mg capsule 100 MG ORALLY EVERY 12 HOURS FOR 5 DAYS MUST ADMINISTER WITH A MEAL/FOOD active Not Available Not Available No t Available pregabalin 50 mg capsule TAKE 1 CAPSULE BY MOUTH TWICE A DAY active Not Available Not Available No t Available pregabalin 100 mg capsule TAKE 1 CAPSULE BY MOUTH TWICE A DAY active Not Available Not Available No t Available Eliquis 5 mg tablet TAKE 1 TABLET BY MOUTH TWICE A DAY active Not Available Not Available No t Available Entresto 24 mg-26 mg tablet TAKE 1 TABLET BY MOUTH TWICE A DAY active Not Available Not Available No t Available Vitals Date Recorded Body height Body mass index (BMI) Body weight Heart rate Oxygen saturation Oxygen saturation in Arterial blood by Pulse oximetry Provider Name and Address Organization Details Last Updated DateTime 4 160.02 cm 28 kg/m2 05471.5 9 g 70 /min 95 % 95 % Nickie Madsen [facility] 4 11:34:13 Social History None recorded. Functional Status None recorded. Mental Status None recorded. Family History Nothing Reported. Medical History No medical history recorded. Gynecological HistoryNo gynecological history recorded. Obstetrics History GPAL:G 0 P 0 0 0 0 Past Encounters Encounter ID Performer Location Encounter Start Date Encounter Closed Date Diagnosis/Indication Diagnosis SNOMED-CT Code Diagnosis ICD10 Code [id number] Leslie Nevarez MD [address] D[facility] ([place]) [address] [facility] [place] [address] 07/15/2023 11:35:25 07/15/2023 12:36:02 Seborrheic keratosis 952653816 L82.1 History of malignant neoplasm of skin 088021227 Z85.828 Rosacea 315370801 L71.9 History of actinic keratosis 9814328504 104 Z87.2 [id number] Shubham Heath MD [address] [facility] ([place]) [address], [place] [address] 12/28/2023 11:20:13 12/28/2023 13:23:10 Pain of right shoulder region 1780066337 M25.511 Cervical radiculopathy 76086146 M54.12 Calcific t endinitis of right shoulder 3601750156 95323 M75.31 Degenerati on of cervical intervertebral disc 68292148 M50.322 Health Concerns Section Related Observation LastModified by Organization Detai ls LastModified Time None Recorded Concern Status LastModified by Organization Details LastModified Time None Recorded Advance Directives Directive None Recorded Payers Encounter Date Sequence Insurance Name Policy Number Policy Schmidt Covered Member ID Schmidt Member ID Guarantor Name 07/15/2023 1 [place] Sera Shaffer [id number] Sera Shaffer 07/15/2023 2 [facility] [employer] - PLAN F (MEDICARE SUPPLEMENT) Sera Hardydler [id number] Sera Hardydler 12/28/2023 1 [place] Sera Hardydler [id number] Sera Hardydler 12/28/2023 2 [facility] [employer] - PLAN F (MEDICARE SUPPLEMENT) Sera Hardydler [id number] Sera Shaffer Notes Date Note Type Note Provider Name and Address Organization Details Recorded Time 07/15/2023 text/html Pt presents toda y for TBSE. Hx NMSC. Pt reports issues with dryness and rosacea on her face, she deferred total skin exam. Intertrigo- keto cream and hydorcortisone Leslie Nevarez MD [address] [facility], [place], [address], [facility] 07/15/2023 12:55:42 OBGyn Episode No OBEpisode recorded.
--- OUTSIDE RECORDS SUMMARY | 2024-01-27 09:06 | XMS_ITS | Continuity of Care Document ---
Author Organization [facility], [address] [place] [address] [place] Address [address] [place] [address] Care Team Providers Care Box Lining Machine Feeder Name Role Phone HI ROLON Primary Care Provider [phone] Assessment Encounter Date Assessment Date Assessment LastModified by Organization Details LastModified Time 12/28/2023 12/28/2023 SUBJECTIVE: 88-year-old here for walk-in [...] of her right hand. She went to [facility] over the weekend. They diagnosed [...] does have a pacemaker. It is a [employer] that is MRI compatible. However, one of the leads is not a [employer] lead and so they do not know [...] of her shoulder that were done as [facility]. She does have evidence of calcific [...] if we can get approval for MRI. [facility] [email or web address] Not available 12/28/2023 23:59:16 Plan of Treatment Reminders Order Date Submit Date Provider Last Modified By Organization Details Last Modified Time Details Appointments None recorded. Lab None recorded. Referral physical therapist referral - Evaluate and Treat Cervical radiculopat hy/Right shoulder painModalit ies/Range of Motion/Trac tion 2023 024 ALAINA Not available 21:05:16 Procedures None recorded. Surgeries None recorded. Imaging XR, cervical spine, 2 or 3 view 2023 024 [facility] Only - [facility] Radiology, [address], [place], [address], 4 15:01:24 Medication Orders prednisone 10 mg tablet 2023 024 [id number], [address] [place], [place], [id number], 4 15:01:24 cyclobenzap rine 10 mg tablet 2023 024 [id number], [address], [place], [id number], 4 15:01:24 Patient TargetsNo targets recorded. Patient InstructionsNo [...] cholo spine , 2 or [address] [address] Teleph one [phone] Name: Boris Mcmullen 1922Ex am Date: 2023 [...] ality identi fied. 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 Electr onical ly signed in [place]zier cribe by: CHAPO ALVAREZ MD on: 4 11:24 AM cc: Page PAGE 1 of NUMPAG ES 1 [facility] - [facility] Radiology [address] [place] [address], [address], 12/28/2023 15:02:15 Result Notes None recorded. Problems Name Problem SNOMED Code Status Onset Date Resolution Date Notes Provider Name and Address Organization Details Recorded Time Pain of right shoulder joint 098895968223 13290 [facility] 4 11:51:17 Pain of right shoulder region Active 2023 Angie Plascencia [facility] 4 11:51:28 Cervical radiculop athy 63004171 Active 2023 Angie Plascencia [facility] 4 12:38:50 Calcific tendiniti s of left shoulder 534899430472 108 Active 2023 Marcelina [facility] 4 19:16:05 Calcific tendiniti s of right shoulder 870013328873 107 Active 2023 Marcelina [facility] 4 19:16:10 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 93141073 Active 2023 Marcelina [facility] 4 19:16:38 Actinic keratosis 480614612 Active 2023 Radhika Adorno [facility] 4 11:11:22 Dry skin dermatiti s 096677993 Active 2023 [facility] 4 11:13:35 Rosacea 196979001 Active 2023 [facility] 4 11:13:42 Multiple benign melanocyt ic nevi 268052673 Active 2023 Left & Right upper extremity [facility] 4 11:14:03 Seborrhei c keratosis 599607506 Active 2023 [facility] 4 11:14:10 Solar lentigo 52148270 Active 2023 [facility] 4 11:14:16 Intertrig o 23409790 Active 2023 [facility] 4 11:14:24 Severe dry skin 542810713 Active 2023 [facility] 4 11:52:57 Melanocyt ic nevus of right upper limb 881598705 Active 2023 [facility] 4 11:53:14 Melanocyt ic nevus of right lower limb 426166167859 108 Active 2023 [facility] 4 11:53:18 Lentigo - freckle 291205748 Active 2023 [facility] 4 11:54:27 Problem Notes None recorded. Procedures Surgical History Date Name Laterality Status Provider Name and Address Organization Details Recorded Time excision of malignant neoplasm completed Selene Hardin [facility] 07/15/2023 10:01:24 Imaging Results None recorded. Procedure Notes None recorded. Medical Equipment None Reported. Allergies Allergen ID Allergen Name Allergen Category Reaction Reaction Severity Criticality Documentation Date Start Date Code Code System Note Provider Name and Address Organization Details Recorded Time [id number] 761358024 3252686s0 2824e Levaquin medicatio n Not available Not available Not available 03/11/20232017 12017 2 RxNorm Not Available Not Available Not Available [id number] 039930154 7122353a7 2824e oxycodone medicatio n Not available Not available Not available 03/11/20232017 7804 RxNorm Not Available Not Available Not Available [id number] 491380854 7380693k4 2824e Medicinal product containin g penicilli n and acting as antibacte rial agent (product) medicatio n Not available Not available Not available 03/11/20232017 83208 05 SNOMED Not Available Not Available Not Available [id number] 967560162 3598566n9 2824e acetamino phen / hydrocodo ne medicatio n Not available Not available Not available 03/11/20232017 19174 2 RxNorm Not Available Not Available Not [...] 1 week off 2023 active last rx 07.09 Not Available Not Available Not Available metoprolol [...] Updated DateTime 4 160.02 cm 28 kg/m2 69436.5 9 g 70 /min 95 % 95 % [facility] 4 11:34:13 Social History None recorded. Functional Status None recorded. Mental Status None recorded. Family History Nothing Reported. Medical History No medical history recorded. Gynecological HistoryNo gynecological history recorded. Obstetrics History GPAL:G 0 P 0 0 0 0 Past Encounters Encounter ID Performer Location Encounter Start Date Encounter Closed Date Diagnosis/Indication Diagnosis SNOMED-CT Code Diagnosis ICD10 Code [id number] Shubham Heath MD [address] [facility] [address] [place] [address] 12/28/2023 11:20:13 12/28/2023 13:23:10 Pain of right shoulder region 0551136230 M25.511 Cervical radiculopathy 98798212 M54.12 Calcific t endinitis of right shoulder 4090892211 12023 M75.31 Degenerati on of cervical intervertebral disc 20095496 M50.322 Health Concerns Section Related Observation LastModified by Organization Detai ls LastModified Time None Recorded Concern Status LastModified by Organization Details LastModified Time None Recorded Payers Encounter Date Sequence Insurance Name Policy Number Policy Schmidt Covered Member ID Schmidt Member ID Guarantor Name 12/28/2023 1 [place] Sera Shaffer [id number] Sera Shaffer 12/28/2023 2 [employer] - PLAN F (MEDICARE SUPPLEMENT) Sera Shaffer [id number] Sera Shaffer OBGyn Episode No OBEpisode recorded.
--- OUTSIDE RECORDS SUMMARY | 2024-01-27 09:06 | XMS_ITS | Patient Health Record ---
Author Organization [facility] Address [address] [place], [place] [id number] Care Team Providers Care Dipper Machine Operator Name Role Phone Qasim Garrett Unavailable Unavailable RANDY FLOWERS Unavailable [phone] Allergies Allergen (clinical drug ingredient) Drug/Non Drug Allergy documented on EMR Reaction Allergy Type Onset Date Status Opioid Analgesics (uncoded) Unknown Allergy 10/17/2021 active Substance with penicillin structure and antibacterial mechanism of action (substance) Penicillins Unknown Drug Allergy 10/17/2021 active Reason For Referral No Information Vital Signs Height-cm 162.56 cm 06/18/2023 Weight-kg 65.77 kg 06/18/2023 Height 64.00 in 06/18/2023 Weight 145 lbs 06/18/2023 BMI 24.89 kg/m2 06/18/2023 Encounters Encounter Location Date Provider Diagnosis [address] [id number] 01/21/2024 RANDY FLOWERS Other hammer toe(s) (acquired), right foot M20.41 ; Tinea unguium B35.1 ; Other hammer toe(s) (acquired), left foot M20.42 ; Pain in right toe(s) M79.674 ; Pain in left toe(s) M79.675 ; 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, bilateral legs I70.203 ; Acquired keratosis [keratoderma] palmaris et plantaris L85.1 and Localized edema R60.[address] [id number] 03/19/2023 RANDY FLOWERS Other hammer toe(s) (acquired), right foot M20.41 ; Tinea unguium B35.1 ; Other hammer toe(s) (acquired), left foot M20.42 ; Pain in right toe(s) M79.674 ; Pain in left toe(s) M79.675 and 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, bilateral legs I70.203 [address] [address] [address] [place], [place] [id number] 06/18/2023 RANDY FLOWERS Other hammer toe(s) (acquired), right foot M20.41 ; Tinea unguium B35.1 ; Other hammer toe(s) (acquired), left foot M20.42 ; Pain in right toe(s) M79.674 ; Pain in left toe(s) M79.675 and 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, bilateral legs I70.[address] [id number] 09/17/2023 RANDY FLOWERS Other hammer toe(s) (acquired), right foot M20.41 ; Tinea unguium B35.1 ; Other hammer toe(s) (acquired), left foot M20.42 ; Pain in right toe(s) M79.674 ; Pain in left toe(s) M79.675 and 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, bilateral legs I70.[address] [id number] 11/19/2023 RANDY FLOWERS Other hammer toe(s) (acquired), right foot M20.41 ; Tinea unguium B35.1 ; Other hammer toe(s) (acquired), left foot M20.42 ; Pain in right toe(s) M79.674 ; Pain in left toe(s) M79.675 ; 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 The patient was given education about shoe recommendations specific for the condition. The patient was educated about custom orthotics and how appropriate shoes and orthotics can prevent further worsening of the deformity. The patient was educated about how bad shoe habits can worsen the condition. NSAIDS, P.T., injections and other conservative treatments were discussed. Both surgical and non surgical treatments were discussed, but conservative options were emphasized. 03/19/2023 Tinea unguium (ICD-10 - B35.1) Aseptic debridement of elongated thickened nails x 1 using sterile nippers, nails were debrided in length and thickness by 30% utilizing a nail nipper without incident. The patient was educated regarding all treatment options that include topical and oral antifungal treatments. I discussed the options of taking a sample of the nail to confirm diagnosis. Nail clippings were not sent for pathology analysis. The patient was educated why and how the fungal infection evolved in their feet and the patient was given information regarding how to prevent further infection. The patient was told to keep feet dry and change socks. The patient was told to be careful with old shoes and excessive sweating. The patient was educated regarding both OTC and prescription treatments. 06/18/2023 Tinea unguium (ICD-10 - B35.1) Aseptic debridement of elongated thickened nails x 1 using sterile nippers, nails were debrided in length and thickness by 30% utilizing a nail nipper without incident. The patient was educated regarding all treatment options that include topical and oral antifungal treatments. I discussed the options of taking a sample of the nail to confirm diagnosis. Nail clippings were not sent for pathology analysis. The patient was educated why and how the fungal infection evolved in their feet and the patient was given information regarding how to prevent further infection. The patient was told to keep feet dry and change socks. The patient was told to be careful with old shoes and excessive sweating. The patient was educated regarding both OTC and prescription treatments. 06/18/2023 Other hammer toe(s) (acquired), right foot (ICD-10 - M20.41) The patient was educated regarding how to mechanically stabilize their deformity. The patient was given education about shoe recommendations specific for the condition. The patient was educated about custom orthotics and how appropriate shoes and orthotics can prevent further worsening of the deformity. The patient was educated about how bad shoe habits can worsen the condition. NSAIDS, P.T., injections and other conservative treatments were discussed. Both surgical and non surgical treatments were discussed, but conservative options were emphasized. 09/17/2023 Other hammer toe(s) (acquired), right foot (ICD-10 - M20.41) The patient was educated regarding how to mechanically stabilize their deformity. The patient was given education about shoe recommendations specific for the condition. The patient was educated about custom orthotics and how appropriate shoes and orthotics can prevent further worsening of the deformity. The patient was educated about how bad shoe habits can worsen the condition. NSAIDS, P.T., injections and other conservative treatments were discussed. Both surgical and non surgical treatments were discussed, but conservative options were emphasized. 09/17/2023 Tinea unguium (ICD-10 - B35.1) Aseptic debridement of elongated thickened nails x 1 using sterile nippers, nails were debrided in length and thickness by 30% utilizing a nail nipper without incident. The patient was educated regarding all treatment options that include topical and oral antifungal treatments. I discussed the options of taking a sample of the nail to confirm diagnosis. Nail clippings were not sent for pathology analysis. The patient was educated why and how the fungal infection evolved in their feet and the patient was given information regarding how to prevent further infection. The patient was told to keep feet dry and change socks. The patient was told to be careful with old shoes and excessive sweating. The patient was educated regarding both OTC and prescription treatments. 11/19/2023 Tinea unguium (ICD-10 - B35.1) Aseptic debridement of elongated thickened nails x 10 using sterile nippers, nails were debrided in length and thickness by 30% utilizing a nail nipper without incident. The patient was educated regarding all treatment options that include topical and oral antifungal treatments. I discussed the options of taking a sample of the nail to confirm diagnosis. Nail clippings were not sent for pathology analysis. The patient was educated why and how the fungal infection evolved in their feet and the patient was given information regarding how to prevent further infection. The patient was told to keep feet dry and change socks. The patient was told to be careful with old shoes and excessive sweating. The patient was educated regarding both OTC and prescription treatments. 11/19/2023 Other hammer toe(s) (acquired), right foot (ICD-10 - M20.41) The patient was educated regarding how to mechanically stabilize their deformity. The patient was given education about shoe recommendations specific for the condition. The patient was educated about custom orthotics and how appropriate shoes and orthotics can prevent further worsening of the deformity. The patient was educated about how bad shoe habits can worsen the condition. NSAIDS, P.T., injections and other conservative treatments were discussed. Both surgical and non surgical treatments were discussed, but conservative options were emphasized. 01/21/2024 Tinea unguium (ICD-10 - B35.1) Aseptic debridement of elongated thickened nails x 10 using sterile nippers, nails were debrided in length and thickness by 30% utilizing a nail nipper without incident. The patient was educated regarding all treatment options that include topical and oral antifungal treatments. I discussed the options of taking a sample of the nail to confirm diagnosis. Nail clippings were not sent for pathology analysis. The patient was educated why and how the fungal infection evolved in their feet and the patient was given information regarding how to prevent further infection. The patient was told to keep feet dry and change socks. The patient was told to be careful with old shoes and excessive sweating. The patient was educated regarding both OTC and prescription treatments. 01/21/2024 Other hammer toe(s) (acquired), right foot (ICD-10 - M20.41) The patient was educated regarding how to mechanically stabilize their deformity. The patient was given education about shoe recommendations specific for the condition. The patient was educated about custom orthotics and how appropriate shoes and orthotics can prevent further worsening of the deformity. The patient was educated about how bad shoe habits can worsen the condition. NSAIDS, P.T., injections and other conservative treatments were discussed. Both surgical and non surgical treatments were discussed, but conservative options were emphasized. 01/21/2024 Other hammer toe(s) (acquired), left foot (ICD-10 - M20.42) 11/19/2023 Other hammer toe(s) (acquired), left foot (ICD-10 - M20.42) 09/17/2023 Other hammer toe(s) (acquired), left foot (ICD-10 - M20.42) 06/18/2023 Other hammer toe(s) (acquired), left foot (ICD-10 - M20.42) 03/19/2023 Other hammer toe(s) (acquired), left foot (ICD-10 - M20.42) 03/19/2023 Pain in right toe(s) (ICD-10 - M79.674) 06/18/2023 Pain in right toe(s) (ICD-10 - M79.674) 09/17/2023 Pain in right toe(s) (ICD-10 - M79.674) 11/19/2023 Pain in right toe(s) (ICD-10 - M79.674) 01/21/2024 Pain in right toe(s) (ICD-10 - M79.674) 01/21/2024 Pain in left toe(s) (ICD-10 - M79.675) 11/19/2023 Pain in left toe(s) (ICD-10 - M79.675) 09/17/2023 Pain in left toe(s) (ICD-10 - M79.675) 06/18/2023 Pain in left toe(s) (ICD-10 - M79.675) 03/19/2023 Pain in left toe(s) (ICD-10 - M79.675) 06/18/2023 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, bilateral legs (ICD-10 - I70.203) Patient educated on risks and aggravating factors of PVD, including conservative treatment options such as a diet and exercise regimen to aid in slowing progression of vascular disease 03/19/2023 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, bilateral legs (ICD-10 - I70.203) Patient educated on risks and aggravating factors of PVD, including conservative treatment options such as a diet and exercise regimen to aid in slowing progression of vascular disease 11/19/2023 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, bilateral legs (ICD-10 - I70.203) Patient educated on risks and aggravating factors of PVD, including conservative treatment options such as a diet and exercise regimen to aid in slowing progression of vascular disease 09/17/2023 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, bilateral legs (ICD-10 - I70.203) Patient educated on risks and aggravating factors of PVD, including conservative treatment options such as a diet and exercise regimen to aid in slowing progression of vascular disease 01/21/2024 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 After removal of overlying extensive hyperkeratosis, healthy tissue was noted and care was taken to assure that no undermining or probing was present. It should be noted that no probing was noted and no infection or drainage was noted. 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 After removal of overlying extensive hyperkeratosis, healthy tissue was noted and care was taken to assure that no undermining or probing was present. It should be noted that no probing was noted and no infection or drainage was noted. 11/19/2023 Contusion of right lesser toe(s) without damage to nail, subsequent encounter (ICD-10 - S90.121D) 01/21/2024 Localized edema (ICD-10 - R60.0) 11/19/2023 Localized edema (ICD-10 - R60.0) 11/19/2023 Other - instructed patient to avoid walking barefoot, monitor bruising as nail continues to grow out, nail is not loose at this time, manage swelling to digit with epsom salt warm water soaks. Plan Of Treatment Next Appt Details Provider Name:RANDY BEANKELVIN, 03/24/2024 01:30:00 PM, [address], [place], [id number], Insurance Providers Payer Name Payer Address Payer Phone Subscriber Number Group Number Insured Name Patient Relationship to Insured Coverage Start Date Coverage End Date Medicare Part B [place] [address] [place] [phone] [id number] RAKAN SHAW Self - patient is the insured [facility] Insurance [address] [address] [place] [id number] RAKAN SHAW Self - patient is the insured
--- OUTSIDE RECORDS SUMMARY | 2024-01-27 09:06 | XMS_ITS ---
Author Organization [facility] Address [address] [place], [place] [address] Care Team Providers Care Enamel Drier Name Role Phone LuannwinnieQasim Unavailable Unavailable RANDY FLOWERS Unavailable [phone] Allergies Allergen (clinical drug ingredient) Drug/Non Drug Allergy documented on EMR Reaction Allergy Type Onset Date Status Opioid Analgesics (uncoded) Unknown Allergy 10/17/2021 active Substance with penicillin structure and antibacterial mechanism of action (substance) Penicillins Unknown Drug Allergy 10/17/2021 active REASON FOR VISIT *General care Encounters Encounter Location Date Provider Diagnosis [address] [id number] 09/17/2023 RANDY FLOWERS Other hammer toe(s) (acquired), right foot M20.41 ; Tinea unguium B35.1 ; Other hammer toe(s) (acquired), left foot M20.42 ; Pain in right toe(s) M79.674 ; Pain in left toe(s) M79.675 and Unspecified atherosclerosis of [place] arteries of extremities, bilateral legs I70.203 Assessments Encounter Date Diagnosis (ICD Code) Assessment Notes Treatment Notes Treatment Clinical Notes Section Notes 09/17/2023 Other hammer toe(s) (acquired), right foot [...] educated regarding both OTC and prescription treatments. 09/17/2023 Other hammer toe(s) (acquired), left foot (ICD-10 - M20.42) 09/17/2023 Pain in right toe(s) (ICD-10 - M79.674) 09/17/2023 Pain in left toe(s) (ICD-10 - M79.675) 09/17/2023 Unspecified atherosclerosis of [place] arteries of extremities, bilateral legs (ICD-10 - I70.203) Patient educated on risks and aggravating factors of PVD, including conservative treatment options such as a diet and exercise regimen to aid in slowing progression of vascular disease Plan Of Treatment Treatment Notes Assessment Notes Other hammer toe(s) (acquired), right fo ot The patient was educated regarding how to [...] were discussed, but conservative options were emphasized. Tinea unguium Aseptic debridement of elongated thickened nails x [...] educated regarding both OTC and prescription treatments. Unspecified atherosclerosis of [place] arteries of extremities, bilateral legs Patient educated on risks and aggravating factors of PVD, including conservative treatment options such as a diet and exercise regimen to aid in slowing progression of vascular disease Next Appt Details Follow Up: 3 Months, Reason: Provider Name:RANDY FLOWERS, 03/24/2024 01:30:00 PM, [address], [place], [id number], Progress Notes * RAKAN SHAWDOB:[birth year] (88 yo F)Acc No.[id number]:09/17/2023 Patient:?LYNDSEYCHRISTOPHER RAKAN Provider:?RANDY FLOWERS :1935???Age:88 Y???Sex:Female D ate:09/17/2023 Address:[address] [place], [place] [id number] Subjective: * Chief Complaints: * ???1. *General care. * HPI: ???HPI:?General care?Patient presents to the office for at risk foot care. Patient states that their nails are thickened, elongated and painful. Patient states that it is aggravated by shoe gear. Onset is gradual. Patient denies being diabetic., Patient is taking prescription blood thinners., Date last seen by Dr. Garrett was 08/2023., Initials [facility].? * ROS:?General / Constitutional:?Patient denies?weakness.?Respiratory:?Patient denies?chronic cough, shortness of breath, sputum production.?Cardiovascular:?Patient denies?chest pain, history of [place], irregular heartbeat.?Musculoskeletal:?Patient complains of?hammertoes.?Peripheral Vascular:?Patient denies?blanching of skin, cold extremities, decreased sensation in extremities.?Skin:?Patient complains of?nail changes, discoloration.?Neurologic:?Patient denies?dizziness, gait abnormality, headache.? * Medical History:? * Family History:?Father: PRN - Father: :: Heart disease,,known absent .?Mother: PRN - Mother: :: Diabetes,,known absent , :: Heart disease,,known absent .?Brother: SIB - Brother: :: Heart disease,,known absent , :: Diabetes,,known absent .?Sister: SIB - Sister: :: Diabetes,,known absent .? * Social History:?Migrated Social History:?Migrated Social History: History of tobacco use : , Smoking Status : Former tobacco user. * Allergies:?Opioid Analgesics : Allergy - Onset Date 10/17/2021, Penicillins: Allergy - Onset Date 10/17/2021. Objective: * Examination: ???Physical Examination: ???Vascular: Dorsalis Pedis pulse noted at 1/4 right foot and 1/4 left foot and Posterior Tibial pulse noted at 1/4 right foot and 1/4 left foot, Capillary refill times noted to be less than three seconds x ten, Temperature gradient noted to be warm to cool to bilateral foot, pedal hair present to bilateral foot and no varicosities are noted ?Dermatologic: there are no open lesions, no signs of active clinical infection, no erythema noted, no ecchymoses, nails are elongated thickened and dystrophic with subungual debris to left hallux ?Musculoskeletal: there is pain to palpation onto nail plate left hallux, no calf pain noted bilaterally, arch height noted at 2/5 non-weight bearing bilaterally, first metatarsophalangeal joint range of motion 30 deg non-weight bearing bilaterally, flexible fifth digit hammer toe deformity noted to bilateral foot reducible with kelikian push up test ?Neurology: protective sensation intact to light touch bilateral digits one through five, vibratory sensation intact to first metatarsophalangeal joint bilaterally. Assessment: * Assessment: 1.?Tinea unguium - B35.1 (Pr imary)?2.?Other hammer toe(s) (acquired), right foot - M20.41?3.?Other hammer toe(s) (acquired), left foot - M20.42?4.?Pain in right toe(s) - M79.674?5.?Pain in left toe(s) - M79.675?6.?Unspecified atherosclerosis of [place] arteries of extremities, bilateral legs - I70.203? Plan: * Treatment: 2.?Other hammer toe(s) (acqu ired), right foot? Notes: The patient was educated regarding how to [...] were discussed, but conservative options were emphasized. ?? 3.?Unspecified atheroscleros is of [place] arteries of extremities, bilateral legs? Notes: Patient educated on risks and aggravating factors of PVD, including conservative treatment options such as a diet and exercise regimen to aid in slowing progression of vascular disease ?? * Procedure Codes:?16992 DEBRI DE NAIL, 6 OR MORE, Modifiers: Q8 * Follow Up:?3 Months * Billing Information: * Visit Code:? * Procedure Codes:? 14503 DEBRIDE NAIL, 6 OR MORE. 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 Patient states that their nails are thickened, elongated and painful. Patient states that it is aggravated by shoe gear. Onset is gradual. Patient denies being diabetic., Patient is taking prescription blood thinners., Date last seen by Dr. Garrett was 08/2023., Initials [facility] Examination Category Sub-Category Detail Notes Category Not es Physical Examination Vascular: Dorsalis Pedis pulse noted at 1/4 right foot and 1/4 left foot and Posterior Tibial pulse noted at 1/4 right foot and 1/4 left foot, Capillary refill times noted to be less than three seconds x ten, Temperature gradient noted to be warm to cool to bilateral foot, pedal hair present to bilateral foot and no varicosities are noted Dermatologic: there are no open lesions, no signs of active clinical infection, no erythema noted, no ecchymoses, nails are elongated thickened and dystrophic with subungual debris to left hallux Musculoskeletal: there is pain to palpation onto nail plate left hallux, no calf pain noted bilaterally, arch height noted at 2/5 non-weight bearing bilaterally, first metatarsophalangeal joint range of motion 30 deg non-weight bearing bilaterally, flexible fifth digit hammer toe deformity noted to bilateral foot reducible with kelikian push up test Neurology: protective sensation intact to light touch bilateral digits one through five, vibratory sensation intact to first metatarsophalangeal joint bilaterally
--- OUTSIDE RECORDS SUMMARY | 2024-01-27 09:06 | XMS_ITS ---
Author Organization [facility] Address [address] [place], [place] [address] Care Team Providers Care Project Development Director Name Role Phone Qasim Garrett Unavailable Unavailable RANDY FLOWERS Unavailable [phone] Allergies Allergen (clinical drug ingredient) Drug/Non Drug Allergy documented on EMR Reaction Allergy Type Onset Date Status Opioid Analgesics (uncoded) Unknown Allergy 10/17/2021 active Substance with penicillin structure and antibacterial mechanism of action (substance) Penicillins Unknown Drug Allergy 10/17/2021 active REASON FOR VISIT *General care Encounters Encounter Location Date Provider Diagnosis [address] [id number] 11/19/2023 RANDY FLOWERS Other hammer toe(s) (acquired), right foot M20.41 ; Tinea unguium B35.1 ; Other hammer toe(s) (acquired), left foot M20.42 ; Pain in right toe(s) M79.674 ; Pain in left toe(s) M79.675 ; Unspecified atherosclerosis of [place] arteries of extremities, bilateral legs I70.203 ; Acquired keratosis [keratoderma] palmaris et plantaris L85.1 ; Contusion of right lesser toe(s) without damage to nail, subsequent encounter S90.121D and Localized edema R60.0 Assessments Encounter Date Diagnosis (ICD Code) Assessment Notes Treatment Notes Treatment Clinical Notes Section Notes 11/19/2023 Other hammer toe(s) (acquired), right foot [...] were discussed, but conservative options were emphasized. 11/19/2023 Tinea unguium (ICD-10 - B35.1) Aseptic [...] prescription treatments. 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 Plan Of Treatment Treatment Notes Assessment Notes [...] OTC and prescription treatments. 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 After removal of overlying extensive hyperkeratosis, healthy tissue was noted and care was taken to assure that no undermining or probing was present. It should be noted that no probing was noted and no infection or drainage was noted. Other - instructed patient to avoid walking barefoot, monitor bruising as nail continues to grow out, nail is not loose at this time, manage swelling to digit with epsom salt warm water soaks. Next Appt Details Follow Up: 3 Months, Reason: Provider Name:RANDY FLOWERS, 03/24/2024 01:30:00 PM, [address], [place], [id number], Progress Notes * RAKAN SHAWDOB:[birth year] (88 yo F)Acc No.[id number]:11/19/2023 Patient:?RAKAN SHAW Provider:?RANDY FLOWERS :1935???Age:88 Y???Sex:Female D ate:11/19/2023 Address:[address] [place] [address], [facility] Subjective: * Chief Complaints: * ???1. *General care. * HPI: ???HPI:?General care?Patient presents to the office for at risk foot care. Patient states that their nails are thickened, elongated and painful. Patient states that it is aggravated by shoe gear. Onset is gradual. Patient denies being diabetic., Patient is taking prescription blood thinners., Date last seen by Dr. Garrett was 10/2023., Initials [facility] ?Patient states she had stubbed and injured her right foot second toe about a week ago and has noticed bruising and swelling to the area since then with some tenderness,?.? * ROS:?General / Constitutional:?Patient denies?weakness.?Respiratory:?Patient denies?chronic cough, shortness of breath, sputum production.?Cardiovascular:?Patient denies?chest pain, history of [place], irregular heartbeat.?Musculoskeletal:?Patient complains of?hammertoes.?Peripheral Vascular:?Patient denies?blanching of skin, cold extremities, decreased sensation in extremities.?Skin:?Patient complains of?nail changes, discoloration.?Neurologic:?Patient denies?dizziness, gait abnormality, headache.? * Medical History:? * Allergies:?Opioid Analgesics : Allergy - Onset Date 10/17/2021, Penicillins: Allergy - Onset Date 10/17/2021. Objective: * Vitals:? * Examination: ???Physical Examination: ???Vascular: Dorsalis Pedis [...] of active clinical infection, no erythema noted, ecchymoses is noted to right foot second digit nail with surrounding swelling, nails are elongated thickened and dystrophic with subungual debris x ten, diffuse plantar xerosis noted to bilateral foot with no signs of annular scaling noted, hyperkeratotic tissue noted plantar medial hallux bilateral foot Musculoskeletal: there is pain to palpation onto nail plate x ten, no calf pain noted bilaterally, arch height noted at 2/5 non-weight bearing bilaterally, first metatarsophalangeal joint range of motion 30 deg non-weight bearing bilaterally Neurology: protective sensation intact to light touch bilateral digits one through five, vibratory sensation intact to first metatarsophalangeal joint bilaterally. Assessment: * Assessment: 1.?Tinea unguium - B35.1 (Pr imary)???2.?Other hammer toe(s) (acquired), right foot - M20.41???3.?Other hammer toe(s) (acquired), left foot - M20.42???4.?Pain in right toe(s) - M79.674???5.?Pain in left toe(s) - M79.675???6.?Unspecified atherosclerosis of [place] arteries of extremities, bilateral legs - I70.203???7.?Acquired keratosis [keratoderma] palmaris et plantaris - L85.1???8.?Contusion of right lesser toe(s) without damage to nail, subsequent encounter - S90.121D???9.?Localized edema - R60.0??? Plan: * Treatment: 2.?Other hammer toe(s) (acqu [...] were emphasized. ?? 3.?Unspecified atheroscleros is of [place] arteries of extremities, bilateral legs? Notes: Patient educated on risks and aggravating factors of PVD, including conservative treatment options such as a diet and exercise regimen to aid in slowing progression of vascular disease ?? 4.?Acquired keratosis [kerat oderma] palmaris et plantaris? 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 After removal of overlying extensive hyperkeratosis, healthy tissue was noted and care was taken to assure that no undermining or probing was present. It should be noted that no probing was noted and no infection or drainage was noted. ?? 5.?Others? Notes: - instructed patient to avoid walking barefoot, monitor bruising as nail continues to grow out, nail is not loose at this time, manage swelling to digit with epsom salt warm water soaks.?? * Procedure Codes:?83585 TRIM SKIN LESIONS, 2 TO 4, Modifiers: Q8 , 31698 DEBRIDE NAIL, 6 OR MORE, Modifiers: 59 , Q8 * Follow Up:?3 Months * Billing Information: * Visit Code:? 47259 Office Visit, Est Pt., Level 3. * Procedure Codes:? 26831 TRIM SKIN LESIONS, 2 TO 4. Modifiers: Q8 20115 DEBRIDE NAIL, 6 OR MORE. Modifiers: 59, Q8 * Sign off status: Completed true * Provider:PIERRE FLOWERS Date:?11/19/2023 Generated for Daniel mar/Nannette/Kennitting on:?01/27/2024 09:06 AM INTERLIBRARY LOAN SPECIALIST History and Physical Notes * HPI (History [...] Date last seen by Dr. Garrett was 10/2023., Initials mcaPatient states she had stubbed and injured her right foot second toe about a week ago and has noticed bruising and swelling to the area since then with some tenderness, Examination Category Sub-Category Detail Notes Category Not [...] of active clinical infection, no erythema noted, ecchymoses is noted to right foot second digit nail with surrounding swelling, nails are elongated thickened and dystrophic with subungual debris x ten, diffuse plantar xerosis noted to bilateral foot with no signs of annular scaling noted, hyperkeratotic tissue noted plantar medial hallux bilateral foot Musculoskeletal: there is pain to palpation onto nail plate x ten, no calf pain noted bilaterally, arch height noted at 2/5 non-weight bearing bilaterally, first metatarsophalangeal joint range of motion 30 deg non-weight bearing bilaterally Neurology: protective sensation intact to light touch bilateral digits one through five, vibratory sensation intact to first metatarsophalangeal joint bilaterally.
--- OUTSIDE RECORDS SUMMARY | 2024-01-27 09:06 | XMS_ITS ---
Author Organization [facility] Address [address] [place], [place] [address] Care Team Providers Care Vending Machine Technician Name Role Phone Qasim Garrett Unavailable Unavailable RANDY FLOWERS Unavailable [phone] Allergies Allergen (clinical drug ingredient) Drug/Non Drug Allergy documented on EMR Reaction Allergy Type Onset Date Status Opioid Analgesics (uncoded) Unknown Allergy 10/17/2021 active Substance with penicillin structure and antibacterial mechanism of action (substance) Penicillins Unknown Drug Allergy 10/17/2021 active REASON FOR VISIT *General care Encounters Encounter Location Date Provider Diagnosis [address] [id number] 01/21/2024 RANDY FLOWERS Other hammer toe(s) (acquired), right foot M20.41 ; Tinea unguium B35.1 ; Other hammer toe(s) (acquired), left foot M20.42 ; Pain in right toe(s) M79.674 ; Pain in left toe(s) M79.675 ; Unspecified atherosclerosis of [place] arteries of extremities, bilateral legs I70.203 ; Acquired keratosis [keratoderma] palmaris et plantaris L85.1 and Localized edema R60.0 Assessments Encounter Date Diagnosis (ICD Code) Assessment Notes Treatment Notes Treatment Clinical Notes Section Notes 01/21/2024 Other hammer toe(s) (acquired), right foot [...] prescription treatments. 01/21/2024 Other hammer toe(s) (acquired), left foot (ICD-10 - M20.42) 01/21/2024 Pain in right toe(s) (ICD-10 - M79.674) 01/21/2024 Pain in left toe(s) (ICD-10 - M79.675) 01/21/2024 Unspecified atherosclerosis of [place] arteries of extremities, bilateral legs (ICD-10 - [...] and no infection or drainage was noted. 01/21/2024 Localized edema (ICD-10 - R60.0) Plan Of Treatment Treatment Notes Assessment Notes [...] OTC and prescription treatments. Unspecified atherosclerosis of [place] arteries of extremities, bilateral legs Patient educated [...] and no infection or drainage was noted. Next Appt Details Follow Up: 3 Months, Reason: Provider Name:RANDY FLOWERS, 03/24/2024 01:30:00 PM, [address] [place], [place], [id number], Progress Notes * RAKAN SHAWDOB:[birth year] (88 yo F)Acc No.[id number]:01/21/2024 Patient:?RAKAN SHAW Provider:?RANDY FLOWERS :1935???Age:88 Y???Sex:Female D ate:01/21/2024 Address:[address] [place] [address], [place] [id number] Subjective: * Chief Complaints: * ???1. *General care. * HPI: ???HPI:?General care?Patient presents to the office for at risk foot care. Patient states that their nails are thickened, elongated and painful. Patient states that it is aggravated by shoe gear. Onset is gradual. Patient denies being diabetic., Patient is taking prescription blood thinners., Date last seen by Dr. Garrett was 01/2024., Initials [facility].? * ROS:?General / Constitutional:?Patient denies?weakness.?Respiratory:?Patient denies?chronic cough, shortness of breath, sputum production.?Cardiovascular:?Patient denies?chest pain, history of [place], irregular heartbeat.?Musculoskeletal:?Patient complains of?hammertoes.?Peripheral Vascular:?Patient denies?blanching of [...] in left toe(s) - M79.675???6.?Unspecified atherosclerosis of [place] arteries of extremities, bilateral legs - I70.203???7.?Acquired keratosis [keratoderma] palmaris et plantaris - L85.1???8.?Localized edema - R60.0??? Plan: * Treatment: 2.?Other [...] were emphasized. ?? 3.?Unspecified atheroscleros is of [place] arteries of extremities, bilateral legs? Notes: Patient [...] no infection or drainage was noted. ?? * Procedure Codes:?92956 DEBRI DE NAIL, 6 OR MORE, Modifiers: Q8 , 59, 98490 TRIM SKIN LESIONS, 2 TO 4, Modifiers: Q8 * Follow Up:?3 Months * Billing Information: * Visit Code:? * Procedure Codes:? 79538 DEBRIDE NAIL, 6 OR MORE. Modifiers: Q8, 59 75968 TRIM SKIN LESIONS, 2 TO 4. Modifiers: Q8 * Electronic signature of AILYN FLOWERS DPM on 01/27/2024 at 09:05 AM V[employer]UUM KETTLE COOK Sign off status: Pending * Provider:PIERRE FLOWERS Date:?01/21/2024 Generated for Daniel mar/Nannette/Nas on:?01/27/2024 09:05 AM VACUUM KETTLE COOK History and Physical Notes * HPI (History [...] Date last seen by Dr. Garrett was 01/2024., Initials [facility] Examination Category Sub-Category Detail Notes [...]
== END 2024-01-23 11:30 | disposition home or self-care (01) ==
LOC: CHSTREATRM 11:05
PROVIDERS: PCP Family Medicine; Visit Provider Family Medicine
DX: N39.0 Urinary tract infection, site not specified (principal)
CPT/HCPCS: 96372; J0696; J2003

== ENCOUNTER 2024-02-05 09:54 | Emergency (ER) | payer MEDICARE, SELFPAY ==
[2024-02-05] VITALS (7 sets, daily range): BP systolic 134–150; BP diastolic 71–93; PULSE 69–70; RESP 16–18; TEMP 36.3; O2SAT 96–99
--- NOTE | ~2024-02-05 | US_ITS ---
EXAMINATION: US venous doppler [facility] DATE: 02/05/2024 11:07 INDICATION: Bilateral lower limb swelling. TECHNIQUE: Grayscale ultrasound images without and with compression and Doppler ultrasound images of the bilateral lower extremity veins were obtained. COMPARISON: None. FINDINGS: The visualized portions of right common femoral vein, profunda (deep) femoral vein, femoral vein, pop liteal vein, peroneal veins, posterior tibial veins, and greater saphenous vein outflow are patent. The visualized portions of left common femoral vein, profunda femoral vein, femoral vein, popliteal v ein, peroneal veins, posterior tibial veins, and greater saphenous vein outflow are patent. IMPRESSION: 1. No deep venous thrombosis. Reviewed, dictated and finalized at location A. ICE SPRINKLER HELPER
--- NOTE | ~2024-02-05 | XR_ITS ---
EXAMINATION: XR chest 2V DATE: 02/05/2024 11:12 INDICATION: Bilateral lower limb edema. TECHNIQUE: Frontal and lateral views of the chest were obtained. COMPARISON: Chest 2 views 10/01/2022 FINDINGS: There is no pneumonia, pleural effusion, or pneumothorax. Cardiomegaly is noted. There is a left chest pacer with leads in right atrium, right ventricle, and coronary sinus. There are surgical clips in the abdomen. IMPRESSION: 1. Cardiomegaly. Reviewed, dictated and finalized at location A. ER PLAYER IMPRESSION: 1. Cardiomegaly.
--- NOTE | 2024-02-05 10:01 | ED.EXTPRO ---
HPI - Extremity Problem General Chief complaint: Extremity Problem,Nontraumatic Stated complaint: leg problems Time Seen by Provider: 02/05/24 10:01 Source: patient Mode of arrival: ambulatory Limitations: no limitations History of Present Illness HPI Narrative: 88-year-old white female complains of bilateral lower extremity leg swelling the past 2 and half days since [place]. she has increased her salt intake last couple days. Denies any shortness of breath chest pain difficulty breathing fever cough runny nose other swelling lumps or bumps bleeding or bruising dizziness or lightheadedness problems walking talking seeing or hearing voiding or stooling or any other complaints. Related Data Home Medications ?Medication ?Instructions ?Recorded ?Confirmed ?Last Taken ?Type aspirin 81 mg tablet,delayed 81 mg PO DAILY 03/27/19 02/05/24 01/23/24 History release (Mahnaz Low Dose Aspirin) rosuvastatin 40 mg tablet 40 mg PO HS 03/27/19 02/05/24 01/23/24 History sacubitril 24 mg-valsartan 26 mg 1 tablet PO BID 11/26/20 02/05/24 01/23/24 History tablet (Entresto) apixaban 5 mg tablet (Eliquis) 5 mg PO BID 04/23/21 02/05/24 01/23/24 History cyclosporine 0.05 % eye drops in a 1 drp EACH EYE BID 07/13/23 02/05/24 01/23/24 History dropperette (Restasis) [id number] 8 mg-folic 400 1 tablet PO DAILY 07/13/23 02/05/24 01/23/24 History mcg-K 50 mcg-lutein 300 mcg tablet (Centrum Silver Women) pantoprazole 40 mg tablet,delayed 40 mg PO Q12H PRN Acid Reflux 12/27/23 02/05/24 Unknown History release vibegron 75 mg tablet (Gemtesa) 75 mg PO DAILY 12/27/23 02/05/24 01/23/24 History Allergies Allergy/AdvReac Type Severity Reaction Status Date / Time Penicillins Allergy Severe Anaphylactic Verified 02/05/24 10:01 Shock hydrocodone AdvReac Severe NAUSEA AND Verified 02/05/24 10:01 VOMITING oxycodone AdvReac Severe Gastrointestinal Verified 02/05/24 10:01 Upset opiods AdvReac Severe Gastrointestinal Uncoded 02/05/24 10:01 Upset Review of Systems Review of Systems: All systems reviewed & are unremarkable except as noted in HPI and below PMFSH Past Medical History Medical History Heart failure with reduced ejection fraction Echocardiogram in February 2021 showed mild to moderately dilated left ventricle with mild concentric hypertrophy and moderately depressed global systolic function with an LVEF of 40 to 45% with a mild to moderately dilated right ventricle. Chronic kidney disease, stage 3 Dysphagia Nondiabetic gastroparesis Anastomotic stricture of stomach Pacemaker DVT (deep venous thrombosis) CHF (congestive heart failure) Complications of gastric bypass surgery History of pulmonary embolism GERD (gastroesophageal reflux disease) TIA (transient ischemic attack) Hypothyroidism Hypertension Hyperlipidemia Atrial fibrillation Acute intra-cranial hemorrhage Surgical History Surgical History History of gastric surgery History of gastric bypass History of left knee replacement H/O craniotomy AICD present, double chamber Status post biventricular pacemaker S/P left atrial appendage ligation Family History Family History Father Acute myocardial infarction Mother Acute myocardial infarction Other Cerebrovascular accident Diabetes mellitus Family history of arthritis Family history of heart disease in male family member before age 55 Social History Social History Social History: Surrogate medical decision maker: Erika Irby, daughter. Code status: Full code. Smoking packs per day: 1 Smoking cigarettes per day: 20.0 Years smoked: 10 Smoking pack-years: 10.00 Smoking status: Former smoker Tobacco type: cigarettes Smoking end date: 02/10/72 Alcohol intake: never Substance use: never Substance use type: does not use Do You Feel Safe in your Home?: Yes Lack of Transportation: No Lack of Food: Never True Current Housing: I Have Housing Concerned About Future Housing: No Difficulty Paying Gas/Electric Bills: No Difficulty Paying for Meds: No Currently Unemployed: No Education: High School Diploma/GED Difficulty w/ Childcare or Family Care: No Living arrangements: with family Additional living arrangements comments: . Spiritual care concerns: No Exam Narrative: White Elderly female patient with no apparent distress.? Head normocephalic, atraumatic.? Eyes conjunctiva pink sclera nonicteric.? Extraocular movements are intact.? Ears externally normal.? TMs are normal. ?Oropharynx is clear with moist mucous membranes without exudates.? Neck is supple nontender no lymphadenopathy.? Back is nontender.? Lungs are clear.? Heart is regular rate and rhythm without murmurs gallops or rubs.? Chest wall nontender. Abdomen is soft and nontender no hepatosplenomegaly or masses no CVA tenderness no abdominal bruits.? Extremities: Both lower extremities legs have petechiae have +1 edema tense edema. Calves are nontender negative Homans sign Bilateral. DP and PT pulses are +2 equal bilateral.? Skin is warm and dry without rashes or lesions.? Neurological patient is alert and oriented x4.? Motor and sensory grossly intact.? Gait is normal. Course Vital Signs Vital signs: Vital Signs Temperature 36.3 C L 02/05/24 09:54 Pulse Rate 70 02/05/24 09:54 Respiratory Rate 18 02/05/24 09:54 Blood Pressure 146/81 H 02/05/24 09:54 Pulse Oximetry 98 02/05/24 09:54 Oxygen Delivery Room Air 02/05/24 09:54 Temperature 36.3 C L 02/05/24 09:54 Pulse Rate 69 02/05/24 11:17 Respiratory Rate 17 02/05/24 11:17 Blood Pressure 140/71 02/05/24 11:17 Pulse Oximetry 99 02/05/24 11:17 Oxygen Delivery Room Air 02/05/24 09:54 MDM - Extremity (Nontraumatic) MDM Narrative Medical decision making narrative: Patient placed in room: One ? History and physical was performed. D-dimer 0.63 this is age adjusted normal coags were normal. Normal troponin CMP: BUN is 32 creatinine is normal 0.85 (BUN creatinine were 34 and 1.22 on 01/14) Osmo was 305, albumin 3.2, the rest of her CMP was normal. CBC WBCs 3.7 H&H was 11.6 and 35.5 with 144 platelets UA negative chest x-ray showed cardiomegaly no signs of congestive heart failure otherwise venous Doppler ultrasound showed no DVT Independent Historian: patient External Source Review: ED visit from December when I saw her showed she has shoulder pain, and her visit to the ED begin this month showed she had elevated creatinine Differential Dx includes but not limited to: congestive heart failure renal failure electrolyte imbalance venous thromboembolism, coagulopathy Medications were Reviewed: home meds reviewed Medications given: Lasix 20 mg p.o. Independently Interpreted by me: EKG showed a ventricular pacemaker at a rate of 70 impression abnormal EKG as independently interpreted by me. Shared decision Making: Evaluation was discussed with the patient all questions were asked and answered patient agreed with the plan. to take 20 mg Lasix daily for the next few days and see Dr. Dr. Rufus Garrett in 3 days as scheduled. She will weigh yourself daily and take those numbes to Dr. Rufus Garrett. Social Situation Impacting Patients Care: Discussed with Dr. VERDIN DIAGNOSIS: peripheral edema history congestive heart failure recent increased salt intake DISPOSITION : Discharge home CONDITION AT DISCHARGE: stable Lab Data 02/05/24 10:17 02/05/24 10:17 Labs: Lab Results 02/05/24 02/05/24 Range/Units 10:04 10:17 WBC 3.7 L (4.8-10.8) K/mm3 RBC 3.61 L (4.20-5.40) M/mm3 Hgb 11.6 L (11.7-13.8) g/dL Hct 35.5 (35.0-42.0) % MCV 98.3 (78.0-102.0) fL MCH 32.1 H (27.0-31.0) pg MCHC 32.7 (32-36) g/dL RDW 15.3 H (11.6-14.4) % Plt Count 144 L (150-420) K/mm3 MPV 8.1 L (9.2-11.8) fl PT 11.3 (9.50-12.1) Seconds INR 1.0 APTT 29.5 (23.9-30.70) Sec D-Dimer 0.63 H* (0.19-0.50) mg/L Sodium 145 (136-145) mmol/L Potassium 3.7 (3.5-5.1) mmol/L Chloride 108 (98-108) mmol/L Carbon Dioxide 28 (21-32) mmol/L Anion Gap 9 (4-12) mmol/L BUN 32 H (7-18) mg/dL Creatinine 0.85 (0.55-1.02) mg/dL Estim Creat Clear Calc 39 ml/min Estimated GFR > 60 (59 - ) Glucose 88 (70-99) mg/dL Calculated Osmolality 305 H (285-295) mOsm/kg Calcium 8.8 (8.5-10.1) mg/dL Total Bilirubin 0.6 (0.00-1.00) mg/dL AST 29 (15-37) U/L ALT 34 (14-59) U/L Alkaline Phosphatase 73 (46-116) U/L Troponin I 14.1 (0.00-60.4) ng/L Total Protein 6.4 (6.4-8.2) g/dL Albumin 3.2 L (3.4-5.0) g/dL Urine Color Light yellow (Yellow) Urine Appearance Clear (Clear) Urine pH 5.5 (5.0-8.0) Ur Specific [place] 1.015 (1.010-1.020) Urine Protein Trace H (Negative) Urine Glucose (UA) Negative (Negative) Urine Ketones Negative (Negative) Ur Blood (Man) Trace-intact H (Negative) Urine Nitrate Negative (Negative) Urine Bilirubin Negative (Negative) Urine Urobilinogen 0.2 (0.2-1.0) mg/dL Leukocyte Esterase Rfl Negative (Negative) EMILY/UL Urine RBC 0-2 (0-2) /hpf Urine WBC None seen (0-3) /hpf Ur Squamous Epith Cells Few (Few) /hpf Urine Bacteria Trace (None) /hpf Discharge Plan Discharge Clinical Impression: Mild peripheral edema Patient Disposition: Home, Self-Care Condition: Stable Instructions: Leg Edema (ED) Additional Instructions: take Lasix 20 mg daily and follow up with Dr.. Rufus Garrett next Thursday as as scheduled in 3 days. Return if you get worse or develops any new symptoms. Weigh yourself every day and take those readings to Dr. Rufus Garrett Patient Language: Albanian Prescriptions: New furosemide [Lasix] 20 mg tablet 20 mg PO DAILY 10 Days Qty: 10 0RF No Action sacubitril-valsartan [Entresto] 24-26 mg Tablet 1 tablet PO BID acetaminophen [Tylenol] 325 mg capsule 650 mg PO Q8H PRN (Reason: pain) Qty: 20 0RF pantoprazole 40 mg tablet,delayed release (DR/EC) 40 mg PO Q12H PRN (Reason: Acid Reflux) Gemtesa 75 mg tablet 75 mg PO DAILY ondansetron 4 mg tablet,disintegrating 4 mg PO Q6H PRN (Reason: nausea and vomiting) Qty: 15 0RF aspirin [Mahnaz Low Dose Aspirin] 81 mg tablet,delayed release (DR/EC) 81 mg PO DAILY rosuvastatin 40 mg tablet 40 mg PO HS Eliquis 5 mg tablet 5 mg PO BID cyclosporine [Restasis] 0.05 % dropperette 1 drp EACH EYE BID Centrum Silver Women 8 mg iron-400 mcg-50 mcg Tablet 1 tablet PO DAILY levothyroxine 100 mcg tablet See Rx Instructions .ROUTE .COMPLEX Qty: 90 2RF Dose Instruction: TAKE 1 TABLET BY MOUTH EVERY DAY Rx Instructions: TAKE 1 TABLET BY MOUTH EVERY DAY Follow-up/Referrals: Qasim Garrett DO [Primary Care Provider] - Time of Disposition: 11:45
--- NOTE | 2024-02-05 10:03 | ECG_ITS ---
Test Date: 2024-02-05 10:21:33 Measurements Intervals [place] Rate: 70 P: 0 MD: 0 QRS: 159 QRSD: 131 T: 30 QT: 454 QTc: 491 Interpretive Statements UNDERLYING ATRIAL FIBRILLATION / FLUTTER WITHELECTRONIC VENTRICULAR PACEMAKER ABNORMAL ECG Electronically Signed On 02-05-2024 17:31:06 TAX TECHNICIAN by Cuco Viera M.D.
--- NOTE | 2024-02-05 10:11 | PC.NURSE ---
ERP at bedside for initial assessment
[2024-02-05 10:22] LABS: Hematocrit 35.5 % (35.0-42.0); Hemoglobin 11.6 g/dL (11.7-13.8); Mean Corpuscular HGB Conc 32.7 g/dL (32-36); Mean Corpuscular Hemoglobin 32.1 pg (27.0-31.0); Mean Corpuscular Volume 98.3 fL (78.0-102.0); Mean Platelet Volume 8.1 fl (9.2-11.8); Platelet Count Result 144 K/mm3 (150-420); Red Blood Count 3.61 M/mm3 (4.20-5.40); Red Cell Distribution Width 15.3 % (11.6-14.4); White Blood Count 3.7 K/mm3 (4.8-10.8)
--- NOTE | 2024-02-05 10:30 | PC.NURSE ---
Patient taken down to bathroom for urine sample
[2024-02-05 10:40] LABS: Alanine Aminotransferase 34 U/L (14-59); Albumin Level 3.2 g/dL (3.4-5.0); Alkaline Phosphatase 73 U/L (46-116); Anion Gap 9 mmol/L (4-12); Aspartate Amino Transferase 29 U/L (15-37); Bilirubin,Total 0.6 mg/dL (0.00-1.00); Blood Urea Nitrogen 32 mg/dL (7-18); Calcium 8.8 mg/dL (8.5-10.1); Carbon Dioxide 28 mmol/L (21-32); Chloride 108 mmol/L (98-108); Estimated CRCL calculation 39 ml/min; Estimated Glomerular Filt Rate > 60; Glucose 88 mg/dL (70-99); Osmolality Calculated 305 mOsm/kg (285-295); Partial Thromboplastin Time 29.5 Sec (23.9-30.70); Potassium 3.7 mmol/L (3.5-5.1); Prothrombin Time 11.3 Seconds (9.50-12.1); Sodium 145 mmol/L (136-145); Total Protein 6.4 g/dL (6.4-8.2)
--- NOTE | 2024-02-05 10:42 | PC.NURSE ---
Patient taken down to Ultrasound and Xray
[2024-02-05 10:47] LABS: Add Urine Microscopic? YES; Appearance Urine Clear (Clear); Bilirubin Urine Negative (Negative); Blood Urine Trace-intact (Negative); Color Urine Light Yellow (Yellow); Glucose Urine UA Negative (Negative); Ketones Urine Negative (Negative); Leukocyte Esterase Ur Negative LEU/UL (Negative); Nitrate Urine Negative (Negative); Protein Urine Trace (Negative); Specific Grav Ur 1.015 (1.010-1.020); Urobilinogen Urine 0.2 mg/dL (0.2-1.0); pH Urine 5.5 (5.0-8.0)
[2024-02-05 10:47] LABS: Troponin I 14.1 ng/L (0.00-60.4)
[2024-02-05 10:50] LABS: D Dimer 0.63 mg/L (0.19-0.50)
[2024-02-05 10:56] LABS: Bacteria Urine Trace /hpf; RBC Urine 0-2 /hpf (0-2); Squamous Epithelial Cell Urine Few /hpf (Few); WBC Urine None seen /hpf (0-3)
--- NOTE | 2024-02-05 11:15 | PC.NURSE ---
Patient back in room from radiology department
[2024-02-05] MEDS: FUROSEMIDE 20 MG TABLET PO (11:53)
== END 2024-02-05 11:57 | disposition home or self-care (01) ==
PROVIDERS: Emergency Provider Emergency Medicine; PCP Family Medicine
DX: R60.0 Localized edema (principal); I13.0 Hypertensive heart and chronic kidney disease with heart failure and stage 1 through stage 4 chronic kidney disease, or unspecified chronic kidney disease; I50.9 Heart failure, unspecified; N18.30 Chronic kidney disease, stage 3 unspecified; I48.91 Unspecified atrial fibrillation; E78.5 Hyperlipidemia, unspecified; E03.9 Hypothyroidism, unspecified; K21.9 Gastro-esophageal reflux disease without esophagitis; Z98.84 Bariatric surgery status; Z86.718 Personal history of other venous thrombosis and embolism; Z86.711 Personal history of pulmonary embolism; Z79.01 Long term (current) use of anticoagulants; Z79.82 Long term (current) use of aspirin; Z95.810 Presence of automatic (implantable) cardiac defibrillator; Z87.891 Personal history of nicotine dependence
CPT/HCPCS: 36415; 71046; 80053; 81001; 84484; 85027; 85380; 85610; 85730; 93005; 93970; 99284; A9270

== ENCOUNTER 2024-03-04 02:44 | Day surgery (SDC) | payer MEDICARE, SELFPAY ==
[2024-02-29 14:58] VITALS: BMI 29.6
--- NOTE | 2024-03-03 14:05 | SUR.PREOP ---
Pt called 02/29/24 and instructed to hold eliquis until after procedure on 03/04/24. dr brooke will let her know when to restart. pt voiced understanding. also spoke with pts daughter misha and reinforced with her. voiced understanding.
[2024-03-04 09:17] VITALS: BP 147/77; PULSE 70; RESP 20; TEMP 36.2; O2SAT 100
[2024-03-04] MEDS: LACTATED RINGERS 1,000 ML 150 ML IV CONT (09:35)
--- NOTE | 2024-03-04 10:39 | PM.IMHP ---
H&P: HPI History of Present Illness Date/Time: 03/04/24 10:39 Chief Complaint: recent vomiting of coffee-ground material Narrative: this patient had gastric surgery 40 years ago, apparently gastric bypass. She has a recurrent stricture in the upper portion of the stomach, with some retained food. During the past 3 years she has been undergoing almost yearly EGDs with balloon dilatation of anastomotic stricture by Dr. Cortez, Utilizing an 18-20 balloon successfully. On January 17, 2024 the patient experienced an episode of perceived to be coffee-ground emesis. She is here for EGD and evaluation. Review of Systems Review of Systems: All systems reviewed & are unremarkable except as noted in HPI and below PMFSH Past Medical History Medical History Heart failure with reduced ejection fraction Echocardiogram in February 2021 showed mild to moderately dilated left ventricle with mild concentric hypertrophy and moderately depressed global systolic function with an LVEF of 40 to 45% with a mild to moderately dilated right ventricle. Chronic kidney disease, stage 3 Dysphagia Nondiabetic gastroparesis Anastomotic stricture of stomach Pacemaker DVT (deep venous thrombosis) CHF (congestive heart failure) Complications of gastric bypass surgery History of pulmonary embolism GERD (gastroesophageal reflux disease) TIA (transient ischemic attack) Hypothyroidism Hypertension Hyperlipidemia Atrial fibrillation Acute intra-cranial hemorrhage Surgical History Surgical History History of gastric surgery History of gastric bypass History of left knee replacement H/O craniotomy AICD present, double chamber Status post biventricular pacemaker S/P left atrial appendage ligation Family History Family History Father Acute myocardial infarction Mother Acute myocardial infarction Other Cerebrovascular accident Diabetes mellitus Family history of arthritis Family history of heart disease in male family member before age 55 Social History Social History Social History: Surrogate medical decision maker: Erika Irby, daughter. Code status: Full code. Smoking packs per day: 1 Smoking cigarettes per day: 20.0 Years smoked: 10 Smoking pack-years: 10.00 Smoking status: Former smoker Tobacco type: cigarettes Smoking end date: 02/10/72 Alcohol intake: never Substance use: never Substance use type: does not use Do You Feel Safe in your Home?: Yes Lack of Transportation: No Lack of Food: Never True Current Housing: I Have Housing Concerned About Future Housing: No Difficulty Paying Gas/Electric Bills: No Difficulty Paying for Meds: No Currently Unemployed: No Education: High School Diploma/GED Difficulty w/ Childcare or Family Care: No Living arrangements: with family Additional living arrangements comments: . Spiritual care concerns: No Meds Home Medications and Allergies Home Medications ?Medication ?Instructions ?Recorded ?Confirmed ?Type aspirin 81 mg tablet,delayed 81 mg PO DAILY 03/27/19 02/29/24 History release (Mahnaz Low Dose Aspirin) rosuvastatin 40 mg tablet 40 mg PO HS 03/27/19 03/04/24 History sacubitril 24 mg-valsartan 26 mg 1 tablet PO BID 11/26/20 03/04/24 History tablet (Entresto) apixaban 5 mg tablet (Eliquis) 5 mg PO BID 04/23/21 02/29/24 History acetaminophen 325 mg capsule 650 mg (2 x 325 mg) PO Q8H PRN 01/06/22 03/04/24 Rx (Tylenol) pain #20 caps levothyroxine 100 mcg tablet See Rx Instructions .Route 06/15/23 03/04/24 Rx .COMPLEX #90 tabs cyclosporine 0.05 % eye drops in a 1 drp EACH EYE BID 07/13/23 03/04/24 History dropperette (Restasis) [id number]-alfa-[id number] 8 mg-folic 400 1 tablet PO DAILY 07/13/23 03/04/24 History mcg-K 50 mcg-lutein 300 mcg tablet (Centrum Silver Women) ondansetron 4 mg disintegrating 4 mg PO Q6H PRN nausea and 12/27/23 03/04/24 Rx tablet vomiting #15 tabs pantoprazole 40 mg tablet,delayed 40 mg PO Q12H PRN Acid Reflux 12/27/23 03/04/24 History release vibegron 75 mg tablet (Gemtesa) 75 mg PO DAILY 12/27/23 03/04/24 History furosemide 20 mg tablet (Lasix) 20 mg PO DAILY 10 days #10 tabs 02/05/24 03/04/24 Rx Allergies Allergy/AdvReac Type Severity Reaction Status Date / Time Penicillins Allergy Severe Anaphylactic Verified 03/04/24 09:14 Shock hydrocodone AdvReac Severe NAUSEA AND Verified 03/04/24 09:14 VOMITING oxycodone AdvReac Severe Gastrointestinal Verified 03/04/24 09:14 Upset opiods AdvReac Severe Gastrointestinal Uncoded 03/04/24 09:14 Upset Vital Signs Vital Signs - 24 hr 03/04/24 09:17 Temperature 97.2 F L Pulse Rate 70 Respiratory Rate 20 Blood Pressure 147/77 H Pulse Oximetry 100 Oxygen Delivery Room Air Exam Const: General: cooperative and healthy appearing Resp: Effort & Inspection: normal respiratory effort and able to speak in complete sentences Auscultation: clear to auscultation bilaterally Cardio: Rate: regular rate Rhythm: regular rhythm GI: Inspection: normal to inspection GI Palp: No No hepatosplenomegaly present Auscultation: normal bowel sounds Rectal Exam: deferred Skin: General skin exam: normal color Psych: Appearance: grossly normal Mental Status: mental status grossly normal Assessment and Plan Assessment and plan (1) GERD (gastroesophageal reflux disease): Qualifiers: Esophagitis bleeding: unspecified whether hemorrhage Esophagitis presence: with esophagitis Qualified Code(s): K21.00 - Gastro-esophageal reflux disease with esophagitis, without bleeding Code(s): K21.9 - Gastro-esophageal reflux disease without esophagitis Status: Acute (2) Complications of gastric bypass surgery: Code(s): K91.89 - Other postprocedural complications and disorders of digestive system; Y83.2 - Surgical operation with anastomosis, bypass or graft as the cause of abnormal reaction of the patient, or of later complication, without mention of misadventure at the time of the procedure Status: Acute Assessment and Plan: The patient is deemed a good candidate for the procedure. Consent signed. Will proceed. Will also dilated any stricture that can be evidenced during this study. (3) Anastomotic stricture of stomach: Code(s): K92.9 - Disease of digestive system, unspecified; K31.89 - Other diseases of stomach and duodenum Status: Acute
--- NOTE | 2024-03-04 10:39 | WPDANESEPPF ---
Anes - Initial Pre Proc Eval Procedure: Operation Date: 03/04/24 10:00 Proposed Procedures p Esophagogastroduodenoscopy - Adan Fuentes MD Date/Time: 03/04/24 10:39 Surgeon: Adan Fuentes MD Pre Op Diagnosis: Gerd,postprocedural complications, Patient Data Age: 89 Gender: F Height: 1.57 m Weight: 73 kg Last Vital Signs Temp 97.2 F L 03/04/24 09:17 Pulse 70 03/04/24 09:17 Resp 20 03/04/24 09:17 BP 147/77 H 03/04/24 09:17 Pulse Ox 100 03/04/24 09:17 O2 Del Method Room Air 03/04/24 09:17 Allergies Allergy/AdvReac Type Severity Reaction Status Date / Time Penicillins Allergy Severe Anaphylactic Verified 03/04/24 09:14 Shock hydrocodone AdvReac Severe NAUSEA AND Verified 03/04/24 09:14 VOMITING oxycodone AdvReac Severe Gastrointestinal Verified 03/04/24 09:14 Upset opiods AdvReac Severe Gastrointestinal Uncoded 03/04/24 09:14 Upset Home Medications ?Medication ?Instructions ?Recorded ?Confirmed ?Type aspirin 81 mg tablet,delayed 81 mg PO DAILY 03/27/19 02/29/24 History release (Mahnaz Low Dose Aspirin) rosuvastatin 40 mg tablet 40 mg PO HS 03/27/19 03/04/24 History sacubitril 24 mg-valsartan 26 mg 1 tablet PO BID 11/26/20 03/04/24 History tablet (Entresto) apixaban 5 mg tablet (Eliquis) 5 mg PO BID 04/23/21 02/29/24 History acetaminophen 325 mg capsule 650 mg (2 x 325 mg) PO Q8H PRN 01/06/22 03/04/24 Rx (Tylenol) pain #20 caps levothyroxine 100 mcg tablet See Rx Instructions .Route 06/15/23 03/04/24 Rx .COMPLEX #90 tabs cyclosporine 0.05 % eye drops in a 1 drp EACH EYE BID 07/13/23 03/04/24 History dropperette (Restasis) [id number]-[id number] 8 mg-folic 400 1 tablet PO DAILY 07/13/23 03/04/24 History mcg-K 50 mcg-lutein 300 mcg tablet (Centrum Silver Women) ondansetron 4 mg disintegrating 4 mg PO Q6H PRN nausea and 12/27/23 03/04/24 Rx tablet vomiting #15 tabs pantoprazole 40 mg tablet,delayed 40 mg PO Q12H PRN Acid Reflux 12/27/23 03/04/24 History release vibegron 75 mg tablet (Gemtesa) 75 mg PO DAILY 12/27/23 03/04/24 History furosemide 20 mg tablet (Lasix) 20 mg PO DAILY 10 days #10 tabs 02/05/24 03/04/24 Rx Patient hx anesthesia problems: none Family hx anesthesia problems: none Results Review: All pre-operative results and documents have been reviewed as part of the pre-operative evaluation. [facility] Past Medical History Medical History Heart failure with reduced ejection fraction Echocardiogram in February 2021 showed mild to moderately dilated left ventricle with mild concentric hypertrophy and moderately depressed global systolic function with an LVEF of 40 to 45% with a mild to moderately dilated right ventricle. Chronic kidney disease, stage 3 Dysphagia Nondiabetic gastroparesis Anastomotic stricture of stomach Pacemaker DVT (deep venous thrombosis) CHF (congestive heart failure) Complications of gastric bypass surgery History of pulmonary embolism GERD (gastroesophageal reflux disease) TIA (transient ischemic attack) Hypothyroidism Hypertension Hyperlipidemia Atrial fibrillation Acute intra-cranial hemorrhage Surgical History Surgical History History of gastric surgery History of gastric bypass History of left knee replacement H/O craniotomy AICD present, double chamber Status post biventricular pacemaker S/P left atrial appendage ligation Family History Family History Father Acute myocardial infarction Mother Acute myocardial infarction Other Cerebrovascular accident Diabetes mellitus Family history of arthritis Family history of heart disease in male family member before age 55 Social History Social History Social History: Surrogate medical decision maker: Erika Irby, daughter. Code status: Full code. Smoking packs per day: 1 Smoking cigarettes per day: 20.0 Years smoked: 10 Smoking pack-years: 10.00 Smoking status: Former smoker Tobacco type: cigarettes Smoking end date: 02/10/72 Alcohol intake: never Substance use: never Substance use type: does not use Do You Feel Safe in your Home?: Yes Lack of Transportation: No Lack of Food: Never True Current Housing: I Have Housing Concerned About Future Housing: No Difficulty Paying Gas/Electric Bills: No Difficulty Paying for Meds: No Currently Unemployed: No Education: High School Diploma/GED Difficulty w/ Childcare or Family Care: No Living arrangements: with family Additional living arrangements comments: . Spiritual care concerns: No Anes - Eval Final PreProcedure Day of Procedure 03/04/24 10:39 Patient weight: normal Heart: regular rate and rhythm Lungs: normal air movement Airway: Mallampati scale and special considerations (Edentulous, posts in place. ) Neurological: alert and oriented Last oral intake: >/= 8 hours ASA classification: IV Emergent: no Anesthetic plan: proceed Anesthesia type and monitoring: general GIVS and standard monitoring Results Review: All pre-operative results and documents have been reviewed as part of the pre-operative evaluation. Afib, HTN, hyperlipidemia, CKD, hx pacemaker/AICD w LVEF 40%. Hx of gastroparesis, pt has been on clears/shakes for days in prep for this. Discussed w Dr Fuentes and pt and daughter at bedside. Informed Consent: The patient's anesthetic plan and its attendant risks and benefits were discussed with the patient/family/POA. Questions were solicited and answers provided to the satisfaction of the patient/family/POA.
[2024-03-04 11:16] VITALS: BP 108/65; PULSE 70; RESP 23; O2SAT 99
[2024-03-04 11:26] VITALS: BP 110/71; PULSE 70; RESP 19; O2SAT 99
[2024-03-04 11:36] VITALS: BP 136/80; PULSE 72; RESP 20; O2SAT 99
== END 2024-03-04 11:50 | disposition home or self-care (01) ==
PROVIDERS: PCP Family Medicine; Referring Provider Nurse Practitioner Family; Visit Provider Internal Medicine Gastroenterology
PROC: 0DJ08ZZ Inspection of Upper Intestinal Tract, Via Natural or Artificial Opening Endoscopic (ICD-10-PCS; CPT 43235; principal; 2024-03-04 10:00)
DX: K31.89 Other diseases of stomach and duodenum (principal); K91.89 Other postprocedural complications and disorders of digestive system; K21.9 Gastro-esophageal reflux disease without esophagitis; Z98.84 Bariatric surgery status; I13.0 Hypertensive heart and chronic kidney disease with heart failure and stage 1 through stage 4 chronic kidney disease, or unspecified chronic kidney disease; I50.9 Heart failure, unspecified; N18.30 Chronic kidney disease, stage 3 unspecified; Z95.810 Presence of automatic (implantable) cardiac defibrillator; Z87.891 Personal history of nicotine dependence; Y83.2 Surgical operation with anastomosis, bypass or graft as the cause of abnormal reaction of the patient, or of later complication, without mention of misadventure at the time of the procedure
CPT/HCPCS: 43235; J2003; J2704; J7120

== ENCOUNTER 2024-03-11 09:50 | Outpatient (CLI) | payer MEDICARE, SELFPAY ==
--- NOTE | ~2024-03-11 | CT_ITS ---
EXAMINATION: CT cervical spine wo con DATE: 03/11/2024 10:08 INDICATION: Neck pain. TECHNIQUE: Computed tomography (CT) of the cervical spine was performed without intravenous contrast. Automated exposure control and iterative reconstruction technique were employed. The dose-length pro duct was 130.65 mGy-cm. COMPARISON: CT cervical spine 12/31/2018 FINDINGS: There is 2 mm retrolisthesis of C3 on C4 and C4 on C5. Vertebral body heights are normal. T here is severely decreased disc height at C3-C4 and C4-C5 and C5-C6 and moderately decreased disc hei ght at C6-C7. The following disc levels are specifically discussed: C2-C3: There is mild right uncovertebral joint osteoarthritis. There is severe bilateral facet joint osteoarthritis. There is mild right neural foraminal stenosis. There is no central canal stenosis. C3-C4: There is severe bilateral uncovertebral joint osteoarthritis. There is mild bilateral facet osvaldo int osteoarthritis. There is mild bilateral neural foraminal stenosis. There is mild central canal st enosis. C4-C5: There is severe bilateral uncovertebral joint osteoarthritis. There is mild bilateral facet osvaldo int osteoarthritis. There is mild right and moderate left neural foraminal stenosis. There is mild ce ntral canal stenosis. C5-C6: There is severe bilateral uncovertebral joint osteoarthritis. There is severe bilateral facet joint osteoarthritis. There is mild bilateral neural foraminal stenosis. There is no central canal st enosis. C6-C7: There is severe right uncovertebral joint osteoarthritis. There is severe bilateral facet join t osteoarthritis. There is mild right neural foraminal stenosis. There is no central canal stenosis. C7-T1: There is no uncovertebral joint osteoarthritis. There is severe bilateral facet joint osteoart hritis. There is mild bilateral neural foraminal stenosis. There is no central canal stenosis. IMPRESSION: 1. No fracture. 2. Severe cervical spondylosis. Reviewed, dictated and finalized at location A. EMENT CLERKS SUPERVISOR
--- OUTSIDE RECORDS SUMMARY | 2024-03-11 10:07 | XMS_ITS | Encounter Summary ---
Author Organization [facility] Address [address] [facility] [place] [address] [place] [address] Care Team Providers Care Technical Advisor Name Role Phone Mary Barber MD Unavailable Thomas Brian MD Unavailable Unavailable [facility] Unavailable [phone] Qasim Garrett DO Primary Care Provider [phone] Tiffany Badillo MD Unavailable [phone] Erick Abdi MD Unavailable [phone] Jim Tamez MD Unavailable Monique Iverson NP Unavailable [phone] Encounter Details Date Type Department Care Team (Late st Contact Info) Description 01/24/2015 Abstract [facility] [address] [place] [address] Mary Barber MD [address] [place] [address] Social History Tobacco Use Types Packs/Day Years Used Date Smoking Tobacco: Never Alcohol Use Standard Drinks/Week Comments No 0 (1 standard drink = 0.6 oz pur e alcohol) Comments Unknown Sex and Gender Information Value Date Recorded Sex Assigned at Female 03/07/2024 1:44 PM SENIOR PRIVATE CLIENT ADVISOR Legal Sex Female 10:54 PM CDT Gender Identity Not on file Sexual Orientation Not on file Occupation Industry Job Start Date Job End Date Retired Not on file Not on file Not on file documented as of this encounter Plan of Treatment Upcoming Encounters Date Type Department Care Team (Late st Contact Info) Description 03/15/2024 11:15 AM SENIOR PRIVATE CLIENT ADVISOR Office Visit [facility] [address] [place] [address] Jim Tamez MD [address] [place], [place] [address] 05/16/2024 1:15 AM CDT Allied Health/Nurse Visit [facility] [address] [place] [address] Mary Barber MD [address] [place] [address] 09/07/2024 9:00 AM CDT Office Visit [facility] [address] [place] [address] Tiffany Badillo MD [address] [place], [place] [address] documented as of this encounter Visit Diagnoses Not on filedocumented in this encounter Care Teams Technical Advisor Relationship Specialty Start Date End Date Qasim Garrett DO [address] [place] [address] PCP - General FAMILY PRACTICE 04/13/19 Mary Barber MD [address] [place] [address] EP Vehicle Window Tinter CLINICAL CARDIAC ELECTROPHYSIOLOGY 09/15/16 Thomas Brian MD [address] [place] [address] CARDIOVASCULAR DISEASE 09/16/16 04/12/19 Josey Schwartz AGACNP-BC [address] [facility] [address] [place] [address] Nurse Practitioner Electrophysiology 09/18/16 12/22/19 Tiffany Badillo MD [address] [place] [address] Consulting Physician INTERVENTIONAL CARDIOLOGY 12/23/19 Erick Abdi MD [address] [place], [place] [address] Consulting Physician PAIN MANAGEMENT 09/06/20 Jim Tamez MD [address] [place] [address] Consulting Physician INTERNAL MEDICINE 09/10/23 Monique Iverson, NONI [address] [facility] [address] [place], [place] [address] Nurse Practitioner Nurse Practitioner Acute Care 03/07/24 documented as of this encounter
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
--- OUTSIDE RECORDS SUMMARY | 2024-03-11 10:07 | XMS_ITS | Encounter Summary ---
Author Organization [facility] Address [address] [facility] [place] [address] [place] [address] Care Team Providers Care Dough Cutter Name Role Phone Mary Barber MD Unavailable Thomas Brian MD Unavailable Unavailable Efren Josey [facility] Unavailable [phone] Qasim Garrett DO Primary Care Provider [phone] Tiffany Badillo MD Unavailable [phone] Erick Abdi MD Unavailable [phone] Jim Tamez MD Unavailable Monique Iverson NP Unavailable [phone] Encounter Details Date Type Department Care Team (Late st Contact Info) Description 04/25/2017 Abstract [facility] [address] [place] [address] , Generic Conversion, Social History Tobacco Use Types Packs/Day Years Used Date Smoking Tobacco: Former Cigarettes Q uit: 09/23/1971 Smokeless Tobacco: Never Alcohol Use Standard Drinks/Week Comments No 0 (1 standard drink = 0.6 oz pur e alcohol) Comments Unknown Sex and Gender Information Value Date Recorded Sex Assigned at Female 03/07/2024 1:44 PM LEAN MANUFACTURING LEADER Legal Sex Female 10:54 PM CDT Gender [...] st Contact Info) Description 03/15/2024 11:15 AM LEAN MANUFACTURING LEADER Office Visit [facility] [address] [place] [address] Jim Tamez MD [address] [place], [place] [address] 05/16/2024 1:15 AM CDT Allied Health/Nurse Visit [facility] [address] [place] [address] Mary Barber MD [address] [place] [address] 09/07/2024 9:00 AM CDT Office Visit [facility] [address] [place] [address] Tiffany Badillo MD [address] [place], [place] [address] documented as of this encounter Visit Diagnoses Not on filedocumented in this encounter Care Teams Dough Cutter Relationship Specialty Start Date End Date Qasim Garrett DO [address] [place] [address] PCP - General FAMILY PRACTICE 04/13/19 Mary Barber MD [address] [place] [address] EP Rejoiner CLINICAL CARDIAC ELECTROPHYSIOLOGY 09/15/16 Thomas Brian MD [address] [place] [address] CARDIOVASCULAR DISEASE 09/16/16 04/12/19 Josey Schwartz [facility] [address] [facility] [address] [place] [address] Nurse Practitioner Electrophysiology 09/18/16 12/22/19 Tiffany Badillo MD [address] [place] [address] Consulting Physician INTERVENTIONAL CARDIOLOGY 12/23/19 Erick Abdi MD [address] [place] [address] Consulting Physician PAIN MANAGEMENT 09/06/20 Jim Tamez MD [address] [place] [address] Consulting Physician INTERNAL MEDICINE 09/10/23 Monique Iverson NP [address] [facility] [address] [place] [address] Nurse Practitioner Nurse Practitioner Acute Care 03/07/24 documented as of this encounter
--- OUTSIDE RECORDS SUMMARY | 2024-03-11 10:08 | XMS_ITS | Encounter Summary ---
Author Organization [facility] Address [address] [place] [address] [place] [address] Care Team Providers Care Optical Advisor Name Role Phone Mary Barber MD Unavailable Qasim Garrett DO Primary Care Provider [phone] Tiffany Badillo MD Unavailable [phone] Erick Abdi MD Unavailable [phone] Jim Tamez MD Unavailable Monique Iverson NP Unavailable [phone] Reason for Visit * Reason Comments In Clinic Device Check Encounter Details Date Type Department Care Team (Latest Contact Info) Description 03/07/2024 2:00 PM SUGAR CANE PLANTER MACHINE OPERATOR Allied Health/Nurse Visit [facility] [address] [place] [address] Mary Barber MD [address] [place] [address] In Clinic Device Check Social History Tobacco Use Types Packs/Day Years [...] Sex Assigned at Female 03/07/2024 1:44 PM SUGAR CANE PLANTER MACHINE OPERATOR Legal Sex Female 10:54 PM CDT Gender [...] encounter Progress Notes * Triny Rader - 03/07/2024 2:00 PM CST In office device check performed by [facility] on 03/07/2024 See media for pdf Cosigned by Mary Barber MD at 03/09/2024 4:36 PM SUGAR CANE PLANTER MACHINE OPERATOR R CANE PLANTER MACHINE OPERATOR R CANE PLANTER MACHINE OPERATOR documented in this encounter Plan of Treatment Upcoming Encounters Date Type Department Care Team (Late st Contact Info) Description 03/15/2024 11:15 AM SUGAR CANE PLANTER MACHINE OPERATOR Office Visit [facility] [address] [place] [address] Jim Tamez MD [address] [place], [place] [address] 05/16/2024 1:15 AM CDT Allied Health/Nurse Visit [facility] [address] [place] [address] [phone] Mary Barber MD [address] [place] [address] 09/07/2024 9:00 AM CDT Office Visit [facility] [place] [address] [place] [address] Tiffany Badillo MD [address] [place] [address] documented as of this encounter Visit Diagnoses Diagnosis Biventricular ICD (implantable cardioverter-defibrillator) in place- Primary VT (ventricular tachycardia) ([facility]) Paroxysmal ventricular tachycardia documented in this encounter Care Teams Optical Advisor Relationship Specialty Start Date End Date Tami DO Qasim [address] [place] [address] PCP - General FAMILY PRACTICE 04/13/19 Mary Barber MD [address] [place] [address] EP Frame Nailer CLINICAL CARDIAC ELECTROPHYSIOLOGY 09/15/16 Tiffany Badillo MD [address] [place] [address] Consulting Physician INTERVENTIONAL CARDIOLOGY 12/23/19 Erick Abdi MD [address] [place] [address] [phone] Consulting Physician PAIN MANAGEMENT 09/06/20 Jim Tamez MD [address] [place] [address] Consulting Physician INTERNAL MEDICINE 09/10/23 Monique Iverson NP [address] [place] [address]. [address] [place], [place] [phone] Nurse Practitioner Nurse Practitioner Acute Care 03/07/24 documented as of this encounter
--- OUTSIDE RECORDS SUMMARY | 2024-03-11 10:08 | XMS_ITS | Encounter Summary ---
Author Organization [facility] Address [address] [facility] [address] [place] [address] Care Team Providers Care Development Specialist Name Role Phone Mary Barber MD Unavailable Qasim Garrett DO Primary Care Provider [phone] Tiffany Badillo MD Unavailable [phone] Erick Abdi MD Unavailable [phone] Jim Tamez MD Unavailable Monique Iverson NP Unavailable [phone] Encounter Details Date Type Department Care Team (Late st Contact Info) Description 11/02/[address] [facility] Anesthesia [address] [place] [address] Melia Buenrostro Anesthesia Record Procedure Summary Procedure [...] Other (Comment); Removal Date: 11/07/20; Removal Time: 0911/06/20 1033 by Elissa Beckham CRNA 11/07/20 0935 [...] Organization Meetings Never 03/27/2019 Marital Status 03/27/2019 [facility] Tracy of Occupat ional Health - Occupational Stress [...] Sex Assigned at Female 03/07/2024 1:44 PM FABRIC AND ACCESSORIES ESTIMATOR Legal Sex Female 10:54 PM CDT Gender [...] Assessment Author Status No 03/28/2019 12:00 AM FABRIC AND ACCESSORIES ESTIMATOR 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 Answer Date of Assessment Author Status No 03/28/2019 12:00 AM FABRIC AND ACCESSORIES ESTIMATOR Acti ve * Do you have [...] st Contact Info) Description 03/15/2024 11:15 AM FABRIC AND ACCESSORIES ESTIMATOR [facility] [address] [place] [address] Jim Tamez MD [address] [place], [place] [address] 05/16/2024 1:15 AM CDT Allied Health/Nurse Visit [facility] ld [address] [place] [address] Mary Barber MD [address] [place] [address] 09/07/2024 9:00 AM CDT Office [facility] [place] [address] Tiffany Badillo MD [address] [place], [place] [address] documented as of this encounter Visit Diagnoses Not on filedocumented in this encounter Care Teams Development Specialist Relationship Specialty Start Date End Date Qasim Garrett DO [address] [place] [address] PCP - General FAMILY PRACTICE 04/13/19 Mary Barber MD [address] [place] [phone] EP Patient Financial Specialist CLINICAL CARDIAC ELECTROPHYSIOLOGY 09/15/16 Tiffany Badillo MD [address] [place] [address] [phone] Consulting Physician INTERVENTIONAL CARDIOLOGY 12/23/19 Erick Abdi MD [address] [place] [address] [phone] Consulting Physician PAIN MANAGEMENT 09/06/20 Jim Tamez MD [address] [place] [address] Consulting Physician INTERNAL MEDICINE 09/10/23 Monique Iverson, SCANNING SUPERVISOR [address] [facility] [place]. [address] [place] [address] Nurse Practitioner Nurse Practitioner Acute Care 03/07/24 documented as of this encounter
== END 2024-03-11 09:51 | disposition home or self-care (01) ==
PROVIDERS: PCP Family Medicine
DX: M54.2 Cervicalgia (principal); M43.02 Spondylolysis, cervical region
CPT/HCPCS: 72125

== ENCOUNTER 2024-04-11 01:53 | Day surgery (SDC) | payer MEDICARE, SELFPAY ==
[2024-04-07 12:10] VITALS: BMI 27.8
[2024-04-11 12:13] VITALS: BP 146/88; PULSE 70; RESP 18; TEMP 36.4; O2SAT 99
[2024-04-11] MEDS: LACTATED RINGERS 1,000 ML 150 ML IV CONT (12:23)
--- NOTE | 2024-04-11 12:46 | WPDANESEPPF ---
Anes - Initial Pre Proc Eval Procedure: Operation Date: 04/11/24 13:30 Proposed Procedures p Esophagogastroduodenoscopy - Fredy Amaya MD Date/Time: 04/11/24 12:46 Surgeon: Fredy Amaya MD Pre Op Diagnosis: hematemesis,dysphagia,disease of digestive Patient Data Age: 89 Gender: F Height: 1.6 m Weight: 72.5 kg Last Vital Signs Temp 36.4 C L 04/11/24 12:13 Pulse 70 04/11/24 12:13 Resp 18 04/11/24 12:13 BP 146/88 H 04/11/24 12:13 Pulse Ox 99 04/11/24 12:13 O2 Del Method Room Air 04/11/24 12:13 Allergies Allergy/AdvReac Type Severity Reaction Status Date / Time Penicillins Allergy Severe Anaphylactic Verified 04/11/24 12:12 Shock hydrocodone AdvReac Severe NAUSEA AND Verified 04/11/24 12:12 VOMITING oxycodone AdvReac Severe Gastrointestinal Verified 04/11/24 12:12 Upset opiods AdvReac Severe Gastrointestinal Uncoded 04/11/24 12:12 Upset Home Medications ?Medication ?Instructions ?Recorded ?Confirmed ?Type aspirin 81 mg tablet,delayed 162 mg PO DAILY 03/27/19 04/11/24 History release (Mahnaz Low Dose Aspirin) rosuvastatin 40 mg tablet 40 mg PO HS 03/27/19 04/11/24 History sacubitril 24 mg-valsartan 26 mg 1 tablet PO BID 11/26/20 04/11/24 History tablet (Entresto) acetaminophen 325 mg capsule 650 mg (2 x 325 mg) PO Q8H PRN 01/06/22 04/07/24 Rx (Tylenol) pain #20 caps cyclosporine 0.05 % eye drops in a 1 drp EACH EYE BID 07/13/23 04/11/24 History dropperette (Restasis) ozztqeoc-iqyn-ropi 8 mg-folic 400 1 tablet PO DAILY 07/13/23 04/11/24 History mcg-K 50 mcg-lutein 300 mcg tablet (Centrum Silver Women) pantoprazole 40 mg tablet,delayed 40 mg PO Q12H PRN Acid Reflux 12/27/23 04/11/24 History release vibegron 75 mg tablet (Gemtesa) 75 mg PO DAILY 12/27/23 04/11/24 History levothyroxine 100 mcg tablet See Rx Instructions .Route 03/17/24 04/11/24 Rx .COMPLEX #90 tabs Patient hx anesthesia problems: none Family hx anesthesia problems: none Results Review: All pre-operative results and documents have been reviewed as part of the pre-operative evaluation. [facility] Past Medical History Medical History Heart failure with reduced ejection fraction Echocardiogram in February 2021 showed mild to moderately dilated left ventricle with mild concentric hypertrophy and moderately depressed global systolic function with an LVEF of 40 to 45% with a mild to moderately dilated right ventricle. Chronic kidney disease, stage 3 Dysphagia Nondiabetic gastroparesis Anastomotic stricture of stomach Pacemaker DVT (deep venous thrombosis) CHF (congestive heart failure) Complications of gastric bypass surgery History of pulmonary embolism GERD (gastroesophageal reflux disease) TIA (transient ischemic attack) Hypothyroidism Hypertension Hyperlipidemia Atrial fibrillation Acute intra-cranial hemorrhage Surgical History Surgical History History of gastric surgery History of gastric bypass History of left knee replacement H/O craniotomy AICD present, double chamber Status post biventricular pacemaker S/P left atrial appendage ligation Family History Family History Father Acute myocardial infarction Mother Acute myocardial infarction Other Cerebrovascular accident Diabetes mellitus Family history of arthritis Family history of heart disease in male family member before age 55 Social History Social History Social History: Surrogate medical decision maker: Erika Irby, daughter. Code status: Full code. Smoking packs per day: 1 Smoking cigarettes per day: 20.0 Years smoked: 10 Smoking pack-years: 10.00 Smoking status: Former smoker Tobacco type: cigarettes Smoking end date: 02/10/72 Alcohol intake: never Substance use: never Substance use type: does not use Do You Feel Safe in your Home?: Yes Lack of Transportation: No Lack of Food: Never True Current Housing: I Have Housing Concerned About Future Housing: No Difficulty Paying Gas/Electric Bills: No Difficulty Paying for Meds: No Currently Unemployed: No Education: High School Diploma/GED Difficulty w/ Childcare or Family Care: No Living arrangements: alone Additional living arrangements comments: . Spiritual care concerns: No Anes - Eval Final PreProcedure Day of Procedure 04/11/24 12:46 Patient weight: overweight Heart: regular rate and rhythm Lungs: clear to auscultation Airway: Mallampati scale class II Neurological: alert and oriented Last oral intake: >/= 8 hours ASA classification: IV Emergent: no Anesthetic plan: proceed Anesthesia type and monitoring: general GIVS and standard monitoring Results Review: All pre-operative results and documents have been reviewed as part of the pre-operative evaluation. Informed Consent: The patient's anesthetic plan and its attendant risks and benefits were discussed with the patient/family/POA. Questions were solicited and answers provided to the satisfaction of the patient/family/POA.
--- NOTE | 2024-04-11 13:19 | WPDHPUPDATE1 ---
History and Physical Update Update Date/Time: 04/11/24 13:19 History and Physical has been reviewed, including an updated exam of the patient. There are NO changes in the patient's condition. Risks, benefits, and alternatives have been discussed and questions answered. Patient agrees to proceed with procedure.
[2024-04-11 13:39] VITALS: BP 118/66; PULSE 66; RESP 18; O2SAT 100
[2024-04-11 13:49] VITALS: BP 119/72; PULSE 70; RESP 14; O2SAT 100
[2024-04-11 13:59] VITALS: BP 159/72; PULSE 70; RESP 23; O2SAT 100
== END 2024-04-11 14:16 | disposition home or self-care (01) ==
PROVIDERS: PCP Family Medicine; Visit Provider Internal Medicine Gastroenterology
PROC: 0DJ08ZZ Inspection of Upper Intestinal Tract, Via Natural or Artificial Opening Endoscopic (ICD-10-PCS; CPT 43245; principal; 2024-04-11 13:30)
DX: K31.2 Hourglass stricture and stenosis of stomach (principal); R11.2 Nausea with vomiting, unspecified; K95.89 Other complications of other bariatric procedure; Y84.8 Other medical procedures as the cause of abnormal reaction of the patient, or of later complication, without mention of misadventure at the time of the procedure; N18.30 Chronic kidney disease, stage 3 unspecified; I50.9 Heart failure, unspecified; I13.0 Hypertensive heart and chronic kidney disease with heart failure and stage 1 through stage 4 chronic kidney disease, or unspecified chronic kidney disease; Z95.810 Presence of automatic (implantable) cardiac defibrillator; Z87.891 Personal history of nicotine dependence
CPT/HCPCS: 43245; C1726; J2003; J2704; J7120

== ENCOUNTER 2024-05-04 08:27 | Outpatient (CLI) | payer MEDICARE, SELFPAY ==
--- OUTSIDE RECORDS SUMMARY | 2024-05-04 08:38 | XMS_ITS | Encounter Summary ---
Author Organization [facility] Address [address] [place] [address] Care Team Providers Care Felt Hat Inspector And Packer Name Role Phone Mary Barber MD Unavailable aQsim Garrett DO Primary Care Provider [phone] Tiffany Badillo MD Unavailable [phone] Erick Abdi MD Unavailable [phone] Jim Tamez MD Unavailable Monique Iverson NP Unavailable [phone] Bruno Can MD Unavailable [phone] Encounter Details Date Type Department Care Team (Latest Contact Info) Description 03/17/2024 HUNT Mobile Adst Message [facility] [place] [address] Tiffany Badillo MD [address] [place] [address] Entresto - problem filling at pharmacy Social History Tobacco Use Types Packs/Day Years [...] Sex Assigned at Female 03/07/2024 1:44 PM PIECE DYEING MACHINE TENDER Legal Sex Female 10:54 PM CDT Gender [...] Upcoming Encounters Date Type Department Care Team ([facility] st Contact Info) Description 05/16/2024 1:15 AM CDT [facility] [address] [place] [address] Mary Barber MD [address] [place] [address] 08/23/2024 9:00 AM CDT Office Visit [facility] [place] [address] Bruno Can MD [address] [facility] [address] [place] [address] documented as of this encounter Visit Diagnoses Not on filedocumented in this encounter Care Teams Felt Hat Inspector And Packer Relationship Specialty Start Date End Date Qasim Garrett DO [address] [place] [address] PCP - General FAMILY PRACTICE 04/13/19 Mary Barber MD [address] [place] [address] EP Senior Environmental Technician CLINICAL CARDIAC ELECTROPHYSIOLOGY 09/15/16 Tiffany Badillo MD [address] [place] [address] Consulting Physician INTERVENTIONAL CARDIOLOGY 12/23/19 04/15/24 Erick Abdi MD [address] [phone] Consulting Physician PAIN MANAGEMENT 09/06/20 Jim Tamez MD [address] [phone] Consulting Physician INTERNAL MEDICINE 09/10/23 Monique Iverson NP [address] [facility], [facility]. [address] [address] Nurse Practitioner Nurse Practitioner Acute Care 03/07/24 Bruno Can MD [address] [place] , [facility] [address] [address] Physician INTERVENTIONAL CARDIOLOGY 04/15/24 documented as of this encounter
--- OUTSIDE RECORDS SUMMARY | 2024-05-04 08:38 | XMS_ITS | Data Portability ---
Author Organization [facility], [address] [place] [address] [place] Address [address] [place] [address] Care Team Providers Care Grid Maker Name Role Phone HI ROLON Primary Care [...] of her right hand. She went to [facility] over the weekend. They diagnosed [...] does have a pacemaker. It is a [employer] that is MRI compatible. However, one of the leads is not a [employer] lead and so they do not know [...] rotation bilaterally. There is a negative Medina, Neer s and Speed s impingement test. No instability is appreciated with anterior posterior glide test or sulcus maneuver. There is no effusion, redness or increased warmth to touch in the shoulder. O Emile s maneuver is negative. Loading and rotating [...] No obvious active trigger points palpable. Positive Spurling s maneuver, right and left. Pulses are [...] of her shoulder that were done as [facility]. She does have evidence of calcific [...] if we can get approval for MRI. dmr [email or web address] Not available 12/28/2023 23:59:16 03/07/2024 03/07/2024 SUBJECTIVE: 89-year-old here today for follow up of her neck pain. She is here today with her daughter as per usual. Her daughter's name is Erika. Sera indicates pain is improved by about 25%. She did physical therapy near her home. They did not do any traction. The therapist indicated they did not feel like that would help her long-term. She is really not having any radicular complaints at this time, but she still has significant cervical stiffness, decreased motion, and pain. There is a little bit of numbness and tingling in the 1st, 2nd, and 3rd digits of that right hand, that is unchanged. We looked into getting an MRI for her, but one of the leads that is in her heart is of unknown origin, it is not [employer], so we really cannot confirm whether or not it is MRI safe. After her last visit, which was a walk-in on 12/27, we gave her a prescription of prednisone and cyclobenzaprine, as well as a physical therapy order, and she does not feel like the medication was very helpful. REVIEW OF SYSTEMS: CONST:-Denies fevers or chills. GI:-Denies nausea, vomiting, diarrhea, dark, tarry stools or bleeding. MSK:-Denies new injury or extremity swelling/edema. SKIN:-Denies rashes or other skin lesions. NEURO:-Denies any new pain or weakness. Reviewed past medical history, family history, surgical history, social history. OBJECTIVE: She has very limited mobility and range of motion. 0 size bending left and right, about 15 degrees of rotation left and right, 15-20 degrees of extension which is much better than anticipated. She can get her chin to her chest. But with side bending rotation she cannot get any pain to radiate down her arm. She does have decreased sensation to light touch in her 1st, 2nd, and 3rd digits of the right hand. She has a negative Tinel's and Phalen's test in the right upper extremity. Strength appears to be equal left and right in her training and development manager and wrist flexors and extenders. 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 PLAN: I anticipated Sera would have gotten a little bit more mobility and range of motion out of the physical therapy. I still think gentle mobilization and traction would be probably of some benefit to her, but the therapist there in [place] just did not agree. Potentially, facet injections or radiofrequency ablations may be something to consider. Cervical epidural for the symptoms she was having in the right upper extremity might be a consideration. She may have a C6 or C7 nerve root impingement. She is not in any way interested in spine surgery and I think the spine surgeon would agree it is probably not optimal at her age. So, therefore, I think continued conservative treatments and getting her into see one of our pain management specialists would be reasonable. Because she is really not interested in surgery, I do not think cervical myelogram is warranted, but just a plain CT scan instead of the MRI will be done to see what sort of pathology we are able to identify, and then likely we will be referring her upstairs. nita [email or web address] Not available 03/07/2024 20:22:11 Plan of Treatment Reminders Order Date Submit Date Provider Last Modified By Organization Details Last Modified Time Details Appointments New Patient Visit 30.NEW 2024 11:00A M Dr. Erick Abdi Not available Not available Not available Lab None recorded. Referral physical therapist referral - Evaluate and Treat Cervical radiculop athy/Righ t shoulder painModal ities/Ran ge of Motion/Tr action 2023 024 ALAINA Not available 01/04/2024 21:05:16 Procedures None recorded. Surgeries None recorded. Imaging CT, cervical spine, w/o contrast 2024 025 [facility] Only - Md Radiology, [address] [place] [address], [id number], 03/14/2024 13:36:38 XR, cervical spine, 2 or 3 view 2023 024 [facility] Only - Md Radiology, [address] [place] [address], [id number], 12/28/2023 15:01:24 Medication Orders prednison e 10 mg tablet 2023 024 [id number], [address], [place], [id number], 12/28/2023 15:01:24 cyclobenz aprine 10 mg tablet 2023 024 [id number], [address], [place], [id number], 12/28/2023 15:01:24 Patient TargetsNo targets recorded. Patient InstructionsNo [...] cholo spine , 2 or [address] [address] Teleph one [phone] Name: Boris Mcmullen 1922Ex am Date: 2023 [...] as above. Electr onical ly signed in [facility] by: CHAPO ALVAREZ MD on: 4 11:24 AM cc: Page PAGE 1 of [facility] - [facility] [address] [place] [address], [address], 12/28/2023 15:02:15 03/14/19 25 03/11/2024 CT, cervi cholo spine , w/o contr ast No observ ation record ed. [facility] [address] [place], [address], 03/15/2024 10:17:46 04/01/19 25 03/11/2024 CT, cervi cholo spine , w/o contr ast No observ ation record ed. [facility] - [facility] Radiology [address] [place] [address], [address], 04/01/2024 16:40:07 Result Notes None recorded. Problems Name Problem SNOMED Code Status Onset Date Resolution Date Notes Provider Name and Address Organization Details Recorded Time Pain of right shoulder joint 552655158198 71892 Active 2023 Angie Plascencia [facility] 4 11:51:17 Pain of right shoulder region Active 2023 Angie Plascencia [facility] 4 11:51:28 Cervical radiculop athy 86100352 Active 2023 Angie Plascencia [facility] 4 12:38:50 Calcific tendiniti s of left shoulder 077944485760 108 Active 2023 Marcelina Boston [facility] 4 19:16:05 Calcific tendiniti s of right shoulder 706018376698 107 Active 2023 Marcelina Boston [facility] 4 19:16:10 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 03976354 [facility] 2023 [facility] 19:16:38 Neck pain 97383047 Active 2024 Angie Plascencia null, [facility] 5 18:19:18 Cervical spondylos is 232833846 Active 2024 Marcelina Boston null, [facility] 5 12:13:14 Actinic keratosis 621186475 Active 2023 Radhika Kyree null, [facility] 4 11:11:22 Dry skin dermatiti s 718211882 Active 2023 Radhika Kyree null, [facility] 4 11:13:35 Rosacea 410769648 Active 2023 Radhika Kyree [facility], [facility] 4 11:13:42 Multiple benign melanocyt ic nevi 782873267 Active 2023 Left & Right upper extremity Radhika Kyree null, [facility] 4 11:14:03 Seborrhei c keratosis 141732934 Active 2023 Radhika Kyree null, [facility] 4 11:14:10 Solar lentigo 60250213 [facility] 11:14[facility]16 [facility]trig o 24795008 [facility] 11:14:24 Severe dry skin 416341854 Active 2023 [facility] 4 11:52:57 Melanocyt ic nevus of right upper limb 362391697 Active 2023 [facility] 4 11:53:14 Melanocyt ic nevus of right lower limb 670784715936 108 Active 2023 [facility] 4 11:53:18 Lentigo - freckle 368316976 Active 2023 Renee Rubin [facility] 11:54:27 Problem Notes None recorded. Procedures Surgical History Date Name Laterality Status Provider Name and Address Organization Details Recorded Time excision of malignant neoplasm completed Selene Hardin [facility] 07/15/2023 10:01:24 Imaging Results Imaging Date Name Status LastModified by Organiz ation Details LastModified Time 12/28/2023 XR, cervical spine, 2 or 3 view completed [facility] Only - Md Radiology [address] [place] [address], [address], 12/28/2023 15:02:15 03/11/2024 CT, cervical spine, w/o contrast completed [facility] [address] [place], [address], 03/15/2024 10:17:46 03/11/2024 CT, cervical spine, w/o contrast completed [facility] Only - [facility] Radiology [address] [place] [address], [address], 04/01/2024 16:40:07 Procedure Notes None recorded. Medical Equipment None Reported. Allergies Allergen ID Allergen Name Allergen Category Reaction Reaction Severity Criticality Documentation Date Start Date Code Code System Note Provider Name and Address Organization Details Recorded Time 2871558 Levaquin medicatio n Not available Not available Not available 03/11/20232017 49713 2 RxNorm Not Available Not Available Not Available 9910928 oxycodone medicatio n Not available Not available Not available 03/11/20232017 7804 RxNorm Not Available Not Available Not Available 8266086 Product containin g penicilli n (product) medicatio n Not available Not available Not available 03/11/20232017 54058 8001 SNOMED Not Available Not Available Not Available 3998158 acetamino phen / hydrocodo ne medicatio n Not available Not available Not available 03/11/20232017 01705 2 RxNorm Not Available Not Available Not [...] active Not Available Not Available Not Available hydrocodone 5 mg-acetamino phen 325 mg tablet 1 TABLET ORALLY FOUR TIMES DAILY NEEDED FOR PAIN active Not Available Not Available No t Available ciprofloxaci n 250 mg tablet TAKE 1 TABLET BY MOUTH EVERY 12 HOURS active Not Available Not Available No t Available sulfamethoxa zole 800 mg-trimethop rim 160 mg tablet TAKE 1 TABLET BY MOUTH EVERY 12 HOURS active Not Available Not Available No t Available spironolacto ne 25 mg tablet TAKE 1/2 TABLET BY MOUTH DAILY active Not Available Not Available Not Available levothyroxin e 100 mcg tablet TAKE 1 TABLET BY MOUTH EVERY DAY active Not Available Not Available No t Available pantoprazole 40 mg tablet,delay ed release TAKE 1 TABLET BY MOUTH EVERY 12 HOURS active Not Available Not Available No [...] .23 Not Available Not Available Not Available furosemide 20 mg tablet TAKE 1 TABLET DAILY FOR 10 DAYS active Not Available Not Available No t Available gabapentin 100 mg capsule TAKE 1 CAPSULE BY MOUTH THREE TIMES A DAY active Not Available Not Available Not Available metoprolol succinate ER 25 mg tablet,exten ded release 24 hr TAKE 1 TABLET (25 MG TOTAL) BY MOUTH DAILY. active Not Available Not Available No t Available ketoconazole 2 % topical cream Apply twice daily under breasts x 2 weeks on; 1 week off 2023 active last rx 05.31 .23 Not Available Not Available Not Available ondansetron 4 mg disintegrati ng tablet 4 MG ORALLY EVERY 6 HOURS NEEDED FOR NAUSEA AND VOMITING active Not Available Not Available No t Available ciclopirox 0.77 % topical gel APPLY [...] 100 MG ORALLY EVERY 12 HOURS FOR 7 DAYS MUST ADMINISTER WITH A MEAL/FOOD active [...] Not Available Not Available No t Available Gemtesa 75 mg tablet TAKE 1 TABLET BY MOUTH EVERY DAY active Not Available Not Available No t Available Vitals Date Recorded Body height Body mass index (BMI) Body weight Heart rate Oxygen saturation Oxygen saturation in Arterial blood by Pulse oximetry Provider Name and Address Organization Details Last Updated DateTime 4 160.02 cm 28 kg/m2 66061.5 9 g 70 /min 95 % 95 % [facility] 4 11:34:13 Date Recorded Body height Heart rate Oxygen saturation Oxygen saturation in Arterial blood by Pulse oximetry Provider Name and Address Organization Details Last Updated DateTime 03/07/2024 160.02 cm 70 /min 95 % 95 % [facility] 03/07/2024 12:10:52 Social History None recorded. Functional Status None recorded. Mental Status None recorded. Family History Nothing Reported. Medical History No medical history recorded. Gynecological HistoryNo gynecological history recorded. Obstetrics History GPAL:G 0 P 0 0 0 0 Past Encounters Encounter ID Performer Location Encounter Start Date Encounter Closed Date Diagnosis/Indication Diagnosis SNOMED-CT Code Diagnosis ICD10 Code Diagnosis Note [id number] Leslie Nevarez MD [facility] ([place]) [address] [place] [phone] 07/15/2023 11:35:25 07/15/2023 12:36:02 Seborrheic keratosis 472436102 L82.1 History of malignant neoplasm of skin 750111463 Z85.828 Rosacea 666511544 L71.9 History of actinic keratosis 7638421363 104 Z87.2 [id number] Shubham Hetah MD [address] [facility] [place] [address] [place] [address] 12/28/2023 11:20:13 12/28/2023 13:23:10 Pain of right shoulder region 5896701380 M25.511 Cervical radiculopathy 32559839 M54.12 Calcific t endinitis of right shoulder 4569203199 83758 M75.31 Degenerati on of cervical intervertebral disc 62325838 M50.322 [id number] Shubham Heath MD [address] [place] [address] [place] [address] 03/07/2024 11:43:02 03/07/2024 12:43:03 Neck pain 00714254 M54.2 Degenerati on of cervical intervertebral disc 13588476 M50.322 Cervical spondylosis 387 874806 M47.892 Health Concerns Section Related Observation LastModified by Organization Detai ls LastModified Time None Recorded Concern Status LastModified by Organization Details LastModified Time None Recorded Advance Directives Directive None Recorded Payers Encounter Date Sequence Insurance Name Policy Number Policy Schmidt Covered Member ID Schmidt Member ID Guarantor Name 07/15/2023 1 [place] Sera Hardydler [id number] Sera Kaylynn Weidler 07/15/2023 2 [employer] - PLAN F (MEDICARE SUPPLEMENT) Sera Sharmar [id number] Sera Kaylynn Hardydler 12/28/2023 1 [place] S[place] Kaylynn Hardydler [id number] 0 [place] Kaylynn Weidler 12/28/2023 2 [employer] - PLAN F (MEDICARE SUPPLEMENT) Sera Sharmar [id number] 0 Sera Sharmamariana 03/07/2024 1 [place] Sera Shaffer [id number] 0 Sera Sharmamariana 03/07/2024 2 [employer] - PLAN F (MEDICARE SUPPLEMENT) Sera Shaffer [id number] 0 Sera Shaffer Notes Date Note Type Note Provider Name and Address Organization Details Recorded Time 07/15/2023 text/html Pt presents toda y for TBSE. Hx NMSC. Pt reports issues with dryness and rosacea on her face, she deferred total skin exam. Intertrigo- keto cream and hydorcortisone Leslie Nevarez MD [address] [facility], [place], [address], [facility] 07/15/2023 12:55:42 OBGyn Episode No OBEpisode recorded.
--- OUTSIDE RECORDS SUMMARY | 2024-05-04 08:38 | XMS_ITS | Encounter Summary ---
Author Organization [facility] Address [address] [place] [address] Care Team Providers Care Assistant Operator Name Role Phone Mary Barber MD Unavailable Qasim Garrett DO Primary Care Provider [phone] Tiffany Badillo MD Unavailable [phone] Erick Abdi MD Unavailable [phone] Jim Tamez MD Unavailable Monique Iverson NP Unavailable [phone] Bruno Can MD Unavailable [phone] Encounter Details Date Type Department Care Team (Late st Contact Info) Description 11/02/[address] [facility] Anesthesia [address] [place] [address] Melia Buenrostro Anesthesia Record Procedure Summary Procedure [...] Organization Meetings Never 03/27/2019 Marital Status 03/27/2019 [facility] - Occupational [...] Sex Assigned at Female 03/07/2024 1:44 PM INTERNATIONAL SALES REPRESENTATIVE Legal Sex Female 10:54 PM CDT Gender [...] Assessment Author Status No 03/28/2019 12:00 AM INTERNATIONAL SALES REPRESENTATIVE 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 Answer Date of Assessment Author Status No 03/28/2019 12:00 AM INTERNATIONAL SALES REPRESENTATIVE Acti ve * Do you have [...] Care Team (Late st Contact Info) Description 05/16/2024 1:15 AM CDT Allied Health/[facility]urse [facility] [address] [place] [phone] Mary Barber MD [address] [place] [address] 08/23/2024 9:00 AM CDT Office Visit [facility] [place] [phone] Bruno Can MD [address] [address] documented as of this encounter Visit Diagnoses Not on filedocumented in this encounter Care Teams Assistant Operator Relationship Specialty Start Date End Date Qasim Garrett DO [address] [place] [address] PCP - General FAMILY PRACTICE 04/13/19 Mary Barber MD [address] [place] [phone] EP [employer] Ax Developer CLINICAL CARDIAC ELECTROPHYSIOLOGY 09/15/16 Tiffany Badillo MD [address] [place] [address] Consulting Physician INTERVENTIONAL CARDIOLOGY 12/23/19 04/15/24 Erick Abdi MD [address] [place] [address] Consulting Physician PAIN MANAGEMENT 09/06/20 Jim Tamez MD [address] [place] [id number] Consulting Physician INTERNAL MEDICINE 09/10/23 Monique Iverson NP [address] [address] Nurse Practitioner Nurse Practitioner Acute Care 03/07/24 Bruno Can MD [address] [address] Physician INTERVENTIONAL CARDIOLOGY 04/15/24 documented as of this encounter
--- OUTSIDE RECORDS SUMMARY | 2024-05-04 08:38 | XMS_ITS | Encounter Summary ---
Author Organization [facility] Address [address] [place] [address] Care Team Providers Care Fitter Tacker Name Role Phone Mary Barber MD Unavailable Thomas Brian MD Unavailable Unavailable [facility] Unavailable [phone] Qasim Garrett DO Primary Care Provider [phone] Tiffany Badillo MD Unavailable [phone] Erick Abdi MD Unavailable [phone] Jim Tamez MD Unavailable Monique Iverson NP Unavailable [phone] Bruno Can MD Unavailable [phone] Encounter Details Date Type Department Care Team (Late st Contact Info) Description 04/25/2017 Abstract [facility] CONVERSION [address] [place] [address] , Generic Conversion, Social History Tobacco Use Types Packs/Day Years Used Date Smoking Tobacco: Former Cigarettes Q uit: 09/23/1971 Smokeless Tobacco: Never Alcohol Use Standard Drinks/Week Comments No 0 (1 standard drink = 0.6 oz pur e alcohol) Comments Unknown Sex and Gender Information Value Date Recorded Sex Assigned at Female 03/07/2024 1:44 PM GENERAL ACCOUNTING MANAGER Legal Sex Female 10:54 PM CDT Gender [...] 05/16/2024 1:15 AM CDT Allied Health/Nurse Visit [facility] [address] [place] [phone] Mary Barber MD [address] [place] [phone] 08/23/2024 9:00 AM CDT Office Visit [facility] [place] [address] Bruno Can MD [address] [facility] [address] [place] [address] documented as of this encounter Visit Diagnoses Not on filedocumented in this encounter Care Teams Fitter Tacker Relationship Specialty Start Date End Date Qasim Garrett DO [address] [place] [address] PCP - General FAMILY PRACTICE 04/13/19 Mary Barber MD [address] [place] [phone] EP Rug Frame Mounter CLINICAL CARDIAC ELECTROPHYSIOLOGY 09/15/16 Thomas Brian MD [address] [place] [phone] CARDIOVASCULAR DISEASE 09/16/16 04/12/19 Josey Schwartz [facility] [address] [facility] [address] [place] [phone] Nurse Practitioner Electrophysiology 09/18/16 12/22/19 Tiffany Badillo MD [address] [place] [address] Consulting Physician INTERVENTIONAL CARDIOLOGY 12/23/19 04/15/24 Erick Abdi MD [address] [address] Consulting Physician PAIN MANAGEMENT 09/06/20 Jim Tamez MD [address] [phone] Consulting Physician INTERNAL MEDICINE 09/10/23 Monique Iverson NP [address] [facility]. [address] [place] [phone] Nurse Practitioner Nurse Practitioner Acute Care 03/07/24 Bruno Can MD [address] [place] [facility], [address] [address] Physician INTERVENTIONAL CARDIOLOGY 04/15/24 documented as of this encounter
--- OUTSIDE RECORDS SUMMARY | 2024-05-04 08:38 | XMS_ITS | Patient Health Record ---
Author Organization [facility] Address [address] [place], [place] [address] Care Team Providers Care Business Analytics Specialist Name Role Phone Qasim Garrett Unavailable Unavailable GILA CERVANTES Unavailable [phone] RANDY FLOWERS Unavailable [phone] Allergies Allergen (clinical drug ingredient) Drug/Non Drug [...] Encounters Encounter Location Date Provider Diagnosis [address] [id number] 01/21/2024 RANDY FLOWERS Other hammer toe(s) (acquired), right foot M20.41 ; Tinea unguium B35.1 ; Other hammer toe(s) (acquired), left foot M20.42 ; Pain in right toe(s) M79.674 ; Pain in left toe(s) M79.675 ; Unspecified atherosclerosis of [place] arteries of extremities, bilateral legs I70.203 ; Acquired keratosis [keratoderma] palmaris et plantaris L85.1 and Localized edema R60.0 [address] [place], [place] [id number] 06/18/2023 RANDY FLOWERS Other hammer toe(s) (acquired), right foot M20.41 ; Tinea unguium B35.1 ; Other hammer toe(s) (acquired), left foot M20.42 ; Pain in right toe(s) M79.674 ; Pain in left toe(s) M79.675 and Unspecified atherosclerosis of [place] arteries of extremities, bilateral legs I70.[address] [id number] 09/17/2023 RANDY FLOWERS Other hammer toe(s) (acquired), right foot M20.41 ; Tinea unguium B35.1 ; Other hammer toe(s) (acquired), left foot M20.42 ; Pain in right toe(s) M79.674 ; Pain in left toe(s) M79.675 and Unspecified atherosclerosis of [place] arteries of extremities, bilateral legs I70.[address] [id number] 11/19/2023 RANDY FLOWERS Other hammer toe(s) (acquired), right foot M20.41 ; Tinea unguium B35.1 ; Other hammer toe(s) (acquired), left foot M20.42 ; Pain in right toe(s) M79.674 ; Pain in left toe(s) M79.675 ; Unspecified atherosclerosis of [place] arteries of extremities, bilateral legs I70.203 ; Acquired keratosis [keratoderma] palmaris et plantaris L85.1 ; Contusion of right lesser toe(s) without damage to nail, subsequent encounter S90.121D and Localized edema R60.0 Assessments Encounter Date Diagnosis (ICD Code) Assessment Notes Treatment Notes Treatment Clinical Notes Section Notes 06/18/2023 Tinea unguium (ICD-10 - B35.1) Aseptic [...] (acquired), left foot (ICD-10 - M20.42) 06/18/2023 Pain in right toe(s) (ICD-10 - [...] (ICD-10 - M79.675) 06/18/2023 Unspecified atherosclerosis of [place] arteries of extremities, bilateral legs (ICD-10 - I70.203) Patient educated on risks and aggravating factors of PVD, including conservative treatment options such as a diet and exercise regimen to aid in slowing progression of vascular disease 11/19/2023 Unspecified atherosclerosis of [place] arteries of extremities, bilateral legs (ICD-10 - I70.203) Patient educated on risks and aggravating factors of PVD, including conservative treatment options such as a diet and exercise regimen to aid in slowing progression of vascular disease 09/17/2023 Unspecified atherosclerosis of [place] arteries of extremities, bilateral legs (ICD-10 - I70.203) Patient educated on risks and aggravating factors of PVD, including conservative treatment options such as a diet and exercise regimen to aid in slowing progression of vascular disease 01/21/2024 Unspecified atherosclerosis of [place] arteries of extremities, bilateral legs (ICD-10 - [...] salt warm water soaks. Plan Of Treatment No Information Insurance Providers Payer Name Payer Address Payer Phone Subscriber Number Group Number Insured Name Patient Relationship to Insured Coverage Start Date Coverage End Date Medicare Part B [place] [address] [place] [phone] [id number] [place], [place] Self - patient is the insured [facility] Insurance [address] [address] [place] [id number] [place], [place] Self - patient is the insured
--- OUTSIDE RECORDS SUMMARY | 2024-05-04 08:38 | XMS_ITS ---
Author Organization [facility] Address [address] [place], [place] [id number] Care Team Providers Care Cold Press Loader Name Role Phone Qasim Garrett Unavailable Unavailable RANDY FLOWERS Unavailable [phone] Allergies Allergen (clinical drug ingredient) Drug/Non Drug Allergy documented on EMR Reaction Allergy Type Onset Date Status Opioid Analgesics (uncoded) Unknown Allergy 10/17/2021 active Substance with penicillin structure and antibacterial mechanism of action (substance) Penicillins Unknown Drug Allergy 10/17/2021 active REASON FOR VISIT *General care Encounters Encounter Location Date Provider Diagnosis [address] [id number] 11/19/2023 RANDY FLOWERS Other hammer toe(s) (acquired), right foot M20.41 ; Tinea unguium B35.1 ; Other hammer toe(s) (acquired), left foot M20.42 ; Pain in right toe(s) M79.674 ; Pain in left toe(s) M79.675 ; Unspecified atherosclerosis of [place] arteries of extremities, bilateral legs I70.203 ; [...] (ICD-10 - M79.675) 11/19/2023 Unspecified atherosclerosis of [place] arteries of extremities, bilateral legs (ICD-10 - [...] OTC and prescription treatments. Unspecified atherosclerosis of [place] arteries of extremities, bilateral legs Patient educated [...] Appt Details Follow Up: 3 Months, Reason: Progress Notes * RAKAN SHAWDOB:[birth year] (88 yo F)Acc No.[id number]:11/19/2023 Patient: RAKAN CAMACHO Provider: Agustin FLOWERS :1935 A ge:88 Y S ex:Female Date:11/19/2023 Address:[address] [place] [address], [place] [id number] Subjective: * Chief Complaints: * 1 . *General care. * HPI: H PI: General care Wes may presents to the office for at risk foot care. Patient states that their nails are thickened, elongated and painful. Patient states that it is aggravated by shoe gear. Onset is gradual. Patient denies being diabetic., Patient is taking prescription blood thinners., Date last seen by Dr. Garrett was 10/2023., Initials mca Wes may states she had stubbed and injured her right foot second toe about a week ago and has noticed bruising and swelling to the area since then with some tenderness, . * ROS: G eneral / Constitutional: Patient denies w eakness. R espiratory: Patient denies c hronic cough, shortness of breath, sputum production. C ardiovascular: Patient denies c hest pain, history of NC, irregular heartbeat. M usculoskeletal: Patient complains of h ammertoes. P eripheral Vascular: Patient denies b lanching of skin, cold extremities, decreased sensation in extremities. S kin: Patient complains of n ail changes, discoloration. ? N eurologic: Patient denies d izziness, gait abnormality, headache. * Medical History: * Allergies: O pioid Analgesics: Allergy - Onset Date 10/17/2021, Penicillins: Allergy - Onset Date 10/17/2021. Objective: * Vitals: * Examination: P hysical Examination: V ascular: Dorsalis Pedis pulse noted at 1/4 right [...] first metatarsophalangeal joint bilaterally. Assessment: * Assessment: 1. T inea unguium - B35.1 (Primary) 2 . O ther hammer toe(s) (acquired), right foot - M20.41 3 . O ther hammer toe(s) (acquired), left foot - M20.42 ? 4 . P ain in right toe(s) - M79.674 5 . P ain in left toe(s) - M79.675 6 . U nspecified atherosclerosis of [place] arteries of extremities, bilateral legs - I70.203 7 . A cquired keratosis [keratoderma] palmaris et plantaris - L85.1 8 . C ontusion of right lesser toe(s) without damage to nail, subsequent encounter - S90.121D 9 . L ocalized edema - R60.0 Plan: * Treatment: 2. O ther hammer toe(s) (acquired), right foot Notes: The patient was educated regarding how [...] were discussed, but conservative options were emphasized. 3. U nspecified atherosclerosis of [place] arteries of extremities, bilateral legs Notes: Patient educated on risks and aggravating factors of PVD, including conservative treatment options such as a diet and exercise regimen to aid in slowing progression of vascular disease ? 4. 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 After removal of overlying extensive hyperkeratosis, healthy tissue was noted and care was taken to assure that no undermining or probing was present. It should be noted that no probing was noted and no infection or drainage was noted. 5. O thers Notes: - instructed patient to avoid walking barefoot, monitor bruising as nail continues to grow out, nail is not loose at this time, manage swelling to digit with epsom salt warm water soaks. ? * Procedure Codes: 1 1056 TRIM SKIN LESIONS, 2 TO 4, Modifiers: Q8 , 80895 DEBRIDE NAIL, 6 OR MORE, Modifiers: 59 , Q8 * Follow Up: 3 Months * Billing Information: * Visit Code: 98388 Office Visit, Est Pt., Level 3. * Procedure Codes: 12881 TRIM SKIN LESIONS, 2 TO 4. Modifiers: Q8 76356 DEBRIDE NAIL, 6 OR MORE. Modifiers: 59, Q8 * Sign off status: Completed true * Provider: Agustin FLOWERS Date: Generated for Daniel Edmond/Nas on: 0 05/04/2024 08:38 AM CDT History and Physical Notes * HPI (History [...]
--- OUTSIDE RECORDS SUMMARY | 2024-05-04 08:38 | XMS_ITS ---
Author Organization [facility] Address [address] [place], [place] [address] Care Team Providers Care Neuroscience Director Na Name Role Phone Qasim Garrett Unavailable Unavailable GILA CERVANTES Unavailable [phone] REASON FOR VISIT *General care Encounters Encounter Location Date Provider Diagnosis [address] [place], [place] [phone] 03/31/2024 GILA CERVANTES Plan Of Treatment No Information Progress Notes * RAKAN SHAWDOB:[birth year] (89 yo F)Acc No.[id number]:03/31/2024 Patient: RAKAN CAMACHO Provider: Leatha Cervantes DPM :1935 A ge:89 Y S ex:Female Date:03/31/2024 Address:[address] [place] [address], [facility] Subjective: * Chief Complaints: * 1 . *General care. * Medical History: Objective: * Vitals: Assessment: Plan: * Treatment: * Billing Information: * Visit Code: * Procedure Codes: * Electronic signature of GILA CERVANTES DPM on 05/04/2024 at 08:37 AM CDT Sign off status: Pending * Provider: Leatha Cervantes DPM Date: 03/31/2024 Generated for Printi ng/Faxing/eTransmitting on: 0 05/04/2024 08:37 AM CDT
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
--- OUTSIDE RECORDS SUMMARY | 2024-05-04 08:38 | XMS_ITS | Encounter Summary ---
Author Organization [facility] Address [address] [place] [address] Care Team Providers Care Finish Saw Operator Name Role Phone Mary Barber MD Unavailable Thomas Brian MD Unavailable Unavailable [facility]y Schwartz [facility] Unavailable [phone] Qasim Garrett DO Primary Care Provider [phone] Tiffany Badillo MD Unavailable [phone] Erick Abdi MD Unavailable [phone] Jim Tamez MD Unavailable Monique Iverson NP Unavailable [phone] Bruno Can MD Unavailable [phone] Encounter Details Date Type Department Care Team (Late st Contact Info) Description 01/24/2015 Abstract [facility] [address] [place] [address] Mary Barber MD [address] [place] [address] Social History Tobacco Use Types Packs/Day Years Used Date Smoking Tobacco: Never Alcohol Use Standard Drinks/Week Comments No 0 (1 standard drink = 0.6 oz pur e alcohol) Comments Unknown Sex and Gender Information Value Date Recorded Sex Assigned at Female 03/07/2024 1:44 PM HEAD MACHINE FEEDER Legal Sex Female 10:54 PM CDT Gender Identity Not on file Sexual Orientation Not on file Occupation Industry Job Start Date Job End Date Retired Not on file Not on file Not on file documented as of this encounter Plan of Treatment Upcoming Encounters Date Type Department Care Team ([facility] st Contact Info) Description 05/16/2024 1:15 AM CDT [facility] [address] [place] [address] Mary Barber MD [address] [place] [address] 08/23/2024 9:00 AM CDT [facility] [address] [place] [address] [place] [address] Bruno Can MD [address] [facility] [address] [place] [address] documented as of this encounter Visit Diagnoses Not on filedocumented in this encounter Care Teams Finish Saw Operator Relationship Specialty Start Date End Date Qasim Garrett DO [address] [place] [address] PCP - General FAMILY PRACTICE 04/13/19 Mary Barber MD [address] [place] [address] EP Training Consultant CLINICAL CARDIAC ELECTROPHYSIOLOGY 09/15/16 Thomas Brian MD [address] [place] [address] CARDIOVASCULAR DISEASE 09/16/16 04/12/19 Josey Schwartz [facility] [address] [place] [address] [place] [address] [id number] Nurse Practitioner Electrophysiology 09/18/16 12/22/19 Tiffany Badillo MD [address] [place] [address] Consulting Physician INTERVENTIONAL CARDIOLOGY 12/23/19 04/15/24 Erick Abdi MD [address] [place] [address] Consulting Physician PAIN MANAGEMENT 09/06/20 Jim Tamez MD [address] [place] [address] [id number] Consulting Physician INTERNAL MEDICINE 09/10/23 Monique Iverson NP [address] [place] [address]. [address] [place] [address] Nurse Practitioner Nurse Practitioner Acute Care 03/07/24 Bruno Can MD [address] [place] [address] [id number] Physician INTERVENTIONAL CARDIOLOGY 04/15/24 documented as of this encounter
--- OUTSIDE RECORDS SUMMARY | 2024-05-04 08:38 | XMS_ITS ---
Author Organization [facility] Address [address] [place], [place] [address] Care Team Providers Care Strapper Name Role Phone Qasim Garrett Unavailable Unavailable RANDY FLOWERS Unavailable [phone] Allergies Allergen (clinical drug ingredient) Drug/Non Drug Allergy documented on EMR Reaction Allergy Type Onset Date Status Opioid Analgesics (uncoded) Unknown Allergy 10/17/2021 active Substance with penicillin structure and antibacterial mechanism of action (substance) Penicillins Unknown Drug Allergy 10/17/2021 active REASON FOR VISIT *General care Encounters Encounter Location Date Provider Diagnosis [address] [id number] 01/21/2024 RANDY FLOWERS Other hammer toe(s) (acquired), right foot M20.41 ; Tinea unguium B35.1 ; Other hammer toe(s) (acquired), left foot M20.42 ; Pain in right toe(s) M79.674 ; Pain in left toe(s) M79.675 ; Unspecified atherosclerosis of diomede arteries of extremities, bilateral legs I70.203 ; [...] (ICD-10 - M79.675) 01/21/2024 Unspecified atherosclerosis of diomede arteries of extremities, bilateral legs (ICD-10 - [...] OTC and prescription treatments. Unspecified atherosclerosis of diomede arteries of extremities, bilateral legs Patient educated [...] Reason: Progress Notes * RAKAN SHAWDOB:[birth year] (89 yo F)Acc No.[id number]:01/21/2024 Patient: RAKAN CAMACHO Provider: Agustin FLOWERS :1935 A ge:88 Y S ex:Female Date:01/21/2024 Address:[address] [place] [address], [id number] Subjective: * Chief Complaints: * 1 . *General care. * HPI: H PI: General care P atient presents to the office for at risk foot care. Patient states that their nails are thickened, elongated and painful. Patient states that it is aggravated by shoe gear. Onset is gradual. Patient denies being diabetic., Patient is taking prescription blood thinners., Date last seen by Dr. Garrett was 01/2024., Initials mca. * ROS: G eneral / Constitutional: Patient denies w eakness. R espiratory: Patient denies c hronic cough, shortness of breath, sputum production. C ardiovascular: Patient denies c hest pain, history of NV, irregular heartbeat. M usculoskeletal: Patient complains of [...] M79.675 6 . U nspecified atherosclerosis of diomede arteries of extremities, bilateral legs - I70.203 7 . A cquired keratosis [keratoderma] palmaris et plantaris - L85.1 8 . L ocalized edema - R60.0 Plan: [...] were emphasized. 3. U nspecified atherosclerosis of diomede arteries of extremities, bilateral legs Notes: Patient [...] and no infection or drainage was noted. * Procedure Codes: 1 1056 TRIM SKIN LESIONS, 2 TO 4, Modifiers: Q8 , 95256 DEBRIDE NAIL, 6 OR MORE, Modifiers: 59 , Q8 * Follow Up: 3 Months * Billing Information: * Visit Code: * Procedure Codes: 35651 TRIM SKIN LESIONS, 2 TO 4. Modifiers: Q8 87493 DEBRIDE NAIL, 6 OR MORE. Modifiers: 59, Q8 * Electronic signature of AILYN FLOWERS DPM on 05/04/2024 at 08:38 AM CDT Sign off status: Pending * Provider: Agustin FLOWERS Date: 1 03/23/2023 Generated for Daniel mar/Nannette/Nas on: 0 05/04/2024 08:38 AM CDT History [...]
[2024-05-04 08:43] LABS: Basophils Absolute Auto 0.02 K/mm3 (0.00-0.10); Basophils Percent Auto 0.5 % (0.0-1.0); Eosinophils Absolute Auto 0.16 K/mm3 (0.02-0.50); Eosinophils Percent Auto 3.8 % (1.0-6.0); Hematocrit 41.6 % (35.0-42.0); Hemoglobin 13.3 g/dL (11.7-13.8); Immature Granulocyte Absolute 0.01 K/mm3 (0.00-0.00); Immature Granulocyte Percent A 0.2 % (0.0-0.0); Lymphocytes Absolute Auto 1.35 K/mm3 (1.10-4.50); Lymphocytes Percent Auto 32.3 % (18.0-42.0); Mean Corpuscular Hemoglobin 31.8 pg (27.0-31.0); Mean Corpuscular Volume 99.5 fL (78.0-102.0); Mean Platelet Volume 8.8 fl (9.2-11.8); Monocytes Absolute Auto 0.38 K/mm3 (0.10-0.90); Monocytes Percent Auto 9.1 % (2.0-11.0); Neutrophils Absolute Auto 2.26 K/mm3 (1.70-7.20); Neutrophils Percent Auto 54.1 % (50.0-70.0); Platelet Count Result 163 K/mm3 (150-420); Red Blood Count 4.18 M/mm3 (4.20-5.40); Red Cell Distribution Width 13.5 % (11.6-14.4); White Blood Count 4.2 K/mm3 (4.8-10.8)
[2024-05-04 08:50] LABS: Hemoglobin A1C 5.5 % (<5.7)
[2024-05-04 09:46] LABS: Alanine Aminotransferase 35 U/L (14-59); Albumin Level 3.5 g/dL (3.4-5.0); Alkaline Phosphatase 98 U/L (46-116); Anion Gap 5 mmol/L (4-12); Aspartate Amino Transferase 32 U/L (15-37); Bilirubin,Total 0.6 mg/dL (0.00-1.00); Blood Urea Nitrogen 34 mg/dL (7-18); Calcium 9.5 mg/dL (8.5-10.1); Carbon Dioxide 33 mmol/L (21-32); Chloride 107 mmol/L (98-108); Cholesterol 107 mg/dL (0-200); Estimated Glomerular Filt Rate 51; Glucose 114 mg/dL (70-99); HDL Direct 42 mg/dL (40-60); LDL Cholesterol Calculated 57 mg/dL (<130); Magnesium 1.9 mg/dL (1.8-2.4); Osmolality Calculated 308 mOsm/kg (285-295); Potassium 4.3 mmol/L (3.5-5.1); Sodium 145 mmol/L (136-145); Total Protein 7.3 g/dL (6.4-8.2); Triglycerides 39 mg/dL (0-150); Vitamin B12 885 pg/mL (193-986)
[2024-05-04 09:47] LABS: Folic Acid > 20.0 ng/mL (8.6->20)
[2024-05-04 09:50] LABS: Thyroid Stimulating Hormone Reflex 1.63 u/IU/mL (0.36-3.74)
[2024-05-06 17:13] LABS: Iron 48 ug/dL (50-170); Percent Iron Saturation 13 % (12-57)
== END 2024-05-04 08:28 | disposition home or self-care (01) ==
LOC: CHSLAB 08:28
PROVIDERS: Nurse Practitioner Family; PCP Family Medicine; Visit Provider Family Medicine
DX: E03.9 Hypothyroidism, unspecified (principal); I50.9 Heart failure, unspecified; E11.9 Type 2 diabetes mellitus without complications; E53.8 Deficiency of other specified B group vitamins; E55.9 Vitamin D deficiency, unspecified
CPT/HCPCS: 36415; 80053; 80061; 82607; 82652; 82746; 83036; 83540; 83550; 83735; 84443; 85025

== ENCOUNTER 2024-05-10 16:42 | Emergency (ER) | payer MEDICARE, SELFPAY ==
--- NOTE | ~2024-05-10 | XR_ITS ---
EXAMINATION: XR lumbar spine 2-3V DATE: 05/10/2024 17:08 INDICATION: Sciatica with low back pain radiating down the right leg TECHNIQUE: Anteroposterior and lateral views of the lumbar spine, and cone-down lateral view of the l umbosacral junction were obtained. COMPARISON: Lumbar spine CT dated 10/28/2023 FINDINGS: 15 degrees lumbar dextroscoliosis. 2-3 mm retrolisthesis L1 on L2 and L2 on L3 and similar 2-3 mm ant erolisthesis L4 on L5. Vertebral body heights are normal. Mild left-sided predominant disc height los s at L1-L2 through L3-L4. Moderate disc height loss at L4-L5 which appears increased since prior CT. Multilevel moderate to severe lower lumbar predominant facet osteoarthritis. Moderate osteoarthritis at the bilateral sacroiliac joints. Multiple surgical clips in the epigastric region of the left uppe r quadrant. Couple cardiac pacemaker lead projecting over the inferior aspect of the heart. IMPRESSION: 1. 15 degrees lumbar dextroscoliosis with mild to moderate spondylosis with interval progression in n ow moderate disc height loss at L4-L5. Reviewed, dictated and finalized at location A. IMPRESSION: 1. 15 degrees lumbar dextroscoliosis with mild to moderate spondylosis with int erval progression in now moderate disc height loss at L4-L5.
[2024-05-10 16:46] VITALS: BP 146/85; PULSE 73; RESP 18; TEMP 36.5; O2SAT 99
--- NOTE | 2024-05-10 17:25 | ED_ITS ---
HPI - Back Pain/Injury General Chief Complaint: Extremity Problem,Nontraumatic Stated Complaint: rt. side hip pain Time Seen by Provider: 05/10/24 16:51 Source: patient Mode of arrival: ambulatory Limitations: no limitations History of Present Illness HPI Narrative: Patient is an 89-year-old female with right lower back pain with right hip and right posterior knee for the past few days. No injuries. MD elicited complaint: back pain Pertinent past history: other ( Hypothyroid, hypertension, hyperlipidemia, GERD) Onset (ago): day(s) ( 3) Timing: constant Severity: moderate Pain scale (0-10): 5 Similar Symptoms Previously: No Quality: burning, sharp and aching Location: lumbar spine Radiation: groin ( right), right upper leg and other ( right knee area) Exacerbating factors: movement Relieving factors: immobilization Context: turning/twisting and bending Associated symptoms: denies other symptoms Treatments prior to arrival: other ( none) Work related injury: No Related Data Home Medications ?Medication ?Instructions ?Recorded ?Confirmed ?Last Taken ?Type aspirin 81 mg tablet,delayed 162 mg PO DAILY 03/27/19 05/03/24 04/10/24 History release (Mahnaz Low Dose Aspirin) rosuvastatin 40 mg tablet 40 mg PO HS 03/27/19 05/03/24 04/10/24 History sacubitril 24 mg-valsartan 26 mg 1 tablet PO BID 11/26/20 05/03/24 04/10/24 History tablet (Entresto) cyclosporine 0.05 % eye drops in a 1 drp EACH EYE BID 07/13/23 05/03/24 04/10/24 History dropperette (Restasis) hkijcgjm-wyqv-fkpz 8 mg-folic 400 1 tablet PO DAILY 07/13/23 05/03/24 04/10/24 History mcg-K 50 mcg-lutein 300 mcg tablet (Centrum Silver Women) pantoprazole 40 mg tablet,delayed 40 mg PO Q12H PRN Acid Reflux 12/27/23 05/03/24 04/10/24 History release vibegron 75 mg tablet (Gemtesa) 75 mg PO DAILY 12/27/23 05/03/24 04/10/24 History Allergies Allergy/AdvReac Type Severity Reaction Status Date / Time Penicillins Allergy Severe Anaphylactic Verified 05/03/24 16:28 Shock hydrocodone AdvReac Severe NAUSEA AND Verified 05/03/24 16:28 VOMITING oxycodone AdvReac Severe Gastrointestinal Verified 05/03/24 16:28 Upset opiods AdvReac Severe Gastrointestinal Uncoded 05/03/24 16:28 Upset Review of Systems Review of Systems: All systems reviewed & are unremarkable except as noted in HPI and below Constitutional: Constitutional: Reports no additional constitutional complaints Eyes: Eyes: Reports no additional eye complaints ENT: Reports system reviewed and no additional complaints, except as documented Cardiovascular: Cardiovascular: Reports no additional cardiovascular complaints Respiratory: Respiratory: Reports no additional respiratory complaints Gastrointestinal: Gastrointestinal: Reports no additional gastrointestinal complaints Genitourinary: Genitourinary: Reports no additional female genitourinary complaints Musculoskeletal: Musculoskeletal: Reports no additional musculoskeletal complaints Integumentary/Breasts: Skin/Breast: Reports system reviewed and no additional complaints, except as docu Neurologic: Reports system reviewed and no additional complaints, except as documented Psychiatric: Psychiatric: Reports no additional psychiatric complaints Endocrine: Endocrine: Reports no additional endocrine complaints Hematologic/Lymphatic: Hematologic/Lymphatic: Reports no additional hematologic/lymphatic complaints Allergic/Immunologic: Allergic/Immunologic: Reports no additional allergic/immunologic complaints REPLACED BY [facility] Past Medical History Medical History Heart failure with reduced ejection fraction Echocardiogram in February 2021 showed mild to moderately dilated left ventricle with mild concentric hypertrophy and moderately depressed global systolic function with an LVEF of 40 to 45% with a mild to moderately dilated right ventricle. Chronic kidney disease, stage 3 Dysphagia Nondiabetic gastroparesis Anastomotic stricture of stomach Pacemaker DVT (deep venous thrombosis) CHF (congestive heart failure) Complications of gastric bypass surgery History of pulmonary embolism GERD (gastroesophageal reflux disease) TIA (transient ischemic attack) Hypothyroidism Hypertension Hyperlipidemia Atrial fibrillation Acute intra-cranial hemorrhage Surgical History Surgical History History of gastric surgery History of gastric bypass History of left knee replacement H/O craniotomy AICD present, double chamber Status post biventricular pacemaker S/P left atrial appendage ligation Family History Family History Father Acute myocardial infarction Mother Acute myocardial infarction Other Cerebrovascular accident Diabetes mellitus Family history of arthritis Family history of heart disease in male family member before age 55 Social History Social History Social History: Surrogate medical decision maker: Erika Irby, daughter. Code status: Full code. Smoking packs per day: 1 Smoking cigarettes per day: 20.0 Years smoked: 10 Smoking pack-years: 10.00 Smoking status: Former smoker Tobacco type: cigarettes Smoking end date: 02/10/72 Alcohol intake: never Substance use: never Substance use type: does not use Do You Feel Safe in your Home?: Yes Lack of Transportation: No Lack of Food: Never True Current Housing: I Have Housing Concerned About Future Housing: No Difficulty Paying Gas/Electric Bills: No Difficulty Paying for Meds: No Currently Unemployed: No Education: High School Diploma/GED Difficulty w/ Childcare or Family Care: No Living arrangements: alone Additional living arrangements comments: . Spiritual care concerns: No Exam Const: General: healthy appearing Nutritional Appearance: well nourished Orientation/consciousness: patient oriented x3 Limitations: no limitations HENMT: Head: normal to inspection Ears: external ears normal Face/Nose/Sinus: Normal external nose present Eyes: Conjunctivae: conjunctivae normal Pupils: Equal, round and reactive pupils present EOM: EOMs intact bilaterally Neck: Neck: normal visual inspection Chest: Chest palpation & inspection: normal inspection of the chest Resp: Effort & Inspection: normal respiratory effort and not labored Auscultation: clear to auscultation bilaterally and no crackles Cardio: Rate: regular rate Rhythm: regular rhythm Heart sounds: no murmurs GI: Inspection: non-distended GI Palp: Yes Soft to palpation and No Tenderness to palpation present (GI) Auscultation: normal bowel sounds : General: Yes bladder normal to palpation Back/Spine/Pelvis: Back: no CVA tenderness Other: tender midline spine to the right paraspinal area as well with radiation down to the right lower extremity; straight leg test positive on the right Skin: General skin exam: normal color Rashes: no rashes Wounds: no wounds Neuro: General: patient oriented x3 Cranial nerves: Yes Nystagmus not present Speech: normal speech Extrem: General: normal to inspection Psych: Mental Status: mental status grossly normal Affect: normal affect Attitude: cooperative Course Vital Signs Vital signs: Vital Signs Temperature 36.5 C 05/10/24 16:46 Pulse Rate 73 05/10/24 16:46 Respiratory Rate 18 05/10/24 16:46 Blood Pressure 146/85 H 05/10/24 16:46 Pulse Oximetry 99 05/10/24 16:46 Oxygen Delivery Room Air 05/10/24 16:46 Temperature 36.5 C 05/10/24 16:46 Pulse Rate 73 05/10/24 16:46 Respiratory Rate 18 05/10/24 16:46 Blood Pressure 146/85 H 05/10/24 16:46 Pulse Oximetry 99 05/10/24 16:46 Oxygen Delivery Room Air 05/10/24 16:46 MDM - Back Pain/Injury MDM Narrative Medical decision making narrative: patient is an 89-year-old female with right lower extremity and right lower back pains over the past few days. We will do an x-ray. Further she is concerned about medication interactions with her current home medicine. Steroids would be a good choice for this patient. Imaging Data Attestation: I personally reviewed and interpreted this imaging study as follows: Radiologist's impression: X-ray lumbar spine shows IMPRESSION: 1. 15 degrees lumbar dextroscoliosis with mild to moderate spondylosis with interval progression in now moderate disc height loss at L4-L5. Discharge Plan Discharge Clinical Impression: Sciatica Qualifiers: Laterality: right Qualified Code(s): M54.31 - Sciatica, right side Patient Disposition: Home, Self-Care Condition: Stable Instructions: Sciatica (ED) Patient Language: Welsh Prescriptions: New methylprednisolone [Medrol (Teto)] 4 mg tablets,dose pack See Rx Instructions .ROUTE .COMPLEX Qty: 21 0RF Rx Instructions: orally per package directions No Action sacubitril-valsartan [Entresto] 24-26 mg Tablet 1 tablet PO BID acetaminophen [Tylenol] 325 mg capsule 650 mg PO Q8H PRN (Reason: pain) Qty: 20 0RF pantoprazole 40 mg tablet,delayed release (DR/EC) 40 mg PO Q12H PRN (Reason: Acid Reflux) Gemtesa 75 mg tablet 75 mg PO DAILY aspirin [Mahnaz Low Dose Aspirin] 81 mg tablet,delayed release (DR/EC) 162 mg PO DAILY rosuvastatin 40 mg tablet 40 mg PO HS cyclosporine [Restasis] 0.05 % dropperette 1 drp EACH EYE BID Centrum Silver Women 8 mg iron-400 mcg-50 mcg Tablet 1 tablet PO DAILY levothyroxine 100 mcg tablet See Rx Instructions .ROUTE .COMPLEX Qty: 90 2RF Dose Instruction: TAKE 1 TABLET BY MOUTH EVERY DAY Rx Instructions: TAKE 1 TABLET BY MOUTH EVERY DAY Follow-up/Referrals: Qasim Garrett DO [Primary Care Provider] - Time of Disposition: 17:43
--- OUTSIDE RECORDS SUMMARY | 2024-05-10 17:35 | XMS_ITS ---
Author Organization [facility] Address [address] [place], [place] [address] Care Team Providers Care Professor Of Journalism Name Role Phone Qasim Garrett Unavailable Unavailable GILA CERVANTES Unavailable [phone] REASON FOR VISIT *General care Encounters Encounter Location Date Provider Diagnosis [facility] [address] [place], [place] [id number] 03/31/2024 GILA CERVANTES Plan Of Treatment No Information Progress Notes * RAKAN SHAWDOB:[birth year] (89 yo F)Acc No.[id number]:03/31/2024 Patient: RAKAN CAMACHO Provider: Leatha Cervantes DPM :1935 A ge:89 Y S ex:Female Date:03/31/2024 Address:[address] [place] [address], [facility] Subjective: * Chief Complaints: * 1 . *General care. * Medical History: Objective: * Vitals: Assessment: Plan: * Treatment: * Billing Information: * Visit Code: * Procedure Codes: * Electronic signature of GILA CERVANTES DPM on 05/10/2024 at 05:35 PM CDT Sign off status: Pending * Provider: Leatha Cervantes DPM Date: 03/31/2024 Generated for Printi ng/Faalcong/eTransmitting on: 0 05/10/2024 05:35 PM CDT
--- OUTSIDE RECORDS SUMMARY | 2024-05-10 17:36 | XMS_ITS | Encounter Summary ---
Author Organization [facility] Address [address] [place] [address] Care Team Providers Care Community Health Counselor Name Role Phone Mary Barber MD Unavailable Thomas Brian MD Unavailable Unavailable [facility] Unavailable [phone] Qasim Garrett DO Primary Care Provider [phone] Tiffany Badillo MD Unavailable [phone] Erick Abdi MD Unavailable [phone] Jim Tamez MD Unavailable Monique Iverson NP Unavailable [phone] Bruno Can MD Unavailable [phone] Encounter Details Date Type Department Care Team (Late st Contact Info) Description 04/25/2017 Abstract [facility] [address] [place] [address] , Generic Conversion, Social History Tobacco Use Types Packs/Day Years Used Date Smoking Tobacco: Former Cigarettes Q uit: 09/23/1971 Smokeless Tobacco: Never Alcohol Use Standard Drinks/Week Comments No 0 (1 standard drink = 0.6 oz pur e alcohol) Comments Unknown Sex and Gender Information Value Date Recorded Sex Assigned at Female 03/07/2024 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 Sex Female 10:54 PM [...] 05/16/2024 1:15 AM CDT [facility] [address] [place] [address] Mary Barber MD [address] [place] [address] 08/23/2024 9:00 AM CDT [facility] [address] [place] [address] [place] [address] Bruno Can MD [address] [facility] [address] [place] [address] documented as of this encounter Visit Diagnoses Not on filedocumented in this encounter Care Teams Community Health Counselor Relationship Specialty Start Date End Date Qasim Garrett DO [address] [place] [address] PCP - General FAMILY PRACTICE 04/13/19 Mary Barber MD [address] [place] [address] EP Microscopist CLINICAL CARDIAC ELECTROPHYSIOLOGY 09/15/16 Thomas Brian MD [address] [place] [address] CARDIOVASCULAR DISEASE 09/16/16 04/12/19 Josey Schwartz [facility] [address] [address] Nurse Practitioner Electrophysiology 09/18/16 12/22/19 Tiffany Badillo MD [address] [place] [address] Consulting Physician INTERVENTIONAL CARDIOLOGY 12/23/19 04/15/24 Erick Abdi MD [address] [place] [address] [id number] Consulting Physician PAIN MANAGEMENT 09/06/20 Jim Tamez MD [address] [place] [address] Consulting Physician INTERNAL MEDICINE 09/10/23 Monique Ivesron NP [address] [place] [address]. [address] [place] [address] [id number] Nurse Practitioner Nurse Practitioner Acute Care 03/07/24 Bruno aCn MD [address] [place] [address] [id number] Physician INTERVENTIONAL CARDIOLOGY 04/15/24 documented as of this encounter
--- OUTSIDE RECORDS SUMMARY | 2024-05-10 17:36 | XMS_ITS | Data Portability ---
Author Organization [facility], [address] [place] [address] [place] ([place]) Address [address] [place] [address] Care Team Providers Care General Internal Medicine Doctor Name Role Phone HI ROLON Primary Care Provider [phone] Assessment Encounter Date Assessment Date Assessment LastModified [...] of her right hand. She went to [facility] over the weekend. They diagnosed [...] does have a pacemaker. It is a [employer] that is MRI compatible. However, one of the leads is not a [place] lead and so they do not know [...] of her shoulder that were done as [facility]. She does have evidence of calcific [...] we can get approval for MRI. dmr Not available 12/28/2023 23:59:16 03/07/2024 03/07/2024 SUBJECTIVE: [...] is of unknown origin, it is not [employer], so we really cannot confirm whether or [...] be equal left and right in her filer and sander and wrist flexors and extenders. ASSESSMENT: Severe [...] we will be referring her upstairs. nita [email or web address] Not available 03/07/2024 20:22:11 Plan of Treatment [...] CT, cervical spine, w/o contrast 2024 025 [facility] Only - Ct Radiology, [address] [place] [address], [id number], 03/14/2024 13:36:38 XR, cervical spine, 2 or 3 view 2023 024 [facility] Only - Ct Radiology, [address] [place] [address], [id number], 12/28/2023 15:01:24 Medication Orders prednison e 10 mg tablet 2023 024 [id number], [address] [place], [place], [id number], 12/28/2023 15:01:24 cyclobenz aprine 10 mg tablet 2023 024 [id number], [address] [place], [place], [id number], 12/28/2023 15:01:24 Patient TargetsNo targets recorded. Patient [...] cholo spine , 2 or [address] [address] Teleph one [phone] Name: Boris Mcmullen 1922Ex am Date: 2023 [...] as above. Electr onical ly signed in [facility] by: CHAPO ALVAREZ MD on: 4 11:24 AM cc: Page PAGE 1 of [facility] - [facility] Radiology [address] [place] [address], [address], 12/28/2023 15:02:15 03/14/19 25 03/11/2024 CT, cervi cholo spine , w/o contr ast No observ ation record ed. [facility] Radiology [address] [place], [address], 03/15/2024 10:17:46 04/01/19 25 03/11/2024 CT, cervi cholo spine , w/o contr ast No observ ation record ed. [facility] Only - Ct Radiology [address] [place] [address], [address], 04/01/2024 16:40:07 Result Notes None recorded. Problems Name Problem SNOMED Code Status Onset Date Resolution Date Notes Provider Name and Address Organization Details Recorded Time Pain of right shoulder joint 195664140192 49636 Active 2023 Angie Plascencia [facility] 4 11:51:17 Pain of right shoulder region Active 2023 Angie Plascencia [facility] 4 11:51:28 Cervical radiculop athy 24119642 Active 2023 Angie Plascencia [facility] 4 12:38:50 Calcific tendiniti s of left shoulder 178730479815 108 Active 2023 Marcelina Boston [facility] 4 19:16:05 Calcific tendiniti s of right shoulder 795986098077 107 Active 2023 Marcelina Boston [facility] 4 19:16:10 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 95178174 [facility] 19:16[facility]38 Neck pain 50629621 Active 2024 Angie Plascencia null, [facility] 5 18:19:18 Cervical spondylos is 066889481 Active 2024 Marcelina Boston null, [facility] 5 12:13:14 Actinic keratosis 158268597 Active 2023 Radhika Kryee null, [facility] 4 11:11:22 Dry skin dermatiti s 935725653 Active 2023 Radhika Kyree null, [facility] 4 11:13:35 Rosacea 372189014 Active 2023 [facility]hika [facility], [facility] 4 11:13:42 Multiple benign melanocyt ic nevi 360501667 Active 2023 Left & Right upper extremity Radhika Kyree null, [facility] 4 11:14:03 Seborrhei c keratosis 369084967 Active 2023 Radhika Kyree null, [facility] 4 11:14:10 Solar lentigo 90332660 [facility] 11:14[facility]16 Intertrig o 33155815 [facility] 11:14:24 Severe dry skin 300112237 Active 2023 [facility] 4 11:52:57 Melanocyt ic nevus of right upper limb 785360450 Active 2023 [facility] 4 11:53:14 Melanocyt ic nevus of right lower limb 771135907886 108 Active 2023 [facility] 4 11:53:18 Lentigo - freckle 780835311 Active 2023 Renee Rubin [facility] 11:54:27 Problem Notes None recorded. Procedures Surgical History Date Name Laterality Status Provider Name and Address Organization Details Recorded Time excision of malignant neoplasm completed Selene Hardin [facility] 07/15/2023 10:01:24 Imaging Results Imaging Date Name Status LastModified by Organiz ation Details LastModified Time 12/28/2023 XR, cervical spine, 2 or 3 view completed [facility] Only - Ct Radiology [address] [place] [address], [address], 12/28/2023 15:02:15 03/11/2024 CT, cervical spine, w/o contrast completed [facility] Radiology [address] [place], [address], 03/15/2024 10:17:46 03/11/2024 CT, cervical spine, w/o contrast completed [facility] Only - Ct Radiology [address] [place] [address], [address], 04/01/2024 16:40:07 Procedure Notes None recorded. Medical Equipment None Reported. Allergies Allergen ID Allergen Name Allergen Category Reaction Reaction Severity Criticality Documentation Date Start Date Code Code System Note Provider Name and Address Organization Details Recorded Time 6930462 Levaquin medicatio n Not available Not available Not available 03/11/20232017 58299 2 RxNorm Not Available Not Available Not Available 8017211 oxycodone medicatio n Not available Not available Not available 03/11/20232017 7804 RxNorm Not Available Not Available Not Available 9331643 Product containin g penicilli n (product) medicatio n Not available Not available Not available 03/11/20232017 53885 8001 SNOMED Not Available Not Available Not Available 7786330 acetamino phen / hydrocodo ne medicatio n Not available Not available Not available 03/11/20232017 45496 2 RxNorm Not Available Not Available Not [...] Updated DateTime 4 160.02 cm 28 kg/m2 98734.5 9 g 70 /min 95 % 95 % [facility] 4 11:34:13 Date Recorded Body height Heart rate Oxygen saturation Oxygen saturation in Arterial blood by Pulse oximetry Provider Name and Address Organization Details Last Updated DateTime 03/07/2024 160.02 cm 70 /min 95 % 95 % [facility] 03/07/2024 12:10:52 Social History None recorded. Functional Status None recorded. Mental Status None recorded. Family History Nothing Reported. Medical History No medical history recorded. Gynecological HistoryNo gynecological history recorded. Obstetrics History GPAL:G 0 P 0 0 0 0 Past Encounters Encounter ID Performer Location Encounter Start Date Encounter Closed Date Diagnosis/Indication Diagnosis SNOMED-CT Code Diagnosis ICD10 Code Diagnosis Note [id number] Leslie Nevarez MD [facility] ([place]) [address] [place] [phone] 07/15/2023 11:35:25 07/15/2023 12:36:02 Seborrheic keratosis 385076251 L82.1 History of malignant neoplasm of skin 464176977 Z85.828 Rosacea 047843046 L71.9 History of actinic keratosis 5337714308 104 Z87.2 [id number] Shubham Heath MD [address] [facility] [address] [place] [address] 12/28/2023 11:20:13 12/28/2023 13:23:10 Pain of right shoulder region 9279473962 M25.511 Cervical radiculopathy 74460542 M54.12 Calcific t endinitis of right shoulder 9530844544 59869 M75.31 Degenerati on of cervical intervertebral disc 12393730 M50.322 [id number] Shubham Heath MD [address] [facility] [address] [place] [address] 03/07/2024 11:43:02 03/07/2024 12:43:03 Neck pain 25654803 M54.2 Degenerati on of cervical intervertebral disc 57373727 M50.322 Cervical spondylosis 387 645335 M47.892 Health Concerns Section Related Observation LastModified by Organization Detai ls LastModified Time None Recorded Concern Status LastModified by Organization Details LastModified Time None Recorded Advance Directives Directive None Recorded Payers Encounter Date Sequence Insurance Name Policy Number Policy Schmidt Covered Member ID Schmidt Member ID Guarantor Name 07/15/2023 1 [place] Sera Hardydler [id number] Sera Kaylynn Weidler 07/15/2023 2 [employer] - PLAN F (MEDICARE SUPPLEMENT) Sera Sharmar [id number] Sera Kaylynn Hardydler 12/28/2023 1 [place] S[place] Kaylynn Hardydler [id number] 0 [place] Kaylynn Weidler 12/28/2023 2 [employer] - PLAN F (MEDICARE SUPPLEMENT) Sera Sharmar [id number] 0 Sera Sharmamariana 03/07/2024 1 [place] Sera Shaffer [id number] 0 Sera Sharmamariana 03/07/2024 2 [employer] - PLAN F (MEDICARE SUPPLEMENT) Sera Shaffer [id number] 0 Sera Shaffer Notes Date Note Type Note Provider Name and Address Organization Details Recorded Time 07/15/2023 text/html Pt presents toda y for TBSE. Hx NMSC. Pt reports issues with dryness and rosacea on her face, she deferred total skin exam. Intertrigo- keto cream and hydorcortisone Leslie Nevarez MD [address] [facility], [place], [address], [facility] 07/15/2023 12:55:42 OBGyn Episode No OBEpisode recorded.
--- OUTSIDE RECORDS SUMMARY | 2024-05-10 17:36 | XMS_ITS | Encounter Summary ---
Author Organization [facility] Address [address] [place] [address] Care Team Providers Care Brim Setter Name Role Phone Mary Barber MD Unavailable Qasim Garrett DO Primary Care Provider [phone] Tiffany Badillo MD Unavailable [phone] Erick Abdi MD Unavailable [phone] Jim Tamez MD Unavailable Monique Iverson NP Unavailable [phone] Bruno Can MD Unavailable [phone] Encounter Details Date Type Department Care Team (Latest Contact Info) Description 03/17/2024 [facility]cent Message [facility] [place] [address] Tiffany Badillo MD [address] [place] [address] Entresto - problem filling at [...] than three times a week 03/27/2019 Attends [employer] Not on file 03/27 Active [...] Sex Assigned at Female 03/07/2024 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 Sex Female 10:54 PM CDT Gender [...] Upcoming Encounters Date Type Department Care Team ([facility] st Contact Info) Description 05/16/2024 1:15 AM CDT Allied Health/Nurse Visit [facility] [address] [place] [address] Mary Barber MD [address] [place] [address] 08/23/2024 9:00 AM CDT Office Visit [facility] [place] [address] Bruno Can MD [address] [facility] [address] [address] documented as of this encounter Visit Diagnoses Not on filedocumented in this encounter Care Teams Brim Setter Relationship Specialty Start Date End Date Qasim Garrett DO [address] [place] [address] PCP - General FAMILY PRACTICE 04/13/19 Mary Babrer MD [address] [place] [phone] EP Nuclear Plant Construction Worker CLINICAL CARDIAC ELECTROPHYSIOLOGY 09/15/16 Tiffany Badillo MD [address] [place], [place] [phone] Consulting Physician INTERVENTIONAL CARDIOLOGY 12/23/19 04/15/24 Erick Abdi MD [address] [place] [address] Consulting Physician PAIN MANAGEMENT 09/06/20 Jim Tamez MD [address] [place] [address] Consulting Physician INTERNAL MEDICINE 09/10/23 Monique Iverson NP [address] [place] [address]. [address] [place] [address] Nurse Practitioner Nurse Practitioner Acute Care 03/07/24 Bruno Can MD [address] [place] [id number] Physician INTERVENTIONAL CARDIOLOGY 04/15/24 documented as of this encounter
--- OUTSIDE RECORDS SUMMARY | 2024-05-10 17:36 | XMS_ITS | Encounter Summary ---
Author Organization [facility] Address [address] [place] [address] Care Team Providers Care Juice Weigher Name Role Phone Mary Barber MD Unavailable Thomas Brian MD Unavailable Unavailable Efren Josey [facility] Unavailable [phone] Qasim Garrett DO Primary Care Provider [phone] Tiffany Badillo MD Unavailable [phone] Erick Abdi MD Unavailable [phone] Jim Tamez MD Unavailable Monique Iverson NP Unavailable [phone] Bruno Can MD Unavailable [phone] Encounter Details Date Type Department Care Team (Late st Contact Info) Description 01/24/2015 Abstract [facility] [address] [place] [address] Mary Barber MD [address] [place] [address] Social History Tobacco Use Types Packs/Day Years Used Date Smoking Tobacco: Never Alcohol Use Standard Drinks/Week Comments No 0 (1 standard drink = 0.6 oz pur e alcohol) Comments Unknown Sex and Gender Information Value Date Recorded Sex Assigned at Female 03/07/2024 1:44 PM PRESS WASHER Legal Sex Female 10:54 PM CDT Gender Identity Not on file Sexual Orientation Not on file Occupation Industry Job Start Date Job End Date Retired Not on file Not on file Not on file documented as of this encounter Plan of Treatment Upcoming Encounters Date Type Department Care Team ([facility] Contact Info) Description 05/16/2024 1:15 AM CDT Allied Health[facility] [address] [place] [phone] Mary Barber MD [address] [place] [address] 08/23/2024 9:00 AM CDT Office Visit [facility] [place] [address] Bruno Can MD [address] [facility] [address] [place] [address] documented as of this encounter Visit Diagnoses Not on filedocumented in this encounter Care Teams Juice Weigher Relationship Specialty Start Date End Date Qasim Garrett DO [address] [place] [address] PCP - General FAMILY PRACTICE 04/13/19 Mary Barber MD [address] [place] [phone] EP Gunstock Repairer CLINICAL CARDIAC ELECTROPHYSIOLOGY 09/15/16 Thomas Brian MD [address] [place] [address] CARDIOVASCULAR DISEASE 09/16/16 04/12/19 Josey Schwartz [facility] [address] [address] Nurse Practitioner Electrophysiology 09/18/16 12/22/19 Tiffany Badillo MD [address] [place] [address] Consulting Physician INTERVENTIONAL CARDIOLOGY 12/23/19 04/15/24 Erick Abdi MD [address] [address] Consulting Physician PAIN MANAGEMENT 09/06/20 Jim Tamez MD [address] [place] [address] Consulting Physician INTERNAL MEDICINE 09/10/23 Monique Iverson NP [address] [facility]. [address] [place] [address] Nurse Practitioner Nurse Practitioner Acute Care 03/07/24 Bruno Can MD [address] [facility] [address] [place] [address] Physician INTERVENTIONAL CARDIOLOGY 04/15/24 documented as of this encounter
--- OUTSIDE RECORDS SUMMARY | 2024-05-10 17:36 | XMS_ITS | Encounter Summary ---
Author Organization [facility] Address [address] [place] [address] Care Team Providers Care Specification Manager Name Role Phone Mary Barber MD Unavailable Qasim Garrett DO Primary Care Provider [phone] Tiffany Badillo MD Unavailable [phone] Erick Abdi MD Unavailable [phone] Jim Tamez MD Unavailable Monique Iverson NP Unavailable [phone] Bruno Can MD Unavailable [phone] Encounter Details Date Type Department Care Team (Late st Contact Info) Description 11/02/2020 Hospital Orders Only [facility] Anesthesia [address] [place] [address] Melia Buenrostro Anesthesia Record Procedure Summary Procedure [...] Pressure ulcer/injury 03/28/19 0030 by Jonas Garcia CRNA Supraglottic Airway Placement Date: 08/26; Placement Time: [...] Organization Meetings Never 03/27/2019 Marital Status 03/27/2019 [facility] Occupat ional [facility] - [...] Sex Assigned at Female 03/07/2024 1:44 PM LAW TUTOR Legal Sex Female 10:54 PM CDT Gender [...] Author Status No 03/28/2019 12:00 AM LAW TUTOR 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 Answer Date of Assessment Author Status No 03/28/2019 12:00 AM LAW TUTOR Acti ve * Do you have serious difficulty walking or climbing stairs? Answer Date of Assessment Author Status Yes 03/28/2019 12:00 AM LAW TUTOR Jonas Garcia CRNA Active * Do you have difficulty dressing or bathing? Answer Date of Assessment Author Status No 03/28/2019 12:00 AM LAW TUTOR Jonas Garcia CRNA Active * Because of a physical, mental, or emotional condition, do you have difficulty doing errands alone such as visiting a doctor's office or shopping? Answer Date of Assessment Author Status No 03/28/2019 12:00 AM LAW TUTOR Jonas Garcia CRNA Active documented as of this encounter Mental Status * Because of a physical, mental, or emotional condition, do you have serious difficulty concentrating, remembering, or making decisions? Answer Entry Date Author Status No 03/28/2019 12:00 AM LAW TUTOR Jonas Garcia CRNA Active documented in this encounter Plan of Treatment Upcoming Encounters Date Type Department Care Team (Late st Contact Info) Description 05/16/2024 1:15 AM CDT Allied Health/Nurse Visit [facility] [address] [place] [phone] Mary Barber MD [address] [place] [address] 08/23/2024 9:00 AM CDT Office Visit [facility] [place] [address] Bruno Can MD [address] [facility] [address] [place] [address] documented as of this encounter Visit Diagnoses Not on filedocumented in this encounter Care Teams Specification Manager Relationship Specialty Start Date End Date Qasim Garrett DO [address] [place] [address] PCP - General FAMILY PRACTICE 04/13/19 Mary Barber MD [address] [place] [phone] EP Finance Accounting Internship CLINICAL CARDIAC ELECTROPHYSIOLOGY 09/15/16 Tiffany Badillo MD [address] [place], [place] [phone] Consulting Physician INTERVENTIONAL CARDIOLOGY 12/23/19 04/15/24 Erick Abdi MD [address] [place] [address] Consulting Physician PAIN MANAGEMENT 09/06/20 Jim Tamez MD [address] [place] [address] Consulting Physician INTERNAL MEDICINE 09/10/23 Monique Iverson NP [address] [facility]. [address] [place] [address] Nurse Practitioner Nurse Practitioner Acute Care 03/07/24 Bruno Can MD [address] [facility] [address] [place] [address] Physician INTERVENTIONAL CARDIOLOGY 04/15/24 documented as of this encounter
--- OUTSIDE RECORDS SUMMARY | 2024-05-10 17:36 | XMS_ITS ---
Author Organization [facility] Address [address] [place], [place] [address] Care Team Providers Care Delicatessen Clerk Name Role Phone Qasim Garrett Unavailable Unavailable RANDY FLOWERS Unavailable [phone] Allergies Allergen (clinical drug ingredient) Drug/Non Drug Allergy documented on EMR Reaction Allergy Type Onset Date Status Opioid Analgesics (uncoded) Unknown Allergy 10/17/2021 active Substance with penicillin structure and antibacterial mechanism of action (substance) Penicillins Unknown Drug Allergy 10/17/2021 active REASON FOR VISIT *General care Encounters Encounter Location Date Provider Diagnosis [address] [id number] 11/19/2023 RANDY FLOWERS Other hammer toe(s) (acquired), right foot M20.41 ; Tinea unguium B35.1 ; Other hammer toe(s) (acquired), left foot M20.42 ; Pain in right toe(s) M79.674 ; Pain in left toe(s) M79.675 ; 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 Unspecified atherosclerosis of tetlin arteries of extremities, bilateral legs Patient educated [...] * RAKAN SHAWDOB:[birth year] (88 yo F)Acc No.[id number]:11/19/2023 Patient: RAKAN CAMACHO Provider: Agustin FLOWERS :1935 A ge:88 Y S ex:Female Date:11/19/2023 Address:[address] [place] [address], [place] [id number] Subjective: * Chief Complaints: * 1 . [...] Patient denies c hest pain, history of [place], irregular heartbeat. M usculoskeletal: Patient complains of [...] M79.675 6 . U nspecified atherosclerosis of tetlin arteries of extremities, bilateral legs - I70.203 [...] were emphasized. 3. U nspecified atherosclerosis of tetlin arteries of extremities, bilateral legs Notes: Patient [...] LESIONS, 2 TO 4, Modifiers: Q8 , 41837 DEBRIDE NAIL, 6 OR MORE, Modifiers: 59 , Q8 * Follow Up: 3 Months * Billing Information: * Visit Code: 71702 Office Visit, Est Pt., Level 3. * Procedure Codes: 91626 TRIM SKIN LESIONS, 2 TO 4. Modifiers: Q8 28991 DEBRIDE NAIL, 6 OR MORE. Modifiers: 59, Q8 * Sign off status: Completed true * Provider: Agustin FLOWERS Date: Generated for Daniel Salinas on: 0 05/10/2024 05:35 PM CDT History and Physical Notes * HPI [...]
--- OUTSIDE RECORDS SUMMARY | 2024-05-10 17:36 | XMS_ITS | Clinical Summary ---
Author Organization [facility] Address [address] [place] [address] Care Team Providers Care Equipment Planner Name Role Phone Mary Barber MD Unavailable Qasim Garrett DO Primary Care Provider [phone] Erick Abdi MD Unavailable [phone] Jim Tamez MD Unavailable Monique Iverson NP Unavailable [phone] Bruno Can MD Unavailable [phone] Allergies Active Allergy Reactions Criticality Noted Date [...] STOCKINGS, DME,Indications:Le g edema,Hypercholest erolemia,Essential hypertension,Prima ry hypertension,terminal operator current use of antiarrhythmic drug,Pain and swelling [...] 03/07/2024 Leg edema 09/15/2023 VT (ventricular tachycardia) ([facility] 0 05/19/2023 Closed displaced fracture of [...] right ankle 01/28 Chronic congestive heart failure ([facility] HHS/ C) 10/22/2017 Premature ventricular contractions 09/22/2016 S/P AV trell ablation 09/08/2016 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 09/08/2016 H/O intracranial hemorrhage 09/08/2016 NICM (nonischemic cardiomyopathy) ([facility]/ [facility]) 12/18/2015 TIA (transient ischemic attack) Overview (12/18/2015): Came in for possible TIA today Hypertension Hyperlipidemia Paroxysmal atrial fibrillation ([facility]) Resolved Problems Problem Noted Date Diagnosed Date Resolved Date Acute pulmonary embolism ([facility]) 03/27/2019 08/31/2022 Pre-op examination 10/22/2017 0 Encounters Date Type Department Care Team Description 04/07/2024 Telephone [facility] [address] [place] [address] Mary Barber MD Cardiac Device Management 03/28/2024 Telephone [facility] [address] [place] [address] Tiffany Badillo MD Reschedule 03/17/2024 Telephone [facility] [address] [place] [address] Tiffany Badillo MD Refill Request 03/17/2024 MyChart Message Enc [facility] [place] [address] [place] [address] Tiffany Badillo MD Entresto - problem filling at pharmacy 03/15/2024 11:15 AM CRATER AND PACKER Office Visit [facility] [address] [place] [address] Jim Tamez MD Follow Up 03/15/2024 Travel 03/07/2024 2:00 PM CRATER AND PACKER Allied Health/Nurse Visit [facility] [address] [place] [address] Mary Barber MD In Clinic Device Check 03/07/2024 2:00 PM CRATER AND PACKER Office Visit [facility] [address] [place] [address] Monique Iverson NP Follow Up; Cardiac Device Management; Atrial Fibrillation 03/07/2024 Travel 03/04/2024 Orders Only [facility] [address] [place] [address] Mary Barber MD 03/03/2024 Telephone [facility] [address] [place] [phone] Mary Barber MD Information 03/02/2024 Telephone [facility] [address] [place] [address] Mary Barber MD Appointment Reminder 03/02/2024 Telephone [facility] [address] [place] [address] Jim Tamez MD Appointment Reminder 02/12/2024 Telephone [facility] [address] [place] [address] Mary Barber MD Reschedule from Last 3 Months Immunizations Name Administration Dates Next Due Tdap (Boostrix) 01/28/2019 Family History Medical History Relation Comments CABG Brother Stent Cardiac Brother [place] Father [place] Mother Heart Disease Other premature rouse ry [...] Organization Meetings Never 03/27/2019 Marital Status 03/27/2019 [facility] - Occupational [...] Sex Assigned at Female 03/07/2024 1:44 PM CRATER AND PACKER Legal Sex Female 10:54 PM CDT Gender Identity Not on file Sexual Orientation Not on file Occupation Industry Job Start Date Job End Date Retired Not on file Not on file Not on file Not on file Not on file Not on file Not on file Last Filed Vital Signs Vital Sign Reading Time Taken Comments Blood Pressure 139/77 03/15/2024 11:13 AM CRATER AND PACKER Pulse 70 03/15/2024 11:13 AM CRATER AND PACKER Temperature 36.7 C (98 F) 02/05/2023 11:06 AM CRATER AND PACKER Respiratory Rate 18 03/15/2024 11:13 AM CRATER AND PACKER Oxygen Saturation 99% 03/15/2024 11:13 AM CRATER AND PACKER Inhaled Oxygen Concentration - - Weight 73.5 kg (162 lb) 03/15/2024 11:13 AM CRATER AND PACKER Height 160 cm (5' 3 ) 03/15/2024 11:13 AM CRATER AND PACKER Body Mass Index 28.7 03/15/2024 11:13 AM CRATER AND PACKER Plan of Treatment Upcoming Encounters Date Type Department Care Team (Late st Contact Info) Description 05/16/2024 1:15 AM CDT [facility] [address] [place] [address] Mary Barber MD [address] [place] [address] 08/23/2024 9:00 AM CDT Office Visit [facility] [place] [address] Bruno Can MD [address] [facility] [address] [place], [place] [address] Health Maintenance Due Date Last Done Comments Annual Medicare Wellness Visit 02/17/2000 RSV Immunization or 60+ Years (1 - 1-dose 75+ series) 2010 Pneumococcal Vaccine: 65+ Years (2 of 2 - PPSV23 or PCV20) 03/25/2016 01/29/2016 Zoster Vaccines (2 of 2) 11/23/2017 09/28/2017 COVID-19 Vaccine (3 - 2023-2 5 season) 2023 03/24/2020, 02/25/2020 DTaP, Tdap and Td Vaccines ( 2 [...] this topic Medical Devices Implanted Type Area Relocation Counselor Device Identifier Shelf Expiration Date Model / Serial / Lot Meridian [employer] Momentum Bi-V-11/03/2022 Implanted:Qty: 1 on 11/03/2022 by Mary Barber MD ICD Whistle KATHI 08/06/2024 [id number] / [id number] / Description:DX: [place] [employer] Lv-04/04/2013 Implanted:04/04 (Quantity not on file) Lead Implant Whistle KATHI 4592-90 / [id number] / FlatStack Scientific Rv-04/04/2013 Implanted:04/04 (Quantity not on file) Lead Implant B[employer]ON [employer] KATHI [id number] / [id number] / Mer[employer] Ra-04/04/2013 Implanted:04/04 (Quantity not on file) Lead Implant [employer] SCIENTIFIC KATHI [id number] / [id number] / Explanted Type Area Relocation Counselor Device Identifier Shelf Expiration Date Model / Serial / Lot Bivad-04/04/2013 Implanted:2013 by Mary Barber MD (Quantity not on file) Explanted:Qty: 1 on 11/03/2022 by Mary Barber MD BiVAD Procedures Procedure Name Priority Date/Time Associated Diagnosis Comments ELECTROCARDIOGRAM (NON MIDMARK ACQUIRED) Routine 03/07/2024 2:00 PM CRATER AND PACKER VT (ventricular tachycardia) ([facility]) Paroxysmal atrial fibrillation ([facility]) from Last 3 Months Results * ELECTROCARDIOGRAM (03/07/2024 2:00 PM CRATER AND PACKER) 03/07/2024 2:00 PM CRATER AND PACKER Narrative [facility] - 03/08/2024 8:24 AM CRATER AND PACKER [facility] [address] [place] [address] Test Date: 2024-03-07 Pat Name: [facility] Department: [facility] Room: Gender: Female Stone Mill Operator: everardo : 1935 Requested By: MARY BARBER Order Number: [id number] Reading MD: Mary Barber Measurements Intervals Wilcox Rate: 70 P: [place]: 0 QRS: 59 QRSD: 121 T: -20 QT: 434 QTc: 469 Interpretive Statements ATRIAL FIBRILLATION WITH VENTRICULAR PACING ER AND PACKER Procedure Note Mary Barber MD - 03/08/2024 [facility] [address] [place] [address] Test Date: 2024-03-07 Pat Name: [facility] Department: 105 Room: Gender: Female Stone Mill Operator: everardo : 1935 Requested By: MARY BARBER Order Number: [id number] Reading MD: Mary Barber Measurements Intervals Wilcox Rate: 70 P: [place]: 0 QRS: 59 QRSD: 121 T: -20 QT: 434 QTc: 469 Interpretive Statements ATRIAL FIBRILLATION WITH VENTRICULAR PACING ER AND PACKER us Mary Barber MD PROCEDURES-ORDERABLE NO CHARGE F inal Result [facility] from Last 3 Months Insurance [facility] INS MEDICARE [facility] INS MEDICARE Advance Directives Documents on File Type Date Recorded Patient Engineering Project Designer Expl anation Advance Directives and Living Will 12/18/2017 1:17 PM 05/30/14 POA- Advance Directives and Living Will 11/14/2014 SHORT FORM POWER OF MARBLE SUPERVISOR Advance Directives and Living Will 11/14/2014 SHORT FORM POWER OF MARBLE SUPERVISOR Advance Directives and Living Will 06/24/2014 SHORT FORM POWER OF MARBLE SUPERVISOR Advance Directives and Living Will 06/24/2014 SHORT FORM POWER OF MARBLE SUPERVISOR * Full Code (Latest Code Status on File) Date Activated Date Inactivated Comments 11/06/2020 2:12 PM 11/07/2020 3:12 PM * Full Code Date Activated Date Inactivated Comments 03/28/2019 12:19 AM 04/02/2019 2:04 PM * Full Code Date Activated Date Inactivated Comments 01/28/2019 11:01 PM 02/04/2019 2:55 PM Care Teams Equipment Planner Relationship Specialty Start Date End Date Qasim Garrett DO [address] [place] [address] PCP - General FAMILY PRACTICE 04/13/19 Mary Barber MD [address] [place] [address] EP Mother Superior CLINICAL CARDIAC ELECTROPHYSIOLOGY 09/15/16 Erick Abdi MD [address] [place] [address] Consulting Physician PAIN MANAGEMENT 09/06/20 Jim Tamez MD [address] [place] [address] Consulting Physician INTERNAL MEDICINE 09/10/23 Monique Iverson NP [address] [place] [address]. [address] [place] [address] Nurse Practitioner Nurse Practitioner Acute Care 03/07/24 Bruno Can MD [address] [place] [address] Physician INTERVENTIONAL CARDIOLOGY 04/15/24
--- OUTSIDE RECORDS SUMMARY | 2024-05-10 17:36 | XMS_ITS ---
Author Organization [facility] Address [address] [place], [place] [address] Care Team Providers Care Merchandising Stock Associate Name Role Phone Qasim Garrett Unavailable Unavailable RANDY FLOWERS Unavailable [phone] Allergies Allergen (clinical drug ingredient) Drug/Non Drug Allergy documented on EMR Reaction Allergy Type Onset Date Status Opioid Analgesics (uncoded) Unknown Allergy 10/17/2021 active Substance with penicillin structure and antibacterial mechanism of action (substance) Penicillins Unknown Drug Allergy 10/17/2021 active REASON FOR VISIT *General care Encounters Encounter Location Date Provider Diagnosis [address] [id number] 01/21/2024 RANDY FLOWERS Other hammer toe(s) (acquired), right foot M20.41 ; Tinea unguium B35.1 ; Other hammer toe(s) (acquired), left foot M20.42 ; Pain in right toe(s) M79.674 ; Pain in left toe(s) M79.675 ; Unspecified atherosclerosis of bois forte arteries of extremities, bilateral legs I70.203 ; [...] (ICD-10 - M79.675) 01/21/2024 Unspecified atherosclerosis of bois forte arteries of extremities, bilateral legs (ICD-10 - [...] OTC and prescription treatments. Unspecified atherosclerosis of bois [place]te arteries of extremities, bilateral legs Patient educated [...] * RAKAN SHAWDOB:[birth year] (89 yo F)Acc No.[id number]:01/21/2024 Patient: RAKAN CAMACHO Provider: Agustin FLOWERS :1935 A ge:88 Y S ex:Female Date:01/21/2024 Address:[address] [place] [address], [facility] Subjective: * Chief Complaints: * 1 . [...] Patient denies c hest pain, history of ND, irregular heartbeat. M usculoskeletal: Patient complains of [...] M79.675 6 . U nspecified atherosclerosis of bois forte arteries of extremities, bilateral legs - I70.203 [...] were emphasized. 3. U nspecified atherosclerosis of bois forte arteries of extremities, bilateral legs Notes: Patient [...] LESIONS, 2 TO 4, Modifiers: Q8 , 45206 DEBRIDE NAIL, 6 OR MORE, Modifiers: 59 , Q8 * Follow Up: 3 Months * Billing Information: * Visit Code: * Procedure Codes: 88297 TRIM SKIN LESIONS, 2 TO 4. Modifiers: Q8 64699 DEBRIDE NAIL, 6 OR MORE. Modifiers: 59, Q8 * Electronic signature of AILYN FLOWERS DPM on 05/10/2024 at 05:35 PM CDT Sign off status: Pending * Provider: Agustin FLOWERS Date: 1 03/23/2023 Generated for Daniel mar/Nannette/Nas on: 0 05/10/2024 05:35 PM CDT History [...]
--- OUTSIDE RECORDS SUMMARY | 2024-05-10 17:36 | XMS_ITS | Patient Health Record ---
Author Organization [facility] Address [address] [place], [place] [id number] Care Team Providers Care Sheet Metal Assembler Name Role Phone Qasim Garrett Unavailable Unavailable GILA CERVANTES Unavailable [phone] RANDY FLOWERS Unavailable [phone] Allergies Allergen (clinical drug ingredient) Drug/Non Drug [...] 06/18/2023 Encounters Encounter Location Date Provider Diagnosis [address] [id number] 01/21/2024 RANDY FLOWERS Other hammer toe(s) (acquired), right foot M20.41 ; Tinea unguium B35.1 ; Other hammer toe(s) (acquired), left foot M20.42 ; Pain in right toe(s) M79.674 ; Pain in left toe(s) M79.675 ; Unspecified atherosclerosis of unga arteries of extremities, bilateral legs I70.203 ; Acquired keratosis [keratoderma] palmaris et plantaris L85.1 and Localized edema R60.0 [place] [address] [place], [place] [id number] 06/18/2023 RANDY FLOWERS Other hammer toe(s) (acquired), right foot M20.41 ; Tinea unguium B35.1 ; Other hammer toe(s) (acquired), left foot M20.42 ; Pain in right toe(s) M79.674 ; Pain in left toe(s) M79.675 and Unspecified atherosclerosis of unga arteries of extremities, bilateral legs I70.[address] [id number] 09/17/2023 RANDY FLOWERS Other hammer toe(s) (acquired), right foot M20.41 ; Tinea unguium B35.1 ; Other hammer toe(s) (acquired), left foot M20.42 ; Pain in right toe(s) M79.674 ; Pain in left toe(s) M79.675 and Unspecified atherosclerosis of unga arteries of extremities, bilateral legs I70.[address] [id number] 11/19/2023 RANDY FLOWERS Other hammer toe(s) (acquired), right foot M20.41 ; Tinea unguium B35.1 ; Other hammer toe(s) (acquired), left foot M20.42 ; Pain in right toe(s) M79.674 ; Pain in left toe(s) M79.675 ; Unspecified atherosclerosis of unga arteries of extremities, bilateral legs I70.203 ; [...] (ICD-10 - M79.675) 06/18/2023 Unspecified atherosclerosis of unga arteries of extremities, bilateral legs (ICD-10 - I70.203) Patient educated on risks and aggravating factors of PVD, including conservative treatment options such as a diet and exercise regimen to aid in slowing progression of vascular disease 11/19/2023 Unspecified atherosclerosis of unga arteries of extremities, bilateral legs (ICD-10 - I70.203) Patient educated on risks and aggravating factors of PVD, including conservative treatment options such as a diet and exercise regimen to aid in slowing progression of vascular disease 09/17/2023 Unspecified atherosclerosis of unga arteries of extremities, bilateral legs (ICD-10 - I70.203) Patient educated on risks and aggravating factors of PVD, including conservative treatment options such as a diet and exercise regimen to aid in slowing progression of vascular disease 01/21/2024 Unspecified atherosclerosis of unga arteries of extremities, bilateral legs (ICD-10 - [...] Date Coverage End Date Medicare Part B [place] [address] [place] [phone] [id number] [place], [place] Self - patient is the insured [facility] Insurance [address] [address] [place] [address] [id number] [place] Self - patient is the insured
[2024-05-10 17:54] VITALS: BP 138/81; PULSE 68; RESP 16; TEMP 36.6; O2SAT 99
== END 2024-05-10 18:00 | disposition home or self-care (01) ==
PROVIDERS: Emergency Provider Emergency Medicine; PCP Family Medicine
DX: M54.31 Sciatica, right side (principal); E03.9 Hypothyroidism, unspecified; I10 Essential (primary) hypertension; E78.5 Hyperlipidemia, unspecified; I13.0 Hypertensive heart and chronic kidney disease with heart failure and stage 1 through stage 4 chronic kidney disease, or unspecified chronic kidney disease; I50.9 Heart failure, unspecified; N18.30 Chronic kidney disease, stage 3 unspecified; I48.91 Unspecified atrial fibrillation; Z86.73 Personal history of transient ischemic attack (TIA), and cerebral infarction without residual deficits; Z79.899 Other long term (current) drug therapy; Z86.718 Personal history of other venous thrombosis and embolism; Z87.891 Personal history of nicotine dependence
CPT/HCPCS: 72100; 99283

== ENCOUNTER 2024-05-20 09:43 | Outpatient (CLI) | payer MEDICARE, SELFPAY ==
--- NOTE | ~2024-05-20 | CT_ITS ---
Noncontrast CT scan of the lumbar spine CLINICAL HISTORY: Back pain radiating to hips TECHNIQUE: Axial noncontrast imaging of the lumbar spine was performed. Sagittal and coronal reformat valente images were constructed. Dose reduction technique was used on this scan by utilizing automated ex posure control and iterative reconstruction technique. The dose-length product (DLP) was 1098.73 mGy- cm. COMPARISON: 10/28/2023 FINDINGS: No acute fracture seen. Osseous alignment unchanged. There is 5 mm retrolisthesis of L1 ove r L2. There is 3 mm retrolisthesis of L2 over L3. At L1-L2, there is moderate to advanced degenerative disc narrowing. No significant disc bulge or her niation. Minimal facet arthropathy. No central canal stenosis or there is moderate left neural forami nal narrowing. At L2-L3, there is mild degenerative spurring. There is moderate facet arthropathy. No definite disc bulge or herniation. No definite central canal stenosis. Possible minimal bilateral neural foraminal narrowing. At L3-L4, there is mild disc bulge with moderate facet arthropathy. There is probable mild central ca nal stenosis. Neural foramina are preserved. At L4-L5, there is disc bulge with severe facet arthropathy. There is moderate to severe spinal canal stenosis/thecal sac compression. There is mild to moderate right neural foraminal narrowing. There i s mild left neural foraminal narrowing. At L5-S1, there is no disc bulge or herniation. No spinal canal stenosis. There is mild to moderate b ilateral neural foraminal narrowing. Paravertebral soft tissues are unremarkable. Impression: Moderate degenerative spondylosis overall, as detailed above. 5 mm retrolisthesis of L1 over L2. 3 mm retrolisthesis of L2 over L3. Reviewed, dictated and finalized at location . Impression: Moderate degenerative spondylosis overall, as detailed above. 5 mm retrolisthesis of L1 over L2. 3 mm retrolisthesis of L2 over L3.
--- NOTE | ~2024-05-20 | XR_ITS ---
AP view of the pelvis and AP and lateral views of the bilateral hips Clinical history: Pain Findings: No acute fracture or dislocation is seen. Osseous alignment is anatomic. Bilateral hip and SI joint spaces are preserved. Soft tissues are unremarkable. Impression: No significant abnormality is seen. Reviewed, dictated and finalized at location . Impression: No significant abnormality is seen.
--- OUTSIDE RECORDS SUMMARY | 2024-05-20 10:14 | XMS_ITS | Encounter Summary ---
Author Organization [facility] Address [address] [place] [address] Care Team Providers Care Multiple Knife Edge Trimmer Operator Name Role Phone Mary Cuenca MD Unavailable Qasim Garrett DO Primary Care Provider [phone] Erick Abdi MD Unavailable [phone] Jim Tamez MD Unavailable Monique Iverson NP Unavailable [phone] Bruno Can MD Unavailable [phone] Reason for Visit * Reason Onset Date Comments Cardiac Device Management 05/18/2024 Encounter Details Date Type Department Care Team (Late st Contact Info) Description 05/18/2024 Telephone [facility] ie [address] [place] [address] Mary Cuenca MD [address] [place] [address] Cardiac Device Management Social History [...] than three times a week 03/27/2019 Attends Alevism Services Not on file 03/27 Active Member of Clubs or Organizations Not on f ile 03/27/2019 Attends Club or Organization Meetings Never 03/27/2019 Marital Status 03/27/2019 [facility] - [...] Sex Assigned at Female 03/07/2024 1:44 PM ROPEMAN Legal Sex Female 10:54 PM CDT Gender [...] Progress Notes * Coy Diop RN - 05/18/2024 10:47 AM CDT Images from the original note were not included. Perioperative Management of Pacemakers/Defibrillators Patient Name: Sera Shaffer Date of : 1935 Surgery Specifications: Type of Surgery: Cervical spine RF ablation Location of Surgery: [facility] [place] (Electrocautery, Lithotripsy) expected? [x] Yes [] No Device Specifications: Device Type: [] Pacemaker [] Single Chamber [] Medtronic [] Dual Chamber [x] Corryton [employer] [x] ICD [x] Biventricular [] Chapin/St Lamin [] Biotronik [] Usman Device Programming: Pacing Mode: DDDR Minimum pacing rate: 60 Maximum pacing rate: 120 ICD VT therapy: 150 (monitor)/180/210 bpm Effect of magnet on device: Effect on pacing function: NONE Effect on ICD VT therapy: Temporarily suspends tachy therapies until magnet removed Device function normal? [x] Yes [] No [] Unknown Is patient pacing-dependent? 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 Mary Cuenca Signature: MARY CUENCA MD Date: 05/20/2024 * Coy Diop RN - 05/18/2024 10:37 AM CDT Received fax from [facility] requesting periop worksheet Please fax worksheet back to Dr Abdi office at [phone] Pt to have cervical RF ablation - RF (thermal ablation) documented in this encounter Plan of Treatment Upcoming Encounters Date Type Department Care Team (Late st Contact Info) Description 08/23/2024 9:00 AM CDT Office Visit [facility] [place] [address] Bruno Can MD [address] [facility] [address] [place] [address] 08/29/2024 2:50 AM CDT [facility] [address] [place] [address] Mary Cuenca MD [address] [place] [address] documented as of this encounter Visit Diagnoses Not on filedocumented in this encounter Care Teams Multiple Knife Edge Trimmer Operator Relationship Specialty Start Date End Date Qasim Garrett DO [address] [place] [address] PCP - General FAMILY PRACTICE 04/13/19 Mary Cuenca MD [address] [place] [address] EP Actuarial Intern CLINICAL CARDIAC ELECTROPHYSIOLOGY 09/15/16 Erick Abdi MD [address] [place] [address] Consulting Physician PAIN MANAGEMENT 09/06/20 Jim Tamez MD [address] [place] [address] Consulting Physician INTERNAL MEDICINE 09/10/23 Monique Iverson NP 9 [facility]. [address] [place] [id number] Nurse Practitioner Nurse Practitioner Acute Care 03/07/24 Bruno Can MD [address] [id number] Physician INTERVENTIONAL CARDIOLOGY 04/15/24 documented as of this encounter
--- OUTSIDE RECORDS SUMMARY | 2024-05-20 10:14 | XMS_ITS | Encounter Summary ---
Author Organization [facility] Address [address] [place] [address] Care Team Providers Care Corporate Logistics Manager Name Role Phone Mary Barber MD Unavailable Qasim Garrett DO Primary Care Provider [phone] Tiffany Badillo MD Unavailable [phone] Erick Abdi MD Unavailable [phone] Jim Tamez MD Unavailable Monique Iverson NP Unavailable [phone] Bruno Can MD Unavailable [phone] Encounter Details Date Type Department Care Team (Latest Contact Info) Description 03/17/2024 Astley Clarke Message [facility] [place] [address] Tiffany Badillo MD [address] [place] [address] Entresto - problem filling at [...] Organization Meetings Never 03/27/2019 Marital Status 03/27/2019 [facility] - Occupational [...] Sex Assigned at Female 03/07/2024 1:44 PM JAVA SWING DEVELOPER Legal Sex Female 10:54 PM CDT Gender [...] Description 08/23/2024 9:00 AM CDT Office Visit [facility] [place] [address] Bruno Can MD [address] [facility] [address] [address] 08/29/2024 2:50 AM CDT Allied Health/Nurse Visit [facility] [address] [place] [phone] Mary Barber MD [address] [place] [address] documented as of this encounter Visit Diagnoses Not on filedocumented in this encounter Care Teams Corporate Logistics Manager Relationship Specialty Start Date End Date Qasim Garrett DO [address] [place] [address] PCP - General FAMILY PRACTICE 04/13/19 Mary Barber MD [address] [place] [address] EP Prison Classification Counselor CLINICAL CARDIAC ELECTROPHYSIOLOGY 09/15/16 Tiffany Badillo MD [address] [place], [place] [phone] Consulting Physician INTERVENTIONAL CARDIOLOGY 12/23/19 04/15/24 Erick Abdi MD [address] [place] [address] Consulting Physician PAIN MANAGEMENT 09/06/20 Jim Tamez MD [address] [place] [address] Consulting Physician INTERNAL MEDICINE 09/10/23 Monique Iverson NP [address] [place] [address]. [address] [place] [id number] Nurse Practitioner Nurse Practitioner Acute Care 03/07/24 Bruno Can MD [address] [place] [id number] Physician INTERVENTIONAL CARDIOLOGY 04/15/24 documented as of this encounter
--- OUTSIDE RECORDS SUMMARY | 2024-05-20 10:14 | XMS_ITS ---
Author Organization [facility] Address [address] [place], [place] [address] Care Team Providers Care Ip Litigation Paralegal Name Role Phone Qasim Garrett Unavailable Unavailable GILA CERVANTES Unavailable [phone] REASON FOR VISIT *General care Encounters Encounter Location Date Provider Diagnosis [place] [address] [place], [place] [address] 03/31/2024 GILA CERVANTES Plan Of Treatment No Information Progress Notes * RAKAN SHAWDOB:[birth year] (89 yo F)Acc No.[id number]:03/31/2024 Patient: RAKAN CAMACHO Provider: Leatha Cervantes DPM :1935 A ge:89 Y S ex:Female Date:03/31/2024 Address:[address] [place] [address], [id number] Subjective: * Chief Complaints: * 1 . *General care. * Medical History: Objective: * Vitals: Assessment: Plan: * Treatment: * Billing Information: * Visit Code: * Procedure Codes: * Electronic signature of GILA CERVANTES DPM on 05/20/2024 at 10:14 AM CDT Sign off status: Pending * Provider: Leatha Cervantes DPM Date: 03/31/2024 Generated for Printi ng/Faxing/eTransmitting on: 0 05/20/2024 10:14 AM CDT
--- OUTSIDE RECORDS SUMMARY | 2024-05-20 10:14 | XMS_ITS ---
Author Organization [facility] Address [address] [place], [place] [address] Care Team Providers Care Brand Executive Name Role Phone Qasim Garrett Unavailable Unavailable RANDY FLOWERS Unavailable [phone] Allergies Allergen (clinical drug ingredient) Drug/Non Drug Allergy documented on EMR Reaction Allergy Type Onset Date Status Opioid Analgesics (uncoded) Unknown Allergy 10/17/2021 active Substance with penicillin structure and antibacterial mechanism of action (substance) Penicillins Unknown Drug Allergy 10/17/2021 active REASON FOR VISIT *General care Encounters Encounter Location Date Provider Diagnosis [address] [id number] 01/21/2024 RANDY FLOWERS Other hammer toe(s) (acquired), right foot M20.41 ; Tinea unguium B35.1 ; Other hammer toe(s) (acquired), left foot M20.42 ; Pain in right toe(s) M79.674 ; Pain in left toe(s) M79.675 ; 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 [...] M79.675 6 . U nspecified atherosclerosis of marshall arteries of extremities, bilateral legs - I70.203 [...] were emphasized. 3. U nspecified atherosclerosis of marshall arteries of extremities, bilateral legs Notes: Patient [...] LESIONS, 2 TO 4, Modifiers: Q8 , 87553 DEBRIDE NAIL, 6 OR MORE, Modifiers: 59 , Q8 * Follow Up: 3 Months * Billing Information: * Visit Code: * Procedure Codes: 19969 TRIM SKIN LESIONS, 2 TO 4. Modifiers: Q8 63099 DEBRIDE NAIL, 6 OR MORE. Modifiers: 59, Q8 * Electronic signature of AILYN FLOWERS DPM on 05/20/2024 at 10:14 AM CDT Sign off status: Pending * Provider: Agustin FLOWERS Date: 1 03/23/2023 Generated for Daniel mar/Nannette/Nas on: 0 05/20/2024 10:14 AM CDT History and Physical Notes * [...]
--- OUTSIDE RECORDS SUMMARY | 2024-05-20 10:14 | XMS_ITS | Encounter Summary ---
Author Organization [facility] Address [address] [place] [address] Care Team Providers Care Sander Setter Name Role Phone Mary Barber MD Unavailable Thomas Brian MD Unavailable Unavailable Efren Jose[facility] Unavailable [phone] Qasim Garrett DO Primary Care Provider [phone] Tiffany Badillo MD Unavailable [phone] Erick Abdi MD Unavailable [phone] Jim Tamez MD Unavailable Monique Iverson NP Unavailable [phone] Bruno Can MD Unavailable [phone] Encounter Details Date Type Department Care Team (Late st Contact Info) Description 04/25/2017 Abstract [facility] [address] [place] [address] , Generic Conversion, Social History Tobacco Use Types Packs/Day Years Used Date Smoking Tobacco: Former Cigarettes Q uit: 09/23/1971 Smokeless Tobacco: Never Alcohol Use Standard Drinks/Week Comments No 0 (1 standard drink = 0.6 oz pur e alcohol) Comments Unknown Sex and Gender Information Value Date Recorded Sex Assigned at Female 03/07/2024 1:[address] TECH Legal Sex Female 10:54 PM CDT Gender [...] Description 08/23/2024 9:00 AM CDT Office Visit [facility] [place] [address] Bruno Can MD [address] [facility] [address] [place] [address] 08/29/2024 2:50 AM CDT Allied Health/Nurse Visit [facility] ld [address] [place] [address] Mary Barber MD [address] [place] [address] documented as of this encounter Visit Diagnoses Not on filedocumented in this encounter Care Teams Sander Setter Relationship Specialty Start Date End Date Qasim Garrett DO [address] [place] [address] PCP - General FAMILY PRACTICE 04/13/19 Mary Barber MD [address] [place] [address] EP Director Of Regulatory Affairs CLINICAL CARDIAC ELECTROPHYSIOLOGY 09/15/16 Thomas Brian MD [address] [place] [address] CARDIOVASCULAR DISEASE 09/16/16 04/12/19 Jose[facility] Schwartz [facility] [address] [id number] Nurse Practitioner Electrophysiology 09/18/16 12/22/19 Tiffany Badillo MD [address] [place] [address] Consulting Physician INTERVENTIONAL CARDIOLOGY 12/23/19 04/15/24 Erick Abdi MD [address] [place] [address] Consulting Physician PAIN MANAGEMENT 09/06/20 Jim Tamez MD [address] [place] [address] Consulting Physician INTERNAL MEDICINE 09/10/23 Monique Iverson NP [address] [place] [address]. [address] [place] [id number] Nurse Practitioner Nurse Practitioner Acute Care 03/07/24 Bruno Can MD [address] [place] [id number] Physician INTERVENTIONAL CARDIOLOGY 04/15/24 documented as of this encounter
--- OUTSIDE RECORDS SUMMARY | 2024-05-20 10:14 | XMS_ITS | Encounter Summary ---
Author Organization [facility] Address [address] [place] [address] Care Team Providers Care Computer Application Developer Name Role Phone Mary Barber MD Unavailable Thomas Brian MD Unavailable Unavailable [facility] Jose[facility] Unavailable [phone] Qasim Garrett DO Primary Care Provider [phone] Tiffany Badillo MD Unavailable [phone] Erick Abdi MD Unavailable [phone] Jim Tamez MD Unavailable Monique Iverson NP Unavailable [phone] Bruno Can MD Unavailable [phone] Encounter Details Date Type Department Care Team (Late st Contact Info) Description 01/24/2015 Abstract [facility] [address] [place] [address] Mary Barber MD [address] [place] [address] Social History Tobacco Use Types Packs/Day Years Used Date Smoking Tobacco: Never Alcohol Use Standard Drinks/Week Comments No 0 (1 standard drink = 0.6 oz pur e alcohol) Comments Unknown Sex and Gender Information Value Date Recorded Sex Assigned at Female 03/07/2024 1:44 PM [employer] Legal Sex Female 10:54 PM CDT Gender Identity Not on file Sexual Orientation Not on file Occupation Industry Job Start Date Job End Date Retired Not on file Not on file Not on file documented as of this encounter Plan of Treatment Upcoming Encounters Date Type Department Care Team (Late st Contact Info) Description 08/23/2024 9:00 AM CDT Office Visit [facility] [place] [address] Bruno Can MD [address] [facility] [address] [place] [address] 08/29/2024 2:50 AM CDT [facility] [address] [place] [address] Mary Barber MD [address] [place] [address] documented as of this encounter Visit Diagnoses Not on filedocumented in this encounter Care Teams Computer Application Developer Relationship Specialty Start Date End Date Qasim Garrett DO [address] [place] [address] PCP - General FAMILY PRACTICE 04/13/19 Mary Barber MD [address] [place] [address] EP Rotating Field Assembler CLINICAL CARDIAC ELECTROPHYSIOLOGY 09/15/16 Thomas Brian MD [address] [place] [address] CARDIOVASCULAR DISEASE 09/16/16 04/12/19 [facility] [address] [facility] [address] [place] [address] Nurse Practitioner Electrophysiology 09/18/16 12/22/19 Tiffany Badillo MD [address] [place] [address] Consulting Physician INTERVENTIONAL CARDIOLOGY 12/23/19 04/15/24 Erick Abdi MD [address] [address] Consulting Physician PAIN MANAGEMENT 09/06/20 Jim Tamez MD [address] [place] [address] Consulting Physician INTERNAL MEDICINE 09/10/23 Monique Iverson NP [address] [facility] [address] [place] [address] Nurse Practitioner Nurse Practitioner Acute Care 03/07/24 Bruno Can MD [address] [facility] [address] [place] [address] Physician INTERVENTIONAL CARDIOLOGY 04/15/24 documented as of this encounter
--- OUTSIDE RECORDS SUMMARY | 2024-05-20 10:15 | XMS_ITS | Clinical Summary ---
Author Organization [facility] Address [address] [place] [address] Care Team Providers Care Snaker Tractor Driver Name Role Phone Mary Barber MD Unavailable Qasim Garrett DO Primary Care Provider [phone] Erick Abdi MD Unavailable [phone] Jim Tamez MD Unavailable Monique Iverson NP Unavailable [phone] Bruno Can MD Unavailable [phone] Allergies Active Allergy Reactions Criticality Noted Date [...] STOCKINGS, DME,Indications:Le g edema,Hypercholest erolemia,Essential hypertension,Prima ry hypertension,long term care social worker current use of antiarrhythmic drug,Pain and swelling [...] 03/07/2024 Leg edema 09/15/2023 VT (ventricular tachycardia) ([facility]) 0 05/19/2023 Closed displaced fracture of cuboid [...] right ankle 01/28 Chronic congestive heart failure ([facility]/ C) 10/22/2017 Premature ventricular contractions 09/22/2016 S/P AV trell ablation 09/08/2016 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 09/08/2016 H/O intracranial hemorrhage 09/08/2016 NICM (nonischemic cardiomyopathy) ([facility]/ CC) 12/18/2015 TIA (transient ischemic attack) Overview (12/18/2015): Came in for possible TIA today Hypertension Hyperlipidemia Paroxysmal atrial fibrillation ([facility]) Resolved Problems Problem Noted Date Diagnosed Date Resolved Date Acute pulmonary embolism ([facility]) 03/27/2019 08/31/2022 Pre-op examination 10/22/2017 0 Encounters Date Type Department Care Team Description 05/18/2024 Telephone [facility] ie [address] [place] [address] Mary Barber MD Cardiac Device Management 05/16/2024 1:15 AM CDT Allied Health/Nurse Visit [facility] ie [address] [place] [address] Mary Barber MD 04/07/[address] [facility] ie [address] [place] [address] Mary Barber MD Cardiac Device Management 03/28/2024 Telephone [facility] ie [address] [place] [address] Tiffany Badillo MD Reschedule 03/17/2024 Telephone [facility] ield [address] [place] [address] Tiffany Badillo MD Refill Request 03/17/2024 MyChart Message Enc [facility] [place] [address] [place] [address] Tiffany Badillo MD Entresto - problem filling at pharmacy 03/15/2024 11:15 AM BONDACTOR MACHINE OPERATOR Office Visit [facility] [place] [address] [place] [address] Jim Tamez MD Follow Up 03/15/2024 Travel 03/07/2024 2:00 PM BONDACTOR MACHINE OPERATOR Allied Health/Nurse Visit [facility] [address] [place] [address] Mary Barber MD In Clinic Device Check 03/07/2024 2:00 PM BONDACTOR MACHINE OPERATOR Office Visit [facility] [address] [place] [address] Monique Iverson NP Follow Up; Cardiac Device Management; Atrial Fibrillation 03/07/2024 Travel 03/04/2024 Orders Only [facility] [address] [place] [address] Mary Barber MD 03/03/2024 Telephone [facility] [address] [place] [address] Mary Barber MD Information 03/02/2024 Telephone [facility] [address] [place] [address] Mary Barber MD Appointment Reminder 03/02/2024 Telephone [facility] [address] [place] [address] Jim Tamez MD Appointment Reminder from Last 3 Months Immunizations Name Administration Dates Next Due Tdap (Boostrix) 01/28/2019 Family History Medical History Relation Comments CABG Brother Stent Cardiac Brother [place] Father [place] Mother Heart Disease Other premature rouse ry [...] Organization Meetings Never 03/27/2019 Marital Status 03/27/2019 [facility] Occupat ional Health - Occupational Stress [...] Sex Assigned at Female 03/07/2024 1:44 PM BONDACTOR MACHINE OPERATOR Legal Sex Female 10:54 PM [...] Comments Blood Pressure 139/77 03/15/2024 11:13 AM BONDACTOR MACHINE OPERATOR Pulse 70 03/15/2024 11:13 AM BONDACTOR MACHINE OPERATOR Temperature 36.7 C (98 F) 02/05/2023 11:06 AM BONDACTOR MACHINE OPERATOR Respiratory Rate 18 03/15/2024 11:13 AM BONDACTOR MACHINE OPERATOR Oxygen Saturation 99% 03/15/2024 11:13 AM BONDACTOR MACHINE OPERATOR Inhaled Oxygen Concentration - - Weight 73.5 kg (162 lb) 03/15/2024 11:13 AM BONDACTOR MACHINE OPERATOR Height 160 cm (5' 3 ) 03/15/2024 11:13 AM BONDACTOR MACHINE OPERATOR Body Mass Index 28.7 03/15/2024 11:13 AM BONDACTOR MACHINE OPERATOR Plan of Treatment Upcoming Encounters Date Type Department Care Team ([facility] st Contact Info) Description 08/23/2024 9:00 AM CDT Office Visit [facility] [place] [address] Bruno Can MD [address] [facility] [address] [place] [address] 08/29/2024 2:50 AM CDT Allied Health/Nurse Visit [facility] ld [address] [place] [address] Mary Barber MD [address] [place] [address] Health Maintenance Due Date Last Done Comments [...] this topic Medical Devices Implanted Type Area Boilers Inspector Device Identifier Shelf Expiration Date Model / Serial / Lot [employer] Momentum Bi-V-11/03/2022 Implanted:Qty: 1 on 11/03/2022 by Mary Barber MD ICD [employer] 08/06/2024 [id number] / [id number] / Description:DX: [place] [employer] Lv-04/04/2013 Implanted:04/04 (Quantity not on file) Lead Implant [employer] 4592-90 / [id number] / [employer] Rv-04/04/2013 Implanted:04/04 (Quantity not on file) Lead Implant [employer] 0295-59 / [id number] / [employer] Ra-04/04/2013 Implanted:04/04 (Quantity not on file) Lead Implant [employer] [id number] / [id number] / Explanted Type Area Boilers Inspector Device Identifier Shelf Expiration Date Model / Serial / Lot Bivad-04/04/2013 Implanted:2013 by Mary Barber MD (Quantity not on file) Explanted:Qty: 1 on 11/03/2022 by Mary Barber MD BiVAD Procedures Procedure Name Priority Date/Time Associated Diagnosis Comments ELECTROCARDIOGRAM (NON MIDMARK ACQUIRED) Routine 03/07/2024 2:00 PM BONDACTOR MACHINE OPERATOR VT (ventricular tachycardia) ([facility]) Paroxysmal atrial fibrillation ([facility]) from Last 3 Months Results * ELECTROCARDIOGRAM (03/07/2024 2:00 PM BONDACTOR MACHINE OPERATOR) 03/07/2024 2:00 PM BONDACTOR MACHINE OPERATOR [facility] CARDIOVASCULAR - 03/08/2024 8:24 AM [facility], [facility] [address] [place] [address] Test Date: 2024-03-07 Pat Name: SERA SHAW Department: 105 Room: Gender: Female Player Services Representative: everardo : 1935 Requested By: MARY BARBER Order Number: [id number] Reading MD: Mary Barber Measurements Intervals [place] Rate: 70 P: NM: 0 QRS: 59 QRSD: 121 T: -20 QT: 434 QTc: 469 Interpretive Statements ATRIAL FIBRILLATION WITH VENTRICULAR PACING ACTOR MACHINE OPERATOR Procedure Note Mary Barber MD - 03/08/2024 [facility] [address] [place] [address] Test Date: 2024-03-07 Pat Name: SERA SHAW Department: 105 Room: Gender: Female Player Services Representative: everardo : 1935 Requested By: MARY BARBER Order Number: [id number] Reading MD: Mary Barber Measurements Intervals [place] Rate: 70 P: NM: 0 QRS: 59 QRSD: 121 T: -20 QT: 434 QTc: 469 Interpretive Statements ATRIAL FIBRILLATION WITH VENTRICULAR PACING ACTOR MACHINE OPERATOR us Mary Barber MD PROCEDURES-ORDERABLE NO CHARGE F inal Result [facility] from Last 3 Months Insurance [facility] MEDICARE [facility] INS MEDICARE Advance Directives Documents on File Type Date Recorded Patient Concrete Mixer Expl anation Advance Directives and Living Will 12/18/2017 1:17 PM 05/30/14 [facility] Advance Directives and Living Will 11/14/2014 SHORT FORM POWER OF MEDICAL RECORD LIBRARIANS TEACHER Advance Directives and Living Will 11/14/2014 SHORT FORM POWER OF MEDICAL RECORD LIBRARIANS TEACHER Advance Directives and Living Will 06/24/2014 SHORT FORM POWER OF MEDICAL RECORD LIBRARIANS TEACHER Advance Directives and Living Will 06/24/2014 SHORT FORM POWER OF MEDICAL RECORD LIBRARIANS TEACHER * Full Code (Latest Code Status on File) Date Activated Date Inactivated Comments 11/06/2020 2:12 PM 11/07/2020 3:12 PM * Full Code Date Activated Date Inactivated Comments 03/28/2019 12:19 AM 04/02/2019 2:04 PM * Full Code Date Activated Date Inactivated Comments 01/28/2019 11:01 PM 02/04/2019 2:55 PM Care Teams Snaker Tractor Driver Relationship Specialty Start Date End Date Qasim Garrett DO [address] [place] [address] PCP - General FAMILY PRACTICE 04/13/19 Mary Barber MD [address] [place] [address] EP Manager Communication CLINICAL CARDIAC ELECTROPHYSIOLOGY 09/15/16 Erick Abdi MD [address] [place] [address] Consulting Physician PAIN MANAGEMENT 09/06/20 Jim Tamez MD [address] [place] [address] Consulting Physician INTERNAL MEDICINE 09/10/23 Monique Iverson NP 9 [facility]. [address] [place] [address] Nurse Practitioner Nurse Practitioner Acute Care 03/07/24 Bruno Can MD [address] [id number] Physician INTERVENTIONAL CARDIOLOGY 04/15/24
--- OUTSIDE RECORDS SUMMARY | 2024-05-20 10:15 | XMS_ITS | Data Portability ---
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 [facility] 03/07/2024 12:10:52 Date Recorded Body height Provider Name an d Address Organization Details Last Updated DateTime 05/12/2024 160.02 cm Sariah [facility] 05/12/2024 12:02:27 Social History None recorded. Functional Status None recorded. Mental Status None recorded. Family History Nothing Reported. Medical History No medical history recorded. Gynecological HistoryNo gynecological history recorded. Obstetrics History GPAL:G 0 P 0 0 0 0 Past Encounters Encounter ID Performer Location Encounter Start Date Encounter Closed Date Diagnosis/Indication Diagnosis SNOMED-CT Code Diagnosis ICD10 Code Diagnosis Note [id number] Leslie Nevarez MD [facility] ([place]) [address] [place] [address] 07/15/2023 11:35:25 07/15/2023 12:36:02 Seborrheic keratosis 278775733 L82.1 History of malignant neoplasm of skin 874201358 Z85.828 Rosacea 881576605 L71.9 History of actinic keratosis 8948171116 104 Z87.2 [id number] Shubham Heath MD [address] [facility] ([place]) [address] [place] [address] 12/28/2023 11:20:13 12/28/2023 13:23:10 Pain of right shoulder region 9335427258 M25.511 Cervical radiculopathy 08133965 M54.12 Calcific t endinitis of right shoulder 0541915694 52828 M75.31 Degenerati on of cervical intervertebral disc 71957418 M50.322 [id number] Shubham Heath MD [address] ([place]) [address] [place] [address] 03/07/2024 11:43:02 03/07/2024 12:43:03 Neck pain 56758098 M54.2 Degenerati on of cervical intervertebral disc 12952599 M50.322 Cervical spondylosis 387 085703 M47.892 [id number] Erick Abdi MD [address] [facility] [facility] ([place]) [address] [place] [address] 05/12/2024 11:35:09 05/12/2024 15:47:22 Arthropathy of cervical spine facet joint 905998597 M47.812 Lumbar radiculopathy 128 785461 M54.16 Degenerati ve lumbar spinal stenosis 534921297 M48.061 Health Concerns Section Related Observation LastModified by Organization Detai ls LastModified Time None Recorded Concern Status LastModified by Organization Details LastModified Time None Recorded Advance Directives Directive None Recorded Payers Encounter Date Sequence Insurance Name Policy Number Policy Schmidt Covered Member ID Schmidt Member ID Guarantor Name 07/15/2023 1 [place] Sera Sharmar [id number] [place] Kaylynn Hardydler 07/15/2023 2 [employer] - PLAN F (MEDICARE SUPPLEMENT) Sera Sharmar [id number] [place] Kaylynn Hardydler 12/28/2023 1 [place] Kaylynn Hardydler [id number] 0 [place] Kaylynn Hardydler 12/28/2023 2 [employer] - PLAN F (MEDICARE SUPPLEMENT) Sera Sharmar [id number] 0 [place] D Weidler 03/07/2024 1 [place] Kaylynn Weidler [id number] 0 [place] D Weidler 03/07/2024 2 [employer] - PLAN F (MEDICARE SUPPLEMENT) Sera D Weidler [id number] 0 [place] D Weidler 05/12/2024 1 [place] Sera D Weidler [id number] 0 [place] D Weidler 05/12/2024 2 [facility] [employer] - PLAN F (MEDICARE SUPPLEMENT) Sera D Weidler [id number] 0 [place] D Weidler Notes Date Note Type Note Provider Name and Address Organization Details Recorded Time 07/15/2023 text/html Pt presents toda y for TBSE. Hx NMSC. Pt reports issues with dryness and rosacea on her face, she deferred total skin exam. Intertrigo- keto cream and hydorcortisone Leslie Nevarez MD [address] [facility], [place], [address], [facility] 07/15/2023 12:55:42 OBGyn Episode No OBEpisode recorded.
--- OUTSIDE RECORDS SUMMARY | 2024-05-20 10:15 | XMS_ITS ---
Author Organization [facility] Address [address] [place], [place] [address] Care Team Providers Care Scout Professional Sports Name Role Phone Qasim Garrett Unavailable Unavailable RANDY FLOWERS Unavailable [phone] Allergies Allergen (clinical drug ingredient) Drug/Non Drug Allergy documented on EMR Reaction Allergy Type Onset Date Status Opioid Analgesics (uncoded) Unknown Allergy 10/17/2021 active Substance with penicillin structure and antibacterial mechanism of action (substance) Penicillins Unknown Drug Allergy 10/17/2021 active REASON FOR VISIT *General care Encounters Encounter Location Date Provider Diagnosis [address] [id number] 11/19/2023 RANDY FLOWERS Other hammer toe(s) (acquired), right foot M20.41 ; Tinea unguium B35.1 ; Other hammer toe(s) (acquired), left foot M20.42 ; Pain in right toe(s) M79.674 ; Pain in left toe(s) M79.675 ; Unspecified atherosclerosis of [place] arteries of extremities, bilateral legs I70.203 ; [...] (ICD-10 - M79.675) 11/19/2023 Unspecified atherosclerosis of [place] arteries of extremities, bilateral legs (ICD-10 - [...] OTC and prescription treatments. Unspecified atherosclerosis of [place] arteries of extremities, bilateral legs Patient educated [...] * RAKAN SHAWDOB:[birth year] (88 yo F)Acc No.[id number]:11/19/2023 Patient: RAKAN CAMACHO Provider: Agustin FLOWERS :1935 A ge:88 Y S ex:Female Date:11/19/2023 Address:[address] [place] [address], [place] [id number] Subjective: * Chief Complaints: * 1 . [...] M79.675 6 . U nspecified atherosclerosis of [place] arteries of extremities, bilateral legs - I70.203 [...] were emphasized. 3. U nspecified atherosclerosis of [place] arteries of extremities, bilateral legs Notes: Patient [...] LESIONS, 2 TO 4, Modifiers: Q8 , 97395 DEBRIDE NAIL, 6 OR MORE, Modifiers: 59 , Q8 * Follow Up: 3 Months * Billing Information: * Visit Code: 54903 Office Visit, Est Pt., Level 3. * Procedure Codes: 29846 TRIM SKIN LESIONS, 2 TO 4. Modifiers: Q8 44676 DEBRIDE NAIL, 6 OR MORE. Modifiers: 59, Q8 * Sign off status: Completed true * Provider: Agustin FLOWERS Date: Generated for Daniel Salinas on: 0 05/20/2024 10:14 AM CDT History [...]
--- OUTSIDE RECORDS SUMMARY | 2024-05-20 10:15 | XMS_ITS | Patient Health Record ---
Author Organization [facility] Address [address] [place], [place] [address] Care Team Providers Care Supervisory Training Specialist Name Role Phone Qasim Garrett Unavailable Unavailable GILA CERVANTES Unavailable [phone] RANDY FLOWERS Unavailable [phone] Allergies Allergen (clinical drug ingredient) Drug/Non Drug [...] 06/18/2023 Encounters Encounter Location Date Provider Diagnosis [address] [id number] 01/21/2024 RANDY FLOWERS Other hammer toe(s) (acquired), right foot M20.41 ; Tinea unguium B35.1 ; Other hammer toe(s) (acquired), left foot M20.42 ; Pain in right toe(s) M79.674 ; Pain in left toe(s) M79.675 ; Unspecified atherosclerosis of [place] arteries of extremities, bilateral legs I70.203 ; Acquired keratosis [keratoderma] palmaris et plantaris L85.1 and Localized edema R60.0 [place] [address] [place] [id number] 06/18/2023 RANDY FLOWERS Other hammer toe(s) (acquired), right foot M20.41 ; Tinea unguium B35.1 ; Other hammer toe(s) (acquired), left foot M20.42 ; Pain in right toe(s) M79.674 ; Pain in left toe(s) M79.675 and Unspecified atherosclerosis of [place] arteries of extremities, bilateral legs I70.[address] [id number] 09/17/2023 RANDY FLOWERS Other hammer toe(s) (acquired), right foot M20.41 ; Tinea unguium B35.1 ; Other hammer toe(s) (acquired), left foot M20.42 ; Pain in right toe(s) M79.674 ; Pain in left toe(s) M79.675 and Unspecified atherosclerosis of [place] arteries of extremities, bilateral legs I70.[address] [id number] 11/19/2023 RANDY FLOWERS Other hammer toe(s) (acquired), right foot M20.41 ; Tinea unguium B35.1 ; Other hammer toe(s) (acquired), left foot M20.42 ; Pain in right toe(s) M79.674 ; Pain in left toe(s) M79.675 ; Unspecified atherosclerosis of [place] arteries of extremities, bilateral legs I70.203 ; [...] (ICD-10 - M79.675) 06/18/2023 Unspecified atherosclerosis of [place] arteries of extremities, bilateral legs (ICD-10 - I70.203) Patient educated on risks and aggravating factors of PVD, including conservative treatment options such as a diet and exercise regimen to aid in slowing progression of vascular disease 11/19/2023 Unspecified atherosclerosis of [place] arteries of extremities, bilateral legs (ICD-10 - I70.203) Patient educated on risks and aggravating factors of PVD, including conservative treatment options such as a diet and exercise regimen to aid in slowing progression of vascular disease 09/17/2023 Unspecified atherosclerosis of [place] arteries of extremities, bilateral legs (ICD-10 - I70.203) Patient educated on risks and aggravating factors of PVD, including conservative treatment options such as a diet and exercise regimen to aid in slowing progression of vascular disease 01/21/2024 Unspecified atherosclerosis of [place] arteries of extremities, bilateral legs (ICD-10 - [...] Date Coverage End Date Medicare Part B [place] [address] [place] [address] [id number] [place] Self - patient is the insured [facility] Insurance [address] [address] [place] [address] [id number] [place] Self - patient is the insured
--- OUTSIDE RECORDS SUMMARY | 2024-05-20 10:15 | XMS_ITS | Encounter Summary ---
Author Organization [facility] Address [address] [place] [address] Care Team Providers Care Fitter Helper Name Role Phone Mary Barber MD Unavailable Qasim Garrett DO Primary Care Provider [phone] Tiffany Badillo MD Unavailable [phone] Erick Abdi MD Unavailable [phone] Jim Tamez MD Unavailable Monique Iverson NP Unavailable [phone] Bruno Can MD Unavailable [phone] Encounter Details Date Type Department Care Team (Late st Contact Info) Description 11/02/2020 Hospital Orders Only [facility] [address] [place] [address] Melia Buenrostro Anesthesia Record Procedure Summary Procedure [...] Reason: Therapy Completed 11/06/20 1041 by Elissa Beckhma CRNA 11/06/20 1457 by Valeria Kolb RN [...] Organization Meetings Never 03/27/2019 Marital Status 03/27/2019 [facility] of Occupat ional Health - Occupational Stress [...] Sex Assigned at Female 03/07/2024 1:44 PM MONOTYPER Legal Sex Female 10:54 PM CDT Gender [...] Assessment Author Status No 03/28/2019 12:00 AM MONOTYPER 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 Answer Date of Assessment Author Status No 03/28/2019 12:00 AM MONOTYPER Acti ve * Do you have serious difficulty walking or climbing stairs? Answer Date of Assessment Author Status Yes 03/28/2019 12:00 AM MONOTYPER Jonas Garcia CRNA Active * Do you have difficulty dressing or bathing? Answer Date of Assessment Author Status No 03/28/2019 12:00 AM MONOTYPER Jonas Garcia CRNA Active * Because of a physical, mental, or emotional condition, do you have difficulty doing errands alone such as visiting a doctor's office or shopping? Answer Date of Assessment Author Status No 03/28/2019 12:00 AM MONOTYPER Jonas Garcia CRNA Active documented as of this encounter Mental Status * Because of a physical, mental, or emotional condition, do you have serious difficulty concentrating, remembering, or making decisions? Answer Entry Date Author Status No 03/28/2019 12:00 AM MONOTYPER Jonas Garcia CRNA Active documented in this encounter Plan of Treatment Upcoming Encounters Date Type Department Care Team (Late st Contact Info) Description 08/23/2024 9:00 AM CDT Office Visit [facility] [place] [address] Bruno Can MD [address] [address] 08/29/2024 2:50 AM CDT Allied Health/Nurse Visit [facility] ld [address] [place] [address] Mary Barber MD [address] [place] [address] documented as of this encounter Visit Diagnoses Not on filedocumented in this encounter Care Teams Fitter Helper Relationship Specialty Start Date End Date Qasim Garrett DO [address] [place] [address] PCP - General FAMILY PRACTICE 04/13/19 Mary Barber MD [address] [place] [address] EP Crystal Inspector CLINICAL CARDIAC ELECTROPHYSIOLOGY 09/15/16 Tiffany Badillo MD [address] [place], [place] [address] Consulting Physician INTERVENTIONAL CARDIOLOGY 12/23/19 04/15/24 Erick Abdi MD [address] [place] [address] Consulting Physician PAIN MANAGEMENT 09/06/20 Jim Tamez MD [address] [place] [address] Consulting Physician INTERNAL MEDICINE 09/10/23 Monique Iverson NP [address] [facility] [address] [place] [address] Nurse Practitioner Nurse Practitioner Acute Care 03/07/24 Bruno Can MD [address] [facility] [address] [place] [address] Physician INTERVENTIONAL CARDIOLOGY 04/15/24 documented as of this encounter
== END 2024-05-20 09:44 | disposition home or self-care (01) ==
LOC: CHSIMG 09:45
PROVIDERS: PCP Family Medicine
DX: M54.16 Radiculopathy, lumbar region (principal); M25.559 Pain in unspecified hip; M43.06 Spondylolysis, lumbar region
CPT/HCPCS: 72131; 73521

== ENCOUNTER 2024-06-03 16:35 | Outpatient (NON) | payer MEDICARE, SELFPAY ==
--- OUTSIDE RECORDS SUMMARY | 2024-06-03 16:38 | XMS_ITS | Encounter Summary ---
Author Organization [facility] Address [address] [place] [address] Care Team Providers Care Glazier Apprentice Name Role Phone Mary Barber MD Unavailable Thomas Brian MD Unavailable Unavailable [facility] Un[facility] [phone] Qasim Garrett DO Primary Care Provider [phone] Tiffany Badillo MD Unavailable [phone] Erick Abdi MD Unavailable [phone] Jim Tamez MD Unavailable Monique Iverson NP Unavailable [phone] Bruno Can MD Unavailable [phone] Encounter Details Date Type Department Care Team (Late st Contact Info) Description 04/25/2017 Abstract [facility] CONVERSION [address] [place] [address] , Generic Conversion, Social History Tobacco Use Types Packs/Day Years Used Date Smoking Tobacco: Former Cigarettes Q uit: 09/23/1971 Smokeless Tobacco: Never Alcohol Use Standard Drinks/Week Comments No 0 (1 standard drink = 0.6 oz pur e alcohol) Comments Unknown Sex and Gender Information Value Date Recorded Sex Assigned at Female 03/07/2024 1:44 PM FREEZER ASSISTANT Legal Sex Female 10:54 PM CDT Gender Identity Not on file Sexual Orientation Not on file Occupation Industry Job Start Date Job End Date Retired Not on file Not on file Not on file Not on file Not on file Not on file Not on file documented as of this encounter Plan of Treatment Upcoming Encounters Date Type Department Care Team (Latest Contact Info) Description 06/20/2024 9:[address] [facility] [address] [place] [address] Bruno Can MD [address] [address] 06/20/2024 10:[address] [facility] [address] [place] [address] Bruno Can MD [address] [address] 08/29/2024 2:50 AM CDT [facility] [address] [place] [address] Mary Barber MD [address] [place] [address] 05/30/2025 9:00 AM CDT Office Visit [facility] [address] [place] [address] Bruno Can MD [address] [address] documented as of this encounter Visit Diagnoses Not on filedocumented in this encounter Care Teams Glazier Apprentice Relationship Specialty Start Date End Date Qasim Garrett DO [address] [place] [address] PCP - General FAMILY PRACTICE 04/13/19 Mary Barber MD [address] [place] [address] EP Multimedia Services Manager CLINICAL CARDIAC ELECTROPHYSIOLOGY 09/15/16 Thomas Brian MD [address] [place] [address] CARDIOVASCULAR DISEASE 09/16/16 04/12/19 Efren Jose[facility] [address] [facility] [address] [place] [address] Nurse Practitioner Electrophysiology 09/18/16 12/22/19 Tiffany Badillo MD [address] [place], [place] [address] Consulting Physician INTERVENTIONAL CARDIOLOGY 12/23/19 04/15/24 Erick Abdi MD [address] [address] Consulting Physician PAIN MANAGEMENT 09/06/20 Jim Tamez MD [address] [place] [address] Consulting Physician INTERNAL MEDICINE 09/10/23 Monique Iverson NP [address] [address] Nurse Practitioner Nurse Practitioner Acute Care 03/07/24 Bruno Can MD [address] [address] Physician INTERVENTIONAL CARDIOLOGY 04/15/24 documented as of this encounter
--- OUTSIDE RECORDS SUMMARY | 2024-06-03 16:38 | XMS_ITS | Encounter Summary ---
Author Organization [facility] Address [address] [place] [address] Care Team Providers Care Molecular Geneticist Name Role Phone Mary Barber MD Unavailable Qasim Garrett DO Primary Care Provider [phone] Tiffany Badillo MD Unavailable [phone] Erick Abdi MD Unavailable [phone] Jim Tamez MD Unavailable Monique Iverson NP Unavailable [phone] Bruno Can MD Unavailable [phone] Encounter Details Date Type Department Care Team (Latest Contact Info) Description 03/17/2024 Stereotaxis Message [facility] [place] [address] Tiffany Badillo MD [address] [place] [address] Entresto - problem filling at [...] Sex Assigned at Female 03/07/2024 1:44 PM SALESPERSON NEW CARS Legal Sex Female 10:54 PM CDT Gender [...] CDT Appointment [facility] [address] [place] [address] Bruno Can MD [address] [address] 06/20/2024 10:[address] [facility] [address] [place] [address] Bruno Can MD [address] [address] 08/29/2024 2:50 AM CDT [facility] [address] [place] [address] [phone] Mary Barber MD [address] [place] [address] 05/30/2025 9:00 AM CDT Office Visit [facility] [address] [place] [address] Bruno Can MD [address] [address] documented as of this encounter Visit Diagnoses Not on filedocumented in this encounter Care Teams Molecular Geneticist Relationship Specialty Start Date End Date Qasim Garrett DO [address] [place] [address] PCP - General FAMILY PRACTICE 04/13/19 Mary Barber MD [address] [place] [address] EP Material Reclaimer CLINICAL CARDIAC ELECTROPHYSIOLOGY 09/15/16 Tiffany Badillo MD [address] [place] [address] Consulting Physician INTERVENTIONAL CARDIOLOGY 12/23/19 04/15/24 Erick Abdi MD [address] [place] [address] Consulting Physician PAIN MANAGEMENT 09/06/20 Jim Tamez MD [address] [place] [address] Consulting Physician INTERNAL MEDICINE 09/10/23 Monique Iverson NP 9 [facility]. [address] [place] [address] Nurse Practitioner Nurse Practitioner Acute Care 03/07/24 Bruno Can MD [address] [facility] [address] [id number] Physician INTERVENTIONAL CARDIOLOGY 04/15/24 documented as of this encounter
--- OUTSIDE RECORDS SUMMARY | 2024-06-03 16:38 | XMS_ITS | Clinical Summary ---
Author Organization [facility] Address [address] [place] [address] Care Team Providers Care Tire Maintenance Technician Name Role Phone Mary Barber MD Unavailable Qasim Garrett DO Primary Care Provider [phone] Erick Abdi MD Unavailable [phone] Jim Tamez MD Unavailable Monique Iverson NP Unavailable [phone] Bruno Can MD Unavailable [phone] Allergies Active Allergy Reactions Criticality Noted Date [...] STOCKINGS, DME,Indications:Le g edema,Hypercholest erolemia,Essential hypertension,Prima ry hypertension,medical terminologist current use of antiarrhythmic drug,Pain and swelling [...] 03/07/2024 Leg edema 09/15/2023 VT (ventricular tachycardia) ([facility]) 0 05/19/2023 Closed displaced [...] right ankle 01/28 Chronic congestive heart failure ([facility]/ [facility]) 10/22/2017 Premature ventricular contractions 09/22/2016 S/P AV trell ablation 09/08/2016 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 09/08/2016 H/O intracranial hemorrhage 09/08/2016 NICM (nonischemic cardiomyopathy) ([facility]) 12/18/2015 TIA (transient ischemic attack) Overview (12/18/2015): Came in for possible TIA today Hypertension Hyperlipidemia Paroxysmal atrial fibrillation ([facility]) Resolved Problems Problem Noted Date Diagnosed Date Resolved Date Acute pulmonary embolism ([facility]) 03/27/2019 08/31/2022 Pre-op examination 10/22/2017 0 Encounters Date Type Department Care Team Description 05/24/2024 9:16 AM CDT - 05/24/2024 11:59 PM CDT Hospital Encounter [facility] [address] [facility] [place] [address] Bruno Can MD Discharge Disposition: Home or Self Care (Routine Discharge) 05/24/2024 8:00 AM CDT Office Visit [facility] [address] [place] [address] Bruno Can MD 05/24/2024 Telephone [facility] [address] [place] [address] Bruno Can MD Schedule Test 05/24/2024 Travel 05/24/2024 Orders Only [facility] [address] [place] [address] Bruno Can MD 05/24/2024 Telephone [facility] [address] [place] [address] Bruno Can MD Appointment Request 05/18/2024 Telephone [facility] [address] [place] [address] Mary Barber MD Cardiac Device Management 05/16/2024 1:15 AM CDT Allied Health/Nurse Visit [facility] [address] [place] [address] Mary Barber MD 04/07/2024 Telephone [facility] [address] [place] [address] Mary Barber MD Cardiac Device Management 03/28/2024 Telephone [facility] [address] [place] [address] Tiffany Badillo MD Reschedule 03/17/2024 Telephone [facility] [address] [place] [address] Tiffany Badillo MD Refill Request 03/17/2024 MyChart Message Enc [facility] [place] [address] Tiffany Badillo MD Entresto - problem filling at pharmacy 03/15/2024 11:15 AM FITNESS PROFESSIONAL Office Visit [facility] [place] [address] Jim Tamez MD Follow Up 03/15/2024 Travel 03/07/2024 2:00 PM FITNESS PROFESSIONAL Allied Health/Nurse Visit [facility] [address] [place] [address] Mary Barber MD In Clinic Device Check 03/07/2024 2:00 PM FITNESS PROFESSIONAL Office Visit [facility] [address] [place] [address] Monique Iverson, DIRECTOR MOTION PICTURE Follow Up; Cardiac Device Management; Atrial Fibrillation 03/07/2024 Travel from Last 3 Months Immunizations Immunization Administration Dates Next Due Tdap (Boostrix) 01/28/2019 Family History Medical History Relation Comments CABG Brother Stent Cardiac Brother UT Father UT Mother Heart Disease Other premature rouse ry [...] than three times a week 03/27/2019 Attends Restorationist Services Not on file 03/27 Active Member of Clubs or Organizations Not on f ile 03/27/2019 Attends Club or Organization Meetings Never 03/27/2019 Marital Status 03/27/2019 [facility] [place] of Occupat ional Health - Occupational Stress [...] Sex Assigned at Female 03/07/2024 1:44 PM FITNESS PROFESSIONAL Legal Sex Female 10:54 PM CDT Gender Identity Not on file Sexual Orientation Not on file Occupation Industry Job Start Date Job End Date Retired Not on file Not on file Not on file Not on file Not on file Not on file Not on file Last Filed Vital Signs Vital Sign Reading Time Taken Comments Blood Pressure 146/73 05/24/2024 9:52 AM CDT Pulse 70 05/24/2024 9:47 AM CDT Temperature 36.7 C (98 F) 02/05/2023 11:06 AM FITNESS PROFESSIONAL Respiratory Rate 18 05/24/2024 9:47 AM CDT Oxygen Saturation 99% 05/24/2024 9:47 AM CDT Inhaled Oxygen Concentration - - Weight 70.8 kg (156 lb) 05/24/2024 9:47 AM CDT Height 160 cm (5' 3 ) 05/24/2024 9:47 AM CDT Body Mass Index 27.63 05/24/2024 9:47 AM CDT Plan of Treatment Upcoming Encounters Date Type Department Care Team (Latest Contact Info) Description 06/20/2024 9:[address] [facility] [address] [place] [address] Bruno Can MD [address] [address] 06/20/2024 10:[address] [facility] [address] [place] [address] Bruno Can MD [address] [address] 08/29/2024 2:50 AM CDT Allied Health/Nurse Visit [facility] [address] [place] [address] Mary Barber MD [address] [place] [address] 05/30/2025 9:00 AM CDT Office Visit [facility] [address] [place] [address] Bruno Can MD [address] [address] Health Maintenance Due Date Last Done Comments Annual Medicare Wellness Visit 02/17/2000 RSV Immunization or 60+ Years (1 - 1-dose 75+ series) 2010 Pneumococcal Vaccine: 50+ Years (2 of 2 - PPSV23) 03/25/2016 01/29/2016 Zoster Vaccines (2 of 2) [...] this topic Medical Devices Implanted Type Area Card Doffer Device Identifier Shelf Expiration Date Model / Serial / Lot [employer] Momentum Bi-V-11/03/2022 Implanted:Qty: 1 on 11/03/2022 by Mary Barber MD ICD [employer] KATHI 08/06/2024 [id number] / [id number] / Description:DX: [place] [employer] Lv-04/04/2013 Implanted:04/04 (Quantity not on file) Lead Implant [employer] 4592-90 / [id number] / [employer] Rv-04/04/2013 Implanted:04/04 (Quantity not on file) Lead Implant [employer] 0295-59 / [id number] / [employer] Ra-04/04/2013 Implanted:04/04 (Quantity not on file) Lead Implant [employer] [id number] / [id number] / Explanted Type Area Card Doffer Device Identifier Shelf Expiration Date Model / Serial / Lot Bivad-04/04/2013 Implanted:2013 by Mary Barber MD (Quantity not on file) Explanted:Qty: 1 on 11/03/2022 by Mary Barber MD BiVAD Procedures Procedure Name Priority Date/Time Associated Diagnosis Comments ECG 12-LEAD Routine 05/24/2024 9:29 AM CDT Essential hypertension Hypercholesterolemi a ELECTROCARDIOGRAM (NON MIDMARK ACQUIRED) Routine 03/07/2024 2:00 PM FITNESS PROFESSIONAL VT (ventricular tachycardia) (CMS/HCC HHS/HCC) Paroxysmal atrial fibrillation (CMS/HCC HHS/HCC) from Last 3 Months Results * ECG 12 lead (HOSPITAL PERFORMED ONLY) (05/24/2024 9:29 AM CDT) 05/24/2024 9:29 AM CDT Narrative [facility] - 05/24/2024 5:47 PM [address]T [address] [place] [address] Test Date: 2024-05-24 Pat Name: [facility] Department: 3 Room: Gender: Female Yacht Rigger: : 1935 Requested By: BRUNO CAN Order Number: [id number] Reading MD: Bruno Can Measurements Intervals [place] Rate: 70 P: 0 NH: 0 QRS: 124 QRSD: 128 T: 66 QT: 454 QTc: 490 Interpretive Statements ELECTRONIC VENTRICULAR PACEMAKER ABNORMAL RHYTHM ECG Procedure Note Bruno Can MD - 05/24/[address] [place] [address] Test Date: 2024-05-24 Pat Name: [facility] Department: 3 Room: Gender: Female Yacht Rigger: : 1935 Requested By: BRUNO CAN Order Number: [id number] Reading MD: Bruno Can Measurements Intervals [place] Rate: 70 P: 0 NH: 0 QRS: 124 QRSD: 128 T: 66 QT: 454 QTc: 490 Interpretive Statements ELECTRONIC VENTRICULAR PACEMAKER ABNORMAL RHYTHM ECG us Bruno Can MD ECG ORDERABLES Final Result [facility] * ELECTROCARDIOGRAM (03/07/2024 2:00 PM FITNESS PROFESSIONAL) 03/07/2024 2:00 PM FITNESS PROFESSIONAL Narrative [facility] - 03/08/2024 8:24 AM FITNESS PROFESSIONAL [facility] [address] [place] [address] Test Date: 2024-03-07 Pat Name: [facility] Department: 105 Room: Gender: Female Yacht Rigger: everardo : 1935 Requested By: MARY BARBER Order Number: [id number] Reading MD: Mary Barber Measurements Intervals [place] Rate: 70 P: NH: 0 QRS: 59 QRSD: 121 T: -20 QT: 434 QTc: 469 Interpretive Statements ATRIAL FIBRILLATION WITH VENTRICULAR PACING ESS PROFESSIONAL Procedure Note Mary Barber MD - 03/08/2024 [facility] [address] [place] [address] Test Date: 2024-03-07 Pat Name: [facility] Department: 105 Room: Gender: Female Yacht Rigger: everardo : 1935 Requested By: MARY BARBER Order Number: [id number] Reading MD: Mary Barber Measurements Intervals [place] Rate: 70 P: NH: 0 QRS: 59 QRSD: 121 T: -20 QT: 434 QTc: 469 Interpretive Statements ATRIAL FIBRILLATION WITH VENTRICULAR PACING ESS PROFESSIONAL us Mary Barber MD PROCEDURES-ORDERABLE NO CHARGE F inal Result [facility] from Last 3 Months Insurance [facility] INS MEDICARE MEDICARE Advance Directives Documents on File Type Date Recorded Patient Corn Husk Baler Expl anation Advance Directives and Living Will 12/18/2017 1:17 PM 05/30/14 POA-HC Advance Directives and Living Will 11/14/2014 SHORT FORM POWER OF FOOD AND BEVERAGE CASHIER Advance Directives and Living Will 11/14/2014 SHORT FORM POWER OF FOOD AND BEVERAGE CASHIER Advance Directives and Living Will 06/24/2014 SHORT FORM POWER OF FOOD AND BEVERAGE CASHIER Advance Directives and Living Will 06/24/2014 SHORT FORM POWER OF FOOD AND BEVERAGE CASHIER * Full Code (Latest Code Status on File) Date Activated Date Inactivated Comments 11/06/2020 2:12 PM 11/07/2020 3:12 PM * Full Code Date Activated Date Inactivated Comments 03/28/2019 12:19 AM 04/02/2019 2:04 PM * Full Code Date Activated Date Inactivated Comments 01/28/2019 11:01 PM 02/04/2019 2:55 PM Care Teams Tire Maintenance Technician Relationship Specialty Start Date End Date Qasim Garrett DO [address] [place] [address] PCP - General FAMILY PRACTICE 04/13/19 Mary Barber MD [address] [place] [phone] EP Dumper Operator CLINICAL CARDIAC ELECTROPHYSIOLOGY 09/15/16 Erick Abdi MD [address] [place] [address] Consulting Physician PAIN MANAGEMENT 09/06/20 Jim Tamez MD [address] [place] [address] Consulting Physician INTERNAL MEDICINE 09/10/23 Monique Iverson NP [address] [place] [address] [address] [place] [address] Nurse Practitioner Nurse Practitioner Acute Care 03/07/24 Bruno Can MD [address] [facility] [address] [place] [address] Physician INTERVENTIONAL CARDIOLOGY 04/15/24
--- OUTSIDE RECORDS SUMMARY | 2024-06-03 16:38 | XMS_ITS | Encounter Summary ---
Author Organization [facility] Address [address] [place] [address] Care Team Providers Care Infant And Toddler Teacher Name Role Phone Mary Barber MD Unavailable Thomas Brian MD Unavailable Unavailable [facility] Jose[facility] Unavailable [phone] Qasim Garrett DO Primary Care Provider [phone] Tiffany Badillo MD Unavailable [phone] Erick Abdi MD Unavailable [phone] Jim Tamez MD Unavailable Monique Iverson NP Unavailable [phone] Bruno Can MD Unavailable [phone] Encounter Details Date Type Department Care Team (Late st Contact Info) Description 01/24/2015 Abstract [facility] [address] [place] [address] Mary Barber MD [address] [place] [address] Social History Tobacco Use Types Packs/Day Years Used Date Smoking Tobacco: Never Alcohol Use Standard Drinks/Week Comments No 0 (1 standard drink = 0.6 oz pur e alcohol) Comments Unknown Sex and Gender Information Value Date Recorded Sex Assigned at Female 03/07/2024 1:44 PM POLICY ADVISER Legal Sex Female 10:54 PM CDT Gender [...] Appointment [facility] [address] [place] [address] Bruno Can MD [address] [address] 06/20/2024 10:[address] [facility] [address] [place] [address] Bruno Can MD [address] [address] 08/29/2024 2:50 AM CDT [facility] [address] [place] [phone] Mary Barber MD [address] [place] [address] 05/30/2025 9:00 AM CDT Office Visit [facility] [address] [place] [address] Bruno Can MD [address] [address] documented as of this encounter Visit Diagnoses Not on filedocumented in this encounter Care Teams Infant And Toddler Teacher Relationship Specialty Start Date End Date Qasim Garrett DO [address] [place] [address] PCP - General FAMILY PRACTICE 04/13/19 Mary Barber MD [address] [place] [phone] EP Director Global Intelligence CLINICAL CARDIAC ELECTROPHYSIOLOGY 09/15/16 Thomas Brian MD [address] [place] [address] CARDIOVASCULAR DISEASE 09/16/16 04/12/19 Josey Schwartz [facility] [address] [facility] [address] [place] [address] Nurse Practitioner Electrophysiology 09/18/16 12/22/19 Tiffany Badillo MD [address] [place] [address] Consulting Physician INTERVENTIONAL CARDIOLOGY 12/23/19 04/15/24 Erick Abdi MD [address] [place] [address] Consulting Physician PAIN MANAGEMENT 09/06/20 Jim Tamez MD [address] [place] [address] Consulting Physician INTERNAL MEDICINE 09/10/23 Monique Iverson NP [address] [address] Nurse Practitioner Nurse Practitioner Acute Care 03/07/24 Bruno Can MD [address] [address] Physician INTERVENTIONAL CARDIOLOGY 04/15/24 documented as of this encounter
--- OUTSIDE RECORDS SUMMARY | 2024-06-03 16:39 | XMS_ITS | Encounter Summary ---
Author Organization [facility] Address [address] [place] [address] Care Team Providers Care Garment Steamer Name Role Phone Mary Barber MD Unavailable Qasim Garrett DO Primary Care Provider [phone] Tiffany Badillo MD Unavailable [phone] Erick Abdi MD Unavailable [phone] Jim Tamez MD Unavailable Monique Iverson NP Unavailable [phone] Bruno Can MD Unavailable [phone] Encounter Details Date Type Department Care Team (Late st Contact Info) Description 11/02/2020 Hospital Orders Only [facility] [address] [place] [address] Melia Buenrostro Anesthesia Record Procedure Summary Procedure [...] Organization Meetings Never 03/27/2019 Marital Status 03/27/2019 [facility] of Occupat ional Health - Occupational Stress [...] Sex Assigned at Female 03/07/2024 1:44 PM ORDER DEPARTMENT SUPERVISOR Legal Sex Female 10:54 PM CDT Gender [...] Assessment Author Status No 03/28/2019 12:00 AM ORDER DEPARTMENT SUPERVISOR 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 Answer Date of Assessment Author Status No 03/28/2019 12:00 AM ORDER DEPARTMENT SUPERVISOR Acti ve * Do you have serious difficulty walking or climbing stairs? Answer Date of Assessment Author Status Yes 03/28/2019 12:00 AM ORDER DEPARTMENT SUPERVISOR Jonas Garcia CRNA Active * Do you have difficulty dressing or bathing? Answer Date of Assessment Author Status No 03/28/2019 12:00 AM ORDER DEPARTMENT SUPERVISOR Jonas Garcia PRESCHOOL TEACHER'S ASSISTANT Active * Because of a physical, mental, or emotional condition, do you have difficulty doing errands alone such as visiting a doctor's office or shopping? Answer Date of Assessment Author Status No 03/28/2019 12:00 AM ORDER DEPARTMENT SUPERVISOR Jonas Garcia CRNA Active documented as of this encounter Mental Status * Because of a physical, mental, or emotional condition, do you have serious difficulty concentrating, remembering, or making decisions? Answer Entry Date Author Status No 03/28/2019 12:00 AM ORDER DEPARTMENT SUPERVISOR Jonas Garcia CRNA Active documented in this encounter Plan of Treatment Upcoming Encounters Date Type Department Care Team (Latest Contact Info) Description 06/20/2024 9:[address] [facility] [address] [place] [address] Bruno Can MD [address] [address] 06/20/2024 10:00 AM CDT Appointment [facility] [address] [place] [address] [place] [address] Bruno Can MD [address] [address] 08/29/2024 2:50 AM CDT [facility] [address] [place] [address] Mary Barber MD [address] [place] [address] 05/30/2025 9:00 AM CDT Office Visit [facility] [address] [facility] [place] [address] Bruno Can MD [address] [address] documented as of this encounter Visit Diagnoses Not on filedocumented in this encounter Care Teams Garment Steamer Relationship Specialty Start Date End Date Qasim Garrett DO [address] [place] [address] PCP - General FAMILY PRACTICE 04/13/19 Mary Barber MD [address] [place] [phone] EP Store Clerk CLINICAL CARDIAC ELECTROPHYSIOLOGY 09/15/16 Tiffany Badillo MD [address] [place] [address] Consulting Physician INTERVENTIONAL CARDIOLOGY 12/23/19 04/15/24 Erick Abdi MD [address] [place] [address] Consulting Physician PAIN MANAGEMENT 09/06/20 Jim Tamez MD [address] [place] [address] Consulting Physician INTERNAL MEDICINE 09/10/23 Monique Iverson NP [address] [place] [address]. [address] [place] [address] Nurse Practitioner Nurse Practitioner Acute Care 03/07/24 Bruno Can MD [address] [place] [phone] Physician INTERVENTIONAL CARDIOLOGY 04/15/24 documented as of this encounter
[2024-06-03 17:08] LABS: Add Urine Microscopic? YES; Bilirubin Urine Negative (Negative); Blood Urine 1+ (Negative); Color Urine Light Yellow (Yellow); Glucose Urine UA Negative (Negative); Ketones Urine Negative (Negative); Leukocyte Esterase Ur 2+ (Negative); Nitrate Urine Negative (Negative); Protein Urine 1+ (Negative); Specific Grav Ur <= 1.005 (1.010-1.020); Urobilinogen Urine 0.2 mg/dL (0.2-1.0)
[2024-06-03 17:29] LABS: Appearance Urine Sl Cloudy (Clear); Squamous Epithelial Cell Urine Few /hpf (Few); WBC Urine 21-30 /hpf (0-3)
[2024-06-03 17:30] LABS: Bacteria Urine 1+ /hpf
[2024-06-03 17:32] LABS: MALB Creatinine Ratio 451.6 mg/g (0-30); Microalbumin Urine Random 121.5 mg/L
== END 2024-06-03 16:36 | disposition home or self-care (01) ==
PROVIDERS: Visit Provider Family Medicine
DX: N18.30 Chronic kidney disease, stage 3 unspecified (principal)
CPT/HCPCS: 81001; 82043

== ENCOUNTER 2024-07-20 13:42 | Outpatient (CLI) | payer MEDICARE, SELFPAY ==
--- NOTE | ~2024-07-20 | CT_ITS ---
Noncontrast CT scan of the lumbar spine CLINICAL HISTORY: Radiculopathy, back pain TECHNIQUE: Axial noncontrast imaging of the lumbar spine was performed. Sagittal and coronal reformat valente images were constructed. Dose reduction technique was used on this scan by utilizing automated ex posure control and iterative reconstruction technique. The dose-length product (DLP) was 684.30 mGy-c m. COMPARISON: 05/20/2024 FINDINGS: No acute fracture. Stable osseous alignment from prior exam. Stable grade 1 retrolisthesis of L1 over L2 and L2 over L3. At L1-L2, there is advanced degenerative disc narrowing. No significant disc bulge or herniation evid ent. There is mild facet arthropathy. No central canal stenosis. There is moderate to advanced left n eural foraminal narrowing. Right neural foramen relatively well-preserved. At L2-L3, there is minimal disc bulge with moderate facet arthropathy. Probable mild central canal st enosis. Probable mild bilateral neural foraminal narrowing. At L3-L4, there is mild disc bulge and moderate facet arthropathy. Probable minimal central canal geena nosis. Neural foramina are preserved. At L4-L5, there is disc bulge and advanced facet arthropathy, severe central canal stenosis/thecal sa c compression. There is mild bilateral neural foraminal narrowing. At L5-S1, there is mild disc bulge with moderate facet arthropathy. No central canal stenosis. There is mild to moderate right neural foraminal narrowing, and mild left neural foraminal narrowing. Paravertebral soft tissues are unremarkable. Impression: Degenerative spondylosis, essentially stable from prior exam, with severe spinal canal stenosis at L4 -L5. Please see details above. Stable grade 1 retrolisthesis of L1 over L2, and of L2 over L3. Reviewed, dictated and finalized at location M. Impression: Degenerative spondylosis, essentially stable from prior exam, with severe spina l canal stenosis at L4-L5. Please see details above. Stable grade 1 retrolisthesis of L1 over L2, and of L2 over L3.
--- OUTSIDE RECORDS SUMMARY | 2024-07-20 16:02 | XMS_ITS ---
Author Organization [facility] Address [address] [place], [place] [address] Care Team Providers Care Assignment Agent Name Role Phone Qasim Garrett Unavailable Unavailable GILA CERVANTES Unavailable [phone] REASON FOR VISIT *General care Encounters Encounter Location Date Provider Diagnosis [place] [address] [place], [place] [address] 03/31/2024 GILA CERVANTES Plan Of Treatment No Information Progress Notes * RAKAN SHAWDOB:[birth year] (89 yo F)Acc No.[id number]:03/31/2024 Patient: RAKAN CAMACHO Provider: Leatha Cervantes DPM :1935 A ge:89 Y S ex:Female Date:03/31/2024 Address:[address] [place] [address], [facility] Subjective: * Chief Complaints: * 1 . *General care. * Medical History: Objective: * Vitals: Assessment: Plan: * Treatment: * Billing Information: * Visit Code: * Procedure Codes: * Electronic signature of GILA CERVANTES DPM on 07/20/2024 at 04:02 PM CDT Sign off status: Pending * Provider: Leatha Cervantes DPM Date: 03/31/2024 Generated for Printi ng/Faxing/eTransmitting on: 0 07/20/2024 04:02 PM CDT
--- OUTSIDE RECORDS SUMMARY | 2024-07-20 16:02 | XMS_ITS | Patient Health Record ---
Author Organization [facility] Address [address] [place], [place] [address] Care Team Providers Care Industrial Diamond Polisher Name Role Phone Qasim Garrett Unavailable Unavailable GILA CERVANTES Unavailable [phone] RANDY FLOWERS Unavailable [phone] Allergies Allergen (clinical drug ingredient) Drug/Non Drug Allergy documented on EMR Reaction Allergy Type Onset Date Status Opioid Analgesics (uncoded) Unknown Allergy 10/17/2021 active Substance with penicillin structure and antibacterial mechanism of action (substance) Penicillins Unknown Drug Allergy 10/17/2021 active Reason For Referral No Information Encounters Encounter Location Date Provider Diagnosis [address] [id number] 01/21/2024 RANDY FLOWERS Other hammer toe(s) (acquired), right foot M20.41 ; Tinea unguium B35.1 ; Other hammer toe(s) (acquired), left foot M20.42 ; Pain in right toe(s) M79.674 ; Pain in left toe(s) M79.675 ; 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, bilateral legs I70.203 ; Acquired keratosis [keratoderma] palmaris et plantaris L85.1 and Localized edema R60.[address] [id number] 09/17/2023 RANDY FLOWERS Other hammer toe(s) (acquired), right foot M20.41 ; Tinea unguium B35.1 ; Other hammer toe(s) (acquired), left foot M20.42 ; Pain in right toe(s) M79.674 ; Pain in left toe(s) M79.675 and 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, bilateral legs I70.[address] [id number] 11/19/2023 RANDY FLOWERS Other hammer toe(s) (acquired), right foot M20.41 ; Tinea unguium B35.1 ; Other hammer toe(s) (acquired), left foot M20.42 ; Pain in right toe(s) M79.674 ; Pain in left toe(s) M79.675 ; 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, bilateral legs I70.203 ; [...] (ICD-10 - M79.675) 11/19/2023 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, bilateral legs (ICD-10 - I70.203) Patient educated on risks and aggravating factors of PVD, including conservative treatment options such as a diet and exercise regimen to aid in slowing progression of vascular disease 09/17/2023 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, bilateral legs (ICD-10 - I70.203) Patient educated on risks and aggravating factors of PVD, including conservative treatment options such as a diet and exercise regimen to aid in slowing progression of vascular disease 01/21/2024 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, bilateral legs (ICD-10 - [...] Date Coverage End Date Medicare Part B [place] [address] [place] [address] [id number] [place] Self - patient is the insured [facility] Insurance [address] [address] [place] [id number] [place] Self - patient is the insured
--- OUTSIDE RECORDS SUMMARY | 2024-07-20 16:02 | XMS_ITS | Data Portability ---
Author Organization [facility], [address] [place] [address] [place]rology ([place]) Address [address] 4th [place] [address] Care Team Providers Care Clinical Research Coordinator Name Role Phone HI ROLON Primary Care [...] of her right hand. She went to [facility] over the weekend. They diagnosed [...] does have a pacemaker. It is a [employer] that is MRI compatible. However, one of the leads is not a [employer] lead and so they do not know [...] of her shoulder that were done as [facility]. She does have evidence of calcific [...] is of unknown origin, it is not [employer], so we really cannot confirm whether or [...] be equal left and right in her solutions developer and wrist flexors and extenders. 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 PLAN: I anticipated Sera would have gotten a little bit more mobility and range of motion out of the physical therapy. I still think gentle mobilization and traction would be probably of some benefit to her, but the therapist there in [place] just did not agree. Potentially, facet injections [...] we will be referring her upstairs. nita collazo Not available 03/07/2024 20:22:11 05/12/2024 05/12/2024 IMPRESSION: [...] pain. 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 [employer] AICD. (Updated 05/23/2024: Per [facility] the patient has a [employer] ICD. Placement of a magnet temporarily turns off defibrillator function until the magnet is removed. Patient is pacemaker dependent and recommendation during a radiofrequency ablation is to have the device reprogrammed by the device rep into asynchronous pacing to turn off the defibrillator function. After the device rep should reprogram to previous settings.) Medication Changes: >The patient prefers to avoid [...] x-ray imaging from her recent visit to [facility]. Functional Rehabilitation: > Continue with home physical [...] medications in the past including gabapentin, pregabalin, [place], and cyclobenzaprine but has unfortunately had sedating effects from all of these. He denies significant motor weakness, bowel or bladder incontinence, or saddle anesthesia although she does chronically ambulate with the assistance of a cane. She reports that she did have recent imaging performed at [facility] regarding her back and right hip pain [...] of which has been present since around 2018 without any true inciting event but has [...] these. Imaging and Studies: May [address] without ([facility]) (updated 05/22/2024 and patient contacted with results) Findings: No acute fracture seen. There is 5 mm retrolisthesis of L1 over L2. There is 3 mm retrolisthesis of L2 over L3. At L1-L2, there is moderate to advanced degenerative disc narrowing. No significant disc bulge or herniation. Minimal facet arthropathy. No central canal stenosis or there is moderate left neuroforaminal narrowing. At L4-L5, there is disc bulge with severe facet arthropathy. There is moderate to severe spinal canal stenosis/thecal sac compression. There is mild to moderate right neuroforaminal narrowing. There is mild left neuroforaminal narrowing. At L5-S1: There is no disc bulge or herniation. No spinal canal stenosis. There is mild to moderate bilateral neuroforaminal narrowing. Impression: Moderate degenerative spondylosis overall, as detailed above. 5 mm retrolisthesis of L1 over L2. 3 mm retrolisthesis of L2 over L3. May 2024 bilateral hip and pelvis x-ray ([facility]) (updated 05/22/2024 and patient contacted with results) Findings: No acute fracture or dislocation is seen. Osseous alignment is anatomic. Bilateral hip and SI joint spaces are preserved. Soft tissues are unremarkable. Impression: No significant abnormality is seen. May 2024 lumbar x-ray ([facility]) (updated 05/18/2024) Findings: 15 degrees lumbar dextroscoliosis. [...] at L4-L5. February [address] without ([facility]) Findings: There is 2 mm retrolisthesis of [...] Cardiac pacer device partially included within the [id number]-wggy. IMPRESSION: Moderate degenerative spondylosis of the cervical spine as above. 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 [email or web address] Not available 05/23/2024 17:22:21 Plan of Treatment Reminders Order Date Submit Date Provider Last Modified By Organization Details Last Modified Time Details Appointments Nurse Surge kaylin Block 25.SILVIA PAGAN 2024 09:00A M Dr. Erick Abdi Not available Not available Not available ASC Surge Nahun PAGAN 2024 11:40A M Dr. Erick Abdi Not available Not available Not available ASC Surge ry.SILVIA PAGAN 2024 11:40A M Interventiona l Spine Care Not available Not available Not available Lab None recor ded. Referral physi cholo thera pist refer ral - Evalu ate and Treat Cervi cholo radic ulopa thy/R ight shoul teetee painM odali ties/ Range of Motio n/Tra ction 2023 024 ALAINA Not available 01/04/2024 21:05:16 Procedures None recor ded. Surgeries None recor ded. Imaging CT, cervi cholo spine , w/o contr ast 2024 025 [facility] Only - Ne Radiology, [address] [place] [address], [id number], 03/14/2024 13:36:38 XR, cervi cholo spine , 2 or 3 view 2023 024 [facility] Only - Ne Radiology, [address] [place] [address], [id number], 12/28/2023 15:01:24 Medication Orders predn isone 10 mg table t 2023 025 [facility] #[id number], [address] [place], [place], [id number], 05/12/2024 13:17:31 cyclo benza john 10 mg table t 2023 025 [facility][id number], [address], [place], [id number], 05/12/2024 13:16:05 Patient TargetsNo targets recorded. Patient InstructionsNo [...] cholo spine , 2 or 3 view [place] [phone] Teleph one [phone] Name: Boris Mcmullen 1922Ex am Date: 2023 [...] 11:24 AM cc: Page [facility] - [facility] Radiology [address] [place] [address], [id number], 12/28/2023 15:02:15 03/14/19 25 03/11/2024 CT, cervi cholo spine , w/o contr ast No observ ation record ed. [facility] Radiology [address] [place], [address], 03/15/2024 10:17:46 04/01/19 25 03/11/2024 CT, cervi cholo spine , w/o contr ast No observ ation record ed. [facility] Sc Only - Sc Radiology [address] , [place], [address], 04/01/2024 16:40:07 05/21/19 25 05/20/2024 CT, lumba r spine , w/o contr ast No observ ation record ed. [facility] Radiology [address] [place], [address], 05/23/2024 11:50:54 Result Notes None recorded. Problems Name Problem SNOMED Code Status Onset Date Resolution Date Notes Provider Name and Address Organization Details Recorded Time Pain of right shoulder joint 744227183641 20416 Active 2023 Angie Plascencia [facility], [facility] 4 11:51:17 Pain of right shoulder region Active 2023 Angie Plascencia [facility] 4 11:51:28 Cervical radiculop athy 28327536 Active 2023 Angie Plascencia [facility], [facility] 4 12:38:50 Calcific tendiniti s of left shoulder 241225482760 108 Active 2023 Marcelina Boston [facility] 4 19:16:05 Calcific tendiniti s of right shoulder 053561787031 107 Active 2023 Marcelina Boston [facility] 4 19:16:10 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 89500025 Active 2023 Marcelina [place] [facility], [facility] 4 19:16:38 Neck pain 04568173 Active 2024 Angie Plascencia [facility] 5 18:19:18 Cervical spondylos is 713788564 Active 2024 Marcelina Boston [facility] 5 12:13:14 Lumbar radiculop athy 328256491 Active 2024 Sariah Nelson null, [facility] 5 12:29:36 Arthropat hy of cervical spine facet joint 496230887 Active 2024 Erick Abdi MD [address] [place] [address], [phone], [facility] 5 12:34:00 Degenerat isaias lumbar spinal stenosis 236278688 Active 2024 Erick Abdi MD [address] [place] [address], [address], [facility] 5 12:34:15 Pain of hip region 15285070 Active 2024 Sariah Leslie null, [facility] 5 12:43:07 Actinic keratosis 782488925 Active 2023 Radhika Kyree [facility] 4 11:11:22 Dry skin dermatiti s 339409101 [facility]23 [facility] 4 11:13:35 Rosacea 392193541 Active 2023 Radhika Kyree [facility] 4 11:13:42 Multiple benign melanocyt ic nevi 558858725 Active 2023 Left & Right upper extremity Radhika Kyree [facility] 4 11:14:03 Seborrhei c keratosis 022521088 Active 2023 Radhika Kyree null, [facility] 4 11:14:10 Solar lentigo 72587328 Active 2023 [facility] 11:14:16 Intertrig o 78632768 Active 2023 [facility] 4 11:14:24 Severe dry skin 605323645 Active 2023 Renee Rubin null, [facility] 4 11:52:57 Melanocyt ic nevus of right upper limb 563605373 Active 2023 [facility] 4 11:53:14 Melanocyt ic nevus of right lower limb 936042971794 108 Active 2023 [facility] 4 11:53:18 Lentigo - freckle 103836313 Active 2023 [facility] 4 11:54:27 Problem Notes None recorded. Procedures Surgical History Date Name Laterality Status Provider Name and Address Organization Details Recorded Time 5 [place] Operative Report completed Erick Abdi MD [address] [place] [address], [id number] 07/12/2024 10:02:40 5 [place] Operative Report completed Erick Abdi MD [address] [place] [address], [id number] 06/10/2024 16:50:51 excision of malignant neoplasm completed Selene Hardin [facility] 07/15/2023 10:01:24 Imaging Results None recorded. Procedure Notes None recorded. Medical Equipment None Reported. Allergies Allergen ID Allergen Name Allergen Category Reaction Reaction Severity Criticality Documentation Date Start Date Code Code System Note Provider Name and Address Organization Details Recorded Time 5888066 Levaquin medicatio n Not available Not available Not available 03/11/20232017 33519 2 RxNorm Not Available [facility] 4 04:29:05 8678544 oxycodone medicatio n Not available Not available Not available 03/11/20232017 7804 RxNorm Not Available [facility] 4 04:29:05 4665961 Product containin g penicilli n (product) medicatio n Not available Not available Not available 03/11/20232017 88767 8001 SNOMED Not Available [facility] 4 04:29:05 0396356 acetamino phen / hydrocodo ne medicatio n Not available Not available Not available 03/11/20232017 22724 2 RxNorm Not Available [facility] 4 04:29:05 Medications Name Sig Start Date Stop Date [...] Not Available Not Available No t Available spironolact one 25 mg tablet TAKE [...] 07.09 Not Available Not Available Not Available oxycodone-a cetaminophe n 2.5 mg-325 mg tablet TAKE 1 TABLET BY MOUTH EVERY 8 HOURS NEEDED FOR PAIN active Not Available Not Available No t Available furosemide 20 mg tablet TAKE 1 [...] completed Not Available Not Available Not Available methylpredn isolone 4 mg tablets in a dose pack TAKE 6 TABLETS ON DAY 1 DIRECTED ON PACKAGE AND DECREASE BY 1 TAB EACH DAY FOR A TOTAL OF 6 DAYS active Not Available Not Available No t Available ketoconazol e 2 % topical cream [...] Not Available Vitals Date Recorded Body height Heart rate Oxygen saturation Oxygen saturation in Arterial blood by Pulse oximetry Provider Name and Address Organization Details Last Updated DateTime 03/07/2024 160.02 cm 70 /min 95 % 95 % [facility] 03/07/2024 12:10:52 Date Recorded Body height Provider Name an d Address Organization Details Last Updated DateTime 05/12/2024 160.02 cm Sariah [facility] 05/12/2024 12:02:27 Date Recorded Body height Body mass index (BMI) Body weight Heart rate Oxygen saturation Oxygen saturation in Arterial blood by Pulse oximetry Provider Name and Address Organization Details Last Updated DateTime 160.02 cm 28 kg/m2 45539.5 9 g 70 /min 95 % 95 % [facility] 11:34:13 Social History None recorded. Functional Status None recorded. Mental Status None recorded. Family History Nothing Reported. Medical History No medical history recorded. Gynecological HistoryNo gynecological history recorded. Obstetrics History GPAL:G 0 P 0 0 0 0 Past Encounters Encounter ID Performer Location Encounter Start Date Encounter Closed Date Diagnosis/Indication Diagnosis SNOMED-CT Code Diagnosis ICD10 Code Diagnosis Note [id number] Leslie Nevarez MD [address] [place] ([place]) [address] [place] [address] 07/15/2023 11:35:25 07/15/2023 12:36:02 Seborrheic keratosis 845013160 L82.1 History of malignant neoplasm of skin 917181609 Z85.828 Rosacea 975656442 L71.9 History of actinic keratosis 3021933425 104 Z87.2 [id number] Shubham Heath MD [address] [facility] ([place] [address] [place] [address] 12/28/2023 11:20:13 12/28/2023 13:23:10 Pain of right shoulder region 8640508784 M25.511 Cervical radiculopathy 43697815 M54.12 Calcific t endinitis of right shoulder 0742324335 41586 M75.31 Degenerati on of cervical intervertebral disc 23162353 M50.322 [id number] Shubham Heath MD [address] [facility] ([place]) [address] [address] 03/07/2024 11:43:02 03/07/2024 12:43:03 Neck pain 15069211 M54.2 Degenerati on of cervical intervertebral disc 07824661 M50.322 Cervical spondylosis 387 480067 M47.892 [id number] Erick Abdi MD [address] [facility] ([place]) [address] [place] [address] 05/12/2024 11:35:09 05/12/2024 15:47:22 Arthropathy of cervical spine facet joint 826572959 M47.812 Lumbar radiculopathy 128 743754 M54.16 Degenerati ve lumbar spinal stenosis 875263446 M48.061 [id number] Erick Abdi MD [facility] ([place] [address] [place] [address], [address] [place] [address] 06/10/2024 15:07:36 06/16/2024 16:30:09 [id number] Erick Abdi MD [facility] [place] [address] [place] [address], [address] [place] [address] 07/12/2024 08:16:26 07/18/2024 13:44:51 Health Concerns Section Related Observation LastModified by Organization Detai ls LastModified Time None Recorded Concern Status LastModified by Organization Details LastModified Time None Recorded Advance Directives Directive None Recorded Payers Insurance Date Sequence Insurance Name Policy Number Policy Schmidt Covered Member ID Schmidt Member ID Guarantor Name 05/05/2024 2 [employer] - PLAN F (MEDICARE SUPPLEMENT) Sera Shaffer [id number] Sera Shaffer 07/10/2024 1 [place] Sera Shaffer [id number] Sera Shaffer Notes Date Note Type Note Provider Name and Address Organization Details Recorded Time 06/11/19 25 text/htm l [facility] HPIReported bypatient.The history and physical review:The history and physical dated 05/12/2024 has been reviewed, the patient has been examined and no change has occurred in the patient's condition since the history and physical was completed. Pre-Procedure Diagnosis:M47.892 Date of Procedure:06/10/2024 Proposed Procedure/Surgery:Rt C4-C6 MBB #1 Physician Performing the Procedure:Dr. Abdi Proposed Anesthetic:Local Erick Abdi MD [address] [place] [address], [phone], [facility] 06/10/2024 16:50:55 07/13/19 25 text/htm l IMPRESSION:The patient is an 89-year-old female with a [...] have cervical radicular symptoms at this time. Positive response to right C4-C6 MBB x 1 Plan:> Scheduled for Rt C4-C6 MBB #2 today.> Risks, benefits, and alternatives were reviewed. Specific risks discussed include bleeding complications, infection, permanent nerve damage, adverse medication effects, and failure to provide pain relief. Patient voiced understanding. Pre-Procedure Evaluation Patient's clinic note from 05/12/2024 was reviewed. There are no substantive changes to the patient's medical history since this evaluation. SubjectiveInterval History:The patient is an 89-year-old female who presents [...] medications in the past including gabapentin, pregabalin, [place], and cyclobenzaprine but has unfortunately had sedating effects from all of these. He denies significant motor weakness, bowel or bladder incontinence, or saddle anesthesia although she does chronically ambulate with the assistance of a cane. She reports that she did have recent imaging performed at [facility] regarding her back and right hip pain [...] reports that she is no longer taking Eliquis.Primary Pain Complaint:History:The patient is an 85-year-old female with a [...] not able to tolerate these. Imaging and Studies:May [address] without ([facility]) (updated 05/22/2024 and patient contacted with results)Findings: No acute fracture seen. There is 5 mm retrolisthesis of L1 over L2. There is 3 mm retrolisthesis of L2 over L3.At L1-L2, there is moderate to advanced degenerative disc narrowing. No significant disc bulge or herniation. Minimal facet arthropathy. No central canal stenosis or there is moderate left neuroforaminal narrowing.At L4-L5, there is disc bulge with severe facet arthropathy. There is moderate to severe spinal canal stenosis/thecal sac compression. There is mild to moderate right neuroforaminal narrowing. There is mild left neuroforaminal narrowing.At L5-S1: There is no disc bulge or herniation. No spinal canal stenosis. There is mild to moderate bilateral neuroforaminal narrowing.Impression:Moderate degenerative spondylosis overall, as detailed above.5 mm retrolisthesis of L1 over L2.3 mm retrolisthesis of L2 over L3.May 2024 bilateral hip and pelvis x-ray ([facility]) (updated 05/22/2024 and patient contacted with results)Findings: No acute fracture or dislocation is seen. Osseous alignment is anatomic. Bilateral hip and SI joint spaces are preserved. Soft tissues are unremarkable.Impression: No significant abnormality is seen. May 2024 lumbar x-ray ([facility]) (updated 05/18/2024)Findings: 15 degrees lumbar dextroscoliosis. 2 mm retrolisthesis [...] projecting over the inferior aspect of the heart.Impression:1. 15 degrees lumbar dextroscoliosis with mild to moderate spondylosis with interval progression and now moderate disc height loss at L4-L5. February [address] without ([facility])Findings: There is 2 mm retrolisthesis of C3 on C4 and C4 on C5. Vertebral body heights are normal. There is severely decreased disc height at C3-C4 and C4-C5 and C5-C6 and moderately decreased disc height at C6-C7. The following this levels are specifically discussed:C2-C3: There is mild right uncovertebral joint osteoarthritis. There is severe bilateral facet joint osteoarthritis. There is mild right neuroforaminal stenosis. There is no central canal stenosis.C3-C4: There is severe bilateral uncovertebral joint osteoarthritis. There is mild bilateral facet joint osteoarthritis. There is mild bilateral neuroforaminal stenosis. There is mild central canal stenosis.C4-C5: There is severe bilateral uncovertebral joint osteoarthritis. There is mild bilateral facet joint osteoarthritis. There is mild right and moderate left neuroforaminal stenosis. There is mild central canal stenosis.C6/C7: There is severe bilateral uncovertebral joint osteoarthritis. There is severe bilateral facet joint osteoarthritis. There is mild bilateral neuroforaminal stenosis. There is no central canal stenosis.C6/C7: There is severe right uncovertebral joint osteoarthritis. There is severe bilateral facet joint osteoarthritis. There is mild right neuroforaminal stenosis. There is no central canal stenosis.C7-T1: There is no uncovertebral joint osteoarthritis. There is severe bilateral facet joint osteoarthritis. There is mild bilateral neuroforaminal stenosis. There is no central canal stenosis.Impression:1. No fracture.December 2023 cervical x-ray ([place])FINDINGS: No prevertebral soft tissue swelling. There is slight retrolisthesisof C3 on C4. There is slight retrolisthesis of C4 on C5. There is moderatemultilevel degenerative spondylosis at C3-4, C4-5, and C5-6 with intervertebraldisc space narrowing, endplate sclerosis, marginal osteophyte formation. Thereis facet arthropathy throughout the cervical spine. No acute osseous abnormalityidentified. Cardiac pacer device partially included within the [id number]-jo-eoyj.IMPRESSION: Moderate degenerative spondylosis of the cervical spine as above.Pain Treatment HistoryConservative Treatments Tried:Physical Therapy for primary complaintMedications Trailed:GabapentinPregabalinCycl obenzaprineNorcoOral steroidsAcetaminophenPrevious Interventional Pain Procedures:> L3-4 lumbar epidural steroid injections at an outside pain clinic in 2019 with mild benefit.Physical Exam:GEN: Alert & oriented, sitting in chair comfortablyHEAD: NC/ATEYES: Pupils equal round, grossly EOMIENT: MMM, Trachea midlineCV: Acyanotic, well-perfusedRESP: Unlabored respirations on room airABDOMEN: Non-distendedINTEGUMENT: Warm, no evidence of rashesPSYCHIATRIC: Mood and affect within normal limitsMSK: Gait is slow with the assistance of [...] lumbar paraspinal tenderness noted over lower facet jointsNEURO: Speech fluent, CN II-XII grossly intact, SILT throughout upper extremitiesSTRENGTH (R, L)Deltoids (5, 5)Biceps (5, 5)Triceps (5, 5)Hand [employer] Supervisor (5, 5)STRENGTH (R, L)Psoas (5, 5)Quads (5, 5)ATib (5, 5)Gastr (5, 5)Hamstring (5, 5)UPPER MOTOR (R, L)Clonus (NEG, NEG)PROVOCATIVECervical Facet Loading-positive on the rightSpurling's-neg b/lStraight leg raise (supine)-mildly positive on the rightSI joint tenderness palpation negative bilateralFABER's negative bilateralThigh thrust negative bilateralChief ComplaintThe patient presents to the office today with neck and low back pain. Erick Abdi MD [address] [facility], [place], [address], [facility] 07/12/2024 10:02:43 OBGyn Episode No OBEpisode recorded.
--- OUTSIDE RECORDS SUMMARY | 2024-07-20 16:03 | XMS_ITS ---
Author Organization [facility] Address [address] [place], [place] [address] Care Team Providers Care Java Flex Developer Name Role Phone Qasim Garrett Unavailable Unavailable RANDY FLOWERS Unavailable [phone] Allergies Allergen (clinical drug ingredient) Drug/Non Drug Allergy documented on EMR Reaction Allergy Type Onset Date Status Opioid Analgesics (uncoded) Unknown Allergy 10/17/2021 active Substance with penicillin structure and antibacterial mechanism of action (substance) Penicillins Unknown Drug Allergy 10/17/2021 active REASON FOR VISIT *General care Encounters Encounter Location Date Provider Diagnosis [address] [id number] 01/21/2024 RANDY FLOWERS Other hammer toe(s) (acquired), right foot M20.41 ; Tinea unguium B35.1 ; Other hammer toe(s) (acquired), left foot M20.42 ; Pain in right toe(s) M79.674 ; Pain in left toe(s) M79.675 ; 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 [...] Patient denies c hest pain, history of [place], irregular heartbeat. M usculoskeletal: Patient complains of [...] M79.675 6 . U nspecified atherosclerosis of curyung arteries of extremities, bilateral legs - I70.203 [...] were emphasized. 3. U nspecified atherosclerosis of curyung arteries of extremities, bilateral legs Notes: Patient [...] LESIONS, 2 TO 4, Modifiers: Q8 , 86097 DEBRIDE NAIL, 6 OR MORE, Modifiers: 59 , Q8 * Follow Up: 3 Months * Billing Information: * Visit Code: * Procedure Codes: 87277 TRIM SKIN LESIONS, 2 TO 4. Modifiers: Q8 71650 DEBRIDE NAIL, 6 OR MORE. Modifiers: 59, Q8 * Electronic signature of AILYN FLOWERS DPM on 07/20/2024 at 04:02 PM CDT Sign off status: Pending * Provider: Agustin FLOWERS Date: 1 03/23/2023 Generated for Daniel mar/Nannette/Nas on: 0 07/20/2024 04:02 PM CDT History and Physical Notes * [...]
== END 2024-07-20 13:43 | disposition home or self-care (01) ==
LOC: CHSIMG 13:44
PROVIDERS: PCP Family Medicine
DX: M54.16 Radiculopathy, lumbar region (principal); M43.06 Spondylolysis, lumbar region
CPT/HCPCS: 72131

== ENCOUNTER 2024-09-12 07:48 | Outpatient (CLI) | payer MEDICARE, SELFPAY ==
--- OUTSIDE RECORDS SUMMARY | 2024-09-12 07:55 | XMS_ITS ---
Author Organization [facility] Address [address] [place], [place] [address] Care Team Providers Care Wrapper Stitcher Name Role Phone Qasim Garrett Unavailable Unavailable GILA CERVANTES Unavailable [phone] REASON FOR VISIT *General care Encounters Encounter Location Date Provider Diagnosis [place] [address] [place], [place] [id number] 03/31/2024 GILA CERVANTES Plan Of Treatment No Information Progress Notes * RAKAN SHAWDOB:[birth year] (89 yo F)Acc No.[id number]:03/31/2024 Patient: RAKAN CAMACHO Provider: Leatha Cervantes DPM :1935 A ge:89 Y S ex:Female Date:03/31/2024 Address:[address] [place] [address], [facility] Subjective: * Chief Complaints: * 1 . *General care. * Medical History: Objective: * Vitals: Assessment: Plan: * Treatment: * Billing Information: * Visit Code: * Procedure Codes: * Electronic signature of GILA CERVANTES DPM on 09/12/2024 at 07:54 AM CDT Sign off status: Pending * Provider: Leatha Cervantes DPM Date: 03/31/2024 Generated for Printi ng/Faalcong/eTransmitting on: 0 09/12/2024 07:54 AM CDT
--- OUTSIDE RECORDS SUMMARY | 2024-09-12 07:55 | XMS_ITS | Encounter Summary ---
Author Organization [facility] Address [address] [place] [address] Care Team Providers Care Risk Modeler Name Role Phone Mary Barber MD Unavailable Qasim Garrett DO Primary Care Provider [phone] Tiffany Badillo MD Unavailable [phone] Erick Abdi MD Unavailable [phone] Jim Tamez MD Unavailable Monique Iverson NP Unavailable [phone] Bruno Can MD Unavailable [phone] Encounter Details Date Type Department Care Team (Latest Contact Info) Description 03/17/2024 [employer] Message [facility] [place] [address] Tiffany Badillo MD [address] [place] [address] Entresto - problem filling at [...] Sex Assigned at Female 03/07/2024 1:44 PM PROSTHETIC DENTIST Legal Sex Female 10:54 PM CDT Gender [...] Upcoming Encounters Date Type Department Care Team ([facility] st Contact Info) Description 12/09/2024 2:45 AM CDT Allied Health/Nurse Visit [facility] [address] [place] [phone] Mary Barber MD [address] [place] [address] 06/06/2025 9:00 AM CDT Office Visit [facility] [place] [address] Bruno Can MD [address] [facility] [address] [address] documented as of this encounter Visit Diagnoses Not on filedocumented in this encounter Care Teams Risk Modeler Relationship Specialty Start Date End Date Qasim Garrett DO [address] [place] [address] PCP - General FAMILY PRACTICE 04/13/19 Mary Barber MD [address] [place] [phone] EP Game Technician CLINICAL CARDIAC ELECTROPHYSIOLOGY 09/15/16 Tiffany Badillo MD [address] [place], [place] [id number] Consulting Physician INTERVENTIONAL CARDIOLOGY 12/23/19 04/15/24 Erick Abdi MD [address] [place] [address] Consulting Physician PAIN MANAGEMENT 09/06/20 Jim Tamez MD [address] [place] [address] Consulting Physician INTERNAL MEDICINE 09/10/23 Monique Iverson NP [address] [place] [address]. [address] [place] [id number] Nurse Practitioner Nurse Practitioner Acute Care 03/07/24 Bruno Can MD [address] [place] [id number] Physician INTERVENTIONAL CARDIOLOGY 04/15/24 documented as of this encounter
--- OUTSIDE RECORDS SUMMARY | 2024-09-12 07:55 | XMS_ITS | Encounter Summary ---
Author Organization [facility] Address [address] [place] [address] Care Team Providers Care Supervisor Tank House Name Role Phone Mary Barber MD Unavailable Thomas Brian MD Unavailable Unavailable [facility] Unavailable [phone] Qasim Garrett DO Primary Care Provider [phone] Tiffany Badillo MD Unavailable [phone] Erick Abdi MD Unavailable [phone] Jim Tamez MD Unavailable Monique Iverson NP Unavailable [phone] Bruno Can MD Unavailable [phone] Encounter Details Date Type Department Care Team (Late st Contact Info) Description 04/25/2017 Abstract [facility] [address] [place] [address] , Generic Conversion, Social History Tobacco Use Types Packs/Day Years Used Date Smoking Tobacco: Former Cigarettes Q uit: 09/23/1971 Smokeless Tobacco: Never Alcohol Use Standard Drinks/Week Comments No 0 (1 standard drink = 0.6 oz pur e alcohol) Comments Unknown Sex and Gender Information Value Date Recorded Sex Assigned at Female 03/07/2024 1:44 PM DEVELOPMENT EXPERT Legal Sex Female 10:54 PM CDT Gender [...] Care Team (Late st Contact Info) Description 12/09/2024 2:45 AM CDT [facility] [address] [place] [address] Mary Barber MD [address] [place] [address] 06/06/2025 9:00 AM CDT [facility] [address] [place] [address] [place] [address] Bruno Can MD [address] [facility] [address] [place] [address] documented as of this encounter Visit Diagnoses Not on filedocumented in this encounter Care Teams Supervisor Tank House Relationship Specialty Start Date End Date Qasim Garrett DO [address] [place] [address] PCP - General FAMILY PRACTICE 04/13/19 Mary Barber MD [address] [place] [phone] EP Bull Wheel Worker CLINICAL CARDIAC ELECTROPHYSIOLOGY 09/15/16 Thomas Brian MD [address] [place] [address] CARDIOVASCULAR DISEASE 09/16/16 04/12/19 [facility] Schwartz [facility] [address] [address] Nurse Practitioner Electrophysiology 09/18/16 12/22/19 Tiffany Badillo MD [address] [place] [address] Consulting Physician INTERVENTIONAL CARDIOLOGY 12/23/19 04/15/24 Erick Abdi MD [address] [place] [address] Consulting Physician PAIN MANAGEMENT 09/06/20 Jim Tamez MD [address] [place] [address] Consulting Physician INTERNAL MEDICINE 09/10/23 Monique Iverson NP [address] [place] [address]. [address] [place] [address] Nurse Practitioner Nurse Practitioner Acute Care 03/07/24 Bruno Can MD [address] [place] [id number] Physician INTERVENTIONAL CARDIOLOGY 04/15/24 documented as of this encounter
--- OUTSIDE RECORDS SUMMARY | 2024-09-12 07:55 | XMS_ITS | Encounter Summary ---
Author Organization [facility] Address [address] [place] [address] Care Team Providers Care Clinical Safety Specialist Name Role Phone Mary Barber MD Unavailable Thomas Brian MD Unavailable Unavailable [facility] Jose[facility] Unavailable [phone] Qasim Garrett DO Primary Care Provider [phone] Tiffany Badillo MD Unavailable [phone] Erick Abdi MD Unavailable [phone] Jim Tamez MD Unavailable Monique Iverson NP Unavailable [phone] Bruno Can MD Unavailable [phone] Encounter Details Date Type Department Care Team (Late st Contact Info) Description 01/24/2015 Abstract [facility] [address] [place] [address] Mary Barber MD [address] [place] [address] Social History Tobacco Use Types Packs/Day Years Used Date Smoking Tobacco: Never Alcohol Use Standard Drinks/Week Comments No 0 (1 standard drink = 0.6 oz pur e alcohol) Comments Unknown Sex and Gender Information Value Date Recorded Sex Assigned at Female 03/07/2024 1:44 PM SUPERINTENDENT LOCAL Legal Sex Female 10:54 PM CDT Gender Identity Not on file Sexual Orientation Not on file Occupation Industry Job Start Date Job End Date Retired Not on file Not on file Not on file documented as of this encounter Plan of Treatment Upcoming Encounters Date Type Department Care Team ([facility] Contact Info) Description 12/09/2024 2:45 AM CDT [facility] [address] [place] [address] Mary Barber MD [address] [place] [address] 06/06/2025 9:00 AM CDT [facility] [place] [address] Bruno Can MD [address] [facility] [address] [place] [address] documented as of this encounter Visit Diagnoses Not on filedocumented in this encounter Care Teams Clinical Safety Specialist Relationship Specialty Start Date End Date Qasim Garrett DO [address] [place] [address] PCP - General FAMILY PRACTICE 04/13/19 Mary Barber MD [address] [place] [address] EP Armored Car Guard And Driver CLINICAL CARDIAC ELECTROPHYSIOLOGY 09/15/16 Thomas Brian MD [address] [place] [address] CARDIOVASCULAR DISEASE 09/16/16 04/12/19 Josey Schwartz [facility] [address] [address] Nurse Practitioner Electrophysiology 09/18/16 12/22/19 Tiffany Badillo MD [address] [place] [address] Consulting Physician INTERVENTIONAL CARDIOLOGY 12/23/19 04/15/24 Erick Abdi MD [address] [address] Consulting Physician PAIN MANAGEMENT 09/06/20 Jim Tamez MD [address] [place] [address] Consulting Physician INTERNAL MEDICINE 09/10/23 Monique Iverson NP 6[address] E [facility]. [address] [place] [address] Nurse Practitioner Nurse Practitioner Acute Care 03/07/24 Bruno Can MD [address] E [facility] [address] [place] [address] Physician INTERVENTIONAL CARDIOLOGY 04/15/24 documented as of this encounter
--- OUTSIDE RECORDS SUMMARY | 2024-09-12 07:55 | XMS_ITS ---
Author Organization [facility] Address [address] [place], [place] [address] Care Team Providers Care Donkey Ride Operator Name Role Phone Qasim Garrett Unavailable Unavailable RANDY FLOWERS Unavailable [phone] Allergies Allergen (clinical drug ingredient) Drug/Non Drug Allergy documented on EMR Reaction Allergy Type Onset Date Status Opioid Analgesics (uncoded) Unknown Allergy 10/17/2021 active Substance with penicillin structure and antibacterial mechanism of action (substance) Penicillins Unknown Drug Allergy 10/17/2021 active REASON FOR VISIT *General care Encounters Encounter Location Date Provider Diagnosis [address] [id number] 01/21/2024 RANDY FLOWERS Other hammer toe(s) (acquired), right foot M20.41 ; Tinea unguium B35.1 ; Other hammer toe(s) (acquired), left foot M20.42 ; Pain in right toe(s) M79.674 ; Pain in left toe(s) M79.675 ; 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 [...] M79.675 6 . U nspecified atherosclerosis of quileute arteries of extremities, bilateral legs - I70.203 [...] were emphasized. 3. U nspecified atherosclerosis of quileute arteries of extremities, bilateral legs Notes: Patient [...] LESIONS, 2 TO 4, Modifiers: Q8 , 77485 DEBRIDE NAIL, 6 OR MORE, Modifiers: 59 , Q8 * Follow Up: 3 Months * Billing Information: * Visit Code: * Procedure Codes: 99125 TRIM SKIN LESIONS, 2 TO 4. Modifiers: Q8 31869 DEBRIDE NAIL, 6 OR MORE. Modifiers: 59, Q8 * Electronic signature of AILYN LFOWERS DPM on 09/12/2024 at 07:54 AM CDT Sign off status: Pending * Provider: Agustin FLOWERS Date: 1 03/23/2023 Generated for Daniel mar/Nannette/Nas on: 0 09/12/2024 07:54 AM CDT History and Physical Notes * [...]
--- OUTSIDE RECORDS SUMMARY | 2024-09-12 07:55 | XMS_ITS | Encounter Summary ---
Author Organization [facility] Address [address] [place] [address] Care Team Providers Care Academic Vice President Name Role Phone Mary Barber MD Unavailable Qasim Garrett DO Primary Care Provider [phone] Tiffany Badillo MD Unavailable [phone] Erick Abdi MD Unavailable [phone] Jim Tamez MD Unavailable Monique Iverson NP Unavailable [phone] Bruno Can MD Unavailable [phone] Encounter Details Date Type Department Care Team (Late st Contact Info) Description 11/02/2020 Hospital Orders Only [facility] Anesthesia [address] [place] [address] Melia Buenrostro Anesthesia Record Procedure Summary Procedure [...] Marital Status 03/27/2019 [facility] [place] of Occupat ional Health - Occupational Stress [...] Sex Assigned at Female 03/07/2024 1:44 PM INCLUSION SPECIAL EDUCATOR Legal Sex Female 10:54 PM CDT Gender [...] Assessment Author Status No 03/28/2019 12:00 AM INCLUSION SPECIAL EDUCATOR 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 Answer Date of Assessment Author Status No 03/28/2019 12:00 AM INCLUSION SPECIAL EDUCATOR Acti ve * Do you have serious difficulty walking or climbing stairs? Answer Date of Assessment Author Status Yes 03/28/2019 12:00 AM INCLUSION SPECIAL EDUCATOR Jonas Garcia CRNA Active * Do you have difficulty dressing or bathing? Answer Date of Assessment Author Status No 03/28/2019 12:00 AM INCLUSION SPECIAL EDUCATOR Jonas Garcia CRNA Active * Because of a physical, mental, or emotional condition, do you have difficulty doing errands alone such as visiting a doctor's office or shopping? Answer Date of Assessment Author Status No 03/28/2019 12:00 AM INCLUSION SPECIAL EDUCATOR Jonas Garcia CRNA Active documented as of this encounter Mental Status * Because of a physical, mental, or emotional condition, do you have serious difficulty concentrating, remembering, or making decisions? Answer Entry Date Author Status No 03/28/2019 12:00 AM INCLUSION SPECIAL EDUCATOR Jonas Garcia CRNA Active documented in this encounter Plan of Treatment Upcoming Encounters Date Type Department Care Team (Late st Contact Info) Description 12/09/2024 2:45 AM CDT Allied Health/Nurse Visit [facility] [address] [place] [address] Mary Barber MD [address] [place] [address] 06/06/2025 9:00 AM CDT Office Visit [facility] [place] [address] Bruno Can MD [address]19 [facility] [address] [place] [address] documented as of this encounter Visit Diagnoses Not on filedocumented in this encounter Care Teams Academic Vice President Relationship Specialty Start Date End Date Qasim Garrett DO [address] [place] [address] PCP - General FAMILY PRACTICE 04/13/19 Mary Barber MD [address] [place] [address] EP Instrumentation Designer CLINICAL CARDIAC ELECTROPHYSIOLOGY 09/15/16 Tiffany Badillo MD [address] [place], [place] [address] Consulting Physician INTERVENTIONAL CARDIOLOGY 12/23/19 04/15/24 Erick Abdi MD [address] [place] [address] Consulting Physician PAIN MANAGEMENT 09/06/20 Jim Tamez MD [address] [place] [address] Consulting Physician INTERNAL MEDICINE 09/10/23 Monique Iverson NP [address] [facility]. [address] [place] [address] Nurse Practitioner Nurse Practitioner Acute Care 03/07/24 Bruno Can MD [address] [facility] [address] [place] [address] Physician INTERVENTIONAL CARDIOLOGY 04/15/24 documented as of this encounter
--- OUTSIDE RECORDS SUMMARY | 2024-09-12 07:55 | XMS_ITS | Clinical Summary ---
Author Organization [facility] Address [address] [place] [address] Care Team Providers Care Bait Digger Name Role Phone Mary Barber MD Unavailable Qasim Garrett DO Primary Care Provider [phone] Erick Abdi MD Unavailable [phone] Jim Tamez MD Unavailable Monique Iverson NP Unavailable [phone] Bruno Can MD Unavailable [phone] Allergies Active Allergy Reactions Criticality Noted Date Comments Barbiturates Vomiting 09/09/2024 Levofloxacin Other (see comment),Unknown Medium 12/18/2015 Loss of appetite Oxycodone GI Upset Medium 12/18/2015 Penicillins Anaphylaxis High 12/18/2015 Hydrocodone-Acetaminoph en GI Upset Medium 12/18/2015 Medications levothyroxine 100 [...] STOCKINGS, DME,Indications:Le g edema,Hypercholest erolemia,Essential hypertension,Prima ry hypertension,snf current use of antiarrhythmic drug,Pain and swelling of left lower leg Knee high compression stockings, 10-15 mmHg, open or closed toe, to be worn during waking hours 1 Package 2 09/16/19 24 Active aspirin EC (ECOTRIN) 81 MG tablet Take 2 tablets (162 mg total) by mouth daily. 03/15/19 25 Active sacubitril-valsart an (ENTRESTO) 24-26 MG tablet Take 1 tablet by mouth 2 (two) times daily. 180 tablet 3 03/17/19 25 Active rosuvastatin (CRESTOR) 40 MG tablet Take 1 tablet (40 mg total) by mouth nightly at bedtime. 90 tablet 2 07/21/19 25 Active vibegron (GEMTESA) 75 MG tablet Take 1 tablet (75 mg total) by mouth daily. 05/07/19 25 Active triamcinolone (KENALOG) 0.5 % cream Apply topically 2 (two) times daily. 09/02/19 25 Active pregabalin (LYRICA) 100 MG capsule Take 1 capsule (100 mg total) by mouth daily. Active multi vitamin/minerals (CENTRUM ADULTS) tablet (18-400 mg-mcg) Active amiodarone (PACERONE) 100 MG tablet Take by mouth daily. Active apixaban (ELIQUIS) 5 MG tablet Take by mouth daily. Active cyclobenzaprine (FLEXERIL) 10 MG tablet 12/28/19 24 025 Discontinu ed(Discont inued by another clinician) ondansetron (ZOFRAN-ODT) 4 MG disintegrating tablet 4 mg orally every 6 hours as needed for nausea and vomiting 12/27/19 24 025 Discontinu ed(Discont inued by another clinician) Active Problems Problem Noted Date Diagnosed Date DVT (deep venous thrombosis) ([facility]/HCC [facility]) 0 09/09/2024 Overview (09/09/2024): Phreesia 09/17/2023 Gastroesophageal reflux disease 09/09/2024 Overview (09/09/2024): Phreesia 09/17/2023 Pulmonary embolism ([facility]) 09/09/2024 Overview (09/09/2024): Phreesia 09/17/2023 Cerebrovascular accident (CVA) ([facility]) 09/09/2024 Overview (09/09/2024): Phreesia 09/17/2023 History of pulmonary embolus (PE) 03/15/2024 History of DVT (deep vein thrombosis) 03/15/2024 Other thrombophilia 03/07/2024 Leg edema 09/15/2023 VT (ventricular tachycardia) ([facility]) 0 05/19/2023 Closed displaced fracture of cuboid [...] right ankle 01/28 Chronic congestive heart failure ([facility]/ C) 10/22/2017 Premature ventricular contractions 09/22/2016 S/P AV trell ablation 09/08/2016 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 09/08/2016 H/O intracranial hemorrhage 09/08/2016 NICM (nonischemic cardiomyopathy) ([facility]/H CC) 12/18/2015 TIA (transient ischemic attack) Overview (12/18/2015): Came in for possible TIA today Hypertension Hyperlipidemia Paroxysmal atrial fibrillation ([facility]/HCC [facility]) Resolved Problems Problem Noted Date Diagnosed Date Resolved Date Pre-op examination 10/22/2017 0 Encounters Date Type Department Care Team Description 09/09/2024 3:00 PM CDT Office Visit [facility] [address] [place] [address] Monique Iverson NP Follow Up; Cardiac Device Management; Atrial Fibrillation 09/09/2024 Travel 09/07/2024 Orders Only [facility] [address] [place] [address] Mary Barber MD 09/02/2024 Telephone [facility] [address] [place] [address] Mary Barber MD Appointment Request 08/29/2024 2:50 AM CDT Allied Health/Nurse Visit [facility] [address] [place] [address] Mary Barber MD 07/20/2024 Telephone [facility] [address] [place] [address] Bruno Can MD Refill Request 06/21/2024 Results Follow-Up [facility] [address] [place] [address] Kathryn Chaney [place] US CAROTID DUPLEX JASPAL, LIPID PANEL, USE ECHOCARDIOGRAM 06/20/2024 8:30 AM CDT - 06/20/2024 11:59 PM CDT Hospital Encounter [facility] [address] [place] [address] Bruno Can MD Discharge Disposition: Home or Self Care (Routine Discharge) 06/20/2024 8:30 AM CDT Hospital Encounter [facility] [address] [place] [address] Bruno Can MD Discharge Disposition: Home or Self Care (Routine Discharge) 06/20/2024 Travel from Last 3 Months Immunizations Immunization Administration Dates Next Due Tdap (Boostrix) 01/28/2019 Family History Medical History Relation Comments CABG Brother 1 Stent Cardiac Brother 1 Diabetes Brother 2 Heart Disease Brother 2 Hypertension Brother 2 Heart Disease Daughter 1 Hypertension Daughter 1 Stroke Daughter 1 Stroke Daughter 3 Early Father Heart Disease Father Hypertension Father LA Father Arthritis Mother Diabetes Mother Heart Disease Mother Hypertension Mother LA Mother Heart Disease Other premature rouse ry heart disease Stroke Paternal Grandfather Diabetes Sister Heart Disease Sister Relation Status Comments Brother 1 Brother 2 Alive Brother 3 Alive Daughter 1 Alive Daughter 2 Alive Daughter 3 Alive Father (Age 55) Maternal Grandfather Maternal Grandmother (Age 60) Mother (Age 71) Other Other Family history i s positive for premature coronary heart disease Paternal Grandfather (Age 70) Sister Alive Social History Tobacco Use Types Packs/Day Years [...] Organization Meetings Never 03/27/2019 Marital Status 03/27/2019 [facility] [place] [facility] Occupat ional Health - Occupational Stress [...] Sex Assigned at Female 03/07/2024 1:44 PM SPINNING MULE TENDER Legal Sex Female 10:54 PM CDT Gender Identity Not on file Sexual Orientation Not on file Occupation Industry Job Start Date Job End Date Retired Not on file Not on file Not on file Not on file Not on file Not on file Not on file Last Filed Vital Signs Vital Sign Reading Time Taken Comments Blood Pressure 132/68 09/09/2024 2:47 PM CDT Pulse 78 09/09/2024 2:47 PM CDT Temperature 36.7 C (98 F) 02/05/2023 11:06 AM SPINNING MULE TENDER Respiratory Rate 16 09/09/2024 2:47 PM CDT Oxygen Saturation 96% 09/09/2024 2:47 PM CDT Inhaled Oxygen Concentration - - Weight 70.8 kg (156 lb) 09/09/2024 2:47 PM CDT Height 160 cm (5' 3) 09/09/2024 2:47 PM CDT Body Mass Index 27.63 09/09/2024 2:47 PM CDT Plan of Treatment Upcoming Encounters Date Type Department Care Team ([facility] Contact Info) Description 12/09/2024 2:45 AM CDT Allied Health/Nurse [facility] [address] [place] [phone] Mary Barber MD [address] [place] [phone] 06/06/2025 9:00 AM CDT Office Visit [facility] [place] [address] Bruno Can MD [address] [facility] [address] [place] [address] Health Maintenance Due Date Last Done Comments [...] this topic Medical Devices Implanted Type Area Rotary Screen Printing Machine Operator Device Identifier Shelf Expiration Date Model / Serial / Lot [employer] Momentum Bi-V-11/03/2022 Implanted:Qty: 1 on 11/03/2022 by Mary Barber MD ICD [employer] 08/06/2024 [id number] / [id number] / Description:DX: [place] [employer] Lv-04/04/2013 Implanted:04/04 (Quantity not on file) Lead Implant [employer] 4592-90 / [id number] / [employer] Rv-04/04/2013 Implanted:04/04 (Quantity not on file) Lead Implant [employer] [id number] / [id number] / [employer] Ra-04/04/2013 Implanted:04/04 (Quantity not on file) Lead Implant [employer] [id number] / [id number] / Explanted Type Area Rotary Screen Printing Machine Operator Device Identifier Shelf Expiration Date Model / Serial / Lot Bivad-04/04/2013 Implanted:2013 by Mary Barber MD (Quantity not on file) Explanted:Qty: 1 on 11/03/2022 by Mary Barber MD BiVAD Procedures Procedure Name Priority Date/Time Associated Diagnosis Comments USE ECHOCARDIOGRAM Routine 06/20/2024 10 :13 AM CDT NICM (nonischemic cardiomyopathy) (CMS/HCC HHS/HCC) Mixed hyperlipidemia USV CAROTID DUPLEX JASPAL Routine 10:13 AM CDT TIA (transient ischemic attack) LIPID PANEL Routine 06/20/2024 8:45 AM CDT Mixed hyperlipidemia from Last 3 Months Results * USE ECHOCARDIOGRAM (06/20/2024 10:13 AM CDT) Anatomical Region Laterality Modality Cardiac Ultrasound 06/20/2024 9:10 AM CDT Narrative 06/24/2024 5:21 AM CDT Echocardiography Report Pat.Name: Sera Shaffer clive Pat.ID: [id number] .Date: 06/20/2024 Refer.MD: Hunter, [facility] Exam Time: 9:10:00 AM Study Type:HUNTER Height: 63 in Weight: 151 lb BSA: 1.72 m2 Age: 1 1935,89Y Sex: F Sonogrphr: Gallo Pat. Stat.:Outpatient Reason for Study:NICM (nonischemic cardiomyopathy), Mixed hyperlipidemia Procedures: 2D, M-mode, Doppler, Color Flow, Study performed at [facility], [place], [place] and interpreted by [facility]. Intraveneous saline contrast was used to help determine presence of intracardiac shunting. ++++++++++++++++++++++++++++++++++++ SUMMARY: ++++++++++++++++++++++++++++++++++++ The left ventricular systolic function is moderately depressed. Estimated left ventricular ejection fraction is 35-40%. Right ventricular systolic function is depressed. Mild aortic regurgitation. ++++++++++++++++++++++++++++++++++++ FINDINGS: ++++++++++++++++++++++++++++++++++++ LV: The left ventricular size is normal. The left ventricular systolic function is moderately depressed. Estimated left ventricular ejection fraction is 35-40%. RV: The right ventricular size is normal. Right ventricular systolic function is depressed. Right ventricular systolic pressure is 27 mmHg. A pacemaker wire is visualized in the right ventricle. TAPSE = 11mm (<16 mm indicates systolic RV dysfunction). LA: The left atrial size is mild to moderately enlarged. RA: Right atrial size is mild to moderately enlarged. A pacemaker wire is visualized in the right atrium. IAS: The agitated saline injection showed no clear evidence of shunting into the left atrium, consistent with no patent foramen ovale. SHAGGY: No evidence of pericardial effusion. AO: Aorta is normal. SVn: Inferior vena cava is normal. AV: The aortic valve is trileaflet. No evidence of aortic valve stenosis. Mild aortic regurgitation. MV: Structurally normal mitral valve. Calcified posterior mitral annulus. Moderate thickening of mitral valve leaflets. PV: The pulmonic valve is normal There is trace pulmonic regurgitation TV: The tricuspid valve appears structurally normal. There is trace tricuspid regurgitation. <Electronic Signature> 06/24/2024 05:21 AM Bruno Can M.D. Procedure Note Bruno Can MD - 06/24/2024 Echocardiography Report Pat.Name: Sera Shaffer clive Pat.ID: [id number] .Date: 06/20/2024 Refer.MD: Hunter, [facility] Exam Time: 9:10:00 AM Study Type:HUNTER Height: 63 in Weight: 151 lb BSA: 1.72 m2 Age: 1 1935,89Y Sex: F Sonogrphr: Pat. Stat.:Outpatient Reason for Study:NICM (nonischemic cardiomyopathy), Mixed hyperlipidemia Procedures: 2D, M-mode, Doppler, Color Flow, Study performed at [facility], [place], [place] and interpreted by [facility]. Intraveneous saline contrast was used to help determine presence of intracardiac shunting. ++++++++++++++++++++++++++++++++++++ SUMMARY: ++++++++++++++++++++++++++++++++++++ The left ventricular systolic function is moderately depressed. Estimated left ventricular ejection fraction is 35-40%. Right ventricular systolic function is depressed. Mild aortic regurgitation. ++++++++++++++++++++++++++++++++++++ FINDINGS: ++++++++++++++++++++++++++++++++++++ LV: The left ventricular size is normal. The left ventricular systolic function is moderately depressed. Estimated left ventricular ejection fraction is 35-40%. RV: The right ventricular size is normal. Right ventricular systolic function is depressed. Right ventricular systolic pressure is 27 mmHg. A pacemaker wire is visualized in the right ventricle. TAPSE = 11mm (<16 mm indicates systolic RV dysfunction). LA: The left atrial size is mild to moderately enlarged. RA: Right atrial size is mild to moderately enlarged. A pacemaker wire is visualized in the right atrium. IAS: The agitated saline injection showed no clear evidence of shunting into the left atrium, consistent with no patent foramen ovale. SHAGGY: No evidence of pericardial effusion. AO: Aorta is normal. SVn: Inferior vena cava is normal. AV: The aortic valve is trileaflet. No evidence of aortic valve stenosis. Mild aortic regurgitation. MV: Structurally normal mitral valve. Calcified posterior mitral annulus. Moderate thickening of mitral valve leaflets. PV: The pulmonic valve is normal There is trace pulmonic regurgitation TV: The tricuspid valve appears structurally normal. There is trace tricuspid regurgitation. <Electronic Signature> 06/24/2024 05:21 AM Bruno Can M.D. Bruno Can MD ECHO Final Result * USV CAROTID DUPLEX JASPAL (06/20/2024 10:13 AM CDT) Anatomical Region Laterality Modality Neck Ultrasound 06/20/2024 9:55 AM CDT Narrative 06/21/2024 7:39 AM CDT [facility] Carotid Ultrasound Vascular Report Pat.Name: Sera Shaffer Pat.ID: [id number] .Date: 06/20/2024 [facility]00 AM Study Type:OUTREACH CAROTID SCAN BILATERAL Height: 63 in Age: 1 1935,89Y Sex: F Sonogrphr: Sf Pat. Stat.:Outpatient CPT - 4: 62774 Carotid Duplex Reason for Study:TIA (transient ischemic attack) Procedures: Study performed at [facility], [place], [place] and interpreted by [facility]. ++++++++++++++++++++++++++++++++++++ FINDINGS: ++++++++++++++++++++++++++++++++++++ Rt ICA: 0-39% stenosis with plaque noted in the internal carotid artery. Mild/moderate heterogeneous plaque noted. Rt ECA: Patent with antegrade flow noted in the external carotid artery. Rt Vert: Normal antegrade vertebral flow. Lt ICA: 0-39% stenosis with plaque noted in the internal carotid artery. Mild heterogeneous plaque noted. Lt ECA: Patent with antegrade flow noted in the external carotid artery. Lt Vert: Normal antegrade vertebral flow. Carotid Findings: Right Left Verteb.Flw Antegrade Antegrade ++++++++++++++++++++++++++++++++++++ MEASUREMENTS: ++++++++++++++++++++++++++++++++++++ DOPPLER Right Prox CCA Prox CCA PSV 47 cm/s Prox CCA EDV 9 cm/s Right Dist CCA Dist CCA PSV 53 cm/s Dist CCA EDV 18 cm/s Right Prox ICA Prox ICA PSV 67 cm/s Prox ICA EDV 18 cm/s Right Mid ICA Mid ICA PSV 48 cm/s Mid ICA EDV 12 cm/s Right Dist ICA Dist ICA PSV 57 cm/s Dist ICA EDV 16 cm/s Right Prox ECA Prox ECA PSV 55 cm/s Right Vertebral Vertebral PSV 57 cm/s Vertebral EDV 6 cm/s Right ICA/CCA RATIO ICA/CCA RATIO P 1.26 Left Prox CCA Prox CCA PSV 85 cm/s Prox CCA EDV 12 cm/s Left Dist CCA Dist CCA PSV 57 cm/s Dist CCA EDV 13 cm/s Left Prox ICA Prox ICA PSV 39 cm/s Prox ICA EDV 13 cm/s Left Mid ICA Mid ICA PSV 56 cm/s Mid ICA EDV 16 cm/s Left Dist ICA Dist ICA PSV 60 cm/s Dist ICA EDV 21 cm/s Left Prox ECA Prox ECA PSV 34 cm/s Left Vertebral Vertebral PSV 47 cm/s Vertebral EDV 11 cm/s Left ICA/CCA RATIO ICA/CCA RATIO P 1.05 <Electronic Signature> 06/21/2024 07:39 AM Nayla Deng M.D. Procedure Note Nayla Deng MD - 06/21/2024 Outreach Carotid Ultrasound Vascular Report Pat.Name: Sera Shaffer Pat.ID: [id number] .Date: 06/20/2024 Refer.MD: Hunter, [facility] Exam Time: 9:55:00 AM Study Type:OUTREACH CAROTID SCAN BILATERAL Height: 63 in Age: 1 1935,89Y Sex: F Sonogrphr: Pat. Stat.:Outpatient CPT - 4: 72721 Carotid Duplex Reason for Study:TIA (transient ischemic attack) Procedures: Study performed at [place], [place] and interpreted by [facility]. ++++++++++++++++++++++++++++++++++++ FINDINGS: ++++++++++++++++++++++++++++++++++++ Rt ICA: 0-39% stenosis with plaque noted in the internal carotid artery. Mild/moderate heterogeneous plaque noted. Rt ECA: Patent with antegrade flow noted in the external carotid artery. Rt Vert: Normal antegrade vertebral flow. Lt ICA: 0-39% stenosis with plaque noted in the internal carotid artery. Mild heterogeneous plaque noted. Lt ECA: Patent with antegrade flow noted in the external carotid artery. Lt Vert: Normal antegrade vertebral flow. Carotid Findings: Right Left Verteb.Flw Antegrade Antegrade ++++++++++++++++++++++++++++++++++++ MEASUREMENTS: ++++++++++++++++++++++++++++++++++++ DOPPLER Right Prox CCA Prox CCA PSV 47 cm/s Prox CCA EDV 9 cm/s Right Dist CCA Dist CCA PSV 53 cm/s Dist CCA EDV 18 cm/s Right Prox ICA Prox ICA PSV 67 cm/s Prox ICA EDV 18 cm/s Right Mid ICA Mid ICA PSV 48 cm/s Mid ICA EDV 12 cm/s Right Dist ICA Dist ICA PSV 57 cm/s Dist ICA EDV 16 cm/s Right Prox ECA Prox ECA PSV 55 cm/s Right Vertebral Vertebral PSV 57 cm/s Vertebral EDV 6 cm/s Right ICA/CCA RATIO ICA/CCA RATIO P 1.26 Left Prox CCA Prox CCA PSV 85 cm/s Prox CCA EDV 12 cm/s Left Dist CCA Dist CCA PSV 57 cm/s Dist CCA EDV 13 cm/s Left Prox ICA Prox ICA PSV 39 cm/s Prox ICA EDV 13 cm/s Left Mid ICA Mid ICA PSV 56 cm/s Mid ICA EDV 16 cm/s Left Dist ICA Dist ICA PSV 60 cm/s Dist ICA EDV 21 cm/s Left Prox ECA Prox ECA PSV 34 cm/s Left Vertebral Vertebral PSV 47 cm/s Vertebral EDV 11 cm/s Left ICA/CCA RATIO ICA/CCA RATIO P 1.05 <Electronic Signature> 06/21/2024 07:39 AM Nayla Deng M.D. Bruno Can MD [facility] Final Result * (ABNORMAL) LIPID PANEL (06/20/2024 8:45 AM CDT) Pathologist [facility] CHOLESTEROL 98 MG/DL 06/20/2024 12:27 PM CDT [facility] Comment:DESIRABLE: <200 TRIGLYCERIDES 61 MG/DL 06/20/2024 12:27 PM CDT [facility] Comment:<150 NORMAL HDL 36(L) >49 MG/DL 06/20/2024 12:27 PM CDT [facility] LDL-C 50 MG/DL 06/20/2024 12:27 PM CDT [facility] Comment:<100 OPTIMAL VLDL CALCULATION 12 MG/DL 06/21/19 12:27 PM CDT [facility] Comment:REFERENCE RANGE NOT ESTABLISHED CHOL/HDL RATIO 2.7 06/20/2024 12:27 PM CDT [facility] Comment:REFERENCE RANGE NOT ESTABLISHED LDL/HDL 1.4 06/20/2024 12:27 PM CDT [facility] Comment:REFERENCE RANGE NOT ESTABLISHED NON HDL CHOLESTEROL 62 MG/DL 06/20/2024 12:27 PM CDT [facility] Comment:REFERENCE RANGE NOT ESTABLISHED 06/20/2024 8:45 AM CDT Bruno Can MD LABORATORY Final Result [facility] [address] [place] [address], [id number] from Last 3 Months Insurance [facility] MEDICARE MEDICARE Advance Directives Documents on File Type Date Recorded Patient Seed Laboratory Assistant Expl anation Advance Directives and Living Will 12/18/2017 1:17 PM 05/30/14 POA- Advance Directives and Living Will 11/14/2014 SH[employer] POWER OF S[employer]IOR REGULATORY AFFAIRS SPECIALIST Advance Directives and Living Will 11/14/2014 SHORT FORM POWER OF SENIOR REGULATORY AFFAIRS SPECIALIST Advance Directives and Living Will 06/24/2014 SHORT FORM POWER OF SENIOR REGULATORY AFFAIRS SPECIALIST Advance Directives and Living Will 06/24/2014 SHORT FORM POWER OF SENIOR REGULATORY AFFAIRS SPECIALIST * Full Code (Latest Code Status on File) Date Activated Date Inactivated Comments 11/06/2020 2:12 PM 11/07/2020 3:12 PM * Full Code Date Activated Date Inactivated Comments 03/28/2019 12:19 AM 04/02/2019 2:04 PM * Full Code Date Activated Date Inactivated Comments 01/28/2019 11:01 PM 02/04/2019 2:55 PM Care Teams Bait Digger Relationship Specialty Start Date End Date TamiQasim DO [address] [place] [address] PCP - General FAMILY PRACTICE 04/13/19 Mary Barber MD [address] [place] [address] EP Math Teacher CLINICAL CARDIAC ELECTROPHYSIOLOGY 09/15/16 Erick Abdi MD [address] [place] [address] Consulting Physician PAIN MANAGEMENT 09/06/20 Jim Tamez MD [address] [place] [address] Consulting Physician INTERNAL MEDICINE 09/10/23 Monique Iverson NP [address] [address] Nurse Practitioner Nurse Practitioner Acute Care 03/07/24 Bruno Can MD [address] [address] Physician INTERVENTIONAL CARDIOLOGY 04/15/24
--- OUTSIDE RECORDS SUMMARY | 2024-09-12 07:55 | XMS_ITS | Patient Health Record ---
Author Organization [facility] Address [address] [place], [place] [id number] Care Team Providers Care Correction Officer Reformatory Name Role Phone Qasim Garrett Unavailable Unavailable GILA CERVANTES Unavailable [phone] RANDY FLOWERS Unavailable [phone] Allergies Allergen (clinical drug ingredient) Drug/Non Drug Allergy documented on EMR Reaction Allergy Type Onset Date Status Opioid Analgesics (uncoded) Unknown Allergy 10/17/2021 active Substance with penicillin structure and antibacterial mechanism of action (substance) Penicillins Unknown Drug Allergy 10/17/2021 active Reason For Referral No Information Encounters Encounter Location Date Provider Diagnosis [address] [id number] 01/21/2024 RANDY FLOWERS Other hammer toe(s) (acquired), right foot M20.41 ; Tinea unguium B35.1 ; Other hammer toe(s) (acquired), left foot M20.42 ; Pain in right toe(s) M79.674 ; Pain in left toe(s) M79.675 ; Unspecified atherosclerosis of [place] arteries of extremities, bilateral legs I70.203 ; Acquired keratosis [keratoderma] palmaris et plantaris L85.1 and Localized edema R60.[address] [id number] 09/17/2023 RANDY FLOWERS Other hammer toe(s) (acquired), right foot M20.41 ; Tinea unguium B35.1 ; Other hammer toe(s) (acquired), left foot M20.42 ; Pain in right toe(s) M79.674 ; Pain in left toe(s) M79.675 and Unspecified atherosclerosis of [place] arteries of extremities, bilateral legs I70.[address] [id number] 11/19/2023 RANDY FLOWERS Other hammer toe(s) (acquired), right foot M20.41 ; Tinea unguium B35.1 ; Other hammer toe(s) (acquired), left foot M20.42 ; Pain in right toe(s) M79.674 ; Pain in left toe(s) M79.675 ; Unspecified atherosclerosis of [place] arteries of extremities, bilateral legs I70.203 ; [...] (ICD-10 - M79.675) 11/19/2023 Unspecified atherosclerosis of [place] arteries of extremities, bilateral legs (ICD-10 - I70.203) Patient educated on risks and aggravating factors of PVD, including conservative treatment options such as a diet and exercise regimen to aid in slowing progression of vascular disease 09/17/2023 Unspecified atherosclerosis of [place] arteries of extremities, bilateral legs (ICD-10 - I70.203) Patient educated on risks and aggravating factors of PVD, including conservative treatment options such as a diet and exercise regimen to aid in slowing progression of vascular disease 01/21/2024 Unspecified atherosclerosis of [place] arteries of extremities, bilateral legs (ICD-10 - [...] Medicare Part B [place] [address] [place] [address] [id number] OVID, [place] Self - patient is the insured [facility] Insurance [address] [address] [place] [address] [id number] [place], [place] Self - patient is the insured
[2024-09-12 08:15] LABS: Hematocrit 40.7 % (35.0-42.0); Hemoglobin 13.0 g/dL (11.7-13.8); Immature Granulocyte Percent A 0.2 % (0.0-0.0); Lymphocytes Absolute Auto 1.73 K/mm3 (1.10-4.50); Mean Corpuscular HGB Conc 31.9 g/dL (32-36); Mean Corpuscular Hemoglobin 32.4 pg (27.0-31.0); Mean Corpuscular Volume 101.5 fL (78.0-102.0); Nucleated Red Blood Cells Absolute Auto 0.00 K/mm3 (0.00-0.00); Nucleated Red Blood Cells Perc 0.0 % (0-0.0); Platelet Count Result 136 K/mm3 (150-420); Red Blood Count 4.01 M/mm3 (4.20-5.40); White Blood Count 5.0 K/mm3 (4.8-10.8)
[2024-09-12 08:48] LABS: Iron 61 ug/dL (37-170)
[2024-09-12 08:57] LABS: Percent Iron Saturation 17 % (20-50)
[2024-09-12 09:43] LABS: Albumin Level 4.1 g/dL (3.5-5.1); Anion Gap 9 mmol/L (4-12); Blood Urea Nitrogen 30 mg/dL (7-17); Calcium 8.9 mg/dL (8.4-10.2); Carbon Dioxide 27 mmol/L (22-30); Chloride 106 mmol/L (98-107); Estimated Glomerular Filt Rate > 60; Glucose 87 mg/dL (65-110); Osmolality Calculated 299 mOsm/kg (285-295); Potassium 4.0 mmol/L (3.4-5.0); Sodium 142 mmol/L (137-145)
[2024-09-12 09:44] LABS: Total Protein Urine Random 17 mg/dL; Ur Ttl Prot Creatinine Ratio 0.61 mg/mg (0-0.20)
[2024-09-13 15:09] LABS: Albumin 3.5 g/dL (2.9-4.4); Alpha-1-Globulin 0.2 g/dL (0.0-0.4); Alpha-2-Globulin 0.7 g/dL (0.4-1.0); Gamma Globulin 1.3 g/dL (0.4-1.8)
== END 2024-09-12 07:49 | disposition home or self-care (01) ==
LOC: CHSLAB 07:49
PROVIDERS: Nurse Practitioner Family; PCP Family Medicine; Visit Provider Internal Medicine Nephrology
DX: D50.9 Iron deficiency anemia, unspecified (principal); R80.9 Proteinuria, unspecified; I10 Essential (primary) hypertension
CPT/HCPCS: 36415; 80069; 82570; 83540; 83550; 84155; 84156; 84165; 84166; 85025; 86036; 86037; 86160; 86225

== ENCOUNTER 2024-12-07 13:30 | Outpatient (RCR) | payer MEDICARE, SELFPAY ==
--- NOTE | 2024-12-07 13:56 | WNDPHOTO ---
PHOTO ONLY - See Nursing Notes and/ or assessments for documentation.
[2024-12-07 14:16] VITALS: BMI 25.5
== END 2025-01-24 10:27 | disposition home or self-care (01) ==
LOC: ANHWOC 13:30
PROVIDERS: PCP Family Medicine; Visit Provider Family Medicine
DX: L98.9 Disorder of the skin and subcutaneous tissue, unspecified (principal)
CPT/HCPCS: 99214; G0463